=== PATIENT | male | born 1965 | race Caucasian/White ===

== ENCOUNTER 2023-03-06 05:20 | Inpatient (IN) ==
--- NOTE | 2023-03-06 05:31 | Emergency Department Note ---
History of Present Illness General Chief complaint: Chest Pain Stated complaint: CHEST TIGHTNESS Time Seen by Provider: 03/06/23 05:29 History of Present Illness This 57-year-old male patient presents to the emergency department for evaluation of chest pain. He reports frontal chest tightness and pressure that woke him from sleep at 3 AM. He states that the symptoms resolved since coming to the ER. He states that he is a smoker and is typically short of breath with a cough at baseline. He does not use his albuterol inhaler very often because it does not work for him per patient. No change in his baseline cough and SOB per patient. The chest pain is new and abnormal. No fevers or URI symptoms. Has not taken any aspirin today. Not on any blood thinners. Denies abdominal pain, nausea, or vomiting. Denies any other symptoms. Does not take any erectile dysfunction medications. Denies previous cardiac problems. Has never had a cardiac workup per patient. Grandfather with DE and heart problems. Mother and father and siblings without heart problems. 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 The patient denies recent injury/trauma/surgery. Denies any personal or family history of blood clots or bleeding disorders. Denies any hormonal medication use. Denies any hemoptysis or calf pain/swelling. Home Medications Medication Instructions Recorded Confirmed Type albuterol sulfate 90 mcg/actuation 2 puff inhalation Q4H PRN 08/15/20 07/29/22 History aerosol inhaler Shortness Of Breath Or Wheezing lisinopril 10 mg tablet 10 mg PO QAM 08/15/20 07/29/22 History hydrochlorothiazide 25 mg tablet 25 mg PO QAM 06/24/21 07/29/22 History ibuprofen 200 mg tablet (Advil) 400 mg PO Q6H PRN Pain 06/24/21 07/29/22 History gabapentin 100 mg capsule 100 mg PO TID 07/29/22 07/29/22 History Allergies Allergy/AdvReac Type Severity Reaction Status Date / Time No Known Allergies Allergy Verified 07/29/22 15:31 Past Med/Surg History Medical History Asthma Stable Chronic obstructive pulmonary disease Stable History of shingles 05/2022, currently still taking gabapentin for chronic right eye irritation/pain from shingles Hx of seasonal allergies Hypertension Spinal stenosis Surgical History History of back surgery History of esophagogastroduodenoscopy (EGD) Hx of arthroscopic knee surgery Left Hx of foot surgery Left Hx of inguinal hernia repair Social History Smoking Status: Current every day smoker Tobacco Type: Cigarettes Cigarettes Per Day: 30 cigs/day; Second Hand Exposure: No; Do You Dip or Chew Tobacco: No (Quit 10+ years ago); Hx Alcohol Use: Yes Alcohol type: beer Hx Substance Use: No Preferred Language: Amharic Communication Ability: Effective Formulation Chemist Required: No Beliefs That Will Affect Care: None Current Living Situation: Alone Current Living Situation Comment: mom lives in own portion of the home Feels Safe at Home: Yes Assistive Devices: Glasses Review of Systems See HPI for pertinent positives & negatives. Physical Exam Vital Signs Vital Signs - 24 hr 03/06/23 05:24 03/06/23 05:45 03/06/23 06:34 Temperature 36.6 C Temperature Source Temporal Artery Scan Pulse Rate 120 H 106 H Pulse Rate [Apical] 94 H Respiratory Rate 16 20 Respiratory Effort / Characteristics Non-Labored Respiratory Depth Normal Blood Pressure 135/84 Blood Pressure [Right Arm] 169/112 H Blood Pressure Mean 101 Blood Pressure Mean [Right Arm] 131 Pulse Oximetry 96 95 Oxygen Delivery Method Room Air Room Air Sepsis Recent Fever Within 48 Hours No Sepsis New/Unexplained Change in Mental Status No Sepsis Action Taken by Nursing No Action Required 03/06/23 06:37 Temperature Temperature Source Pulse Rate 99 H Pulse Rate [Apical] Respiratory Rate 20 Respiratory Effort / Characteristics Respiratory Depth Blood Pressure Blood Pressure [Right Arm] Blood Pressure Mean Blood Pressure Mean [Right Arm] Pulse Oximetry 97 Oxygen Delivery Method Room Air Sepsis Recent Fever Within 48 Hours Sepsis New/Unexplained Change in Mental Status Sepsis Action Taken by Nursing Vital Signs: Vitals are noted on the nurse's note and reviewed by myself. GENERAL: Non toxic in appearance and in no acute distress. SKIN: The skin was without obvious rashes, erythema, edema, or bruising. Capillary reflex less than 2 seconds. HEAD: Normocephalic, atraumatic. EARS: External auditory canals clear, tympanic membrane pearly mendoza without er ythema or effusion. No tragus tenderness. No mastoid tenderness. EYES: Pupils equal round and reactive to light and accommodation. Conjunctivae without injection, sclerae without icterus. Extraocular movements intact. NOSE: Patent, turbinates inflamed with no discharge. No sinus tenderness. MOUTH: Mucous membranes moist. Airway patent, uvula midline. Tonsils are not enlarged and not erythematous without exudate. Pharynx without postnasal drip. No evidence for peritonsillar abscess. NECK: Supple without nuchal rigidity. No lymphadenopathy. HEART: Tachycardia without murmurs gallops or rubs. LUNGS: Clear to auscultation bilaterally without wheezes, rales or rhonchi. No accessory muscle use or retractions. ABDOMEN: Positive bowel sounds x 4. Normal tympanic percussion. Soft, nontender, without masses or organomegaly. Negative Pete sign. No guarding or rigidity. NEURO: Patient was alert and oriented to person place and time. Course Administered Medications Discontinued Medications Aspirin (Aspirin Chew 324 Mg) 324 mg PO NOW STA Stop: 03/06/23 05:48 Last Admin: 03/06/23 05:53 Dose: 324 mg Documented By: LINDA Sodium Chloride (Nss) 500 mls @ 999 mls/hr IV .Q31M STA Stop: 03/06/23 06:17 Last Infusion: 03/06/23 06:33 Dose: 0 mls/hr Documented By: Admin: 03/06/23 05:54 Dose: 999 mls/hr Documented By: LINDA Ioversol (Optiray 320 125ml) 120 ml IV ONCE ONE Stop: 03/06/23 07:31 Last Admin: 03/06/23 07:30 Dose: 120 ml Documented By: FERCHO Medical Decision Making Differential Diagnosis Differential diagnosis includes angina, DE, pericarditis, myocarditis, aortic dissection, pleurisy, pneumothorax, PE, pneumonia, pneumomediastinum, esophagitis, esophageal spasm, GERD, perforated esophagus, perforated duodenal/gastric ulcer, pancreatitis, cholecystitis, costochondritis, musculoskeletal, bronchitis, URI, or others. Laboratory Data Attestation: I reviewed the patient's lab results. 03/06/23 05:30 03/06/23 05:30 Lab Results 06/16/23 06/16/23 06/16/23 Range/Units 05:30 05:30 05:30 WBC 6.36 (4.8-10.8) K/ul RBC 3.88 L (4.70-6.10) M/uL Hgb 14.3 (14.0-18.0) g/dl Hct 40.8 L (42.0-52.0) % MCV 105.2 H (80.0-100.0) fL MCH 36.9 H (25.0-34.0) pg MCHC 35.0 (32.0-36.0) g/dL RDW Std Deviation 49.1 H (36.4-46.3) fL RDW Coeff of Rogelio 12.7 (11.5-14.5) % Plt Count 271 (130-400) K/uL MPV 9.7 (9.4-12.4) fL Immature Gran % (Auto) 0.5 % Neut % (Auto) 59.5 % Lymph % (Auto) 27.2 % [place] % (Auto) 10.2 % Eos % (Auto) 1.7 % Baso % (Auto) 0.9 % Neut # (Auto) 3.78 (1.40-6.50) K/uL Lymph # (Auto) 1.73 (1.2-3.4) K/uL [place] # (Auto) 0.65 H (0.11-0.59) K/uL Eos # (Auto) 0.11 (0-0.50) K/uL Baso # (Auto) 0.06 (0-0.2) K/uL Immature Gran # (Auto) 0.03 (0.01-0.20) K/uL PT 10.1 (9.0-12.0) Seconds INR 0.9 (0.9-1.1) APTT 23.4 (21.0-31.0) Seconds PTT Ratio 0.8 Sodium TNP Potassium TNP Chloride 105 (98-107) mmol/L Carbon Dioxide 21 (21-32) mmol/L Anion Gap TNP BUN 14 (6-23) mg/dl Creatinine 1.21 (0.6-1.4) mg/dl Est Cr Clr Drug Dosing 86.6 ml/min Est GFR ( Amer) 75.5 ml/min Est GFR (Non-Af Amer) 65.1 ml/min BUN/Creatinine Ratio 11.6 (10-20) Glucose 94 (70-99(Fasting)) mg/dl Calcium 9.3 (8.6-10.3) mg/dl Total Bilirubin 0.4 (0.2-1.0) mg/dl AST TNP ALT 50 (7-52) U/L Alkaline Phosphatase 67 (34-104) U/L Troponin I High Sens 19.5 (0-20) pg/ml Total Protein 7.7 (6.0-8.3) gm/dl Albumin 4.1 (3.4-5.0) gm/dl Globulin 3.6 (2.5-4.0) gm/dl Albumin/Globulin Ratio 1.1 (0.9-2) Lipase 63 (11-82) U/L SARS-CoV-2 (PCR) (Negative) Influenza Type A (PCR) (Neg) Influenza Type B (PCR) (Neg) RSV (RT-PCR) (Neg) 03/06/23 Range/Units 05:55 WBC (4.8-10.8) K/ul RBC (4.70-6.10) M/uL Hgb (14.0-18.0) g/dl Hct (42.0-52.0) % MCV (80.0-100.0) fL MCH (25.0-34.0) pg MCHC (32.0-36.0) g/dL RDW Std Deviation (36.4-46.3) fL RDW Coeff of Rogelio (11.5-14.5) % Plt Count (130-400) K/uL MPV (9.4-12.4) fL Immature Gran % (Auto) % Neut % (Auto) % Lymph % (Auto) % [place] % (Auto) % Eos % (Auto) % Baso % (Auto) % Neut # (Auto) (1.40-6.50) K/uL Lymph # (Auto) (1.2-3.4) K/uL [place] # (Auto) (0.11-0.59) K/uL Eos # (Auto) (0-0.50) K/uL Baso # (Auto) (0-0.2) K/uL Immature Gran # (Auto) (0.01-0.20) K/uL PT (9.0-12.0) Seconds INR (0.9-1.1) APTT (21.0-31.0) Seconds PTT Ratio Sodium Potassium Chloride (98-107) mmol/L Carbon Dioxide (21-32) mmol/L Anion Gap BUN (6-23) mg/dl Creatinine (0.6-1.4) mg/dl Est Cr Clr Drug Dosing ml/min Est GFR ( Amer) ml/min Est GFR (Non-Af Amer) ml/min BUN/Creatinine Ratio (10-20) Glucose (70-99(Fasting)) mg/dl Calcium (8.6-10.3) mg/dl Total Bilirubin (0.2-1.0) mg/dl AST ALT (7-52) U/L Alkaline Phosphatase (34-104) U/L Troponin I High Sens (0-20) pg/ml Total Protein (6.0-8.3) gm/dl Albumin (3.4-5.0) gm/dl Globulin (2.5-4.0) gm/dl Albumin/Globulin Ratio (0.9-2) Lipase (11-82) U/L SARS-CoV-2 (PCR) NEGATIVE (Negative) Influenza Type A (PCR) Negative (Neg) Influenza Type B (PCR) Negative (Neg) RSV (RT-PCR) Negative (Neg) MDM Narrative I examined the patient. An IV lock was placed and labs were drawn. He was given 500 mL normal saline solution bolus. He was given aspirin 324 mg p.o. chewed. The chest pain started at 3 AM, but had resolved by the time he presented to the emergency department. EKG was interpreted by myself as sinus tachycardia at 115 beats per minute with left axis deviation and right bundle branch block, but no acute ST or T wave changes. Continuous monitoring and evaluation advisor: Or messi was placed for continuous monitoring and evaluation advisor. Patient was placed on the monitoring and evaluation advisor and continuous pulse ox. Patient was noted to be in sinus tachycardia at an initial rate of 120 bpm per my interpretation. CBC without leukocytosis or anemia. Coags normal. CMP without acute abnormalities, but redraw of electrolytes still pending. Lipase normal. COVID, influenza, and RSV are negative. First high-sensitivity troponin normal. The patient was tachycardic upon arrival with new onset of chest pain with history of chronic cough and shortness of breath. 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 There is concern for PE. Therefore, CTA of the chest with contrast was ordered. Repeat high-sensitivity troponin was also ordered. However, due to change of shift, the patient's care was transferred to Hamida Nix PA-C. Please refer to her dictation for further details. The patient's care was transferred in stable condition. Impression & Plan Chest pain Discharge Plan Visit Data Chief Complaint: Chest Pain Stated Complaint: CHEST TIGHTNESS ED Provider: Eliana Bryan ED Midlevel Provider: David Nix Discharge Problem: Chest pain Forms Stand Alone Forms: [email or web address] Prescriptions Prescriptions: No Action lisinopril 10 mg tablet 10 mg PO QAM albuterol sulfate 90 mcg/actuation HFA aerosol inhaler 2 puff inhalation Q4H PRN (Reason: Shortness Of Breath Or Wheezing) hydrochlorothiazide 25 mg tablet 25 mg PO QAM ibuprofen [Advil] 200 mg Tablet 400 mg PO Q6H PRN (Reason: Pain) gabapentin 100 mg Capsule 100 mg PO TID Referrals Referrals: Omer Wayne MD [Primary Care Provider] -
[2023-03-06] MEDS ORDERED: SODIUM CHLORIDE 0.9% 500 ML IV STA (05:47)
[2023-03-06] MEDS ORDERED: ASPIRIN CHEW 324 MG PO STA (05:47)
[2023-03-06 06:29] LABS: Basophils # (auto) 0.06 K/uL (0-0.2); Basophils % (auto) 0.9 %; Eosinophils # (auto) 0.11 K/uL (0-0.50); Eosinophils % (auto) 1.7 %; Hematocrit (blood only) 40.8 % (42.0-52.0); Hemoglobin 14.3 g/dl (14.0-18.0); Immature Granulocytes # (auto) 0.03 K/uL (0.01-0.20); Immature Granulocytes % (auto) 0.5 %; Lymphocytes # (auto) 1.73 K/uL (1.2-3.4); Lymphocytes % (auto) 27.2 %; Mean Corpuscular Hemoglobin 36.9 pg (25.0-34.0); Mean Corpuscular Volume 105.2 fL (80.0-100.0); Mean Platelet Volume 9.7 fL (9.4-12.4); Monocytes # (auto) 0.65 K/uL (0.11-0.59); Monocytes % (auto) 10.2 %; Neutrophils # (auto) 3.78 K/uL (1.40-6.50); Neutrophils % (auto) 59.5 %; Platelet Count 271 K/uL (130-400); RDW Coefficient of Variation 12.7 % (11.5-14.5); RDW Standard Deviation 49.1 fL (36.4-46.3); Red Blood Count 3.88 M/uL (4.70-6.10); White Blood Count 6.36 K/ul (4.8-10.8)
[2023-03-06 06:47] LABS: Influenza A virus by PCR Negative (Neg); Influenza B virus by PCR Negative (Neg); RSV by PCR Negative (Neg); SARS CoV2 RNA(COVID-19) Ceph NEGATIVE (Negative)
[2023-03-06 06:56] LABS: INR 0.9 (0.9-1.1); Partial Thromboplastin Ratio 0.8; Partial Thromboplastin Time 23.4 Seconds (21.0-31.0); Prothrombin Time 10.1 Seconds (9.0-12.0)
[2023-03-06 07:08] LABS: Alanine Aminotransferase 50 U/L (7-52); Albumin Globulin Ratio 1.1 (0.9-2); Albumin Level 4.1 gm/dl (3.4-5.0); Alkaline Phosphatase 67 U/L (34-104); BUN Creatinine Ratio 11.6 (10-20); Bilirubin,Total 0.4 mg/dl (0.2-1.0); Blood Urea Nitrogen 14 mg/dl (6-23); Calcium 9.3 mg/dl (8.6-10.3); Carbon Dioxide 21 mmol/L (21-32); Chloride 105 mmol/L (98-107); Creatinine Clr Calc Pharmacy 86.6 ml/min; Est GFR (African American) 75.5 ml/min; Est GFR (Non-African American) 65.1 ml/min; Globulin 3.6 gm/dl (2.5-4.0); Glucose 94 mg/dl (70-99(Fasting)); Lipase 63 U/L (11-82); Total Protein 7.7 gm/dl (6.0-8.3); Troponin I High Sensitivity 19.5 pg/ml (0-20)
[2023-03-06] MEDS ORDERED: OPTIRAY 320 125ml IV ONE (07:30)
--- NOTE | 2023-03-06 07:30 | Emergency Department Note ---
ED Visit Note ED note: Received this patient in signout at change of shift at 0720 from Pricilla Beck PA-C. Briefly patient is a 57-year-old male with past medical history significant for hypertension, tobacco abuse, COPD, who presents emergency department for evaluation of chest pain. Pain reportedly woke him from sleep around 0300. Please refer to her dictation for the complete history, physical exam and ED course to this point. Initial troponin was within normal limits. At change of shift, repeat 2-hour troponin and CTA of the chest were is pending. Chest CT per my interpretation shows no evidence for pulmonary embolus. Emphysematous changes are noted and stable pulmonary nodules which do not require follow-up. Laboratory studies were reviewed. A few of his electrolytes needed to be recollected, and on my interpretation of the repeat studies, no significant electrolyte imbalance noted. Normal renal functions. No significant transami nitis. His repeat high-sensitivity troponin was elevated at 84.5, up from 19.5 on initial. Patient was reviewed with attending physician, Dr. Bryan, heparin was ordered. Test results were discussed with the patient, and admission/observation for further cardiac work-up was recommended. He was in agreement. Case discussed with ED supervisor case loading and consultation placed with the [facility] service. Patient was reviewed with Yenny Arvizu PA-C for further care and managment. Repeat EKG at 0849 per my interpretation did not show any evidence for acute ischemic changes. It is unchanged from initial EKG from 0530. DIAGNOSIS: Precordial chest pain, elevated troponin Risk - HEART Scoring HEART Score for Major Cardiac Events History: Slightly Suspicious EKG: Normal Age: 45-64 Years of Age Risk Factors: >2 Risk Factors Initial Troponin: Normal Limit Total Points: 3 Risk Level: Low Risk for Major Adverse Cardiac Event HEART Score Interpretation: Score interpretation (as per derivation study): HEART Adverse Cardiac Score Event Risk Management 0-3 0.9-1.7% In the HEART Score study, these patients were discharged. 4-6 12-16.6% In the HEART Score study, these patients were admitted to the hospital. 7-10 50-65% In the HEART Score study, these patients were candidates for early invasive measurements. Original Source: 1. Oswaldo AJ, Johnny BE, Adis BARON. Chest pain in the emergency room: value of the HEART score. Neth Heart J. 2008; 16(6):191-6.
--- NOTE | 2023-03-06 07:51 | CT Scan Report ---
CT angio chest PE protocol CLINICAL HISTORY: Chest Pain, eval for PE TECHNIQUE: Multidetector row helical CT of the chest was performed with angiographic protocol. Agustin l and sagittal reformations were obtained. Coronal and sagittal MIPS were obtained from the axial zandra a set and were submitted for review. Automated dose lowering techniques and/or adjustment according to patient size were utilized for this exam. Comparison: Comparison is made to CT chest 06/24/2021 FINDINGS: Lungs and pleura: Diffuse centrilobular emphysema is seen most prominent in the upper lobes. Interval stability of a 4 mm nodule in the left lung base (series 5 image 9) and a 6 mm nodule in the right l ower lobe (image 91). Heart and pericardium: Heart size is normal. No pericardial effusion. Vessels: No evidence of pulmonary embolism. Ascending aorta is mildly prominent measuring up to 42 mm . Mediastinum and ashley: Unremarkable. Chest wall and lower neck: Unremarkable. Abdomen: A hiatal hernia is seen. Bones: Degenerative changes in the thoracic spine. IMPRESSION: 1. No pulmonary embolus is seen. 2. Emphysema. Stable pulmonary nodules which do not require follow-up by Fleischner criteria. 3. Additional findings as above. ACT 112: Negative or not required by law. Electronically signed by: Sma Mayorga M.D. 03/06/2023 7:48 AM
[2023-03-06 08:32] LABS: Troponin I High Sensitivity 84.5 pg/ml (0-20)
[2023-03-06] MEDS ORDERED: Heparin IV Adult Wt-Based Low-Dose WITH Bolus Protocol STA (08:42)
[2023-03-06] MEDS ORDERED: HEPARIN SOD (PORCINE) 1000 UNIT/ML IV ONE ×3 (08:57→15:35)
[2023-03-06] MEDS: HEPARIN SODIUM/DEXTROSE 25,000 UNITS/500 ML BAG IV SCH (09:06)
--- NOTE | 2023-03-06 09:42 | History & Physical Report ---
Date of Service March 06, 2023 Assessment & Plan (1) Chest pain: (2) Hypertension: Plan: - Admit to tele for observation for r/o - Trend cardiac biomarkers, initial set was negative 19-->85, started on heparin gtt in the ER, cont - EKG reviewed as above - Check 2 D echo - Cardiology consulted - Dr. Marlow - BP is currently elevated at 170/113, will give Lopressor 2.5 mg IV and resume HCTZ 25 mg and lisionpril 10 mg now, start metoprolol 12.5 mg p.o. twice daily pending cardiology recommendations - Baby aspirin ordered daily, received 325 mg today, give atorvastatin 80 mg now for plaque stabilization - Check A1c and lipid panel with a.m. labs for risk stratification - PT/OT consulted (3) Chronic obstructive pulmonary disease: (4) Tobacco dependence: Plan: - CTA chest completed showing emphysema, no PE, stable pulmonary nodules. - Tobacco cessation counseled at bedside, patient reports he has quit cold turkey with smoking cigarettes previously, can consider nicotine patch tomorrow if necessary, hold for now due to being a vasoconstrictor and here for acute chest heaviness and ACS rule out - Consider pulmonary follow-up as an outpatient - Patient will require refill on albuterol inhaler at time of discharge as he is currently out at home (5) Obesity (BMI 30.0-34.9): Plan: -Lifestyle, diet, exercise modification discussed at the bedside, patient reports that he is not physically active at all and would benefit from 20 minutes walking per day -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 Encouraged him to meal prep at least 2 meals on weekends to aid in healthy meals during the week due to work schedule. DVT ppx: - teds, scds, heparin drip CODE: Full code Dispo: From home, likely to remain in the hospital x 1-2 days A total of 75 minutes were spent with greater than 50% of that time face to face with the patient, personally reviewing all current laboratories, imaging studies, past medication reconciliation, outpatient chart review, and discussion with specialists to collaborate care for the patient with attending. Please see attending documentation for corrections and/or additions. History of Present Illness Chief Complaint: Chest heaviness Primary Care Provider: Omer Wayne MD This is a 57 you M with PMHx of HTN, HLD, peripheral neuropathy, hx shingles involving the R eye, Chronic lumbar back pain, who presents with chest heaviness which started at 0330, nonradiating and was not associated with shortness of breath. It scared him and he presented here. He has had chest pain before but not sought out medical attention. He decided this pain was bad enough that he did not want to try driving a truck to work to [employer] today. Pt notes that he is chronically short of breath with minimal activities within the past year. He does smoke 1 pack/day, has smoked since age 10. Last July he quit for 2 months due to anticipated back surgery however his insurance then denied coverage of the surgery, and he resumed smoking, currently back up to 1 pack/day. He states possibly having COVID about a year ago, he was not formally tested but feels that his breathing has not been good since that timeframe. He does not require any supplemental O2, does not use any inhalers as he previously had an albuterol inhaler but ran out of it. He also admits to being out of HCTZ since this past Thursday, and has noticed increased swelling in his legs bilaterally. 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 Pt reports that he has chronic back pain which is off and on, notes that when he stands on his left leg for more than 5 minutes it becomes numb. Most recently has fallen about 2 months ago, and the first time he fell was last June. He has had lumbar spinal surgery in 2010, has had a left foot bunion surgery, and reports that when he fell he thinks he may have injured his foot again. He denies any recent falls. Pt notes he is also out of gabapentin and was using it for hx of shingles on his right forehead and R eye pain, postherpetic pain bothers him daily. Patient lives at home with his mom who is 85. Family Hx: Denies Denies Family Hx of cancer, stroke Father: high blood pressure Social Hx: smokes 1ppd since age 10, previously quit for 2 months in Nov to have back surgery, however his insurance denied it and he did not ultimately have that surgery done. Admits to drinking alcohol on weekends-does not elaborate. Allergies Allergy/AdvReac Type Severity Reaction Status Date / Time No Known Allergies Allergy Verified 07/29/22 15:31 Home Medications Medication Instructions Recorded Confirmed Type albuterol sulfate 90 mcg/actuation 2 puff inhalation Q4H PRN 08/15/20 03/06/23 History aerosol inhaler Shortness Of Breath Or Wheezing lisinopril 10 mg tablet 10 mg PO QAM 08/15/20 03/06/23 History hydrochlorothiazide 25 mg tablet 25 mg PO QAM 06/24/21 03/06/23 History ibuprofen 200 mg tablet (Advil) 400 mg PO Q6H PRN Pain 06/24/21 03/06/23 History gabapentin 100 mg capsule 100 mg PO TID 07/29/22 03/06/23 History Past Med/Surg History Medical History Asthma Stable Chronic obstructive pulmonary disease Stable History of shingles 05/2022, currently still taking gabapentin for chronic right eye irritation/pain from shingles Hx of seasonal allergies Hypertension Spinal stenosis Surgical History History of back surgery History of esophagogastroduodenoscopy (EGD) Hx of arthroscopic knee surgery Left Hx of foot surgery Left Hx of inguinal hernia repair Social History Smoking Status: Current every day smoker Tobacco Type: Cigarettes Cigarettes Per Day: 30 cigs/day; Second Hand Exposure: No; Do You Dip or Chew Tobacco: No; Tobacco Cessation Education Requested by Patient: No Hx Alcohol Use: Yes Alcohol type: beer Hx Substance Use: No Preferred Language: Lithuanian Communication Ability: Effective 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 Beliefs That Will Affect Care: None Current Living Situation: Family Current Living Situation Comment: mom lives in own portion of the home Feels Safe at Home: Yes Safety Concerns: Feels Safe At This Time Assistive Devices: None Review of Systems Review of Systems: Constitutional: No fever, sweats or chills Eyes: No diplopia, no worsening or blurred vision ENT: normal hearing, no trouble swallowing Respiratory: + Chronic cough, no sputum, dyspnea at rest or on exertion Cardiovascular: As per HPI, no current chest pain, tightness or palpitations Abdomen: No pain, nausea, vomiting, diarrhea or constipation Musculoskeletal: No joint pain, calf pain, + bilateral lower leg swelling Neurologic: No weakness, numbness/tingling, or balance problems Psychiatric: No anxiety or depression Skin: No rash or itch Physical Exam Physical Exam: General: awake, alert, no apparent distress, obese with BMI of 32.9 Head: Normocephalic, atraumatic ENT: PERRL, EOMI, no pharyngeal exudate, mucous membranes moist Chest: Clear to auscultation, chest pain is nonreproducible on palpation, on room air, no adventitious breath sounds Cardiac: Sinus tach with heart rate in the 90s, no murmur, no JVD, normal peripheral pulses, good capillary refill Abdominal: NABS x 4 quadrants, soft, nondistended, nontender to palpation, no rebound or guarding Extremities: Normal inspection, 1+ peripheral edema bilaterally, no erythema, calfs nontender to palpation Psych: Anxious mood and affect Neuro: AAO x 3, strength intact bilaterally and rated 5/5, no motor deficits, speech is clear, no peripheral sensory deficits Results & Data Results & Data Vital Signs (Past 12 Hours) Vital Signs Temp Pulse Pulse Resp BP BP Pulse Ox 03/06/23 09:10 98 H 14 03/06/23 09:00 86 19 03/06/23 09:00 175/108 H 03/06/23 08:50 91 H 17 96 03/06/23 08:40 103 H 19 03/06/23 08:30 91 H 21 96 03/06/23 08:00 88 16 154/98 H 96 03/06/23 07:00 98 H 23 137/103 H 97 03/06/23 06:37 99 H 20 97 03/06/23 06:34 94 H 20 169/112 H 95 03/06/23 05:45 106 H 03/06/23 05:24 36.6 C 120 H 16 135/84 96 O2 Del Method 03/06/23 09:10 03/06/23 09:00 03/06/23 09:00 03/06/23 08:50 03/06/23 08:40 03/06/23 08:30 03/06/23 08:00 03/06/23 07:00 03/06/23 06:37 Room Air 03/06/23 06:34 Room Air 03/06/23 05:45 03/06/23 05:24 Room Air Laboratory Results 03/06/23 03/06/23 03/06/23 07:07 07:07 05:55 WBC RBC Hgb Hct MCV MCH MCHC RDW Std Deviation RDW Coeff of Rogelio Plt Count MPV Immature Gran % (Auto) Neut % (Auto) Lymph % (Auto) [place] % (Auto) Eos % (Auto) Baso % (Auto) Neut # (Auto) Lymph # (Auto) [place] # (Auto) Eos # (Auto) Baso # (Auto) Immature Gran # (Auto) PT INR APTT PTT Ratio Sodium 135 L Potassium 4.0 Chloride Carbon Dioxide Anion Gap BUN Creatinine Est Cr Clr Drug Dosing Est GFR ( Amer) Est GFR (Non-Af Amer) BUN/Creatinine Ratio Glucose Calcium Total Bilirubin AST 41 H ALT Alkaline Phosphatase Troponin I High Sens Cancelled 84.5 H* D Total Protein Albumin Globulin Albumin/Globulin Ratio Lipase SARS-CoV-2 (PCR) NEGATIVE Influenza Type A (PCR) Negative Influenza Type B (PCR) Negative RSV (RT-PCR) Negative 03/06/23 03/06/23 03/06/23 05:30 05:30 05:30 WBC 6.36 RBC 3.88 L Hgb 14.3 Hct 40.8 L MCV 105.2 H MCH 36.9 H MCHC 35.0 RDW Std Deviation 49.1 H RDW Coeff of Rogelio 12.7 Plt Count 271 MPV 9.7 Immature Gran % (Auto) 0.5 Neut % (Auto) 59.5 Lymph % (Auto) 27.2 [place] % (Auto) 10.2 Eos % (Auto) 1.7 Baso % (Auto) 0.9 Neut # (Auto) 3.78 Lymph # (Auto) 1.73 [place] # (Auto) 0.65 H Eos # (Auto) 0.11 Baso # (Auto) 0.06 Immature Gran # (Auto) 0.03 PT 10.1 INR 0.9 APTT 23.4 PTT Ratio 0.8 Sodium TNP Potassium TNP Chloride 105 Carbon Dioxide 21 Anion Gap TNP BUN 14 Creatinine 1.21 Est Cr Clr Drug Dosing 86.6 Est GFR ( Amer) 75.5 Est GFR (Non-Af Amer) 65.1 BUN/Creatinine Ratio 11.6 Glucose 94 Calcium 9.3 Total Bilirubin 0.4 AST TNP ALT 50 Alkaline Phosphatase 67 Troponin I High Sens 19.5 Total Protein 7.7 Albumin 4.1 Globulin 3.6 Albumin/Globulin Ratio 1.1 Lipase 63 SARS-CoV-2 (PCR) Influenza Type A (PCR) Influenza Type B (PCR) RSV (RT-PCR) Diagnostic Findings Chest CTA 03/06/23 05:48 CT angio chest PE protocol CLINICAL HISTORY: Chest Pain, eval for PE TECHNIQUE: Multidetector row helical CT of the chest was performed with angiographic protocol. Coronal and sagittal reformations were obtained. Coronal and sagittal MIPS were obtained from the axial data set and were submitted for review. Automated dose lowering techniques and/or adjustment according to patient size were utilized for this exam. Comparison: Comparison is made to CT chest 06/24/2021 FINDINGS: Lungs and pleura: Diffuse centrilobular emphysema is seen most prominent in the upper lobes. Interval stability of a 4 mm nodule in the left lung base (series 5 image 9) and a 6 mm nodule in the right lower lobe (image 91). Heart and pericardium: Heart size is normal. No pericardial effusion. Vessels: No evidence of pulmonary embolism. Ascending aorta is mildly prominent measuring up to 42 mm. Mediastinum and ashley: Unremarkable. Chest wall and lower neck: Unremarkable. Abdomen: A hiatal hernia is seen. Bones: Degenerative changes in the thoracic spine. IMPRESSION: 1. No pulmonary embolus is seen. 2. Emphysema. Stable pulmonary nodules which do not require follow-up by Fleischner criteria. 3. Additional findings as above. ACT 112: Negative or not required by law. Electronically signed by: Sam Mayorga M.D. 03/06/2023 7:48 AM ECG Additional Comments: Both EKGs completed today reviewed personally, no signs of ST wave inversion or signs of ischemia, appears to be in sinus tach, old right bundle branch block Code Status & VTE Plan Code Status Full code-discussed with the patient at bedside VTE Prophylaxis Plan VTE Prophylaxis will be ordered: Yes Supervising Physician Co-Signing Physician Notes I have seen and examined the patient and have discussed the case with the provid er above. I agree with the assessment and plan as stated with the following exceptions. 57 yo smoker presents with chest discomfort and uncontrolled blood pressure 2/2 noncompliance with medications. He reports this discomfort is now gone but woke him up from sleep this morning. He does reports a history of chest discomfort in the past and progressive dyspnea on exertion from a po ssible covid infection that I didnt know I had. Denies respiratory symptoms. Smokes consistently. He was given aspirin 325mg in the ER. Symptoms had reportedly resolved prior to this. Of note, he is clearly uncomfortable being here and appears anxious. This may be driving his blood pressure up to a certain extent. Exam reveals WNWD man in NAD. Skin is warm and dry, and he is mentating c learly. Cardiac exam reveals no peripheral edema. S1/2 heard on auscultation without evidence of murmur, regular rate and rhythm heard. He has no carotid bruits and 2+ peripheral pulses in radial AA. No chest pain to palpation. Lungs are clear to auscultation throughout. Extremities are warm and well perfused. CTA negative for PE or acute intrapulmonary process. Emphysema noted. EKG reveals NSR with sinus arrhythmia and right bundle branch block. No ST deviations that would suggest acute ischemia. NSTEMI Elevated tropnonin Uncontrolled hypertension Tobacco dependence Agree with restarting his home antihypertensives now along with Lopressor 2.5mg IV and rechecking blood pressure. Will plan to add nitro paste if BP is still elevated. Heparin drip started in the ER with ASA 325mg given and Lipitor 80mg for plaque stabilization. Cont with beta-yadiel therapy. Screening lipid panel and A1C in am. Appreciate cardiology consultation for assistance with diagnosis and risk stratification if ACS is ruled out. Cont to monitor on telemetry. Smoking cessation strongly recommended. Withholding nicotine supplementation while ruling out ACS. DO Eleuterio (1) Chest pain Chest pain type: unspecified Qualified Code(s): R07.9 - Chest pain, unspecified
[2023-03-06] MEDS ORDERED: hydroCHLOROthiazide 25 MG TAB PO STA (09:57)
[2023-03-06] MEDS ORDERED: METOPROLOL TARTRATE 1 MG/ML VIAL IV STA (09:57)
[2023-03-06] MEDS ORDERED: ATORVASTATIN 40 MG TAB PO ONE (10:30)
[2023-03-06] MEDS ORDERED: ALBUTEROL HFA 8 GM INHALER INH PRN (10:46)
[2023-03-06] MEDS ORDERED: lisinopril 10 MG TAB PO STA (10:47)
[2023-03-06] MEDS ORDERED: MoRPHine SULFATE 2 MG/ML CARP IV PRN (11:22)
[2023-03-06] MEDS ORDERED: NITROGLYCERIN SL 0.4 MG/TAB TAB SL PRN (11:22)
[2023-03-06] MEDS ORDERED: ONDANSETRON INJ 2 MG/ML 2 ML VIAL IV PRN (11:22)
--- NOTE | 2023-03-06 11:35 | Electrocardiogram Report ---
Test Reason : Blood Pressure : / mmHG Vent. Rate : 115 BPM Atrial Rate : 115 BPM P-R Int : 164 ms QRS Dur : 120 ms QT Int : 342 ms P-R-T Axes : 043 -39 022 degrees QTc Int : 473 ms Sinus tachycardia Left axis deviation Low voltage QRS Right bundle branch block possible Inferior infarct , age undetermined Abnormal ECG When compared with ECG of 31-JUL-2022 11:37, QRS duration has decreased Inferior infarct is now Present Nonspecific T wave abnormality, worse in Anterior leads Confirmed by Sharif Becker ([id number]) on 03/06/2023 11:35:02 AM Referred By: REFERRED SELF Confirmed By:Joe Becker
--- NOTE | 2023-03-06 11:42 | Cardiology Consultation ---
Date of Consultation March 06, 2023 Assessment & Plan (1) Chest pain: (2) Hypertension: (3) Elevated troponin: (4) Abnormal EKG: (5) Tobacco dependence: Plan Patient admitted for two episodes of chest tightness awakening him from sleep. Initial troponin was unremarkable, repeat increased to 84. 3rd set pending for early afternoon. EKG demonstrated NSR with RBBB and possible old inferior infarct, new compared to Jul 2022 EKG. He is currently chest pain free. Agree with ASA, statin, and IV heparin initiated. His BP is uncontrolled since admission, which could be causing his chest tightness and elevated troponin. He was non compliant with home HCTZ over the last week. home dose HCTZ and lisinopril resumed. Will add carvedilol 6.25 mg BID as well given uncontrolled hypertension and mildly elevated troponin. echocardiogram ordered. Await 3rd set of troponin. Consider further evaluation with stress testing if echo and troponin are unremarkable (dobutamine only if BP is better) vs nuclear study. Further recommendations to come. Case discussed with Dr. Marlow I spent a total of 60 minutes on the date of service in preparation, delivery, and documentation of the care provided to this patient, excluding any time spent in the performance of separately billed services. Mone Woodruff PA-C Department of Cardiology, [facility] This chart was completed in part utilizing Speech Voice Recognition Software. Grammatical errors, random word insertions, pronoun errors, and incomplete sentences are an occasional consequence of this system due to software limitations, ambient noise, and hardware issues. Any formal questions or concerns about the content, text, or information contained within the body of this dictation should be directly addressed to the provider for clarification. Supervising Physician Co-Signing Physician Notes Supervising Physician Attestation: I have personally performed a history and physical examination on the patient. I agree with the physician physical laboratory assistant's findings and plan as documented with the following additions. Subjective: Patient seen and examined in room 214. He is accompanied by his mother. As noted, woke up early this morning with bandlike chest tightness. Went back to sleep for a brief amount of time, and woke up again with the same symptoms. This prompted him to come to the emergency room. Although his initial blood pressure of 524 this morning was 135/84, he has had multiple elevated readings in the interim. Blood pressure rechecked with the automated cuff personally at the time my assessment at 2 PM with measurement of 205/125. Exam: General appearance awake and orient x3 no acute distress Pulmonary: Lungs clear to auscultation bilaterally no rales rhonchi or wheezing Cardiovascular: Regular rhythm no murmurs rubs or gallops, no edema Neurologic no focal deficits Data: EKG tracings x2 revealed sinus rhythm with chronic right bundle branch block, no acute repolarization changes. Troponin 19.5 , 84.5 pg/ml. Echocardiogram performed today interviewed independently revealed moderate concentric left ventricular hypertrophy, normal LV wall motion without regional wall motion abnormalities, LVEF in the range of 60 to 65%. Mild aortic valve sclerosis without stenosis. Grade 1 diastolic dysfunction. Assessment and Plan: Chest discomfort-resolved Mildly elevated high-sensitivity troponin Hypertensive urgency Cardiac risk factors including age, cigarette smoking, family history of heart disease in father, grandfather (details unknown) -Patient tells me he has been without his HCTZ for 1 week. His elevation in blood pressure however is out of proportion to just missing this medication especially if he remained on his lisinopril. -As far he has received aspirin 324 mg x 1, metoprolol 2.5 mg IV x1 dose administered at 10:09 AM, lisinopril 10 mg at 12:10 PM, carvedilol 6.25 at 1307 -- Fortunately chest discomfort has resolved. At present, focus on optimizing blood pressure. -- Add topical nitroglycerin, 1 inch. Labetalol 10 mg IV x1. -- Patient is on full dose anticoagulation with heparin due to concerns for acute coronary syndrome, started in the emergency department. This will be continued for now. -- Further ischemic work-up to be determined after blood pressure optimized. Garret Marlow, DO History of Present Illness Reason for Consultation: Chest pain Requesting Physician: Dr. Mcclellan Attending Physician: Dr. Marlow History of Present Illness Patient is a 57-year-old male seen today in cardiac consultation at the request of Dr. Mcclellan after being admitted with chest pain. Inpatient and outpatient records reviewed. History includes: Hypertension Chronic tobacco abuse with COPD Chronic back pain Patient came to ER after having 2 episodes of chest tightness that awakened him from sleep through the night. No radiation or associated symptoms. the first episode occurred around 2:30-3:00. He fell back to sleep and symptoms returned, awakening him from sleep around 3:45. He just "didn't feel right" and got dressed and came to the ER for evaluation. He admits to worsening SOB with activity over the last 6 months. He smokes 1 PPD. He quit for a short time in Aug 2022 prior to potential back surgery, but he resumed smoking after his surgery was cancelled due to insurance reasons. He notes ongoing "smokers cough". No orthopnea, PND or edema. He admits he has not taken his home HCTZ in 1 week due to running out of medication and not refilling. Upon arrival in ER, BP was uncontrolled. His chest pain had resolved. EKG demonstrated sinus tach with RBBB, old inferior infarct and mild ST/T wave abnormality in anterior leads. When compared with prior EKG from Jul 2022, inferior infarct pattern is new. He was treated with IV metoprolol to aid with HTN and BP. Home dose lisinopril and HCTZ were ordered. Initial troponin was negative at 19.5, repeat increasing slightly to 84 pg/ml. 3rd troponin is pending for early afternoon. Started on ASA 81 mg daily, atorvastatin, and IV heparin in the ER while further testing is pending Chest CTA was without findings of PE. Pulm nodules noted with underlying em physema. At time of evaluation, BP remained uncontrolled. Patient reported chest pain free. No orthopnea, PND. Patient believes his symptoms are from the high BP due to non compliance with HCTZ. No dizziness. No headache or vision changes. No palpitations. He has chronic back pain but this is unchanged. He denies personal cardiovascular history. No prior echo or stress test. No family history of premature coronary artery disease. i Allergies Allergy/AdvReac Type Severity Reaction Status Date / Time No Known Allergies Allergy Verified 07/29/22 15:31 Home Medications Medication Instructions Recorded Confirmed Type albuterol sulfate 90 mcg/actuation 2 puff inhalation Q4H PRN 08/15/20 03/06/23 History aerosol inhaler Shortness Of Breath Or Wheezing lisinopril 10 mg tablet 10 mg PO QAM 08/15/20 03/06/23 History hydrochlorothiazide 25 mg tablet 25 mg PO QAM 06/24/21 03/06/23 History ibuprofen 200 mg tablet (Advil) 400 mg PO Q6H PRN Pain 06/24/21 03/06/23 History gabapentin 100 mg capsule 100 mg PO TID 07/29/22 03/06/23 History Patient History Medical History Asthma Stable Chronic obstructive pulmonary disease Stable History of shingles 05/2022, currently still taking gabapentin for chronic right eye irritation/pain from shingles Hx of seasonal allergies Hypertension Spinal stenosis Surgical History History of back surgery History of esophagogastroduodenoscopy (EGD) Hx of arthroscopic knee surgery Left Hx of foot surgery Left Hx of inguinal hernia repair Social History Smoking Status: Current every day smoker Tobacco Type: Cigarettes Cigarettes Per Day: 30 cigs/day; Second Hand Exposure: No; Do You Dip or Chew Tobacco: No; Tobacco Cessation Education Requested by Patient: No Hx Alcohol Use: Yes Alcohol type: beer Hx Substance Use: No Preferred Language: Iraqi Communication Ability: Effective Analysis Consultant Required: No Beliefs That Will Affect Care: None Current Living Situation: Family Current Living Situation Comment: mom lives in own portion of the home Feels Safe at Home: Yes Safety Concerns: Feels Safe At This Time Assistive Devices: None Review of Systems Review of Systems: All systems reviewed & are unremarkable except as noted in HPI & below Physical Exam Constitutional: WD/WN, vitals as above + obese; no acute distress Neck: trachea midline, no thyromegaly + thick neck Respiratory: normal respiratory effort and + cough Auscultation: + wheezes Cardiovascular: Rate/Rhythm: regular rate and regular rhythm Heart Sounds: normal S1 and normal S2; no murmur Vessels: no JVD Extremities: no edema Gastrointestinal (Abdomen): normal bowel sounds, soft, nontender, no hepatosplenomegaly Skin: no rashes, warm and dry Neurologic: PERRL, EOMI, accommodation nl, no face palsy, no dysarthria Results & Data Vital Signs (Past 12 Hours) Vital Signs Temp Pulse Pulse Resp BP BP Pulse Ox 03/06/23 11:22 36.5 C 75 20 187/116 H 97 03/06/23 10:10 88 17 03/06/23 10:00 86 21 03/06/23 10:00 171/113 H 03/06/23 09:50 84 20 03/06/23 09:40 87 20 03/06/23 09:30 95 H 23 03/06/23 09:20 87 16 03/06/23 10:14 94 H 03/06/23 09:10 98 H 14 03/06/23 09:00 86 19 03/06/23 09:00 175/108 H 03/06/23 08:50 91 H 17 96 03/06/23 08:40 103 H 19 03/06/23 08:30 91 H 21 96 03/06/23 10:09 99 H 171/113 H 03/06/23 08:00 88 16 154/98 H 96 03/06/23 07:00 98 H 23 137/103 H 97 03/06/23 06:37 99 H 20 97 03/06/23 06:34 94 H 20 169/112 H 95 03/06/23 05:45 106 H 03/06/23 05:24 36.6 C 120 H 16 135/84 96 O2 Del Method 03/06/23 11:22 Room Air 03/06/23 10:10 03/06/23 10:00 03/06/23 10:00 03/06/23 09:50 03/06/23 09:40 03/06/23 09:30 03/06/23 09:20 03/06/23 10:14 03/06/23 09:10 03/06/23 09:00 03/06/23 09:00 03/06/23 08:50 03/06/23 08:40 03/06/23 08:30 03/06/23 10:09 03/06/23 08:00 03/06/23 07:00 03/06/23 06:37 Room Air 03/06/23 06:34 Room Air 03/06/23 05:45 03/06/23 05:24 Room Air Laboratory Results Cardiac Enzymes 03/06/23 03/06/23 03/06/23 Range/Units 05:30 07:07 07:07 AST TNP 41 H Troponin I High Sens 19.5 84.5 H* D Cancelled (0-20) pg/ml Coagulation 03/06/23 Range/Units 05:30 PT 10.1 (9.0-12.0) Seconds APTT 23.4 (21.0-31.0) Seconds CBC 03/06/23 Range/Units 05:30 WBC 6.36 (4.8-10.8) K/ul RBC 3.88 L (4.70-6.10) M/uL Hgb 14.3 (14.0-18.0) g/dl Hct 40.8 L (42.0-52.0) % Plt Count 271 (130-400) K/uL Neut # (Auto) 3.78 (1.40-6.50) K/uL Lymph # (Auto) 1.73 (1.2-3.4) K/uL [place] # (Auto) 0.65 H (0.11-0.59) K/uL Eos # (Auto) 0.11 (0-0.50) K/uL Baso # (Auto) 0.06 (0-0.2) K/uL Comprehensive Metabolic Panel 03/06/23 03/06/23 Range/Units 05:30 07:07 Sodium TNP 135 L Potassium TNP 4.0 Chloride 105 (98-107) mmol/L Carbon Dioxide 21 (21-32) mmol/L BUN 14 (6-23) mg/dl Creatinine 1.21 (0.6-1.4) mg/dl Glucose 94 (70-99(Fasting)) mg/dl Calcium 9.3 (8.6-10.3) mg/dl AST TNP 41 H ALT 50 (7-52) U/L Alkaline Phosphatase 67 (34-104) U/L Total Protein 7.7 (6.0-8.3) gm/dl Albumin 4.1 (3.4-5.0) gm/dl Intake and Output 03/05/23 03/06/23 03/06/23 22:59 06:59 14:59 Intake Total 500 / 500 Balance 500 / 500 Intake: IV 500 / 500 Sodium Chloride 0.9% 500 ml @ 500 / 500 999 mls/hr IV .Q31M STA Rx#: [id number] Other: Weight 113 kg 100 kg Weight Measurement Method Chair Scale Built in [facility] Patient Weight 03/07/23 06:59 Weight 100 kg Diagnostic Findings Telemetry reviewed: NSR without arrhythmias Repeat EKG Normal sinus rhythm with sinus arrhythmia Right bundle branch block Inferior infarct (cited on or before 06-MAR-2023) Compared with prior EKG, HR improved EKG reviewed from arrival to ER Sinus tachycardia with right bundle branch block Possible Inferior infarct , age undetermined Nonspecific T wave abnormality, worse in Anterior leads Chest CTA report reviewed 03/06/2023: IMPRESSION: 1. No pulmonary embolus is seen. 2. Emphysema. Stable pulmonary nodules which do not require follow-up by Fleischner criteria. 3. Additional findings as above. Medications Administered Current Inpatient Medications Acetaminophen (Acetaminophen 325 Mg Tab) 650 mg PO Q4H PRN PRN Reason: Pain or Fever Stop: 04/05/23 11:21 Albuterol (Albuterol Hfa 8 Gm Inhaler) 2 puffs INH Q4H PRN PRN Reason: Shortness Of Breath Or Wheezing Stop: 04/05/23 10:45 Aspirin (Aspirin 81 Mg Ectab) 81 mg PO QAM [facility] Stop: 04/06/23 08:59 Atorvastatin Calcium (Atorvastatin 40 Mg Tab) 80 mg PO DAILY [facility] Stop: 04/06/23 08:59 Gabapentin (Gabapentin 100 Mg Cap) 100 mg PO TID [facility] Stop: 04/05/23 13:59 Hydrochlorothiazide (Hydrochlorothiazide 25 Mg Tab) 25 mg PO QAM [facility] Stop: 04/06/23 08:59 Heparin Sodium/Dextrose (Heparin Sodium/Dextrose) 25,000 units in 500 mls @ 20 mls/hr IV .Q24H [facility]; Protocol Stop: 04/05/23 08:59 Last Admin: 03/06/23 09:06 Dose: 1,000 units/hr, 20 mls/hr Lisinopril (Lisinopril 10 Mg Tab) 10 mg PO QAM [facility] Stop: 04/06/23 08:59 Morphine Sulfate (Morphine Sulfate 2 Mg/Ml Carp) 2 mg IV Q30M PRN PRN Reason: Chest Pain Stop: 03/20/23 11:21 Nitroglycerin (Nitroglycerin Sl 0.4 Mg/Tab Tab) 0.4 mg SL Q5M PRN PRN Reason: Chest Pain Stop: 04/05/23 11:21 Ondansetron HCl (Ondansetron Inj 2 Mg/Ml 2 Ml Vial) 4 mg IV Q6H PRN PRN Reason: Nausea Stop: 04/05/23 11:21
[2023-03-06] MEDS: carvediloL 6.25 MG TAB PO SCH ×2 (13:07→20:29)
[2023-03-06] MEDS ORDERED: NITROGLYCERIN 2% OINTMENT 30GM TUBE EXT SCH (13:30)
--- NOTE | 2023-03-06 13:30 | Electrocardiogram Report ---
Test Reason : Blood Pressure : / mmHG Vent. Rate : 085 BPM Atrial Rate : 085 BPM P-R Int : 164 ms QRS Dur : 116 ms QT Int : 368 ms P-R-T Axes : 028 -23 003 degrees QTc Int : 437 ms Normal sinus rhythm with sinus arrhythmia Right bundle branch block possible Inferior infarct (cited on or before 06-MAR-2023) Abnormal ECG When compared with ECG of 06-MAR-2023 05:29, No significant change was found Confirmed by Sharif Becker ([id number]) on 03/06/2023 1:30:25 PM Referred By: REFERRED SELF Confirmed By:Joe Becker
[2023-03-06] MEDS ORDERED: GABAPENTIN 100 MG CAP PO SCH (14:00)
[2023-03-06] MEDS ORDERED: LABETALOL HCL IV 5 MG/ML 20ML IV STA (14:09)
[2023-03-06] MEDS ORDERED: NITROGLYCERIN 2% OINTMENT 30GM TUBE EXT ONE (14:18)
[2023-03-06] MEDS: NITROGLYCERIN 2% OINTMENT 30GM TUBE EXT SCH ×2 (14:21→20:27)
[2023-03-06 15:25] LABS: Partial Thromboplastin Ratio 1.1; Partial Thromboplastin Time 31.2 Seconds (21.0-31.0)
[2023-03-06] MEDS ORDERED: HEPARIN IV BOLUS 4,000 UNITS in SYRINGE 0 ML IV ONE (16:00)
[2023-03-06 17:09] LABS: Appearance Urine Clear (Clear); Bilirubin Urine Negative (Negative); Blood Urine Negative (Negative); Color Urine Yellow; Glucose Urine UA Negative (Negative); Ketones Urine Negative (Negative); Leukocyte Esterase Urine Negative (Negative); Nitrite Urine Negative (Negative); Protein Urine Negative (Negative); Specific Gravity Urine > 1.045 (1.000-1.030); Urobilinogen Urine Negative (Negative)
[2023-03-06] MEDS: lisinopril 10 MG TAB PO SCH (20:29)
[2023-03-06 23:35] LABS: Partial Thromboplastin Ratio 1.2
[2023-03-07] MEDS ORDERED: HEPARIN SOD (PORCINE) 1000 UNIT/ML IV ONE
[2023-03-07] MEDS: NITROGLYCERIN 2% OINTMENT 30GM TUBE EXT SCH ×4 (02:49→20:19)
[2023-03-07] MEDS: ACETAMINOPHEN 325 MG TAB PO PRN ×2 (02:56→19:18)
[2023-03-07] MEDS: HEPARIN SODIUM/DEXTROSE 25,000 UNITS/500 ML BAG IV SCH ×4 (04:33→21:44)
[2023-03-07 06:43] LABS: Hematocrit (blood only) 33.9 % (42.0-52.0); Hemoglobin 11.6 g/dl (14.0-18.0); Mean Corpuscular Hemoglobin 36.8 pg (25.0-34.0); Mean Corpuscular Hgb Conc 34.2 g/dL (32.0-36.0); Mean Corpuscular Volume 107.6 fL (80.0-100.0); Mean Platelet Volume 9.1 fL (9.4-12.4); Platelet Count 229 K/uL (130-400); RDW Coefficient of Variation 12.5 % (11.5-14.5); RDW Standard Deviation 49.6 fL (36.4-46.3); Red Blood Count 3.15 M/uL (4.70-6.10); White Blood Count 7.28 K/ul (4.8-10.8)
[2023-03-07 07:03] LABS: BUN Creatinine Ratio 13.5 (10-20); Calcium 8.9 mg/dl (8.6-10.3); Creatinine Clr Calc Pharmacy 94.6 ml/min; Est GFR (African American) 83.8 ml/min; Est GFR (Non-African American) 72.3 ml/min; Magnesium 1.5 mg/dl (1.7-2.4); Potassium 4.1 mmol/L (3.5-5.1)
[2023-03-07 07:10] LABS: Partial Thromboplastin Ratio 1.4
[2023-03-07] MEDS: lisinopril 10 MG TAB PO SCH ×2 (08:08→20:23)
[2023-03-07] MEDS: carvediloL 6.25 MG TAB PO SCH ×2 (08:08→20:23)
[2023-03-07] MEDS: ATORVASTATIN 40 MG TAB PO SCH (08:09)
[2023-03-07] MEDS: hydroCHLOROthiazide 25 MG TAB PO SCH (08:09)
[2023-03-07] MEDS: ASPIRIN 81 MG ECTAB PO SCH (08:09)
[2023-03-07] MEDS ORDERED: lisinopril 10 MG TAB PO SCH (09:00)
[2023-03-07] MEDS: MAGNESIUM SULFATE / D5W 1 GM/100 ML BAG IV SCH ×2 (09:21→11:16)
--- NOTE | 2023-03-07 11:20 | Cardiology Progress Note ---
Date of Service March 07, 2023 Assessment & Plan (1) Chest pain: (2) Hypertension: (3) Elevated troponin: (4) Abnormal EKG: (5) Tobacco dependence: Plan Blood pressure controlled. Ischemic evaluation recommended. Unable to ambulate on treadmill due to low back pain. Pharmacologic stress testing versus cardiac catheterization discussed. With elevated troponin and significant risk factors, cardiac catheterization recommended. Risk versus benefit discussed. Patient agreeable. He will continue IV heparin at this time. N.p.o. except medications after midnight 03/08/2023 with plans for cardiac catheterization in a.m. 03/09/2023. Continue aspirin, carvedilol, lisinopril, topical nitrates, and statin as ordered. Admission and Anticipated Discharge Date Admission Date: March 06, 2023 Subjective Patient seen examined the bedside. Blood pressure controlled. No recurrent chest discomfort. Telemetry reveals sinus rhythm in the 60s. Denies p alpitations, lightheadedness, or dizziness. Tolerating medications. Voices concern regarding symptoms and possible underlying coronary blockage. Review of Systems Review of Systems: All systems reviewed & are unremarkable except as noted in Subjective Physical Exam Constitutional: well nourished; no acute distress and not ill appearing Respiratory: no respiratory distress, no labored breathing and no retractions Cardiovascular: Rate/Rhythm: regular rate and regular rhythm Heart Sounds: normal S1 and normal S2; no murmur Extremities: no edema Gastrointestinal (Abdomen): Inspection/Auscultation: abdomen normal to inspection and normal bowel sounds; abdomen not distended Percussion/Palpation: abdomen soft; abdomen nontender, no guarding and abdomen not rigid Neurologic: CN's II-XI intact bilaterally and moves all extremities; no focal motor deficits Psychiatric: A+Ox3, euthymic affect Results & Data Vital Signs (Past 12 Hours) Vital Signs Temp Pulse Pulse Resp BP Pulse Ox O2 Del Method 03/07/23 07:42 36.7 C 73 19 135/81 95 Room Air 03/07/23 03:04 36.6 C 16 93 Room Air 03/07/23 02:45 83 119/75 Laboratory Results Cardiac Enzymes 03/06/23 03/06/23 Range/Units 14:09 18:45 Troponin I High Sens 85.0 H* 55.1 H* D (0-20) pg/ml Coagulation 03/06/23 03/06/23 03/07/23 Range/Units 14:09 22:38 06:17 APTT 31.2 H 34.0 H 40.0 H (21.0-31.0) Seconds CBC 03/07/23 Range/Units 06:17 WBC 7.28 (4.8-10.8) K/ul RBC 3.15 L (4.70-6.10) M/uL Hgb 11.6 L (14.0-18.0) g/dl Hct 33.9 L (42.0-52.0) % Plt Count 229 (130-400) K/uL Comprehensive Metabolic Panel 03/07/23 Range/Units 06:17 Sodium 134 L (136-145) mmol/L Potassium 4.1 (3.5-5.1) mmol/L Chloride 102 (98-107) mmol/L Carbon Dioxide 26 (21-32) mmol/L BUN 15 (6-23) mg/dl Creatinine 1.11 (0.6-1.4) mg/dl Glucose 103 H (70-99(Fasting)) mg/dl Calcium 8.9 (8.6-10.3) mg/dl Intake and Output 03/06/23 03/07/23 03/07/23 22:59 06:59 14:59 Intake Total 207.667 / 454.734 247.067 / 454.734 176.067 / 176.067 Output Total 326 / 326 375 / 375 Balance -118.333 / 128.734 247.067 / 128.734 -198.933 / -198.933 Intake: IV 207.667 / 454.734 247.067 / 454.734 176.067 / 176.067 Heparin Sodium/Dextrose 25,000 207.667 / 454.734 247.067 / 454.734 76.067 / 76.067 units In 500 ml @ 1,500 UNITS/ HR 30 mls/hr IV .[id number] MARANDA Rx #:[id number] Magnesium Sulfate / D5w 1 gm In 100 / 100 100 ml @ 50 mls/hr IV Q2H [facility]ANDA Rx#:[id number] Output: Urine 325 / 325 375 / 375 # Bowel Movements Other: Weight 113.6 kg
--- NOTE | 2023-03-07 12:02 | Hospitalist Progress Note ---
Date of Service March 07, 2023 Assessment & Plan (1) Chest pain: Plan 57-year-old male with PMH of HTN, HLD, peripheral neuropathy, shingles x right eye, chronic lumbar back pain, tobacco dependence presented with chest tightness that started 3:30 AM on the day of arrival, lasted for about 10 minutes. Patient does report having shortness of breath with minimal activities for over a year and he smokes 1 pack a day, smoking since age 10. He is being managed for the following: (1) Chest pain: (2) Hypertension: Patient presents with chest tightness, first troponin at presentation WNL, then up trended. EKG without acute ST or T changes. Echo without regional wall motion abnormality, EF of 60 to 65%, grade 1 diastolic dysfunction, moderate concentric LVH. Patient was started on heparin GTT, continue heparin drip, plan for cardiac cath on Thursday. NPO midnight 03/09 midnight. Blood pressure elevated at presentation, patient reports he missed his doses of hydrochlorothiazide several days prior to presentation, continue home medications and started coreg this admission. Aspirin and atorvastatin started this admission. Cardiology on board, appreciate recommendation. P.m. nitroglycerin. EKG with chest pain. Blood pressure getting better (3) Chronic obstructive pulmonary disease: (4) Tobacco dependence: - CTA chest completed showing emphysema, no PE, stable pulmonary nodules. 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 Encouraged him to meal prep at least 2 meals on weekends to aid in healthy meals during the week due to work schedule. DVT ppx: heparin drip CODE: Full code Dispo: Admission and Anticipated Discharge Date Admission Date: March 06, 2023 Subjective Patient seen and examined patient as a follow-up chest pain rule out ACS, hypertension, tobacco dependence. Patient was lying in bed, on room air, NAD, reports no further chest tightness or pain while in hospital, but is short of breath with minimal activity, has smoker's cough which is at his baseline, reports eating okay and moving bowels okay. Denies headache or dizziness or sore throat or febrile illness recently. Physical Exam Physical Exam: GENERAL: Alert and oriented x3. NAD, on RA. Obese class I. HEENT: No pallor, no icterus. Pupils equal, round and reactive to light. Oral mucosa moist. NECK: No JVD, no neck masses. HEART: S1 and S2 heard. Regular rate and rhythm. No murmur, no gallop. RESPIRATORY SYSTEM: Normal AP diameter. No accessory muscle use. No wheezing, no crackles. Bilateral decreased breath sounds. ABDOMEN: Soft, bowel sounds present, nontender, no distention. CENTRAL NERVOUS SYSTEM: No facial droop. Speech is clear. Obeys simple commands. Moves extremities. EXTREMITIES: No edema, no erythema seen. Results & Data Results & Data Vital Signs (Past 12 Hours) Vital Signs Temp Pulse Pulse Resp BP Pulse Ox O2 Del Method 03/07/23 11:46 36.5 C 73 18 127/80 95 Room Air 03/07/23 07:42 36.7 C 73 19 135/81 95 Room Air 03/07/23 03:04 36.6 C 16 93 Room Air 03/07/23 02:45 83 119/75
[2023-03-07 14:41] LABS: Partial Thromboplastin Ratio 1.4
[2023-03-07 21:27] LABS: Partial Thromboplastin Ratio 1.4; Partial Thromboplastin Time 39.1 Seconds (21.0-31.0)
[2023-03-08] MEDS: NITROGLYCERIN 2% OINTMENT 30GM TUBE EXT SCH ×4 (02:22→19:57)
[2023-03-08 04:07] LABS: Hematocrit (blood only) 34.1 % (42.0-52.0); Hemoglobin 11.6 g/dl (14.0-18.0); Mean Corpuscular Hemoglobin 36.4 pg (25.0-34.0); Mean Corpuscular Volume 106.9 fL (80.0-100.0); Mean Platelet Volume 9.3 fL (9.4-12.4); Platelet Count 239 K/uL (130-400); RDW Coefficient of Variation 12.5 % (11.5-14.5); RDW Standard Deviation 49.1 fL (36.4-46.3); Red Blood Count 3.19 M/uL (4.70-6.10); White Blood Count 7.32 K/ul (4.8-10.8)
[2023-03-08 04:28] LABS: BUN Creatinine Ratio 13.6 (10-20); Calcium 9.1 mg/dl (8.6-10.3); Est GFR (African American) 72.6 ml/min; Est GFR (Non-African American) 62.6 ml/min; Magnesium 1.8 mg/dl (1.7-2.4); Phosphorus 3.7 mg/dl (2.5-4.9); Potassium 3.9 mmol/L (3.5-5.1)
[2023-03-08 04:47] LABS: Partial Thromboplastin Ratio 1.6
[2023-03-08 04:59] LABS: Partial Thromboplastin Time 45.9 Seconds (21.0-31.0)
[2023-03-08] MEDS: HEPARIN SODIUM/DEXTROSE 25,000 UNITS/500 ML BAG IV SCH ×2 (07:46→12:28)
[2023-03-08 08:10] LABS: Estimated Average Glucose 111 mg/dl; Hemoglobin A1C 5.5 % (4.5-5.6)
[2023-03-08] MEDS: carvediloL 6.25 MG TAB PO SCH ×2 (08:29→19:58)
[2023-03-08] MEDS: hydroCHLOROthiazide 25 MG TAB PO SCH (08:29)
[2023-03-08] MEDS: ATORVASTATIN 40 MG TAB PO SCH (08:29)
[2023-03-08] MEDS: lisinopril 10 MG TAB PO SCH ×2 (08:29→19:58)
[2023-03-08] MEDS: ASPIRIN 81 MG ECTAB PO SCH (08:29)
--- NOTE | 2023-03-08 12:03 | Cardiology Progress Note ---
Date of Service March 08, 2023 Assessment & Plan (1) Chest pain: (2) Hypertension: (3) Elevated troponin: (4) Abnormal EKG: (5) Tobacco dependence: Plan With elevated troponin and significant risk factors, cardiac catheterization recommended. Risk versus benefit discussed. Patient agreeable. He will continue IV heparin at this time. Hold 5 AM 03/09/2023. N.p.o. except medications after midnight with plans for cardiac catheterization in a.m. tomorrow, 03/09/2023. Continue aspirin, carvedilol, lisinopril, topical nitrates, and statin as ordered. Admission and Anticipated Discharge Date Admission Date: March 06, 2023 Subjective Patient seen and examined at the bedside. No symptoms overnight. Tolerating diet and medications. Anxious for procedure in a.m. 03/09/2023. Denies orthopnea, PND, or palpitations. Sinus rhythm on telemetry. Blood pressure controlled. Review of Systems Review of Systems: All systems reviewed & are unremarkable except as noted in Subjective Physical Exam Constitutional: well nourished; no acute distress and not ill appearing Respiratory: no respiratory distress, no labored breathing and no retractions Cardiovascular: Rate/Rhythm: regular rate and regular rhythm Heart Sounds: normal S1 and normal S2; no murmur Extremities: no edema Gastrointestinal (Abdomen): Inspection/Auscultation: abdomen normal to inspection and normal bowel sounds; abdomen not distended Percussion/Palpation: abdomen soft; abdomen nontender, no guarding and abdomen not rigid Neurologic: CN's II-XI intact bilaterally and moves all extremities; no focal motor deficits Psychiatric: A+Ox3, euthymic affect Results & Data Vital Signs (Past 12 Hours) Vital Signs Temp Pulse Pulse Resp BP Pulse Ox O2 Del Method 03/08/23 11:05 36.7 C 71 18 122/77 95 Room Air 03/08/23 07:54 36.9 C 61 19 120/78 96 Room Air 03/08/23 02:59 36.7 C 75 94 Room Air 03/08/23 02:20 75 109/67 Laboratory Results Coagulation 03/07/23 03/07/23 03/08/23 Range/Units 13:56 20:32 03:47 APTT 39.0 H 39.1 H 45.9 H* (21.0-31.0) Seconds Lipids 03/08/23 Range/Units 03:47 Triglycerides 327 H (0-150) mg/dl Cholesterol 180 (0-200) mg/dl HDL Cholesterol 36 mg/dl Cholesterol/HDL Ratio 5.0 (0-5) CBC 03/08/23 Range/Units 03:47 WBC 7.32 (4.8-10.8) K/ul RBC 3.19 L (4.70-6.10) M/uL Hgb 11.6 L (14.0-18.0) g/dl Hct 34.1 L (42.0-52.0) % Plt Count 239 (130-400) K/uL Comprehensive Metabolic Panel 03/08/23 Range/Units 03:47 Sodium 133 L (136-145) mmol/L Potassium 3.9 (3.5-5.1) mmol/L Chloride 101 (98-107) mmol/L Carbon Dioxide 24 (21-32) mmol/L BUN 17 (6-23) mg/dl Creatinine 1.25 (0.6-1.4) mg/dl Glucose 99 (70-99(Fasting)) mg/dl Calcium 9.1 (8.6-10.3) mg/dl Intake and Output 03/07/23 03/08/23 03/08/23 22:59 06:59 14:59 Intake Total 1016.433 / 1670.000 150 / 1670.000 316.2 / 316.2 Output Total 1151 / 2576 1050 / 2576 Balance -134.567 / -906.000 -900 / -906.000 316.2 / 316.2 Intake: IV 196.433 / 700.000 316.2 / 316.2 Heparin Sodium/Dextrose 25,000 196.433 / 500.000 316.2 / 316.2 units In 500 ml @ 1,700 UNITS/ HR 34 mls/hr IV .[id number] [facility] Rx #:[id number] Oral 820 / 970 150 / 970 Output: Urine 1150 / 2575 1050 / 2575 # Bowel Movements Other: Weight 112.6 kg
--- NOTE | 2023-03-08 12:22 | Hospitalist Progress Note ---
Date of Service March 08, 2023 Assessment & Plan (1) Chest pain: Plan 57-year-old male with PMH of HTN, HLD, peripheral neuropathy, shingles x right eye, chronic lumbar back pain, tobacco dependence presented with chest tightness that started 3:30 AM on the day of arrival, lasted for about 10 minutes. Patient does report having shortness of breath with minimal activities for over a year and he smokes 1 pack a day, smoking since age 10. He is being managed for the following: (1) Chest pain: (2) Hypertension: Patient presents with chest tightness, first troponin at presentation WNL, then up trended. EKG without acute ST or T changes. Echo without regional wall motion abnormality, EF of 60 to 65%, grade 1 diastolic dysfunction, moderate concentric LVH. LDL 79 and A1c 5.5% Patient was started on heparin GTT, continue heparin drip, plan for cardiac cath on Thursday. NPO midnight 03/09 midnight. Blood pressure elevated at presentation, patient reports he missed his doses of hydrochlorothiazide several days prior to presentation, continue home medications and started coreg this admission. Aspirin and atorvastatin started this admission. Cardiology on board, appreciate recommendation. P.m. nitroglycerin. EKG with chest pain. Blood pressure getting better (3) Chronic obstructive pulmonary disease: (4) Tobacco dependence: - CTA chest completed showing emphysema, no PE, stable pulmonary nodules. 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 Encouraged him to meal prep at least 2 meals on weekends to aid in healthy meals during the week due to work schedule. DVT ppx: heparin drip CODE: Full code Dispo: Admission and Anticipated Discharge Date Admission Date: March 06, 2023 Subjective Patient seen and examined patient as a follow-up chest pain rule out ACS, hypertension, tobacco dependence. Patient was sitting up in chair, on room air, NAD, reports no further chest tightness or pain while in hospital, but is short of breath with minimal activity, has smoker's cough which is at his baseline, reports eating okay and moving bowels okay. Denies headache or dizziness or sore throat or febrile illness recently. Pt made aware of plan for cath daniele; NPO midnight. Physical Exam Physical Exam: GENERAL: Alert and oriented x3. NAD, on RA. Obese class I. HEENT: No pallor, no icterus. Pupils equal, round and reactive to light. Oral mucosa moist. NECK: No JVD, no neck masses. HEART: S1 and S2 heard. Regular rate and rhythm. No murmur, no gallop. RESPIRATORY SYSTEM: Normal AP diameter. No accessory muscle use. No wheezing, no crackles. Bilateral decreased breath sounds. ABDOMEN: Soft, bowel sounds present, nontender, no distention. CENTRAL NERVOUS SYSTEM: No facial droop. Speech is clear. Obeys simple commands. Moves extremities. EXTREMITIES: No edema, no erythema seen. Results & Data Results & Data Vital Signs (Past 12 Hours) Vital Signs Temp Pulse Pulse Pulse Resp BP Pulse Ox 03/08/23 11:05 36.7 C 71 18 122/77 95 03/08/23 09:32 60 03/08/23 09:32 03/08/23 07:54 36.9 C 61 19 120/78 96 03/08/23 02:59 36.7 C 75 94 03/08/23 02:20 75 109/67 O2 Del Method 03/08/23 11:05 Room Air 03/08/23 09:32 03/08/23 09:32 Room Air 03/08/23 07:54 Room Air 03/08/23 02:59 Room Air 03/08/23 02:20
[2023-03-08] MEDS ORDERED: PANTOprazole 40 MG TAB PO SCH (21:30)
[2023-03-09] MEDS: NITROGLYCERIN 2% OINTMENT 30GM TUBE EXT SCH ×2 (03:00→10:37)
[2023-03-09 07:21] LABS: BUN Creatinine Ratio 15.3 (10-20); Calcium 9.4 mg/dl (8.6-10.3); Creatinine Clr Calc Pharmacy 79.4 ml/min; Est GFR (African American) 68.6 ml/min; Est GFR (Non-African American) 59.2 ml/min; Magnesium 1.8 mg/dl (1.7-2.4)
--- NOTE | 2023-03-09 07:53 | Pre Anesthesia Assessment ---
Date of Service March 09, 2023 Pre Sedation Assessment Vital Signs Temp Pulse Pulse Resp BP BP Pulse Ox 03/09/23 07:15 77 03/09/23 10:29 36.6 C 76 16 105/69 92 03/09/23 09:31 36.4 C L 75 16 124/87 95 03/09/23 09:16 36.5 C 75 18 122/80 96 03/09/23 09:00 70 18 144/81 H 93 03/09/23 07:43 79 16 144/81 H 96 03/09/23 07:12 80 18 127/82 95 03/09/23 03:29 36.5 C 76 16 96/59 L 96 03/09/23 00:01 70 03/08/23 23:20 36.5 C 71 16 114/63 96 03/08/23 20:54 03/08/23 19:40 36.7 C 77 17 124/85 98 03/08/23 16:52 36.7 C 76 18 113/78 94 O2 Del Method 03/09/23 07:15 03/09/23 10:29 Room Air 03/09/23 09:31 Room Air 03/09/23 09:16 Room Air 03/09/23 09:00 Room Air 03/09/23 07:43 Room Air 03/09/23 07:12 Room Air 03/09/23 03:29 Room Air 03/09/23 00:01 03/08/23 23:20 Room Air 03/08/23 20:54 Room Air 03/08/23 19:40 Room Air 03/08/23 16:52 Room Air Cardiovascular + regular rate and + regular rhythm + S1 normal and + S2 normal; no murmur + femoral pulses present and + radial pulses present; no JVD and no carotid bruit no edema Respiratory + respiratory effort normal; no respiratory distress and no labored breathing no crackles, no rales and no rhonchi Pre-Sedation Airway Assessment Smoking Status: Current every day smoker Hx Sleep Apnea: Yes Short, Thick Neck: No Thyromental Distance: > or= 3.5 Finger Breadths Oral Cavity: + WNL Mallampati Class: II ASA: ASA3 NPO Status Date of Last Intake of Fluids: 03/08/23 Time of Last Intake of Fluids: 22:00 Date of Last Intake of Solid Food: 03/08/23 Time of Last Intake of Solid Foods: 22:00 Notes The planned sedation has been discussed with the patient. Informed Consent was obtained. I have identified the patient, determined the appropriateness of sedation and have assessed the patient immediately prior to the procedure. All medicine(s) and interventions are by my order.
[2023-03-09] MEDS ORDERED: MIDAZOLAM HCL 1 MG/ML 2ML VIAL ONE (08:07)
[2023-03-09] MEDS ORDERED: HEPARIN (PORCINE) 1000 UNIT/ML 10 ML (CATH LAB USE ONLY) ONE (08:07)
[2023-03-09] MEDS ORDERED: niCARdipine HCL INJ 2.5 MG/ML 10 ML AMP ONE (08:07)
[2023-03-09] MEDS ORDERED: fentaNYL citrate PF 100 MCG/2 ML VIAL ONE (08:07)
[2023-03-09] MEDS ORDERED: NITROGLYCERIN/D5W 100MCG/ML 20ML SYR ONE (08:09)
[2023-03-09] MEDS ORDERED: ASPIRIN 81 MG CHEW ONE (08:11)
--- NOTE | 2023-03-09 08:57 | Post Anesthesia Assessment ---
Date of Service March 09, 2023 Post Sedation Assessment Vital Signs Temp Pulse Pulse Resp BP BP Pulse Ox 03/09/23 07:15 77 03/09/23 10:29 36.6 C 76 16 105/69 92 03/09/23 09:31 36.4 C L 75 16 124/87 95 03/09/23 09:16 36.5 C 75 18 122/80 96 03/09/23 09:00 70 18 144/81 H 93 03/09/23 07:43 79 16 144/81 H 96 03/09/23 07:12 80 18 127/82 95 03/09/23 03:29 36.5 C 76 16 96/59 L 96 03/09/23 00:01 70 03/08/23 23:20 36.5 C 71 16 114/63 96 03/08/23 20:54 03/08/23 19:40 36.7 C 77 17 124/85 98 03/08/23 16:52 36.7 C 76 18 113/78 94 O2 Del Method 03/09/23 07:15 03/09/23 10:29 Room Air 03/09/23 09:31 Room Air 03/09/23 09:16 Room Air 03/09/23 09:00 Room Air 03/09/23 07:43 Room Air 03/09/23 07:12 Room Air 03/09/23 03:29 Room Air 03/09/23 00:01 03/08/23 23:20 Room Air 03/08/23 20:54 Room Air 03/08/23 19:40 Room Air 03/08/23 16:52 Room Air Recovery Score Activity: Moves 4 extremities Respiration: Deep Breath/Cough Circulation: +/-20% PreAnes Value Consciousness: Arouseable (by name) Oxygen Saturation: > 92% On Room Air Discharge Sedation Level of Care: Phase I Post Sedation Plan On clinical assessment, the patient appears to have tolerated the sedation without complications. Patient is recovering as anticipated. Patient will continue to be monitored by nursing and may be discharged when sedation discharge criteria are met per below protocol. Upon Completions of procedure up to 15 minutes continue every 5 minute vital signs and the P.A.R. score; then discharge to a Phase I or Fast Track to Phase II per the following guidelines: * Discharge Patient to appropriate Phase II area if PAR is 8 or greater or return to pre- procedure baseline. The post - procedure orders will be as directed. * If PAR score is less than 8 or not return to pre-procedure baseline then patient will follow Phase I monitoring till PAR is reached for Phase II. The Phase I may be done in procedure room or may call to secure a Phase I area. * If naloxone or flumazenil are used for reversal, hold in Phase I for continued monitoring from when last reversal dose was given for a minimum of 60 minutes or longer pending the nurse and/or physician discretion of patient condition before discharge to Phase II. Please call the Sedation Physician to re-evaluate and complete post-note for discharge to Phase II area. Do NOT discharge from procedure sedation or Phase 1 until post- sedation evaluation note is complete by procedure /sedation MD Sedation Discharge Instructions to be given to the patient at discharge to home.
--- NOTE | 2023-03-09 09:02 | Cardiac Catheterization ---
Cardiac Cath Procedure Full Procedure Date March 09, 2023 Pre-Procedure Diagnosis Pre-Procedure Diagnosis: Non STEMI AUC Score AUC Score: 7 Post-Procedure Diagnosis Post-Procedure Diagnosis: Moderate CAD Procedure(s) Performed Procedure(s) Performed: Coronary Angiography and Left Heart Cath Record Keeper Trev Bond DO Human Resources Analyst(s) Rosalia RTR Estimated Blood Loss Estimated Blood Loss: 5cc Medication(s) Medication(s): Fentanyl, Heparin, Lidocaine 1%, Nicardipine, Nitroglycerin and Versed Summary of Findings Moderate nonobstructive coronary disease. Hemodynamics Rest Ao:: 84/62/74 Final Ao: 100/63/65 LV: 95/3/9 Recommendations Recommendations: Medical Therapy and/or Counseling Specimens Specimens: None Radiation Exposure (mGy) 1148 Contrast (mls) 65 Fluids (cc crystalloids) Fluids (cc crystalloids): 70 Nss Drains Drains: N/A Anesthesia Moderate sedation. Start 0832. End 0851. Sedation Monitor: Showers RN Procedural Complication(s) None Disposition Manager Contracting Holding/Recovery I attest to the content of the Intraoperative Record and any orders documented therein. Any exceptions are noted below. ACC Data: Manager Contracting Cardiac Status Clinical evaluation leading to the procedure 57-year-old patient admitted with NSTEMI and hypertensive urgency. CAD Presenation: Non STEMI Anginal Classification: CCS IV Heart Failure: No Cardiogenic Shock within 24 Hours: No Cardiac Arrest within 24 Hours: No Imaging Studies Past 6 Months: No Stress Studies Past 6 Months: No STEMI OR Non-STEMI Symptom Onset Date: 03/06/23 Symptom Onset Time: 08:00 Thrombolytics: No Coronary Anatomy Dominant: Co-Dominant Left Main (% Stenosis): Normal LAD (% Stenosis): Proximal (20%) and Mid (30% focal stenosis immediately distal to D1) D1 (% Stenosis): Mid (30%) Circumflex (% Stenosis): Mid (40% distal to OM1, followed by diffuse luminal irregularities, 20%) and Distal (30%) OM1 (% Stenosis): Proximal (20%) OM2 (% Stenosis): Ostial (20%) and Mid (10%, Small vessel) OM3 (% Stenosis): Normal (Small vessel) L PL1 (% Stenosis): Proximal (30%, large vessel) L PL2 (% Stenosis): Normal (Diminutive, 1 mm vessel) L PDA (% Stenosis): Normal (Diminutive, 1 mm vessel) RCA (% Stenosis): Proximal (10%) and Mid (Diffusely diseased with stenosis ranging up to 30%) R PDA (% Stenosis): Normal AM (% Stenosis): Ostial (40%) Diagnostic Physicians Name: Trev oBnd DO Closure Device Percutaneous Entry Location: Radial Closure Device: Radial Band Recommendations: Medical Therapy and/or Counseling Intraprocedure Events Significant Disection: No Perforation: No
[2023-03-09] MEDS ORDERED: LIDOCAINE 1% LOCAL 20 ML VIAL ONE (09:09)
[2023-03-09] MEDS: ASPIRIN 81 MG ECTAB PO SCH (09:57)
[2023-03-09] MEDS: carvediloL 6.25 MG TAB PO SCH (09:57)
[2023-03-09] MEDS: ATORVASTATIN 40 MG TAB PO SCH (09:57)
[2023-03-09] MEDS: hydroCHLOROthiazide 25 MG TAB PO SCH (09:57)
[2023-03-09] MEDS: lisinopril 10 MG TAB PO SCH (09:57)
[2023-03-09] MEDS: HEPARIN SODIUM/DEXTROSE 25,000 UNITS/500 ML BAG IV SCH (10:38)
--- NOTE | 2023-03-09 11:51 | Cardiology Progress Note ---
Date of Service March 09, 2023 Assessment & Plan (1) Chest pain: (2) Hypertension: (3) Elevated troponin: (4) Abnormal EKG: (5) Tobacco dependence: Plan Results of cardiac catheterization reviewed demonstrating nonobstructive coronary disease. Recommend continue aspirin, statin, carvedilol, and lisinopril. Risk versus benefit discussed. Patient agreeable. He will continue IV heparin at this time. Hold 5 AM 03/09/2023. N.p.o. except medications after midnight with plans for cardiac catheterization in a.m. tomorrow, 03/09/2023. Continue aspirin, carvedilol, lisinopril, topical nitrates, and statin as ordered. Postcardiac catheterization activity restrictions noted below. Patient may be discharged to home from a cardiovascular perspective. Follow-up with primary care in 1 to 2 weeks postdischarge. ACTIVITY RECOMMENDATIONS: Excess manipulation of the wrist should be avoided for the next 24-48 hours. * No lifting over 2 pounds (approximately a 1/2 gallon of milk) with the utilized arm for 24 hours. * No strenuous activity such as bowling or tennis for 3 days. * Keep the site of the procedure covered with a bandage for 24 hours. *You may shower the day after the procedure. Do not take a tub bath or submerge the puncture site in water for the next 3 days. *Do not operate any motorized equipment for 3 days. SPECIAL CARE INSTRUCTIONS: The site may be slightly bruised and sore following your procedure. Should any of the following occur, contact the Dr. who performed your procedure. 1. Redness/inflammation, swelling, chills, or fever, or colored drainage at procedure site within 3-7 days after your procedure. 2. Coldness, discoloration, ongoing numbness, severe pain, or swelling. Expect mild tingling of hand and tenderness at the puncture site for up to three days. If this persists beyond three days, or other symptoms develop, notify the Dr. who performed your procedure. BLEEDING: If the procedure site on your wrist begins to bleed, do not panic 1. Place 1 or 2 fingers firmly just slightly above the insertion site to stop the bleeding. You may be able to feel your pulse as you hold pressure. 2. Lift your finger after 5 minutes to see if the bleeding has stopped. 3. Once the bleeding has stopped, gently wipe the wrist area clean with a bandage. * If the bleeding from your wrist does not stop after 10 minutes, or if there is a large amount of bleeding or spurting, call 911 ([address] drive yourself to the hospital). SKIN IRRITATION: * You may experience some redness and/or swelling in the area where radiation was administered. If any skin irritation occurs, please contact your family physician. FOLLOW UP VISIT: Keep any scheduled doctor appointments. Admission and Anticipated Discharge Date Admission Date: March 06, 2023 Subjective Patient seen examined the bedside postcardiac catheterization. No evidence of significant obstructive CAD. Please see separate report. Patient has questions regarding ongoing dyspnea and time off work. Tolerating current medications. Offers no other concerns/complaints. Review of Systems Review of Systems: All systems reviewed & are unremarkable except as noted in Subjective Physical Exam Constitutional: well nourished; no acute distress and not ill appearing ENMT: Mallampati Class: II Respiratory: normal respiratory effort; no respiratory distress, no labored breathing and no retractions Auscultation: no crackles, no rales and no rhonchi Cardiovascular: Rate/Rhythm: regular rate and regular rhythm Heart Sounds: normal S1 and normal S2; no murmur Vessels: femoral pulses present and radial pulses present; no JVD and no carotid bruit Extremities: no edema Gastrointestinal (Abdomen): Inspection/Auscultation: abdomen normal to inspection and normal bowel sounds; abdomen not distended Percussion/Palpation: abdomen soft; abdomen nontender, no guarding and abdomen not rigid Neurologic: CN's II-XI intact bilaterally and moves all extremities; no focal motor deficits Psychiatric: A+Ox3, euthymic affect Results & Data Vital Signs (Past 12 Hours) Vital Signs Temp Pulse Pulse Resp BP BP Pulse Ox 03/09/23 07:15 77 03/09/23 10:29 36.6 C 76 16 105/69 92 03/09/23 09:31 36.4 C L 75 16 124/87 95 03/09/23 09:16 36.5 C 75 18 122/80 96 03/09/23 09:00 70 18 144/81 H 93 03/09/23 07:43 79 16 144/81 H 96 03/09/23 07:12 80 18 127/82 95 03/09/23 03:29 36.5 C 76 16 96/59 L 96 03/09/23 00:01 70 O2 Del Method 03/09/23 07:15 03/09/23 10:29 Room Air 03/09/23 09:31 Room Air 03/09/23 09:16 Room Air 03/09/23 09:00 Room Air 03/09/23 07:43 Room Air 03/09/23 07:12 Room Air 03/09/23 03:29 Room Air 03/09/23 00:01 Laboratory Results Coagulation 03/09/23 Range/Units 06:35 APTT 27.0 (21.0-31.0) Seconds Comprehensive Metabolic Panel 03/09/23 Range/Units 06:35 Sodium 134 L (136-145) mmol/L Potassium 4.0 (3.5-5.1) mmol/L Chloride 102 (98-107) mmol/L Carbon Dioxide 26 (21-32) mmol/L BUN 20 (6-23) mg/dl Creatinine 1.31 (0.6-1.4) mg/dl Glucose 100 H (70-99(Fasting)) mg/dl Calcium 9.4 (8.6-10.3) mg/dl Intake and Output 03/08/23 03/09/23 03/09/23 22:59 06:59 14:59 Intake Total 680 / 2270.0 1090 / 2270.0 0 / 0 Output Total 701 / 1901 1200 / 1901 Balance -21 / 369.0 -110 / 369.0 0 / 0 Intake: IV 490 / 990.0 0 / 0 Heparin Sodium/Dextrose 25,000 490 / 990.0 0 / 0 units In 500 ml @ 1,700 UNITS/ HR 34 mls/hr IV .[id number] [facility] Rx #:[id number] Oral 680 / 1280 600 / 1280 Output: Urine 700 / 1900 1200 / 1900 # Bowel Movements / Other: # Unmeasured Voids 2 Weight 111.4 kg
[2023-03-09] MEDS ORDERED: UMECLIDINIUM/VILANTEROL 62.5/25MCG 7 PUFFS/INHALER INH SCH (12:15)
--- NOTE | 2023-03-09 14:04 | Electrocardiogram Report ---
Test Reason : Blood Pressure : / mmHG Vent. Rate : 069 BPM Atrial Rate : 069 BPM P-R Int : 158 ms QRS Dur : 146 ms QT Int : 438 ms P-R-T Axes : 000 181 159 degrees QTc Int : 469 ms Normal sinus rhythm Right bundle branch block Abnormal ECG When compared with ECG of 06-MAR-2023 08:57, Questionable change in QRS duration Criteria for Inferior infarct are no longer Present Confirmed by Pramod Hair ([id number]) on 03/09/2023 2:03:32 PM Referred By: REFERRED SELF Confirmed By:Pramod Hair
--- NOTE | 2023-03-09 15:39 | Discharge Summary ---
Date of Service March 09, 2023 Admission HPI Per Admitting Provider This is a 57 you M with PMHx of HTN, HLD, peripheral neuropathy, hx shingles involving the R eye, Chronic lumbar back pain, who presents with chest heaviness which started at 0330, nonradiating and was not associated with shortness of breath. It scared him and he presented here. He has had chest pain before but not sought out medical attention. 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 Pt notes that he is chronically short of breath with minimal activities within the past year. He does smoke 1 pack/day, has smoked since age 10. Last er he quit for 2 months due to anticipated back surgery however his insurance then denied coverage of the surgery, and he resumed smoking, currently back up to 1 pack/day. He states possibly having COVID about a year ago, he was not formally tested but feels that his breathing has not been good since that timeframe. He does not require any supplemental O2, does not use any inhalers as he previously had an albuterol inhaler but ran out of it. He also admits to being out of HCTZ since this past Thursday, and has noticed increased swelling in his legs bilaterally. 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 Pt reports that he has chronic back pain which is off and on, notes that when he stands on his left leg for more than 5 minutes it becomes numb. Most recently has fallen about 2 months ago, and the first time he fell was last June. He has had lumbar spinal surgery in 2010, has had a left foot bunion surgery, and reports that when he fell he thinks he may have injured his foot again. He denies any recent falls. Pt notes he is also out of gabapentin and was using it for hx of shingles on his right forehead and R eye pain, postherpetic pain bothers him daily. Patient lives at home with his mom who is 85. Family Hx: Denies Denies Family Hx of cancer, stroke Father: high blood pressure Social Hx: smokes 1ppd since age 10, previously quit for 2 months in Nov to have back surgery, however his insurance denied it and he did not ultimately have that surgery done. Admits to drinking alcohol on weekends-does not elaborate. Admission Exam Per Admitting Provider General: awake, alert, no apparent distress, obese with BMI of 32.9 Head: Normocephalic, atraumatic ENT: PERRL, EOMI, no pharyngeal exudate, mucous membranes moist Chest: Clear to auscultation, chest pain is nonreproducible on palpation, on room air, no adventitious breath sounds Cardiac: Sinus tach with heart rate in the 90s, no murmur, no JVD, normal peripheral pulses, good capillary refill Abdominal: NABS x 4 quadrants, soft, nondistended, nontender to palpation, no rebound or guarding Extremities: Normal inspection, 1+ peripheral edema bilaterally, no erythema, calfs nontender to palpation Psych: Anxious mood and affect Neuro: AAO x 3, strength intact bilaterally and rated 5/5, no motor deficits, speech is clear, no peripheral sensory deficits Principal Diagnosis Nonobstructive CAD x moderate Hypertension COPD Tobacco dependence Obesity Discharge Exam GENERAL: Alert and oriented x3. NAD, on RA. Obese class I. HEENT: No pallor, no icterus. Pupils equal, round and reactive to light. Oral mucosa moist. NECK: No JVD, no neck masses. HEART: S1 and S2 heard. Regular rate and rhythm. No murmur, no gallop. RESPIRATORY SYSTEM: Normal AP diameter. No accessory muscle use. No wheezing, no crackles. Bilateral decreased breath sounds. ABDOMEN: Soft, bowel sounds present, nontender, no distention. CENTRAL NERVOUS SYSTEM: No facial droop. Speech is clear. Obeys simple commands. Moves extremities. EXTREMITIES: No edema, no erythema seen. Discharge Data Allergies Allergy/AdvReac Type Severity Reaction Status Date / Time No Known Allergies Allergy Verified 07/29/22 15:31 Consultations 03/06/23 08:52 ED Decision to Admit Stat 03/06/23 11:22 Consult Cardiology Routine 03/09/23 07:00 Consult Cardiac Catheterization Routine Procedures Performed Operation Date: 03/09/23 08:00 Actual Procedures p Cineradiography w/Routine Exam - Trev Bond DO p Cath, Left with Cors and Vent - Trev Bond DO Ordered Studies 03/06/23 05:48 CT angio chest PE protocol Stat 03/09/23 08:21 CL Cath Imgs for PACS use only Routine Hospital Course (1) Chest pain: Plan 57-year-old male with PMH of HTN, HLD, peripheral neuropathy, shingles x right eye, chronic lumbar back pain, tobacco dependence presented with chest tightness that started 3:30 AM on the day of arrival, lasted for about 10 minutes. Patient does report having shortness of breath with minimal activities for over a year and he smokes 1 pack a day, smoking since age 10. He was managed for the following: (1) Chest pain: (2) Hypertension: Patient presents with chest tightness, first troponin at presentation WNL, then up trended. EKG without acute ST or T changes. Echo without regional wall motion abnormality, EF of 60 to 65%, grade 1 diastolic dysfunction, moderate concentric LVH. LDL 79 and A1c 5.5% s/p heart cath -moderate nonobstructive CAD Blood pressure elevated at presentation, patient reports he missed his doses of hydrochlorothiazide several days prior to presentation, continue home medications and started coreg this admission. Coreg, Aspirin and atorvastatin started this admission. Cardiology on board, appreciate recommendation. BP Better. PT/OT/2 Step test wnl. (3) Chronic obstructive pulmonary disease: (4) Tobacco dependence: - CTA chest completed showing emphysema, no PE, stable pulmonary nodules. - Tobacco cessation counseled at bedside, patient reports he has quit cold turkey with smoking cigarettes previously, no nicotine for now due to being a vasoconstrictor and here for acute chest heaviness and ACS rule out - Consider pulmonary follow-up as an outpatient, will benefit from PFT and PSG as OP, pt made aware to coordinate with PCP to set up the test. Anoro started. 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 Encouraged him to meal prep at least 2 meals on weekends to aid in healthy meals during the week due to work schedule. DVT ppx: heparin drip CODE: Full code Patient being discharged home with following instruction at the point of discharge: Follow-up with your primary care physician within a week time and likely you will need labs CBC/CMP/magnesium/phosphorus. Cardiology evaluated you while in hospital, you underwent heart cath, your medications has been optimized. You might benefit from sleep study as an outpatient, coordinate with your PCP office for setting up the test. For your COPD, you will need pulmonary function test as an outpatient, coordinate with your PCP office. You might need referral to manager management as an outpatient. You are started on Anoro on discharge. Recommend smoking cessation and discussed at the bedside to facilitate the chronic management of your COPD. Recommend weight loss, healthy lifestyle and regular exercise regimen. Take your medications as prescribed. Please make sure that you are able to get your medications today by calling your pharmacy before you leave the hospital so that your treatment continuity is not broken. Home Health Attestation I certify that this patient is under my care and that I, or a physicians sales office assistant working with me, had a face to-face encounter that meets the home health [id number] encounter requirements with this patient. The encounter with the patient was in whole, or in part, for the following medical condition, which is the primary reason for home health care (list medical condition): I certify that, based on my findings, the following services are medically necessary home health services: My clinical findings support the need for the above services because: Further, I certify that my clinical findings support that this patient is homebound (i.e. absences from home require considerable and taxing effort and are for medical reasons or samaritan services or infrequently or of short duration when for other reasons) because: Certification for Home Health Services: Based on the above findings, I certify that this patient is confined to the home and needs intermittent longterm care, physical therapy and/or speech therapy or continues to need occupational therapy. The patient is under my care, and I have initiated the establishment of the plan of care. This patient will be followed by a physician who will periodically review the plan of care. Total Time Total Time Spent Total Time Spent (In Minutes): 45 Discharge Plan Discharge Items Patient Disposition: Home - Self-Care Reason For Visit: NSTEMI Discharge Diagnosis: Nonobstructive CAD x moderate Hypertension COPD Tobacco dependence Obesity Activity: Resume your previous activity Non-emergency contact: Primary Care Provider Call non-emergency contact if: you have any medication questions, your symptoms worsen and your temperature is above 101 Follow-up/Referrals: Oesterling,Omer R., MD [Primary Care Provider] - (Date & Time 03/11/2023 10:00 AM Provider Munir Dickens MD [facility] ) Diet: Heart Healthy and Low Sodium (2gm) Addtl Attending Provider Instructions: Follow-up with your primary care physician within a week time and likely you will need labs CBC/CMP/magnesium/phosphorus. Cardiology evaluated you while in hospital, you underwent heart cath, your medications has been optimized. You might benefit from sleep study as an outpatient, coordinate with your PCP office for setting up the test. For your COPD, you will need pulmonary function test as an outpatient, coordinate with your PCP office. You might need referral to manager management as an outpatient. You are started on Anoro on discharge. Recommend smoking cessation and discussed at the bedside to facilitate the chronic management of your COPD. Recommend weight loss, healthy lifestyle and regular exercise regimen. Take your medications as prescribed. Please make sure that you are able to get your medications today by calling your pharmacy before you leave the hospital so that your treatment continuity is not broken. Pending Studies at Discharge: No Stand-Alone Forms: My [facility], Smoking Cessation Medications and DC Order Prescriptions: New Anoro Ellipta 62.5-25 mcg/actuation Blister With Device 1 ea inhalation DAILY Qty: 60 0RF atorvastatin 40 mg Tablet 80 mg PO DAILY Qty: 60 0RF carvedilol 6.25 mg Tablet 6.25 mg PO BID Qty: 60 0RF aspirin 81 mg Tablet,Delayed Release (Dr/Ec) 81 mg PO QAM Qty: 30 0RF Continued lisinopril 10 mg tablet 10 mg PO QAM hydrochlorothiazide 25 mg tablet 25 mg PO QAM gabapentin 100 mg Capsule 100 mg PO TID Prilosec OTC 20 mg PO DAILY albuterol sulfate 90 mcg/actuation HFA aerosol inhaler 2 puff inhalation Q4H PRN (Reason: Shortness Of Breath Or Wheezing) Qty: 8.5 0RF Discontinued ibuprofen [Advil] 200 mg Tablet 400 mg PO Q6H PRN (Reason: Pain) Discharge Orders: Discharge Order (Routine); Ordered 03/09/23 Ordered By: Edgar Ellis Admission Data Admit Date/Time: 03/06/23 09:07 Attending Provider: Edgar Ellis Admit Provider: Rajwinder Mcclellan Primary Care Provider: Omer Wayne Other Providers: Edgar Ellis ; Garret Marlow ; Trev Bond
== END 2023-03-09 16:54 | disposition home or self-care (01) | DRG 287 ==
LOC: ED 05:20 → 2S 09:07 → SUATTDRO 09:07 → 2S 10:45
DX: G89.29 Other chronic pain; I25.10 Atherosclerotic heart disease of native coronary artery without angina pectoris; G62.9 Polyneuropathy, unspecified; M54.9 Dorsalgia, unspecified; Z68.32 Body mass index [BMI] 32.0-32.9, adult; J44.9 Chronic obstructive pulmonary disease, unspecified; E78.5 Hyperlipidemia, unspecified; Z79.899 Other long term (current) drug therapy; E66.9 Obesity, unspecified; F17.210 Nicotine dependence, cigarettes, uncomplicated; I16.0 Hypertensive urgency

== ENCOUNTER 2023-03-16 14:21 | Observation (INO) ==
--- NOTE | 2023-03-16 14:44 | ED Triage Note ---
Date of Service March 16, 2023 History of Present Illness This patient was briefly evaluated while in triage. An abbreviated physical exam was performed. This patient is a 57-year-old Male who was recently admitted for CP, elevated troponin, had cardiac cath, was referred to the ED by PCP for decreased kidney function compared to baseline. He states he was told it was 25% of normal compared to 60% from last year. He does not have any other symptoms at this time. No CP, SOB, is still producing urine. Denies any swelling. Did not take his HCTZ today. Physical Exam CONSTITUTIONAL: in no acute pain or distress, resting comfortably SKIN: pink, warm, dry CARDIAC: regular rate and rhythm RESPIRATORY: in no respiratory distress, lungs clear to auscultation MSK: No edema in lower extremities Initial orders for labs and / or imaging were placed and patient was placed directly into a room for full evaluation. Please see further documentation for the full ED course.
[2023-03-16] MEDS ORDERED: SODIUM CHLORIDE 0.9% 1000ML 1,000 ML IV ONE (15:22)
--- NOTE | 2023-03-16 15:33 | History & Physical Report ---
Date of Service March 16, 2023 Assessment & Plan (1) Acute renal failure: Plan: Likely a combination of contrast induced nephropathy related to CT scan and recent catheterization (two separate doses) in setting of diuretic and TONIA inhibitor use. He is asymptomatic. Hold lisinopril and HCTZ (last dose was this AM 03/16) and continue with IVF. Repeat BMP and Mag in am. Baseline creatinine is 1.0-1.2 (2) Elevated transaminase level: Plan: Recently started on atorvastatin 80mg daily, however, within two days, AST/ALT had increased, so uncertain how much statin has to do with this. Will obtain ultrasound of the liver. Previously had one in 2019 that was normal. Outpatient records reviewed and AST/ALT not historically elevated. (3) Tobacco use disorder: Plan: Praised for decrease in smoking to 1/2 PPD. Nicoderm patch. Smoking cessation recommended. (4) Chronic obstructive pulmonary disease: Plan: chronic, stable. Cont daily Anoro inhaler, smoking cessation (5) Hypertension: Plan: chronic, stable. Monitor off antihypertensives. Cont to hold lisinopril and HCTZ in setting of renal failure. DVT proph: Heparin/SCDs/ambulation Full COde Dispo: to home in 1-2 days when renal function returns to normal Rajwinder Mcclellan DO [facility] Hospitalist History of Present Illness Chief Complaint: referred by sadia OLIVEROS Primary Care Provider: Omer Wayne MD 57 yo M presents today as a referral from his PCP, who noted his creatinine was 2.9, up from baseline 1.2. K was also 5.0, bicarb was 21, ca was 10.3, and he had a slight elevation of transaminases. He is on lisinopril and HCTZ for HTN and Dr. Dickens instructed him to stop both agents and come to the ER for treatment. He recently was hospitalized 03/06-03/09 and underwent a cardiac catheterization with no significant cardiac disease and no placement of stents. Smoking cessation was recommended at that time. He was started on coreg, baby aspirin and atorvastatin at discharge and has been tolerating these. He reports adequate hydration daily with 32-64oz of water and reports eating normally. He has been compliant with his lisinopril and HCTZ as prescribed. Allergies Allergy/AdvReac Type Severity Reaction Status Date / Time No Known Allergies Allergy Verified 03/16/23 15:29 Home Medications Medication Instructions Recorded Confirmed Type lisinopril 10 mg tablet 10 mg PO QAM 08/15/20 03/16/23 History hydrochlorothiazide 25 mg tablet 25 mg PO QAM 06/24/21 03/16/23 History albuterol sulfate 90 mcg/actuation 2 puff inhalation Q4H PRN 03/09/23 03/16/23 Rx aerosol inhaler Shortness Of Breath Or Wheezing #8.5 grams aspirin 81 mg tablet,delayed 81 mg PO QAM #30 tabs 03/09/23 03/16/23 Rx release umeclidinium 62.5 mcg-vilanterol 1 ea inhalation DAILY #60 ea 03/09/23 03/16/23 Rx 25 mcg/actuation powdr for inhalation (Anoro Ellipta) atorvastatin 80 mg tablet 80 mg PO QAM 03/16/23 03/16/23 History carvedilol 6.25 mg tablet 6.25 mg PO BID 03/16/23 03/16/23 History gabapentin 100 mg capsule 100 mg PO TID PRN Pain 03/16/23 03/16/23 History sildenafil (pulm.hypertension) 20 20 - 100 mg PO DIRECTED PRN 03/16/23 03/16/23 History mg tablet (Revatio) Sexual Activity Past Med/Surg History Medical History Asthma Stable Chronic obstructive pulmonary disease Stable History of shingles 05/2022, currently still taking gabapentin for chronic right eye irritation/pain from shingles Hx of seasonal allergies Hypertension Plaque psoriasis Spinal stenosis Tobacco use disorder Surgical History History of back surgery History of esophagogastroduodenoscopy (EGD) Hx of arthroscopic knee surgery Left Hx of foot surgery Left Hx of inguinal hernia repair Family History Father Diabetes Social History Smoking Status: Current every day smoker Tobacco Type: Cigarettes Cigarettes Per Day: 30 cigs/day; Second Hand Exposure: No; Do You Dip or Chew Tobacco: No; Hx Alcohol Use: Yes Alcohol type: other Hx Substance Use: No Preferred Language: Slovak Communication Ability: Effective Rn Home Care Required: No Beliefs That Will Affect Care: None Current Living Situation: Parent Current Living Situation Comment: mom lives in own portion of the home Feels Safe at Home: Yes Safety Concerns: Feels Safe At This Time Assistive Devices: None Review of Systems Review of Systems: All systems were reviewed and negative except as indicated on HPI above. Physical Exam Physical Exam: CONSTITUTIONAL: WNWD, vitals as above, generally well-appearing, NAD EYES: normal conjunctivae, no scleral icterus ENT: external ear and nose normal, oropharynx clear, MMM NECK: trachea midline RESPIRATORY: clear to auscultation bilaterally, no crackles, rales or wheezes, normal respiratory effort CARDIOVASCULAR: regular rate and rhythm, S1 and 2 heard without murmurs, gallops or rubs, no JVD, no peripheral edema CHEST: inspection of chest was normal GASTROINTESTINAL: soft, nontender, ND no guarding MUSCULOSKELETAL: strength 5/5 throughout, head is normocephalic and atraumatic, neck supple, normal palpation of chest wall without tenderness SKIN: warm and dry, no rashes NEUROLOGIC: CN 2-12 grossly intact, no sensory deficit, normal cognition, normal speech, no tremor PSYCHIATRIC: alert cooperative and oriented to person, place and time. Euthymic mood, makes good eye contact, language grossly intact, recent and remote memory grossly intact. Results & Data Results & Data Vital Signs (Past 12 Hours) Vital Signs Temp Pulse Pulse Resp BP BP Pulse Ox 03/16/23 14:53 81 03/16/23 14:54 84 22 119/78 95 03/16/23 14:35 36.9 C 89 16 132/82 94 O2 Del Method 03/16/23 14:53 03/16/23 14:54 Room Air 03/16/23 14:35 Room Air Laboratory Results Short CBC 03/16/23 Range/Units 14:55 WBC 10.38 (4.8-10.8) K/ul Hgb 11.0 L (14.0-18.0) g/dl Hct 32.4 L (42.0-52.0) % Plt Count 339 (130-400) K/uL BMP 03/16/23 14:55 Sodium 133 L Potassium 4.7 Chloride 105 Carbon Dioxide 20 L BUN 57 H Creatinine 2.59 H Glucose 101 H Calcium 10.1 Liver Function 03/16/23 Range/Units 14:55 Total Bilirubin 0.5 (0.2-1.0) mg/dl AST 23 (13-39) U/L ALT 26 (7-52) U/L Alkaline Phosphatase 73 (34-104) U/L Albumin 4.0 (3.4-5.0) gm/dl Medications Administered Current Inpatient Medications Acetaminophen (Acetaminophen 325 Mg Tab) 650 mg PO Q4H PRN PRN Reason: Pain or Fever Stop: 04/15/23 16:55 Polyethylene Glycol (Polyethylene (Miralax) 17 Gm Pack) 17 gm PO DAILY PRN PRN Reason: Constipation Stop: 04/15/23 16:55
[2023-03-16 15:37] LABS: Basophils # (auto) 0.06 K/uL (0-0.2); Basophils % (auto) 0.6 %; Eosinophils # (auto) 0.11 K/uL (0-0.50); Eosinophils % (auto) 1.1 %; Hematocrit (blood only) 32.4 % (42.0-52.0); Immature Granulocytes # (auto) 0.05 K/uL (0.01-0.20); Immature Granulocytes % (auto) 0.5 %; Lymphocytes % (auto) 13.5 %; Mean Corpuscular Hemoglobin 36.2 pg (25.0-34.0); Mean Corpuscular Volume 106.6 fL (80.0-100.0); Mean Platelet Volume 9.8 fL (9.4-12.4); Monocytes # (auto) 1.33 K/uL (0.11-0.59); Monocytes % (auto) 12.8 %; Neutrophils # (auto) 7.43 K/uL (1.40-6.50); Neutrophils % (auto) 71.5 %; Platelet Count 339 K/uL (130-400); RDW Coefficient of Variation 12.4 % (11.5-14.5); RDW Standard Deviation 48.4 fL (36.4-46.3); Red Blood Count 3.04 M/uL (4.70-6.10); White Blood Count 10.38 K/ul (4.8-10.8)
[2023-03-16 15:41] LABS: Albumin Globulin Ratio 1.1 (0.9-2); Bilirubin,Total 0.5 mg/dl (0.2-1.0); Calcium 10.1 mg/dl (8.6-10.3); Creatinine Clr Calc Pharmacy 40.5 ml/min; Est GFR (African American) 30.1 ml/min; Globulin 3.7 gm/dl (2.5-4.0); Potassium 4.7 mmol/L (3.5-5.1); Total Protein 7.7 gm/dl (6.0-8.3)
--- NOTE | 2023-03-16 16:13 | Emergency Department Note ---
Impression & Plan ALESSANDRO (acute kidney injury), Anemia ED Provider Note NAME: PAVITHRA CHENG AGE: 57 SEX: M : 1965 ARRIVES VIA: Walk-In INFORMANT: Patient ED PROVIDER(S): Abdelrahman Senior DO CHIEF COMPLAINT: ALESSANDRO HPI: Patient is a 57-year-old male who presents to the ER for acute renal herb [place]. He had a catheterization last week and had follow-up blood work done in [place] and it was elevated. He had repeat blood work done today and was consequently referred in. Patient denies any headache or change in vision. No chest pain or shortness of breath. No nausea vomiting or diarrhea. He has not been eating or drinking well anything different than usual. No other exacerbating or remitting factors. PAST MEDICAL HISTORY:See Below PAST SURGICAL HISTORY:See Below FAMILY HISTORY:See Below SOCIAL HISTORY:See Below HOME MEDICATIONS:See Below ALLERGIES:See Below VITALS:See Below PHYSICAL EXAMINATION: GENERAL: Sitting up in bed, alert, well appearing, well nourished, no distress, non-toxic EYE EXAM: normal conjunctiva. OROPHARYNX: mucous membranes are moist LUNGS: Clear to auscultation. Normal chest wall mechanics HEART: no murmurs, S1 normal and S2 normal ABDOMEN: abdomen soft, non-tender, normo-active bowel sounds, no masses, no rebound or guarding. UPPER EXTREMITIES: upper extremities are grossly normal. LOWER EXTREMITIES: No pitting edema. NEURO EXAM: Normal sensorium, cranial nerves II-XII grossly intact, normal speech, no gross weakness of arms, no gross weakness of legs. MEDICAL DECISION MAKING: Patient is a 57-year-old male who presents ER for above-stated complaint. IV was established blood work was obtained. External records reviewed. Labs show no significant leukocytosis. Mild anemia at 11. BMP with mild hyponatremia 133. Creatinine at 2.5 down from threes earlier this week. LFTs bilirubin was unremarkable. COVID was negative. Patient was given a liter of IV fluids. He was updated bedside. He was discussed with Dr. Mcclellan for further evaluation management treatment. Triage Nursing notes reviewed. Limited review of prior medical records performed Vital Signs: reviewed and remarkable for no significant abnormalities Differential diagnosis: Infection, dehydration, metabolic abnormality, hypo/hyperglycemia, electrolyte disturbance, anemia, hypoxia, cardiac sources, intracerebral event, toxicologic, neurologic, as well as other pathologies. ER treatment provided: See below Diagnostics interpreted by me include EKG and cardiac monitoring as listed below: -Cardiac Monitoring: An order was placed for continuous cardiac monitoring. The monitor shows a rate of 80 with sinus rhythm. -ECG: none -Laboratory studies:Interpreted by me as stated above in MDM and shown below. 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 Hx of seasonal allergies Hypertension Plaque psoriasis Spinal stenosis Tobacco use disorder Surgical History History of back surgery History of esophagogastroduodenoscopy (EGD) Hx of arthroscopic knee surgery Left Hx of foot surgery Left Hx of inguinal hernia repair Family History Father Diabetes Social History Smoking Status: Current every day smoker Tobacco Type: Cigarettes Cigarettes Per Day: 30 cigs/day; Second Hand Exposure: No; Do You Dip or Chew Tobacco: No; Hx Alcohol Use: Yes Alcohol type: beer Hx Substance Use: No Preferred Language: [place] Communication Ability: Effective Train Attendant Required: No Beliefs That Will Affect Care: None Current Living Situation: Family Current Living Situation Comment: mom lives in own portion of the home Feels Safe at Home: Yes Assistive Devices: None Allergies Allergies Allergy/AdvReac Type Severity Reaction Status Date / Time No Known Allergies Allergy Verified 03/16/23 15:29 Home Meds Home Medications Medication Instructions Recorded Confirmed lisinopril 10 mg tablet 10 mg PO QAM 08/15/20 03/16/23 hydrochlorothiazide 25 mg tablet 25 mg PO QAM 06/24/21 03/16/23 atorvastatin 80 mg tablet 80 mg PO QAM 03/16/23 03/16/23 gabapentin 100 mg capsule 100 mg PO TID PRN Pain 03/16/23 03/16/23 sildenafil (pulm.hypertension) 20 20 - 100 mg PO DIRECTED PRN 03/16/23 03/16/23 mg tablet (Revatio) Sexual Activity Previous Rx's Medication Instructions Recorded albuterol sulfate 90 mcg/actuation 2 puff inhalation Q4H PRN 03/09/23 aerosol inhaler Shortness Of Breath Or Wheezing #8.5 grams aspirin 81 mg tablet,delayed 81 mg PO QAM #30 tabs 03/09/23 release umeclidinium 62.5 mcg-vilanterol 1 ea inhalation DAILY #60 ea 03/09/23 25 mcg/actuation powdr for inhalation (Anoro Ellipta) Results & Data (ED) Vital Signs Vital Signs - 24 hr 03/16/23 14:35 03/16/23 14:54 03/16/23 14:53 Temperature 36.9 C Temperature Source Temporal Artery Scan Pulse Rate 89 81 Pulse Rate [Left Apical] 84 Respiratory Rate 16 22 Blood Pressure 132/82 Blood Pressure [Right Arm] 119/78 Blood Pressure Mean 98 Blood Pressure Mean [Right Arm] 91 Pulse Oximetry 94 95 Oxygen Delivery Method Room Air Room Air Sepsis Recent Fever Within 48 Hours No Sepsis New/Unexplained Change in Mental Status No Sepsis Action Taken by Nursing No Action Required 03/16/23 15:00 03/16/23 15:30 03/16/23 15:57 Temperature Temperature Source Pulse Rate 79 77 78 Pulse Rate [Left Apical] Respiratory Rate 22 20 26 H Blood Pressure 119/76 113/86 126/90 Blood Pressure [Right Arm] Blood Pressure Mean 90 95 102 Blood Pressure Mean [Right Arm] Pulse Oximetry 94 94 95 Oxygen Delivery Method Room Air Room Air Room Air Sepsis Recent Fever Within 48 Hours Sepsis New/Unexplained Change in Mental Status Sepsis Action Taken by Nursing Laboratory Data 03/16/23 14:55 03/16/23 14:55 Lab Results 03/16/23 03/16/23 03/16/23 Range/Units 14:55 14:55 15:08 WBC 10.38 (4.8-10.8) K/ul RBC 3.04 L (4.70-6.10) M/uL Hgb 11.0 L (14.0-18.0) g/dl Hct 32.4 L (42.0-52.0) % MCV 106.6 H (80.0-100.0) fL MCH 36.2 H (25.0-34.0) pg MCHC 34.0 (32.0-36.0) g/dL RDW Std Deviation 48.4 H (36.4-46.3) fL RDW Coeff of Rogelio 12.4 (11.5-14.5) % Plt Count 339 (130-400) K/uL MPV 9.8 (9.4-12.4) fL Immature Gran % (Auto) 0.5 % Neut % (Auto) 71.5 % Lymph % (Auto) 13.5 % [place] % (Auto) 12.8 % Eos % (Auto) 1.1 % Baso % (Auto) 0.6 % Neut # (Auto) 7.43 H (1.40-6.50) K/uL Lymph # (Auto) 1.40 (1.2-3.4) K/uL [place] # (Auto) 1.33 H (0.11-0.59) K/uL Eos # (Auto) 0.11 (0-0.50) K/uL Baso # (Auto) 0.06 (0-0.2) K/uL Immature Gran # (Auto) 0.05 (0.01-0.20) K/uL Sodium 133 L (136-145) mmol/L Potassium 4.7 (3.5-5.1) mmol/L Chloride 105 (98-107) mmol/L Carbon Dioxide 20 L (21-32) mmol/L Anion Gap 8 (3-11) BUN 57 H (6-23) mg/dl Creatinine 2.59 H (0.6-1.4) mg/dl Est Cr Clr Drug Dosing 40.5 ml/min Est GFR ( Amer) 30.1 ml/min Est GFR (Non-Af Amer) 26.0 ml/min BUN/Creatinine Ratio 22.0 H (10-20) Glucose 101 H (70-99(Fasting)) mg/dl Calcium 10.1 (8.6-10.3) mg/dl Total Bilirubin 0.5 (0.2-1.0) mg/dl AST 23 (13-39) U/L ALT 26 (7-52) U/L Alkaline Phosphatase 73 (34-104) U/L Total Protein 7.7 (6.0-8.3) gm/dl Albumin 4.0 (3.4-5.0) gm/dl Globulin 3.7 (2.5-4.0) gm/dl Albumin/Globulin Ratio 1.1 (0.9-2) SARS-CoV-2, RNA, NAAT NEGATIVE (NEGATIVE) Administered Medications Sodium Chloride (Nss 1000ml) 1,000 mls @ 999 mls/hr IV .Q1H1M ONE Stop: 03/16/23 16:22 Last Admin: 03/16/23 15:49 Dose: 999 mls/hr Documented By: [facility] Discharge Plan Visit Data Chief Complaint: Referred by Doctor Stated Complaint: REF BY DOC; KIDNEY ISSUE ED Provider: Abdelrahman Senior Discharge Problem: ALESSANDRO (acute kidney injury), Anemia Patient Disposition: Admitted As Inpatient Discharge Instructions Interventions: ED Discharge Assessment Last Done: 03/16/23 16:02 Forms Stand Alone Forms: My [facility] [place] [employer] Prescriptions Prescriptions: No Action lisinopril 10 mg tablet 10 mg PO QAM Rx Instructions: PER PT " TOLD ME NOT TO TAKE ANYMORE".03/16/23 hydrochlorothiazide 25 mg tablet 25 mg PO QAM atorvastatin 80 mg tablet 80 mg PO QAM sildenafil (pulm.hypertension) [Revatio] 20 mg Tablet 20 - 100 mg PO DIRECTED PRN (Reason: Sexual Activity) Rx Instructions: TAKE 1 HOUR PRIOR TO SEXUAL INTERCOURSE. gabapentin 100 mg capsule 100 mg PO TID PRN (Reason: Pain) Anoro Ellipta 62.5-25 mcg/actuation Blister With Device 1 ea inhalation DAILY Qty: 60 0RF aspirin 81 mg Tablet,Delayed Release (Dr/Ec) 81 mg PO QAM Qty: 30 0RF albuterol sulfate 90 mcg/actuation HFA aerosol inhaler 2 puff inhalation Q4H PRN (Reason: Shortness Of Breath Or Wheezing) Qty: 8.5 0RF Referrals Referrals: Omer Wayne MD [Primary Care Provider] -
[2023-03-16] MEDS ORDERED: ACETAMINOPHEN 325 MG TAB PO PRN (16:56)
[2023-03-16] MEDS ORDERED: POLYETHYLENE (MIRALAX) 17 GM PACK PO PRN (16:56)
[2023-03-16 17:35] LABS: Appearance Urine Clear (Clear); Bacteria Urine Automated Negative (Negative); Bilirubin Urine Negative (Negative); Blood Urine Negative (Negative); Cast Urine Automated 0 /lpf (0-5); Color Urine Yellow; Epithelial Cell Urine Auto 0-5 /lpf (0-5); Glucose Urine UA Negative (Negative); Ketones Urine Negative (Negative); Leukocyte Esterase Urine Negative (Negative); Nitrite Urine Negative (Negative); Protein Urine 1+ (Negative); RBC Urine Automated 0-4 /hpf (0-4); Specific Gravity Urine 1.019 (1.000-1.030); Urobilinogen Urine Negative (Negative); WBC Urine Automated 0 /hpf (0-5)
[2023-03-16] MEDS ORDERED: GABAPENTIN 100 MG CAP PO PRN (17:41)
[2023-03-16] MEDS: LACTATED RINGER'S 1,000 ML IV SCH (17:53)
[2023-03-16] MEDS: carvediloL 6.25 MG TAB PO SCH (19:30)
[2023-03-17] MEDS: LACTATED RINGER'S 1,000 ML IV SCH ×2 (00:22→08:12)
[2023-03-17 06:33] LABS: Albumin Globulin Ratio 1.1 (0.9-2); Albumin Level 3.5 gm/dl (3.4-5.0); BUN Creatinine Ratio 24.5 (10-20); Bilirubin,Total 0.5 mg/dl (0.2-1.0); Est GFR (African American) 44.3 ml/min; Est GFR (Non-African American) 38.2 ml/min; Globulin 3.1 gm/dl (2.5-4.0); Magnesium 1.4 mg/dl (1.7-2.4); Potassium 5.1 mmol/L (3.5-5.1); Total Protein 6.6 gm/dl (6.0-8.3)
--- NOTE | 2023-03-17 07:09 | Ultrasound Report ---
US liver CLINICAL HISTORY: elevated LFTs COMPARISON STUDY: CT of the abdomen and pelvis June 24, 2021. FINDINGS: Hepatic echogenicity is increased. No hepatic lesions are identified. There is no biliary d uctal dilatation. Pancreatic body is normal. Head and tail are obscured by overlying bowel gas. No ga llstones are noted. Gallbladder is contracted. This likely accounts for mild gallbladder wall thicken ing. No sonographic Pete sign was elicited. There is no right hydronephrosis. IMPRESSION: 1. No gallstones or biliary ductal dilatation. 2. Hepatic steatosis. 3. Partially obscured pancreas. ACT 112: Negative or not required by law. Electronically signed by: Quan Tripp M.D. 03/17/2023 7:08 AM
[2023-03-17] MEDS: carvediloL 6.25 MG TAB PO SCH (08:13)
[2023-03-17] MEDS ORDERED: UMECLIDINIUM/VILANTEROL 62.5/25MCG 7 PUFFS/INHALER INH SCH (09:00)
[2023-03-17] MEDS ORDERED: ATORVASTATIN 40 MG TAB PO SCH (09:00)
[2023-03-17] MEDS ORDERED: ASPIRIN 81 MG ECTAB PO SCH (09:00)
--- NOTE | 2023-03-17 12:27 | Hospitalist Progress Note ---
Date of Service March 17, 2023 Assessment & Plan (1) Acute renal failure: Plan: Multifactorial(prerenal, possible contrast-induced nephropathy, medications) Patient was sent over to the ED by his primary care doctor after he was found to have creatinine of 2.9, potassium of 5.0, bicarb of 21. Recently hospitalized earlier in February; underwent cardiac catheterization. Labs reviewed from today; creatinine down trended from 2.9 to 1.88 with IV hydration Potassium 5.1 today. Bicarb 22 and anion gap of 6. Continue IV hydration with LR at 100 cc/h. Hold lisinopril and hydrochlorothiazide. If he continues to be normotensive; will stop the medications at discharge. Restart at lower dose as outpatient if BP increases. Continue on Coreg for now. Likely a combination of contrast induced nephropathy related to CT scan and recent catheterization (two separate doses) in setting of diuretic and TOINA inhibitor use. He is asymptomatic. Hold lisinopril and HCTZ (last dose was this AM 03/16) and continue with IVF. Repeat BMP and Mag in am. Baseline creatinine is 1.0-1.2 (2) Elevated transaminase level: Plan: Found to have slight elevation of liver enzymes as outpatient. AST/ALT within normal limits during evaluation here. Continue on current medications Ultrasound of the liver done which showed hepatic steatosis (3) Tobacco use disorder: Plan: Praised for decrease in smoking to 1/2 PPD. Nicoderm patch. Smoking cessation recommended. (4) Chronic obstructive pulmonary disease: Plan: chronic, stable. Cont daily Anoro inhaler, smoking cessation (5) Hypertension: Plan: chronic, stable. Monitor off antihypertensives. Cont to hold lisinopril and HCTZ in setting of renal failure. Continue coreg for now DVT proph: Heparin/SCDs/ambulation Full COde Dispo: to home in 1-2 days when renal function returns to normal Time spent evaluating patient, direct bedside care, chart review, placing orders, interpretation of diagnostic studies, discussion with consultants, patient, and family members, as well as other required patient management activities is 60 minutes. Please note the above document was generated using voice recognition software. It may contain grammatical, syntax or spelling errors. Any formal questions or concerns about the content, text or information contained within the body of this dictation should be directly addressed to the provider for clarification Admission and Anticipated Discharge Date Admission Date: March 16, 2023 Subjective Patient seen and examined at bedside. He is comfortably lying on the bed; not in distress. Denies any fever, chills, chest pain, shortness of breath, abdominal pain or urinary symptoms. Review of Systems Review of Systems: All systems reviewed & are unremarkable except as noted in Subjective Physical Exam Physical Exam: CONSTITUTIONAL: WNWD, vitals as above, generally well-appearing, NADe RESPIRATORY: clear to auscultation bilaterally, no crackles, rales or wheezes, normal respiratory effort CARDIOVASCULAR: regular rate and rhythm, S1 and 2 heard without murmurs, gallops or rubs, no JVD, no peripheral edema CHEST: inspection of chest was normal GASTROINTESTINAL: soft, nontender, ND no guarding MUSCULOSKELETAL: strength 5/5 throughout, head is normocephalic and atraumatic, neck supple, normal palpation of chest wall without tenderness SKIN: warm and dry, no rashes NEUROLOGIC: CN 2-12 grossly intact, no sensory deficit, normal cognition, normal speech, no tremor PSYCHIATRIC: alert cooperative and oriented to person, place and time. Euthymic mood, makes good eye contact, language grossly intact, recent and remote memory grossly intact. Results & Data Results & Data Vital Signs (Past 12 Hours) Vital Signs Temp Pulse Pulse Resp BP Pulse Ox O2 Del Method 03/17/23 11:00 36.7 C 72 18 109/71 95 Room Air 03/17/23 09:36 Room Air 03/17/23 09:02 67 03/17/23 07:30 36.6 C 69 16 114/69 94 Room Air 03/17/23 03:34 36.8 C 67 18 99/66 L 94 Room Air Laboratory Results Laboratory Results WBC 10.38 K/ul (4.8-10.8) 03/16/23 14:55 RBC 3.04 M/uL (4.70-6.10) L 03/16/23 14:55 Hgb 11.0 g/dl (14.0-18.0) L 03/16/23 14:55 Hct 32.4 % (42.0-52.0) L 03/16/23 14:55 MCV 106.6 fL (80.0-100.0) H 03/16/23 14:55 MCH 36.2 pg (25.0-34.0) H 03/16/23 14:55 MCHC 34.0 g/dL (32.0-36.0) 03/16/23 14:55 RDW Std Deviation 48.4 fL (36.4-46.3) H 03/16/23 14:55 RDW Coeff of Rogelio 12.4 % (11.5-14.5) 03/16/23 14:55 Plt Count 339 K/uL (130-400) 03/16/23 14:55 MPV 9.8 fL (9.4-12.4) 03/16/23 14:55 Immature Gran % (Auto) 0.5 % 03/16/23 14:55 Neut % (Auto) 71.5 % 03/16/23 14:55 Lymph % (Auto) 13.5 % 03/16/23 14:55 [place] % (Auto) 12.8 % 03/16/23 14:55 Eos % (Auto) 1.1 % 03/16/23 14:55 Baso % (Auto) 0.6 % 03/16/23 14:55 Neut # (Auto) 7.43 K/uL (1.40-6.50) H 03/16/23 14:55 Lymph # (Auto) 1.40 K/uL (1.2-3.4) 03/16/23 14:55 [place] # (Auto) 1.33 K/uL (0.11-0.59) H 03/16/23 14:55 Eos # (Auto) 0.11 K/uL (0-0.50) 03/16/23 14:55 Baso # (Auto) 0.06 K/uL (0-0.2) 03/16/23 14:55 Immature Gran # (Auto) 0.05 K/uL (0.01-0.20) 03/16/23 14:55 Sodium 134 mmol/L (136-145) L 03/17/23 05:50 Potassium 5.1 mmol/L (3.5-5.1) 03/17/23 05:50 Chloride 106 mmol/L (98-107) 03/17/23 05:50 Carbon Dioxide 22 mmol/L (21-32) 03/17/23 05:50 Anion Gap 6 (3-11) 03/17/23 05:50 BUN 46 mg/dl (6-23) H 03/17/23 05:50 Creatinine 1.88 mg/dl (0.6-1.4) H D 03/17/23 05:50 Est Cr Clr Drug Dosing 56.0 ml/min 03/17/23 05:50 Est GFR ( Amer) 44.3 ml/min 03/17/23 05:50 Est GFR (Non-Af Amer) 38.2 ml/min 03/17/23 05:50 BUN/Creatinine Ratio 24.5 (10-20) H 03/17/23 05:50 Glucose 94 mg/dl (70-99(Fasting)) 03/17/23 05:50 Calcium 9.0 mg/dl (8.6-10.3) 03/17/23 05:50 Magnesium 1.4 mg/dl (1.7-2.4) L 03/17/23 05:50 Total Bilirubin 0.5 mg/dl (0.2-1.0) 03/17/23 05:50 AST 19 U/L (13-39) 03/17/23 05:50 ALT 21 U/L (7-52) 03/17/23 05:50 Alkaline Phosphatase 61 U/L (34-104) 03/17/23 05:50 Total Protein 6.6 gm/dl (6.0-8.3) 03/17/23 05:50 Albumin 3.5 gm/dl (3.4-5.0) 03/17/23 05:50 Globulin 3.1 gm/dl (2.5-4.0) 03/17/23 05:50 Albumin/Globulin Ratio 1.1 (0.9-2) 03/17/23 05:50 Urine Color Yellow 03/16/23 17:10 Urine Appearance Clear (Clear) 03/16/23 17:10 Urine pH 5.0 (4.5-7.5) 03/16/23 17:10 Ur Specific [place] 1.019 (1.000-1.030) 03/16/23 17:10 Urine Protein 1+ (Negative) H 03/16/23 17:10 Urine Glucose (UA) Negative (Negative) 03/16/23 17:10 Urine Ketones Negative (Negative) 03/16/23 17:10 Urine Blood Negative (Negative) 03/16/23 17:10 Urine Nitrite Negative (Negative) 03/16/23 17:10 Urine Bilirubin Negative (Negative) 03/16/23 17:10 Urine Urobilinogen Negative (Negative) 03/16/23 17:10 Ur Leukocyte Esterase Negative (Negative) 03/16/23 17:10 Urine WBC (Auto) 0 /hpf (0-5) 03/16/23 17:10 Urine RBC (Auto) 0-4 /hpf (0-4) 03/16/23 17:10 U Hyaline Cast (Auto) 0 /lpf (0-5) 03/16/23 17:10 U Epithel Cells (Auto) 0-5 /lpf (0-5) 03/16/23 17:10 Urine Bacteria (Auto) Negative (Negative) 03/16/23 17:10 SARS-CoV-2, RNA, NAAT NEGATIVE (NEGATIVE) 03/16/23 15:08 Impressions Liver Ultrasound 03/17/23 00:00 US liver CLINICAL HISTORY: elevated LFTs COMPARISON STUDY: CT of the abdomen and pelvis June 24, 2021. FINDINGS: Hepatic echogenicity is increased. No hepatic lesions are identified. There is no biliary ductal dilatation. Pancreatic body is normal. Head and tail are obscured by overlying bowel gas. No gallstones are noted. Gallbladder is contracted. This likely accounts for mild gallbladder wall thickening. No sonographic Pete sign was elicited. There is no right hydronephrosis. IMPRESSION: 1. No gallstones or biliary ductal dilatation. 2. Hepatic steatosis. 3. Partially obscured pancreas. ACT 112: Negative or not required by law. Electronically signed by: Quan Tripp M.D. 03/17/2023 7:08 AM
[2023-03-17] MEDS: MAGNESIUM SULFATE / D5W 1 GM/100 ML BAG IV SCH ×2 (12:55→12:57)
[2023-03-17 15:38] LABS: BUN Creatinine Ratio 22.1 (10-20); Calcium 9.3 mg/dl (8.6-10.3); Creatinine Clr Calc Pharmacy 61.2 ml/min; Est GFR (African American) 49.3 ml/min; Est GFR (Non-African American) 42.6 ml/min; Potassium 4.5 mmol/L (3.5-5.1)
--- NOTE | 2023-03-17 17:35 | Discharge Summary ---
Date of Service March 17, 2023 Admission HPI Per Admitting Provider 57 yo M presents today as a referral from his PCP, who noted his creatinine was 2.9, up from baseline 1.2. K was also 5.0, bicarb was 21, ca was 10.3, and he had a slight elevation of transaminases. He is on lisinopril and HCTZ for HTN and Dr. Dickens instructed him to stop both agents and come to the ER for treatment. He recently was hospitalized 03/06-03/09 and underwent a cardiac catheterization with no significant cardiac disease and no placement of stents. Smoking cessation was recommended at that time. He was started on coreg, baby aspirin and atorvastatin at discharge and has been tolerating these. He reports adequate hydration daily with 32-64oz of water and reports eating normally. He has been compliant with his lisinopril and HCTZ as prescribed. Admission Exam Per Admitting Provider CONSTITUTIONAL: WNWD, vitals as above, generally well-appearing, NAD EYES: normal conjunctivae, no scleral icterus ENT: external ear and nose normal, oropharynx clear, MMM NECK: trachea midline RESPIRATORY: clear to auscultation bilaterally, no crackles, rales or wheezes, normal respiratory effort CARDIOVASCULAR: regular rate and rhythm, S1 and 2 heard without murmurs, gallops or rubs, no JVD, no peripheral edema CHEST: inspection of chest was normal GASTROINTESTINAL: soft, nontender, ND no guarding MUSCULOSKELETAL: strength 5/5 throughout, head is normocephalic and atraumatic, neck supple, normal palpation of chest wall without tenderness SKIN: warm and dry, no rashes NEUROLOGIC: CN 2-12 grossly intact, no sensory deficit, normal cognition, normal speech, no tremor PSYCHIATRIC: alert cooperative and oriented to person, place and time. Euthymic mood, makes good eye contact, language grossly intact, recent and re mote memory grossly intact. Principal Diagnosis Acute kidney injury Discharge Exam CONSTITUTIONAL: WNWD, vitals as above, generally well-appearing, NADe RESPIRATORY: clear to auscultation bilaterally, no crackles, rales or wheezes, normal respiratory effort CARDIOVASCULAR: regular rate and rhythm, S1 and 2 heard without murmurs, gallops or rubs, no JVD, no peripheral edema CHEST: inspection of chest was normal GASTROINTESTINAL: soft, nontender, ND no guarding MUSCULOSKELETAL: strength 5/5 throughout, head is normocephalic and atraumatic, neck supple, normal palpation of chest wall without tenderness SKIN: warm and dry, no rashes NEUROLOGIC: CN 2-12 grossly intact, no sensory deficit, normal cognition, normal speech, no tremor PSYCHIATRIC: alert cooperative and oriented to person, place and time. Euthymic mood, makes good eye contact, language grossly intact, recent and remote memory grossly intact. Discharge Data Allergies Allergy/AdvReac Type Severity Reaction Status Date / Time No Known Allergies Allergy Verified 03/16/23 15:29 Consultations 03/16/23 15:15 ED Decision to Admit Stat Ordered Studies 03/17/23 00:00 US liver Routine Hospital Course (1) Acute renal failure: Multifactorial(prerenal, possible contrast-induced nephropathy, medications) Patient was sent over to the ED by his primary care doctor after he was found to have creatinine of 2.9, potassium of 5.0, bicarb of 21. Recently hospitalized earlier in February; underwent cardiac catheterization. Labs reviewed from today; creatinine down trended from 2.9 to 1.7 with IV hydration Potassium 4.5 today. Bicarb 24 and anion gap of 7. Hold lisinopril and hydrochlorothiazide. During the hospitalization, patient was treated with IV hydration with improvement in renal function. His creatinine down trended to 1.7. Patient was recommended to stop lisinopril and hydrochlorothiazide at discharge. He was recommended to follow-up with his primary care doctor and obtain BMP in 1 week to ensure his kidney function is back to baseline. (2) Hypertension: chronic, stable. Monitor off antihypertensives. Cont to hold lisinopril and HCTZ in setting of renal failure. Continue coreg for now Please note the above document was generated using voice recognition software. It may contain grammatical, syntax or spelling errors. Any formal questions or concerns about the content, text or information contained within the body of this dictation should be directly addressed to the provider for clarification Total Time Total Time Spent Total Time Spent (In Minutes): 45 Total Time Includes: Examination of the Patient, Discharge Planning, Medication Reconciliation, Communication With Other Providers and Other Discharge Plan Discharge Items Patient Disposition: Home - Self-Care Reason For Visit: ACUTE RENAL FAILURE Discharge Diagnosis: Acute kidney injury Activity: Resume your previous activity Non-emergency contact: Primary Care Provider Call non-emergency contact if: you have any medication questions and your symptoms worsen Follow-up/Referrals: Omer Wayne MD [Primary Care Provider] - Diet: Regular Addtl Attending Provider Instructions: You were admitted to the hospital due to acute kidney injury. You are treated with IV hydration. Your kidney function improved with hydration. Please follow the instruction below: 1) Stop taking lisinopril and hydrochlorothiazide for now. 2) Drink about 64 ounces of water every day to keep up hydration. Please follow-up with your primary care doctor next week and repeat the kidney function test. Please measure blood pressure daily in the morning with your both feet on the ground with your arm resting and keep a record of it. Please show the recordings to your doctor so that your doctor can adjust your medication. For high blood pressure, you are prescribed carvedilol (Coreg) 6.25 mg during your hospitalization last week. If you have not picked up the medication already, please milk pickup driver the medication. Continue other medication as prescribed before. Pending Studies at Discharge: No Stand-Alone Forms: My [facility], Smoking Cessation Medications and DC Order Prescriptions: Continued atorvastatin 80 mg tablet 80 mg PO QAM sildenafil (pulm.hypertension) [Revatio] 20 mg Tablet 20 - 100 mg PO DIRECTED PRN (Reason: Sexual Activity) Rx Instructions: TAKE 1 HOUR PRIOR TO SEXUAL INTERCOURSE. gabapentin 100 mg capsule 100 mg PO TID PRN (Reason: Pain) carvedilol 6.25 mg tablet 6.25 mg PO BID Anoro Ellipta 62.5-25 mcg/actuation Blister With Device 1 ea inhalation DAILY Qty: 60 0RF aspirin 81 mg Tablet,Delayed Release (Dr/Ec) 81 mg PO QAM Qty: 30 0RF albuterol sulfate 90 mcg/actuation HFA aerosol inhaler 2 puff inhalation Q4H PRN (Reason: Shortness Of Breath Or Wheezing) Qty: 8.5 0RF Discontinued lisinopril 10 mg tablet 10 mg PO QAM Rx Instructions: PER PT " TOLD ME NOT TO TAKE ANYMORE".03/16/23 hydrochlorothiazide 25 mg tablet 25 mg PO QAM Discharge Orders: Discharge Order (Routine); Ordered 03/17/23 Ordered By: Antelmo Toussaint Admission Data Admit Date/Time: 03/16/23 15:35 Attending Provider: Antelmo Toussaint Admernesto Provider: Rajwinder Mcclellan Primary Care Provider: Omer Wayne Other Providers: Rajwinder Mcclellan
== END 2023-03-17 18:30 | disposition home or self-care (01) ==
LOC: ED 14:21 → 2N 14:21 → SUATTDRO 15:35 → 2N 16:02

== ENCOUNTER 2023-11-29 09:23 | Inpatient (IN) ==
--- OUTSIDE RECORDS SUMMARY | 2023-11-29 09:28 | External Medical Summary | Summary of Care ---
Author Name Unknown Organization [facility] Address [address] [place] [address] Phone [phone] Care Team Providers Care Plating Tank Operator Name Role Phone Omer Wayne MD Primary Care Provider [phone] Reason for Visit * Reason Comments NEW PATIENT Encounter Details Date Type Department Care Team (Latest Contact Info) Description 11/23/2023 1:40 PM EST Office Visit Pulmonary Medicine, [facility] [address] [facility] [place] [address] Colton Montana, DO [address] [place] [address] COPD, group D, by GOLD 2017 classification ([facility])*; COPD exacerbation ([facility]); History of tobacco use; SAROJ (obstructive sleep apnea) Allergies Active Allergy Reactions Criticality Noted Date Comments Onel Inhibitors 10/22/2023 To be avoided due to bilateral renal artery stenosis and worsening kidney function when on previously Prednisone 04/07/2023 documented as of this encounter (statuses as of 11/23/2023) Medications Medication Sig Dispensed Refills Start Date End Date Status sildenafil (REVATIO) 20 MG TabletIndications :Erectile dysfunction, unspecified erectile dysfunction type Take 1-5 tablets by mouth 1 hour prior to intercourse. 30 Tab 3 9 Active EQ Aspirin Adult Low Dose 81 MG Oral Tablet Delayed ReleaseIndication s:Coronary artery disease involving twenty-nine palms coronary artery of twenty-nine palms heart without angina pectoris Take 1 Tablet by mouth daily. In the morning. 90 Tablet 3 3 Active Gabapentin 300 MG Oral Capsule (Neurontin)Indica tions:Chronic midline low back pain with left-sided sciatica Take 1 Capsule by mouth in the morning and 1 Capsule at noon and 1 Capsule before bedtime. 90 Capsule 11 3 Active Atorvastatin Calcium 80 MG Oral Tablet (Lipitor)Indicati ons:Coronary artery disease involving twenty-nine palms coronary artery of twenty-nine palms heart without angina pectoris Take 1 Tablet by mouth in the morning. 90 Tablet 3 3 Active Carvedilol 12.5 MG Oral Tablet (Coreg) Take 1 Tablet by mouth in the morning and 1 Tablet before bedtime. With food. 180 Tablet 3 3 Active Baclofen 10 MG Oral Tablet (Lioresal) Take 1 Tablet by mouth in the morning and 1 Tablet at noon and 1 Tablet before bedtime. 90 Tablet 1 3 Active Cyanocobalamin 1000 MCG Oral Capsule Take by mouth. 0 Active Thiamine HCl 100 MG Oral Tablet Take 1 Tablet by mouth in the morning. 0 Active Furosemide 20 MG Oral Tablet (Lasix) Take 1 Tablet by mouth in the morning. 90 Tablet 3 3 Active Potassium Chloride Alba ER 20 MEQ Oral Tablet Extended Release Take 1 Tablet by mouth in the morning. 90 Tablet 3 3 Active Ipratropium-Albut lashay 0.5-2.5 (3) MG/3ML Inhalation Solution (Duoneb) Inhale 3 mL via nebulizer every 6 hours as needed for Shortness of Breath. 180 mL 3 4 Active Additional Information Patient not taking.Reported on 10/21/2023 Umeclidinium Palatine 62.5 MCG/ACT Inhalation Aerosol Powder Breath Activated (INCRUSE ellipta) Inhale 1 Puff by mouth in the morning. 30 Each 11 4 Active Trelegy Ellipta 100-62.5-25 MCG/ACT Aerosol Powder Breath Activated (Fluticasone-Umec lidinium-Vilanter ol)Indications:CO PD exacerbation (HCC) Take 1 inhalation once per day 60 Blister Dosing Unit 5 4 11/23/19 24 Discontinued documented as of this encounter (statuses as of 11/23/2023) Active Problems Problem Noted Date Diagnosed Date Pulmonary emphysema 10/26/2023 Pulmonary emphysema 10/26/2023 Renal artery stenosis 10/22/2023 Hypertensive heart disease w ith chronic diastolic congestive heart failure 10/21/2023 Coronary artery disease invo lving twenty-nine palms heart without angina pectoris 06/08/2023 Hepatic steatosis 04/27/2023 Anemia 04/07/2023 Elevated transaminase level 04/07/2023 Osteoarthritis of hand, left 04/07/2023 Tobacco dependence 04/07/2023 Grade I diastolic dysfunction 04/07/2023 Hypertensive left ventricula r hypertrophy, without heart failure 04/07/2023 History of acute renal failure 04/07/2023 Lymphedema 04/07/2023 Chronic obstructive pulmonary disease 03/27/2023 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 Overview: Sebopsoriasis and scalp psoriasis too Essential hypertension with goal blood pressure less than 140/90 07/24/2011 Dyslipidemia, goal LDL below 70 documented as of this encounter (statuses as of 11/23/2023) Resolved Problems Problem Noted Date Diagnosed Date Resolved Date Acute renal failure 04/07/2023 10/22/19 24 ALESSANDRO (acute kidney injury) 04/07/2023 Elevated troponin 04/07/2023 10/22/2023 Hypercalcemia 04/07/2023 10/22/2023 Internal hemorrhoid, bleeding 04/07/2023 10/22/2023 Neurogenic claudication 03/15/201509/21 Neurogenic claudication 03/15/2015 0510/2017 Pain of left calf 03/01/2015 01/20/2018 Tobacco use disorder 02/26/2015 023 CHRONIC TOBACCO MUCOSITIS 05/27/2011 Dysfunction of eustachian tube 05/27/2011 10/20/2011 Otalgia 05/27/2011 10/20/2011 Cervicalgia 05/27/2011 02/26/2015 Spasm of muscle 05/27/2011 10/20/2011 Headache 05/27/2011 02/26/2015 Overview: ICD-10 update of inactive term Elevated blood pressure, situational 09/28/2009 10/20/2011 Esophageal reflux 09/28/2009 02/26/2015 Anxiety state 09/04/2008 02/26/2015 ACUTE STRESS 09/04/2008 10/20/2011 Diarrhea 09/04/2008 10/20/2011 VIRAL GASTROENTERITIS 09/04/20082011 Abdominal pain, generalized 09/04/2008 10/20/2011 Alcohol dependence 12/29/2000 5 Overview: ICD-10 update of inactive term Tobacco use disorder 015 Rhinitis, chronic 01/20/2018 documented as of this encounter (statuses as of 11/23/2023) Social History Tobacco Use Types Packs/Day Years Used Date Smoking Tobacco: Every Day Cigarettes 1.5 42 Smokeless Tobacco: Never Tobacco Cessation:Ready to Q uit: Yes Comments:began at age 15 Alcohol Use Standard Drinks/Week Comments Yes 0 (1 standard drink = 0.6 oz pur e alcohol) one day a week on weekends PHQ-2 Answer Date Recorded PHQ-2 Score 0 07/12/2019 Hunger Vital Sign Answer Date Recorded Worried About Running Out of Food in the Last Ye ar Never true 08/13/2020 Ran Out of Food in the Last Year Never true 08/13/2020 Sex and Gender Information Value Date Recorded Sex Assigned at Not on file Gender Identity Not on file Sexual Orientation Not on file Job Start Date Occupation Industry Not on file Not on file Not on file documented as of this encounter Last Filed Vital Signs Vital Sign Reading Time Taken Comments Blood Pressure 178/100 11/23/2023 1:34 PM EST Pulse 78 11/23/2023 1:34 PM EST Temperature 37.1 C (98.7 F) 11/23/2023 1:34 PM ES T Respiratory Rate - - Oxygen Saturation 98% 11/23/2023 1:34 PM EST Inhaled Oxygen Concentration - - Weight 113.9 kg (251 lb 0.6 oz) 11/23/2023 1:34 PM EST Height - - Body Mass Index 33.75 10/15/2023 10:20 AM EST documented in this encounter Progress Notes * Colton Montana DO - 11/23/2023 1:42 PM EST Images from the original note were not included. INITIAL PULMONARY CONSULTATION NOTE REFERRING PHYSICIAN: Omer Wayne MD REASON FOR REFERRAL: COPD HPI: Garret Jimenez is a 58 year old male presenting for evaluation of COPD. He notes he was 1stdiagnosed with COPD about a year ago. He gets short of breath walking at a faster pace or climbing stairs or hills. He does have coughing and wheezing most days. Minimal sputum production. He is currently using Anoro once daily plus fluticasone salmeterol 500/50 twice daily. He tried Trelegy recently but did not think this worked as well. He denies seasonal allergies but he does have chronic sinus disease. He has had 2 exacerbations in the past few months and is currently on systemic corticosteroids. He denies any childhood respiratory symptoms or asthma. He does have snoring and witnessed apneas and has a sleep evaluation scheduled next week. He is being worked up for low back pain and maybe undergoing a lumbar fusion surgery. 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 No pets No farming or outdoor animal exposures No mold or water problems in the house Past Medical History: Diagnosis Date Dyslipidemia, goal LDL below 100 HTN, goal below 140/90 Rhinitis, chronic Past Surgical History: Procedure Laterality Date EGD, FLEXIBLE, DIAGNOSTIC 07/03/2021 reflux / ESOPHAGOGASTRODUODENOSCOPY (EGD), FLEXIBLE, TRANSORAL, DIAGNOSTIC performed by Martha Patterson MD at ENDOSCOPY [facility] FOOT/TOE SURGERY NEC Left 09/21/1993 Foot/Toes Surgery Proc Unlisted INFORMATION 09/21/2001 [id number]- Dr Sagastume KNEE ARTHROSCOPY, DIAGNOSTIC Left 09/21/1988 Knee Scope,Diagnostic REPAIR INITIAL INGUINAL HERNIA REDUCIBLE AGE 5 OR MORE Right 03/12/2018 REPAIR INITIAL INGUINAL HERNIA REDUCIBLE AGE 5 OR MORE performed by Donovan Raza MD at OR [facility] Review of patient's allergies indicates: Allergen Reactions Onel Inhibitors To be avoided due to bilateral renal artery stenosis and worsening kidney function when on previously Prednisone Current Outpatient Medications Medication Sig Dispense Refill sildenafil (REVATIO) 20 MG Tablet Take 1-5 tablets by mouth 1 hour prior to intercourse. 30 Tab 3 EQ Aspirin Adult Low Dose 81 MG Oral Tablet Delayed Release Take 1 Tablet by mouth daily. In the morning. 90 Tablet 3 Gabapentin 300 MG Oral Capsule (Neurontin) Take 1 Capsule by mouth in the morning and 1 Capsule at noon and 1 Capsule before bedtime. 90 Capsule 11 Carvedilol 12.5 MG Oral Tablet (Coreg) Take 1 Tablet by mouth in the morning and 1 Tablet before bedtime. With food. 180 Tablet 3 Baclofen 10 MG Oral Tablet (Lioresal) Take 1 Tablet by mouth in the morning and 1 Tablet at noon and 1 Tablet before bedtime. 90 Tablet 1 Cyanocobalamin 1000 MCG Oral Capsule Take by mouth. Thiamine HCl 100 MG Oral Tablet Take 1 Tablet by mouth in the morning. Furosemide 20 MG Oral Tablet (Lasix) Take 1 Tablet by mouth in the morning. 90 Tablet 3 Potassium Chloride Alba ER 20 MEQ Oral Tablet Extended Release Take 1 Tablet by mouth in the morning. 90 Tablet 3 Trelegy Ellipta 100-62.5-25 MCG/ACT Aerosol Powder Breath Activated (Gwwyujpozeb-Agrvhgoogrpd-Taezfkpglx) Take 1 inhalation once per day 60 Blister Dosing Unit 5 Atorvastatin Calcium 80 MG Oral Tablet (Lipitor) Take 1 Tablet by mouth in the morning. 90 Tablet 3 Ipratropium-Albuterol 0.5-2.5 (3) MG/3ML Inhalation Solution (Duoneb) Inhale 3 mL via nebulizer every 6 hours as needed for Shortness of Breath. (Patient not taking: Reported on 10/21/2023) 180 mL 3 No current facility-administered medications for this visit. FAMILY HISTORY: Family History Problem Relation Age of Onset Cancer None Diabetes Father Heart Disorder Grandfather (Maternal) Hypertension None Mental Disorder None Stroke None PHYSICAL EXAM: BP 178/100 (BP Site: Left Arm, BP Position: Sitting, BP Cuff Size: Large) | Pulse 78 | Temp 37.1 C (98.7 F) (Tympanic) | Wt 113.9 kg (251 lb 0.6 oz) | SpO2 98% | BMI 33.75 kg/m | BSA 2.41 m Constitutional: no acute distress, able to converse without apparent dyspnea Eyes: anicteric, pupils equal ENT: external ears normal, no nasal discharge Neck: trachea midline, JVP normal CV: normal rate and rhythm, no murmurs Chest: normal respiratory effort, clear to auscultation, no wheezing or crackles Abdomen: obese, normal bowel sounds Extremities: no clubbing, no cyanosis Neuro: alert, oriented Psych: normal mood and affect Pulmonary Function Test Results: 05/05/2023 personally visualized: Mild obstruction Chest X-ray: 09/27/2023: "" Echocardiogram: 03/06/2023: Assessment: J44.9 COPD, group D, by GOLD 2017 classification ([facility]) (primary encounter diagnosis) J44.1 COPD exacerbation ([facility]) Z87.891 History of tobacco use G47.33 SAROJ (obstructive sleep apnea) Recommendations and Plans: Change to Incruse once daily (this replaces Anoro) Continue fluticasone salmeterol 500/50 twice daily Continue albuterol as needed Continue complete smoking cessation Sleep medicine evaluation for suspected obstructive sleep apnea PFTs (silvia pre/post, lung volumes, diffusion capacity) at follow-up Will discuss low-dose CT chest for lung cancer screening at follow-up Follow up in 3 months with PFTs same day Colton Montana DO Associate - Pulmonary and Critical Care Medicine [facility] [address] [facility] [address] [id number] documented in this encounter Nursing Notes * Raquel Glynn, [facility] - 11/23/2023 1:36 PM EST Patient is new today. Had PFT done a couple months ago. Currently is on prednisone for COPD flare. Stopped smoking on 11/18/2023. Some cough, states that he has phlegm in throat, SOB at all times, wheezing, heartburn, Was to ED at [facility] for flare up. documented in this encounter Plan of Treatment Upcoming Encounters Date Type Department Care Team (Late st Contact Info) Description 11/30/2023 2:20 PM EDT Office Visit [facility] [address] [place] [phone] Omer Wayne MD [address] [place] [address] 12/01/2023 11:00 AM EDT Office Visit Sleep Disorders [facility] [place] [address] [place] [phone] Jeanette Michael CRNP [address] [place] [address] Health Maintenance Due Date Last Done Comments DISCUSS TOBACCO CESSATION (REFER TO SMARTSET #[id number]) 1963 Pneumococcal Vaccine: Pediatrics (0 to 5 Years) and At-Risk Patients (6 to 64 Years) (1 of 2 - PCV) 1969 HIV Screening 1978 Alpha-1 Antitrypsin 1981 Hepatitis C Screening 1981 Cologuard 2008 Colonoscopy 2008 Colorectal Cancer Screening 2008 Fecal Occult Blood Test 2008 Sigmoidoscopy 2008 Zoster Vaccines (1 of 2) 2013 Depression Screening 07/12/2020 07/12/2019 COVID-19 Vaccine ( season) 2023 Influenza Vaccine (FLU shot) (#1) 2023 GFR 10/01/2024 10/01/2023, 03/2024, 09/09/2023, Additional history exists O2 ASSESSMENT COMPLETED IN PAST YEAR FOR COPD 11/22/2024 11/23/2023 Diabetes Screening 10/01/2026 10/01/2023, 0 09/27/2023, 06/19/2023, Additional history exists Albumin/Creatinine Ratio 10/28/2026 10/28/2023, 02/20 DTaP,Tdap,and Td Vaccines (2 - Td or Tdap) 01/21/2028 01/20/2018 (Declined) LUNG CANCER SCREENING - USE SMARTSET [id number] Completed 02/15/2019 GARDASIL-HPV IMMUNIZATION SERIES Aged Out No longer eligible based on patient's age to complete this topic Hepatitis B Aged Out No longer eligi ble based on patient's age to complete this topic MENINGOCOCCAL (MENACTRA/MENVEO) Aged Out No longer eligible based on patient's age to complete this topic documented as of this encounter Medical Devices Implanted Type Area Hospital Administrator Device Identifier Shelf Expiration Date Model / Serial / Lot Mesh Plug Prefix [id number] - [id number] Implanted:Qty: 1 on 03/12/2018 by Donovan Raza MD at OR [facility] Right: Toniain CR BARD : DAVOL 10/21/2018 [id number] / / [id number] documented as of this encounter Visit Diagnoses Diagnosis COPD, group D, by GOLD 2017 classification (HCC)- Primary COPD exacerbation (HCC) Obstructive chronic bronchitis with exacerbation History of tobacco use Personal history of tobacco use, presenting hazards to health SAROJ (obstructive sleep apnea) Obstructive sleep apnea (adult) (pediatric) documented in this encounter Care Teams Plating Tank Operator Relationship Specialty Start Date End Date Omer Wayne MD [address] [place] [address] PCP - General 02/19/05 documented as of this encounter
--- OUTSIDE RECORDS SUMMARY | 2023-11-29 09:28 | External Medical Summary | Summary of Care ---
Author Name Unknown Organization [facility] Address [address] [place] [address] Phone [phone] Care Team Providers Care Brick Layer Name Role Phone Omer Wayne MD Primary Care Provider +1- [phone] Encounter Details Date Type Department Care Team (Late st Contact Info) Description 11/19/2023 Orders Only [facility] [address] [place] [address] Omer Wayne MD [address] [place] [address] Allergies Active Allergy Reactions Criticality Noted Date Comments Onel Inhibitors 10/22/2023 To be avoided due to bilateral renal artery stenosis and worsening kidney function when on previously Prednisone 04/07/2023 documented as of this encounter (statuses as of 11/23/2023) Medications Medication Sig Dispensed Refills Start Date End Date Status sildenafil (REVATIO) 20 MG TabletIndications:E rectile dysfunction, unspecified erectile dysfunction type Take 1-5 tablets by mouth 1 hour prior to intercourse. 30 Tab 3 05/10/2019 Active EQ Aspirin Adult Low Dose 81 MG Oral Tablet Delayed ReleaseIndications: Coronary artery disease involving standing rock coronary artery of standing rock heart without angina pectoris Take 1 Tablet by mouth daily. In the morning. 90 Tablet 3 03/11/2023 Active Gabapentin 300 MG Oral Capsule (Neurontin)Indicati ons:Chronic midline low back pain with left-sided sciatica Take 1 Capsule by mouth in the morning and 1 Capsule at noon and 1 Capsule before bedtime. 90 Capsule 11 03/27/2023 Active Atorvastatin Calcium 80 MG Oral Tablet (Lipitor)Indication s:Coronary artery disease involving standing rock coronary artery of standing rock heart without angina pectoris Take 1 Tablet by mouth in the morning. 90 Tablet 3 04/07/2023 Active Carvedilol 12.5 MG Oral Tablet (Coreg) Take 1 Tablet by mouth in the morning and 1 Tablet before bedtime. With food. 180 Tablet 3 06/08/2023 Active Baclofen 10 MG Oral Tablet (Lioresal) Take 1 Tablet by mouth in the morning and 1 Tablet at noon and 1 Tablet before bedtime. 90 Tablet 1 06/08/2023 Active Cyanocobalamin 1000 MCG Oral Capsule Take by mouth. 0 Acti ve Thiamine HCl 100 MG Oral Tablet Take 1 Tablet by mouth in the morning. 0 Active Furosemide 20 MG Oral Tablet (Lasix) Take 1 Tablet by mouth in the morning. 90 Tablet 3 07/02/2023 Active Potassium Chloride Alba ER 20 MEQ Oral Tablet Extended Release Take 1 Tablet by mouth in the morning. 90 Tablet 3 07/02/2023 Active Ipratropium-Albuter ol 0.5-2.5 (3) MG/3ML Inhalation Solution (Duoneb) Inhale 3 mL via nebulizer every 6 hours as needed for Shortness of Breath. 180 mL 3 10/09/2023 Active Additional Information Patient not taking.Reported on 10/21/2023 documented as of this encounter (statuses as of 11/23/2023) Active Problems Problem Noted Date Diagnosed Date Pulmonary emphysema 10/26/2023 Pulmonary emphysema 10/26/2023 Renal artery stenosis 10/22/2023 Hypertensive heart disease w ith chronic diastolic congestive heart failure 10/21/2023 Coronary artery disease invo lving standing rock heart without angina pectoris 06/08/2023 Hepatic steatosis [...] 04/07/2023 10/22/2023 Neurogenic claudication 03/15/201509/21 Neurogenic claudication 03/15/201510/2017 Pain of left calf 03/01/2015 01/20/2018 Tobacco [...] Day Cigarettes 1.5 42 Smokeless Tobacco: Never Comments:began at age 15 Alcohol Use Standard [...] on file documented as of this encounter Plan of Treatment Upcoming Encounters Date Type Department Care Team (Late st Contact Info) Description 11/30/2023 2:20 PM EDT Office Visit [facility] [address] [place] [phone] Omer Wayne MD [address] [place] [address] 12/01/2023 11:00 AM EDT Office Visit [facility] Disorders [facility]tr [facility] [address] [place] [phone] Jeanette Michael CRNP [address] [place] [address] Health Maintenance Due Date Last Done Comments DISCUSS TOBACCO CESSATION (REFER TO SMARTSET #3791) 1965 Pneumococcal Vaccine: Pediatrics (0 to 5 Years) and At-Risk Patients (6 to 64 Years) (1 of 2 - PCV) 1969 HIV Screening 1978 Alpha-1 Antitrypsin 1981 Hepatitis C Screening 1981 Cologuard 2008 Colonoscopy 2008 Colorectal Cancer Screening 2008 Fecal Occult Blood Test 2008 Sigmoidoscopy 2008 Zoster Vaccines (1 of 2) 2013 Depression Screening 07/12/2020 07/12/2019 COVID-19 Vaccine ( - season) 2023 Influenza Vaccine (FLU shot) (#1) 2023 GFR 10/01/2024 10/01/2023, 03/2024, 09/09/2023, Additional history exists O2 ASSESSMENT COMPLETED IN PAST YEAR FOR COPD 11/22/2024 11/23/2023 Diabetes Screening 10/01/2026 10/01/2023, 0 09/27/2023, 06/19/2023, Additional history exists Albumin/Creatinine Ratio 10/28/2026 10/28/2023, 02/20 DTaP,Tdap,and Td Vaccines (2 - Td or Tdap) 01/21/2028 01/20/2018 (Declined) LUNG CANCER SCREENING - USE SMARTSET 25376 Completed 02/15/2019 GARDASIL-HPV IMMUNIZATION SERIES Aged Out No longer eligible based on patient's age to complete this topic Hepatitis B Aged Out No longer eligi ble based on patient's age to complete this topic MENINGOCOCCAL (MENACTRA/MENVEO) Aged Out No longer eligible based on patient's age to complete this topic documented as of this encounter Medical Devices Implanted Type Area Conveyor Man Device Identifier Shelf Expiration Date Model / Serial / Lot Mesh Plug Prefix [id number] [id number] - [id number] Implanted:Qty: 1 on 03/12/2018 by Donovan Raza MD at OR [facility] Right: Groin CR BARD : DAVOL 10/21/2018 [id number] / / [id number] documented as of this encounter Procedures Procedure Name Priority Date/Time Associated Diagnosis Comments RADIOLOGY EXAM - GENERAL RAD (IMAGES ONLY,NO REPORT) Routine 11/19/2023 8:45 AM EST documented in this encounter Results * RADIOLOGY EXAM - GENERAL RAD (IMAGES ONLY,NO REPORT) (11/19/2023 8:45 AM EST) 11/19/2023 8:45 AM EST Narrative Scheduling, Silent - 11/23/2023 7:06 PM EST This is an imaging study not interpreted or resulted by a [facility] or [facility] contracted radiologist. Omer Wayne MD RADIOLOGY (RAD GEN ERAL) documented in this encounter Care Teams Brick Layer Relationship Specialty Start Date End Date Omer Wayne MD [address] [place] [address] PCP - General 02/19/05 documented as of this encounter
--- OUTSIDE RECORDS SUMMARY | 2023-11-29 09:28 | External Medical Summary | Summary of Care ---
Author Name Unknown Organization [facility] Address [address] [facility] [place] [address] Phone [phone] Care Team Providers Care Bottom Stop Attacher Name Role Phone Omer Wayne MD Primary Care Provider +1- [phone] Encounter Details Date Type Department Care Team (Latest Contact Info) Description 11/19/2023 8:45 AM EST - 11/19/2023 11:59 PM EST Hospital Encounter Radiology Film File [address] [facility] [place] [address] Discharge Disposition: Home - Self Care Allergies Active Allergy Reactions Criticality Noted Date Comments Onel Inhibitors 10/22/2023 To be avoided due to bilateral renal artery stenosis and worsening kidney function when on previously Prednisone 04/07/2023 documented as of this encounter (statuses as of 11/24/2023) Medications Medication Sig Dispensed Refills Start Date End Date Status sildenafil (REVATIO) 20 MG TabletIndications:E rectile dysfunction, unspecified erectile dysfunction type Take 1-5 tablets by mouth 1 hour prior to intercourse. 30 Tab 3 05/10/2019 Active EQ Aspirin Adult Low Dose 81 MG Oral Tablet Delayed ReleaseIndications: Coronary artery disease involving asa'carsarmiut coronary artery of asa'carsarmiut heart without angina pectoris Take 1 Tablet [...] Oral Tablet (Lipitor)Indication s:Coronary artery disease involving asa'carsarmiut coronary artery of asa'carsarmiut heart without angina pectoris Take 1 Tablet [...] as of this encounter (statuses as of 11/24/2023) Active Problems Problem Noted Date Diagnosed Date Pulmonary emphysema 10/26/2023 Pulmonary emphysema 10/26/2023 Renal artery stenosis 10/22/2023 Hypertensive heart disease w ith chronic diastolic congestive heart failure 10/21/2023 Coronary artery disease invo lving asa'carsarmiut heart without angina pectoris 06/08/2023 Hepatic steatosis [...] as of this encounter (statuses as of 11/24/2023) Resolved Problems Problem Noted Date Diagnosed Date Resolved Date Acute renal failure 04/07/2023 10/22/19 24 ALESSANDRO (acute kidney injury) 04/07/2023 Elevated troponin 04/07/2023 10/22/2023 Hypercalcemia 04/07/2023 10/22/2023 Internal hemorrhoid, bleeding 04/07/2023 10/22/2023 Neurogenic claudication 03/15/201509/21 Neurogenic claudication 03/15/2015 05/0 10/2017 Pain of left calf 03/01/2015 01/20/2018 Tobacco [...] as of this encounter (statuses as of 11/24/2023) Social History Tobacco Use Types Packs/Day Years [...] Description 11/30/2023 2:20 PM EDT Office Visit [facility] [address] [place] [facility] [place] [phone] Omer Wayne MD [address] [place] [address] 12/01/2023 11:00 AM EDT Office Visit [facility] Disorders Ctr [facility] [address] [place] [phone] Jeanette Michael CRNP [address] [place] [address] Health Maintenance Due Date Last Done Comments DISCUSS TOBACCO CESSATION (REFER TO SMARTSET #2507) 1965 Pneumococcal Vaccine: Pediatrics (0 to 5 Years) and At-Risk Patients (6 to 64 Years) (1 of 2 - PCV) 1969 HIV Screening 1978 Alpha-1 Antitrypsin 1981 Hepatitis C Screening 1981 Cologuard 2008 Colonoscopy 2008 Colorectal Cancer Screening 2008 Fecal Occult Blood Test 2008 Sigmoidoscopy 2008 Zoster Vaccines (1 of 2) 2013 Depression Screening 07/12/2020 07/12/2019 COVID-19 Vaccine (1 - 2022- season) 2023 Influenza Vaccine (FLU shot) (#1) 2023 GFR 10/01/2024 10/01/2023, 03/2024, 09/09/2023, Additional history exists O2 ASSESSMENT COMPLETED IN PAST YEAR FOR COPD 11/22/2024 11/23/2023 Diabetes Screening 10/01/2026 10/01/2023, 0 09/27/2023, 06/19/2023, Additional history exists Albumin/Creatinine Ratio 10/28/2026 10/28/2023, 02/20 DTaP,Tdap,and Td Vaccines (2 - Td or Tdap) 01/21/2028 01/20/2018 (Declined) LUNG CANCER SCREENING - USE SMARTSET 77864 Completed 02/15/2019 GARDASIL-HPV IMMUNIZATION SERIES Aged Out No longer eligible based on patient's age to complete this topic Hepatitis B Aged Out No longer eligi ble based on patient's age to complete this topic MENINGOCOCCAL (MENACTRA/MENVEO) Aged Out No longer eligible based on patient's age to complete this topic documented as of this encounter Medical Devices Implanted Type Area Performance Improvement Analyst Device Identifier Shelf Expiration Date Model / Serial / Lot Mesh Plug Prefix [id number] [id number] - [id number] Implanted:Qty: 1 on 03/12/2018 by Donovan Raza MD at OR [facility] Right: Groin CR BARD : DAVOL 10/21/2018 [id number] / / [id number] documented as of this encounter Procedures Procedure [...] interpreted or resulted by a [facility] or [facility] contracted radiologist. Omer Wayne MD RADIOLOGY (RAD GEN ERAL) documented in this encounter Care Teams Bottom Stop Attacher Relationship Specialty Start Date End Date Omer Wayne MD [address] [place], [place] [phone] PCP - General 02/19/05 documented as of this encounter
--- OUTSIDE RECORDS SUMMARY | 2023-11-29 09:29 | External Medical Summary | Summary of Care ---
Author Name Unknown Organization [facility] Address [address] [place] [address] Phone [phone] Care Team Providers Care Basketball Assembler Name Role Phone Omre Wayne MD Primary Care Provider +1- [phone] Reason for Referral * Evaluate & Treat - Unlimited Visits (Within 10 days (routine)) - Pending Review Specialty Diagnoses / Procedures Referred By Contac t Referred To Contact Sleep Medicine / Sleep Disorders Diagnoses Morbid obesity (HCC) HTN, goal below 140/90 Snoring Paroxysmal nocturnal dyspnea Omer Wayne MD [address] [place] [address] Referral ID Status Reason Start Date Expiration Date Visits Requested Visits Authorized [id number] Pending Review Specialty Services Required 11/20/2023 2 2 Question Answer Referral Priority Within 10 days (routine) Where should this appointment be scheduled? [facility] CAD SLEEP MED ADULT REFERRAL Sleep Apnea Testing and Management Does the patient snore and/or gasp at night or has been told they stop breathing at night? Yes Reason for Visit * Reason Onset Date Comments Advice 11/20/2023 Referral 11/20/2023 Encounter Details Date Type Department Care Team (Late st Contact Info) Description 11/20/[address] [facility] [address] [facility] [place] [address] Omer Wayne MD [address] [place] [address] Advice; Referral Allergies Active Allergy Reactions Criticality Noted Date Comments Onel Inhibitors 10/22/2023 To be avoided due to bilateral renal artery stenosis and worsening kidney function when on previously Prednisone 04/07/2023 documented as of this encounter (statuses as of 11/23/2023) Medications Medication Sig Dispensed Refills Start Date End Date Status sildenafil (REVATIO) 20 MG TabletIndications: Erectile dysfunction, unspecified erectile dysfunction type Take 1-5 tablets by mouth 1 hour prior to intercourse. 30 Tab 3 05/10/2019 Active EQ Aspirin Adult Low Dose 81 MG Oral Tablet Delayed ReleaseIndications :Coronary artery disease involving atka coronary artery of atka heart without angina pectoris Take 1 Tablet by mouth daily. In the morning. 90 Tablet 3 03/11/2023 Active Gabapentin 300 MG Oral Capsule (Neurontin)Indicat ions:Chronic midline low back pain with left-sided sciatica Take 1 Capsule by mouth in the morning and 1 Capsule at noon and 1 Capsule before bedtime. 90 Capsule 11 03/27/2023 Active Atorvastatin Calcium 80 MG Oral Tablet (Lipitor)Indicatio ns:Coronary artery disease involving atka coronary artery of atka heart without angina pectoris Take 1 Tablet [...] the morning. 90 Tablet 3 07/02/2023 Active Trelegy Ellipta 100-62.5-25 MCG/ACT Aerosol Powder Breath Activated (Fluticasone-Umecl idinium-Vilanterol )Indications:COPD exacerbation (HCC) Take 1 inhalation once per day 60 Blister Dosing Unit 5 10/01/2023 Active Ipratropium-Albute rol 0.5-2.5 (3) MG/3ML Inhalation Solution (Duoneb) Inhale [...] failure 10/21/2023 Coronary artery disease invo lving atka heart without angina pectoris 06/08/2023 Hepatic steatosis [...] on file documented as of this encounter Miscellaneous Notes * Telephone Encounter - Judy Aguilera OSA - 11/23/2023 8:59 AM EST Scheduled. 11/23/2023 * Telephone Encounter - Omer Wayne MD - 11/20/2023 4:45 PM EST Please assist with sleep med * Telephone Encounter - Omer Wayne MD - 11/20/2023 4:45 PM EST This patient is suspected to have obstructive sleep apnea given snoring, witnessed apneas and significant daytime sleepiness. A sleep study was therefore ordered. We discussed treatment modalities for SAROJ including PAP. * Telephone Encounter - Konstantin Molina OSA - 11/20/2023 4:00 PM EST Pt is scheduled for November 22 at 1:[address] Montana * Telephone Encounter - Enedina Chan LPN - 11/20/2023 2:27 PM EST Sleep med referral pended. Please reschedule pulmonary appt. * Telephone Encounter - Enedina Chan LPN - 11/20/2023 2:05 PM EST Called patient, he was in [facility] yesterday. ED Follow Up [facility] Documentation Did patient call the office before going to ER: No When was patient seen: Which ED: [facility] What were they seen for: SOB What testing did they have done: cxr, ekg, lab work, and respiratory panel swab What was the diagnosis(s) at discharge? COPD Exacerbation Any new medications prescribed: Yes, New medications: Medrol dose pack How is patient feeling today: "I feel good during the day, I seem to be relatively fine" Does patient have concerns today: Yes, Waking thru the night gasping for breath, wheezing at night Requesting a sleep med referral. Dr. Graham placed a referral 04/22/23, but the patient didn't think he needed to see sleep med then, he had a lot going on. Pended new referral Patient had a PFT done on 05/05/23. Confirmed mild COPD. He's been in the ER twice for it he reports. Pulmonary appt 01/2024 appt was cancelled (coverage) Was patient scheduled for a follow up appointment: Yes, date 11/30/23. Soonest appt with PCP * Telephone Encounter - Chetan Choudhury OSA - 11/20/2023 1:52 PM EST Pt called to inform Dr. Wayne that he needs a referral for sleep study. documented in this encounter Plan of Treatment Upcoming Encounters Date Type Department Care Team (Late st Contact Info) Description 11/23/2023 1:40 PM EST Office Visit Pulmonary Medicine, [facility] [address] [place] [address] Colton Montana, DO [address] [place] [address] 11/30/2023 2:20 PM EDT Office Visit [facility] [address] [place] [address] Omer Wayne MD [address] [place] [address] 12/01/2023 11:00 AM EDT Office Visit [facility] Disorders Ctr [facility] [address] [place] [phone] Jeanette Michael CRNP [address] [place] [address] Scheduled Referrals Name Type Priority Associated Diagnoses Orde r Schedule SLEEP MEDICINE REFERRAL OP Referral Within 10 days (routine) Morbid obesity (HCC) HTN, goal below 140/90 Snoring Paroxysmal nocturnal dyspnea Ordered: 11/20/2023 Health Maintenance Due Date Last Done Comments DISCUSS TOBACCO CESSATION (REFER TO SMARTSET #4259) 1965 Pneumococcal Vaccine: Pediatrics (0 to 5 [...] ASSESSMENT COMPLETED IN PAST YEAR FOR COPD 10/28/2024 10/28/2023 Diabetes Screening 10/01/2026 10/01/2023, 0 09/27/2023, 06/19/2023, Additional history exists Albumin/Creatinine Ratio 10/28/2026 10/28/2023, 02/20 DTaP,Tdap,and Td Vaccines (2 - Td or Tdap) 01/21/2028 01/20/2018 (Declined) LUNG CANCER SCREENING - USE SMARTSET 13818 Completed 02/15/2019 GARDASIL-HPV IMMUNIZATION SERIES Aged Out No longer eligible based on patient's age to complete this topic Hepatitis B Aged Out No longer eligi ble based on patient's age to complete this topic MENINGOCOCCAL (MENACTRA/MENVEO) Aged Out No longer eligible based on patient's age to complete this topic documented as of this encounter Medical Devices Implanted Type Area Relations Specialist Device Identifier Shelf Expiration Date Model / Serial / Lot Mesh Plug Prefix [id number] [id number] - [id number] Implanted:Qty: 1 on 03/12/2018 by Donovan Raza MD at OR [facility] Right: Groin CR BARD : DAVOL 10/21/2018 [id number] / / [id number] documented as of this encounter Visit Diagnoses Diagnosis Snoring- Primary Other dyspnea and respiratory abnormality Morbid obesity (HCC) Morbid obesity HTN, goal below 140/90 Unspecified essential hypertension Paroxysmal nocturnal dyspnea Other dyspnea and respiratory abnormality documented in this encounter Care Teams Basketball Assembler Relationship Specialty Start Date End Date Omer Wayne MD [address] [place] [address] PCP - General 02/19/05 documented as of this encounter
--- NOTE | 2023-11-29 09:54 | Emergency Department Note ---
Impression & Plan Acute respiratory failure with hypoxia, RSV (respiratory syncytial virus infection) ED Provider Note Name: PAVITHRA CHENG Age: 58 Sex: Male Arrives Via: Walk-In Informant: Patient, sister ED Provider: José Chavez MD Chief Complaint: Shortness of breath Impression: As per impressions above Medical Decision Makin-year-old male with a history of COPD, hypertension, alcohol use, dyslipidemia and previous fluid overload issues arrives for evaluation acute shortness of breath over the last 12 to 24 hours. Patient is severely dyspneic on arrival with very tight lung sounds and hypoxia into the 80s. Ordered DuoNeb, mag, Decadron and vastly improved however still has pretty tight lung sounds and is somewhat dyspneic. Still requiring some nasal cannula O2 to keep O2 sats up. Chest x-ray without evidence of infiltrate. Labs are reassuring. There is no evidence of sepsis and I do not think this is a bacterial severe sepsis. His RSV is positive consistent with viral acute respiratory failure. Patient is not overly happy about staying but understands that in the setting of hypoxia will need hospitalization. Given his history I do not feel that this is consistent with PE or dissection. Hospitalist then to see further. Triage/Nursing Notes reviewed by Me Differential:Reactive airway disease, pneumonia, pneumothorax, COPD, CHF, infections, cardiac ischemia, pulmonary embolism, musculoskeletal, gastrointestinal, as well as other pathologies. Vital Signs: reviewed and remarkable for tachy, hypoxia Interventions: Decadron IV, DuoNeb, magnesium IV, normal saline bolus IV Labs:ED labs Reviewed by me and remarkable for RSV positive Imagin view chest x-ray no evidence of fluid overload or pneumothorax or lobar infiltrate EKG:As per my interpretation. Indication shortness of breath. Sinus tachycardia 113 bpm QTc of 477. No ectopy no ischemia. Bifascicular block noted. Comparing to EKG of 12/18/2023 heart rate has increased. Cardiac/Tele Monitoring: Cardiac Monitoring: An Order was placed for continuous cardiac monitoring. The monitor shows a rate of 100 with a normal sinus rhythm. Consults:Melo Hospitalist Plan: Disposition:Hospitalization. Condition: Good History of Present Illness: 58-year-old male arrives for evaluation of shortness of breath. Patient notes he awoke feeling significantly short of breath this morning. Unable to catch his breath. Took his nebulizer treatment at home without any improvement. His sister brought him in for further evaluation. Patient notes he was having pretty significant chills earlier this morning. He has a hacking cough but has not been productive. Notes he has been wheezing significantly at home. Patient denies any chest pain, palpitation, syncope, abdominal pain, measured fevers, vomiting, leg swelling, calf pain or other concerning signs or symptoms. This is similar to COPD exacerbation patient had over the summer. Patient to be dealing with back issues which have needed surgery however it keeps getting delayed due to insurance issues, recurrent COPD exacerbations as well as his difficulty with quitting smoking. Past Medical History:COPD, hypertension, tobacco use, alcohol use, dyslipidemia, fluid overload Home Medications:See Below Allergies:TONIA, ARB, prednisone Vitals:Blood Pressure: 156/94, Pulse 109, RR 24, T 36.5C, O2 86% on 3L NC Physical Exam: GENERAL: Patient is unwell appearing and in moderate distress. RESPIRATORY: Diffusely tight lung sounds expiratory wheezing. Decreased breath sounds in the left lower lung CARDIOVASCULAR: Tachycardia.No murmur appreciated. GASTROINTESTINAL: Abdomen soft, non-tender, no peritonitis. EXTREMITIES: Normal motion all extremities, no cyanosis, no edema. NEUROLOGIC: Alert and oriented. No focal neurologic deficits appreciated SKIN: No rash, no jaundice, no diaphoresis. PSYCH: Appropriate GCS: 15 ED Course: Times/Reassessments: Breathing is improved however still too dyspneic to discharge and requiring nasal cannula O2 José Chavez MD Past Med/Surg History Medical History (Updated 11/29/23 @ 14:53 by José Chavez MD) Hepatic steatosis CAD (coronary artery disease) GERD (gastroesophageal reflux disease) controlled, stable per pt Kidney disease following with [facility] Nephrology. Sleep apnea no device Anemia Tobacco use disorder Plaque psoriasis Hx of seasonal allergies Spinal stenosis Chronic obstructive pulmonary disease controlled, stable per pt; last rescue inhaler use several days ago-average use 2x weekly History of shingles 05/2022, PRN gabapentin for chronic right eye irritation/pain from shingles Hypertension controlled, stable per pt Surgical History History of cardiac catheterization 02/2023 [facility]. no stents. 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 Beliefs That Will Affect Care: None Current Living Situation: Family Current Living Situation Comment: lives with aunt Feels Safe at Home: Yes Assistive Devices: Cane and Walker Allergies Allergies Allergy/AdvReac Type Severity Reaction Status Date / Time TONIA Inhibitors AdvReac Severe ALESSANDRO Verified 11/02/23 09:36 ARB-Angiotensin Receptor AdvReac Severe ALESSANDRO Verified 11/02/23 09:36 Antagonist prednisone AdvReac Mild "jitterines Unverified 10/19/23 10:39 s" Home Meds Home Medications Medication Instructions Recorded Confirmed atorvastatin 80 mg tablet 80 mg PO QAM 03/16/23 11/29/23 baclofen 10 mg tablet 10 mg PO TID PRN Muscle Spasm 06/09/23 11/29/23 fluticasone 500 mcg-salmeterol 50 2 inh inhalation BID 06/09/23 11/29/23 mcg/dose blistr powdr for inhalation (Advair Diskus) gabapentin 300 mg capsule 300 mg PO TID PRN Pain 06/09/23 11/29/23 furosemide 20 mg tablet 20 mg PO QAM 10/14/23 11/29/23 potassium chloride 20 mEq 20 meq PO QAM 10/14/23 11/29/23 tablet,extended release carvedilol 12.5 mg tablet 12.5 mg PO BID 11/29/23 11/29/23 umeclidinium 62.5 mcg/actuation 1 inh inhalation DAILY 11/29/23 11/29/23 blister powder for inhalation Previous Rx's Medication Instructions Recorded albuterol sulfate 90 mcg/actuation 2 puff inhalation Q4H PRN 03/09/23 aerosol inhaler Shortness Of Breath Or Wheezing #8.5 grams aspirin 81 mg tablet,delayed 81 mg PO QAM #30 tabs 03/09/23 release ipratropium 0.5 mg-albuterol 3 mg 3 ml inhalation Q6H PRN 06/11/23 (2.5 mg base)/3 mL nebulization wheezing/severe shortness of soln breath #90 mL Results & Data (ED) Vital Signs Vital Signs - 24 hr 11/29/23 09:23 11/29/23 09:28 11/29/23 09:39 Temperature 36.5 C Temperature Source Oral Pulse Rate 122 H 111 H Pulse Rate [Left Finger] 108 H Respiratory Rate 25 H 24 20 Respiratory Effort / Characteristics Accessory Muscle Use Labored Short of Breath SOB on Exertion Non-Labored Respiratory Depth Shallow Respiratory Pattern Irregular Blood Pressure 156/94 H 161/98 H Blood Pressure [Right Arm] 161/98 H Blood Pressure Mean 114 119 Blood Pressure Mean [Right Arm] 119 Blood Pressure Position [Right Arm] Semi-fowlers Pulse Oximetry 91 86 L 90 Oxygen Delivery Method Nasal Cannula Room Air Nasal Cannula Oxygen Flow Rate 3 3 Sepsis Recent Fever Within 48 Hours No Sepsis New/Unexplained Change in Mental Status N/A Sepsis Action Taken by Nursing No Action Required 11/29/23 09:42 11/29/23 09:42 11/29/23 09:49 Temperature Temperature Source Pulse Rate 109 H Pulse Rate [Left Finger] Respiratory Rate Respiratory Effort / Characteristics Labored Nasal Flaring Short of Breath SOB on Exertion Respiratory Depth Deep Respiratory Pattern Irregular Blood Pressure Blood Pressure [Right Arm] Blood Pressure Mean Blood Pressure Mean [Right Arm] Blood Pressure Position [Right Arm] Pulse Oximetry Oxygen Delivery Method Nasal Cannula Nasal Cannula Oxygen Flow Rate 3 3 Sepsis Recent Fever Within 48 Hours Sepsis New/Unexplained Change in Mental Status Sepsis Action Taken by Nursing 11/29/23 10:00 11/29/23 10:30 11/29/23 11:00 Temperature Temperature Source Pulse Rate 101 H 87 82 Pulse Rate [Left Finger] Respiratory Rate 21 23 17 Respiratory Effort / Characteristics Respiratory Depth Respiratory Pattern Blood Pressure 113/79 96/53 L 129/76 Blood Pressure [Right Arm] Blood Pressure Mean 90 67 93 Blood Pressure Mean [Right Arm] Blood Pressure Position [Right Arm] Pulse Oximetry 92 92 92 Oxygen Delivery Method Nasal Cannula Nasal Cannula Nasal Cannula Oxygen Flow Rate 3 3 3 Sepsis Recent Fever Within 48 Hours Sepsis New/Unexplained Change in Mental Status Sepsis Action Taken by Nursing 11/29/23 11:30 11/29/23 11:30 Temperature Temperature Source Pulse Rate 82 Pulse Rate [Left Finger] Respiratory Rate 17 Respiratory Effort / Characteristics Respiratory Depth Respiratory Pattern Blood Pressure 152/89 H Blood Pressure [Right Arm] Blood Pressure Mean 116 Blood Pressure Mean [Right Arm] Blood Pressure Position [Right Arm] Pulse Oximetry 91 Oxygen Delivery Method Nasal Cannula Oxygen Flow Rate Sepsis Recent Fever Within 48 Hours Sepsis New/Unexplained Change in Mental Status Sepsis Action Taken by Nursing Laboratory Data 11/29/23 10:16 11/29/23 10:16 Lab Results 11/29/23 11/29/23 11/29/23 Range/Units 10:16 10:23 10:27 WBC 10.18 (4.8-10.8) K/ul RBC 3.79 L (4.70-6.10) M/uL Hgb 13.2 L (14.0-18.0) g/dl Hct 39.8 L (42.0-52.0) % MCV 105.0 H (80.0-100.0) fL MCH 34.8 H (25.0-34.0) pg MCHC 33.2 (32.0-36.0) g/dL RDW Std Deviation 56.5 H (36.4-46.3) fL RDW Coeff of Rogelio 14.4 (11.5-14.5) % Plt Count 223 (130-400) K/uL MPV 9.0 L (9.4-12.4) fL Immature Gran % (Auto) 0.5 % Neut % (Auto) 84.2 % Lymph % (Auto) 4.7 % [place] % (Auto) 9.7 % Eos % (Auto) 0.3 % Baso % (Auto) 0.6 % Neut # (Auto) 8.57 H (1.40-6.50) K/uL Lymph # (Auto) 0.48 L (1.20-3.40) K/uL [place] # (Auto) 0.99 H (0.11-0.59) K/uL Eos # (Auto) 0.03 (0.00-0.50) K/uL Baso # (Auto) 0.06 (0.00-0.20) K/uL Immature Gran # (Auto) 0.05 (0.01-0.20) K/uL VBG pH 7.41 (7.36-7.41) VBG pCO2 39 (38-50) mmHg VBG pO2 39 mmHg VBG HCO3 25 mmol/L VBG O2 Saturation 63.7 % VBG Base Excess 0.1 mEq/L Sodium 137 (136-145) mmol/L Potassium 3.9 (3.5-5.1) mmol/L Chloride 103 (98-107) mmol/L Carbon Dioxide 24 (21-32) mmol/L Anion Gap 10 (3-11) BUN 12 (6-23) mg/dl Creatinine 0.92 (0.6-1.4) mg/dl Est Cr Clr Drug Dosing 111.5 ml/min Est GFR ( Amer) 104.4 ml/min Est GFR (Non-Af Amer) 90.1 ml/min BUN/Creatinine Ratio 13.0 (10-20) Glucose 117 H (70-99(Fasting)) mg/dl Lactate 1.6 (0.4-2.0) mmol/L Calcium 8.7 (8.6-10.3) mg/dl Magnesium 1.7 (1.7-2.4) mg/dl Total Bilirubin 0.6 (0.2-1.0) mg/dl Direct Bilirubin 0.1 (0-0.2) mg/dl AST 25 (13-39) U/L ALT 24 (7-52) U/L Alkaline Phosphatase 88 (34-104) U/L Troponin I High Sens 17.1 (0-20) pg/ml B-Natriuretic Peptide (0-100) pg/ml Total Protein 7.1 (6.0-8.3) gm/dl Albumin 3.9 (3.4-5.0) gm/dl Procalcitonin 0.11 (0-0.5) ng/ml Ethyl Alcohol mg/dL < 10.0 (<10.0) mg/dl SARS-CoV-2 (PCR) NEGATIVE (Negative) Influenza Type A (PCR) Negative (Neg) Influenza Type B (PCR) Negative (Neg) RSV (RT-PCR) Positive A (Neg) 11/29/23 Range/Units 10:34 WBC (4.8-10.8) K/ul RBC (4.70-6.10) M/uL Hgb (14.0-18.0) g/dl Hct (42.0-52.0) % MCV (80.0-100.0) fL MCH (25.0-34.0) pg MCHC (32.0-36.0) g/dL RDW Std Deviation (36.4-46.3) fL RDW Coeff of Rogelio (11.5-14.5) % Plt Count (130-400) K/uL MPV (9.4-12.4) fL Immature Gran % (Auto) % Neut % (Auto) % Lymph % (Auto) % [place] % (Auto) % Eos % (Auto) % Baso % (Auto) % Neut # (Auto) (1.40-6.50) K/uL Lymph # (Auto) (1.20-3.40) K/uL [place] # (Auto) (0.11-0.59) K/uL Eos # (Auto) (0.00-0.50) K/uL Baso # (Auto) (0.00-0.20) K/uL Immature Gran # (Auto) (0.01-0.20) K/uL VBG pH (7.36-7.41) VBG pCO2 (38-50) mmHg VBG pO2 mmHg VBG HCO3 mmol/L VBG O2 Saturation % VBG Base Excess mEq/L Sodium (136-145) mmol/L Potassium (3.5-5.1) mmol/L Chloride (98-107) mmol/L Carbon Dioxide (21-32) mmol/L Anion Gap (3-11) BUN (6-23) mg/dl Creatinine (0.6-1.4) mg/dl Est Cr Clr Drug Dosing ml/min Est GFR ( Amer) ml/min Est GFR (Non-Af Amer) ml/min BUN/Creatinine Ratio (10-20) Glucose (70-99(Fasting)) mg/dl Lactate (0.4-2.0) mmol/L Calcium (8.6-10.3) mg/dl Magnesium (1.7-2.4) mg/dl Total Bilirubin (0.2-1.0) mg/dl Direct Bilirubin (0-0.2) mg/dl AST (13-39) U/L ALT (7-52) U/L Alkaline Phosphatase (34-104) U/L Troponin I High Sens (0-20) pg/ml B-Natriuretic Peptide 29 (0-100) pg/ml Total Protein (6.0-8.3) gm/dl Albumin (3.4-5.0) gm/dl Procalcitonin (0-0.5) ng/ml Ethyl Alcohol mg/dL (<10.0) mg/dl SARS-CoV-2 (PCR) (Negative) Influenza Type A (PCR) (Neg) Influenza Type B (PCR) (Neg) RSV (RT-PCR) (Neg) Administered Medications Albuterol (Albut/Ipratrop 3mg/0.5mg Neb 3 Ml Vial) 3 ml NEB QIDR MARANDA; Protocol Stop: 12/29/23 14:59 Last Admin: 11/29/23 14:02 Dose: 3 ml Documented By: AMI Azithromycin (Azithromycin 250 Mg Tab) 500 mg PO QAM MARANDA Stop: 12/01/23 09:01 Last Admin: 11/29/23 13:54 Dose: 500 mg Documented By: AMI Discontinued Medications Albuterol (Albut/Ipratrop 3mg/0.5mg Neb 3 Ml Vial) 12 ml NEB ONE ONE; Protocol Stop: 11/29/23 09:49 Last Admin: 11/29/23 09:59 Dose: 12 ml Documented By: DIONI Dexamethasone Sodium Phosphate (DexamethasonePf 10 Mg/Ml Vial) 10 mg IV NOW ONE Stop: 11/29/23 09:49 Last Admin: 11/29/23 09:56 Dose: 10 mg Documented By: DIONI Magnesium Sulfate/Dextrose (Magnesium Sulfate / D5w) 1 gm in 100 mls @ 100 mls/hr IV NOW STA Stop: 11/29/23 10:47 Last Infusion: 11/29/23 11:01 Dose: Infused Documented By: Admin: 11/29/23 09:58 Dose: 100 mls/hr Documented By: DIONI Sodium Chloride (Nss) 500 mls @ 999 mls/hr IV .Q31M ONE Stop: 11/29/23 10:18 Last Infusion: 11/29/23 11:01 Dose: Infused Documented By: Admin: 11/29/23 09:58 Dose: 999 mls/hr Documented By: DIONI Imaging Data Radiologist's Impression: Chest X-Ray 11/29/23 09:49 XR chest 1V portable CLINICAL HISTORY: shob TECHNIQUE: Single frontal radiograph of the chest was obtained. Comparison: Comparison is made to chest radiograph 11/19/2023 FINDINGS: No lines and tubes are seen. The cardiomediastinal silhouette is normal. Faint bibasilar airspace opacities are seen. No evidence of pleural effusion or pneumothorax. IMPRESSION: Faint bibasilar airspace opacities which may represent atelectasis, pneumonia, and/or aspiration. ACT 112: Negative or not required by law. Electronically signed by: Sam Mayorga M.D. 11/29/2023 10:24 AM Discharge Plan Visit Data Chief Complaint: Shortness of Breath/Dyspnea Stated Complaint: COPD IS ACTING UP ED Provider: José Chavez Discharge Problem: Acute respiratory failure with hypoxia, RSV (respiratory syncytial virus infection) Discharge Instructions Interventions: ED Discharge Assessment Last Done: 11/29/23 12:58
[2023-11-29] MEDS: dexAMETHasone**PF** 10 MG/ML VIAL IV ONE (09:56)
[2023-11-29] MEDS: SODIUM CHLORIDE 0.9% 500 ML IV ONE (09:58)
[2023-11-29] MEDS: MAGNESIUM SULFATE / D5W 1 GM/100 ML BAG IV STA (09:58)
[2023-11-29] MEDS: ALBUT/IPRATROP 3MG/0.5MG NEB 3 ML VIAL NEB ONE (09:59)
--- NOTE | 2023-11-29 10:25 | XRay Report ---
XR chest 1V portable CLINICAL HISTORY: shob TECHNIQUE: Single frontal radiograph of the chest was obtained. Comparison: Comparison is made to chest radiograph 11/19/2023 FINDINGS: No lines and tubes are seen. The cardiomediastinal silhouette is normal. Faint bibasilar airspace opa cities are seen. No evidence of pleural effusion or pneumothorax. IMPRESSION: Faint bibasilar airspace opacities which may represent atelectasis, pneumonia, and/or aspiration. ACT 112: Negative or not required by law. Electronically signed by: Sam Mayorga M.D. 11/29/2023 10:24 AM
[2023-11-29 10:32] LABS: Base Excess VBG 0.1 mEq/L; HCO3 VBG 25 mmol/L; Oxygen Saturation VBG 63.7 %; PCO2 VBG 39 mmHg (38-50); PO2 VBG 39 mmHg; pH VBG 7.41 (7.36-7.41)
[2023-11-29 10:37] LABS: Basophils # (auto) 0.06 K/uL (0.00-0.20); Basophils % (auto) 0.6 %; Eosinophils # (auto) 0.03 K/uL (0.00-0.50); Eosinophils % (auto) 0.3 %; Hematocrit (blood only) 39.8 % (42.0-52.0); Hemoglobin 13.2 g/dl (14.0-18.0); Immature Granulocytes # (auto) 0.05 K/uL (0.01-0.20); Immature Granulocytes % (auto) 0.5 %; Lymphocytes # (auto) 0.48 K/uL (1.20-3.40); Lymphocytes % (auto) 4.7 %; Mean Corpuscular Hemoglobin 34.8 pg (25.0-34.0); Mean Corpuscular Hgb Conc 33.2 g/dL (32.0-36.0); Monocytes # (auto) 0.99 K/uL (0.11-0.59); Monocytes % (auto) 9.7 %; Neutrophils # (auto) 8.57 K/uL (1.40-6.50); Neutrophils % (auto) 84.2 %; Platelet Count 223 K/uL (130-400); RDW Coefficient of Variation 14.4 % (11.5-14.5); RDW Standard Deviation 56.5 fL (36.4-46.3); Red Blood Count 3.79 M/uL (4.70-6.10); White Blood Count 10.18 K/ul (4.8-10.8)
[2023-11-29 10:53] LABS: Albumin Level 3.9 gm/dl (3.4-5.0); Bilirubin Direct 0.1 mg/dl (0-0.2); Bilirubin,Total 0.6 mg/dl (0.2-1.0); Calcium 8.7 mg/dl (8.6-10.3); Creatinine Clr Calc Pharmacy 111.5 ml/min; Est GFR (African American) 104.4 ml/min; Est GFR (Non-African American) 90.1 ml/min; Magnesium 1.7 mg/dl (1.7-2.4); Potassium 3.9 mmol/L (3.5-5.1); Total Protein 7.1 gm/dl (6.0-8.3)
[2023-11-29 11:00] LABS: Troponin I High Sensitivity 17.1 pg/ml (0-20)
--- NOTE | 2023-11-29 11:32 | History & Physical Report ---
Date of Service November 29, 2023 Assessment & Plan (1) Acute respiratory failure with hypoxia: (2) COPD exacerbation: (3) RSV (respiratory syncytial virus infection): (4) Alcohol use disorder: (5) Tobacco use disorder: (6) Hypertension: (7) Sleep apnea: Plan This is a 58-year-old male who has significant past medical history of COPD, tobacco dependence, HTN, HLD, chronic diastolic CHF, CAD, hepatic steatosis who presents to ED secondary to worsening shortness of breath over the last few days. Acute hypoxic respiratory failure in setting of RSV Acute COPD exacerbation RSV positive Admit to telemetry Continue IV methylprednisolone 40 mg 3 times daily Continue scheduled nebulizer treatment Azithromycin oral 500 milligrams daily x 3 days Pulmonary toilet with incentive spirometer, flutter valve Continue Advair and Anoro He follows with [facility] pulmonology, last seen 11/22 Continue to encourage smoking cessation Guaifenesin twice daily Tobacco abuse Encourage cessation Decline nicotine patch Alcohol abuse Patient admits to drinking 2-4 mixed drinks daily with 1 shot in each drink A WSS protocol, monitor for withdrawal Patient denies prior history of withdrawal, states he has gone 2 to 3 days without drink or having an issue Monitor closely, as needed oral Ativan Daily thiamine and folic acid Obstructive sleep apnea Is scheduled to see sleep medicine on Thursday, this likely will need to be rescheduled He has prior history of obstructive sleep apnea diagnosis, but has never worn mask and is currently undergoing further testing Chronic diastolic CHF Hypertension Chronic, stable Continue carvedilol and Lasix Hyperlipidemia Chronic, stable Continue statin DVT prophylaxis: SQ Lovenox FULL CODE PCP: Dr. Wayne Dispo: admit to med [facility] Pt was seen and examined in collaboration with Dr. Dumas, please see addendum History of Present Illness Chief Complaint: Shortness of breath of the last few days. Primary Care Provider: Omer Wayne MD This is a 58-year-old male who has significant past medical history of COPD, tobacco dependence, HTN, HLD, chronic diastolic CHF, CAD, hepatic steatosis who presents to ED secondary to worsening shortness of breath over the last few days. Outpatient records were reviewed. Of significance patient was seen and evaluated in ED on 11/19/2023 due to shortness of breath.Chest x-ray during that evaluation reviewed no acute cardiopulmonary abnormality. He received a nebulizer en route which significantly improved his breathing. He was saturating normally on room air. He did receive IV Solu-Medrol and was discharged home on Medrol Dosepak. Respiratory bio fire was negative at this time. Since being seen in ED he did have follow-up with pulmonary provider on 11/22.Recommendations during this visit were to change to Incruse once daily and replacement of Anoro. Recommendations were also made to continue fluticasone- salmeterol twice daily. He has been doing this over the last 10 days. He complains of intermittent shortness of breath he states that, "comes and goes." His cough has been mostly dry but occasionally he is able to produce sputum. He is unsure if it is purulent or not. He denies any fever, chills, sweats, lightheadedness, dizziness, chest pain, hemoptysis, nausea, vomit, abdominal pain, changes bowel or urinary habits. He is trying to quit smoking but states he has had a cigarette or 2 a day. He is scheduled to have back surgery with Dr. Brenner. Currently it has been pushed back secondary to COPD exacerbations as well as he is to be smoke-free for 30 days. He does not feel that he completely but over the exacerbation from . He did complete his Medrol Dosepak but did not take any antibiotics. In ED patient made hemodynamically stable but he was hypoxic on arrival requiring 3 L of oxygen. He did receive 1 hour-long nebulizer treatment, IV dexamethasone 10 mg, 1 g of magnesium and IV fluids. Friend at bedside who also helps elicit history. Allergies Allergy/AdvReac Type Severity Reaction Status Date / Time TONIA Inhibitors AdvReac Severe ALESSANDRO Verified 11/02/23 09:36 ARB-Angiotensin Receptor AdvReac Severe ALESSANDRO Verified 11/02/23 09:36 Antagonist prednisone AdvReac Mild "jitterines Unverified 10/19/23 10:39 s" Home Medications Medication Instructions Recorded Confirmed Type albuterol sulfate 90 mcg/actuation 2 puff inhalation Q4H PRN 03/09/23 11/29/23 Rx aerosol inhaler Shortness Of Breath Or Wheezing #8.5 grams aspirin 81 mg tablet,delayed 81 mg PO QAM #30 tabs 03/09/23 11/29/23 Rx release atorvastatin 80 mg tablet 80 mg PO QAM 03/16/23 11/29/23 History baclofen 10 mg tablet 10 mg PO TID PRN Muscle Spasm 06/09/23 11/29/23 History fluticasone 500 mcg-salmeterol 50 2 inh inhalation BID 06/09/23 11/29/23 History mcg/dose blistr powdr for inhalation (Advair Diskus) gabapentin 300 mg capsule 300 mg PO TID PRN Pain 06/09/23 11/29/23 History ipratropium 0.5 mg-albuterol 3 mg 3 ml inhalation Q6H PRN 06/11/23 11/29/23 Rx (2.5 mg base)/3 mL nebulization wheezing/severe shortness of soln breath #90 mL furosemide 20 mg tablet 20 mg PO QAM 10/14/23 11/29/23 History potassium chloride 20 mEq 20 meq PO QAM 10/14/23 11/29/23 History tablet,extended release carvedilol 12.5 mg tablet 12.5 mg PO BID 11/29/23 11/29/23 History umeclidinium 62.5 mcg/actuation 1 inh inhalation DAILY 11/29/23 11/29/23 History blister powder for inhalation Past Med/Surg History Medical History (Updated 11/29/23 @ 12:17 by Melany Ba PA-C) Hepatic steatosis CAD (coronary artery disease) GERD (gastroesophageal reflux disease) controlled, stable per pt Kidney disease following with [facility] Nephrology. Sleep apnea no device Anemia Tobacco use disorder Plaque psoriasis Hx of seasonal allergies Spinal stenosis Chronic obstructive pulmonary disease controlled, stable per pt; last rescue inhaler use several days ago-average use 2x weekly History of shingles 05/2022, PRN gabapentin for chronic right eye irritation/pain from shingles Hypertension controlled, stable per pt Surgical History History of cardiac catheterization 02/2023 [facility]. no stents. History of back surgery Hx of arthroscopic knee surgery Left Hx of foot surgery Left Hx of inguinal hernia repair History of esophagogastroduodenoscopy (EGD) Family History Father Diabetes Social History Smoking Status: Former smoker Tobacco Type: Cigarettes Second Hand Exposure: No; Do You Dip or Chew Tobacco: No; Hx Alcohol Use: Yes (quit drinking 1 mo ago) Alcohol type: beer and other Alcohol Intake Frequency: 4 or More x per/Week Alcohol Intake Frequency Comment: 2-12 beers 5x/week Hx Substance Use: No Preferred Language: Romansh Communication Ability: [employer] Division Chair Required: No Beliefs That Will Affect Care: None Current Living Situation: Family Current Living Situation Comment: lives with aunt Feels Safe at Home: Yes Assistive Devices: Cane and Walker Review of Systems Review of Systems: All systems reviewed & are unremarkable except as noted in HPI & below Physical Exam Physical Exam: Constitutional: WD/WN, vitals as above, NAD, sitting up in bed, pleasant, conversing easily Head: Normocephalic, Atraumatic Eyes: PERRL, conjunctivae normal, anicteric sclerae ENMT: external ear and nose normal, oropharynx normal Neck: trachea midline, no thyromegaly normal visual inspection Respiratory: normal respiratory effort, lungs clear to auscultation with bibasilar expiratory wheeze and prolonged expiratory phase, no rales, rhonchi. Normal insp/exp effort, no accessory muscle use Cardiovascular: RRR, no murmur, no edema Vessels: no JVD or carotid bruit Chest: normal inspection of chest Abdomen: normal bowel sounds, soft, nontender, no hepatosplenomegaly Musculoskeletal: no cyanosis or clubbing, extremities motor strength 5/5 Skin: no rashes, warm and dry normal turgor Neurologic: PERRL, EOMI, accommodation nl, no face palsy, no dysarthria CN's II-XI intact bilaterally and moves all extremities Psychiatric: A+Ox3, euthymic affect Lymphatic: no cervical or axillary lymphadenopathy : deferred Results & Data Results & Data Vital Signs (Past 12 Hours) Vital Signs Temp Pulse Pulse Resp BP BP Pulse Ox 11/29/23 11:00 82 17 129/76 92 11/29/23 10:30 87 23 96/53 L 92 11/29/23 10:00 101 H 21 113/79 92 11/29/23 09:49 11/29/23 09:42 11/29/23 09:42 109 H 11/29/23 09:39 111 H 20 161/98 H 90 11/29/23 09:28 36.5 C 122 H 24 156/94 H 86 L 11/29/23 09:23 108 H 25 H 161/98 H 91 O2 Del Method O2 Flow Rate 11/29/23 11:00 Nasal Cannula 3 11/29/23 10:30 Nasal Cannula 3 11/29/23 10:00 Nasal Cannula 3 11/29/23 09:49 Nasal Cannula 3 11/29/23 09:42 Nasal Cannula 3 11/29/23 09:42 11/29/23 09:39 Nasal Cannula 3 11/29/23 09:28 Room Air 11/29/23 09:23 Nasal Cannula 3 Laboratory Results I have independently reviewed and interpreted patient's admitting labs including CBC, CMP, vbg, mag, lactic acid, procal and troponin. RSV Positive Diagnostic Findings Chest X-Ray 11/29/23 09:49 XR chest 1V portable CLINICAL HISTORY: shob TECHNIQUE: Single frontal radiograph of the chest was obtained. Comparison: Comparison is made to chest radiograph 11/19/2023 FINDINGS: No lines and tubes are seen. The cardiomediastinal silhouette is normal. Faint bibasilar airspace opacities are seen. No evidence of pleural effusion or pneumothorax. IMPRESSION: Faint bibasilar airspace opacities which may represent atelectasis, pneumonia, and/or aspiration. ACT 112: Negative or not required by law. Electronically signed by: Sam Mayorga M.D. 11/29/2023 10:24 AM Medications Administered Medication List Discontinued Medications Albuterol (Albut/Ipratrop 3mg/0.5mg Neb 3 Ml Vial) 12 ml NEB ONE ONE; Protocol Stop: 11/29/23 09:49 Last Admin: 11/29/23 09:59 Dose: 12 ml Documented By: DIONI Dexamethasone Sodium Phosphate (DexamethasonePf 10 Mg/Ml Vial) 10 mg IV NOW ONE Stop: 11/29/23 09:49 Last Admin: 11/29/23 09:56 Dose: 10 mg Documented By: DIONI Magnesium Sulfate/Dextrose (Magnesium Sulfate / D5w) 1 gm in 100 mls @ 100 mls/hr IV NOW STA Stop: 11/29/23 10:47 Last Infusion: 11/29/23 11:01 Dose: Infused Documented By: Admin: 11/29/23 09:58 Dose: 100 mls/hr Documented By: DIONI Sodium Chloride (Nss) 500 mls @ 999 mls/hr IV .Q31M ONE Stop: 11/29/23 10:18 Last Infusion: 11/29/23 11:01 Dose: Infused Documented By: Admin: 11/29/23 09:58 Dose: 999 mls/hr Documented By: DIONI ECG Additional Comments: I have independently reviewed and interpreted patient's admitting EKG which revealed: Sinus tachycardia, 113 bpm, right bundle branch block, compared to EKG done on November 19, 2023 without significant change other than tachycardia COVID-19 Results Results COVID-19 Adm Lab Results: RBC 3.79 M/uL (4.70-6.10) L 11/29/23 WBC 10.18 K/ul (4.8-10.8) 11/29/23 Hgb 13.2 g/dl (14.0-18.0) L 11/29/23 Hct 39.8 % (42.0-52.0) L 11/29/23 Plt Count 223 K/uL (130-400) 11/29/23 Neutrophils (%) (Auto) 84.2 % 11/29/23 Lymphocytes (%) (Auto) 4.7 % 11/29/23 Monocytes # (Auto) 0.99 K/uL (0.11-0.59) H 11/29/23 Eosinophils # (Auto) 0.03 K/uL (0.00-0.50) 11/29/23 Immature Granulocyte % (Auto) 0.5 % 11/29/23 Neutrophils # (Auto) 8.57 K/uL (1.40-6.50) H 11/29/23 Lymphocytes # (Auto) 0.48 K/uL (1.20-3.40) L 11/29/23 Monocytes # (Auto) 0.99 K/uL (0.11-0.59) H 11/29/23 Eosinophils # (Auto) 0.03 K/uL (0.00-0.50) 11/29/23 Basophils # (Auto) 0.06 K/uL (0.00-0.20) 11/29/23 Immature Granulocyte # (Auto) 0.05 K/uL (0.01-0.20) 4 Na 137 mmol/L (136-145) 11/29/23 K 3.9 mmol/L (3.5-5.1) 11/29/23 Cl 103 mmol/L (98-107) 11/29/23 CO2 24 mmol/L (21-32) 11/29/23 Anion Gap 10 (3-11) 11/29/23 BUN 12 mg/dl (6-23) 11/29/23 Creatinine 0.92 mg/dl (0.6-1.4) 11/29/23 BUN/Creatinine Ratio 13.0 (10-20) 11/29/23 Glucose Level 117 mg/dl (70-99(Fasting)) H 11/29/23 Ca 8.7 mg/dl (8.6-10.3) 11/29/23 Total Bilirubin 0.6 mg/dl (0.2-1.0) 11/29/23 Direct Bilirubin 0.1 mg/dl (0-0.2) 11/29/23 AST/SGOT 25 U/L (13-39) 11/29/23 ALT/SGPT 24 U/L (7-52) 11/29/23 Alkaline Phosphatase 88 U/L (34-104) 11/29/23 Total Protein 7.1 gm/dl (6.0-8.3) 11/29/23 Albumin 3.9 gm/dl (3.4-5.0) 11/29/23 Procalcitonin 0.11 ng/ml (0-0.5) 11/29/23 COVID-19 PCR NEGATIVE (Negative) 11/29/23 Influenza Virus Type A (PCR) Negative (Neg) 11/29/23 Influenza Virus Type B (PCR) Negative (Neg) 11/29/23 Chest X-Ray 11/29/23 Code Status & VTE Plan Code Status FULL CODE Supervising Physician Co-Signing Physician Notes I have seen and discussed the case with the collaborating advanced practitioner. I agree with the above H&P. I have reviewed and confirmed the patients medical history, the findings on physical examination, and the patients diagnosis and treatment plan with Mejia EMJIA and agree with the information documented. In short, Mr. Jimenez is a 58 year old gentleman with history of COPD and concurrent tobacco use who is admitted for acute hypoxic respiratory failure iso COPD exacerbation due to RSV. Patient reports feeling much improved after IV steroids/neb treatments. Reports sore abdomen from coughing, but otherwise denies fevers/chills. Notes increase cough and wheeze with somewhat increase in sputum production. GENERAL APPEARANCE: AxOx4, generally well-appearing male, dry cough on exam HEENT: NC, AT. MMM. EOMI, clear conjunctiva, oropharynx clear. NECK: Supple without lymphadenopathy. No stiffness or restricted ROM. HEART: Normal rate and regular rhythm, normal S1/S1, no m/r/g LUNGS: CTAB, moving air well. scattered wheezing, R>L ABDOMEN: Soft, nontender, nondistended with good bowel sounds heard. BACK: No CVAT, no obvious deformity. EXTREMITIES: Without cyanosis, clubbing or edema. NEUROLOGICAL: Grossly nonfocal. Alert and oriented, moving all 4 extremities. CN not formally tested but appear grossly intact. Skin: Warm and dry without any rash. #Acute hypoxic respiratory failure, viral URI/RSV #Acute COPD exacerbation #Current tobacco use RSV + on 11/29/2023, improvement with steroids reported -Continue IV methylpred -Start Azithro 500mg x3 days -Supportive measures as above -Counseled on smoking cessation Rest of plan as above I spent a total of 35 minutes coordinating, documenting, and providing care for this patient excluding time spent in the performance of separately billed services. All of the aforementioned completed outside of collaborating with the assigned advanced practitioner for a full treatment plan. I have reviewed the advanced practitioner's documentation, and I agree with, and take responsibility for the plan of care
[2023-11-29 11:33] LABS: Influenza A virus by PCR Negative (Neg); Influenza B virus by PCR Negative (Neg); RSV by PCR Positive (Neg); SARS CoV2 RNA(COVID-19) Ceph NEGATIVE (Negative)
--- NOTE | 2023-11-29 11:36 | Electrocardiogram Report ---
Test Reason : Blood Pressure : / mmHG Vent. Rate : 113 BPM Atrial Rate : 113 BPM P-R Int : 154 ms QRS Dur : 114 ms QT Int : 348 ms P-R-T Axes : 040 -36 031 degrees QTc Int : 477 ms Sinus tachycardia Left axis deviation Right bundle branch block Abnormal ECG When compared with ECG of 19-NOV-2023 09:06, HR has increased by 20 bpm Otherwise no significant change Confirmed by Joey Glover ([id number]) on 11/29/2023 11:36:04 AM Referred By: Confirmed By:Joey Glover
[2023-11-29] MEDS ORDERED: ALUMINUM/MAGNESIUM SUSP 30 ML UDC PO PRN (12:58)
[2023-11-29] MEDS ORDERED: BACLOFEN 10 MG TAB PO PRN (12:58)
[2023-11-29] MEDS ORDERED: MAGNESIUM HYDROXIDE SUSP 30 ML UDC PO PRN (12:58)
[2023-11-29] MEDS ORDERED: ONDANSETRON INJ 2 MG/ML 2 ML VIAL IV PRN (12:58)
[2023-11-29] MEDS: AZITHROMYCIN 250 MG TAB PO SCH (13:54)
[2023-11-29] MEDS: ALBUT/IPRATROP 3MG/0.5MG NEB 3 ML VIAL NEB SCH (14:02)
[2023-11-29] MEDS: methylPREDNISolone 40 MG in SYRINGE 0 ML IV SCH (20:17)
[2023-11-29] MEDS: ENOXAPARIN INJ 40 MG/0.4 ML SYR SQ SCH (20:17)
[2023-11-29] MEDS: carvediloL 12.5 MG TAB PO SCH (20:18)
[2023-11-29] MEDS: guaiFENesin 600 MG TABCR PO SCH (20:18)
[2023-11-29] MEDS: FLUTICASONE/VILANTEROL 100/25MCG 14 PUFFS/INHALER INH SCH (23:10)
[2023-11-30 04:23] LABS: Hematocrit (blood only) 36.4 % (42.0-52.0); Hemoglobin 12.5 g/dl (14.0-18.0); Mean Corpuscular Hemoglobin 35.7 pg (25.0-34.0); Mean Corpuscular Hgb Conc 34.3 g/dL (32.0-36.0); Mean Platelet Volume 9.8 fL (9.4-12.4); Platelet Count 228 K/uL (130-400); RDW Coefficient of Variation 14.2 % (11.5-14.5); RDW Standard Deviation 54.3 fL (36.4-46.3); White Blood Count 9.02 K/ul (4.8-10.8)
[2023-11-30 04:40] LABS: Albumin Globulin Ratio 1.3 (0.9-2); Albumin Level 3.9 gm/dl (3.4-5.0); Bilirubin,Total 0.5 mg/dl (0.2-1.0); Calcium 8.9 mg/dl (8.6-10.3); Creatinine Clr Calc Pharmacy 102.6 ml/min; Est GFR (African American) 94.4 ml/min; Est GFR (Non-African American) 81.4 ml/min; Total Protein 6.9 gm/dl (6.0-8.3)
[2023-11-30 04:53] LABS: Basophils # (auto) 0.01 K/uL (0.00-0.20); Basophils % (auto) 0.1 %; Immature Granulocytes # (auto) 0.03 K/uL (0.01-0.20); Immature Granulocytes % (auto) 0.3 %; Lymphocytes # (auto) 0.32 K/uL (1.20-3.40); Lymphocytes % (auto) 3.5 %; Monocytes # (auto) 0.28 K/uL (0.11-0.59); Monocytes % (auto) 3.1 %; Neutrophils # (auto) 8.38 K/uL (1.40-6.50); Polychromasia 1+
[2023-11-30] MEDS: ATORVASTATIN 40 MG TAB PO SCH (08:16)
[2023-11-30] MEDS: UMECLIDINIUM BROMIDE 62.5MCG/BLISTER 7 PUFFS/INHALER INH SCH (08:16)
[2023-11-30] MEDS: POTASSIUM CHLORIDE CRTAB 20 MEQ TABCR PO SCH (08:17)
[2023-11-30] MEDS: ASPIRIN 81 MG ECTAB PO SCH (08:17)
[2023-11-30] MEDS: FUROSEMIDE 20 MG TAB PO SCH (08:17)
[2023-11-30] MEDS: FOLIC ACID 1 MG TAB PO SCH (08:18)
[2023-11-30] MEDS: THIAMINE HCL 100 MG TAB PO SCH (08:18)
[2023-11-30] MEDS: BUDESONIDE 0.5 MG/2 ML VIAL (PULMICORT) NEB SCH (10:58)
[2023-11-30] MEDS: ACETYLCYSTEINE 20% INHAL SOLN 4ML ***DISPENSED BY RESP. INH SCH (10:59)
[2023-11-30] MEDS: SODIUM CHLOR 7% 4 ML NEB NEB SCH (11:03)
[2023-11-30] MEDS: guaiFENesin/DEXTROM SYRUP 200MG/20MG 10ML UDC PO SCH (11:08)
[2023-11-30] MEDS: BENZONATATE 100 MG CAPSULE PO SCH (13:08)
--- NOTE | 2023-11-30 14:00 | Hospitalist Progress Note ---
Date of Service November 30, 2023 Assessment & Plan (1) Acute respiratory failure with hypoxia: (2) COPD exacerbation: (3) RSV (respiratory syncytial virus infection): (4) Alcohol use disorder: (5) Tobacco use disorder: (6) Hypertension: (7) Sleep apnea: Plan 58-year-old male who has significant past medical history of COPD, tobacco dependence, HTN, HLD, chronic diastolic CHF, CAD, hepatic steatosis who presents to ED secondary to worsening shortness of breath over the last few days. He is being managed for the following: Acute hypoxic respiratory failure in setting of RSV Acute COPD exacerbation RSV positive Patient coming in with worsening shortness of breath, increased cough with scant sputum. Admitting CXR with faint bibasilar opacities. Admitting troponin negative. Admitting EKG with sinus tachycardia. Clinically patient does not feel improved, has increased cough, scant sputum, cannot comment on the color of the sputum. He is eating okay and moving bowels okay. Continue with Solu-Medrol and azithromycin /10. Due to ongoing subjective shortness of breath, added Pulmicort/Mucomyst nebs and hypertonic saline neb. Increased oxygen with activity. Encourage incentive spirometer. Continue as needed and scheduled nebs. Dextromethorphan/guaifenesin to help with the cough. Wean down oxygen as tolerated, patient does not use oxygen at home. Encouraged smoking cessation. Follow-up with pulmonology upon discharge. Tobacco abuse: Encourage cessation. Declined nicotine patch Alcohol abuse Patient admits to drinking 2-4 mixed drinks daily with 1 shot in each drink A WSS protocol, monitor for withdrawal Patient denies prior history of withdrawal, states he has gone 2 to 3 days without drink without having an issue Monitor closely, as needed oral Ativan Daily thiamine and folic acid Obstructive sleep apnea: Is scheduled to see sleep medicine on Thursday, this needs to be rescheduled. He has prior history of obstructive sleep apnea diagnosis, but has never worn mask and is currently undergoing further testing Chronic diastolic CHF Hypertension Chronic, stable Continue carvedilol and Lasix Hyperlipidemia: Chronic, stable. Continue statin DVT prophylaxis: SQ Lovenox FULL CODE PCP: Dr. Wayne Dispo: admit to med [facility] Admission and Anticipated Discharge Date Admission Date: November 29, 2023 Subjective Patient was seen and examined at bedside. Patient was sitting up in bed, on 4 L oxygen via nasal cannula, NAD, able to complete sentences without shortness of breath. In the morning patient noted to be short of breath with activity. Encourage flutter valve and incentive spirometer. Patient with cough with scant sputum, patient cannot comment on the color of the sputum. Patient reports eating okay and moving bowels okay, denies chest pain or abdominal pain or headache or dizziness. Physical Exam Physical Exam: GENERAL: Alert and oriented x3. NAD, on 4L via NC. HEENT: No pallor, no icterus. Pupils equal, round and reactive to light. Oral mucosa moist. NECK: No JVD, no neck masses. HEART: S1 and S2 heard. Regular rate and rhythm. No murmur, no gallop. RESPIRATORY SYSTEM: Normal AP diameter. No accessory muscle use. No wheezing, no crackles. decreased breath sounds b/l. ABDOMEN: Soft, bowel sounds present, nontender, no distention. CENTRAL NERVOUS SYSTEM: No facial droop. Speech is clear. Obeys simple commands. Moves extremities. EXTREMITIES: No edema, no erythema seen. Results & Data Results & Data Vital Signs (Past 12 Hours) Vital Signs Temp Pulse Pulse Resp BP BP Pulse Ox 11/30/23 11:56 36.3 C L 75 16 137/79 91 11/30/23 11:03 82 20 90 11/30/23 09:02 11/30/23 07:37 36.6 C 73 18 159/92 H 93 11/30/23 07:35 36.4 C L 73 18 159/92 H 93 11/30/23 07:17 73 20 92 11/30/23 07:14 74 11/30/23 03:12 36.6 C 83 18 131/79 93 O2 Del Method O2 Flow Rate 11/30/23 11:56 Nasal Cannula 4 11/30/23 11:03 Nasal Cannula 4 11/30/23 09:02 Nasal Cannula 3 11/30/23 07:37 Nasal Cannula 3 11/30/23 07:35 11/30/23 07:17 Nasal Cannula 3 11/30/23 07:14 11/30/23 03:12
[2023-11-30] MEDS: ACETAMINOPHEN 325 MG TAB PO PRN (14:32)
[2023-11-30] MEDS: ALBUT/IPRATROP 3MG/0.5MG NEB 3 ML VIAL ONE (19:44)
[2023-11-30] MEDS ORDERED: methylPREDNISolone 40 MG in SYRINGE 0 ML IV SCH (20:55)
--- NOTE | 2023-11-30 21:02 | Communication Note ---
Date of Service: November 30, 2023
[2023-11-30] MEDS: THIAMINE HCL 100 MG in SYRINGE 9 ML IV STA (21:16)
[2023-11-30] MEDS ORDERED: MELATONIN 3 MG TAB PO PRN (22:14)
[2023-11-30 23:24] LABS: Base Excess ABG -0.2 mEq/L (-9-1.8); HCO3 ABG 23 mmol/L (19-24); Oxygen Saturation ABG 96.2 % (90-95); PCO2 ABG 31 mmHg (35-46); PO2 ABG 74 mmHg (80-95); pH ABG 7.47 (7.35-7.45)
[2023-11-30 23:29] LABS: Allen Test Pos (Pos)
[2023-11-30] MEDS: MELATONIN 3 MG TAB PO PRN (23:31)
[2023-12-01] MEDS: IPRATROPIUM BROMIDE NEB SOLN 0.02% 0.5MG/2.5ML VIAL INH SCH (00:30)
[2023-12-01] MEDS: LEVALBUTEROL 1.25 MG/3 ML NEB NEB SCH (00:31)
[2023-12-01] MEDS: hydrALAZINE HCL 20 MG/ML VIAL IV STA (00:40)
[2023-12-01] MEDS: LORazepam 0.25 MG in SYRINGE 0.125 ML IV STA (00:41)
--- NOTE | 2023-12-01 01:06 | CT Scan Report ---
Exam(s): CT HEAD Without Contrast EXAM: CT Head Without Intravenous Contrast CLINICAL HISTORY: zendejas/htn. TECHNIQUE: Axial computed tomography images of the head/brain without intravenous contrast. CTDI is 34.46 mGy and DLP is 625.8 mGy-cm. Automated exposure control was utilized for the study. A dose lowering technique was utilized adhering to the principles of ALARA. COMPARISON: 06/24/2021. FINDINGS: Brain: Age-appropriate generalized atrophy. No acute stroke. No hemorrhage. No abnormal extra-axial fluid collection. No significant white matter disease. Ventricles: No hydrocephalus. No midline shift. Bones/joints: Unremarkable. No acute fracture. Soft tissues: Unremarkable. Sinuses: Unremarkable as visualized. No acute sinusitis. IMPRESSION: No acute abnormality. Electronically signed by: Edgar Sharma M.D. 12/01/23 01:05 AM
[2023-12-01 06:26] LABS: Hematocrit (blood only) 37.9 % (42.0-52.0); Hemoglobin 12.5 g/dl (14.0-18.0); Mean Corpuscular Hemoglobin 34.4 pg (25.0-34.0); Mean Corpuscular Volume 104.4 fL (80.0-100.0); Platelet Count 251 K/uL (130-400); RDW Coefficient of Variation 13.8 % (11.5-14.5); RDW Standard Deviation 53.6 fL (36.4-46.3); Red Blood Count 3.63 M/uL (4.70-6.10); White Blood Count 17.92 K/ul (4.8-10.8)
[2023-12-01 06:38] LABS: BUN Creatinine Ratio 30.7 (10-20); Calcium 9.3 mg/dl (8.6-10.3); Creatinine Clr Calc Pharmacy 116.6 ml/min; Est GFR (African American) 108.2 ml/min; Est GFR (Non-African American) 93.4 ml/min; Magnesium 2.1 mg/dl (1.7-2.4); Phosphorus 4.2 mg/dl (2.5-4.9)
--- NOTE | 2023-12-01 06:57 | XRay Report ---
XR chest 1V portable HISTORY: 58 years-old Male sob acute shortness of breath COMPARISON: 11/29/2023 TECHNIQUE: AP view of the chest FINDINGS: Cardiac silhouette is again enlarged. Emphysema. No pneumothorax, pleural effusion or overt pulmonary edema. Mild subsegmental right greater than left bibasilar densities are similar to prior. Bones sonia ear grossly intact. IMPRESSION: Emphysema with mild persistent right greater than left bibasilar opacities suggestive of atelectasis versus pneumonia. ACT 112: Negative or not required by law. The above report was generated using voice recognition software. It may contain grammatical, syntax o r spelling errors. Electronically signed by: Trey Madison M.D. 12/01/2023 6:56 AM
[2023-12-01] MEDS: LORazepam 0.5 MG TAB PO PRN (09:12)
[2023-12-01] MEDS: FUROSEMIDE 40 MG/4 ML VIAL IV STA (11:33)
[2023-12-01] MEDS: OPTIRAY 320 125ml IV ONE (12:47)
--- NOTE | 2023-12-01 12:50 | Pulmonary Consultation ---
Date of Consultation December 01, 2023 Assessment & Plan (1) COPD exacerbation: (2) SOB (shortness of breath): (3) RSV (respiratory syncytial virus infection): (4) Acute respiratory failure with hypoxia: (5) Sleep disorder breathing: (6) Alcohol use disorder: (7) Tobacco use disorder: Plan IMPRESSION: 58-year-old male with a significant past medical history of COPD, tobacco abuse disorder, and alcohol use disorder who was admitted with a COPD exacerbation with acute hypoxic respiratory failure in the setting of RSV infection. RECOMMENDATIONS: 1. COPD with exacerbation - Main symptom is complaint of dyspnea at this time. He does still require 4 L nasal cannula. Did review his most recent ABG which demonstrates alkalosis and without CO2 retention. Patient's primary hypoxia is likely driven from his RSV infection. CTA demonstrates no pulmonary emboli. Continue with supplemental oxygen and wean down as tolerated. He does have a slight wheeze on exam when I see him. He does not have great air movement likely at baseline. Continue with intravenous steroids for today. Reassess tomorrow and consider titrating down depending on patient's exam. Agree with azithromycin. Will change from Breo to budesonide and Perforomist. Continue with scheduled Xopenex and ipratropium. Mucomyst can continue if he tolerates it. Hypertonic saline would be beneficial as he is having difficulty with airway clearance. Unfortunately, we do not have patient's outpatient records, particularly his pulmonary function testing or prior outpatient pulmonary notes as these would be helpful to help classify the patient further and provide guidance moving forward. He does have outpatient pulmonary medicine with whom he can follow at the time of discharge. 2. Shortness of breath - Multifactorial in the patient with COPD, RSV infection, and hypoxia. Additionally, the patient does appear somewhat anxious and I question if a degree of this could be related to alcohol withdrawal symptoms. Continue with as needed Ativan dosing. Will add gabapentin as well. 3. RSV - Continue with symptomatic management as you are. 4. Acute respiratory failure with hypoxia - Again, multifactorial in the patient with COPD and active RSV infection. Would titrate down settings to be greater than 90%. Patient very well may require oxygen therapy at home. 5. Sleep disordered breathing - Patient apparently with prior diagnosis of sleep apnea, however he had been noncompliant with mask. He was scheduled for outpatient polysomnography to be performed today. This certainly should be rescheduled. He is complaining of waking at night with gasping for breathing. He denies any daytime drowsiness or other concerning symptoms. 6. Alcohol use disorder - Patient reportedly drinks between 2 and 4 mixed drinks a day. On my exam today, he does appear somewhat anxious and a bit a gitated at times. I question if this certainly could be contributing to his worsening dyspnea and status. Agree with [facility] protocol for this patient. 7. Tobacco use disorder - Patient with an approximate [id number] history of smoking. He smoked 2 packs a day since his teenage years. He states that he was down to approximately half pack a day a few months ago. Patient still has intermittent smoking patterns. Patient would largely benefit from smoking cessation moving forward. Thank you for allowing us to participate in the care of this patient. We will be happy to follow along. Supervising Physician Co-Signing Physician Notes I saw and evaluated the patient with Edmundo Carson PA-C, and agree with findings and plan as documented in the note. 58-year-old male presented to hospital with worsening shortness of breath Was found to have RSV leading to COPD exacerbation. Pulmonary consulted for the same. At the time of examination he was saturating 91-92% on 4 L nasal cannula. He stated that he still feeling the same compared to when he came to the hospital He has cough but has difficulty bringing it up. Denies any chest pain, no hemoptysis Did have Incruse inhaler at home and was compliant with it. No dysuria, no diarrhea prior to coming to the hospital Social history:> [id number] smoking history, currently smoking half a pack a day. Drinks alcohol heavily on a regular basis. 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 No history of lung cancer in the family Constitutional: No acute distress HEENT: EOMI, PERRLA, thick neck Respiratory system: Decreased air entry bilaterally, no wheeze, no rhonchi, mild crackles bilateral lower lobes CVS: S1-S2 positive, no murmurs or gallops Abdomen: Soft, nontender, nondistended, positive bowel sounds x4 Extremities: +2 pulses bilaterally radialis/ dorsalis pedis, no cyanosis, no edema, obese Neuro: Awake alert oriented x3 Psych: Normal mood and affect G/U: No [place] CTA chest 12/01/2023 personally reviewed: Centrilobular emphysema appreciated bilaterally Right lower lobe 6 mm subpleural pulmonary nodule Tree-in-bud opacities appreciated bilaterally especially in the left lower lobe No significant mediastinal lymphadenopathy Plan: DC Sherita, start the patient on budesonide nebulized along with Brovana. Continue with Incruse and nebulized Mucomyst Add hypertonic saline nebulized, continue with Mucinex and flutter valve Continue with Solu-Medrol for the time being. Will gradually try to go down to twice daily tomorrow if the patient is doing okay Will benefit from BiPAP/CPAP nightly and as needed shortness of breath Please note the above document was generated using voice recognition software. It may contain grammatical, syntax or spelling errors.Any formal questions or concerns about the content, text or information contained within the body of this dictation should be directly addressed to the provider for clarification. History of Present Illness Reason for Consultation: ?COPD exac, viral URTI. SOB not improving. Requesting Physician: Dr. Ellis Attending Physician: Edgar Ellis MD History of Present Illness Patient is a 58-year-old male with significant past medical history of hypertension, obesity, anemia, chronic back pain, alcohol use disorder, tobacco abuse, and COPD who was admitted on 11/28 with a COPD exacerbation in the setting of RSV infection. Patient had been treated with intravenous steroids, azithromycin, and a combination of nebulizers and therapies. Unfortunately, the patient's symptoms have persisted, specifically the shortness of breath. Upon discussion with the patient, he reports that he has dyspnea with any exertion. He also complains of a cough which feels visceral, however he is unable to clear secretions. He denies any dizziness or lightheadedness. No chest pain or palpitations. No hemoptysis. Upon evaluation in room 2611, the patient reports of significant dyspnea with any mild exertion. He denies complaints of chest pain, palpitations, dizziness, or lightheadedness. He has been using his inhalers but has not received significant benefit he feels. Patient was recently diagnosed with COPD in February of this year. He reports that he has been on multiple combinations of inhalers. He saw pulmonary medicine for the first time a week or 2 ago. He reports that in the outpatient setting he is currently on Anoro and Advair. Patient is scheduled to undergo CTA soon. Additionally, the patient reports a prior diagnosis of obstructive sleep apnea. He was actually scheduled for a sleep study to be formed in the outpatient today. He did try to play her BiPAP last night, but reports that he could not tolerate the settings. He reports waking at night gasping. He reports no daytime drowsiness. Allergies Allergy/AdvReac Type Severity Reaction Status Date / Time TONIA Inhibitors AdvReac Severe ALESSANDRO Verified 11/02/23 09:36 ARB-Angiotensin Receptor AdvReac Severe ALESSANDRO Verified 11/02/23 09:36 Antagonist prednisone AdvReac Mild "jitterines Unverified 10/19/23 10:39 s" Home Medications Medication Instructions Recorded Confirmed Type albuterol sulfate 90 mcg/actuation 2 puff inhalation Q4H PRN 03/09/23 11/29/23 Rx aerosol inhaler Shortness Of Breath Or Wheezing #8.5 grams aspirin 81 mg tablet,delayed 81 mg PO QAM #30 tabs 03/09/23 11/29/23 Rx release atorvastatin 80 mg tablet 80 mg PO QAM 03/16/23 11/29/23 History baclofen 10 mg tablet 10 mg PO TID PRN Muscle Spasm 06/09/23 11/29/23 History fluticasone 500 mcg-salmeterol 50 2 inh inhalation BID 06/09/23 11/29/23 History mcg/dose blistr powdr for inhalation (Advair Diskus) gabapentin 300 mg capsule 300 mg PO TID PRN Pain 06/09/23 11/29/23 History ipratropium 0.5 mg-albuterol 3 mg 3 ml inhalation Q6H PRN 06/11/23 11/29/23 Rx (2.5 mg base)/3 mL nebulization wheezing/severe shortness of soln breath #90 mL furosemide 20 mg tablet 20 mg PO QAM 10/14/23 11/29/23 History potassium chloride 20 mEq 20 meq PO QAM 10/14/23 11/29/23 History tablet,extended release carvedilol 12.5 mg tablet 12.5 mg PO BID 11/29/23 11/29/23 History umeclidinium 62.5 mcg/actuation 1 inh inhalation DAILY 11/29/23 11/29/23 History blister powder for inhalation Patient History Medical History (Updated 12/01/23 @ 13:30 by Edmundo Carson PA-C) Hepatic steatosis CAD (coronary artery disease) GERD (gastroesophageal reflux disease) controlled, stable per pt Kidney disease following with [facility]. Sleep apnea no device Anemia Tobacco use disorder Plaque psoriasis Hx of seasonal allergies Spinal stenosis Chronic obstructive pulmonary disease controlled, stable per pt; last rescue inhaler use several days ago-average use 2x weekly History of shingles 05/2022, PRN gabapentin for chronic right eye irritation/pain from shingles Hypertension controlled, stable per pt Surgical History History of cardiac catheterization 02/2023 [facility]. no stents. History of back surgery Hx of arthroscopic knee surgery Left Hx of foot surgery Left Hx of inguinal hernia repair History of esophagogastroduodenoscopy (EGD) Family History Father Diabetes Social History Smoking Status: Former smoker Tobacco Type: Cigarettes Smoking End Date: 11/26/23; Second Hand Exposure: No; Do You Dip or Chew Tobacco: No; Hx Alcohol Use: Yes Alcohol type: hard liquor Alcohol Intake Frequency: 4 or More x per/Week Alcohol Intake Frequency Comment: 2-12 beers 5x/week Hx Substance Use: No Preferred Language: Greenlandic Communication Ability: Effective Senior Ui Ux Designer Required: No Beliefs That Will Affect Care: None Current Living Situation: Parent Current Living Situation Comment: lives with aunt Other Information That Helps Us Care for You: No Feels Safe at Home: Yes Safety Concerns: Feels Safe At This Time Assistive Devices: Nebulizer Review of Systems Review of Systems: A complete 10 point review of systems was reviewed with the patient with pertinent positives and negatives as per history of present illness. All else were negative. Physical Exam Physical Exam: VITAL SIGNS - Vital signs and nursing notes were reviewed. GENERAL - 58-year-old male appearing his stated age who is in no acute distress. Communicates well with provider and answers questions appropriately. SKIN - Without rashes or lesions. NOSE - Midline and without cyanosis. MOUTH/OROPHARYNX - Without perioral cyanosis. NECK - Neck with FROM. LUNGS - Chest wall evaluation demonstrates normal chest wall A:P diameter. Auscultation reveals slight wheeze noted. Poor air movement. No rales or rhonchi. CARDIAC - RRR with S1/S2. No murmur, rubs, or gallops appreciated. ABDOMEN - Abdominal inspection demonstrates obese. BS normoactive all four quadrants. No tenderness, palpable masses, or ascites noted. EXTREMITIES - Nail clubbing not present. No peripheral cyanosis. No pretibial edema present. +3/5 radial palpated throughout. PSYCH - A&Ox3 and cooperates fully with examiner. Anxious appearing. Results & Data Results & Data Vital Signs (Past 12 Hours) Vital Signs Temp Pulse Pulse Resp BP Pulse Ox O2 Del Method 12/01/23 11:46 93 H 20 90 Nasal Cannula 12/01/23 10:46 35.5 C L 90 22 142/88 H 93 Nasal Cannula 12/01/23 09:20 Nasal Cannula 12/01/23 07:34 36.3 C L 87 22 151/93 H 93 Nasal Cannula 12/01/23 07:28 89 22 92 Nasal Cannula 12/01/23 07:12 96 H 12/01/23 03:29 36.3 C L 94 H 20 147/87 H 92 Nasal Cannula 12/01/23 01:07 165/100 H O2 Flow Rate 12/01/23 11:46 4 12/01/23 10:46 4 12/01/23 09:20 4 12/01/23 07:34 4 12/01/23 07:28 4 12/01/23 07:12 12/01/23 03:29 3 12/01/23 01:07 PG Care Time/CCT Total # of Minutes Spent Total Time Spent with Patient: Total time spent is greater than 50% in coordination of care (as documented) at patient's floor/unit and/or counseling patient: Coding Level of Care Code 95954 INT INP/OBS CARE 3/75MIN Diagnoses COPD exacerbation J44.1 SOB (shortness of breath) R06.02 RSV (respiratory syncytial virus infection) B33.8 Acute respiratory failure with hypoxia J96.01 Sleep disorder breathing G47.30 Alcohol use disorder F10.90 Tobacco use disorder F17.200
[2023-12-01] MEDS ORDERED: GABAPENTIN 1200MG ALCOHOL WITHDRAWAL LOAD PO STA (13:05)
--- NOTE | 2023-12-01 13:05 | CT Scan Report ---
CT ANGIOGRAPHY OF THE CHEST, PULMONARY EMBOLUS PROTOCOL CLINICAL HISTORY: Ongoing shortness of breath. Evaluate for pulmonary embolus. COMPARISON STUDY: Chest CT June 09, 2023. Chest radiograph November 30, 2023. TECHNIQUE: Following IV administration of 118 mL of Optiray, helical axial images of the chest were o btained utilizing the pulmonary embolus protocol. Maximal intensity projections and sagittal and cor onal reformats were viewed on an independent 3D workstation. IV contrast was administered without co mplication. Automated exposure control was utilized for the study. A dose lowering technique was ut ilized adhering to the principles of ALARA. CT DOSE: 1006.84 mGy.cm FINDINGS: No pulmonary emboli are identified. There is no thoracic aortic dissection. Size of the he art is normal. There is no pericardial effusion. There is a small hiatal hernia. No pneumothorax or p leural effusion is present. A 6 mm subpleural right lower lobe nodule on image 136 remains unchanged. This is likely benign. Central airways are patent. Innumerable lower lobe predominant tiny pulmonary nodules are noted, predominantly within a tree-in-bud/centrilobular distribution. There is mild emph ysema. No cavitation is present. Probable hepatic steatosis. No acute fractures within the bony thora x. IMPRESSION: 1. No pulmonary emboli identified. 2. Innumerable lower lobe predominant tree-in-bud/centrilobular pulmonary nodules. The findings favor an infectious etiology such as bronchiolitis. Although less likely, aspiration pneumonitis could hav e a similar imaging appearance. 3. Mild emphysema. ACT 112: Negative or not required by law. Electronically signed by: Quan Tripp M.D. 12/01/2023 1:04 PM
[2023-12-01] MEDS: GABAPENTIN 600 MG TAB PO ONE (14:04)
--- NOTE | 2023-12-01 14:43 | Hospitalist Progress Note ---
Date of Service December 01, 2023 Assessment & Plan (1) Acute respiratory failure with hypoxia: (2) COPD exacerbation: (3) RSV (respiratory syncytial virus infection): (4) Alcohol use disorder: (5) Tobacco use disorder: (6) Hypertension: (7) Sleep apnea: Plan 58-year-old male who has significant past medical history of COPD, tobacco dependence, HTN, HLD, chronic diastolic CHF, CAD, hepatic steatosis who presents to ED secondary to worsening shortness of breath over the last few days. He is being managed for the following: Acute hypoxic respiratory failure in setting of RSV Acute COPD exacerbation RSV positive Patient coming in with worsening shortness of breath, increased cough with scant sputum. Admitting CXR with faint bibasilar opacities. Admitting troponin negative. Admitting EKG with sinus tachycardia. CTA chest w/ no PE. Clinically patient does not feel improved, has increased cough, scant sputum, cannot comment on the color of the sputum. He is eating okay and moving bowels okay. Continue with Solu-Medrol and azithromycin 11/28. Due to ongoing subjective shortness of breath, Consulted Pulm. C/w Pulmicort/proformist/Mucomyst nebs and hypertonic saline neb. Increased oxygen with activity. Encourage incentive spirometer. Continue as needed and scheduled nebs. Dextromethorphan/guaifenesin to help with the cough. Wean down oxygen as tolerated, patient does not use oxygen at home. Encouraged smoking cessation. Follow-up with pulmonology upon discharge. CPAP at night. Giving a dose of iv lasix to see if it helps w/ breathing, his home lasix was hence held, can resume daniele or give additional iv lasix pending clinical assessment. Tobacco abuse: Encourage cessation. Declined nicotine patch Alcohol abuse Patient admits to drinking 2-4 mixed drinks daily with 1 shot in each drink A WSS protocol, monitor for withdrawal Patient denies prior history of withdrawal, states he has gone 2 to 3 days without drink without having an issue Monitor closely, as needed oral Ativan Daily thiamine and folic acid Obstructive sleep apnea: Is scheduled to see sleep medicine on Thursday 11/30, this needs to be rescheduled. He has prior history of obstructive sleep apnea diagnosis, but has never worn mask and is currently undergoing further testing Chronic diastolic CHF Hypertension Chronic, stable Continue carvedilol and Lasix Hyperlipidemia: Chronic, stable. Continue statin DVT prophylaxis: SQ Lovenox FULL CODE PCP: Dr. Wayne Dispo: admit to [facility] tele Admission and Anticipated Discharge Date Admission Date: November 29, 2023 Subjective Patient was seen and examined at bedside. Patient was sitting up in bed, on 4 L oxygen via nasal cannula, NAD, able to complete sentences without shortness of breath. Patient reports shortness of breath with minimal activity and does appear to be very anxious. Concern of alcohol withdrawal on top of respiratory failure worsening the situation, gabapentin taper restarted. CT chest ordered to rule out PE, negative for PE. Pulmonology consulted due to patient's concern that he is not improving. Per RN, patient is eating okay and moving bowels okay. Patient reports same frequency of cough with clear sputum. Physical Exam Physical Exam: GENERAL: Alert and oriented x3. NAD, on 4L via NC. HEENT: No pallor, no icterus. Pupils equal, round and reactive to light. Oral mucosa moist. NECK: No JVD, no neck masses. HEART: S1 and S2 heard. Regular rate and rhythm. No murmur, no gallop. RESPIRATORY SYSTEM: Normal AP diameter. No accessory muscle use. No wheezing, no crackles. decreased breath sounds b/l. ABDOMEN: Soft, bowel sounds present, nontender, no distention. CENTRAL NERVOUS SYSTEM: No facial droop. Speech is clear. Obeys simple commands. Moves extremities. EXTREMITIES: No edema, no erythema seen. Results & Data Results & Data Vital Signs (Past 12 Hours) Vital Signs Temp Pulse Pulse Resp BP Pulse Ox Pulse Ox 12/01/23 13:00 92 12/01/23 11:46 93 H 20 90 12/01/23 10:46 35.5 C L 90 22 142/88 H 93 12/01/23 09:20 12/01/23 07:34 36.3 C L 87 22 151/93 H 93 12/01/23 07:28 89 22 92 12/01/23 07:12 96 H 12/01/23 03:29 36.3 C L 94 H 20 147/87 H 92 O2 Del Method O2 Del Method O2 Flow Rate O2 Flow Rate 12/01/23 13:00 Nasal Cannula 4 12/01/23 11:46 Nasal Cannula 4 12/01/23 10:46 Nasal Cannula 4 12/01/23 09:20 Nasal Cannula 4 12/01/23 07:34 Nasal Cannula 4 12/01/23 07:28 Nasal Cannula 4 12/01/23 07:12 12/01/23 03:29 Nasal Cannula 3
[2023-12-01] MEDS: hydrOXYzine HCl 25 MG TAB PO PRN (16:27)
[2023-12-01] MEDS: GABAPENTIN 600 MG TAB PO SCH (17:33)
[2023-12-01] MEDS: FORMOTEROL 20 MCG/2 ML VIAL INH SCH (19:05)
--- NOTE | 2023-12-01 23:21 | Communication Note ---
Date of Service: December 01, 2023
[2023-12-01] MEDS: MELATONIN 3 MG TAB PO PRN (23:42)
[2023-12-01] MEDS: ACETAMINOPHEN 325 MG TAB PO STA (23:42)
[2023-12-01 23:59] LABS: Allen Test Pos (Pos); Base Excess ABG 0.6 mEq/L (-9-1.8); HCO3 ABG 25 mmol/L (19-24); Oxygen Saturation ABG 96.3 % (90-95); PCO2 ABG 36 mmHg (35-46); PO2 ABG 74 mmHg (80-95); pH ABG 7.44 (7.35-7.45)
[2023-12-02 04:41] LABS: Hematocrit (blood only) 38.5 % (42.0-52.0); Hemoglobin 12.7 g/dl (14.0-18.0); Mean Corpuscular Volume 106.1 fL (80.0-100.0); Mean Platelet Volume 9.4 fL (9.4-12.4); Platelet Count 239 K/uL (130-400); RDW Standard Deviation 55.4 fL (36.4-46.3); Red Blood Count 3.63 M/uL (4.70-6.10); White Blood Count 15.85 K/ul (4.8-10.8)
[2023-12-02 04:59] LABS: BUN Creatinine Ratio 30.8 (10-20); Creatinine Clr Calc Pharmacy 98.7 ml/min; Est GFR (Non-African American) 77.7 ml/min; Magnesium 2.2 mg/dl (1.7-2.4); Phosphorus 5.2 mg/dl (2.5-4.9); Potassium 4.3 mmol/L (3.5-5.1)
--- NOTE | 2023-12-02 07:06 | XRay Report ---
XR chest 1V portable CLINICAL HISTORY: Shortness of breath. COMPARISON STUDY: Chest radiograph November 30, 2023. Chest CT December 01, 2023 performed earlier today. FINDINGS: Lung volumes are normal. Subtle lower lung interstitial thickening is present. There is no pneumothorax or pleural effusion. Cardiac size is normal. Mediastinal contours are normal. There is n o evidence for pulmonary edema. IMPRESSION: Subtle lower lung interstitial thickening which favors an infectious process such as bro nchiolitis, better depicted on recent chest CT. ACT 112: Negative or not required by law. Electronically signed by: Quan Tripp M.D. 12/02/2023 7:05 AM
--- NOTE | 2023-12-02 07:39 | Pulmonology Progress Note ---
Date of Service December 02, 2023 Assessment & Plan (1) COPD exacerbation: (2) SOB (shortness of breath): (3) RSV (respiratory syncytial virus infection): (4) Acute respiratory failure with hypoxia: (5) Sleep disorder breathing: (6) Alcohol use disorder: (7) Tobacco use disorder: Plan IMPRESSION: 58-year-old male with a significant past medical history of COPD, tobacco abuse disorder, and alcohol use disorder who was admitted with a COPD exacerbation with acute hypoxic respiratory failure in the setting of RSV infection. RECOMMENDATIONS: 1. COPD with exacerbation - Main symptom is complaint of dyspnea at this time. He does still require 4 L nasal cannula. Did review his most recent ABG which demonstrates alkalosis and without CO2 retention. Patient's primary hypoxia is likely driven from his RSV infection. CTA demonstrates no pulmonary emboli. Continue with supplemental oxygen and wean down as tolerated. He is without bronchospasm on exam today. Will decrease his steroids to BID. Question of the steroids may also be contributing to his anxiety. Continue with Budesonide, Perforomist, Xopenex/Atrovent, hypertonic saline, and Mucomyst for now. Encourage flutter valve and incentive spirometry. OOB to chair would benefit the patient. NIV as needed and when sleeping. 2. Shortness of breath - Multifactorial in the patient with COPD, RSV infection, and hypoxia. Again, would continue with treatment of likely withdrawal symptoms contributing to his anxiety and subsequent SOB. 3. RSV - Continue with symptomatic management as you are. 4. Acute respiratory failure with hypoxia - Again, multifactorial in the patient with COPD and active RSV infection. Would titrate down settings to be greater than 90%. Patient very well may require oxygen therapy at home. 5. Sleep disordered breathing - Patient apparently with prior diagnosis of sleep apnea, however he had been noncompliant with mask. Would reschedule his outpatient polysomnography. He is complaining of waking at night with gasping for breathing. He denies any daytime drowsiness or other concerning symptoms. 6. Alcohol use disorder - Patient reportedly drinks between 2 and 4 mixed drinks a day. Agree with [facility] protocol for this patient with aggressive treatment of his s/s. 7. Tobacco use disorder - Patient with an approximate [id number] history of smoking. He smoked 2 packs a day since his teenage years. He states that he was down to approximately half pack a day a few months ago. Patient still has intermittent smoking patterns. Patient would largely benefit from smoking cessation moving forward. 8. Lung Nodule - 6 mm RLL nodule appears stable dating back to imaging on 06/24/2021. No need for continued surveillance of this nodule. Would continue with annual LDCT lung cancer screening exams given his smoking history, age, and risks. Thank you for allowing us to participate in the care of this patient. We will be happy to follow along Admission and Anticipated Discharge Date Admission Date: November 29, 2023 Supervising Physician Co-Signing Physician Notes I saw and evaluated the patient with Edmundo Carson PA-C, and agree with findings and plan as documented in the note. Patient seen and examined at bedside. No acute distress, no adverse events overnight He was saturating 94% on 4 L nasal cannula. I went down to 3 L He still states that he is short of breath and is having difficulty breathing Denies any chest pain Coughing but not bringing up any phlegm. Denies any hemoptysis Social history:> [id number] smoking history, currently smoking half a pack a day. Drinks alcohol heavily on a regular basis. 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 No history of lung cancer in the family Constitutional: No acute distress HEENT: EOMI, PERRLA, thick neck Respiratory system: Decreased air entry bilaterally, no wheeze, no rhonchi, positive crackles bilateral lower lobes CVS: S1-S2 positive, no murmurs or gallops Abdomen: Soft, nontender, nondistended, positive bowel sounds x4 Extremities: +2 pulses bilaterally radialis/ dorsalis pedis, no cyanosis, no edema, obese Neuro: Awake alert oriented x3 Psych: Normal mood and affect G/U: No [place] CTA chest 12/01/2023 personally reviewed: Centrilobular emphysema appreciated bilaterally Right lower lobe 6 mm subpleural pulmonary nodule Tree-in-bud opacities appreciated bilaterally especially in the left lower lobe No significant mediastinal lymphadenopathy Plan: Continue with budesonide nebulized along with Brovana. Continue with Incruse and nebulized Mucomyst Continue with hypertonic saline nebulized, continue with Mucinex and flutter valve Decrease Solu-Medrol to 40 mg every 12 Will benefit from BiPAP/CPAP nightly and as needed shortness of breath Repeat CT chest in 12 months for the right lower lobe pulmonary nodule Please note the above document was generated using voice recognition software. It may contain grammatical, syntax or spelling errors.Any formal questions or concerns about the content, text or information contained within the body of this dictation should be directly addressed to the provider for clarification. Subjective Patient seen and evaluated at bedside. He admits to occasional episodes of anxiety which drive his breathing. He did wear his BiPAP some at night. He reports extreme dyspnea with any activity. Review of Systems 2 Review of Systems: A complete 10 point review of systems was reviewed with the patient with pertinent positives and negatives as per history of present illness. All else were negative. Physical Exam 2 Physical Exam: VITAL SIGNS - Vital signs and nursing notes were reviewed. GENERAL - 58-year-old male appearing his stated age who is in no acute distress. Communicates well with provider and answers questions appropriately. SKIN - Without rashes or lesions. NOSE - Midline and without cyanosis. MOUTH/OROPHARYNX - Without perioral cyanosis. NECK - Neck with FROM. LUNGS - Chest wall evaluation demonstrates normal chest wall A:P diameter. Auscultation reveals slight wheeze noted. Poor air movement. No rales or rhonchi. CARDIAC - RRR with S1/S2. No murmur, rubs, or gallops appreciated. ABDOMEN - Abdominal inspection demonstrates obese. BS normoactive all four quadrants. No tenderness, palpable masses, or ascites noted. EXTREMITIES - Nail clubbing not present. No peripheral cyanosis. No pretibial edema present. +3/5 radial palpated throughout. PSYCH - A&Ox3 and cooperates fully with examiner. Anxious appearing. Results & Data Results & Data Vital Signs (Past 12 Hours) Vital Signs Temp Pulse Pulse Resp BP Pulse Ox O2 Del Method 12/02/23 06:59 80 20 95 Oxymask 12/02/23 03:21 35.6 C L 87 24 162/101 H 95 Oxymask 12/01/23 23:12 37 C 95 H 20 170/101 H 91 Nasal Cannula 12/01/23 22:12 100 H 22 92 Nasal Cannula 12/01/23 21:58 92 H 12/01/23 20:30 Nasal Cannula, BiPAP 12/01/23 20:15 40 H 96 O2 Flow Rate 12/02/23 06:59 7 12/02/23 03:21 6 12/01/23 23:12 4 12/01/23 22:12 4 12/01/23 21:58 12/01/23 20:30 4 12/01/23 20:15 40 Laboratory Results 12/02/23 04:24 12/02/23 04:24 PG Care Time/CCT Total # of Minutes Spent Total Time Spent with Patient: Total time spent is greater than 50% in coordination of care (as documented) at patient's floor/unit and/or counseling patient: Coding Level of Care Code 69261 SUB INP/OBS CARE 3/50MIN Diagnoses COPD exacerbation J44.1 SOB (shortness of breath) R06.02 RSV (respiratory syncytial virus infection) B33.8 Acute respiratory failure with hypoxia J96.01 Sleep disorder breathing G47.30 Alcohol use disorder F10.90 Tobacco use disorder F17.200
[2023-12-02] MEDS: LORazepam 0.5 MG in SYRINGE 0.25 ML IV STA (08:15)
[2023-12-02] MEDS: GABAPENTIN 600 MG TAB PO SCH (08:34)
[2023-12-02] MEDS: LORazepam 1 MG TAB PO PRN (11:19)
[2023-12-02] MEDS: methylPREDNISolone 40 MG in SYRINGE 0 ML IV SCH ×2 (12:42→19:57)
--- NOTE | 2023-12-02 16:49 | Hospitalist Progress Note ---
Date of Service December 02, 2023 Assessment & Plan (1) Acute respiratory failure with hypoxia: (2) COPD exacerbation: (3) RSV (respiratory syncytial virus infection): (4) Alcohol use disorder: (5) Tobacco use disorder: (6) Hypertension: (7) Sleep apnea: Plan Mr. Jimenez is a 58-year-old male who has significant past medical history of COPD, tobacco dependence, HTN, HLD, chronic diastolic CHF, CAD, hepatic steatosis who presents to ED secondary to worsening shortness of breath over the last few days. He is being managed for the following: #Acute hypoxic respiratory failure in setting of RSV #Acute COPD exacerbation #RSV positive Patient coming in with worsening shortness of breath, increased cough with scant sputum. Admitting CXR with faint bibasilar opacities. Admitting troponin negative. Admitting EKG with sinus tachycardia. CTA chest w/ no PE. Clinically patient does not feel improved, has increased cough, scant sputum, cannot comment on the color of the sputum. He is eating okay and moving bowels okay. Continue with Solu-Medrol and azithromycin 11/28. -Azithro4/5 days -Solumedrol q12 h Due to ongoing subjective shortness of breath, Consulted Pulm. -C/w Pulmicort/proformist/Mucomyst nebs and hypertonic saline neb. Increased oxygen with activity. Encourage incentive spirometer. Continue as needed and scheduled nebs. Dextromethorphan/guaifenesin prn Wean down oxygen as tolerated Encouraged smoking cessation. Follow-up with pulmonology upon discharge. CPAP at night. Resume home lasix #Tobacco abuse: Encourage cessation. Declined nicotine patch #Alcohol abuse Patient admits to drinking 2-4 mixed drinks daily with 1 shot in each drink A WSS protocol, monitor for withdrawal Patient denies prior history of withdrawal, states he has gone 2 to 3 days without drink without having an issue Monitor closely, as needed oral Ativan Daily thiamine and folic acid Gabapentin taper #Anxiety -element of anxiety contributing -ativan prn, hydroxyzine #Obstructive sleep apnea: was scheduled to see sleep medicine on Thursday 11/30, this needs to be rescheduled. He has prior history of obstructive sleep apnea diagnosis, but has never worn mask and is currently undergoing further testing #Chronic diastolic CHF #Hypertension Chronic, stable Continue carvedilol and Lasix -Increase carvedilol Hyperlipidemia: Chronic, stable. Continue statin DVT prophylaxis: SQ Lovenox FULL CODE PCP: Dr. Wayne Dispo: admit to [facility] tele Admission and Anticipated Discharge Date Admission Date: November 29, 2023 Subjective Patient discovered mother with RSV, patient reports notable anxiety over his current situation and his mother on top of it all He states he just feels as if he cannot breathe in or out He denies chest pain, palpitations or other new symptoms, just worry over halt in what his expected "progress" should be Physical Exam Constitutional: WD/WN, vitals as above Respiratory: scattered wheezing appreciate Cardiovascular: RRR, no murmur, no edema Gastrointestinal (Abdomen): normal bowel sounds, soft, nontender, no hepatosplenomegaly Results & Data Results & Data Vital Signs (Past 12 Hours) Vital Signs Temp Pulse Pulse Resp BP Pulse Ox O2 Del Method 12/02/23 15:23 36.7 C 81 18 187/107 H 91 Nasal Cannula 12/02/23 15:20 81 20 90 Oxymask 12/02/23 13:02 Oxymask 12/02/23 11:14 35.9 C L 82 28 H 162/88 H 93 Oxymask 12/02/23 10:42 82 17 98 BiPAP 12/02/23 10:42 82 17 98 12/02/23 08:05 36.5 C 85 22 150/95 H 92 Nasal Cannula 12/02/23 08:00 91 H 12/02/23 06:59 80 20 95 Oxymask O2 Flow Rate FiO2 12/02/23 15:23 4 12/02/23 15:20 4 12/02/23 13:02 3.5 12/02/23 11:14 4 12/02/23 10:42 50 12/02/23 10:42 50 12/02/23 08:05 4 12/02/23 08:00 12/02/23 06:59 7 Laboratory Results Short CBC 12/02/23 Range/Units 04:24 WBC 15.85 H (4.8-10.8) K/ul Hgb 12.7 L (14.0-18.0) g/dl Hct 38.5 L (42.0-52.0) % Plt Count 239 (130-400) K/uL BMP 12/02/23 04:24 Sodium 138 Potassium 4.3 Chloride 104 Carbon Dioxide 27 BUN 32 H Creatinine 1.04 Glucose 149 H Calcium 9.0 Medications Administered Home Medications Medication Instructions Recorded Confirmed Last Taken albuterol sulfate 90 mcg/actuation 2 puff inhalation Q4H PRN 03/09/23 11/29/23 Unknown aerosol inhaler Shortness Of Breath Or Wheezing #8.5 grams aspirin 81 mg tablet,delayed 81 mg PO QAM #30 tabs 03/09/23 11/29/23 06/09/23 release atorvastatin 80 mg tablet 80 mg PO QAM 03/16/23 11/29/23 06/09/23 baclofen 10 mg tablet 10 mg PO TID PRN Muscle Spasm 06/09/23 11/29/23 Unknown fluticasone 500 mcg-salmeterol 50 2 inh inhalation BID 06/09/23 11/29/23 06/09/23 mcg/dose blistr powdr for inhalation (Advair Diskus) gabapentin 300 mg capsule 300 mg PO TID PRN Pain 06/09/23 11/29/23 Unknown ipratropium 0.5 mg-albuterol 3 mg 3 ml inhalation Q6H PRN 06/11/23 11/29/23 Unknown (2.5 mg base)/3 mL nebulization wheezing/severe shortness of soln breath #90 mL furosemide 20 mg tablet 20 mg PO QAM 10/14/23 11/29/23 Unknown potassium chloride 20 mEq 20 meq PO QAM 10/14/23 11/29/23 Unknown tablet,extended release carvedilol 12.5 mg tablet 12.5 mg PO BID 11/29/23 11/29/23 Unknown umeclidinium 62.5 mcg/actuation 1 inh inhalation DAILY 11/29/23 11/29/23 Unknown blister powder for inhalation Active Medications Generic Name Dose Route Start Last Admin Trade Name Freq PRN Reason Stop Dose Admin Acetaminophen 650 mg 11/29/23 12:58 12/02/23 10:19 Acetaminophen 325 Mg Tab PO 12/29/23 12:57 650 mg Q4H PRN Administration Pain or Fever Acetylcysteine 5 ml 11/30/23 10:15 12/02/23 06:57 Acetylcysteine 20% Inhal Soln 4ml Dispensed By Resp. INH 12/30/23 10:14 5 ml Q12R MARANDA Administration Aspirin 81 mg 11/30/23 09:00 12/02/23 08:23 Aspirin 81 Mg Ectab PO 12/30/23 08:59 81 mg QAM MARANDA Administration Atorvastatin Calcium 80 mg 11/30/23 09:00 12/02/23 08:23 Atorvastatin 40 Mg Tab PO 12/30/23 08:59 80 mg QAM MARANDA Administration Azithromycin 500 mg 11/29/23 12:58 12/02/23 08:29 Azithromycin 250 Mg Tab PO 12/03/23 09:01 500 mg QAM MARANDA Administration Benzonatate 100 mg 11/30/23 14:00 12/02/23 15:30 Benzonatate 100 Mg Capsule PO 12/30/23 13:59 100 mg TID MARANDA Administration Budesonide 0.5 mg 11/30/23 10:15 12/02/23 06:57 Budesonide 0.5 Mg/2 Ml Vial (Pulmicort) NEB 12/30/23 10:14 0.5 mg BIDR MARANDA Administration Enoxaparin Sodium 40 mg 11/29/23 21:00 12/01/23 20:28 Enoxaparin Inj 40 Mg/0.4 Ml Syr SQ 12/29/23 20:59 40 mg HS MARANDA Administration Folic Acid 1 mg 11/30/23 09:00 12/02/23 08:25 Folic Acid 1 Mg Tab PO 12/30/23 08:59 1 mg QAM MARANDA Administration Formoterol Fumarate 20 mcg 12/01/23 19:00 12/02/23 06:59 Formoterol 20 Mcg/2 Ml Vial INH 12/31/23 18:59 Not Given BIDR MARANDA Furosemide 20 mg 11/30/23 09:00 11/30/23 08:17 Furosemide 20 Mg Tab PO 12/30/23 08:59 20 mg QAM MARANDA Administration Gabapentin 600 mg 12/02/23 09:00 12/02/23 08:34 Gabapentin 600 Mg Tab PO 12/03/23 01:01 Not Given Q8H MARANDA Guaifenesin/Dextromethorphan 10 ml 11/30/23 10:15 12/02/23 10:32 Guaifenesin/Dextrom Syrup 200mg/20mg 10ml Udc PO 12/05/23 10:14 10 ml Q6H MARANDA Administration Levalbuterol HCl 1.25 mg 12/01/23 00:00 12/02/23 15:17 Levalbuterol 1.25 Mg/3 Ml Neb NEB 12/02/23 19:00 1.25 mg Q4R MARANDA Administration Lorazepam 0.5 mg 12/01/23 01:10 12/02/23 01:56 Lorazepam 0.5 Mg Tab PO 12/31/23 01:09 0.5 mg TID PRN Administration Anxiety Melatonin 9 mg 12/01/23 22:46 12/01/23 23:42 Melatonin 3 Mg Tab PO 12/30/23 22:13 9 mg HS PRN Administration Sleep Potassium Chloride 20 meq 11/30/23 09:00 12/02/23 08:26 Potassium Chloride Crtab 20 Meq Tabcr PO 12/30/23 08:59 20 meq QAM MARANDA Administration Thiamine HCl 100 mg 11/30/23 09:00 12/02/23 08:26 Thiamine Hcl 100 Mg Tab PO 12/30/23 08:59 100 mg QAM MARANDA Administration Umeclidinium [place] 1 puffs 11/30/23 09:00 11/30/23 08:16 Umeclidinium [place] 62.5mcg/Blister 7 Puffs/Inhaler INH 12/30/23 08:59 1 puffs DAILY MARANDA Administration
[2023-12-02] MEDS ORDERED: methylPREDNISolone 40 MG in SYRINGE 0 ML IV SCH (18:00)
[2023-12-02] MEDS: ACETAMINOPHEN 650 MG SUPP PR STA (19:32)
[2023-12-02] MEDS: hydrOXYzine HCl 25 MG TAB PO PRN (19:50)
[2023-12-02] MEDS: hydrALAZINE HCL 20 MG/ML VIAL IV PRN (19:52)
[2023-12-02] MEDS: carvediloL 25 MG TAB PO SCH (19:52)
[2023-12-02] MEDS: SODIUM CHLOR 7% 4 ML NEB NEB SCH (20:09)
[2023-12-02] MEDS: LEVALBUTEROL 1.25 MG/3 ML NEB NEB SCH (20:09)
[2023-12-02] MEDS ORDERED: hydrALAZINE HCL 20 MG/ML VIAL IV PRN (20:50)
[2023-12-03 05:14] LABS: Hematocrit (blood only) 39.4 % (42.0-52.0); Hemoglobin 12.6 g/dl (14.0-18.0); Mean Corpuscular Volume 106.2 fL (80.0-100.0); Mean Platelet Volume 9.7 fL (9.4-12.4); Platelet Count 219 K/uL (130-400); RDW Coefficient of Variation 13.8 % (11.5-14.5); RDW Standard Deviation 54.2 fL (36.4-46.3); Red Blood Count 3.71 M/uL (4.70-6.10); White Blood Count 10.18 K/ul (4.8-10.8)
[2023-12-03 05:34] LABS: BUN Creatinine Ratio 33.7 (10-20); Calcium 9.2 mg/dl (8.6-10.3); Creatinine Clr Calc Pharmacy 114.8 ml/min; Est GFR (African American) 107.7 ml/min; Est GFR (Non-African American) 92.9 ml/min; Magnesium 2.4 mg/dl (1.7-2.4); Phosphorus 4.6 mg/dl (2.5-4.9); Potassium 4.5 mmol/L (3.5-5.1)
--- NOTE | 2023-12-03 06:19 | Electrocardiogram Report ---
Test Reason : Blood Pressure : / mmHG Vent. Rate : 099 BPM Atrial Rate : 099 BPM P-R Int : 134 ms QRS Dur : 120 ms QT Int : 398 ms P-R-T Axes : 058 -31 021 degrees QTc Int : 510 ms Poor data quality, interpretation may be adversely affected Normal sinus rhythm Left axis deviation Right bundle branch block Abnormal ECG When compared with ECG of 29-NOV-2023 09:36, ST no longer depressed in Anterior leads Confirmed by Qasim Olivier ([id number]) on 12/03/2023 6:19:25 AM Referred By: REFERRED SELF Confirmed By:Qasim Olivier
--- NOTE | 2023-12-03 07:37 | Pulmonology Progress Note ---
Date of Service December 03, 2023 Assessment & Plan (1) COPD exacerbation: (2) SOB (shortness of breath): (3) RSV (respiratory syncytial virus infection): (4) Acute respiratory failure with hypoxia: (5) Sleep disorder breathing: (6) Alcohol use disorder: (7) Tobacco use disorder: Plan IMPRESSION: 58-year-old male with a significant past medical history of COPD, tobacco abuse disorder, and alcohol use disorder who was admitted with a COPD exacerbation with acute hypoxic respiratory failure in the setting of RSV infection. RECOMMENDATIONS: 1. COPD with exacerbation - Main symptom is complaint of dyspnea at this time. He is still requiring supplemental oxygen. Still remains dyspneic with any activity. Feels as though he is mobilizing his secretions a bit better. Again, likely driven by his RSV and COPD. He is without bronchospasm on exam again today. Will switch to PO prednisone - patient reports added anxiety after administration of IV steroids as well. CTA w/o findings of PE. Continue with supplemental oxygen and wean down as tolerated. Continue with Budesonide, Perforomist, Xopenex/Atrovent, hypertonic saline, and Mucomyst for now. Encourage flutter valve and incentive spirometry. Would encourage OOB to chair and increased activity as tolerated. Given his protracted shortness of breath which does seem to be a bit out of proportion to his recent imaging, will obtain a CXR today to evaluate for any infiltrative changes. Will consider adding an Echo for the sake of completion in a patient with recent NSTEMI event. 2. Shortness of breath - Multifactorial in the patient with COPD, RSV infection, and hypoxia. Again, would continue with treatment of likely withdrawal symptoms contributing to his anxiety and subsequent SOB. 3. RSV - Continue with symptomatic management as you are. 4. Acute respiratory failure with hypoxia - Again, multifactorial in the patient with COPD and active RSV infection. Would titrate down settings to be greater than 90%. Patient very well may require oxygen therapy at home. 5. Sleep disordered breathing - Patient apparently with prior diagnosis of sleep apnea, however he had been noncompliant with mask. Would reschedule his outpatient polysomnography. He is complaining of waking at night with gasping for breathing. He denies any daytime drowsiness or other concerning symptoms. Has been doing well using NIV overnight. 6. Alcohol use disorder - Patient reportedly drinks between 2 and 4 mixed drinks a day. Agree with [facility] protocol for this patient with aggressive treatment of his s/s. 7. Tobacco use disorder - Patient with an approximate [id number] history of smoking. He smoked 2 packs a day since his teenage years. He states that he was down to approximately half pack a day a few months ago. Patient still has intermittent smoking patterns. Patient would largely benefit from smoking cessation moving forward. 8. Lung Nodule - 6 mm RLL nodule appears stable dating back to imaging on 06/24/2021. No need for continued surveillance of this nodule. Would continue with annual LDCT lung cancer screening exams given his smoking history, age, and risks. Thank you for allowing us to participate in the care of this patient. We will be happy to follow along Admission and Anticipated Discharge Date Admission Date: November 29, 2023 Supervising Physician Co-Signing Physician Notes I saw and evaluated the patient with Edmundo Carson PA-C, and agree with findings and plan as documented in the note. Patient seen and examined at bedside. No acute distress, no adverse events overnight Patient was getting breathing treatments when I was examining him. He stated that he is feeling little bit better compared to yesterday. Still having significant shortness of breath on minimal exertion Has been coughing not bringing up much phlegm. Denies any hemoptysis Appetite is fair. Did use his BiPAP overnight Social history:> [id number] smoking history, currently smoking half a pack a day. Drinks alcohol heavily on a regular basis. 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 No history of lung cancer in the family Constitutional: No acute distress HEENT: EOMI, PERRLA, thick neck Respiratory system: Decreased air entry bilaterally, no wheeze, no rhonchi, positive crackles bilateral lower lobes CVS: S1-S2 positive, no murmurs or gallops Abdomen: Soft, nontender, nondistended, positive bowel sounds x4, obese Extremities: +2 pulses bilaterally radialis/ dorsalis pedis, no cyanosis, no edema Neuro: Awake alert oriented x3 Psych: Normal mood and affect G/U: No [place] CTA chest 12/01/2023 personally reviewed: Centrilobular emphysema appreciated bilaterally Right lower lobe 6 mm subpleural pulmonary nodule Tree-in-bud opacities appreciated bilaterally especially in the left lower lobe No significant mediastinal lymphadenopathy Plan: Continue with budesonide nebulized along with Brovana. Continue with Incruse and nebulized Mucomyst Continue with hypertonic saline nebulized, continue with Mucinex and flutter valve Transition Solu-Medrol to prednisone 40 mg on a daily basis for 3 days followed by 20 mg for 4 days and then stop Continue with BiPAP nightly and as needed shortness of breath Repeat CT chest in 12 months for the right lower lobe pulmonary nodule 2D echo with bubble study to be done today. Please note the above document was generated using voice recognition software. It may contain grammatical, syntax or spelling errors.Any formal questions or concerns about the content, text or information contained within the body of this dictation should be directly addressed to the provider for clarification. Subjective Patient seen and evaluated at bedside. He complains of shortness of breath with any exertion. He is actively receiving a nebulizer. He states that he feels as though he is able to move his secretions somewhat better. Review of Systems 2 Review of Systems: A complete 10 point review of systems was reviewed with the patient with pertinent positives and negatives as per history of present illness. All else were negative. Physical Exam 2 Physical Exam: VITAL SIGNS - Vital signs and nursing notes were reviewed. GENERAL - 58-year-old male appearing his stated age who is in no acute distress. Communicates well with provider and answers questions appropriately. LUNGS - No wheezes appreciated. Poor air entry. No rales. CARDIAC - RRR with S1/S2. No murmur, rubs, or gallops appreciated. PSYCH - A&Ox3 and cooperates fully with examiner. Anxious appearing. Results & Data Results & Data Vital Signs (Past 12 Hours) Vital Signs Temp Pulse Pulse Resp BP Pulse Ox O2 Del Method 12/03/23 07:15 61 12/03/23 03:53 37 C 63 18 155/94 H 93 Room Air 12/03/23 00:22 18 98 Nasal Cannula 12/02/23 23:17 36.9 C 64 18 166/100 H 94 Nasal Cannula 12/02/23 23:06 59 L 16 95 12/02/23 21:50 68 12/02/23 20:30 78 178/105 H 12/02/23 20:09 18 92 Nasal Cannula 12/02/23 19:30 Nasal Cannula O2 Flow Rate FiO2 12/03/23 07:15 12/03/23 03:53 12/03/23 00:22 4 12/02/23 23:17 4 12/02/23 23:06 40 12/02/23 21:50 12/02/23 20:30 12/02/23 20:09 4 12/02/23 19:30 4 Laboratory Results 12/03/23 04:50 12/03/23 04:50 PG Care Time/CCT Total # of Minutes Spent Total Time Spent with Patient: Total time spent is greater than 50% in coordination of care (as documented) at patient's floor/unit and/or counseling patient: Coding Level of Care Code 69691 SUB INP/OBS CARE 2/35MIN Diagnoses COPD exacerbation J44.1 SOB (shortness of breath) R06.02 RSV (respiratory syncytial virus infection) B33.8 Acute respiratory failure with hypoxia J96.01 Sleep disorder breathing G47.30 Alcohol use disorder F10.90 Tobacco use disorder F17.200
--- NOTE | 2023-12-03 09:05 | XRay Report ---
XR chest 1V portable HISTORY: 58 years-old Male f/u acute shortness of breath COMPARISON: 12/01/2023 TECHNIQUE: AP view of the chest FINDINGS: Cardiomediastinal and hilar silhouettes are within normal limits. Possible pulmonary vascular congest ion. Mild interstitial coarsening again noted. No pneumothorax, pleural effusion or airspace consolid ation. Bones appear grossly intact. IMPRESSION: Persistent subtle interstitial opacities, likely infectious or inflammatory. There may al so be a component of pulmonary vascular congestion. ACT 112: Negative or not required by law. The above report was generated using voice recognition software. It may contain grammatical, syntax o r spelling errors. Electronically signed by: Trey Madison M.D. 12/03/2023 9:03 AM
[2023-12-03] MEDS: PERFLUTREN LIPID MICROSPHERE (DEFINITY) IV ONE (09:28)
[2023-12-03] MEDS: predniSONE 20 MG TAB PO SCH (10:20)
[2023-12-03] MEDS: GABAPENTIN 600 MG TAB PO SCH (12:47)
--- NOTE | 2023-12-03 13:30 | Hospitalist Progress Note ---
Date of Service December 03, 2023 Assessment & Plan (1) Acute respiratory failure with hypoxia: (2) COPD exacerbation: (3) RSV (respiratory syncytial virus infection): (4) Alcohol use disorder: (5) Tobacco use disorder: (6) Hypertension: (7) Sleep apnea: Plan Mr. Jimenez is a 58-year-old male who has significant past medical history of COPD, tobacco dependence, HTN, HLD, chronic diastolic CHF, CAD, hepatic steatosis who presents to ED secondary to worsening shortness of breath over the last few days. He is being managed for the following: #Acute hypoxic respiratory failure in setting of RSV #Acute COPD exacerbation #RSV positive Patient coming in with worsening shortness of breath, increased cough with scant sputum. Admitting CXR with faint bibasilar opacities. Admitting troponin negative. Admitting EKG with sinus tachycardia. CTA chest w/ no PE. Clinically patient does not feel improved, has increased cough, scant sputum, cannot comment on the color of the sputum. He is eating okay and moving bowels okay. Continue with Solu-Medrol and azithromycin 11/28. -Azithro4/5 days -Solumedrol q12 h--now to prednisone 40mg daily Due to ongoing subjective shortness of breath, Consulted Pulm. -C/w Pulmicort/proformist/Mucomyst nebs and hypertonic saline neb. -Reduced neb frequency given anxiety exacerbated Increased oxygen with activity. Encourage incentive spirometer. Continue as needed and scheduled nebs. Dextromethorphan/guaifenesin prn Wean down oxygen as tolerated Encouraged smoking cessation. Follow-up with pulmonology upon discharge. CPAP at night. Continue home lasix #Tobacco abuse: Encourage cessation. Declined nicotine patch #Alcohol abuse Patient admits to drinking 2-4 mixed drinks daily with 1 shot in each drink A WSS protocol, monitor for withdrawal Patient denies prior history of withdrawal, states he has gone 2 to 3 days without drink without having an issue Monitor closely, as needed oral Ativan Daily thiamine and folic acid Gabapentin taper #Anxiety -element of anxiety contributing -ativan prn, hydroxyzine #Obstructive sleep apnea: was scheduled to see sleep medicine on Thursday 11/30, this needs to be rescheduled. He has prior history of obstructive sleep apnea diagnosis, but has never worn mask and is currently undergoing further testing #Chronic diastolic CHF #Hypertension Chronic, stable Continue carvedilol and Lasix -Increase carvedilol 25mg BID -Add amloidipine 5mg daily Hyperlipidemia: Chronic, stable. Continue statin DVT prophylaxis: SQ Lovenox FULL CODE PCP: Dr. Wayne Dispo: admit to [facility] tele Admission and Anticipated Discharge Date Admission Date: November 29, 2023 Subjective No acute events overnight Reports feeling subjectively improved States breathing is less laborious and his anxiety is better controlled at this time Denies nausea, vomiting, worsening of cough Reports some DUNBAR but overall much improved in comparison to prior Physical Exam Constitutional: WD/WN, vitals as above Respiratory: few wheezes noted in left lung beck, overall improved Cardiovascular: RRR, no murmur, no edema Results & Data Results & Data Vital Signs (Past 12 Hours) Vital Signs Temp Pulse Pulse Resp BP Pulse Ox O2 Del Method 12/03/23 11:17 36.6 C 74 18 147/90 H 94 Nasal Cannula 12/03/23 08:18 36.4 C L 74 20 178/107 H 95 Nasal Cannula 12/03/23 08:17 20 96 Nasal Cannula 12/03/23 07:15 61 12/03/23 03:53 37 C 63 18 155/94 H 93 Room Air O2 Flow Rate 12/03/23 11:17 2 12/03/23 08:18 2 12/03/23 08:17 4 12/03/23 07:15 12/03/23 03:53 Laboratory Results Short CBC 12/03/23 Range/Units 04:50 WBC 10.18 (4.8-10.8) K/ul Hgb 12.6 L (14.0-18.0) g/dl Hct 39.4 L (42.0-52.0) % Plt Count 219 (130-400) K/uL BMP 12/03/23 04:50 Sodium 138 Potassium 4.5 Chloride 105 Carbon Dioxide 28 BUN 30 H Creatinine 0.89 Glucose 143 H Calcium 9.2 Medications Administered Home Medications Medication Instructions Recorded Confirmed Last Taken albuterol sulfate 90 mcg/actuation 2 puff inhalation Q4H PRN 03/09/23 11/29/23 Unknown aerosol inhaler Shortness Of Breath Or Wheezing #8.5 grams aspirin 81 mg tablet,delayed 81 mg PO QAM #30 tabs 03/09/23 11/29/23 06/09/23 release atorvastatin 80 mg tablet 80 mg PO QAM 03/16/23 11/29/23 06/09/23 baclofen 10 mg tablet 10 mg PO TID PRN Muscle Spasm 06/09/23 11/29/23 Unknown fluticasone 500 mcg-salmeterol 50 2 inh inhalation BID 06/09/23 11/29/23 06/09/23 mcg/dose blistr powdr for inhalation (Advair Diskus) gabapentin 300 mg capsule 300 mg PO TID PRN Pain 06/09/23 11/29/23 Unknown ipratropium 0.5 mg-albuterol 3 mg 3 ml inhalation Q6H PRN 06/11/23 11/29/23 Unknown (2.5 mg base)/3 mL nebulization wheezing/severe shortness of soln breath #90 mL furosemide 20 mg tablet 20 mg PO QAM 10/14/23 11/29/23 Unknown potassium chloride 20 mEq 20 meq PO QAM 10/14/23 11/29/23 Unknown tablet,extended release carvedilol 12.5 mg tablet 12.5 mg PO BID 11/29/23 11/29/23 Unknown umeclidinium 62.5 mcg/actuation 1 inh inhalation DAILY 11/29/23 11/29/23 Unknown blister powder for inhalation Active Medications Generic Name Dose Route Start Last Admin Trade Name Freq PRN Reason Stop Dose Admin Acetaminophen 650 mg 11/29/23 12:58 12/02/23 19:50 Acetaminophen 325 Mg Tab PO 12/29/23 12:57 650 mg Q4H PRN Administration Pain or Fever Acetylcysteine 5 ml 11/30/23 10:15 12/03/23 07:08 Acetylcysteine 20% Inhal Soln 4ml Dispensed By Resp. INH 12/30/23 10:14 5 ml Q12R MARANDA Administration Aspirin 81 mg 11/30/23 09:00 12/03/23 08:28 Aspirin 81 Mg Ectab PO 12/30/23 08:59 81 mg QAM MARANDA Administration Atorvastatin Calcium 80 mg 11/30/23 09:00 12/03/23 08:28 Atorvastatin 40 Mg Tab PO 12/30/23 08:59 80 mg QAM MARANDA Administration Benzonatate 100 mg 11/30/23 14:00 12/03/23 08:28 Benzonatate 100 Mg Capsule PO 12/30/23 13:59 100 mg TID MARANDA Administration Budesonide 0.5 mg 11/30/23 10:15 12/03/23 07:08 Budesonide 0.5 Mg/2 Ml Vial (Pulmicort) NEB 12/30/23 10:14 0.5 mg BIDR MARANDA Administration Carvedilol 25 mg 12/02/23 21:00 12/03/23 08:28 Carvedilol 25 Mg Tab PO 01/01/24 20:59 25 mg BID MARANDA Administration Enoxaparin Sodium 40 mg 11/29/23 21:00 12/02/23 19:55 Enoxaparin Inj 40 Mg/0.4 Ml Syr SQ 12/29/23 20:59 40 mg HS MARANDA Administration Folic Acid 1 mg 11/30/23 09:00 12/03/23 08:28 Folic Acid 1 Mg Tab PO 12/30/23 08:59 1 mg QAM MARANDA Administration Formoterol Fumarate 20 mcg 12/01/23 19:00 12/03/23 07:08 Formoterol 20 Mcg/2 Ml Vial INH 12/31/23 18:59 20 mcg BIDR MARANDA Administration Furosemide 20 mg 11/30/23 09:00 12/03/23 08:28 Furosemide 20 Mg Tab PO 12/30/23 08:59 20 mg QAM MARANDA Administration Gabapentin 600 mg 12/03/23 13:00 12/03/23 12:47 Gabapentin 600 Mg Tab PO 12/04/23 01:01 600 mg Q12H MARANDA Administration Guaifenesin/Dextromethorphan 10 ml 11/30/23 10:15 12/03/23 11:33 Guaifenesin/Dextrom Syrup 200mg/20mg 10ml Udc PO 12/05/23 10:14 10 ml Q6H MARANDA Administration Hydroxyzine HCl 50 mg 12/02/23 16:52 12/02/23 19:50 Hydroxyzine Hcl 25 Mg Tab PO 12/31/23 15:44 50 mg Q6H PRN Administration Anxiety/Agitation Levalbuterol HCl 1.25 mg 12/02/23 19:00 12/03/23 07:09 Levalbuterol 1.25 Mg/3 Ml Neb NEB 01/01/24 18:59 Not Given Q6R MARANDA Lorazepam 0.5 mg 12/01/23 01:10 12/03/23 12:52 Lorazepam 0.5 Mg Tab PO 12/31/23 01:09 0.5 mg TID PRN Administration Anxiety Melatonin 9 mg 12/01/23 22:46 12/02/23 22:45 Melatonin 3 Mg Tab PO 12/30/23 22:13 9 mg HS PRN Administration Sleep Potassium Chloride 20 meq 11/30/23 09:00 12/03/23 08:28 Potassium Chloride Crtab 20 Meq Tabcr PO 12/30/23 08:59 20 meq QAM MARANDA Administration Prednisone 40 mg 12/03/23 09:00 12/03/23 10:20 Prednisone 20 Mg Tab PO 01/02/24 08:59 40 mg DAILY MARANDA Administration Sodium Chloride 4 ml 12/02/23 19:00 12/03/23 07:10 Sodium Chlor 7% 4 Ml Neb NEB 01/01/24 18:59 4 ml BIDR MARANDA Administration Thiamine HCl 100 mg 11/30/23 09:00 12/03/23 08:29 Thiamine Hcl 100 Mg Tab PO 12/30/23 08:59 100 mg QAM MARANDA Administration Umeclidinium [place] 1 puffs 11/30/23 09:00 12/03/23 10:20 Umeclidinium [place] 62.5mcg/Blister 7 Puffs/Inhaler INH 12/30/23 08:59 1 puffs DAILY MARANDA Administration
[2023-12-03] MEDS: amLODIPine BESYLATE 5 MG TAB PO ONE (15:31)
[2023-12-03] MEDS: GABAPENTIN 300 MG CAP PO PRN (22:20)
[2023-12-04 06:32] LABS: Hematocrit (blood only) 40.2 % (42.0-52.0); Hemoglobin 12.9 g/dl (14.0-18.0); Mean Corpuscular Hemoglobin 34.4 pg (25.0-34.0); Mean Corpuscular Hgb Conc 32.1 g/dL (32.0-36.0); Mean Corpuscular Volume 107.2 fL (80.0-100.0); Mean Platelet Volume 9.7 fL (9.4-12.4); Platelet Count 225 K/uL (130-400); RDW Coefficient of Variation 13.4 % (11.5-14.5); RDW Standard Deviation 53.7 fL (36.4-46.3); Red Blood Count 3.75 M/uL (4.70-6.10); White Blood Count 10.71 K/ul (4.8-10.8)
[2023-12-04 06:38] LABS: BUN Creatinine Ratio 31.6 (10-20); Creatinine Clr Calc Pharmacy 102.9 ml/min; Est GFR (African American) 96.7 ml/min; Est GFR (Non-African American) 83.5 ml/min; Magnesium 2.4 mg/dl (1.7-2.4); Potassium 4.2 mmol/L (3.5-5.1)
[2023-12-04 08:38] LABS: Folate (Folic Acid),Ser orPlas 13.08 ng/ml (>5.38)
--- NOTE | 2023-12-04 08:50 | Pulmonology Progress Note ---
Date of Service December 04, 2023 Assessment & Plan (1) COPD exacerbation: (2) SOB (shortness of breath): (3) RSV (respiratory syncytial virus infection): (4) Acute respiratory failure with hypoxia: (5) Sleep disorder breathing: (6) Alcohol use disorder: (7) Tobacco use disorder: Plan IMPRESSION: 58-year-old male with a significant past medical history of COPD, tobacco abuse disorder, and alcohol use disorder who was admitted with a COPD exacerbation with acute hypoxic respiratory failure in the setting of RSV infection. RECOMMENDATIONS: 1. COPD with exacerbation - Main symptom is complaint of dyspnea at this time. He is down to 2L NC at this time. Still remains dyspneic with any activity. Feels as though he is mobilizing his secretions a bit better. Again, likely driven by his RSV and COPD. Again, he is without bronchospasm on exam again today. Finish PO prednisone taper. CTA w/o findings of PE. Echo w/o concerning findings or shunting. CXR with mild congestion. Consideration for extra dose of Lasix. BNP/Trop wnl. Continue with supplemental oxygen and wean down as tolerated. Continue with Budesonide, Perforomist, Xopenex/Atrovent, hypertonic saline, and Mucomyst for now. Encourage flutter valve and incentive spirometry. Would encourage OOB to chair and increased activity as tolerated. Discussed mobilization and at least getting out of bed and into a bedside chair. 2. Shortness of breath - Multifactorial in the patient with COPD, RSV infection, and hypoxia. Again, would continue with treatment of likely withdrawal symptoms contributing to his anxiety and subsequent SOB. 3. RSV - Continue with symptomatic management as you are. 4. Acute respiratory failure with hypoxia - Again, multifactorial in the patient with COPD and active RSV infection. Would titrate down settings to be greater than 90%. Patient very well may require oxygen therapy at home. 5. Sleep disordered breathing - Patient apparently with prior diagnosis of sleep apnea, however he had been noncompliant with mask. Would reschedule his outpatient polysomnography. He is complaining of waking at night with gasping for breathing. He denies any daytime drowsiness or other concerning symptoms. Has been doing well using NIV overnight. 6. Alcohol use disorder - Patient reportedly drinks between 2 and 4 mixed drinks a day. Agree with [facility] protocol for this patient with aggressive treatment of his s/s. 7. Tobacco use disorder - Patient with an approximate [id number] history of smoking. He smoked 2 packs a day since his teenage years. He states that he was down to approximately half pack a day a few months ago. Patient still has intermittent smoking patterns. Patient would largely benefit from smoking cessation moving forward. 8. Lung Nodule - 6 mm RLL nodule appears stable dating back to imaging on 06/24/2021. No need for continued surveillance of this nodule. Would continue with annual LDCT lung cancer screening exams given his smoking history, age, and risks. Thank you for allowing us to participate in the care of this patient. We will be happy to follow along Admission and Anticipated Discharge Date Admission Date: November 29, 2023 Supervising Physician Co-Signing Physician Notes I saw and evaluated the patient with Edmundo Carson PA-C, and agree with findings and plan as documented in the note. Patient seen and examined at bedside. No acute distress, notable symptoms overnight He was saturating 95% on 2 L nasal cannula but I went down to 1 L Clinically he looked more comfortable and calm compared to Yesterday. Fair appetite, no nausea vomiting Does complain of cough which is mostly dry. Social history:> [id number] smoking history, currently smoking half a pack a day. Drinks alcohol heavily on a regular basis. 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 No history of lung cancer in the family Constitutional: No acute distress HEENT: EOMI, PERRLA, thick neck Respiratory system: Decreased air entry bilaterally, no wheeze, no rhonchi, positive crackles bilateral lower lobes CVS: S1-S2 positive, no murmurs or gallops Abdomen: Soft, nontender, nondistended, positive bowel sounds x4, obese Extremities: +2 pulses bilaterally radialis/ dorsalis pedis, no cyanosis, no edema Neuro: Awake alert oriented x3 Psych: Normal mood and affect G/U: No [place] CTA chest 12/01/2023 personally reviewed: Centrilobular emphysema appreciated bilaterally Right lower lobe 6 mm subpleural pulmonary nodule Tree-in-bud opacities appreciated bilaterally especially in the left lower lobe No significant mediastinal lymphadenopathy 2D echo 12/03/2023: EF 65 to 70%, grade 1 diastolic dysfunction, RV normal in size and function, no PFO or intra-atrial shunt. Plan: Continue with budesonide nebulized along with Brovana. Continue with Incruse and nebulized Mucomyst Continue with hypertonic saline nebulized, continue with Mucinex and flutter valve Prednisone 40 mg on a daily basis for 3 days followed by 20 mg for 4 days and then stop Continue with BiPAP nightly and as needed shortness of breath Repeat CT chest in 12 months for the right lower lobe pulmonary nodule 2D echo with bubble study to be done today. Please note the above document was generated using voice recognition software. It may contain grammatical, syntax or spelling errors.Any formal questions or concerns about the content, text or information contained within the body of this dictation should be directly addressed to the provider for clarification. Subjective Patient seen and evaluated at bedside. He reports that he is breathing somewhat better, but still complains of significant dyspnea with exertion. He reports that he is mainly been isolated to going to and from the restroom. He has not been out of bed to a chair. He is down to 2 L nasal cannula at this time. Review of Systems 2 Review of Systems: A complete 10 point review of systems was reviewed with the patient with pertinent positives and negatives as per history of present illness. All else were negative. Physical Exam 2 Physical Exam: VITAL SIGNS - Vital signs and nursing notes were reviewed. GENERAL - 58-year-old male appearing his stated age who is in no acute distress. Communicates well with provider and answers questions appropriately. LUNGS - No wheezes appreciated. Poor air entry. No rales. CARDIAC - RRR with S1/S2. No murmur, rubs, or gallops appreciated. PSYCH - A&Ox3 and cooperates fully with examiner. Anxious appearing. Results & Data Results & Data Vital Signs (Past 12 Hours) Vital Signs Temp Pulse Pulse Resp BP Pulse Ox O2 Del Method 12/04/23 07:47 36.4 C L 70 18 184/112 H 98 Nasal Cannula 12/04/23 07:20 61 12/04/23 07:02 80 20 96 Nasal Cannula 12/04/23 03:13 36.4 C L 69 18 148/87 H 94 Nasal Cannula 12/03/23 22:50 36.4 C L 75 18 155/94 H 94 Nasal Cannula 12/03/23 22:15 69 12/03/23 21:34 Nasal Cannula 12/03/23 21:21 84 19 99 O2 Flow Rate FiO2 12/04/23 07:47 2 12/04/23 07:20 12/04/23 07:02 2 12/04/23 03:13 2 12/03/23 22:50 2 12/03/23 22:15 12/03/23 21:34 2 12/03/23 21:21 40 Laboratory Results 12/04/23 05:29 12/04/23 05:29 PG Care Time/CCT Total # of Minutes Spent Total Time Spent with Patient: Total time spent is greater than 50% in coordination of care (as documented) at patient's floor/unit and/or counseling patient: Coding Level of Care Code 47507 SUB INP/OBS CARE 2/35MIN Diagnoses COPD exacerbation J44.1 SOB (shortness of breath) R06.02 RSV (respiratory syncytial virus infection) B33.8 Acute respiratory failure with hypoxia J96.01 Sleep disorder breathing G47.30 Alcohol use disorder F10.90 Tobacco use disorder F17.200
[2023-12-04] MEDS ORDERED: amLODIPine BESYLATE 5 MG TAB PO SCH (09:00)
--- NOTE | 2023-12-04 13:01 | Hospitalist Progress Note ---
Date of Service December 04, 2023 Assessment & Plan (1) Acute respiratory failure with hypoxia: (2) COPD exacerbation: (3) RSV (respiratory syncytial virus infection): (4) Alcohol use disorder: (5) Tobacco use disorder: (6) Hypertension: (7) Sleep apnea: Plan Mr. Jimenez is a 58-year-old male who has significant past medical history of COPD, tobacco dependence, HTN, HLD, chronic diastolic CHF, CAD, hepatic steatosis who presents to ED secondary to worsening shortness of breath over the last few days. He is being managed for the following: #Acute hypoxic respiratory failure in setting of RSV #Acute COPD exacerbation #RSV positive Patient coming in with worsening shortness of breath, increased cough with scant sputum. Admitting CXR with faint bibasilar opacities. Admitting troponin negative. Admitting EKG with sinus tachycardia. CTA chest w/ no PE. Clinically patient does not feel improved, has increased cough, scant sputum, cannot comment on the color of the sputum. He is eating okay and moving bowels okay. Continue with Solu-Medrol and azithromycin 11/28. -Azithro4/5 days -Completed IV solumedrol course, now plan for prednisone 40mg daily until 12/04, the 20mg x 3 days Due to ongoing subjective shortness of breath, Consulted Pulm. -C/w Pulmicort/proformist/Mucomyst nebs and hypertonic saline neb. -Reduced neb frequency given anxiety exacerbated Increased oxygen with activity. Encourage incentive spirometer. Continue as needed and scheduled nebs. Dextromethorphan/guaifenesin prn Wean down oxygen as tolerated Encouraged smoking cessation. Follow-up with pulmonology upon discharge. CPAP at night. Continue home lasix 2 step tomorrow #Pulmonary nodule Repeat CT in 1 year for RLL pulm nodule #Tobacco abuse: Encourage cessation. Declined nicotine patch #Alcohol abuse Patient admits to drinking 2-4 mixed drinks daily with 1 shot in each drink A WSS protocol, monitor for withdrawal Patient denies prior history of withdrawal, states he has gone 2 to 3 days without drink without having an issue Monitor closely, as needed oral Ativan Daily thiamine and folic acid Gabapentin taper #Anxiety -element of anxiety contributing -ativan prn, hydroxyzine #Obstructive sleep apnea: was scheduled to see sleep medicine on Thursday 11/30, this needs to be rescheduled. He has prior history of obstructive sleep apnea diagnosis, but has never worn mask and is currently undergoing further testing #Chronic diastolic CHF #Hypertension Chronic, stable Continue carvedilol and Lasix -Increase carvedilol 25mg BID -Add amloidipine 5mg daily Hyperlipidemia: Chronic, stable. Continue statin DVT prophylaxis: SQ Lovenox FULL CODE PCP: Dr. Wayne Dispo: admit to med tele Admission and Anticipated Discharge Date Admission Date: November 29, 2023 Subjective No acute events overnight States he feels better overall, reports less anxiety knowing that mother is improving given her recent diagnosis of RSV Denies chest pain, palpitations or other acute concerns. States he does not like the nebulizer treatments, but understands the necessity. States he plans to sit in the bedside chair more and try to be more active Physical Exam Constitutional: WD/WN, vitals as above Respiratory: limited secondary patient effort Cardiovascular: RRR, no murmur, no edema Gastrointestinal (Abdomen): normal bowel sounds, soft, nontender, no hepatosplenomegaly Results & Data Results & Data Vital Signs (Past 12 Hours) Vital Signs Temp Pulse Pulse Resp BP Pulse Ox O2 Del Method 12/04/23 11:55 36.4 C L 73 18 127/78 93 Room Air 12/04/23 11:28 36.3 C L 79 24 134/89 93 Nasal Cannula 12/04/23 09:55 Nasal Cannula 12/04/23 07:47 36.4 C L 70 18 184/112 H 98 Nasal Cannula 12/04/23 07:20 61 12/04/23 07:02 80 20 96 Nasal Cannula 12/04/23 03:13 36.4 C L 69 18 148/87 H 94 Nasal Cannula O2 Flow Rate 12/04/23 11:55 12/04/23 11:28 1 12/04/23 09:55 2 12/04/23 07:47 2 12/04/23 07:20 12/04/23 07:02 2 12/04/23 03:13 2 Laboratory Results Short CBC 12/04/23 Range/Units 05:29 WBC 10.71 (4.8-10.8) K/ul Hgb 12.9 L (14.0-18.0) g/dl Hct 40.2 L (42.0-52.0) % Plt Count 225 (130-400) K/uL BMP 12/04/23 05:29 Sodium 137 Potassium 4.2 Chloride 103 Carbon Dioxide 30 BUN 31 H Creatinine 0.98 Glucose 91 Calcium 9.0 Medications Administered Home Medications Medication Instructions Recorded Confirmed Last Taken albuterol sulfate 90 mcg/actuation 2 puff inhalation Q4H PRN 03/09/23 11/29/23 Unknown aerosol inhaler Shortness Of Breath Or Wheezing #8.5 grams aspirin 81 mg tablet,delayed 81 mg PO QAM #30 tabs 03/09/23 11/29/23 06/09/23 release atorvastatin 80 mg tablet 80 mg PO QAM 03/16/23 11/29/23 06/09/23 baclofen 10 mg tablet 10 mg PO TID PRN Muscle Spasm 06/09/23 11/29/23 Unknown fluticasone 500 mcg-salmeterol 50 2 inh inhalation BID 06/09/23 11/29/23 mcg/dose blistr powdr for inhalation (Advair Diskus) gabapentin 300 mg capsule 300 mg PO TID PRN Pain 06/09/23 11/29/23 Unknown ipratropium 0.5 mg-albuterol 3 mg 3 ml inhalation Q6H PRN 06/11/23 11/29/23 Unknown (2.5 mg base)/3 mL nebulization wheezing/severe shortness of soln breath #90 mL furosemide 20 mg tablet 20 mg PO QAM 10/14/23 11/29/23 Unknown potassium chloride 20 mEq 20 meq PO QAM 10/14/23 11/29/23 Unknown tablet,extended release carvedilol 12.5 mg tablet 12.5 mg PO BID 11/29/23 11/29/23 Unknown umeclidinium 62.5 mcg/actuation 1 inh inhalation DAILY 11/29/23 11/29/23 Unknown blister powder for inhalation Active Medications Generic Name Dose Route Start Last Admin Trade Name Freq PRN Reason Stop Dose Admin Acetaminophen 650 mg 11/29/23 12:58 12/02/23 19:50 Acetaminophen 325 Mg Tab PO 12/29/23 12:57 650 mg Q4H PRN Administration Pain or Fever Acetylcysteine 5 ml 11/30/23 10:15 12/04/23 07:02 Acetylcysteine 20% Inhal Soln 4ml Dispensed By Resp. INH 12/30/23 10:14 5 ml Q12R MARANDA Administration Aspirin 81 mg 11/30/23 09:00 12/04/23 08:31 Aspirin 81 Mg Ectab PO 12/30/23 08:59 81 mg QAM MARANDA Administration Atorvastatin Calcium 80 mg 11/30/23 09:00 12/04/23 08:36 Atorvastatin 40 Mg Tab PO 12/30/23 08:59 80 mg QAM MARANDA Administration Benzonatate 100 mg 11/30/23 14:00 12/04/23 08:32 Benzonatate 100 Mg Capsule PO 12/30/23 13:59 100 mg TID MARANDA Administration Budesonide 0.5 mg 11/30/23 10:15 12/04/23 07:02 Budesonide 0.5 Mg/2 Ml Vial (Pulmicort) NEB 12/30/23 10:14 0.5 mg BIDR MARANDA Administration Carvedilol 25 mg 12/02/23 21:00 12/04/23 08:32 Carvedilol 25 Mg Tab PO 01/01/24 20:59 25 mg BID MARANDA Administration Enoxaparin Sodium 40 mg 11/29/23 21:00 12/03/23 21:03 Enoxaparin Inj 40 Mg/0.4 Ml Syr SQ 12/29/23 20:59 40 mg HS MARANDA Administration Folic Acid 1 mg 11/30/23 09:00 12/04/23 08:32 Folic Acid 1 Mg Tab PO 12/30/23 08:59 1 mg QAM MARANDA Administration Formoterol Fumarate 20 mcg 12/01/23 19:00 12/04/23 07:02 Formoterol 20 Mcg/2 Ml Vial INH 12/31/23 18:59 20 mcg BIDR MARANDA Administration Furosemide 20 mg 11/30/23 09:00 12/04/23 08:31 Furosemide 20 Mg Tab PO 12/30/23 08:59 20 mg QAM MARANDA Administration Gabapentin 300 mg 11/29/23 12:58 12/03/23 22:20 Gabapentin 300 Mg Cap PO 12/29/23 12:57 300 mg TID PRN Administration Pain Guaifenesin/Dextromethorphan 10 ml 11/30/23 10:15 12/04/23 08:31 Guaifenesin/Dextrom Syrup 200mg/20mg 10ml Udc PO 12/05/23 10:14 10 ml Q6H MARANDA Administration Hydroxyzine HCl 50 mg 12/02/23 16:52 12/02/23 19:50 Hydroxyzine Hcl 25 Mg Tab PO 12/31/23 15:44 50 mg Q6H PRN Administration Anxiety/Agitation Levalbuterol HCl 1.25 mg 12/02/23 19:00 12/04/23 07:02 Levalbuterol 1.25 Mg/3 Ml Neb NEB 01/01/24 18:59 1.25 mg Q6R MARANDA Administration Lorazepam 0.5 mg 12/01/23 01:10 12/04/23 11:24 Lorazepam 0.5 Mg Tab PO 12/31/23 01:09 0.5 mg TID PRN Administration Anxiety Melatonin 9 mg 12/01/23 22:46 12/02/23 22:45 Melatonin 3 Mg Tab PO 12/30/23 22:13 9 mg HS PRN Administration Sleep Potassium Chloride 20 meq 11/30/23 09:00 12/04/23 08:39 Potassium Chloride Crtab 20 Meq Tabcr PO 12/30/23 08:59 20 meq QAM MARANDA Administration Prednisone 40 mg 12/03/23 09:00 12/04/23 08:30 Prednisone 20 Mg Tab PO 01/02/24 08:59 40 mg DAILY MARANDA Administration Sodium Chloride 4 ml 12/02/23 19:00 12/04/23 07:02 Sodium Chlor 7% 4 Ml Neb NEB 01/01/24 18:59 4 ml BIDR MARANDA Administration Thiamine HCl 100 mg 11/30/23 09:00 12/04/23 08:31 Thiamine Hcl 100 Mg Tab PO 12/30/23 08:59 100 mg QAM MARANDA Administration Umeclidinium [place] 1 puffs 11/30/23 09:00 12/04/23 08:33 Umeclidinium [place] 62.5mcg/Blister 7 Puffs/Inhaler INH 12/30/23 08:59 1 puffs DAILY MARANDA Administration
[2023-12-04] MEDS: GABAPENTIN 600 MG TAB PO SCH (21:16)
--- NOTE | 2023-12-05 07:22 | Pulmonology Progress Note ---
Date of Service December 05, 2023 Assessment & Plan (1) COPD exacerbation: (2) SOB (shortness of breath): (3) RSV (respiratory syncytial virus infection): (4) Acute respiratory failure with hypoxia: (5) Sleep disorder breathing: (6) Alcohol use disorder: (7) Tobacco use disorder: Plan IMPRESSION: 58-year-old male with a significant past medical history of COPD, tobacco abuse disorder, and alcohol use disorder who was admitted with a COPD exacerbation with acute hypoxic respiratory failure in the setting of RSV infection. Social history:> [id number] smoking history, currently smoking half a pack a day. Drinks alcohol heavily on a regular basis. 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 -- Acute hypoxic respiratory failure Secondary to COPD with exacerbation likely from RSV infection No pulmonary emboli on CTA 2D echo does not show PFO -- Lung Nodule - 6 mm RLL nodule appears stable dating back to imaging on 06/24/2021. Continue with annual LDCT lung cancer screening exams given his smoking history, age, and risks. -- Sleep disordered breathing - Recommend outpatient polysomnography BiPAP nightly and as needed shortness of breath -- Alcohol use disorder - Patient reportedly drinks between 2 and 4 mixed drinks a day. Agree with [facility] protocol for this patient with aggressive treatment of his s/s. -- Tobacco use disorder - > [id number] smoking history, currently smoking half a pack a day. Importance of quitting explained to the patient in depth Plan: Continue with budesonide nebulized along with Brovana. Continue with Incruse and nebulized Mucomyst Continue with hypertonic saline nebulized, continue with Mucinex and flutter valve On discharge recommend Trelegy inhaler or BrezTri inhaler on a regular basis, nebulized hypertonic saline with Mucinex and flutter valve will also be beneficial Prednisone 40 mg on a daily basis for 1 days followed by 20 mg for 4 days and then stop Continue with BiPAP nightly and as needed shortness of breath Repeat CT chest in 12 months for the right lower lobe pulmonary nodule Patient will benefit from outpatient pulmonary follow-up with PFTs Recommend to check for oxygen on exertion prior to discharge Case was discussed with RN and primary team No further recommendation from pulmonary perspective, will sign off Please call directly with any questions Please note the above document was generated using voice recognition software. It may contain grammatical, syntax or spelling errors.Any formal questions or concerns about the content, text or information contained within the body of this dictation should be directly addressed to the provider for clarification. Admission and Anticipated Discharge Date Admission Date: November 29, 2023 Supervising Physician Co-Signing Physician Notes I saw and evaluated the patient with Edmundo Carson PA-C, and agree with findings and plan as documented in the note. Patient seen and examined at bedside. No acute distress, notable symptoms overnight He was saturating 95% on 2 L nasal cannula but I went down to 1 L Clinically he looked more comfortable and calm compared to Yesterday. Fair appetite, no nausea vomiting Does complain of cough which is mostly dry. Subjective Patient seen and examined at bedside. No acute distress, notable since overnight He did use his BiPAP overnight He was saturating 94-95% on 1 L nasal cannula. Overall he says he is feeling better compared to before. Now he is bringing up phlegm which is clear. No hemoptysis Review of Systems 2 Review of Systems: All systems reviewed & are unremarkable except as noted in Subjective Physical Exam 2 Physical Exam: Constitutional: No acute distress HEENT: EOMI, PERRLA, thick neck Respiratory system: Decreased air entry bilaterally, no wheeze, no rhonchi, positive crackles bilateral lower lobes CVS: S1-S2 positive, no murmurs or gallops Abdomen: Soft, nontender, nondistended, positive bowel sounds x4, obese Extremities: +2 pulses bilaterally radialis/ dorsalis pedis, no cyanosis, no edema Neuro: Awake alert oriented x3 Psych: Normal mood and affect G/U: No [place] Skin: no rashes, warm and dry Lymphatic: no cervical or axillary lymphadenopathy Results & Data Results & Data Vital Signs (Past 12 Hours) Vital Signs Temp Pulse Pulse Resp BP Pulse Ox O2 Del Method 12/05/23 03:45 36.7 C 66 18 145/79 H 93 Nasal Cannula 12/04/23 23:49 35.6 C L 75 20 115/80 96 CPAP 12/04/23 22:40 73 19 97 12/04/23 21:59 77 12/04/23 21:59 Nasal Cannula 12/04/23 20:18 36.5 C 80 20 165/103 H 98 Room Air 12/04/23 19:47 80 20 93 Nasal Cannula O2 Flow Rate FiO2 12/05/23 03:45 1 12/04/23 23:49 12/04/23 22:40 30 12/04/23 21:59 12/04/23 21:59 2 12/04/23 20:18 12/04/23 19:47 1 Laboratory Results 12/04/23 05:29 12/04/23 05:29 PG Care Time/CCT Total # of Minutes Spent Total Time Spent with Patient: Total time spent is greater than 50% in coordination of care (as documented) at patient's floor/unit and/or counseling patient: Coding Level of Care Code 78058 SUB INP/OBS CARE 2/35MIN Diagnoses COPD exacerbation J44.1 SOB (shortness of breath) R06.02 RSV (respiratory syncytial virus infection) B33.8 Acute respiratory failure with hypoxia J96.01 Sleep disorder breathing G47.30 Alcohol use disorder F10.90 Tobacco use disorder F17.200
[2023-12-05 08:26] LABS: Hematocrit (blood only) 38.6 % (42.0-52.0); Mean Corpuscular Hemoglobin 34.8 pg (25.0-34.0); Mean Corpuscular Hgb Conc 33.7 g/dL (32.0-36.0); Mean Corpuscular Volume 103.2 fL (80.0-100.0); Platelet Count 252 K/uL (130-400); RDW Coefficient of Variation 13.3 % (11.5-14.5); RDW Standard Deviation 51.2 fL (36.4-46.3); Red Blood Count 3.74 M/uL (4.70-6.10); White Blood Count 9.48 K/ul (4.8-10.8)
[2023-12-05 08:39] LABS: BUN Creatinine Ratio 29.2 (10-20); Calcium 9.2 mg/dl (8.6-10.3); Creatinine Clr Calc Pharmacy 104.8 ml/min; Est GFR (African American) 99.2 ml/min; Est GFR (Non-African American) 85.6 ml/min; Magnesium 2.4 mg/dl (1.7-2.4); Phosphorus 4.8 mg/dl (2.5-4.9)
--- NOTE | 2023-12-05 11:25 | Hospitalist Progress Note ---
Date of Service December 05, 2023 Assessment & Plan (1) Acute respiratory failure with hypoxia: (2) COPD exacerbation: (3) RSV (respiratory syncytial virus infection): (4) Alcohol use disorder: (5) Tobacco use disorder: (6) Hypertension: (7) Sleep apnea: Plan Mr. Jimenez is a 58-year-old male who has significant past medical history of COPD, tobacco dependence, HTN, HLD, chronic diastolic CHF, CAD, hepatic steatosis who presents to ED secondary to worsening shortness of breath over the last few days. He is being managed for the following: #Acute hypoxic respiratory failure in setting of RSV #Acute COPD exacerbation #RSV positive Patient coming in with worsening shortness of breath, increased cough with scant sputum. Admitting CXR with faint bibasilar opacities. Admitting troponin negative. Admitting EKG with sinus tachycardia. CTA chest w/ no PE. Clinically patient does not feel improved, has increased cough, scant sputum, cannot comment on the color of the sputum. He is eating okay and moving bowels okay. Continue with Solu-Medrol and azithromycin 11/28. -[place] completed -Completed IV solumedrol course, now plan for prednisone 40mg daily for 4 more days Due to ongoing subjective shortness of breath, Consulted Pulm. -C/w Pulmicort/proformist and hypertonic saline neb. -Discontinue /Mucomyst nebs per request, and xopenex -Reduced neb frequency given anxiety exacerbated -Discharge with Trelegy Increased oxygen with activity. Encourage incentive spirometer. Continue as needed and scheduled nebs. Dextromethorphan/guaifenesin prn Wean down oxygen as tolerated Encouraged smoking cessation. Follow-up with pulmonology upon discharge. CPAP at night. Continue home lasix Requesting PT.OT to assess need for rehab servuces Pulse ox study for nocturnal hypoxia 2 step in am #Pulmonary nodule Repeat CT in 1 year for RLL pulm nodule #Tobacco abuse: Encourage cessation. Declined nicotine patch #Alcohol abuse Patient admits to drinking 2-4 mixed drinks daily with 1 shot in each drink A WSS protocol, monitor for withdrawal Patient denies prior history of withdrawal, states he has gone 2 to 3 days with out drink without having an issue Monitor closely, as needed oral Ativan Daily thiamine and folic acid Gabapentin taper #Anxiety -element of anxiety contributing -ativan prn, hydroxyzine #Obstructive sleep apnea: was scheduled to see sleep medicine on Thursday 11/30, this needs to be rescheduled. He has prior history of obstructive sleep apnea diagnosis, but has never worn mask and is currently undergoing further testing #Chronic diastolic CHF #Hypertension Chronic, stable Continue carvedilol and Lasix -Increased carvedilol 37.5mg BID -Tried to add amlodipine, however, noted leg swelling previously Hyperlipidemia: Chronic, stable. Continue statin DVT prophylaxis: SQ Lovenox FULL CODE PCP: Dr. Wayne Dispo: admit to [facility] tele Admission and Anticipated Discharge Date Admission Date: November 29, 2023 Subjective No acute events overnight Reports feeling much improved overall, still with notable anxiety Physical Exam Constitutional: WD/WN, vitals as above Respiratory: normal respiratory effort, lungs clear to auscultation Cardiovascular: RRR, no murmur, no edema Gastrointestinal (Abdomen): normal bowel sounds, soft, nontender, no hepatosplenomegaly Results & Data Results & Data Vital Signs (Past 12 Hours) Vital Signs Temp Pulse Pulse Resp BP Pulse Ox O2 Del Method 12/05/23 07:52 36.6 C 70 20 151/99 H 94 Room Air 12/05/23 07:28 Room Air 12/05/23 07:18 73 18 93 Nasal Cannula 12/05/23 06:00 67 12/05/23 03:45 36.7 C 66 18 145/79 H 93 Nasal Cannula 12/04/23 23:49 35.6 C L 75 20 115/80 96 CPAP O2 Flow Rate 12/05/23 07:52 12/05/23 07:28 12/05/23 07:18 1 12/05/23 06:00 12/05/23 03:45 1 12/04/23 23:49 Laboratory Results Short CBC 12/05/23 Range/Units 07:12 WBC 9.48 (4.8-10.8) K/ul Hgb 13.0 L (14.0-18.0) g/dl Hct 38.6 L (42.0-52.0) % Plt Count 252 (130-400) K/uL BMP 12/05/23 07:12 Sodium 138 Potassium 4.0 Chloride 103 Carbon Dioxide 28 BUN 28 H Creatinine 0.96 Glucose 94 Calcium 9.2 Medications Administered Home Medications Medication Instructions Recorded Confirmed Last Taken albuterol sulfate 90 mcg/actuation 2 puff inhalation Q4H PRN 03/09/23 11/29/23 Unknown aerosol inhaler Shortness Of Breath Or Wheezing #8.5 grams aspirin 81 mg tablet,delayed 81 mg PO QAM #30 tabs 03/09/23 11/29/23 06/09/23 release atorvastatin 80 mg tablet 80 mg PO QAM 03/16/23 11/29/23 06/09/23 baclofen 10 mg tablet 10 mg PO TID PRN Muscle Spasm 06/09/23 11/29/23 Unknown fluticasone 500 mcg-salmeterol 50 2 inh inhalation BID 06/09/23 11/29/23 mcg/dose blistr powdr for inhalation (Advair Diskus) gabapentin 300 mg capsule 300 mg PO TID PRN Pain 06/09/23 11/29/23 Unknown ipratropium 0.5 mg-albuterol 3 mg 3 ml inhalation Q6H PRN 06/11/23 11/29/23 Unknown (2.5 mg base)/3 mL nebulization wheezing/severe shortness of soln breath #90 mL furosemide 20 mg tablet 20 mg PO QAM 10/14/23 11/29/23 Unknown potassium chloride 20 mEq 20 meq PO QAM 10/14/23 11/29/23 Unknown tablet,extended release carvedilol 12.5 mg tablet 12.5 mg PO BID 11/29/23 11/29/23 Unknown umeclidinium 62.5 mcg/actuation 1 inh inhalation DAILY 11/29/23 11/29/23 Unknown blister powder for inhalation Active Medications Generic Name Dose Route Start Last Admin Trade Name Freq PRN Reason Stop Dose Admin Acetaminophen 650 mg 11/29/23 12:58 12/04/23 21:12 Acetaminophen 325 Mg Tab PO 12/29/23 12:57 650 mg Q4H PRN Administration Pain or Fever Aspirin 81 mg 11/30/23 09:00 12/05/23 08:13 Aspirin 81 Mg Ectab PO 12/30/23 08:59 81 mg QAM MARANDA Administration Atorvastatin Calcium 80 mg 11/30/23 09:00 12/05/23 08:13 Atorvastatin 40 Mg Tab PO 12/30/23 08:59 80 mg QAM MARANDA Administration Benzonatate 100 mg 11/30/23 14:00 12/05/23 08:11 Benzonatate 100 Mg Capsule PO 12/30/23 13:59 100 mg TID MARANDA Administration Budesonide 0.5 mg 11/30/23 10:15 12/05/23 07:17 Budesonide 0.5 Mg/2 Ml Vial (Pulmicort) NEB 12/30/23 10:14 0.5 mg BIDR MARANDA Administration Enoxaparin Sodium 40 mg 11/29/23 21:00 12/04/23 21:22 Enoxaparin Inj 40 Mg/0.4 Ml Syr SQ 12/29/23 20:59 40 mg HS MARANDA Administration Folic Acid 1 mg 11/30/23 09:00 12/05/23 08:12 Folic Acid 1 Mg Tab PO 12/30/23 08:59 1 mg QAM MARANDA Administration Formoterol Fumarate 20 mcg 12/01/23 19:00 12/05/23 07:17 Formoterol 20 Mcg/2 Ml Vial INH 12/31/23 18:59 20 mcg BIDR MARANDA Administration Furosemide 20 mg 11/30/23 09:00 12/05/23 08:14 Furosemide 20 Mg Tab PO 12/30/23 08:59 20 mg QAM MARANDA Administration Gabapentin 300 mg 11/29/23 12:58 12/05/23 08:13 Gabapentin 300 Mg Cap PO 12/29/23 12:57 300 mg TID PRN Administration Pain Hydroxyzine HCl 50 mg 12/02/23 16:52 12/04/23 14:33 Hydroxyzine Hcl 25 Mg Tab PO 12/31/23 15:44 50 mg Q6H PRN Administration Anxiety/Agitation Lorazepam 0.5 mg 12/01/23 01:10 12/05/23 09:45 Lorazepam 0.5 Mg Tab PO 12/31/23 01:09 0.5 mg TID PRN Administration Anxiety Melatonin 9 mg 12/01/23 22:46 12/05/23 00:34 Melatonin 3 Mg Tab PO 12/30/23 22:13 9 mg HS PRN Administration Sleep Potassium Chloride 20 meq 11/30/23 09:00 12/05/23 08:17 Potassium Chloride Crtab 20 Meq Tabcr PO 12/30/23 08:59 20 meq QAM MARANDA Administration Prednisone 40 mg 12/03/23 09:00 12/05/23 08:14 Prednisone 20 Mg Tab PO 12/08/23 09:01 40 mg DAILY MARANDA Administration Sodium Chloride 4 ml 12/02/23 19:00 12/05/23 07:18 Sodium Chlor 7% 4 Ml Neb NEB 01/01/24 18:59 Not Given BIDR MARANDA Thiamine HCl 100 mg 11/30/23 09:00 12/05/23 08:12 Thiamine Hcl 100 Mg Tab PO 12/30/23 08:59 100 mg QAM MARANDA Administration Umeclidinium [place] 1 puffs 11/30/23 09:00 12/05/23 08:10 Umeclidinium [place] 62.5mcg/Blister 7 Puffs/Inhaler INH 12/30/23 08:59 1 puffs DAILY MARANDA Administration
[2023-12-05] MEDS: FUROSEMIDE INJ 20 MG/2 ML VIAL IV ONE (17:08)
[2023-12-05] MEDS: carvediloL 12.5 MG TAB PO SCH (19:50)
[2023-12-06 06:58] LABS: BUN Creatinine Ratio 30.3 (10-20); Calcium 9.2 mg/dl (8.6-10.3); Creatinine Clr Calc Pharmacy 101.3 ml/min; Est GFR (African American) 95.5 ml/min; Est GFR (Non-African American) 82.4 ml/min; Potassium 3.4 mmol/L (3.5-5.1)
--- NOTE | 2023-12-06 07:55 | Pulmonology Progress Note ---
Date of Service December 06, 2023 Assessment & Plan (1) COPD exacerbation: (2) SOB (shortness of breath): (3) RSV (respiratory syncytial virus infection): (4) Acute respiratory failure with hypoxia: (5) Sleep disorder breathing: (6) Alcohol use disorder: (7) Tobacco use disorder: Plan IMPRESSION: 58-year-old male with a significant past medical history of COPD, tobacco abuse disorder, and alcohol use disorder who was admitted with a COPD exacerbation with acute hypoxic respiratory failure in the setting of RSV infection. Social history:> [id number] smoking history, currently smoking half a pack a day. Drinks alcohol heavily on a regular basis. 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 -- Acute hypoxic respiratory failure Secondary to COPD with exacerbation likely from RSV infection No pulmonary emboli on CTA 2D echo does not show PFO -- Lung Nodule - 6 mm RLL nodule appears stable dating back to imaging on 06/24/2021. Continue with annual LDCT lung cancer screening exams given his smoking history, age, and risks. -- Sleep disordered breathing - Recommend outpatient polysomnography BiPAP nightly and as needed shortness of breath -- Alcohol use disorder - Patient reportedly drinks between 2 and 4 mixed drinks a day. Agree with [facility] protocol for this patient with aggressive treatment of his s/s. -- Tobacco use disorder - > [id number] smoking history, currently smoking half a pack a day. Importance of quitting explained to the patient in depth Plan: Continue with budesonide nebulized along with Brovana. Continue with Incruse and nebulized Mucomyst Continue with hypertonic saline nebulized, continue with Mucinex and flutter valve On discharge recommend Trelegy inhaler or BrezTri inhaler on a regular basis, nebulized hypertonic saline with Mucinex and flutter valve will also be beneficial Taper prednisone to 20 mg for 4 days and then stop Continue with BiPAP nightly and as needed shortness of breath Repeat CT chest in 12 months for the right lower lobe pulmonary nodule Patient will benefit from outpatient pulmonary follow-up with PFTs Recommend to check for oxygen on exertion prior to discharge Case was discussed with RN and primary team No further recommendation from pulmonary perspective, will sign off Please call directly with any questions Please note the above document was generated using voice recognition software. It may contain grammatical, syntax or spelling errors.Any formal questions or concerns about the content, text or information contained within the body of this dictation should be directly addressed to the provider for clarification. Admission and Anticipated Discharge Date Admission Date: November 29, 2023 Subjective Patient seen and examined at bedside. No acute distress, no adverse events overnight Overall he says he is feeling better. Denies any nausea vomiting Is able to bring up the phlegm with ease now. No hemoptysis Denies any headache, no blurry vision Advised the patient to use BiPAP more frequently while he is in the hospital Review of Systems 2 Review of Systems: All systems reviewed & are unremarkable except as noted in Subjective Physical Exam 2 Physical Exam: Constitutional: No acute distress HEENT: EOMI, PERRLA, thick neck Respiratory system: Decreased air entry bilaterally, no wheeze, no rhonchi, mild crackles bilateral lower lobes CVS: S1-S2 positive, no murmurs or gallops Abdomen: Soft, nontender, nondistended, positive bowel sounds x4, obese Extremities: +2 pulses bilaterally radialis/ dorsalis pedis, no cyanosis, no edema Neuro: Awake alert oriented x3 Psych: Normal mood and affect G/U: No [place] Skin: no rashes, warm and dry Lymphatic: no cervical or axillary lymphadenopathy Results & Data Results & Data Vital Signs (Past 12 Hours) Vital Signs Temp Pulse Pulse Pulse Resp BP Pulse Ox 12/06/23 07:28 12/06/23 07:19 78 18 95 12/06/23 06:33 60 12/06/23 03:59 36.4 C L 73 20 130/77 89 L 12/06/23 03:40 77 12/06/23 03:35 80 12/06/23 00:24 70 12/05/23 23:58 36.3 C L 76 18 123/81 91 12/05/23 23:23 12/05/23 22:24 74 12/05/23 20:05 82 18 95 12/05/23 20:01 36.3 C L 79 18 115/76 94 Pulse Ox O2 Del Method O2 Del Method O2 Flow Rate O2 Flow Rate FiO2 12/06/23 07:28 Nasal Cannula 2 12/06/23 07:19 Nasal Cannula 2 12/06/23 06:33 12/06/23 03:59 Room Air 12/06/23 03:40 93 Nasal Cannula 2 12/06/23 03:35 86 L Room Air 12/06/23 00:24 12/05/23 23:58 Nasal Cannula 2 12/05/23 23:23 Room Air 12/05/23 22:24 94 Room Air 21 12/05/23 20:05 Nasal Cannula 2 12/05/23 20:01 Nasal Cannula 2 Laboratory Results 12/05/23 07:12 12/06/23 06:01 PG Care Time/CCT Total # of Minutes Spent Total Time Spent with Patient: Total time spent is greater than 50% in coordination of care (as documented) at patient's floor/unit and/or counseling patient: Coding Level of Care Code 36229 SUB INP/OBS CARE 2/35MIN Diagnoses COPD exacerbation J44.1 SOB (shortness of breath) R06.02 RSV (respiratory syncytial virus infection) B33.8 Acute respiratory failure with hypoxia J96.01 Sleep disorder breathing G47.30 Alcohol use disorder F10.90 Tobacco use disorder F17.200
[2023-12-06] MEDS: POTASSIUM CHLORIDE CRTAB 20 MEQ TABCR PO STA (08:29)
--- NOTE | 2023-12-06 09:46 | Hospitalist Progress Note ---
Date of Service December 06, 2023 Assessment & Plan (1) Acute respiratory failure with hypoxia: (2) COPD exacerbation: (3) RSV (respiratory syncytial virus infection): (4) Alcohol use disorder: (5) Tobacco use disorder: (6) Hypertension: (7) Sleep apnea: Plan Mr. Jimenez is a 58-year-old male who has significant past medical history of COPD, tobacco dependence, HTN, HLD, chronic diastolic CHF, CAD, hepatic steatosis who presents to ED secondary to worsening shortness of breath over the last few days. He is being managed for the following: #Acute hypoxic respiratory failure in setting of RSV #Acute COPD exacerbation #RSV positive #Nocturnal hypoxia Patient coming in with worsening shortness of breath, increased cough with scant sputum. Admitting CXR with faint bibasilar opacities. Admitting troponin negative. Admitting EKG with sinus tachycardia. CTA chest w/ no PE. -Azithro completed -Completed IV solumedrol course, now plan for prednisone 20mg x 4 more dys Due to ongoing subjective shortness of breath, Consulted Pulm. -C/w Pulmicort/proformist and hypertonic saline neb. -Discontinue /Mucomyst nebs per request, and xopenex -Reduced neb frequency given anxiety exacerbated -Discharge with Trelegy Increased oxygen with activity. Encourage incentive spirometer. Continue as needed and scheduled nebs. Dextromethorphan/guaifenesin prn Wean down oxygen as tolerated Encouraged smoking cessation. Follow-up with pulmonology upon discharge. CPAP at night -Will need op sleep study for home cpap Continue home lasix -Trial additional IV lasix Pulse ox study positive for nocturnal hypoxia Requesting PT.OT to assess need for rehab services 2 step today #Pulmonary nodule Repeat CT in 1 year for RLL pulm nodule #Tobacco abuse: Encourage cessation. Declined nicotine patch #Alcohol abuse Patient admits to drinking 2-4 mixed drinks daily with 1 shot in each drink A WSS protocol, monitor for withdrawal Patient denies prior history of withdrawal, states he has gone 2 to 3 days without drink without having an issue Monitor closely, as needed oral Ativan Daily thiamine and folic acid Gabapentin taper completed #Anxiety -element of anxiety contributing -ativan prn, hydroxyzine -Trial buspar as element of anxiety appears to be contributing to continued presentation notably #Obstructive sleep apnea: was scheduled to see sleep medicine on Thursday 11/30, this needs to be rescheduled. He has prior history of obstructive sleep apnea diagnosis, but has never worn mask and is currently undergoing further testing #Chronic diastolic CHF #Hypertension Chronic, stable Continue carvedilol and Lasix -Increased carvedilol 37.5mg BID -Tried to add amlodipine, however, noted leg swelling previously Hyperlipidemia: Chronic, stable. Continue statin DVT prophylaxis: SQ Lovenox FULL CODE PCP: Dr. Wayne Dispo: admit to [facility] tele Admission and Anticipated Discharge Date Admission Date: November 29, 2023 Subjective No acute events overnight Though clinically patient is improving; he reports subjectively feeling unable to breath. He is frustrated that he isn't better Reviewed is imaging with him Discussed his intolerance to nebs Physical Exam Constitutional: WD/WN, vitals as above anxious, appears to be breathing comfortably when walking by room, but as engaging in conversation appears to work self up in to more labored breathing Respiratory: no crackles, rhonchi, wheezing, good air entry Gastrointestinal (Abdomen): normal bowel sounds, soft, nontender, no hepatosplenomegaly Results & Data Results & Data Vital Signs (Past 12 Hours) Vital Signs Temp Pulse Pulse Pulse Resp BP Pulse Ox 12/06/23 08:07 36.6 C 69 18 137/90 94 12/06/23 07:28 12/06/23 07:19 78 18 95 12/06/23 06:33 60 12/06/23 03:59 36.4 C L 73 20 130/77 89 L 12/06/23 03:40 77 12/06/23 03:35 80 12/06/23 00:24 70 12/05/23 23:58 36.3 C L 76 18 123/81 91 12/05/23 23:23 12/05/23 22:24 74 Pulse Ox O2 Del Method O2 Del Method O2 Flow Rate O2 Flow Rate FiO2 12/06/23 08:07 Nasal Cannula 2 12/06/23 07:28 Nasal Cannula 2 12/06/23 07:19 Nasal Cannula 2 12/06/23 06:33 12/06/23 03:59 Room Air 12/06/23 03:40 93 Nasal Cannula 2 12/06/23 03:35 86 L Room Air 12/06/23 00:24 12/05/23 23:58 Nasal Cannula 2 12/05/23 23:23 Room Air 12/05/23 22:24 94 Room Air 21 Laboratory Results BMP 12/06/23 06:01 Sodium 139 Potassium 3.4 L Chloride 102 Carbon Dioxide 30 BUN 30 H Creatinine 0.99 Glucose 95 Calcium 9.2 Medications Administered Home Medications Medication Instructions Recorded Confirmed Last Taken albuterol sulfate 90 mcg/actuation 2 puff inhalation Q4H PRN 03/09/23 11/29/23 Unknown aerosol inhaler Shortness Of Breath Or Wheezing #8.5 grams aspirin 81 mg tablet,delayed 81 mg PO QAM #30 tabs 03/09/23 11/29/23 06/09/23 release atorvastatin 80 mg tablet 80 mg PO QAM 03/16/23 11/29/23 06/09/23 baclofen 10 mg tablet 10 mg PO TID PRN Muscle Spasm 06/09/23 11/29/23 Unknown fluticasone 500 mcg-salmeterol 50 2 inh inhalation BID 06/09/23 11/29/23 06/09/23 mcg/dose blistr powdr for inhalation (Advair Diskus) gabapentin 300 mg capsule 300 mg PO TID PRN Pain 06/09/23 11/29/23 Unknown ipratropium 0.5 mg-albuterol 3 mg 3 ml inhalation Q6H PRN 06/11/23 11/29/23 Unknown (2.5 mg base)/3 mL nebulization wheezing/severe shortness of soln breath #90 mL furosemide 20 mg tablet 20 mg PO QAM 10/14/23 11/29/23 Unknown potassium chloride 20 mEq 20 meq PO QAM 10/14/23 11/29/23 Unknown tablet,extended release carvedilol 12.5 mg tablet 12.5 mg PO BID 11/29/23 11/29/23 Unknown umeclidinium 62.5 mcg/actuation 1 inh inhalation DAILY 11/29/23 11/29/23 Unknown blister powder for inhalation Active Medications Generic Name Dose Route Start Last Admin Trade Name Freq PRN Reason Stop Dose Admin Acetaminophen 650 mg 11/29/23 12:58 12/05/23 22:23 Acetaminophen 325 Mg Tab PO 12/29/23 12:57 650 mg Q4H PRN Administration Pain or Fever Aspirin 81 mg 11/30/23 09:00 03/17/24 08:33 Aspirin 81 Mg Ectab PO 12/30/23 08:59 81 mg QAM MARANDA Administration Atorvastatin Calcium 80 mg 11/30/23 09:00 12/06/23 08:33 Atorvastatin 40 Mg Tab PO 12/30/23 08:59 80 mg QAM MARANDA Administration Benzonatate 100 mg 11/30/23 14:00 12/06/23 08:33 Benzonatate 100 Mg Capsule PO 12/30/23 13:59 100 mg TID MARANDA Administration Budesonide 0.5 mg 11/30/23 10:15 12/06/23 07:17 Budesonide 0.5 Mg/2 Ml Vial (Pulmicort) NEB 12/30/23 10:14 0.5 mg BIDR MARANDA Administration Carvedilol 37.5 mg 12/05/23 21:00 12/06/23 08:31 Carvedilol 12.5 Mg Tab PO 01/04/24 20:59 37.5 mg BID MARANDA Administration Enoxaparin Sodium 40 mg 11/29/23 21:00 12/05/23 19:49 Enoxaparin Inj 40 Mg/0.4 Ml Syr SQ 12/29/23 20:59 40 mg HS MARANDA Administration Folic Acid 1 mg 11/30/23 09:00 12/06/23 08:32 Folic Acid 1 Mg Tab PO 12/30/23 08:59 1 mg QAM MARANDA Administration Formoterol Fumarate 20 mcg 12/01/23 19:00 12/06/23 07:17 Formoterol 20 Mcg/2 Ml Vial INH 12/31/23 18:59 20 mcg BIDR MARANDA Administration Furosemide 20 mg 11/30/23 09:00 12/06/23 08:32 Furosemide 20 Mg Tab PO 12/30/23 08:59 20 mg QAM MARANDA Administration Gabapentin 300 mg 11/29/23 12:58 12/06/23 08:31 Gabapentin 300 Mg Cap PO 12/29/23 12:57 300 mg TID PRN Administration Pain Hydroxyzine HCl 50 mg 12/02/23 16:52 12/05/23 19:50 Hydroxyzine Hcl 25 Mg Tab PO 12/31/23 15:44 50 mg Q6H PRN Administration Anxiety/Agitation Lorazepam 0.5 mg 12/01/23 01:10 12/05/23 09:45 Lorazepam 0.5 Mg Tab PO 12/31/23 01:09 0.5 mg TID PRN Administration Anxiety Melatonin 9 mg 12/01/23 22:46 12/05/23 19:51 Melatonin 3 Mg Tab PO 12/30/23 22:13 9 mg HS PRN Administration Sleep Potassium Chloride 20 meq 11/30/23 09:00 12/06/23 08:29 Potassium Chloride Crtab 20 Meq Tabcr PO 12/30/23 08:59 20 meq QAM MARANDA Administration Sodium Chloride 4 ml 12/02/23 19:00 12/06/23 07:18 Sodium Chlor 7% 4 Ml Neb NEB 01/01/24 18:59 Not Given BIDR MARANDA Thiamine HCl 100 mg 11/30/23 09:00 12/06/23 08:32 Thiamine Hcl 100 Mg Tab PO 12/30/23 08:59 100 mg QAM MARANDA Administration Umeclidinium [place] 1 puffs 11/30/23 09:00 12/06/23 08:30 Umeclidinium [place] 62.5mcg/Blister 7 Puffs/Inhaler INH 12/30/23 08:59 1 puffs DAILY MARANDA Administration
--- NOTE | 2023-12-06 11:48 | XRay Report ---
XR chest 1V portable HISTORY: continue shortness of breath COMPARISON: Chest 12/03/2023. FINDINGS: No pneumothorax. No pleural effusions. The cardiac silhouette remains top normal in size. I mprovement in the lower lobe interstitial opacities. No new focal lung consolidations. No evidence fo r pulmonary edema. IMPRESSION: Improvement in the lower lobe interstitial opacities suggesting a resolving pneumonia. ACT 112: Negative or not required by law. Electronically signed by: Ted Lawrence M.D. 12/06/2023 11:47 AM
[2023-12-06] MEDS: busPIRone 5 MG TAB PO SCH (13:21)
[2023-12-07] MEDS: predniSONE 20 MG TAB PO SCH (09:30)
--- NOTE | 2023-12-07 10:54 | Discharge Summary ---
Discharge Summary Date of Service December 07, 2023 Notes For Next Care Provider Medication Changes From Visit Buspar 5mg TID Prednisone 20mg x 3 days Carvedilol increased to 37.5mg BID Trelegy inhaler Admission HPI Per Admitting Provider This is a 58-year-old male who has significant past medical history of COPD, tobacco dependence, HTN, HLD, chronic diastolic CHF, CAD, hepatic steatosis who presents to ED secondary to worsening shortness of breath over the last few days. Outpatient records were reviewed. Of significance patient was seen and evaluated in ED on 11/19/2023 due to shortness of breath.Chest x-ray during that evaluation reviewed no acute cardiopulmonary abnormality. He received a nebulizer en route which significantly improved his breathing. He was saturating normally on room air. He did receive IV Solu-Medrol and was discharged home on Medrol Dosepak. Respiratory bio fire was negative at this time. Since being seen in ED he did have follow-up with pulmonary provider on 11/22.Recommendations during this visit were to change to Incruse once daily and replacement of Anoro. Recommendations were also made to continue fluticasone- salmeterol twice daily. He has been doing this over the last 10 days. He complains of intermittent shortness of breath he states that, "comes and goes." His cough has been mostly dry but occasionally he is able to produce sputum. He is unsure if it is purulent or not. He denies any fever, chills, sweats, lightheadedness, dizziness, chest pain, hemoptysis, nausea, vomit, abdominal pain, changes bowel or urinary habits. He is trying to quit smoking but states he has had a cigarette or 2 a day. He is scheduled to have back surgery with Dr. Brenner. Currently it has been pushed back secondary to COPD exacerbations as well as he is to be smoke-free for 30 days. He does not feel that he completely but over the exacerbation from . He did complete his Medrol Dosepak but did not take any antibiotics. In ED patient made hemodynamically stable but he was hypoxic on arrival requiring 3 L of oxygen. He did receive 1 hour-long nebulizer treatment, IV dexamethasone 10 mg, 1 g of magnesium and IV fluids. Friend at bedside who also helps elicit history. Admission Exam Per Admitting Provider Constitutional: WD/WN, vitals as above, NAD, sitting up in bed, pleasant, conversing easily Head: Normocephalic, Atraumatic Eyes: PERRL, conjunctivae normal, anicteric sclerae ENMT: external ear and nose normal, oropharynx normal Neck: trachea midline, no thyromegaly normal visual inspection Respiratory: normal respiratory effort, lungs clear to auscultation with bibasilar expiratory wheeze and prolonged expiratory phase, no rales, rhonchi. Normal insp/exp effort, no accessory muscle use Cardiovascular: RRR, no murmur, no edema Vessels: no JVD or carotid bruit Chest: normal inspection of chest Abdomen: normal bowel sounds, soft, nontender, no hepatosplenomegaly Musculoskeletal: no cyanosis or clubbing, extremities motor strength 5/5 Skin: no rashes, warm and dry normal turgor Neurologic: PERRL, EOMI, accommodation nl, no face palsy, no dysarthria CN's II-XI intact bilaterally and moves all extremities Psychiatric: A+Ox3, euthymic affect Lymphatic: no cervical or axillary lymphadenopathy : deferred Principal Dx & Hospital Course #1 = Principal Diagnosis (1) Acute respiratory failure with hypoxia: (2) COPD exacerbation: (3) RSV (respiratory syncytial virus infection): (4) Alcohol use disorder: (5) Tobacco use disorder: (6) Hypertension: (7) Sleep apnea: Plan Mr. Jimenez is a 58-year-old male who has significant past medical history of COPD, tobacco dependence, HTN, HLD, chronic diastolic CHF, CAD, hepatic steatosis who presents to ED secondary to worsening shortness of breath over the last few days. He is being managed for the following: #Acute hypoxic respiratory failure in setting of RSV *resolved #Acute COPD exacerbation #RSV positive Patient coming in with worsening shortness of breath, increased cough with scant sputum. Admitting CXR with faint bibasilar opacities. Admitting troponin negative. Admitting EKG with sinus tachycardia. CTA chest w/ no PE. -Jaida completed -Completed IV solumedrol course Due to ongoing subjective shortness of breath, Consulted Pulm. -C/w Pulmicort/proformist and hypertonic saline neb. -Discontinue /Mucomyst nebs per request, and xopenex -Reduced neb frequency given anxiety exacerbated -Discharge with Trelegy and hypertonic nebs Encouraged smoking cessation. Follow-up with pulmonology upon discharge. Continue home lasix Prednisone 20mg x 3 days #Nocturnal hypoxia Pulse ox study positive for nocturnal hypoxia 2 step without oxygen requirement Will need OP sleep study for sleep apnea #Pulmonary nodule Repeat CT in 1 year for RLL pulm nodule #Tobacco abuse: Encourage cessation. Declined nicotine patch #Alcohol abuse Patient admits to drinking 2-4 mixed drinks daily with 1 shot in each drink A WSS protocol, monitor for withdrawal Patient denies prior history of withdrawal, states he has gone 2 to 3 days without drink without having an issue Monitor closely, as needed oral Ativan Daily thiamine and folic acid Gabapentin taper completed #Anxiety -element of anxiety contributing -ativan prn, hydroxyzine -Trial buspar as element of anxiety appears to be contributing to continued presentation notably #Obstructive sleep apnea: was scheduled to see sleep medicine on Thursday 11/30, this needs to be rescheduled. He has prior history of obstructive sleep apnea diagnosis, but has never worn mask and is currently undergoing further testing #Chronic diastolic CHF #Hypertension Chronic, stable Continue carvedilol and Lasix -Increased carvedilol 37.5mg BID -Tried to add amlodipine, however, noted leg swelling previously Hyperlipidemia: Chronic, stable. Continue statin DVT prophylaxis: SQ Lovenox FULL CODE PCP: Dr. Wayne Dispo: admit to med tele Discharge Exam Constitutional WD/WN, vitals as above Respiratory normal respiratory effort, lungs clear to auscultation dry cough Cardiovascular RRR, no murmur, no edema Gastrointestinal (Abdomen) normal bowel sounds, soft, nontender, no hepatosplenomegaly Musculoskeletal no cyanosis or clubbing, extremities motor strength 5/5 Skin no rashes, warm and dry Updated Medication List Medication Instructions Recorded Confirmed Type albuterol sulfate 90 mcg/actuation 2 puff inhalation Q4H PRN 03/09/23 11/29/23 Rx aerosol inhaler Shortness Of Breath Or Wheezing #8.5 grams aspirin 81 mg tablet,delayed 81 mg PO QAM #30 tabs 03/09/23 11/29/23 Rx release atorvastatin 80 mg tablet 80 mg PO QAM 03/16/23 11/29/23 History baclofen 10 mg tablet 10 mg PO TID PRN Muscle Spasm 06/09/23 11/29/23 History gabapentin 300 mg capsule 300 mg PO TID PRN Pain 06/09/23 11/29/23 History ipratropium 0.5 mg-albuterol 3 mg 3 ml inhalation Q6H PRN 06/11/23 11/29/23 Rx (2.5 mg base)/3 mL nebulization wheezing/severe shortness of soln breath #90 mL furosemide 20 mg tablet 20 mg PO QAM 10/14/23 11/29/23 History potassium chloride 20 mEq 20 meq PO QAM 10/14/23 11/29/23 History tablet,extended release buspirone 5 mg tablet 5 mg PO TID #90 tabs 12/07/23 Rx carvedilol 12.5 mg tablet 37.5 mg (3 x 12.5 mg) PO BID #180 12/07/23 Rx tabs fluticasone fur. 200 mcg-umeclid 1 inh inhalation DAILY #60 ea 12/07/23 Rx 62.5 mcg-vilant 25 mcg inhalat.powder (Trelegy Ellipta) folic acid 1 mg tablet 1 mg PO QAM #30 tabs 12/07/23 Rx guaifenesin 600 mg tablet, 600 mg PO BID #60 tabs 12/07/23 Rx extended release 12 hr (Mucinex) prednisone 20 mg tablet 20 mg PO DAILY #3 tabs 12/07/23 Rx sodium chloride 7 % for 4 ml inhalation BIDR 12/07/23 Rx nebulization secretion/mucus clearance #240 mL Hospital Stay Data Consultations 11/29/23 11:19 ED Decision to Admit Stat 12/01/23 11:34 Consult Pulmonology Routine Diagnostic Imagining Performed 11/30/23 23:49 CT head/brain wo con Stat 12/01/23 11:34 CT angio chest PE protocol Urgent Pending Results Patient Have Any Pending Studies at Discharge: No Discharge Instructions Given to Patient (Per Discharging Provider) You were admitted for COPD exacerbation due to RSV (respiratory syncytial virus). You were started on steroids and needed time to wean off of most oxygen while breathing improved. Your chest xray is improved from admission. You will continue 3 more days of steroids, starting tomorrow 12/07 of prednisone 20mg in the morning. Your inhalers were changed to a single inhaler that has all the combination of medication. Please discontinue your Advair and Incruse inhaler, and start the Trelegy inhaler in the morning. To help with mucus/sputum clearance, a prescription for hypertonic saline nebulizer solution was sent to your pharmacy. You can use this every six hours and it will help loosen secretions. You can also take Mucinex (guaifenesin 600mg) every twelve hours as well. You were started on folate supplementation, this is recommended to be continued or you can opt for a multivitamin daily. You were started on Buspar 5mg three times daily. This can help with the anxiety around the sensation of shortness of breath and recovering from the intensity of the acute illness you endured. Lastly, your coreg (carvedilol) for blood pressure was increased from 12.5mg two times a day to 27.5mg two times a day to help control your blood pressure. You will need 2L of oxygen at bedtime while sleeping until you follow up with Sleep Medicine. You will need Pulmonary follow up to moniitor your inhalers. Total Time Total Time Spent Total Time Spent (In Minutes): 45
== END 2023-12-07 13:27 | disposition home health service (06) | DRG 190 ==
LOC: ED 09:23 → EDINP 11:33 → SUATTDRO 11:33 → 2W 12:58

== ENCOUNTER 2024-01-13 08:54 | Inpatient (IN) ==
--- NOTE | 2023-12-29 09:46 | Anesthesiology Consultation ---
Date of Service December 29, 2023 Assessment & Plan (1) Encounter for pre-operative examination: Plan - awaiting [facility] medical and pulmonology clearances. - patient has upcoming [facility] pulmonology appointment 01/04/24. Case discussed with Dr. Stapleton who advised pulmonology clearance form be faxed in addition to obtaining a [facility] PCP medical clearance as well. Surgeon's office and patient made aware. - discharge summary 12/07/23 [facility]: "...Acute hypoxic respiratory failure in setting of RSV resolved. Acute COPD exacerbation...Admitting troponin negative. Admitting EKG with sinus tachycardia. CTA chest w/ no PE-Azithro completed- Completed IV solumedrol course. Due to ongoing subjective shortness of breath, Consulted Pulm...Encouraged smoking cessation. Follow-up with pulmonology upon discharge. Continue home lasix. Prednisone 20mg x 3 days...Nocturnal hypoxia Pulse ox study positive for nocturnal hypoxia 2 step without oxygen requirement. Will need OP sleep study for sleep apnea. Pulmonary nodule Repeat CT in 1 year for RLL pulm nodule...Alcohol abuse Patient admits to drinking 2-4 mixed drinks daily with 1 shot in each drink...denies prior history of withdrawal, states he has gone 2 to 3 days without drink without having an issue. Monitor closely, as needed oral Ativan...Obstructive sleep apnea: was scheduled to see sleep medicine on Thursday 11/30, this needs to be rescheduled. He has prior history of obstructive sleep apnea diagnosis, but has never worn mask and is currently undergoing further testing. Chronic diastolic CHF..." - PCP hospital f/u 12/09/23 [facility]: "...Admitted to [facility] from 11/29/23 - 12/07/23 for acute resp failure related to COPD exac. Please see d/c summary for full details. Continues to have significant issues with lower back pain - plans surgery with Dr Brenner - but has not been able to schedule due to ongoing smoking. Has to be smoke free for a month...continue current treatments. Pt working hard to quit smoking. Aware that he cannot schedule back surgery until he stops smoking..." - Per corporate quality engineer on 12/28/23: No known infectious disease contacts, current infectious disease symptoms in past 10 days or COVID positive test result in the past 30 days. Chart Review Chart Review: Pending: Refer to Additional Notes / Consult section and Patient NOT seen in Pre Admission Testing History Surgery Operation Date: 01/13/24 09:05 Proposed Procedures p L3-S1 Decompression and Fusion, Spinal Cord Monitoring - Ronn Brenner DO Height/Weight Height: 6 ft 1 in Weight: 108.862 kg Allergies Allergy/AdvReac Type Severity Reaction Status Date / Time TONIA Inhibitors AdvReac Severe ALESSANDRO Verified 12/28/23 09:35 ARB-Angiotensin Receptor AdvReac Severe ALESSANDRO Verified 12/28/23 09:35 Antagonist prednisone AdvReac Mild "jitterines Verified 12/28/23 09:35 s" Medications Home Medications Medication Instructions Recorded Confirmed Last Taken albuterol sulfate 90 mcg/actuation 2 puff inhalation Q4H PRN 03/09/23 12/28/23 Unknown aerosol inhaler Shortness Of Breath Or Wheezing #8.5 grams aspirin 81 mg tablet,delayed 81 mg PO QAM #30 tabs 03/09/23 12/28/23 06/09/23 release atorvastatin 80 mg tablet 80 mg PO QAM 03/16/23 12/28/23 06/09/23 baclofen 10 mg tablet 10 mg PO TID PRN Muscle Spasm 06/09/23 12/28/23 Unknown gabapentin 300 mg capsule 300 mg PO TID PRN Pain 06/09/23 12/28/23 Unknown ipratropium 0.5 mg-albuterol 3 mg 3 ml inhalation Q6H PRN 06/11/23 12/28/23 Unknown (2.5 mg base)/3 mL nebulization wheezing/severe shortness of soln breath #90 mL furosemide 20 mg tablet 20 mg PO QAM 10/14/23 12/28/23 Unknown potassium chloride 20 mEq 20 meq PO QAM 10/14/23 12/28/23 Unknown tablet,extended release folic acid 1 mg tablet 1 mg PO QAM #30 tabs 12/07/23 12/28/23 Unknown guaifenesin 600 mg tablet, 600 mg PO BID #60 tabs 12/07/23 12/28/23 Unknown extended release 12 hr (Mucinex) prednisone 20 mg tablet 20 mg PO DAILY #3 tabs 12/07/23 12/28/23 Unknown sodium chloride 7 % for 4 ml inhalation BIDR 12/07/23 12/28/23 Unknown nebulization secretion/mucus clearance #240 mL buspirone 5 mg tablet 5 mg PO TID PRN Anxiety 12/28/23 12/28/23 Unknown carvedilol 12.5 mg tablet 25 mg PO BID 12/28/23 12/28/23 Unknown fluticasone fur. 200 mcg-umeclid 1 inh inhalation QAM 12/28/23 12/28/23 Unknown 62.5 mcg-vilant 25 mcg inhalat.powder (Trelegy Ellipta) Past Medical History Medical History Acute respiratory failure with hypoxia hospitalized at [facility] November 2023 for this, still having some shortness of breath with activity, at rest is okay Anemia CAD (coronary artery disease) Chronic obstructive pulmonary disease hospitalized at [facility] November 2023 for this, still having some shortness of breath with activity, at rest is okay GERD (gastroesophageal reflux disease) controlled, stable per pt Hepatic steatosis History of shingles 05/2022, PRN gabapentin for chronic right eye irritation/pain from shingles Hx of seasonal allergies Hypertension controlled, stable per pt Kidney disease following with [facility] Nephrology. On home oxygen therapy 2 LPM at Plaque psoriasis Sleep apnea no device Spinal stenosis Tobacco use disorder Past Family History Family History Father Diabetes Past Surgical History Surgical History History of back surgery lumbar > "bone spur shaving" History of cardiac catheterization 02/2023 [facility]. no stents. History of esophagogastroduodenoscopy (EGD) Hx of arthroscopic knee surgery Left Hx of foot surgery Left Hx of inguinal hernia repair Social History Smoking Status: Former smoker tobacco type: cigarettes Do You Dip or Chew Tobacco: Yes Smoking End Date: november 28, 2023 Hx Alcohol Use: Yes Alcohol type: hard liquor alcohol intake frequency: a few times a week Hx Substance Use: No substance use type: does not use Lab Results Anesthesia Preop Results Results Anesthesia Widget: WBC 4.71 K/ul (4.8-10.8) L 12/28/23 Hgb 12.5 g/dl (14.0-18.0) L 12/28/23 Hct 37.5 % (42.0-52.0) L 12/28/23 Plt 325 K/uL (130-400) 12/28/23 Na 139 mmol/L (136-145) 12/28/23 K 4.0 mmol/L (3.5-5.1) 12/28/23 Cl 103 mmol/L (98-107) 12/28/23 CO2 27 mmol/L (21-32) 12/28/23 BUN 14 mg/dl (6-23) 12/28/23 Creat 0.99 mg/dl (0.6-1.4) 12/28/23 Glucose Level 109 mg/dl (70-99(Fasting)) H 12/28/23 PT 10.4 Seconds (9.0-12.0) 12/28/23 PTT 28 Seconds (21-31) 11/19/23 INR 0.9 (0.9-1.1) 12/28/23 Urine Color Yellow 12/28/23 Urine Appearance Clear (Clear) 12/28/23 Urine pH 7.0 (4.5-7.5) 12/28/23 Urine Specific [place] 1.008 (1.000-1.030) 12/28/23 Urine Protein Negative (Negative) 12/28/23 Urine Glucose (UA) Negative (Negative) 12/28/23 Urine Ketones Negative (Negative) 12/28/23 Urine Blood Negative (Negative) 12/28/23 Urine Nitrite Negative (Negative) 12/28/23 Urine Bilirubin Negative (Negative) 12/28/23 Urine Urobilinogen Negative (Negative) 12/28/23 Urine Leukocyte Esterase Negative (Negative) 12/28/23 Coronavirus OC43 (PCR) Not Detected (NotDetected) 11/19/23 Coronavirus HKU1 (PCR) Not Detected (NotDetected) 11/19/23 Coronavirus 229E (PCR) Not Detected (NotDetected) 11/19/23 COVID-19 PCR NEGATIVE (Negative) 11/29/23 Coronavirus NL63 (PCR) Not Detected (NotDetected) 11/19/23 Testing Electrocardiogram Date: 12/02/23 Poor data quality NSR, rate 99 bpm Left axis deviation RBBB Chest X-Ray Date: 12/06/23 *1view* Improvement in the lower lobe interstitial opacities suggesting a resolving pneumonia. Echocardiogram Date: 12/03/23 EF 65-70% No LV regional wall motion abnormalities Mild cLVH Grade I diastolic dysfunction No significant valvular pathology Cardiac Catheterization Date: 03/09/23 Left main: normal LAD: proximal 20% and mid 30% focal stenosis Cx: mid 40% distal to OM1, (followed by diffuse luminal irregularities, 20%) and distal 30% stenosis RCA: proximal 10% and mid up to 30% stenosis Recommendations: medical therapy Other Testing Chest CTA 12/01/23 1. No pulmonary emboli identified. 2. Innumerable lower lobe predominant tree-in-bud/centrilobular pulmonary nodules. The findings favor an infectious etiology such as bronchiolitis. Although less likely, aspiration pneumonitis could have a similar imaging appearance. 3. Mild emphysema.
[~2024-01-13 08:54] MED LIST: DEXAMETHASONE SOD INJ 4 MG/ML VIAL ONE; GLYCOPYRROLATE 0.2 MG/ML VIAL ONE; LIDOCAINE 2% 2 ML VIAL/AMP(20MG/ML) INFIL ONE; MIDAZOLAM HCL 1 MG/ML 2ML VIAL ONE; ONDANSETRON INJ 2 MG/ML 2 ML VIAL ONE; PROPOFOL IV EMULSION 10 MG/ML 20 ML VIAL IV ONE; ROCURONIUM BROMIDE 10 MG/ML 5 ML VIAL IV ONE; SUGAMMADEX SODIUM 200 MG/2 ML VIAL IV ONE; fentaNYL citrate PF 100 MCG/2 ML VIAL ONE
[2024-01-13] MEDS: LR 60ML/HR IV SCH (09:10)
[2024-01-13] MEDS: LR 15ML/HR IV SCH (09:35)
[2024-01-13] MEDS: CeleBREX 200 MG CAP PO SCH (09:35)
[2024-01-13] MEDS: ACETAMINOPHEN 500 MG TAB PO SCH (09:35)
[2024-01-13] MEDS: GABAPENTIN 600 MG DOSE PO SCH (09:35)
--- NOTE | 2024-01-13 10:40 | History & Physical Bridge Note ---
Date of Service January 13, 2024 History & Physical Bridge Note I have examined the patient, reviewed the History & Physical and in the interval since the performance of the History & Physical I have noted the following changes of clinical significance: no changes noted
--- NOTE | 2024-01-13 10:41 | History & Physical Report ---
Date of Service January 13, 2024 Assessment & Plan (1) Neurogenic claudication due to lumbar spinal stenosis: Plan: L3-S1 decompression and fusion History of Present Illness Chief Complaint: Back and bilateral leg pain Primary Care Provider: Omer Wayne MD This is a 58-year-old male who presents with chronic persistent back and bilateral leg pain and failing since course of nonoperative care is here for surgical invention. Allergies Allergy/AdvReac Type Severity Reaction Status Date / Time TONIA Inhibitors AdvReac Severe ALESSANDRO Verified 01/13/24 09:28 ARB-Angiotensin Receptor AdvReac Severe ALESSANDRO Verified 12/28/23 09:35 Antagonist prednisone AdvReac Mild "jitterines Verified 12/28/23 09:35 s" Home Medications Medication Instructions Recorded Confirmed Type albuterol sulfate 90 mcg/actuation 2 puff inhalation Q4H PRN 03/09/23 01/13/24 Rx aerosol inhaler Shortness Of Breath Or Wheezing #8.5 grams aspirin 81 mg tablet,delayed 81 mg PO QAM #30 tabs 03/09/23 01/13/24 Rx release atorvastatin 80 mg tablet 80 mg PO QAM 03/16/23 01/13/24 History baclofen 10 mg tablet 10 mg PO TID PRN Muscle Spasm 06/09/23 01/13/24 History gabapentin 300 mg capsule 300 mg PO TID PRN Pain 06/09/23 01/13/24 History ipratropium 0.5 mg-albuterol 3 mg 3 ml inhalation Q6H PRN 06/11/23 01/13/24 Rx (2.5 mg base)/3 mL nebulization wheezing/severe shortness of soln breath #90 mL furosemide 20 mg tablet 20 mg PO QAM 10/14/23 01/13/24 History potassium chloride 20 mEq 20 meq PO QAM 10/14/23 01/13/24 History tablet,extended release folic acid 1 mg tablet 1 mg PO QAM #30 tabs 12/07/23 01/13/24 Rx guaifenesin 600 mg tablet, 600 mg PO BID #60 tabs 12/07/23 01/13/24 Rx extended release 12 hr (Mucinex) prednisone 20 mg tablet 20 mg PO DAILY #3 tabs 12/07/23 01/13/24 Rx sodium chloride 7 % for 4 ml inhalation BIDR 12/07/23 01/13/24 Rx nebulization secretion/mucus clearance #240 mL buspirone 5 mg tablet 5 mg PO TID PRN Anxiety 12/28/23 01/13/24 History carvedilol 12.5 mg tablet 25 mg PO BID 12/28/23 01/13/24 History fluticasone fur. 200 mcg-umeclid 1 inh inhalation QAM 12/28/23 01/13/24 History 62.5 mcg-vilant 25 mcg inhalat.powder (Trelegy Ellipta) Past Med/Surg History Medical History Acute respiratory failure with hypoxia hospitalized at [facility] November 2023 for this, still having some shortness of breath with activity, at rest is okay Anemia CAD (coronary artery disease) Chronic obstructive pulmonary disease hospitalized at [facility] November 2023 for this, still having some shortness of breath with activity, at rest is okay GERD (gastroesophageal reflux disease) controlled, stable per pt Hepatic steatosis History of shingles 05/2022, PRN gabapentin for chronic right eye irritation/pain from shingles Hx of seasonal allergies Hypertension controlled, stable per pt Kidney disease following with [facility] Nephrology. On home oxygen therapy 2 LPM at Plaque psoriasis Sleep apnea no device Spinal stenosis Tobacco use disorder Surgical History History of back surgery lumbar > "bone spur shaving" History of cardiac catheterization 02/2023 [facility]. no stents. History of esophagogastroduodenoscopy (EGD) Hx of arthroscopic knee surgery Left Hx of foot surgery Left Hx of inguinal hernia repair Family History Father Diabetes Social History Smoking Status: Former smoker Tobacco Type: Cigarettes Smoking End Date: november 28, 2023; Second Hand Exposure: No; Do You Dip or Chew Tobacco: Yes; Tobacco Cessation Education Requested by Patient: No Hx Alcohol Use: Yes Alcohol type: hard liquor Alcohol Intake Frequency: 4 or More x per/Week Alcohol Intake Frequency Comment: 2-12 beers 5x/week Hx Substance Use: No Preferred Language: Kittitian Communication Ability: Effective 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
[2024-01-13] MEDS ORDERED: HYDROmorphone INJ 1 MG/ML SYRINGE IV PRN (10:42)
[2024-01-13] MEDS ORDERED: ATROPINE SULFATE 0.1 MG/ML 10ML SYR IV PRN (10:42)
[2024-01-13] MEDS ORDERED: ALBUTEROL 0.083% NEBU SOLN 3 ML VIAL INH PRN (10:42)
[2024-01-13] MEDS ORDERED: ONDANSETRON INJ 2 MG/ML 2 ML VIAL IV PRN ×2 (10:42→14:33)
[2024-01-13] MEDS ORDERED: DROPERIDOL 5 MG/2 ML VIAL IV PRN (10:42)
[2024-01-13] MEDS: ceFAZolin 2000MG 2,000 MG/15 ML SYR IV SCH ×2 (11:13→20:15)
[2024-01-13] MEDS ORDERED: ePHEDrine sulfate 50 MG/ML AMP ONE (11:59)
[2024-01-13] MEDS: ceFAZolin 330 MG/ML 1 GM VIAL ONE (12:02)
[2024-01-13] MEDS: BUPIVACAINE/EPINEPHRINE 0.25% 1:200,000 30 ML VIAL ONE (12:03)
[2024-01-13] MEDS: FLOSEAL HEMOSTATIC MATRIX 10ML TOP ONE (13:05)
--- NOTE | 2024-01-13 13:15 | Operative Report ---
Post Operative Report Pre & Post Diagnosis Operation Date: 01/13/24 10:35 Pre-Op Diagnosis: #1 lumbar disc herniation with radiculopathy #2 lumbar spondylolisthesis L4-L5 #3 lumbar spinal stenosis with neurogenic claudication Post-Op Diagnosis: Same I identified the patient and participated in the time-out.: Yes Procedure Operation Date: 01/13/24 10:35 Actual Procedures #1 revision decompression with bilateral medial facetectomies and foraminotomies L2-L3, L3-L4 and L4-L5. #2 posterior spinal fusion L3-L5. #3 placed posterior instrumentation L3-L5. #4 interbody fusion L3-L4 L4-L5. #5 placement Spira 14 x 26 mm cage at L3-L4 and 11 x 26 mm cage at L4-5. #6 placement locally harvested morselized autograft in the posterior gutters. #7 placement infuse collagen sponge combined with Koros bone graft in the posterior lateral gutters and Morpheus bone graft interbody space. Surgeon Ronn Brenner, Copy Center Associate Gosia Nogueira Estimated Blood Loss 100 Findings Consistent with Post-Op Diagnosis Specimens None Indications This is a 58-year-old male who presents above-mentioned diagnosis after failing since course of nonoperative care is here for surgical invention. Description of Procedure Patient was met with identified informed consent obtained. Patient was then taken to the operative suite underwent intubation placed in a prone position on the Ori table atop the Duarte frame. All bony prominences well-padded eyes inspected to ensure no external pressure placed upon them. This point the lumbar spine was prepped and draped in the normal sterile fashion. Sharp dissection with assistance of Bovie cautery was performed down to and exposing the remaining lamina and transverse processes of L3-L4 and L5 bilaterally. From a caudal to cephalad fashion revision decompression of L4-L5 was performed including bilateral medial facetectomies and foraminotomies. This included removal of the disc herniation of L4-5 on the left. Complete laminectomy of L3 was performed including bilateral medial facetectomies and foraminotomies L3-L4 and lastly partial laminectomy of L2 was performed including bilateral medial facetectomies of L3-L4. Pedicle screws were then placed in L3 L4-5 bilaterally with assistance of fluoroscopy in the process nicho contoured and placed. By way the transforaminal approach the left complete discectomy L4-5 was performed endplates guided to subcortically bone and a 11 x 26 mm Spira cage filled with Morpheus bone graft tapped in position. Then proceeded to L3-L4 transforaminal region on the left. A complete discectomy was performed endplates guided to subcortically bone and a 14 x 26 mm Spira cage filled with Morpheus bone graft tapped in position. The rods then compressed locked into final position bilaterally. The transverse processes of L3 L4-5 burred to subcortical bleeding bone. Infuse collagen sponge combined with Koros and locally harvested morselized autograft placed in the posterior lateral gutters. 15 round ATTILA drain inserted. The incision was then closed with 1 Vicryl the fascia 2-0 Vicryl subcutaneously and 4 Monocryl for final skin closure. Steri-Strips sterile dressing placed. Patient waken taken to PACU in stable condition. Please note spinal cord monitoring was utilized at the procedure no changes noted. Lastly Calin Nogueira was present at the entire surgeon while the patient positioning complex course of the surgery and final skin closure. I attest to the content of the Intraoperative Record and any orders documented therein. Any exceptions are noted below.
[2024-01-13] MEDS ORDERED: fentaNYL citrate PF 100 MCG/2 ML VIAL ONE (13:18)
--- NOTE | 2024-01-13 13:32 | Fluoroscopy Report ---
FL lumbar spine 2-3V CLINICAL HISTORY: L3-S1 Decompression/fusion COMPARISON STUDY: CT lumbar spine 07/13/2023 FLUOROSCOPY TIME: 25.2 seconds FLUOROSCOPY IMAGES: 2 EXPOSURE DOSE: 21.24 mGy FINDINGS: Posterior interbody nicho and screw fusion with discectomy is noted at what appears to be the L3-S1 levels. Exact numbering is limited secondary to magnification. The images were submitted follo wing completion of the surgery. No unexpected opaque foreign bodies. IMPRESSION: Fluoroscopic assistance as above. ACT 112: Negative or not required by law. Electronically signed by: Trey Madison M.D. 01/13/2024 1:30 PM
[2024-01-13] MEDS ORDERED: ALBUTEROL HFA 8 GM INHALER INH PRN (14:33)
[2024-01-13] MEDS ORDERED: DO NOT ADMINISTER FLU VACCINE PRN (14:33)
[2024-01-13] MEDS ORDERED: diphenhydrAMINE Capsule 25 MG CAP PO PRN (14:33)
[2024-01-13] MEDS ORDERED: NALOXONE HCL 0.4 MG/1 ML VIAL/CARP IV PRN (14:33)
[2024-01-13] MEDS ORDERED: ACETAMINOPHEN 1,000 MG/100 ML VIAL IV PRN (14:33)
[2024-01-13] MEDS ORDERED: LORazepam 0.5 MG in SYRINGE 0.25 ML IV PRN (14:33)
[2024-01-13] MEDS ORDERED: LORazepam 0.5 MG TAB PO PRN (14:33)
[2024-01-13] MEDS ORDERED: PROMETHAZINE HCL 12.5 MG in SODIUM CHLORIDE 0.9% 50 ML IV PRN (14:33)
[2024-01-13] MEDS ORDERED: bisacodyL 10 MG SUPP PR PRN (14:33)
[2024-01-13] MEDS ORDERED: BACLOFEN 10 MG TAB PO PRN (14:33)
[2024-01-13] MEDS ORDERED: ALBUT/IPRATROP 3MG/0.5MG NEB 3 ML VIAL INH PRN (14:33)
[2024-01-13] MEDS ORDERED: ALUMINUM/MAGNESIUM SUSP 30 ML UDC PO PRN (14:33)
[2024-01-13] MEDS ORDERED: GABAPENTIN 300 MG CAP PO PRN (14:33)
[2024-01-13] MEDS ORDERED: DO NOT ADMINISTER PNEUMOCOCCAL VACCINE PRN (14:33)
[2024-01-13] MEDS ORDERED: MAGNESIUM HYDROXIDE SUSP 30 ML UDC PO PRN (14:33)
[2024-01-13] MEDS ORDERED: busPIRone 5 MG TAB PO PRN (14:33)
[2024-01-13] MEDS ORDERED: METOCLOPRAMIDE HCL INJ 5 MG/ML 2 ML VIAL IV PRN (14:33)
[2024-01-13] MEDS ORDERED: hydrOXYzine HCl 25 MG TAB PO PRN (14:33)
[2024-01-13] MEDS ORDERED: ONDANSETRON 4 MG OD TAB PO PRN (14:33)
[2024-01-13] MEDS ORDERED: SOD PHOSPHATE/SOD BIPHOSPHATE ENEMA 132 ML BTL PR PRN (14:33)
[2024-01-13] MEDS ORDERED: FAMOTIDINE 20 MG TAB PO PRN (14:33)
[2024-01-13] MEDS: LACTATED RINGER'S 1,000 ML IV SCH (14:59)
[2024-01-13] MEDS: HYDROmorphone INJ 0.5 MG/0.5 ML SYR IV PRN (15:04)
--- NOTE | 2024-01-13 15:09 | Consultation ---
Date of Consultation January 13, 2024 Assessment & Plan (1) Neurogenic claudication due to lumbar spinal stenosis: (2) Chronic obstructive pulmonary disease: (3) Alcohol use disorder: (4) Hypertension: (5) Obesity (BMI 30.0-34.9): Plan This is a 58-year-old male who has significant past medical history of HTN, HLD, COPD, renal artery stenosis, grade 1 diastolic dysfunction, CAD, hepatic steatosis, plaque psoriasis and tobacco dependence who presents for elective procedure by Dr. Brenner. Neurogenic claudication due to lumbar spinal stenosis Status post L3-S1 lumbar decompression fusion by Dr. Brenner, POD #0 EBL 100 mL, monitor ATTILA drain output Pain/wound management per orthopedics Activity and therapy as prescribed orthopedic Encourage incentive spirometry, wean oxygen as able, but continue oxygen overnight pre op hgb 12.5 Alcohol abuse Patient continues to persistently drink, drank 1/5 of alcohol last evening RAFA as per protocol with gabapentin taper Daily thiamine and folic acid, he is requesting a refill of this prescription at discharge Monitor closely for as needed Ativan Tobacco abuse Patient has currently abstained for the last 2 weeks Continue to encourage behavior Obstructive sleep apnea Currently following with outpatient sleep medicine Continue oxygen at at bedtime while awaiting sleep device Chronic diastolic CHF Hypertension Continue Coreg and Lasix Daily weight, strict intake and output Will need a heart healthy, low-sodium diet when advanced COPD Recent hospitalization secondary to RSV infection Continue Trelegy, DuoNeb and hypertonic saline No acute exacerbation Wean oxygen as able Anxiety Currently patient on trial of BuSpar although he states he is taking it as needed He is encouraged not to take medication in combination with alcohol Obesity BMI 30.9, encourage diet lifestyle modification when physically able DVT ppx: SCDS Full code PCP: Dr. Wayne Dispo: per primary Patient was seen and examined in collaboration with, Dr. nguyen, please see addendum A total of 45 minutes was spent coordinating, documenting, and providing care for this patient excluding time spent in the performance of separately billed services. This included personally viewing all current laboratories and imaging studies, medication reconciliation, outpatient chart review, and discussion with specialists. Thank you for this consultation. We will follow the patient with you during their hospital stay. You can reach a member of the [facility] Hospitalist Team 13/04 via hospitalist role on tiger text. Supervising Physician Co-Signing Physician Notes I have seen and discussed the case with the collaborating advanced practitioner. I agree with the above H&P. I have reviewed and confirmed the patients medical history, the findings on physical examination, and the patients diagnosis and treatment plan with Saul and agree with the information documented. In short, Mr. Jimenez is a 58-year-old male who has significant past medical history of HTN, HLD, COPD, renal artery stenosis, grade 1 diastolic dysfunction, CAD, hepatic steatosis, plaque psoriasis and tobacco dependence who presents for elective procedure by Dr. Brenner, s/p L3-L5 decompression and fusion on 01/12. Patient evaluated at bedside. Reports last drink was 01/11. Reports last BM was this morning. Denies any pain at time of exam. No acute concern, however, slightly altered as patient returned recently from procedure and recieved IV pain medication. GENERAL APPEARANCE: AxOx2-3--evaluated immediately post-op, generally well- appearing gentleman, no acute distress. ATTILA drain full on exam HEENT: NC, AT. MMM. EOMI, clear conjunctiva, oropharynx clear. NECK: Supple without lymphadenopathy. No stiffness or restricted ROM. HEART: Normal rate and regular rhythm, normal S1/S1, no m/r/g LUNGS: CTAB, moving air well. No crackles or wheezes are heard. ABDOMEN: Soft, nontender, nondistended with good bowel sounds heard. EXTREMITIES: Without cyanosis, clubbing or edema. NEUROLOGICAL: Grossly nonfocal. Alert and oriented, moving all 4 extremities. CN not formally tested but appear grossly intact. Skin: Warm and dry without any rash. -Follow hgb post op -AWSS score -Resume home meds Rest of plan as above I spent a total of 25 minutes coordinating, documenting, and providing care for this patient excluding time spent in the performance of separately billed services. All of the aforementioned completed outside of collaborating with the assigned advanced practitioner for a full treatment plan. I have reviewed the advanced practitioner's documentation, and I agree with, and take responsibility for the plan of care History of Present Illness Requesting Physician: post op medical management Reason for Consultation: Post op medical management Attending Physician: Ronn Brenner, DO History of Present Illness This is a 58-year-old male who has significant past medical history of HTN, HLD, COPD, renal artery stenosis, grade 1 diastolic dysfunction, CAD, hepatic steatosis, plaque psoriasis and tobacco dependence who presents for elective procedure by Dr. Brenner. He tolerated the procedure well. His sister is at bedside. She elicits that he drink half a gallon of alcohol last evening. He admits to drinking alcohol last night. He currently complains of incisional pain. Denies any radicular symptoms. He denies chest pain, shortness of breath, nausea, vomiting or abdominal pain. Of significance he was hospitalized approximately 1 month ago secondary to RSV infection and acute on chronic hypoxic respiratory failure. He feels his breathing is at baseline. He currently is wearing 2 L of oxygen at bedtime. He is in the process of getting set up for CPAP. He denies any recent fever, chills, sweats, chest pain, cough, mopped assist, nausea, vomiting or abdominal pain. His last bowel movement was this morning. He states he is using his nebulizers as scheduled. He quit smoking in preparation for procedure. Allergies Allergy/AdvReac Type Severity Reaction Status Date / Time TONIA Inhibitors AdvReac Severe ALESSANDRO Verified 01/13/24 09:28 ARB-Angiotensin Receptor AdvReac Severe ALESSANDRO Verified 12/28/23 09:35 Antagonist prednisone AdvReac Mild "jitterines Verified 12/28/23 09:35 s" Home Medications Medication Instructions Recorded Confirmed Type albuterol sulfate 90 mcg/actuation 2 puff inhalation Q4H PRN 03/09/23 01/13/24 Rx aerosol inhaler Shortness Of Breath Or Wheezing #8.5 grams aspirin 81 mg tablet,delayed 81 mg PO QAM #30 tabs 03/09/23 01/13/24 Rx release atorvastatin 80 mg tablet 80 mg PO QAM 03/16/23 01/13/24 History baclofen 10 mg tablet 10 mg PO TID PRN Muscle Spasm 06/09/23 01/13/24 History gabapentin 300 mg capsule 300 mg PO TID PRN Pain 06/09/23 01/13/24 History ipratropium 0.5 mg-albuterol 3 mg 3 ml inhalation Q6H PRN 06/11/23 01/13/24 Rx (2.5 mg base)/3 mL nebulization wheezing/severe shortness of soln breath #90 mL furosemide 20 mg tablet 20 mg PO QAM 10/14/23 01/13/24 History potassium chloride 20 mEq 20 meq PO QAM 10/14/23 01/13/24 History tablet,extended release folic acid 1 mg tablet 1 mg PO QAM #30 tabs 12/07/23 01/13/24 Rx guaifenesin 600 mg tablet, 600 mg PO BID #60 tabs 12/07/23 01/13/24 Rx extended release 12 hr (Mucinex) sodium chloride 7 % for 4 ml inhalation BIDR 12/07/23 01/13/24 Rx nebulization secretion/mucus clearance #240 mL buspirone 5 mg tablet 5 mg PO TID PRN Anxiety 12/28/23 01/13/24 History carvedilol 12.5 mg tablet 37.5 mg PO BID 12/28/23 01/13/24 History fluticasone fur. 200 mcg-umeclid 1 inh inhalation QAM 12/28/23 01/13/24 History 62.5 mcg-vilant 25 mcg inhalat.powder (Trelegy Ellipta) Patient History Medical History On home oxygen therapy 2 LPM at Acute respiratory failure with hypoxia hospitalized at [facility] November 2023 for this, still having some shortness of breath with activity, at rest is okay Hepatic steatosis CAD (coronary artery disease) GERD (gastroesophageal reflux disease) controlled, stable per pt Kidney disease following with [facility]. Sleep apnea no device Anemia Tobacco use disorder Plaque psoriasis Hx of seasonal allergies Spinal stenosis Chronic obstructive pulmonary disease hospitalized at [facility] November 2023 for this, still having some shortness of breath with activity, at rest is okay History of shingles 05/2022, PRN gabapentin for chronic right eye irritation/pain from shingles Hypertension controlled, stable per pt Surgical History History of cardiac catheterization 02/2023 [facility]. no stents. History of back surgery lumbar > "bone spur shaving" Hx of arthroscopic knee surgery Left Hx of foot surgery Left Hx of inguinal hernia repair History of esophagogastroduodenoscopy (EGD) Family History Father Diabetes Social History Smoking Status: Former smoker Tobacco Type: Cigarettes Smoking End Date: november 28, 2023; Second Hand Exposure: No; Do You Dip or Chew Tobacco: Yes; Tobacco Cessation Education Requested by Patient: No Hx Alcohol Use: Yes Alcohol type: hard liquor Alcohol Intake Frequency: 4 or More x per/Week Alcohol Intake Frequency Comment: 2-12 beers 5x/week Hx Substance Use: No Preferred Language: [place] Communication Ability: Effective 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 Nguyen addendum for physical exam findings. Results & Data Vital Signs (Past 12 Hours) Vital Signs Temp Pulse Pulse Resp BP BP Pulse Ox 01/13/24 14:50 36.6 C 70 16 127/85 94 01/13/24 14:33 36.6 C 69 18 131/82 93 01/13/24 14:05 76 17 138/87 95 01/13/24 13:55 36.4 C L 71 18 137/87 96 01/13/24 13:45 79 18 137/84 98 01/13/24 13:35 81 15 139/85 96 01/13/24 13:29 36.3 C L 80 18 137/84 96 01/13/24 09:48 01/13/24 09:48 36.4 C L 84 22 120/77 94 O2 Del Method O2 Flow Rate 01/13/24 14:50 Nasal Cannula 2 01/13/24 14:33 Nasal Cannula 2 01/13/24 14:05 Nasal Cannula 2 01/13/24 13:55 Nasal Cannula 2 01/13/24 13:45 Oxymask 5 01/13/24 13:35 Oxymask 5 01/13/24 13:29 Oxymask 5 01/13/24 09:48 Nasal Cannula 2 01/13/24 09:48 Room Air 2 Laboratory Results Preop labs reviewed on 12/28/2023 revealed WBC 4.71, H&H 12.5 and 37.5, platelet 325, potassium 4.0, BUN 14, creatinine 0.99 and urinalysis negative. Diagnostic Findings Lumbar Spine X-Ray 01/13/24 07:00 FL lumbar spine 2-3V CLINICAL HISTORY: L3-S1 Decompression/fusion COMPARISON STUDY: CT lumbar spine 07/13/2023 FLUOROSCOPY TIME: 25.2 seconds FLUOROSCOPY IMAGES: 2 EXPOSURE DOSE: 21.24 mGy FINDINGS: Posterior interbody nicho and screw fusion with discectomy is noted at what appears to be the L3-S1 levels. Exact numbering is limited secondary to magnification. The images were submitted following completion of the surgery. No unexpected opaque foreign bodies. IMPRESSION: Fluoroscopic assistance as above. ACT 112: Negative or not required by law. Electronically signed by: Trey Madison M.D. 01/13/2024 1:30 PM CXR: 12/06/23 IMPRESSION: Improvement in the lower lobe interstitial opacities suggesting a resolving pneumonia. Medications Administered Current Inpatient Medications Acetaminophen (Acetaminophen 500 Mg Tab) 1,000 mg PO PREOP [facility]DA Stop: 01/13/24 18:00 Last Admin: 01/13/24 09:35 Dose: 1,000 mg Acetaminophen (Acetaminophen 500 Mg Tab) 1,000 mg PO Q8H PRN PRN Reason: MILD Pain Scale 1,2,3 & Pre PT Stop: 02/12/24 14:32 Al Hydrox/Mg Hydrox/Simethicone (Aluminum/Magnesium Susp 30 Ml Udc) 30 ml PO Q6H PRN PRN Reason: Dyspepsia Stop: 02/12/24 14:32 Albuterol (Albuterol 0.083% Nebu Soln 3 Ml Vial) 2.5 mg INH ONCE PRN PRN Reason: PACU Use Only-SOB/Wheezing Stop: 01/13/24 18:43 Albuterol (Albuterol Hfa 8 Gm Inhaler) 2 puffs INH Q4H PRN PRN Reason: Shortness Of Breath Or Wheezin Stop: 02/12/24 14:32 Albuterol (Albut/Ipratrop 3mg/0.5mg Neb 3 Ml Vial) 3 ml INH Q6H PRN; Protocol PRN Reason: wheezing/severe shortness of breath Stop: 02/12/24 14:32 Aspirin (Aspirin 81 Mg Ectab) 81 mg PO QAM [facility] Stop: 02/13/24 08:59 Atorvastatin Calcium (Atorvastatin 40 Mg Tab) 80 mg PO QAM [facility] Stop: 02/13/24 08:59 Atropine Sulfate (Atropine Sulfate 0.1 Mg/Ml 10ml Syr) 0.5 mg IV Q1M PRN PRN Reason: PACU Use-HR<40 &/or Bradycardi Stop: 01/13/24 18:42 Baclofen (Baclofen 10 Mg Tab) 10 mg PO TID PRN PRN Reason: Muscle Spasm Stop: 02/12/24 14:32 Bisacodyl (Bisacodyl 10 Mg Supp) 10 mg UT DAILY PRN PRN Reason: Constipation Stop: 02/12/24 14:32 Buspirone HCl (Buspirone 5 Mg Tab) 5 mg PO TID PRN PRN Reason: Anxiety Stop: 02/12/24 14:32 Carvedilol (Carvedilol 25 Mg Tab) 25 mg PO BID [facility] Stop: 02/12/24 20:59 Celecoxib (Celebrex 200 Mg Cap) 200 mg PO PREOP [facility] Stop: 01/13/24 18:00 Last Admin: 01/13/24 09:35 Dose: 200 mg Diphenhydramine HCl (Diphenhydramine Capsule 25 Mg Cap) 25 mg PO Q6H PRN PRN Reason: Allergic Rhinitis/Insomnia Stop: 02/12/24 14:32 Droperidol (Droperidol 5 Mg/2 Ml Vial) 0.625 mg IV ONCE PRN PRN Reason: PACU Use Only for Nausea Stop: 01/13/24 18:43 Famotidine (Famotidine 20 Mg Tab) 20 mg PO Q12H PRN PRN Reason: Dyspepsia Stop: 02/12/24 14:32 Fluticasone Furoate (Fluticasone Furoate 200mcg 14 Puffs/Inhaler) 1 puffs INH DAILY [facility] Stop: 02/13/24 08:59 Folic Acid (Folic Acid 1 Mg Tab) 1 mg PO QAM [facility] Stop: 02/13/24 08:59 Furosemide (Furosemide 20 Mg Tab) 20 mg PO QAM [facility] Stop: 02/13/24 08:59 Gabapentin (Gabapentin 600 Mg Dose) 600 mg PO PREOP [facility] Stop: 01/13/24 18:00 Last Admin: 01/13/24 09:35 Dose: 600 mg Gabapentin (Gabapentin 1200mg Alcohol Withdrawal Load) 1 each PO NOW STA; Protocol Stop: 01/13/24 15:32 Gabapentin (Gabapentin 600 Mg Tab) 600 mg PO Q24H [facility] Stop: 01/17/24 04:01 Gabapentin (Gabapentin 600 Mg Tab) 600 mg PO Q12H [facility] Stop: 01/16/24 04:01 Gabapentin (Gabapentin 600 Mg Tab) 600 mg PO Q8H [facility] Stop: 01/15/24 04:01 Gabapentin (Gabapentin 600 Mg Tab) 600 mg PO Q6H [facility] Stop: 01/14/24 04:01 Gabapentin (Gabapentin 600 Mg Tab) 1,200 mg PO NOW ONE Stop: 01/13/24 15:32 Guaifenesin (Guaifenesin 600 Mg Tabcr) 600 mg PO BID [facility] Stop: 02/12/24 20:59 Hydromorphone HCl (Hydromorphone Inj 1 Mg/Ml Syringe) 0.25 mg IV Q5M PRN PRN Reason: PACU Use Only-Pain Stop: 01/13/24 18:43 Hydromorphone HCl (Hydromorphone Inj 0.5 Mg/0.5 Ml Syr) 0.5 mg IV Q3H PRN PRN Reason: MODERATE Pain (Scale 4,5,6) & Pre PT Stop: 01/27/24 14:32 Last Admin: 01/13/24 15:04 Dose: 0.5 mg Hydromorphone HCl (Hydromorphone Inj 1 Mg/Ml Syringe) 1 mg IV Q3H PRN PRN Reason: SEVERE Pain (Scale 7,8,9,10) Stop: 01/27/24 14:32 Hydroxyzine HCl (Hydroxyzine Hcl 25 Mg Tab) 25 mg PO Q8H PRN PRN Reason: Anxiety Stop: 02/12/24 14:32 Lactated Ringer's (Lr) 1,000 mls @ 15 mls/hr IV .Q24H [facility] Stop: 01/14/24 05:59 Last Infusion: 01/13/24 11:11 Dose: Infused Lactated Ringer's (Lr) 1,000 mls @ 60 mls/hr IV .[id number] [facility] Stop: 01/13/24 22:39 Last Admin: 01/13/24 09:10 Dose: Not Given Cefazolin Sodium (Ancef 2000mg) 2,000 mg in 15 mls @ 3.75 mls/min IV PREOP [facility]; Protocol Stop: 01/13/24 18:00 Last Admin: 01/13/24 11:13 Dose: 3.75 mls/min Lactated Ringer's (Lr) 1,000 mls @ 150 mls/hr IV .Q6H40M [facility] Stop: 02/12/24 14:32 Last Admin: 01/13/24 14:59 Dose: 150 mls/hr Promethazine HCl 12.5 mg/ (Sodium Chloride) 50.5 mls @ 202 mls/hr IV Q6H PRN PRN Reason: Nausea &/or Vomiting Stop: 02/12/24 14:32 Acetaminophen (Ofirmev) 1,000 mg in 100 mls @ 400 mls/hr IV Q8H PRN PRN Reason: Pain Rating 1-3 & Pre PT Stop: 01/14/24 14:33 Cefazolin Sodium (Ancef 2000mg) 2,000 mg in 15 mls @ 3.75 mls/min IV Q8H [facility]; Protocol Stop: 01/14/24 03:33 Lorazepam 0.5 mg/ Syringe 0.5 mls @ 2 mls/min IV Q8H PRN; Protocol PRN Reason: Sedation/Anxiety Stop: 02/12/24 14:32 Dexamethasone 6 mg/ Syringe 1.5 mls @ 1 mls/min IV DAILY [facility] Stop: 01/16/24 09:02 Influenza Virus Vaccine Quadrival (Do Not Administer Flu Vaccine) 1 each N/A PRN PRN PRN Reason: Notification Stop: 02/12/24 14:32 Lorazepam (Lorazepam 0.5 Mg Tab) 0.5 mg PO Q8H PRN PRN Reason: Sedation/Anxiety Stop: 02/12/24 14:32 Magnesium Hydroxide (Magnesium Hydroxide Susp 30 Ml Udc) 30 ml PO Q24H PRN PRN Reason: Constipation Stop: 02/12/24 14:32 Metoclopramide HCl (Metoclopramide Hcl Inj 5 Mg/Ml 2 Ml Vial) 10 mg IV Q6H PRN PRN Reason: Nausea &/or Vomiting Stop: 02/12/24 14:32 Naloxone HCl (Naloxone Hcl 0.4 Mg/1 Ml Vial/Carp) 0.1 mg IV Q5M PRN PRN Reason: Oversedation/Resp depression Stop: 02/12/24 14:32 Ondansetron HCl (Ondansetron Inj 2 Mg/Ml 2 Ml Vial) 4 mg IV ONCE PRN PRN Reason: PACU Use Only-Nausea/Vomiting Stop: 01/13/24 18:43 Ondansetron HCl (Ondansetron Inj 2 Mg/Ml 2 Ml Vial) 4 mg IV Q6H PRN PRN Reason: Nausea &/or Vomiting Stop: 02/12/24 14:32 Ondansetron HCl (Ondansetron 4 Mg Od Tab) 4 mg PO Q6H PRN PRN Reason: Nausea Stop: 02/12/24 14:32 Oxycodone HCl (Oxycodone Hcl Ir 5 Mg Tab (Immediate Release)) 5 - 10 mg PO Q4H PRN PRN Reason: Pain & Pre PT Stop: 01/27/24 14:32 Pneumococcal Polyvalent Vaccine (Do Not Administer Pneumococcal Vaccine) 1 each N/A PRN PRN PRN Reason: Notification Stop: 02/12/24 14:32 Polyethylene Glycol (Polyethylene (Miralax) 17 Gm Pack) 17 gm PO Q6 [facility] Stop: 02/13/24 05:59 Potassium Chloride (Potassium Chloride Crtab 20 Meq Tabcr) 20 meq PO QAM [facility] Stop: 02/13/24 08:59 Senna/Docusate Sodium (Docusate Sodium/Senna 50/8.6mg Tab) 2 tab PO HS [facility] Stop: 02/12/24 20:59 Sodium Biphosphate/Sodium Phosphate (Sod Phosphate/Sod Biphosphate Enema 132 Ml Btl) 132 ml UT ONE PRN PRN Reason: Constipation Stop: 02/12/24 14:32 Sodium Chloride (Sodium Chlor 7% 4 Ml Neb) 4 ml INH BIDR [facility] Stop: 02/12/24 18:59 Thiamine HCl (Thiamine Hcl 100 Mg Tab) 100 mg PO QAM [facility] Stop: 02/13/24 08:59 Tramadol HCl (Tramadol Hcl 50 Mg Tablet) 50 - 100 mg PO Q4H PRN PRN Reason: Moderate-Severe pain & Pre PT Stop: 02/12/24 14:32 Umeclidinium/Vilanterol (Umeclidinium/Vilanterol 62.5/25mcg 7 Puffs/Inhaler) 1 puffs INH DAILY [facility] Stop: 02/13/24 08:59 ECG Rate (beats per minute): 99 Rhythm: normal sinus Additional Comments: I have independently reviewed and interpreted patient's admitting EKG which revealed: 99, NSR, RBBB, no st or t wave depression (2) Chronic obstructive pulmonary disease COPD type: COPD with acute exacerbation Qualified Code(s): J44.1 - Chronic obstructive pulmonary disease with (acute) exacerbation
--- NOTE | 2024-01-13 15:33 | Anesthesiology Progress Note ---
Date of Service January 13, 2024 Anesthesia Post Procedure Vital Signs Vital Signs: Temp Pulse Pulse Resp BP BP Pulse Ox 01/13/24 15:20 36.6 C 73 16 144/91 H 96 01/13/24 14:50 36.6 C 70 16 127/85 94 01/13/24 14:33 36.6 C 69 18 131/82 93 01/13/24 14:05 76 17 138/87 95 01/13/24 13:55 36.4 C L 71 18 137/87 96 01/13/24 13:45 79 18 137/84 98 01/13/24 13:35 81 15 139/85 96 01/13/24 13:29 36.3 C L 80 18 137/84 96 01/13/24 09:48 01/13/24 09:48 36.4 C L 84 22 120/77 94 O2 Del Method O2 Flow Rate 01/13/24 15:20 Nasal Cannula 2 01/13/24 14:50 Nasal Cannula 2 01/13/24 14:33 Nasal Cannula 2 01/13/24 14:05 Nasal Cannula 2 01/13/24 13:55 Nasal Cannula 2 01/13/24 13:45 Oxymask 5 01/13/24 13:35 Oxymask 5 01/13/24 13:29 Oxymask 5 01/13/24 09:48 Nasal Cannula 2 01/13/24 09:48 Room Air 2 Pain Intensity Back: Pain Intensity: 6 Transfer of Care Handoff Completed per policy Notes Mental Status: alert / awake / arousable Patient Amnestic to Procedure: Yes Nausea / Vomiting: adequately controlled Pain: adequately controlled Airway Patency, RR, SpO2: stable & adequate BP & HR: stable & adequate Hydration State: stable & adequate Anesthetic Complications: no major complications apparent
[2024-01-13] MEDS: GABAPENTIN 600 MG TAB PO ONE (16:23)
[2024-01-13] MEDS: GABAPENTIN 1200MG ALCOHOL WITHDRAWAL LOAD PO STA (16:24)
[2024-01-13] MEDS: traMADol HCL 50 MG TABLET PO PRN (16:27)
[2024-01-13] MEDS: oxyCODONE HCL IR 5 MG TAB (IMMEDIATE RELEASE) PO PRN (17:39)
[2024-01-13] MEDS: HYDROmorphone INJ 1 MG/ML SYRINGE IV PRN (20:15)
[2024-01-13] MEDS: carvediloL 12.5 MG TAB PO SCH (20:16)
[2024-01-13] MEDS: DOCUSATE SODIUM/SENNA 50/8.6MG TAB PO SCH (20:17)
[2024-01-13] MEDS: guaiFENesin 600 MG TABCR PO SCH (20:17)
[2024-01-13] MEDS: SODIUM CHLOR 7% 4 ML NEB INH SCH (20:34)
[2024-01-13] MEDS ORDERED: carvediloL 25 MG TAB PO SCH (21:00)
[2024-01-13] MEDS: GABAPENTIN 600 MG TAB PO SCH (21:21)
--- OUTSIDE RECORDS SUMMARY | 2024-01-13 21:48 | External Medical Summary | Summary of Care ---
Author Name Unknown Organization [facility] Address [address] [facility] [place] [address] Phone [phone] Care Team Providers Care Fisher Crab Name Role Phone Omer Wayne MD Primary Care Provider [phone]- [phone] Reason for Visit * Reason Comments Sleep Problems Encounter Details Date Type Department Care Team (Late st Contact Info) Description 12/30/2023 1:00 PM EDT PulmDiagnostic Sleep Lab, [facility] [address], [place] [id number] [facility], Sleep Med Home Study [address] [place] [address] Obstructive sleep apnea [G47.33]* Allergies Active Allergy Reactions Criticality Noted Date Comments Onel Inhibitors 10/22/2023 To be avoided due to bilateral renal artery stenosis and worsening kidney function when on previously Prednisone 04/07/2023 documented as of this encounter (statuses as of 01/06/2024) Medications Medication Sig Dispensed Refills Start Date End Date Status EQ Aspirin Adult Low Dose 81 MG Oral Tablet Delayed ReleaseIndications: Coronary artery disease involving jamul coronary artery of jamul heart without angina pectoris Take 1 Tablet [...] Oral Tablet (Lipitor)Indication s:Coronary artery disease involving jamul coronary artery of jamul heart without angina pectoris Take 1 Tablet by mouth in the morning. 90 Tablet 3 04/07/2023 Active Baclofen 10 MG Oral Tablet (Lioresal) [...] of Breath. 180 mL 3 10/09/2023 Active Carvedilol 12.5 MG Oral Tablet (Coreg) 3 tabs by mouth twice per day 0 12/09/2023 Active documented as of this encounter (statuses as of 01/06/2024) Active Problems Problem Noted Date Diagnosed Date COPD, group D, by GOLD 2017 classification 11/29 Overview: Per COPD GOLD Classification Pulmonary emphysema 10/26/2023 Renal artery stenosis 10/22/2023 Hypertensive heart disease w ith chronic diastolic congestive heart failure 10/21/2023 Coronary artery disease invo lving jamul heart without angina pectoris 06/08/2023 Hepatic steatosis 04/27/2023 Anemia 04/07/2023 Elevated transaminase level 04/07/2023 Osteoarthritis of hand, left 04/07/2023 Tobacco dependence 04/07/2023 Grade I diastolic dysfunction 04/07/2023 Hypertensive left ventricula r hypertrophy, without heart failure 04/07/2023 History of acute renal failure 04/07/2023 Lymphedema 04/07/2023 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 Overview: Sebopsoriasis and scalp psoriasis too Essential hypertension with goal blood pressure less than 140/90 07/24/2011 Dyslipidemia, goal LDL below 70 documented as of this encounter (statuses as of 01/06/2024) Resolved Problems Problem Noted Date Diagnosed Date Resolved Date Pulmonary emphysema 10/26/2023 12/28/19 24 Acute renal failure 04/07/2023 10/22/19 24 ALESSANDRO (acute kidney injury) 04/07/2023 Elevated troponin 04/07/2023 10/22/2023 Hypercalcemia 04/07/2023 10/22/2023 Internal hemorrhoid, bleeding 04/07/2023 10/22/2023 Chronic obstructive pulmonary disease 03/27/2023 12/03/2023 Overview: Per COPD GOLD Classification Neurogenic claudication 03/15/201509/21 Neurogenic claudication 03/15/201510/2017 Pain [...] as of this encounter (statuses as of 01/06/2024) Social History Tobacco Use Types Packs/Day Years Used Date Smoking Tobacco: Former Cigarettes 1.5 42 Passive Smoke Exposure: Current Smokeless Tobacco: Never Comments:began at age 15 Alcohol Use Standard Drinks/Week Comments Yes 0 (1 standard drink = 0.6 oz pur e alcohol) one day a week on weekends PHQ-2 Answer Date Recorded PHQ Adult Total Score 1 01/01/2024 Hunger Vital Sign Answer Date Recorded Within the past 12 months, y ou worried that your food would run out before you got the money to buy more. Patient declined Within the past 12 months, t he food you bought just didn't last and you didn't have money to get more. Patient declined 08/2024 Sex and Gender Information Value Date Recorded Sex Assigned at Male 01/01/2024 2:57 PM EDT Gender Identity Male 01/01/2024 2:57 PM EDT Sexual Orientation Straight 01/01/2024 2: 57 PM EDT Job Start Date Occupation Industry Not on file Not on file Not on file documented as of this encounter Progress Notes * Quin Connor MD - 01/06/2024 2:32 PM EDT Images from the original note were not included. Study Date: 12/30/2023 Patient Name: Garret Jimenez Recording Device: Anabella Garcia Sex: M : 1965 Ac ID: [id number] Age: 58 years Location: None Times and Durations Lights off clock time: 9:50:58 PM Total Recording Time (TRT): 595.4 minutes Lights on clock time: 7:27:22 AM Time In Bed (TIB): 576.4 minutes Summary FRANCISCO 52.4 OAI 29.1 ALEX 0.0 Lowest Desat 62 FRANCISCO is the number of apneas and hypopneas per hour. OAI is the number of obstructive apneas per hour. ALEX is the number of central apneas per hour. Lowest Desat is the lowest blood oxygen level that lasted at least 2 seconds. RESPIRATORY EVENTS Index (#/hour) Total # of Events Mean duration (sec) Max duration (sec) # of Events by Position Supine Prone Left Right Up Central Apneas 0.0 0 0.0 0.0 0 0 0 0 Obstructive Apneas 29.1 280 15.0 81.5 158 23 99 0 Mixed Apneas 0.0 0 0.0 0.0 0 0 0 0 Hypopneas 23.2 (3%) 223 (3%) 21.7 67.5 73 7 143 0 19.2 (4%) 184 (4%) Apneas + Hypopneas 52.4 (3%) 503 (3%) 18.0 81.5 231 30 242 0 48.3 (4%) 464 (4%) Total 52.4 (3%) 503 (3%) 18.0 81.5 231 30 242 0 48.3 (4%) 464(4%) Time in Position 237.0 24.1 315.1 0.2 AHI in Position 58.5 74.7 46.1 0.0 Oximetry Summary Dur. (min) % TIB <90 % 415.3 72.1 <85 % 228.0 39.6 <80 % 84.1 14.6 <70 % 4.8 0.8 Total Dur (min) < 89 380.1 min Average (%) 85 Total # of Desats 503 Desat Index (#/hour) 52.7 Desat Max (%) 29 Desat Max dur (sec) 111.0 Lowest SpO2 % during sleep 62 Duration of Min SpO2 (sec) 3 Heart Rate Stats Mean HR during sleep 86.2 (BPM) Highest HR during recording 104 (BPM) Technical Considerations: Following the clinical guidelines for the use of unattended portable monitors in the diagnosis of obstructive sleep apnea in adult patients published by the Portable Monitoring Task Force of the [employer] published in the Journal of Clinical Sleep Medicine in 2007, this study was recorded using a Type 3 device (Fusion Sheep). Breathing effort, airflow, oxygen saturations, pulse, body position and patient events were monitored. Raw data was scored by a registered mechanical technologist and reviewed by a sleep physician. The sleep stage and event scoring was based on the AASM Manual for the Scoring of Sleep and Associated Events 2007 edition. Apneas are defined as a drop in the peak thermal sensor excursion by > 90% of baseline for at least 10 seconds. Hypopneas were scored using the 4% oxygen desaturation rule (4A-Medicare) and a decrease in the nasal pressure excursions by > 30% of baseline for at least 10 seconds. An apnea hypopnea index (AHI) > 15 events per hour is considered diagnostic of obstructive sleep apnea in association with a high clinical pre-test clinical probability. An AHI < 15 events an hour with a high clinical probability is considered inconclusive and requires further testing with an in laboratory polysomnography. Please note that portable monitoring is inadequate to diagnose central sleep apnea because we are unable to differentiate physiologic post-arousal events from a pathological form of central apnea; this is because electroencephalogram is not used in this type of study. Clinical Considerations: This is a 58-year-old year old gentleman with a high clinical suspicion for obstructive sleep apnea. Comorbidities that may limit the accuracy of the study were ruled out. These comorbidities includebut are not completely limited to morbid obesity, narcotic analgesic use, cardiac disease, pulmonary pathology, neuromuscular disease, Raynaud's and neurological abnormalities. This test is not indicated for commercial drivers, pilots, locomotive engineers or others requiring Department of Transportation, Federal Aviation Administration or Department of Defense because tampering with the study hiro major concern. IMPRESSION: 1-The diagnosis of severe sleep apnea is supported based on the reported Apnea- Hypopnea Index (AHI=52.4). 2- Oxygen saturation was < 90% for more than 5 minutes. Minimum oxygen saturation was 62 %, and mean oxygen saturation was below listed norms, which suggests hypoxemia. RECOMMENDATION: 1-Auto-PAP vs CPAP titration study. 2-Avoidance of alcohol and sedatives. Thank you for the courtesy of this referral, Quin Connor MD YONATAN Certified Internal/Sleep Medicine documented in this encounter Plan of Treatment Upcoming Encounters Date Type Department Care Team (Late st Contact Info) Description 06/14/2024 11:40 AM EDT Office Visit [facility] [address] [place] [address] Omer Wayne MD [address] [place] [address] Scheduled Orders Name Type Priority Associated Diagnoses Orde r Schedule SLEEP TEST W/ TYPE 3 PORTABLE MONITOR, 4 CHANNEL; AT HOME Procedures Routine Habitual snoring Obstructive sleep apnea Sleep related gastroesophageal reflux disease Morning headache Insomnia, unspecified type COPD, group D, by GOLD 2017 classification ([facility]) BMI 32.0-32.9,adult Nocturnal hypoxemia Ordered: 12/30/2023 Health Maintenance Due Date Last Done Comments Pneumococcal Vaccine: Pediatrics (0 to 5 Years) and At-Risk Patients (6 to 64 Years) (1 of 2 - PCV) 1969 Alpha-1 Antitrypsin 1981 Cologuard 2008 Colonoscopy 2008 Colorectal Cancer Screening 2008 Fecal Occult Blood Test 2008 Sigmoidoscopy 2008 COVID-19 Vaccine ( season) 2023 Influenza Vaccine (FLU shot) (Season Ended) 2024 GFR 10/01/2024 10/01/2023, 03/2024, 09/09/2023, Additional history exists Depression Screening 12/31/2024 01/01/2024 O2 ASSESSMENT COMPLETED IN PAST YEAR FOR COPD 01/03/2025 01/04/2024 Diabetes Screening 10/01/2026 10/01/2023, 0 09/27/2023, 06/19/2023, Additional history exists Albumin/Creatinine Ratio 10/28/2026 10/28/2023, 02/20 DTaP,Tdap,and Td Vaccines (2 - Td or Tdap) 01/21/2028 01/20/2018 (Declined) GARDASIL-HPV IMMUNIZATION SERIES Aged Out No longer eligible based on patient's age to complete this topic HIV Screening Discontinued Hepatitis B Aged Out No longer eligi ble based on patient's age to complete this topic Hepatitis C Screening Discontinued MENINGOCOCCAL (MENACTRA/MENVEO) Aged Out No longer eligible based on patient's age to complete this topic Zoster Vaccines Discontinued documented as of this encounter Medical Devices Implanted Type Area Cant Hooker Device Identifier Shelf Expiration Date Model / Serial / Lot Mesh Plug Prefix Lg [id number] - [id number] Implanted:Qty: 1 on 03/12/2018 by Donovan Raza MD at OR [facility] Right: Groin CR BARD : DAVOL 10/21/2018 [id number] / / [id number] documented as of this encounter Visit Diagnoses Diagnosis Obstructive sleep apnea [G47.33]- Primary Obstructive sleep apnea (adult) (pediatric) documented in this encounter Care Teams Fisher Crab Relationship Specialty Start Date End Date Omer Wayne MD [address] [facility] [address] PCP - General 02/19/05 documented as of this encounter
--- OUTSIDE RECORDS SUMMARY | 2024-01-13 21:48 | External Medical Summary | Summary of Care ---
Author Name Unknown Organization [facility] Address [address] [place] [address] Phone [phone] Care Team Providers Care Partner Cco Name Role Phone Omer Wayne MD Primary Care Provider +1- [phone] Reason for Visit * Reason Comments COPD Emphysema Encounter Details Date Type Department Care Team (Latest Contact Info) Description 01/04/2024 12:20 PM EDT Office Visit Pulmonary Medicine, Health system [address] [facility] [place] [address] Colton Montana, DO [address] [place] [address] COPD, group D, by GOLD 2017 classification ([facility])*; History of tobacco use; SAROJ (obstructive sleep apnea) Allergies Active Allergy Reactions Criticality Noted Date Comments Onel Inhibitors 10/22/2023 To be avoided due to bilateral renal artery stenosis and worsening kidney function when on previously Prednisone 04/07/2023 documented as of this encounter (statuses as of 01/04/2024) Medications Medication Sig Dispensed Refills Start Date End Date Status EQ Aspirin Adult Low Dose 81 MG Oral Tablet Delayed ReleaseIndications: Coronary artery disease involving [place] coronary artery of [place] heart without angina pectoris Take 1 Tablet [...] Oral Tablet (Lipitor)Indication s:Coronary artery disease involving [place] coronary artery of [place] heart without angina pectoris Take 1 Tablet [...] mouth twice per day 0 12/09/2023 Active busPIRone HCl 5 MG Oral Tablet (Buspar) Take 1 Tablet by mouth in the morning and 1 Tablet at noon and 1 Tablet before bedtime. 0 12/07/2023 Active Trelegy Ellipta 200-62.5-25 MCG/ACT Aerosol Powder Breath Activated (Fluticasone-Umecli dinium-Vilanterol) Inhale 1 Puff by mouth in the morning. 180 Blister Dosing Unit 3 01/01/2024 Active traMADol HCl 50 MG Oral Tablet (Ultram)Indications :DDD (degenerative disc disease), lumbar,Spinal stenosis of lumbar region with neurogenic claudication Take 1 Tablet by mouth 2 times a day as needed for Pain, Severe. 30 Tablet 0 01/01/2024 Active Hospital, Clinic, or Other Facility Administered Medication Ordered Dose Route Frequency Start Date End Date Status Albuterol Sulfate (Proventil) (2.5 MG/3ML) 0.083% inhalation solution 2.5 mgIndications:COPD, group D, by GOLD 2017 classification (HCC) 2.5 mg NEBULIZER ONCE PRN 01/04/2024 Acti ve documented as of this encounter (statuses as of 01/04/2024) Active Problems Problem Noted Date Diagnosed Date COPD, group D, by GOLD 2017 classification 11/29 Overview: Per COPD GOLD Classification Pulmonary emphysema 10/26/2023 Renal artery stenosis 10/22/2023 Hypertensive heart disease w ith chronic diastolic congestive heart failure 10/21/2023 Coronary artery disease invo lving [place] heart without angina pectoris 06/08/2023 Hepatic steatosis [...] as of this encounter (statuses as of 01/04/2024) Resolved Problems Problem Noted Date Diagnosed Date [...] as of this encounter (statuses as of 01/04/2024) Social History Tobacco Use Types Packs/Day Years [...] Sign Reading Time Taken Comments Blood Pressure 140/80 01/04/2024 12:18 PM EDT Pulse 78 01/04/2024 12:18 PM EDT Temperature 36.5 C (97.7 F) 01/04/2024 12:18 PM E DT Respiratory Rate 18 01/04/2024 12:18 PM EDT Oxygen Saturation 97% 01/04/2024 12:18 PM EDT Inhaled Oxygen Concentration - - Weight 112.5 kg (248 lb) 01/04/2024 12:18 PM EDT Height 182.9 cm (6') 01/04/2024 12:18 PM EDT Body Mass Index 33.63 01/04/2024 12:18 PM EDT documented in this encounter Progress Notes * Colton Montana, DO - 01/04/2024 12:08 PM EDT SUBJECTIVE: Garret Jimenez is a 58 year old male. Chief Complaint Patient presents with COPD Emphysema HPI: Garret Jimenez is a 58 year old male presenting for follow-up. The primary encounter diagnosis was COPD, group D, by GOLD 2017 classification ([facility]). Diagnoses of History of tobacco use and SAROJ (obstructive sleep apnea) were also pertinent to this visit. He did have a hospital admission admitted November with acute exacerbation of COPD and tested positive for RSV. He does report having a CT chest during this admission. He has been using oxygen 2 L with sleep. He did have a home sleep apnea test and results are pending. He is currently using Trelegy 200 mcg once daily. He is off prednisone. He has been quit cigarettes since November 27. He does have lumbar fusion surgery scheduled for January 12. Patient Active Problem List Diagnosis Code Essential hypertension with goal blood pressure less than 140/90 I10 Dyslipidemia, goal LDL below 70 E78.5 Plaque psoriasis L40.0 Anemia D64.9 Elevated transaminase level R74.01 Osteoarthritis of hand, left M19.042 Tobacco dependence F17.200 Grade I diastolic dysfunction I51.89 Hypertensive left ventricular hypertrophy, without heart failure I11.9 History of acute renal failure Z87.448 Lymphedema I89.0 Hepatic steatosis K76.0 Coronary artery disease involving [place] heart without angina pectoris I25.10 Hypertensive heart disease with chronic diastolic congestive heart failure (HCC) I11.0, I50.32 Renal artery stenosis ([facility]) I70.1 Pulmonary emphysema ([facility]) J43.9 COPD, group D, by GOLD 2017 classification ([facility]) J44.9 Current Outpatient Medications Medication Sig Dispense Refill EQ Aspirin Adult Low Dose 81 MG Oral Tablet Delayed Release Take 1 Tablet by mouth daily. In the morning. 90 Tablet 3 Gabapentin 300 MG Oral Capsule (Neurontin) Take 1 Capsule by mouth in the morning and 1 Capsule at noon and 1 Capsule before bedtime. 90 Capsule 11 Atorvastatin Calcium 80 MG Oral Tablet (Lipitor) Take 1 Tablet by mouth in the morning. 90 Tablet 3 Baclofen 10 MG Oral Tablet [...] for Shortness of Breath. 180 mL 3 Carvedilol 12.5 MG Oral Tablet (Coreg) 3 tabs by mouth twice per day busPIRone HCl 5 MG Oral Tablet (Buspar) Take 1 Tablet by mouth in the morning and 1 Tablet at noon and 1 Tablet before bedtime. Trelegy Ellipta 200-62.5-25 MCG/ACT Aerosol Powder Breath Activated (Mviqvpogwjh-Dozwhmxxxacw-Yzkqbpkrjm) Inhale 1 Puff by mouth in the morning. 180 Blister Dosing Unit 3 traMADol HCl 50 MG Oral Tablet (Ultram) Take 1 Tablet by mouth 2 times a day as needed for Pain, Severe. 30 Tablet 0 No current facility-administered medications for this visit. Review of patient's allergies indicates: Allergen Reactions Onel Inhibitors To be avoided due to bilateral renal artery stenosis and worsening kidney function when on previously Prednisone OBJECTIVE: BP 140/80 | Pulse 78 | Temp 36.5 C (97.7 F) (Tympanic) | Resp 18 | Ht 1.829 m (6') | Wt 112.5 kg (248 lb) | SpO2 97% | BMI 33.63 kg/m | BSA 2.39 m PHYSICAL EXAM: Constitutional: no acute distress, able to converse without apparent dyspnea Eyes: anicteric, pupils equal ENT: external ears normal, no nasal discharge Neck: trachea midline, JVP normal Chest: normal respiratory effort, clear to auscultation, no wheezing or crackles Abdomen: obese, normal bowel sounds Extremities: no clubbing, no cyanosis Neuro: alert, oriented Psych: normal mood and affect ASSESSMENT: J44.9 COPD, group D, by GOLD 2017 classification ([facility]) (primary encounter diagnosis) Z87.891 History of tobacco use G47.33 SAROJ (obstructive sleep apnea) PLAN: Continue Trelegy 200 mcg once daily Continue albuterol as needed Continue complete smoking cessation Will obtain prior CT chest imaging from [facility] to review, will be due for repeat CT in 1 year for yearly low-dose CT chest lung cancer screening PFTs (silvia pre/post, lung volumes, diffusion capacity), will delay these to allow time to recover from his surgery Per ARISCAT pulmonary risk index patient is low risk (1.6%) for a less than 3 hour surgery and intermediate risk (13.3%) for perioperative pulmonary complications (respiratory infection, respiratory failure, bronchospasm, atelectasis, pleural effusion, pneumothorax, or aspiration pneumonitis) for a greater than 3 hour surgery under general anesthesia. He is optimized as much as possible from a pulmonary perspective and can proceed with the planned surgery as long as he does not develop symptomsof acute exacerbation within one-month of his planned surgery. Risk of perioperative pulmonary complications is increased if he has respiratory infection or acute exacerbation in which case any elective procedures should be delayed at least 1 month. Follow up in 4 months with PFT same day. Colton Montana DO documented in this encounter Nursing Notes * Raquel Sanchez LPN - 01/04/2024 12:20 PM EDT Chief Complaint Patient presents with COPD Emphysema Interm History/Respiratory Symptoms Cough: occ dry Hemoptysis: no Sinus Symptoms: PND Hospitalizations: November 2023-[facility] ED Trips: November 2023-[facility] Triggers: no Nocturnal: wheeze CPAP/BiPAP/O2: O2 @ 2 lpm Travel Screening Question 01/04/2024 12:06 PM EDT - Filed by Patient Do you have any of the following new or worsening symptoms? None of these Have you recently been in contact with someone who was sick? No / Unsure Mmrc Cat Question 01/04/2024 12:23 PM EDT - Filed by Raquel Sanchez LPN When do you become breathless? (0) I only get breathless with strenuous exercise How frequently do you cough? (3) Do you have phlegm in your chest? (0) - I have no phlegm (mucus) in my chest Is your chest tight? (0) - My chest does not feel tight at all How breathless do you become when walking up a hill or steps? (5) - When I walk up a hill or one flight of stairs I am very breathless How limited are you doing activities at home? (5) - I am very limited doing activities at home How confident are you leaving home with your lung condition? (0) - I am confident leaving my home despite my condition How soundly do you sleep? (0) - I sleep soundly How much energy do you have? (5) - I have no energy at all Total MMRC Score (range: 0 - 4) 0 Total CAT Score (range: 0 - 40) 18 documented in this encounter Plan of Treatment Upcoming Encounters Date Type Department Care Team (Late st Contact Info) Description 06/14/2024 11:40 AM EDT Office Visit [facility] [address] [place] [address] Omer Wayne MD [address], [place] [id number] Scheduled Orders Name Type Priority Associated Diagnoses Orde r Schedule SPIROMETRY B/A BRONCHODILATOR Procedures Routine COPD, group D, by GOLD 2017 classification ([facility]) Expected: 01/11/2024, Expires: 02/02/2025 LUNG VOLUMES (PLETHYSMOGRAPHY) Procedures Routine COPD, group D, by GOLD 2017 classification ([facility]) Expected: 01/11/2024, Expires: 02/02/2025 DIFFUSION CAPACITY (DLCO) Procedures Routine COPD, group D, by GOLD 2017 classification ([facility]) Expected: 01/11/2024, Expires: 02/02/2025 Health Maintenance Due Date Last Done Comments [...] this encounter Medical Devices Implanted Type Area Jockey Room Custodian Device Identifier Shelf Expiration Date Model / Serial / Lot Mesh Plug Prefix Lg [id number] - [id number] Implanted:Qty: 1 on 03/12/2018 by Donovan Raza MD at OR [facility] Right: Groin CR BARD : DAVOL 10/21/2018 [id number] / / [id number] documented as of this encounter Visit Diagnoses Diagnosis COPD, group D, by GOLD 2017 classification ([facility])- Primary History of tobacco use Personal history of tobacco use, presenting hazards to health SAROJ (obstructive sleep apnea) Obstructive sleep apnea (adult) (pediatric) documented in this encounter Care Teams Partner Cco Relationship Specialty Start Date End Date Omer Wayne MD [address] [facility] [place] [address] PCP - General 02/19/05 documented as of this encounter"
--- OUTSIDE RECORDS SUMMARY | 2024-01-13 21:48 | External Medical Summary | Summary of Care ---
Author Name Unknown Organization [facility] Address [address] [place] [address] Phone [phone] Care Team Providers Care Manufacturing Engineer Name Role Phone Omer Wayne MD Primary Care Provider [phone]- [phone] Reason for Visit * Reason Comments COPD Emphysema Encounter Details Date Type Department Care Team (Latest Contact Info) Description 01/04/2024 12:20 PM EDT Office Visit Pulmonary Medicine, [facility] [address] [facility] [place] [address] Colton Montana, DO [address] [place] [address] COPD, group D, by GOLD 2017 classification ([facility])*; History of tobacco use; SAROJ (obstructive sleep apnea) Allergies Active Allergy Reactions Criticality Noted Date Comments Onel Inhibitors 10/22/2023 To be avoided due to bilateral renal artery stenosis and worsening kidney function when on previously Prednisone 04/07/2023 documented as of this encounter (statuses as of 01/05/2024) Medications Medication Sig Dispensed Refills Start Date End Date Status EQ Aspirin Adult Low Dose 81 MG Oral Tablet Delayed ReleaseIndications: Coronary artery disease involving swinom[place] coronary artery of swinomish heart without angina pectoris Take 1 Tablet [...] Oral Tablet (Lipitor)Indication s:Coronary artery disease involving swinom[place] coronary artery of swinomish heart without angina pectoris Take 1 Tablet [...] as of this encounter (statuses as of 01/05/2024) Active Problems Problem Noted Date Diagnosed Date COPD, group D, by GOLD 2017 classification 11/29 Overview: Per COPD GOLD Classification Pulmonary emphysema 10/26/2023 Renal artery stenosis 10/22/2023 Hypertensive heart disease w ith chronic diastolic congestive heart failure 10/21/2023 Coronary artery disease invo lving swinomish heart without angina pectoris 06/08/2023 Hepatic steatosis [...] as of this encounter (statuses as of 01/05/2024) Resolved Problems Problem Noted Date Diagnosed Date [...] as of this encounter (statuses as of 01/05/2024) Social History Tobacco Use Types Packs/Day Years [...] COPD, group D, by GOLD 2017 classification ([facility]). Diagnoses of History of tobacco use and [...] Hepatic steatosis K76.0 Coronary artery disease involving swinomish heart without angina pectoris I25.10 Hypertensive heart disease with chronic diastolic congestive heart failure (HCC) I11.0, I50.32 Renal artery stenosis ([facility]) I70.1 Pulmonary emphysema ([facility]) J43.9 COPD, group D, by GOLD 2017 classification ([facility]) J44.9 Current Outpatient Medications Medication Sig Dispense [...] Ellipta 200-62.5-25 MCG/ACT Aerosol Powder Breath Activated (Ylvafthwxyf-Dyuaiqxhacmu-Qytvhyzcmw) Inhale 1 Puff by mouth in the [...] COPD, group D, by GOLD 2017 classification ([facility]) (primary encounter diagnosis) Z87.891 History of tobacco use G47.33 SAROJ (obstructive sleep apnea) PLAN: Continue Trelegy 200 mcg once daily Continue albuterol as needed Continue complete smoking cessation Will obtain prior CT chest imaging from [facility] to review, will be due for repeat [...] Description 06/14/2024 11:40 AM EDT Office Visit [facility] [address] [place] [address] Omer Wayne MD [address] [place], [place] [id number] Scheduled Orders Name Type Priority Associated Diagnoses Orde r Schedule SPIROMETRY B/A BRONCHODILATOR Procedures Routine COPD, group D, by GOLD 2017 classification ([facility]) Expected: 01/11/2024, Expires: 02/02/2025 LUNG VOLUMES (PLETHYSMOGRAPHY) Procedures Routine COPD, group D, by GOLD 2017 classification ([facility]) Expected: 01/11/2024, Expires: 02/02/2025 DIFFUSION CAPACITY (DLCO) Procedures Routine COPD, group D, by GOLD 2017 classification ([facility]) Expected: 01/11/2024, Expires: 02/02/2025 Health Maintenance Due [...] this encounter Medical Devices Implanted Type Area Pierogi Maker Device Identifier Shelf Expiration Date Model / Serial / Lot Mesh Plug Prefix [id number] - [id number] Implanted:Qty: 1 on 03/12/2018 by Donovan Raza MD at OR [facility] Right: Groin CR BARD : DAVOL 10/21/2018 [id number] / / [id number] documented as of this encounter Visit Diagnoses Diagnosis COPD, group D, by GOLD 2017 classification ([facility])- Primary History of tobacco use Personal history of tobacco use, presenting hazards to health SAROJ (obstructive sleep apnea) Obstructive sleep apnea (adult) (pediatric) documented in this encounter Care Teams Manufacturing Engineer Relationship Specialty Start Date End Date Omer Wayne MD [address] [facility] [place] [address] PCP - General 02/19/05 documented as of this encounter"
--- OUTSIDE RECORDS SUMMARY | 2024-01-13 21:49 | External Medical Summary | Summary of Care ---
Author Name Unknown Organization [facility] Address [address] [place] [address] Phone [phone] Care Team Providers Care Pastry Chef Name Role Phone Omer Wayne MD Primary Care Provider [phone]- [phone] Reason for Visit * Reason Onset Date Comments Hospital Follow-Up Hospital Follow-Up 12/28/2023 Encounter Details Date Type Department Care Team (Latest Contact Info) Description 12/09/2023 11:20 AM EDT [facility] [address] [facility] [place] [address] Omer Wayne MD [address] [place] [address] COPD, group D, by GOLD 2017 classification (HCC)*; Pulmonary emphysema, unspecified emphysema type (HCC); Hospital discharge follow-up; Coronary artery disease involving soka[place] coronary artery of sokaogon heart without angina pectoris; Tobacco dependence Allergies Active Allergy Reactions Criticality Noted Date Comments Onel Inhibitors 10/22/2023 To be avoided due to bilateral renal artery stenosis and worsening kidney function when on previously Prednisone 04/07/2023 documented as of this encounter (statuses as of 12/28/2023) Medications Medication Sig Dispensed Refills Start Date End Date Status sildenafil (REVATIO) 20 MG TabletIndications :Erectile dysfunction, unspecified erectile dysfunction type Take 1-5 tablets by mouth 1 hour prior to intercourse. 30 Tab 3 05/10/2019 Active EQ Aspirin Adult Low Dose 81 MG Oral Tablet Delayed ReleaseIndication s:Coronary artery disease involving soka[place] coronary artery of sokaogon heart without angina pectoris Take 1 Tablet by mouth daily. In the morning. 90 Tablet 3 03/11/2023 Active Gabapentin 300 MG Oral Capsule (Neurontin)Indica tions:Chronic midline low back pain with left-sided sciatica Take 1 Capsule by mouth in the morning and 1 Capsule at noon and 1 Capsule before bedtime. 90 Capsule 11 03/27/2023 Active Atorvastatin Calcium 80 MG Oral Tablet (Lipitor)Indicati ons:Coronary artery disease involving [place]oka[place] coronary artery of sokaogon heart without angina pectoris Take 1 Tablet [...] the morning. 90 Tablet 3 07/02/2023 Active Ipratropium-Albut lashay 0.5-2.5 (3) MG/3ML Inhalation Solution (Duoneb) Inhale 3 mL via nebulizer every 6 hours as needed for Shortness of Breath. 180 mL 3 10/09/2023 Active Additional Information Patient not taking.Reported on 10/21/2023 Umeclidinium [place] 62.5 MCG/ACT Inhalation Aerosol Powder Breath Activated (INCRUSE ellipta) Inhale 1 Puff by mouth in the morning. 30 Each 11 11/23/2023 Active Additional Information Patient not taking.Reported on 12/09/2023 Trelegy Ellipta 100-62.5-25 MCG/ACT Aerosol Powder Breath Activated (Fluticasone-Umec lidinium-Vilanter ol) Inhale 1 Puff by mouth. 0 Active Carvedilol 12.5 MG Oral Tablet (Coreg) 3 tabs by mouth twice per day 0 12/09/2023 Active Carvedilol 12.5 MG Oral Tablet (Coreg) Take 1 Tablet by mouth in the morning and 1 Tablet before bedtime. With food. 180 Tablet 3 06/08/2023 Discontinue d(Refill) documented as of this encounter (statuses as of 12/28/2023) Active Problems Problem Noted Date Diagnosed Date COPD, group D, by GOLD 2017 classification 11/29 Overview: Per COPD GOLD Classification Pulmonary emphysema 10/26/2023 Renal artery stenosis 10/22/2023 Hypertensive heart disease w ith chronic diastolic congestive heart failure 10/21/2023 Coronary artery disease invo lving sokaogon heart without angina pectoris 06/08/2023 Hepatic steatosis [...] as of this encounter (statuses as of 12/28/2023) Resolved Problems Problem Noted Date Diagnosed Date Resolved Date Pulmonary emphysema 10/26/2023 12/28/19 24 Acute renal failure 04/07/2023 10/22/19 24 ALESSANDRO (acute kidney injury) 04/07/2023 Elevated troponin 04/07/2023 10/22/2023 Hypercalcemia 04/07/2023 10/22/2023 Internal hemorrhoid, bleeding 04/07/2023 10/22/2023 Chronic obstructive pulmonary disease 03/27/2023 12/03/2023 Overview: Per COPD GOLD Classification Neurogenic claudication 03/15/201509/21 Neurogenic claudication 03/15/2015 050 10/2017 Pain of left calf 03/01/2015 01/20/2018 [...] as of this encounter (statuses as of 12/28/2023) Social History Tobacco Use Types Packs/Day Years Used Date Smoking Tobacco: Every Day Cigarettes 1.5 42 Smokeless Tobacco: Never Tobacco Cessation:Ready to Q uit: Not Asked; Counseling Given: Not Answered Comments:began at age 15 Alcohol Use Standard [...] Sign Reading Time Taken Comments Blood Pressure 128/78 12/09/2023 11:08 AM EDT Pulse 75 12/09/2023 11:08 AM EDT Temperature 36.6 C (97.9 F) 12/09/2023 1 1:08 AM EDT Respiratory Rate 20 12/09/2023 11:0 8 AM EDT Oxygen Saturation 96% 12/09/2023 11: 08 AM EDT Inhaled Oxygen Concentration - - Weight 107.3 kg (236 lb 9.6 oz) 024 11:08 AM EDT Height 183.7 cm (6' 0.32") 12/09/2023 1 1:08 AM EDT Body Mass Index 31.81 12/09/2023 11:08 AM EDT documented in this encounter Progress Notes * Omer Wayne MD - 12/28/2023 9:51 PM EDT Subjective: Garret Jimenez is a 58 year old male here today for Chief Complaint Patient presents with Hospital Follow-Up Hospital Follow-Up Pt presents for hospital follow up. Admitted to [facility] from 11/29/23 - 12/07/23 for acute resp failure related to COPD exac. Please see d/c summary for full details. Continues to have significant issues with lower back pain - plans surgery with Dr Brenner - but has not been able to schedule due to ongoing smoking. Has to be smoke free for a month. Does feel better compared to hospital discharge. No new or worsening symptoms. Past Medical History: Diagnosis Date Dyslipidemia, goal LDL below 100 HTN, goal below 140/90 Rhinitis, chronic Past Surgical History: Procedure Laterality Date EGD, FLEXIBLE, DIAGNOSTIC 07/03/2021 reflux / ESOPHAGOGASTRODUODENOSCOPY (EGD), FLEXIBLE, TRANSORAL, DIAGNOSTIC performed by Martha Patterson MD at ENDOSCOPY [facility] FOOT/TOE SURGERY NEC Left 09/21/1993 Foot/Toes Surgery Proc Unlisted INFORMATION 09/21/2001 [id number]- Dr Sagastume KNEE ARTHROSCOPY, DIAGNOSTIC Left 09/21/1988 Knee Scope,Diagnostic REPAIR INITIAL INGUINAL HERNIA REDUCIBLE AGE 5 OR MORE Right 03/12/2018 REPAIR INITIAL INGUINAL HERNIA REDUCIBLE AGE 5 OR MORE performed by Donovan Raza MD at OR [facility] Review of patient's allergies indicates: Allergen Reactions [...] Ellipta 100-62.5-25 MCG/ACT Aerosol Powder Breath Activated (Ombgvcbkppi-Sryvahuqpbym-Vqlwjwyqub) Inhale 1 Puff by mouth. Carvedilol 12.5 MG Oral Tablet (Coreg) 3 tabs by mouth twice per day Ipratropium-Albuterol 0.5-2.5 (3) MG/3ML Inhalation Solution (Duoneb) Inhale 3 mL via nebulizer every 6 hours as needed for Shortness of Breath. (Patient not taking: Reported on 10/21/2023) 180 mL 3 Umeclidinium [place] 62.5 MCG/ACT Inhalation Aerosol Powder Breath Activated (INCRUSE ellipta) Inhale 1 Puff by mouth in the morning. (Patient not taking: Reported on 12/09/2023) 30 Each 11 No current facility-administered medications for this visit. Objective: BP 128/78 | Pulse 75 | Temp 36.6 C (97.9 F) (Temporal Artery) | Resp 20 | Ht 1.837 m(6' 0.32") | Wt 107.3 kg (236 lb 9.6 oz) | SpO2 96% | BMI 31.81 kg/m | BSA 2.34 m GEN: NAD HEENT: Benign NECK: Supple with no LAD, TM, JVD CHEST: CTA B CV: RRR ABD: Soft, NT/ND, No HSM, NABS EXT: No c,c,e Assessment and Plan: COPD, group D, by GOLD 2017 classification (HCC) (Primary) Pulmonary emphysema, unspecified emphysema type (HCC) -continue current treatments. Pt working hard to quit smoking. Aware that he cannot schedule back surgery until he stops smoking. Hospital discharge follow-up - DISCH MED RECON CUR MED LIS Coronary artery disease involving sokaogon coronary artery of sokaogon heart without angina pectoris Tobacco dependence Follow Up: Return in about 6 months (around 06/10/2024) for recheck. | For: recheck Omer Wayne MD documented in this encounter Nursing Notes * Aleyda Vaca LPN - 12/09/2023 11:08 AM EDT The patient has been properly identified by confirmation of name and date of . Chief Complaint Patient presents with Hospital Follow-Up documented in this encounter Plan of Treatment Upcoming Encounters Date Type Department Care Team (Late st Contact Info) Description 01/04/2024 12:20 PM EDT Office Visit Pulmonary Medicine, [facility] [address] [place] [address] Colton Montana M, DO [address] [place] [address] 06/14/2024 11:40 AM EDT Office Visit [facility] [address] [place] [id number] Omer Wayne MD [address] [place] [address] Health Maintenance Due Date Last Done Comments [...] 2013 Depression Screening 07/12/2020 07/12/2019 COVID-19 Vaccine (2022- season) 2023 Influenza Vaccine (FLU shot) (Season Ended) 2024 GFR 10/01/2024 10/01/2023, 03/2024, 09/09/2023, Additional history exists O2 ASSESSMENT COMPLETED IN PAST YEAR FOR COPD 12/15/2024 12/16/2023 Diabetes Screening 10/01/2026 10/01/2023, 0 09/27/2023, 06/19/2023, [...] this encounter Medical Devices Implanted Type Area Cobbler Mckay Device Identifier Shelf Expiration Date Model / Serial / Lot Mesh Plug Prefix [id number] [id number] - [id number] Implanted:Qty: 1 on 03/12/2018 by Donovan Raza MD at OR [facility] Right: Groin CR BARD : DAVOL 10/21/2018 [id number] / / [id number] documented as of this encounter Visit Diagnoses Diagnosis COPD, group D, by GOLD 2017 classification (HCC)- Primary Pulmonary emphysema, unspecified emphysema type (HCC) Hospital discharge follow-up Other follow-up examination Coronary artery disease involving sokaogon coronary artery of sokaogon heart without angina pectoris Tobacco dependence Tobacco use disorder documented in this encounter Care Teams Pastry Chef Relationship Specialty Start Date End Date Omer Wayne MD [address] [place] [address] PCP - General 02/19/05 documented as of this encounter
--- OUTSIDE RECORDS SUMMARY | 2024-01-13 21:49 | External Medical Summary | Summary of Care ---
Author Name Unknown Organization [facility] Address [address] [place] [facility] [place] [address] Phone [phone] Care Team Providers Care Cop Name Role Phone Omer Wayne MD Primary Care Provider +1- [phone] Reason for Visit * Reason Onset Date Comments Medication Refill 01/04/2024 Medication Problem 01/04/2024 Encounter Details Date Type Department Care Team (Late st Contact Info) Description [facility]/04/[address] [address] [facility] [place] [address] Omer Wayne MD [address] [place] [address] Allergies Active Allergy Reactions Criticality [...] Tablet Delayed ReleaseIndications: Coronary artery disease involving [place] coronary artery of [place] heart without angina pectoris Take 1 Tablet [...] Oral Tablet (Lipitor)Indication s:Coronary artery disease involving [place] coronary artery of [place] heart without angina pectoris Take 1 Tablet [...] Pain, Severe. 30 Tablet 0 01/01/2024 Active documented as of this encounter (statuses as of 01/04/2024) Active Problems Problem Noted Date Diagnosed Date COPD, group D, by GOLD 2017 classification 11/29 Overview: Per COPD GOLD Classification Pulmonary emphysema 10/26/2023 Renal artery stenosis 10/22/2023 Hypertensive heart disease w ith chronic diastolic congestive heart failure 10/21/2023 Coronary artery disease invo lving [place] heart without angina pectoris 06/08/2023 Hepatic steatosis [...] Date Resolved Date Pulmonary emphysema 10/26/2023 12/28/19 Acute renal failure 04/07/2023 10/22/19 24 ALESSANDRO (acute kidney injury) 04/07/2023 Elevated troponin 04/07/2023 10/22/2023 Hypercalcemia 04/07/2023 10/22/2023 Internal hemorrhoid, bleeding 04/07/2023 10/22/2023 Chronic obstructive pulmonary disease 03/27/2023 12/03/2023 Overview: Per COPD GOLD Classification Neurogenic claudication 03/15/201509/21 Neurogenic claudication 03/15/2015 0510/2017 [...] encounter Miscellaneous Notes * Telephone Encounter - Trudi Linares, wood planer - 01/04/2024 11:36 AM EDT RE Trelegy Ellipta 200-62.5-25 MCG/ACT Aerosol Powder Breath Activated (Bpkftxkpxnb-Gggdkupdvfev-Rhtahvycz Pt said pharmacy said they can not fill I called [facility] tramadol is the issue - gave last and current appt dates and diagnosis code I gave pt the information Thank you for your assistance Trudi Linares Recruiting Internship II [facility] ([facility]) (Formerly Telepharmacy) 01/04/2024,11:40 AM documented in this encounter Plan of Treatment Upcoming Encounters Date Type Department Care Team (Late st Contact Info) Description 01/04/2024 12:20 PM EDT Office Visit Pulmonary Medicine, [facility] [address] [facility] [place] [address] Colton Montana, DO [address] [facility] [place] [address] 06/14/2024 11:40 AM EDT Office Visit [facility] [address] [place] [phone] Omer Wayne MD [address] [place] [address] Health Maintenance Due Date Last Done Comments [...] ASSESSMENT COMPLETED IN PAST YEAR FOR COPD 12/31/2024 01/01/2024 Diabetes Screening 10/01/2026 10/01/2023, 0 09/27/2023, 06/19/2023, [...] this encounter Medical Devices Implanted Type Area Colorer Device Identifier Shelf Expiration Date Model / Serial / Lot Mesh Plug Prefix [id number] [id number] - [id number] Implanted:Qty: 1 on 03/12/2018 by Donovan Raza MD at OR [facility] Right: Groin CR BARD : DAVOL 10/21/2018 [id number] / / [id number] documented as of this encounter Care Teams Cop Relationship Specialty Start Date End Date Omer Wayne MD [address] [place] [address] PCP - General 02/19/05 documented as of this encounter
--- OUTSIDE RECORDS SUMMARY | 2024-01-13 21:49 | External Medical Summary | Summary of Care ---
Author Name Unknown Organization [facility] Address [address] [facility] [place] [address] Phone [phone] Care Team Providers Care Coal Cutting Machine Operator Name Role Phone Omer Wayne MD Primary Care Provider +1- [phone] Reason for Referral * Medication Prior Authorization - Pending Review Specialty Diagnoses / Procedures Referred By Contac t Referred To Contact Diagnoses DDD (degenerative disc disease), lumbar Spinal stenosis of lumbar region with neurogenic claudication Anabela Lopez MD [address] [facility] [place] [address] Referral ID Status Reason Start Date Expiration Date V isits Requested Visits Authorized [id number] Pending Review 999 999 Reason for Visit * Reason Comments pre-op exam Pt here today for a pre op exam Encounter Details Date Type Department Care Team (Late st Contact Info) Description 01/01/2024 3:00 PM EDT [facility] [address] [place] [phone] [facility] [address] [id number] Preoperative clearance*; DDD (degenerative disc disease), lumbar; Spinal stenosis of lumbar region with neurogenic claudication; Essential hypertension with goal blood pressure less than 140/90; Hypertensive heart disease with chronic diastolic congestive heart failure (HCC); Pulmonary emphysema, unspecified emphysema type (HCC); Coronary artery disease involving cabazon coronary artery of cabazon heart without angina pectoris Allergies Active Allergy Reactions Criticality Noted Date Comments Onel Inhibitors 10/22/2023 To be avoided due to bilateral renal artery stenosis and worsening kidney function when on previously Prednisone 04/07/2023 documented as of this encounter (statuses as of 01/01/2024) Medications Medication Sig Dispensed Refills Start Date End Date Status EQ Aspirin Adult Low Dose 81 MG Oral Tablet Delayed ReleaseIndication s:Coronary artery disease involving cabazon coronary artery of cabazon heart without angina pectoris Take 1 Tablet [...] Oral Tablet (Lipitor)Indicati ons:Coronary artery disease involving cabazon coronary artery of cabazon heart without angina pectoris Take 1 Tablet by mouth in the morning. 90 Tablet 3 3 Active Baclofen 10 MG [...] of Breath. 180 mL 3 4 Active Carvedilol 12.5 MG Oral Tablet (Coreg) 3 tabs by mouth twice per day 0 4 Active busPIRone HCl 5 MG Oral Tablet (Buspar) Take 1 Tablet by mouth in the morning and 1 Tablet at noon and 1 Tablet before bedtime. 0 4 Active Trelegy Ellipta 200-62.5-25 MCG/ACT Aerosol Powder Breath Activated (Fluticasone-Umec lidinium-Vilanter ol) Inhale 1 Puff by mouth in the morning. 180 Blister Dosing Unit 3 4 Active traMADol HCl 50 MG Oral Tablet (Ultram)Indicatio ns:DDD (degenerative disc disease), lumbar,Spinal stenosis of lumbar region with neurogenic claudication Take 1 Tablet by mouth 2 times a day as needed for Pain, Severe. 30 Tablet 0 4 Active sildenafil (REVATIO) 20 MG TabletIndications :Erectile dysfunction, unspecified erectile dysfunction type Take 1-5 tablets by mouth 1 hour prior to intercourse. 30 Tab 3 9 01/01/20 24 Discontinued(Pat ient preference/disco ntinuation) Umeclidinium [place] 62.5 MCG/ACT Inhalation Aerosol Powder Breath Activated (INCRUSE ellipta) Inhale 1 Puff by mouth in the morning. 30 Each 11 4 01/01/20 24 Discontinued(Pat ient preference/disco ntinuation) Trelegy Ellipta 100-62.5-25 MCG/ACT Aerosol Powder Breath Activated (Fluticasone-Umec lidinium-Vilanter ol) Inhale 1 Puff by mouth. 0 01/01/20 24 Discontinued documented as of this encounter (statuses as of 01/01/2024) Active Problems Problem Noted Date Diagnosed Date COPD, group D, by GOLD 2017 classification 11/29 Overview: Per COPD GOLD Classification Pulmonary emphysema 10/26/2023 Renal artery stenosis 10/22/2023 Hypertensive heart disease w ith chronic diastolic congestive heart failure 10/21/2023 Coronary artery disease invo lving cabazon heart without angina pectoris 06/08/2023 Hepatic steatosis [...] as of this encounter (statuses as of 01/01/2024) Resolved Problems Problem Noted Date Diagnosed Date [...] as of this encounter (statuses as of 01/01/2024) Social History Tobacco Use Types Packs/Day Years Used Date Smoking Tobacco: Former Cigarettes 1.5 42 Passive Smoke Exposure: Current Smokeless Tobacco: Never Tobacco Cessation:Counseling Given: Not Answered Comments:began at age 15 [...] Sign Reading Time Taken Comments Blood Pressure 152/92 01/01/2024 2:54 PM EDT Pulse 87 01/01/2024 2:54 PM EDT Temperature 37.1 C (98.7 F) 01/01/2024 2:54 PM ED T Respiratory Rate 16 01/01/2024 2:54 PM EDT Oxygen Saturation 97% 01/01/2024 2:54 PM EDT Inhaled Oxygen Concentration - - Weight 112.5 kg (248 lb) 01/01/2024 2:54 PM EDT Height - - Body Mass Index 32.72 12/16/2023 7:48 AM EDT documented in this encounter Patient Instructions * Patient Instructions* Anabela Lopez MD - 01/01/2024 3:22 PM EDT documented in this encounter Progress Notes * Anabela Lopez MD - 01/01/2024 3:11 PM EDT Subjective: Garret Jimenez is a 58 year old male. Presents at the request of Dr Brenner for medical clearance for lumbar fusion . Scheduled on jan 12 Known chronic lumbar DDD, spinal stenosis with debilitating legs weakness, neuropathy Taking OTC , neurontin prn but does not help Stopped smoking since early nov Will get test done too Known HTN, CHF , COPD Had RSV infection last month , so still get some chest tighness But lung sound is clear, taking trelegy , f/u with pulmo O2 sat is stable Denies CP, palpitation He was taking lower dose coreg 12.5 two tabs bid but will resume 3 tabs bid due to High BP And will f/u with pulmo on Thursday - I will review BP on note PHM: Patient Active Problem List Diagnosis Code Essential [...] Hepatic steatosis K76.0 Coronary artery disease involving cabazon heart without angina pectoris I25.10 Hypertensive heart disease with chronic diastolic congestive heart failure (HCC) I11.0, I50.32 Renal artery stenosis (HCC) I70.1 Pulmonary emphysema ([facility]) J43.9 COPD, group D, by GOLD 2017 classification ([facility]) J44.9 Current Outpatient Medications Medication Sig [...] 1 Tablet before bedtime. 90 Tablet 1 Furosemide 20 MG Oral Tablet (Lasix) Take [...] Ellipta 200-62.5-25 MCG/ACT Aerosol Powder Breath Activated (Ufdpdeoqwvf-Eitxajhlpopl-Yppzqdcixv) Inhale 1 Puff by mouth in the morning. 180 Blister Dosing Unit 3 Cyanocobalamin 1000 MCG Oral Capsule Take by mouth. (Patient not taking: Reported on 01/01/2024) Thiamine HCl 100 MG Oral Tablet Take 1 Tablet by mouth in the morning. (Patient not taking: Reported on 01/01/2024) No current facility-administered medications for this visit. Past Medical History: Diagnosis Date Dyslipidemia, goal LDL below 100 HTN, goal below 140/90 Rhinitis, chronic Past Surgical History: Procedure Laterality Date EGD, FLEXIBLE, DIAGNOSTIC 07/03/2021 reflux / ESOPHAGOGASTRODUODENOSCOPY (EGD), FLEXIBLE, TRANSORAL, DIAGNOSTIC performed by Martha Patterson MD at ENDOSCOPY [facility] FOOT/TOE SURGERY NEC Left 09/21/1993 Foot/Toes Surgery Proc Unlisted INFORMATION 09/21/2001 [id number]- Dr Sagastume KNEE ARTHROSCOPY, DIAGNOSTIC Left 09/21/1988 Knee Scope,Diagnostic REPAIR INITIAL INGUINAL HERNIA REDUCIBLE AGE 5 OR MORE Right 03/12/2018 REPAIR INITIAL INGUINAL HERNIA REDUCIBLE AGE 5 OR MORE performed by Donovan Raza MD at OR [facility] Review of patient's allergies indicates: Allergen Reactions Onel Inhibitors To be avoided due to bilateral renal artery stenosis and worsening kidney function when on previously Prednisone Family History Problem Relation Age of Onset Diabetes Father Heart Disorder Grandfather (Maternal) Cancer None Hypertension None Mental Disorder None Stroke None Family Status Relation Status Mo Alive Fa MGFA (Not Specified) NONE (Not Specified) NONE (Not Specified) NONE (Not Specified) NONE (Not Specified) Social History Tobacco Use Smoking status: Former Current packs/day: 1.50 Average packs/day: 1.5 packs/day for 42.0 years (63.0 ttl pk-yrs) Types: Cigarettes Passive exposure: Current Smokeless tobacco: Never Tobacco comments: began at age 15 Substance Use Topics Alcohol use: Yes Comment: one day a week on weekends Vaping/E-Cigarette Use Vaping/E-Cigarette Use Never User Vaping/E-Cigarette Substances Vaping/E-Cigarette Devices Review of Systems Constitutional: Positive for activity change (declining) and fatigue. Negative for appetite change,chills, diaphoresis, fever and unexpected weight change. HENT: Negative for congestion. Eyes: Negative for visual disturbance. Respiratory: Positive for cough (occ mild) and chest tightness. Negative for shortness of breath and wheezing. Cardiovascular: Negative for chest pain, palpitations and leg swelling. Gastrointestinal: Negative for abdominal distention, abdominal pain, nausea and vomiting. Endocrine: Negative. Musculoskeletal: Positive for arthralgias, back pain and gait problem. Neurological: Positive for weakness (legs) and numbness. Negative for dizziness and light-headedness. Psychiatric/Behavioral: Positive for sleep disturbance. Negative for agitation and behavioral problems. Objective: BP 152/92 | Pulse 87 | Temp 37.1 C (98.7 F) (Infrared ) | Resp 16 | Wt 112.5 kg (248 lb) | NiL558% | BMI 32.72 kg/m | BSA 2.41 m Physical Exam Constitutional: General: He is not in acute distress. Appearance: Normal appearance. He is obese. He is not ill-appearing, toxic- appearing or diaphoretic. HENT: Head: Normocephalic and atraumatic. Nose: Nose normal. Eyes: Extraocular Movements: Extraocular movements intact. Cardiovascular: Rate and Rhythm: Normal rate and regular rhythm. Pulses: Normal pulses. Heart sounds: Normal heart sounds. No murmur heard. Pulmonary: Effort: Pulmonary effort is normal. No respiratory distress. Breath sounds: Normal breath sounds. No stridor. No wheezing, rhonchi or rales. Chest: Chest wall: No tenderness. Musculoskeletal: General: Tenderness present. Right lower leg: No edema. Left lower leg: No edema. Neurological: General: No focal deficit present. Mental Status: He is alert and oriented to person, place, and time. Cranial Nerves: No cranial nerve deficit. Motor: Weakness (legs) present. Psychiatric: Mood and Affect: Mood normal. Behavior: Behavior normal. ASSESSMENT: Diagnosis for procedure: lumbar DDD , spinal stenosis Preoperative Examination PLAN: Patient is medically cleared. (Z01.818) Preoperative clearance (primary encounter diagnosis) Plan: op (M51.36) DDD (degenerative disc disease), lumbar Plan: traMADol HCl 50 MG Oral Tablet (Ultram) Tylenol prn , neurontin prn (M48.062) Spinal stenosis of lumbar region with neurogenic claudication Plan: traMADol HCl 50 MG Oral Tablet (Ultram) (I10) Essential hypertension with goal blood pressure less than 140/90 Plan: increase coreg 3 tabs bid (I11.0, I50.32) Hypertensive heart disease with chronic diastolic congestive heart failure (HCC) (J43.9) Pulmonary emphysema, unspecified emphysema type (HCC) Plan: trelegy , no smoking (I25.10) Coronary artery disease involving cabazon coronary artery of cabazon heart without angina pectoris Anabela Lopez MD documented in this encounter Nursing Notes * Aleah Gerardo LPN - 01/01/2024 2:47 PM EDT Chief Complaint Patient presents with pre-op exam Pt here today for a pre op exam documented in this encounter Plan of Treatment Upcoming Encounters Date Type Department Care Team (Late st Contact Info) Description 01/04/2024 12:20 PM EDT Office Visit Pulmonary Medicine, [facility] [address] [facility] [place] [address] Colton Montana, DO [address] [place] [address] 06/14/2024 11:40 AM EDT Office Visit [facility] [address] [place] [id number] Omer Wayne MD [address] [place], [place] [phone] Health Maintenance Due Date Last Done Comments [...] this encounter Medical Devices Implanted Type Area Wire Fence Builder Device Identifier Shelf Expiration Date Model / Serial / Lot Mesh Plug Prefix Lg [id number] - [id number] Implanted:Qty: 1 on 03/12/2018 by Donovan Raza MD at OR [facility] Right: Groin CR BARD : DAVOL 10/21/2018 [id number] / / [id number] documented as of this encounter Visit Diagnoses Diagnosis Preoperative clearance- Primary Preoperative examination, unspecified DDD (degenerative disc disease), lumbar Degeneration of lumbar or lumbosacral intervertebral disc Spinal stenosis of lumbar region with neurogenic claudication Spinal stenosis, lumbar region, with neurogenic claudication Essential hypertension with goal blood pressure less than 140/90 Hypertensive heart disease with chronic diastolic congestive heart failure (HCC) Pulmonary emphysema, unspecified emphysema type (HCC) Coronary artery disease involving cabazon coronary artery of cabazon heart without angina pectoris documented in this encounter Care Teams Coal Cutting Machine Operator Relationship Specialty Start Date End Date Omer Wayne MD [address] [place] [address] PCP - General 02/19/05 documented as of this encounter"
--- OUTSIDE RECORDS SUMMARY | 2024-01-13 21:49 | External Medical Summary | Summary of Care ---
Author Name Unknown Organization [facility] Address [address] [facility] [address] Phone [phone] Care Team Providers Care Salvage Engineer Name Role Phone Omer Wayne MD Primary Care Provider +1- [phone] Reason for Visit * Reason Onset Date Comments Sleep Apnea Device 12/30/2023 Encounter Details Date Type Department Care Team (Late st Contact Info) Description 12/30/2023 Telephone Sleep Lab, [facility] [address] [facility] [place] [id number] Shelley Wells CRNP [address] [place] [address] Sleep Apnea Device Allergies Active Allergy Reactions Criticality Noted Date Comments Onel Inhibitors 10/22/2023 To be avoided due to bilateral renal artery stenosis and worsening kidney function when on previously Prednisone 04/07/2023 documented as of this encounter (statuses as of 12/30/2023) Medications Medication Sig Dispensed Refills Start Date End Date Status sildenafil (REVATIO) 20 MG TabletIndications:E rectile dysfunction, unspecified erectile dysfunction type Take 1-5 tablets by mouth 1 hour prior to intercourse. 30 Tab 3 05/10/2019 Active EQ Aspirin Adult Low Dose 81 MG Oral Tablet Delayed ReleaseIndications: Coronary artery disease involving yankton coronary artery of yankton heart without angina pectoris Take 1 Tablet [...] Oral Tablet (Lipitor)Indication s:Coronary artery disease involving yankton coronary artery of yankton heart without angina pectoris Take 1 Tablet [...] Information Patient not taking.Reported on 10/21/2023 Umeclidinium [place] 62.5 MCG/ACT Inhalation Aerosol Powder Breath Activated (INCRUSE ellipta) Inhale 1 Puff by mouth in the morning. 30 Each 11 11/23/2023 Active Additional Information Patient not taking.Reported on 12/09/2023 Trelegy Ellipta 100-62.5-25 MCG/ACT Aerosol Powder Breath Activated (Fluticasone-Umecli dinium-Vilanterol) Inhale 1 Puff by mouth. 0 Active Carvedilol 12.5 MG Oral Tablet (Coreg) 3 tabs by mouth twice per day 0 12/09/2023 Active documented as of this encounter (statuses as of 12/30/2023) Active Problems Problem Noted Date Diagnosed Date COPD, group D, by GOLD 2017 classification 11/29 Overview: Per COPD GOLD Classification Pulmonary emphysema 10/26/2023 Renal artery stenosis 10/22/2023 Hypertensive heart disease w ith chronic diastolic congestive heart failure 10/21/2023 Coronary artery disease invo lving yankton heart without angina pectoris 06/08/2023 Hepatic steatosis [...] as of this encounter (statuses as of 12/30/2023) Resolved Problems Problem Noted Date Diagnosed Date [...] as of this encounter (statuses as of 12/30/2023) Social History Tobacco Use Types Packs/Day Years Used Date Smoking Tobacco: Former Cigarettes 1.5 42 Smokeless Tobacco: Never Comments:began [...] as of this encounter Miscellaneous Notes * Addendum Note - Shelley Wells CRNP - 12/30/2023 12:50 PM EDTAddended by: SHELLEY WELLS on: 12/30/2023 12:50 PM Modules accepted: Orders * Telephone Encounter - Raquel Sanchez LPN - 12/30/2023 9:08 AM EDT Please do an order for an HST. Pt will be contacted to corn picker the HST at [facility] where he will be instructed to return it. Please set up the appt and call the pt with the time and date. * Telephone Encounter - Jennifer Harper [facility] - 12/30/2023 4:29 AM EDT Patient called the lab having difficulty using the WatchPat. Attempted to troubleshoot over the phone. Device would not connect to the phone. They tried to find the bluetooth settings on the phone ayse sure it was turned on but could not find the settings. Because patient sounded frustrated, I suggested he return the WatchPat and I would set up a HST unit for him to use as it does not require a phone, bluetooth, or WiFi. He and his mother were agreeable. An order for HST will need to replace the WatchPat order. Patient will be put on the [facility] Schedule for 12/30/23. He seemed to not want to travel from [place] to [place] to corn picker the HST but said he will do what is necessary. If possible, could the unit be returned to [facility] to save him travel and then the unit sent with either Javad Almeida Amy, or Sadie to the [facility] Sleep Lab or Pulmonary office? Anabella Garcia - serial#[id number] - was configured for the patient to corn picker. documented in this encounter Plan of Treatment Upcoming Encounters Date Type Department Care Team (Late st Contact Info) Description 12/30/2023 1:00 PM EDT PulmDiagnostic Sleep Lab, [facility] [address] [place] [address] [facility], Sleep Med Home Study [address] [place] [address] Arrived 01/04/2024 12:20 PM EDT Office Visit Pulmonary Medicine, [facility] [address] [facility] [place] [address] Colton Montana, DO [address] [place] [facility] [place] [address] 06/14/2024 11:40 AM EDT Office Visit [address] [place] [address] Omer Wayne MD [address] [place] [address] Scheduled Orders Name Type Priority Associated Diagnoses Orde r Schedule SLEEP TEST W/ TYPE 3 PORTABLE MONITOR, 4 CHANNEL; AT HOME Procedures Routine Habitual snoring Obstructive sleep apnea Sleep related gastroesophageal reflux disease Morning headache Insomnia, unspecified type COPD, group D, by GOLD 2017 classification ([facility]) BMI 32.0-32.9,adult Nocturnal hypoxemia Ordered: 12/30/2023 Health [...] - season) 2023 Influenza Vaccine (FLU shot) (Season [...] this encounter Medical Devices Implanted Type Area Gynaecological Oncologist Device Identifier Shelf Expiration Date Model / Serial / Lot Mesh Plug Prefix Lg [id number] - [id number] Implanted:Qty: 1 on 03/12/2018 by Donovan Raza MD at OR [facility] Right: Groin CR BARD : DAVOL 10/21/2018 [id number] / / [id number] documented as of this encounter Visit Diagnoses Diagnosis Habitual snoring- Primary Obstructive sleep apnea Obstructive sleep apnea (adult) (pediatric) Sleep related gastroesophageal reflux disease Esophageal reflux Morning headache Headache Insomnia, unspecified type COPD, group D, by GOLD 2017 classification ([facility]) BMI 32.0-32.9,adult Body Mass Index 32.0-32.9, adult Nocturnal hypoxemia Hypoxemia documented in this encounter Care Teams Salvage Engineer Relationship Specialty Start Date End Date Omer Wayne MD [address] [place] [address] PCP - General 02/19/05 documented as of this encounter
--- OUTSIDE RECORDS SUMMARY | 2024-01-13 21:49 | External Medical Summary | Summary of Care ---
Author Name Unknown Organization [facility] Address [address] [facility] [address] Phone [phone] Care Team Providers Care Spray Dyer Name Role Phone Omer Wayne MD Primary Care Provider +1- [phone] Reason for Visit * Reason Onset Date Comments Sleep Apnea Device 12/30/2023 Encounter Details Date Type Department Care Team (Late st Contact Info) Description 12/30/2023 Telephone Sleep Lab, [facility] [address] [facility] [place] [phone] Jeanette Michael CRNP [address] [place] [address] Sleep Apnea Device Allergies Active Allergy Reactions [...] Tablet Delayed ReleaseIndications: Coronary artery disease involving galena coronary artery of galena heart without angina pectoris Take 1 Tablet [...] Oral Tablet (Lipitor)Indication s:Coronary artery disease involving galena coronary artery of galena heart without angina pectoris Take 1 Tablet [...] Information Patient not taking.Reported on 10/21/2023 Umeclidinium [place] 62.5 MCG/ACT Inhalation Aerosol Powder Breath Activated [...] failure 10/21/2023 Coronary artery disease invo lving galena heart without angina pectoris 06/08/2023 Hepatic steatosis [...] encounter Miscellaneous Notes * Telephone Encounter - Raquel Sanchez LPN - 12/30/2023 9:08 AM EDT Please do an order for an HST. Pt will be contacted to product picker the HST at [facility] where he will be instructed to return it. Please set up the appt and call the pt with the time and date. * Telephone Encounter - Jennifer Harper, [facility] - 12/30/2023 4:29 AM EDT Patient called [...] order. Patient will be put on the [facility] Schedule for 12/30/23. He seemed to not want to travel from [place] to [place] to product picker the HST but said he will do what is necessary. If possible, could the unit be returned to [facility] to save him travel and then the unit sent with either Javad Almeida Amy, or Sadie to the [facility] Sleep Lab or Pulmonary office? Anabella Garcia - serial#[id number] - was configured for the patient to product picker. documented in this encounter Plan of Treatment Upcoming Encounters Date Type Department Care Team (Late st Contact Info) Description 12/30/2023 1:00 PM EDT PulmDiagnostic Sleep Lab, [facility] [address] [place] [address] [facility], Sleep Med Home Study [address] [place] [address] 01/04/2024 12:20 PM EDT Office Visit Pulmonary Medicine, [facility] [address] [facility] [place] [address] Colton Montana, DO [address] [place] [address] 06/14/2024 11:40 AM EDT Office Visit [facility] [address] [place] [phone] Omer Wayne MD [address] [place] [address] Health Maintenance Due Date Last Done Comments [...] this encounter Medical Devices Implanted Type Area Feed Crusher Device Identifier Shelf Expiration Date Model / Serial / Lot Mesh Plug Prefix Lg [id number] - [id number] Implanted:Qty: 1 on 03/12/2018 by Donovan Raza MD at OR [facility] Right: Groin CR BARD : DAVOL 10/21/2018 [id number] / / [id number] documented as of this encounter Care Teams Spray Dyer Relationship Specialty Start Date End Date Omer Wayne MD [address] [place] [address] PCP - General 02/19/05 documented as of this encounter
--- OUTSIDE RECORDS SUMMARY | 2024-01-13 21:49 | External Medical Summary | Summary of Care ---
Author Name Unknown Organization [facility] Address [address] [facility] [address] Phone [phone] Care Team Providers Care University Manager Name Role Phone Omer Wayne MD Primary Care Provider +1- [phone] Reason for Visit * Reason Onset Date Comments Sleep Apnea Device 12/30/2023 Encounter Details Date Type Department Care Team (Late st Contact Info) Description 12/30/2023 Telephone Sleep Lab, [facility] [address] [facility] [place] [id number] Jeanette Michael CRNP [address] [place] [address] Sleep Apnea Device Allergies Active Allergy Reactions [...] Tablet Delayed ReleaseIndications: Coronary artery disease involving [place] coronary artery of [place] heart without angina pectoris Take 1 Tablet [...] Oral Tablet (Lipitor)Indication s:Coronary artery disease involving [place] coronary artery of [place] heart without angina pectoris Take 1 Tablet [...] Information Patient not taking.Reported on 10/21/2023 Umeclidinium [place] 62.5 MCG/ACT Inhalation Aerosol Powder Breath Activated [...] failure 10/21/2023 Coronary artery disease invo lving [place] heart without angina pectoris 06/08/2023 Hepatic steatosis [...] encounter Miscellaneous Notes * Telephone Encounter - Jennifer Harper, RPSGT - 12/30/2023 4:29 AM EDT Patient called [...] order. Patient will be put on the [facility] Schedule for 12/30/23. He seemed to not want to travel from [place] to [place] to cloth picker the HST but said he will do what is necessary. If possible, could the unit be returned to [facility] to save him travel and then the unit sent with either Javad Almeida Amy, or Sadie to the [facility] Sleep Lab or Pulmonary office? Anabella Garcia - [id number] - was configured for the patient to cloth picker. documented in this encounter Plan of Treatment Upcoming Encounters Date Type Department Care Team (Late st Contact Info) Description 12/30/2023 1:00 PM EDT PulmDiagnostic Sleep Lab, [facility] [address] [place] [address] [facility], Sleep Med Home Study [address] [place] [address] 01/04/2024 12:20 PM EDT Office Visit Pulmonary Medicine, [facility] [address] [place] [address] Colton Montana, DO [address] [place] [address] 06/14/2024 11:40 AM EDT Office Visit [facility] [address] [place] [id number] Omer Wayne MD [address], [place] [id number] Health Maintenance Due Date Last Done Comments [...] this encounter Medical Devices Implanted Type Area Perfect Binder Operator Device Identifier Shelf Expiration Date Model / Serial / Lot Mesh Plug Prefix [id number] [id number] - [id number] Implanted:Qty: 1 on 03/12/2018 by Donovan Raza MD at OR [facility] Right: Groin CR BARD : DAVOL 10/21/2018 [id number] / / [id number] documented as of this encounter Care Teams University Manager Relationship Specialty Start Date End Date Omer Wayne MD [address] [place] [address] PCP - General 02/19/05 documented as of this encounter
--- OUTSIDE RECORDS SUMMARY | 2024-01-13 21:49 | External Medical Summary | Summary of Care ---
Author Name Unknown Organization [facility] Address [address] [place] [address] Phone [phone] Care Team Providers Care Pre Sales Technical Consultant Name Role Phone Omer Wayne MD Primary Care Provider +1- [phone] Reason for Visit * Reason Onset Date Comments Sleep Apnea Device 01/04/2024 Encounter Details Date Type Department Care Team (Late st Contact Info) Description 01/04/2024 Telephone Sleep Lab, [facility] [address] [place], [place] [id number] Quin Connor MD [address] [place], [place] [id number] Sleep Apnea Device Allergies Active Allergy Reactions [...] Tablet Delayed ReleaseIndications: Coronary artery disease involving [place] coronary artery of [place] heart without angina pectoris Take 1 Tablet [...] Oral Tablet (Lipitor)Indication s:Coronary artery disease involving [place] coronary artery of [place] heart without angina pectoris Take 1 Tablet [...] failure 10/21/2023 Coronary artery disease invo lving [place] heart without angina pectoris 06/08/2023 Hepatic steatosis [...] Classification Neurogenic claudication 03/15/201509/21 Neurogenic claudication 03/15/2015 05/10/2017 Pain of left calf 03/01/2015 01/20/2018 Tobacco [...] encounter Miscellaneous Notes * Telephone Encounter - Vira Ann, [facility] - 01/04/2024 10:58 AM EDT Data downloaded, verified and scored. Physician notified that the OCST study is ready for review and interpretation. HST ordered by DRAGAN Worthy @ [facility]. L out: 9:50 pm to L on: 7:27 am FRANCISCO: 52.4 (3%) Lowest SpO2: 62% 48.3 (4%) Study routed to Dr. Connor in [place]. ESS: 6 The patient was instructed to not use his O2 with the HST. He told me that he is to have back surgery later this month. documented in this encounter Plan of Treatment Upcoming Encounters Date Type Department Care Team (Late st Contact Info) Description 01/04/2024 12:20 PM EDT Office Visit Pulmonary Medicine, [facility] [address] [facility] [place] [address] Colton Montana, DO [address] [place] [address] 06/14/2024 11:40 AM EDT Office Visit [facility] [address] [place] [address] Omer Wayne MD [address] [place] [address] Health Maintenance Due Date Last [...] this encounter Medical Devices Implanted Type Area Concrete Analyst Device Identifier Shelf Expiration Date Model / Serial / Lot Mesh Plug Prefix [id number] [id number] - [id number] Implanted:Qty: 1 on 03/12/2018 by Donovan Raza MD at OR [facility] Right: Ingrid ALVARADO BARD : DAVOL 10/21/2018 [id number] / / [id number] documented as of this encounter Care Teams Pre Sales Technical Consultant Relationship Specialty Start Date End Date Omer Wayne MD [address] [place] [address] PCP - General 02/19/05 documented as of this encounter
--- OUTSIDE RECORDS SUMMARY | 2024-01-13 21:49 | External Medical Summary | Summary of Care ---
Author Name Unknown Organization [facility] Address [address] [facility] [address] Phone [phone] Care Team Providers Care Flight Reservations Manager Name Role Phone Omer Wayne MD Primary Care Provider [phone]- [phone] Reason for Visit * Reason Onset Date Comments Sleep Apnea Device 12/30/2023 Encounter Details Date Type Department Care Team (Late st Contact Info) Description 12/30/2023 Telephone [facility] [address] [facility] [place] [id number] Shelley Wells CRNP [address] [place] [address] Sleep Apnea Device Allergies Active Allergy Reactions [...] Information Patient not taking.Reported on 10/21/2023 Umeclidinium [place] 62.5 MCG/ACT Inhalation Aerosol Powder Breath Activated [...] encounter Miscellaneous Notes * Telephone Encounter - Konstantin Molina OSA - 12/30/2023 3:36 PM EDT Patient picking up sleep study in [facility]. Will drop off at [facility]. * Addendum Note - Shelley Wells CRNP - 12/30/2023 12:50 PM EDTAddended by: SHELLEY WLELS on: 12/30/2023 12:50 PM Modules accepted: Orders * Telephone Encounter - Raquel Sanchez LPN - 12/30/2023 9:08 AM EDT Please do an order for an HST. Pt will be contacted to brain picker the HST at [facility] where he will be instructed to return it. Please set up the appt and call the pt with the time and date. * Telephone Encounter - Jennifer Harper RPSGT - 12/30/2023 4:29 AM EDT Patient [...] order. Patient will be put on the [facility] Schedule for 12/30/23. He seemed to not want to travel from [place] to [place] to brain picker the HST but said he will do what is necessary. If possible, could the unit be returned to [facility] to save him travel and then the unit sent with either Javad Almeida Amy, or Sadie to the [facility] Sleep Lab or Pulmonary office? Anabella Garcia - [id number] - was configured for the patient to brain picker. documented in this encounter Plan of Treatment Upcoming Encounters Date Type Department Care Team (Late st Contact Info) Description 01/01/2024 3:00 PM EDT Office Visit [facility] [address] [facility] [address] Anabela Lopez MD [address] [facility] [place] [id number] 01/04/2024 12:20 PM EDT Office Visit Pulmonary Medicine, [facility] [address] [facility] [place] [address] Colton Montana, DO [address] [place] [address] 06/14/2024 11:40 AM EDT Office Visit [facility] [address] [place] [address] Omer Wayne MD [address] [place] [address] Scheduled Orders Name Type Priority Associated Diagnoses Orde r Schedule SLEEP TEST W/ TYPE 3 PORTABLE MONITOR, 4 CHANNEL; AT HOME Procedures Routine Habitual snoring Obstructive sleep apnea Sleep related gastroesophageal reflux disease Morning headache Insomnia, unspecified type COPD, group D, by GOLD 2017 classification ([facility]) BMI 32.0-32.9,adult Nocturnal hypoxemia Ordered: [...] Screening 07/12/2020 07/12/2019 COVID-19 Vaccine ( - 2022- season) 2023 Influenza Vaccine (FLU shot) (Season [...] this encounter Medical Devices Implanted Type Area Machine Crater Device Identifier Shelf Expiration Date Model / Serial / Lot Mesh Plug Prefix Lg [id number] - [id number] Implanted:Qty: 1 on 03/12/2018 by Donovan Raza MD at OR [facility] Right: Groin CR BARD : DAVOL 10/21/2018 [id number] / / [id number] documented as of this encounter Visit Diagnoses Diagnosis Habitual snoring- Primary Obstructive sleep apnea Obstructive sleep apnea (adult) (pediatric) Sleep related gastroesophageal reflux disease Esophageal reflux Morning headache Headache Insomnia, unspecified type COPD, group D, by GOLD 2017 classification ([facility]) BMI 32.0-32.9,adult Body Mass Index 32.0-32.9, adult Nocturnal hypoxemia Hypoxemia documented in this encounter Care Teams Flight Reservations Manager Relationship Specialty Start Date End Date Omer Wayne MD [address] [place] [address] PCP - General 02/19/05 documented as of this encounter
[2024-01-14] MEDS: POLYETHYLENE (MIRALAX) 17 GM PACK PO SCH (05:06)
[2024-01-14] MEDS: dexAMETHasone 6 MG in SYRINGE 0 ML IV SCH (08:12)
[2024-01-14] MEDS: FOLIC ACID 1 MG TAB PO SCH (08:13)
[2024-01-14] MEDS: ASPIRIN 81 MG ECTAB PO SCH (08:13)
[2024-01-14] MEDS: FUROSEMIDE 20 MG TAB PO SCH (08:13)
[2024-01-14] MEDS: POTASSIUM CHLORIDE CRTAB 20 MEQ TABCR PO SCH (08:13)
[2024-01-14] MEDS: ATORVASTATIN 40 MG TAB PO SCH (08:14)
[2024-01-14] MEDS: FLUTICASONE FUROATE 200MCG 14 PUFFS/INHALER INH SCH (08:15)
[2024-01-14] MEDS: THIAMINE HCL 100 MG TAB PO SCH (08:15)
[2024-01-14] MEDS: UMECLIDINIUM/VILANTEROL 62.5/25MCG 7 PUFFS/INHALER INH SCH (08:15)
[2024-01-14 08:16] LABS: Basophils # (auto) 0.01 K/uL (0.00-0.20); Basophils % (auto) 0.1 %; Hematocrit (blood only) 32.2 % (42.0-52.0); Hemoglobin 10.9 g/dl (14.0-18.0); Immature Granulocytes # (auto) 0.22 K/uL (0.01-0.20); Immature Granulocytes % (auto) 1.7 %; Lymphocytes # (auto) 0.69 K/uL (1.20-3.40); Lymphocytes % (auto) 5.4 %; Mean Corpuscular Hgb Conc 33.9 g/dL (32.0-36.0); Mean Corpuscular Volume 97.6 fL (80.0-100.0); Mean Platelet Volume 10.7 fL (9.4-12.4); Monocytes # (auto) 1.34 K/uL (0.11-0.59); Monocytes % (auto) 10.5 %; Neutrophils # (auto) 10.48 K/uL (1.40-6.50); Neutrophils % (auto) 82.3 %; Nucleated RBC # (auto) 0.02 K/uL (0.00-0.12); Nucleated RBC % (auto) 0.2 %; Platelet Count 152 K/uL (130-400); RDW Coefficient of Variation 12.9 % (11.5-14.5); RDW Standard Deviation 46.1 fL (36.4-46.3); White Blood Count 12.74 K/ul (4.8-10.8)
[2024-01-14 08:33] LABS: Calcium 8.9 mg/dl (8.6-10.3); Creatinine Clr Calc Pharmacy 100.3 ml/min; Est GFR (African American) 94.4 ml/min; Est GFR (Non-African American) 81.4 ml/min; Potassium 3.1 mmol/L (3.5-5.1)
[2024-01-14] MEDS ORDERED: NON-FORMULARY MEDICATION (Fluticasone-Umeclidin-Vilanter [Trelegy Ellipta] 200-62.5-25 mcg INH SCH (09:00)
--- NOTE | 2024-01-14 10:58 | Orthopedic Progress Note ---
Date of Service January 14, 2024 Assessment & Plan (1) Neurogenic claudication due to lumbar spinal stenosis: Plan: At this time we will continue physical therapy monitor his ATTILA output hopefully discharge home in the next few days. Admission and Anticipated Discharge Date Admission Date: January 13, 2024 Subjective Back pain controlled leg pain improved. Physical Exam Physical Exam: Patient sitting up at the bedside. He is comfortable. Distracted testing. Results & Data Vital Signs (Past 12 Hours) Vital Signs Temp Pulse Resp BP Pulse Ox O2 Del Method 01/14/24 08:57 36.3 C L 76 16 127/80 92 Room Air 01/14/24 03:10 36.7 C 64 14 116/82 96 Room Air 01/13/24 23:00 36.3 C L 70 16 132/81 94 Room Air
[2024-01-14] MEDS: GABAPENTIN 600 MG TAB PO SCH (11:50)
[2024-01-14] MEDS: POTASSIUM CHLORIDE / WTR 10 MEQ/100 ML PLCT IV SCH (11:52)
[2024-01-14] MEDS: ACETAMINOPHEN 500 MG TAB PO PRN (15:16)
[2024-01-14 16:38] LABS: BUN Creatinine Ratio 13.1 (10-20); Calcium 8.8 mg/dl (8.6-10.3); Creatinine Clr Calc Pharmacy 93.7 ml/min; Est GFR (Non-African American) 75.1 ml/min; Potassium 3.6 mmol/L (3.5-5.1)
--- NOTE | 2024-01-14 17:21 | Hospitalist Progress Note ---
Date of Service January 14, 2024 Assessment & Plan (1) Neurogenic claudication due to lumbar spinal stenosis: (2) Chronic obstructive pulmonary disease: (3) Alcohol use disorder: (4) Hypertension: (5) Obesity (BMI 30.0-34.9): Plan This is a 58-year-old male who has significant past medical history of HTN, HLD, COPD, renal artery stenosis, grade 1 diastolic dysfunction, CAD, hepatic steatosis, plaque psoriasis and tobacco dependence who presents for elective procedure by Dr. Brenner. #Neurogenic claudication due to lumbar spinal stenosis Status post L3-S1 lumbar decompression fusion by Dr. Brenner, POD #1 EBL 100 mL, monitor ATTILA drain output Pain/wound management per orthopedics Activity and therapy as prescribed orthopedic Encourage incentive spirometry, wean oxygen as able, but continue oxygen overnight #Hypokalemia replaced PO and IV Repeat am BMP #Acute on chronic anemia, 2/2 post op losses pre op hgb 12.5, 10.9 this am Repeat CBC in am for stabilization #Alcohol use disorder Patient continues to persistently drink, drank 1/5 of alcohol last evening RAFA as per protocol with gabapentin taper Daily thiamine and folic acid, he is requesting a refill of this prescription at discharge Monitor closely for as needed Ativan, none administered thus far #Tobacco abuse Patient has currently abstained for the last 2 weeks Continue to encourage behavior #Obstructive sleep apnea Currently following with outpatient sleep medicine Continue oxygen at at bedtime while awaiting sleep device #Chronic HFpEF #Hypertension Continue Coreg and Lasix Daily weight, strict intake and output Will need a heart healthy, low-sodium diet when advanced #COPD Recent hospitalization secondary to RSV infection Continue Trelegy, DuoNeb and hypertonic saline No acute exacerbation Wean oxygen as able, now on room air #Anxiety Currently patient on trial of BuSpar although he states he is taking it as needed He is encouraged not to take medication in combination with alcohol #Obesity BMI 30.9, encourage diet lifestyle modification when physically able DVT ppx: SCDS Full code PCP: Dr. Wayne Dispo: per primary Thank you for this consultation. We will follow the patient with you during their hospital stay. You can reach a member of the [facility] Hospitalist Team 13/04 via hospitalist role on tiger text. Admission and Anticipated Discharge Date Admission Date: January 13, 2024 Subjective Patient evaluated in bedside chair, denies any new concerns Reports ambulating hallway and feeling much better than initially anticipated Physical Exam Constitutional: WD/WN, vitals as above Respiratory: normal respiratory effort, lungs clear to auscultation Cardiovascular: RRR, no murmur, no edema Gastrointestinal (Abdomen): normal bowel sounds, soft, nontender, no hepatosplenomegaly Results & Data Results & Data Vital Signs (Past 12 Hours) Vital Signs Temp Pulse Pulse Resp BP Pulse Ox O2 Del Method 01/14/24 15:08 36.9 C 76 16 111/74 96 Room Air 01/14/24 11:44 36.6 C 80 18 97/63 L 92 Room Air 01/14/24 08:57 36.3 C L 76 16 127/80 92 Room Air Laboratory Results Short CBC 01/14/24 Range/Units 07:29 WBC 12.74 H (4.8-10.8) K/ul Hgb 10.9 L (14.0-18.0) g/dl Hct 32.2 L (42.0-52.0) % Plt Count 152 (130-400) K/uL BMP 01/14/24 01/14/24 07:29 15:55 Sodium 136 132 L Potassium 3.1 L 3.6 Chloride 97 L 95 L Carbon Dioxide 30 28 BUN 10 14 Creatinine 1.00 1.07 Glucose 138 H 130 H Calcium 8.9 8.8 Medications Administered Home Medications Medication Instructions Recorded Confirmed Last Taken albuterol sulfate 90 mcg/actuation 2 puff inhalation Q4H PRN 03/09/23 01/13/24 01/12/24 aerosol inhaler Shortness Of Breath Or Wheezing #8.5 grams aspirin 81 mg tablet,delayed 81 mg PO QAM #30 tabs 03/09/23 01/13/24 01/10/24 release atorvastatin 80 mg tablet 80 mg PO QAM 03/16/23 01/13/24 01/13/24 07:00 baclofen 10 mg tablet 10 mg PO TID PRN Muscle Spasm 06/09/23 01/13/24 Unknown gabapentin 300 mg capsule 300 mg PO TID PRN Pain 06/09/23 01/13/24 01/06/24 ipratropium 0.5 mg-albuterol 3 mg 3 ml inhalation Q6H PRN 06/11/23 01/13/24 01/08/24 (2.5 mg base)/3 mL nebulization wheezing/severe shortness of soln breath #90 mL furosemide 20 mg tablet 20 mg PO QAM 10/14/23 01/13/24 01/12/24 potassium chloride 20 mEq 20 meq PO QAM 10/14/23 01/13/24 01/12/24 tablet,extended release folic acid 1 mg tablet 1 mg PO QAM #30 tabs 12/07/23 01/13/24 01/06/24 guaifenesin 600 mg tablet, 600 mg PO BID #60 tabs 12/07/23 01/13/24 12/30/23 extended release 12 hr (Mucinex) sodium chloride 7 % for 4 ml inhalation BIDR 12/07/23 01/13/24 Unknown nebulization secretion/mucus clearance #240 mL buspirone 5 mg tablet 5 mg PO TID PRN Anxiety 12/28/23 01/13/24 01/12/24 23:00 carvedilol 12.5 mg tablet 37.5 mg PO BID 12/28/23 01/13/24 01/13/24 07:00 fluticasone fur. 200 mcg-umeclid 1 inh inhalation QAM 12/28/23 01/13/24 01/13/24 07:00 62.5 mcg-vilant 25 mcg inhalat.powder (Trelegy Ellipta) oxycodone 5 mg tablet 5 mg PO Q6H PRN pain #30 tabs 01/14/24 Unknown tramadol 50 mg tablet 50 mg PO Q6H PRN pain, moderate 01/14/24 Unknown #30 tabs Active Medications Generic Name Dose Route Start Last Admin Trade Name Freq PRN Reason Stop Dose Admin Acetaminophen 1,000 mg 01/13/24 14:33 01/14/24 15:16 Acetaminophen 500 Mg Tab PO 02/12/24 14:32 1,000 mg Q8H PRN Administration MILD Pain Scale 1,2,3 & Pre PT Aspirin 81 mg 01/14/24 09:00 01/14/24 08:13 Aspirin 81 Mg Ectab PO 02/13/24 08:59 81 mg QAM MARANDA Administration Atorvastatin Calcium 80 mg 01/14/24 09:00 01/14/24 08:14 Atorvastatin 40 Mg Tab PO 02/13/24 08:59 80 mg QAM MARANDA Administration Carvedilol 37.5 mg 01/13/24 21:00 01/14/24 08:14 Carvedilol 12.5 Mg Tab PO 02/12/24 20:59 37.5 mg BID MARANDA Administration Fluticasone Furoate 1 puffs 01/14/24 09:00 01/14/24 08:15 Fluticasone Furoate 200mcg 14 Puffs/Inhaler INH 02/13/24 08:59 1 puffs DAILY MARANDA Administration Folic Acid 1 mg 01/14/24 09:00 01/14/24 08:13 Folic Acid 1 Mg Tab PO 02/13/24 08:59 1 mg QAM MARANDA Administration Furosemide 20 mg 01/14/24 09:00 01/14/24 08:13 Furosemide 20 Mg Tab PO 02/13/24 08:59 20 mg QAM MARANDA Administration Gabapentin 600 mg 01/14/24 12:00 01/14/24 11:50 Gabapentin 600 Mg Tab PO 01/15/24 04:01 600 mg Q8H MARANDA Administration Guaifenesin 600 mg 01/13/24 21:00 01/14/24 08:14 Guaifenesin 600 Mg Tabcr PO 02/12/24 20:59 600 mg BID MARANDA Administration Hydromorphone HCl 0.5 mg 01/13/24 14:33 01/13/24 15:04 Hydromorphone Inj 0.5 Mg/0.5 Ml Syr IV 01/27/24 14:32 0.5 mg Q3H PRN Administration MODERATE Pain (Scale 4,5,6) & Pre PT Hydromorphone HCl 1 mg 01/13/24 14:33 01/13/24 20:15 Hydromorphone Inj 1 Mg/Ml Syringe IV 01/27/24 14:32 1 mg Q3H PRN Administration SEVERE Pain (Scale 7,8,9,10) Dexamethasone 6 mg/ Syringe 1.5 mls @ 1 mls/min 01/14/24 09:00 01/14/24 08:12 IV 01/16/24 09:02 1 mls/min DAILY MARANDA Administration Oxycodone HCl 5 - 10 mg 01/13/24 14:33 01/14/24 15:59 Oxycodone Hcl Ir 5 Mg Tab (Immediate Release) PO 01/27/24 14:32 10 mg Q4H PRN Administration Pain & Pre PT Potassium Chloride 20 meq 01/14/24 09:00 01/14/24 08:13 Potassium Chloride Crtab 20 Meq Tabcr PO 02/13/24 08:59 20 meq QAM MARANDA Administration Senna/Docusate Sodium 2 tab 01/13/24 21:00 01/13/24 20:17 Docusate Sodium/Senna 50/8.6mg Tab PO 02/12/24 20:59 2 tab HS MARANDA Administration Sodium Chloride 4 ml 01/13/24 19:00 01/14/24 07:09 Sodium Chlor 7% 4 Ml Neb INH 02/12/24 18:59 Not Given BIDR MARANDA Thiamine HCl 100 mg 01/14/24 09:00 01/14/24 08:15 Thiamine Hcl 100 Mg Tab PO 02/13/24 08:59 100 mg QAM MARANDA Administration Tramadol HCl 50 - 100 mg 01/13/24 14:33 01/13/24 16:27 Tramadol Hcl 50 Mg Tablet PO 02/12/24 14:32 50 mg Q4H PRN Administration Moderate-Severe pain & Pre PT Umeclidinium/Vilanterol 1 puffs 01/14/24 09:00 01/14/24 08:15 Umeclidinium/Vilanterol 62.5/25mcg 7 Puffs/Inhaler INH 02/13/24 08:59 1 puffs DAILY MARANDA Administration (2) Chronic obstructive pulmonary disease COPD type: COPD with acute exacerbation Qualified Code(s): J44.1 - Chronic obstructive pulmonary disease with (acute) exacerbation
[2024-01-15 08:43] LABS: Hematocrit (blood only) 32.2 % (42.0-52.0); Hemoglobin 10.5 g/dl (14.0-18.0); Mean Corpuscular Hemoglobin 32.6 pg (25.0-34.0); Mean Corpuscular Hgb Conc 32.6 g/dL (32.0-36.0); Mean Platelet Volume 10.8 fL (9.4-12.4); Nucleated RBC # (auto) 0.07 K/uL (0.00-0.12); Nucleated RBC % (auto) 0.4 %; Platelet Count 193 K/uL (130-400); RDW Coefficient of Variation 13.1 % (11.5-14.5); Red Blood Count 3.22 M/uL (4.70-6.10); White Blood Count 16.63 K/ul (4.8-10.8)
[2024-01-15 09:06] LABS: BUN Creatinine Ratio 18.7 (10-20); Calcium 8.6 mg/dl (8.6-10.3); Creatinine Clr Calc Pharmacy 110.1 ml/min; Est GFR (African American) 105.8 ml/min; Est GFR (Non-African American) 91.3 ml/min; Potassium 3.3 mmol/L (3.5-5.1)
--- NOTE | 2024-01-15 10:09 | Discharge Summary ---
Date of Service January 15, 2024 Admission HPI Per Admitting Provider This is a 58-year-old male who presents with chronic persistent back and bilateral leg pain and failing since course of nonoperative care is here for surgical invention. Principal Diagnosis Lumbar spinal stenosis with neurogenic claudication Discharge Data Allergies Allergy/AdvReac Type Severity Reaction Status Date / Time TONIA Inhibitors AdvReac Severe ALESSANDRO Verified 01/13/24 09:28 ARB-Angiotensin Receptor AdvReac Severe ALESSANDRO Verified 12/28/23 09:35 Antagonist prednisone AdvReac Mild "jitterines Verified 12/28/23 09:35 s" Consultations 01/13/24 14:33 Consult Hospitalist Routine Procedures Performed Operation Date: 01/13/24 10:35 Actual Procedures p L3-L5 Decompression and Fusion, Spinal Cord Monitoring(Not Applicable) - Ronn Brenner DO Ordered Studies 01/13/24 07:00 FL lumbar spine 2-3V Routine Hospital Course (1) Neurogenic claudication due to lumbar spinal stenosis: Patient with lumbar decompression fusion tolerated as well as taken to the orthopedic floor postoperative. Patient progressed appropriately postoperative. Drain decreasing appropriate. Excellent strength testing. Pain well- controlled. Subsidy discharged home. Discharge orders instructions from the chart for further review. Total Time Total Time Spent Total Time Spent (In Minutes): 20 minutes Discharge Plan Discharge Items Patient Disposition: Home - Self-Care Reason For Visit: Lumbar Foraminal Stenosis, History of Laminectomy, Discharge Diagnosis: Lumbar spinal stenosis with neurogenic claudication Activity: As commented below Non-emergency contact: Primary Care Provider Call non-emergency contact if: you have any medication questions Follow-up/Referrals: Ronn Brenner DO [Surgeon] - Omer Wayne MD [Primary Care Provider] - (Date & Time 01/21/2024 9:40 AM Provider Yaniv Hurtado MD Department [facility] ) Diet: Regular Addtl Attending Provider Instructions: ACTIVITY RECOMMENDATIONS: SELF CARE INSTRUCTIONS AFTER THORACIC/LUMBAR FUSIONS 1. You may walk to your tolerance. It is good exercise for your legs and back. Expect some back and intermittent leg aches and pains. 2. You may perform "counter-top" level activities (make a sandwich, maya with a project, etc.). 3. No bending or lifting of more than 10 pounds or back twisting of any nature (roll like a log when turning in bed). 4. You may ride in a car for 20-30 minutes at a time. No driving until after your first visit with your doctor. 5. Frequent changes of position and restricting sitting to 30 minutes at a time will help limit the amount of back spasms and stiffness you may experience. 6. You may discontinue the use of ambulatory aids (cane, crutches, etc.) once your strength and confidence allow. 7. You may tutoring manager the shower and let water strike your incision when you arrive home at least once daily. Do not take a tub bath, sit in a hot tub or go into a swimming pool until after your first recheck in the office. SPECIAL CARE INSTRUCTIONS: VERY IMPORTANT TO READ AND REVIEW A. Your surgical incision has been closed with a cosmetic suture under the skin that will dissolve in about 6 weeks. In 14 days, you can use a pair of clean scissors and cut the suture that is left outside of the skin at the ends of your incision. 1. The small skin tapes can be removed 7 days after surgery if they have not fallen off by that point. 2. You may keep the wound open to air as much as possible to promote healing after post-op day number 5 unless told otherwise by your doctor. 3. If you think the wound looks like it is becoming infected (redness or worsening drainage) and/or you are experiencing fever, chill or worsening back pain and muscle spasms, contact the office so that we may evaluate you as soon as possible. B. Complications are uncommon, but please contact us if you have any signs or symptoms of: 1. wound infection (fever higher than 102.5 degrees F, redness, separation of wound, drainage, or increasing pain from the incision) 2. blood clots in legs (pain, swelling, redness and warmth in legs) 3. urinary tract infection (fever higher than 102.5 degrees F, burning upon urination or increased frequency of urination) 4. nerve problems (inability to walk on your toes or heels, numbness, loss of bowel or bladder control) 5. any other symptoms that concern you C. Please call the office at if you have any concerns or questions about your operation or recovery. D. No smoking! Smoking drastically decreases the chance of a solid fusion. E. Do not take any anti-inflammatory medications (Indocin, Advil, Motrin, Aspirin, Naprosyn, etc.) as these may inhibit the chance of a solid fusion. Tylenol is okay to take for pain. MANAGING PAIN AFTER SPINAL SURGERY 1. Narcotic medication is intended for short-term use and will be provided for surgical pain. Surgical pain usually lasts for a period of 4-6 weeks. Narcotic medication includes Percocet, Vicodin, Darvocet, Tylenol #3 or Lortab. 2. Longer-term pain is more appropriately treated with non-narcotic medication such as Tylenol ES. 3. Muscle spasm is not appropriately treated with narcotics. Muscle relaxers such as Soma, Flexeril or Skelaxin can be used along with Tylenol ES. 4. Remember that we all live with some "aches and pains". This is not unusual or uncommon after an injury or as we get older. a. Back pain is expected and may include muscle spasms for 4 to 6 weeks after surgery. The pain should gradually improve. If the pain worsens for no apparent reason, please contact the office. b. Intermittent leg pain may also be experienced and should not be concerned about unless it worsens for no apparent reason. If so, please contact the office. 5. We will provide appropriate medication within the normal guidelines of their prescribed use. We will also be very cautious and aware of potential abuse and extended duration of patients' medication needs. a. Pain medications are for your comfort and to assist with sleep and rest so that the tissue can heal. They are not provided in order to return to normal activity and should not be used through the day. To do so or worsening pain at night can result from ongoing tissue damage and development of tolerance to the prescribed medicine. 6. Please allow 2-3 days to process refills. Prescriptions will not be mailed but must be picked up at the office. FOLLOW UP VISIT: Keep your scheduled follow-up appointment. Any questions, please call the office at . Pending Studies at Discharge: No Stand-Alone Forms: [employer], Smoking Cessation Medications and DC Order Prescriptions: New tramadol 50 mg tablet 50 mg PO Q6H PRN (Reason: pain, moderate) Qty: 30 0RF oxycodone 5 mg tablet 5 mg PO Q6H PRN (Reason: pain) Qty: 30 0RF Continued atorvastatin 80 mg tablet 80 mg PO QAM aspirin 81 mg Tablet,Delayed Release (Dr/Ec) 81 mg PO QAM Qty: 30 0RF albuterol sulfate 90 mcg/actuation HFA aerosol inhaler 2 puff inhalation Q4H PRN (Reason: Shortness Of Breath Or Wheezing) Qty: 8.5 0RF gabapentin 300 mg capsule 300 mg PO TID PRN (Reason: Pain) baclofen 10 mg tablet 10 mg PO TID PRN (Reason: Muscle Spasm) ipratropium-albuterol 0.5 mg-3 mg(2.5 mg base)/3 mL solution for nebulization 3 ml inhalation Q6H PRN (Reason: wheezing/severe shortness of breath) Qty: 90 0RF Patient Comments: has not been using this 12/28/23 furosemide 20 mg tablet 20 mg PO QAM potassium chloride 20 mEq tablet extended release 20 meq PO QAM sodium chloride 7 % solution for nebulization 4 ml inhalation BIDR Qty: 240 0RF Patient Comments: finished with this 12/28/23 folic acid 1 mg Tablet 1 mg PO QAM Qty: 30 0RF guaifenesin [Mucinex] 600 mg tablet extended release 12hr 600 mg PO BID Qty: 60 0RF Patient Comments: finished with this 12/28/23 buspirone 5 mg tablet 5 mg PO TID PRN (Reason: Anxiety) carvedilol 12.5 mg tablet 37.5 mg PO BID Trelegy Ellipta 200-62.5-25 mcg blister with device 1 inh inhalation QAM Discharge Orders: Discharge Order (Routine); Ordered 01/15/24 Ordered By: Ronn Brenner Admission Data Admit Date/Time: 01/13/24 13:19 Attending Provider: Ronn Brenner Admit Provider: Ronn Brenner Primary Care Provider: Omer Wayne Other Providers: Rajwinder Mcclellan
[2024-01-15] MEDS ORDERED: GABAPENTIN 600 MG TAB PO SCH (16:00)
--- NOTE | 2024-01-15 16:14 | Hospitalist Progress Note ---
Date of Service January 15, 2024 Assessment & Plan (1) Neurogenic claudication due to lumbar spinal stenosis: (2) Chronic obstructive pulmonary disease: (3) Alcohol use disorder: (4) Hypertension: (5) Obesity (BMI 30.0-34.9): Plan This is a 58-year-old male who has significant past medical history of HTN, HLD, COPD, renal artery stenosis, grade 1 diastolic dysfunction, CAD, hepatic steatosis, plaque psoriasis and tobacco dependence who presents for elective procedure by Dr. Brenner. #Neurogenic claudication due to lumbar spinal stenosis Status post L3-S1 lumbar decompression fusion by Dr. Brenner, POD #2 EBL 100 mL, monitor ATTILA drain output Pain/wound management per orthopedics Activity and therapy as prescribed orthopedic Encourage incentive spirometry continue oxygen overnight #Hypokalemia resolved #Acute on chronic anemia, 2/2 post op losses pre op hgb 12.5, 10.9 this am Stable, follow up as OP #Alcohol use disorder Patient continues to persistently drink, drank 1/5 of alcohol last evening Encouraged cessation and to seek resources with PCP if desired #Tobacco abuse Patient has currently abstained for the last 2 weeks Continue to encourage behavior #Obstructive sleep apnea Currently following with outpatient sleep medicine Continue oxygen at at bedtime while awaiting sleep device #Chronic HFpEF #Hypertension Continue Coreg and Lasix #COPD Recent hospitalization secondary to RSV infection Continue Trelegy, DuoNeb and hypertonic saline No acute exacerbation #Anxiety Currently patient on trial of BuSpar although he states he is taking it as needed He is encouraged not to take medication in combination with alcohol #Obesity BMI 30.9, encourage diet lifestyle modification when physically able DVT ppx: SCDS Full code PCP: Dr. Wayne Dispo: per primary Thank you for this consultation. We will follow the patient with you during their hospital stay. You can reach a member of the [facility] Hospitalist Team 13/04 via hospitalist role on tiger text. Admission and Anticipated Discharge Date Admission Date: January 13, 2024 Subjective Patient evaluated at bedside , denies any new concerns Patient denies chest pain, SOB, palpitations or other acute concerns, eager for dispo Physical Exam Constitutional: WD/WN, vitals as above Respiratory: normal respiratory effort, lungs clear to auscultation Cardiovascular: RRR, no murmur, no edema Results & Data Results & Data Vital Signs (Past 12 Hours) Vital Signs Temp Pulse Pulse Resp BP BP Pulse Ox 01/15/24 10:23 36.5 C 80 70 16 101/53 L 115/75 97 01/15/24 07:22 70 16 97 01/15/24 07:11 36.5 C 87 16 115/75 97 O2 Del Method 01/15/24 10:23 01/15/24 07:22 Room Air 01/15/24 07:11 Room Air Laboratory Results Short CBC 01/15/24 Range/Units 07:51 WBC 16.63 H (4.8-10.8) K/ul Hgb 10.5 L (14.0-18.0) g/dl Hct 32.2 L (42.0-52.0) % Plt Count 193 (130-400) K/uL BMP 01/14/24 01/15/24 15:55 07:51 Sodium 132 L 137 Potassium 3.6 3.3 L Chloride 95 L 99 Carbon Dioxide 28 30 BUN 14 17 Creatinine 1.07 0.91 Glucose 130 H 114 H Calcium 8.8 8.6 Medications Administered Home Medications Medication Instructions Recorded Confirmed Last Taken albuterol sulfate 90 mcg/actuation 2 puff inhalation Q4H PRN 03/09/23 01/13/24 01/12/24 aerosol inhaler Shortness Of Breath Or Wheezing #8.5 grams aspirin 81 mg tablet,delayed 81 mg PO QAM #30 tabs 03/09/23 01/13/24 01/10/24 release atorvastatin 80 mg tablet 80 mg PO QAM 03/16/23 01/13/24 01/13/24 07:00 baclofen 10 mg tablet 10 mg PO TID PRN Muscle Spasm 06/09/23 01/13/24 Unknown gabapentin 300 mg capsule 300 mg PO TID PRN Pain 06/09/23 01/13/24 01/06/24 ipratropium 0.5 mg-albuterol 3 mg 3 ml inhalation Q6H PRN 06/11/23 01/13/24 01/08/24 (2.5 mg base)/3 mL nebulization wheezing/severe shortness of soln breath #90 mL furosemide 20 mg tablet 20 mg PO QAM 10/14/23 01/13/24 01/12/24 potassium chloride 20 mEq 20 meq PO QAM 10/14/23 01/13/24 01/12/24 tablet,extended release folic acid 1 mg tablet 1 mg PO QAM #30 tabs 12/07/23 01/13/24 01/06/24 guaifenesin 600 mg tablet, 600 mg PO BID #60 tabs 12/07/23 01/13/24 12/30/23 extended release 12 hr (Mucinex) sodium chloride 7 % for 4 ml inhalation BIDR 12/07/23 01/13/24 Unknown nebulization secretion/mucus clearance #240 mL buspirone 5 mg tablet 5 mg PO TID PRN Anxiety 12/28/23 01/13/24 01/12/24 23:00 carvedilol 12.5 mg tablet 37.5 mg PO BID 12/28/23 01/13/24 01/13/24 07:00 fluticasone fur. 200 mcg-umeclid 1 inh inhalation QAM 12/28/23 01/13/24 01/13/24 07:00 62.5 mcg-vilant 25 mcg inhalat.powder (Trelegy Ellipta) oxycodone 5 mg tablet 5 mg PO Q6H PRN pain #30 tabs 01/14/24 Unknown tramadol 50 mg tablet 50 mg PO Q6H PRN pain, moderate 01/14/24 Unknown #30 tabs (2) Chronic obstructive pulmonary disease COPD type: COPD with acute exacerbation Qualified Code(s): J44.1 - Chronic obstructive pulmonary disease with (acute) exacerbation
[2024-01-17] MEDS ORDERED: GABAPENTIN 600 MG TAB PO SCH (04:00)
== END 2024-01-15 12:15 | disposition home or self-care (01) | DRG 454 ==
LOC: ASU 08:54 → 3N 13:19
DX: J44.9 Chronic obstructive pulmonary disease, unspecified; I11.0 Hypertensive heart disease with heart failure; I70.1 Atherosclerosis of renal artery; K76.0 Fatty (change of) liver, not elsewhere classified; I50.32 Chronic diastolic (congestive) heart failure; M48.062 Spinal stenosis, lumbar region with neurogenic claudication; M43.16 Spondylolisthesis, lumbar region; Z79.82 Long term (current) use of aspirin; F10.10 Alcohol abuse, uncomplicated; I25.10 Atherosclerotic heart disease of native coronary artery without angina pectoris; E87.6 Hypokalemia; Z99.81 Dependence on supplemental oxygen; F17.210 Nicotine dependence, cigarettes, uncomplicated; M51.16 Intervertebral disc disorders with radiculopathy, lumbar region; Z87.891 Personal history of nicotine dependence; E66.9 Obesity, unspecified; Z83.3 Family history of diabetes mellitus; Z68.30 Body mass index [BMI] 30.0-30.9, adult; D64.9 Anemia, unspecified

== ENCOUNTER 2024-10-17 21:36 | Inpatient (IN) ==
--- NOTE | 2024-10-17 22:05 | Emergency Department Note ---
Impression & Plan Anemia, Near syncope ED Provider Note Diagnosis: Anemia, near syncope Disposition: Admission CHIEF COMPLAINT: Near syncopal event HPI: Patient is a 59-year-old male presenting status post near syncopal event. Patient states he felt lightheaded and went to the ground but did not pass out. Patient denies hitting his head. Patient denies neck or back pain. Patient denies active chest pain. Patient states that over the past couple weeks time he has had trouble walking greater than 10 feet. Patient does have a history of COPD. Patient does not reportedly have a documented history of CHF. Patient has been coughing up clear sputum. Patient denies any fevers. PAST MEDICAL HISTORY: See Below PAST SURGICAL HISTORY: See Below SOCIAL HISTORY: See Below HOME MEDICATIONS: See Below ALLERGIES: See Below VITALS: See Below PHYSICAL EXAMINATION: GENERAL: Well appearing, well nourished, NAD, non-toxic. EYE EXAM: Normal conjunctiva. OROPHARYNX: Moist mucus membranes. Grossly normal dentition. NECK: Supple, LUNGS: Clear to auscultation. Normal chest wall mechanics. HEART: NSR ABDOMEN: Abdomen soft, non-tender, normo-active bowel sounds, no masses, no rebound or guarding BACK: No CVA TTP. SKIN: No rashes and no bruising. UPPER EXTREMITIES: Upper extremities are grossly normal LOWER EXTREMITIES: Grossly normal, no edema. NEURO EXAM: A&O x3,, normal speech, moves all 4 extremities PSYCH: Cooperative MEDICAL DECISION MAKING: History obtained from: Patient ER Course: Patient is a 59-year-old male presenting with complaint of near syncope. Patient states over the past month he has had generalized weakness and cannot walk more than 10 feet without becoming winded. Patient states he felt lightheaded today went down to his knees did not completely pass out but almost did. Patient denies any active chest pain right now. Patient denies any abdominal pain. Patient on EKG originally had right bundle branch with wandering baseline and EKG read as potential acute STEMI there was no elevation found on the EKGs. When the EKG ran without any wandering baseline there was a right bundle branch block and there was no acute STEMI read by the computer which was the correct read from the beginning. Patient had negative troponin. Patient found to have a hemoglobin of 4. Patient denies any active abdominal pain abdomen soft nontender nondistended. Patient was consented for blood products understood risk-benefit and signed consent at bedside. Patient ordered 3 units packed red blood cells. Patient hemodynamically stable at this time. Patient is not on any significant blood thinners. Patient had rectal exam performed with nurse gericare aide present. Patient's stool light brown in color no bright red blood guaiac negative. Patient admitted to hospital service further treatment and evaluation. Patient's family states that the patient drinks daily. I did order iron panel B12 and folate levels before blood was transfused. Labs (independently interpreted) are significant for: Hemoglobin 4.6 Imaging results (independently interpreted): Chest x-ray clear EKG interpretation (independently interpreted): Normal sinus rhythm right bundle branch block no ST segment elevation Medications given: 3 units packed red blood cells Consultants: Hospitalist Chronic conditions affecting care: Alcoholism Triage Nursing notes reviewed and agree them. Vital Signs: reviewed and remarkable for: Soft blood pressure Critical care time 55 minutes, this time does not include time for procedures Past Med/Surg History Problem List (Updated 10/18/24 @ 02:26 by Saji Cevallos DO) Near syncope (Acute) Anemia (Acute) Neurogenic claudication due to lumbar spinal stenosis Sleep disorder breathing RSV (respiratory syncytial virus infection) (Acute) Lab test negative for COVID-19 virus (Acute) Encounter for pre-operative examination Alcohol use disorder (Chronic) Obesity (BMI 30.0-34.9) Anemia (Acute) Tobacco use disorder Chronic obstructive pulmonary disease (Chronic) hospitalized at [facility] November 2023 for this, still having some shortness of breath with activity, at rest is okay Hypertension (Chronic) controlled, stable per pt Medical History On home oxygen therapy 2 LPM at Acute respiratory failure with hypoxia hospitalized at [facility] November 2023 for this, still having some shortness of breath with activity, at rest is okay Hepatic steatosis CAD (coronary artery disease) GERD (gastroesophageal reflux disease) controlled, stable per pt Kidney disease following with [facility] Nephrology. Sleep apnea no device Plaque psoriasis Hx of seasonal allergies Spinal stenosis History of shingles 05/2022, PRN gabapentin for chronic right eye irritation/pain from shingles Surgical History History of cardiac catheterization 02/2023 [facility]. no stents. History of back surgery lumbar > "bone spur shaving" Hx of arthroscopic knee surgery Left Hx of foot surgery Left Hx of inguinal hernia repair History of esophagogastroduodenoscopy (EGD) Family History Father Diabetes Social History Smoking Status: Current some day smoker Tobacco Type: Cigarettes Second Hand Exposure: No; Do You Dip or Chew Tobacco: Yes; Hx Alcohol Use: Yes Alcohol type: hard liquor Alcohol Intake Frequency: 4 or More x per/Week Alcohol Intake Frequency Comment: 2-12 beers 5x/week Hx Substance Use: No Preferred Language: Armenian Communication Ability: Effective Spiral Tube Winder Required: No Beliefs That Will Affect Care: None Current Living Situation: Family Current Living Situation Comment: lives with aunt Feels Safe at Home: Yes Assistive Devices: Nebulizer, Oxygen - at Night and Walker Allergies Allergies Allergy/AdvReac Type Severity Reaction Status Date / Time TONIA Inhibitors AdvReac Severe ALESSANDRO Verified 01/13/24 09:28 ARB-Angiotensin Receptor AdvReac Severe ALESSANDRO Verified 12/28/23 09:35 Antagonist prednisone AdvReac Mild "jitterines Verified 12/28/23 09:35 s" Home Meds Home Medications Medication Instructions Recorded Confirmed atorvastatin 80 mg tablet 80 mg PO QAM 03/16/23 05/29/24 baclofen 10 mg tablet 10 mg PO TID PRN Muscle Spasm 06/09/23 01/13/24 gabapentin 300 mg capsule 300 mg PO TID PRN Pain 06/09/23 01/13/24 furosemide 20 mg tablet 20 mg PO QAM 10/14/23 05/29/24 potassium chloride 20 mEq 20 meq PO QAM 10/14/23 05/29/24 tablet,extended release buspirone 5 mg tablet 5 mg PO TID PRN Anxiety 12/28/23 01/13/24 carvedilol 12.5 mg tablet 37.5 mg PO BID 12/28/23 05/29/24 fluticasone fur. 200 mcg-umeclid 1 inh inhalation QAM 12/28/23 05/29/24 62.5 mcg-vilant 25 mcg inhalat.powder (Trelegy Ellipta) Previous Rx's Medication Instructions Recorded albuterol sulfate 90 mcg/actuation 2 puff inhalation Q4H PRN 03/09/23 aerosol inhaler Shortness Of Breath Or Wheezing #8.5 grams aspirin 81 mg tablet,delayed 81 mg PO QAM #30 tabs 03/09/23 release ipratropium 0.5 mg-albuterol 3 mg 3 ml inhalation Q6H PRN 06/11/23 (2.5 mg base)/3 mL nebulization wheezing/severe shortness of soln breath #90 mL folic acid 1 mg tablet 1 mg PO QAM #30 tabs 12/07/23 guaifenesin 600 mg tablet, 600 mg PO BID #60 tabs 12/07/23 extended release 12 hr (Mucinex) sodium chloride 7 % for 4 ml inhalation BIDR 12/07/23 nebulization secretion/mucus clearance #240 mL oxycodone 5 mg tablet 5 mg PO Q6H PRN pain #30 tabs 01/14/24 hydrocodone 5 mg-acetaminophen 325 1 tab PO Q6H PRN pain #12 tabs 05/29/24 mg tablet naproxen 500 mg tablet 500 mg PO BID PRN pain #20 tabs 05/29/24 Results & Data (ED) Vital Signs Vital Signs - 24 hr 10/17/24 21:41 10/17/24 21:49 10/17/24 21:54 Temperature 36.3 C L Temperature Source Oral Pulse Rate 91 H 89 84 Pulse Rate [Left Apical] Pulse Rate from SpO2 Sensor Respiratory Rate 21 17 Respiratory Effort / Characteristics Spontaneous Short of Breath Respiratory Depth Normal Respiratory Pattern Regular Blood Pressure 113/65 Blood Pressure [Right Arm] Blood Pressure Mean 81 Blood Pressure Mean [Right Arm] Pulse Oximetry 99 97 Oxygen Delivery Method Room Air Room Air Sepsis Recent Fever Within 48 Hours No Sepsis New/Unexplained Change in Mental Status N/A Sepsis Action Taken by Nursing No Action Required 10/17/24 22:00 10/17/24 22:03 10/17/24 22:30 Temperature Temperature Source Pulse Rate 84 Pulse Rate [Left Apical] Pulse Rate from SpO2 Sensor Respiratory Rate 14 Respiratory Effort / Characteristics Respiratory Depth Respiratory Pattern Blood Pressure 112/77 104/65 Blood Pressure [Right Arm] Blood Pressure Mean 84 74 Blood Pressure Mean [Right Arm] Pulse Oximetry 95 Oxygen Delivery Method Room Air Sepsis Recent Fever Within 48 Hours Sepsis New/Unexplained Change in Mental Status Sepsis Action Taken by Nursing 10/17/24 22:36 10/17/24 22:39 10/17/24 23:00 Temperature Temperature Source Pulse Rate 88 85 Pulse Rate [Left Apical] 89 Pulse Rate from SpO2 Sensor Respiratory Rate 24 22 Respiratory Effort / Characteristics Respiratory Depth Respiratory Pattern Blood Pressure 113/64 Blood Pressure [Right Arm] Blood Pressure Mean 74 Blood Pressure Mean [Right Arm] Pulse Oximetry 94 93 Oxygen Delivery Method Room Air Room Air Sepsis Recent Fever Within 48 Hours Sepsis New/Unexplained Change in Mental Status Sepsis Action Taken by Nursing 10/18/24 00:08 10/18/24 00:15 10/18/24 00:39 Temperature Temperature Source Pulse Rate 87 94 H Pulse Rate [Left Apical] 85 Pulse Rate from SpO2 Sensor 87 93 H Respiratory Rate 20 13 14 Respiratory Effort / Characteristics Respiratory Depth Respiratory Pattern Blood Pressure 106/61 103/62 Blood Pressure [Right Arm] 81/54 L Blood Pressure Mean 76 75 Blood Pressure Mean [Right Arm] 63 Pulse Oximetry 95 97 98 Oxygen Delivery Method Room Air Room Air Sepsis Recent Fever Within 48 Hours Sepsis New/Unexplained Change in Mental Status Sepsis Action Taken by Nursing 10/18/24 01:12 10/18/24 01:36 10/18/24 01:37 Temperature 36.7 C Temperature Source Oral Pulse Rate 88 92 H 90 Pulse Rate [Left Apical] Pulse Rate from SpO2 Sensor 88 Respiratory Rate 18 14 Respiratory Effort / Characteristics Respiratory Depth Respiratory Pattern Blood Pressure 99/65 L 106/61 Blood Pressure [Right Arm] Blood Pressure Mean 76 76 Blood Pressure Mean [Right Arm] Pulse Oximetry 92 93 Oxygen Delivery Method Room Air Sepsis Recent Fever Within 48 Hours Sepsis New/Unexplained Change in Mental Status Sepsis Action Taken by Nursing 10/18/24 01:55 10/18/24 02:10 Temperature 36.8 C 36.8 C Temperature Source Oral Oral Pulse Rate 92 H 89 Pulse Rate [Left Apical] Pulse Rate from SpO2 Sensor Respiratory Rate 17 19 Respiratory Effort / Characteristics Respiratory Depth Respiratory Pattern Blood Pressure 106/62 105/62 Blood Pressure [Right Arm] Blood Pressure Mean 76 76 Blood Pressure Mean [Right Arm] Pulse Oximetry 91 94 Oxygen Delivery Method Sepsis Recent Fever Within 48 Hours Sepsis New/Unexplained Change in Mental Status Sepsis Action Taken by Nursing Laboratory Data 10/17/24 21:47 10/17/24 21:47 Lab Results 10/17/24 10/17/24 10/17/24 Range/Units 21:47 23:17 Unknown WBC 10.43 (4.8-10.8) K/ul RBC 1.62 L (4.70-6.10) M/uL Hgb 4.7 L* (14.0-18.0) g/dl Hct 15.1 L* (42.0-52.0) % MCV 93.2 (80.0-100.0) fL MCH 29.0 (25.0-34.0) pg MCHC 31.1 L (32.0-36.0) g/dL RDW Std Deviation 67.7 H (36.4-46.3) fL RDW Coeff of Rogelio 19.9 H (11.5-14.5) % Plt Count 304 (130-400) K/uL MPV 9.7 (9.4-12.4) fL Immature Gran % (Auto) 0.7 % Neut % (Auto) 82.3 % Lymph % (Auto) 9.1 % Chaves % (Auto) 7.2 % Eos % (Auto) 0.3 % Baso % (Auto) 0.4 % Reticulocyte % (Auto) 0.82 (0.50-2.00) % Neut # (Auto) 8.59 H (1.40-6.50) K/uL Lymph # (Auto) 0.95 L (1.20-3.40) K/uL Chaves # (Auto) 0.75 H (0.11-0.59) K/uL Eos # (Auto) 0.03 (0.00-0.50) K/uL Baso # (Auto) 0.04 (0.00-0.20) K/uL Reticulocyte # 0.010 L (0.020-0.100) 10^6/uL Immature Gran # (Auto) 0.07 (0.01-0.20) K/uL Absolute Nucleated RBC 0.03 (0.00-0.12) K/uL Nucleated RBC % (auto) 0.3 % Polychromasia 2+ Tear Drop Cells 1+ PT 11.3 (9.0-12.0) Seconds INR 1.0 (0.9-1.1) Sodium 134 L (136-145) mmol/L Potassium 3.4 L (3.5-5.1) mmol/L Chloride 97 L (98-107) mmol/L Carbon Dioxide 22 (21-32) mmol/L Anion Gap 15 H (3-11) BUN 15 (6-23) mg/dl Creatinine 1.08 (0.6-1.4) mg/dl Est Cr Clr Drug Dosing 93.6 ml/min eGFR 78.07 BUN/Creatinine Ratio 13.9 (10-20) Glucose 105 H (70-99(Fasting)) mg/dl Calcium 8.4 L (8.6-10.3) mg/dl Magnesium 1.4 L (1.7-2.4) mg/dl Iron 235 H (35-175) mcg/dl TIBC 272 (250-450) mcg/dl Transferrin 194 L (200-360) mg/dl Transferrin % Sat 86 H (20-50) % Ferritin 554.6 H (8-388) ng/ml Total Bilirubin 1.1 H (0.2-1.0) mg/dl AST 31 (13-39) U/L ALT 17 (7-52) U/L Alkaline Phosphatase 145 H (34-104) U/L Troponin I High Sens 9.5 (0-20) pg/ml B-Natriuretic Peptide 150 H (0-100) pg/ml Total Protein 6.8 (6.0-8.3) gm/dl Albumin 3.5 (3.4-5.0) gm/dl Globulin 3.3 (2.5-4.0) gm/dl Albumin/Globulin Ratio 1.1 (0.9-2) Lipase 102 H (11-82) U/L Vitamin B12 373 (180-914) pg/ml Folate 19.57 (>5.38) ng/ml Adenovirus (PCR) Not Detected (NotDetected) B. pertussis DNA (PCR) Not Detected (NotDetected) B.parapertussis DNA PCR Not Detected (NotDetected) C. pneumoniae DNA (PCR) Not Detected (NotDetected) Coronavirus OC43 (PCR) Not Detected (NotDetected) Coronavirus HKU1 (PCR) Not Detected (NotDetected) Coronavirus 229E (PCR) Not Detected (NotDetected) SARS-CoV-2 (PCR) Not Detected (NotDetected) Coronavirus NL63 (PCR) Not Detected (NotDetected) Human Metapneumovir PCR Not Detected (NotDetected) Influenza Type A (PCR) Not Detected (NotDetected) Influenza Type B (PCR) Not Detected (NotDetected) M. pneumoniae (PCR) Not Detected (NotDetected) Parainfluenza 1 (PCR) Not Detected (NotDetected) Parainfluenza 2 (PCR) Not Detected (NotDetected) Parainfluenza 3 (PCR) Not Detected (NotDetected) Parainfluenza 4 (PCR) Not Detected (NotDetected) RSV (PCR) Not Detected (NotDetected) Entero/Rhino (PCR) Not Detected (NotDetected) Blood Type O Positive Antibody Screen NEGATIVE Crossmatch See Detail Administered Medications Potassium Chloride/Sodium Chloride (Normal Saline W/20 Meq Kcl) 20 meq in 1,000 mls @ 100 mls/hr IV .Q10H STA Stop: 10/18/24 11:02 Last Admin: 10/18/24 01:46 Dose: 100 mls/hr Documented By: WES Magnesium Sulfate/Dextrose (Magnesium Sulfate / D5w) 1 gm in 100 mls @ 50 mls/hr IV Q2H MARANDA Stop: 10/18/24 05:29 Last Admin: 10/18/24 01:46 Dose: 50 mls/hr Documented By: WES Discontinued Medications Thiamine HCl 100 mg/ Syringe 10 mls @ 2 mls/min IV NOW STA Stop: 10/18/24 00:50 Last Admin: 10/18/24 01:46 Dose: 2 mls/min Documented By: WES Imaging Data Radiologist's Impression: Chest X-Ray 10/17/24 21:51 Exam(s): XR CXR 1 VIEW EXAM: XR Chest, 1 View CLINICAL HISTORY: Reason for exam: syncope. TECHNIQUE: Frontal views of the chest. COMPARISON: No relevant prior studies available. FINDINGS: Lungs: No consolidation. Pleural space: No pleural effusion is seen. No pneumothorax. Heart: Heart is normal in size.. Mediastinum: There is mild uncoiling of thoracic aorta.. IMPRESSION: No acute pulmonary disease. Electronically signed by: Sawyer Ryan MD 10/17/24 23:39 PM Discharge Plan Visit Data Chief Complaint: Syncope (Near Syncope) Stated Complaint: SOB X1 WEEK, DIZZY, NEAR SYNCOPAL ED Provider: Saji Cevallos Discharge Problem: Anemia, Near syncope Forms Stand Alone Forms: My [facility] Prescriptions Prescriptions: No Action atorvastatin 80 mg tablet 80 mg PO QAM aspirin 81 mg Tablet,Delayed Release (Dr/Ec) 81 mg PO QAM Qty: 30 0RF albuterol sulfate 90 mcg/actuation HFA aerosol inhaler 2 puff inhalation Q4H PRN (Reason: Shortness Of Breath Or Wheezing) Qty: 8.5 0RF gabapentin 300 mg capsule 300 mg PO TID PRN (Reason: Pain) baclofen 10 mg tablet 10 mg PO TID PRN (Reason: Muscle Spasm) ipratropium-albuterol 0.5 mg-3 mg(2.5 mg base)/3 mL solution for nebulization 3 ml inhalation Q6H PRN (Reason: wheezing/severe shortness of breath) Qty: 90 0RF Patient Comments: has not been using this 12/28/23 furosemide 20 mg tablet 20 mg PO QAM potassium chloride 20 mEq tablet extended release 20 meq PO QAM hydrocodone-acetaminophen 5-325 mg tablet 1 tab PO Q6H PRN (Reason: pain) Qty: 12 0RF naproxen 500 mg tablet 500 mg PO BID PRN (Reason: pain) Qty: 20 0RF sodium chloride 7 % solution for nebulization 4 ml inhalation BIDR Qty: 240 0RF Patient Comments: finished with this 12/28/23 folic acid 1 mg Tablet 1 mg PO QAM Qty: 30 0RF guaifenesin [Mucinex] 600 mg tablet extended release 12hr 600 mg PO BID Qty: 60 0RF Patient Comments: finished with this 12/28/23 buspirone 5 mg tablet 5 mg PO TID PRN (Reason: Anxiety) carvedilol 12.5 mg tablet 37.5 mg PO BID Trelegy Ellipta 200-62.5-25 mcg blister with device 1 inh inhalation QAM oxycodone 5 mg tablet 5 mg PO Q6H PRN (Reason: pain) Qty: 30 0RF Referrals Referrals: Omer Wayne MD [Primary Care Provider] -
[2024-10-17 22:20] LABS: Albumin Globulin Ratio 1.1 (0.9-2); Albumin Level 3.5 gm/dl (3.4-5.0); BUN Creatinine Ratio 13.9 (10-20); Bilirubin,Total 1.1 mg/dl (0.2-1.0); Calcium 8.4 mg/dl (8.6-10.3); Creatinine Clr Calc Pharmacy 93.6 ml/min; Globulin 3.3 gm/dl (2.5-4.0); Magnesium 1.4 mg/dl (1.7-2.4); Potassium 3.4 mmol/L (3.5-5.1); Total Protein 6.8 gm/dl (6.0-8.3)
[2024-10-17 22:25] LABS: Troponin I High Sensitivity 9.5 pg/ml (0-20)
[2024-10-17 22:33] LABS: Basophils # (auto) 0.04 K/uL (0.00-0.20); Basophils % (auto) 0.4 %; Eosinophils # (auto) 0.03 K/uL (0.00-0.50); Eosinophils % (auto) 0.3 %; Hematocrit (blood only) 15.1 % (42.0-52.0); Hemoglobin 4.7 g/dl (14.0-18.0); Immature Granulocytes # (auto) 0.07 K/uL (0.01-0.20); Immature Granulocytes % (auto) 0.7 %; Lymphocytes # (auto) 0.95 K/uL (1.20-3.40); Lymphocytes % (auto) 9.1 %; Mean Corpuscular Hgb Conc 31.1 g/dL (32.0-36.0); Mean Corpuscular Volume 93.2 fL (80.0-100.0); Mean Platelet Volume 9.7 fL (9.4-12.4); Monocytes # (auto) 0.75 K/uL (0.11-0.59); Monocytes % (auto) 7.2 %; Neutrophils # (auto) 8.59 K/uL (1.40-6.50); Neutrophils % (auto) 82.3 %; Nucleated RBC # (auto) 0.03 K/uL (0.00-0.12); Nucleated RBC % (auto) 0.3 %; Platelet Count 304 K/uL (130-400); Polychromasia 2+; RDW Coefficient of Variation 19.9 % (11.5-14.5); RDW Standard Deviation 67.7 fL (36.4-46.3); Red Blood Count 1.62 M/uL (4.70-6.10); Tear Drop Cells 1+; White Blood Count 10.43 K/ul (4.8-10.8)
[2024-10-17] MEDS ORDERED: SODIUM CHLORIDE 0.9% 50 ML IV PRN (23:12)
[2024-10-17] MEDS ORDERED: SODIUM CHLORIDE 0.9% 100 ML IV PRN (23:12)
[2024-10-17 23:28] LABS: Adenovirus PCR Not Detected (NotDetected); Bordetella parapertussis PCR Not Detected (NotDetected); Bordetella pertussis PCR Not Detected (NotDetected); Chlamydia pneumoniae PCR Not Detected (NotDetected); Coronavirus 229E PCR Not Detected (NotDetected); Coronavirus CoV-2 (COVID19)PCR Not Detected (NotDetected); Coronavirus HKU1 PCR Not Detected (NotDetected); Coronavirus NL63 PCR Not Detected (NotDetected); Coronavirus OC43PCR Not Detected (NotDetected); Human Metapneumovirus PCR Not Detected (NotDetected); Influenza A PCR Not Detected (NotDetected); Influenza B PCR Not Detected (NotDetected); Mycoplasma pneumoniae PCR Not Detected (NotDetected); Parainfluenza Virus 1 PCR Not Detected (NotDetected); Parainfluenza Virus 2 PCR Not Detected (NotDetected); Parainfluenza Virus 3 PCR Not Detected (NotDetected); Parainfluenza Virus 4 PCR Not Detected (NotDetected); Respiratory Syncytial VirusPCR Not Detected (NotDetected); Rhinovirus/Enterovirus PCR Not Detected (NotDetected)
--- NOTE | 2024-10-17 23:39 | XRay Report ---
Exam(s): XR CXR 1 VIEW EXAM: XR Chest, 1 View CLINICAL HISTORY: Reason for exam: syncope. TECHNIQUE: Frontal views of the chest. COMPARISON: No relevant prior studies available. FINDINGS: Lungs: No consolidation. Pleural space: No pleural effusion is seen. No pneumothorax. Heart: Heart is normal in size.. Mediastinum: There is mild uncoiling of thoracic aorta.. IMPRESSION: No acute pulmonary disease. Electronically signed by: Sawyer Ryan MD 10/17/24 23:39 PM
[2024-10-18 00:05] LABS: Folate (Folic Acid),Ser orPlas 19.57 ng/ml (>5.38)
[2024-10-18 01:32] LABS: Prothrombin Time 11.3 Seconds (9.0-12.0)
[2024-10-18 01:44] LABS: Reticulocyte % 0.82 % (0.50-2.00)
[2024-10-18] MEDS: THIAMINE HCL 100 MG in SYRINGE 9 ML IV STA (01:46)
[2024-10-18] MEDS: NSS + 20MEQ KCL 20 MEQ/1,000 ML BAG IV STA (01:46)
[2024-10-18] MEDS: MAGNESIUM SULFATE / D5W 1 GM/100 ML BAG IV SCH (01:46)
--- NOTE | 2024-10-18 01:52 | History & Physical Report ---
Date of Service October 18, 2024 Assessment & Plan (1) Hypotension: Plan: Hypotension Secondary to hypovolemia, possible GI bleed given progressive anemia, initial FOBT done at the ER was negative Relatively high Coreg dose contributory hx nonocclusive CAD, PVD (renal artery stenosis as per records), patient noncompliant with home aspirin Rx hyperlipidemia, on statin Rx COPD, usual cough/SOB symptoms as per patient SAROJ, patient awaiting device Transaminitis, underlying hepatic steatosis, possible alcoholic hepatitis Hypokalemia anxiety disorder, at baseline ongoing tobacco/alcohol abuse PCU IVF Transfuse PRBC to maintain hemoglobin of at least 8 given history CAD Decrease Coreg dose from 12.5 mg twice daily to to 3.125 mg twice daily Hold home aspirin for now until GI bleed definitely ruled out. Hemoccult all stools until positive result obtained PPI, GI consult if with positive FOBT RAFA S at risk protocol, DT precautions Replace electrolytes Nicotine replacement therapy as needed DVT prophylaxis. SCDs re: possible GI bleed Full code Text document was generated using [employer] voice recognition software. It may contain grammatical or spelling errors. Kindly contact undersigned for clarification of any documentation item in question. History of Present Illness Chief Complaint: Near syncope Primary Care Provider: Omer Wayne MD History obtained from patient and records. Medical history significant for nonocclusive CAD, PVD, hypertension, hyperlipid emia, COPD, SAROJ, hepatic steatosis as per records, chronic anemia (baseline hemoglobin of 8), anxiety disorder, ongoing tobacco/alcohol abuse. Last confinement December 2023 under orthopedic spine service for LSS radiculopathy status post decompression surgery. Patient seen at PCPs office on follow-up visit 3 weeks ago. SBP noted to be 80s at the office. Progressive hemoglobin drop to 8 over the last few months. Dark stools as per patient account few months ago. Denies chest pain, unusual SOB, abdominal pain symptoms. Anemia workup ordered by PCP which patient has to comply with. Patient Coreg decreased in dose. Patient increasingly weak over the last 2 weeks. Near syncope symptoms on standing up. Denies headache. No recent black or bloody stools. Usual cough symptoms attributed to COPD. Patient brought to ER for evaluation. SBP 80s upon arrival at the ER. FOBT done at the ER by ER provider was negative. 2 units PRBC transfused at the ER. 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 Allergies Allergy/AdvReac Type Severity Reaction Status Date / Time TONIA Inhibitors AdvReac Severe ALESSANDRO Verified 01/13/24 09:28 ARB-Angiotensin Receptor AdvReac Severe ALESSANDRO Verified 12/28/23 09:35 Antagonist prednisone AdvReac Mild "jitterines Verified 12/28/23 09:35 s" Home Medications Medication Instructions Recorded Confirmed Type aspirin 81 mg tablet,delayed 81 mg PO QAM #30 tabs 03/09/23 10/18/24 Rx release atorvastatin 80 mg tablet 80 mg PO QAM 03/16/23 10/18/24 History baclofen 10 mg tablet 10 mg PO TID PRN Muscle Spasm 06/09/23 10/18/24 History ipratropium 0.5 mg-albuterol 3 mg 3 ml inhalation Q6H PRN 06/11/23 10/18/24 Rx (2.5 mg base)/3 mL nebulization wheezing/severe shortness of soln breath #90 mL furosemide 20 mg tablet 20 mg PO QAM 10/14/23 10/18/24 History potassium chloride 20 mEq 20 meq PO QAM 10/14/23 10/18/24 History tablet,extended release folic acid 1 mg tablet 1 mg PO QAM #30 tabs 12/07/23 10/18/24 Rx carvedilol 12.5 mg tablet 12.5 mg PO BID 12/28/23 10/18/24 History fluticasone fur. 200 mcg-umeclid 1 inh inhalation QAM 12/28/23 10/18/24 History 62.5 mcg-vilant 25 mcg inhalat.powder (Trelegy Ellipta) lorazepam 1 mg tablet 1 mg PO Q6 PRN Anxiety 10/18/24 10/18/24 History sertraline 50 mg tablet 50 mg PO QAM 10/18/24 10/18/24 History tramadol 50 mg tablet 50 mg PO Q6 PRN Pain 10/18/24 10/18/24 History Past Med/Surg History Problem List (Updated 10/18/24 @ 05:01 by Lanre Berry MD) Hypotension Near syncope (Acute) Anemia (Acute) Neurogenic claudication due to lumbar spinal stenosis Sleep disorder breathing RSV (respiratory syncytial virus infection) (Acute) Lab test negative for COVID-19 virus (Acute) Encounter for pre-operative examination Alcohol use disorder (Chronic) Obesity (BMI 30.0-34.9) Anemia (Acute) Tobacco use disorder Chronic obstructive pulmonary disease (Chronic) hospitalized at [facility] November 2023 for this, still having some shortness of breath with activity, at rest is okay Hypertension (Chronic) controlled, stable per pt Medical History On home oxygen therapy 2 LPM at Acute respiratory failure with hypoxia hospitalized at [facility] November 2023 for this, still having some shortness of breath with activity, at rest is okay Hepatic steatosis CAD (coronary artery disease) GERD (gastroesophageal reflux disease) controlled, stable per pt Kidney disease following with [facility] Nephrology. Sleep apnea no device Plaque psoriasis Hx of seasonal allergies Spinal stenosis History of shingles 05/2022, PRN gabapentin for chronic right eye irritation/pain from shingles Surgical History History of cardiac catheterization 02/2023 [facility]. no stents. History of back surgery lumbar > "bone spur shaving" Hx of arthroscopic knee surgery Left Hx of foot surgery Left Hx of inguinal hernia repair History of esophagogastroduodenoscopy (EGD) Family History Father Diabetes Social History Smoking Status: Former smoker Tobacco Type: Cigarettes Cigarettes Per Day: 3 cigarettes/day; Second Hand Exposure: No; Do You Dip or Chew Tobacco: No; Tobacco Cessation Education Requested by Patient: No Hx Alcohol Use: Yes Alcohol type: hard liquor Alcohol Intake Frequency: 4 or More x per/Week Alcohol Intake Frequency Comment: 2-12 beers 5x/week Hx Substance Use: No Preferred Language: Haitian Communication Ability: Effective Criminal Profiler Required: No Beliefs That Will Affect Care: None Current Living Situation: Family Current Living Situation Comment: lives with mother Other Information That Helps Us Care for You: No Feels Safe at Home: Yes Safety Concerns: Feels Safe At This Time Assistive Devices: Glasses Review of Systems Review of Systems: As per HPI, all other systems reviewed and negative Physical Exam Physical Exam: GENERAL: Comfortable, pleasant, slightly anxious, obese, no respiratory distress SKIN: Pallor, warm HEENT: Alopecia, pale palpebral conjunctivae, no ptosis, dry buccal mucosa NECK : Supple, no tenderness CHEST : Decreased breath sounds, no tenderness HEART : RRR, no obvious murmurs ABDOMEN: Some distention, nontender EXTREMITIES : No LE swelling/tenderness, no other conspicuous deformities noted NEUROLOGIC : Coherent, no facial asymmetry, no other gross focality Results & Data Results & Data Vital Signs (Past 12 Hours) Vital Signs Temp Pulse Pulse Resp BP BP Pulse Ox 10/18/24 01:37 36.7 C 90 14 106/61 93 10/18/24 01:36 92 H 10/18/24 01:12 88 18 99/65 L 92 10/18/24 00:39 94 H 14 103/62 98 10/18/24 00:15 87 13 106/61 97 10/18/24 00:08 85 20 81/54 L 95 10/17/24 23:00 85 22 113/64 93 10/17/24 22:39 89 94 10/17/24 22:36 88 24 10/17/24 22:30 104/65 10/17/24 22:03 84 14 95 10/17/24 22:00 112/77 10/17/24 21:54 84 17 97 10/17/24 21:49 89 10/17/24 21:41 36.3 C L 91 H 21 113/65 99 O2 Del Method 10/18/24 01:37 10/18/24 01:36 10/18/24 01:12 Room Air 10/18/24 00:39 Room Air 10/18/24 00:15 Room Air 10/18/24 00:08 10/17/24 23:00 Room Air 10/17/24 22:39 Room Air 10/17/24 22:36 10/17/24 22:30 10/17/24 22:03 Room Air 10/17/24 22:00 10/17/24 21:54 Room Air 10/17/24 21:49 10/17/24 21:41 Room Air Laboratory Results Laboratory Results WBC 10.43 K/ul (4.8-10.8) 10/17/24 21:47 RBC 1.62 M/uL (4.70-6.10) L 10/17/24 21:47 Hgb 4.7 g/dl (14.0-18.0) L* 10/17/24 21:47 Hct 15.1 % (42.0-52.0) L* 10/17/24 21:47 MCV 93.2 fL (80.0-100.0) 10/17/24 21:47 MCH 29.0 pg (25.0-34.0) 10/17/24 21:47 MCHC 31.1 g/dL (32.0-36.0) L 10/17/24 21:47 RDW Std Deviation 67.7 fL (36.4-46.3) H 10/17/24 21:47 RDW Coeff of Rogelio 19.9 % (11.5-14.5) H 10/17/24 21:47 Plt Count 304 K/uL (130-400) 10/17/24 21:47 MPV 9.7 fL (9.4-12.4) 10/17/24 21:47 Immature Gran % (Auto) 0.7 % 10/17/24 21:47 Neut % (Auto) 82.3 % 10/17/24 21:47 Lymph % (Auto) 9.1 % 10/17/24 21:47 [place] % (Auto) 7.2 % 10/17/24 21:47 Eos % (Auto) 0.3 % 10/17/24 21:47 Baso % (Auto) 0.4 % 10/17/24 21:47 Reticulocyte % (Auto) 0.82 % (0.50-2.00) 10/17/24 21:47 Neut # (Auto) 8.59 K/uL (1.40-6.50) H 10/17/24 21:47 Lymph # (Auto) 0.95 K/uL (1.20-3.40) L 10/17/24 21:47 [place] # (Auto) 0.75 K/uL (0.11-0.59) H 10/17/24 21:47 Eos # (Auto) 0.03 K/uL (0.00-0.50) 10/17/24 21:47 Baso # (Auto) 0.04 K/uL (0.00-0.20) 10/17/24 21:47 Reticulocyte # 0.010 10^6/uL (0.020-0.100) L 10/17/24 21:47 Immature Gran # (Auto) 0.07 K/uL (0.01-0.20) 10/17/24 21:47 Absolute Nucleated RBC 0.03 K/uL (0.00-0.12) 10/17/24 21:47 Nucleated RBC % (auto) 0.3 % 10/17/24 21:47 Polychromasia 2+ 10/17/24 21:47 Tear Drop Cells 1+ 10/17/24 21:47 PT 11.3 Seconds (9.0-12.0) 10/17/24 21:47 INR 1.0 (0.9-1.1) 10/17/24 21:47 Sodium 134 mmol/L (136-145) L 10/17/24 21:47 Potassium 3.4 mmol/L (3.5-5.1) L 10/17/24 21:47 Chloride 97 mmol/L (98-107) L 10/17/24 21:47 Carbon Dioxide 22 mmol/L (21-32) 10/17/24 21:47 Anion Gap 15 (3-11) H 10/17/24 21:47 BUN 15 mg/dl (6-23) 10/17/24 21:47 Creatinine 1.08 mg/dl (0.6-1.4) 10/17/24 21:47 Est Cr Clr Drug Dosing 93.6 ml/min 10/17/24 21:47 eGFR 78.07 10/17/24 21:47 BUN/Creatinine Ratio 13.9 (10-20) 10/17/24 21:47 Glucose 105 mg/dl (70-99(Fasting)) H 10/17/24 21:47 Calcium 8.4 mg/dl (8.6-10.3) L 10/17/24 21:47 Magnesium 1.4 mg/dl (1.7-2.4) L 10/17/24 21:47 Iron 235 mcg/dl (35-175) H 10/17/24 21:47 TIBC 272 mcg/dl (250-450) 10/17/24 21:47 Transferrin 194 mg/dl (200-360) L 10/17/24 21:47 Transferrin % Sat 86 % (20-50) H 10/17/24 21:47 Total Bilirubin 1.1 mg/dl (0.2-1.0) H 10/17/24 21:47 AST 31 U/L (13-39) 10/17/24 21:47 ALT 17 U/L (7-52) 10/17/24 21:47 Alkaline Phosphatase 145 U/L (34-104) H 10/17/24 21:47 Troponin I High Sens 9.5 pg/ml (0-20) 10/17/24 21:47 B-Natriuretic Peptide 150 pg/ml (0-100) H 10/17/24 21:47 Total Protein 6.8 gm/dl (6.0-8.3) 10/17/24 21:47 Albumin 3.5 gm/dl (3.4-5.0) 10/17/24 21:47 Globulin 3.3 gm/dl (2.5-4.0) 10/17/24 21:47 Albumin/Globulin Ratio 1.1 (0.9-2) 10/17/24 21:47 Lipase 102 U/L (11-82) H 10/17/24 21:47 Vitamin B12 373 pg/ml (180-914) 10/17/24 21:47 Folate 19.57 ng/ml (>5.38) 10/17/24 21:47 Adenovirus (PCR) Not Detected (NotDetected) 10/17/24 Unknown B. pertussis DNA (PCR) Not Detected (NotDetected) 10/17/24 Unknown B.parapertussis DNA PCR Not Detected (NotDetected) 10/17/24 Unknown C. pneumoniae DNA (PCR) Not Detected (NotDetected) 10/17/24 Unknown Coronavirus OC43 (PCR) Not Detected (NotDetected) 10/17/24 Unknown Coronavirus HKU1 (PCR) Not Detected (NotDetected) 10/17/24 Unknown Coronavirus 229E (PCR) Not Detected (NotDetected) 10/17/24 Unknown SARS-CoV-2 (PCR) Not Detected (NotDetected) 10/17/24 Unknown Coronavirus NL63 (PCR) Not Detected (NotDetected) 10/17/24 Unknown Human Metapneumovir PCR Not Detected (NotDetected) 10/17/24 Unknown Influenza Type A (PCR) Not Detected (NotDetected) 10/17/24 Unknown Influenza Type B (PCR) Not Detected (NotDetected) 10/17/24 Unknown M. pneumoniae (PCR) Not Detected (NotDetected) 10/17/24 Unknown Parainfluenza 1 (PCR) Not Detected (NotDetected) 10/17/24 Unknown Parainfluenza 2 (PCR) Not Detected (NotDetected) 10/17/24 Unknown Parainfluenza 3 (PCR) Not Detected (NotDetected) 10/17/24 Unknown Parainfluenza 4 (PCR) Not Detected (NotDetected) 10/17/24 Unknown RSV (PCR) Not Detected (NotDetected) 10/17/24 Unknown Entero/Rhino (PCR) Not Detected (NotDetected) 10/17/24 Unknown Blood Type O Positive 10/17/24 23:17 Antibody Screen NEGATIVE 10/17/24 23:17 Crossmatch See Detail 10/17/24 23:17 Impressions Chest X-Ray 10/17/24 21:51 Exam(s): XR CXR 1 VIEW EXAM: XR Chest, 1 View CLINICAL HISTORY: Reason for exam: syncope. TECHNIQUE: Frontal views of the chest. COMPARISON: No relevant prior studies available. FINDINGS: Lungs: No consolidation. Pleural space: No pleural effusion is seen. No pneumothorax. Heart: Heart is normal in size.. Mediastinum: There is mild uncoiling of thoracic aorta.. IMPRESSION: No acute pulmonary disease. Electronically signed by: Sawyer Ryan MD 10/17/24 23:39 PM Diagnostic Findings EKG as per my interpretation :Rate 85, NSR, normal axis, RBBB, ST depression anterolateral leads
[2024-10-18] MEDS ORDERED: LORazepam 2 MG/1 ML VIAL IV PRN (02:07)
[2024-10-18] MEDS ORDERED: oxyCODONE HCL IR 5 MG TAB (IMMEDIATE RELEASE) PO PRN (02:07)
[2024-10-18] MEDS ORDERED: PROMETHAZINE 6.25 MG/50.25 ML BAG IV PRN (02:09)
[2024-10-18 02:16] LABS: Ferritin 554.6 ng/ml (8-388)
[2024-10-18] MEDS ORDERED: SODIUM CHLORIDE 0.9% 100 ML IV PRN ×2 (02:40→16:25)
[2024-10-18] MEDS ORDERED: SODIUM CHLORIDE 0.9% 50 ML IV PRN ×2 (02:40→16:25)
[2024-10-18] MEDS ORDERED: ALBUT/IPRATROP 3MG/0.5MG NEB 3 ML VIAL NEB PRN (04:38)
[2024-10-18] MEDS: ALBUT/IPRATROP 3MG/0.5MG NEB 3 ML VIAL NEB STA (04:49)
--- OUTSIDE RECORDS SUMMARY | 2024-10-18 06:34 | External Medical Summary | Summary of Care ---
Author Name Unknown Organization [facility] Address [address] [place] [address] Phone [phone] Care Team Providers Care Pool Manager Name Role Phone Omer Wayne MD Primary Care Provider [phone] Reason for Visit * Reason Comments Acute Patient is here for a medication review. He states after he takes his meds he has blurred vision and dizzy spells but later in the day it goes away. He is having SOB as well. Encounter Details Date Type Department Care Team (Late st Contact Info) Description 09/28/2024 9:40 AM EST Office [facility] [place] [address] [facility] [place] [address] Munir Dickens MD [address] [facility] [address] [place] [id number] Anemia, unspecified type*; Essential hypertension with goal blood pressure less than 140/90; COPD, group D, by GOLD 2017 classification ([facility]); Hypertensive heart disease with chronic diastolic congestive heart failure (HCC); Coronary artery disease involving guidiville coronary artery of guidiville heart without angina pectoris; Hypokalemia; Shortness of breath; Dizziness Allergies Active Allergy Reactions Criticality Noted Date Comments Onel Inhibitors 10/22/2023 To be avoided due to bilateral renal artery stenosis and worsening kidney function when on previously Prednisone 04/07/2023 documented as of this encounter (statuses as of 09/28/2024) Medications EQ Aspirin Adult Low Dose 81 MG Oral Tablet Delayed ReleaseIndication s:Coronary artery disease involving guidiville coronary artery of guidiville heart without angina pectoris Take 1 Tablet by mouth daily. In the morning. 90 Tablet 3 023 Active Additional Information Patient not taking.Reported on 09/28/2024 Baclofen 10 MG Oral Tablet (Lioresal) Take 1 Tablet by mouth in the morning and 1 Tablet at noon and 1 Tablet before bedtime. 90 Tablet 1 023 Active Additional Information Patient not taking.Reported on 09/28/2024 traMADol HCl 50 MG Oral Tablet (Ultram)Indicatio ns:DDD (degenerative disc disease), lumbar,Spinal stenosis of lumbar region with neurogenic claudication Take 1 Tablet by mouth 2 times a day as needed for Pain, Severe. 30 Tablet 024 Active Furosemide 20 MG Oral Tablet (Lasix)Indication s:Hypertensive left ventricular hypertrophy, without heart failure Take 1 Tablet by mouth in the morning. 90 Tablet 3 024 Active Additional Information Patient not taking.Reported on 09/28/2024 Folic Acid 1 MG Oral TabletIndications :Alcohol ingestion, 1-4 drinks per day Take 1 Tablet by mouth in the morning. 90 Tablet 3 024 Active Sertraline HCl 50 MG Oral Tablet (Zoloft) Take 1 Tablet by mouth in the morning. 90 Tablet 3 024 Active Ventolin HFA 108 (90 Base) MCG/ACT Inhalation Aerosol Solution Inhale 2 Puffs by mouth every 4 hours as needed for Dyspnea or Wheezing. 18 g 3 024 2024 Active Azithromycin 250 MG Oral Tablet (Zithromax Z-Oswaldo) Please take 500 mg by mouth on day one, followed by 250 mg by mouth for four days. 6 Tablet 024 Active Additional Information Patient not taking.Reported on 09/28/2024 Atorvastatin Calcium 80 MG Oral Tablet (Lipitor)Indicati ons:Coronary artery disease involving guidiville coronary artery of guidiville heart without angina pectoris,Dyslipid emia, goal LDL below 70 Take 1 Tablet by mouth in the morning. 90 Tablet 3 024 Active Albuterol Sulfate 0.63 MG/3ML Inhalation Nebulization Solution (Accuneb) Inhale 1 Vial via nebulizer every 6 hours as needed for Wheezing or Shortness of Breath. 360 mL Active Potassium Chloride Alba ER 20 MEQ Oral Tablet Extended Release Take 1 Tablet by mouth in the morning and 1 Tablet before bedtime. 180 Tablet 1 Active LORazepam 1 MG Oral Tablet (Ativan) Take 1 Tablet by mouth every 6 hours as needed. Active Trelegy Ellipta 200-62.5-25 MCG/ACT Aerosol Powder Breath Activated (Fluticasone-Umec lidinium-Vilanter ol)Indications:CO PD, group D, by GOLD 2017 classification ([facility]) Inhale 1 Puff by mouth in the morning. 180 Blister Dosing Unit 3 025 Active Carvedilol 12.5 MG Oral Tablet (Coreg)Indication s:Hypertensive heart disease with chronic diastolic congestive heart failure (HCC) Take 1 Tablet by mouth in the morning and 1 Tablet before bedtime. 3 tabs by mouth twice per day. 540 Tablet 3 025 Active Carvedilol 12.5 MG Oral Tablet (Coreg)Indication s:Hypertensive heart disease with chronic diastolic congestive heart failure (HCC) 3 tabs by mouth twice per day 540 Tablet 3 024 2024 Discontinued Trelegy Ellipta 200-62.5-25 MCG/ACT Aerosol Powder Breath Activated (Fluticasone-Umec lidinium-Vilanter ol)Indications:CO PD, group D, by GOLD 2017 classification ([facility]) Inhale 1 Puff by mouth in the morning. 180 Blister Dosing Unit 3 024 2024 Discontinued(R efill) documented as of this encounter (statuses as of 09/28/2024) Active Problems Problem Noted Date Diagnosed Date COPD, group D, by GOLD 2017 classification 11/29 Overview: Per COPD GOLD Classification Pulmonary emphysema 10/26/2023 Renal artery stenosis 10/22/2023 Hypertensive heart disease w ith chronic diastolic congestive heart failure 10/21/2023 Coronary artery disease invo lving guidiville heart without angina pectoris 06/08/2023 Hepatic steatosis 04/27/2023 Anemia 04/07/2023 Elevated transaminase level 04/07/2023 Osteoarthritis of hand, left 04/07/2023 Tobacco dependence 04/07/2023 Grade I diastolic dysfunction 04/07/2023 Hypertensive left ventricula r hypertrophy, without heart failure 04/07/2023 History of acute renal failure 04/07/2023 Lymphedema 04/07/2023 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 Overview (01/01/2021): Sebopsoriasis and scalp psoriasis too Essential hypertension with goal blood pressure less than 140/90 07/24/2011 Dyslipidemia, goal LDL below 70 documented as of this encounter (statuses as of 09/28/2024) Resolved Problems Problem Noted Date Diagnosed Date Resolved Date Pulmonary emphysema 10/26/2023 12/28/19 Acute renal failure 04/07/2023 10/22/19 ALESSANDRO (acute kidney injury) 04/07/2023 Elevated troponin [...] of muscle 05/27/2011 10/20/2011 Headache 05/27/2011 02/26/2015 Overview (12/12/2015): ICD-10 update of inactive term Elevated blood pressure, situational 09/28/2009 10/20/2011 Esophageal reflux 09/28/2009 02/26/2015 Anxiety state 09/04/2008 02/26/2015 ACUTE STRESS 09/04/2008 10/20/2011 Diarrhea 09/04/2008 10/20/2011 VIRAL GASTROENTERITIS 09/04/20082011 Abdominal pain, generalized 09/04/2008 10/20/2011 Alcohol dependence 12/29/2000 5 Overview (01/01/2016): ICD-10 update of inactive term Tobacco use disorder 015 Rhinitis, chronic 01/20/2018 documented as of this encounter (statuses as of 09/28/2024) Social History Tobacco Use Types Packs/Day Years [...] money to get more. Patient declined 08/2024 Childcare Answer Date Recorded Do you feel overwhelmed with taking care of a child, family member or friend? No 01/01/2024 Does your family need help f inding childcare? (Household - for ages 0-17 years) Not on file 01/01/2024 Clothing Answer Date Recorded Have you been unable to get clothing when it was really needed? No 01/01/2024 Is your family able to get c lothes or diapers when needed? (Household - for ages 0-17 years) Not on file 01/01/2024 Personal Safety Answer Date Recorded Do you feel unsafe or have concerns for your saf ety? No 01/01/2024 Do you have concerns for you r family's safety? (Household - for ages 0-17 years) Not on file 01/01/2024 Utilities Answer Date Recorded Do you have trouble paying y our heating, water, or electric bill? No 01/01/2024 Is your family able to pay t he heat, water, or electric bill? (Household - for ages 0-17 years) Not on file 01/01/2024 Does your family have access to good internet? (Household - for ages 0-17 years) Not on file 01/01/2024 Employment Status Answer Date Recorded Are you unemployed or without regular income? No 01/01/2024 Does the household have a re gular source of income? (Household - for ages 0-17 years) Not on file 01/01/2024 Social Connections Answer Date Recorded How often do you feel lonely or isolated from th ose around you? Never 01/01/2024 Financial Resource Strain Answer Date R ecorded Do you have any trouble payi ng for your medications, or do you think you might in the future? No 01/01/2024 Does your family have troubl e paying for medicine? (Household - for ages 0-17 years) Not on file 01/01/2024 Transportation Needs Answer Date Record ed READ ONLY Do you have troubl e getting a ride to medical visits or work? Never True 01/01/2024 Does your family have a hard time getting a ride to doctors visits? (Household - for ages 0-17 years) Not on file 01/01/2024 Has lack of transportation k ept you from medical appointments, meetings, work, or from getting things needed for daily living? Check all that apply. (Adult - for ages 18 years and over) Not on file 01/01/2024 Do you (or your family) have trouble finding or paying for a ride (transportation)? (Household - for ages 0-17 years) Not on file 01/01/2024 Housing Stability Answer Date Recorded Do you currently live in a s helter or have no steady place to sleep at night? No 01/01/2024 READ ONLY Do you think you a re at risk of becoming homeless? No 01/01/2024 Does your family worry about paying for your home or becoming homeless? (Household - for ages 0-17 years) Not on file 0 01/01/2024 Are you homeless or worried that you might be in the future? (Adult - for ages 18 years and over) Not on file Are you (or your family) sonam eless or worried that you might be in the future? (Household - for ages 0-17 years) Not on file Food Insecurity Answer Date Recorded Do you need food for this week? No 01/01/2024 Are you able to get enough f ood for your family? (Household - for ages 0-17 years) Not on file 01/01/2024 Does your family need food t his week? (Household - for ages 0-17 years) Not on file 01/01/2024 Do you always have enough fo od for your family? (Household - for ages 0-17 years) Not on file 01/01/2024 Sex and Gender Information Value Date Recorded Sex Assigned at Male 01/01/2024 2:57 PM EDT Legal Sex Male 5:57 AM EST Gender Identity Male 01/01/2024 2:57 PM EDT Sexual Orientation Straight 01/01/2024 2: 57 PM EDT documented as of this encounter Last Filed Vital Signs Vital Sign Reading Time Taken Comments Blood Pressure 86/52 09/28/2024 9:47 AM EST Pulse 93 09/28/2024 9:47 AM EST Temperature 36.1 C (96.9 F) 09/28/2024 9:47 AM ES T Respiratory Rate 20 09/28/2024 9:47 AM EST Oxygen Saturation 97% 09/28/2024 9:47 AM EST Inhaled Oxygen Concentration - - Weight 107.1 kg (236 lb 3.2 oz) 09/28/2024 9:47 AM EST Height - - Body Mass Index 32.03 08/15/2024 8:12 PM EST documented in this encounter Progress Notes * Munir Dickens MD - 09/28/2024 10:04 AM EST Images from the original note were not included. Assessment and Plan Patient currently overmedicated for essential hypertension resulting in symptomatic hypotension. Decrease Coreg to 12.5 mg twice daily. Concern for concomitant acute blood loss anemia with hemoglobindrop from 11.7 in April of 2024 to 8.6 in August of 2024. Given dark stools we will check a fecal occult blood test. If he had a globin drops further patient may require ED evaluation for transfusion as goal hemoglobin is 8 given history of CAD. Check lab work as below for further evaluation. Patient needed refills on Trelegy which replaced today. Monitor hypokalemia as he was hypokalemic on lab work in August 2024. 1. Anemia, unspecified type (Primary) - CBC WITH WBC DIFFERENTIAL; Future - IRON SCREEN, INCLUDING TIBC; Future - FECAL OCCULT BLOOD, EIA; Future - VITAMIN B12 - CBC WITH WBC DIFFERENTIAL - IRON SCREEN, INCLUDING TIBC - FECAL OCCULT BLOOD, EIA 2. Essential hypertension with goal blood pressure less than 140/90 3. COPD, group D, by GOLD 2017 classification ([facility]) - Trelegy Ellipta 200-62.5-25 MCG/ACT Aerosol Powder Breath Activated (Ejmwpxaognk-Vpksojbbsvue-Essqsmrlrn); Inhale 1 Puff by mouth in the morning. Dispense: 180 Blister Dosing Unit; Refill: 3 4. Hypertensive heart disease with chronic diastolic congestive heart failure ([facility]) - Carvedilol 12.5 MG Oral Tablet (Coreg); Take 1 Tablet by mouth in the morning and 1 Tablet beforebedtime. 3 tabs by mouth twice per day. Dispense: 540 Tablet; Refill: 3 5. Coronary artery disease involving guidiville coronary artery of guidiville heart without angina pectoris 6. Hypokalemia 7. Shortness of breath - COMPREHENSIVE METABOLIC PANEL; Future - D-DIMER; Future - COMPREHENSIVE METABOLIC PANEL - D-DIMER 8. Dizziness - COMPREHENSIVE METABOLIC PANEL; Future - D-DIMER; Future - COMPREHENSIVE METABOLIC PANEL - D-DIMER Wrap-Up Follow up based on lab work. History of Present Illness The patient is a 59-year-old male with past medical history of COPD, pulmonary emphysema, dyslipidemia, diastolic congestive heart failure, hypertension, CAD, tobacco use who presents for acute. Patient presents due to shortness of breath and lightheadedness/dizziness especially upon standing over the last couple of weeks. Symptoms are mostly noted in the morning after taking his Coreg medication. His current dose is 37.5 mg in the morning. He has been holding his evening dose and has had minimal symptoms as the day progresses. Blood pressure in office today after taking medications this morning is 86/52. He does endorse some lightheadedness upon standing. Of note patient had lab workcompleted on 09/09/2024. This showed a hemoglobin drop from 10.3 on 09/01/2024-8.6 on 09/09/2024. Patient did note some dark stools over the last few weeks. Denies any other overt signs of bleeding. Physical Exam Vitals: 09/28/24 0947 Temp: 96.9 F (36.1 C) Pulse: 93 Resp: 20 SpO2: 97% BP: 86/52 Physical Exam Physical Exam Vitals reviewed. Constitutional: General: He is not in acute distress. Comments: Positional dizziness when standing. Cardiovascular: Rate and Rhythm: Normal rate and regular rhythm. Heart sounds: No murmur heard. Pulmonary: Effort: Pulmonary effort is normal. No respiratory distress. Breath sounds: Normal breath sounds. Musculoskeletal: Cervical back: Neck supple. Right lower leg: No edema. Left lower leg: No edema. Lymphadenopathy: Cervical: No cervical adenopathy. Neurological: General: No focal deficit present. Mental Status: He is alert. This note has been completed in part utilizing The [employer] Voice Recognition Software. Due to technical limitations of the software, grammatical errors, random word insertions, prounoun errors, and incomplete sentences may occur. Any formal questions or concerns about the content, text, or information contained within the body of this dictation should be directly addressed to the provider for clarification. documented in this encounter Nursing Notes * Kassy Olivares LPN - 09/28/2024 9:47 AM EST The patient has been properly identified by confirmation of name and date of . Chief Complaint Patient presents with Acute Patient is here for a medication review. He states after he takes his meds he has blurred vision and dizzy spells but later in the day it goes away. He is having SOB as well. documented in this encounter Plan of Treatment Upcoming Encounters Date Type Department Care Team (Latest Contact Info) Description 11/17/2024 2:40 PM EST [facility] [address] [phone] Omer Wayne MD [address] [id number] 11/23/2024 10:30 AM EST Office Visit [facility] [address] [facility] [place] [phone] Jeanette Michael CRNP [address] [place] [address] 01/11/2025 8:40 AM EDT Office Visit Pulmonary Medicine, [facility] [address] [place] [address] Ronny Virk MD [address] [place] [address] 01/31/2025 1:00 PM EDT Hospital Encounter [facility], Endoscopy Room [facility] [address] [place] [phone] Rishabh Grady, DO [address] [place] [address] 01/31/2025 1:00 PM EDT - 01/31/2025 1:30 PM EDT Surgery ENDO [facility], Endoscopy Room [facility] [address] [place] [phone] Rishabh Grady, DO [address] [place] [address] COLONOSCOPY FLEXIBLE PROXIMAL DIAGNOSTIC Pending Results Name Type Priority Associated Diagnoses Date /Time IRON SCREEN, INCLUDING TIBC Lab Routine Anemia, unspecified type 09/28/2024 10:36 AM EST VITAMIN B12 Lab Routine Anemia, unspecified type 09/28/2024 10:36 AM EST Scheduled Orders Name Type Priority Associated Diagnoses Orde r Schedule IRON SCREEN, INCLUDING TIBC Lab Routine Anemia, unspecified type Expected: 09/28/2024 (Approximate), Expires: 09/28/2025 FECAL OCCULT BLOOD, EIA Lab Routine Anemia, unspecified type Expected: 09/28/2024 (Approximate), Expires: 09/28/2025 Scheduled Procedures Name Priority Associated Diagnoses Date/Ti me COLONOSCOPY FLEXIBLE PROXIMAL DIAGNOSTIC Screen for colon cancer 01/31/2025 1:00 PM EDT Health Maintenance Due Date Last Done Comments Alpha-1 Antitrypsin 1981 Pneumococcal Vaccine: 50+ Years (1 of 2 - PCV) 1982 Cologuard 2008 Colonoscopy 2008 Colorectal Cancer Screening 2008 Fecal Occult Blood Test 2008 Sigmoidoscopy 2008 COVID-19 Vaccine ( season) 2024 Influenza Vaccine (FLU shot) (#1) 2024 Depression Screening 12/31/2024 01/01/2024 GFR 09/28/2025 09/28/2024, 08/22, 09/01/2024, Additional history exists O2 ASSESSMENT COMPLETED IN PAST YEAR FOR COPD 09/28/2025 09/28/2024 Albumin/Creatinine Ratio 10/28/2026 10/28/2023, 02/20 Diabetes Screening 09/28/2027 09/28/2024, 1 11/10/2023, 09/01/2024, Additional history exists DTap/Tdap Vaccines (2 - Td or Tdap) 01/21/2028 01/20/2018 (Declined) HIV Screening Discontinued HPV (Gardasil) Vaccine Aged Out No lo nger eligible based on patient's age to complete this topic Hepatitis B Vaccine Aged Out No longe r eligible based on patient's age to complete this topic Hepatitis C Screening Discontinued MENINGOCOCCAL (MENACTRA/MENVEO) Aged Out No longer eligible based on patient's age to complete this topic Zoster Vaccines Discontinued documented as of this encounter Medical Devices Implanted Type Area Green Building Engineer Device Identifier Shelf Expiration Date Model / Serial / Lot Mesh Plug Prefix [id number] [id number] - [id number] Implanted:Qty: 1 on 03/12/2018 by Donovan Raza MD at OR [facility] Right: Groin CR BARD : DAVOL 10/21/2018 [id number] / / [id number] documented as of this encounter Procedures Procedure Name Priority Date/Time Associated Diagnosis Comments DIFFERENTIAL, AUTOMATED Routine 09/28/2024 10:36 AM EST Anemia, unspecified type COMPREHENSIVE METABOLIC PANEL Routine 09/28/2024 10:36 AM EST Shortness of breath Dizziness D-DIMER Routine 09/28/2024 10:36 AM EST Shortness of breath Dizziness CBC Routine 09/28/2024 10:36 AM EST Anemia, unspecified type CBC Routine 09/28/2024 10:36 AM EST Anemia, unspecified type documented in this encounter Results * (ABNORMAL) DIFFERENTIAL, AUTOMATED (09/28/2024 10:36 AM EST) Pathologist [facility] WBC 7.15 4.00 - 10.80 K/uL 09/28/2024 2:42 PM EST [facility] Neutrophils % 80.8(H) 40.0 - 75.0 % 09/28/2024 2:42 PM EST [facility] Lymphocytes % 10.9(L) 18.0 - 42.0 % 09/28/2024 2:42 PM EST [facility] Monocytes % 6.6 1.0 - 11.0 % 09/28/2024 2:42 PM EST [facility] Eosinophils % 0.6 0.0 - 6.0 % 09/28/2024 2:42 PM EST [facility] Basophils % 0.7 0.0 - 2.0 % 09/28/2024 2:42 PM EST [facility] Immature Granulocytes % 0.4 0.0 - 2.0 % 09/28/2024 2:42 PM EST [facility] Absolute Neutrophils 5.78 1.80 - 7.70 K/uL 09/28/2024 2:42 PM EST [facility] Absolute Lymphocytes 0.78(L) 1.00 - 4.80 K/ul 09/28/2024 2:42 PM EST [facility] Absolute Monocytes 0.47 0.00 - 1.10 K/uL 09/28/2024 2:42 PM EST [facility] Absolute Eosinophils 0.04 0.00 - 0.70 K/uL 09/28/2024 2:42 PM EST [facility] Absolute Basophils 0.05 0.00 - 0.20 K/uL 09/28/2024 2:42 PM EST [facility] Absolute Immature Granulocytes 0.03 0.00 - 0.20 K/uL 09/28/2024 2:42 PM EST [facility] Blood Venous blood specimen / Unknown Venipuncture / Unknown 09/28/2024 10:36 AM EST 09/28/2024 10:36 AM EST us Munir Dickens MD LAB BLOOD ORDERABLES Final Res ult [facility] [address] [place] [address] * (ABNORMAL) CBC (09/28/2024 10:36 AM EST) Pathologist [facility] WBC 7.15 4.00 - 10.80 K/uL 09/28/2024 2:42 PM EST [facility] RBC 2.56 4.50 - 5.25 M/uL 09/28/2024 2:42 PM EST [facility] HGB 8.6(L) 14.0 - 16.8 g/dL 09/28/2024 2:42 PM EST [facility] HCT 26.2(L) 40.0 - 48.4 % 09/28/2024 2:42 PM EST [facility] MCV 102.3 82.0 - 99.5 fL 09/28/2024 2:42 PM EST [facility] MCH 33.6 27.0 - 34.0 pg 09/28/2024 2:42 PM EST [facility] MCHC 32.8 32.0 - 36.0 g/dL 09/28/2024 2:42 PM EST [facility] RDW 16.9 11.5 - 15.5 % 09/28/2024 2:42 PM EST [facility] PLT 306 140 - 400 K/uL 09/28/2024 2:42 PM EST [facility] MPV 10.2 6.6 - 11.1 fL 09/28/2024 2:42 PM EST [facility] nRBCs 0 <=0 /100 WBCs 09/28/2024 2:42 PM EST [facility] Blood Venous blood specimen / Unknown Venipuncture / Unknown 09/28/2024 10:36 AM EST 09/28/2024 10:36 AM EST Munir Dickens MD LAB BLOOD ORDERABLES Final Res ult [facility] [address] [place] [address] * (ABNORMAL) D-DIMER (09/28/2024 10:36 AM EST) [facility] D-Dimer 0.79(H) <0.50 ug/mL FEU 09/28/2024 2:35 PM EST [facility]ORY [facility] [place] Venous blood specimen / Unknown Venipuncture / Unknown 09/28/2024 10:36 AM EST 09/28/2024 10:36 AM EST Narrative [facility] [place] 09/28/2024 2:35 PM EST Rheumatoid factor at a level above 50 IU/mL may lead to an overestimation of the D-dimer level. A normal D-dimer result (<0.50 ug/mL FEU) has a negative predictive value of approximately 95% for the exclusion of acute pulmonary embolism (PE) or deep vein thrombosis when there is low or moderate pretest PE probability. Increased D-dimer values are abnormal but do not indicate a specific disease state and the D-dimer increase does not definitively correlate with clinical severity of disease. us Munir Dickens MD LAB BLOOD ORDERABLES Final Res ult [facility] [address] [place] [address] * (ABNORMAL) COMPREHENSIVE METABOLIC PANEL (09/28/2024 10:36 AM EST) [facility] BUN 9 6 - 20 mg/dL 09/28/2024 3:37 PM EST [facility]OR[facility]ORY [facility] [place] CREATININE 0.9 0.6 - 1.2 mg/dL 09/28/2024 3:37 PM EST LABORATORY GM EGFR >90 >=60 mL/min 09/28/2024 3:37 PM EST [facility] [place] Comment:eGFR is calculated b ased on the CKD-EPI 2020 equation. SODIUM 138 135 - 146 mmol/L 09/28/2024 3:37 PM EST LABORATORY GM POTASSIUM 4.2 3.5 - 5.1 mmol/L 09/28/2024 3:37 PM EST LABORATORY GM CHLORIDE 102 98 - 107 mmol/L 09/28/2024 3:37 PM EST [facility] CO2 20(L) 22 - 32 mmol/L 09/28/2024 3:37 PM EST [facility] ANION GAP 16(H) 7 - 15 mmol/L 09/28/2024 3:37 PM EST [facility] GLUCOSE 119 70 - 120 mg/dL 09/28/2024 3:37 PM EST [facility] Albumin 3.4(L) 3.8 - 5.0 g/dL 09/28/2024 3:37 PM EST [facility] AST 56(H) 10 - 50 U/L 09/28/2024 3:37 PM EST [facility] Alkaline Phosphatase 159(H) 35 - 130 U/L 09/28/2024 3:37 PM EST [facility] Bilirubin, Total 1.0 <=1.2 mg/dL 09/28/2024 3:37 PM EST [facility] CALCIUM 8.6 8.4 - 10.2 mg/dL 09/28/2024 3:37 PM EST [facility] Protein 6.3 6.0 - 8.3 g/dL 09/28/2024 3:37 PM EST [facility] ALT 26 10 - 50 U/L 09/28/2024 3:37 PM EST [facility] Blood Venous blood specimen / Unknown Venipuncture / Unknown 09/28/2024 10:36 AM EST 09/28/2024 10:36 AM EST us Munir Dicknes MD LAB BLOOD ORDERABLES Final Res ult [facility] [address] [place] [address] documented in this encounter Visit Diagnoses Diagnosis Anemia, unspecified type- Primary Essential hypertension with goal blood pressure less than 140/90 COPD, group D, by GOLD 2017 classification (HCC) Hypertensive heart disease with chronic diastolic congestive heart failure (HCC) Coronary artery disease involving [place] coronary artery of [place] heart without angina pectoris Hypokalemia Hypopotassemia Shortness of breath Dizziness Dizziness and giddiness Screen for colon cancer Special screening for malignant neoplasms, colon documented in this encounter Care Teams Pool Manager Relationship Specialty Start Date End Date Omer Wayne MD PCP - General 02/19/05 documented as of this encounter
--- OUTSIDE RECORDS SUMMARY | 2024-10-18 06:34 | External Medical Summary | Summary of Care ---
Author Name Unknown Organization [facility] Address [address] [place] [address] Phone [phone] Care Team Providers Care Kitman Name Role Phone Omer Wayne MD Primary Care Provider +1- [phone] Reason for Visit * Reason Comments Acute Patient is here for a medication review. He states after he takes his meds he has blurred vision and dizzy spells but later in the day it goes away. He is having SOB as well. Encounter Details Date Type Department Care Team (Late st Contact Info) Description 09/28/2024 9:40 AM EST Office Visit [facility] [address] [facility] [place] [address] Rossy Mariee MD [address] [facility] [place] [phone] Anemia, unspecified type*; Essential hypertension with goal blood pressure less than 140/90; COPD, group D, by GOLD 2017 classification ([facility]); Hypertensive heart disease with chronic diastolic congestive heart failure (HCC); Coronary artery disease involving [place] coronary artery of [place] heart without angina pectoris; Hypokalemia; Shortness of breath; Dizziness Allergies Active Allergy Reactions Criticality Noted Date Comments Onel Inhibitors 10/22/2023 To be avoided due to bilateral renal artery stenosis and worsening kidney function when on previously Prednisone 04/07/2023 documented as of this encounter (statuses as of 09/28/2024) Medications EQ Aspirin Adult Low Dose 81 MG Oral Tablet Delayed ReleaseIndication s:Coronary artery disease involving [place] coronary artery of [place] heart without angina pectoris Take 1 Tablet [...] Oral Tablet (Lipitor)Indicati ons:Coronary artery disease involving [place] coronary artery of [place] heart without angina pectoris,Dyslipid emia, goal LDL [...] 2017 classification ([facility]) Inhale 1 Puff by mouth in the [...] 2017 classification ([facility]) Inhale 1 Puff by mouth in the [...] failure 10/21/2023 Coronary artery disease invo lving [place] heart without angina pectoris 06/08/2023 Hepatic steatosis [...] documented in this encounter Progress Notes * Rossy Mariee MD - 09/28/2024 10:04 AM EST Images [...] 2017 classification ([facility]) - Trelegy Ellipta 200-62.5-25 MCG/ACT Aerosol Powder Breath Activated (Oqtadvdwuuh-Gxwiftlnecpk-Ypgmgxqqva); Inhale 1 Puff by mouth in the morning. Dispense: 180 Blister Dosing Unit; Refill: 3 4. Hypertensive heart disease with chronic diastolic congestive heart failure ([facility]) - Carvedilol 12.5 MG Oral Tablet (Coreg); Take 1 Tablet by mouth in the morning and 1 Tablet beforebedtime. 3 tabs by mouth twice per day. Dispense: 540 Tablet; Refill: 3 5. Coronary artery disease involving [place] coronary artery of [place] heart without angina pectoris 6. Hypokalemia 7. [...] note has been completed in part utilizing [email or web address] Speech Voice Recognition Software. Due to technical [...] SOB as well. documented in this encounter Miscellaneous Notes * Addendum Note - Rossy Mariee MD - 09/28/2024 4:17 PM ESTAddended by: ROSSY MARIEE on: 09/28/2024 04:17 PM Modules accepted: Orders documented in this encounter Plan of Treatment Upcoming Encounters Date Type Department Care Team (Latest Contact Info) Description 11/17/2024 2:40 PM EST Office Visit [facility] [address] [phone] Omer Wayne MD [address] [place] [address] 11/23/2024 10:30 AM EST [facility] [address] [place] [phone] Jeanette Michael CRNP [address] [place] [address] 01/11/2025 8:40 AM EDT Office Visit Pulmonary Medicine, [facility] [address] [place] [address] Ronny Virk MD [address] [place] [address] 01/31/2025 1:00 PM EDT Hospital Encounter ENDO [facility], Endoscopy Room [facility] [address] [place] [phone] Rishabh Grady, DO [address] [place] [address] 01/31/2025 1:00 PM EDT - 01/31/2025 1:30 PM EDT Surgery ENDO [facility], Endoscopy Room [facility] [address] [place] [phone] Rishabh Grady, DO [address] [place] [address] COLONOSCOPY FLEXIBLE PROXIMAL DIAGNOSTIC Pending Results Name [...] unspecified type Expected: 09/28/2024 (Approximate), Expires: 09/28/2025 EKG EKG Routine Shortness of breath Dizziness Expected: 09/28/2024 (Approximate), Expires: 10/29/2025 Scheduled Procedures Name Priority Associated Diagnoses Date/Ti [...] this encounter Medical Devices Implanted Type Area Rose Grader Device Identifier Shelf Expiration Date Model / Serial / Lot Mesh Plug Prefix [id number] [id number] - [id number] Implanted:Qty: 1 on 03/12/2018 by Donovan Raza MD at OR [facility] Right: Groin CR BARD : DAVOL 10/21/2018 [id number] / / [id number] documented as of this encounter Procedures Procedure [...] (ABNORMAL) DIFFERENTIAL, AUTOMATED (09/28/2024 10:36 AM EST) WBC 7.15 4.00 - 10.80 K/uL 09/28/2024 [...] AM EST 09/28/2024 10:36 AM EST us Rossy Mariee MD LAB BLOOD ORDERABLES Final Res ult LAB[facility]ORY [facility] [address] [place] [address] * (ABNORMAL) CBC (09/28/2024 10:36 AM EST) WBC 7.15 4.00 - 10.80 K/uL 09/28/2024 [...] /100 WBCs 09/28/2024 2:42 PM EST [facility] Blood Venous blood specimen / Unknown Venipuncture / Unknown 09/28/2024 10:36 AM EST 09/28/2024 10:36 AM EST Rossy Mariee MD LAB BLOOD ORDERABLES Final Res ult Performing Organization Address City/[facility]/ZIP Co de Phone Number [facility] [address] [place] [address] * (ABNORMAL) D-DIMER (09/28/2024 10:36 AM EST) D-Dimer 0.79(H) <0.50 ug/mL FEU 09/28/2024 2:35 PM EST [facility] Blood Venous blood specimen / Unknown Venipuncture / Unknown 09/28/2024 10:36 AM EST 09/28/2024 10:36 AM EST Narrative [facility] - 09/28/2024 2:35 PM EST Rheumatoid factor [...] definitively correlate with clinical severity of disease. Rossy Mariee MD LAB BLOOD ORDERABLES Final Res ult Performing Organization Address City/[facility]/ZIP Co de Phone Number [facility] [address] [place] [address] * (ABNORMAL) COMPREHENSIVE METABOLIC PANEL (09/28/2024 10:36 AM EST) BUN 9 6 - 20 mg/dL 09/28/2024 3:37 PM EST [facility] CREATININE 0.9 0.6 - 1.2 mg/dL 09/28/2024 3:37 PM EST [facility] EGFR >90 >=60 mL/min 09/28/2024 3:37 PM EST [facility] Comment:eGFR is calculated b ased on the CKD-EPI 2020 equation. SODIUM 138 135 - 146 mmol/L 09/28/2024 3:37 PM EST [facility] POTASSIUM 4.2 3.5 - 5.1 mmol/L 09/28/2024 3:37 PM EST [facility] CHLORIDE 102 98 - 107 mmol/L 09/28/2024 [...] AM EST 09/28/2024 10:36 AM EST us Rossy Mariee MD LAB BLOOD ORDERABLES Final Res ult [facility] [address] [place] [address] documented in this encounter Visit Diagnoses Diagnosis Anemia, unspecified type- Primary Essential hypertension with goal blood pressure less than 140/90 COPD, group D, by GOLD 2017 classification (HCC) Hypertensive heart disease with chronic diastolic congestive heart failure (HCC) Coronary artery disease involving [place] coronary artery of [place] heart without angina pectoris Hypokalemia Hypopotassemia Shortness of breath Dizziness Dizziness and giddiness Screen for colon cancer Special screening for malignant neoplasms, colon documented in this encounter Care Teams Kitman Relationship Specialty Start Date End Date Omer Wayne MD PCP - General 02/19/05 documented as of this encounter
--- OUTSIDE RECORDS SUMMARY | 2024-10-18 06:34 | External Medical Summary | Summary of Care ---
Author Name Unknown Organization [facility] Address [address] [place] [address] Phone [phone] Care Team Providers Care Manager Of Software Development Name Role Phone Omer Wayne MD Primary Care Provider +1- [phone] Reason for Visit * Reason Onset Date Comments FYI 10/03/2024 Encounter Details Date Type Department Care Team (Late st Contact Info) Description 10/03/2024 Telephone [facility] [place] [address] [phone] JanuaryMunir MD [address] [id number] FYI Allergies Active Allergy Reactions Criticality Noted Date Comments Onel Inhibitors 10/22/2023 To be avoided due to bilateral renal artery stenosis and worsening kidney function when on previously Prednisone 04/07/2023 documented as of this encounter (statuses as of 10/04/2024) Medications EQ Aspirin Adult Low Dose 81 MG Oral Tablet Delayed ReleaseIndications :Coronary artery disease involving [place] coronary artery of [place] heart without angina pectoris Take 1 Tablet by mouth daily. In the morning. 90 Tablet 3 03/11/20 23 Active Additional Information Patient not taking.Reported on 09/28/2024 Baclofen 10 MG Oral Tablet (Lioresal) Take 1 Tablet by mouth in the morning and 1 Tablet at noon and 1 Tablet before bedtime. 90 Tablet 1 06/08/20 23 Active Additional Information Patient not taking.Reported on 09/28/2024 traMADol HCl 50 MG Oral Tablet (Ultram)Indication s:DDD (degenerative disc disease), lumbar,Spinal stenosis of lumbar region with neurogenic claudication Take 1 Tablet by mouth 2 times a day as needed for Pain, Severe. 30 Tablet 01/01/20 24 Active Furosemide 20 MG Oral Tablet (Lasix)Indications :Hypertensive left ventricular hypertrophy, without heart failure Take 1 Tablet by mouth in the morning. 90 Tablet 3 01/21/20 24 Active Additional Information Patient not taking.Reported on 09/28/2024 Folic Acid 1 MG Oral TabletIndications: Alcohol ingestion, 1-4 drinks per day Take 1 Tablet by mouth in the morning. 90 Tablet 3 01/21/20 24 Active Sertraline HCl 50 MG Oral Tablet (Zoloft) Take 1 Tablet by mouth in the morning. 90 Tablet 3 06/14/20 24 Active Azithromycin 250 MG Oral Tablet (Zithromax Z-Oswaldo) Please take 500 mg by mouth on day one, followed by 250 mg by mouth for four days. 6 Tablet 07/05/20 24 Active Additional Information Patient not taking.Reported on 09/28/2024 Atorvastatin Calcium 80 MG Oral Tablet (Lipitor)Indicatio ns:Coronary artery disease involving [place] coronary artery of [place] heart without angina pectoris,Dyslipide aracely, goal LDL below 70 Take 1 Tablet by mouth in the morning. 90 Tablet 3 07/11/20 24 Active Albuterol Sulfate 0.63 MG/3ML Inhalation Nebulization Solution (Accuneb) Inhale 1 Vial via nebulizer every 6 hours as needed for Wheezing or Shortness of Breath. 360 mL 09/01/20 24 Active Potassium Chloride Alba ER 20 MEQ Oral Tablet Extended Release Take 1 Tablet by mouth in the morning and 1 Tablet before bedtime. 180 Tablet 1 09/07/20 24 Active LORazepam 1 MG Oral Tablet (Ativan) Take 1 Tablet by mouth every 6 hours as needed. 08/30/20 24 Active Trelegy Ellipta 200-62.5-25 MCG/ACT Aerosol Powder Breath Activated (Fluticasone-Umecl idinium-Vilanterol )Indications:COPD, group D, by GOLD 2017 classification ([facility]) Inhale 1 Puff by mouth in the morning. 180 Blister Dosing Unit 3 09/28/19 25 Active Carvedilol 12.5 MG Oral Tablet (Coreg)Indications :Hypertensive heart disease with chronic diastolic congestive heart failure (HCC) Take 1 Tablet by mouth in the morning and 1 Tablet before bedtime. 180 Tablet 3 09/29/19 25 Active documented as of this encounter (statuses as of 10/04/2024) Active Problems Problem Noted Date Diagnosed Date COPD, group D, by GOLD 2017 classification 11/29 Overview: Per COPD GOLD Classification Pulmonary emphysema 10/26/2023 Renal artery stenosis 10/22/2023 Hypertensive heart disease w ith chronic diastolic congestive heart failure 10/21/2023 Coronary artery disease invo lving [place] heart without angina pectoris 06/08/2023 Hepatic steatosis [...] as of this encounter (statuses as of 10/04/2024) Resolved Problems Problem Noted Date Diagnosed Date [...] as of this encounter (statuses as of 10/04/2024) Social History Tobacco Use Types Packs/Day Years [...] No 01/01/2024 Does the household have a [facility] source of income? (Household - for ages [...] PM EDT documented as of this encounter Miscellaneous Notes * Telephone Encounter - Dannielle Krishna CPhT - 10/03/2024 1:28 PM EST Pt calling to request Carvedilol 12.5 MG Oral Tablet . Informed pt that RX is available at their pharmacy. Pt verbalized understanding and stated they will check with their pharmacy regarding this medication. Thank you, Dannielle Krishna CPhT Analytical Research Chemist II [facility] 10/03/2024,1:28 PM documented in this encounter Plan of Treatment Upcoming Encounters Date Type Department Care Team (Latest Contact Info) Description 11/17/2024 2:40 PM EST Office [facility] [place] [facility] [place] [address] [place] [phone] Omer Wayne MD [address] [place] [address] 11/23/2024 10:30 AM EST Office Visit [facility] [address] [place] [phone] Jeanette Michael CRNP [address] [place] [address] 01/11/2025 8:40 AM EDT Office Visit Pulmonary Medicine, [facility] [address] [place] [address] Ronny Virk MD [address] [place] [address] 01/31/2025 1:00 PM EDT Hospital Encounter ENDO [facility], Endoscopy Room [facility] [address] [place] [phone] Rishabh Grady, [address] [place] [address] 01/31/2025 1:00 PM EDT - 01/31/2025 1:30 PM EDT Surgery [facility], Endoscopy Room [facility] [address] [place] [phone] Rishabh Grady, DO [address] [place] [address] COLONOSCOPY FLEXIBLE PROXIMAL DIAGNOSTIC Scheduled Procedures Name Priority Associated Diagnoses Date/Ti [...] this encounter Medical Devices Implanted Type Area Manager Hydraulic Device Identifier Shelf Expiration Date Model / Serial / Lot Mesh Plug Prefix Lg [id number] - [id number] Implanted:Qty: 1 on 03/12/2018 by Donovan Raza MD at OR [facility] Right: Groin CR BARD : DAVOL 10/21/2018 [id number] / / [id number] documented as of this encounter Care Teams Manager Of Software Development Relationship Specialty Start Date End Date Omer Wayne MD PCP - General 02/19/05 documented as of this encounter
--- OUTSIDE RECORDS SUMMARY | 2024-10-18 06:34 | External Medical Summary ---
Author Name Unknown Address Unknown Organization K01:LABORATORY [facility] - [address] [place] [address] Laboratory Report Ordering Provider Test Date Status 09/28/2024 10:36:46 Final Observation Date Value Abnormality Reference (Units ) Status WBC, Total 09/28/2024 10:36:46 7.15 4.00-10.80 (K/uL) Final RBC 09/28/2024 10:36:46 2.56 4.50-5.25 (M/uL) Final Hemoglobin 09/28/2024 10:36:46 8.6 Below low normal 14.0-16.8 (g/dL) Final HCT 09/28/2024 10:36:46 26.2 Below low normal 40.0-48.4 (%) Final MCV 09/28/2024 10:36:46 102.3 82.0-99.5 (fL) Final MCH 09/28/2024 10:36:46 33.6 27.0-34.0 (pg) Final MCHC 09/28/2024 10:36:46 32.8 32.0-36.0 (g/dL) Final RDW 09/28/2024 10:36:46 16.9 11.5-15.5 (%) Final Platelets 09/28/2024 10:36:46 306 140-400 (K/uL) Final MPV 09/28/2024 10:36:46 10.2 6.6-11.1 (fL) Final Nucleated erythrocytes/100 leukocytes [Ratio] in Blood by Automated count 09/28/2024 10:36:46 0 <=0 (/100 WBCs) Final Performing Location LABORATORY [facility] - [address] [place] [address]
--- OUTSIDE RECORDS SUMMARY | 2024-10-18 06:34 | External Medical Summary | Summary of Care ---
Author Name Unknown Organization [facility] Address [address] [place] [address] Phone [phone] Care Team Providers Care Planer Offbearer Name Role Phone Omer Wayne MD Primary Care Provider +1- [phone] Reason for Visit * Reason Onset Date Comments Medication Question 09/28/2024 Encounter Details Date Type Department Care Team (Late st Contact Info) Description [facility]/28[facility]2024 [facility] [address] [phone] Omer Wayne MD [address] [facility] [place] [address] Medication Question Allergies Active Allergy Reactions Criticality Noted Date Comments Onel Inhibitors 10/22/2023 To be avoided due to bilateral renal artery stenosis and worsening kidney function when on previously Prednisone 04/07/2023 documented as of this encounter (statuses as of 09/29/2024) Medications EQ Aspirin Adult Low Dose 81 MG Oral Tablet Delayed ReleaseIndications :Coronary artery disease involving [place] coronary artery of [place] heart without angina pectoris Take 1 Tablet [...] morning. 90 Tablet 3 06/14/20 24 Active Ventolin HFA 108 (90 Base) MCG/ACT Inhalation Aerosol Solution Inhale 2 Puffs by mouth every 4 hours as needed for Dyspnea or Wheezing. 18 g 3 07/05/20 24 025 Active Azithromycin 250 MG Oral Tablet (Zithromax Z-Oswaldo) Please take 500 mg by mouth on day one, followed by 250 mg by mouth for four days. 6 Tablet 07/05/20 24 Active Additional Information Patient not taking.Reported on 09/28/2024 Atorvastatin Calcium 80 MG Oral Tablet (Lipitor)Indicatio ns:Coronary artery disease involving [place] coronary artery of [place] heart without angina pectoris,Dyslipide aracely, goal LDL [...] )Indications:COPD, group D, by GOLD 2017 classification ([facility]) Inhale 1 Puff by mouth in the morning. 180 Blister Dosing Unit 3 09/28/19 25 Active Carvedilol 12.5 MG Oral Tablet (Coreg)Indications :Hypertensive heart disease with chronic diastolic congestive heart failure (HCC) Take 1 Tablet by mouth in the morning and 1 Tablet before bedtime. 180 Tablet 3 09/29/19 25 Active Carvedilol 12.5 MG Oral Tablet (Coreg)Indications :Hypertensive heart disease with chronic diastolic congestive heart failure (HCC) Take 1 Tablet by mouth in the morning and 1 Tablet before bedtime. 3 tabs by mouth twice per day. 540 Tablet 3 09/28/19 25 025 Discontin ued(Refil l) documented as of this encounter (statuses as of 09/29/2024) Active Problems Problem Noted Date Diagnosed Date COPD, group D, by GOLD 2017 classification 11/29 Overview: Per COPD GOLD Classification Pulmonary emphysema 10/26/2023 Renal artery stenosis 10/22/2023 Hypertensive heart disease w ith chronic diastolic congestive heart failure 10/21/2023 Coronary artery disease invo lving [place] heart without angina pectoris 06/08/2023 Hepatic steatosis [...] as of this encounter (statuses as of 09/29/2024) Resolved Problems Problem Noted Date Diagnosed Date [...] as of this encounter (statuses as of 09/29/2024) Social History Tobacco Use Types Packs/Day Years [...] No 01/01/2024 Does the household have a [facility] source of income? (Household - for ages [...] encounter Miscellaneous Notes * Telephone Encounter - Munir Dickens MD - 09/29/2024 7:34 PM EST Rx corrected and resent. 1 tab BID. Munir Dickens MD * Telephone Encounter - Kash Loomis LPN - 09/28/2024 10:26 AM EST Trev calling in from [facility] needs Clarified: Carvedilol 12.5 MG Oral Tablet (Coreg) 540 Tablet 3 09/28/2024 -- Sig - Route: Take 1 Tablet by mouth in the morning and 1 Tablet before bedtime. 3 tabs by mouth twice per day. - Oral Sent to pharmacy as: Carvedilol 12.5 MG Oral Tablet (Coreg) Trev needs to know is it 1 tab BID or 3 tabs BID? Contact Trev at pharmacy to Clarify documented in this encounter Plan of Treatment Upcoming Encounters Date Type Department Care Team (Latest Contact Info) Description 11/17/2024 2:40 PM EST Office Visit [facility] [address] [place] [phone] Omer Wayne MD [address] [facility] [place] [address] 11/23/2024 10:30 AM EST Office Visit [facility] [address] [facility] [place] [phone] Jeanette Michael CRNP 132 [facility] [place] [address] 01/11/2025 8:40 AM EDT Office Visit Pulmonary Medicine, [facility] [address] [place] [address] Ronny Virk MD [address] [place] [address] 01/31/2025 1:00 PM EDT [facility] [address] [place] [phone] Rishabh Grady, DO [address] [place] [address] 01/31/2025 1:00 PM EDT - 01/31/2025 1:30 PM EDT Surgery ENDO [facility], Endoscopy Room [facility] [address] [place] [phone] Rishabh Grady, DO [address] [place] [address] COLONOSCOPY FLEXIBLE PROXIMAL DIAGNOSTIC Scheduled Procedures Name [...] encounter Medical Devices Implanted Type Area Manager Employee Relations Device Identifier Shelf Expiration Date Model / Serial / Lot Mesh Plug Prefix Lg [id number] - [id number] Implanted:Qty: 1 on 03/12/2018 by Donovan Raza MD at OR [facility] Right: Groin CR BARD : DAVOL 10/21/2018 [id number] / / [id number] documented as of this encounter Visit Diagnoses Diagnosis Hypertensive heart disease with chronic diastolic congestive heart failure (HCC) Screen for colon cancer Special screening for malignant neoplasms, colon documented in this encounter Care Teams Planer Offbearer Relationship Specialty Start Date End Date Omer Wayne MD PCP - General 02/19/05 documented as of this encounter
--- OUTSIDE RECORDS SUMMARY | 2024-10-18 06:34 | External Medical Summary | Summary of Care ---
Author Name Unknown Organization [facility] Address [address] [place] [address] Phone [phone] Care Team Providers Care Breakdown Mill Operator Name Role Phone Omer Wayne MD Primary Care Provider +1- [phone] Reason for Visit * Reason Onset Date Comments Review Sleep Study 08/19/2024 No sleep achi eved during titration Encounter Details Date Type Department Care Team (Late st Contact Info) Description 08/19/2024 Telephone Sleep Disorders Ctr [facility] [address] [place] [phone] Jeanette Michael CRNP [address] [place] [address] Review Sleep Study (No sleep achieved duri... Allergies Active Allergy Reactions Criticality Noted Date Comments Onel Inhibitors 10/22/2023 To be avoided due to bilateral renal artery stenosis and worsening kidney function when on previously Prednisone 04/07/2023 documented as of this encounter (statuses as of 09/30/2024) Medications EQ Aspirin Adult Low Dose 81 MG Oral Tablet Delayed ReleaseIndication s:Coronary artery disease involving coquille coronary artery of coquille heart without angina pectoris Take 1 Tablet [...] Oral Tablet (Lipitor)Indicati ons:Coronary artery disease involving coquille coronary artery of coquille heart without angina pectoris,Dyslipid emia, goal LDL below 70 Take 1 Tablet by mouth in the morning. 90 Tablet 3 024 Active Cyanocobalamin 1000 MCG Oral Capsule Take by mouth. 2023 Discontinued(P atient preference/dis continuation) Thiamine HCl 100 MG Oral Tablet Take 1 Tablet by mouth in the morning. 2023 Discontinued(P atient preference/dis continuation) busPIRone HCl 5 MG Oral Tablet (Buspar) Take 1 Tablet by mouth in the morning and 1 Tablet at noon and 1 Tablet before bedtime. 024 2023 Discontinued(P atient preference/dis continuation) oxyCODONE HCl 5 MG Oral Tablet (Oxy IR) Take 1 Tablet by mouth every 6 hours as needed. 2023 Discontinued(P atient preference/dis continuation) methylPREDNISolon e 4 MG Oral Tablet Therapy Pack (Medrol Dosepack) TAKE BY MOUTH DIRECTED ON INSIDE OF PACKAGE 2023 Discontinued(P atient preference/dis continuation) Vitamin D (Ergocalciferol) 66097 UNIT Oral Capsule Take by mouth. 2023 Discontinued(P atient preference/dis continuation) Carvedilol 12.5 MG Oral Tablet (Coreg)Indication s:Hypertensive heart disease with chronic diastolic congestive heart failure (HCC) 3 tabs by mouth twice per day 540 Tablet 3 024 2024 Discontinued Potassium Chloride Alba ER 20 MEQ Oral Tablet Extended ReleaseIndication s:Hypertensive left ventricular hypertrophy, without heart failure Take 1 Tablet by mouth in the morning. 90 Tablet 3 024 2023 Discontinued(M edication/Dose Changed) Trelegy Ellipta 200-62.5-25 MCG/ACT Aerosol Powder Breath Activated (Fluticasone-Umec lidinium-Vilanter ol)Indications:CO PD, group D, by GOLD 2017 classification ([facility]) Inhale 1 Puff by mouth in the morning. 180 Blister Dosing Unit 3 024 2024 Discontinued(R efill) Albuterol Sulfate 0.63 MG/3ML Inhalation Nebulization Solution (Accuneb) Inhale 1 Vial via nebulizer every 6 hours as needed for Wheezing or Shortness of Breath. 360 mL 024 2023 Discontinued(R efill) documented as of this encounter (statuses as of 09/30/2024) Active Problems Problem Noted Date Diagnosed Date COPD, group D, by GOLD 2017 classification 11/29 Overview: Per COPD GOLD Classification Pulmonary emphysema 10/26/2023 Renal artery stenosis 10/22/2023 Hypertensive heart disease w ith chronic diastolic congestive heart failure 10/21/2023 Coronary artery disease invo lving coquille heart without angina pectoris 06/08/2023 Hepatic steatosis [...] as of this encounter (statuses as of 09/30/2024) Resolved Problems Problem Noted Date Diagnosed Date [...] as of this encounter (statuses as of 09/30/2024) Social History Tobacco Use Types Packs/Day Years [...] encounter Miscellaneous Notes * Telephone Encounter - Jeanette Michael CRNP - 08/19/2024 9:05 AM EST I called and spoke with Gordon Tony. Agreeable to auto CPAP through [facility]. Please arrange for return visit in 3 months, first CPAP check. documented in this encounter Plan of Treatment Upcoming Encounters Date Type Department Care Team (Latest Contact Info) Description 11/17/2024 2:40 PM EST Office Visit [facility] [place] [address] [facility] [place] [phone] Omer Wayne MD 226 [facility] [place] [address] 11/23/2024 10:30 AM EST Office Visit Sleep Disorders Ctr [facility] [address] [phone] Jeanette Michael CRNP [address] [place] [address] 01/11/2025 8:40 AM EDT Office Visit Pulmonary Medicine, [facility] [address] [place] [address] Ronny Virk MD [address] [place] [address] 01/31/2025 1:00 PM EDT Hospital Encounter ENDO [facility], Endoscopy Room [facility] [address] [place] [phone] Rishabh Grady, DO [address] [place] [address] 01/31/2025 1:00 PM EDT - 01/31/2025 1:30 PM EDT Surgery ENDO [facility], Endoscopy Room [facility] [address] [place] [phone] Rishabh Grady, DO [address] [place] [address] COLONOSCOPY FLEXIBLE PROXIMAL DIAGNOSTIC Scheduled Procedures Name [...] this encounter Medical Devices Implanted Type Area Bending Machine Set Up Operator Device Identifier Shelf Expiration Date Model / Serial / Lot Mesh Plug Prefix Lg [id number] - [id number] Implanted:Qty: 1 on 03/12/2018 by Donovan Raza MD at OR [facility] Right: Ingrid ALVARADO BARD : DAVOL 10/21/2018 [id number] / / [id number] documented as of this encounter Visit Diagnoses Diagnosis Obstructive sleep apnea- Primary Obstructive sleep apnea (adult) (pediatric) Nocturnal hypoxemia Hypoxemia Screen for colon cancer Special screening for malignant neoplasms, colon documented in this encounter Care Teams Breakdown Mill Operator Relationship Specialty Start Date End Date Omer Wayne MD PCP - General 02/19/05 documented as of this encounter
--- OUTSIDE RECORDS SUMMARY | 2024-10-18 06:34 | External Medical Summary | Summary of Care ---
Author Name Unknown Organization [facility] Address [address] [place] [address] Phone [phone] Care Team Providers Care Furniture Maker Name Role Phone Omer Wayne MD Primary Care Provider +1- [phone] Reason for Visit * Reason Comments Acute Patient is here for a medication review. He states after he takes his meds he has blurred vision and dizzy spells but later in the day it goes away. He is having SOB as well. Encounter Details Date Type Department Care Team (Late st Contact Info) Description 09/28/2024 9:40 AM EST [facility] [place] [facility] [place] [address] Munir Dickens MD [address] [facility] [address] [place] [phone] Anemia, unspecified type*; Essential hypertension with goal blood pressure less than 140/90; COPD, group D, by GOLD 2017 classification ([facility]); Hypertensive heart disease with chronic diastolic congestive heart failure (HCC); Coronary artery disease involving torres martinez coronary artery of torres martinez heart without angina pectoris; Hypokalemia; Shortness of breath; Dizziness Allergies Active Allergy Reactions Criticality Noted Date Comments Onel Inhibitors 10/22/2023 To be avoided due to bilateral renal artery stenosis and worsening kidney function when on previously Prednisone 04/07/2023 documented as of this encounter (statuses as of 09/28/2024) Medications EQ Aspirin Adult Low Dose 81 MG Oral Tablet Delayed ReleaseIndication s:Coronary artery disease involving torres martinez coronary artery of torres martinez heart without angina pectoris Take 1 Tablet [...] Oral Tablet (Lipitor)Indicati ons:Coronary artery disease involving torres martinez coronary artery of torres martinez heart without angina pectoris,Dyslipid emia, goal LDL [...] PD, group D, by GOLD 2017 classification ([facility]) Inhale 1 Puff by mouth in the [...] PD, group D, by GOLD 2017 classification ([facility]) Inhale 1 Puff by mouth in the [...] failure 10/21/2023 Coronary artery disease invo lving torres martinez heart without angina pectoris 06/08/2023 Hepatic steatosis [...] COPD, group D, by GOLD 2017 classification ([facility]) - Trelegy Ellipta 200-62.5-25 MCG/ACT Aerosol Powder Breath Activated (Mympewrgphn-Ztugemuaszjo-Zxytzzsgqp); Inhale 1 Puff by mouth in the morning. Dispense: 180 Blister Dosing Unit; Refill: 3 4. Hypertensive heart disease with chronic diastolic congestive heart failure ([facility]) - Carvedilol 12.5 MG Oral Tablet (Coreg); Take 1 Tablet by mouth in the morning and 1 Tablet beforebedtime. 3 tabs by mouth twice per day. Dispense: 540 Tablet; Refill: 3 5. Coronary artery disease involving torres martinez coronary artery of torres martinez heart without angina pectoris 6. Hypokalemia 7. [...] pressure in office today after taking medications thismorning is 86/52. He does endorse some lightheadedness upon standing. Of note patient had lab work completed on 09/09/2024. This showed a hemoglobin drop [...] note has been completed in part utilizing [employer] Speech Voice Recognition Software. Due to technical [...] Description 11/17/2024 2:40 PM EST [facility] [address] [place] [phone] Omer Wayne MD [address] [place] [address] 11/23/2024 10:30 AM EST Office Visit Sleep Disorders Ctr [facility] [address] [facility] [place] [phone] Jeanette Michael CRNP [address] [place] [address] 01/11/2025 8:40 AM EDT Office Visit Pulmonary Medicine, [facility] [address] [place] [address] Ronny Virk MD [address] [place] [address] 01/31/2025 1:00 PM EDT Hospital Encounter ENDO [facility], Endoscopy Room [facility] [address] [place] [phone] Rishabh Grady, DO [address] [place] [address] 01/31/2025 1:00 PM EDT - 01/31/2025 1:30 PM EDT Surgery ENDO [facility], Endoscopy Room [facility] [address] [place] [phone] Rishabh Grady, DO [address] [place] [address] COLONOSCOPY FLEXIBLE PROXIMAL DIAGNOSTIC Pending Results Name Type Priority Associated Diagnoses Date /Time CBC WITH WBC DIFFERENTIAL Lab Routine Anemia, unspecified type 09/28/2024 10:36 AM EST COMPREHENSIVE METABOLIC PANEL Lab Routine Shortness of breath Dizziness 09/28/2024 10:36 AM EST D-DIMER Lab Routine Shortness of breath Dizziness 09/28/2024 10:36 AM EST IRON SCREEN, INCLUDING TIBC Lab Routine Anemia, unspecified type 09/28/2024 10:36 AM EST VITAMIN B12 Lab Routine Anemia, unspecified type 09/28/2024 10:36 AM EST CBC Lab Routine Anemia, unspecified type 09/28/2024 10:36 AM EST DIFFERENTIAL, AUTOMATED Lab Routine Anemia, unspecified type 09/28/2024 10:36 AM EST Scheduled Orders Name Type Priority Associated Diagnoses Orde r Schedule CBC WITH WBC DIFFERENTIAL Lab Routine Anemia, unspecified type Expected: 09/28/2024 (Approximate), Expires: 09/28/2025 COMPREHENSIVE METABOLIC PANEL Lab Routine Shortness of breath Dizziness Expected: 09/28/2024 (Approximate), Expires: 09/28/2025 D-DIMER Lab Routine Shortness of breath Dizziness Expected: 09/28/2024 (Approximate), Expires: 09/28/2025 IRON SCREEN, INCLUDING TIBC Lab Routine Anemia, [...] (#1) 2024 Depression Screening 12/31/2024 01/01/2024 GFR 09/09/2025 09/09/2024, 08/21, 09/01/2024, Additional history exists O2 ASSESSMENT COMPLETED IN PAST YEAR FOR COPD 09/28/2025 09/28/2024 Albumin/Creatinine Ratio 10/28/2026 10/28/2023, 06/02/2023 Diabetes Screening 09/09/2027 09/09/2024, 1 11/02/2023, 04/28/2024, Additional history exists DTap/Tdap Vaccines (2 - [...] this encounter Medical Devices Implanted Type Area Timber Robber Device Identifier Shelf Expiration Date Model / Serial / Lot Mesh Plug Prefix Lg [id number] - [id number] Implanted:Qty: 1 on 03/12/2018 by Donovan Raza MD at OR [facility] Right: Groin CR BARD : DAVOL 10/21/2018 [id number] / / [id number] documented as of this encounter Visit Diagnoses Diagnosis Anemia, unspecified type- Primary Essential hypertension with goal blood pressure less than 140/90 COPD, group D, by GOLD 2017 classification (HCC) Hypertensive heart disease with chronic diastolic congestive heart failure (HCC) Coronary artery disease involving torres martinez coronary artery of torres martinez heart without angina pectoris Hypokalemia Hypopotassemia Shortness of breath Dizziness Dizziness and giddiness Screen for colon cancer Special screening for malignant neoplasms, colon documented in this encounter Care Teams Furniture Maker Relationship Specialty Start Date End Date Omer Wanye MD PCP - General 02/19/05 documented as of this encounter
--- OUTSIDE RECORDS SUMMARY | 2024-10-18 06:35 | External Medical Summary | Summary of Care ---
Author Name Unknown Organization [facility] Address [address] [place] [address] Phone [phone] Care Team Providers Care Interactive Project Manager Name Role Phone Omer Wayne MD Primary Care Provider +1- [phone] Encounter Details Date Type Department Care Team (Late st Contact Info) Description 09/12/2024 Telephone [facility] [place] [address] [phone] Omer Wayne MD 226 [facility] [place] [phone] Allergies Active Allergy Reactions Criticality Noted Date Comments Onel Inhibitors 10/22/2023 To be avoided due to bilateral renal artery stenosis and worsening kidney function when on previously Prednisone 04/07/2023 documented as of this encounter (statuses as of 09/26/2024) Medications EQ Aspirin Adult Low Dose 81 MG Oral Tablet Delayed ReleaseIndications :Coronary artery disease involving mashpee coronary artery of mashpee heart without angina pectoris Take 1 Tablet by mouth daily. In the morning. 90 Tablet 3 03/11/20 Active Additional Information Patient not taking.Reported on 09/09/2024 Baclofen 10 MG Oral Tablet (Lioresal) Take 1 Tablet by mouth in the morning and 1 Tablet at noon and 1 Tablet before bedtime. 90 Tablet 1 06/08/20 Active Additional Information Patient not taking.Reported on 09/09/2024 traMADol HCl 50 MG Oral Tablet (Ultram)Indication s:DDD (degenerative disc disease), lumbar,Spinal stenosis of lumbar region with neurogenic claudication Take 1 Tablet by mouth 2 times a day as needed for Pain, Severe. 30 Tablet 01/01/20 24 Active Carvedilol 12.5 MG Oral Tablet (Coreg)Indications :Hypertensive heart disease with chronic diastolic congestive heart failure (HCC) 3 tabs by mouth twice per day 540 Tablet 3 01/21/20 24 Active Furosemide 20 MG Oral Tablet (Lasix)Indications :Hypertensive left ventricular hypertrophy, without heart failure Take 1 Tablet by mouth in the morning. 90 Tablet 3 01/21/20 24 Active Folic Acid 1 MG Oral TabletIndications: Alcohol ingestion, 1-4 drinks per day Take 1 Tablet by mouth in the morning. 90 Tablet 3 01/21/20 24 Active Sertraline HCl 50 MG Oral Tablet (Zoloft) Take 1 Tablet by mouth in the morning. 90 Tablet 3 06/14/20 24 Active Trelegy Ellipta 200-62.5-25 MCG/ACT Aerosol Powder Breath Activated (Fluticasone-Umecl idinium-Vilanterol )Indications:COPD, group D, by GOLD 2017 classification ([facility]) Inhale 1 Puff by mouth in the morning. 180 Blister Dosing Unit 3 07/05/20 24 Active Ventolin HFA 108 (90 Base) [...] Active Additional Information Patient not taking.Reported on 09/09/2024 Atorvastatin Calcium 80 MG Oral Tablet (Lipitor)Indicatio ns:Coronary artery disease involving mashpee coronary artery of mashpee heart without angina pectoris,Dyslipide aracely, goal LDL [...] bedtime. 180 Tablet 1 09/07/20 24 Active documented as of this encounter (statuses as of 09/26/2024) Active Problems Problem Noted Date Diagnosed Date COPD, group D, by GOLD 2017 classification 11/29 Overview: Per COPD GOLD Classification Pulmonary emphysema 10/26/2023 Renal artery stenosis 10/22/2023 Hypertensive heart disease w ith chronic diastolic congestive heart failure 10/21/2023 Coronary artery disease invo lving mashpee heart without angina pectoris 06/08/2023 Hepatic steatosis [...] as of this encounter (statuses as of 09/26/2024) Resolved Problems Problem Noted Date Diagnosed Date [...] as of this encounter (statuses as of 09/26/2024) Social History Tobacco Use Types Packs/Day Years [...] 01/01/2024 Does the household have a re lar source of income? (Household - for ages [...] Telephone Encounter - Judy Aguilera OSA - 09/26/2024 5:31 PM EST Done. 09/26/2024 * Telephone Encounter - Anabela Lopez MD - 09/15/2024 12:16 PM EST Pt needs to see a provider in person for recent visit, blood tests, several concerns Please schedule visit kiesha * Telephone Encounter - Jayashree Mcmanus LPN - 09/12/2024 3:27 PM EST Leeanne called and states that pt has a case management available. She states that they tried to reach out to patient couple of times but she could get patient. FYI documented in this encounter Plan of Treatment Upcoming Encounters Date Type Department Care Team (Late st Contact Info) Description 09/28/2024 9:40 AM EST [facility] [address] [facility] [place] [phone] JanuaryMunir MD [address] [facility] [place] [phone] 11/17/2024 2:40 PM EST [facility] [place] [facility] [place] [address] Omer Wayne MD [address] [facility] [place] [address] 01/11/2025 8:40 AM EDT Office Visit Pulmonary Medicine, [facility] [address] [place] [address] Ronny Virk MD [address] [facility] [place] [address] 03/09/2025 2:00 PM EDT Office Visit Sleep Disorders Ctr [facility] [address] [place] [phone] Jeanette Michael CRNP [address] [place] [address] Health Maintenance Due Date Last Done Comments [...] ASSESSMENT COMPLETED IN PAST YEAR FOR COPD 09/09/2025 09/09/2024 Albumin/Creatinine Ratio 10/28/2026 10/28/2023, 06/02/2023 Diabetes Screening [...] this encounter Medical Devices Implanted Type Area Carrier Driver Device Identifier Shelf Expiration Date Model / Serial / Lot Mesh Plug Prefix Lg [id number] - [id number] Implanted:Qty: 1 on 03/12/2018 by Donovan Raza MD at OR [facility] [address] Right: Groin CR BARD : DAVOL 10/21/2018 [id number] / / [id number] documented as of this encounter Care Teams Interactive Project Manager Relationship Specialty Start Date End Date Omer Wayne MD PCP - General 02/19/05 documented as of this encounter
--- OUTSIDE RECORDS SUMMARY | 2024-10-18 06:35 | External Medical Summary ---
Author Name Unknown Address Unknown Organization K01:[facility] [place] [address] [facility] [place] [address] Laboratory Report Ordering Provider Test Date Status 09/28/2024 10:36:46 Final Rheumatoid factor at a level above 50 [...] definitively correlate with clinical severity of disease. Observation Date Value Abnormality Reference (Units ) Status Fibrin D-dimer FEU [Mass/volume] in Platelet poor plasma by Immunoassay 09/28/2024 10:36:46 0.79 Above high normal <0.50 (ug/mL FEU) Final Performing Location [facility] [place] - [facility] [place] [address]
--- OUTSIDE RECORDS SUMMARY | 2024-10-18 06:35 | External Medical Summary | Summary of Care ---
Author Name Unknown Organization [facility] Address [address] [place] [address] Phone [phone] Care Team Providers Care Electrical System Specialist Name Role Phone Omer Wayne MD Primary Care Provider +1- [phone] Reason for Visit * Reason Onset Date Comments FYI 09/26/2024 LGI Encounter Details Date Type Department Care Team (Late st Contact Info) Description 09/26/2024 Telephone [facility] [place] [address] [phone] Omer Wayne MD [address] [place] [address] FYI (LGI) Allergies Active Allergy Reactions Criticality Noted Date Comments Onel Inhibitors 10/22/2023 To be avoided due to bilateral renal artery stenosis and worsening kidney function when on previously Prednisone 04/07/2023 documented as of this encounter (statuses as of 09/26/2024) Medications EQ Aspirin Adult Low Dose 81 MG Oral Tablet Delayed ReleaseIndications :Coronary artery disease involving kotlik coronary artery of kotlik heart without angina pectoris Take 1 Tablet [...] )Indications:COPD, group D, by GOLD 2017 classification ([facility]) Inhale 1 Puff by mouth in the [...] Oral Tablet (Lipitor)Indicatio ns:Coronary artery disease involving kotlik coronary artery of kotlik heart without angina pectoris,Dyslipide aracely, goal LDL [...] failure 10/21/2023 Coronary artery disease invo lving kotlik heart without angina pectoris 06/08/2023 Hepatic steatosis [...] Classification Neurogenic claudication 03/15/201509/21 Neurogenic claudication 03/15/2015 05/0 [...] No 01/01/2024 Does the household have a [facility] source of income? (Household - for ages [...] encounter Miscellaneous Notes * Telephone Encounter - Hussein Pat LPN - 09/26/2024 12:20 PM EST Through advanced analysis/trending of this patients Complete Blood Counts (CBC), they have been identified to have a positive LGI flag and at a higher risk for hidden bleeding in the intestine dueto several conditions such as ulcers, colon polyps, harmless conditions, or even colon cancer. This advanced analysis estimates the patient's risk of these kinds of conditions. It only indicatesthat the patient's chances to have one of these conditions are higher compared to most people. It does not indicate that the patient has any of these conditions but is highly recommended the patient have a colonoscopy for further evaluation. Patients with a positive LGI flag have a 40% chance (six times more likely) of having a serious GI pathology finding versus unflagged patients. Colonoscopy outreach: Left message Thank you. Hussein Pat LPN documented in this encounter Plan of Treatment Upcoming Encounters Date Type Department Care Team (Late st Contact Info) Description 11/17/2024 2:40 PM EST [facility] [place] [place] [place] [address] [facility] [place] [phone] Omer Wayne MD [address] [facility] [place] [address] 01/11/2025 8:40 AM EDT Office Visit Pulmonary Medicine, [facility] [address] [facility] [place] [address] Ronny Virk MD [address] [facility] [address] 03/09/2025 2:00 PM EDT Office Visit Sleep Disorders Ctr [facility] [address] [facility] [place] [phone] Jeanette Michael CRNP [address] [facility] [place] [address] Health Maintenance Due Date Last Done Comments [...] COPD 09/09/2025 09/09/2024 Albumin/Creatinine Ratio 10/28/2026 10/28/2023, 02/20 Diabetes Screening 09/09/2027 09/09/2024, 1 11/02/2023, 04/28/2024, [...] this encounter Medical Devices Implanted Type Area Electric Power Machine Operator Device Identifier Shelf Expiration Date Model / Serial / Lot Mesh Plug Prefix [id number] [id number] - [id number] Implanted:Qty: 1 on 03/12/2018 by Donovan Raza MD at OR [facility] Right: Groin CR BARD : DAVOL 10/21/2018 [id number] / / [id number] documented as of this encounter Care Teams Electrical System Specialist Relationship Specialty Start Date End Date Omer Wayne MD PCP - General 02/19/05 documented as of this encounter
--- OUTSIDE RECORDS SUMMARY | 2024-10-18 06:35 | External Medical Summary | Summary of Care ---
Author Name Unknown Organization [facility] Address [address] [place] [address] Phone [phone] Care Team Providers Care Country Printer Name Role Phone Omer Wayne MD Primary Care Provider [phone]- [phone] Reason for Referral * Evaluate & Treat - Unlimited Visits (Within 10 days (routine)) - Pending Review Specialty Diagnoses / Procedures Referred By Contjeimy t Referred To Contact Gastroenterology Diagnoses Special screening for malignant neoplasm of colon Omer Wayne MD [address] [address] Phone: tel: fax: Referral ID Status Reason Start Date Expiration Date Visits Requested Visits Authorized [id number] Pending Review Ancillary Services Required 09/27/2024 1 1 Question Answer Referral Priority Within 10 days (routine) Where should this appointment be scheduled? [facility] Reason for Visit * Reason Onset Date Comments FYI 09/26/2024 LGI Encounter Details Date Type Department Care Team (Late st Contact Info) Description [facility] [address] [place] [phone] Omer Wayne MD [address] [address] FYI (LGI) Allergies Active Allergy Reactions Criticality Noted Date Comments Onel Inhibitors 10/22/2023 To be avoided due to bilateral renal artery stenosis and worsening kidney function when on previously Prednisone 04/07/2023 documented as of this encounter (statuses as of 09/27/2024) Medications EQ Aspirin Adult Low Dose 81 MG Oral Tablet Delayed ReleaseIndications :Coronary artery disease involving [place] coronary artery of [place] heart without angina pectoris Take 1 Tablet [...] )Indications:COPD, group D, by GOLD 2017 classification ([facility]) Inhale 1 Puff by mouth [...] mouth for four days. 6 Tablet 07/05/20 Active Additional Information Patient not taking.Reported on 09/09/2024 Atorvastatin Calcium 80 MG Oral Tablet (Lipitor)Indicatio ns:Coronary artery disease involving [place] coronary artery of [place] heart without angina pectoris,Dyslipide aracely, goal LDL below 70 Take 1 Tablet by mouth in the morning. 90 Tablet 3 07/11/20 Active Albuterol Sulfate 0.63 MG/3ML Inhalation Nebulization Solution (Accuneb) Inhale 1 Vial via nebulizer every 6 hours as needed for Wheezing or Shortness of Breath. 360 mL 09/01/20 Active Potassium Chloride Alba ER 20 MEQ Oral Tablet Extended Release Take 1 Tablet by mouth in the morning and 1 Tablet before bedtime. 180 Tablet 1 09/07/20 Active documented as of this encounter (statuses as of 09/27/2024) Active Problems Problem Noted Date Diagnosed Date COPD, group D, by GOLD 2017 classification 11/29 Overview: Per COPD GOLD Classification Pulmonary emphysema 10/26/2023 Renal artery stenosis 10/22/2023 Hypertensive heart disease w ith chronic diastolic congestive heart failure 10/21/2023 Coronary artery disease invo lving [place] heart without angina pectoris 06/08/2023 Hepatic steatosis [...] as of this encounter (statuses as of 09/27/2024) Resolved Problems Problem Noted Date Diagnosed Date [...] as of this encounter (statuses as of 09/27/2024) Social History Tobacco Use Types Packs/Day Years [...] encounter Miscellaneous Notes * Addendum Note - Hussein Pat LPN - 09/27/2024 10:40 AM ESTAddended by: HUSSEIN PAT on: 09/27/2024 10:40 AM Modules accepted: Orders * Telephone Encounter - Hussein Pat LPN - 09/27/2024 10:39 AM EST Through advanced analysis/trending of this patients [...] pathology finding versus unflagged patients. Colonoscopy outreach: Colonoscopy ordered scheduled Prep mailed to patient Thank you. Hussein Pat LPN * Telephone Encounter - Hussein Pat LPN [...] Department Care Team (Latest Contact Info) Description 09/28/2024 9:40 AM EST [facility] [place] [place] [address] [phone] Munir Dickens MD [address] [place] [address] 11/17/2024 2:40 PM EST [facility] [place] [address] [place] [phone] Omer Wayne MD [address] [place] [address] 01/11/2025 8:40 AM EDT Office Visit Pulmonary Medicine, [facility] [address] [place] [address] Ronny Virk MD [address] [place] [address] 01/31/2025 1:00 PM EDT Hospital Encounter ENDO [facility], Endoscopy Room [facility] [address] [place] [phone] Rishabh Grady, DO [address] [place] [address] 01/31/2025 1:00 PM EDT - 01/31/2025 1:30 PM EDT Surgery ENDO [facility], Endoscopy Room [facility] [address] [place] [phone] Rishabh Grady, DO [address] [place] [address] COLONOSCOPY FLEXIBLE PROXIMAL DIAGNOSTIC 03/09/2025 2:00 PM EDT Office Visit [facility] [address] [place] [phone] Jeanette Michael CRNP [address] [place] [address] Scheduled Procedures Name Priority Associated Diagnoses Date/Ti me COLONOSCOPY FLEXIBLE PROXIMAL DIAGNOSTIC Screen for colon cancer 01/31/2025 1:00 PM EDT Scheduled Referrals Name Type Priority Associated Diagnoses Orde r Schedule COLONOSCOPY, GI REFERRAL OP Referral Within 10 days (routine) Special screening for malignant neoplasm of colon Ordered: 09/27/2024 Health Maintenance Due Date Last Done Comments [...] this encounter Medical Devices Implanted Type Area Shotgun Shell Reprinting Unit Operator Device Identifier Shelf Expiration Date Model / Serial / Lot Mesh Plug Prefix Lg [id number] - [id number] Implanted:Qty: 1 on 03/12/2018 by Donovan Raza MD at [facility] Right: Groin CR BARD : DAVOL 10/21/2018 [id number] / / [id number] documented as of this encounter Visit Diagnoses Diagnosis Special screening for malignant neoplasm of colon- Primary Special screening for malignant neoplasms, colon Screen for colon cancer Special screening for malignant neoplasms, colon documented in this encounter Care Teams Country Printer Relationship Specialty Start Date End Date Omer Wayne MD PCP - General 02/19/05 documented as of this encounter
--- OUTSIDE RECORDS SUMMARY | 2024-10-18 06:35 | External Medical Summary ---
Author Name Unknown Address Unknown Organization K01:LABORATORY [facility] [place] - [address] [facility] [address] Laboratory Report Ordering Provider Test Date Status 09/28/2024 10:36:46 Final Observation Date Value Abnormality Reference (Units ) Status SYNC LEUKOCYTES IN BLOOD BY AUTOMATED COUNT 09/28/2024 10:36:46 7.15 4.00-10.80 (K/uL) Final Segs 09/28/2024 10:36:46 80.8 Above high normal 40.0-75.0 (%) Final Lymphs % 09/28/2024 10:36:46 10.9 Below low normal 18.0-42.0 (%) Final Monos 09/28/2024 10:36:46 6.6 1.0-11.0 (%) Final Eosinophils 09/28/2024 10:36:46 0.6 0.0-6.0 (%) Final Basos 09/28/2024 10:36:46 0.7 0.0-2.0 (%) Final Immature Granulocyte, Percent 09/28/2024 10:36:46 0.4 0.0-2.0 (%) Final Absolute Segs 09/28/2024 10:36:46 5.78 1.80-7.70 (K/uL) Final Lymphs, absolute 09/28/2024 10:36:46 0.78 Below low normal 1.00-4.80 (K/ul) Final Monos, Abs 09/28/2024 10:36:46 0.47 0.00-1.10 (K/uL) Final Eos, Abs 09/28/2024 10:36:46 0.04 0.00-0.70 (K/uL) Final Basos, Abs 09/28/2024 10:36:46 0.05 0.00-0.20 (K/uL) Final Immature Granulocytes, Number 09/28/2024 10:36:46 0.03 0.00-0.20 (K/uL) Final Performing Location LABORATORY [facility] [place] - [address] [facility] [address]
--- OUTSIDE RECORDS SUMMARY | 2024-10-18 06:35 | External Medical Summary | Summary of Care ---
Author Name Unknown Organization [facility] Address [address] [place] [address] Phone [phone] Care Team Providers Care Sequins Winder Name Role Phone Sirisha De La Rosa MD Primary Care Provider +1- [phone] Reason for Visit * Reason Onset Date Comments Test Results 09/02/2024 Encounter Details Date Type Department Care Team (Late st Contact Info) Description 09/02/2024 Telephone [facility] [address] [place] [address] [phone] Sirisha De La Rosa MD [address] [facility] [place] [address] Test Results Allergies Active Allergy Reactions Criticality Noted Date Comments Onel Inhibitors 10/22/2023 To be avoided due to bilateral renal artery stenosis and worsening kidney function when on previously Prednisone 04/07/2023 documented as of this encounter (statuses as of 09/26/2024) Medications EQ Aspirin Adult Low Dose 81 MG Oral Tablet Delayed ReleaseIndications :Coronary artery disease involving lime coronary artery of lime heart without angina pectoris Take 1 Tablet [...] Oral Tablet (Lipitor)Indicatio ns:Coronary artery disease involving lime coronary artery of lime heart without angina pectoris,Dyslipide aracely, goal LDL [...] before bedtime. 180 Tablet 1 09/07/20 Active Cyanocobalamin 1000 MCG Oral Capsule Take by mouth. Discontin ued(Patie nt preferenc e/discont inuation) Thiamine HCl 100 MG Oral Tablet Take 1 Tablet by mouth in the morning. Discontin ued(Patie nt preferenc e/discont inuation) busPIRone HCl 5 MG Oral Tablet (Buspar) Take 1 Tablet by mouth in the morning and 1 Tablet at noon and 1 Tablet before bedtime. 12/07/19 Discontin ued(Patie nt preferenc e/discont inuation) oxyCODONE HCl 5 MG Oral Tablet (Oxy IR) Take 1 Tablet by mouth every 6 hours as needed. 01/14/20 Discontin ued(Patie nt preferenc e/discont inuation) methylPREDNISolone 4 MG Oral Tablet Therapy Pack (Medrol Dosepack) TAKE BY MOUTH DIRECTED ON INSIDE OF PACKAGE 01/18/20 Discontin ued(Patie nt preferenc e/discont inuation) Vitamin D (Ergocalciferol) 04857 UNIT Oral Capsule Take by mouth. Discontin ued(Patie nt preferenc e/discont inuation) Potassium Chloride Alba ER 20 MEQ Oral Tablet Extended ReleaseIndications :Hypertensive left ventricular hypertrophy, without heart failure Take 1 Tablet by mouth in the morning. 90 Tablet 3 06/14/20 24 Discontin ued(Medic ation/Dos e Changed) documented as of this encounter (statuses as of 09/26/2024) Active Problems Problem Noted Date Diagnosed Date COPD, group D, by GOLD 2017 classification 11/29 Overview: Per COPD GOLD Classification Pulmonary emphysema 10/26/2023 Renal artery stenosis 10/22/2023 Hypertensive heart disease w ith chronic diastolic congestive heart failure 10/21/2023 Coronary artery disease invo lving lime heart without angina pectoris 06/08/2023 Hepatic steatosis [...] encounter Miscellaneous Notes * Telephone Encounter - Anna Marie Lomeli LPN - 09/26/2024 3:05 PM EST I called and and spoke with patient who did not recall why he had called in on 09/08, I went back through the conversation with him and he states he is still having dizziness upon standing and would like to schedule an appointment. States that he has tried skipping his medication and saw some relief in the dizziness. Transferred out front to schedule. * Telephone Encounter - Joyce Martinez OSA - 09/23/2024 3:51 PM EST Reason for patient's call: Patient returning call to office. He was contacted on 09-08-24 but doesn't remember the call. He would like to speak to nurse. He says symptoms aren't worse, but they're not better either. Transfer to DNL was unanswered. * Telephone Encounter - Jayashree Mcmanus LPN - 09/08/2024 1:16 PM EST The patient is aware, and verbalizes an understanding. Pt states that he has an appt tomorrow 12/20with Dr lopez. Made pt aware to go to the ED if symptoms worsen. * Addendum Note - Sirisha De La Rosa MD - 09/07/2024 7:45 PM ESTAddended by: SIRISHA DE LA ROSA on: 09/07/2024 07:45 PM Modules accepted: Orders * Telephone Encounter - Sirisha De La Rosa MD - 09/07/2024 7:42 PM EST Increase potassium to twice per day. Repeat labs ordered. Given the other symptoms that he is reporting, agree with ov. Consider ED if worsening symptoms prior to ov. * Addendum Note - Annemarie Goncalves LPN - 09/07/2024 3:16 PM ESTAddended by: ANNEMARIE GONCALVES on: 09/07/2024 03:16 PM Modules accepted: Orders * Telephone Encounter - Annemarie Goncalves LPN - 09/07/2024 2:56 PM EST Patient aware and verbalized understanding Pt is taking potassium once daily, no missed doses. Order pending for twice dialy No blood loss He is getting dizzy spells with standing, he almost blacks out. He had a fall the other night, no injury he didn't hit his head. He check BP 74/40 rechecked a few minutes later 91/? Due to BP being low that evening he skipped his dose of carvedilol and the next day in morning he only took 2 tab of the 12.5 mg carvedilol instead of 3 tabs. Pt drinks nearly half gallon of fluids a daily. He does use his walker with ambulation. No dizzy currently. Pt indicates while sitting he doesn't have dizziness. He has not checked BP since. Educated pt to do leg exercise prior to standing, stand slowly always use the walker. He verbalized understanding. No appts in avail today or tomorrow in any surrounding clinic. Scheduled appt with Dr Lopez on 09/09 at 9:40am. * Telephone Encounter - Aleah Gerardo LPN - 09/07/2024 2:46 PM EST Attempted to call patient, there was no answer, left voicemail. When patient returns call, ok for SAROJ to relay message, please refer to below documentation. If needed, can transfer to dedicated nurse line. See messages below. * Telephone Encounter - Aleyda Vaca LPN - 09/02/2024 3:17 PM EST Left detailed message on identified machine. If patient calls back please verify if he is taking potassium and how he is taking it. Also check to see if he is aware of any blood loss via urine or stool * Telephone Encounter - Sirisha De La Rosa MD - 09/02/2024 11:01 AM EST Please call pt to notify of test results. Recent labs show: Normal kidney function Improved liver enzymes from the last lab check. Potassium level is low at 3.0. Please confirm that he is taking the potassium supplement 20 meq once per day. If he is not, he should start. If he has been taking it, should increase to twice per day - send back to me for erx. Hgb level is low at 10.3 and has declined from previous check. Is he aware of any blood loss (stools, urine) lately? Glucose slightly high at 124. I would suggest that he return for repeat labs after back on the potassium (or on the higher dose) for about 2 weeks. We will recheck his potassium but also get further labs to evaluate the anemia and elevated blood sugars. documented in this encounter Plan of Treatment Upcoming Encounters Date Type Department Care Team (Late st Contact Info) Description 11/17/2024 2:40 PM EST Office Visit Family Practice, [place] [address] [place] [phone] Sirisha De La Rosa MD [address] [address] 01/11/2025 8:40 AM EDT Office Visit Pulmonary Medicine, [facility] [address] [facility] [place] [address] Ronny Virk MD [address] [place] [address] 03/09/2025 2:00 PM EDT Office Visit Sleep Disorders [facility]tr [facility] [address] [facility] [address] [place] [phone] Jeanette Michael CRNP [address] [facility] [place] [place] [address] Scheduled Orders Name Type Priority Associated Diagnoses Orde r Schedule HGB Lab Routine Anemia, unspecified type Expected: 09/02/2024 (Approximate), Expires: 09/02/2025 FERRITIN Lab Routine Anemia, unspecified type Expected: 09/02/2024 (Approximate), Expires: 09/02/2025 IRON SCREEN, INCLUDING TIBC Lab Routine Anemia, unspecified type Expected: 09/02/2024 (Approximate), Expires: 09/02/2025 VITAMIN B12 Lab Routine Anemia, unspecified type Expected: 09/02/2024 (Approximate), Expires: 09/02/2025 HEMOGLOBIN A1C Lab Routine Elevated glucose Expected: 09/02/2024 (Approximate), Expires: 09/02/2025 BASIC METABOLIC PANEL Lab Routine Hypokalemia Elevated glucose Expected: 09/02/2024 (Approximate), Expires: 09/02/2025 Health Maintenance Due Date Last Done Comments Alpha-1 Antitrypsin 1981 Pneumococcal Vaccine: 50+ Years (1 of 2 - PCV) 1982 Cologuard 2008 Colonoscopy 2008 Colorectal Cancer Screening 2008 Fecal Occult Blood Test 2008 Sigmoidoscopy 2008 COVID-19 Vaccine ( - season) 2024 Influenza Vaccine (FLU shot) (#1) [...] this encounter Medical Devices Implanted Type Area End User Consultant Device Identifier Shelf Expiration Date Model / Serial / Lot Mesh Plug Prefix Lg [id number] - [id number] Implanted:Qty: 1 on 03/12/2018 by Donovan Raza MD at OR [facility] Right: Groin CR BARD : DAVOL 10/21/2018 [id number] / / [id number] documented as of this encounter Visit Diagnoses Diagnosis Hypokalemia- Primary Hypopotassemia Elevated glucose Other abnormal glucose Anemia, unspecified type documented in this encounter Care Teams Sequins Winder Relationship Specialty Start Date End Date Sirisha De La Rosa MD PCP - General 02/19/05 documented as of this encounter
--- OUTSIDE RECORDS SUMMARY | 2024-10-18 06:35 | External Medical Summary ---
Author Name Unknown Address Unknown Organization K01:LABORATORY [facility] [place] - [address] [facility] [place] [address] Laboratory Report Ordering Provider Test Date Status 09/28/2024 10:36:46 Final Observation Date Value Abnormality Reference (Units ) Status BUN 09/28/2024 10:36:46 9 6-20 (mg/dL) Final Creatinine 09/28/2024 10:36:46 0.9 0.6-1.2 (mg/dL) Final Glomerular filtration rate/1.73 sq M.predicted [Volume Rate/Area] in Serum, Plasma or Blood by Creatinine-based formula (CKD-EPI) 09/28/2024 10:36:46 >90 >=60 (mL/min) Final eGFR is calculated based on the CKD-EPI 2020 equation. Sodium 09/28/2024 10:36:46 138 135-146 (m mol/L) Final Potassium 09/28/2024 10:36:46 4.2 3.5-5.1 (m mol/L) Final Cl 09/28/2024 10:36:46 102 98-107 (mm ol/L) Final CO2 09/28/2024 10:36:46 20 Below low normal 22- 32 (mmol/L) Final Anion gap 09/28/2024 10:36:46 16 Above high normal 7- 15 (mmol/L) Final Glucose 09/28/2024 10:36:46 119 70-120 (mg /dL) Final Albumin 09/28/2024 10:36:46 3.4 Below low normal 3.8 -5.0 (g/dL) Final AST (Aspartate aminotransferase) 09/28/2024 10:36:46 56 Above high normal 10-50 (U/L) Final Alk Phos 09/28/2024 10:36:46 159 Above high normal 35 -130 (U/L) Final Bilirubin, Total 09/28/2024 10:36:46 1.0 <=1 .2 (mg/dL) Final Calcium 09/28/2024 10:36:46 8.6 8.4-10.2 ( mg/dL) Final Protein 09/28/2024 10:36:46 6.3 6.0-8.3 (g /dL) Final ALT (Alanine aminotransferase) 09/28/2024 10:36:46 26 10-50 (U/L) Jimi vee Performing Location LAB[facility]ATORY [facility] [place] - [address] [facility] [address]
--- OUTSIDE RECORDS SUMMARY | 2024-10-18 06:35 | External Medical Summary ---
Author Name Unknown Address Unknown Organization K01:LABORATORY [facility] [place] - [address] [place] [address] Laboratory Report Ordering Provider Test Date Status 09/28/2024 10:36:46 Final Observation Date Value Abnormality Reference (Units ) Status Iron 09/28/2024 10:36:46 194 Above high normal 45-176 (ug/dL) Final Iron-binding capacity 09/28/2024 10:36:46 194 Below low normal 250-425 (ug/dL) Final Transferrin Sat % 09/28/2024 10:36:46 100 Above high normal 15-55 (%) Final Performing Location LABORATORY C - [address] [place] [address]
--- OUTSIDE RECORDS SUMMARY | 2024-10-18 06:36 | External Medical Summary | Summary of Care ---
Author Name Unknown Organization [facility] Address [address] [place] [address] Phone [phone] Care Team Providers Care It Field Technician Name Role Phone Sirisha De La Rosa MD Primary Care Provider +1- [phone] Reason for Visit * Reason Onset Date Comments Test Results 09/02/2024 Encounter Details Date Type Department Care Team (Late st Contact Info) Description 09/02/2024 Telephone [facility] Marilia Astorga [address] [phone] Sirisha De La Rosa MD [address] [facility] [place] [address] Test Results Allergies Active Allergy Reactions Criticality Noted Date Comments Onel Inhibitors 10/22/2023 To be avoided due to bilateral renal artery stenosis and worsening kidney function when on previously Prednisone 04/07/2023 documented as of this encounter (statuses as of 09/08/2024) Medications EQ Aspirin Adult Low Dose 81 MG Oral Tablet Delayed ReleaseIndications :Coronary artery disease involving [place] coronary artery of [place] heart without angina pectoris Take 1 Tablet by mouth daily. In the morning. 90 Tablet 3 03/11/20 23 Active Additional Information Patient not taking.Reported on 07/05/2024 Baclofen 10 MG Oral Tablet (Lioresal) Take 1 Tablet by mouth in the morning and 1 Tablet at noon and 1 Tablet before bedtime. 90 Tablet 1 06/08/20 23 Active Cyanocobalamin 1000 MCG Oral Capsule Take by mouth. Activ e Thiamine HCl 100 MG Oral Tablet Take 1 Tablet by mouth in the morning. Active busPIRone HCl 5 MG Oral Tablet (Buspar) Take 1 Tablet by mouth in the morning and 1 Tablet at noon and 1 Tablet before bedtime. 12/07/19 24 Active traMADol HCl 50 MG Oral Tablet (Ultram)Indication s:DDD (degenerative disc disease), lumbar,Spinal stenosis of lumbar region with neurogenic claudication Take 1 Tablet by mouth 2 times a day as needed for Pain, Severe. 30 Tablet 01/01/20 24 Active Additional Information Patient not taking.Reported on 07/05/2024 oxyCODONE HCl 5 MG Oral Tablet (Oxy IR) Take 1 Tablet by mouth every 6 hours as needed. 01/14/20 24 Active methylPREDNISolone 4 MG Oral Tablet Therapy Pack (Medrol Dosepack) TAKE BY MOUTH DIRECTED ON INSIDE OF PACKAGE 01/18/20 Active Vitamin D (Ergocalciferol) 57680 UNIT Oral Capsule Take by mouth. Activ e Carvedilol 12.5 MG Oral Tablet (Coreg)Indications :Hypertensive [...] )Indications:COPD, group D, by GOLD 2017 classification ([facility]) Inhale 1 Puff by mouth in [...] four days. 6 Tablet 07/05/20 24 Active Atorvastatin Calcium 80 MG Oral Tablet (Lipitor)Indicatio ns:Coronary artery disease involving [place] coronary artery of [place] heart without angina pectoris,Dyslipide aracely, goal LDL [...] bedtime. 180 Tablet 1 09/07/20 24 Active Potassium Chloride Alba ER 20 MEQ Oral Tablet Extended ReleaseIndications :Hypertensive left ventricular hypertrophy, without heart failure Take 1 Tablet by mouth in the morning. 90 Tablet 3 06/14/20 24 024 Discontin ued(Medic ation/Dos e Changed) documented as of this encounter (statuses as of 09/08/2024) Active Problems Problem Noted Date Diagnosed Date COPD, group D, by GOLD 2017 classification 11/29 Overview: Per COPD GOLD Classification Pulmonary emphysema 10/26/2023 Renal artery stenosis 10/22/2023 Hypertensive heart disease w ith chronic diastolic congestive heart failure 10/21/2023 Coronary artery disease invo lving [place] heart without angina pectoris 06/08/2023 Hepatic steatosis [...] as of this encounter (statuses as of 09/08/2024) Resolved Problems Problem Noted Date Diagnosed Date [...] as of this encounter (statuses as of 09/08/2024) Social History Tobacco Use Types Packs/Day Years [...] encounter Miscellaneous Notes * Telephone Encounter - Jayashree Mcmanus LPN - 09/08/2024 1:16 PM EST The patient is aware, and verbalizes an understanding. Pt states that he has an appt tomorrow 09/09with Dr lopez. Made pt aware to go [...] Care Team (Late st Contact Info) Description 09/09/2024 9:40 AM EST Office Visit [facility] Jelly Adan [address] [phone] Anabela Lopez MD [address] [address] 12/19/2024 11:40 AM EDT Office Visit [facility] Jelly Adan [address] [phone] Sirisha De La Rosa MD [address] [address] 01/11/2025 8:40 AM EDT Office Visit Pulmonary Medicine, [facility] [address] [place] [place] [address] Ronny Virk MD [address] [place] [address] 03/09/2025 2:00 PM EDT Office Visit [facility] Disorders [facility]tr [facility] [address] [phone] Jeanette Michael CRNP [address] [address] Scheduled Orders Name Type Priority Associated Diagnoses [...] shot) (#1) 2024 Depression Screening 12/31/2024 01/01/2024 O2 ASSESSMENT COMPLETED IN PAST YEAR FOR COPD 07/05/2025 07/05/2024 GFR 09/01/2025 09/01/2024, 08/21, 04/28/2024, Additional history exists Albumin/Creatinine Ratio 10/28/2026 10/28/2023, 02/20 Diabetes Screening 09/01/2027 09/01/2024, 0 04/28/2024, 10/01/2023, Additional history exists DTap/Tdap Vaccines (2 - [...] this encounter Medical Devices Implanted Type Area Industrial Conveyor Belt Repairer Device Identifier Shelf Expiration Date Model / Serial / Lot Mesh Plug Prefix Lg [id number] - [id number] Implanted:Qty: 1 on 03/12/2018 by Donovan Raza MD at OR [facility] Right: Groin CR BARD : DAVOL 10/21/2018 [id number] / / [id number] documented as of this encounter Visit Diagnoses Diagnosis Hypokalemia- Primary Hypopotassemia Elevated glucose Other abnormal glucose Anemia, unspecified type documented in this encounter Care Teams It Field Technician Relationship Specialty Start Date End Date Sirisha De La Rosa MD PCP - General 02/19/05 documented as of this encounter
--- OUTSIDE RECORDS SUMMARY | 2024-10-18 06:36 | External Medical Summary | Summary of Care ---
Author Name Unknown Organization [facility] Address [address] [place] [address] Phone [phone] Care Team Providers Care Knitting Machine Operator Helper Name Role Phone Omer Wayne MD Primary Care Provider +1- [phone] Encounter Details Date Type Department Care Team (Late st Contact Info) Description 09/15/2024 External Data Patient Risk Medial Allergies Active Allergy Reactions Criticality Noted Date Comments Onel Inhibitors 10/22/2023 To be avoided due to bilateral renal artery stenosis and worsening kidney function when on previously Prednisone 04/07/2023 documented as of this encounter (statuses as of 09/15/2024) Medications EQ Aspirin Adult Low Dose 81 MG Oral Tablet Delayed ReleaseIndications :Coronary artery disease involving [place] coronary artery of [place] heart without angina pectoris Take 1 Tablet [...] )Indications:COPD, group D, by GOLD 2017 classification ([facility]) Inhale 1 Puff by mouth in the [...] Oral Tablet (Lipitor)Indicatio ns:Coronary artery disease involving [place] coronary artery of [place] heart without angina pectoris,Dyslipide aracely, goal LDL [...] as of this encounter (statuses as of 09/15/2024) Active Problems Problem Noted Date Diagnosed Date COPD, group D, by GOLD 2017 classification 11/29 Overview: Per COPD GOLD Classification Pulmonary emphysema 10/26/2023 Renal artery stenosis 10/22/2023 Hypertensive heart disease w ith chronic diastolic congestive heart failure 10/21/2023 Coronary artery disease invo lving [place] heart without angina pectoris 06/08/2023 Hepatic steatosis [...] as of this encounter (statuses as of 09/15/2024) Resolved Problems Problem Noted Date Diagnosed Date [...] as of this encounter (statuses as of 09/15/2024) Social History Tobacco Use Types Packs/Day Years [...] PM EDT documented as of this encounter Plan of Treatment Upcoming Encounters Date Type Department Care Team (Late st Contact Info) Description 11/17/2024 2:40 PM EST Office Visit [facility] [address] [facility] [facility] [address] [place] [phone] Omer Wayen MD [address] [address] 01/11/2025 8:40 AM EDT Office Visit Pulmonary Medicine, [facility] [address] [place] [address] Ronny Virk MD [address] [place] [address] 03/09/2025 2:00 PM EDT Office Visit Sleep Disorders Ctr [facility] [address] [place] [phone] Jeanette Michael CRNP [address] [place] [address] Health Maintenance Due Date Last Done Comments [...] COPD 09/09/2025 09/09/2024 Albumin/Creatinine Ratio 10/28/2026 10/28/2023, /02/2023 Diabetes Screening 09/09/2027 09/09/2024, 1 11/02/2023, 04/28/2024, [...] this encounter Medical Devices Implanted Type Area Talkback Host Device Identifier Shelf Expiration Date Model / Serial / Lot Mesh Plug Prefix Lg [id number] - [id number] Implanted:Qty: 1 on 03/12/2018 by Donovan Raza MD at OR [facility] Right: Groin CR BARD : DAVOL 10/21/2018 [id number] / / [id number] documented as of this encounter Care Teams Knitting Machine Operator Helper Relationship Specialty Start Date End Date Omer Wayne MD PCP - General 02/19/05 documented as of this encounter
--- OUTSIDE RECORDS SUMMARY | 2024-10-18 06:36 | External Medical Summary | Summary of Care ---
Author Name Unknown Organization [facility] Address [address] [place] [address] Phone [phone] Care Team Providers Care Materials Planning Manager Name Role Phone Omer Wayne MD Primary Care Provider +1- [phone] Reason for Visit * Reason Onset Date Comments Durable Medical Equipment 08/19/2024 CPAP Encounter Details Date Type Department Care Team (Late st Contact Info) Description 08/19/2024 Telephone Sleep Disorders Ctr [facility] [address] [place] [place] [phone] Jeanette Michael CRNP [address] [place] [address] Durable Medical Equipment (CPAP ) Allergies Active Allergy Reactions Criticality Noted Date Comments Onel Inhibitors 10/22/2023 To be avoided due to bilateral renal artery stenosis and worsening kidney function when on previously Prednisone 04/07/2023 documented as of this encounter (statuses as of 09/09/2024) Medications EQ Aspirin Adult Low Dose 81 MG Oral Tablet Delayed ReleaseIndications :Coronary artery disease involving [place] coronary artery of [place] heart without angina pectoris Take 1 Tablet [...] group D, by GOLD 2017 classification ([facility]) Inhale 1 Puff by mouth in the [...] Oral Tablet (Lipitor)Indicatio ns:Coronary artery disease involving [place] coronary artery of [place] heart without angina pectoris,Dyslipide aracely, goal LDL below 70 Take 1 Tablet by mouth in the morning. 90 Tablet 3 07/11/20 24 Active Cyanocobalamin 1000 MCG Oral Capsule Take by mouth. 024 Discontin ued(Patie nt preferenc e/discont inuation) Thiamine HCl 100 MG Oral Tablet Take 1 Tablet by mouth in the morning. 12/20/2 024 Discontin ued(Patie nt preferenc e/discont inuation) busPIRone HCl 5 MG Oral Tablet (Buspar) Take 1 Tablet by mouth in the morning and 1 Tablet at noon and 1 Tablet before bedtime. 12/07/19 24 024 Discontin ued(Patie nt preferenc e/discont inuation) oxyCODONE HCl 5 MG Oral Tablet (Oxy IR) Take 1 Tablet by mouth every 6 hours as needed. 01/14/20 024 Discontin ued(Patie nt preferenc e/discont inuation) methylPREDNISolone 4 MG Oral Tablet Therapy Pack (Medrol Dosepack) TAKE BY MOUTH DIRECTED ON INSIDE OF PACKAGE 01/18/20 Discontin ued(Patie nt preferenc e/discont inuation) Vitamin D (Ergocalciferol) 68302 UNIT Oral Capsule Take by mouth. Discontin ued(Patie nt preferenc e/discont inuation) Potassium Chloride Alba ER 20 MEQ Oral Tablet Extended ReleaseIndications :Hypertensive left ventricular hypertrophy, without heart failure Take 1 Tablet by mouth in the morning. 90 Tablet 3 06/14/20 24 Discontin ued(Medic ation/Dos e Changed) Albuterol Sulfate 0.63 MG/3ML Inhalation Nebulization Solution (Accuneb) Inhale 1 Vial via nebulizer every 6 hours as needed for Wheezing or Shortness of Breath. 360 mL 08/01/20 24 024 Discontin ued(Refil l) documented as of this encounter (statuses as of 09/09/2024) Active Problems Problem Noted Date Diagnosed Date COPD, group D, by GOLD 2017 classification 11/29 Overview: Per COPD GOLD Classification Pulmonary emphysema 10/26/2023 Renal artery stenosis 10/22/2023 Hypertensive heart disease w ith chronic diastolic congestive heart failure 10/21/2023 Coronary artery disease invo lving [place] heart without angina pectoris 06/08/2023 Hepatic steatosis [...] as of this encounter (statuses as of 09/09/2024) Resolved Problems Problem Noted Date Diagnosed Date [...] as of this encounter (statuses as of 09/09/2024) Social History Tobacco Use Types Packs/Day Years [...] Telephone Encounter - Raquel Sanchez LPN - 09/09/2024 10:19 AM EST Per [facility] the pt will need either a video or in person ov to get the CPAP * Telephone Encounter - Raquel Sanchez LPN - 09/09/2024 9:51 AM EST Our office spoke with Alejandra at [facility]. She is going to check with [facility] and call back to let the officeknow if the n encounter from 08/19/24 will cover the order for the cpap * Telephone Encounter - Renee Cruz OSA - 09/08/2024 11:11 AM EST [facility] is now advising that they need a current note for this Pt. * Telephone Encounter - Elle Ferguson LPN - 09/07/2024 2:37 PM EST Note added to TH order. * Telephone Encounter - Yancy Olivares OSA - 09/07/2024 1:33 PM EST Patient called to check on CPAP supplies, as he hasn't heard back regarding this. He would like to use [facility] in [place] for his supplies. Please advise. * Telephone Encounter - Renee Cruz OSA - 09/02/2024 7:40 AM EST Additional SS uploaded. * Telephone Encounter - Jeanette Michael CRNP - 09/01/2024 5:12 PM EST Please re submit with [facility] dated 12/30/2023. * Telephone Encounter - Renee Cruz OSA - 09/01/2024 7:13 AM EST Per TH: "the DME supplier has cancelled this order citing on their end citing patient does not qualify for CPAP due to not sleeping during sleep study test. How would you like us to proceed with the order?" * Telephone Encounter - Renee Cruz OSA - 08/19/2024 9:42 AM EST DME order for CPAP submitted to [facility]. documented in this encounter Plan of Treatment Upcoming Encounters Date Type Department Care Team (Late st Contact Info) Description 09/12/2024 7:40 AM EST [facility] [address] [phone] JanuaryMunir MD [address] [address] 11/17/2024 2:40 PM EST [facility] [place] [facility] [address] [facility] [place] [phone] Omer Wayne MD [address] [facility] [place] [address] 01/11/2025 8:40 AM EDT Office Visit Pulmonary Medicine, [facility] [address] [facility] [place] [address] Ronny Virk MD [address] [facility] [place] [address] 03/09/2025 2:00 PM EDT Office Visit [facility] Disorders Ctr [facility] [address] [facility] [address] [place] [phone] Jeanette Michael CRNP 132 [facility] [address] [place] [address] Health Maintenance Due Date Last Done Comments Alpha-1 Antitrypsin 1981 Pneumococcal Vaccine: Pediatrics (0 to 5 Years) and At-Risk Patients (6 to 64 Years) (1 of 2 - PCV) 1982 Cologuard 2008 Colonoscopy 2008 Colorectal Cancer Screening 2008 Fecal Occult Blood Test 2008 Sigmoidoscopy 2008 COVID-19 Vaccine ( season) 2024 Influenza Vaccine (FLU shot) (#1) 2024 Depression Screening 12/31/2024 01/01/2024 GFR 09/01/2025 09/01/2024, 08/21, 04/28/2024, Additional history exists O2 ASSESSMENT COMPLETED IN [...] encounter Medical Devices Implanted Type Area Concrete Wall Grinder Operator Device Identifier Shelf Expiration Date Model / Serial / Lot Mesh Plug Prefix [id number] [id number] - [id number] Implanted:Qty: 1 on 03/12/2018 by Donovan Raza MD at OR [facility] Right: Toniain CR BARD : DAVOL 10/21/2018 [id number] / / [id number] documented as of this encounter Care Teams Materials Planning Manager Relationship Specialty Start Date End Date Omer Wayne MD PCP - General 02/19/05 documented as of this encounter
--- OUTSIDE RECORDS SUMMARY | 2024-10-18 06:36 | External Medical Summary | Summary of Care ---
Author Name Unknown Organization [facility] Address [address] [place] [address] Phone [phone] Care Team Providers Care Filtration Supervisor Name Role Phone Omer Wayne MD Primary Care Provider +1- [phone] Reason for Visit * Reason Onset Date Comments Durable Medical Equipment 08/19/2024 CPAP Encounter Details Date Type Department Care Team (Late st Contact Info) Description 08/19/2024 Telephone Sleep Disorders Ctr [facility] [address] [place] [phone] Jeanette [...] Tablet Delayed ReleaseIndications :Coronary artery disease involving [place] coronary artery of [place] heart without angina pectoris Take 1 Tablet [...] OF PACKAGE 01/18/20 Active Vitamin D (Ergocalciferol) 40065 UNIT Oral Capsule Take by mouth. Activ [...] group D, by GOLD 2017 classification ([facility]) Inhale 1 Puff by mouth in the [...] for four days. 6 Tablet 07/05/20 Active Atorvastatin Calcium 80 MG Oral Tablet (Lipitor)Indicatio ns:Coronary artery disease involving [place] coronary artery of [place] heart without angina pectoris,Dyslipide aracely, goal LDL below 70 Take 1 Tablet by mouth in the morning. 90 Tablet 3 07/11/20 24 Active Potassium Chloride Alba ER 20 MEQ Oral Tablet Extended ReleaseIndications :Hypertensive left ventricular hypertrophy, without heart failure Take 1 Tablet by mouth in the morning. 90 Tablet 3 06/14/20 24 024 Discontin ued(Medic ation/Dos e Changed) Albuterol Sulfate [...] failure 10/21/2023 Coronary artery disease invo lving [place] heart without angina pectoris 06/08/2023 Hepatic steatosis [...] EST Our office spoke with Alejandra at [facility]. She is going to check with [facility] and call back to let the officeknow if the phn encounter from 08/19/24 will cover the order [...] regarding this. He would like to use [facility] in [place] for his supplies. Please advise. * Telephone [...] EST DME order for CPAP submitted to [facility]. documented in this encounter Plan of Treatment Upcoming Encounters Date Type Department Care Team (Late st Contact Info) Description 12/19/2024 11:40 AM EDT [facility] [place] [phone] Omer Wayne MD [address] [facility] [place] [address] 01/11/2025 8:40 AM EDT Office Visit Pulmonary Medicine, [facility] [address] [address] Ronny Virk MD [address] [facility] [address] 03/09/2025 2:00 PM EDT Office Visit [facility] Disorders Ctr [facility] [address] [phone] Jeanette Michael CRNP [address] [place] [address] Health Maintenance Due Date Last Done Comments [...] this encounter Medical Devices Implanted Type Area Chief Executive Device Identifier Shelf Expiration Date Model / Serial / Lot Mesh Plug Prefix Lg [id number] - [id number] Implanted:Qty: 1 on 03/12/2018 by Donovan Raza MD at OR [facility] Right: Groin CR BARD : DAVOL 10/21/2018 [id number] / / [id number] documented as of this encounter Care Teams Filtration Supervisor Relationship Specialty Start Date End Date Omer Wayne MD PCP - General 02/19/05 documented as of this encounter
--- OUTSIDE RECORDS SUMMARY | 2024-10-18 06:36 | External Medical Summary ---
Author Name Unknown Address Unknown Organization K01:LABORATORY [facility] - [address] [facility] [address] Laboratory Report Ordering Provider Test Date Status EDWIN DENSON 09/09/2024 10:35:29 Final Observation Date Value Abnormality Reference (Units ) Status BUN 09/09/2024 10:35:29 11 6-20 (mg/dL) Final Creatinine 09/09/2024 10:35:29 1.0 0.6-1.2 (mg/dL) Final Glomerular filtration rate/1.73 sq M.predicted [Volume Rate/Area] in Serum, Plasma or Blood by Creatinine-based formula (CKD-EPI) 09/09/2024 10:35:29 87 >=60 (mL/min) Final eGFR is calculated based on the CKD-EPI 2020 equation. Sodium 09/09/2024 10:35:29 135 135-146 (m mol/L) Final Potassium 09/09/2024 10:35:29 3.5 3.5-5.1 (m mol/L) Final Cl 09/09/2024 10:35:29 94 Below low normal 98- 107 (mmol/L) Final CO2 09/09/2024 10:35:29 24 22-32 (mmo l/L) Final Anion gap 09/09/2024 10:35:29 17 Above high normal 7- 15 (mmol/L) Final Glucose 09/09/2024 10:35:29 103 70-120 (mg /dL) Final Albumin 09/09/2024 10:35:29 3.4 Below low normal 3.8 -5.0 (g/dL) Final AST (Aspartate aminotransferase) 09/09/2024 10:35:29 53 Above high normal 10-50 (U/L) Final Alk Phos 09/09/2024 10:35:29 134 Above high normal 35 -130 (U/L) Final Bilirubin, Total 09/09/2024 10:35:29 0.5 <=1 .2 (mg/dL) Final Calcium 09/09/2024 10:35:29 7.8 Below low normal 8.4 -10.2 (mg/dL) Final Protein 09/09/2024 10:35:29 6.2 6.0-8.3 (g /dL) Final ALT (Alanine aminotransferase) 09/09/2024 10:35:29 19 10-50 (U/L) Jimi vee Performing Location LAB[facility]ORY [facility] - [address] [facility] [address]
--- OUTSIDE RECORDS SUMMARY | 2024-10-18 06:36 | External Medical Summary | Summary of Care ---
Author Name Unknown Organization [facility] Address [address] [place] [address] Phone [phone] Care Team Providers Care Auto Striper Name Role Phone Omer Wayne MD Primary Care Provider +1- [phone] Reason for Visit * Reason Comments Outpatient Testing Encounter Details Date Type Department Care Team (Late st Contact Info) Description 09/09/2024 10:30 AM EST Laboratory Laboratory, [facility] [address] [facility] [place] [address] [place], Laboratory [address] [place] [address] Dizziness; Hypotension, unspecified hypotension type; Anemia, unspecified type Allergies Active Allergy Reactions Criticality Noted Date Comments Onel Inhibitors 10/22/2023 To be avoided due to bilateral renal artery stenosis and worsening kidney function when on previously Prednisone 04/07/2023 documented as of this encounter (statuses as of 09/09/2024) Medications EQ Aspirin Adult Low Dose 81 MG Oral Tablet Delayed ReleaseIndications :Coronary artery disease involving nik[place]ki coronary artery of nik[place]ki heart without angina pectoris Take 1 Tablet [...] D, by GOLD 2017 classification ([facility]) Inhale 1 Puff by mouth in [...] Oral Tablet (Lipitor)Indicatio ns:Coronary artery disease involving nikolski coronary artery of [place]ki heart without angina pectoris,Dyslipide aracely, goal LDL [...] failure 10/21/2023 Coronary artery disease invo lving nikolski heart without angina pectoris 06/08/2023 Hepatic steatosis [...] No 01/01/2024 Does the household have a [facility] source of income? (Household - for ages [...] Description 09/12/2024 7:40 AM EST Office Visit Jelly Velasco [address] [place] [phone] JanuaryMunir MD [address] [id number] 11/17/2024 2:40 PM EST Office Visit Jelly Velasco [address] [place] [phone] Omer Wayne MD [address] [place] [address] 01/11/2025 8:40 AM EDT Office Visit Pulmonary Medicine, [facility] [address] [place] [address] Ronny Virk MD [address] [place] [address] 03/09/2025 2:00 PM EDT Office Visit [facility] [address] [phone] Jeanette Michael CRNP [address] [place] [address] Pending Results Name Type Priority Associated Diagnoses Date /Time CBC WITH WBC DIFFERENTIAL Lab Routine Dizziness Hypotension, unspecified hypotension type Anemia, unspecified type 09/09/2024 10:35 AM EST COMPREHENSIVE METABOLIC PANEL Lab Routine Dizziness Hypotension, unspecified hypotension type 09/09/2024 10:35 AM EST TSH WITH FREE T4 IF INDICATED Lab Routine Dizziness Hypotension, unspecified hypotension type 09/09/2024 10:35 AM EST CBC Lab Routine Dizziness Hypotension, unspecified hypotension type Anemia, unspecified type 09/09/2024 10:35 AM EST DIFFERENTIAL, AUTOMATED Lab Routine Dizziness Hypotension, unspecified hypotension type Anemia, unspecified type 09/09/2024 10:35 AM EST Health Maintenance Due Date Last Done Comments [...] this encounter Medical Devices Implanted Type Area Blasting Machine Operator Device Identifier Shelf Expiration Date Model / Serial / Lot Mesh Plug Prefix Lg [id number] - [id number] Implanted:Qty: 1 on 03/12/2018 by Donovan Raza MD at OR [facility] Right: Groin CR BARD : DAVOL 10/21/2018 [id number] / / [id number] documented as of this encounter Visit Diagnoses Diagnosis Dizziness Dizziness and giddiness Hypotension, unspecified hypotension type Anemia, unspecified type documented in this encounter Care Teams Auto Striper Relationship Specialty Start Date End Date Omer Wayne MD PCP - General 02/19/05 documented as of this encounter
--- OUTSIDE RECORDS SUMMARY | 2024-10-18 06:36 | External Medical Summary ---
Author Name Unknown Address Unknown Organization [id number]:[facility] [place] - [facility] [address] [facility] [address] Laboratory Report Ordering Provider Test Date Status EDWIN DENSON 09/09/2024 10:35:29 Final Observation Date Value Abnormality Reference (Units ) Status WBC, Total 09/09/2024 10:35:29 7.64 4.00-10.80 (K/uL) Final RBC 09/09/2024 10:35:29 2.65 4.50-5.25 (M/uL) Final Hemoglobin 09/09/2024 10:35:29 8.6 Below low normal 14.0-16.8 (g/dL) Final HCT 09/09/2024 10:35:29 26.0 Below low normal 40.0-48.4 (%) Final MCV 09/09/2024 10:35:29 98.1 82.0-99.5 (fL) Final MCH 09/09/2024 10:35:29 32.5 27.0-34.0 (pg) Final MCHC 09/09/2024 10:35:29 33.1 32.0-36.0 (g/dL) Final RDW 09/09/2024 10:35:29 13.2 11.5-15.5 (%) Final Platelets 09/09/2024 10:35:29 297 140-400 (K/uL) Final MPV 09/09/2024 10:35:29 9.9 6.6-11.1 (fL) Final Nucleated erythrocytes/100 leukocytes [Ratio] in Blood by Automated count 09/09/2024 10:35:29 0 <=0 (/100 WBCs) Final Performing Location [facility] [place] - [address] [facility] [address]
--- OUTSIDE RECORDS SUMMARY | 2024-10-18 06:36 | External Medical Summary ---
Author Name Unknown Address Unknown Organization [id number]:[facility] [place] - [facility] [address] [facility] [address] Laboratory Report Ordering Provider Test Date Status EDWIN DENSON 09/09/2024 10:35:29 Final Observation Date Value Abnormality Reference (Units ) Status TSH 09/09/2024 10:35:29 3.84 0.27-4.20 (uIU/mL) Final Performing Location [facility] [place] - [address] [facility] [address]
--- OUTSIDE RECORDS SUMMARY | 2024-10-18 06:36 | External Medical Summary | Summary of Care ---
Author Name Unknown Organization [facility] Address [address] [place] [address] Phone [phone] Care Team Providers Care Cpc Name Role Phone Omer Wayne MD Primary Care Provider +1- [phone] Reason for Visit * Reason Onset Date Comments Durable Medical Equipment 08/19/2024 CPAP Encounter Details Date Type Department Care Team (Late st Contact Info) Description 08/19/2024 Telephone [facility] [address] [place] [address] Jeanette Michael CRNP [address] [place] [address] Durable Medical Equipment (CPAP ) Allergies Active Allergy Reactions Criticality Noted Date Comments Onel Inhibitors 10/22/2023 To be avoided due to bilateral renal artery stenosis and worsening kidney function when on previously Prednisone 04/07/2023 documented as of this encounter (statuses as of 09/09/2024) Medications EQ Aspirin Adult Low Dose 81 MG Oral Tablet Delayed ReleaseIndications :Coronary artery disease involving [place] coronary artery of [place] heart without angina pectoris Take 1 Tablet [...] )Indications:COPD, group D, by GOLD 2017 classification ([facility]) Inhale 1 Puff by mouth in the [...] Oral Tablet (Lipitor)Indicatio ns:Coronary artery disease involving [place] coronary artery of [place] heart without angina pectoris,Dyslipide aracely, goal LDL [...] nt preferenc e/discont inuation) Vitamin D (Ergocalciferol) 84725 UNIT Oral Capsule Take by mouth. Discontin [...] failure 10/21/2023 Coronary artery disease invo lving [place] heart without angina pectoris 06/08/2023 Hepatic steatosis [...] Encounter - Raquel Sanchez LPN - 09/09/2024 1:25 PM EST PT aware he needs an appt. Aware someone will be in touch with him once the appts are released * Telephone Encounter - Raqule Sanchez LPN - 09/09/2024 10:19 AM EST Per [facility] the pt will need either a video or in person ov to get the CPAP * Telephone Encounter - Raquel Sanchez LPN - 09/09/2024 9:51 AM EST Our office spoke with Alejandra at [facility]. She is going to check with Princess [...] regarding this. He would like to use [facility] in [place] for his supplies. Please advise. * Telephone [...] EST DME order for CPAP submitted to [facility]. documented in this encounter Plan of Treatment Upcoming Encounters Date Type Department Care Team (Late st Contact Info) Description 09/12/2024 7:40 AM EST Office [facility] [place] [address] [facility] [address] [place] [phone] JanuaryMunir MD [address] [place] [address] 11/17/2024 2:40 PM EST Office Visit [facility] [place] [address] [facility] [address] [place] [phone] Omer Wayne MD [address] [place], [place] [id number] 01/11/2025 8:40 AM EDT Office Visit Pulmonary Medicine, [facility] [address] [facility] [place] [address] Ronny Virk MD [address] [place] [facility] [place] [address] 03/09/2025 2:00 PM EDT Office Visit Sleep Disorders [facility] [address] [facility] [place] [phone] Jeanette Michael CRNP [address] [facility] [place] [address] Health Maintenance Due Date Last Done Comments [...] this encounter Medical Devices Implanted Type Area Counter Clerk Device Identifier Shelf Expiration Date Model / Serial / Lot Mesh Plug Prefix Lg [id number] - [id number] Implanted:Qty: 1 on 03/12/2018 by Donovan Raza MD at OR [facility] Right: Groin CR BARD : DAVOL 10/21/2018 [id number] / / [id number] documented as of this encounter Care Teams Cpc Relationship Specialty Start Date End Date Omer Wayne MD PCP - General 02/19/05 documented as of this encounter
--- OUTSIDE RECORDS SUMMARY | 2024-10-18 06:36 | External Medical Summary | Summary of Care ---
Author Name Unknown Organization [facility] Address [address] [place] [address] Phone [phone] Care Team Providers Care Petrographer Name Role Phone Omer Wayne MD Primary Care Provider +1- [phone] Reason for Visit * Reason Comments Acute Pt here today due to having dizziness, muscle cramps, and weakness (tired) Encounter Details Date Type Department Care Team (Late st Contact Info) Description 09/09/2024 9:40 AM EST [facility] [place] [address] [phone] Anabela Lopez MD [address] [place] [id number] Dizziness*; Hypotension, unspecified hypotension type; Anemia, unspecified type; Hypertensive heart disease with chronic diastolic congestive heart failure (HCC); Hypertensive left ventricular hypertrophy, without heart failure; Coronary artery disease involving stebbins coronary artery of stebbins heart without angina pectoris; Essential hypertension with goal blood pressure less than 140/90 Allergies Active Allergy Reactions Criticality Noted Date Comments Onel Inhibitors 10/22/2023 To be avoided due to bilateral renal artery stenosis and worsening kidney function when on previously Prednisone 04/07/2023 documented as of this encounter (statuses as of 09/09/2024) Medications EQ Aspirin Adult Low Dose 81 MG Oral Tablet Delayed ReleaseIndications :Coronary artery disease involving stebbins coronary artery of stebbins heart without angina pectoris Take 1 Tablet [...] )Indications:COPD, group D, by GOLD 2017 classification ([facility]) Inhale 1 Puff by mouth in the [...] Oral Tablet (Lipitor)Indicatio ns:Coronary artery disease involving stebbins coronary artery of stebbins heart without angina pectoris,Dyslipide aracely, goal LDL [...] every 6 hours as needed. 01/14/20 24 024 Discontin ued(Patie nt preferenc e/discont inuation) methylPREDNISolone 4 MG Oral Tablet Therapy Pack (Medrol Dosepack) TAKE BY MOUTH DIRECTED ON INSIDE OF PACKAGE 01/18/20 24 Discontin ued(Patie nt preferenc e/discont inuation) Vitamin D (Ergocalciferol) 05130 UNIT Oral Capsule Take by mouth. Discontin ued(Patie nt preferenc e/discont inuation) documented as of this encounter (statuses as of 09/09/2024) Active Problems Problem Noted Date Diagnosed Date COPD, group D, by GOLD 2017 classification 11/29 Overview: Per COPD GOLD Classification Pulmonary emphysema 10/26/2023 Renal artery stenosis 10/22/2023 Hypertensive heart disease w ith chronic diastolic congestive heart failure 10/21/2023 Coronary artery disease invo lving stebbins heart without angina pectoris 06/08/2023 Hepatic steatosis [...] Sign Reading Time Taken Comments Blood Pressure 85/56 09/09/2024 9:59 AM EST Pulse 82 09/09/2024 9:59 AM EST Temperature 36.6 C (97.8 F) 09/09/2024 9:59 AM ES T Respiratory Rate 18 09/09/2024 9:59 AM EST Oxygen Saturation 98% 09/09/2024 9:59 AM EST Inhaled Oxygen Concentration - - Weight 106.1 kg (234 lb) 09/09/2024 9:59 AM EST Height - - Body Mass Index 31.74 08/15/2024 8:12 PM EST documented in this encounter Patient Instructions * Patient Instructions* Anabela Lopez MD - 09/09/2024 10:09 AM EST Stop taking water pill , furosemide Ok to take potassium pill 2 tabs per day for 3 more days And then take 1 potassium pill daily And cut down coreg, carvedilol 12.5 mg 1 tab twice daily Check BP at home 3 times per day Update clinic on Thursday And please review labs ( potassium , cell count ) with provider on Thursday documented in this encounter Progress Notes * Anabela Lopez MD - 09/09/2024 10:10 AM EST Subjective Garret Jimenez is a 59 year old male. Chief Complaint Patient presents with Acute Pt here today due to having dizziness, muscle cramps, and weakness (tired) HPI: Here for recurrent dizziness, generalized weakness, falls, muscle cramps Poor appetite, weight loss over time , Walker use for chronic pain, Known CHF, CAD, taking meds Recent cardiac cath in feb , / with cardio Taking all his meds Recent blood tests showed very low potassium and anemia Denies SOB, CP, leg swelling, palpitation Reviewed meds Will need to stop lasix at this time Hypotension , at home BP was down to 70s Taking coreg 12.5 three tabs bid Will cut down to 1 tab bid Will need to discuss with cardio too Denies fever, urinary sx , diarrhea or GI sx Depression + PMH: Patient Active Problem List Diagnosis Essential hypertension with goal blood pressure less than 140/90 Dyslipidemia, goal LDL below 70 Plaque psoriasis Anemia Elevated transaminase level Osteoarthritis of hand, left Tobacco dependence Grade I diastolic dysfunction Hypertensive left ventricular hypertrophy, without heart failure History of acute renal failure Lymphedema Hepatic steatosis Coronary artery disease involving stebbins heart without angina pectoris Hypertensive heart disease with chronic diastolic congestive heart failure (HCC) Renal artery stenosis (HCC) Pulmonary emphysema (HCC) COPD, group D, by GOLD 2017 classification ([facility]) Current Outpatient Medications Medication Sig Dispense Refill traMADol HCl 50 MG Oral Tablet (Ultram) Take 1 Tablet by mouth 2 times a day as needed for Pain, Severe. 30 Tablet 0 Carvedilol 12.5 MG Oral Tablet (Coreg) 3 tabs by mouth twice per day 540 Tablet 3 Furosemide 20 MG Oral Tablet (Lasix) Take 1 Tablet by mouth in the morning. 90 Tablet 3 Folic Acid 1 MG Oral Tablet Take 1 Tablet by mouth in the morning. 90 Tablet 3 Sertraline HCl 50 MG Oral Tablet (Zoloft) Take 1 Tablet by mouth in the morning. 90 Tablet 3 Trelegy Ellipta 200-62.5-25 MCG/ACT Aerosol Powder Breath Activated (Oxvfomtnqyu-Bbgpuqmxujuf-Ekggkqsykq) Inhale 1 Puff by mouth in the morning. 180 Blister Dosing Unit 3 Ventolin HFA 108 (90 Base) MCG/ACT Inhalation Aerosol Solution Inhale 2 Puffs by mouth every 4 hours as needed for Dyspnea or Wheezing. 18 g 3 Atorvastatin Calcium 80 MG Oral Tablet (Lipitor) Take 1 Tablet by mouth in the morning. 90 Tablet 3 Albuterol Sulfate 0.63 MG/3ML Inhalation Nebulization Solution (Accuneb) Inhale 1 Vial via nebulizer every 6 hours as needed for Wheezing or Shortness of Breath. 360 mL 0 Potassium Chloride Alba ER 20 MEQ Oral Tablet Extended Release Take 1 Tablet by mouth in the morning and 1 Tablet before bedtime. 180 Tablet 1 EQ Aspirin Adult Low Dose 81 MG Oral Tablet Delayed Release Take 1 Tablet by mouth daily. In the morning. (Patient not taking: Reported on 09/09/2024) 90 Tablet 3 Baclofen 10 MG Oral Tablet (Lioresal) Take 1 Tablet by mouth in the morning and 1 Tablet at noon and 1 Tablet before bedtime. (Patient not taking: Reported on 09/09/2024) 90 Tablet 1 Azithromycin 250 MG Oral Tablet (Zithromax Z-Oswaldo) Please take 500 mg by mouth on day one, followed by 250 mg by mouth for four days. (Patient not taking: Reported on 09/09/2024) 6 Tablet 0 No current facility-administered medications for this visit. Past Medical History: Diagnosis Date Dyslipidemia, goal LDL below 100 HTN, goal below 140/90 Rhinitis, chronic Past Surgical History: Procedure Laterality Date EGD, FLEXIBLE, DIAGNOSTIC 07/03/2021 reflux / ESOPHAGOGASTRODUODENOSCOPY (EGD), FLEXIBLE, TRANSORAL, DIAGNOSTIC performed by Martha Patterson MD at ENDOSCOPY [facility] FOOT/TOE SURGERY NEC Left 09/21/1993 Foot/Toes Surgery Proc Unlisted INFORMATION 09/21/2001 [id number] Dr Sagastume KNEE ARTHROSCOPY, DIAGNOSTIC Left 09/21/1988 Knee Scope,Diagnostic REPAIR INITIAL INGUINAL HERNIA REDUCIBLE AGE 5 OR MORE Right 03/12/2018 REPAIR INITIAL INGUINAL HERNIA REDUCIBLE AGE 5 OR MORE performed by Donovan Raza MD at OR [facility] Review of patient's allergies indicates: Allergen Reactions Onel Inhibitors To be avoided due to bilateral renal artery stenosis and worsening kidney function when on previously Prednisone Family History Problem Relation Name Age of Onset Diabetes Father Heart Disorder Grandfather (Maternal) Cancer None Hypertension None Mental Disorder None Stroke None Family Status Relation Status Mo Alive Fa Sis Alive Sis Alive MGFA (Not Specified) NONE (Not Specified) NONE (Not Specified) NONE (Not Specified) NONE (Not Specified) HBRO Alive Social History Socioeconomic History Marital status: Single Spouse name: Not on file Number of children: Not on file Years of education: Not on file Highest education level: Not on file Occupational History Not on file Tobacco Use Smoking status: Former Current packs/day: 1.50 Average packs/day: 1.5 packs/day for 42.0 years (63.0 ttl pk-yrs) Types: Cigarettes Passive exposure: Current Smokeless tobacco: Never Tobacco comments: began at age 15 Vaping Use Vaping status: Never Used Substance and Sexual Activity Alcohol use: Yes Comment: one day a week on weekends Drug use: No Comment: caffeine- couple cups each am Sexual activity: Yes Other Topics Concern Not on file Social History Narrative job: [employer] employer: [employer] education: 12 service: no hobbies/interests: Used to do [employer] co transfusions: no exercise: work diet: no mosque/denominational: mohini marital status: single children: 0 gc: 0 ggc: 0 pets: no exposure to violence/threats/abuse: no things to improve: no Social Needs Financial Resource Strain: Low Risk (01/01/2024) Financial Resource Strain Do you have any trouble paying for your medications, or do you think you might in the future? (Adult - for ages 18 years and over): No Does your family have trouble paying for medicine? (Household - for ages 0-17 years): Not on file Food Insecurity: No Food Insecurity (01/01/2024) Food Insecurity Do you need food for this week? (Adult - for ages 18 years and over): No Are you able to get enough food for your family? (Household - for ages 0-17 years): Not on file Does your family need food this week? (Household - for ages 0-17 years): Not on file Do you always have enough food for your family? (Household - for ages 0-17 years): Not on file Transportation Needs: No Transportation Needs (01/01/2024) Transportation Needs Do you have trouble getting a ride to medical visits or work? (Adult - for ages 18 years and over):Never True Does your family have a hard time getting a ride to doctors visits? (Household - for ages 0-17 years): Not on file Has lack of transportation kept you from medical appointments, meetings, work, or from getting things needed for daily living? Check all that apply. (Adult - for ages 18 years and over): Not on file Do you (or your family) have trouble finding or paying for a ride (transportation)? (Household - for ages 0-17 years): Not on file Social Connections: Socially Integrated (01/01/2024) Social Connections How often do you feel lonely or isolated from those around you? (Adult - for ages 18 years and over): Never Housing Stability: Low Risk (01/01/2024) Housing Stability Do you currently live in a half-way or have no steady place to sleep at night? (Adult - for ages 18 years and over): No Do you think you are at risk of becoming homeless? (Adult - for ages 18 years and over): No Does your family worry about paying for your home or becoming homeless? (Household - for ages 0-17 years): Not on file Are you homeless or worried that you might be in the future? (Adult - for ages 18 years and over): Not on file Are you (or your family) homeless or worried that you might be in the future? (Household - for ages0-17 years): Not on file Review of Systems Constitutional: Positive for activity change, appetite change, fatigue and unexpected weight change. Negative for chills, diaphoresis and fever. Respiratory: Negative for cough, chest tightness, shortness of breath and wheezing. Cardiovascular: Negative for chest pain, palpitations and leg swelling. Gastrointestinal: Negative for abdominal distention, abdominal pain, blood in stool, constipation, diarrhea, nausea and vomiting. Endocrine: Negative. Genitourinary: Negative for difficulty urinating, dysuria and hematuria. Musculoskeletal: Positive for arthralgias, gait problem and myalgias. Neurological: Positive for dizziness, tremors, weakness and light-headedness. Negative for seizures, syncope, speech difficulty and headaches. Psychiatric/Behavioral: Positive for dysphoric mood (depression). Negative for agitation and behavioral problems. Objective BP 85/56 | Pulse 82 | Temp 97.8 F (36.6 C) (Infrared ) | Resp 18 | Wt 234 lb (106.1 kg) | SpO2 98% | BMI 31.74 kg/m | BSA 2.32 m Physical Exam Constitutional: General: He is not in acute distress. Appearance: Normal appearance. He is obese. He is not ill-appearing, toxic- appearing or diaphoretic. HENT: Head: Normocephalic and atraumatic. Nose: Nose normal. Eyes: Extraocular Movements: Extraocular movements intact. Cardiovascular: Rate and Rhythm: Normal rate and regular rhythm. Comments: Faint heart sounds Pulmonary: Effort: Pulmonary effort is normal. No respiratory distress. Breath sounds: Normal breath sounds. No stridor. No wheezing, rhonchi or rales. Chest: Chest wall: No tenderness. Musculoskeletal: Right lower leg: No edema. Left lower leg: No edema. Neurological: General: No focal deficit present. Mental Status: He is alert and oriented to person, place, and time. Cranial Nerves: No cranial nerve deficit. Sensory: No sensory deficit. Motor: Weakness (general) present. Psychiatric: Behavior: Behavior normal. Comments: Depression ASSESSMENT/PLAN: Dizziness (Primary) - CBC WITH WBC DIFFERENTIAL; Future; Expected date: 09/09/2024 - COMPREHENSIVE METABOLIC PANEL; Future; Expected date: 09/09/2024 - TSH WITH FREE T4 IF INDICATED; Future; Expected date: 09/09/2024 Hypotension, unspecified hypotension type - CBC WITH WBC DIFFERENTIAL; Future; Expected date: 09/09/2024 - COMPREHENSIVE METABOLIC PANEL; Future; Expected date: 09/09/2024 - TSH WITH FREE T4 IF INDICATED; Future; Expected date: 09/09/2024 Anemia, unspecified type - CBC WITH WBC DIFFERENTIAL; Future; Expected date: 09/09/2024 Hypertensive heart disease with chronic diastolic congestive heart failure (HCC) Hypertensive left ventricular hypertrophy, without heart failure Coronary artery disease involving stebbins coronary artery of stebbins heart without angina pectoris Essential hypertension with goal blood pressure less than 140/90 Follow Up: Return in about 3 days (around 09/12/2024) for Clinic Visit, Labs Today. | For: Clinic Visit, Labs Today | Check-out note: Schedule with cardiology Patient Instructions Stop taking water pill , furosemide Ok to take potassium pill 2 tabs per day for 3 more days And then take 1 potassium pill daily And cut down coreg, carvedilol 12.5 mg 1 tab twice daily Check BP at home 3 times per day Update clinic on Thursday And please review labs ( potassium , cell count ) with provider on Thursday If sx gets worse, should go to ER Pt declined today Encouraged oral intake, food, fluid Spent 40 min Anabela Lopez MD documented in this encounter Nursing Notes * Aleah Gerardo LPN - 09/09/2024 9:56 AM EST Chief Complaint Patient presents with Acute Pt here today due to having dizziness, muscle cramps, and weakness (tired) documented in this encounter Plan of Treatment Upcoming Encounters Date Type Department Care Team (Late st Contact Info) Description 09/12/2024 7:40 AM EST [facility] [address] [phone] Munir Dickens MD [address] [address] 11/17/2024 2:40 PM EST [facility] [address] [phone] Omer Wayne MD [address] [address] 01/11/2025 8:40 AM EDT Office Visit Pulmonary Medicine, [facility] [address] [address] Ronny Virk MD [address] [address] 03/09/2025 2:00 PM EDT Office Visit [facility] [address] [phone] Jeanette Michael CRNP [address] [place] [address] Pending Results Name Type Priority Associated Diagnoses Date /Time CBC WITH WBC DIFFERENTIAL Lab Routine Dizziness Hypotension, unspecified hypotension type Anemia, unspecified type 09/09/2024 10:35 AM EST COMPREHENSIVE METABOLIC PANEL Lab Routine Dizziness Hypotension, unspecified hypotension type 09/09/2024 10:35 AM EST TSH WITH FREE T4 IF INDICATED Lab Routine Dizziness Hypotension, unspecified hypotension type 09/09/2024 10:35 AM EST Scheduled Orders Name Type Priority Associated Diagnoses Orde r Schedule CBC WITH WBC DIFFERENTIAL Lab Routine Dizziness Hypotension, unspecified hypotension type Anemia, unspecified type Expected: 09/09/2024 (Approximate), Expires: 09/09/2025 COMPREHENSIVE METABOLIC PANEL Lab Routine Dizziness Hypotension, unspecified hypotension type Expected: 09/09/2024 (Approximate), Expires: 09/09/2025 TSH WITH FREE T4 IF INDICATED Lab Routine Dizziness Hypotension, unspecified hypotension type Expected: 09/09/2024 (Approximate), Expires: 09/09/2025 Health Maintenance Due Date Last Done Comments [...] Albumin/Creatinine Ratio 10/28/2026 10/28/2023, 06/02/2023 Diabetes Screening 09/01/2027 09/01/2024, 0 04/28/2024, 10/01/2023, [...] this encounter Medical Devices Implanted Type Area Statistical Modeler Device Identifier Shelf Expiration Date Model / Serial / Lot Mesh Plug Prefix [id number] [id number] - [id number] Implanted:Qty: 1 on 03/12/2018 by Donovan Raza MD at OR [facility] Right: Groin CR BARD : DAVOL 10/21/2018 [id number] / / [id number] documented as of this encounter Visit Diagnoses Diagnosis Dizziness- Primary Dizziness and giddiness Hypotension, unspecified hypotension type Anemia, unspecified type Hypertensive heart disease with chronic diastolic congestive heart failure (HCC) Hypertensive left ventricular hypertrophy, without heart failure Coronary artery disease involving stebbins coronary artery of stebbins heart without angina pectoris Essential hypertension with goal blood pressure less than 140/90 documented in this encounter Care Teams Petrographer Relationship Specialty Start Date End Date Omer Wayne MD PCP - General 02/19/05 documented as of this encounter"
--- OUTSIDE RECORDS SUMMARY | 2024-10-18 06:36 | External Medical Summary | Summary of Care ---
Author Name Unknown Organization [facility] Address [address] [place] [address] Phone [phone] Care Team Providers Care Cleaning Specialist Name Role Phone Omer Wayne MD Primary Care Provider +1- [phone] Encounter Details Date Type Department Care Team (Late st Contact Info) Description 09/12/2024 Telephone [facility] [address] [phone] Omer Wayne MD 226 [facility] [place] [phone] Allergies Active Allergy Reactions Criticality Noted Date Comments Onel Inhibitors 10/22/2023 To be avoided due to bilateral renal artery stenosis and worsening kidney function when on previously Prednisone 04/07/2023 documented as of this encounter (statuses as of 09/15/2024) Medications EQ Aspirin Adult Low Dose 81 MG Oral Tablet Delayed ReleaseIndications :Coronary artery disease involving little shell tribe coronary artery of little shell tribe heart without angina pectoris Take 1 [...] )Indications:COPD, group D, by GOLD 2017 classification ([facility]) Inhale 1 Puff by mouth in [...] Oral Tablet (Lipitor)Indicatio ns:Coronary artery disease involving little shell tribe coronary artery of little [place] heart without angina pectoris,Dyslipide aracely, goal [...] failure 10/21/2023 Coronary artery disease invo lving little shell tribe heart without angina pectoris 06/08/2023 Hepatic [...] encounter Miscellaneous Notes * Telephone Encounter - Anabela Lopez MD [...] 2:40 PM EST Office Visit Family Practice, [facility] [address] [phone] Omer Wayne MD [address] [address] 01/11/2025 8:40 AM EDT Office Visit Pulmonary Medicine, [facility] [address] [facility] [address] [place] [address] Ronny Virk MD [address] [place] [address] 03/09/2025 2:00 PM EDT Office Visit [facility] [address] [facility] [address] [place] [phone] Jenaette Michael CRNP [address] [facility] [address] [place] [address] Health Maintenance Due Date Last Done Comments [...] this encounter Medical Devices Implanted Type Area Straight Cutter Machine Device Identifier Shelf Expiration Date Model / Serial / Lot Mesh Plug Prefix Lg [id number] - [id number] Implanted:Qty: 1 on 03/12/2018 by Donovan Raza MD at OR [facility] Right: Groin CR BARD : DAVOL 10/21/2018 [id number] / / [id number] documented as of this encounter Care Teams Cleaning Specialist Relationship Specialty Start Date End Date Omer Wayne MD PCP - General 02/19/05 documented as of this encounter
--- OUTSIDE RECORDS SUMMARY | 2024-10-18 06:36 | External Medical Summary | Summary of Care ---
Author Name Unknown Organization [facility] Address [address] [place] [address] Phone [phone] Care Team Providers Care Tire Retreader Name Role Phone Omer Wayne MD Primary Care Provider +1- [phone] Encounter Details Date Type Department Care Team (Late st Contact Info) Description 09/12/2024 Telephone [facility] [address] [phone] Omer Wayne MD [address] [facility] [place] [id number] Allergies Active Allergy Reactions Criticality Noted Date Comments Onel Inhibitors 10/22/2023 To be avoided due to bilateral renal artery stenosis and worsening kidney function when on previously Prednisone 04/07/2023 documented as of this encounter (statuses as of 09/15/2024) Medications EQ Aspirin Adult Low Dose 81 MG Oral Tablet Delayed ReleaseIndications :Coronary artery disease involving [place] coronary artery of [place] heart without angina pectoris Take 1 Tablet [...] )Indications:COPD, group D, by GOLD 2017 classification ([facility]) Inhale 1 Puff by mouth [...] Oral Tablet (Lipitor)Indicatio ns:Coronary artery disease involving [place] coronary artery of [place] heart without angina pectoris,Dyslipide aracely, goal LDL [...] failure 10/21/2023 Coronary artery disease invo lving [place] heart without angina pectoris 06/08/2023 Hepatic steatosis [...] Family Practice, [facility] [address] [phone] Omer Wayne MD [address] [address] 01/11/2025 8:40 AM EDT Office Visit Pulmonary Medicine, [facility] [address] [facility] [address] [place] [address] Ronny Virk MD [address] [place] [address] 03/09/2025 2:00 PM EDT Office Visit [facility] [address] [facility] [address] [place] [phone] Jeanette Michael CRNP [address] [facility] [address] [place] [address] Health Maintenance Due Date Last Done Comments [...] this encounter Medical Devices Implanted Type Area Benzol Still Operator Device Identifier Shelf Expiration Date Model / Serial / Lot Mesh Plug Prefix [id number] [id number] - [id number] Implanted:Qty: 1 on 03/12/2018 by Donovan Raza MD at OR [facility] Right: Groin CR BARD : DAVOL 10/21/2018 [id number] / / [id number] documented as of this encounter Care Teams Tire Retreader Relationship Specialty Start Date End Date Omer Wayne MD PCP - General 02/19/05 documented as of this encounter
--- OUTSIDE RECORDS SUMMARY | 2024-10-18 06:36 | External Medical Summary | Summary of Care ---
Author Name Unknown Organization [facility] Address [address] [place] [address] Phone [phone] Care Team Providers Care Nurse Discharge Planner Name Role Phone Sirisha De La Rosa MD Primary Care Provider +1- [phone] Reason for Visit * Reason Onset Date Comments Test Results 09/02/2024 Encounter Details Date Type Department Care Team (Late st Contact Info) Description 09/02/2024 Telephone [facility] Marilia Astorga [address] [phone] Sirisha De La Rosa MD [address] [facility] [place] [address] Test Results Allergies Active Allergy Reactions Criticality Noted Date Comments Onel Inhibitors 10/22/2023 To be avoided due to bilateral renal artery stenosis and worsening kidney function when on previously Prednisone 04/07/2023 documented as of this encounter (statuses as of 09/23/2024) Medications EQ Aspirin Adult Low Dose 81 MG Oral Tablet Delayed ReleaseIndications :Coronary artery disease involving cherokee coronary artery of cherokee heart without angina pectoris Take 1 Tablet [...] Oral Tablet (Lipitor)Indicatio ns:Coronary artery disease involving cherokee coronary artery of cherokee heart without angina pectoris,Dyslipide aracely, goal LDL [...] nt preferenc e/discont inuation) Vitamin D (Ergocalciferol) 87448 UNIT Oral Capsule Take by mouth. Discontin ued(Patie nt preferenc e/discont inuation) Potassium Chloride Alba ER 20 MEQ Oral Tablet Extended ReleaseIndications :Hypertensive left ventricular hypertrophy, without heart failure Take 1 Tablet by mouth in the morning. 90 Tablet 3 06/14/20 24 Discontin ued(Medic ation/Dos e Changed) documented as of this encounter (statuses as of 09/23/2024) Active Problems Problem Noted Date Diagnosed Date COPD, group D, by GOLD 2017 classification 11/29 Overview: Per COPD GOLD Classification Pulmonary emphysema 10/26/2023 Renal artery stenosis 10/22/2023 Hypertensive heart disease w ith chronic diastolic congestive heart failure 10/21/2023 Coronary artery disease invo lving cherokee heart without angina pectoris 06/08/2023 Hepatic steatosis [...] as of this encounter (statuses as of 09/23/2024) Resolved Problems Problem Noted Date Diagnosed Date [...] as of this encounter (statuses as of 09/23/2024) Social History Tobacco Use Types Packs/Day Years [...] encounter Miscellaneous Notes * Telephone Encounter - Joyce Martinez OSA [...] stool * Telephone Encounter - Sirisha De aL Rosa MD - 09/02/2024 11:01 AM EST [...] Description 11/17/2024 2:40 PM EST Office Visit Jelly Velasco [address] [phone] Sirisha De La Rosa MD [address] [address] 01/11/2025 8:40 AM EDT Office Visit Pulmonary Medicine, [facility] 132 [facility] [place] [address] Ronny Virk MD [address] [place] [address] 03/09/2025 2:00 PM EDT Office Visit [facility] Disorders Ctr [facility] 132 [facility] [place] [phone] Jeanette Michael CRNP 132 [facility] [place] [address] Scheduled Orders Name Type Priority Associated Diagnoses [...] this encounter Medical Devices Implanted Type Area Start Up Specialist Device Identifier Shelf Expiration Date Model / Serial / Lot Mesh Plug Prefix Lg [id number] - [id number] Implanted:Qty: 1 on 03/12/2018 by Donovan Raza MD at OR [facility] Right: Groin CR BARD : DAVOL 10/21/2018 [id number] / / [id number] documented as of this encounter Visit Diagnoses Diagnosis Hypokalemia- Primary Hypopotassemia Elevated glucose Other abnormal glucose Anemia, unspecified type documented in this encounter Care Teams Nurse Discharge Planner Relationship Specialty Start Date End Date Sirisha De La Rosa MD PCP - General 02/19/05 documented as of this encounter
--- OUTSIDE RECORDS SUMMARY | 2024-10-18 06:37 | External Medical Summary | Summary of Care ---
Author Name Unknown Organization [facility] Address [address] [place] [address] Phone [phone] Care Team Providers Care Golf Club Head Inspector And Adjuster Name Role Phone Omer Wayne MD Primary Care Provider +1- [phone] Reason for Visit * Reason Onset Date Comments Durable Medical Equipment 08/19/2024 CPAP Encounter Details Date Type Department Care Team (Late st Contact Info) Description 08/19/2024 Telephone Sleep Disorders Ctr [facility] [address] [place] [address] [...] Tablet Delayed ReleaseIndications :Coronary artery disease involving [place] coronary artery of spirit lake heart without angina pectoris Take 1 Tablet [...] OF PACKAGE 01/18/20 Active Vitamin D (Ergocalciferol) 84965 UNIT Oral Capsule Take by mouth. Activ [...] D, by GOLD 2017 classification ([facility]) Inhale 1 Puff by mouth [...] Oral Tablet (Lipitor)Indicatio ns:Coronary artery disease involving [place] coronary artery of [place] heart without angina pectoris,Dyslipide aracely, goal LDL [...] failure 10/21/2023 Coronary artery disease invo lving [place] lake heart without angina pectoris 06/08/2023 Hepatic steatosis [...] encounter Miscellaneous Notes * Telephone Encounter - Renee Cruz OSA [...] regarding this. He would like to use [facility] in [place] for his supplies. Please advise. * Telephone [...] order?" * Telephone Encounter - Renee Cruz SAROJ - 08/19/2024 9:42 AM EST DME order for CPAP submitted to [employer]. documented in this encounter Plan of Treatment Upcoming Encounters Date Type Department Care Team (Late st Contact Info) Description 09/09/2024 9:40 AM EST [facility] [address] [phone] Anabela Lopez MD [address] [address] 12/19/2024 11:40 AM EDT Office Visit [facility] Jelly Adan [address] [phone] Omer Wayne MD [address] [address] 01/11/2025 8:40 AM EDT Office Visit Pulmonary Medicine, [facility] [address] [place] [address] Ronny Virk MD [address] [facility] [address] 03/09/2025 2:00 PM EDT Office Visit [facility] Disorders C[facility] [address] [place] [phone] Jeanette Michael CRNP [address] [place] [address] Health Maintenance Due Date Last Done Comments [...] this encounter Medical Devices Implanted Type Area Valet Parker Device Identifier Shelf Expiration Date Model / Serial / Lot Mesh Plug Prefix Lg [id number] - [id number] Implanted:Qty: 1 on 03/12/2018 by Donovan Raza MD at OR [facility] Right: Groin CR BARD : DAVOL 10/21/2018 [id number] / / [id number] documented as of this encounter Care Teams Golf Club Head Inspector And Adjuster Relationship Specialty Start Date End Date Omer Wayne MD PCP - General 02/19/05 documented as of this encounter
--- OUTSIDE RECORDS SUMMARY | 2024-10-18 06:37 | External Medical Summary | Summary of Care ---
Author Name Unknown Organization [facility] Address [address] [place] [address] Phone [phone] Care Team Providers Care Hide Paster Name Role Phone Omer Wayne MD Primary Care Provider +1- [phone] Reason for Visit * Reason Onset Date Comments Durable Medical Equipment 08/19/2024 CPAP Encounter Details Date Type Department Care Team (Late st Contact Info) Description 08/19/2024 Telephone Sleep Disorders Ctr [facility] [address] [place] [address] Jeanette Michael CRNP [address] [place] [address] Durable Medical Equipment (CPAP ) Allergies Active Allergy Reactions Criticality Noted Date Comments Onel Inhibitors 10/22/2023 To be avoided due to bilateral renal artery stenosis and worsening kidney function when on previously Prednisone 04/07/2023 documented as of this encounter (statuses as of 09/07/2024) Medications EQ Aspirin Adult Low Dose 81 MG Oral Tablet Delayed ReleaseIndications :Coronary artery disease involving yurok coronary artery of yurok heart without angina pectoris Take 1 Tablet [...] needed for Pain, Severe. 30 Tablet 01/01/20 Active Additional Information Patient not taking.Reported on 07/05/2024 oxyCODONE HCl 5 MG Oral Tablet (Oxy IR) Take 1 Tablet by mouth every 6 hours as needed. 01/14/20 Active methylPREDNISolone 4 MG Oral Tablet Therapy Pack (Medrol Dosepack) TAKE BY MOUTH DIRECTED ON INSIDE OF PACKAGE 01/18/20 Active Vitamin D (Ergocalciferol) 23416 UNIT Oral Capsule Take by mouth. Activ [...] morning. 90 Tablet 3 01/21/20 24 Active Potassium Chloride Alba ER 20 MEQ Oral Tablet Extended ReleaseIndications :Hypertensive left ventricular hypertrophy, without heart failure Take 1 Tablet by mouth in the morning. 90 Tablet 3 06/14/20 24 Active Sertraline HCl 50 MG Oral Tablet (Zoloft) Take 1 Tablet by mouth in the morning. 90 Tablet 3 06/14/20 24 Active Trelegy Ellipta 200-62.5-25 MCG/ACT Aerosol Powder Breath Activated (Fluticasone-Umecl idinium-Vilanterol )Indications:COPD, group D, by GOLD 2017 classification ([facility]) Inhale 1 Puff by mouth in [...] Oral Tablet (Lipitor)Indicatio ns:Coronary artery disease involving yurok coronary artery of yurok heart without angina pectoris,Dyslipide aracely, goal LDL below 70 Take 1 Tablet by mouth in the morning. 90 Tablet 3 07/11/20 24 Active Albuterol Sulfate 0.63 MG/3ML Inhalation Nebulization Solution (Accuneb) Inhale 1 Vial via nebulizer every 6 hours as needed for Wheezing or Shortness of Breath. 360 mL 08/01/20 24 024 Discontin ued(Refil l) documented as of this encounter (statuses as of 09/07/2024) Active Problems Problem Noted Date Diagnosed Date COPD, group D, by GOLD 2017 classification 11/29 Overview: Per COPD GOLD Classification Pulmonary emphysema 10/26/2023 Renal artery stenosis 10/22/2023 Hypertensive heart disease w ith chronic diastolic congestive heart failure 10/21/2023 Coronary artery disease invo lving yurok heart without angina pectoris 06/08/2023 Hepatic steatosis [...] as of this encounter (statuses as of 09/07/2024) Resolved Problems Problem Noted Date Diagnosed Date [...] as of this encounter (statuses as of 09/07/2024) Social History Tobacco Use Types Packs/Day Years [...] encounter Miscellaneous Notes * Telephone Encounter - Elle Ferguson LPN - 09/07/2024 2:37 PM EST Note added to TH order. * Telephone Encounter - Yancy Olivares OSA - 09/07/2024 1:33 PM EST Patient called to check on CPAP supplies, as he hasn't heard back regarding this. He would like to use [facility] in [place] for his supplies. Please advise. * Telephone [...] EST DME order for CPAP submitted to [employer]. documented in this encounter Plan of Treatment Upcoming Encounters Date Type Department Care Team (Late st Contact Info) Description 12/19/2024 11:40 AM EDT Office Visit [facility], [facility] [address] [facility] [phone] Omer Wayne MD [facility] [place] [address] 01/11/2025 8:40 AM EDT Office Visit Pulmonary Medicine, [facility] [address] [facility] [place] [address] Ronny Virk MD [address] [facility] [place] [address] 03/09/2025 2:00 PM EDT Office Visit Sleep Disorders Ctr [facility] [address] [facility] [place] [phone] Jeanette Michael CRNP 132 [facility] [place] [address] Health Maintenance Due Date Last Done Comments [...] this encounter Medical Devices Implanted Type Area Spray Stainer Device Identifier Shelf Expiration Date Model / Serial / Lot Mesh Plug Prefix Lg [id number] - [id number] Implanted:Qty: 1 on 03/12/2018 by Donovan Raza MD at OR [facility] Right: Groin CR BARD : DAVOL 10/21/2018 [id number] / / [id number] documented as of this encounter Care Teams Hide Paster Relationship Specialty Start Date End Date Omer Wayne MD [address] [place] [address] PCP - General 02/19/05 documented as of this encounter
--- OUTSIDE RECORDS SUMMARY | 2024-10-18 06:37 | External Medical Summary | Summary of Care ---
Author Name Unknown Organization [facility] Address [address] [place] [address] Phone [phone] Care Team Providers Care Bee Robber Name Role Phone Sirisha De La Rosa MD Primary Care Provider +1- [phone] Reason for Visit * Reason Onset Date Comments Test Results 09/02/2024 Encounter Details Date Type Department Care Team (Late st Contact Info) Description 09/02/[address] [facility] Marilia Astorga [address] [phone] Sirisha De La Rosa MD [address] [facility] [place] [address] Test Results Allergies Active Allergy Reactions Criticality Noted Date Comments Onel Inhibitors 10/22/2023 To be avoided due to bilateral renal artery stenosis and worsening kidney function when on previously Prednisone 04/07/2023 documented as of this encounter (statuses as of 09/07/2024) Medications EQ Aspirin Adult Low Dose 81 MG Oral Tablet Delayed ReleaseIndications :Coronary artery disease involving salt river coronary artery of salt river heart without angina pectoris Take 1 Tablet [...] OF PACKAGE 01/18/20 Active Vitamin D (Ergocalciferol) 27724 UNIT Oral Capsule Take by mouth. Activ [...] Oral Tablet (Lipitor)Indicatio ns:Coronary artery disease involving [place] river coronary artery of salt river heart without angina pectoris,Dyslipide aracely, goal LDL [...] failure 10/21/2023 Coronary artery disease invo lving [place] river heart without angina pectoris 06/08/2023 Hepatic steatosis [...] encounter Miscellaneous Notes * Addendum Note - Sirisha De La [...] EST [facility] [phone] Anabela Lopez MD [facility] [place] [address] 12/19/2024 11:40 AM EDT [facility] [place] [address] Sirisha De La Rosa MD [address] [place] [address] 01/11/2025 8:40 AM EDT Office Visit Pulmonary Medicine, [facility] 132 [facility] [place] [address] Ronny Virk MD [address] [place] [address] 03/09/2025 2:00 PM EDT Office Visit Sleep Disorders [facility] 132 [facility] [place] [phone] Jeanette Michael CRNP 132 [facility] [place] [address] Scheduled Orders Name Type Priority Associated Diagnoses [...] this encounter Medical Devices Implanted Type Area Color Matcher Device Identifier Shelf Expiration Date Model / Serial / Lot Mesh Plug Prefix Lg [id number] - [id number] Implanted:Qty: 1 on 03/12/2018 by Donovan Raza MD at OR [facility] Right: Groin CR BARD : DAVOL 10/21/2018 [id number] / / [id number] documented as of this encounter Visit Diagnoses Diagnosis Hypokalemia- Primary Hypopotassemia Elevated glucose Other abnormal glucose Anemia, unspecified type documented in this encounter Care Teams Bee Robber Relationship Specialty Start Date End Date Sirisha De La Rosa MD PCP - General 02/19/05 documented as of this encounter
--- OUTSIDE RECORDS SUMMARY | 2024-10-18 06:37 | External Medical Summary | Summary of Care ---
Author Name Unknown Organization [facility] Address [address] [place] [address] Phone [phone] Care Team Providers Care Layout Inspector Name Role Phone Omer Wayne MD Primary Care Provider +1- [phone] Reason for Visit * Reason Onset Date Comments Durable Medical Equipment 08/19/2024 CPAP Encounter Details Date Type Department Care Team (Late st Contact Info) Description 08/19/2024 Telephone Sleep Disorders Ctr [facility] [address] [place] [address] Jeanette [...] Tablet Delayed ReleaseIndications :Coronary artery disease involving chemehuevi coronary artery of chemehuevi heart without angina pectoris Take 1 Tablet [...] OF PACKAGE 01/18/20 Active Vitamin D (Ergocalciferol) 03113 UNIT Oral Capsule Take by mouth. Activ [...] D, by GOLD 2017 classification ([facility]) Inhale 1 Puff by mouth in the [...] Oral Tablet (Lipitor)Indicatio ns:Coronary artery disease involving chemehuevi coronary artery of chemehuevi heart without angina pectoris,Dyslipide aracely, goal LDL [...] failure 10/21/2023 Coronary artery disease invo lving chemehuevi heart without angina pectoris 06/08/2023 Hepatic steatosis [...] encounter Miscellaneous Notes * Telephone Encounter - Yancy Olivares OSA - 09/07/2024 1:33 PM EST Patient called to check on CPAP supplies, as he hasn't heard back regarding this. He would like to use [facility] in [place] for his supplies. Please advise. * Telephone [...] EST DME order for CPAP submitted to [employer]. documented in this encounter Plan of Treatment Upcoming Encounters Date Type Department Care Team (Late st Contact Info) Description 12/19/2024 11:40 AM EDT [facility] [address] [phone] Omer Wayne MD [address] [place] [address] 01/11/2025 8:40 AM EDT Office Visit Pulmonary Medicine, [facility] [address] [facility] [place] [address] Ronny Virk MD [address] [place] [facility] [place] [address] 03/09/2025 2:00 PM EDT Office Visit [facility] [address] [facility] [place] [phone] Jeanette Michael CRNP 132 [facility] [place] [address] Health Maintenance Due Date Last Done Comments [...] this encounter Medical Devices Implanted Type Area Geology Teacher Device Identifier Shelf Expiration Date Model / Serial / Lot Mesh Plug Prefix Lg [id number] - [id number] Implanted:Qty: 1 on 03/12/2018 by Donovan Raza MD at OR [facility] Right: Groin CR BARD : DAVOL 10/21/2018 [id number] / / [id number] documented as of this encounter Care Teams Layout Inspector Relationship Specialty Start Date End Date Omer Wayne MD [address] [place] [address] PCP - General 02/19/05 documented as of this encounter
--- OUTSIDE RECORDS SUMMARY | 2024-10-18 06:37 | External Medical Summary | Summary of Care ---
Author Name Unknown Organization [facility] Address [address] [place] [address] Phone [phone] Care Team Providers Care Database Technician Name Role Phone Omer Wayne MD Primary Care Provider +1- [phone] Reason for Visit * Reason Onset Date Comments Test Results 09/02/2024 Encounter Details Date Type Department Care Team (Late st Contact Info) Description 09/02/2024 Telephone [facility] Marilia [address]org[address] [phone] Omer Wayne MD [address] [facility] [place] [address] Test Results Allergies Active Allergy Reactions Criticality Noted Date Comments Onel Inhibitors 10/22/2023 To be avoided due to bilateral renal artery stenosis and worsening kidney function when on previously Prednisone 04/07/2023 documented as of this encounter (statuses as of 09/07/2024) Medications EQ Aspirin Adult Low Dose 81 MG Oral Tablet Delayed ReleaseIndications :Coronary artery disease involving [place]pewa-cree coronary artery of chippe[place]-cree heart without angina pectoris Take 1 Tablet [...] OF PACKAGE 01/18/20 Active Vitamin D (Ergocalciferol) 69307 UNIT Oral Capsule Take by mouth. Activ [...] Oral Tablet (Lipitor)Indicatio ns:Coronary artery disease involving [place]pe[place]-cree coronary artery of chip[place]-cree heart without angina pectoris,Dyslipide aracely, goal LDL below 70 Take 1 Tablet by mouth in the morning. 90 Tablet 3 07/11/20 24 Active Albuterol Sulfate 0.63 MG/3ML Inhalation Nebulization Solution (Accuneb) Inhale 1 Vial via nebulizer every 6 hours as needed for Wheezing or Shortness of Breath. 360 mL 09/01/20 24 Active documented as of this encounter (statuses as of 09/07/2024) Active Problems Problem Noted Date Diagnosed Date COPD, group D, by GOLD 2017 classification 11/29 Overview: Per COPD GOLD Classification Pulmonary emphysema 10/26/2023 Renal artery stenosis 10/22/2023 Hypertensive heart disease w ith chronic diastolic congestive heart failure 10/21/2023 Coronary artery disease invo lving [place]pe[place]-cree heart without angina pectoris 06/08/2023 Hepatic steatosis [...] No 01/01/2024 Does the household have a [facility] source of income? (Household - for ages [...] encounter Miscellaneous Notes * Telephone Encounter - Aleah Gerardo LPN [...] urine or stool * Telephone Encounter - Omer Wayne MD - 09/02/2024 11:01 AM EST Please [...] Description 12/19/2024 11:40 AM EDT Office Visit [facility] Marilia Astorga [address] [phone] Omer Wayne MD [address] [address] 01/11/2025 8:40 AM EDT Office Visit Pulmonary Medicine, [facility] 132 [facility] [place] [address] Ronny Virk MD [address] [place] [address] 03/09/2025 2:00 PM EDT Office Visit [facility] Ctr [facility] 132 [facility] [place] [phone] Jeanette Michael CRNP 132 [facility] [place] [address] Scheduled Orders Name Type Priority Associated Diagnoses [...] Blood Test 2008 Sigmoidoscopy 2008 COVID-19 Vaccine (1 - 2024-25 season) 2024 Influenza Vaccine (FLU shot) (#1) [...] this encounter Medical Devices Implanted Type Area Stencil Printer Device Identifier Shelf Expiration Date Model / Serial / Lot Mesh Plug Prefix Lg [id number] - [id number] Implanted:Qty: 1 on 03/12/2018 by Donovan Raza MD at OR [facility] Right: Groin CR BARD : DAVOL 10/21/2018 [id number] / / [id number] documented as of this encounter Visit Diagnoses Diagnosis Hypokalemia- Primary Hypopotassemia Elevated glucose Other abnormal glucose Anemia, unspecified type documented in this encounter Care Teams Database Technician Relationship Specialty Start Date End Date Omer Wayne MD [address] [place] [address] PCP - General 02/19/05 documented as of this encounter
--- OUTSIDE RECORDS SUMMARY | 2024-10-18 06:37 | External Medical Summary | Summary of Care ---
Author Name Unknown Organization [facility] Address [address] [place] [address] Phone [phone] Care Team Providers Care Train Control Electronic Technician Name Role Phone Omer Wayne MD Primary Care Provider +1- [phone] Reason for Visit * Reason Onset Date Comments Test Results 09/02/2024 Encounter Details Date Type Department Care Team (Late st Contact Info) Description 09/02/2024 Telephone [facility] Marilia [address] [phone] Omer Wayne MD [address] [facility] [place] [address] Test Results Allergies Active Allergy Reactions Criticality Noted Date Comments Onel Inhibitors 10/22/2023 To be avoided due to bilateral renal artery stenosis and worsening kidney function when on previously Prednisone 04/07/2023 documented as of this encounter (statuses as of 09/07/2024) Medications EQ Aspirin Adult Low Dose 81 MG Oral Tablet Delayed ReleaseIndications :Coronary artery disease involving [place] coronary artery of [place] heart without angina pectoris Take 1 Tablet [...] OF PACKAGE 01/18/20 Active Vitamin D (Ergocalciferol) 69758 UNIT Oral Capsule Take by mouth. Activ [...] )Indications:COPD, group D, by GOLD 2017 classification ([facility]) Inhale 1 Puff by mouth [...] Oral Tablet (Lipitor)Indicatio ns:Coronary artery disease involving [place] coronary artery of [place] heart without angina pectoris,Dyslipide aracely, goal LDL [...] failure 10/21/2023 Coronary artery disease invo lving [place] heart without angina pectoris 06/08/2023 Hepatic steatosis [...] encounter Miscellaneous Notes * Addendum Note - Annemarie Goncalves LPN [...] Description 09/09/2024 9:40 AM EST Office Visit [facility] Jelly Adan [address] [phone] Anabela Lopez MD [address] [address] 12/19/2024 11:40 AM EDT Office Visit Jelly Velasco [address] [phone] Omer Wayne MD [address] [address] 01/11/2025 8:40 AM EDT Office Visit Pulmonary Medicine, [facility] [address] [facility] [place] [address] Ronny Virk MD [address] [address] 03/09/2025 2:00 PM EDT Office Visit Sleep Disorders [facility] 132 [facility] [place] [phone] Jeanette Michael CRNP 132 [facility] [place] [address] Scheduled Orders Name Type Priority Associated Diagnoses [...] this encounter Medical Devices Implanted Type Area Travel Freight And Passenger Agent Device Identifier Shelf Expiration Date Model / Serial / Lot Mesh Plug Prefix Lg [id number] - [id number] Implanted:Qty: 1 on 03/12/2018 by Donovan Raza MD at OR [facility] Right: Groin CR BARD : DAVOL 10/21/2018 [id number] / / [id number] documented as of this encounter Visit Diagnoses Diagnosis Hypokalemia- Primary Hypopotassemia Elevated glucose Other abnormal glucose Anemia, unspecified type documented in this encounter Care Teams Train Control Electronic Technician Relationship Specialty Start Date End Date Omer Wayne MD PCP - General 02/19/05 documented as of this encounter
--- OUTSIDE RECORDS SUMMARY | 2024-10-18 06:38 | External Medical Summary | Summary of Care ---
Author Name Unknown Organization [facility] Address [address] [place] [address] Phone [phone] Care Team Providers Care Bankruptcy Manager Name Role Phone Omer Wayne MD Primary Care Provider +1- [phone] Reason for Visit * Reason Onset Date Comments Durable Medical Equipment 08/19/2024 CPAP Encounter Details Date Type Department Care Team (Late st Contact Info) Description 08/19/2024 Telephone [facility] [address] [place] [phone] Jeanette Michael CRNP [address] [place] [address] Durable Medical Equipment (CPAP ) Allergies Active Allergy Reactions Criticality Noted Date Comments Onel Inhibitors 10/22/2023 To be avoided due to bilateral renal artery stenosis and worsening kidney function when on previously Prednisone 04/07/2023 documented as of this encounter (statuses as of 09/01/2024) Medications EQ Aspirin Adult Low Dose 81 MG Oral Tablet Delayed ReleaseIndications :Coronary artery disease involving [place] coronary artery of [place] heart without angina pectoris Take 1 Tablet [...] OF PACKAGE 01/18/20 Active Vitamin D (Ergocalciferol) 78686 UNIT Oral Capsule Take by mouth. Activ [...] )Indications:COPD, group D, by GOLD 2017 classification ([facility]) Inhale 1 Puff by mouth [...] Oral Tablet (Lipitor)Indicatio ns:Coronary artery disease involving [place] coronary artery of [place] heart without angina pectoris,Dyslipide aracely, goal LDL below 70 Take 1 Tablet by mouth in the morning. 90 Tablet 3 07/11/20 24 Active Albuterol Sulfate 0.63 MG/3ML Inhalation Nebulization Solution (Accuneb) Inhale 1 Vial via nebulizer every 6 hours as needed for Wheezing or Shortness of Breath. 360 mL 08/01/20 24 024 Discontin ued(Refil l) documented as of this encounter (statuses as of 09/01/2024) Active Problems Problem Noted Date Diagnosed Date COPD, group D, by GOLD 2017 classification 11/29 Overview: Per COPD GOLD Classification Pulmonary emphysema 10/26/2023 Renal artery stenosis 10/22/2023 Hypertensive heart disease w ith chronic diastolic congestive heart failure 10/21/2023 Coronary artery disease invo lving [place] heart without angina pectoris 06/08/2023 Hepatic steatosis [...] as of this encounter (statuses as of 09/01/2024) Resolved Problems Problem Noted Date Diagnosed Date [...] as of this encounter (statuses as of 09/01/2024) Social History Tobacco Use Types Packs/Day Years [...] EST DME order for CPAP submitted to [employer] documented in this encounter Plan of Treatment Upcoming Encounters Date Type Department Care Team (Late st Contact Info) Description 12/19/2024 11:40 AM EDT Office Visit [facility] 226 [facility] [place] [phone] Omer Wayne MD 226 [facility] [place] [address] 01/11/2025 8:40 AM EDT Office Visit Pulmonary Medicine, [facility] 132 [facility] [place] [address] Ronny Virk MD [address] [place] [place] [address] 03/09/2025 2:00 PM EDT Office Visit [facility] [address] [facility] [place] [phone] Jeanette Michael CRNP [address] [place] [address] Health Maintenance Due Date Last Done Comments [...] this encounter Medical Devices Implanted Type Area Pickle Maker Device Identifier Shelf Expiration Date Model / Serial / Lot Mesh Plug Prefix Lg [id number] - [id number] Implanted:Qty: 1 on 03/12/2018 by Donovan Raza MD at OR [facility] Right: Groin CR BARD : DAVOL 10/21/2018 [id number] / / [id number] documented as of this encounter Care Teams Bankruptcy Manager Relationship Specialty Start Date End Date Omer Wayne MD [address] [place] [address] PCP - General 02/19/05 documented as of this encounter
--- OUTSIDE RECORDS SUMMARY | 2024-10-18 06:38 | External Medical Summary | Summary of Care ---
Author Name Unknown Organization [facility] Address [address] [place] [address] Phone [phone] Care Team Providers Care Setter Helper Name Role Phone Omer Wayne MD Primary Care Provider +1- [phone] Reason for Visit * Reason Onset Date Comments Durable Medical Equipment 08/19/2024 CPAP Encounter Details Date Type Department Care Team (Late st Contact Info) Description 08/19/2024 Telephone [facility] Disorders [facility]tr [facility] [address] [place] [phone] Jeanette Michael CRNP [address] [place] [address] Durable Medical Equipment (CPAP ) Allergies Active Allergy Reactions Criticality Noted Date Comments Onel Inhibitors 10/22/2023 To be avoided due to bilateral renal artery stenosis and worsening kidney function when on previously Prednisone 04/07/2023 documented as of this encounter (statuses as of 09/02/2024) Medications EQ Aspirin Adult Low Dose 81 MG Oral Tablet Delayed ReleaseIndications :Coronary artery disease involving [place] coronary artery of [place] heart without angina pectoris Take 1 Tablet [...] OF PACKAGE 01/18/20 Active Vitamin D (Ergocalciferol) 58510 UNIT Oral Capsule Take by mouth. Activ [...] )Indications:COPD, group D, by GOLD 2017 classification ([facility]) Inhale 1 Puff by mouth in [...] Oral Tablet (Lipitor)Indicatio ns:Coronary artery disease involving [place] coronary artery of [place] heart without angina pectoris,Dyslipide aracely, goal LDL below 70 Take 1 Tablet by mouth in the morning. 90 Tablet 3 07/11/20 24 Active Albuterol Sulfate 0.63 MG/3ML Inhalation Nebulization Solution (Accuneb) Inhale 1 Vial via nebulizer every 6 hours as needed for Wheezing or Shortness of Breath. 360 mL 08/01/20 24 024 Discontin ued(Refil l) documented as of this encounter (statuses as of 09/02/2024) Active Problems Problem Noted Date Diagnosed Date COPD, group D, by GOLD 2017 classification 11/29 Overview: Per COPD GOLD Classification Pulmonary emphysema 10/26/2023 Renal artery stenosis 10/22/2023 Hypertensive heart disease w ith chronic diastolic congestive heart failure 10/21/2023 Coronary artery disease invo lving [place] heart without angina pectoris 06/08/2023 Hepatic steatosis [...] as of this encounter (statuses as of 09/02/2024) Resolved Problems Problem Noted Date Diagnosed Date [...] as of this encounter (statuses as of 09/02/2024) Social History Tobacco Use Types Packs/Day Years [...] EST DME order for CPAP submitted to [employer]. documented in this encounter Plan of Treatment Upcoming Encounters Date Type Department Care Team (Late st Contact Info) Description 12/19/2024 11:40 AM EDT Office Visit [facility] [address] [facility] [address] [phone] Omer Wayne MD [address] [address] 01/11/2025 8:40 AM EDT Office Visit Pulmonary Medicine, [facility] 132 [facility] [place] [address] Ronny [facility]k [facility] [address] [facility] [place] [address] 03/09/2025 2:00 PM EDT Office Visit [facility] [address] [place] [phone] Jeanette Michael CRNP [address] [place] [address] Health Maintenance Due Date Last Done Comments [...] this encounter Medical Devices Implanted Type Area Dietist Device Identifier Shelf Expiration Date Model / Serial / Lot Mesh Plug Prefix Lg [id number] - [id number] Implanted:Qty: 1 on 03/12/2018 by Donovan Raza MD at OR [facility] Right: Ingrid ALVARADO BARD : DAVVERÓNICA 10/21/2018 [id number] / / [id number] documented as of this encounter Care Teams Setter Helper Relationship Specialty Start Date End Date Omer Wayne MD [address] [place] [address] PCP - General 02/19/05 documented as of this encounter
--- OUTSIDE RECORDS SUMMARY | 2024-10-18 06:38 | External Medical Summary ---
Author Name Unknown Address Unknown Organization K01[facility] [place] [address] [place] [address] Laboratory Report Ordering Provider Test Date Status KATHERINE PARIKH 09/01/2024 09:52:59 Final Observation Date Value Abnormality Reference (Units ) Status Creatinine 09/01/2024 09:52:59 0.9 0.6-1.2 (mg/dL) Final Glomerular filtration rate/1.73 sq M.predicted [Volume Rate/Area] in Serum, Plasma or Blood by Creatinine-based formula (CKD-EPI) 09/01/2024 09:52:59 >90 >=60 (mL/min) Final eGFR is calculated based on the CKD-EPI 2020 equation. Performing Location [facility] [address] [place] [address]
--- OUTSIDE RECORDS SUMMARY | 2024-10-18 06:38 | External Medical Summary | Summary of Care ---
Author Name Unknown Organization [facility] Address [address] [place] [address] Phone [phone] Care Team Providers Care Sash Finisher Name Role Phone Omer Wayne MD Primary Care Provider +1- [phone] Reason for Visit * Reason Onset Date Comments Medication Refill 09/01/2024 Albuterol 0.63 mg/3ml Encounter Details Date Type Department Care Team (Late st Contact Info) Description 09/01/2024 Refill Pulmonary Medicine Lacie Gallagher [address] [phone] Ronny Strauss MD [address] [address] Allergies Active Allergy Reactions Criticality Noted Date Comments Onel Inhibitors 10/22/2023 To be avoided due to bilateral renal artery stenosis and worsening kidney function when on previously Prednisone 04/07/2023 documented as of this encounter (statuses as of 09/01/2024) Medications EQ Aspirin Adult Low Dose 81 MG Oral Tablet Delayed ReleaseIndications :Coronary artery disease involving [place] coronary artery of [place] heart without angina pectoris Take 1 Tablet [...] noon and 1 Tablet before bedtime. 12/07/19 Active traMADol HCl 50 MG Oral Tablet [...] OF PACKAGE 01/18/20 Active Vitamin D (Ergocalciferol) 17300 UNIT Oral Capsule Take by mouth. Activ [...] Oral Tablet (Lipitor)Indicatio ns:Coronary artery disease involving [place] coronary artery of [place] heart without angina pectoris,Dyslipide aracely, goal LDL below 70 Take 1 Tablet by mouth in the morning. 90 Tablet 3 07/11/20 24 Active Albuterol Sulfate 0.63 MG/3ML Inhalation Nebulization Solution (Accuneb) Inhale 1 Vial via nebulizer every 6 hours as needed for Wheezing or Shortness of Breath. 360 mL 09/01/20 24 Active Albuterol Sulfate 0.63 MG/3ML Inhalation [...] failure 10/21/2023 Coronary artery disease invo lving [place] heart without angina pectoris 06/08/2023 Hepatic steatosis [...] encounter Miscellaneous Notes * Telephone Encounter - Ronny Strauss MD - 09/01/2024 9:41 AM EST Signed Prescriptions: Disp Refills Albuterol Sulfate 0.63 MG/3ML Inhalation N*360 mL 0 Sig: Inhale 1 Vial via nebulizer every 6 hours as needed for Wheezing or Shortness of Breath.Authorizing Provider: RONNY STRAUSS documented in this encounter Plan of Treatment Upcoming Encounters Date Type Department Care Team (Late st Contact Info) Description 12/19/2024 11:40 AM EDT Office Visit [facility] 226 [facility] [place] [phone] Omer Wayne MD 226 [facility] [place] [address] 01/11/2025 8:40 AM EDT Office Visit Pulmonary Medicine, [facility] 132 [facility] [place] [address] Ronny Strauss MD [address] [place] [address] 03/09/2025 2:00 PM EDT Office Visit [facility] Disorders Ctr [facility] [address] [place] [phone] Jeanette Michael CRNP [address] [address] Health Maintenance Due Date Last Done Comments Pneumococcal Vaccine: Pediatrics (0 to 5 Years) and At-Risk Patients (6 to 64 Years) (1 of 2 - PCV) 1969 Alpha-1 Antitrypsin 1981 Cologuard 2008 Colonoscopy 2008 Colorectal Cancer Screening 2008 Fecal Occult Blood Test 2008 Sigmoidoscopy 2008 COVID-19 Vaccine ( season) 2024 Influenza Vaccine (FLU shot) (#1) 2024 Depression Screening 12/31/2024 01/01/2024 GFR 04/28/2025 04/28/2024, 09/21, 09/27/2023, Additional history exists O2 ASSESSMENT COMPLETED IN PAST YEAR FOR COPD 07/05/2025 07/05/2024 Albumin/Creatinine Ratio 10/28/2026 10/28/2023, 06/02/2023 Diabetes Screening 04/28/2027 04/28/2024, 0 10/01/2023, 09/27/2023, Additional history exists DTap/Tdap Vaccines (2 - [...] this encounter Medical Devices Implanted Type Area Social Work Faculty Member Device Identifier Shelf Expiration Date Model / Serial / Lot Mesh Plug Prefix Lg [id number] - [id number] Implanted:Qty: 1 on 03/12/2018 by Donovan Raza MD at OR [facility] Right: Groin CR BARD : DAVOL 10/21/2018 [id number] / / [id number] documented as of this encounter Care Teams Sash Finisher Relationship Specialty Start Date End Date Omer Wayne MD [address] [facility] [place] [address] PCP - General 02/19/05 documented as of this encounter
--- OUTSIDE RECORDS SUMMARY | 2024-10-18 06:38 | External Medical Summary | Summary of Care ---
Author Name Unknown Organization [facility] Address [address] [place] [address] Phone [phone] Care Team Providers Care Crate Maker Name Role Phone Omer Wayne MD Primary Care Provider +1- [phone] Reason for Visit * Reason Onset Date Comments Durable Medical Equipment 08/19/2024 CPAP Encounter Details Date Type Department Care Team (Late st Contact Info) Description 08/19/2024 Telephone Sleep Disorders Ctr [facility] [address] [place] [phone] Jeanette Michael CRNP [address] [place] [address] Durable Medical Equipment (CPAP ) Allergies Active Allergy Reactions Criticality Noted Date Comments Onel Inhibitors 10/22/2023 To be avoided due to bilateral renal artery stenosis and worsening kidney function when on previously Prednisone 04/07/2023 documented as of this encounter (statuses as of 08/19/2024) Medications EQ Aspirin Adult Low Dose 81 MG Oral Tablet Delayed ReleaseIndications :Coronary artery disease involving [place] coronary artery of [place] heart without angina pectoris Take 1 Tablet [...] OF PACKAGE 01/18/20 Active Vitamin D (Ergocalciferol) 47692 UNIT Oral Capsule Take by mouth. Activ [...] Oral Tablet (Lipitor)Indicatio ns:Coronary artery disease involving [place] coronary artery of [place] heart without angina pectoris,Dyslipide aracely, goal LDL below 70 Take 1 Tablet by mouth in the morning. 90 Tablet 3 07/11/20 24 Active Albuterol Sulfate 0.63 MG/3ML Inhalation Nebulization Solution (Accuneb) Inhale 1 Vial via nebulizer every 6 hours as needed for Wheezing or Shortness of Breath. 360 mL 08/01/20 24 Active documented as of this encounter (statuses as of 08/19/2024) Active Problems Problem Noted Date Diagnosed Date COPD, group D, by GOLD 2017 classification 11/29 Overview: Per COPD GOLD Classification Pulmonary emphysema 10/26/2023 Renal artery stenosis 10/22/2023 Hypertensive heart disease w ith chronic diastolic congestive heart failure 10/21/2023 Coronary artery disease invo lving [place] heart without angina pectoris 06/08/2023 Hepatic steatosis [...] as of this encounter (statuses as of 08/19/2024) Resolved Problems Problem Noted Date Diagnosed Date [...] as of this encounter (statuses as of 08/19/2024) Social History Tobacco Use Types Packs/Day Years [...] No 01/01/2024 Does the household have a [facility] source of income? (Household - for ages [...] EST DME order for CPAP submitted to [employer]. documented in this encounter Plan of Treatment Upcoming Encounters Date Type Department Care Team (Late st Contact Info) Description 12/19/2024 11:40 AM EDT [facility] [place] [address] [facility] [place] [phone] Omer Wayne MD [address] [address] 01/11/2025 8:40 AM EDT Office Visit Pulmonary Medicine, [facility] 132 [facility] [place] [address] Ronny Virk MD [address] [facility] [place] [address] Health Maintenance Due Date Last Done Comments [...] COPD 07/05/2025 07/05/2024 Albumin/Creatinine Ratio 10/28/2026 10/28/2023, 06/2 02/2023 Diabetes Screening 04/28/2027 04/28/2024, 0 10/01/2023, 09/27/2023, [...] this encounter Medical Devices Implanted Type Area Guest Relation Officer Device Identifier Shelf Expiration Date Model / Serial / Lot Mesh Plug Prefix Lg [id number] - [id number] Implanted:Qty: 1 on 03/12/2018 by Donovan Raza MD at OR [facility] Right: Ingrid ALVARADO BARD : DAVOL 10/21/2018 [id number] / / [id number] documented as of this encounter Care Teams Crate Maker Relationship Specialty Start Date End Date Omer Wayne MD [address] [place] [address] PCP - General 02/19/05 documented as of this encounter
--- OUTSIDE RECORDS SUMMARY | 2024-10-18 06:38 | External Medical Summary ---
Author Name Unknown Address Unknown Organization K01:[facility] - [address] [place] [id number] Laboratory Report Ordering Provider Test Date Status SIRISHAESTRELLA 09/01/2024 09:50:06 Final Observation Date Value Abnormality Reference (Units ) Status BUN 09/01/2024 09:50:06 9 6-20 (mg/dL) Final Creatinine 09/01/2024 09:50:06 0.9 0.6-1.2 (mg/dL) Final Glomerular filtration rate/1.73 sq M.predicted [Volume Rate/Area] in Serum, Plasma or Blood by Creatinine-based formula (CKD-EPI) 09/01/2024 09:50:06 >90 >=60 (mL/min) Final eGFR is calculated based on the CKD-EPI 2020 equation. Sodium 09/01/2024 09:50:06 137 135-146 (m mol/L) Final Potassium 09/01/2024 09:50:06 3.0 Below low normal 3.5 -5.1 (mmol/L) Final Cl 09/01/2024 09:50:06 93 Below low normal 98- 107 (mmol/L) Final CO2 09/01/2024 09:50:06 26 22-32 (mmo l/L) Final Anion gap 09/01/2024 09:50:06 18 Above high normal 7- 15 (mmol/L) Final Glucose 09/01/2024 09:50:06 124 Above high normal 70 -120 (mg/dL) Final Albumin 09/01/2024 09:50:06 3.6 Below low normal 3.8 -5.0 (g/dL) Final AST (Aspartate aminotransferase) 09/01/2024 09:50:06 64 Above high normal 10-50 (U/L) Final Alk Phos 09/01/2024 09:50:06 155 Above high normal 35 -130 (U/L) Final Bilirubin, Total 09/01/2024 09:50:06 0.5 <=1 .2 (mg/dL) Final Calcium 09/01/2024 09:50:06 8.4 8.4-10.2 ( mg/dL) Final Protein 09/01/2024 09:50:06 6.8 6.0-8.3 (g /dL) Final ALT (Alanine aminotransferase) 09/01/2024 09:50:06 21 10-50 (U/L) Jimi vee Performing Location [facility] - [address] [place] [facility] [address]
--- OUTSIDE RECORDS SUMMARY | 2024-10-18 06:38 | External Medical Summary | Summary of Care ---
Author Name Unknown Organization [facility] Address [address] [place] [address] Phone [phone] Care Team Providers Care Side Puller Name Role Phone Omer Wayne MD Primary Care Provider +1- [phone] Reason for Visit * Reason Comments Outpatient Testing Encounter Details Date Type Department Care Team (Late st Contact Info) Description 09/01/2024 9:50 AM EST Laboratory Laboratory, [facility] [address] [place] [address] [place], Laboratory [address], [place] [id number] Hypertensive left ventricular hypertrophy, without heart failure; Edema, unspecified type; Lumbago Allergies Active Allergy Reactions Criticality Noted Date Comments Onel Inhibitors 10/22/2023 To be avoided due to bilateral renal artery stenosis and worsening kidney function when on previously Prednisone 04/07/2023 documented as of this encounter (statuses as of 09/01/2024) Medications EQ Aspirin Adult Low Dose 81 MG Oral Tablet Delayed ReleaseIndications :Coronary artery disease involving [place] coronary artery of [place] heart without angina pectoris Take 1 [...] OF PACKAGE 01/18/20 Active Vitamin D (Ergocalciferol) 15770 UNIT Oral Capsule Take by mouth. Activ [...] )Indications:COPD, group D, by GOLD 2017 classification ([facility]) Inhale 1 Puff by mouth [...] Oral Tablet (Lipitor)Indicatio ns:Coronary artery disease involving [place] coronary artery of [place] heart without angina pectoris,Dyslipide aracely, goal [...] failure 10/21/2023 Coronary artery disease invo lving [place] heart without angina pectoris 06/08/2023 Hepatic [...] 11:40 AM EDT Office Visit Family Practice, [place] [address] [facility] [place] [address] Omer Wayne MD [address] [facility] [place] [address] 01/11/2025 8:40 AM EDT Office Visit Pulmonary Medicine, [facility] [address] [facility] [place] [address] Ronny Virk MD [address] [facility] [place] [address] 03/09/2025 2:00 PM EDT Office Visit Sleep Disorders Ctr [facility] 132 [facility] [place] [phone] Jeanette Michael CRNP 132 [facility] [place] [address] Pending Results Name Type Priority Associated Diagnoses Date /Time COMPREHENSIVE METABOLIC PANEL Lab Routine Hypertensive left ventricular hypertrophy, without heart failure Edema, unspecified type 09/01/2024 9:50 AM EST BNP, NT-PRO Lab Routine Edema, unspecified type 09/01/2024 9:50 AM EST CBC Lab Routine Edema, unspecified type 09/01/2024 9:50 AM EST BUN Lab Routine Lumbago 09/01/2024 9:52 AM EST CREATININE Lab Routine Lumbago 09/01/2024 9:52 AM EST Health Maintenance Due Date Last [...] this encounter Medical Devices Implanted Type Area Skip Load Driver Device Identifier Shelf Expiration Date Model / Serial / Lot Mesh Plug Prefix Lg [id number] - [id number] Implanted:Qty: 1 on 03/12/2018 by Donovan Raza MD at OR [facility] Right: Groin CR BARD : DAVOL 10/21/2018 [id number] / / [id number] documented as of this encounter Visit Diagnoses Diagnosis Hypertensive left ventricular hypertrophy, without heart failure Edema, unspecified type Lumbago documented in this encounter Care Teams Side Puller Relationship Specialty Start Date End Date Omer Wayne MD [address] [place] [address] PCP - General 02/19/05 documented as of this encounter
--- OUTSIDE RECORDS SUMMARY | 2024-10-18 06:38 | External Medical Summary ---
Author Name Unknown Address Unknown Organization K01:[facility] - [address] [place] [address] Laboratory Report Ordering Provider Test Date Status KATHERINE PARIKH 09/01/2024 09:52:59 Final Observation Date Value Abnormality Reference (Units ) Status BUN 09/01/2024 09:52:59 10 6-20 (mg/d L) Final Performing Location [facility] - [address] [place] [address]
--- OUTSIDE RECORDS SUMMARY | 2024-10-18 06:38 | External Medical Summary | Summary of Care ---
Author Name Unknown Organization [facility] Address [address] [place] [address] Phone [phone] Care Team Providers Care Chief Dietitian Name Role Phone Omer Wayne MD Primary Care Provider +1- [phone] Reason for Visit * Reason Onset Date Comments Durable Medical Equipment 08/19/2024 CPAP Encounter Details Date Type Department Care Team (Late st Contact Info) Description 08/19/2024 Telephone Sleep Disorders Ctr [facility] [address] [place] [address] [...] Tablet Delayed ReleaseIndications :Coronary artery disease involving [place] coronary artery of [place] heart without angina pectoris Take 1 Tablet [...] OF PACKAGE 01/18/20 Active Vitamin D (Ergocalciferol) 37227 UNIT Oral Capsule Take by mouth. Activ [...] Oral Tablet (Lipitor)Indicatio ns:Coronary artery disease involving [place] coronary artery of [place] heart without angina pectoris,Dyslipide aracely, goal LDL [...] failure 10/21/2023 Coronary artery disease invo lving [place] heart without angina pectoris 06/08/2023 Hepatic steatosis [...] EST DME order for CPAP submitted to [employer] documented in this encounter Plan of Treatment Upcoming Encounters Date Type Department Care Team (Late st Contact Info) Description 12/19/2024 11:40 AM EDT Office Visit [facility] [address] [facility] [place] [phone] Omer Wayne MD [address] [facility] [place] [address] 01/11/2025 8:40 AM EDT Office Visit Pulmonary Medicine, [facility] [address] [place] [address] Ronny Virk MD [address] [facility] [address] 03/09/2025 2:00 PM EDT Office Visit Sleep Disorders [facility] [address] [place] [phone] Jeanette Michael CRNP [address] [place] [address] Health Maintenance Due Date Last Done Comments [...] COPD 07/05/2025 07/05/2024 Albumin/Creatinine Ratio 10/28/2026 10/28/2023, 02/20 Diabetes Screening 04/28/2027 04/28/2024, 0 10/01/2023, 09/27/2023, [...] this encounter Medical Devices Implanted Type Area Foundry Hand Device Identifier Shelf Expiration Date Model / Serial / Lot Mesh Plug Prefix Lg [id number] - [id number] Implanted:Qty: 1 on 03/12/2018 by Donovan Raza MD at OR [facility] Right: Groin CR BARD : DAVOL 10/21/2018 [id number] / / [id number] documented as of this encounter Care Teams Chief Dietitian Relationship Specialty Start Date End Date Omer Wayne MD [address] [place] [address] PCP - General 02/19/05 documented as of this encounter
--- OUTSIDE RECORDS SUMMARY | 2024-10-18 06:38 | External Medical Summary | Summary of Care ---
Author Name Unknown Organization [facility] Address [address] [place] [address] Phone [phone] Care Team Providers Care Paper Coating Machine Operator Name Role Phone Omer Wayne MD Primary Care Provider +1- [phone] Reason for Visit * Reason Onset Date Comments Test Results 09/02/2024 Encounter Details Date Type Department Care Team (Late st Contact Info) Description 09/02/2024 Telephone [facility] [place] [address] [place] [phone] Omer Wayne MD [address] [facility] [address] Test Results Allergies Active Allergy Reactions Criticality Noted Date Comments Onel Inhibitors 10/22/2023 To be avoided due to bilateral renal artery stenosis and worsening kidney function when on previously Prednisone 04/07/2023 documented as of this encounter (statuses as of 09/02/2024) Medications EQ Aspirin Adult Low Dose 81 MG Oral Tablet Delayed ReleaseIndications :Coronary artery disease involving [place] coronary artery of [place] heart without angina pectoris Take 1 Tablet [...] OF PACKAGE 01/18/20 Active Vitamin D (Ergocalciferol) 21137 UNIT Oral Capsule Take by mouth. Activ [...] )Indications:COPD, group D, by GOLD 2017 classification ([facility]) Inhale 1 Puff by mouth in [...] Oral Tablet (Lipitor)Indicatio ns:Coronary artery disease involving [place] coronary artery of [place] heart without angina pectoris,Dyslipide aracely, goal LDL [...] failure 10/21/2023 Coronary artery disease invo lving [place] heart without angina pectoris 06/08/2023 Hepatic steatosis [...] No 01/01/2024 Does the household have a [facility] source of income? (Household - for [...] encounter Miscellaneous Notes * Telephone Encounter - Aleyda Vaca LPN [...] Description 12/19/2024 11:40 AM EDT Office Visit [facility] [place] [address] [place] [phone] Omer Wayne MD [address] [place] [address] 01/11/2025 8:40 AM EDT Office Visit Pulmonary Medicine, [facility] [address] [place] [address] Ronny Virk MD [address] [facility] [place] [address] 03/09/2025 2:00 PM EDT Office Visit [facility] Disorders [facility]tr [facility] [address] [place] [address] Jeanette Michael CRNP [address] [place] [address] Scheduled Orders Name Type Priority Associated Diagnoses [...] Additional history exists Albumin/Creatinine Ratio 10/28/2026 10/28/2023, 0602/2023 Diabetes Screening 09/01/2027 09/01/2024, 0 04/28/2024, 10/01/2023, [...] this encounter Medical Devices Implanted Type Area Vehicle Calibration Engineer Device Identifier Shelf Expiration Date Model / Serial / Lot Mesh Plug Prefix Lg [id number] - [id number] Implanted:Qty: 1 on 03/12/2018 by Donovan Raza MD at OR [facility] Right: Groin CR BARD : DAVOL 10/21/2018 [id number] / / [id number] documented as of this encounter Visit Diagnoses Diagnosis Hypokalemia- Primary Hypopotassemia Elevated glucose Other abnormal glucose Anemia, unspecified type documented in this encounter Care Teams Paper Coating Machine Operator Relationship Specialty Start Date End Date Omer Wayne MD [address] [place] [address] PCP - General 02/19/05 documented as of this encounter
--- OUTSIDE RECORDS SUMMARY | 2024-10-18 06:38 | External Medical Summary | Summary of Care ---
Author Name Unknown Organization [facility] Address [address] [place] [address] Phone [phone] Care Team Providers Care Gravity Flow Irrigator Name Role Phone Omer Wayne MD Primary Care Provider +1- [phone] Reason for Visit * Reason Onset Date Comments MyCode Nonconsent - Not interested at this time 09/01/2024 Encounter Details Date Type Department Care Team (Late st Contact Info) Description 09/01/2024 Orders Only Outcomes Research Department [address] [place] [address] Kristal Chavez CHRA MyCode Nonconsent Documentation Allergies Active Allergy Reactions Criticality Noted Date Comments Onel Inhibitors 10/22/2023 To be avoided due to bilateral renal artery stenosis and worsening kidney function when on previously Prednisone 04/07/2023 documented as of this encounter (statuses as of 09/01/2024) Medications EQ Aspirin Adult Low Dose 81 MG Oral Tablet Delayed ReleaseIndications :Coronary artery disease involving [place] coronary artery of [place] heart without angina pectoris Take 1 Tablet [...] OF PACKAGE 01/18/20 Active Vitamin D (Ergocalciferol) 16581 UNIT Oral Capsule Take by mouth. Activ [...] 2017 classification ([facility]) Inhale 1 Puff by mouth in [...] Oral Tablet (Lipitor)Indicatio ns:Coronary artery disease involving [place] coronary artery of [place] heart without angina pectoris,Dyslipide aracely, goal LDL [...] failure 10/21/2023 Coronary artery disease invo lving [place] heart without angina pectoris 06/08/2023 Hepatic steatosis [...] 12/28/19 24 Acute renal failure 04/07/2023 10/22/19 ALESSANDRO (acute [...] PM EDT documented as of this encounter Progress Notes * Kristal Chavez CHRA - 09/01/2024 9:50 AM EST MyCode Nonconsent Documentation Garret Jimenez was approached in the clinic regarding participation in the MyCode Project and did not consent. documented in this encounter Plan of Treatment Upcoming Encounters Date Type Department Care Team (Late st Contact Info) Description 12/19/2024 11:40 AM EDT Office Visit [facility] [place] [address] [place] [phone] Omer Wayne MD [address] [facility] [place] [address] 01/11/2025 8:40 AM EDT Office Visit Pulmonary Medicine, [facility] [address] [place] [address] Ronny Virk MD [address] [place] [address] 03/09/2025 2:00 PM EDT Office Visit Sleep Disorders Ctr [facility] [address] [place] [phone] Jeanette Michael CRNP 132 [facility] [place] [address] Health Maintenance Due Date Last Done Comments [...] this encounter Medical Devices Implanted Type Area Assistant Technician Device Identifier Shelf Expiration Date Model / Serial / Lot Mesh Plug Prefix Lg [id number] - [id number] Implanted:Qty: 1 on 03/12/2018 by Donovan Raza MD at OR [facility] Right: Groin CR BARD : DAVOL 10/21/2018 [id number] / / [id number] documented as of this encounter Care Teams Gravity Flow Irrigator Relationship Specialty Start Date End Date Omer Wayne MD [address] [place] [address] PCP - General 02/19/05 documented as of this encounter
--- OUTSIDE RECORDS SUMMARY | 2024-10-18 06:38 | External Medical Summary ---
Author Name Unknown Address Unknown Organization K01:[facility] - [address] [place] [address] Laboratory Report Ordering Provider Test Date Status ESTRELLA GRIMM 09/01/2024 09:50:06 Final Exclude Heart Failure: <300 pg/mL
Diagnose Heart Failure:
Age <50 yr: >450 pg/mL
50-75 yr: >900 pg/mL
>75 yr: >1800 pg/mL
GFR is 30-59 mL/min: >1200 pg/mL or Age- adjusted values
GFR <30 mL/min: do not use, not reliable

Prognostic threshold: 1000 pg/mL Observation Date Value Abnormality Reference (Units ) Status BNP, Pro-hormone 09/01/2024 09:50:06 304 Above high no rmal <300 (pg/mL) Final Performing Location [facility] - [facility] [address] [place] [address]
--- OUTSIDE RECORDS SUMMARY | 2024-10-18 06:38 | External Medical Summary | Summary of Care ---
Author Name Unknown Organization [facility] Address [address] [place] [address] Phone [phone] Care Team Providers Care Curriculum Assistant Name Role Phone Omer Wayne MD Primary Care Provider +1- [phone] Reason for Visit * Reason Onset Date Comments Nurse Documentation 09/01/2024 Encounter Details Date Type Department Care Team (Late st Contact Info) Description 09/01/[address] [facility] [place] [address] [place] [phone] Omer Wayne MD [address] [facility] [place] [address] Nurse Documentation Allergies Active Allergy Reactions Criticality Noted Date Comments Onel Inhibitors 10/22/2023 To be avoided due to bilateral renal artery stenosis and worsening kidney function when on previously Prednisone 04/07/2023 documented as of this encounter (statuses as of 09/01/2024) Medications EQ Aspirin Adult Low Dose 81 MG Oral Tablet Delayed ReleaseIndications :Coronary artery disease involving [place] coronary artery of [place] heart without angina pectoris Take 1 Tablet [...] OF PACKAGE 01/18/20 Active Vitamin D (Ergocalciferol) 41223 UNIT Oral Capsule Take by mouth. Activ [...] )Indications:COPD, group D, by GOLD 2017 classification ([facility]) Inhale 1 Puff by mouth in [...] Oral Tablet (Lipitor)Indicatio ns:Coronary artery disease involving [place] coronary artery of [place] heart without angina pectoris,Dyslipide aracely, goal LDL [...] failure 10/21/2023 Coronary artery disease invo lving [place] heart without angina pectoris 06/08/2023 Hepatic steatosis [...] No 01/01/2024 Does the household have a [facility] source of income? (Household - [...] encounter Miscellaneous Notes * Telephone Encounter - Catia Stapleton, MED ASSIST - 09/01/2024 2:51 PM EST Received Fax for BFPROVIDERS: Dr. Omer Wayne MRI received from [address] [place] [address] documented in this encounter Plan of Treatment Upcoming Encounters Date Type Department Care Team (Late st Contact Info) Description 12/19/2024 11:40 AM EDT Office Visit Family [facility], [place] [address] [facility] [place] [phone] Omer Wayne MD [address] [facility] [place] [address] 01/11/2025 8:40 AM EDT Office Visit Pulmonary Medicine, [facility] 132 [facility] [place] [address] Ronny Virk MD [address] [facility] [address] 03/09/2025 2:00 PM EDT Office Visit Sleep Disorders Ctr [facility] [address] [facility] [place] [phone] Jeanette Michael CRNP 132 [facility] [place] [address] Health Maintenance Due Date Last Done Comments [...] this encounter Medical Devices Implanted Type Area Ticker Wirer Device Identifier Shelf Expiration Date Model / Serial / Lot Mesh Plug Prefix Lg [id number] - [id number] Implanted:Qty: 1 on 03/12/2018 by Donovan Raza MD at OR [facility] Right: Groin CR BARD : DAVOL 10/21/2018 [id number] / / [id number] documented as of this encounter Care Teams Curriculum Assistant Relationship Specialty Start Date End Date Omer Wayne MD [address] [place] [address] PCP - General 02/19/05 documented as of this encounter
--- OUTSIDE RECORDS SUMMARY | 2024-10-18 06:38 | External Medical Summary | Summary of Care ---
Author Name Unknown Organization [facility] Address [address] [place] [address] Phone [phone] Care Team Providers Care Hearth Feeder Name Role Phone Omer Wayne MD Primary Care Provider +1- [phone] Reason for Visit * Reason Onset Date Comments Durable Medical Equipment 08/19/2024 CPAP Encounter Details Date Type Department Care Team (Late st Contact Info) Description 08/19/2024 Telephone Sleep Disorders Ctr [facility] [address] [place] [phone] [...] Tablet Delayed ReleaseIndications :Coronary artery disease involving [place] coronary artery of [place] heart without angina pectoris Take 1 Tablet [...] OF PACKAGE 01/18/20 Active Vitamin D (Ergocalciferol) 34508 UNIT Oral Capsule Take by mouth. Activ [...] by GOLD 2017 classification ([facility]) Inhale 1 Puff by mouth in the [...] Oral Tablet (Lipitor)Indicatio ns:Coronary artery disease involving [place] coronary artery of [place] heart without angina pectoris,Dyslipide aracely, goal LDL [...] failure 10/21/2023 Coronary artery disease invo lving [place] heart without angina pectoris 06/08/2023 Hepatic steatosis [...] EST DME order for CPAP submitted to [employer]. documented in this encounter Plan of Treatment Upcoming Encounters Date Type Department Care Team (Late st Contact Info) Description 12/19/2024 11:40 AM EDT [facility] [place] [address] [facility] [place] [phone] Omer Wayne MD [address] [place] [address] 01/11/2025 8:40 AM EDT Office Visit Pulmonary Medicine, [facility] [address] [place] [address] Ronny Virk MD [address] [facility] [address] 03/09/2025 2:00 PM EDT Office Visit Sleep Disorders Ctr [facility] [address] [place] [phone] Jeanette Michael CRNP [address] [place] [address] Health Maintenance Due Date Last Done Comments [...] this encounter Medical Devices Implanted Type Area Tenter Feeder Device Identifier Shelf Expiration Date Model / Serial / Lot Mesh Plug Prefix Lg [id number] - [id number] Implanted:Qty: 1 on 03/12/2018 by Donovan Raza MD at OR [facility] Right: Groin CR BARD : DAVOL 10/21/2018 [id number] / / [id number] documented as of this encounter Care Teams Hearth Feeder Relationship Specialty Start Date End Date Omer Wayne MD [address] [place] [address] PCP - General 02/19/05 documented as of this encounter
--- OUTSIDE RECORDS SUMMARY | 2024-10-18 06:39 | External Medical Summary | Summary of Care ---
Author Name Unknown Organization [facility] Address [address] [place] [address] Phone [phone] Care Team Providers Care Mill Stenciler Name Role Phone Omer Wayne MD Primary Care Provider +1- [phone] Reason for Visit * Reason Onset Date Comments Health Maintenance 08/03/2024 Encounter Details Date Type Department Care Team (Late st Contact Info) Description 08/03/2024 Telephone [facility] [address] [place] [address] Omer Wayne MD [address] [place] [address] Health Maintenance Allergies Active Allergy Reactions Criticality Noted Date Comments Onel Inhibitors 10/22/2023 To be avoided due to bilateral renal artery stenosis and worsening kidney function when on previously Prednisone 04/07/2023 documented as of this encounter (statuses as of 08/03/2024) Medications EQ Aspirin Adult Low Dose 81 MG Oral Tablet Delayed ReleaseIndications :Coronary artery disease involving [place] coronary artery of [place] heart without angina pectoris Take 1 Tablet [...] OF PACKAGE 01/18/20 Active Vitamin D (Ergocalciferol) 32249 UNIT Oral Capsule Take by mouth. Activ [...] D, by GOLD 2017 classification ([facility]) Inhale 1 Puff by mouth in [...] Oral Tablet (Lipitor)Indicatio ns:Coronary artery disease involving [place] coronary artery of [place] heart without angina pectoris,Dyslipide aracely, goal LDL below 70 Take 1 Tablet by mouth in the morning. 90 Tablet 3 07/11/20 24 Active Albuterol Sulfate 0.63 MG/3ML Inhalation Nebulization Solution (Accuneb) Inhale 1 Vial via nebulizer every 6 hours as needed for Wheezing or Shortness of Breath. 360 mL 08/01/20 24 Active documented as of this encounter (statuses as of 08/03/2024) Active Problems Problem Noted Date Diagnosed Date COPD, group D, by GOLD 2017 classification 11/29 Overview: Per COPD GOLD Classification Pulmonary emphysema 10/26/2023 Renal artery stenosis 10/22/2023 Hypertensive heart disease w ith chronic diastolic congestive heart failure 10/21/2023 Coronary artery disease invo lving [place] heart without angina pectoris 06/08/2023 Hepatic steatosis [...] as of this encounter (statuses as of 08/03/2024) Resolved Problems Problem Noted Date Diagnosed Date [...] as of this encounter (statuses as of 08/03/2024) Social History Tobacco Use Types Packs/Day Years [...] No 01/01/2024 Does the household have a [facility] source of income? (Household - for ages [...] encounter Miscellaneous Notes * Telephone Encounter - Linn Lewis LPN - 08/03/2024 9:48 AM EST Care Gaps Comprehensive Care Outreach Last Office/Telemedicine Visit: 06/14/2024 (in office), Visit date not found (telemedicine) Next Office Visit: Visit date not found Hemoglobin AIC Results: Lab Results Component Value Date/Time HEMOGLOBIN A1C - EDI 5.1 01/20/2018 04:16 PM BP Readings from Last 1 Encounters: 07/05/24 98/62 Reviewed Health Maintenance below: Health Maintenance Topic Date Due Pneumococcal Vaccine: Pediatrics (0 to 5 Years) and At-Risk Patients (6 to 64 Years) (1 of 2 - PCV)Never done Alpha-1 Antitrypsin Never done Colorectal Cancer Screening Never done Influenza Vaccine (FLU shot) (1) Never done COVID-19 Vaccine ( season) Never done Depression Screening 12/31/2024 Ov already scheduled colon Care Gap Outreach Action Taken: Left message documented in this encounter Plan of Treatment Upcoming Encounters Date Type Department Care Team (Late st Contact Info) Description 08/15/2024 8:30 PM EST PulmDiagnostic Sleep Lab, [facility] [address] [facility] [address] [facility], Sleep Med Night Sleep [address] [facility] [address] 12/19/2024 11:40 AM EDT [facility] [address] [facility] [place] [address] Omer Wayne MD [address] [facility] [address] 01/11/2025 8:40 AM EDT Office Visit Pulmonary Medicine, [facility] [address] [facility] [place] [address] Ronny Virk MD [address] [facility] [place] [address] Health Maintenance Due Date Last Done Comments [...] COPD 07/05/2025 07/05/2024 Albumin/Creatinine Ratio 10/28/2026 10/28/2023, 0602/2023 Diabetes Screening 04/28/2027 04/28/2024, 0 10/01/2023, 09/27/2023, [...] encounter Medical Devices Implanted Type Area Guest Associate Device Identifier Shelf Expiration Date Model / Serial / Lot Mesh Plug Prefix [id number] [id number] - [id number] Implanted:Qty: 1 on 03/12/2018 by Donovan Raza MD at OR [facility] Right: Groin CR BARD : DAVOL 10/21/2018 [id number] / / [id number] documented as of this encounter Care Teams Mill Stenciler Relationship Specialty Start Date End Date Omer Wayne MD [address] [place] [address] PCP - General 02/19/05 documented as of this encounter
--- OUTSIDE RECORDS SUMMARY | 2024-10-18 06:39 | External Medical Summary | Summary of Care ---
Author Name Unknown Organization [facility] Address [address] [facility] [address] Phone [phone] Care Team Providers Care Bsa/Aml Compliance Officer Name Role Phone Omer Wayne MD Primary Care Provider +1- [phone] Reason for Visit * Reason Onset Date Comments Follow Up 07/21/2024 Encounter Details Date Type Department Care Team (Late st Contact Info) Description 07/21/2024 Telephone Pulmonary Medicine [facility] Gallagher [address] [place] [address] Ronny Virk MD [address] [place] [id number] Follow Up Allergies Active Allergy Reactions Criticality Noted Date Comments Onel Inhibitors 10/22/2023 To be avoided due to bilateral renal artery stenosis and worsening kidney function when on previously Prednisone 04/07/2023 documented as of this encounter (statuses as of 07/21/2024) Medications Medication Sig Dispensed Refills Start Date End Date Status EQ Aspirin Adult Low Dose 81 MG Oral Tablet Delayed ReleaseIndications:C oronary artery disease involving eek coronary artery of eek heart without angina pectoris Take 1 Tablet by mouth daily. In the morning. 90 Tablet 3 03/11/2023 Active Additional Information Patient not taking.Reported on 07/05/2024 Baclofen 10 MG Oral Tablet (Lioresal) Take 1 Tablet by mouth in the morning and 1 Tablet at noon and 1 Tablet before bedtime. 90 Tablet 1 06/08/2023 Active Cyanocobalamin 1000 MCG Oral Capsule Take by mouth. Acti ve Thiamine HCl 100 MG Oral Tablet Take 1 Tablet by mouth in the morning. Active busPIRone HCl 5 MG Oral Tablet (Buspar) Take 1 Tablet by mouth in the morning and 1 Tablet at noon and 1 Tablet before bedtime. 12/07/2023 Active traMADol HCl 50 MG Oral Tablet (Ultram)Indications: DDD (degenerative disc disease), lumbar,Spinal stenosis of lumbar region with neurogenic claudication Take 1 Tablet by mouth 2 times a day as needed for Pain, Severe. 30 Tablet 01/01/2024 Active Additional Information Patient not taking.Reported on 07/05/2024 oxyCODONE HCl 5 MG Oral Tablet (Oxy IR) Take 1 Tablet by mouth every 6 hours as needed. 01/14/2024 Active methylPREDNISolone 4 MG Oral Tablet Therapy Pack (Medrol Dosepack) TAKE BY MOUTH DIRECTED ON INSIDE OF PACKAGE 01/18/2024 Active Vitamin D (Ergocalciferol) 22704 UNIT Oral Capsule Take by mouth. Active Carvedilol 12.5 MG Oral Tablet (Coreg)Indications:H ypertensive heart disease with chronic diastolic congestive heart failure (HCC) 3 tabs by mouth twice per day 540 Tablet 3 01/21/2024 Active Furosemide 20 MG Oral Tablet (Lasix)Indications:H ypertensive left ventricular hypertrophy, without heart failure Take 1 Tablet by mouth in the morning. 90 Tablet 3 01/21/2024 Active Folic Acid 1 MG Oral TabletIndications:Al cohol ingestion, 1-4 drinks per day Take 1 Tablet by mouth in the morning. 90 Tablet 3 01/21/2024 Active Potassium Chloride Alba ER 20 MEQ Oral Tablet Extended ReleaseIndications:H ypertensive left ventricular hypertrophy, without heart failure Take 1 Tablet by mouth in the morning. 90 Tablet 3 06/14/2024 Active Sertraline HCl 50 MG Oral Tablet (Zoloft) Take 1 Tablet by mouth in the morning. 90 Tablet 3 06/14/2024 Active Trelegy Ellipta 200-62.5-25 MCG/ACT Aerosol Powder Breath Activated (Fluticasone-Umeclid inium-Vilanterol)Ind ications:COPD, group D, by GOLD 2017 classification ([facility]) Inhale 1 Puff by mouth in the morning. 180 Blister Dosing Unit 3 07/05/2024 Active Ventolin HFA 108 (90 Base) MCG/ACT Inhalation Aerosol Solution Inhale 2 Puffs by mouth every 4 hours as needed for Dyspnea or Wheezing. 18 g 3 07/05/2024 5 Active Azithromycin 250 MG Oral Tablet (Zithromax Z-Oswaldo) Please take 500 mg by mouth on day one, followed by 250 mg by mouth for four days. 6 Tablet 07/05/2024 Active Albuterol Sulfate 0.63 MG/3ML Inhalation Nebulization Solution (Accuneb) Inhale 1 Vial via nebulizer every 6 hours as needed for Wheezing or Shortness of Breath. 360 mL 07/05/2024 4 Active Atorvastatin Calcium 80 MG Oral Tablet (Lipitor)Indications :Coronary artery disease involving eek coronary artery of eek heart without angina pectoris,Dyslipidemi a, goal LDL below 70 Take 1 Tablet by mouth in the morning. 90 Tablet 3 07/11/2024 Active documented as of this encounter (statuses as of 07/21/2024) Active Problems Problem Noted Date Diagnosed Date COPD, group D, by GOLD 2017 classification 11/29 Overview: Per COPD GOLD Classification Pulmonary emphysema 10/26/2023 Renal artery stenosis 10/22/2023 Hypertensive heart disease w ith chronic diastolic congestive heart failure 10/21/2023 Coronary artery disease invo lving eek heart without angina pectoris 06/08/2023 Hepatic steatosis [...] as of this encounter (statuses as of 07/21/2024) Resolved Problems Problem Noted Date Diagnosed Date [...] as of this encounter (statuses as of 07/21/2024) Social History Tobacco Use Types Packs/Day Years [...] encounter Miscellaneous Notes * Telephone Encounter - Sarah Ryan OSA - 07/21/2024 1:35 PM EDT Called pt to schedule ct scan LM to give us a call back documented in this encounter Plan of Treatment Upcoming Encounters Date Type Department Care Team (Late st Contact Info) Description 08/15/2024 8:30 PM EST PulmDiagnostic Sleep Lab, [facility] [address] [place] [address] [facility], Sleep Med Night Sleep [address] [place] [address] 12/19/2024 11:40 AM EDT Office Visit [facility] [address] [place] [phone] Omer Wayne MD [address] [place] [address] 01/11/2025 8:40 AM EDT Office Visit Pulmonary Medicine, [facility] [address] [facility] [place] [id number] Ronny Virk MD [address] [place] [address] Health Maintenance Due Date Last Done Comments [...] this encounter Medical Devices Implanted Type Area Conservation Engineer Device Identifier Shelf Expiration Date Model / Serial / Lot Mesh Plug Prefix Lg [id number] - [id number] Implanted:Qty: 1 on 03/12/2018 by Donovan Raza MD at OR [facility] Right: Groin CR BARD : DAVOL 10/21/2018 [id number] / / [id number] documented as of this encounter Care Teams Bsa/Aml Compliance Officer Relationship Specialty Start Date End Date Omer Wayne MD [address] [place] [address] PCP - General 02/19/05 documented as of this encounter
--- OUTSIDE RECORDS SUMMARY | 2024-10-18 06:39 | External Medical Summary | Summary of Care ---
Author Name Unknown Organization [facility] Address [address] [place] [address] Phone [phone] Care Team Providers Care Training Development Director Name Role Phone Omer Wayne MD Primary Care Provider +1- [phone] Reason for Visit * Reason Onset Date Comments Medication Refill 07/29/2024 Albuterol 0.63 mg/3ml neb Encounter Details Date Type Department Care Team (Late st Contact Info) Description 07/29/2024 Refill Pulmonary Medicine [facility]ie Gallagher [address] [phone] Ronny Strauss MD [address] [place] [address] Allergies Active Allergy Reactions Criticality Noted Date Comments Onel Inhibitors 10/22/2023 To be avoided due to bilateral renal artery stenosis and worsening kidney function when on previously Prednisone 04/07/2023 documented as of this encounter (statuses as of 08/01/2024) Medications EQ Aspirin Adult Low Dose 81 MG Oral Tablet Delayed ReleaseIndications :Coronary artery disease involving [place] coronary artery of [place] heart without angina pectoris Take 1 Tablet [...] OF PACKAGE 01/18/20 Active Vitamin D (Ergocalciferol) 15226 UNIT Oral Capsule Take by mouth. Activ [...] )Indications:COPD, group D, by GOLD 2017 classification (HCC) Inhale 1 Puff by mouth in the [...] Oral Tablet (Lipitor)Indicatio ns:Coronary artery disease involving [place] coronary artery of [place] heart without angina pectoris,Dyslipide aracely, goal LDL below 70 Take 1 Tablet by mouth in the morning. 90 Tablet 3 07/11/20 24 Active Albuterol Sulfate 0.63 MG/3ML Inhalation Nebulization Solution (Accuneb) Inhale 1 Vial via nebulizer every 6 hours as needed for Wheezing or Shortness of Breath. 360 mL 08/01/20 24 Active Albuterol Sulfate 0.63 MG/3ML Inhalation Nebulization Solution (Accuneb) Inhale 1 Vial via nebulizer every 6 hours as needed for Wheezing or Shortness of Breath. 360 mL 07/05/20 24 024 Discontin ued(Refil l) documented as of this encounter (statuses as of 08/01/2024) Active Problems Problem Noted Date Diagnosed Date COPD, group D, by GOLD 2017 classification 11/29 Overview: Per COPD GOLD Classification Pulmonary emphysema 10/26/2023 Renal artery stenosis 10/22/2023 Hypertensive heart disease w ith chronic diastolic congestive heart failure 10/21/2023 Coronary artery disease invo lving [place] heart without angina pectoris 06/08/2023 Hepatic steatosis [...] as of this encounter (statuses as of 08/01/2024) Resolved Problems Problem Noted Date Diagnosed Date [...] as of this encounter (statuses as of 08/01/2024) Social History Tobacco Use Types Packs/Day Years [...] Telephone Encounter - Ronny Strauss MD - 08/01/2024 12:22 PM EST Signed Prescriptions: Disp Refills Albuterol Sulfate 0.63 MG/3ML Inhalation N*360 mL 0 Sig: Inhale1 Vial via nebulizer every 6 hours as needed for Wheezing or Shortness of Breath.Authorizing Provider: RONNY STRAUSS documented in this encounter Plan of Treatment Upcoming Encounters Date Type Department Care Team (Late st Contact Info) Description 08/15/2024 8:30 PM EST PulmDiagnostic Sleep Lab, [facility] [address] [facility] [address] [facility], Sleep Med Night Sleep [address] [place] [address] 12/19/2024 11:40 AM EDT Office Visit [facility] [address] [facility] [address] Omer [facility] MD [address] [facility] [address] 01/11/2025 8:40 AM EDT Office Visit Pulmonary Medicine, [facility] [address] [facility] [place] [address] Ronny Strauss MD [address] [place] [address] Health Maintenance Due Date Last Done Comments [...] this encounter Medical Devices Implanted Type Area Power Reactor Operator Device Identifier Shelf Expiration Date Model / Serial / Lot Mesh Plug Prefix [id number] [id number] - [id number] Implanted:Qty: 1 on 03/12/2018 by Donovan Rzaa MD at OR [facility] Right: Groin CR BARD : DAVOL 10/21/2018 [id number] / / [id number] documented as of this encounter Care Teams Training Development Director Relationship Specialty Start Date End Date Omer Wayne MD [address] [place] [facility] [place] [address] PCP - General 02/19/05 documented as of this encounter
--- OUTSIDE RECORDS SUMMARY | 2024-10-18 06:39 | External Medical Summary | Summary of Care ---
Author Name Unknown Organization [facility] Address [address] [place] [address] Phone [phone] Care Team Providers Care Control Supervisor Name Role Phone Omer Wayne MD Primary Care Provider +1- [phone] Reason for Visit * Reason Onset Date Comments Appointment 08/14/2024 appt reminder - spoke to patient, instructions provided Encounter Details Date Type Department Care Team ([facility] st Contact Info) Description 08/14/2024 Telephone Sleep Lab, [facility] [address] [place] [address] [facility], Sleep Med Night Sleep [address] [place] [address] Appointment (appt reminder - spoke to raúl... Allergies Active Allergy Reactions Criticality Noted Date Comments Onel Inhibitors 10/22/2023 To be avoided due to bilateral renal artery stenosis and worsening kidney function when on previously Prednisone 04/07/2023 documented as of this encounter (statuses as of 08/14/2024) Medications EQ Aspirin Adult Low Dose 81 MG Oral Tablet Delayed ReleaseIndications :Coronary artery disease involving [place] coronary artery of [place] heart without angina pectoris Take 1 Tablet [...] OF PACKAGE 01/18/20 Active Vitamin D (Ergocalciferol) 70733 UNIT Oral Capsule Take by mouth. Activ [...] Oral Tablet (Lipitor)Indicatio ns:Coronary artery disease involving [place] coronary artery of [place] heart without angina pectoris,Dyslipide aracely, goal LDL below 70 Take 1 Tablet by mouth in the morning. 90 Tablet 3 07/11/20 24 Active Albuterol Sulfate 0.63 MG/3ML Inhalation Nebulization Solution (Accuneb) Inhale 1 Vial via nebulizer every 6 hours as needed for Wheezing or Shortness of Breath. 360 mL 08/01/20 Active documented as of this encounter (statuses as of 08/14/2024) Active Problems Problem Noted Date Diagnosed Date COPD, group D, by GOLD 2017 classification 11/29 Overview: Per COPD GOLD Classification Pulmonary emphysema 10/26/2023 Renal artery stenosis 10/22/2023 Hypertensive heart disease w ith chronic diastolic congestive heart failure 10/21/2023 Coronary artery disease invo lving [place] heart without angina pectoris 06/08/2023 Hepatic steatosis [...] as of this encounter (statuses as of 08/14/2024) Resolved Problems Problem Noted Date Diagnosed Date [...] as of this encounter (statuses as of 08/14/2024) Social History Tobacco Use Types Packs/Day Years [...] 08/15/2024 8:30 PM EST PulmDiagnostic Sleep Lab, [facility] [address] [place] [address] [facility], Sleep Med Night Sleep [address] [place] [address] 12/19/2024 11:40 AM EDT Office Visit [facility], [facility] [address] [facility] [address] Omer Wayne [facility] [address] [facility] [address] 01/11/2025 8:40 AM EDT Office Visit Pulmonary Medicine, [facility] [address] [facility] [place] [address] Ronny Virk MD [address] [place] [address] Health Maintenance Due Date Last Done Comments [...] this encounter Medical Devices Implanted Type Area Computer Aided Design Technician Device Identifier Shelf Expiration Date Model / Serial / Lot Mesh Plug Prefix [id number] [id number] - [id number] Implanted:Qty: 1 on 03/12/2018 by Donovan Raza MD at OR [facility] Right: Groin CR BARD : DAVOL 10/21/2018 [id number] / / [id number] documented as of this encounter Care Teams Control Supervisor Relationship Specialty Start Date End Date Omer Wayne MD [address] [place] [address] PCP - General 02/19/05 documented as of this encounter
--- OUTSIDE RECORDS SUMMARY | 2024-10-18 06:39 | External Medical Summary | Summary of Care ---
Author Name Unknown Organization [facility] Address [address] [place] [address] Phone [phone] Care Team Providers Care Preparation Operator Name Role Phone Omer Wayne MD Primary Care Provider [phone]- [phone] Reason for Visit * Reason Onset Date Comments Medication Refill 07/11/2024 Encounter Details Date Type Department Care Team (Late st Contact Info) Description 07/11/2024 Refill [facility] [address] [place] [address] Omer Wayne MD [address] [place] [address] Hypertensive left ventricular hypertrophy, without heart failure Allergies Active Allergy Reactions Criticality Noted Date Comments Onel Inhibitors 10/22/2023 To be avoided due to bilateral renal artery stenosis and worsening kidney function when on previously Prednisone 04/07/2023 documented as of this encounter (statuses as of 08/11/2024) Medications EQ Aspirin Adult Low Dose 81 MG Oral Tablet Delayed ReleaseIndications :Coronary artery disease involving [place] coronary artery of [place] heart without angina pectoris Take 1 Tablet [...] OF PACKAGE 01/18/20 Active Vitamin D (Ergocalciferol) 62836 UNIT Oral Capsule Take by mouth. Activ [...] D, by GOLD 2017 classification ([facility]) Inhale 1 Puff by mouth [...] for four days. 6 Tablet 07/05/20 Active Albuterol Sulfate 0.63 MG/3ML Inhalation Nebulization Solution (Accuneb) Inhale 1 Vial via nebulizer every 6 hours as needed for Wheezing or Shortness of Breath. 360 mL 07/05/20 24 024 Discontin ued(Refil l) documented as of this encounter (statuses as of 08/11/2024) Active Problems Problem Noted Date Diagnosed Date COPD, group D, by GOLD 2017 classification 11/29 Overview: Per COPD GOLD Classification Pulmonary emphysema 10/26/2023 Renal artery stenosis 10/22/2023 Hypertensive heart disease w ith chronic diastolic congestive heart failure 10/21/2023 Coronary artery disease invo lving [place] heart without angina pectoris 06/08/2023 Hepatic steatosis [...] as of this encounter (statuses as of 08/11/2024) Resolved Problems Problem Noted Date Diagnosed Date [...] as of this encounter (statuses as of 08/11/2024) Social History Tobacco Use Types Packs/Day Years [...] encounter Miscellaneous Notes * Telephone Encounter - Mary Anne Hidalgo, [facility] - 07/13/2024 6:40 AM EDTRefused Prescriptions: Disp Refills Furosemide 20 MG Oral Tablet (Lasix) 90 Tab*3 Sig: Take 1 Tablet by mouth in the morning. Refused By: MARY ANNE HIDALGO Reason for Refusal: Too soon Electronically signed by Mary Anne Hidalgo [facility] at 07/13/2024 6:40 AM EDT * Telephone Encounter - Mary Anne Hidalgo [facility] - 07/13/2024 6:39 AM EDT Still refills remaining at pharmacy Please advise patient to contact pharmacy for refill Thank You, Mary Anne Hidalgo [facility] Clinical Pharmacist [facility] [phone] [id number] 07/13/2024, 6:40 AM Electronically signed by Mary Anne Hidalgo [facility] at 07/13/2024 6:40 AM EDT * Telephone Encounter - Tana Durand CPhT - 07/11/2024 8:49 AM EDT Did you pend patient's preferred pharmacy and medication before forwarding?yes Pharmacy: [facility] [id number] Pending Prescriptions: Disp Refills Furosemide 20 MG Oral Tablet (Lasix) 90 Tab*3 Sig: Take 1 Tablet by mouth in the morning. Last Visit: 06/14/2024 (in office), Visit date not found (telemedicine) Next Visit: 12/19/2024 If no future appointments scheduled, and last appointment is greater than a year ago, please schedule patient for a follow-up appointment Last date the medication was ordered: 01/21/24 Is this request for a controlled substance?No Urine Drug Screen:No results found for this or any previous visit. Patient Phone Numbers Labs: Lab Results Component Value Date/Time CREAT 1.2 04/28/2024 11:18 AM CREAT 0.98 09/27/2023 12:00 AM CREAT 0.9 01/31/2019 03:35 PM POTASSIUM 4.4 04/28/2024 11:18 AM POTASSIUM 3.4 (A) 09/27/2023 12:00 AM POTASSIUM 4.4 01/31/2019 03:35 PM LDL 47 04/28/2024 11:18 AM LDL 85 10/06/2017 12:02 PM ALT 60 (H) 04/28/2024 11:18 AM ALT 30 01/20/2018 04:16 PM HGBA1C 5.1 01/20/2018 04:16 PM documented in this encounter Plan of Treatment Upcoming Encounters Date Type Department Care Team (Late st Contact Info) Description 08/15/2024 8:30 PM EST [facility]ostic [facility], [facility] [address] [facility] [address] [facility], Sleep Med Night Sleep [address] [place] [address] 12/19/2024 11:40 AM EDT Office Visit Family [facility] [address] [facility] [place] [id number] Omer Wayne MD [address] [place] [address] 01/11/2025 8:40 AM EDT Office Visit Pulmonary Medicine, [facility] [address] [facility] [place] [address] Ronny Virk MD [address] [place] [address] Health Maintenance Due Date Last Done Comments [...] this encounter Medical Devices Implanted Type Area Blanking Press Operator Device Identifier Shelf Expiration Date Model / Serial / Lot Mesh Plug Prefix Lg [id number] - [id number] Implanted:Qty: 1 on 03/12/2018 by Donovan Raza MD at OR [facility] Right: Groin CR BARD : DAVOL 10/21/2018 [id number] / / [id number] documented as of this encounter Visit Diagnoses Diagnosis Hypertensive left ventricular hypertrophy, without heart failure documented in this encounter Care Teams Preparation Operator Relationship Specialty Start Date End Date Omer Wayne MD [address], [place] [id number] PCP - General 02/19/05 documented as of this encounter
--- OUTSIDE RECORDS SUMMARY | 2024-10-18 06:39 | External Medical Summary | Summary of Care ---
Author Name Unknown Organization [facility] Address [address] [facility] [place] [address] Phone [phone] Care Team Providers Care Composite Engineer Name Role Phone Omer Wayne MD Primary Care Provider [phone]- [phone] Reason for Visit * Reason Comments Sleep Apnea * Precert (Within 10 days (routine)) - Authorized Specialty Diagnoses / Procedures Referred By Contac t Referred To Contact Sleep Disorders Diagnoses Obstructive sleep apnea Nocturnal hypoxemia Procedures SLEEP STUDY, W/ CPAP (TREATMENT SETTINGS) Jeanette Michael CRNP [address] [place] [address] Phone: tel: fax: Referral ID Status Reason Start Date Expiration Date V isits Requested Visits Authorized [id number] Authorized Precert 07/29/2024 10/29/2024 [id number] Encounter Details Date Type Department Care Team (Late st Contact Info) Description 08/15/2024 8:30 PM EST PulmDiagnostic Sleep Lab, [facility] [address] [place] [facility] [address] [facility], Sleep [facility] [address] [facility] [address] Hypersomnolence* Allergies Active Allergy Reactions Criticality Noted Date Comments Onel Inhibitors 10/22/2023 To be avoided due to bilateral renal artery stenosis and worsening kidney function when on previously Prednisone 04/07/2023 documented as of this encounter (statuses as of 08/18/2024) Medications EQ Aspirin Adult Low Dose 81 MG Oral Tablet Delayed ReleaseIndications :Coronary artery disease involving [place] coronary artery of [place] heart without angina pectoris Take 1 Tablet [...] OF PACKAGE 01/18/20 Active Vitamin D (Ergocalciferol) 35258 UNIT Oral Capsule Take by mouth. Activ [...] Oral Tablet (Lipitor)Indicatio ns:Coronary artery disease involving [place] coronary artery of [place] heart without angina pectoris,Dyslipide aracely, goal LDL below 70 Take 1 Tablet by mouth in the morning. 90 Tablet 3 07/11/20 24 Active Albuterol Sulfate 0.63 MG/3ML Inhalation Nebulization Solution (Accuneb) Inhale 1 Vial via nebulizer every 6 hours as needed for Wheezing or Shortness of Breath. 360 mL 08/01/20 24 Active documented as of this encounter (statuses as of 08/18/2024) Active Problems Problem Noted Date Diagnosed Date COPD, group D, by GOLD 2017 classification 11/29 Overview: Per COPD GOLD Classification Pulmonary emphysema 10/26/2023 Renal artery stenosis 10/22/2023 Hypertensive heart disease w ith chronic diastolic congestive heart failure 10/21/2023 Coronary artery disease invo lving [place] heart without angina pectoris 06/08/2023 Hepatic steatosis [...] as of this encounter (statuses as of 08/18/2024) Resolved Problems Problem Noted Date Diagnosed Date [...] as of this encounter (statuses as of 08/18/2024) Social History Tobacco Use Types Packs/Day Years [...] Sign Reading Time Taken Comments Blood Pressure - - Pulse - - Temperature - - Respiratory Rate - - Oxygen Saturation - - Inhaled Oxygen Concentration - - Weight 107.5 kg (237 lb) 08/15/2024 8:12 PM EST Height 182.9 cm (6') 08/15/2024 8:12 PM EST Body Mass Index 32.14 08/15/2024 8:12 PM EST documented in this encounter Progress Notes * Quin Connor MD - 08/18/2024 11:03 PM EST [facility] Split Night Polysomnogram - Physician Report Name: Garret Jimenez MR#: [id number] Date of : 1965 Study Date: 08/15/2024 Report Date: 08/18/2024 Study Name: Adult Acquisition ID: [id number] Referring Physician: Jeanette Michael Ordering Physician: Jeanette Michael Interpreting Sleep Physician: Quin Connor MD Signature: Electronically Signed Testing Location: [facility] Impression Patient was unable to sleep during this study. Abnormal sleep architecture likely due to first night effect. Recommendations: Return for another sleep study with a sleep aid as needed. Weight loss under medical supervision. Advise patient not to drive nor engage in activities that require full attention while drowsy. Clinical Background: 59 year old Male with suspected sleep disordered breathing. Weight 237.0 lbs & BMI 32.1 lb/in [place] Sleepiness Scale 12/12 Neck Size 19.0 inches Comorbidities: INITIAL DIAGNOSTIC ANALYSIS: Lights Off: 9:46:14 PM Lights On: 5:51:50 AM . Sleep Architecture: Minutes TRT - Total recording time 485.6 Sleep latency SPT - Sleep Period Time 0.0 WASO - Wake time after sleep onset 0.0 TST - Total Sleep Time 0.0 R Sleep latency minus wake Sleep efficiency 0.0% TST Stage N1 0.0 % Stage N2 0.0 % Stage N3 0.0 % Stage R 0.0 0.00% Respiratory Event Summary * TST NREM REM ~Supine Supine Prone Left Right Apneas Count 0.00 Index 0.00 Hypopneas (3%) Count 0.00 Index 0.00 Hypopneas (4%) Count Index AHI (3%) Count 0.00 Index 0.00 AHI (4%) Count Index RDI (3%) (Yarn Polishing Machine Operator+All Hyp+RERA) Count 0.00 Index 0.00 RDI (4%) (Yarn Polishing Machine Operator+All Hyp+RERA) Count Index Respiratory Related Arousal Count 0.00 Index 0.00 Oxygen Desaturation Count 0 0 0 Index Arousals: Index Respiratory related 0 0.0/hr PLM related 0 0.0/hr Spontaneous 0 0.0/hr Total 0 0.0/hr Movement Events: Index Total PLMs 0 N/A/hr PLMs associated with arousals 0 N/A/hr Respiratory Events: Index Central /hr Obstructive /hr Mixed /hr Hypopneas /hr RERA's /hr AHI = Apneas + Hypopneas /hr RDI = Apneas + Hypopneas +RERA's /hr No episodes of periodic breathing were found. Snoring was recorded. Oxygenation: Min. Sat. Avg. Sat. Awake - 93% N sleep - % REM - % Overall 0% 93% Time spent <=88%: 0.00 minutes. Supplemental O2 was not utilized. Body Position Analysis Supine Right Left Side Prone Vertical Total Sleep Time (min.) 0.00 Total Sleep Time (%) 0.00 0.00 0.00 0.00 0.00 0.00 Total Sleep Time REM (min.) 0.00 Total Sleep Time NREM (min.) 0.00 Total Sleep Period (min.) 0.00 Oximetry Data Min SpO2 value TST: 0% Average SpO2 (TIB): 93% Min SpO2 w/ Respiratory Event: % Average SpO2 (TST): Desaturations #: 0 Desaturation Index: /hr Oximetry Distribution WK NREM REM TIB TST Min % Min % Min % Min % Min % >90% 407.60 83.94 0.00 0.00 0.00 0.00 407.60 83.94 0.00 0.00 80 - 89% 65.10 13.41 0.00 0.00 0.00 0.00 65.10 13.41 0.00 0.00 70 - 79% 0.00 0.00 0.00 0.00 0.00 0.00 0.00 0.00 0.00 0.00 60 - 69% 0.00 0.00 0.00 0.00 0.00 0.00 0.00 0.00 0.00 0.00 50 - 59% 0.00 0.00 0.00 0.00 0.00 0.00 0.00 0.00 0.00 0.00 <=88%* 32.9 6.8 0.0 0.0 0.0 0.0 32.9 6.8 0.00 0.00 Fail (min) 12.9 2.66 0.0 0.00 0.0 0.00 12.9 2.66 0.00 0.00 ETCO2: SPT Max EtCO2 2 Sleep period time with EtCO2 above 50% (minutes) 0.0 Artifact recorded: Cardiac Events: Min bpm Average Pulse Rate During Sleep (TST): bpm Highest Pulse Rate During Sleep (TST): bpm Highest Pulse Rate During Recording (TIB): 98 bpm SUBSEQUENT POSITIVE AIRWAY TITRATION POLYSOMNOGRAM: CPAP was started via a Medium ResMed N30 Nasal Mask interface at 7cmH2O cm H2O. Lights Off: 9:46:14 PM Lights On: 5:51:50 AM Sleep Architecture: Minutes TRT - Total recording time 485.6 Sleep latency SPT - Sleep Period Time 0.0 WASO - Wake time after sleep onset 0.0 TST - Total Sleep Time 0.0 R Sleep latency minus wake Sleep efficiency 0.0% TST Stage N1 0.0 % Stage N2 0.0 % Stage N3 0.0 % Stage R 0.0 0.00% Arousals: Index Respiratory related 0 0.0/hr PLM related 0 0.0/hr Spontaneous 0 0.0/hr Total 0 0.0/hr Respiratory Events: Index Central /hr Obstructive /hr Mixed /hr Hypopneas /hr RERA's /hr AHI = Apneas + Hypopneas /hr RDI = Apneas + Hypopneas +RERA's /hr Oxygenation: Min. Sat. Avg. Sat. Awake - 93% N sleep - % REM - % Overall 0% 93% Time spent =< 89%: minutes. Supplemental O2 was not utilized. Cardiac Events: Min bpm Average Pulse Rate During Sleep (TST): bpm Highest Pulse Rate During Sleep (TST): bpm Highest Pulse Rate During Recording (TIB): 98 bpm . . Technical & Digital Specifications for the Recording and Scoring of Sleep and Associated Events: A standard polysomnogram with and/or without positive airway pressure (PAP) was performed monitoring EEG, EOG, EMG (chin and leg derivations), oxygen saturation, body position, digital video, respiratory effort and airflow. The Sleep Stage and Event scoring was based on the AASM Manual for the Scoring of Sleep and Associated Events, Version 2.5. Apnea in adults is scored when there is a drop in the peak signal excursion by >= 90% of pre-event baseline using an oronasal thermal sensor (diagnostic study), PAP device flow (titration study), or an alternative apnea sensor, for >= 10 seconds. Hypopnea in an AHI-4% in adults is scored when the peak signal excursions drop by >= 30% of pre-event baseline using nasal pressure (diagnostic study), PAP device flow (titration study), or an alternative hypopnea sensor, for >= 10 seconds in association with a >4% arterial oxygen desaturation from pre-event baseline. Hypopnea in an AHI- 3% in adults is scored when the peak signal excursions drop by >= 30% of pre- event baseline using nasal pressure (diagnostic study), PAP device flow (titration study), or an alternative hypopnea sensor, for >= 10 seconds in association with a >3% arterial oxygen desaturation from pre-event baseline or in association with an arousal. Respiratory effort-related arousals (RERA's) are defined as a sequence of breaths lasting at least 10 seconds characterized by increasing respiratory effort or flattening of the nasal pressure waveform leading to an arousal from sleep when the sequence of breaths which does not meet criteria for an apnea or hypopnea. Apnea Hypopnea Index (AHI) is defined as the number of apneas and hypopneas occurring in an hour of sleep. Respiratory Disturbance Index (RDI) is defined as the number of apneas, hypopneas, and RERA's occurring in an hour of sleep. . Comments / Artifact / Quality of the Study The polysomnographic recording quality was satisfactory for interpretation. No significant artifacts were found. . Quin Connor MD YONATAN Board Certified Internal/Sleep Medicine [facility] documented in this encounter Nursing Notes * [facility] Harper[facility] - 08/15/2024 8:13 PM EST No new cough, SOB, flu like symptoms, loss of taste, or loss of smell. No exposure to COVID-19 or flu in the last 14 days. 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 HST diagnosed sleep apnea. No previous therapy. Current oxygen supplement as needed. No sleep aides prior to PSG. Patient has no defibrillator, pacemaker, cochlear implant, or any devices affected by a magnet. [place] Sleepiness Scale How likely are you to dose off or fall asleep in the following situations, in contrast to feeling just tired? This refers to your usual way of life in recent times. Even if you have not done some of htese things recently, try to work out how they would have affected you. Use the following scale to choose the most appropriate number for each situation: Sitting and reading 1= Slight chance of dozing Watching TV 1= Slight chance of dozing Sitting, inactive in a public place (e.g. theater, meeting) 0= Would never doze As a passenger in a car for an hour without a break 0= Would never doze Lying down to rest in the afternoon when circumstances permit 1= Slight chance of dozing Sitting and talking to someone 0= Would never doze Sitting quietly after a lunch without alcohol 0= Would never doze In a car, while stopped for a few minutes in traffic 0= Would never doze Total Score: (Between 0 and 24) 3 Test: Completed Nocturnal Polysomnogram/NPSG with CPAP [place] total score: 12/12 Neck Circumference: 19 inches Patient received Drowsy Driving Information: yes The patient chose the home care company [employer] (oxygen customer) Baseline SpO2 96% on 7cmH2O. Baseline HR 73bpm. There was no sleep onset. Patient was awake for theentire study. No leg movement. No snore. No respiratory events. No cardiac arrhythmia. 1 bathroom break. Patient prefers to sleep on his sides. CPAP initiated at 7cmH2O because at 5 he felt he wasn't getting enough air. After about 15 minutes,he felt he needed more air and pressure was increased to 9. When he appeared to be struggling with CPAP - removing mask and asking if he should be breathing so deeply - pressure was reduced to 7 without discussing with patient. About 90 minutes later, he requested more air because he felt he wasn'tgetting enough. Pressure increased to 9 again. After 6 hours had been recorded, offered to end the study and allow patient to sleep without wires and mask prior to driving home. He stated he wanted to continue to try to sleep with the mask. documented in this encounter Plan of Treatment Upcoming Encounters Date Type Department Care Team (Late st Contact Info) Description 12/19/2024 11:40 AM EDT Office Visit [facility] [address] [facility] [phone] Omer Wayne MD [address] [facility] [place] [address] 01/11/2025 8:40 AM EDT Office Visit Pulmonary Medicine, [facility] [address] [facility] [place] [address] Ronny Virk MD [address] [facility] [place] [address] Scheduled Orders Name Type Priority Associated Diagnoses Orde r Schedule SLEEP STUDY, W/ CPAP (TREATMENT SETTINGS) Procedures Routine Obstructive sleep apnea Nocturnal hypoxemia Ordered: 01/12/2024 Health Maintenance Due Date Last Done Comments [...] this encounter Medical Devices Implanted Type Area Shipping And Receiving Supervisor Device Identifier Shelf Expiration Date Model / Serial / Lot Mesh Plug Prefix Lg [id number] - [id number] Implanted:Qty: 1 on 03/12/2018 by Donovan Raza MD at OR [facility] Right: Groin CR BARD : DAVOL 10/21/2018 [id number] / / [id number] documented as of this encounter Visit Diagnoses Diagnosis Hypersomnolence- Primary Hypersomnia, unspecified documented in this encounter Care Teams Composite Engineer Relationship Specialty Start Date End Date Omer Wayne MD [address] [place] [address] PCP - General 02/19/05 documented as of this encounter
--- OUTSIDE RECORDS SUMMARY | 2024-10-18 06:40 | External Medical Summary | Summary of Care ---
Author Name Unknown Organization [facility] Address [address] [place] [address] Phone [phone] Care Team Providers Care Finance Consultant Name Role Phone Omer De La Rosa MD Primary Care Provider [phone]- [phone] Reason for Visit * Reason Onset Date Comments Medication Refill 07/11/2024 Encounter Details Date Type Department Care Team (Late st Contact Info) Description 07/11[facility]24 [facility] [address] [facility] [place] [address] Omer De La Rosa MD [address] [place] [address] Medication Refill Allergies Active Allergy Reactions Criticality Noted Date Comments Onel Inhibitors 10/22/2023 To be avoided due to bilateral renal artery stenosis and worsening kidney function when on previously Prednisone 04/07/2023 documented as of this encounter (statuses as of 07/15/2024) Medications Medication Sig Dispensed Refills Start Date End Date Status EQ Aspirin Adult Low Dose 81 MG Oral Tablet Delayed ReleaseIndications: Coronary artery disease involving [place] coronary artery of [place] heart without angina pectoris Take 1 Tablet [...] OF PACKAGE 01/18/2024 Active Vitamin D (Ergocalciferol) 99042 UNIT Oral Capsule Take by mouth. Active Carvedilol 12.5 MG Oral Tablet (Coreg)Indications: Hypertensive heart disease with chronic diastolic congestive heart failure (HCC) 3 tabs by mouth twice per day 540 Tablet 3 01/21/2024 Active Furosemide 20 MG Oral Tablet (Lasix)Indications: Hypertensive left ventricular hypertrophy, without heart failure Take 1 Tablet by mouth in the morning. 90 Tablet 3 01/21/2024 Active Folic Acid 1 MG Oral TabletIndications:A lcohol ingestion, 1-4 drinks per day Take 1 Tablet by mouth in the morning. 90 Tablet 3 01/21/2024 Active Potassium Chloride Alba ER 20 MEQ Oral Tablet Extended ReleaseIndications: Hypertensive left ventricular hypertrophy, without heart failure Take 1 Tablet by mouth in the morning. 90 Tablet 3 06/14/2024 Active Sertraline HCl 50 MG Oral Tablet (Zoloft) Take 1 Tablet by mouth in the morning. 90 Tablet 3 06/14/2024 Active Trelegy Ellipta 200-62.5-25 MCG/ACT Aerosol Powder Breath Activated (Fluticasone-Umecli dinium-Vilanterol)I ndications:COPD, group D, by GOLD 2017 classification ([facility]) Inhale 1 Puff by mouth in the morning. 180 Blister Dosing Unit 3 07/05/2024 Active Ventolin HFA 108 (90 Base) MCG/ACT Inhalation Aerosol Solution Inhale 2 Puffs by mouth every 4 hours as needed for Dyspnea or Wheezing. 18 g 3 07/05/2024 10/03/19 25 Active Azithromycin 250 MG Oral Tablet (Zithromax Z-Oswaldo) Please take 500 mg by mouth on day one, followed by 250 mg by mouth for four days. 6 Tablet 07/05/2024 Active Albuterol Sulfate 0.63 MG/3ML Inhalation Nebulization Solution (Accuneb) Inhale 1 Vial via nebulizer every 6 hours as needed for Wheezing or Shortness of Breath. 360 mL 07/05/2024 08/04/20 24 Active Atorvastatin Calcium 80 MG Oral Tablet (Lipitor)Indication s:Coronary artery disease involving [place] coronary artery of [place] heart without angina pectoris,Dyslipidem ia, goal LDL below 70 Take 1 Tablet by mouth in the morning. 90 Tablet 3 07/11/2024 Active Atorvastatin Calcium 80 MG Oral Tablet (Lipitor)Indication s:Coronary artery disease involving [place] coronary artery of [place] heart without angina pectoris,Dyslipidem ia, goal LDL below 70 Take 1 Tablet by mouth in the morning. 90 Tablet 3 01/21/2024 07/11/20 24 Discontinu ed(Refill) documented as of this encounter (statuses as of 07/15/2024) Active Problems Problem Noted Date Diagnosed Date COPD, group D, by GOLD 2017 classification 11/29 Overview: Per COPD GOLD Classification Pulmonary emphysema 10/26/2023 Renal artery stenosis 10/22/2023 Hypertensive heart disease w ith chronic diastolic congestive heart failure 10/21/2023 Coronary artery disease invo lving [place] heart without angina pectoris 06/08/2023 Hepatic steatosis [...] as of this encounter (statuses as of 07/15/2024) Resolved Problems Problem Noted Date Diagnosed Date [...] as of this encounter (statuses as of 07/15/2024) Social History Tobacco Use Types Packs/Day Years [...] encounter Miscellaneous Notes * Telephone Encounter - Florence Frank CPhT - 07/15/2024 9:21 AM EDT pt calling to check on status of refill request Thank you, Florence Frank Rf Test Technician II [facility] ([facility]) (formerly Telepharmacy) 07/15/2024 9:22 AM * Telephone Encounter - Omer De La Rosa MD - 07/11/2024 4:34 PM EDTSigned Prescriptions: Disp Refills Atorvastatin Calcium 80 MG Oral Tablet (Li*90 Tab*3 Sig: Take 1 Tablet by mouth in the morning.Authorizing Provider: OMER DE LA ROSA * Telephone Encounter - Tana Durand CPhT - 07/11/2024 8:53 AM EDT Pt calling for refills for medication Atorvastatin Calcium 20 MG Oral Tablet (Lipitor) medication was prescribe at [facility] Pt will like PCP to take over of medication please advise caller can be reached [phone]. E [facility] [address] [address] Thank you, Tana Durand CPhT Mold Unloader II [facility] ([facility]) (Formerly Telepharmacy) 07/11/2024,8:56 AM documented in this encounter Plan of Treatment Upcoming Encounters Date Type Department Care Team (Late st Contact Info) Description 08/15/2024 8:30 PM EST PulmDiagnostic Sleep Lab, [facility] [address] [place] [address] [facility], Sleep Med Night Sleep [address] [place] [address] 12/19/2024 11:40 AM EDT Office Visit [facility] [address] [facility] [address] [facility] [address] Omer De La Rosa MD [address], [place] [id number] 01/11/2025 8:40 AM EDT Office Visit Pulmonary Medicine, [facility] [address] [facility] [place] [address] Ronny Virk MD [address] [facility] [address] Health Maintenance Due Date Last Done Comments [...] this encounter Medical Devices Implanted Type Area Wet Mix Operator Device Identifier Shelf Expiration Date Model / Serial / Lot Mesh Plug Prefix [id number] [id number] - [id number] Implanted:Qty: 1 on 03/12/2018 by Donovan Raza MD at OR [facility] Right: Groin CR BARD : DAVOL 10/21/2018 [id number] / / [id number] documented as of this encounter Visit Diagnoses Diagnosis Coronary artery disease involving [place] coronary artery of [place] heart without angina pectoris Dyslipidemia, goal LDL below 70 Other and unspecified hyperlipidemia documented in this encounter Care Teams Finance Consultant Relationship Specialty Start Date End Date Omer De La Rosa MD [address] [place] [address] PCP - General 02/19/05 documented as of this encounter
--- OUTSIDE RECORDS SUMMARY | 2024-10-18 06:40 | External Medical Summary | Summary of Care ---
Author Name Unknown Organization [facility] Address [address] [place] [address] Phone [phone] Care Team Providers Care Port Patrol Officer Name Role Phone Omer De La Rosa MD Primary Care Provider [phone]- [phone] Reason for Visit * Reason Onset Date Comments Medication Refill 07/11/2024 Encounter Details Date Type Department Care Team (Late st Contact Info) Description 07/11/2024 [facility] [address] [facility] [place] [address] Omer De La Rosa MD [address] [place] [address] Medication Refill Allergies Active Allergy Reactions Criticality Noted Date Comments Onel Inhibitors 10/22/2023 To be avoided due to bilateral renal artery stenosis and worsening kidney function when on previously Prednisone 04/07/2023 documented as of this encounter (statuses as of 07/11/2024) Medications Medication Sig Dispensed Refills Start Date End Date Status EQ Aspirin Adult Low Dose 81 MG Oral Tablet Delayed ReleaseIndications: Coronary artery disease involving hoh coronary artery of hoh heart without angina pectoris Take 1 Tablet [...] OF PACKAGE 01/18/2024 Active Vitamin D (Ergocalciferol) 79181 UNIT Oral Capsule Take by mouth. Active [...] ndications:COPD, group D, by GOLD 2017 classification ([facility]) Inhale 1 Puff by mouth [...] Oral Tablet (Lipitor)Indication s:Coronary artery disease involving hoh coronary artery of hoh heart without angina pectoris,Dyslipidem ia, goal LDL below 70 Take 1 Tablet by mouth in the morning. 90 Tablet 3 07/11/2024 Active Atorvastatin Calcium 80 MG Oral Tablet (Lipitor)Indication s:Coronary artery disease involving hoh coronary artery of hoh heart without angina pectoris,Dyslipidem ia, goal LDL below 70 Take 1 Tablet by mouth in the morning. 90 Tablet 3 01/21/2024 07/11/20 24 Discontinu ed(Refill) documented as of this encounter (statuses as of 07/11/2024) Active Problems Problem Noted Date Diagnosed Date COPD, group D, by GOLD 2017 classification 11/29 Overview: Per COPD GOLD Classification Pulmonary emphysema 10/26/2023 Renal artery stenosis 10/22/2023 Hypertensive heart disease w ith chronic diastolic congestive heart failure 10/21/2023 Coronary artery disease invo lving hoh heart without angina pectoris 06/08/2023 Hepatic steatosis [...] as of this encounter (statuses as of 07/11/2024) Resolved Problems Problem Noted Date Diagnosed Date [...] as of this encounter (statuses as of 07/11/2024) Social History Tobacco Use Types Packs/Day Years [...] encounter Miscellaneous Notes * Telephone Encounter - Omer De La [...] Oral Tablet (Lipitor) medication was prescribe at [place] [facility] of medication Pt will like PCP to take over of medication please advise caller can be reached [phone]. [facility] [address] [place] [address] Thank you, Tana Durand CPhT Swaging Machine Adjuster II [facility] ([facility]) (Formerly Telepharmacy) 07/11/2024,8:56 AM documented in this encounter Plan of Treatment Upcoming Encounters Date Type Department Care Team (Late st Contact Info) Description 08/15/2024 8:30 PM EST PulmDiagnostic Sleep Lab, [facility] [address] [place] [address] [facility], Sleep Med Night Sleep [address] [address] 12/19/2024 11:40 AM EDT Office Visit [place] [address] [place] [facility] [place] [id number] Omer De La Rosa MD [address] [place] [address] 01/11/2025 8:40 AM EDT Office Visit Pulmonary Medicine, [facility] [address] [place] [address] Ronny Virk MD [address] [place] [place] [address] Health Maintenance Due Date Last Done Comments [...] this encounter Medical Devices Implanted Type Area Senior Nurse Manager Device Identifier Shelf Expiration Date Model / Serial / Lot Mesh Plug Prefix Lg [id number] - [id number] Implanted:Qty: 1 on 03/12/2018 by Donovan Raza MD at OR [facility] [address] Right: Groin CR BARD : DAVOL 10/21/2018 [id number] / / [id number] documented as of this encounter Visit Diagnoses Diagnosis Coronary artery disease involving hoh coronary artery of hoh heart without angina pectoris Dyslipidemia, goal LDL below 70 Other and unspecified hyperlipidemia documented in this encounter Care Teams Port Patrol Officer Relationship Specialty Start Date End Date Omer De La Rosa MD [address] [place] [address] PCP - General 02/19/05 documented as of this encounter
--- OUTSIDE RECORDS SUMMARY | 2024-10-18 06:40 | External Medical Summary | Summary of Care ---
Author Name Unknown Organization [facility] Address [address] [facility] [place] [address] Phone [phone] Care Team Providers Care Skip Tracer Name Role Phone Omer Wayne MD Primary Care Provider [phone]- [phone] Encounter Details Date Type Department Care Team (Late st Contact Info) Description 06/21/2024 Orders Only PATIENT PORTAL DO NOT DELETE THIS DEPT USED BY [place] [id number] Allergies Active Allergy Reactions Criticality Noted Date Comments Onel Inhibitors 10/22/2023 To be avoided due to bilateral renal artery stenosis and worsening kidney function when on previously Prednisone 04/07/2023 documented as of this encounter (statuses as of 06/21/2024) Medications Medication Sig Dispensed Refills Start Date End Date Status EQ Aspirin Adult Low Dose 81 MG Oral Tablet Delayed ReleaseIndications:C oronary artery disease involving [place] coronary artery of [place] heart without angina pectoris Take 1 Tablet by mouth daily. In the morning. 90 Tablet 3 03/11/2023 Active Baclofen 10 MG Oral Tablet (Lioresal) Take 1 Tablet by mouth in the morning and 1 Tablet at noon and 1 Tablet before bedtime. 90 Tablet 1 06/08/2023 Active Cyanocobalamin 1000 MCG Oral Capsule Take by mouth. Acti ve Thiamine HCl 100 MG Oral Tablet Take 1 Tablet by mouth in the morning. Active Ipratropium-Albutero l 0.5-2.5 (3) MG/3ML Inhalation Solution (Duoneb) Inhale 3 mL via nebulizer every 6 hours as needed for Shortness of Breath. 180 mL 3 10/09/2023 Active busPIRone HCl 5 MG Oral Tablet [...] for Pain, Severe. 30 Tablet 01/01/2024 Active oxyCODONE HCl 5 MG Oral Tablet (Oxy IR) Take 1 Tablet by mouth every 6 hours as needed. 01/14/2024 Active methylPREDNISolone 4 MG Oral Tablet Therapy Pack (Medrol Dosepack) TAKE BY MOUTH DIRECTED ON INSIDE OF PACKAGE 01/18/2024 Active Vitamin D (Ergocalciferol) 94754 UNIT Oral Capsule Take by mouth. Active Trelegy Ellipta 200-62.5-25 MCG/ACT Aerosol Powder Breath Activated (Fluticasone-Umeclid inium-Vilanterol)Ind ications:COPD, group D, by GOLD 2017 classification ([facility]) Inhale 1 Puff by mouth in the morning. 180 Blister Dosing Unit 3 01/21/2024 Active Carvedilol 12.5 MG Oral Tablet (Coreg)Indications:H ypertensive heart disease with chronic diastolic congestive heart failure (HCC) 3 tabs by mouth twice per day 540 Tablet 3 01/21/2024 Active Furosemide 20 MG Oral Tablet (Lasix)Indications:H ypertensive left ventricular hypertrophy, without heart failure Take 1 Tablet by mouth in the morning. 90 Tablet 3 01/21/2024 Active Atorvastatin Calcium 80 MG Oral Tablet (Lipitor)Indications :Coronary artery disease involving [place] coronary artery of [place] heart without angina pectoris,Dyslipidemi a, goal LDL [...] the morning. 90 Tablet 3 06/14/2024 Active Hospital, Clinic, or Other Facility Administered Medication Ordered Dose Route Frequency Start Date End Date Status Albuterol Sulfate (Proventil) (2.5 MG/3ML) 0.083% inhalation solution 2.5 mgIndications:COPD, group D, by GOLD 2017 classification ([facility]) 2.5 mg NEBULIZER ONCE PRN 01/04/2024 Acti ve documented as of this encounter (statuses as of 06/21/2024) Active Problems Problem Noted Date Diagnosed Date COPD, group D, by GOLD 2017 classification 11/29 Overview: Per COPD GOLD Classification Pulmonary emphysema 10/26/2023 Renal artery stenosis 10/22/2023 Hypertensive heart disease w ith chronic diastolic congestive heart failure 10/21/2023 Coronary artery disease invo lving [place] heart without angina pectoris 06/08/2023 Hepatic steatosis [...] as of this encounter (statuses as of 06/21/2024) Resolved Problems Problem Noted Date Diagnosed Date [...] as of this encounter (statuses as of 06/21/2024) Social History Tobacco Use Types Packs/Day Years [...] Care Team (Late st Contact Info) Description 07/05/2024 8:20 AM EDT Office Visit Pulmonary Medicine, [facility] [address] [facility] [place] [address] Ronny Virk MD [address] [place] [id number] 08/15/2024 8:30 PM EST PulmDiagnostic Sleep Lab, [facility] [address] [place] [address] [facility], Sleep Med Night Sleep [address] [place] [address] 12/19/2024 11:40 AM EDT Office Visit [facility] [address] [place] [address] Omer Wayne MD [address] [place] [address] Health Maintenance Due Date Last [...] ASSESSMENT COMPLETED IN PAST YEAR FOR COPD 06/14/2025 06/14/2024 Albumin/Creatinine Ratio 10/28/2026 10/28/2023, 06/2 02/2023 Diabetes [...] this encounter Medical Devices Implanted Type Area Embossing Toolsetter Device Identifier Shelf Expiration Date Model / Serial / Lot Mesh Plug Prefix [id number] [id number] - [id number] Implanted:Qty: 1 on 03/12/2018 by Donovan Raza MD at [facility] Right: Groin CR BARD : DAVOL 10/21/2018 [id number] / / [id number] documented as of this encounter Care Teams Skip Tracer Relationship Specialty Start Date End Date Omer Wayne MD [address] [place] [address] PCP - General 02/19/05 documented as of this encounter
--- OUTSIDE RECORDS SUMMARY | 2024-10-18 06:40 | External Medical Summary | Summary of Care ---
Author Name Unknown Organization [facility] [address] [address] Phone [phone] Care Team Providers Care Power Technician Name Role Phone Omer Wayne MD Primary Care Provider [phone] Reason for Referral * (Within 10 days (routine)) - Authorized Specialty Diagnoses / Procedures Referred By Contac t Referred To Contact Radiology Diagnoses History of tobacco abuse Procedures LUNG CANCER SCREENING PROGRAM REFERRAL Ronny Virk MD [address] [place] [address] Referral ID Status Reason Start Date Expiration Date V isits Requested Visits Authorized [id number] Authorized 07/05/2024 999 999 Reason for Visit * Reason Comments Follow Up Return . COPD. Emphy sema. Trouble swollening . A lot phlegm silver in color. And is very SOB. As day goes on and gets rid of phlegm. His swollening gets better. Has home sleep test . Was advised had SAROJ. Encounter Details Date Type Department Care Team (Latest Contact Info) Description 07/05/2024 8:20 AM EDT Office Visit Pulmonary Medicine, [facility] [address] [facility] [place] [address] Ronny Virk MD [address] [place] [phone] History of tobacco abuse*; COPD, group D, by GOLD 2017 classification ([facility]) Allergies Active Allergy Reactions Criticality Noted Date Comments Onel Inhibitors 10/22/2023 To be avoided due to bilateral renal artery stenosis and worsening kidney function when on previously Prednisone 04/07/2023 documented as of this encounter (statuses as of 07/05/2024) Medications Medication Sig Dispensed Refills Start Date End Date Status EQ Aspirin Adult Low Dose 81 MG Oral Tablet Delayed ReleaseIndications: Coronary artery disease involving [place] coronary artery of [place] heart without angina pectoris Take 1 Tablet [...] OF PACKAGE 01/18/2024 Active Vitamin D (Ergocalciferol) 24480 UNIT Oral Capsule Take by mouth. Active [...] Oral Tablet (Lipitor)Indication s:Coronary artery disease involving [place] coronary artery of [place] heart without angina pectoris,Dyslipidem ia, goal LDL [...] ndications:COPD, group D, by GOLD 2017 classification ([facility]) Inhale 1 Puff by mouth in the [...] Breath. 360 mL 07/05/2024 08/04/20 24 Active Ipratropium-Albuter ol 0.5-2.5 (3) MG/3ML Inhalation Solution (Duoneb) Inhale 3 mL via nebulizer every 6 hours as needed for Shortness of Breath. 180 mL 3 10/09/2023 07/05/20 24 Discontinu ed(Medicat ion List Clean Up) Trelegy Ellipta 200-62.5-25 MCG/ACT Aerosol Powder Breath Activated (Fluticasone-Umecli dinium-Vilanterol)I ndications:COPD, group D, by GOLD 2017 classification ([facility]) Inhale 1 Puff by mouth in the morning. 180 Blister Dosing Unit 3 01/21/2024 07/05/20 24 Discontinu ed(Refill) Hospital, Clinic, or Other Facility Administered Medication Ordered Dose Route Frequency Start Date End Date Status Albuterol Sulfate (Proventil) (2.5 MG/3ML) 0.083% inhalation solution 2.5 mgIndications:COPD, group D, by GOLD 2017 classification ([facility]) 2.5 mg NEBULIZER ONCE PRN 01/04/2024 4 Discontinued documented as of this encounter (statuses as of 07/05/2024) Active Problems Problem Noted Date Diagnosed Date COPD, group D, by GOLD 2017 classification 11/29 Overview: Per COPD GOLD Classification Pulmonary emphysema 10/26/2023 Renal artery stenosis 10/22/2023 Hypertensive heart disease w ith chronic diastolic congestive heart failure 10/21/2023 Coronary artery disease invo lving [place] heart without angina pectoris 06/08/2023 Hepatic steatosis [...] as of this encounter (statuses as of 07/05/2024) Resolved Problems Problem Noted Date Diagnosed Date [...] as of this encounter (statuses as of 07/05/2024) Social History Tobacco Use Types Packs/Day Years [...] No 01/01/2024 Does the household have a [place] source of income? (Household - for ages [...] Sign Reading Time Taken Comments Blood Pressure 98/62 07/05/2024 8:34 AM EDT Pulse 82 07/05/2024 8:34 AM EDT Temperature 36.2 C (97.1 F) 07/05/2024 8:34 AM ED T Respiratory Rate 16 07/05/2024 8:34 AM EDT Oxygen Saturation 95% 07/05/2024 8:35 AM EDT ra-amb Inhaled Oxygen Concentration - - Weight 107.5 kg (237 lb) 07/05/2024 8:34 AM EDT Height 182.9 cm (6') 07/05/2024 8:34 AM EDT Body Mass Index 32.14 07/05/2024 8:34 AM EDT documented in this encounter Patient Instructions * Patient Instructions* Ronny Virk MD - 07/05/2024 8:52 AM EDT Garret Jimenez [id number] Benefits of Quitting Smoking Why should I quit smoking? Smoking is bad for you and bad for others around you. Smoking causes cancer, heart attacks, hardening of the arteries, bronchitis, emphysema, cough, shortness of breath, wrinkles, and premature aging. It stains teeth and fingers, irritates the eyes, furs the tongue, and causes bad breath. People are living longer today than their parents did, so it makes sense to work on staying healthy and independent. One of the best ways to do this is to quit smoking. Benefits of quitting smoking It takes time to reverse many years' worth of smoking damage to your body, but some benefits of quitting smoking begin immediately. For example, you're financially better off on day one. Your health starts to improve right away, too, because you remove a former constant source of irritation from your lungs. People may comment that you no longer cough. Your blood circulation is likely to improve, so your hands and feet may feel warmer. Your teeth, breath, and fingers are no longer a turn-off. Benefits that you're less aware of also begin to occur. These include better resistance to colds and respiratory infections, less likelihood of major heart and circulation problems, less risk of high blood pressure or stroke, and less risk of developing cancer. The following arguments are often presented by smokers as justifications for their continuing to smoke: "I have to sometime, so I might as well enjoy life until then." True, but as a smoker you're much more likely to of a heart attack or cancer - neither of whichare very pleasant ways to go. "I'm only hurting myself." True, if you don't count the heartache and grief you may cause your loved ones by your early or permanent disability, or the damage of your smoke to others. "Lots of people who smoke live to ripe old ages in perfect health." True, but this is rare. Nearly all smokers have significant health problems. "Smoking is one of my pleasures. I don't want to quit." Smoking is associated with pleasure because the nicotine in tobacco is an addictive drug. Your bodywill continue to crave a regular supply until you can overcome the habit. Smoking is always a disadvantage to your health and that of your loved ones. "It's my choice and I choose to smoke." True. It is your choice. In a survey of older former smokers, more than 90% quit on their own because they decided to do so. The main reasons they gave for quitting were wanting to stay healthy, following health care provider's advice, regaining control of their lives, and making a loved one happy . [place] Department of Health Quit Line [facility] Cancer [facility] Free Quitline 5-590 QUIT NOW ( ) Your insurance company may also have more information and helpful programs to help you quit. Some may even help cover some of the costs. For example, [facility] members can call to find out about their smoking cessation program and medication coverage. Developed by Melissa Kline MD, for [employer]. Published by [employer]. Last modified: 2006-01-30 Last reviewed: 2005-11-19 This content is reviewed periodically and is subject to change as new health information becomes available. The information is intended to inform and educate and is not a replacement for medical evaluation, advice, diagnosis or treatment by a healthcare professional. Adult Health Advisor 2006.4 Index Adult Health Advisor 2006.4 Credits Copyright 2006 [employer] and/or one of its subsidiaries. All Rights Reserved. documented in this encounter Progress Notes * Ronny Virk MD - 07/05/2024 8:33 AM EDT Images from the original note were not included. 07/05/2024 Pulmonary Medicine, [facility] [address] [facility] [place] [address] [id number] Garret Jimenez 1965 male 59 year old Attending Physician Documentation: 59-year-old male COPD, PFT 04/2023, GOLD Stage 1 63 pack-year active smoker OSAS , undergoing Sleep Medicine evaluation Hyperlipidemia Depression History of lumbar spinal fusion surgery December 2023 Two LPM nasal cannula oxygen for nighttime use, semi compliant Current bronchodilator regimen: Trelegy, DuoNeb Historical LDCT monitoring status. No recent CT scan chest noted Physical Examination: Alert, awake, no distress Class 3 throat No JVD Adequate air entry, minimal wheezing, no dullness S1, S2, no murmur Soft, nontender abdomen No lower extremity edema Nonlateralizing Neuro examination Chest x-ray 11/19/23: Hyperinflated lung beck, no infiltrates Assessment C/w trelegy, Albuterol Z Pack LDCT referral Undergoing Sleep evaluation Albuterol Neb refills provided Smoking cessation counselling provided F/u 6 months Follow Up: Return in about 6 months (around 01/03/2025) for Clinic Visit. | For: Clinic Visit | Check-out note: 59-year-old male COPD OSAS Hyperlipidemia Depression Sixty-three pack-year active smoker Two LPM nasal cannula oxygen for nighttime use Current bronchodilator regimen: Trelegy, DuoNeb History of lumbar spinal fusion surgery December 2023 LDCT monitoring status restarted Chest x-ray 11/19/23: Hyperinflated lung beck, no infiltrates Assessment C/w trelegy, Albuterol Z Pack LDCT referral Undergoing Sleep evaluation Albuterol Neb refills provided Smoking cessation counselling provided Follow Up: Return in about 6 months (around 01/03/2025) for Clinic Visit. | For: Clinic Visit | Check-out note: F/u 6 months Ronny Virk MD Subjective CC: Chief Complaint Patient presents with Follow Up Return . COPD. Emphysema. Trouble swollening . A lot phlegm silver in color. And is very SOB. As day goes on and gets rid of phlegm. His swollening gets better. Has home sleep test . Was advised had SAROJ. HPI: Nursing Notes: Sera Vargas LPN 07/05/24 0842 Signed Chief Complaint Patient presents with Follow Up Return . COPD. Emphysema. Trouble swollening . A lot phlegm silver in color. And is very SOB. As day goes on and gets rid of phlegm. His swollening gets better. Has home sleep test . Was advised had SAROJ. Interm History/Respiratory Symptoms Cough: yes- silver phlegm Hemoptysis: no Sinus Symptoms: yes-drainage. Hospitalizations:COPD due to RSV-12/12. ED Trips: 05/29/24-fracture L rib. Triggers: smoke Nocturnal: sleeps with one pillow CPAP/BiPAP/O2: O2 2-3 L at night replace CPAP . Needs sleep study in lab. 08/15/24 [facility] Flu Vaccine: none Pneumovax: none Prevnar: none COVID 19: none. MMRC Dyspnea Scale = 1 (I get short of breath when hurrying on level ground or walking up a slight hill) Objective Filed Vitals: 07/05/24 0834 07/05/24 0835 BP: 98/62 Pulse: 82 Resp: 16 Temp: 36.2 C (97.1 F) TempSrc: Tympanic SpO2: 95% 95% Weight: 107.5 kg (237 lb) Height: 1.829 m (6') Exam: Const: No signs of acute distress present. Head/Face: Normal on inspection. Eyes: Conjunctivae clear. Pupils equal round and reactive to light. ENMT: Oropharynx: No erythema, exudate or masses. Posterior pharynx is normal. Neck: Supple and symmetric. Resp: Respiratory examination as outlined above CV: Rate is regular. Rhythm is regular. No heart murmur appreciated. Extremities: No edema of the lower limbs bilaterally. Skin: Skin is warm and dry. Neuro: Coordination normal. No involuntary movement. Psych: Patient's attitude is cooperative. Mood is normal. Affect is normal. Tests reviewed with the patient: No imaging results in the last 6 months Available Radiologic data was reviewed by me in PACS. The images were shown to the patient and findings were discussed with the patient. HOME MEDICATIONS: Albuterol Sulfate 0.63 MG/3ML Inhalation Nebulization Solution (Accuneb) Azithromycin 250 MG Oral Tablet (Zithromax Z-Oswaldo) Trelegy Ellipta 200-62.5-25 MCG/ACT Aerosol Powder Breath Activated (Pwgbyqnrdwn-Kkkpcqxlsdog-Pkndwleayv) Ventolin HFA 108 (90 Base) MCG/ACT Inhalation Aerosol Solution Potassium Chloride Alba ER 20 MEQ Oral Tablet Extended Release Sertraline HCl 50 MG Oral Tablet (Zoloft) Atorvastatin Calcium 80 MG Oral Tablet (Lipitor) Carvedilol 12.5 MG Oral Tablet (Coreg) Folic Acid 1 MG Oral Tablet Furosemide 20 MG Oral Tablet (Lasix) Baclofen 10 MG Oral Tablet (Lioresal) methylPREDNISolone 4 MG Oral Tablet Therapy Pack (Medrol Dosepack) oxyCODONE HCl 5 MG Oral Tablet (Oxy IR) Vitamin D (Ergocalciferol) 74677 UNIT Oral Capsule busPIRone HCl 5 MG Oral Tablet (Buspar) traMADol HCl 50 MG Oral Tablet (Ultram) Cyanocobalamin 1000 MCG Oral Capsule Thiamine HCl 100 MG Oral Tablet EQ Aspirin Adult Low Dose 81 MG Oral Tablet Delayed Release ROS: No reported history of Hemoptysis, Hematemesis, Melena No reported history of Dysuria, Hematuria, Flank Pain No reported history of chronic headache, seizures No reported history of Fall or trauma . No reported history of recent change in weight or appetite. Past Medical History: Diagnosis Date Dyslipidemia, goal LDL below 100 HTN, goal below 140/90 Rhinitis, chronic Past Surgical History: Procedure Laterality Date EGD, FLEXIBLE, DIAGNOSTIC 07/03/2021 reflux / ESOPHAGOGASTRODUODENOSCOPY (EGD), FLEXIBLE, TRANSORAL, DIAGNOSTIC performed by Martha Patterson MD at ENDOSCOPY [facility] FOOT/TOE SURGERY NEC Left 09/21/1993 Foot/Toes Surgery Proc Unlisted INFORMATION 09/21/2001 [id number] Dr Sagastume KNEE ARTHROSCOPY, DIAGNOSTIC Left 09/21/1988 Knee Scope,Diagnostic REPAIR INITIAL INGUINAL HERNIA REDUCIBLE AGE 5 OR MORE Right 03/12/2018 REPAIR INITIAL INGUINAL HERNIA REDUCIBLE AGE 5 OR MORE performed by Donovan Raza MD at OR [facility] Social History Socioeconomic History Marital status: Single Tobacco Use Smoking status: Former Current packs/day: [...] couple cups each am Sexual activity: Yes Social History Narrative job: [employer] employer: [employer] education: 12 service: no hobbies/interests: Used to do [employer] co transfusions: no exercise: work diet: no spiritism/judaism: shinto marital status: single children: 0 gc: 0 ggc: 0 pets: no exposure to violence/threats/abuse: no things to improve: no Social Determinants of Health Financial Resource Strain: Low Risk (01/01/2024) Financial Resource Strain Do you have any trouble paying for your medications, or do you think you might in the future? (Adult - for ages 18 years and over): No Food Insecurity: No Food Insecurity (01/01/2024) Food Insecurity Do you need food for this week? (Adult - for ages 18 years and over): No Transportation Needs: No Transportation Needs (01/01/2024) Transportation Needs Do you have trouble getting a ride to medical visits or work? (Adult - for ages 18 years and over):Never True Social Connections: Socially Integrated (01/01/2024) Social Connections How often do you feel lonely or isolated from those around you? (Adult - for ages 18 years and over): Never Housing Stability: Low Risk (01/01/2024) Housing Stability Do you currently live in a snf or have no steady place to sleep at night? (Adult - for ages 18 years and over): No Do you think you are at risk of becoming homeless? (Adult - for ages 18 years and over): No Family History Problem Relation Name Age of Onset Diabetes Father Heart Disorder Grandfather (Maternal) Cancer None Hypertension None Mental Disorder None Stroke None Review of patient's allergies indicates: Allergen Reactions Onel Inhibitors To be avoided due to bilateral renal artery stenosis and worsening kidney function when on previously Prednisone The following information was reviewed/discussed with the patient: Benefits & harms of screening Potential indications for follow-up testing, if/when necessary Risk of over-diagnosis, false positive findings, and radiation exposure Importance of cigarette smoking abstinence, if applicable Annual adherence to lung cancer screening Impact of comorbidities and ability or willingness to undergo diagnostic testing and/or treatment if something concerning is identified during screening. documented in this encounter Nursing Notes * Sera Vargas LPN - 07/05/2024 8:35 AM EDT Chief Complaint Patient presents with Follow Up Return . COPD. Emphysema. Trouble swollening . A lot phlegm silver in color. And is very SOB. As day goes on and gets rid of phlegm. His swollening gets better. Has home sleep test . Was advised had SAROJ. Interm History/Respiratory Symptoms Cough: yes- silver phlegm Hemoptysis: no Sinus Symptoms: yes-drainage. Hospitalizations:COPD due to RSV-12/12. ED Trips: 05/29/24-fracture L rib. Triggers: smoke Nocturnal: sleeps with one pillow CPAP/BiPAP/O2: O2 2-3 L at night replace CPAP . Needs sleep study in lab. 08/15/24 [facility] Flu Vaccine: none Pneumovax: none Prevnar: none COVID 19: none. MMRC Dyspnea Scale = 1 (I get short of breath when hurrying on level ground or walking up a slight hill) documented in this encounter Plan of Treatment Upcoming Encounters Date Type Department Care Team (Late st Contact Info) Description 08/15/2024 8:30 PM EST PulmDiagnostic Sleep Lab, [facility] [address] [facility] [place] [address] [facility], Sleep Med [facility] Sleep [address] [place] [address] 12/19/2024 11:40 AM EDT Office Visit [facility] [address] [phone] Omer Wayne MD [address] [facility] [place] [address] 01/11/2025 8:40 AM EDT Office Visit Pulmonary Medicine, [facility] [address] [place] [address] Ronny Virk MD [address] [place] [phone] Scheduled Orders Name Type Priority Associated Diagnoses Orde r Schedule LUNG CANCER SCREENING PROGRAM REFERRAL Medical Imaging Routine History of tobacco abuse Expected: 07/05/2024, Expires: 07/05/2026 Health Maintenance Due Date Last Done Comments [...] COPD 06/14/2025 06/14/2024 Albumin/Creatinine Ratio 10/28/2026 10/28/2023, 02/20 Diabetes Screening [...] this encounter Medical Devices Implanted Type Area Securities Research Analyst Device Identifier Shelf Expiration Date Model / Serial / Lot Mesh Plug Prefix Lg [id number] - [id number] Implanted:Qty: 1 on 03/12/2018 by Donovan Raza MD at OR [facility] Right: Ingrid ALVARADO BARD : MARIAMA 10/21/2018 [id number] / / [id number] documented as of this encounter Visit Diagnoses Diagnosis History of tobacco abuse- Primary Personal history of tobacco use, presenting hazards to health COPD, group D, by GOLD 2017 classification (HCC) documented in this encounter Care Teams Power Technician Relationship Specialty Start Date End Date Omer Wayne MD [address] [place] [facility] [place] [address] PCP - General 02/19/05 documented as of this encounter
--- OUTSIDE RECORDS SUMMARY | 2024-10-18 06:40 | External Medical Summary | Summary of Care ---
Author Name Unknown Organization [facility] Address [address] [place] [address] Phone [phone] Care Team Providers Care Operations Technician Name Role Phone Omer Wayne MD Primary Care Provider [phone] Reason for Visit * Reason Comments Follow Up 6 month return Would like to talk about depression and anxiety and has some areas on his L arm that will appear and then will go away Physical-Exam Encounter Details Date Type Department Care Team (Latest Contact Info) Description 06/14/2024 11:40 AM EDT [facility] Visit [facility] [address] [facility] [place] [address] Omer Wayne MD [address] [place] [address] Hypertensive left ventricular hypertrophy, without heart failure*; Edema, unspecified type; Dyslipidemia, goal LDL below 70; COPD, group D, by GOLD 2017 classification ([facility]); Coronary artery disease involving [place] coronary artery of un[place]ak[place]et heart without angina pectoris; Essential hypertension with goal blood pressure less than 140/90 Allergies Active Allergy Reactions Criticality Noted Date Comments Onel Inhibitors 10/22/2023 To be avoided due to bilateral renal artery stenosis and worsening kidney function when on previously Prednisone 04/07/2023 documented as of this encounter (statuses as of 07/04/2024) Medications Medication Sig Dispensed Refills Start Date End Date Status EQ Aspirin Adult Low Dose 81 MG Oral Tablet Delayed ReleaseIndications: Coronary artery disease involving [place] coronary artery of un[place] heart without angina pectoris Take 1 Tablet [...] Tablet by mouth in the morning. Active Ipratropium-Albuter ol 0.5-2.5 (3) MG/3ML Inhalation [...] OF PACKAGE 01/18/2024 Active Vitamin D (Ergocalciferol) 95036 UNIT Oral Capsule Take by mouth. Active Trelegy Ellipta 200-62.5-25 MCG/ACT Aerosol Powder Breath Activated (Fluticasone-Umecli dinium-Vilanterol)I ndications:COPD, group D, by GOLD 2017 classification ([facility]) Inhale 1 Puff by mouth in the morning. 180 Blister Dosing Unit 3 01/21/2024 Active Carvedilol 12.5 MG Oral Tablet (Coreg)Indications: [...] Oral Tablet (Lipitor)Indication s:Coronary artery disease involving [place] coronary artery of [place] heart without angina pectoris,Dyslipidem ia, goal LDL [...] the morning. 90 Tablet 3 06/14/2024 Active Gabapentin 300 MG Oral Capsule (Neurontin)Indicati ons:Chronic midline low back pain with left-sided sciatica Take 1 Capsule by mouth in the morning and 1 Capsule at noon and 1 Capsule before bedtime. 90 Capsule 11 03/27/2023 4 Discontinue d(Medicatio n List Clean Up) Potassium Chloride Alba ER 20 MEQ Oral Tablet Extended ReleaseIndications: Hypertensive left ventricular hypertrophy, without heart failure Take 1 Tablet by mouth in the morning. 90 Tablet 3 01/21/2024 4 Discontinue d(Refill) Hospital, Clinic, or Other Facility Administered Medication Ordered Dose Route Frequency Start Date End Date Status Albuterol Sulfate (Proventil) (2.5 MG/3ML) 0.083% inhalation solution 2.5 mgIndications:COPD, group D, by GOLD 2017 classification (HCC) 2.5 mg NEBULIZER ONCE PRN 01/04/2024 Acti ve documented as of this encounter (statuses as of 07/04/2024) Active Problems Problem Noted Date Diagnosed Date COPD, group D, by GOLD 2017 classification 11/29 Overview: Per COPD GOLD Classification Pulmonary emphysema 10/26/2023 Renal artery stenosis 10/22/2023 Hypertensive heart disease w ith chronic diastolic congestive heart failure 10/21/2023 Coronary artery disease invo lving unalakleet heart without angina pectoris 06/08/2023 Hepatic steatosis [...] as of this encounter (statuses as of 07/04/2024) Resolved Problems Problem Noted Date Diagnosed Date [...] as of this encounter (statuses as of 07/04/2024) Social History Tobacco Use Types Packs/Day Years [...] Sign Reading Time Taken Comments Blood Pressure 132/84 06/14/2024 11:43 AM EDT Pulse 71 06/14/2024 11:43 AM EDT Temperature 35.6 C (96 F) 06/14/2024 11: 43 AM EDT Respiratory Rate 17 06/14/2024 11:4 3 AM EDT Oxygen Saturation 98% 06/14/2024 11: 43 AM EDT Inhaled Oxygen Concentration - - Weight 108.1 kg (238 lb 6.4 oz) 024 11:43 AM EDT Height 182.9 cm (6') 06/14/2024 11:43 AM EDT Body Mass Index 32.33 06/14/2024 11:43 AM EDT documented in this encounter Progress Notes * Omer Wayne MD - 06/14/2024 12:02 PM EDT Subjective: Garret Jimenez is a 59 year old male here today for Chief Complaint Patient presents with Follow Up 6 month return Would like to talk about depression and anxiety and has some areas on his L arm that will appear and then will go away Physical-Exam Back pain is gone. Feet tingling better in feet but not gone Short of breath with about 10 yards wakes up 2-4 and cannot get back to sleep. Does see sleep med Broken rib after fall 3 weeks ago Past Medical History: Diagnosis Date Dyslipidemia, goal LDL below 100 HTN, goal below 140/90 Rhinitis, chronic Past Surgical History: Procedure Laterality Date EGD, FLEXIBLE, DIAGNOSTIC 07/03/2021 reflux / ESOPHAGOGASTRODUODENOSCOPY (EGD), FLEXIBLE, TRANSORAL, DIAGNOSTIC performed by Martha Patterson MD at ENDOSCOPY [facility] FOOT/TOE SURGERY NEC Left 09/21/1993 Foot/Toes Surgery Proc Unlisted INFORMATION 09/21/2001 [id number] Dr Sagastume KNEE ARTHROSCOPY, DIAGNOSTIC Left 09/21/1988 Knee Scope,Diagnostic REPAIR INITIAL INGUINAL HERNIA REDUCIBLE AGE 5 OR MORE Right 03/12/2018 REPAIR INITIAL INGUINAL HERNIA REDUCIBLE AGE 5 OR MORE performed by Donovan Raza MD at OR [facility] Review of patient's allergies indicates: Allergen Reactions Onel Inhibitors To be avoided due to bilateral renal artery stenosis and worsening kidney function when on previously Prednisone Current Outpatient Medications Medication Sig Dispense Refill EQ Aspirin Adult Low Dose 81 MG Oral Tablet Delayed Release Take 1 Tablet by mouth daily. In the morning. 90 Tablet 3 Baclofen 10 MG Oral Tablet (Lioresal) Take 1 Tablet by mouth in the morning and 1 Tablet at noon and 1 Tablet before bedtime. 90 Tablet 1 Thiamine HCl 100 MG Oral Tablet Take 1 Tablet by mouth in the morning. Ipratropium-Albuterol 0.5-2.5 (3) MG/3ML Inhalation Solution (Duoneb) Inhale 3 mL via nebulizer every 6 hours as needed for Shortness of Breath. 180 mL 3 traMADol HCl 50 MG Oral Tablet (Ultram) Take 1 Tablet by mouth 2 times a day as needed for Pain, Severe. 30 Tablet 0 oxyCODONE HCl 5 MG Oral Tablet (Oxy IR) Take 1 Tablet by mouth every 6 hours as needed. methylPREDNISolone 4 MG Oral Tablet Therapy Pack (Medrol Dosepack) TAKE BY MOUTH DIRECTED ON INSIDE OF PACKAGE Vitamin D (Ergocalciferol) 78257 UNIT Oral Capsule Take by mouth. Trelegy Ellipta 200-62.5-25 MCG/ACT Aerosol Powder Breath Activated (Vpxqfnsufss-Fcybwpbdkcau-Jijpjkzytv) Inhale 1 Puff by mouth in the morning. 180 Blister Dosing Unit 3 Carvedilol 12.5 MG Oral Tablet (Coreg) 3 tabs by mouth twice per day 540 Tablet 3 Furosemide 20 MG Oral Tablet (Lasix) Take 1 Tablet by mouth in the morning. 90 Tablet 3 Atorvastatin Calcium 80 MG Oral Tablet [...] mouth in the morning. 90 Tablet 3 Cyanocobalamin 1000 MCG Oral Capsule Take by mouth. (Patient not taking: Reported on 01/21/2024) busPIRone HCl 5 MG Oral Tablet (Buspar) Take 1 Tablet by mouth in the morning and 1 Tablet at noon and 1 Tablet before bedtime. (Patient not taking: Reported on 01/21/2024) Current Facility-Administered Medications Medication Dose Route Frequency Provider Last Rate Last Admin Albuterol Sulfate (Proventil) (2.5 MG/3ML) 0.083% inhalation solution 2.5 mg 2.5 mg Nebulizer Once PRN [place], Objective: BP 132/84 | Pulse 71 | Temp 35.6 C (96 F) | Resp 17 | Ht 1.829 m (6') | Wt 108.1 kg (238 lb 6.4 oz) | SpO2 98% | BMI 32.33 kg/m | BSA 2.34 m GEN: NAD HEENT: Benign NECK: Supple with no LAD, TM, JVD CHEST: CTA B CV: RRR ABD: Soft, NT/ND, No HSM, NABS EXT: No c,c,e Assessment and Plan: Hypertensive left ventricular hypertrophy, without heart failure (Primary) - Potassium Chloride Alba ER 20 MEQ Oral Tablet Extended Release; Take 1 Tablet by mouth in the morning. - COMPREHENSIVE METABOLIC PANEL; Future; Expected date: 06/14/2024 Edema, unspecified type - COMPREHENSIVE METABOLIC PANEL; Future; Expected date: 06/14/2024 - BNP, NT-PRO; Future; Expected date: 06/14/2024 - CBC; Future; Expected date: 06/14/2024 Dyslipidemia, goal LDL below 70 COPD, group D, by GOLD 2017 classification (HCC) Coronary artery disease involving [place] coronary artery of unalak[place]et heart without angina pectoris Essential hypertension with goal blood pressure less than 140/90 Other orders - Sertraline HCl 50 MG Oral Tablet (Zoloft); Take 1 Tablet by mouth in the morning. Follow-up: Return in about 6 months (around 12/12/2024), or recheck. | Check-out note: Saw pulmonarymedicine in December (Rubén). Was to be seen for follow up in April - no appt ever made. Please set back up for pulm med. He wanted PFTs the same day and ordered them in December - please get those set upas well. 36 min with pt and chart review Omer Wayne MD documented in this encounter Nursing Notes * Debra Guan LPN - 06/14/2024 11:48 AM EDT The patient has been properly identified by confirmation of name and date of . Chief Complaint Patient presents with Follow Up 6 month return Would like to talk about depression and anxiety and has some areas on his L arm that will appear and then will go away Physical-Exam documented in this encounter Plan of Treatment Upcoming Encounters Date Type Department Care Team (Late st Contact Info) Description 07/05/2024 8:20 AM EDT Office Visit Pulmonary Medicine, [facility] [address] [facility] [place] [address] [facility]k [facility] [address] [facility] [place] [address] 08/15/2024 8:30 PM EST [facility]ostic [facility], [facility] [address] [facility] [address] [facility], Sleep Med Night Sleep [address] [place] [address] 12/19/2024 11:40 AM EDT [address] [id number] Omer Wayne MD [address] [place] [address] Scheduled Orders Name Type Priority Associated Diagnoses Orde r Schedule COMPREHENSIVE METABOLIC PANEL Lab Routine Hypertensive left ventricular hypertrophy, without heart failure Edema, unspecified type Expected: 06/14/2024 (Approximate), Expires: 06/14/2025 BNP, NT-PRO Lab Routine Edema, unspecified type Expected: 06/14/2024 (Approximate), Expires: 06/14/2025 CBC Lab Routine Edema, unspecified type Expected: 06/14/2024 (Approximate), Expires: 06/14/2025 Health Maintenance Due Date Last Done Comments [...] COPD 06/14/2025 06/14/2024 Albumin/Creatinine Ratio 10/28/2026 10/28/2023, 06/02/2023 Diabetes Screening [...] this encounter Medical Devices Implanted Type Area [employer] Product Leadership Device Identifier Shelf Expiration Date Model / Serial / Lot Mesh Plug Prefix [id number] [id number] - [id number] Implanted:Qty: 1 on 03/12/2018 by Donovan Raza MD at OR [facility] Right: Ingrid ALVARADO BARD : DAVOL 10/21/2018 [id number] / / [id number] documented as of this encounter Visit Diagnoses Diagnosis Hypertensive left ventricular hypertrophy, without heart failure- Primary Edema, unspecified type Dyslipidemia, goal LDL below 70 Other and unspecified hyperlipidemia COPD, group D, by GOLD 2017 classification (HCC) Coronary artery disease involving [place] coronary artery of unalak[place]et heart without angina pectoris Essential hypertension with goal blood pressure less than 140/90 documented in this encounter Care Teams Operations Technician Relationship Specialty Start Date End Date Omer Wayne MD [address] [place] [address] PCP - General 02/19/05 documented as of this encounter"
[2024-10-18 08:24] LABS: Hematocrit (blood only) 17.3 % (42.0-52.0); Hemoglobin 5.5 g/dl (14.0-18.0); Mean Corpuscular Hemoglobin 28.5 pg (25.0-34.0); Mean Corpuscular Hgb Conc 31.8 g/dL (32.0-36.0); Mean Corpuscular Volume 89.6 fL (80.0-100.0); Mean Platelet Volume 9.8 fL (9.4-12.4); Nucleated RBC # (auto) 0.02 K/uL (0.00-0.12); Nucleated RBC % (auto) 0.2 %; Platelet Count 279 K/uL (130-400); RDW Coefficient of Variation 18.8 % (11.5-14.5); RDW Standard Deviation 60.2 fL (36.4-46.3); Red Blood Count 1.93 M/uL (4.70-6.10); White Blood Count 8.91 K/ul (4.8-10.8)
[2024-10-18 08:30] LABS: Albumin Level 3.1 gm/dl (3.4-5.0); BUN Creatinine Ratio 20.2 (10-20); Bilirubin Direct 0.6 mg/dl (0-0.2); Bilirubin,Total 1.7 mg/dl (0.2-1.0); Creatinine Clr Calc Pharmacy 118.4 ml/min; Magnesium 1.7 mg/dl (1.7-2.4); Potassium 3.4 mmol/L (3.5-5.1); Total Protein 5.9 gm/dl (6.0-8.3)
[2024-10-18] MEDS: LORazepam 0.5 MG TAB PO PRN (08:35)
[2024-10-18] MEDS: FOLIC ACID 1 MG TAB PO SCH (08:36)
[2024-10-18] MEDS: SERTRALINE HCL 50 MG TABLET PO SCH (08:36)
[2024-10-18] MEDS: ATORVASTATIN 40 MG TAB PO SCH (08:36)
[2024-10-18] MEDS: FLUTICASONE FUROATE 200MCG 14 PUFFS/INHALER INH SCH (08:37)
[2024-10-18] MEDS: MULTIVITAMIN TAB PO SCH (08:37)
[2024-10-18] MEDS: UMECLIDINIUM/VILANTEROL 62.5/25MCG 7 PUFFS/INHALER INH SCH (08:38)
[2024-10-18 08:44] LABS: Basophils # (auto) 0.03 K/uL (0.00-0.20); Basophils % (auto) 0.3 %; Eosinophils # (auto) 0.04 K/uL (0.00-0.50); Eosinophils % (auto) 0.4 %; Immature Granulocytes # (auto) 0.03 K/uL (0.01-0.20); Immature Granulocytes % (auto) 0.3 %; Lymphocytes # (auto) 1.07 K/uL (1.20-3.40); Monocytes % (auto) 4.5 %; Neutrophils # (auto) 7.34 K/uL (1.40-6.50); Neutrophils % (auto) 82.5 %; Polychromasia 2+; Stomatocytes 1+; Tear Drop Cells 1+
[2024-10-18] MEDS ORDERED: FOLIC ACID 1 MG TAB PO SCH (09:00)
[2024-10-18] MEDS ORDERED: NON-FORMULARY MEDICATION (Fluticasone-Umeclidin-Vilanter [Trelegy Ellipta] 200-62.5-25 mcg INH SCH (09:00)
--- NOTE | 2024-10-18 10:54 | CT Scan Report ---
CT OF THE ABDOMEN AND PELVIS WITHOUT CONTRAST CLINICAL HISTORY: ro retroperitoneal bleed, blood loss anemia COMPARISON STUDY: CT of the abdomen and pelvis May 29, 2024. TECHNIQUE: Axial images of the abdomen and pelvis were obtained without IV contrast. Images were revi ewed in the axial, sagittal, and coronal planes. Automated exposure control was utilized for the sandra dy. A dose lowering technique was utilized adhering to the principles of ALARA. FINDINGS: Healing anterior left sixth rib fracture is noted. There is interlobular septal thickening within the lower lungs. Subpleural groundglass opacities are present. No hemoperitoneum or pneumoperi toneum is present. There is no retroperitoneal hematoma. Decreased attenuation of the cardiac blood p ool is consistent with the provided history of anemia. There is hepatic steatosis. Spleen, adrenal gl ands and pancreas are unremarkable on unenhanced exam. There is no hydronephrosis. There are no urina ry calculi. There is no evidence for a bowel obstruction. Note is made of colonic diverticulosis. No evidence for acute diverticulitis. There is no lymphadenopathy. There are no fluid collections within the abdomen or pelvis. Postoperative findings suggestive of right inguinal hernia repair with mesh a re present. The T12 compression fracture with 30% loss of vertebral body height loss is new since sheeba or exam. This fracture is subacute to acute. No retropulsion. Status post L4-S1 decompression and fus ion with discectomy. Lucencies projecting over the proximal femoral heads are again noted. IMPRESSION: 1. No acute process within the abdomen or pelvis. No retroperitoneal hematoma. 2. Interlobular septal thickening within the lower lungs suggestive of interstitial pulmonary edema. 3. Hepatic steatosis. 4. Bilateral femoral heads lucencies, unchanged since prior exam. Although the appearance is not enti rely typical, avascular necrosis is favored. 5. T12 compression fracture with 30% loss of vertebral body height. This fracture is subacute to acut e. ACT 112: Negative or not required by law. Electronically signed by: Quan Tripp M.D. 10/18/2024 10:52 AM
[2024-10-18] MEDS: POTASSIUM CHLORIDE CRTAB 20 MEQ TABCR PO STA ×2 (11:04→11:33)
[2024-10-18] MEDS: POLYETHYLENE (MIRALAX) 17 GM PACK PO STA (11:33)
[2024-10-18] MEDS: POLYETHYLENE (MIRALAX) 17 GM PACK ONE (12:01)
--- NOTE | 2024-10-18 12:46 | Electrocardiogram Report ---
Test Reason : Blood Pressure : */* mmHG Vent. Rate : 84 BPM Atrial Rate : 84 BPM P-R Int : 152 ms QRS Dur : 136 ms QT Int : 424 ms P-R-T Axes : 15 -6 6 degrees QTcB Int : 501 ms Normal sinus rhythm Right bundle branch block Abnormal ECG When compared with ECG of 17-Oct-2024 21:39, (unconfirmed) Right bundle branch block is now Present Confirmed by Pramod Hair ([id number]) on 10/18/2024 12:46:05 PM Referred By: REFERRED SELF Confirmed By: Pramod Hair
--- NOTE | 2024-10-18 12:46 | Electrocardiogram Report ---
Test Reason : Blood Pressure : */* mmHG Vent. Rate : 88 BPM Atrial Rate : 88 BPM P-R Int : 150 ms QRS Dur : 90 ms QT Int : 430 ms P-R-T Axes : 54 8 -10 degrees QTcB Int : 520 ms Normal sinus rhythm Low voltage QRS T wave abnormality, consider anterolateral ischemia Prolonged QT Abnormal ECG When compared with ECG of 29-May-2024 09:18, Right bundle branch block is no longer Present Confirmed by Pramod Hair ([id number]) on 10/18/2024 12:45:59 PM Referred By: REFERRED SELF Confirmed By: Pramod Hair
[2024-10-18] MEDS: FUROSEMIDE INJ 20 MG/2 ML VIAL IV ONE (13:16)
[2024-10-18 14:34] LABS: Appearance Urine Clear (Clear); Bacteria Urine Automated 1+ (None Seen); Bilirubin Urine 1+ (Negative); Blood Urine Negative (Negative); Epithelial Cell Urine Auto 0-2 /hpf (0-2); Glucose Urine UA Negative (Negative); Hyaline Casts Urine Present /lpf (None Presnt); Ketones Urine Trace (Negative); Leukocyte Esterase Urine Trace (Negative); Nitrite Urine Positive (Negative); Protein Urine Trace (Negative); RBC Urine Automated 0-2 /hpf (0-2); Specific Gravity Urine 1.022 (1.000-1.030); Urobilinogen Urine Positive (Negative); WBC Urine Automated 0-5 /hpf (0-5)
[2024-10-18 14:35] LABS: Color Urine Amber
--- NOTE | 2024-10-18 15:12 | Communication Note ---
Date of Service: October 18, 2024 Patient was seen and examined at bedside. 59-year-old male with PMH of nonocclusive CAD, PVD, HTN, HLD, COPD, SAROJ, hepatic steatosis, chronic anemia [baseline hemoglobin of 8], anxiety disorder, ongoing tobacco/alcohol abuse who complained of dark loose stools few months ago presented 10/18 with complaint of increasingly weak over the last 2 weeks HEALTH CARE LIAISON. Patient denies current dark stools or blood in the stool HEALTH CARE LIAISON, FOBT was negative in the ED, denied chest pain/shortness of breath/abdominal pain/trauma/bruise. Patient reports near syncope symptoms on standing up. Patient denies headache. Patient reports baseline cough with clear sputum. Denies hematuria and hemoptysis. He is being managed for the following: Acute on chronic anemia, likely secondary to blood loss Likely GI bleed, possibly acute GI bleed: iso chronic alcohol and tobacco use. Patient reports dark stools few months ago, presents with progressive weakness over the last 2 weeks HEALTH CARE LIAISON. Currently denies blood in the stool or black stool, FOBT was negative in the ED. At presentation, denied chest pain, unusual SOB, abdominal pain, bruise, trauma, headache, hemoptysis, hematuria. Reported progressive weakness and near syncope symptoms on standing up. Admitting hemoglobin of 4.7, MCV 93. CTAP with no retroperitoneal hematoma. Patient receiving 4 units blood transfusion, midway H&H came back 5.5 but on exam patient did not look very pale to justify 5.5 hemoglobin. Will consider small dose IV Lasix once blood pressure more stable Or if r espiratory decompensation. Sent repeat H&H; hemolysis workup, PBS and Sarah test. Follow Transfuse PRBC for hemoglobin less than 8 or for symptomatic anemia. Fall precaution given weakness secondary to anemia. PT/OT once hemoglobin more stable. Hold aspirin for now. FOBT to be repeated, if comes back positive then n.p.o. and possible GI consult. c/w PPI. Patient reports no colonoscopy in the past, has colonoscopy coming up in November. Urinary tract infection: Continue with Rocephin 10/18, follow urine culture. Hypotension: Likely secondary to anemia/hypovolemia. Blood pressure improving. Continue to monitor. Fall precaution for now. Coreg dose has been decreased (12.5 mg bid to 3.125 mg bid) as OP, resume at lower dose when BP stable. T12 compression fracture: noted in CTAP. Patient with no pain, likely subacute fracture. Follow-up with orthospine upon discharge. 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 Follow-up with orthopedics on discharge. Patient currently with no hip pain. Other chronic medical conditions: Continue with/resume home meds as and when able. hx nonocclusive CAD, PVD (renal artery stenosis as per records), patient noncompliant with home aspirin Rx hyperlipidemia, on statin Rx COPD, usual cough/SOB symptoms as per patient SAROJ, patient awaiting device Transaminitis, underlying hepatic steatosis, possible alcoholic hepatitis Hypokalemia anxiety disorder, at baseline ongoing tobacco/alcohol abuse: smokes 3-5 cig/day, drinks 3-5 shots of whiskey a day. AWSS protocol. Monitor and replete electrolytes. Nicotine replacement therapy as needed DVT prophylaxis. SCDs re: possible GI bleed Full code For detailed information on the patient, refer to today's H&P note. Text document was generated using [employer]pp[employer] voice recognition software. It may contain grammatical or spelling errors. Kindly contact undersigned for clarification of any documentation item in question.
[2024-10-18 15:18] LABS: Uric Acid 7.5 mg/dl (2.6-7.2)
[2024-10-18 15:57] LABS: Hematocrit (blood only) 20.1 % (42.0-52.0); Hemoglobin 6.8 g/dl (14.0-18.0)
[2024-10-18] MEDS: PANTOprazole 40 MG/10 ML SYR IV ONE (16:00)
[2024-10-18] MEDS: cefTRIAXone SODIUM 2,000 MG/50 ML BAG IV SCH (16:13)
[2024-10-18] MEDS: MAGNESIUM CITRATE 296 ML/BTL PO SCH (17:29)
[2024-10-18] MEDS: DOCUSATE SODIUM 100 MG CAP PO SCH (17:29)
[2024-10-18] MEDS: PANTOprazole 40 MG/10 ML SYR IV SCH (21:34)
[2024-10-18 21:57] LABS: Hematocrit (blood only) 24.6 % (42.0-52.0); Hemoglobin 8.3 g/dl (14.0-18.0)
[2024-10-19 06:01] LABS: Hemoglobin 7.7 g/dl (14.0-18.0); Mean Corpuscular Hemoglobin 29.4 pg (25.0-34.0); Mean Corpuscular Hgb Conc 33.5 g/dL (32.0-36.0); Mean Corpuscular Volume 87.8 fL (80.0-100.0); Mean Platelet Volume 10.1 fL (9.4-12.4); Nucleated RBC # (auto) 0.02 K/uL (0.00-0.12); Nucleated RBC % (auto) 0.2 %; Platelet Count 279 K/uL (130-400); RDW Standard Deviation 52.8 fL (36.4-46.3); Red Blood Count 2.62 M/uL (4.70-6.10); White Blood Count 11.16 K/ul (4.8-10.8)
[2024-10-19 06:40] LABS: BUN Creatinine Ratio 19.7 (10-20); Calcium 8.1 mg/dl (8.6-10.3); Creatinine Clr Calc Pharmacy 150.9 ml/min; Magnesium 1.7 mg/dl (1.7-2.4); Phosphorus 1.6 mg/dl (2.5-4.9); Potassium 3.8 mmol/L (3.5-5.1)
[2024-10-19] MEDS ORDERED: SODIUM PHOSPHATE 3 MMOL/1 ML 5 ML VIAL IV ONE (07:35)
[2024-10-19] MEDS: ADVANCED PROBIOTIC 625 MG CAPSULE PO SCH (08:20)
[2024-10-19] MEDS: POLYETHYLENE (MIRALAX) 17 GM PACK PO SCH (08:20)
[2024-10-19] MEDS: POT PHOSPHATE MONOBASIC W/ SOD TAB PO SCH (08:20)
[2024-10-19] MEDS: THIAMINE HCL 100 MG TAB PO SCH (08:21)
--- NOTE | 2024-10-19 09:58 | Gastrointestinal Consultation ---
Date of Consultation October 19, 2024 Assessment & Plan (1) Anemia: 59 year old male w/ history of nonocclusive CAD, PVD, hypertension, hyperlipidemia, COPD, SAROJ, hepatic steatosis,, chronic anemia (baseline hemoglobin of 8), anxiety disorder, ongoing tobacco/alcohol abuse admitted w/ anemia and syncope, HGB 4.7 s/p transfusion of 5 units w/ HGB of 7.7. There is no report of black/bloody stools, fecal occult negative, current iron studies do not indicate iron deficiency but we are happy to arrange endoscopic evaluation prior to discharge as there was concern for recurrent anemia prior to his scheduled outpatient evaluation. May have clear liquid diet today Golytely bowel prep NPO after midnight EGD/Colonoscopy tomorrow DNA HFE study Trend H&H Transfuse PRN per primary service Monitor and document GI output Encouraged ETOH cessation ETOH withdrawal protocol I spent a total of 60 minutes on the date of service in review of patient's record, and previously obtained information in person and appropriate medical visit, discussion and education of plan, with patient and/or caregiver, placing orders for tests/referral/procedures as medically necessary and documentation of pertinent clinical information in patient's medical records for their visit today. We appreciate assistance in the management of any serological abnormality and corrections to include: hemoglobin >7, INR <2, platelets >50,000, potassium levels >3.5 but <5.3, and sodium levels within 5 points of the reference range prior to endoscopic evaluation. Thank you for allowing us to participate in the care of this patient. Please call with any acute changes, questions or concerns. Please see addendum below with additional recommendation from my supervising physician. Supervising Physician Co-Signing Physician Notes I personally saw and examined the patient. I have reviewed the chart and agree with the documentation provided by the DIP TANKER including discussion about the assessment, treatment and plan. 59 year old male w/ history of nonocclusive CAD, PVD, hypertension, hyperlipidemia, COPD, SAROJ, hepatic steatosis, chronic anemia (baseline hemoglobin of 8), anxiety disorder, ongoing tobacco/alcohol abuse admitted w/ anemia and syncope - GI asked to evaluate. He denies abd pain. No nausea/vomiting. He reports previous GERD symptoms. This has improved with PPI therapy. He has intermittent solids dysphagia. This returned about 3 months ago and has been a near daily occurrence. Stools move daily. On arrival his hemoglobin was 4 and has come up with blood transfusions. His iron indices show a very high saturation with a high ferritin. CT shows a dense fatty liver with mildly elevated LFTs, alkaline phosphatase. Will do an EGD/Colon tomorrow to rule out any alcohol associated GI disease and to rule out mass versus polyps in the colonoscopy. Would check a HFE gene test to rule out hemochromatosis given repeated high iron saturation History of Present Illness Reason for Consultation: ?UGI bleed, prog weakness, anemia Requesting Physician: Shahana Cervantes MD Attending Physician: Shahana Cervantes MD History of Present Illness 59 year old male w/ history of nonocclusive CAD, PVD, hypertension, hyper lipidemia, COPD, SAROJ, hepatic steatosis,, chronic anemia (baseline hemoglobin of 8), anxiety disorder, ongoing tobacco/alcohol abuse admitted w/ anemia and syncope - GI asked to evaluate. He denies abd pain. No nausea/vomiting. He reports previous GERD symptoms. This has improved with PPI therapy. He has intermittent solids dysphagia. This returned about 3 months ago and has been a near daily occurrence. Stools move daily. No black or bloody stools. Sometimes feels he has incomplete evacuation. No weight loss. No fever, chills, CP, SOB. 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 Biopsied. - Abnormal GE junction- biopsied. - Normal stomach. - Normal duodenal bulb and second portion of the duodenum. Colonoscopy: none Allergies Allergy/AdvReac Type Severity Reaction Status Date / Time TONIA Inhibitors AdvReac Severe ALESSANDRO Verified 01/13/24 09:28 ARB-Angiotensin Receptor AdvReac Severe ALESSANDRO Verified 12/28/23 09:35 Antagonist prednisone AdvReac Mild "jitterines Verified 12/28/23 09:35 s" Home Medications Medication Instructions Recorded Confirmed Type aspirin 81 mg tablet,delayed 81 mg PO QAM #30 tabs 03/09/23 10/18/24 Rx release atorvastatin 80 mg tablet 80 mg PO QAM 03/16/23 10/18/24 History baclofen 10 mg tablet 10 mg PO TID PRN Muscle Spasm 06/09/23 10/18/24 History ipratropium 0.5 mg-albuterol 3 mg 3 ml inhalation Q6H PRN 06/11/23 10/18/24 Rx (2.5 mg base)/3 mL nebulization wheezing/severe shortness of soln breath #90 mL furosemide 20 mg tablet 20 mg PO QAM 10/14/23 10/18/24 History potassium chloride 20 mEq 20 meq PO QAM 10/14/23 10/18/24 History tablet,extended release folic acid 1 mg tablet 1 mg PO QAM #30 tabs 12/07/23 10/18/24 Rx carvedilol 12.5 mg tablet 12.5 mg PO BID 12/28/23 10/18/24 History fluticasone fur. 200 mcg-umeclid 1 inh inhalation QAM 12/28/23 10/18/24 History 62.5 mcg-vilant 25 mcg inhalat.powder (Trelegy Ellipta) lorazepam 1 mg tablet 1 mg PO Q6 PRN Anxiety 10/18/24 10/18/24 History sertraline 50 mg tablet 50 mg PO QAM 10/18/24 10/18/24 History tramadol 50 mg tablet 50 mg PO Q6 PRN Pain 10/18/24 10/18/24 History Patient History Medical History On home oxygen therapy 2 LPM at Acute respiratory failure with hypoxia hospitalized at [facility] November 2023 for this, still having some shortness of breath with activity, at rest is okay Hepatic steatosis CAD (coronary artery disease) GERD (gastroesophageal reflux disease) controlled, stable per pt Kidney disease following with [facility] Nephrology. Sleep apnea no device Plaque psoriasis Hx of seasonal allergies Spinal stenosis History of shingles 05/2022, PRN gabapentin for chronic right eye irritation/pain from shingles Surgical History History of cardiac catheterization 02/2023 [facility]. no stents. History of back surgery lumbar > "bone spur shaving" Hx of arthroscopic knee surgery Left Hx of foot surgery Left Hx of inguinal hernia repair History of esophagogastroduodenoscopy (EGD) Family History Father Diabetes Social History Smoking Status: Former smoker Tobacco Type: Cigarettes Cigarettes Per Day: 3 cigarettes/day; Second Hand Exposure: No; Do You Dip or Chew Tobacco: No; Tobacco Cessation Education Requested by Patient: No Hx Alcohol Use: Yes Alcohol type: hard liquor Alcohol Intake Frequency: 4 or More x per/Week Alcohol Intake Frequency Comment: 2-12 beers 5x/week Hx Substance Use: No Preferred Language: Khmer Communication Ability: Effective 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 Physical Exam Constitutional: WD/WN, vitals as above Respiratory: normal respiratory effort Cardiovascular: Rate/Rhythm: regular rate and regular rhythm Gastrointestinal (Abdomen): normal bowel sounds, soft, nontender, no hepatosplenomegaly Skin: no rashes, warm and dry Results & Data Vital Signs (Past 12 Hours) Vital Signs Temp Pulse Pulse Resp BP Pulse Ox O2 Del Method 10/19/24 08:13 97.5 F L 92 H 18 127/79 93 Room Air 10/19/24 07:56 87 10/19/24 03:20 97.7 F 90 16 148/88 H 94 Room Air 10/18/24 23:27 98.2 F 79 22 143/85 H 93 Room Air 10/18/24 23:18 75 Laboratory Results 10/19/24 10/19/24 10/18/24 Range/Units Unknown 05:19 Unknown WBC 11.16 H (4.8-10.8) K/ul RBC 2.62 L (4.70-6.10) M/uL Hgb 7.7 L (14.0-18.0) g/dl Hct 23.0 L (42.0-52.0) % MCV 87.8 (80.0-100.0) fL MCH 29.4 (25.0-34.0) pg MCHC 33.5 (32.0-36.0) g/dL RDW Std Deviation 52.8 H (36.4-46.3) fL RDW Coeff of Rogelio 17.0 H (11.5-14.5) % Plt Count 279 (130-400) K/uL MPV 10.1 (9.4-12.4) fL Absolute Nucleated RBC 0.02 (0.00-0.12) K/uL Nucleated RBC % (auto) 0.2 % Peripher Smr Path Cons Haptoglobin Sodium 134 L (136-145) mmol/L Potassium 3.8 (3.5-5.1) mmol/L Chloride 102 (98-107) mmol/L Carbon Dioxide 25 (21-32) mmol/L Anion Gap 7 (3-11) BUN 13 (6-23) mg/dl Creatinine 0.66 (0.6-1.4) mg/dl Est Cr Clr Drug Dosing 150.9 ml/min eGFR 106.71 BUN/Creatinine Ratio 19.7 (10-20) Glucose 94 (70-99(Fasting)) mg/dl Uric Acid (2.6-7.2) mg/dl Calcium 8.1 L (8.6-10.3) mg/dl Phosphorus 1.6 L (2.5-4.9) mg/dl Magnesium 1.7 (1.7-2.4) mg/dl Lactate Dehydrogenase (86-244) U/L Urine Color Urine Appearance (Clear) Urine pH (4.5-7.5) Ur Specific [place] (1.000-1.030) Urine Protein (Negative) Urine Glucose (UA) (Negative) Urine Ketones (Negative) Urine Blood (Negative) Urine Nitrite (Negative) Urine Bilirubin (Negative) Urine Urobilinogen (Negative) Ur Leukocyte Esterase (Negative) Urine WBC (Auto) (0-5) /hpf Urine RBC (Auto) (0-2) /hpf U Hyaline Cast (Auto) (0-2) /lpf U Epithel Cells (Auto) (0-2) /hpf Urine Bacteria (Auto) (None Seen) Hyaline Casts (None Presnt) /lpf Stool Occult Bld Scrn Negative Negative (Negative) Blood Type Antibody Screen Direct Antiglob Test (Negative) JANET (IgG-AHG) (Negative) JANET, Polyspecific (Negative) JANET C3b, C3d 5 Min (Negative) Crossmatch 10/18/24 10/18/24 10/18/24 Range/Units Unknown 21:29 14:28 WBC (4.8-10.8) K/ul RBC (4.70-6.10) M/uL Hgb 8.3 L 6.8 L* (14.0-18.0) g/dl Hct 24.6 L 20.1 L* (42.0-52.0) % MCV (80.0-100.0) fL MCH (25.0-34.0) pg MCHC (32.0-36.0) g/dL RDW Std Deviation (36.4-46.3) fL RDW Coeff of Rogelio (11.5-14.5) % Plt Count (130-400) K/uL MPV (9.4-12.4) fL Absolute Nucleated RBC (0.00-0.12) K/uL Nucleated RBC % (auto) % Peripher Smr Path Cons Haptoglobin Pending Sodium (136-145) mmol/L Potassium (3.5-5.1) mmol/L Chloride (98-107) mmol/L Carbon Dioxide (21-32) mmol/L Anion Gap (3-11) BUN (6-23) mg/dl Creatinine (0.6-1.4) mg/dl Est Cr Clr Drug Dosing ml/min eGFR BUN/Creatinine Ratio (10-20) Glucose (70-99(Fasting)) mg/dl Uric Acid 7.5 H (2.6-7.2) mg/dl Calcium (8.6-10.3) mg/dl Phosphorus (2.5-4.9) mg/dl Magnesium (1.7-2.4) mg/dl Lactate Dehydrogenase 234 (86-244) U/L Urine Color Yamini Urine Appearance Clear (Clear) Urine pH 6.0 (4.5-7.5) Ur Specific [place] 1.022 (1.000-1.030) Urine Protein Trace H (Negative) Urine Glucose (UA) Negative (Negative) Urine Ketones Trace H (Negative) Urine Blood Negative (Negative) Urine Nitrite Positive A (Negative) Urine Bilirubin 1+ H (Negative) Urine Urobilinogen Positive H (Negative) Ur Leukocyte Esterase Trace H (Negative) Urine WBC (Auto) 0-5 (0-5) /hpf Urine RBC (Auto) 0-2 (0-2) /hpf U Hyaline Cast (Auto) 11-20 H (0-2) /lpf U Epithel Cells (Auto) 0-2 (0-2) /hpf Urine Bacteria (Auto) 1+ H (None Seen) Hyaline Casts Present A (None Presnt) /lpf Stool Occult Bld Scrn Negative (Negative) Blood Type Antibody Screen Direct Antiglob Test (Negative) JANET (IgG-AHG) (Negative) JANET, Polyspecific (Negative) JANET C3b, C3d 5 Min (Negative) Crossmatch 10/18/24 10/17/24 Range/Units 07:47 23:17 WBC (4.8-10.8) K/ul RBC (4.70-6.10) M/uL Hgb (14.0-18.0) g/dl Hct (42.0-52.0) % MCV (80.0-100.0) fL MCH (25.0-34.0) pg MCHC (32.0-36.0) g/dL RDW Std Deviation (36.4-46.3) fL RDW Coeff of Rogelio (11.5-14.5) % Plt Count (130-400) K/uL MPV (9.4-12.4) fL Absolute Nucleated RBC (0.00-0.12) K/uL Nucleated RBC % (auto) % Peripher Smr Path Cons Pending Haptoglobin Sodium (136-145) mmol/L Potassium (3.5-5.1) mmol/L Chloride (98-107) mmol/L Carbon Dioxide (21-32) mmol/L Anion Gap (3-11) BUN (6-23) mg/dl Creatinine (0.6-1.4) mg/dl Est Cr Clr Drug Dosing ml/min eGFR BUN/Creatinine Ratio (10-20) Glucose (70-99(Fasting)) mg/dl Uric Acid (2.6-7.2) mg/dl Calcium (8.6-10.3) mg/dl Phosphorus (2.5-4.9) mg/dl Magnesium (1.7-2.4) mg/dl Lactate Dehydrogenase (86-244) U/L Urine Color Urine Appearance (Clear) Urine pH (4.5-7.5) Ur Specific [place] (1.000-1.030) Urine Protein (Negative) Urine Glucose (UA) (Negative) Urine Ketones (Negative) Urine Blood (Negative) Urine Nitrite (Negative) Urine Bilirubin (Negative) Urine Urobilinogen (Negative) Ur Leukocyte Esterase (Negative) Urine WBC (Auto) (0-5) /hpf Urine RBC (Auto) (0-2) /hpf U Hyaline Cast (Auto) (0-2) /lpf U Epithel Cells (Auto) (0-2) /hpf Urine Bacteria (Auto) (None Seen) Hyaline Casts (None Presnt) /lpf Stool Occult Bld Scrn (Negative) Blood Type O Positive Antibody Screen NEGATIVE Direct Antiglob Test Negative (Negative) JANET (IgG-AHG) Neg (Negative) JANET, Polyspecific Neg (Negative) JANET C3b, C3d 5 Min Neg (Negative) Crossmatch See Detail PG Care Time/CCT Total # of Minutes Spent Total Time Spent with Patient: Total time spent is greater than 50% in coordination of care (as documented) at patient's floor/unit and/or counseling patient: Coding Level of Care Code 63221 IN/OBS CONSULT LVL 4,60M Diagnoses Anemia D64.9
--- NOTE | 2024-10-19 12:37 | Hospitalist Progress Note ---
Date of Service October 19, 2024 Assessment & Plan (1) Acute on chronic anemia: Plan: History of chronic anemia with hemoglobin around 10 Presented with progressive weakness and noted to have hemoglobin of 4.7 1 episode of black stool but heme has been negative so far and no evidence of hematemesis and/or bright blood per rectum Received 6 units of PRBC so far and the hemoglobin is maintaining at around 7.7 this morning Anemia workup including peripheral blood smear, reticulocyte , iron studies and vitamin levels are unremarkable Suspected acute GI blood loss likely the cause of anemia Has been on Protonix drip and has history of GERD and also hepatic steatosis from use of alcohol in the past Hold home aspirin for now until GI bleed definitely ruled out. Appreciate GI input and recommendation Will have EGD and colonoscopy tomorrow (2) GERD (gastroesophageal reflux disease): (3) Hepatic steatosis: Plan: Transaminitis, underlying hepatic steatosis, possible alcoholic hepatitis RAFA S at risk protocol, DT precautions Replace electrolytes (4) Hypotension: Plan: Hypotension Secondary to hypovolemia, possible GI bleed given progressive anemia, initial FOBT done at the ER was negative Relatively high Coreg dose contributory (5) CAD (coronary artery disease): Plan: hx nonocclusive CAD, PVD (renal artery stenosis as per records), patient noncompliant with home aspirin Rx Denies any cardiac symptoms of palpitation or chest pain or shortness of breath (6) Chronic obstructive pulmonary disease: Plan: No evidence of acute exacerbation Denies any cough, wheezing or shortness of breath at rest and saturating normally on room air (7) Sleep disorder breathing: Plan: history of obstructive sleep apnea (8) Neurogenic claudication due to lumbar spinal stenosis: Plan: History of lumbar spinal stenosis remains asymptomatic now and also noted to have T12 compression fracture: noted in CTAP. Patient with no pain, likely subacute fracture. Follow-up with orthospine upon discharge. 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 Follow-up with orthopedics on discharge. Patient currently with no hip pain. He has not been having any acute pain from above findings but will need to have an appointment with the orthopedic surgeon as an outpatient Hyperlipidemia, on statin Rx Anxiety disorder, at baseline Ongoing tobacco/alcohol abuse-Nicotine replacement therapy as needed DVT prophylaxis. SCDs re: possible GI bleed Full code Text document was generated using Dragon voice recognition software. It may contain grammatical or spelling errors. Kindly contact undersigned for clarification of any documentation item in question. Admission and Anticipated Discharge Date Admission Date: October 18, 2024 Subjective 10/19/2024 Patient was seen and examined in telemetry unit He has been feeling weak and tired but denies any chest pain, shortness of breath or palpitation Denies any shortness of breath at rest No hematemesis and/or melena or any bright red blood Review of Systems Review of Systems: All systems reviewed and are unremarkable except as noted below Physical Exam Physical Exam: Lying in bed without any acute distress Constitutional: well developed, well nourished, + ill appearing and + obese Eyes: PERRL, conjunctivae normal, anicteric sclerae ENMT: external ear and nose normal, oropharynx normal Neck: trachea midline, no thyromegaly Respiratory: no respiratory distress Auscultation: lungs clear to auscultation bilaterally Cardiovascular: Rate/Rhythm: regular rate and regular rhythm; not tachycardic Heart Sounds: normal S1 and normal S2; no murmur Extremities: no edema Gastrointestinal (Abdomen): Inspection/Auscultation: normal bowel sounds; abdomen not distended Percussion/Palpation: abdomen soft; abdomen nontender Musculoskeletal: No acute arthritis involving any of the joint Neurologic: normal touch/pain/proprioception and moves all extremities; no focal motor deficits Psychiatric: A+Ox3, euthymic affect Lymphatic: no cervical or axillary lymphadenopathy Results & Data Results & Data Vital Signs (Past 12 Hours) Vital Signs Temp Pulse Pulse Resp BP Pulse Ox O2 Del Method 10/19/24 11:41 36.3 C L 92 H 18 133/70 93 Room Air 10/19/24 08:13 36.4 C L 92 H 18 127/79 93 Room Air 10/19/24 07:56 87 10/19/24 03:20 36.5 C 90 16 148/88 H 94 Room Air Laboratory Results Short CBC 10/18/24 10/18/24 10/19/24 Range/Units 14:28 21:29 05:19 WBC 11.16 H (4.8-10.8) K/ul Hgb 6.8 L* 8.3 L 7.7 L (14.0-18.0) g/dl Hct 20.1 L* 24.6 L 23.0 L (42.0-52.0) % Plt Count 279 (130-400) K/uL BMP 10/19/24 05:19 Sodium 134 L Potassium 3.8 Chloride 102 Carbon Dioxide 25 BUN 13 Creatinine 0.66 Glucose 94 Calcium 8.1 L Urine 10/18/24 Range/Units Unknown Urine Color Yamini Urine Appearance Clear (Clear) Urine pH 6.0 (4.5-7.5) Ur Specific [place] 1.022 (1.000-1.030) Urine Protein Trace H (Negative) Urine Glucose (UA) Negative (Negative) Medications Administered Current Inpatient Medications Acetaminophen (Acetaminophen 500 Mg Tab) 500 mg PO Q6H PRN PRN Reason: fever/pain Stop: 11/17/24 02:06 Albuterol (Albut/Ipratrop 3mg/0.5mg Neb 3 Ml Vial) 3 ml NEB Q2H PRN; Protocol PRN Reason: sob wheeze Stop: 11/17/24 04:37 Atorvastatin Calcium (Atorvastatin 40 Mg Tab) 80 mg PO QAM [facility] Stop: 11/17/24 08:59 Last Admin: 10/19/24 08:21 Dose: 80 mg Baclofen (Baclofen 10 Mg Tab) 10 mg PO TID PRN PRN Reason: Muscle Spasm Stop: 11/17/24 04:39 Docusate Sodium (Docusate Sodium 100 Mg Cap) 100 mg PO BID [facility] Stop: 11/17/24 16:14 Last Admin: 10/19/24 08:28 Dose: 100 mg Fluticasone Furoate (Fluticasone Furoate 200mcg 14 Puffs/Inhaler) 1 puffs INH DAILY [facility] Stop: 11/17/24 08:59 Last Admin: 10/19/24 08:21 Dose: 1 puffs Folic Acid (Folic Acid 1 Mg Tab) 1 mg PO QAM [facility] Stop: 11/17/24 08:59 Last Admin: 10/19/24 08:20 Dose: 1 mg Promethazine HCl (Phenergan) 6.25 mg in 50.25 mls @ 201 mls/hr IV Q6H PRN PRN Reason: Nausea And Vomiting Stop: 11/17/24 02:08 Ceftriaxone Sodium (Rocephin) 2,000 mg in 50 mls @ 100 mls/hr IV Q24H [facility] Stop: 10/28/24 15:59 Last Infusion: 10/18/24 16:46 Dose: Infused Pantoprazole Sodium (Protonix) 40 mg in 10 mls @ 5 mls/min IV BID [facility] Stop: 11/17/24 20:59 Last Admin: 10/19/24 08:20 Dose: 5 mls/min Lactobacillus Acidophilus (Advanced Probiotic 625 Mg Capsule) 1,250 mg PO DAILY [facility] Stop: 11/18/24 08:59 Last Admin: 10/19/24 08:20 Dose: 1,250 mg Lorazepam (Lorazepam 2 Mg/1 Ml Vial) 1 mg IV ONE PRN; Protocol PRN Reason: EtoH Withdrawal AWSS 6-10 Lorazepam (Lorazepam 0.5 Mg Tab) 0.5 mg PO TID PRN PRN Reason: Anxiety Stop: 11/17/24 02:06 Last Admin: 10/18/24 21:33 Dose: 0.5 mg Magnesium Citrate (Magnesium Citrate 296 Ml/Btl) 148 ml PO TODAY@ [facility]DA Stop: 11/17/24 16:44 Last Admin: 10/18/24 17:29 Dose: 148 ml Melatonin (Melatonin 3 Mg Tab) 6 mg PO HS PRN PRN Reason: Sleep Stop: 11/17/24 02:05 Multivitamins (Multivitamin Tab) 1 tab PO QAM [facility] Stop: 11/17/24 08:59 Last Admin: 10/19/24 08:21 Dose: 1 tab Oxycodone HCl (Oxycodone Hcl Ir 5 Mg Tab (Immediate Release)) 5 mg PO Q4H PRN PRN Reason: Pain Stop: 11/01/24 02:06 Polyethylene Glycol (Polyethylene (Miralax) 17 Gm Pack) 17 gm PO DAILY [facility] Stop: 11/18/24 08:59 Last Admin: 10/19/24 08:20 Dose: 17 gm Polyethylene Glycol/Electrolytes (Lavage Solution 4000ml) 16 dose PO TODAY@1600 [facility] Stop: 10/19/24 16:01 Potassium Phosphate (Pot Phosphate Monobasic W/ Sod Tab) 1 tab PO Q8 [facility] Stop: 10/20/24 06:01 Last Admin: 10/19/24 08:20 Dose: 1 tab Sertraline HCl (Sertraline Hcl 50 Mg Tablet) 50 mg PO QAM [facility] Stop: 11/17/24 08:59 Last Admin: 10/19/24 08:21 Dose: 50 mg Thiamine HCl (Thiamine Hcl 100 Mg Tab) 100 mg PO QAM [facility] Stop: 11/18/24 08:59 Last Admin: 10/19/24 08:21 Dose: 100 mg Umeclidinium/Vilanterol (Umeclidinium/Vilanterol 62.5/25mcg 7 Puffs/Inhaler) 1 puffs INH DAILY [facility] Stop: 11/17/24 08:59 Last Admin: 10/19/24 08:21 Dose: 1 puffs (6) Chronic obstructive pulmonary disease COPD type: COPD with acute exacerbation Qualified Code(s): J44.1 - Chronic obstructive pulmonary disease with (acute) exacerbation
[2024-10-19] MEDS: NICOTINE 14 MG/24 HR PATCH TD SCH (13:54)
[2024-10-19] MEDS: LAVAGE SOLUTION 4000ML PO SCH (16:36)
[2024-10-19] MEDS: ACETAMINOPHEN 500 MG TAB PO PRN (17:59)
[2024-10-19 18:08] LABS: Hematocrit (blood only) 25.3 % (42.0-52.0); Hemoglobin 8.2 g/dl (14.0-18.0)
[2024-10-19] MEDS: MELATONIN 3 MG TAB PO PRN (21:37)
[2024-10-19] MEDS: BACLOFEN 10 MG TAB PO PRN (21:37)
--- NOTE | 2024-10-20 09:01 | Gastroenterology Progress Note ---
Date of Service October 20, 2024 Assessment & Plan (1) Anemia: Plan: 59 year old male w/ history of nonocclusive CAD, PVD, hypertension, hyperlipidemia, COPD, SAROJ, hepatic steatosis,, chronic anemia (baseline hemoglobin of 8), anxiety disorder, ongoing tobacco/alcohol abuse admitted w/ anemia and syncope, HGB 4.7 s/p transfusion of 5 units w/ HGB of 7.7. There is no report of black/bloody stools, fecal occult negative, current iron studies do not indicate iron deficiency but we are happy to arrange endoscopic evaluation prior to discharge as there was concern for recurrent anemia prior to his scheduled outpatient evaluation. He is NPO and prepped for endoscopic evaluation today. Maintain NPO status for EGD/Colonoscopy today. DNA HFE study. Trend H&H. Transfuse PRN per primary service. Encouraged ETOH cessation. ETOH withdrawal protocol We appreciate assistance in the management of any serological abnormality and corrections to include: hemoglobin >7, INR <2, platelets >50,000, potassium levels >3.5 but <5.3, and sodium levels within 5 points of the reference range prior to endoscopic evaluation. Thank you for allowing us to participate in the care of this patient. Please call with any acute changes, questions or concerns. Please see addendum below with additional recommendation from my supervising physician. Admission and Anticipated Discharge Date Admission Date: October 18, 2024 Supervising Physician Co-Signing Physician Notes I personally saw and examined the patient. I have reviewed the chart and agree with the documentation provided by the CLIENT CARE REPRESENTATIVE including discussion about the assessment, treatment and plan. Hemoglobin up to 7.7 after 5 units. Did have heme positive stool but no active bleeding since his admission. Will proceed with EGD colon today. He did do prep. Otherwise feels okay. His HFE is pending. Subjective Pt was seen and evaluated, chart reviewed. Tolerating bowel prep. Reports liquid stools. Clear/yellow. Review of Systems Review of Systems: All other findings negative except as noted in HPI. Physical Exam Constitutional: WD/WN, vitals as above Respiratory: normal respiratory effort Cardiovascular: RRR, no murmur, no edema Gastrointestinal (Abdomen): normal bowel sounds, soft, nontender, no hepatosplenomegaly Results & Data Results & Data Vital Signs (Past 12 Hours) Vital Signs Temp Pulse Pulse Resp BP BP Pulse Ox 10/20/24 07:00 78 10/20/24 04:20 98.1 F 88 18 122/73 93 10/19/24 23:55 98.2 F 90 102/66 96 10/19/24 22:36 93 H O2 Del Method 10/20/24 07:00 10/20/24 04:20 Room Air 10/19/24 23:55 Room Air 10/19/24 22:36 Laboratory Results 10/19/24 10/18/24 Range/Units 17:43 07:47 Hgb 8.2 L (14.0-18.0) g/dl Hct 25.3 L (42.0-52.0) % Peripher Smr Path Cons PG Care Time/CCT Total # of Minutes Spent Total Time Spent with Patient: Total time spent is greater than 50% in coordination of care (as documented) at patient's floor/unit and/or counseling patient: Coding Level of Care Code None Diagnoses Anemia D64.9
--- NOTE | 2024-10-20 12:56 | Anesthesiology Consultation ---
Date of Service October 20, 2024 Assessment & Plan (1) Encounter for pre-operative examination: Chart Review Chart Review: Acceptable Risk for Surgery and Patient NOT seen in Pre Admission Testing Consults Requested none History Surgery Operation Date: 10/20/24 16:30 Proposed Procedures p Colonoscopy EGD Louis Myers MD Height/Weight Height: 6 ft 1 in Weight: 108.8 kg Allergies Allergy/AdvReac Type Severity Reaction Status Date / Time TONIA Inhibitors AdvReac Severe ALESSANDRO Verified 01/13/24 09:28 ARB-Angiotensin Receptor AdvReac Severe ALESSANDRO Verified 12/28/23 09:35 Antagonist prednisone AdvReac Mild "jitterines Verified 12/28/23 09:35 s" Medications Home Medications Medication Instructions Recorded Confirmed Last Taken aspirin 81 mg tablet,delayed 81 mg PO QAM #30 tabs 03/09/23 10/18/24 01/10/24 release atorvastatin 80 mg tablet 80 mg PO QAM 03/16/23 10/18/24 05/29/24 baclofen 10 mg tablet 10 mg PO TID PRN Muscle Spasm 06/09/23 10/18/24 Unknown ipratropium 0.5 mg-albuterol 3 mg 3 ml inhalation Q6H PRN 06/11/23 10/18/24 01/08/24 (2.5 mg base)/3 mL nebulization wheezing/severe shortness of soln breath #90 mL furosemide 20 mg tablet 20 mg PO QAM 10/14/23 10/18/24 05/29/24 potassium chloride 20 mEq 20 meq PO QAM 10/14/23 10/18/24 05/29/24 tablet,extended release folic acid 1 mg tablet 1 mg PO QAM #30 tabs 12/07/23 10/18/24 05/29/24 carvedilol 12.5 mg tablet 12.5 mg PO BID 12/28/23 10/18/24 05/29/24 fluticasone fur. 200 mcg-umeclid 1 inh inhalation QAM 12/28/23 10/18/24 05/28/24 62.5 mcg-vilant 25 mcg inhalat.powder (Trelegy Ellipta) lorazepam 1 mg tablet 1 mg PO Q6 PRN Anxiety 10/18/24 10/18/24 Unknown sertraline 50 mg tablet 50 mg PO QAM 10/18/24 10/18/24 Unknown tramadol 50 mg tablet 50 mg PO Q6 PRN Pain 10/18/24 10/18/24 Unknown Active Medications Generic Name Dose Route Start Last Admin Trade Name Freq PRN Reason Stop Dose Admin Acetaminophen 500 mg 10/18/24 02:07 10/19/24 17:59 Acetaminophen 500 Mg Tab PO 11/17/24 02:06 500 mg Q6H PRN Administration fever/pain Atorvastatin Calcium 80 mg 10/18/24 09:00 10/20/24 09:32 Atorvastatin 40 Mg Tab PO 11/17/24 08:59 80 mg QAM MARANDA Administration Baclofen 10 mg 10/18/24 04:40 10/19/24 21:37 Baclofen 10 Mg Tab PO 11/17/24 04:39 10 mg TID PRN Administration Muscle Spasm Docusate Sodium 100 mg 10/18/24 16:15 10/20/24 09:32 Docusate Sodium 100 Mg Cap PO 11/17/24 16:14 Not Given BID MARANDA Fluticasone Furoate 1 puffs 10/18/24 09:00 10/20/24 09:30 Fluticasone Furoate 200mcg 14 Puffs/Inhaler INH 11/17/24 08:59 1 puffs DAILY MARANDA Administration Folic Acid 1 mg 10/18/24 09:00 10/20/24 09:31 Folic Acid 1 Mg Tab PO 11/17/24 08:59 1 mg QAM MARANDA Administration Ceftriaxone Sodium 2,000 mg in 50 mls @ 100 mls/hr 10/18/24 16:00 10/19/24 17:12 Rocephin IV 10/28/24 15:59 Infused Q24H MARANDA Infusion Pantoprazole Sodium 40 mg in 10 mls @ 5 mls/min 10/18/24 21:00 10/20/24 09:30 Protonix IV 11/17/24 20:59 5 mls/min BID MARANDA Administration Lactobacillus Acidophilus 1,250 mg 10/19/24 09:00 10/20/24 09:31 Advanced Probiotic 625 Mg Capsule PO 11/18/24 08:59 1,250 mg DAILY MARANDA Administration Lorazepam 0.5 mg 10/18/24 02:07 10/18/24 21:33 Lorazepam 0.5 Mg Tab PO 11/17/24 02:06 0.5 mg TID PRN Administration Anxiety Magnesium Citrate 148 ml 10/18/24 16:45 10/19/24 16:44 Magnesium Citrate 296 Ml/Btl PO 11/17/24 16:44 Not Given TODAY@ MARANDA Melatonin 6 mg 10/18/24 02:06 10/19/24 21:37 Melatonin 3 Mg Tab PO 11/17/24 02:05 6 mg HS PRN Administration Sleep Miscellaneous 1 each 10/20/24 08:59 10/20/24 09:30 Remove Nicoderm Patch N/A 11/19/24 08:58 1 each DAILY@0859 MARANDA Administration Multivitamins 1 tab 10/18/24 09:00 10/20/24 09:31 Multivitamin Tab PO 11/17/24 08:59 1 tab QAM MARANDA Administration Nicotine 1 patch 10/19/24 13:15 10/20/24 09:30 Nicotine 14 Mg/24 Hr Patch TD 11/18/24 13:14 1 patch QAM MARANDA Administration Polyethylene Glycol 17 gm 10/19/24 09:00 10/20/24 09:32 Polyethylene (Miralax) 17 Gm Pack PO 11/18/24 08:59 Not Given DAILY MARANDA Sertraline HCl 50 mg 10/18/24 09:00 10/20/24 09:32 Sertraline Hcl 50 Mg Tablet PO 11/17/24 08:59 50 mg QAM MARANDA Administration Thiamine HCl 100 mg 10/19/24 09:00 10/20/24 09:32 Thiamine Hcl 100 Mg Tab PO 11/18/24 08:59 100 mg QAM MARANDA Administration Umeclidinium/Vilanterol 1 puffs 10/18/24 09:00 10/20/24 09:29 Umeclidinium/Vilanterol 62.5/25mcg 7 Puffs/Inhaler INH 11/17/24 08:59 1 puffs DAILY MARANDA Administration Past Medical History Medical History On home oxygen therapy 2 LPM at HS Acute respiratory failure with hypoxia hospitalized at [facility] November 2023 for this, still having some shortness of breath with activity, at rest is okay Hepatic steatosis CAD (coronary artery disease) GERD (gastroesophageal reflux disease) controlled, stable per pt Kidney disease following with [facility]. Sleep apnea no device Plaque psoriasis Hx of seasonal allergies Spinal stenosis History of shingles 05/2022, PRN gabapentin for chronic right eye irritation/pain from shingles Assessment & Plan (1) Anemia: Plan: 59 year old male w/ history of nonocclusive CAD, PVD, hypertension, hyperlipidemia, COPD, SAROJ, hepatic steatosis,, chronic anemia (baseline hemoglobin of 8), anxiety disorder, ongoing tobacco/alcohol abuse admitted w/ anemia and syncope, HGB 4.7 s/p transfusion of 5 units w/ HGB of 7.7. Past Family History Family History Father Diabetes Past Surgical History Surgical History History of cardiac catheterization 02/2023 [facility]. no stents. History of back surgery lumbar > "bone spur shaving" Hx of arthroscopic knee surgery Left Hx of foot surgery Left Hx of inguinal hernia repair History of esophagogastroduodenoscopy (EGD) Social History Smoking Status: Former smoker tobacco type: cigarettes Smoking cigarettes per day: 3 cigarettes/day Do You Dip or Chew Tobacco: No Hx Alcohol Use: Yes Alcohol type: hard liquor alcohol intake frequency: 3 or more drinks per day Alcohol Intake Frequency Comment: drinks 3-4 shots of liquor at night to sleep, last drink 10/17 Hx Substance Use: No substance use type: does not use Physical Exam Vital Signs Last Vital Signs Temp 37.1 C 10/20/24 11:26 Pulse 85 10/20/24 11:26 Resp 18 10/20/24 11:26 BP 131/74 10/20/24 11:26 Pulse Ox 95 10/20/24 11:26 O2 Del Method Room Air 10/20/24 11:26 O2 Flow Rate 0 10/18/24 07:47 Testing Laboratory Results 10/19/24 17:43 10/19/24 05:19 PT 11.3 Seconds (9.0-12.0) 10/17/24 21:47 INR 1.0 (0.9-1.1) 10/17/24 21:47 Urine Color Yamini 10/18/24 Unknown Urine Appearance Clear (Clear) 10/18/24 Unknown Urine pH 6.0 (4.5-7.5) 10/18/24 Unknown Ur Specific [place] 1.022 (1.000-1.030) 10/18/24 Unknown Urine Protein Trace (Negative) H 10/18/24 Unknown Urine Glucose (UA) Negative (Negative) 10/18/24 Unknown Urine Ketones Trace (Negative) H 10/18/24 Unknown Urine Nitrite Positive (Negative) A 10/18/24 Unknown Ur Leukocyte Esterase Trace (Negative) H 10/18/24 Unknown Urine WBC (Auto) 0-5 /hpf (0-5) 10/18/24 Unknown Urine RBC (Auto) 0-2 /hpf (0-2) 10/18/24 Unknown U Hyaline Cast (Auto) 11-20 /lpf (0-2) H 10/18/24 Unknown U Epithel Cells (Auto) 0-2 /hpf (0-2) 10/18/24 Unknown Urine Bacteria (Auto) 1+ (None Seen) H 10/18/24 Unknown Blood Type O Positive 10/17/24 23:17 Antibody Screen NEGATIVE 10/17/24 23:17 10/18/24 Unknown Urine Culture - Final Urine,Clean Catch Staphylococcus epidermidis Electrocardiogram Date: 10/17/24 DICTATED BY: Pramod Hair MD Test Reason : Blood Pressure : */* mmHG Vent. Rate : 84 BPM Atrial Rate : 84 BPM P-R Int : 152 ms QRS Dur : 136 ms QT Int : 424 ms P-R-T Axes : 15 -6 6 degrees QTcB Int : 501 ms Normal sinus rhythm Right bundle branch block Abnormal ECG When compared with ECG of 17-Oct-2024 21:39, (unconfirmed) Right bundle branch block is now Present Confirmed by Pramod Hair ([id number]) on 10/18/2024 12:46:05 PM Chest X-Ray Date: 10/17/24 Exam(s): XR CXR 1 VIEW EXAM: XR Chest, 1 View CLINICAL HISTORY: Reason for exam: syncope. TECHNIQUE: Frontal views of the chest. COMPARISON: No relevant prior studies available. FINDINGS: Lungs: No consolidation. Pleural space: No pleural effusion is seen. No pneumothorax. Heart: Heart is normal in size.. Mediastinum: There is mild uncoiling of thoracic aorta.. IMPRESSION: No acute pulmonary disease.
--- NOTE | 2024-10-20 14:15 | GI REPORT ---
[facility] Patient: PAVITHRA CHENG : 1965 Sex at : Male Age: 59 Years Procedure: Upper GI endoscopy Date: 10/20/2024 Attending Physician: Bruce Myers MD Referring MD: Referred Self Indications: - Melena - Suspected upper gastrointestinal bleeding Medications: - Monitored Anesthesia Care Complications: - No immediate complications. Estimated Blood Loss: - Estimated blood loss: None. - Estimated blood loss was minimal. Procedure: - Prior to the procedure, a History and Physical was performed, and patient medications and allergies were reviewed. The patient's tolerance of previous anesthesia was also reviewed. The risks and benefits of the procedure and the sedation options and risks were discussed with the patient. All questions were answered, and informed consent was obtained. Prior Anticoagulants: The patient has taken no anticoagulant or antiplatelet agents. ASA Grade Assessment: III - A patient with severe systemic disease. After reviewing the risks and benefits, the patient was deemed in satisfactory condition to undergo the procedure. - The pediatric colonoscope was introduced through the mouth and advanced to the third part of the duodenum. - The upper GI endoscopy was accomplished without difficulty. - The patient tolerated the procedure well. Findings: - A small hiatal hernia was present. - One cratered esophageal ulcer with no stigmata of recent bleeding was found at the gastroesophageal junction. The lesion was 8 mm in largest dimension. - LA Grade C (one or more mucosal breaks continuous between tops of 2 or more mucosal folds, less than 75% circumference) esophagitis with no bleeding was found at the gastroesophageal junction (on retroflexion). - Diffuse moderate inflammation characterized by erythema and congestion (edema) was found in the gastric antrum and in the gastric body. Biopsies were taken with a cold forceps for Helicobacter pylori testing. - The examined duodenum was normal. Impression: - Small hiatal hernia. - Esophageal ulcer with no stigmata of recent bleeding. - LA Grade C reflux esophagitis with no bleeding. - Acute gastritis, characterized by erythema and congestion (edema). Biopsied. - Normal examined duodenum. Recommendation: - Discharge patient to home (ambulatory). - Resume previous diet. - Continue present medications. - Await pathology results. - Return to primary care physician as previously scheduled. - Patient has a contact number available for emergencies. The signs and symptoms of potential delayed complications were discussed with the patient. Return to normal activities tomorrow. Written discharge instructions were provided to the patient. - Use Protonix (pantoprazole) 40 mg PO BID for 1 week. - Use Protonix (pantoprazole) 40 mg PO daily for 3 months. Procedure Code(s): - 47482, Esophagogastroduodenoscopy, flexible, transoral; with biopsy, single or multiple Diagnosis Code(s): - K92.1, Melena (includes Hematochezia) - K44.9, Diaphragmatic hernia without obstruction or gangrene - K22.10, Ulcer of esophagus without bleeding - K21.00, Gastro-esophageal reflux disease with esophagitis, without bleeding - K29.00, Acute gastritis without bleeding CPT(R) - 2023 copyright [employer]. All Rights Reserved. The CPT codes, CCI edits and ICD codes generated are intended as suggestions and were generated based on input data. These codes are preliminary and upon medical biller/coder review may be revised to meet current compliance and payer requirements. The provider is responsible for the final determination of appropriate codes, and modifiers. Bruce Myers MD This document has been electronically signed. Note Initiated:10/20/2024 Note Completed:10/20/2024 2:15 PM \\[email or web address]\[email or web address]\Results\LIVE\[id number]
--- NOTE | 2024-10-20 14:18 | GI REPORT ---
[facility] Patient: PAVITHRA CHENG : 1965 Sex at : Male Age: 59 Years Procedure: Colonoscopy Date: 10/20/2024 Attending Physician: Bruce Myers MD Referring MD: Referred Self Indications: - Screening for colorectal malignant neoplasm Medications: - Monitored Anesthesia Care Complications: - No immediate complications. Estimated Blood Loss: - Estimated blood loss: None. - Estimated blood loss was minimal. Procedure: - Prior to the procedure, a History and Physical was performed, and patient medications and allergies were reviewed. The patient's tolerance of previous anesthesia was also reviewed. The risks and benefits of the procedure and the sedation options and risks were discussed with the patient. All questions were answered, and informed consent was obtained. Prior Anticoagulants: The patient has taken no anticoagulant or antiplatelet agents. ASA Grade Assessment: III - A patient with severe systemic disease. After reviewing the risks and benefits, the patient was deemed in satisfactory condition to undergo the procedure. - The pediatric colonoscope was introduced through the anus and advanced to the terminal ileum, with identification of the appendiceal orifice and ileocecal valve. - The colonoscopy was performed without difficulty. - The patient tolerated the procedure well. - The quality of the bowel preparation was adequate. - The terminal ileum, ileocecal valve, appendiceal orifice, and rectum were photographed. Findings: - The terminal ileum appeared normal. - The exam was otherwise without abnormality on direct and retroflexion views. - Four sessile polyps were found in the transverse colon. The polyps were medium (7-9 mm) in size. These polyps were removed with a cold snare. Resection and retrieval were complete. - A medium (7-9 mm) polyp was found in the transverse colon. The polyp was semi-pedunculated. The polyp was removed with a hot snare. Resection and retrieval were complete. - Non-bleeding hemorrhoids were found during retroflexion. The hemorrhoids were small. - Multiple small-mouthed diverticula were found in the sigmoid colon. Impression: - The examined portion of the ileum was normal. - The examination was otherwise normal on direct and retroflexion views. - Four medium (7-9 mm) polyps in the transverse colon, removed with a cold snare. Resected and retrieved. - One medium (7-9 mm) polyp in the transverse colon, removed with a hot snare. Resected and retrieved. - Non-bleeding hemorrhoids. - Diverticulosis in the sigmoid colon. Recommendation: - Discharge patient to home (ambulatory). - Resume previous diet. - Continue present medications. - Repeat colonoscopy date to be determined after pending pathology results are reviewed for surveillance based on pathology results. - Return to referring physician as previously scheduled. - Patient has a contact number available for emergencies. The signs and symptoms of potential delayed complications were discussed with the patient. Return to normal activities tomorrow. Written discharge instructions were provided to the patient. Procedure Code(s): - 51454, Colonoscopy, flexible; with removal of tumor(s), polyp(s), or other lesion(s) by snare technique Diagnosis Code(s): - Z12.11, Encounter for screening for malignant neoplasm of colon - D12.3, Benign neoplasm of transverse colon (hepatic flexure or splenic flexure) - K64.9, Unspecified hemorrhoids - K57.30, Diverticulosis of large intestine without perforation or abscess without bleeding CPT(R) - 2023 copyright [employer]. All Rights Reserved. The CPT codes, CCI edits and ICD codes generated are intended as suggestions and were generated based on input data. These codes are preliminary and upon supervising nurse review may be revised to meet current compliance and payer requirements. The provider is responsible for the final determination of appropriate codes, and modifiers. Bruce Myers MD This document has been electronically signed. Note Initiated:10/20/2024 Note Completed:10/20/2024 2:18 PM \\[email or web address]\Provation\Results\[email or web address]\[id number]
--- NOTE | 2024-10-20 14:26 | Anesthesiology Progress Note ---
Date of Service October 20, 2024 Anesthesia Post Procedure Vital Signs Vital Signs: Temp Pulse Pulse Resp BP BP Pulse Ox 10/20/24 14:05 90 16 133/69 97 10/20/24 13:17 36.8 C 97 H 20 123/77 97 10/20/24 11:26 37.1 C 85 18 131/74 95 10/20/24 07:00 78 10/20/24 04:20 36.7 C 88 18 122/73 93 10/19/24 23:55 36.8 C 90 102/66 96 10/19/24 22:36 93 H 10/19/24 20:32 10/19/24 19:31 36.2 C L 82 18 165/92 H 97 10/19/24 15:29 37.0 C 84 18 146/76 H 95 O2 Del Method 10/20/24 14:05 Room Air 10/20/24 13:17 Room Air 10/20/24 11:26 Room Air 10/20/24 07:00 10/20/24 04:20 Room Air 10/19/24 23:55 Room Air 10/19/24 22:36 10/19/24 20:32 Room Air 10/19/24 19:31 Room Air 10/19/24 15:29 Room Air Transfer of Care Handoff Completed per policy Notes Mental Status: alert / awake / arousable and participated in evaluation Patient Amnestic to Procedure: Yes Nausea / Vomiting: adequately controlled Pain: adequately controlled Airway Patency, RR, SpO2: stable & adequate BP & HR: stable & adequate Hydration State: stable & adequate Anesthetic Complications: no major complications apparent and Pt Satisfied with anesthetic care
[2024-10-20] MEDS: LIDOCAINE 2% 2 ML VIAL/AMP(20MG/ML) INFIL ONE (15:10)
[2024-10-20] MEDS: PROPOFOL IV EMULSION 10 MG/ML 20 ML VIAL IV ONE (15:10)
--- NOTE | 2024-10-20 15:44 | Hospitalist Progress Note ---
Date of Service October 20, 2024 Assessment & Plan (1) Acute on chronic anemia: Plan: History of chronic anemia with hemoglobin around 10 Presented with progressive weakness and noted to have hemoglobin of 4.7 1 episode of black stool but heme has been negative so far and no evidence of hematemesis and/or bright blood per rectum Received 6 units of PRBC so far and the hemoglobin is maintaining at around 7.7 this morning Anemia workup including peripheral blood smear, reticulocyte , iron studies and vitamin levels are unremarkable Suspected acute GI blood loss likely the cause of anemia Has been on Protonix drip and has history of GERD and also hepatic steatosis from use of alcohol in the past Hold home aspirin for now until GI bleed definitely ruled out. Appreciate GI input and recommendation EGD showed esophageal ulcer with no stigmata of recent bleeding, LA grade C reflux esophagitis with no bleeding and acute gastritis with normal duodenum Colonoscopy did show for medium 7 to 9 mm polyp in the transverse colon which were removed and 1 medium 79 mm polyp in the transverse colon removed with hot snare and it also showed nonbleeding hemorrhoids Await pathology report Advised to have diet advanced and PPI twice daily for 1 week and then daily for 3 months Will recheck blood tomorrow and if stable he can be discharged (2) GERD (gastroesophageal reflux disease): (3) Hepatic steatosis: Plan: Transaminitis, underlying hepatic steatosis, possible alcoholic hepatitis RAFA S at risk protocol, DT precautions Replace electrolytes (4) Hypotension: Plan: Hypotension Secondary to hypovolemia, possible GI bleed given progressive anemia, initial FOBT done at the ER was negative Relatively high Coreg dose contributory (5) CAD (coronary artery disease): Plan: hx nonocclusive CAD, PVD (renal artery stenosis as per records), patient nonco mpliant with home aspirin Rx Denies any cardiac symptoms of palpitation or chest pain or shortness of breath (6) Chronic obstructive pulmonary disease: Plan: No evidence of acute exacerbation Denies any cough, wheezing or shortness of breath at rest and saturating normally on room air (7) Sleep disorder breathing: Plan: history of obstructive sleep apnea (8) Neurogenic claudication due to lumbar spinal stenosis: Plan: History of lumbar spinal stenosis remains asymptomatic now and also noted to have T12 compression fracture: noted in CTAP. Patient with no pain, likely subacute fracture. Follow-up with orthospine upon discharge. 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 Follow-up with orthopedics on discharge. Patient currently with no hip pain. He has not been having any acute pain from above findings but will need to have an appointment with the orthopedic surgeon as an outpatient Hyperlipidemia, on statin Rx Anxiety disorder, at baseline Ongoing tobacco/alcohol abuse-Nicotine replacement therapy as needed DVT prophylaxis. SCDs re: possible GI bleed Full code Text document was generated using [employer] voice recognition software. It may contain grammatical or spelling errors. Kindly contact undersigned for clarification of any documentation item in question. Admission and Anticipated Discharge Date Admission Date: October 18, 2024 Subjective 10/19/2024 Patient was seen and examined in telemetry unit He has been feeling weak and tired but denies any chest pain, shortness of breath or palpitation Denies any shortness of breath at rest No hematemesis and/or melena or any bright red blood 10/20/2024 The patient was seen and examined in telemetry unit He has been feeling much better and denies any symptoms of abdominal pain, nausea and/or vomiting He does not have any black stool and/or bleeding per rectum and denies any hematemesis Review of Systems Review of Systems: All systems reviewed and are unremarkable except as noted below Physical Exam Physical Exam: Lying in bed without any acute distress Constitutional: well developed, well nourished, + ill appearing and + obese Eyes: PERRL, conjunctivae normal, anicteric sclerae ENMT: external ear and nose normal, oropharynx normal Neck: trachea midline, no thyromegaly Respiratory: no respiratory distress Auscultation: lungs clear to auscultation bilaterally Cardiovascular: Rate/Rhythm: regular rate and regular rhythm; not tachycardic Heart Sounds: normal S1 and normal S2; no murmur Extremities: no edema Gastrointestinal (Abdomen): Inspection/Auscultation: normal bowel sounds; abdomen not distended Percussion/Palpation: abdomen soft; abdomen nontender Neurologic: normal touch/pain/proprioception and moves all extremities; no focal motor deficits Psychiatric: A+Ox3, euthymic affect Lymphatic: no cervical or axillary lymphadenopathy Results & Data Results & Data Vital Signs (Past 12 Hours) Vital Signs Temp Pulse Pulse Resp BP BP Pulse Ox 10/20/24 14:52 36.5 C 76 18 121/70 94 10/20/24 14:35 76 16 123/80 95 10/20/24 14:20 82 16 130/80 94 10/20/24 14:05 90 16 133/69 97 10/20/24 13:17 36.8 C 97 H 20 123/77 97 10/20/24 11:26 37.1 C 85 18 131/74 95 10/20/24 07:00 78 10/20/24 04:20 36.7 C 88 18 122/73 93 O2 Del Method 10/20/24 14:52 Room Air 10/20/24 14:35 Room Air 10/20/24 14:20 Room Air 10/20/24 14:05 Room Air 10/20/24 13:17 Room Air 10/20/24 11:26 Room Air 10/20/24 07:00 10/20/24 04:20 Room Air Laboratory Results Short CBC 10/19/24 Range/Units 17:43 Hgb 8.2 L (14.0-18.0) g/dl Hct 25.3 L (42.0-52.0) % Medications Administered Current Inpatient Medications Acetaminophen (Acetaminophen 500 Mg Tab) 500 mg PO Q6H PRN PRN Reason: fever/pain Stop: 11/17/24 02:06 Last Admin: 10/19/24 17:59 Dose: 500 mg Albuterol (Albut/Ipratrop 3mg/0.5mg Neb 3 Ml Vial) 3 ml NEB Q2H PRN; Protocol PRN Reason: sob wheeze Stop: 11/17/24 04:37 Atorvastatin Calcium (Atorvastatin 40 Mg Tab) 80 mg PO QAM MARANDA Stop: 11/17/24 08:59 Last Admin: 10/20/24 09:32 Dose: 80 mg Baclofen (Baclofen 10 Mg Tab) 10 mg PO TID PRN PRN Reason: Muscle Spasm Stop: 11/17/24 04:39 Last Admin: 10/19/24 21:37 Dose: 10 mg Docusate Sodium (Docusate Sodium 100 Mg Cap) 100 mg PO BID MARANDA Stop: 11/17/24 16:14 Last Admin: 10/20/24 09:32 Dose: Not Given Fluticasone Furoate (Fluticasone Furoate 200mcg 14 Puffs/Inhaler) 1 puffs INH DAILY MARANDA Stop: 11/17/24 08:59 Last Admin: 10/20/24 09:30 Dose: 1 puffs Folic Acid (Folic Acid 1 Mg Tab) 1 mg PO QAM [facility] Stop: 11/17/24 08:59 Last Admin: 10/20/24 09:31 Dose: 1 mg Promethazine HCl (Phenergan) 6.25 mg in 50.25 mls @ 201 mls/hr IV Q6H PRN PRN Reason: Nausea And Vomiting Stop: 11/17/24 02:08 Ceftriaxone Sodium (Rocephin) 2,000 mg in 50 mls @ 100 mls/hr IV Q24H [facility] Stop: 10/28/24 15:59 Last Infusion: 10/19/24 17:12 Dose: Infused Lactobacillus Acidophilus (Advanced Probiotic 625 Mg Capsule) 1,250 mg PO DAILY [facility] Stop: 11/18/24 08:59 Last Admin: 10/20/24 09:31 Dose: 1,250 mg Lorazepam (Lorazepam 2 Mg/1 Ml Vial) 1 mg IV ONE PRN; Protocol PRN Reason: EtoH Withdrawal AWSS 6-10 Lorazepam (Lorazepam 0.5 Mg Tab) 0.5 mg PO TID PRN PRN Reason: Anxiety Stop: 11/17/24 02:06 Last Admin: 10/18/24 21:33 Dose: 0.5 mg Magnesium Citrate (Magnesium Citrate 296 Ml/Btl) 148 ml PO TODAY@ [facility] Stop: 11/17/24 16:44 Last Admin: 10/19/24 16:44 Dose: Not Given Melatonin (Melatonin 3 Mg Tab) 6 mg PO HS PRN PRN Reason: Sleep Stop: 11/17/24 02:05 Last Admin: 10/19/24 21:37 Dose: 6 mg Miscellaneous (Remove Nicoderm Patch) 1 each N/A DAILY@0859 [facility] Stop: 11/19/24 08:58 Last Admin: 10/20/24 09:30 Dose: 1 each Multivitamins (Multivitamin Tab) 1 tab PO QAM [facility] Stop: 11/17/24 08:59 Last Admin: 10/20/24 09:31 Dose: 1 tab Nicotine (Nicotine 14 Mg/24 Hr Patch) 1 patch [facility] [place] Stop: 11/18/24 13:14 Last Admin: 10/20/24 09:30 Dose: 1 patch Oxycodone HCl (Oxycodone Hcl Ir 5 Mg Tab (Immediate Release)) 5 mg PO Q4H PRN PRN Reason: Pain Stop: 11/01/24 02:06 Pantoprazole Sodium (Pantoprazole 40 Mg Tab) 40 mg PO BID [facility] Stop: 11/19/24 20:59 Polyethylene Glycol (Polyethylene (Miralax) 17 Gm Pack) 17 gm PO DAILY [facility] Stop: 11/18/24 08:59 Last Admin: 10/20/24 09:32 Dose: Not Given Sertraline HCl (Sertraline Hcl 50 Mg Tablet) 50 mg PO QAM [facility] Stop: 11/17/24 08:59 Last Admin: 10/20/24 09:32 Dose: 50 mg Thiamine HCl (Thiamine Hcl 100 Mg Tab) 100 mg PO QAM [facility] Stop: 11/18/24 08:59 Last Admin: 10/20/24 09:32 Dose: 100 mg Umeclidinium/Vilanterol (Umeclidinium/Vilanterol 62.5/25mcg 7 Puffs/Inhaler) 1 puffs INH DAILY [facility]ANDA Stop: 11/17/24 08:59 Last Admin: 10/20/24 09:29 Dose: 1 puffs (6) Chronic obstructive pulmonary disease COPD type: COPD with acute exacerbation Qualified Code(s): J44.1 - Chronic obstructive pulmonary disease with (acute) exacerbation
[2024-10-20 20:27] VITALS: RESP 18
[2024-10-20] MEDS: PANTOprazole 40 MG TAB PO SCH (20:41)
[2024-10-21 06:44] LABS: Basophils # (auto) 0.05 K/uL (0.00-0.20); Basophils % (auto) 0.5 %; Eosinophils # (auto) 0.15 K/uL (0.00-0.50); Eosinophils % (auto) 1.5 %; Hemoglobin 7.8 g/dl (14.0-18.0); Lymphocytes # (auto) 1.17 K/uL (1.20-3.40); Lymphocytes % (auto) 11.6 %; Mean Corpuscular Hemoglobin 29.2 pg (25.0-34.0); Mean Corpuscular Hgb Conc 32.5 g/dL (32.0-36.0); Mean Corpuscular Volume 89.9 fL (80.0-100.0); Mean Platelet Volume 10.2 fL (9.4-12.4); Monocytes # (auto) 0.88 K/uL (0.11-0.59); Monocytes % (auto) 8.7 %; Neutrophils # (auto) 7.74 K/uL (1.40-6.50); Neutrophils % (auto) 76.7 %; Nucleated RBC # (auto) 0.04 K/uL (0.00-0.12); Nucleated RBC % (auto) 0.4 %; Platelet Count 317 K/uL (130-400); RDW Coefficient of Variation 17.4 % (11.5-14.5); Red Blood Count 2.67 M/uL (4.70-6.10); White Blood Count 10.09 K/ul (4.8-10.8)
[2024-10-21 07:05] LABS: BUN Creatinine Ratio 13.2 (10-20); Creatinine Clr Calc Pharmacy 147.4 ml/min; Potassium 3.3 mmol/L (3.5-5.1)
[2024-10-21 07:06] LABS: Polychromasia 1+; Tear Drop Cells 1+
[2024-10-21] MEDS: POTASSIUM CHLORIDE CRTAB 20 MEQ TABCR PO STA (08:19)
[2024-10-21 11:02] VITALS: BP 143/87; PULSE 75; TEMP 97.9; O2SAT 94
[2024-10-21 13:22] LABS: Hematocrit (blood only) 23.5 % (42.0-52.0); Hemoglobin 7.6 g/dl (14.0-18.0)
--- NOTE | 2024-10-21 14:30 | Discharge Summary ---
Date of Service October 21, 2024 Admission HPI Per Admitting Provider History obtained from patient and records. Medical history significant for nonocclusive CAD, PVD, hypertension, hyperlipidemia, COPD, SAROJ, hepatic steatosis as per records, chronic anemia (baseline hemoglobin of 8), anxiety disorder, ongoing tobacco/alcohol abuse. Last confinement December 2023 under orthopedic spine service for LSS radiculopathy status post decompression surgery. Patient seen at PCPs office on follow-up visit 3 weeks ago. SBP noted to be 80s at the office. Progressive hemoglobin drop to 8 over the last few months. Dark stools as per patient account few months ago. Denies chest pain, unusual SOB, abdominal pain symptoms. Anemia workup ordered by PCP which patient has to comply with. Patient Coreg decreased in dose. Patient increasingly weak over the last 2 weeks. Near syncope symptoms on standing up. Denies headache. No recent black or bloody stools. Usual cough symptoms attributed to COPD. Patient brought to ER for evaluation. SBP 80s upon arrival at the ER. FOBT done at the ER by ER provider was negative. 2 units PRBC transfused at the ER. 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 Admission Exam Per Admitting Provider GENERAL: Comfortable, pleasant, slightly anxious, obese, no respiratory distress SKIN: Pallor, warm HEENT: Alopecia, pale palpebral conjunctivae, no ptosis, dry buccal mucosa NECK : Supple, no tenderness CHEST : Decreased breath sounds, no tenderness HEART : RRR, no obvious murmurs ABDOMEN: Some distention, nontender EXTREMITIES : No LE swelling/tenderness, no other conspicuous deformities noted NEUROLOGIC : Coherent, no facial asymmetry, no other gross focality Principal Diagnosis Ac on Chr Anemia, likely UGI bleed Discharge Exam GENERAL: Comfortable, pleasant, obese, no respiratory distress SKIN: Pallor, warm HEENT: Alopecia, pale palpebral conjunctivae, no ptosis, moist buccal mucosa NECK : Supple, no tenderness CHEST : Decreased breath sounds, no tenderness HEART : RRR, no obvious murmurs ABDOMEN: Some distention, nontender EXTREMITIES : No LE swelling/tenderness, no other conspicuous deformities noted NEUROLOGIC : Coherent, no facial asymmetry, no other gross focality Discharge Data Allergies Allergy/AdvReac Type Severity Reaction Status Date / Time TONIA Inhibitors AdvReac Severe ALESSANDRO Verified 01/13/24 09:28 ARB-Angiotensin Receptor AdvReac Severe ALESSANDRO Verified 12/28/23 09:35 Antagonist prednisone AdvReac Mild "jitterines Verified 12/28/23 09:35 s" Consultations 10/18/24 00:40 ED Decision to Admit Stat 10/18/24 16:30 Consult Gastroenterology Routine Procedures Performed Operation Date: 10/20/24 16:30 Actual Procedures p EGD Biopsy Cytology - Bruce Myers MD s Colonoscopy Polypectomy - Bruce Myers MD Ordered Studies 10/18/24 08:46 CT Abd and Pelvis [CT abd pelvis wo con] Routine Hospital Course (1) Acute on chronic anemia: Plan 59-year-old male with PMH of nonocclusive CAD, PVD, HTN, HLD, COPD, SAROJ, hepatic steatosis, chronic anemia [baseline hemoglobin of 8], anxiety disorder, ongoing tobacco/alcohol abuse who complained of dark loose stools few months ago presented 10/18 with complaint of increasingly weak over the last 2 weeks TIER OVER. Patient denies current dark stools or blood in the stool TIER OVER, FOBT was negative in the ED, denied chest pain/shortness of breath/abdominal pain/trauma/bruise. Patient reports near syncope symptoms on standing up. Patient denies headache. Patient reports baseline cough with clear sputum. Denies hematuria and hemoptysis. He was managed for the following: Acute on chronic anemia, likely secondary to blood loss Likely GI bleed, possibly acute GI bleed: iso chronic alcohol and tobacco use. Patient reports dark stools few months ago, presents with progressive weakness o jose eduardo the last 2 weeks TIER OVER. Currently denies blood in the stool or black stool, FOBT was negative in the ED. At presentation, denied chest pain, unusual SOB, abdominal pain, bruise, trauma, headache, hemoptysis, hematuria. Reported progressive weakness and near syncope symptoms on standing up. Admitting hemoglobin of 4.7, MCV 93. CTAP with no retroperitoneal hematoma. Status post 5 unit PRBC and status post colonoscopy and EGD scope on 10/20. Scope studies were reviewed, Discussed with the patient. GI evaluated, recommends Protonix twice a day for 1 week followed by daily Protonix for next 3 months. Patient to follow-up with GI upon discharge. Patient denies any blood in stool or black stool. Patient's hemoglobin has been stable above 7.5 since last 2 days, patient has been independent in the room without any shortness of breath or chest pain or dizziness or lightheadedness. Patient is hemodynamically stable and he reports he is back to his baseline strength. Patient would like to go home. Patient's aspirin is on hold upon discharge until further evaluation as an outpatient at his PCP office. Urinary tract infection: Urine culture came back staph epidermidis, likely contaminant. Patient with no urinary signs and symptoms. Discontinue antibiotic. Hypotension: Likely secondary to anemia/hypovolemia. Blood pressure improved. Coreg dose has been decreased (12.5 mg bid to 3.125 mg bid) as OP, resume at this lower dose. c/w other home BP meds. T12 compression fracture: noted in CTAP. Patient with no pain, likely subacute fracture. Follow-up with orthospine upon discharge. 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 Follow-up with orthopedics on discharge. Patient currently with no hip pain. Other chronic medical conditions: Continue with/resume home meds as and when able. hx nonocclusive CAD, PVD (renal artery stenosis as per records), patient noncompliant with home aspirin Rx hyperlipidemia, on statin Rx COPD, usual cough/SOB symptoms as per patient SAROJ, patient awaiting device Transaminitis, underlying hepatic steatosis, possible alcoholic hepatitis Hypokalemia anxiety disorder, at baseline ongoing tobacco/alcohol abuse: smokes 3-5 cig/day, drinks 3-5 shots of whiskey a day. AWSS protocol. Monitor and replete electrolytes. Nicotine replacement therapy as needed DVT prophylaxis. SCDs re: possible GI bleed Full code Patient is being discharged home with following instructions at the point of discharge: Follow-up with your primary care physician within a week time and likely you will need labs CBC/CMP/magnesium/phosphorus. You were evaluated for possible GI bleed, you underwent upper and lower scope. You will be discharged on Protonix. Follow-up with GI in 2 to 4 weeks time upon discharge. You were noted to have T12 compression fracture, you will benefit by following up with orthospine upon discharge. Coordinate with your PCP office to set up the referral. You are also noted to have possible avascular necrosis of bilateral femoral heads, you complained of no hip pain. You will benefit from following up with orthopedics on discharge in about 2 to 4 months time or earlier if you have hip pain. Coordinate with your PCP office to set up the referral. I strongly encourage you to maintain abstinence from alcohol and tobacco. Take your medications as prescribed. Please make sure that you are able to get your medications today by calling your pharmacy before you leave the hospital so that your treatment continuity is not broken. Text document was generated using [employer] voice recognition software. It may contain grammatical or spelling errors. Kindly contact undersigned for clarification of any documentation item in question. Home Health Attestation I certify that this patient is under my care and that I, or a physicians clinical assistant professor working with me, had a face to-face encounter that meets the home health [id number] encounter requirements with this patient. The encounter with the patient was in whole, or in part, for the following medical condition, which is the primary reason for home health care (list medical condition): I certify that, based on my findings, the following services are medically necessary home health services: My clinical findings support the need for the above services because: Further, I certify that my clinical findings support that this patient is homebound (i.e. absences from home require considerable and taxing effort and are for medical reasons or christian services or infrequently or of short duration when for other reasons) because: Certification for Home Health Services: Based on the above findings, I certify that this patient is confined to the home and needs intermittent residential care, physical therapy and/or speech therapy or continues to need occupational therapy. The patient is under my care, and I have initiated the establishment of the plan of care. This patient will be followed by a physician who will periodically review the plan of care. Total Time Total Time Spent Total Time Spent (In Minutes): 45 Discharge Plan Discharge Items Patient Disposition: Home - Self-Care Reason For Visit: HYPOTENSION, ANEMIA Discharge Diagnosis: Acute on chronic anemia, Likely UGI bleed Hypotension likely secondary to hypovolemia in the setting of acute anemia Activity: Resume your previous activity Non-emergency contact: Primary Care Provider Call non-emergency contact if: you have any medication questions, your symptoms worsen and your temperature is above 101 Follow-up/Referrals: Omer Wayne MD [Primary Care Provider] - Diet: Heart Healthy Addtl Attending Provider Instructions: Follow-up with your primary care physician within a week time and likely you will need labs CBC/CMP/magnesium/phosphorus. You were evaluated for possible GI bleed, you underwent upper and lower scope. You will be discharged on Protonix. Follow-up with GI in 2 to 4 weeks time upon discharge. You were noted to have T12 compression fracture, you will benefit by following up with orthospine upon discharge. Coordinate with your PCP office to set up the referral. You are also noted to have possible avascular necrosis of bilateral femoral heads, you complained of no hip pain. You will benefit from following up with orthopedics on discharge in about 2 to 4 months time or earlier if you have hip pain. Coordinate with your PCP office to set up the referral. I strongly encourage you to maintain abstinence from alcohol and tobacco. Take your medications as prescribed. Please make sure that you are able to get your medications today by calling your pharmacy before you leave the hospital so that your treatment continuity is not broken. Pending Studies at Discharge: No Stand-Alone Forms: [facility] [employer], Smoking Cessation Medications and DC Order Prescriptions: New nicotine 7 mg/24 hr Patch 24 Hour 1 patch transdermal QAM Qty: 28 0RF pantoprazole 40 mg Tablet,Delayed Release (Dr/Ec) 40 mg PO UD Qty: 37 0RF Rx Instructions: 1 tab twice a day for 1 week, then daily multivitamin with folic acid [Daily-Karen (with folic acid)] 400 mcg Tablet 1 tab PO QAM 30 Days Qty: 30 0RF thiamine HCl (vitamin B1) 100 mg Tablet 100 mg PO QAM 30 Days Qty: 30 0RF carvedilol [Coreg] 3.125 mg tablet 3.125 mg PO BID Qty: 60 0RF Rx Instructions: must administer with a meal/food Continued atorvastatin 80 mg tablet 80 mg PO QAM baclofen 10 mg tablet 10 mg PO TID PRN (Reason: Muscle Spasm) ipratropium-albuterol 0.5 mg-3 mg(2.5 mg base)/3 mL solution for nebulization 3 ml inhalation Q6H PRN (Reason: wheezing/severe shortness of breath) Qty: 90 0RF Patient Comments: has not been using this 12/28/23 furosemide 20 mg tablet 20 mg PO QAM potassium chloride 20 mEq tablet extended release 20 meq PO QAM tramadol 50 mg tablet 50 mg PO Q6 PRN (Reason: Pain) lorazepam 1 mg tablet 1 mg PO Q6 PRN (Reason: Anxiety) sertraline 50 mg tablet 50 mg PO QAM folic acid 1 mg Tablet 1 mg PO QAM Qty: 30 0RF Trelegy Ellipta 200-62.5-25 mcg blister with device 1 inh inhalation QAM Held aspirin 81 mg Tablet,Delayed Release (Dr/Ec) 81 mg PO QAM Qty: 30 0RF Hold Instructions: Resume on 10/28/24. Until further eval of your Hemoglobin by your PCP in a week time Discontinued carvedilol 12.5 mg tablet 12.5 mg PO BID Discharge Orders: Discharge Order (Routine); Ordered 10/21/24 Ordered By: Edgar Ellis Admission Data Admit Date/Time: 10/18/24 01:53 Attending Provider: Edgar Ellis Admit Provider: Lanre Berry Primary Care Provider: Omer Wayne Other Providers: Lanre Berry; Bruce Myers; Edgar Ellis Other Interventions: Discharge Summary Assessment (RN) Last Done: 10/20/24 14:13
== END 2024-10-21 15:29 | disposition home or self-care (01) | DRG 812 ==
LOC: ED 21:36 → SUATTDRO 10-18 01:53 → 2E 10-18 01:53

== ENCOUNTER 2024-11-18 13:39 | Inpatient (IN) ==
--- NOTE | 2024-11-18 14:08 | Emergency Department Note ---
Impression & Plan Shortness of breath, Anemia, Pneumonia, Transaminitis ED Provider Note NAME: PAVITHRA CHENG AGE: 59 SEX: M : 1965 ARRIVES VIA: Walk-In INFORMANT: Patient ED PROVIDER(S): Abdelrahman Senior DO CHIEF COMPLAINT: Shortness of breath HPI: Patient is a 59-year-old male with a past medical history of hypertension, anemia, RSV, alcohol abuse, tobacco abuse, COPD and hypertension who presents to the ER for shortness of breath. Symptoms started earlier this morning and have gotten worse. He notes he is unable to move without becoming significantly dyspneic. Denies any chest pain or belly pain. No nausea, vomiting, or diarrhea. No dysuria, urgency, or frequency. Admits to wearing oxygen but only at night with his CPAP. He otherwise does not wear oxygen at all. He does have a runny nose but admits no new cough or congestion that he is aware of. No recent trips or travel. No blood clots. ADDITIONAL HISTORY OBTAINED: Per HPI Chronic Medical/Social Conditions Affecting Care: Per HPI PAST MEDICAL HISTORY:See Below PAST SURGICAL HISTORY:See Below FAMILY HISTORY:See Below SOCIAL HISTORY:See Below HOME MEDICATIONS:See Below ALLERGIES:See Below VITALS:See Below PHYSICAL EXAMINATION: GENERAL: Sitting up in bed, alert, ill-appearing, dyspneic with conversation EYE EXAM: normal conjunctiva. OROPHARYNX: no exudate, no erythema, lips, buccal mucosa, and tongue normal and mucous membranes are moist NECK: supple, no nuchal rigidity, no adenopathy, non-tender LUNGS: Diffuse wheezing bilaterally. Normal chest wall mechanics HEART: no murmurs, S1 normal and S2 normal ABDOMEN: abdomen soft, non-tender, normo-active bowel sounds, no masses, no rebound or guarding. UPPER EXTREMITIES: upper extremities are grossly normal. LOWER EXTREMITIES: No pitting edema. NEURO EXAM: Normal sensorium, cranial nerves II-XII grossly intact, normal speech, no gross weakness of arms, no gross weakness of legs. MEDICAL DECISION MAKING: Patient is a 59-year-old male who presents ER for the above-stated complaint. IV was established and blood work was obtained. Labs show no significant leukocytosis but a mild anemia 11.1. INR unremarkable. VBG with a pH of 7.46 and a CO2 of 33. BMP was unremarkable. Mild transaminitis. T. bili 0.8. Troponin was negative. BNP 43. Pro-Octavio 0.1. Viral panel was negative. Chest x-ray was clean. CT angio the chest showed atelectasis versus early pneumonia. Patient was initially seen in 81 and placed on 3 L nasal cannula. He was given neb treatment steroids and IV antibiotics. He was updated at bedside. Respiratory symptoms did appear to be improving slightly. He was discussed with the hospitalist for further evaluation management and treatment. Consults/Care Managements Discussions: Per [facility] Triage Nursing notes reviewed. Limited review of prior medical records performed Vital Signs: reviewed and remarkable for hypothermic, tachycardic and tachypneic Differential diagnosis: Differential diagnosis includes etiologies such as sepsis, UTI, pneumonia, metabolic, electrolyte abnormalities, cardiac sources, intracerebral event, toxicologic, neurological, as well as others were entertained. ER treatment provided: See below Diagnostics interpreted by me include EKG and cardiac monitoring as listed below: -Cardiac Monitoring: An order was placed for continuous cardiac monitoring. The monitor shows a rate of 110 with sinus rhythm. -ECG: Sinus tachycardia rate of 112 Left axis Right bundle branch block QTc 515 -Laboratory studies:Interpreted by me as stated above in MDM and shown below. Imaging studies: Xrays: As interpreted by me: Portable AP upright 1 view of the chest shows no focal Lutrate CTs show: CT angio the chest shows atelectasis versus pneumonia Procedures:none Critical Care: I have personally spent 33 minutes of critical care time in the direct management of this patient. This includes bedside care, interpretation of diagnostic studies, and testing, discussion with consultants, patient, and family members, and other required patient management activities. This 33 minutes is in excess of all separately billable procedures. Past Med/Surg History Problem List (Updated 11/18/24 @ 17:11 by Abdelrahman Senior DO) Transaminitis (Acute) Pneumonia (Acute) Shortness of breath (Acute) Acute on chronic anemia Hypotension Near syncope (Acute) Anemia (Acute) Neurogenic claudication due to lumbar spinal stenosis Sleep disorder breathing RSV (respiratory syncytial virus infection) (Acute) Lab test negative for COVID-19 virus (Acute) Encounter for pre-operative examination Alcohol use disorder (Chronic) Obesity (BMI 30.0-34.9) Anemia (Acute) Tobacco use disorder Chronic obstructive pulmonary disease (Chronic) hospitalized at [facility] November 2023 for this, still having some shortness of breath with activity, at rest is okay Hypertension (Chronic) controlled, stable per pt Medical History On home oxygen therapy 2 LPM at HS Acute respiratory failure with hypoxia hospitalized at [facility] November 2023 for this, still having some shortness of breath with activity, at rest is okay Hepatic steatosis CAD (coronary artery disease) GERD (gastroesophageal reflux disease) controlled, stable per pt Kidney disease following with [facility]. Sleep apnea no device Plaque psoriasis Hx of seasonal allergies Spinal stenosis History of shingles 05/2022, PRN gabapentin for chronic right eye irritation/pain from shingles Surgical History History of cardiac catheterization 02/2023 [facility]. no stents. History of back surgery lumbar > "bone spur shaving" Hx of arthroscopic knee surgery Left Hx of foot surgery Left Hx of inguinal hernia repair History of esophagogastroduodenoscopy (EGD) Family History Father Diabetes Social History Smoking Status: Current every day smoker Tobacco Type: Cigarettes Cigarettes Per Day: 3 cigarettes/day; Second Hand Exposure: No; Do You Dip or Chew Tobacco: No; Hx Alcohol Use: Yes Alcohol type: hard liquor Alcohol Intake Frequency: 4 or More x per/Week Alcohol Intake Frequency Comment: 2-12 beers 5x/week Hx Substance Use: No Preferred Language: Omani Communication Ability: Effective 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 Beliefs That Will Affect Care: None Current Living Situation: Family Current Living Situation Comment: lives with mother Feels Safe at Home: Yes Assistive Devices: Walker Allergies Allergies Allergy/AdvReac Type Severity Reaction Status Date / Time TONIA Inhibitors AdvReac Severe ALESSANDRO Verified 01/13/24 09:28 ARB-Angiotensin Receptor AdvReac Severe ALESSANDRO Verified 12/28/23 09:35 Antagonist prednisone AdvReac Mild "jitterines Verified 12/28/23 09:35 s" Home Meds Home Medications Medication Instructions Recorded Confirmed atorvastatin 80 mg tablet 80 mg PO QAM 03/16/23 11/18/24 baclofen 10 mg tablet 10 mg PO TID PRN Muscle Spasm 06/09/23 11/18/24 furosemide 20 mg tablet 20 mg PO QAM 10/14/23 11/18/24 potassium chloride 20 mEq 20 meq PO QAM 10/14/23 11/18/24 tablet,extended release fluticasone fur. 200 mcg-umeclid 1 inh inhalation QAM 12/28/23 11/18/24 62.5 mcg-vilant 25 mcg inhalat.powder (Trelegy Ellipta) lorazepam 1 mg tablet 1 mg PO Q6 PRN Anxiety 10/18/24 11/18/24 sertraline 50 mg tablet 50 mg PO QAM 10/18/24 11/18/24 tramadol 50 mg tablet 50 mg PO Q6 PRN Pain 10/18/24 11/18/24 Previous Rx's Medication Instructions Recorded aspirin 81 mg tablet,delayed 81 mg PO QAM #30 tabs 03/09/23 release ipratropium 0.5 mg-albuterol 3 mg 3 ml inhalation Q6H PRN 06/11/23 (2.5 mg base)/3 mL nebulization wheezing/severe shortness of soln breath #90 mL folic acid 1 mg tablet 1 mg PO QAM #30 tabs 12/07/23 carvedilol 3.125 mg tablet (Coreg) 3.125 mg PO BID #60 tabs 10/21/24 multivitamin with folic acid 400 1 tab PO QAM 30 days #30 tabs 10/21/24 mcg tablet (Daily-Karen (with folic acid)) nicotine 7 mg/24 hr daily 1 patch transdermal QAM #28 ea 10/21/24 transdermal patch pantoprazole 40 mg tablet,delayed 40 mg PO UD #37 tabs 10/21/24 release thiamine HCl (vitamin B1) 100 mg 100 mg PO QAM 30 days #30 tabs 10/21/24 tablet Results & Data (ED) Vital Signs Vital Signs - 24 hr 11/18/24 13:50 11/18/24 14:28 11/18/24 14:41 Temperature 35.6 C L Temperature Source Temporal Artery Scan Pulse Rate 116 H 114 H Pulse Rate [Apical] 111 H Respiratory Rate 25 H 20 Respiratory Effort / Characteristics Spontaneous Respiratory Depth Shallow Blood Pressure 114/76 Blood Pressure [Right Arm] 130/98 Blood Pressure Mean 88 Blood Pressure Mean [Right Arm] 108 Pulse Oximetry 97 97 Oxygen Delivery Method Room Air Nasal Cannula Oxygen Flow Rate 5 Sepsis Recent Fever Within 48 Hours No Sepsis New/Unexplained Change in Mental Status No Sepsis Action Taken by Nursing No Action Required 11/18/24 14:41 11/18/24 15:29 11/18/24 15:36 Temperature 36.5 C Temperature Source Oral Pulse Rate Pulse Rate [Apical] Respiratory Rate Respiratory Effort / Characteristics Labored Respiratory Depth Blood Pressure Blood Pressure [Right Arm] Blood Pressure Mean Blood Pressure Mean [Right Arm] Pulse Oximetry 94 Oxygen Delivery Method Nasal Cannula Oxygen Flow Rate 2 Sepsis Recent Fever Within 48 Hours Sepsis New/Unexplained Change in Mental Status Sepsis Action Taken by Nursing Laboratory Data 11/18/24 14:46 11/18/24 14:46 Lab Results 11/18/24 11/18/24 Range/Units 14:45 14:46 WBC 10.26 (4.8-10.8) K/ul RBC 3.56 L (4.70-6.10) M/uL Hgb 11.1 L (14.0-18.0) g/dl Hct 34.1 L (42.0-52.0) % MCV 95.8 (80.0-100.0) fL MCH 31.2 (25.0-34.0) pg MCHC 32.6 (32.0-36.0) g/dL RDW Std Deviation 76.9 H (36.4-46.3) fL RDW Coeff of Rogelio 22.2 H (11.5-14.5) % Plt Count 216 (130-400) K/uL MPV 9.0 L (9.4-12.4) fL Immature Gran % (Auto) 0.4 % Neut % (Auto) 89.9 % Lymph % (Auto) 5.4 % Bledsoe % (Auto) 3.9 % Eos % (Auto) 0.1 % Baso % (Auto) 0.3 % Neut # (Auto) 9.23 H (1.40-6.50) K/uL Lymph # (Auto) 0.55 L (1.20-3.40) K/uL Bledsoe # (Auto) 0.40 (0.11-0.59) K/uL Eos # (Auto) 0.01 (0.00-0.50) K/uL Baso # (Auto) 0.03 (0.00-0.20) K/uL Immature Gran # (Auto) 0.04 (0.01-0.20) K/uL Anisocytosis Present PT 11.5 (9.0-12.0) Seconds INR 1.1 (0.9-1.1) VBG pH 7.46 H (7.36-7.41) VBG pCO2 33 L (38-50) mmHg VBG pO2 47 mmHg VBG HCO3 24 mmol/L VBG O2 Saturation 74.3 % VBG Base Excess 0.3 mEq/L Sodium 140 (136-145) mmol/L Potassium 3.9 (3.5-5.1) mmol/L Chloride 104 (98-107) mmol/L Carbon Dioxide 23 (21-32) mmol/L Anion Gap 13 H (3-11) BUN 9 (6-23) mg/dl Creatinine 0.68 (0.6-1.4) mg/dl Est Cr Clr Drug Dosing 149.4 ml/min eGFR 105.75 BUN/Creatinine Ratio 13.2 (10-20) Glucose 105 H (70-99(Fasting)) mg/dl Calcium 8.1 L (8.6-10.3) mg/dl Total Bilirubin 0.8 (0.2-1.0) mg/dl AST 117 H (13-39) U/L ALT 59 H (7-52) U/L Alkaline Phosphatase 228 H (34-104) U/L Troponin I High Sens 14.3 (0-20) pg/ml B-Natriuretic Peptide 43 (0-100) pg/ml Total Protein 6.4 (6.0-8.3) gm/dl Albumin 3.2 L (3.4-5.0) gm/dl Globulin 3.2 (2.5-4.0) gm/dl Albumin/Globulin Ratio 1.0 (0.9-2) Procalcitonin 0.10 (0-0.5) ng/ml Adenovirus (PCR) Not Detected (NotDetected) B. pertussis DNA (PCR) Not Detected (NotDetected) B.parapertussis DNA PCR Not Detected (NotDetected) C. pneumoniae DNA (PCR) Not Detected (NotDetected) Coronavirus OC43 (PCR) Not Detected (NotDetected) Coronavirus HKU1 (PCR) Not Detected (NotDetected) Coronavirus 229E (PCR) Not Detected (NotDetected) SARS-CoV-2 (PCR) Not Detected (NotDetected) Coronavirus NL63 (PCR) Not Detected (NotDetected) Human Metapneumovir PCR Not Detected (NotDetected) Influenza Type A (PCR) Not Detected (NotDetected) Influenza Type B (PCR) Not Detected (NotDetected) M. pneumoniae (PCR) Not Detected (NotDetected) Parainfluenza 1 (PCR) Not Detected (NotDetected) Parainfluenza 2 (PCR) Not Detected (NotDetected) Parainfluenza 3 (PCR) Not Detected (NotDetected) Parainfluenza 4 (PCR) Not Detected (NotDetected) RSV (PCR) Not Detected (NotDetected) Entero/Rhino (PCR) Not Detected (NotDetected) Administered Medications Discontinued Medications Albuterol (Albut/Ipratrop 3mg/0.5mg Neb 3 Ml Vial) 6 ml NEB NOW STA; Protocol Stop: 11/18/24 14:05 Last Admin: 11/18/24 15:02 Dose: 6 ml Documented By: ANJALI Dexamethasone Sodium Phosphate (DexamethasonePf 10 Mg/Ml Vial) 10 mg IV NOW ONE Stop: 11/18/24 14:09 Last Admin: 11/18/24 15:02 Dose: 10 mg Documented By: ANJALI Ceftriaxone Sodium (Rocephin) 2,000 mg in 50 mls @ 100 mls/hr IV NOW STA Stop: 11/18/24 14:37 Last Infusion: 11/18/24 15:36 Dose: Infused Documented By: Admin: 11/18/24 15:02 Dose: 100 mls/hr Documented By: ANJALI Ioversol (Optiray 320 125ml) 115 ml IV ONCE ONE Stop: 11/18/24 14:57 Last Admin: 11/18/24 14:57 Dose: 115 ml Documented By: CRAIG Imaging Data Radiologist's Impression: Chest X-Ray 11/18/24 13:55 XR chest 1V portable CLINICAL HISTORY: SOB COMPARISON STUDY: 10/17/2024 FINDINGS: Heart size and pulmonary vasculature are normal. No effusion or consolidation. No pneumothorax. IMPRESSION: No acute findings. ACT 112: Negative or not required by law. Electronically signed by: Jaylen German M.D. 11/18/2024 2:27 PM Chest CTA 11/18/24 14:19 CT angio chest PE protocol CT DOSE: 911.67 mGy.cm HISTORY: PE. TECHNIQUE: Multiple CTA images of the chest were obtained after the intravenous administration of 120 ml Optiray. Coronal and sagittal MIPS were obtained from the axial data set and were submitted for review. All measurements were obtained according to NASCET criteria. A dose lowering technique was utilized adhering to the principles of ALARA. COMPARISON STUDY: 12/01/2023 FINDINGS: There is increased mild reticular and patchy opacity in the dependent lung bases, right greater than left, atelectasis versus early pneumonia. There is mild emphysema. No other pulmonary consolidation or pleural effusion. No pneumothorax. No enlarged adenopathy. No pericardial effusion. There are diffuse coronary artery calcifications. No thoracic aortic dissection or aneurysm. No pulmonary embolism seen. There are thoracic spine degenerative changes. IMPRESSION: 1. No pulmonary embolism seen. 2. Atelectasis versus early pneumonia in the dependent lung bases. ACT 112: Negative or not required by law. The above report was generated using voice recognition software. It may contain grammatical, syntax or spelling errors. Electronically signed by: Jaylen German M.D. 11/18/2024 3:11 PM Discharge Plan Visit Data Chief Complaint: Shortness of Breath/Dyspnea Stated Complaint: COPD/SOB, ABD P/BREATHING, BLURRY VIS, LEGS NUMB ED Provider: Abdelrahman Senior Discharge Problem: Shortness of breath, Anemia, Pneumonia, Transaminitis Forms Stand Alone Forms: My [facility] [place] [facility] Prescriptions Prescriptions: No Action atorvastatin 80 mg tablet 80 mg PO QAM aspirin 81 mg Tablet,Delayed Release (Dr/Ec) 81 mg PO QAM Qty: 30 0RF Hold Instructions: Resume on 10/28/24. Until further eval of your Hemoglobin by your PCP in a week time baclofen 10 mg tablet 10 mg PO TID PRN (Reason: Muscle Spasm) ipratropium-albuterol 0.5 mg-3 mg(2.5 mg base)/3 mL solution for nebulization 3 ml inhalation Q6H PRN (Reason: wheezing/severe shortness of breath) Qty: 90 0RF Patient Comments: has not been using this 12/28/23 furosemide 20 mg tablet 20 mg PO QAM potassium chloride 20 mEq tablet extended release 20 meq PO QAM tramadol 50 mg tablet 50 mg PO Q6 PRN (Reason: Pain) lorazepam 1 mg tablet 1 mg PO Q6 PRN (Reason: Anxiety) sertraline 50 mg tablet 50 mg PO QAM nicotine 7 mg/24 hr Patch 24 Hour 1 patch transdermal QAM Qty: 28 0RF pantoprazole 40 mg Tablet,Delayed Release (Dr/Ec) 40 mg PO UD Qty: 37 0RF Rx Instructions: 1 tab twice a day for 1 week, then daily multivitamin with folic acid [Daily-Karen (with folic acid)] 400 mcg Tablet 1 tab PO QAM 30 Days Qty: 30 0RF thiamine HCl (vitamin B1) 100 mg Tablet 100 mg PO QAM 30 Days Qty: 30 0RF carvedilol [Coreg] 3.125 mg tablet 3.125 mg PO BID Qty: 60 0RF Rx Instructions: must administer with a meal/food folic acid 1 mg Tablet 1 mg PO QAM Qty: 30 0RF Trelegy Ellipta 200-62.5-25 mcg blister with device 1 inh inhalation QAM Referrals Referrals: Omer Wayne MD [Primary Care Provider] - Discharge Problem: Anemia Qualifiers: Anemia type: unspecified type Qualified Code(s): D64.9 - Anemia, unspecified Pneumonia Qualifiers: Pneumonia type: due to unspecified organism Laterality: unspecified laterality Lung location: unspecified part of lung Qualified Code(s): J18.9 - Pneumonia, unspecified organism
--- NOTE | 2024-11-18 14:29 | XRay Report ---
XR chest 1V portable CLINICAL HISTORY: SOB COMPARISON STUDY: 10/17/2024 FINDINGS: Heart size and pulmonary vasculature are normal. No effusion or consolidation. No pneumotho rax. IMPRESSION: No acute findings. ACT 112: Negative or not required by law. Electronically signed by: Jaylen German M.D. 11/18/2024 2:27 PM
[2024-11-18 14:53] LABS: Base Excess VBG 0.3 mEq/L; HCO3 VBG 24 mmol/L; Oxygen Saturation VBG 74.3 %; PCO2 VBG 33 mmHg (38-50); PO2 VBG 47 mmHg; pH VBG 7.46 (7.36-7.41)
[2024-11-18] MEDS: OPTIRAY 320 125ml IV ONE (14:57)
[2024-11-18] MEDS: dexAMETHasone**PF** 10 MG/ML VIAL IV ONE (15:02)
[2024-11-18] MEDS: cefTRIAXone SODIUM 2,000 MG/50 ML BAG IV STA (15:02)
[2024-11-18] MEDS: ALBUT/IPRATROP 3MG/0.5MG NEB 3 ML VIAL NEB STA (15:02)
[2024-11-18 15:04] LABS: Basophils # (auto) 0.03 K/uL (0.00-0.20); Basophils % (auto) 0.3 %; Eosinophils # (auto) 0.01 K/uL (0.00-0.50); Eosinophils % (auto) 0.1 %; Hematocrit (blood only) 34.1 % (42.0-52.0); Hemoglobin 11.1 g/dl (14.0-18.0); Immature Granulocytes # (auto) 0.04 K/uL (0.01-0.20); Immature Granulocytes % (auto) 0.4 %; Lymphocytes # (auto) 0.55 K/uL (1.20-3.40); Lymphocytes % (auto) 5.4 %; Mean Corpuscular Hemoglobin 31.2 pg (25.0-34.0); Mean Corpuscular Hgb Conc 32.6 g/dL (32.0-36.0); Mean Corpuscular Volume 95.8 fL (80.0-100.0); Monocytes % (auto) 3.9 %; Neutrophils # (auto) 9.23 K/uL (1.40-6.50); Neutrophils % (auto) 89.9 %; Platelet Count 216 K/uL (130-400); RDW Coefficient of Variation 22.2 % (11.5-14.5); RDW Standard Deviation 76.9 fL (36.4-46.3); Red Blood Count 3.56 M/uL (4.70-6.10); White Blood Count 10.26 K/ul (4.8-10.8)
--- NOTE | 2024-11-18 15:12 | CT Scan Report ---
CT angio chest PE protocol CT DOSE: 911.67 mGy.cm HISTORY: PE. TECHNIQUE: Multiple CTA images of the chest were obtained after the intravenous administration of 120 ml Optiray. Coronal and sagittal MIPS were obtained from the axial data set and were submitted for review. All measurements were obtained according to NASCET criteria. A dose lowering technique was u tilized adhering to the principles of ALARA. COMPARISON STUDY: 12/01/2023 FINDINGS: There is increased mild reticular and patchy opacity in the dependent lung bases, right gre ater than left, atelectasis versus early pneumonia. There is mild emphysema. No other pulmonary conso lidation or pleural effusion. No pneumothorax. No enlarged adenopathy. No pericardial effusion. There are diffuse coronary artery calcifications. No thoracic aortic dissection or aneurysm. No pulmonary embolism seen. There are thoracic spine degenerative changes. IMPRESSION: 1. No pulmonary embolism seen. 2. Atelectasis versus early pneumonia in the dependent lung bases. ACT 112: Negative or not required by law. The above report was generated using voice recognition software. It may contain grammatical, syntax o r spelling errors. Electronically signed by: Jaylen German M.D. 11/18/2024 3:11 PM
[2024-11-18 15:18] LABS: Albumin Level 3.2 gm/dl (3.4-5.0); BUN Creatinine Ratio 13.2 (10-20); Bilirubin,Total 0.8 mg/dl (0.2-1.0); Calcium 8.1 mg/dl (8.6-10.3); Creatinine Clr Calc Pharmacy 149.4 ml/min; Globulin 3.2 gm/dl (2.5-4.0); Potassium 3.9 mmol/L (3.5-5.1); Total Protein 6.4 gm/dl (6.0-8.3)
[2024-11-18 15:24] LABS: Troponin I High Sensitivity 14.3 pg/ml (0-20)
[2024-11-18 15:41] LABS: INR 1.1 (0.9-1.1); Prothrombin Time 11.5 Seconds (9.0-12.0)
[2024-11-18 15:48] LABS: Anisocytosis Present
[2024-11-18 15:57] LABS: Adenovirus PCR Not Detected (NotDetected); Bordetella parapertussis PCR Not Detected (NotDetected); Bordetella pertussis PCR Not Detected (NotDetected); Chlamydia pneumoniae PCR Not Detected (NotDetected); Coronavirus 229E PCR Not Detected (NotDetected); Coronavirus CoV-2 (COVID19)PCR Not Detected (NotDetected); Coronavirus HKU1 PCR Not Detected (NotDetected); Coronavirus NL63 PCR Not Detected (NotDetected); Coronavirus OC43PCR Not Detected (NotDetected); Human Metapneumovirus PCR Not Detected (NotDetected); Influenza A PCR Not Detected (NotDetected); Influenza B PCR Not Detected (NotDetected); Mycoplasma pneumoniae PCR Not Detected (NotDetected); Parainfluenza Virus 1 PCR Not Detected (NotDetected); Parainfluenza Virus 2 PCR Not Detected (NotDetected); Parainfluenza Virus 3 PCR Not Detected (NotDetected); Parainfluenza Virus 4 PCR Not Detected (NotDetected); Respiratory Syncytial VirusPCR Not Detected (NotDetected); Rhinovirus/Enterovirus PCR Not Detected (NotDetected)
--- NOTE | 2024-11-18 16:23 | History & Physical Report ---
Date of Service November 18, 2024 Assessment & Plan (1) Acute on chronic anemia: (2) Alcohol use disorder: (3) Obesity (BMI 30.0-34.9): (4) Chronic obstructive pulmonary disease: (5) Hypertension: (6) CAD (coronary artery disease): (7) GERD (gastroesophageal reflux disease): (8) Hepatic steatosis: (9) On home oxygen therapy: Plan Assessment and plan: Acute on chronic hypoxic respiratory failure COPD exacerbation Suspected CAP On 2-3L chronically at bedtime, VBG without acidosis Chest CT with developing pneumonia, continue IV ceftriaxone/Doxy IV Solu-Medrol twice a day, nebulizers, I-S COPD usually managed on Trelegy at home Hx CAD/HLD: Diastolic CHF: Hold aspirin, hold statin with transaminitis Continue carvedilolpatient reports he was taken off of Lasix by PCP Alcohol abuse: Reports drinking 3 shots of whiskey daily, CIWA, CTM Hx SAROJ Continue 3 L oxygen at bedtime Recent GI bleedSeptember 2024 Esophageal ulcer/gastritis Continue to hold aspirin, continue Protonix twice daily A total of 60 minutes was spent on chart review/facilitating plan of care/reviewing diagnostic data/discussion with consultants Full code DVT prophylaxis: SCDs, avoid AC with recent GI bleed History of Present Illness Chief Complaint: Shortness of breath Primary Care Provider: Omer Wayne MD The patient is a 59-year-old male with a past medical history of nonocclusive CAD, PVD, HTN, HLD, COPD, SAROJ on CPAP, hepatic steatosis, anemia with recent GI bleed September 2024 who presents to the ED on 11/18/2024 with complaints of progressive shortness of breath. Patient reports wearing 2-3 L of oxygen at home as needed with sleep. Does report some noncompliance with that on a daily basis. Reports his shortness of breath significantly worsened today. Does report a chronic cough that has not changed recently. Still reports smoking almost a pack of cigarettes a day. Patient also endorses taking 3 shots of whiskey before bed daily. He denies any nausea/vomiting/diarrhea. He denies any fever/chills or other respiratory symptoms. Does report some intermittent wheezing. Patient was admitted to the hospital and discharged on 10/21/2024 for syncope and GI bleed, patient underwent a colonoscopy and EGD at that time that showed a small hiatal hernia, esophageal ulcer with no recent bleeding, grade C esophagitis and inflammationacute gastritis. Colonoscopy showed 5 polyps that were removed and nonbleeding hemorrhoids. The patient's aspirin was placed on hold and he was discharged on Protonix twice a day. On arrival to the ED, labs are remarkable for hemoglobin 11.1, pH 7.46, CO2 33, anion gap 13, AST 117, ALT 59, alk phos 228 BioFire negative Chest x-ray negative Chest CTA negative for PE, atelectasis versus early pneumonia in dependent lung bases noted EKG showed normal sinus rhythm right bundle branch block The patient was given IV Decadron/ceftriaxone and placed on 2 L of oxygen in the ED and will be admitted for further management of pneumonia/COPD exacerbation Allergies Allergy/AdvReac Type Severity Reaction Status Date / Time TONIA Inhibitors AdvReac Severe ALESSANDRO Verified 01/13/24 09:28 ARB-Angiotensin Receptor AdvReac Severe ALESSANDRO Verified 12/28/23 09:35 Antagonist prednisone AdvReac Mild "jitterines Verified 12/28/23 09:35 s" Home Medications Medication Instructions Recorded Confirmed Type aspirin 81 mg tablet,delayed 81 mg PO QAM #30 tabs 03/09/23 11/18/24 Rx release atorvastatin 80 mg tablet 80 mg PO QAM 03/16/23 11/18/24 History baclofen 10 mg tablet 10 mg PO TID PRN Muscle Spasm 06/09/23 11/18/24 History ipratropium 0.5 mg-albuterol 3 mg 3 ml inhalation Q6H PRN 06/11/23 11/18/24 Rx (2.5 mg base)/3 mL nebulization wheezing/severe shortness of soln breath #90 mL furosemide 20 mg tablet 20 mg PO QAM 10/14/23 11/18/24 History potassium chloride 20 mEq 20 meq PO QAM 10/14/23 11/18/24 History tablet,extended release folic acid 1 mg tablet 1 mg PO QAM #30 tabs 12/07/23 11/18/24 Rx fluticasone fur. 200 mcg-umeclid 1 inh inhalation QAM 12/28/23 11/18/24 History 62.5 mcg-vilant 25 mcg inhalat.powder (Trelegy Ellipta) lorazepam 1 mg tablet 1 mg PO Q6 PRN Anxiety 10/18/24 11/18/24 History sertraline 50 mg tablet 50 mg PO QAM 10/18/24 11/18/24 History tramadol 50 mg tablet 50 mg PO Q6 PRN Pain 10/18/24 11/18/24 History carvedilol 3.125 mg tablet (Coreg) 3.125 mg PO BID #60 tabs 10/21/24 11/18/24 Rx multivitamin with folic acid 400 1 tab PO QAM 30 days #30 tabs 10/21/24 11/18/24 Rx mcg tablet (Daily-Karen (with folic acid)) nicotine 7 mg/24 hr daily 1 patch transdermal QAM #28 ea 10/21/24 11/18/24 Rx transdermal patch pantoprazole 40 mg tablet,delayed 40 mg PO UD #37 tabs 10/21/24 11/18/24 Rx release thiamine HCl (vitamin B1) 100 mg 100 mg PO QAM 30 days #30 tabs 10/21/24 11/18/24 Rx tablet Past Med/Surg History Problem List (Updated 11/18/24 @ 17:11 by Abdelrahman Senior DO) Transaminitis (Acute) Pneumonia (Acute) Shortness of breath (Acute) Acute on chronic anemia Hypotension Near syncope (Acute) Anemia (Acute) Neurogenic claudication due to lumbar spinal stenosis Sleep disorder breathing RSV (respiratory syncytial virus infection) (Acute) Lab test negative for COVID-19 virus (Acute) Encounter for pre-operative examination Alcohol use disorder (Chronic) Obesity (BMI 30.0-34.9) Anemia (Acute) Tobacco use disorder Chronic obstructive pulmonary disease (Chronic) hospitalized at [facility] November 2023 for this, still having some shortness of breath with activity, at rest is okay Hypertension (Chronic) controlled, stable per pt Medical History On home oxygen therapy 2 LPM at Acute respiratory failure with hypoxia hospitalized at [facility] November 2023 for this, still having some shortness of breath with activity, at rest is okay Hepatic steatosis CAD (coronary artery disease) GERD (gastroesophageal reflux disease) controlled, stable per pt Kidney disease following with [facility] Nephrology. Sleep apnea no device Plaque psoriasis Hx of seasonal allergies Spinal stenosis History of shingles 05/2022, PRN gabapentin for chronic right eye irritation/pain from shingles Surgical History History of cardiac catheterization 02/2023 [facility]. no stents. History of back surgery lumbar > "bone spur shaving" Hx of arthroscopic knee surgery Left Hx of foot surgery Left Hx of inguinal hernia repair History of esophagogastroduodenoscopy (EGD) Family History Father Diabetes Social History Smoking Status: Current every day smoker Tobacco Type: Cigarettes Cigarettes Per Day: .5 pack a day; Second Hand Exposure: No; Do You Dip or Chew Tobacco: No; Hx Alcohol Use: Yes Alcohol type: hard liquor Alcohol Intake Frequency: 4 or More x per/Week Alcohol Intake Frequency Comment: 2-12 beers 5x/week Hx Substance Use: No Preferred Language: Citizen Of [place] Communication Ability: Effective [employer] Required: No Beliefs That Will Affect Care: None Current Living Situation: Alone and Family Current Living Situation Comment: lives with mom Other Information That Helps Us Care for You: Yes Feels Safe at Home: Yes Safety Concerns: Feels Safe At This Time Assistive Devices: Walker Review of Systems Review of Systems: All systems reviewed & are unremarkable except as noted in HPI & below Physical Exam Constitutional: WD/WN, vitals as above Eyes: PERRL, conjunctivae normal, anicteric sclerae ENMT: external ear and nose normal, oropharynx normal Neck: trachea midline, no thyromegaly Respiratory: normal respiratory effort, lungs clear to auscultation (Lungs are diminished, intermittent wheezing) Cardiovascular: RRR, no murmur, no edema Gastrointestinal (Abdomen): normal bowel sounds, soft, nontender, no hepatosplenomegaly Musculoskeletal: no cyanosis or clubbing, extremities motor strength 5/5 Neurologic: PERRL, EOMI, accommodation nl, no face palsy, no dysarthria Psychiatric: A+Ox3, euthymic affect Lymphatic: no cervical or axillary lymphadenopathy Results & Data Results & Data Vital Signs (Past 12 Hours) Vital Signs Temp Pulse Pulse Resp BP BP Pulse Ox 11/18/24 15:36 94 11/18/24 15:29 36.5 C 11/18/24 14:41 111 H 20 130/98 97 11/18/24 14:28 114 H 11/18/24 13:50 35.6 C L 116 H 25 H 114/76 97 O2 Del Method O2 Flow Rate 11/18/24 15:36 Nasal Cannula 2 11/18/24 15:29 11/18/24 14:41 Nasal Cannula 5 11/18/24 14:28 11/18/24 13:50 Room Air Diagnostic Findings Laboratory Results WBC 10.26 K/ul (4.8-10.8) 11/18/24 14:46 RBC 3.56 M/uL (4.70-6.10) L 11/18/24 14:46 Hgb 11.1 g/dl (14.0-18.0) L 11/18/24 14:46 Hct 34.1 % (42.0-52.0) L 11/18/24 14:46 MCV 95.8 fL (80.0-100.0) 11/18/24 14:46 MCH 31.2 pg (25.0-34.0) 11/18/24 14:46 MCHC 32.6 g/dL (32.0-36.0) 11/18/24 14:46 RDW Std Deviation 76.9 fL (36.4-46.3) H 11/18/24 14:46 RDW Coeff of Rogelio 22.2 % (11.5-14.5) H 11/18/24 14:46 Plt Count 216 K/uL (130-400) 11/18/24 14:46 MPV 9.0 fL (9.4-12.4) L 11/18/24 14:46 Immature Gran % (Auto) 0.4 % 11/18/24 14:46 Neut % (Auto) 89.9 % 11/18/24 14:46 Lymph % (Auto) 5.4 % 11/18/24 14:46 [place] % (Auto) 3.9 % 11/18/24 14:46 Eos % (Auto) 0.1 % 11/18/24 14:46 Baso % (Auto) 0.3 % 11/18/24 14:46 Neut # (Auto) 9.23 K/uL (1.40-6.50) H 11/18/24 14:46 Lymph # (Auto) 0.55 K/uL (1.20-3.40) L 11/18/24 14:46 [place] # (Auto) 0.40 K/uL (0.11-0.59) 11/18/24 14:46 Eos # (Auto) 0.01 K/uL (0.00-0.50) 11/18/24 14:46 Baso # (Auto) 0.03 K/uL (0.00-0.20) 11/18/24 14:46 Immature Gran # (Auto) 0.04 K/uL (0.01-0.20) 11/18/24 14:46 Anisocytosis Present 11/18/24 14:46 PT 11.5 Seconds (9.0-12.0) 11/18/24 14:46 INR 1.1 (0.9-1.1) 11/18/24 14:46 VBG pH 7.46 (7.36-7.41) H 11/18/24 14:46 VBG pCO2 33 mmHg (38-50) L 11/18/24 14:46 VBG pO2 47 mmHg 11/18/24 14:46 VBG HCO3 24 mmol/L 11/18/24 14:46 VBG O2 Saturation 74.3 % 11/18/24 14:46 VBG Base Excess 0.3 mEq/L 11/18/24 14:46 Sodium 140 mmol/L (136-145) 11/18/24 14:46 Potassium 3.9 mmol/L (3.5-5.1) 11/18/24 14:46 Chloride 104 mmol/L (98-107) 11/18/24 14:46 Carbon Dioxide 23 mmol/L (21-32) 11/18/24 14:46 Anion Gap 13 (3-11) H 11/18/24 14:46 BUN 9 mg/dl (6-23) 11/18/24 14:46 Creatinine 0.68 mg/dl (0.6-1.4) 11/18/24 14:46 Est Cr Clr Drug Dosing 149.4 ml/min 11/18/24 14:46 eGFR 105.75 11/18/24 14:46 BUN/Creatinine Ratio 13.2 (10-20) 11/18/24 14:46 Glucose 105 mg/dl (70-99(Fasting)) H 11/18/24 14:46 Calcium 8.1 mg/dl (8.6-10.3) L 11/18/24 14:46 Total Bilirubin 0.8 mg/dl (0.2-1.0) 11/18/24 14:46 AST 117 U/L (13-39) H 11/18/24 14:46 ALT 59 U/L (7-52) H 11/18/24 14:46 Alkaline Phosphatase 228 U/L (34-104) H 11/18/24 14:46 Troponin I High Sens 14.3 pg/ml (0-20) 11/18/24 14:46 B-Natriuretic Peptide 43 pg/ml (0-100) 11/18/24 14:46 Total Protein 6.4 gm/dl (6.0-8.3) 11/18/24 14:46 Albumin 3.2 gm/dl (3.4-5.0) L 11/18/24 14:46 Globulin 3.2 gm/dl (2.5-4.0) 11/18/24 14:46 Albumin/Globulin Ratio 1.0 (0.9-2) 11/18/24 14:46 Procalcitonin 0.10 ng/ml (0-0.5) 11/18/24 14:46 Adenovirus (PCR) Not Detected (NotDetected) 11/18/24 14:45 B. pertussis DNA (PCR) Not Detected (NotDetected) 11/18/24 14:45 B.parapertussis DNA PCR Not Detected (NotDetected) 11/18/24 14:45 C. pneumoniae DNA (PCR) Not Detected (NotDetected) 11/18/24 14:45 Coronavirus OC43 (PCR) Not Detected (NotDetected) 11/18/24 14:45 Coronavirus HKU1 (PCR) Not Detected (NotDetected) 11/18/24 14:45 Coronavirus 229E (PCR) Not Detected (NotDetected) 11/18/24 14:45 SARS-CoV-2 (PCR) Not Detected (NotDetected) 11/18/24 14:45 Coronavirus NL63 (PCR) Not Detected (NotDetected) 11/18/24 14:45 Human Metapneumovir PCR Not Detected (NotDetected) 11/18/24 14:45 Influenza Type A (PCR) Not Detected (NotDetected) 11/18/24 14:45 Influenza Type B (PCR) Not Detected (NotDetected) 11/18/24 14:45 M. pneumoniae (PCR) Not Detected (NotDetected) 11/18/24 14:45 Parainfluenza 1 (PCR) Not Detected (NotDetected) 11/18/24 14:45 Parainfluenza 2 (PCR) Not Detected (NotDetected) 11/18/24 14:45 Parainfluenza 3 (PCR) Not Detected (NotDetected) 11/18/24 14:45 Parainfluenza 4 (PCR) Not Detected (NotDetected) 11/18/24 14:45 RSV (PCR) Not Detected (NotDetected) 11/18/24 14:45 Entero/Rhino (PCR) Not Detected (NotDetected) 11/18/24 14:45 Impressions Chest X-Ray 11/18/24 13:55 XR chest 1V portable CLINICAL HISTORY: SOB COMPARISON STUDY: 10/17/2024 FINDINGS: Heart size and pulmonary vasculature are normal. No effusion or consolidation. No pneumothorax. IMPRESSION: No acute findings. ACT 112: Negative or not required by law. Electronically signed by: Jaylen German M.D. 11/18/2024 2:27 PM Chest CTA 11/18/24 14:19 CT angio chest PE protocol CT DOSE: 911.67 mGy.cm HISTORY: PE. TECHNIQUE: Multiple CTA images of the chest were obtained after the intravenous administration of 120 ml Optiray. Coronal and sagittal MIPS were obtained from the axial data set and were submitted for review. All measurements were obtained according to NASCET criteria. A dose lowering technique was utilized adhering to the principles of ALARA. COMPARISON STUDY: 12/01/2023 FINDINGS: There is increased mild reticular and patchy opacity in the dependent lung bases, right greater than left, atelectasis versus early pneumonia. There is mild emphysema. No other pulmonary consolidation or pleural effusion. No pn eumothorax. No enlarged adenopathy. No pericardial effusion. There are diffuse coronary artery calcifications. No thoracic aortic dissection or aneurysm. No pulmonary embolism seen. There are thoracic spine degenerative changes. IMPRESSION: 1. No pulmonary embolism seen. 2. Atelectasis versus early pneumonia in the dependent lung bases. ACT 112: Negative or not required by law. The above report was generated using voice recognition software. It may contain grammatical, syntax or spelling errors. Electronically signed by: Jaylen German M.D. 11/18/2024 3:11 PM Supervising Physician Co-Signing Physician Notes Patient is a 59-year-old male with history of COPD, SAROJ, hypertension, alcohol use disorder, coronary artery disease, fatty liver and other medical problems presents with history of worsening shortness of breath. He reports chronic cough which is unchanged. He denies any chest pain, nausea, vomiting, abdominal pain. Please review HPI for complete details of presentation. I personally reviewed blood work and imaging studies. BioFire, procalcitonin normal. CTA showed no PE, but showed possible pneumonia at bases. Physical Exam: Vitals signs as noted above General Appearance: Obese, no apparent distress Head: normocephalic, Atraumatic Eyes: normal inspection, EOMI Neck: supple, Trachea midline Respiratory/Chest: Decreased breath sounds, CTA, No accessory muscle use Cardiovascular: S1, S2, No murmur, tachycardia Abdomen/GI:Soft, Non tender, protuberant, bowel sounds present Extremities/Musculoskeletal:normal inspection, trace edema Neurologic/Psych:AAOX3, grossly no focal neurological deficits Skin: normal color, warm Acute on chronic respiratory failure with hypoxia COPD exacerbation Community-acquired pneumonia Transaminitis likely due to hepatic steatosis Empirically started on Rocephin, doxycycline Continue nebs, Solu-Medrol Supplemental oxygen as needed to maintain sats 88 to 92% Monitor LFTs Tobacco, alcohol use disorder Monitor for withdrawal Thread Winder Automatic to quit smoking and drinking alcohol I personally interviewed and examined the patient at bedside. I have reviewed the advanced practitioner's documentation on the date of service referred in note and agree with plan. Patient's care is coordinated with Geo ARCHIBALD. Please refer to the documentation above for details of patient's presentation and for discussion of other issues. I spent a total [id number] coordinating, documenting, and providing care for this patient excluding time spent in the performance of separately billed services or time spent by another provider/QHP. (4) Chronic obstructive pulmonary disease COPD type: COPD with acute exacerbation Qualified Code(s): J44.1 - Chronic obstructive pulmonary disease with (acute) exacerbation
[2024-11-18] MEDS ORDERED: LORazepam 2 MG/1 ML VIAL IV PRN ×2 (17:27→20:44)
[2024-11-18] MEDS ORDERED: GABAPENTIN 1200MG ALCOHOL WITHDRAWAL LOAD PO STA (17:27)
[2024-11-18] MEDS: GABAPENTIN 600 MG TAB PO ONE (18:04)
[2024-11-18] MEDS: ALBUT/IPRATROP 3MG/0.5MG NEB 3 ML VIAL NEB SCH (19:26)
[2024-11-18] MEDS: LORazepam 1 MG TAB PO PRN (19:39)
[2024-11-18] MEDS: DOXYCYCLINE HYCLATE 100 MG CAP PO SCH (20:33)
[2024-11-18] MEDS: carvediloL 3.125 MG TAB PO SCH (20:33)
[2024-11-18] MEDS: PANTOprazole 40 MG TAB PO SCH (20:33)
[2024-11-18] MEDS ORDERED: Ativan IV Alcohol Withdrawal--Active Protocol IV PRN (20:44)
[2024-11-18] MEDS ORDERED: methylPREDNISolone 40 MG in SYRINGE 0 ML IV SCH (21:00)
[2024-11-18] MEDS: methylPREDNISolone 40 MG in SYRINGE 0 ML IV SCH (21:08)
[2024-11-18] MEDS: LEVALBUTEROL 1.25 MG/3 ML NEB NEB SCH (21:16)
[2024-11-18] MEDS: BUDESONIDE 0.5 MG/2 ML VIAL (PULMICORT) NEB SCH (21:19)
[2024-11-18] MEDS: FORMOTEROL 20 MCG/2 ML VIAL NEB SCH (21:19)
[2024-11-18] MEDS: LORazepam 2 MG/1 ML VIAL IV PRN ×2 (21:49→23:04)
[2024-11-18] MEDS: METOPROLOL TARTRATE 1 MG/ML VIAL IV STA ×2 (22:13→23:18)
[2024-11-18] MEDS: GABAPENTIN 600 MG TAB PO SCH (22:31)
--- OUTSIDE RECORDS SUMMARY | 2024-11-18 23:58 | External Medical Summary ---
Author Name Unknown Address Unknown Organization [id number]:[facility] - [address] [place] [id number] Laboratory Report Ordering Provider Test Date Status ESTRELLA GRIMM 10/28/2024 11:33:55 Final Observation Date Value Abnormality Reference (Units ) Status Vitamin B12 10/28/2024 11:33:55 324 [id number] (pg/mL) Final Performing Location [facility] - [address] [place] [address]
--- OUTSIDE RECORDS SUMMARY | 2024-11-18 23:58 | External Medical Summary | Summary of Care ---
Author Name Unknown Organization [facility] Address [address] [place] [address] Phone [phone] Care Team Providers Care Cottrell Operator Name Role Phone Omer Wayne MD Primary Care Provider [phone]- [phone] Reason for Visit * Reason Comments Outpatient Testing Encounter Details Date Type Department Care Team (Late st Contact Info) Description 10/28/2024 11:30 AM EST Laboratory Laboratory, [facility] [address] [facility] [place] [phone] [place], Laboratory [address] [facility] [place], [place] [id number] Anemia, unspecified type; Essential hypertension with goal blood pressure less than 140/90; Encounter for long-term (current) use of medications Allergies Active Allergy Reactions Criticality Noted Date Comments Onel Inhibitors 10/22/2023 To be avoided due to bilateral renal artery stenosis and worsening kidney function when on previously Prednisone 04/07/2023 documented as of this encounter (statuses as of 10/28/2024) Medications EQ Aspirin Adult Low Dose 81 MG Oral Tablet Delayed ReleaseIndications :Coronary artery disease involving [place] coronary artery of [place] heart without angina pectoris Take 1 Tablet by mouth daily. In the morning. 90 Tablet 3 03/11/20 Active Additional Information Patient not taking.Reported on 10/28/2024 Baclofen 10 MG Oral Tablet (Lioresal) Take 1 Tablet by mouth in the morning and 1 Tablet at noon and 1 Tablet before bedtime. 90 Tablet 1 06/08/20 23 Active traMADol HCl 50 MG Oral Tablet (Ultram)Indication s:DDD (degenerative disc disease), lumbar,Spinal stenosis of lumbar region with neurogenic claudication Take 1 Tablet by mouth 2 times a day as needed for Pain, Severe. 30 Tablet 01/01/20 24 Active Additional Information Patient not taking.Reported on 10/28/2024 Furosemide 20 MG Oral Tablet (Lasix)Indications :Hypertensive left ventricular hypertrophy, without heart failure Take 1 Tablet by mouth in the morning. 90 Tablet 3 01/21/20 24 Active Additional Information Patient not taking.Reported on 10/28/2024 Folic Acid 1 MG Oral TabletIndications: Alcohol ingestion, 1-4 drinks per day Take 1 Tablet by mouth in the morning. 90 Tablet 3 01/21/20 24 Active Sertraline HCl 50 MG Oral Tablet (Zoloft) Take 1 Tablet by mouth in the morning. 90 Tablet 3 06/14/20 24 Active Atorvastatin Calcium 80 MG Oral Tablet (Lipitor)Indicatio ns:Coronary artery disease involving [place] coronary artery of [place] heart without angina pectoris,Dyslipide aracely, goal LDL [...] D, by GOLD 2017 classification ([facility]) Inhale 1 Puff by mouth in the morning. 180 Blister Dosing Unit 3 09/28/19 25 Active Carvedilol 3.125 MG Oral Tablet (Coreg) Take 1 Tablet by mouth 2 times a day with morning and evening meals. 10/21/19 25 Active Pantoprazole Sodium 40 MG Oral Tablet Delayed Release (Protonix) Take 1 Tablet by mouth in the morning. 10/21/19 25 Active Daily-Karen Oral Tablet Take 1 Tablet by mouth daily. Active Thiamine 100 MG OR Tablet Take 1 Tablet by mouth in the morning. Active documented as of this encounter (statuses as of 10/28/2024) Active Problems Problem Noted Date Diagnosed Date COPD, group D, by GOLD 2017 classification 11/29 Overview: Per COPD GOLD Classification Pulmonary emphysema 10/26/2023 Renal artery stenosis 10/22/2023 Hypertensive heart disease w ith chronic diastolic congestive heart failure 10/21/2023 Coronary artery disease invo lving [place] heart without angina pectoris 06/08/2023 Hepatic steatosis [...] as of this encounter (statuses as of 10/28/2024) Resolved Problems Problem Noted Date Diagnosed Date [...] as of this encounter (statuses as of 10/28/2024) Social History Tobacco Use Types Packs/Day Years [...] ages 0-17 years) Not on file 01/01/2024 Food Insecurity Answer Date Recorded Within the past 12 months, y ou worried that your food would run out before you got the money to buy more. Patient declined Within the past 12 months, t he food you bought just didn't last and you didn't have money to get more. Patient declined 08/2024 Do you need food for this week? No 01/01/2024 Sex and Gender Information Value Date Recorded Sex Assigned at Male 01/01/2024 2:57 PM EDT Legal Sex Male 5:57 AM EST Gender Identity Male 01/01/2024 2:57 PM EDT Sexual Orientation Straight 01/01/2024 2: 57 PM EDT documented as of this encounter Plan of Treatment Upcoming Encounters Date Type Department Care Team (Latest Contact Info) Description 11/07/2024 9:00 AM EST Office Visit Orthopaedics [facility] [address] [place] [phone] Jag Hansen MD [address] [place] [phone] 11/07/2024 10:00 AM EST Imaging Vascular Lab, [facility] 2nd Floor, [place] [facility] [place] [address] 11/17/2024 2:40 PM EST [facility] [phone] Omer [facility] [place] [address] 11/23/2024 10:30 AM EST Office Visit Sleep Disorders Ctr [facility] [address] [facility] [place] [phone] Jeanette Michael CRNP [address] [facility] [place] [address] 12/07/2024 8:00 AM EDT Office Visit Gastroenterology, [facility] [address] [facility] [place] [address] Dalia Karimi CRNP 132 [facility] [place] [address] 01/18/2025 8:30 AM EDT Office Visit Pulmonary Medicine, [facility] [address] [facility] [place] [address] Ronny Virk MD [address] [place] [address] 01/31/2025 1:00 PM EDT Hospital Encounter ENDO [facility], Endoscopy Room [facility] [address] [facility] [place] [phone] Rishabh Grady DO [address] [place] [address] 01/31/2025 1:00 PM EDT - 01/31/2025 1:30 PM EDT Surgery ENDO [facility], Endoscopy Room [facility] [address] [place] [phone] Rishabh Grady DO [address] [place] [address] COLONOSCOPY FLEXIBLE PROXIMAL DIAGNOSTIC 03/22/2025 11:00 AM EDT Office Visit Cardiology, [facility] [address] [place] [address] Haven Nice PA-C [address] [place] [address] Pending Results Name Type Priority Associated Diagnoses Date /Time CBC WITH WBC DIFFERENTIAL AND ANEMIA REFLEX WORKUP Lab Routine Anemia, unspecified type 10/28/2024 11:33 AM EST COMPREHENSIVE METABOLIC PANEL Lab Routine Essential hypertension with goal blood pressure less than 140/90 10/28/2024 11:33 AM EST MAGNESIUM Lab Routine Encounter for long-term (current) use of medications 10/28/2024 11:33 AM EST PHOSPHORUS Lab Routine Encounter for long-term (current) use of medications 10/28/2024 11:33 AM EST ANEMIA CBC Lab Routine Anemia, unspecified type 10/28/2024 11:33 AM EST DIFFERENTIAL, AUTOMATED Lab Routine Anemia, unspecified type 10/28/2024 11:33 AM EST ANEMIA REFLEX CHEMISTRY HOLD Lab Routine Anemia, unspecified type 10/28/2024 11:33 AM EST Scheduled Procedures Name Priority Associated Diagnoses Date/Ti me COLONOSCOPY FLEXIBLE PROXIMAL DIAGNOSTIC Screen for colon cancer 01/31/2025 1:00 PM EDT Health Maintenance Due Date Last Done Comments Alpha-1 Antitrypsin 1981 Pneumococcal Vaccine: 50+ Years (1 of 2 - PCV) 1982 Cologuard 2008 Fecal Occult Blood Test 2008 Sigmoidoscopy 2008 COVID-19 Vaccine ( season) 2024 Influenza Vaccine (FLU shot) (#1) 2024 Depression Screening 12/31/2024 01/01/2024 GFR 09/28/2025 09/28/2024, 08/22, 09/01/2024, Additional history exists O2 ASSESSMENT COMPLETED IN PAST YEAR FOR COPD 10/28/2025 10/28/2024 Albumin/Creatinine Ratio 10/28/2026 10/28/2023, 02/20 Diabetes Screening 09/28/2027 09/28/2024, 1 11/10/2023, 09/01/2024, Additional history exists DTap/Tdap Vaccines (2 - Td or Tdap) 01/21/2028 01/20/2018 (Declined) Colonoscopy 10/20/2034 10/20/2024 Colorectal Cancer Screening 10/20/2034 HIV Screening Discontinued HPV (Gardasil) Vaccine Aged [...] this encounter Medical Devices Implanted Type Area [employer] Member Device Identifier Shelf Expiration Date Model / Serial / Lot Mesh Plug Prefix Lg [id number] - [id number] Implanted:Qty: 1 on 03/12/2018 by Donovan Raza MD at OR [facility] Right: Groin CR BARD : DAVOL 10/21/2018 [id number] / / [id number] documented as of this encounter Visit Diagnoses Diagnosis Anemia, unspecified type Essential hypertension with goal blood pressure less than 140/90 Encounter for long-term (current) use of medications Encounter for long-term (current) use of other medications Screen for colon cancer Special screening for malignant neoplasms, colon documented in this encounter Care Teams Cottrell Operator Relationship Specialty Start Date End Date Omer Wayne MD PCP - General 02/19/05 documented as of this encounter
--- OUTSIDE RECORDS SUMMARY | 2024-11-18 23:58 | External Medical Summary ---
Author Name Unknown Address Unknown Organization [id number]:[facility] [address] [place] [address] Laboratory Report Ordering Provider Test Date Status ESTRELLA GRIMM 10/28/2024 11:33:55 Final Observation Date Value Abnormality Reference (Units ) Status Magnesium 10/28/2024 11:33:55 1.6 1.5-2.6 (m g/dL) Final Performing Location [facility] - [address] [place] [address]
--- OUTSIDE RECORDS SUMMARY | 2024-11-18 23:58 | External Medical Summary | Summary of Care ---
Author Name Unknown Organization [facility] Address [address] [place] [address] Phone [phone] Care Team Providers Care Hide Mill Man Name Role Phone Omer Wayne MD Primary Care Provider +1- [phone] Reason for Visit * Reason Onset Date Comments Hospital Follow-Up 10/21/2024 Encounter Details Date Type Department Care Team (Late st Contact Info) Description [facility] [address] [place] [phone] Omer Wayne MD [address] [facility] [place] [address] Hospital Follow-Up Allergies Active Allergy Reactions Criticality Noted Date Comments Onel Inhibitors 10/22/2023 To be avoided due to bilateral renal artery stenosis and worsening kidney function when on previously Prednisone 04/07/2023 documented as of this encounter (statuses as of 10/21/2024) Medications EQ Aspirin Adult Low Dose 81 MG Oral Tablet Delayed ReleaseIndications :Coronary artery disease involving [place] coronary artery of [place] heart without angina pectoris Take 1 Tablet [...] Oral Tablet (Lipitor)Indicatio ns:Coronary artery disease involving [place] coronary artery of [place] heart without angina pectoris,Dyslipide aracely, goal LDL [...] GOLD 2017 classification ([facility]) Inhale 1 Puff by mouth in the morning. 180 Blister Dosing Unit 3 09/28/19 25 Active Carvedilol 12.5 MG Oral Tablet (Coreg)Indications :Hypertensive heart disease with chronic diastolic congestive heart failure (HCC) Take 1 Tablet by mouth in the morning and 1 Tablet before bedtime. 180 Tablet 3 09/29/19 25 Active documented as of this encounter (statuses as of 10/21/2024) Active Problems Problem Noted Date Diagnosed Date COPD, group D, by GOLD 2017 classification 11/29 Overview: Per COPD GOLD Classification Pulmonary emphysema 10/26/2023 Renal artery stenosis 10/22/2023 Hypertensive heart disease w ith chronic diastolic congestive heart failure 10/21/2023 Coronary artery disease invo lving [place] heart without angina pectoris 06/08/2023 Hepatic steatosis [...] as of this encounter (statuses as of 10/21/2024) Resolved Problems Problem Noted Date Diagnosed Date [...] as of this encounter (statuses as of 10/21/2024) Social History Tobacco Use Types Packs/Day Years [...] No 01/01/2024 Does the household have a [facility] source of income? (Household - for [...] encounter Miscellaneous Notes * Telephone Encounter - Hillary Rodrigues OSA - 10/21/2024 3:08 PM EST SAROJ Trujillo 10/21/2024 3:08 PM * Telephone Encounter - Mone Emmanuel RN - 10/21/2024 2:38 PM EST Patient seen by [facility] and recommend the following: You were evaluated for possible GI bleed, you underwent upper and lower scope. You will be discharged on Protonix. Follow-up with GI in 2 to 4 weeks time upon discharge. documented in this encounter Plan of Treatment Upcoming Encounters Date Type Department Care Team (Latest Contact Info) Description 11/17/2024 2:40 PM EST Office Visit [facility] [address] [facility] [place] [phone] Omer Wayne MD [address] [facility] [place] [address] 11/23/2024 10:30 AM EST Office Visit Sleep Disorders Ctr [facility] [address] [place] [phone] Jeanette Michael CRNP [address] [place] [address] 01/18/2025 8:30 AM EDT Office Visit Pulmonary Medicine, [facility] [address] [place] [address] Ronny Virk MD [address] [place] [address] 01/31/2025 1:00 PM EDT Hospital Encounter ENDO [facility], Endoscopy Room [facility] [address] [place] [phone] Rishabh Grady, DO [address] [place] [address] 01/31/2025 1:00 PM EDT - 01/31/2025 1:30 PM EDT Surgery ENDO [facility], Endoscopy Room [facility] [address] [place] [phone] Rishabh Grady, DO [address] [place] [address] COLONOSCOPY FLEXIBLE PROXIMAL DIAGNOSTIC Scheduled Procedures Name [...] this encounter Medical Devices Implanted Type Area Child Care Director Device Identifier Shelf Expiration Date Model / Serial / Lot Mesh Plug Prefix Lg [id number] - [id number] Implanted:Qty: 1 on 03/12/2018 by Donovan Raza MD at OR [facility] Right: Groin CR BARD : DAVOL 10/21/2018 [id number] / / [id number] documented as of this encounter Care Teams Hide Mill Man Relationship Specialty Start Date End Date Omer Wayne MD PCP - General 02/19/05 documented as of this encounter
--- OUTSIDE RECORDS SUMMARY | 2024-11-18 23:58 | External Medical Summary ---
Author Name Unknown Address Unknown Organization [id number]:[facility] [address] [place] [address] Laboratory Report Ordering Provider Test Date Status ESTRELLA GRIMM 10/28/2024 11:33:55 Final Observation Date Value Abnormality Reference (Units ) Status Iron 10/28/2024 11:33:55 57 45-176 (ug/dL) Final Iron-binding capacity 10/28/2024 11:33:55 223 Below low normal 250-425 (ug/dL) Final Transferrin Sat % 10/28/2024 11:33:55 26 15-55 (%) Final Performing Location [facility] [address] [place] [address]
--- OUTSIDE RECORDS SUMMARY | 2024-11-18 23:58 | External Medical Summary ---
Author Name Unknown Address Unknown Organization K01:[facility] - [address] [place] [address] Laboratory Report Ordering Provider Test Date Status ESTRELLA GRIMM 10/28/2024 11:33:55 Final Observation Date Value Abnormality Reference (Units ) Status Ferritin 10/28/2024 11:33:55 860 Above high normal 30 -400 (ng/mL) Final Performing Location [facility] - [address] [place] [address]
--- OUTSIDE RECORDS SUMMARY | 2024-11-18 23:58 | External Medical Summary ---
Author Name Unknown Address Unknown Organization [id number]:[facility] - [address] [facility] [address] Laboratory Report Ordering Provider Test Date Status SALLY GRIMMFRED 10/28/2024 11:33:55 Final Observation Date Value Abnormality Reference (Units ) Status WBC, Total 10/28/2024 11:33:55 15.31 Above high normal 4 .00-10.80 (K/uL) Final RBC 10/28/2024 11:33:55 3.29 4.50-5.25 (M/uL) Final Hemoglobin 10/28/2024 11:33:55 9.6 Below low normal 14 .0-16.8 (g/dL) Final Anemia reflex testing trigge rs on a HGB < 12.0 for Females and HGB < 13.0 for Males in accordance with the WHO Anemia Guidelines
Anemia reflex testing triggers on a HGB < 12.0 for Females and HGB < 13.0 for Males in accordance with the WHO Anemia Guidelines HCT 10/28/2024 11:33:55 33.0 Below low normal 40. 0-48.4 (%) Final MCV 10/28/2024 11:33:55 100.3 82.0-99.5 (fL) Final MCH 10/28/2024 11:33:55 29.2 27.0-34.0 (pg) Final MCHC 10/28/2024 11:33:55 29.1 32.0-36.0 (g/dL) Final RDW 10/28/2024 11:33:55 18.4 11.5-15.5 (%) Final Platelets 10/28/2024 11:33:55 517 Above hi gh normal 140-400 (K/uL) Final MPV 10/28/2024 11:33:55 9.3 6.6-11.1 ( fL) Final Nucleated erythrocytes/100 leukocytes [Ratio] in Blood by Automated count 10/28/2024 11:33:55 0 <=0 (/100 WBCs) Fi nal Performing Location LABORATORY [facility] - [address] [place] [facility] [address]
--- OUTSIDE RECORDS SUMMARY | 2024-11-18 23:58 | External Medical Summary ---
Author Name Unknown Address Unknown Organization [id number]:[facility] - [address] [place] [address] Laboratory Report Ordering Provider Test Date Status ESTRELLA GRIMM 10/28/2024 11:33:55 Final Observation Date Value Abnormality Reference (Units ) Status TSH 10/28/2024 11:33:55 2.78 0.27-4.20 (uIU/mL) Final Performing Location [facility] - [address] [place] [address]
--- OUTSIDE RECORDS SUMMARY | 2024-11-18 23:58 | External Medical Summary | Summary of Care ---
Author Name Unknown Organization [facility] Address [address] [place] [address] Phone [phone] Care Team Providers Care Job Checker Name Role Phone Omer Wayne MD Primary Care Provider +1- [phone] Reason for Referral * Precert (Within 10 days (routine)) - Pending Review Specialty Diagnoses / Procedures Referred By Contac t Referred To Contact Radiology Diagnoses Bilateral hip pain Procedures MRI PELVIS WO CONTRAST [facility] [address] [facility] [address] Phone: tel: fax: Referral ID Status Reason Start Date Expiration Date V isits Requested Visits Authorized [id number] Pending Review 11/07/2024 999 999 Reason for Visit * Reason Comments NEW PATIENT B/l foot numbness * Evaluate & Treat - Unlimited Visits (Within 30 days (routine)) - Authorized Specialty Diagnoses / Procedures Referred By Contac t Referred To Contact Orthopaedic Surgery / Orthopedics Diagnoses Avascular necrosis of bone of hip, unspecified laterality (HCC) Omer Wayne MD [address] [place] [address] Phone: tel: fax: Referral ID Status Reason Start Date Expiration Date Visits Requested Visits Authorized [id number] Authorized Specialty Services Required 10/28/2024 999 [id number] Encounter Details Date Type Department Care Team (Late st Contact Info) Description 11/07/2024 9:00 AM EST Office Visit Orthopaedics [facility] [address] [place] [address] Jag Hansen MD [address] [place] [address] Bilateral hip pain* Allergies Active Allergy Reactions Criticality Noted Date Comments Onel Inhibitors 10/22/2023 To be avoided due to bilateral renal artery stenosis and worsening kidney function when on previously Prednisone 04/07/2023 documented as of this encounter (statuses as of 11/07/2024) Medications EQ Aspirin Adult Low Dose 81 MG Oral Tablet Delayed ReleaseIndications :Coronary artery disease involving [place] coronary artery of [place] heart without angina pectoris Take 1 Tablet [...] Oral Tablet (Lipitor)Indicatio ns:Coronary artery disease involving [place] coronary artery of [place] heart without angina pectoris,Dyslipide aracely, goal LDL [...] group D, by GOLD 2017 classification ([facility]) Inhale 1 Puff by mouth [...] as of this encounter (statuses as of 11/07/2024) Active Problems Problem Noted Date Diagnosed Date COPD, group D, by GOLD 2017 classification 11/29 Overview: Per COPD GOLD Classification Pulmonary emphysema 10/26/2023 Renal artery stenosis 10/22/2023 Hypertensive heart disease w ith chronic diastolic congestive heart failure 10/21/2023 Coronary artery disease invo lving [place] heart without angina pectoris 06/08/2023 Hepatic steatosis [...] as of this encounter (statuses as of 11/07/2024) Resolved Problems Problem Noted Date Diagnosed Date [...] as of this encounter (statuses as of 11/07/2024) Social History Tobacco Use Types Packs/Day Years [...] as of this encounter Progress Notes * Jag Hansen MD - 11/07/2024 8:59 AM EST Garret Jimenez [id number] Garret Jimenez is a 59 year old male who presents for consultation for bilateralhip injury/pain to [facility]. Consult requested by Omer Wayne MD. Garret Torrez Kevinannalisa is here unaccompanied Quality: reviewed and agree with Nursing Notes for HPI elements History: History - NEW Pt PCP referral Avascular necrosis of bone of hip, unspecified laterality Pt had recent MRI of L spine @ [address] Pt denies pain today Pt c/o numbness in B/L foot Pt is unaccompanied today Pt is established with Dr. Brenner who did his back sx in December 2023 Note: Patient was uncertain why he was referred but referral reason is listed as avascular necrosisof the hips. However there are no imaging studies within our chart to indicate this. Upon review ofhis record a note from a recent ER discharge dated 0 10/21/2024 shows the patient was admitted on 10/18/[address] of his abdomen and pelvis during admission showed concern for possible AVN of thebilateral hips. ROS: ROS per HPI otherwise non-contributory Past Medical History: Diagnosis Date Dyslipidemia, goal LDL below 100 HTN, goal below 140/90 Rhinitis, chronic Family History Problem Relation Name Age of Onset Diabetes Father Heart Disorder Grandfather (Maternal) Cancer None Hypertension None Mental Disorder None Stroke None Social History Socioeconomic History Marital status: Single [...] Not on file Social History Narrative job: [employer] employer: [employer] education: 12 service: no hobbies/interests: Used to do [employer] transfusions: no exercise: work diet: no buddhism/worship: mohini marital status: single children: 0 gc: [...] 0-17 years): Not on file Food Insecurity: Unknown (01/01/2024) Food Insecurity Worried About Running Out of Food in the Last Year: Patient declined Ran Out of Food in the Last Year: Patient declined Do you need food for this week? [...] Stability Do you currently live in a senior care or have no steady place to sleep [...] - for ages0-17 years): Not on file Physical Exam Constitutional: Generally well-nourished and in no acute distress Psychiatric: Mood and Affect normal Eyes: EOMI Respiratory: Normal respiratory effort with regular rate and rhythm Cardiovascular: No edema in the affected extremity (s) Hip and Pelvis Exam Gait: Limp: Positive Antalgic: Positive Scars / Previous Surgery or Trauma: None Alignment: Normal Palpation: Hernia: No ROM: Flexion (normal 120-130): L - 120, R - 120 Internal at 90 (normal 45): L - 30, R - 30 External at 90 (normal 50): L - 45, R - 45 No pain with range of motion of the hip Strength: 5/5 with hip flexion Radiology: 11/07/2024: Five view x-ray of the bilateral hips including AP pelvis Keqk-pu-[id number] degenerative changes noted in the bilateral hips Outside imagin10/18/2024: CT scan of the abdomen and pelvis - reportedly per ER discharge note shows concern for bilateral hip AVN Assessment and Plan: 1) concern for bilateral hip AVN based on outside imaging CT report dated 10/18/2024 Patient is asymptomatic regarding his hips MRI of the pelvis ordered evaluated bilateral hips. Appropriateness of this versus bilateral hip MRI was discussed with Dr. Vitale ([facility]) Telephone follow-up least 3 business days after that MRI Jag Hansen MD Primary Care Sports Medicine Orthopaedics [facility] [address] [facility] [place] [address] documented in this encounter Nursing Notes * Ciara Garcia LPN - 11/07/2024 9:04 AM EST NEW Pt PCP referral Avascular necrosis of bone of hip, unspecified laterality Pt had recent MRI of L spine @ [address] Pt denies pain today Pt c/o numbness in B/L foot Pt is unaccompanied today Pt is established with Dr. Brenner who did his back sx in December 2023 Angie Juares LPN documented in this encounter Plan of Treatment Upcoming Encounters Date Type Department Care Team (Latest Contact Info) Description 11/17/2024 2:40 PM EST Office Visit [facility] [address] [facility] [place] [phone] Omer Wayne MD [address] [facility] [place] [address] 11/23/2024 10:30 AM EST Office Visit Sleep Disorders Ctr [facility] [address] [place] [phone] Jeanette Michael CRNP [address] [place] [address] 12/07/2024 8:00 AM EDT Office Visit Gastroenterology, [facility] [address] [place] [address] Dalia Karimi CRNP [address] [place] [address] 01/18/2025 8:30 AM EDT Office Visit Pulmonary Medicine, [facility] [address] [place] [address] Ronny Virk MD [address] [place] [address] 01/31/2025 1:00 PM EDT Hospital Encounter ENDO OSSC, Endoscopy Room [facility] [address] [place] [phone] Rishabh Grady, DO [address] [place] [address] 01/31/2025 1:00 PM EDT - 01/31/2025 1:30 PM EDT Surgery ENDO O[facility], Endoscopy Room [facility] [address] [place] [phone] Rishabh Grady, [address] [place] [address] COLONOSCOPY FLEXIBLE PROXIMAL DIAGNOSTIC 03/22/2025 11:00 AM EDT Office Visit Cardiology, [facility] [address] [place] [address] Haven Nice PA-C [address] [place] [address] [place] [address] Pending Results Name Type Priority Associated Diagnoses Date /Time XR HIP BILAT MIN 5 VIEWS INCLUDING AP OF PELVIS Medical Imaging Routine Bilateral hip pain 11/07/2024 10:10 AM EST Scheduled Orders Name Type Priority Associated Diagnoses Orde r Schedule MRI PELVIS WO CONTRAST Medical Imaging Routine Bilateral hip pain Expected: 11/07/2024, Expires: 12/05/2025 Scheduled Procedures Name Priority Associated Diagnoses Date/Ti me COLONOSCOPY FLEXIBLE PROXIMAL DIAGNOSTIC Screen for colon cancer 01/31/2025 1:00 PM EDT Health Maintenance Due Date Last Done Comments Alpha-1 Antitrypsin 1981 Pneumococcal Vaccine: 50+ Years (1 of 2 - PCV) 1982 Cologuard 2008 Fecal Occult Blood Test 2008 Sigmoidoscopy 2008 COVID-19 Vaccine ( - 2023- season) 2024 Influenza Vaccine (FLU shot) (#1) 2024 Depression Screening 12/31/2024 01/01/2024 GFR 10/28/2025 10/28/2024, 01/04/2025, 09/09/2024, Additional history exists O2 ASSESSMENT COMPLETED IN PAST YEAR FOR COPD 10/28/2025 10/28/2024 Albumin/Creatinine Ratio 10/28/2026 10/28/2023, 0602/2023 Diabetes Screening 10/28/2027 10/28/2024, 0 09/28/2024, 09/09/2024, Additional history exists DTap/Tdap Vaccines (2 - [...] on patient's age to complete this topic Meningitis B Vaccine (Bexsero/Trumemba) Aged Out No longer eligible based on patient's age to complete this topic Zoster Vaccines Discontinued documented as of this encounter Medical Devices Implanted Type Area Director Patient Accounting Device Identifier Shelf Expiration Date Model / Serial / Lot Mesh Plug Prefix [id number] [id number] - [id number] Implanted:Qty: 1 on 03/12/2018 by Donovan Raza MD at OR [facility] Right: Groin CR BARD : DAVOL 10/21/2018 [id number] / / [id number] documented as of this encounter Visit Diagnoses Diagnosis Bilateral hip pain- Primary Pain in joint, pelvic region and thigh Screen for colon cancer Special screening for malignant neoplasms, colon documented in this encounter Care Teams Job Checker Relationship Specialty Start Date End Date Omer Wayne MD PCP - General 02/19/05 documented as of this encounter
--- OUTSIDE RECORDS SUMMARY | 2024-11-18 23:58 | External Medical Summary ---
Author Name Unknown Address Unknown Organization [id number]:LABORATORY [facility] - [address] [place] [address] Laboratory Report Ordering Provider Test Date Status ESTRELLA GRIMM 10/28/2024 11:33:55 Final Observation Date Value Abnormality Reference (Units ) Status Folic Acid 10/28/2024 11:33:55 8.4 >4.5 (ng/ mL) Final Performing Location LABORATORY [facility] - [address] [place] [address]
--- OUTSIDE RECORDS SUMMARY | 2024-11-18 23:58 | External Medical Summary ---
Author Name Unknown Address Unknown Organization [id number]:LABORATORY [facility] - [address] [facility] [address] Laboratory Report Ordering Provider Test Date Status ESTRELLA GRIMM 10/28/2024 11:33:55 Final Observation Date Value Abnormality Reference (Units ) Status SYNC LEUKOCYTES IN BLOOD BY AUTOMATED COUNT 10/28/2024 11:33:55 15.31 Above high normal 4.00-10.80 (K/uL) Final Segs 10/28/2024 11:33:55 86.7 Above high normal 40.0-75.0 (%) Final Lymphs % 10/28/2024 11:33:55 4.6 Below low normal 18.0-42.0 (%) Final Monos 10/28/2024 11:33:55 7.2 1.0-11.0 (%) Final Eosinophils 10/28/2024 11:33:55 0.4 0.0-6.0 (%) Final Basos 10/28/2024 11:33:55 0.6 0.0-2.0 (%) Final Immature Granulocyte, Percent 10/28/2024 11:33:55 0.5 0.0-2.0 (%) Final Absolute Segs 10/28/2024 11:33:55 13.28 Above high normal 1.80-7.70 (K/uL) Final Lymphs, absolute 10/28/2024 11:33:55 0.71 Below low normal 1.00-4.80 (K/ul) Final Monos, Abs 10/28/2024 11:33:55 1.10 0.00-1.10 (K/uL) Final Eos, Abs 10/28/2024 11:33:55 0.06 0.00-0.70 (K/uL) Final Basos, Abs 10/28/2024 11:33:55 0.09 0.00-0.20 (K/uL) Final Immature Granulocytes, Number 10/28/2024 11:33:55 0.07 0.00-0.20 (K/uL) Final Performing Location LABORATORY [facility] - [facility] [place] [address]
--- OUTSIDE RECORDS SUMMARY | 2024-11-18 23:58 | External Medical Summary | Summary of Care ---
Author Name Unknown Organization [facility] Address [address] [place] [address] Phone [phone] Care Team Providers Care Ocean Transportation Intermediary Name Role Phone Omer Wayne MD Primary Care Provider +1- [phone] Encounter Details Date Type Department Care Team (Late st Contact Info) Description 10/21/2024 [facility] [address] [facility] [place] [address] Omer Wayne MD [address] [place], [place] [id number] Allergies Active Allergy Reactions Criticality Noted Date Comments Onel Inhibitors 10/22/2023 To be avoided due to bilateral renal artery stenosis and worsening kidney function when on previously Prednisone 04/07/2023 documented as of this encounter (statuses as of 10/22/2024) Medications EQ Aspirin Adult Low Dose 81 MG Oral Tablet Delayed ReleaseIndications :Coronary artery disease involving [place] coronary artery of [place] heart without angina pectoris Take 1 [...] Oral Tablet (Lipitor)Indicatio ns:Coronary artery disease involving [place] coronary artery of [place] heart without angina pectoris,Dyslipide aracely, goal [...] as of this encounter (statuses as of 10/22/2024) Active Problems Problem Noted Date Diagnosed Date COPD, group D, by GOLD 2017 classification 11/29 Overview: Per COPD GOLD Classification Pulmonary emphysema 10/26/2023 Renal artery stenosis 10/22/2023 Hypertensive heart disease w ith chronic diastolic congestive heart failure 10/21/2023 Coronary artery disease invo lving [place] heart without angina pectoris 06/08/2023 Hepatic [...] as of this encounter (statuses as of 10/22/2024) Resolved Problems Problem Noted Date Diagnosed Date [...] as of this encounter (statuses as of 10/22/2024) Social History Tobacco Use Types Packs/Day Years [...] Description 11/17/2024 2:40 PM EST [facility] [address] [place] [phone] Omer Wayne MD [address] [place] [address] 11/23/2024 10:30 AM EST Office Visit Sleep Disorders Ctr [facility] [address] [place] [phone] Jeanette Michael CRNP [address] [place] [address] 01/18/2025 8:30 AM EDT Office Visit Pulmonary Medicine, [facility] [address] [place] [address] Ronny Virk MD [address] [place] [address] 01/31/2025 1:00 PM EDT Hospital Encounter ENDO [facility], Endoscopy Room [facility] [address] [place] [phone] Rishabh Grady, DO [address] [place] [address] 01/31/2025 1:00 PM EDT - 01/31/2025 1:30 PM EDT Surgery ENDO OSS[facility], Endoscopy Room [facility] [address] [place] [phone] Rishabh Grady, DO [address] [place] [address] COLONOSCOPY FLEXIBLE PROXIMAL DIAGNOSTIC Scheduled Procedures Name [...] this encounter Medical Devices Implanted Type Area Harvest Field Ticketer Device Identifier Shelf Expiration Date Model / Serial / Lot Mesh Plug Prefix Lg [id number] - [id number] Implanted:Qty: 1 on 03/12/2018 by Donovan Raza MD at [facility] Right: Groin CR BARD : DAVOL 10/21/2018 [id number] / / [id number] documented as of this encounter Procedures Procedure Name Priority Date/Time Associated Diagnosis Comments UPPER ENDOSCOPY, OUTSIDE PROCEDURE Routine 10/20/2024 COLONOSCOPY, OUTSIDE PROCEDURE Routine 10/20/2024 documented in this encounter Results * COLONOSCOPY, OUTSIDE PROCEDURE (10/20/2024) 10/20/2024 us Bruce Myers MD GASTRO LOWER Final Result Performing Organization Address City/[facility]/ZIP Co de Phone Number OUTSIDE LAB (SEE SCANNED REPORT) * UPPER ENDOSCOPY, OUTSIDE PROCEDURE (10/20/2024) 10/20/2024 us Bruce Myers MD GASTRO UPPER Final Result OUTSIDE LAB (SEE SCANNED REPORT) documented in this encounter Care Teams Ocean Transportation Intermediary Relationship Specialty Start Date End Date Omer Wayne MD PCP - General 02/19/05 documented as of this encounter
--- OUTSIDE RECORDS SUMMARY | 2024-11-18 23:58 | External Medical Summary ---
Author Name Unknown Address Unknown Organization K01:LABORATORY [place] [address] [facility] [place] [facility] [address] Laboratory Report Ordering Provider Test Date Status ESTRELLA GRIMM 10/28/2024 11:33:55 Final Observation Date Value Abnormality Reference (Units ) Status Retic, % (auto) 10/28/2024 11:33:55 3.52 Above high normal 0.80-1.90 (%) Final Reticulocytes, Absolute 10/28/2024 11:33:55 88.0 31.3-100.1 (K/uL) Final Reticulocyte fraction, immature 10/28/2024 11:33:55 15.8 2.5-20.6 (%) Final Reticulocyte HGB 10/28/2024 11:33:55 33.0 29.7-37.4 (pg) Final Performing Location LABORATORY [facility] - [address] [facility] [place] [address]
--- OUTSIDE RECORDS SUMMARY | 2024-11-18 23:58 | External Medical Summary | Summary of Care ---
Author Name Unknown Organization [facility] Address [address] [place] [address] Phone [phone] Care Team Providers Care Craps Dealer Name Role Phone Omer Wayne MD Primary Care Provider +1- [phone] Reason for Visit * Reason Onset Date Comments Advice 11/09/2024 Encounter Details Date Type Department Care Team (Late st Contact Info) Description 11/09/2024 Telephone Access Center, [place] [address] [address] [facility] *DO NOT REMOVE THIS DEPARTMENT* [place] [address] Services, Scheduling [address] [place] [address] Advice Allergies Active Allergy Reactions Criticality Noted Date Comments Onel Inhibitors 10/22/2023 To be avoided due to bilateral renal artery stenosis and worsening kidney function when on previously Prednisone 04/07/2023 documented as of this encounter (statuses as of 11/14/2024) Medications EQ Aspirin Adult Low Dose 81 MG Oral Tablet Delayed ReleaseIndications :Coronary artery disease involving [place] coronary artery of [place] heart without angina pectoris Take 1 Tablet [...] Oral Tablet (Lipitor)Indicatio ns:Coronary artery disease involving [place] coronary artery of [place] heart without angina pectoris,Dyslipide aracely, goal LDL [...] as of this encounter (statuses as of 11/14/2024) Active Problems Problem Noted Date Diagnosed Date COPD, group D, by GOLD 2017 classification 11/29 Overview: Per COPD GOLD Classification Pulmonary emphysema 10/26/2023 Renal artery stenosis 10/22/2023 Hypertensive heart disease w ith chronic diastolic congestive heart failure 10/21/2023 Coronary artery disease invo lving [place] heart without angina pectoris 06/08/2023 Hepatic steatosis [...] as of this encounter (statuses as of 11/14/2024) Resolved Problems Problem Noted Date Diagnosed Date [...] as of this encounter (statuses as of 11/14/2024) Social History Tobacco Use Types Packs/Day Years [...] encounter Miscellaneous Notes * Telephone Encounter - Darrell Karlene Lien, SAROJ - 11/09/2024 3:51 PM EST Hello! Patient called in to schedule his MRI Pelvis. However, he is VERY claustrophobic. He would like to have this done at an open MRI facility please. He says he has had MRI's at [place] in the past, but if there is an open MRI location in [place], he would be interested in that. Would you please set this up for him? Thank you very much! Karlene Ramírez, SAROJ documented in this encounter Plan of Treatment Upcoming Encounters Date Type Department Care Team (Latest Contact Info) Description 11/17/2024 2:40 PM EST Office Visit [facility] [address] [facility] [place] [phone] Omer Wayne MD [address] [facility] [place] [address] 11/23/2024 10:30 AM EST Office Visit Sleep Disorders Ctr [facility] [address] [facility] [place] [phone] Jeanette Michael CRNP [address] [facility] [place] [address] 12/07/2024 8:00 AM EDT Office Visit Gastroenterology, [facility] [address] [facility] [place] [address] Dalia Karimi CRNP [address] [facility] [place] [address] 01/18/2025 8:30 AM EDT Office Visit Pulmonary Medicine, [facility] [address] [facility] [place] [address] Ronny Virk MD [address] [place] [address] 01/31/2025 1:00 PM EDT Hospital Encounter ENDO [facility], Endoscopy Room [facility] [address] [place] [phone] Rishabh Grady DO [address] [place] [address] 01/31/2025 1:00 PM EDT - 01/31/2025 1:30 PM EDT Surgery ENDO [facility], Endoscopy Room [facility] [address] [place] [phone] Rishabh Grady DO [address] [place] [address] COLONOSCOPY FLEXIBLE PROXIMAL DIAGNOSTIC 03/22/2025 11:00 AM EDT Office Visit Cardiology, [facility] [address] [place] [address] Haven Nice PA-C [address] [place] [address] Scheduled Procedures Name Priority Associated Diagnoses Date/Ti [...] Depression Screening 12/31/2024 01/01/2024 GFR 10/28/2025 10/28/2024, 04/2025, 09/09/2024, Additional history exists O2 ASSESSMENT COMPLETED IN PAST YEAR FOR COPD 10/28/2025 10/28/2024 Albumin/Creatinine Ratio 10/28/2026 10/28/2023, 06/2 02/2023 Diabetes Screening 10/28/2027 10/28/2024, 0 09/28/2024, 09/09/2024, [...] this encounter Medical Devices Implanted Type Area Software Requirements Engineer Device Identifier Shelf Expiration Date Model / Serial / Lot Mesh Plug Prefix [id number] [id number] - [id number] Implanted:Qty: 1 on 03/12/2018 by Donovan Raza MD at OR [facility] Right: Groin CR BARD : DAVOL 10/21/2018 [id number] / / [id number] documented as of this encounter Care Teams Craps Dealer Relationship Specialty Start Date End Date Omer Wayne MD [address] [place] [address] PCP - General Family Medicine 11/09/24 documented as of this encounter
--- OUTSIDE RECORDS SUMMARY | 2024-11-18 23:58 | External Medical Summary | Summary of Care ---
Author Name Unknown Organization [facility] Address [address] [facility] [place] [address] Phone [phone] Care Team Providers Care Manager Web Name Role Phone Omer Wayne MD Primary Care Provider [phone] Reason for Visit * Reason Onset Date Comments Hospital Follow-Up 10/24/2024 [facility] ([facility]) Encounter Details Date Type Department Care Team (Late st Contact Info) Description 10/24/2024 Telephone [facility] [address] [facility] [place] [phone] Twila Alonzo, MARC Hospital Follow-Up ([facility] ([facility])) Allergies Active Allergy Reactions Criticality Noted Date Comments Onel Inhibitors 10/22/2023 To be avoided due to bilateral renal artery stenosis and worsening kidney function when on previously Prednisone 04/07/2023 documented as of this encounter (statuses as of 10/25/2024) Medications EQ Aspirin Adult Low Dose 81 MG Oral Tablet Delayed ReleaseIndications :Coronary artery disease involving yuhaaviatam coronary artery of yuhaaviatam heart without angina pectoris Take 1 Tablet [...] Oral Tablet (Lipitor)Indicatio ns:Coronary artery disease involving yuhaaviatam coronary artery of yuhaaviatam heart without angina pectoris,Dyslipide aracely, goal LDL [...] Tablet by mouth in the morning. 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 180 Tablet 3 09/29/19 25 025 Discontin ued(Medic ation/Dos e Changed) documented as of this encounter (statuses as of 10/25/2024) Active Problems Problem Noted Date Diagnosed Date COPD, group D, by GOLD 2017 classification 11/29 Overview: Per COPD GOLD Classification Pulmonary emphysema 10/26/2023 Renal artery stenosis 10/22/2023 Hypertensive heart disease w ith chronic diastolic congestive heart failure 10/21/2023 Coronary artery disease invo lving yuhaaviatam heart without angina pectoris 06/08/2023 Hepatic steatosis [...] as of this encounter (statuses as of 10/25/2024) Resolved Problems Problem Noted Date Diagnosed Date [...] as of this encounter (statuses as of 10/25/2024) Social History Tobacco Use Types Packs/Day Years [...] encounter Miscellaneous Notes * Telephone Encounter - Twila Alonzo RN - 10/24/2024 1:06 PM EST Transitions of Care Note Reason for Referral:Recent Admission Phone visit for follow up: [facility] Admitted to: [facility], Date: 10/18/2024 Discharged to: Home, Date: 10/21/2024 Diagnosis driving hospitalization: Acute on Chronic Anemia, Likely GI Bleed Hypotension likely secondary to Hypovolemia in the setting of Acute Anemia 10/20/2024 - EGD/Colonoscopy Source/Contact: Patient SUBJECTIVE Consent: Verbal consent for review of hospital discharge: Yes REVIEW OF SYSTEMS Patient/Other Reports: Current patient/caregiver problems or concerns: No concerns at this time CV: Denies problems Pulmonary: Denies problems Chills/Sweats/Fever:Denies chills/sweats Denies fever Appetite:Denies problems such as nausea, vomiting, burning, decreased appetite Current diet: Heart Healthy Bowel: denies problems Bladder: denies problems Wound (If applicable): N/A Pain:Denies Sleep:Denies problems-Does not use home O2 at HS FUNCTIONAL STATUS: ADL'S: Needs Assistance With:N/A as pt is independent, only uses cane if going to the store IADL'S: Needs Assistance With:Cooking food Cognitive and Mental Health: denies problems, alert and oriented x 3, and able to communicate, understand instructions, process information. MEDICATION RECONCILIATION Medications: Med changes discussed with patient New medications: Carvedilol 3.125 mg, MVI with Folic Acid, Nicotine patch, Pantoprazole, Thiamine Hold medication: Aspirin Discontinued medication: Carvedilol 12.5 mg Patient did not get Nicotine patch ASSESSMENT Medication Risk Assessment: No risks identified Did patient fail outpatient treatment? No Discharge instructions available for review? Yes PLAN Symptom Monitoring Interventions:Member/caregiver education - signs and symptoms to contact PrimaryCare (DO NOT DELETE-Three nixon symptoms patient is to report to PCP) 1. Chest Pain/SOB 2. Fever/chills 3. 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 Educated patient/caregiver on patient right to have input on [facility] plan of care. Verification of Home Health/DME if indicated: NA Identified Care Gaps: Yes Care Gaps closed this call: Appointment made or confirmed and Transition of Care follow-up communication Re-evaluation of Plan of Care and progress towards goals achievement: Patient education this visit: Verbal, Scheduled PCP appointment 10/28/2024, addressed reasons to call sooner as above Plan to instructed to call Primary Care Provider with change in symptoms or as needed before next follow-up, discharge needs met, verbalizes understanding and agrees with plan. Twila Alonzo, RN documented in this encounter Plan of Treatment Upcoming Encounters Date Type Department Care Team (Latest Contact Info) Description 10/28/2024 10:00 AM EST [facility] [address] [facility] [place] [phone] Omer Wayne MD [address] [place] [address] 11/17/2024 2:40 PM EST [facility] [address] [place] [phone] Omer Wayne MD [address] [facility] [place] [address] 11/23/2024 10:30 AM EST Office Visit [facility] [address] [place] [phone] Jeanette Michael CRNP [address] [place] [address] 01/18/2025 8:30 AM EDT Office Visit Pulmonary Medicine, [facility] [address] [place] [address] Ronny Virk MD [address] [place] [address] 01/31/2025 1:00 PM EDT Hospital Encounter ENDO [facility], Endoscopy Room [facility] [address] [place] [phone] Rishabh Grady DO [address] [place] [address] 01/31/2025 1:00 PM EDT - 01/31/2025 1:30 PM EDT Surgery ENDO [facility], Endoscopy Room [facility] [address] [place] [phone] Rishabh Grady, DO [address] [place] [address] COLONOSCOPY FLEXIBLE PROXIMAL DIAGNOSTIC Scheduled Procedures Name [...] COPD 09/28/2025 09/28/2024 Albumin/Creatinine Ratio 10/28/2026 10/28/2023, 0602/2023 Diabetes Screening 09/28/2027 09/28/2024, 1 11/10/2023, 09/01/2024, [...] this encounter Medical Devices Implanted Type Area Commercial Appraiser Device Identifier Shelf Expiration Date Model / Serial / Lot Mesh Plug Prefix Lg [id number] - [id number] Implanted:Qty: 1 on 03/12/2018 by Donovan Raza MD at OR [facility] Right: Groin CR BARD : DAVOL 10/21/2018 [id number] / / [id number] documented as of this encounter Care Teams Manager Web Relationship Specialty Start Date End Date Omer Wayne MD PCP - General 02/19/05 documented as of this encounter
--- OUTSIDE RECORDS SUMMARY | 2024-11-18 23:58 | External Medical Summary ---
Author Name Unknown Address Unknown Organization K01:[facility] [place] [address] [facility] [address] Laboratory Report Ordering Provider Test Date Status SIRISHAESTRELLA 10/28/2024 11:33:55 Final Observation Date Value Abnormality Reference (Units ) Status BUN 10/28/2024 11:33:55 7 6-20 (mg/dL) Final Creatinine 10/28/2024 11:33:55 0.7 0.6-1.2 (mg/dL) Final Glomerular filtration rate/1.73 sq M.predicted [Volume Rate/Area] in Serum, Plasma or Blood by Creatinine-based formula (CKD-EPI) 10/28/2024 11:33:55 >90 >=60 (mL/min) Final eGFR is calculated based on the CKD-EPI 2020 equation. Sodium 10/28/2024 11:33:55 143 135-146 (m mol/L) Final Potassium 10/28/2024 11:33:55 4.8 3.5-5.1 (m mol/L) Final Cl 10/28/2024 11:33:55 106 98-107 (mm ol/L) Final CO2 10/28/2024 11:33:55 23 22-32 (mmo l/L) Final Anion gap 10/28/2024 11:33:55 14 7-15 (mmol /L) Final Glucose 10/28/2024 11:33:55 92 70-120 (mg /dL) Final Albumin 10/28/2024 11:33:55 3.6 Below low normal 3.8 -5.0 (g/dL) Final AST (Aspartate aminotransferase) 10/28/2024 11:33:55 43 10-50 (U/L) Fin al Alk Phos 10/28/2024 11:33:55 171 Above high normal 35 -130 (U/L) Final Bilirubin, Total 10/28/2024 11:33:55 0.3 <=1 .2 (mg/dL) Final Calcium 10/28/2024 11:33:55 9.2 8.4-10.2 ( mg/dL) Final Protein 10/28/2024 11:33:55 6.6 6.0-8.3 (g /dL) Final ALT (Alanine aminotransferase) 10/28/2024 11:33:55 37 10-50 (U/L) Jimi vee Performing Location [facility] [place] [address] [facility] [id number]
--- OUTSIDE RECORDS SUMMARY | 2024-11-18 23:58 | External Medical Summary | Summary of Care ---
Author Name Unknown Organization [facility] Address [address] [place] [address] Phone [phone] Care Team Providers Care Oyster Culler Name Role Phone Omer Wayne MD Primary Care Provider +1- [phone] Reason for Referral * Evaluate & Treat - Unlimited Visits (Within 30 days (routine)) - Authorized Specialty Diagnoses / Procedures Referred By Contac t Referred To Contact Orthopaedic Surgery / Orthopedics Diagnoses Avascular necrosis of bone of hip, unspecified laterality (HCC) Omer Wayne MD [address] [place] [address] Phone: tel: fax: Referral ID Status Reason Start Date Expiration Date Visits Requested Visits Authorized [id number] Authorized Specialty Services Required 10/28/2024 [id number] Question Answer Referral Priority Within 30 days (routine) Where should this appointment be scheduled? [facility] What body part is the patient being seen for? Hip What condition is the patient being seen for? Arthritis including related infection * Evaluate & Treat - Unlimited Visits (Within 30 days (routine)) - Authorized Specialty Diagnoses / Procedures Referred By Contac t Referred To Contact Gastroenterology Diagnoses Anemia, unspecified type Omer Wayne MD [address] [place] [address] Phone: tel: fax: Referral ID Status Reason Start Date Expiration Date Visits Requested Visits Authorized [id number] Authorized Specialty Services Required 10/28/2024 [id number] Question Answer Referral Priority Within 30 days (routine) Where should this appointment be scheduled? [facility] For what condition is the patient being referred? All Gastro Conditions * Evaluate & Treat - Unlimited Visits (Within 10 days (routine)) - Authorized Specialty Diagnoses / Procedures Referred By Contact Referred To Contact Cardiovascular Medicine / Cardiology Diagnoses Coronary artery disease involving [place] coronary artery of [place] heart without angina pectoris Omer Wayne MD [address] [address] Phone: tel: fax: Referral ID Status Reason Start Date Expiration Date Visits Requested Visits Authorized [id number] Authorized Specialty Services Required 10/28/2024 [id number] Question Answer Referral Priority Within 10 days (routine) Where should this appointment be scheduled? [facility] For which of the following conditions are you referring? Known CAD/CABG/Stent Reason for Visit * Reason Onset Date Comments Hospital Follow-Up Hospital Follow-Up 10/28/2024 Hospital Follow-Up 11/13/2024 Encounter Details Date Type Department Care Team (Late st Contact Info) Description 10/28/2024 10:00 AM EST [facility] [address] [phone] Omer Wayne MD [address] [address] Pain in both lower extremities*; Avascular necrosis of bone of hip, unspecified laterality (HCC); Anemia, unspecified type; Coronary artery disease involving [place] coronary artery of [place] heart without angina pectoris; Essential hypertension with goal blood pressure less than 140/90; Encounter for long-term (current) use of medications; Hospital discharge follow-up Allergies Active Allergy Reactions Criticality Noted Date Comments Onel Inhibitors 10/22/2023 To be avoided due to bilateral renal artery stenosis and worsening kidney function when on previously Prednisone 04/07/2023 documented as of this encounter (statuses as of 11/13/2024) Medications EQ Aspirin Adult Low Dose 81 MG Oral Tablet Delayed ReleaseIndications :Coronary artery disease involving [place] coronary artery of [place] heart without angina pectoris Take 1 Tablet [...] Oral Tablet (Lipitor)Indicatio ns:Coronary artery disease involving [place] coronary artery of [place] heart without angina pectoris,Dyslipide aracely, goal LDL [...] )Indications:COPD, group D, by GOLD 2017 classification ([facility]) Inhale 1 Puff by [...] Tablet by mouth in the morning. Active Azithromycin 250 MG Oral Tablet (Zithromax Z-Oswaldo) Please take 500 mg by mouth on day one, followed by 250 mg by mouth for four days. 6 Tablet 07/05/20 24 025 Discontin ued(Medic ation List Clean Up) documented as of this encounter (statuses as of 11/13/2024) Active Problems Problem Noted Date Diagnosed Date COPD, group D, by GOLD 2017 classification 11/29 Overview: Per COPD GOLD Classification Pulmonary emphysema 10/26/2023 Renal artery stenosis 10/22/2023 Hypertensive heart disease w ith chronic diastolic congestive heart failure 10/21/2023 Coronary artery disease invo lving [place] heart without angina pectoris 06/08/2023 Hepatic steatosis [...] as of this encounter (statuses as of 11/13/2024) Resolved Problems Problem Noted Date Diagnosed Date [...] as of this encounter (statuses as of 11/13/2024) Social History Tobacco Use Types Packs/Day Years [...] Sign Reading Time Taken Comments Blood Pressure 166/90 10/28/2024 10:05 AM EST Patient states he has not take his medications yet today Pulse 110 10/28/2024 10:05 AM EST Temperature 36.5 C (97.7 F) 10/28/2024 1 0:05 AM EST Respiratory Rate 22 10/28/2024 10:0 5 AM EST Oxygen Saturation 96% 10/28/2024 10: 05 AM EST Inhaled Oxygen Concentration - - Weight 109 kg (240 lb 3.2 oz) 10/28/2024 10:05 AM EST Height 182.9 cm (6') 10/28/2024 10:05 AM EST Body Mass Index 32.58 10/28/2024 10:05 AM EST documented in this encounter Progress Notes * Omer Wayne MD - 11/13/2024 4:34 PM EST Subjective: Garret Jimenez is a 59 year old male here today for Hospital follow up. Pt admitted to [facility] 10/18/24 - 10/21/24. Admitted after several weeks of progressive weakness, some cough. Found to have hypotension and anemia (hgb 4.7 on admission). Received a total of 5 units prbc's. FOBT neg in ED but had been some history of melena. Hgb stable at 7.[address] abd/pelvis - no retroperitoneal hematoma. EGD/colo completed without clear cause. Advised to take pantoprazole bid for a week and then daily for at least 3 months and follow up with GI as outpt. Imaging raised question of bilateral avascular necrosis of the hips - pt having no hip pain. Also, evidence for T12 compression fracture. Past Medical History: Diagnosis Date Dyslipidemia, goal LDL below 100 HTN, goal below 140/90 Rhinitis, chronic Past Surgical History: Procedure Laterality Date EGD, FLEXIBLE, DIAGNOSTIC 07/03/2021 reflux / ESOPHAGOGASTRODUODENOSCOPY (EGD), FLEXIBLE, TRANSORAL, DIAGNOSTIC performed by Martha Patterson MD at ENDOSCOPY [facility] FOOT/TOE SURGERY NEC Left 09/21/1993 Foot/Toes Surgery Proc Unlisted INFORMATION 09/21/2001 [id number]- Dr Sagastume KNEE ARTHROSCOPY, DIAGNOSTIC Left 09/21/1988 Knee Scope,Diagnostic REPAIR INITIAL INGUINAL HERNIA REDUCIBLE AGE 5 OR MORE Right 03/12/2018 REPAIR INITIAL INGUINAL HERNIA REDUCIBLE AGE 5 OR MORE performed by Donovan Raza MD at OR [facility] Review of patient's allergies indicates: Allergen Reactions Onel Inhibitors To be avoided due to bilateral renal artery stenosis and worsening kidney function when on previously Prednisone Current Outpatient Medications Medication Sig Dispense Refill Baclofen 10 MG Oral Tablet (Lioresal) Take 1 Tablet by mouth in the morning and 1 Tablet at noon and 1 Tablet before bedtime. 90 Tablet 1 Folic Acid 1 MG Oral Tablet Take [...] 1 Tablet before bedtime. 180 Tablet 1 LORazepam 1 MG Oral Tablet (Ativan) Take 1 Tablet by mouth every 6 hours as needed. Trelegy Ellipta 200-62.5-25 MCG/ACT Aerosol Powder Breath Activated (Lfojrgcvfbd-Pnbtrqzbpdom-Wqezzfvomh) Inhale 1 Puff by mouth in the morning. 180 Blister Dosing Unit 3 Carvedilol 3.125 MG Oral Tablet (Coreg) Take 1 Tablet by mouth 2 times a day with morning and evening meals. Pantoprazole Sodium 40 MG Oral Tablet Delayed Release (Protonix) Take 1 Tablet by mouth in the morning. Daily-Karen Oral Tablet Take 1 Tablet by mouth daily. Thiamine 100 MG OR Tablet Take 1 Tablet by mouth in the morning. EQ Aspirin Adult Low Dose 81 MG Oral Tablet Delayed Release Take 1 Tablet by mouth daily. In the morning. (Patient not taking: Reported on 10/28/2024) 90 Tablet 3 traMADol HCl 50 MG Oral Tablet (Ultram) Take 1 Tablet by mouth 2 times a day as needed for Pain, Severe. (Patient not taking: Reported on 10/28/2024) 30 Tablet 0 Furosemide 20 MG Oral Tablet (Lasix) Take 1 Tablet by mouth in the morning. (Patient not taking: Reported on 10/28/2024) 90 Tablet 3 No current facility-administered medications for this visit. Objective: BP 166/90 Comment: Patient states he has not take his medications yet today | Pulse 110 | Temp 97.7 F (36.5 C) (Tympanic) | Resp 22 | Ht 6' (1.829 m) | Wt 240 lb 3.2 oz (109 kg) | SpO2 96% | BMI 32.58 kg/m | BSA 2.35 m GEN: NAD HEENT: Benign NECK: Supple with no LAD, TM, JVD CHEST: CTA B CV: RRR ABD: Soft, NT/ND, No HSM, NABS EXT: No c,c,e Assessment and Plan: Pain in both lower extremities (Primary) - VASC ANKLE BRACHIAL INDICES WITHOUT PPG (PAD) Avascular necrosis of bone of hip, unspecified laterality (HCC) - ORTHOPAEDICS REFERRAL OP Anemia, unspecified type - ADULT GASTROENTEROLOGY REFERRAL OP - CBC WITH WBC DIFFERENTIAL AND ANEMIA REFLEX WORKUP; Future; Expected date: 10/28/2024 Coronary artery disease involving [place] coronary artery of [place] heart without angina pectoris - CARDIOLOGY REFERRAL OP Essential hypertension with goal blood pressure less than 140/90 - COMPREHENSIVE METABOLIC PANEL; Future; Expected date: 10/28/2024 Encounter for long-term (current) use of medications - MAGNESIUM; Future; Expected date: 10/28/2024 - PHOSPHORUS; Future; Expected date: 10/28/2024 Hospital discharge follow-up - DISCH MED RECON CUR MED LIS Follow Up: Return for follow up with me after arterial doppler. | For: follow up with me after arterial doppler | Check-out note: GI Cardiology Ortho Labs today Arterial doppler 42 min with pt and chart review. Omer Wayne MD documented in this encounter Nursing Notes * Aleyda Vaca LPN - 10/28/2024 10:05 AM EST The patient has been properly identified by confirmation of name and date of . Chief Complaint Patient presents with Hospital Follow-Up Patient declined pneumococcal, flu and COVID vaccines today Patient report his feet/legs are numb bilaterally. States he had a blood transfusion while in the hospital and the numbness went away. Has returned. Had an MRI and it did not show anything. Ortho believes issue is cardiovascular Patient was very SOB while walking to exam room States he is exhausted, hasn't slept well- has sleep apnea documented in this encounter Plan of Treatment Upcoming Encounters Date Type Department Care Team (Latest Contact Info) Description 11/17/2024 2:40 PM EST [facility] Visit [facility] [address] [facility] [place] [phone] Omer Wayne MD [address] [facility] [place] [address] 11/23/2024 10:30 AM EST Office Visit [facility] [address] [phone] Jeanette Michael CRNP [address] [place] [address] 12/07/2024 8:00 AM EDT Office Visit Gastroenterology, [facility] [address] [address] Dalia Karimi CRNP [address] [address] 01/18/2025 8:30 AM EDT Office Visit Pulmonary Medicine, [facility] [address] [place] [address] Ronny Virk MD [address] [address] 01/31/2025 1:00 PM EDT Hospital Encounter ENDO [facility], Endoscopy Room [facility] [address] [place] [phone] Rishabh Grady, DO [address] [place] [address] 01/31/2025 1:00 PM EDT - 01/31/2025 1:30 PM EDT Surgery ENDO [facility], Endoscopy Room [facility] [address] [place] [phone] Rishabh Grady, DO [address] [place] [address] COLONOSCOPY FLEXIBLE PROXIMAL DIAGNOSTIC 03/22/2025 11:00 AM EDT Office Visit Cardiology, [facility] [address] [place] [address] Haven Nice PA-C [address] [facility] [address] [place] [address] Scheduled Procedures Name Priority Associated Diagnoses Date/Ti me COLONOSCOPY FLEXIBLE PROXIMAL DIAGNOSTIC Screen for colon cancer 01/31/2025 1:00 PM EDT Scheduled Referrals Name Type Priority Associated Diagnoses Order Schedule CARDIOLOGY REFERRAL OP Referral Within 10 days (routine) Coronary artery disease involving [place] coronary artery of [place] heart without angina pectoris Ordered: 10/28/2024 ADULT GASTROENTEROLOGY REFERRAL OP Referral Within 30 days (routine) Anemia, unspecified type Ordered: 10/28/2024 ORTHOPAEDICS REFERRAL OP Referral Within 30 days (routine) Avascular necrosis of bone of hip, unspecified laterality (HCC) Ordered: 10/28/2024 Health Maintenance Due Date Last Done Comments [...] Albumin/Creatinine Ratio 10/28/2026 10/28/2023, 02/20 Diabetes Screening 10/28/2027 10/28/2024, 0 09/28/2024, 09/09/2024, [...] encounter Medical Devices Implanted Type Area Embossing Tool Setter Device Identifier Shelf Expiration Date Model / Serial / Lot Mesh Plug Prefix [id number] - [id number] Implanted:Qty: 1 on 03/12/2018 by Donovan Raza MD at OR [facility] Right: Groin CR BARD : DAVOL 10/21/2018 [id number] / / [id number] documented as of this encounter Procedures Procedure Name Priority Date/Time Associated Diagnosis Comments VASC ANKLE BRACHIAL INDICES WITHOUT PPG (PAD) Routine 11/07/2024 10:45 AM EST Pain in both lower extremities documented in this encounter Results * VASC ANKLE BRACHIAL INDICES WITHOUT PPG (PAD) (11/07/2024 10:45 AM EST) Anatomical Region Laterality Modality Extremity, Ankle, Vascular, Lower Extremity, Blayne t Ultrasound Impressions 11/07/2024 11:25 AM EST : CORY at rest is 1.2 on the right and 1.2 on the left. For the right lower extremity: Lower extremity Doppler Evaluation is normal at rest with no evidence of significant arterial occlusive disease. For the left lower extremity: Lower extremity Doppler Evaluation is normal at rest with no evidence of significant arterial occlusive disease. Narrative 11/07/2024 11:25 AM EST VASCULAR LAB RESULTS DATE OF EXAMINATION: 11/07/24 INDICATION: diminished pedal pulses, lower ext symptoms This is an interpretation of an exam performed at [facility]. ANKLE BRACHIAL INDEX OF THE LOWER EXTREMITIES Immediately before proceeding with the vascular lab procedure reported below, the identity of the patient, the correct exam and the correct procedural site were identified. Continuous wave doppler and appropriate size pressure cuffs were utilized during the examination. Findings: The right and left brachial artery blood pressures are 175 mmHg and 183 mmHg respectively. On the right, the posterior tibial artery waveform is triphasic and has an amplitude which is excellent. . The right dorsalis pedis artery waveform is triphasic and has an amplitude which is excellent. The right peroneal artery waveform is triphasic and has an amplitude which is excellent. The tibial pressures range from 208 mmHg to 213 mmHg. On the left, the posterior tibial artery waveform is triphasic and has an amplitude which is excellent. . The left dorsalis pedis artery waveform is triphasic and has an amplitude which is excellent. . The left peroneal artery waveform is triphasic and has an amplitude which is good. The tibial pressures range from 194 mmHg to 213 mmHg. us Omer Wayne MD RAD VASCULAR Final Resu lt * (ABNORMAL) PHOSPHORUS (10/28/2024 11:33 AM EST) [facility] Phosphorus 2.2(L) 2.5 - 4.8 mg/dL 10/29/2024 6:23 AM EST LAB[facility]ATORY [facility] Blood Venous blood specimen / Unknown Venipuncture / Unknown 10/28/2024 11:33 AM EST 10/28/2024 11:33 AM EST Omer Wayne MD LAB BLOOD ORDERABLES Final Result [facility] [address] [place] [address] * MAGNESIUM (10/28/2024 11:33 AM EST) Magnesium 1.6 1.5 - 2.6 mg/dL 10/29/2024 6:23 AM EST [facility] Blood Venous blood specimen / Unknown Venipuncture / Unknown 10/28/2024 11:33 AM EST 10/28/2024 11:33 AM EST Omer Wayne MD LAB BLOOD ORDERABLES Final Result Performing Organization Address [facility] de Phone Number LABORATORY [facility] [address] [place] [address] * (ABNORMAL) COMPREHENSIVE METABOLIC PANEL (10/28/2024 11:33 AM EST) BUN 7 6 - 20 mg/dL 10/29/2024 6:23 AM EST [facility] CREATININE 0.7 0.6 - 1.2 mg/dL 10/29/2024 6:23 AM EST [facility] EGFR >90 >=60 mL/min 10/29/2024 6:23 AM EST [facility] Comment:eGFR is calculated b ased on the CKD-EPI 2020 equation. SODIUM 143 135 - 146 mmol/L 10/29/2024 6:23 AM EST [facility] POTASSIUM 4.8 3.5 - 5.1 mmol/L 10/29/2024 6:23 AM EST [facility] CHLORIDE 106 98 - 107 mmol/L 10/29/2024 6:23 AM EST [facility] CO2 23 22 - 32 mmol/L 10/29/2024 6:23 AM EST [facility] ANION GAP 14 7 - 15 mmol/L 10/29/2024 6:23 AM EST [facility] GLUCOSE 92 70 - 120 mg/dL 10/29/2024 6:23 AM EST [facility] Albumin 3.6(L) 3.8 - 5.0 g/dL 10/29/2024 6:23 AM EST [facility] AST 43 10 - 50 U/L 10/29/2024 6:23 AM EST [facility] Alkaline Phosphatase 171(H) 35 - 130 U/L 10/29/2024 6:23 AM EST [facility] Bilirubin, Total 0.3 <=1.2 mg/dL 10/29/2024 6:23 AM EST [facility] CALCIUM 9.2 8.4 - 10.2 mg/dL 10/29/2024 6:23 AM EST [facility] Protein 6.6 6.0 - 8.3 g/dL 10/29/2024 6:23 AM EST [facility] ALT 37 10 - 50 U/L 10/29/2024 6:23 AM EST [facility] Blood Venous blood specimen / Unknown Venipuncture / Unknown 10/28/2024 11:33 AM EST 10/28/2024 11:33 AM EST us Omer Wayne MD LAB BLOOD ORDERABLES Final Result LAB[facility]ATORY [facility] [address] [place] [address] documented in this encounter Visit Diagnoses Diagnosis Pain in both lower extremities- Primary Avascular necrosis of bone of hip, unspecified laterality (HCC) Anemia, unspecified type Coronary artery disease involving [place] coronary artery of [place] heart without angina pectoris Essential hypertension with goal blood pressure less than 140/90 Encounter for long-term (current) use of medications Encounter for long-term (current) use of other medications Hospital discharge follow-up Other follow-up examination Screen for colon cancer Special screening for malignant neoplasms, colon documented in this encounter Care Teams Oyster Culler Relationship Specialty Start Date End Date Omer Wayne MD PCP - General 02/19/05 11/08/24 documented as of this encounter"
--- OUTSIDE RECORDS SUMMARY | 2024-11-18 23:58 | External Medical Summary | Summary of Care ---
Author Name Unknown Organization [facility] Address [address] [place] [address] Phone [phone] Care Team Providers Care Tank Inspector Name Role Phone Omer Wayne MD Primary Care Provider +1- [phone] Reason for Visit * Reason Onset Date Comments FYI 11/02/2024 Encounter Details Date Type Department Care Team (Late st Contact Info) Description 11/02/[address] [facility] [place] [address] [phone] Omer Wayne MD [address] [facility] [address] [place] [address] FYI Allergies Active Allergy Reactions Criticality Noted Date Comments Onel Inhibitors 10/22/2023 To be avoided due to bilateral renal artery stenosis and worsening kidney function when on previously Prednisone 04/07/2023 documented as of this encounter (statuses as of 11/03/2024) Medications EQ Aspirin Adult Low Dose 81 [...] )Indications:COPD, group D, by GOLD 2017 classification ([facility]) Inhale 1 Puff by mouth [...] as of this encounter (statuses as of 11/03/2024) Active Problems Problem Noted Date Diagnosed Date [...] as of this encounter (statuses as of 11/03/2024) Resolved Problems Problem Noted Date Diagnosed Date [...] as of this encounter (statuses as of 11/03/2024) Social History Tobacco Use Types Packs/Day Years [...] No 01/01/2024 Does the household have a [facility] source of income? (Household - [...] Miscellaneous Notes * Telephone Encounter - Omer Wayne MD - 11/03/2024 11:42 AM EST noted * Telephone Encounter - Saji Palmer OSA - 11/02/2024 10:18 AM EST Reason for patient's call: Leeanne miner Nurse for [facility] calling to let PCP know that patient is enrolled Transitional care program. [phone] Ext. [phone] documented in this encounter Plan of Treatment Upcoming Encounters Date Type Department Care Team (Latest Contact Info) Description 11/07/2024 9:00 AM EST Office Visit Orthopaedics [facility] [address] [phone] Jag Hansen MD [address] [phone] 11/07/2024 10:00 AM EST Imaging Vascular Lab, [facility] II 2nd Floor, [place] [address] [address] 11/17/2024 2:40 PM EST Office Visit [facility] [address] [facility] [phone] Omer Wayne MD [address] [facility] [address] [place] [address] 11/23/2024 10:30 AM EST Office Visit [facility] Disorders [facility]tr [facility] [address] [phone] Jeanette Michael CRNP [address] [address] 12/07/2024 8:00 AM EDT Office Visit Gastroenterology, [facility] [address] [address] Dalia Karimi CRNP [address] [address] 01/18/2025 8:30 AM EDT Office Visit Pulmonary Medicine, [facility] [address] [place] [address] Ronny Virk MD [address] [address] 01/31/2025 1:00 PM EDT Hospital Encounter ENDO [facility], Endoscopy Room [facility] [address] [place] [phone] Rishabh Grady, DO [address] [place] [address] 01/31/2025 1:00 PM EDT - 01/31/2025 1:30 PM EDT Surgery ENDO [facility], Endoscopy Room [facility] [address] [place] [phone] Rishabh Grady, DO [address] [place] [address] COLONOSCOPY FLEXIBLE PROXIMAL DIAGNOSTIC 03/22/2025 11:00 AM EDT Office [facility] [place] [place] [address] Haven Nice PA-C [address] [facility] [address] [place] [phone] Scheduled Procedures Name Priority Associated Diagnoses Date/Ti [...] Depression Screening 12/31/2024 01/01/2024 GFR 10/28/2025 10/28/2024, 01/0 04/2025, 09/09/2024, Additional history exists O2 ASSESSMENT [...] encounter Medical Devices Implanted Type Area Chief Embalmer Device Identifier Shelf Expiration Date Model / Serial / Lot Mesh Plug Prefix [id number] [id number] - [id number] Implanted:Qty: 1 on 03/12/2018 by Donovan Raza MD at OR [facility] Right: Groin CR BARD : DAVOL 10/21/2018 [id number] / / [id number] documented as of this encounter Care Teams Tank Inspector Relationship Specialty Start Date End Date Omer Wayne MD PCP - General 02/19/05 documented as of this encounter
--- OUTSIDE RECORDS SUMMARY | 2024-11-18 23:58 | External Medical Summary ---
Author Name Unknown Address Unknown Organization K01:[facility] [address] [place] [address] Laboratory Report Ordering Provider Test Date Status ESTRELLA GRIMM 10/28/2024 11:33:55 Final Observation Date Value Abnormality Reference (Units ) Status Phosphate 10/28/2024 11:33:55 2.2 Below low normal 2.5 -4.8 (mg/dL) Final Performing Location [facility] - [address] [place] [id number]
[2024-11-19 00:43] LABS: Base Excess VBG -5.9 mEq/L; HCO3 VBG 24 mmol/L; Oxygen Saturation VBG < 60.0 %; PCO2 VBG 63 mmHg (38-50); PO2 VBG 31 mmHg; pH VBG 7.18 (7.36-7.41)
[2024-11-19] MEDS: NOREPINEPHRINE/D5W 4 MG/250 ML PLCT IV SCH (01:30)
[2024-11-19] MEDS: SODIUM CHLORIDE 0.9% 1,000 ML IV ONE (01:30)
[2024-11-19] MEDS: propofoL 1,000 MG/100 ML VIAL IV SCH (01:30)
[2024-11-19] MEDS: SODIUM BICARB 8.4% INJ 50 MEQ/50 ML SYR IV STA (01:30)
[2024-11-19] MEDS ORDERED: STAT IV Infusion **Titration per Protocol STA ×2 (01:31→01:34)
[2024-11-19] MEDS ORDERED: Concentrate Norepinephrine IV Infusion ONE (01:31)
--- NOTE | 2024-11-19 01:36 | Emergency Department Note ---
ED Visit Note Endotracheal Intubation Indication: Respiratory distress. The patient was on 100% oxygen via NRB prior to the procedure. Suction, airway equipment, RSI drugs, respiratory equipment, and appropriate personnel were prepared prior to the initiation of the procedure. A time out was taken. Induction was performed with etomidate and rocuronium. After observing the clinical benefit of the medications, the airway was easily visualized utilizing a glide scope. A 7.0 size ETT tube was placed atraumatically to 25 cm at the lip using standard technique. The cuff inflated without signs of malfunction. There were bilateral breath sounds, positive colormetric change, no gastric sounds, a good capnography waveform, and post procedure pulse oximetry was 98%. There were no complications. .
[2024-11-19] MEDS: fentaNYL citrate 2,500 MCG/250 ML BAG IV SCH (01:45)
--- NOTE | 2024-11-19 02:11 | Critical Care Consultation ---
Date of Consultation November 19, 2024 Assessment & Plan (1) Respiratory failure requiring intubation: (2) Transaminitis: (3) Alcohol use disorder: (4) Chronic obstructive pulmonary disease: Plan Reason Critically Ill: Patient presents to ICU tachycardic, hypotensive, respiratory acidosis clinically worsening on BiPAP and intubated for impending cardiovascular and respiratory instability/collapse. Neuro - Encephalopathy, ETOH misuse/abuse, sedation for mechanical ventilation CAM ICU: DAREN - Encephalopathy Multifactorial at this time- to include hypercarbia, acidosis, and ETOH withdrawal -No focal deficits at this time and normal reactive pupils -Got a dose of thiamine 500mg IV TSH mildly elevated with normal T4 Alcohol level negative at the time of presentation - Unsure of how much of his symptoms are related to ETOH at this time- Propofol and Fentanyl for sedation - could consider adding PRN Ativan down OGT if needed Cardiac - Shock unspecified, Hx of RBB 2D echo 12/03/2023: EF 65 to 70%, grade 1 diastolic dysfunction, RV normal in size and function, no PFO or intra-atrial shunt. - Patient technically meets sepsis criteria with possible source being pulmonary- Tachycardic, T 38, RR 34- hypotensive with organ dysfunction - - organ dysfunction - ALESSANDRO, LFT - Blood cultures obtained in EMD- NGTD, PCT initially negative- recheck, respiratory biofire negative - Responded well to fluid bolus on arrival - did require short course of Levophed - 1.5 L crystalloid bolus completed - RBB stable no acute changes on ECG on arrival to ICU - ECHO in am Respiratory - presented with dyspnea, required emergent intubation for hypercarbic respiratory failure with hx of COPD CT chest 11/18/2024 personally reviewed: Centrilobular emphysema appreciated bilaterally Dependent atelectasis bilateral, questionable infiltrate right lower lobe Mucus in the right main no significant mediastinal --Acute hypercapnic hypoxic respiratory failure Intubated for respiratory failure --COPD with emphysema Continue with nebulized medication -- Lung Nodule - 6 mm RLL nodule appears stable dating back to imaging on 06/24/2021. Continue with annual LDCT lung cancer screening exams given his smoking history, age, and risks. -- Tobacco use disorder - > [id number] smoking history, currently smoking half a pack a day. Importance of quitting explained to the patient in depth GI - elevated LFTS - Unclear of elevation at this time - possibly alcohol related -Salicylates and Tylenol negative - Continue supportive care - Ammonia within normal limit RENAL/LYTES - ALESSANDRO, multiple electrolyte disturbances, respiratory acidosis - PH on arrival 7.1- provided 1 amp bicarb prior to intubation - Replete electrolytes - Provide crystalloid for ALESSANDRO - contrast received on 11/18/24 - Renal dose medications as needed - Avoid further nephrotoxic medications as able, and if needed minimize exposure time - See ID section - Walton placed while intubated and sedated ENDO - No acute needs at this time - ICU hyperglycemic protocol HEME - No acute needs ID - Septic Shock Source unclear but likely pulmonary Procalcitonin 0.98 , Tmax 38.3 Nasal MRSA negative Respiratory BioFire negative for everything on 11/18/2024 - Blood cultures NGTD -UA clean on this admission, due to staph epi on previous - Rocephin changed to Cefepime, can continue Doxy at this time Supervising Physician Co-Signing Physician Notes I saw and evaluated the patient with DRAGAN Merino, and agree with findings and plan as documented in the note. Patient seen and examined at bedside. No acute distress. No adverse events overnight He was on 20 of propofol and 50 of fentanyl at the time of examination He was double triggering the went. I put him on pressure support and he was still getting good tidal volume on 01/23 with 50% FiO2 Constitutional: No acute distress HEENT: EOMI, PERRLA Respiratory system: Decreased air entry bilaterally, no wheeze, no rhonchi, mild crackles bilateral lower lobes CVS: S1-S2 positive, no murmurs or gallops Abdomen: Soft, nontender, nondistended, positive bowel sounds x4, obese Extremities: +2 pulses bilaterally radialis/ dorsalis pedis, no cyanosis, no edema Neuro: RASS -1, following simple commands, breathing over the vent Psych: Unable to assess G/U: Positive Walton --Prophylaxis VTE: Heparin GI: Pantoprazole Lines: Peripheral Diet: Tube feeds Plan: In/out: +1.8 L, urine output 385 Potassium is 5.5. DC home with p.o. potassium. Will repeat BMP later today to keep an eye on potassium Does have some transaminitis. Could be from history of alcohol use Continue to trend Start tube feeds I have personally spent 45 minutes of critical care time in the direct management of this patient. This is a life/limb threatening event. This includes time spent evaluating patient, direct bedside care, chart review, placing orders, interpretation of diagnostic studies, discussion with consultants, patient, as well as other required patient management activities. This time is exclusive of all separately billable procedures, and teaching time and separate from and in addition to any other critical care service time. Thank you for allowing us to participate in the care of this patient. Please refer to my attending physician's documentation for any further recommendations. History of Present Illness Reason for Consultation: encephalopathy, respiratory failure Requesting Physician: Wayne Tubbs MD Attending Physician: Angel Carmichael MD History of Present Illness 59 YOM that was admitted earlier today for complaints of shortness of breath. He was felt to have COPD exacerbation as well as drinking history. He has had progressive tachycardic since admission and was undergoing treatment for withdraw with Ativan IV. He was noted to also have increasing respirations and was placed on BiPAP as well. He continued to progress with agitation and tachycardia. He was evaluated on the floor following call from hospitalist, he was noted to be delirious, shaky and grabbing at stuff that wasn't there. He was pulling VT > 1000 on his BiPAP, but remained with increased HR. CTA was reviewed from admission that was negative for PE and possible atelectasis vs. pneumonia in lung bases. He has received 9mg of Ativan at this time. Discussed with primary team and patient to be brought to ICU for further evaluation and to obtain ABG now, with consideration of adding phenobarb therapy. On arrival to the ICU patient was noted to be more somnolent, but less directable. He was hypotensive at this time as well as noting return of VBG with PH 7.16 and CO2 increased to 62, HR continued to increase to 180s, for this reason patient was intubated as he was likely impending hemodynamic collapse or respiratory failure. He was given 1 amp of NAHCO3 prior to intubation as well as 1liter of crystalloid. See separate procedure note, appreciate ER assistance in managing patient's airway. He remained hypotensive following induction and required LEVOphed for BP support. ABG will be obtained following intubation. Family updated by primary team. CODE: FULL Allergies Allergy/AdvReac Type Severity Reaction Status Date / Time TONIA Inhibitors AdvReac Severe ALESSANDRO Verified 01/13/24 09:28 ARB-Angiotensin Receptor AdvReac Severe ALESSANDRO Verified 12/28/23 09:35 Antagonist prednisone AdvReac Mild "jitterines Verified 12/28/23 09:35 s" Home Medications Medication Instructions Recorded Confirmed Type aspirin 81 mg tablet,delayed 81 mg PO QAM #30 tabs 03/09/23 11/18/24 Rx release atorvastatin 80 mg tablet 80 mg PO QAM 03/16/23 11/18/24 History baclofen 10 mg tablet 10 mg PO TID PRN Muscle Spasm 06/09/23 11/18/24 History ipratropium 0.5 mg-albuterol 3 mg 3 ml inhalation Q6H PRN 06/11/23 11/18/24 Rx (2.5 mg base)/3 mL nebulization wheezing/severe shortness of soln breath #90 mL furosemide 20 mg tablet 20 mg PO QAM 10/14/23 11/18/24 History potassium chloride 20 mEq 20 meq PO QAM 10/14/23 11/18/24 History tablet,extended release folic acid 1 mg tablet 1 mg PO QAM #30 tabs 12/07/23 11/18/24 Rx fluticasone fur. 200 mcg-umeclid 1 inh inhalation QAM 12/28/23 11/18/24 History 62.5 mcg-vilant 25 mcg inhalat.powder (Trelegy Ellipta) lorazepam 1 mg tablet 1 mg PO Q6 PRN Anxiety 10/18/24 11/18/24 History sertraline 50 mg tablet 50 mg PO QAM 10/18/24 11/18/24 History tramadol 50 mg tablet 50 mg PO Q6 PRN Pain 10/18/24 11/18/24 History carvedilol 3.125 mg tablet (Coreg) 3.125 mg PO BID #60 tabs 10/21/24 11/18/24 Rx multivitamin with folic acid 400 1 tab PO QAM 30 days #30 tabs 10/21/24 11/18/24 Rx mcg tablet (Daily-Karen (with folic acid)) nicotine 7 mg/24 hr daily 1 patch transdermal QAM #28 ea 10/21/24 11/18/24 Rx transdermal patch pantoprazole 40 mg tablet,delayed 40 mg PO UD #37 tabs 10/21/24 11/18/24 Rx release thiamine HCl (vitamin B1) 100 mg 100 mg PO QAM 30 days #30 tabs 10/21/24 11/18/24 Rx tablet Patient History Medical History On home oxygen therapy 2 LPM at Acute respiratory failure with hypoxia hospitalized at [facility] November 2023 for this, still having some shortness of breath with activity, at rest is okay Hepatic steatosis CAD (coronary artery disease) GERD (gastroesophageal reflux disease) controlled, stable per pt Kidney disease following with [facility] Nephrology. Sleep apnea no device Plaque psoriasis Hx of seasonal allergies Spinal stenosis History of shingles 05/2022, PRN gabapentin for chronic right eye irritation/pain from shingles Surgical History History of cardiac catheterization 02/2023 [facility]. no stents. History of back surgery lumbar > "bone spur shaving" Hx of arthroscopic knee surgery Left Hx of foot surgery Left Hx of inguinal hernia repair History of esophagogastroduodenoscopy (EGD) Family History Father Diabetes Social History Smoking Status: Current every day smoker Tobacco Type: Cigarettes Cigarettes Per Day: .5 pack a day; Second Hand Exposure: No; Do You Dip or Chew Tobacco: No; Hx Alcohol Use: Yes Alcohol type: hard liquor Alcohol Intake Frequency: 4 or More x per/Week Alcohol Intake Frequency Comment: 2-12 beers 5x/week Hx Substance Use: No Preferred Language: Amharic Communication Ability: Effective [employer] Required: No Beliefs That Will Affect Care: None Current Living Situation: Alone and Family Current Living Situation Comment: lives with mom Other Information That Helps Us Care for You: Yes Feels Safe at Home: Yes Safety Concerns: Feels Safe At This Time Assistive Devices: Walker Review of Systems Review of Systems: REVIEW OF SYSTEMS: Unable to obtain secondary to encephalopathy and now is intubated and sedated Physical Exam Physical Exam: PHYSICAL EXAM: General:Encephalopathic Head: Normocephalic, atraumatic ENT: PERRLA, EOMI, no pharyngeal exudate, mucous membranes dry Neuro: AAO x 1, speech confused, strength intact bilaterally 5/5, moving all extremities prior to intubation Chest: equal rise and fall of the chest, abdominal accessory muscle use, decreased in bases Cardiac: Regular rate and rhythm, telemetry reviewed- sinus tachycardia, skin warm moist, cap refill <3 seconds, peripheral pulses +2 no JVD, no murmur GI: NABS x 4 quadrants, soft, nontender to palpation, no rebound, guarding or tenderness : Walton to gravity Results & Data Results & Data Vital Signs (Past 12 Hours) Vital Signs Temp Pulse Pulse Resp BP BP Pulse Ox 11/19/24 00:00 153 H 11/18/24 23:50 36.4 C L 150 H 34 H 112/76 95 11/18/24 23:34 37.4 C 131 H 32 H 131/88 95 11/18/24 23:32 137 H 131/88 11/18/24 23:18 147 H 144/118 H 11/18/24 22:59 36.7 C 147 H 30 H 144/117 H 98 11/18/24 22:34 143 H 140/93 11/18/24 22:13 153 H 155/98 H 11/18/24 22:09 152 H 22 155/98 H 93 11/18/24 21:33 130 H 24 96 11/18/24 21:30 130 H 24 96 11/18/24 20:29 36.3 C L 130 H 32 H 176/115 H 93 11/18/24 20:00 11/18/24 19:29 119 H 22 98 11/18/24 18:38 36.4 C L 116 H 22 151/90 H 95 11/18/24 18:00 121 H 11/18/24 17:47 36.7 C 11/18/24 17:40 111 H 17 149/97 H 94 11/18/24 15:36 94 11/18/24 15:29 36.5 C 11/18/24 14:41 111 H 20 130/98 97 11/18/24 14:28 114 H O2 Del Method O2 Flow Rate 11/19/24 00:00 11/18/24 23:50 BiPAP 11/18/24 23:34 BiPAP 11/18/24 23:32 11/18/24 23:18 11/18/24 22:59 BiPAP 11/18/24 22:34 11/18/24 22:13 11/18/24 22:09 BiPAP 11/18/24 21:33 BiPAP 4 11/18/24 21:30 4 11/18/24 20:29 Nasal Cannula 4 11/18/24 20:00 Nasal Cannula 3 11/18/24 19:29 Nasal Cannula 6 11/18/24 18:38 Nasal Cannula 2 11/18/24 18:00 11/18/24 17:47 11/18/24 17:40 Nasal Cannula 2 11/18/24 15:36 Nasal Cannula 2 11/18/24 15:29 11/18/24 14:41 Nasal Cannula 5 11/18/24 14:28 Laboratory Results Abnormal lab results 11/18/24 11/19/24 Range/Units 14:46 00:28 RBC 3.56 L (4.70-6.10) M/uL Hgb 11.1 L (14.0-18.0) g/dl Hct 34.1 L (42.0-52.0) % RDW Std Deviation 76.9 H (36.4-46.3) fL RDW Coeff of Rogelio 22.2 H (11.5-14.5) % MPV 9.0 L (9.4-12.4) fL Neut # (Auto) 9.23 H (1.40-6.50) K/uL Lymph # (Auto) 0.55 L (1.20-3.40) K/uL VBG pH 7.46 H 7.18 L (7.36-7.41) VBG pCO2 33 L 63 H (38-50) mmHg Anion Gap 13 H (3-11) Glucose 105 H (70-99(Fasting)) mg/dl Calcium 8.1 L (8.6-10.3) mg/dl AST 117 H (13-39) U/L ALT 59 H (7-52) U/L Alkaline Phosphatase 228 H (34-104) U/L Albumin 3.2 L (3.4-5.0) gm/dl Diagnostic Findings Chest X-Ray 11/18/24 13:55 XR chest 1V portable CLINICAL HISTORY: SOB COMPARISON STUDY: 10/17/2024 FINDINGS: Heart size and pulmonary vasculature are normal. No effusion or consolidation. No pneumothorax. IMPRESSION: No acute findings. ACT 112: Negative or not required by law. Electronically signed by: Jaylen German M.D. 11/18/2024 2:27 PM Chest CTA 11/18/24 14:19 CT angio chest PE protocol CT DOSE: 911.67 mGy.cm HISTORY: PE. TECHNIQUE: Multiple CTA images of the chest were obtained after the intravenous administration of 120 ml Optiray. Coronal and sagittal MIPS were obtained from the axial data set and were submitted for review. All measurements were obtained according to NASCET criteria. A dose lowering technique was utilized adhering to the principles of ALARA. COMPARISON STUDY: 12/01/2023 FINDINGS: There is increased mild reticular and patchy opacity in the dependent lung bases, right greater than left, atelectasis versus early pneumonia. There is mild emphysema. No other pulmonary consolidation or pleural effusion. No pneumothorax. No enlarged adenopathy. No pericardial effusion. There are diffuse coronary artery calcifications. No thoracic aortic dissection or aneurysm. No pulmonary embolism seen. There are thoracic spine degenerative changes. IMPRESSION: 1. No pulmonary embolism seen. 2. Atelectasis versus early pneumonia in the dependent lung bases. ACT 112: Negative or not required by law. The above report was generated using voice recognition software. It may contain grammatical, syntax or spelling errors. Electronically signed by: Jaylen German M.D. 11/18/2024 3:11 PM Medications Administered Budesonide (Budesonide 0.5 Mg/2 Ml Vial (Pulmicort)) 0.5 mg NEB BIDR MARANDA Stop: 12/18/24 20:49 Last Admin: 11/18/24 21:19 Dose: 0.5 mg Documented By: CAM Carvedilol (Carvedilol 3.125 Mg Tab) 3.125 mg PO BID MARANDA Stop: 12/18/24 20:59 Last Admin: 11/18/24 20:33 Dose: 3.125 mg Documented By: LMP Formoterol Fumarate (Formoterol 20 Mcg/2 Ml Vial) 20 mcg NEB BIDR MARANDA Stop: 12/18/24 20:49 Last Admin: 11/18/24 21:19 Dose: 20 mcg Documented By: CAM Methylprednisolone 40 mg/ (Syringe) 0.64 mls @ 1.5 mls/min IV TID MARANDA Stop: 12/18/24 20:59 Last Admin: 11/18/24 21:08 Dose: 1.5 mls/min Documented By: LMP Levalbuterol HCl (Levalbuterol 1.25 Mg/3 Ml Neb) 1.25 mg NEB QID MARANDA Stop: 12/18/24 20:59 Last Admin: 11/18/24 21:16 Dose: Not Given Documented By: CAM Pantoprazole Sodium (Pantoprazole 40 Mg Tab) 40 mg PO BID MARANDA Stop: 12/18/24 20:59 Last Admin: 11/18/24 20:33 Dose: 40 mg Documented By: LMP Discontinued Medications Albuterol (Albut/Ipratrop 3mg/0.5mg Neb 3 Ml Vial) 6 ml NEB NOW STA; Protocol Stop: 11/18/24 14:05 Last Admin: 11/18/24 15:02 Dose: 6 ml Documented By: ANJALI Albuterol (Albut/Ipratrop 3mg/0.5mg Neb 3 Ml Vial) 3 ml NEB QIDR MARANDA; Protocol Stop: 12/18/24 18:59 Last Admin: 11/18/24 19:26 Dose: 3 ml Documented By: CHRISTIAN Dexamethasone Sodium Phosphate (DexamethasonePf 10 Mg/Ml Vial) 10 mg IV NOW ONE Stop: 11/18/24 14:09 Last Admin: 11/18/24 15:02 Dose: 10 mg Documented By: ANJALI Doxycycline Hyclate (Doxycycline Hyclate 100 Mg Cap) 100 mg PO BID MARANDA Stop: 11/23/24 20:59 Last Admin: 11/18/24 20:33 Dose: 100 mg Documented By: LMP Gabapentin (Gabapentin 600 Mg Tab) 1,200 mg PO NOW ONE Stop: 11/18/24 17:28 Last Admin: 11/18/24 18:04 Dose: Not Given Documented By: RNC Gabapentin (Gabapentin 600 Mg Tab) 600 mg PO Q6H [facility] Stop: 11/19/24 05:31 Last Admin: 11/18/24 22:31 Dose: 600 mg Documented By: LMP Ceftriaxone Sodium (Rocephin) 2,000 mg in 50 mls @ 100 mls/hr IV NOW STA Stop: 11/18/24 14:37 Last Infusion: 11/18/24 15:36 Dose: Infused Documented By: Admin: 11/18/24 15:02 Dose: 100 mls/hr Documented By: ANJALI Ioversol (Optiray 320 125ml) 115 ml IV ONCE ONE Stop: 11/18/24 14:57 Last Admin: 11/18/24 14:57 Dose: 115 ml Documented By: CRAIG Lorazepam (Lorazepam 1 Mg Tab) 1 mg PO Q6 PRN PRN Reason: Anxiety Stop: 12/18/24 18:01 Last Admin: 11/18/24 19:39 Dose: 1 mg Documented By: LMP Lorazepam (Lorazepam 2 Mg/1 Ml Vial) 2 mg IV UD PRN; Protocol PRN Reason: EtOH Withdrawal AWSS Score 8,9 Stop: 12/18/24 20:43 Last Admin: 11/19/24 00:33 Dose: 2 mg Documented By: Admin: 11/19/24 00:04 Dose: 2 mg Documented By: Admin: 11/18/24 21:49 Dose: 2 mg Documented By: LMP Lorazepam (Lorazepam 2 Mg/1 Ml Vial) 3 mg IV ONCE PRN; Protocol PRN Reason: EtOH Withdrawal AWSS Score 10+ Last Admin: 11/18/24 23:04 Dose: 3 mg Documented By: LMP Metoprolol Tartrate (Metoprolol Tartrate 1 Mg/Ml Vial) 5 mg IV NOW STA Stop: 11/18/24 22:07 Last Admin: 11/18/24 22:13 Dose: 5 mg Documented By: LMP Metoprolol Tartrate (Metoprolol Tartrate 1 Mg/Ml Vial) 2.5 mg IV NOW STA Stop: 11/18/24 23:10 Last Admin: 11/18/24 23:18 Dose: 2.5 mg Documented By: LMP ECG Additional Comments: Sinus tachycardiawith short LA Right bundle branch block Left anterior fascicular block Bifascicular block Abnormal ECG When compared with ECG [id number] 14:08,(unconfirmed) Sinus rhythmhas replacedWide QRS rhythm Coding Level of Care Code 46976 CRITICAL CARE 1ST 30-74M Diagnoses Respiratory failure requiring intubation J96.90 Transaminitis R74.01 Alcohol use disorder F10.90 Chronic obstructive pulmonary disease J44.1 COPD type: COPD with acute exacerbation (4) Chronic obstructive pulmonary disease COPD type: COPD with acute exacerbation Qualified Code(s): J44.1 - Chronic obstructive pulmonary disease with (acute) exacerbation
[2024-11-19 02:30] LABS: Anion Gap 10 (3-11); BUN Creatinine Ratio 6.8 (10-20); Blood Urea Nitrogen 10 mg/dl (6-23); Calcium 7.1 mg/dl (8.6-10.3); Carbon Dioxide 25 mmol/L (21-32); Chloride 100 mmol/L (98-107); Creatinine Clr Calc Pharmacy 69.1 ml/min; Glucose 120 mg/dl (70-99(Fasting)); Magnesium 1.2 mg/dl (1.7-2.4); Sodium 135 mmol/L (136-145)
[2024-11-19 02:32] LABS: iSTAT Allen Test Pass; iSTAT Art Bld Gas pCO2 Correct 41 mmHg (35-46); iSTAT Art Bld Gas pH Corrected 7.364 (7.35-7.45); iSTAT Arterial Blood Gas HCO3 23 meg/L (19-24); iSTAT Arterial Blood Gas pCO2 39 mmHg (35-46); iSTAT Arterial Blood Gas pH 7.38 (7.35-7.45); iSTAT Arterial Blood Gas pO2 131 mmHg (80-95); iSTAT Arterial Blood Gas pO2 C 137; iSTAT Carbon Dioxide 24 mmol/L (24-31); iSTAT FiO2 100 %; iSTAT Hematocrit 42 % (42-52); iSTAT Hemoglobin 14.3 g/dl (14.0-18.0); iSTAT Potassium 5.3 mmol/L (3.3-5.0); iSTAT Sample Type Arterial; iSTAT Site L Radial; iSTAT Sodium 137 mmol/L (135-144); iSTAT SpO2 98
[2024-11-19] MEDS: PROPOFOL IV EMULSION 10 MG/ML 100 ML VIAL IV ONE (02:35)
[2024-11-19] MEDS: SODIUM BICARB 8.4% INJ 50 MEQ/50 ML SYR IV ONE (02:35)
[2024-11-19] MEDS: RAPID SEQUENCE INDUCTION BAG ONE (02:35)
[2024-11-19] MEDS: NOREPINEPHRINE/D5W 4 MG/250 ML IV ONE (02:36)
[2024-11-19] MEDS: fentaNYL citrate 2,500 MCG/250 ML BAG IV ONE (02:36)
[2024-11-19] MEDS: PHENobarbital sodium 65 MG/ML VIAL IV STA (02:38)
[2024-11-19] MEDS: THIAMINE HCL 500 MG in SODIUM CHLORIDE 0.9% 50 ML IV STA (02:49)
[2024-11-19] MEDS: MAGNESIUM SULFATE / D5W 1 GM/100 ML BAG IV SCH ×2 (02:50→23:44)
[2024-11-19] MEDS: LACTATED RINGER'S 500 ML IV ONE ×3 (02:52→22:10)
[2024-11-19] MEDS: CEFEPIME 2000MG 2,000 MG/20 ML SYR IV SCH (03:07)
[2024-11-19 03:16] LABS: Basophils # (auto) 0.01 K/uL (0.00-0.20); Basophils % (auto) 0.1 %; Hematocrit (blood only) 40.1 % (42.0-52.0); Hemoglobin 13.1 g/dl (14.0-18.0); Immature Granulocytes # (auto) 0.07 K/uL (0.01-0.20); Immature Granulocytes % (auto) 0.6 %; Lymphocytes # (auto) 0.32 K/uL (1.20-3.40); Lymphocytes % (auto) 2.7 %; Mean Corpuscular Hgb Conc 32.7 g/dL (32.0-36.0); Mean Corpuscular Volume 94.8 fL (80.0-100.0); Monocytes # (auto) 0.86 K/uL (0.11-0.59); Monocytes % (auto) 7.4 %; Neutrophils % (auto) 89.2 %; Nucleated RBC # (auto) 0.05 K/uL (0.00-0.12); Nucleated RBC % (auto) 0.4 %; Platelet Count 184 K/uL (130-400); RDW Coefficient of Variation 22.5 % (11.5-14.5); RDW Standard Deviation 75.5 fL (36.4-46.3); Red Blood Count 4.23 M/uL (4.70-6.10); White Blood Count 11.66 K/ul (4.8-10.8)
[2024-11-19 03:18] LABS: Appearance Urine Clear (Clear); Bacteria Urine Automated None Seen (None Seen); Bilirubin Urine Negative (Negative); Blood Urine Negative (Negative); Cast Urine Automated 0-2 /lpf (0-2); Color Urine Dark Yellow; Epithelial Cell Urine Auto 0-2 /hpf (0-2); Glucose Urine UA Negative (Negative); Ketones Urine Trace (Negative); Leukocyte Esterase Urine Negative (Negative); Nitrite Urine Negative (Negative); Protein Urine 1+ (Negative); RBC Urine Automated 0-2 /hpf (0-2); Specific Gravity Urine > 1.045 (1.000-1.030); Urobilinogen Urine Negative (Negative); WBC Urine Automated 0-5 /hpf (0-5)
[2024-11-19] MEDS: LACTATED RINGER'S 1,000 ML IV SCH ×2 (03:28→23:44)
[2024-11-19 03:34] LABS: Potassium 5.5 mmol/L (3.5-5.1)
[2024-11-19 03:35] LABS: Albumin Globulin Ratio 0.9 (0.9-2); Albumin Level 2.9 gm/dl (3.4-5.0); BUN Creatinine Ratio 6.8 (10-20); Bilirubin,Total 1.9 mg/dl (0.2-1.0); Calcium 6.1 mg/dl (8.6-10.3); Creatinine Clr Calc Pharmacy 68.6 ml/min; Globulin 3.3 gm/dl (2.5-4.0); Magnesium 1.1 mg/dl (1.7-2.4); Potassium 5.5 mmol/L (3.5-5.1); Total Protein 6.2 gm/dl (6.0-8.3)
[2024-11-19 03:59] LABS: Acetaminophen < 3 ug/ml (10-30); Salicylate < 3.0 mg/dl (3.0-30); Troponin I High Sensitivity 20.8 pg/ml (0-20)
--- NOTE | 2024-11-19 04:01 | XRay Report ---
EXAM: XR chest 1V portable CLINICAL HISTORY: post intubation, eval ETT placement TECHNIQUE: An X-ray image of the chest is obtained in AP projection. COMPARISON: 10/17/2024 CR. FINDINGS: ETT seen its tip seen 4.9 cm above la. NG tube noted, reaching left infradiaphragmatic, its tip not seen Pulmonary Parenchyma: Prominent bronchovascular markings. Lungs are clear bilaterally. No evidence of consolidation, collapse, or focal opacities. No pulmonary nodules are identified. Blunted left cp angle. Heart and Mediastinum: Heart size and shape are normal. No mediastinal widening or masses. No hilar or mediastinal lymphadenopathy. Bony Thorax: Bony thorax appears intact without fractures or deformities. Soft Tissues: Soft tissues overlying the chest wall are unremarkable. IMPRESSION: 1. ETT seen its tip seen 4.9 cm above la. new 2. NG tube noted, reaching left infradiaphragmatic, its tip not seen (new) 3. Prominent bronchovascular markings. (stable) 4. Blunted left costophrenic angle, could be due to pleural effusion (new finding) Electronically signed by Jered Dinh 11-19-2024 04:00 AM
[2024-11-19 04:24] LABS: Anisocytosis Present; Polychromasia 1+; Tear Drop Cells 1+; Toxic Vacuolation 1+
[2024-11-19] MEDS ORDERED: ETOMIDATE 2 MG/ML 20 ML VIAL IV ONE (06:30)
[2024-11-19] MEDS ORDERED: ROCURONIUM BROMIDE 10 MG/ML 5 ML VIAL IV ONE (06:30)
--- NOTE | 2024-11-19 07:50 | Communication Note ---
Date of Service: November 19, 2024 Dhara was admitted for copd exacerbation , developing pneumonia and alcohol withdrwal. On the floor last night patient complained of sob and was shaky. got a dose of solumderol, nebss. no obvios wheezing on exam. Was tachycardic and tachypneic. he got ativan and placed on bipap. Heart rates went upto 150. he got iv lopressor 5mg and then 2.5mg. Even after 7mg iv ativan he was still tachy, tachypnea and agitated. Notified ICU. Then he got one more dose of ativan iv 2mg total of 9mg and then was decided for phenobarbital and transferred to [facility] as [facility] U patient for close monitoring. BUT his vbg came as ph 7.18 and pco2 63 and his HR climbed again to 150-180 and was becoming hypotensive and critical care decided to intubated him. s/p intubation . Required levophed drip for sometime. Hypotension responded to fluid bolus and off of Levophed. ICU changed Rocephin to cefepime. continued doxy. mrsa swab came back negative. repeat labs in icu showed elevated lactic acid and procalcitonin. Possibly patient was becoming septic. Appreciate critical acre help. . Called and notified Sister when icu decided for intubation. Notified Am providers.
[2024-11-19] MEDS: DOXYCYCLINE HYCLATE 100 MG in DEXTROSE 5% MINI-B 100 ML IV SCH (08:46)
[2024-11-19] MEDS ORDERED: methylPREDNISolone 125 MG/2 ML VIAL IV SCH (09:00)
[2024-11-19] MEDS ORDERED: FUROSEMIDE 20 MG TAB PO SCH (09:00)
[2024-11-19] MEDS ORDERED: FLUTICASONE FUROATE 200MCG 14 PUFFS/INHALER INH SCH (09:00)
[2024-11-19] MEDS ORDERED: THIAMINE HCL 100 MG TAB PO SCH (09:00)
[2024-11-19] MEDS ORDERED: UMECLIDINIUM/VILANTEROL 62.5/25MCG 7 PUFFS/INHALER INH SCH (09:00)
[2024-11-19] MEDS ORDERED: NON-FORMULARY MEDICATION (Fluticasone-Umeclidin-Vilanter [Trelegy Ellipta] 200-62.5-25 mcg INH SCH (09:00)
[2024-11-19] MEDS ORDERED: methylPREDNISolone 40 MG in SYRINGE 0 ML IV SCH (09:00)
[2024-11-19 09:11] LABS: Thyroid Stimulating Hormone 8.765 uIu/ml (0.300-4.500)
[2024-11-19 09:46] LABS: T4 Free Thyroxine 0.78 ng/dl (0.61-1.60)
[2024-11-19] MEDS: POTASSIUM CHLORIDE CRTAB 20 MEQ TABCR PO SCH (10:19)
[2024-11-19] MEDS: PANTOprazole 40 MG in SYRINGE DAILY IV SCH (11:08)
[2024-11-19] MEDS: THIAMINE HCL 500 MG in SODIUM CHLORIDE 0.9% 50 ML IV SCH (11:09)
[2024-11-19] MEDS: HEPARIN SOD 5,000 UNIT/0.5 ML VIAL SQ SCH (11:10)
[2024-11-19] MEDS: FOLIC ACID 1 MG TAB PO SCH (11:28)
[2024-11-19] MEDS: ASPIRIN 81 MG CHEW PO SCH (11:35)
[2024-11-19] MEDS: ASPIRIN 81 MG ECTAB PO SCH (12:03)
[2024-11-19] MEDS ORDERED: GABAPENTIN 600 MG TAB PO SCH (13:30)
[2024-11-19] MEDS ORDERED: cefTRIAXone SODIUM 2,000 MG/50 ML BAG IV SCH (14:00)
--- NOTE | 2024-11-19 15:30 | Hospitalist Progress Note ---
Date of Service November 19, 2024 Assessment & Plan (1) Acute on chronic anemia: (2) Alcohol use disorder: (3) Obesity (BMI 30.0-34.9): (4) Chronic obstructive pulmonary disease: (5) Hypertension: (6) CAD (coronary artery disease): (7) GERD (gastroesophageal reflux disease): (8) Hepatic steatosis: (9) On home oxygen therapy: Plan Patient is a 59-year-old male with past medical history of COPD, SAROJ, hypertension, alcohol use disorder, coronary artery disease who presented to the hospital with shortness of breath. Acute on chronic hypoxic respiratory failure COPD exacerbation CAP Alcohol use disorder Alcohol withdrawal Patient presented to the hospital with shortness of breath; found to have COPD exacerbation. CTA chest on admission did not show PE; found to have mild reticular and patchy opacity in dependent lung bases. Overnight on November 18, patient became agitated; requiring multiple doses of Ativan for suspected alcohol withdrawal; ABG showed acute hypercapnic respiratory failure. Patient was transferred to ICU and mechanically ventilated Continue mechanical ventilation, sedation as per ICU Continue on budesonide, formoterol nebs Continue antibiotics cefepime and doxycycline Continue thiamine Hx CAD/HLD: Diastolic CHF: Continue, hold statin with transaminitis coreg and lasix on hold Hx SAROJ Continue 3 L oxygen at bedtime Recent GI bleedJanuary 2024 Esophageal ulcer/gastritis Continue on Protonix Full code DVT prophylaxis:heparin Time spent evaluating patient, direct bedside care, chart review, placing orders, interpretation of diagnostic studies, discussion with consultants, patient, and family members, as well as other required patient management activities is 50 minutes Please note the above document was generated using voice recognition software. It may contain grammatical, syntax or spelling errors. Any formal questions or concerns about the content, text or information contained within the body of this dictation should be directly addressed to the provider for clarification Admission and Anticipated Discharge Date Admission Date: November 18, 2024 Subjective Patient seen and examined in ICU He is intubated and sedated Hemodynamically stable Review of Systems Review of Systems: Unobtainable due to reduced consciousness Physical Exam Physical Exam: Constitutional: Mechanically ventilated and sedated Respiratory: Bilateral mechanical breath sound Cardiovascular: RRR, no murmur, no edema Vessels: no JVD or carotid bruit Chest: normal inspection of chest Abdomen: normal bowel sounds, soft, nontender, no hepatosplenomegaly Musculoskeletal: no cyanosis or clubbing, extremities motor strength 5/5 Skin: no rashes, warm and dry normal turgor Neurologic: Sedated Results & Data Results & Data Vital Signs (Past 12 Hours) Vital Signs Temp Pulse Resp BP Pulse Ox O2 Del Method FiO2 11/19/24 14:36 104 H 18 90 50 11/19/24 14:06 37.6 C H 104 H 18 92 11/19/24 14:00 114/82 11/19/24 13:57 37.6 C H 105 H 17 91 11/19/24 13:45 109/82 11/19/24 13:45 109/82 11/19/24 13:45 109/82 11/19/24 13:45 37.5 C 105 H 18 92 11/19/24 13:30 37.5 C 104 H 18 92 11/19/24 13:30 110/78 11/19/24 13:30 110/11/19/24 13:30 110/11/19/24 13:30 110/78 11/19/24 13:15 37.5 C 103 H 17 93 11/19/24 13:15 107/81 11/19/24 13:15 107/81 11/19/24 13:15 107/81 11/19/24 13:15 107/81 11/19/24 13:00 111/82 11/19/24 13:00 111/82 11/19/24 13:00 37.5 C 102 H 18 94 11/19/24 12:30 37.4 C 101 H 16 93 11/19/24 12:30 107/82 11/19/24 12:30 107/82 11/19/24 12:30 107/82 11/19/24 12:30 107/82 11/19/24 12:30 107/82 11/19/24 12:15 105/78 11/19/24 12:15 105/78 11/19/24 12:09 37.4 C 102 H 17 93 11/19/24 12:03 37.4 C 101 H 15 92 11/19/24 12:00 111/11/19/24 12:00 11111/19/24 11:36 37.4 C 101 H 19 93 11/19/24 11:30 106/78 11/19/24 11:18 37.3 C 102 H 17 92 11/19/24 11:15 107/75 11/19/24 11:15 107/75 11/19/24 11:15 107/75 11/19/24 11:06 37.3 C 102 H 20 96 11/19/24 11:00 109/79 11/19/24 11:00 37.3 C 101 H 18 92 11/19/24 10:45 108/82 11/19/24 10:45 108/82 11/19/24 10:42 37.3 C 101 H 18 93 11/19/24 10:30 102/79 11/19/24 10:30 37.3 C 101 H 16 92 11/19/24 10:30 100 H 18 92 50 11/19/24 10:15 37.3 C 101 H 26 H 94 11/19/24 10:15 111/74 11/19/24 10:15 111/74 11/19/24 10:15 111/74 11/19/24 10:00 37.3 C 101 H 27 H 93 11/19/24 10:00 112/82 11/19/24 09:45 104/77 11/19/24 09:42 37.3 C 101 H 24 93 11/19/24 09:30 37.3 C 101 H 26 H 94 11/19/24 09:30 108/82 11/19/24 09:15 108/76 11/19/24 09:09 37.3 C 100 H 26 H 93 11/19/24 09:00 104/82 11/19/24 09:00 104/82 11/19/24 09:00 37.3 C 100 H 27 H 94 11/19/24 08:45 107/78 11/19/24 08:00 Mechanical Vent 70 11/19/24 07:27 99 H 26 H 94 65 11/19/24 06:49 101 H 11/19/24 06:15 107/11/19/24 06:12 37.5 C 108 H 26 H 97 11/19/24 06:00 107/11/19/24 06:00 37.4 C 105 H 25 H 94 Mechanical Vent 70 11/19/24 05:45 37.0 C 105 H 25 H 94 11/19/24 05:45 105/84 11/19/24 05:33 37.7 C H 106 H 25 H 94 Mechanical Vent 70 11/19/24 05:30 122/11/19/24 05:30 122/11/19/24 05:30 122/11/19/24 05:30 122/82 11/19/24 05:21 37.6 C H 142 H 24 93 11/19/24 05:15 37.4 C 141 H 24 93 11/19/24 05:15 11/19/24 05:15 11/19/24 05:15 11/19/24 05:03 37.8 C H 169 H 24 93 11/19/24 05:00 11/19/24 05:00 11/19/24 05:00 11/19/24 05:00 11/19/24 04:57 37.8 C H 115 H 24 93 11/19/24 04:48 37.8 C H 106 H 25 H 94 11/19/24 04:45 103/11/19/24 04:30 133/11/19/24 04:27 37.8 C H 105 H 24 93 11/19/24 04:15 37.8 C H 105 H 24 95 11/19/24 04:15 108/11/19/24 04:15 108/11/19/24 04:15 108/11/19/24 04:15 108/79 11/19/24 04:09 70 11/19/24 04:00 37.8 C H 105 H 24 95 Mechanical Vent 70 11/19/24 04:00 113/11/19/24 04:00 113/11/19/24 04:00 Mechanical Vent 70 11/19/24 03:45 111/11/19/24 03:45 11111/19/24 03:30 98/76 L (4) Chronic obstructive pulmonary disease COPD type: COPD with acute exacerbation Qualified Code(s): J44.1 - Chronic obstructive pulmonary disease with (acute) exacerbation
[2024-11-19 16:53] LABS: BUN Creatinine Ratio 6.8 (10-20); Calcium 5.9 mg/dl (8.6-10.3); Creatinine Clr Calc Pharmacy 39.6 ml/min
[2024-11-19] MEDS: CALCIUM GLUCONATE 1,000 MG/60 ML BAG IV SCH ×2 (17:48→23:45)
[2024-11-19] MEDS: ACETAMINOPHEN 325 MG TAB PO PRN (18:06)
[2024-11-19] MEDS: PLASMA-LYTE A 1,000 ML IV SCH (18:46)
[2024-11-19] MEDS: TUBE FEEDING WATER FLUSH GT SCH (20:13)
[2024-11-19] MEDS: PEPTAMEN INTENSE VHP 1.0 CAL 1,000 ML BAG GT SCH (20:55)
[2024-11-20] MEDS: fentaNYL BOLUS from BAG IV PRN (03:30)
[2024-11-20] MEDS: PROPOFOL BOLUS FROM BAG IV PRN (03:30)
[2024-11-20 04:27] LABS: Base Excess VBG -4.7 mEq/L; HCO3 VBG 20 mmol/L; Oxygen Saturation VBG 92.3 %; PCO2 VBG 33 mmHg (38-50); PO2 VBG 63 mmHg; pH VBG 7.38 (7.36-7.41)
[2024-11-20 04:49] LABS: Albumin Globulin Ratio 0.9 (0.9-2); Albumin Level 2.5 gm/dl (3.4-5.0); Bilirubin,Total 1.5 mg/dl (0.2-1.0); Calcium 6.8 mg/dl (8.6-10.3); Creatinine Clr Calc Pharmacy 34.3 ml/min; Globulin 2.9 gm/dl (2.5-4.0); Magnesium 2.3 mg/dl (1.7-2.4); Phosphorus 3.2 mg/dl (2.5-4.9); Potassium 4.4 mmol/L (3.5-5.1); Total Protein 5.4 gm/dl (6.0-8.3)
[2024-11-20] MEDS: LACTATED RINGER'S 500 ML IV ONE (05:15)
[2024-11-20 06:15] LABS: Hematocrit (blood only) 34.8 % (42.0-52.0); Hemoglobin 11.1 g/dl (14.0-18.0); Mean Corpuscular Hemoglobin 31.3 pg (25.0-34.0); Mean Corpuscular Hgb Conc 31.9 g/dL (32.0-36.0); Mean Platelet Volume 9.8 fL (9.4-12.4); Nucleated RBC # (auto) 0.05 K/uL (0.00-0.12); Nucleated RBC % (auto) 0.5 %; Platelet Count 140 K/uL (130-400); RDW Coefficient of Variation 22.5 % (11.5-14.5); RDW Standard Deviation 79.6 fL (36.4-46.3); Red Blood Count 3.55 M/uL (4.70-6.10); White Blood Count 9.46 K/ul (4.8-10.8)
[2024-11-20] MEDS: CALCIUM GLUCONATE 1,000 MG/60 ML BAG IV SCH (06:26)
[2024-11-20 07:11] LABS: Anisocytosis Present; Basophils # (auto) 0.02 K/uL (0.00-0.20); Basophils % (auto) 0.2 %; Immature Granulocytes # (auto) 0.05 K/uL (0.01-0.20); Immature Granulocytes % (auto) 0.5 %; Lymphocytes % (auto) 6.3 %; Monocytes # (auto) 0.88 K/uL (0.11-0.59); Monocytes % (auto) 9.3 %; Neutrophils # (auto) 7.91 K/uL (1.40-6.50); Neutrophils % (auto) 83.7 %; Tear Drop Cells 2+
--- NOTE | 2024-11-20 08:03 | XRay Report ---
EXAM: XR chest 1V portable CLINICAL HISTORY: Eval tubes/lines/lung beck while intubated TECHNIQUE: An X-ray image of the chest is obtained in AP projection. COMPARISON: 11/19/2024 FINDINGS: ETT seen its tip seen 5 cm above the la. NG tube noted, reaching left infra diaphragmatic, its tip not seen. Pulmonary Parenchyma: Prominent bronchovascular markings. No evidence of consolidation, collapse, or focal opacities. No pulmonary nodules are identified. No evidence of pleural effusion or pleural thickening. Heart and Mediastinum: Heart size and shape are normal. No mediastinal widening or masses. No hilar or mediastinal lymphadenopathy. Bony Thorax: Bony thorax appears intact without fractures or deformities. Soft Tissues: Soft tissues overlying the chest wall are unremarkable. IMPRESSION: 1. ETT seen its tip seen 5 cm above la. 2. NG tube noted, reaching left infra-diaphragmatic. 3. Prominent bronchovascular markings. 4. Regression of blunted left CP angle, otherwise no gross interval changes. Electronically signed by Jered Dinh 11-20-2024 08:03 AM
--- NOTE | 2024-11-20 08:05 | Critical Care Progress Note ---
Date of Service November 20, 2024 Assessment & Plan (1) Respiratory failure requiring intubation: (2) Transaminitis: (3) Alcohol use disorder: (4) Chronic obstructive pulmonary disease: Plan Reason Critically Ill: Patient presents to ICU tachycardic, hypotensive, respiratory acidosis clinically worsening on BiPAP and intubated for impending cardiovascular and respiratory instability/collapse. Neuro - Encephalopathy, ETOH misuse/abuse, sedation for mechanical ventilation CAM ICU: DAREN - Encephalopathy Multifactorial at this time- to include hypercarbia, acidosis, and ETOH withdrawal -No focal deficits at this time and normal reactive pupils -Got a dose of thiamine 500mg IV TSH mildly elevated with normal T4 Alcohol level negative at the time of presentation - Unsure of how much of his symptoms are related to ETOH at this time- Propofol and Fentanyl for sedation - could consider adding PRN Ativan down OGT if needed Cardiac - Shock unspecified, Hx of RBB 2D echo 12/03/2023: EF 65 to 70%, grade 1 diastolic dysfunction, RV normal in size and function, no PFO or intra-atrial shunt. - Patient technically meets sepsis criteria with possible source being pulmonary- Tachycardic, T 38, RR 34- hypotensive with organ dysfunction - - organ dysfunction - ALESSANDRO, LFT - Blood cultures obtained in EMD- NGTD, PCT initially negative- recheck, respiratory biofire negative - Responded well to fluid bolus on arrival - did require short course of Levophed - 1.5 L crystalloid bolus completed - RBB stable no acute changes on ECG on arrival to ICU - ECHO in am Respiratory - presented with dyspnea, required emergent intubation for hypercarbic respiratory failure with hx of COPD CT chest 11/18/2024 personally reviewed: Centrilobular emphysema appreciated bilaterally Dependent atelectasis bilateral, questionable infiltrate right lower lobe Mucus in the right main no significant mediastinal --Acute hypercapnic hypoxic respiratory failure Intubated for respiratory failure --COPD with emphysema Continue with nebulized medication -- Lung Nodule - 6 mm RLL nodule appears stable dating back to imaging on 06/24/2021. Continue with annual LDCT lung cancer screening exams given his smoking history, age, and risks. -- Tobacco use disorder - > [id number] smoking history, currently smoking half a pack a day. Importance of quitting explained to the patient in depth GI - elevated LFTS - Unclear of elevation at this time - possibly alcohol related -Salicylates and Tylenol negative - Continue supportive care - Ammonia within normal limit RENAL/LYTES - -- ALESSANDRO Patient was borderline hypotensive at the time of admission He did get contrast as well for CTA Monitor BUN/creatinine Avoid nephrotoxic medications ENDO - No acute needs at this time --Hypocalcemia Being replaced Follow-up PTH - ICU hyperglycemic protocol HEME - No acute needs ID - Septic Shock Source unclear but likely pulmonary Procalcitonin 0.98 Nasal MRSA negative Respiratory BioFire negative for everything on 11/18/2024 - Blood cultures negative to date -UA clean on this admission, grew staph epi on previous - Rocephin changed to Cefepime, can continue Doxy at this time --Prophylaxis VTE: Heparin GI: Pantoprazole Lines: Peripheral Diet: Tube feeds Plan: In/out: +4.5 L, urine output 220, +6.4 liters since coming to the hospital Creatinine is still worsening. Continue with IV fluids can keep a close eye on urine output Calcium being replaced, follow-up PTH Continue with thiamine Trial of SBT I have personally spent 36 minutes of critical care time in the direct management of this patient. This is a life/limb threatening event. This includes time spent evaluating patient, direct bedside care, chart review, placing orders, interpretation of diagnostic studies, discussion with consultants, patient, as well as other required patient management activities. This time is exclusive of all separately billable procedures, and teaching time and separate from and in addition to any other critical care service time. Admission and Anticipated Discharge Date Admission Date: November 18, 2024 Subjective Patient seen and examined at bedside. No acute distress, no adverse events overnight He was on pressure support at the time of examination. Answering all questions appropriately Denied any headache, no nausea, no vomiting Tmax 37.8 Review of Systems 2 Review of Systems: All systems reviewed & are unremarkable except as noted in Subjective Physical Exam 2 Physical Exam: Constitutional: No acute distress HEENT: EOMI, PERRLA Respiratory system: Decreased air entry bilaterally, no wheeze, no rhonchi, mild crackles bilateral lower lobes CVS: S1-S2 positive, no murmurs or gallops Abdomen: Soft, nontender, nondistended, positive bowel sounds x4, obese Extremities: +2 pulses bilaterally radialis/ dorsalis pedis, no cyanosis, no edema Neuro: RASS -1, following simple commands, breathing over the vent Psych: Unable to assess G/U: Positive [place] Skin: no rashes, warm and dry Lymphatic: no cervical or axillary lymphadenopathy Results & Data Results & Data Vital Signs (Past 12 Hours) Vital Signs Temp Pulse Resp BP Pulse Ox O2 Del Method FiO2 11/20/24 07:20 99 H 17 93 55 11/20/24 06:30 37.3 C 104 H 23 88 L 11/20/24 06:15 37.3 C 99 H 24 93 11/20/24 06:15 106/85 11/20/24 06:00 121/95 11/20/24 06:00 121/95 11/20/24 05:45 130/95 11/20/24 05:45 130/95 11/20/24 05:30 106/79 11/20/24 05:15 101/77 11/20/24 05:15 101/11/20/24 05:03 37.6 C H 101 H 17 91 11/20/24 05:03 60 11/20/24 05:00 37.6 C H 101 H 19 90 11/20/24 05:00 111/11/20/24 05:00 111/11/20/24 05:00 111/77 11/20/24 05:00 111/77 11/20/24 04:45 37.6 C H 105 H 21 90 11/20/24 04:45 108/76 11/20/24 04:45 108/76 11/20/24 04:45 108/76 11/20/24 04:45 108/76 11/20/24 04:45 108/76 11/20/24 04:30 37.6 C H 110 H 22 96 11/20/24 04:30 116/81 11/20/24 04:30 116/81 11/20/24 04:30 116/81 11/20/24 04:17 96 H 23 93 60 11/20/24 04:16 114/11/20/24 04:16 114/81 11/20/24 04:16 114/81 11/20/24 04:16 114/81 11/20/24 04:15 37.6 C H 103 H 15 93 11/20/24 04:12 37.6 C H 102 H 24 92 11/20/24 04:00 121/85 11/20/24 03:48 37.7 C H 100 H 15 93 11/20/24 03:45 108/89 11/20/24 03:45 108/89 11/20/24 03:45 37.7 C H 101 H 17 92 11/20/24 03:39 37.7 C H 101 H 20 92 11/20/24 03:15 37.8 C H 97 H 17 93 11/20/24 03:15 124/89 11/20/24 03:15 124/89 11/20/24 03:15 124/89 11/20/24 03:12 37.8 C H 98 H 16 93 11/20/24 03:00 123/88 11/20/24 02:54 37.8 C H 96 H 17 93 11/20/24 02:30 120/90 11/20/24 02:06 37.8 C H 95 H 16 92 11/20/24 02:00 117/88 11/20/24 02:00 117/88 11/20/24 01:57 37.8 C H 94 H 17 92 11/20/24 01:45 112/88 11/20/24 01:45 37.8 C H 95 H 16 92 11/20/24 01:45 112/88 11/20/24 01:30 37.7 C H 95 H 20 90 11/20/24 01:30 133/85 11/20/24 01:30 133/85 11/20/24 01:22 95 H 11/20/24 01:18 37.7 C H 96 H 21 91 11/20/24 01:15 127/83 11/20/24 01:15 127/83 11/20/24 01:09 37.7 C H 97 H 16 90 11/20/24 01:03 60 11/20/24 01:00 118/87 11/20/24 01:00 94 H 24 94 60 11/20/24 00:58 Mechanical Vent 60 11/20/24 00:45 133/102 H 11/20/24 00:42 37.7 C H 95 H 20 91 11/20/24 00:30 127/89 11/20/24 00:27 37.7 C H 96 H 20 90 11/20/24 00:15 37.7 C H 96 H 20 91 11/20/25 00:15 109/88 11/20/24 00:00 37.6 C H 96 H 24 93 11/20/24 00:00 122/87 11/19/24 23:45 37.6 C H 96 H 18 93 11/19/24 23:45 119/87 11/19/24 23:45 119/87 11/19/24 23:45 119/87 11/19/24 23:42 37.6 C H 96 H 18 94 11/19/24 23:15 131/89 11/19/24 23:15 37.6 C H 96 H 20 96 11/19/24 22:45 123/87 11/19/24 22:45 123/87 11/19/24 22:45 123/87 11/19/24 22:45 37.6 C H 96 H 20 92 11/19/24 22:36 37.6 C H 97 H 22 90 Mechanical Vent 60 11/19/24 22:30 121/95 11/19/24 22:21 37.5 C 100 H 21 11/19/24 22:15 107/93 11/19/24 22:15 37.5 C 100 H 22 11/19/24 22:09 37.5 C 98 H 24 11/19/24 21:54 37.2 C 101 H 22 11/19/24 21:45 115/88 11/19/24 21:42 36.6 C 102 H 21 11/19/24 21:33 33.0 C L 101 H 19 11/19/24 21:31 113/82 11/19/24 21:27 103 H 18 91 60 11/19/24 21:15 37.9 C H 102 H 22 11/19/24 21:03 37.9 C H 102 H 21 11/19/24 21:00 105/82 11/19/24 21:00 105/82 11/19/24 21:00 105/82 11/19/24 20:30 38.0 C H 102 H 13 11/19/24 20:30 107/78 11/19/24 20:30 107/78 11/19/24 20:30 107/78 11/19/24 20:18 38.0 C H 101 H 14 11/19/24 20:15 102/85 11/19/24 20:09 38.0 C H 103 H 11 L 93 Laboratory Results 11/20/24 05:56 11/20/24 04:20 Coding Level of Care Code 15539 CRITICAL CARE 1ST 30-74M Diagnoses Respiratory failure requiring intubation J96.90 Transaminitis R74.01 Alcohol use disorder F10.90 Chronic obstructive pulmonary disease J44.1 COPD type: COPD with acute exacerbation (4) Chronic obstructive pulmonary disease COPD type: COPD with acute exacerbation Qualified Code(s): J44.1 - Chronic obstructive pulmonary disease with (acute) exacerbation
[2024-11-20] MEDS: CALCIUM CHLORIDE 10% 1,000 MG in DEXTROSE 5% 50 ML IV ONE (10:14)
--- NOTE | 2024-11-20 11:50 | Hospitalist Progress Note ---
Date of Service November 20, 2024 Assessment & Plan (1) Acute on chronic anemia: (2) Alcohol use disorder: (3) Obesity (BMI 30.0-34.9): (4) Chronic obstructive pulmonary disease: (5) Hypertension: (6) CAD (coronary artery disease): (7) GERD (gastroesophageal reflux disease): (8) Hepatic steatosis: (9) On home oxygen therapy: Plan Patient is a 59-year-old male with past medical history of COPD, SAROJ, hypertension, alcohol use disorder, coronary artery disease who presented to the hospital with shortness of breath. Acute on chronic hypoxic respiratory failure COPD exacerbation CAP Alcohol use disorder Alcohol withdrawal Patient presented to the hospital with shortness of breath; found to have COPD exacerbation. CTA chest on admission did not show PE; found to have mild reticular and patchy opacity in dependent lung bases. Overnight on November 18, patient became agitated; requiring multiple doses of Ativan for suspected alcohol withdrawal; ABG showed acute hypercapnic respiratory failure. Patient was transferred to ICU and mechanically ventilated Extubated on November 20, 2024 Continue on budesonide, formoterol nebs for 7 days. Continue antibiotics cefepime and doxycycline Continue thiamine Acute kidney injury Creatinine up trended to 2.9; baseline around 0.68-1 Suspect likely secondary to episode of hypotension he presented with Urine output of 445 mL in last 24 hours Continue to monitor urine output; avoid nephrotoxic agent Hx CAD/HLD: Diastolic CHF: Continue, hold statin with transaminitis coreg and lasix on hold Hx SAROJ Continue 3 L oxygen at bedtime Recent GI bleedJanuary 2024 Esophageal ulcer/gastritis Continue on Protonix Full code DVT prophylaxis:heparin Time spent evaluating patient, direct bedside care, chart review, placing orders, interpretation of diagnostic studies, discussion with consultants, patient, and family members, as well as other required patient management activities is 50 minutes Please note the above document was generated using voice recognition software. It may contain grammatical, syntax or spelling errors. Any formal questions or concerns about the content, text or information contained within the body of this dictation should be directly addressed to the provider for clarification Admission and Anticipated Discharge Date Admission Date: November 18, 2024 Subjective Patient extubated in a.m.; is currently on BiPAP. Denies any shortness of breath, chest pain or fever. Hemodynamically stable. No significant events overnight Review of Systems Review of Systems: All systems reviewed & are unremarkable except as noted in Subjective Physical Exam Physical Exam: Constitutional: Awake, in mild respiratory distress. Oriented x 3 Respiratory: Bilateral crackles present. Decreased breath sound at bases Cardiovascular: RRR, no murmur, no edema Vessels: no JVD or carotid bruit Chest: normal inspection of chest Abdomen: Distended, nontender. Bowel sounds present Musculoskeletal: no cyanosis or clubbing, extremities motor strength 5/5 Skin: no rashes, warm and dry normal turgor Neurologic: PERRLA, moving all extremities. Results & Data Results & Data Vital Signs (Past 12 Hours) Vital Signs Temp Pulse Resp BP Pulse Ox O2 Del Method O2 Flow Rate 11/20/24 11:00 133/83 11/20/24 10:57 37.0 C 22 91 Oxymask 6 11/20/24 10:06 36.9 C 98 H 14 95 11/20/24 10:00 102/87 11/20/24 09:30 BiPAP 11/20/24 09:06 37.4 C 106 H 24 92 11/20/24 09:00 138/81 11/20/24 08:57 37.4 C 111 H 20 91 11/20/24 08:26 114 H 22 93 11/20/24 08:15 BiPAP 11/20/24 08:00 37.3 C 112 H 24 92 CPAP 11/20/24 08:00 92/78 L 11/20/24 07:20 99 H 17 93 11/20/24 07:00 117/92 11/20/24 06:54 37.3 C 98 H 19 95 Mechanical Vent 11/20/24 06:30 37.3 C 104 H 23 88 L 11/20/24 06:15 37.3 C 99 H 24 93 11/20/24 06:15 106/85 11/20/24 06:00 121/95 11/20/24 06:00 121/95 11/20/24 05:45 130/95 11/20/24 05:45 130/95 11/20/24 05:30 106/79 11/20/24 05:15 101/77 11/20/24 05:15 101/77 11/20/24 05:03 37.6 C H 101 H 17 91 11/20/24 05:03 11/20/24 05:00 37.6 C H 101 H 19 90 11/20/24 05:00 111/77 11/20/24 05:00 111/77 11/20/24 05:00 111/77 11/20/24 05:00 111/77 11/20/24 04:45 37.6 C H 105 H 21 90 11/20/24 04:45 108/76 11/20/24 04:45 108/76 11/20/24 04:45 108/76 11/20/24 04:45 108/76 11/20/24 04:45 108/76 11/20/24 04:30 37.6 C H 110 H 22 96 11/20/24 04:30 116/81 11/20/24 04:30 116/81 11/20/24 04:30 116/81 11/20/24 04:17 96 H 23 93 11/20/24 04:16 114/81 11/20/24 04:16 114/81 11/20/24 04:16 114/81 11/20/24 04:16 114/81 11/20/24 04:15 37.6 C H 103 H 15 93 11/20/24 04:12 37.6 C H 102 H 24 92 11/20/24 04:00 121/85 11/20/24 03:48 37.7 C H 100 H 15 93 11/20/24 03:45 108/89 11/20/24 03:45 108/89 11/20/24 03:45 37.7 C H 101 H 17 92 11/20/24 03:39 37.7 C H 101 H 20 92 11/20/24 03:15 37.8 C H 97 H 17 93 11/20/24 03:15 124/89 11/20/24 03:15 124/89 11/20/24 03:15 124/89 11/20/24 03:12 37.8 C H 98 H 16 93 11/20/24 03:00 123/88 11/20/24 02:54 37.8 C H 96 H 17 93 11/20/24 02:30 120/90 11/20/24 02:06 37.8 C H 95 H 16 92 11/20/24 02:00 117/88 11/20/24 02:00 117/88 11/20/24 01:57 37.8 C H 94 H 17 92 11/20/24 01:45 112/88 11/20/24 01:45 37.8 C H 95 H 16 92 11/20/24 01:45 112/88 11/20/24 01:30 37.7 C H 95 H 20 90 11/20/24 01:30 133/85 11/20/24 01:30 133/85 11/20/24 01:22 95 H 11/20/24 01:18 37.7 C H 96 H 21 91 11/20/24 01:15 127/83 11/20/24 01:15 127/83 11/20/24 01:09 37.7 C H 97 H 16 90 11/20/24 01:03 11/20/24 01:00 118/87 11/20/24 01:00 94 H 24 94 11/20/24 00:58 Mechanical Vent 11/20/24 00:45 133/102 H 11/20/24 00:42 37.7 C H 95 H 20 91 11/20/24 00:30 127/89 11/20/24 00:27 37.7 C H 96 H 20 90 11/20/24 00:15 37.7 C H 96 H 20 91 11/20/24 00:15 109/88 11/20/24 00:00 37.6 C H 96 H 24 93 11/20/24 00:00 122/87 FiO2 11/20/24 11:00 11/20/24 10:57 11/20/24 10:06 11/20/24 10:00 11/20/24 09:30 50 11/20/24 09:06 11/20/24 09:00 11/20/24 08:57 11/20/24 08:26 50 11/20/24 08:15 50 11/20/24 08:00 55 11/20/24 08:00 11/20/24 07:20 55 11/20/24 07:00 11/20/24 06:54 55 11/20/24 06:30 11/20/24 06:15 11/20/24 06:15 11/20/24 06:00 11/20/24 06:00 11/20/24 05:45 11/20/24 05:45 11/20/24 05:30 11/20/24 05:15 11/20/24 05:15 11/20/24 05:03 11/20/24 05:03 60 11/20/24 05:00 11/20/24 05:00 11/20/24 05:00 11/20/24 05:00 11/20/24 05:00 11/20/24 04:45 11/20/24 04:45 11/20/24 04:45 11/20/24 04:45 11/20/24 04:45 11/20/24 04:45 11/20/24 04:30 11/20/24 04:30 11/20/24 04:30 11/20/24 04:30 11/20/24 04:17 60 11/20/24 04:16 11/20/24 04:16 11/20/24 04:16 11/20/24 04:16 11/20/24 04:15 11/20/24 04:12 11/20/24 04:00 11/20/24 03:48 11/20/24 03:45 11/20/24 03:45 11/20/24 03:45 11/20/24 03:39 11/20/24 03:15 11/20/24 03:15 11/20/24 03:15 11/20/24 03:15 11/20/24 03:12 11/20/24 03:00 11/20/24 02:54 11/20/24 02:30 11/20/24 02:06 11/20/24 02:00 11/20/24 02:00 11/20/24 01:57 11/20/24 01:45 11/20/24 01:45 11/20/24 01:45 11/20/24 01:30 11/20/24 01:30 11/20/24 01:30 11/20/24 01:22 11/20/24 01:18 11/20/24 01:15 11/20/24 01:15 11/20/24 01:09 11/20/24 01:03 60 11/20/24 01:00 11/20/24 01:00 60 11/20/24 00:58 60 11/20/24 00:45 11/20/24 00:42 11/20/24 00:30 11/20/24 00:27 11/20/24 00:15 11/20/24 00:15 11/20/24 00:00 11/20/24 00:00 (4) Chronic obstructive pulmonary disease COPD type: COPD with acute exacerbation Qualified Code(s): J44.1 - Chronic obstructive pulmonary disease with (acute) exacerbation
[2024-11-20] MEDS: LORazepam 2 MG/1 ML VIAL IV PRN (12:48)
[2024-11-20] MEDS ORDERED: GLUCAGON FOR INJ 1 MG VIAL SQ PRN (16:15)
[2024-11-20] MEDS ORDERED: GLUCOSE 10 TAB/TUBE PO PRN (16:15)
[2024-11-20] MEDS ORDERED: DEXTROSE 50% 50 ML SYRINGE IV PRN (16:15)
[2024-11-20] MEDS ORDERED: CARBOHYDRATES FOR HYPOGLYCEMIA PO PRN (16:15)
[2024-11-20] MEDS ORDERED: GLUCOSE 40% GEL 15 GM TUBE PO PRN (16:15)
[2024-11-20] MEDS: INSULIN ASPART PER UNIT CHARGE SC SCH (16:50)
[2024-11-20] MEDS ORDERED: GABAPENTIN 600 MG TAB PO SCH (17:30)
[2024-11-20] MEDS: CEFEPIME 2000MG 2,000 MG/20 ML SYR IV SCH (21:13)
[2024-11-21] MEDS: COUGH DROP (SUGAR FREE) LOZ 24 LOZ/1 BOX BUCCAL PRN (02:06)
[2024-11-21] MEDS: PLASMA-LYTE A 1,000 ML IV ONE (04:24)
[2024-11-21 05:09] LABS: Hematocrit (blood only) 28.4 % (42.0-52.0); Hemoglobin 9.1 g/dl (14.0-18.0); Mean Corpuscular Hemoglobin 31.7 pg (25.0-34.0); Mean Platelet Volume 11.5 fL (9.4-12.4); Nucleated RBC # (auto) 0.03 K/uL (0.00-0.12); Nucleated RBC % (auto) 0.3 %; Platelet Count 132 K/uL (130-400); Red Blood Count 2.87 M/uL (4.70-6.10); White Blood Count 8.96 K/ul (4.8-10.8)
[2024-11-21 05:53] LABS: Albumin Level 2.7 gm/dl (3.4-5.0); BUN Creatinine Ratio 14.5 (10-20); Bilirubin,Total 1.6 mg/dl (0.2-1.0); Calcium 6.4 mg/dl (8.6-10.3); Creatinine Clr Calc Pharmacy 50.3 ml/min; Globulin 2.6 gm/dl (2.5-4.0); Magnesium 2.1 mg/dl (1.7-2.4); Potassium 3.3 mmol/L (3.5-5.1); Total Protein 5.3 gm/dl (6.0-8.3)
[2024-11-21 06:20] LABS: Anisocytosis Present; Basophils # (auto) 0.01 K/uL (0.00-0.20); Basophils % (auto) 0.1 %; Dohle Bodies 1+; Eosinophils # (auto) 0.06 K/uL (0.00-0.50); Eosinophils % (auto) 0.7 %; Immature Granulocytes # (auto) 0.12 K/uL (0.01-0.20); Immature Granulocytes % (auto) 1.3 %; Lymphocytes # (auto) 0.67 K/uL (1.20-3.40); Lymphocytes % (auto) 7.5 %; Monocytes # (auto) 0.76 K/uL (0.11-0.59); Monocytes % (auto) 8.5 %; Neutrophils # (auto) 7.34 K/uL (1.40-6.50); Neutrophils % (auto) 81.9 %; Polychromasia 1+; Target Cells 1+; Tear Drop Cells 1+; Toxic Vacuolation 1+
[2024-11-21] MEDS: THIAMINE HCL 100 MG in SYRINGE 9 ML IV SCH (07:54)
--- NOTE | 2024-11-21 07:55 | Critical Care Progress Note ---
Date of Service November 21, 2024 Assessment & Plan (1) Respiratory failure requiring intubation: (2) Transaminitis: (3) Alcohol use disorder: (4) Chronic obstructive pulmonary disease: Plan Reason Critically Ill: Patient presents to ICU tachycardic, hypotensive, respiratory acidosis clinically worsening on BiPAP and intubated for impending cardiovascular and respiratory instability/collapse. He is now liberated from mechanical ventilator and hemodynamically stable. Neuro - Encephalopathy, resolved. Continue thiamine and folate. Cardiac - Shock unspecified, Hx of RBB. Resolved. Respiratory - presented with dyspnea, required emergent intubation for hypercarbic respiratory failure with hx of COPD. Follows [facility] pulmonology. No PFTs available. Not bronchospastic currently. No indication for steroids. Continue budesonide and Perforomist and can transition to Trelegy or Breztri as outpatient on discharge. Continued follow-up for pulmonary nodule in outpatient setting. Smoking cessation recommended. Start incentive spirometry. Recommend CPAP or oxygen at night while sleeping. GI -AST increased with normal ALT and elevated alk phos. Could be related to hepatic steatohepatitis. Trend clinically. RENAL/LYTES -acute renal failure: Significantly improved today. Acid-base status and electrolytes acceptable as well as volume status. Continue to follow. Calcium will need to be repleted. Patient's PTH is significantly elevated, unclear etiology for profound hypocalcemia. Will need PTH recheck in the outpatient setting ENDO - No acute needs at this time HEME -mild anemia. No evidence of acute blood loss. No indication for transfusion. Continue to trend ID -possible pneumonia: Day #4 cefepime and doxycycline. Would complete 5 days. White count normal normal. Procalcitonin negative and leukocytosis resolved. --Prophylaxis VTE: Heparin GI: Pantoprazole Lines: Peripheral Patient's critical care issues have resolved. He is stable to transfer out of the ICU. Critical care services will sign off. Feel free to contact us with questions or concerns Admission and Anticipated Discharge Date Admission Date: November 18, 2024 Subjective Patient seen and examined. EMR reviewed. Discussed with off going critical care RENETTA and off going plant biology professor. Reviewed with bedside critical care nurse and on multidisciplinary rounds. Patient is currently awake alert and conversant. He offers no complaints this morning. Denies any chest pain or palpitations. No abdominal pain. No nausea or vomiting. He is tolerating a liquid diet. Review of Systems Review of Systems: All systems reviewed & are unremarkable except as noted in Subjective Physical Exam Constitutional: WD/WN, vitals as above Neck: trachea midline, no thyromegaly Respiratory: normal respiratory effort, lungs clear to auscultation Cardiovascular: RRR, no murmur, no edema Gastrointestinal (Abdomen): normal bowel sounds, soft, nontender, no hepatosplenomegaly Musculoskeletal: Extremities: extremities normal to inspection Skin: no rashes, warm and dry Neurologic: Nonfocal exam Lymphatic: no cervical lymphadenopathy Results & Data Results & Data Vital Signs (Past 12 Hours) Vital Signs Temp Pulse Pulse Resp BP Pulse Ox O2 Del Method 11/21/24 07:33 71 20 92 Nasal Cannula 11/21/24 05:00 134/81 11/21/24 05:00 134/81 11/21/24 04:42 37.5 C 101 H 19 95 11/21/24 04:33 37.5 C 100 H 24 95 11/21/24 04:06 37.5 C 95 H 19 95 11/21/24 04:00 143/81 H 11/21/24 04:00 143/81 H 11/21/24 03:52 100 H 16 97 11/21/24 03:33 37.6 C H 104 H 24 87 L 11/21/24 03:03 37.6 C H 93 H 18 95 11/21/24 03:00 143/83 H 11/21/24 03:00 143/83 H 11/21/24 02:51 37.6 C H 91 H 18 96 11/21/24 02:06 37.3 C 22 82 L 11/21/24 02:00 142/80 H 11/21/24 01:48 37.5 C 92 H 19 94 11/21/24 01:30 37.6 C H 99 H 24 95 11/21/24 01:00 37.7 C H 91 H 18 95 11/21/24 01:00 125/80 11/21/24 00:45 37.7 C H 90 16 93 11/21/24 00:33 37.7 C H 102 H 21 92 11/21/24 00:15 37.7 C H 92 H 19 94 11/21/24 00:00 132/80 11/21/24 00:00 37.7 C H 93 H 17 94 11/20/24 23:51 95 H 03/02/25 23:40 97 H 23 98 11/20/24 23:36 37.7 C H 97 H 19 93 11/20/24 23:06 37.7 C H 96 H 21 98 11/20/24 23:00 125/97 11/20/24 23:00 125/97 11/20/24 22:57 37.7 C H 96 H 21 97 11/20/24 22:30 37.7 C H 98 H 22 99 11/20/24 22:03 37.6 C H 96 H 19 100 11/20/24 22:00 128/77 11/20/24 21:45 37.6 C H 96 H 23 93 11/20/24 21:39 Nasal Cannula 11/20/24 21:06 37.5 C 20 91 11/20/24 20:36 37.4 C 98 H 24 93 11/20/24 20:21 37.4 C 95 H 25 H 95 11/20/24 20:07 88 19 94 Nasal Cannula 11/20/24 20:01 147/85 H 11/20/24 20:01 147/85 H O2 Flow Rate FiO2 11/21/24 07:33 3 11/21/24 05:00 11/21/24 05:00 11/21/24 04:42 11/21/24 04:33 11/21/24 04:06 11/21/24 04:00 11/21/24 04:00 11/21/24 03:52 30 11/21/24 03:33 11/21/24 03:03 11/21/24 03:00 11/21/24 03:00 11/21/24 02:51 11/21/24 02:06 11/21/24 02:00 11/21/24 01:48 11/21/24 01:30 11/21/24 01:00 11/21/24 01:00 11/21/24 00:45 11/21/24 00:33 11/21/24 00:15 11/21/24 00:00 11/21/24 00:00 11/20/24 23:51 11/20/24 23:40 30 11/20/24 23:36 11/20/24 23:06 11/20/24 23:00 11/20/24 23:00 11/20/24 22:57 11/20/24 22:30 11/20/24 22:03 11/20/24 22:00 11/20/24 21:45 11/20/24 21:39 3 11/20/24 21:06 11/20/24 20:36 11/20/24 20:21 11/20/24 20:07 3 11/20/24 20:01 11/20/24 20:01 Critical Care Results & Data Vital Signs (Past 12 Hours) Vital Signs Temp Pulse Pulse Resp BP Pulse Ox O2 Del Method 11/21/24 07:33 71 20 92 Nasal Cannula 11/21/24 05:00 134/81 11/21/24 05:00 134/81 11/21/24 04:42 37.5 C 101 H 19 95 11/21/24 04:33 37.5 C 100 H 24 95 11/21/24 04:06 37.5 C 95 H 19 95 11/21/24 04:00 143/81 H 11/21/24 04:00 143/81 H 11/21/24 03:52 100 H 16 97 11/21/24 03:33 37.6 C H 104 H 24 87 L 11/21/24 03:03 37.6 C H 93 H 18 95 11/21/24 03:00 143/83 H 11/21/24 03:00 143/83 H 11/21/24 02:51 37.6 C H 91 H 18 96 11/21/24 02:06 37.3 C 22 82 L 11/21/24 02:00 142/80 H 11/21/24 01:48 37.5 C 92 H 19 94 11/21/24 01:30 37.6 C H 99 H 24 95 11/21/24 01:00 37.7 C H 91 H 18 95 11/21/24 01:00 125/80 11/21/24 00:45 37.7 C H 90 16 93 11/21/24 00:33 37.7 C H 102 H 21 92 11/21/24 00:15 37.7 C H 92 H 19 94 11/21/24 00:00 132/80 11/21/24 00:00 37.7 C H 93 H 17 94 11/20/24 23:51 95 H 11/20/24 23:40 97 H 23 98 11/20/24 23:36 37.7 C H 97 H 19 93 11/20/24 23:06 37.7 C H 96 H 21 98 11/20/24 23:00 125/97 11/20/24 23:00 125/97 11/20/24 22:57 37.7 C H 96 H 21 97 11/20/24 22:30 37.7 C H 98 H 22 99 11/20/24 22:03 37.6 C H 96 H 19 100 11/20/24 22:00 128/77 11/20/24 21:45 37.6 C H 96 H 23 93 11/20/24 21:39 Nasal Cannula 11/20/24 21:06 37.5 C 20 91 11/20/24 20:36 37.4 C 98 H 24 93 11/20/24 20:21 37.4 C 95 H 25 H 95 11/20/24 20:07 88 19 94 Nasal Cannula 11/20/24 20:01 147/85 H 11/20/24 20:01 147/85 H O2 Flow Rate FiO2 11/21/24 07:33 3 11/21/24 05:00 11/21/24 05:00 11/21/24 04:42 11/21/24 04:33 11/21/24 04:06 11/21/24 04:00 11/21/24 04:00 11/21/24 03:52 30 11/21/24 03:33 11/21/24 03:03 11/21/24 03:00 11/21/24 03:00 11/21/24 02:51 11/21/24 02:06 11/21/24 02:00 11/21/24 01:48 11/21/24 01:30 11/21/24 01:00 11/21/24 01:00 11/21/24 00:45 11/21/24 00:33 11/21/24 00:15 11/21/24 00:00 11/21/24 00:00 11/20/24 23:51 11/20/24 23:40 30 11/20/24 23:36 11/20/24 23:06 11/20/24 23:00 11/20/24 23:00 11/20/24 22:57 11/20/24 22:30 11/20/24 22:03 11/20/24 22:00 11/20/24 21:45 11/20/24 21:39 3 11/20/24 21:06 11/20/24 20:36 11/20/24 20:21 11/20/24 20:07 3 11/20/24 20:01 11/20/24 20:01 Lab & Micro Results (Past 24 Hours) RBC 2.87 M/uL (4.70-6.10) L 11/21/24 WBC 8.96 K/ul (4.8-10.8) 11/21/24 Hgb 9.1 g/dl (14.0-18.0) L 11/21/24 Hct 28.4 % (42.0-52.0) L 11/21/24 MCV 99.0 fL (80.0-100.0) 11/21/24 MCH 31.7 pg (25.0-34.0) 11/21/24 MCHC 32.0 g/dL (32.0-36.0) 11/21/24 RDW Standard Deviation 79.0 fL (36.4-46.3) H 11/21/24 RDW Coefficient of Variation 22.0 % (11.5-14.5) H 11/21/24 Plt Count 132 K/uL (130-400) 11/21/24 MPV 11.5 fL (9.4-12.4) 11/21/24 Nucleated Red Blood Cells % (auto) 0.3 % 11/21 Nucleated RBC Absolute Count (auto) 0.03 K/uL (0.00-0.12) 0 11/21/24 Neutrophils (%) (Auto) 81.9 % 11/21/24 Lymphocytes (%) (Auto) 7.5 % 11/21/24 Monocytes # (Auto) 0.76 K/uL (0.11-0.59) H 11/21/24 Eosinophils # (Auto) 0.06 K/uL (0.00-0.50) 11/21/24 Immature Granulocyte % (Auto) 1.3 % 11/21/24 Neutrophils # (Auto) 7.34 K/uL (1.40-6.50) H 11/21/24 Lymphocytes # (Auto) 0.67 K/uL (1.20-3.40) L 11/21/24 Monocytes # (Auto) 0.76 K/uL (0.11-0.59) H 11/21/24 Eosinophils # (Auto) 0.06 K/uL (0.00-0.50) 11/21/24 Basophils # (Auto) 0.01 K/uL (0.00-0.20) 11/21/24 Immature Granulocyte # (Auto) 0.12 K/uL (0.01-0.20) 5 Polychromasia 1+ 11/21/24 Anisocytosis Present 11/21/24 Target Cells 1+ 11/21/24 Tear Drop Cells 1+ 11/21/24 Toxic Vacuolation 1+ 11/21/24 Dohle Bodies 1+ 11/21/24 Na 132 mmol/L (136-145) L 11/21/24 K 3.3 mmol/L (3.5-5.1) L 11/21/24 Cl 102 mmol/L (98-107) 11/21/24 CO2 22 mmol/L (21-32) 11/21/24 Anion Gap 8 (3-11) 11/21/24 BUN 29 mg/dl (6-23) H 11/21/24 Creatinine 2.00 mg/dl (0.6-1.4) H 11/21/24 BUN/Creatinine Ratio 14.5 (10-20) 11/21/24 Glu 91 mg/dl (70-99(Fasting)) 11/21/24 Ca 6.4 mg/dl (8.6-10.3) L 11/21/24 Total Bilirubin 1.6 mg/dl (0.2-1.0) H 11/21/24 AST 75 U/L (13-39) H 11/21/24 ALT 31 U/L (7-52) 11/21/24 Alkaline Phosphatase 107 U/L (34-104) H 11/21/24 TP 5.3 gm/dl (6.0-8.3) L 11/21/24 Albumin 2.7 gm/dl (3.4-5.0) L 11/21/24 Globulin 2.6 gm/dl (2.5-4.0) 11/21/24 Albumin/Globulin Ratio 1.0 (0.9-2) 11/21/24 Mg 2.1 mg/dl (1.7-2.4) 11/21/24 04:34 Calcium Level 6.4 mg/dl (8.6-10.3) L 11/21/24 04:34 Microbiology 11/18/24 14:46 Aerobic Blood Culture - Preliminary Blood No growth in Aerobic bottle after 48 hours. Anaerobic Blood Culture - Preliminary No growth in Anaerobic bottle after 48 hours. 11/18/24 14:46 Aerobic Blood Culture - Preliminary Blood No growth in Aerobic bottle after 48 hours. Anaerobic Blood Culture - Preliminary No growth in Anaerobic bottle after 48 hours. Diagnostic Findings (Past 24 Hours) Chest X-Ray 11/20/24 06:00 EXAM: XR chest 1V portable CLINICAL HISTORY: Eval tubes/lines/lung beck while intubated TECHNIQUE: An X-ray image of the chest is obtained in AP projection. COMPARISON: 11/19/2024 FINDINGS: ETT seen its tip seen 5 cm above the la. NG tube noted, reaching left infra diaphragmatic, its tip not seen. Pulmonary Parenchyma: Prominent bronchovascular markings. No evidence of consolidation, collapse, or focal opacities. No pulmonary nodules are identified. No evidence of pleural effusion or pleural thickening. Heart and Mediastinum: Heart size and shape are normal. No mediastinal widening or masses. No hilar or mediastinal lymphadenopathy. Bony Thorax: Bony thorax appears intact without fractures or deformities. Soft Tissues: Soft tissues overlying the chest wall are unremarkable. IMPRESSION: 1. ETT seen its tip seen 5 cm above la. 2. NG tube noted, reaching left infra-diaphragmatic. 3. Prominent bronchovascular markings. 4. Regression of blunted left CP angle, otherwise no gross interval changes. Electronically signed by Jered Dinh 11-20-2024 08:03 AM I & O Totals 24 Hours 11/20/24 11/21/24 11/22/24 06:59 06:59 06:59 Intake Total 4800.631 / 4860.631 4456.334 / 4456.334 Output Total 220 / 220 1225 / 1225 Balance 4580.631 / 4640.631 3231.334 / 3231.334 Cumulative 11/18/24 13:39 thru 11/21/24 05:37 Intake Total 07078.840 Output Total 1830 Balance 9589.840 RT Ventilator Mngmt (Last Documented) Ventilator Ordered Settings Ventilator Support Mode CPAP 11/20/24 07:20 Respiratory Rate 20 11/21/24 07:33 Ventilator Tidal Volume 500 11/20/24 05:03 Setting Minute Ventilation 13.2 11/20/24 07:20 Ventilator Positive Pressure 5 11/20/24 07:20 Support Setting Positive End Expiratory 5 11/20/24 07:20 Pressure Fraction of Inspired Oxygen 30 11/21/24 03:52 Machine Comment placed on PS and weaned to 55% at 11/20/24 07:20 this time Ventilator - PT Measurements Respiratory Rate 20 Exhaled Tidal Volume 822 Minute Ventilation 13.2 Peak Inspiratory Airway 11 Pressure Plateau Pressure 16 Respiratory Cycle Inspiratory: 1:3.4 Expiratory Ratio Inspiratory Phase Time 1.37 End-Tidal CO2 26 Static Lung Compliance 44.64 Dynamic Lung Compliance 137.00 Normal Static Lung Compliance 50.00 Patient Measurements Comment patient placed back on assist control for the night. Coding Level of Care Code 84081 SUB INP/OBS CARE 3/50MIN Diagnoses Respiratory failure requiring intubation J96.90 Transaminitis R74.01 Alcohol use disorder F10.90 Chronic obstructive pulmonary disease J44.1 COPD type: COPD with acute exacerbation (4) Chronic obstructive pulmonary disease COPD type: COPD with acute exacerbation Qualified Code(s): J44.1 - Chronic obstructive pulmonary disease with (acute) exacerbation
[2024-11-21] MEDS: CALCIUM CARBONATE 500 MG CHEWABLE TAB PO SCH (09:03)
[2024-11-21] MEDS: CALCIUM GLUCONATE 1,000 MG/60 ML BAG IV SCH (09:03)
[2024-11-21] MEDS: traMADol HCL 50 MG TABLET PO PRN (13:23)
--- NOTE | 2024-11-21 13:27 | Electrocardiogram Report ---
Test Reason : Blood Pressure : */* mmHG Vent. Rate : 112 BPM Atrial Rate : * BPM P-R Int : * ms QRS Dur : 136 ms QT Int : 378 ms P-R-T Axes : * -56 3 degrees QTcB Int : 515 ms Sinus tachycardia Right bundle branch block Left anterior fascicular block Bifascicular block Abnormal ECG When compared with ECG of 17-Oct-2024 21:56, HR has increased Left anterior fascicular block is now present Confirmed by Alton Price ([id number]) on 11/21/2024 1:27:05 PM Referred By: REFERRED SELF Confirmed By: Alton Price
--- NOTE | 2024-11-21 13:38 | Electrocardiogram Report ---
Test Reason : Blood Pressure : */* mmHG Vent. Rate : 142 BPM Atrial Rate : 142 BPM P-R Int : 98 ms QRS Dur : 122 ms QT Int : 338 ms P-R-T Axes : -13 -62 7 degrees QTcB Int : 519 ms Sinus tachycardia Right bundle branch block Left anterior fascicular block Bifascicular block Abnormal ECG When compared with ECG of 18-Nov-2024 14:08, (unconfirmed) HR has increased Confirmed by Alton Price ([id number]) on 11/21/2024 1:38:22 PM Referred By: REFERRED SELF Confirmed By: Alton Price
--- NOTE | 2024-11-21 13:48 | Electrocardiogram Report ---
Test Reason : Blood Pressure : */* mmHG Vent. Rate : 109 BPM Atrial Rate : 109 BPM P-R Int : 168 ms QRS Dur : 120 ms QT Int : 380 ms P-R-T Axes : 24 -61 9 degrees QTcB Int : 511 ms Sinus tachycardia Right bundle branch block Left anterior fascicular block Bifascicular block Abnormal ECG When compared with ECG of 18-Nov-2024 22:17, (unconfirmed) HR has decreased ID interval has increased ST no longer depressed in Anterior leads Confirmed by Alton Price ([id number]) on 11/21/2024 1:48:11 PM Referred By: REFERRED SELF Confirmed By: Alton Price
--- NOTE | 2024-11-21 13:59 | Hospitalist Progress Note ---
Date of Service November 21, 2024 Assessment & Plan (1) Acute on chronic anemia: (2) Alcohol use disorder: (3) Obesity (BMI 30.0-34.9): (4) Chronic obstructive pulmonary disease: (5) Hypertension: (6) CAD (coronary artery disease): (7) GERD (gastroesophageal reflux disease): (8) Hepatic steatosis: (9) On home oxygen therapy: Plan Patient is a 59-year-old male with past medical history of COPD, SAROJ, hypertension, alcohol use disorder, coronary artery disease who presented to the hospital with shortness of breath. Acute on chronic hypoxic respiratory failure COPD exacerbation CAP Alcohol use disorder Alcohol withdrawal Patient presented to the hospital with shortness of breath; found to have COPD exacerbation. CTA chest on admission did not show PE; found to have mild reticular and patchy opacity in dependent lung bases. Overnight on November 18, patient became agitated; requiring multiple doses of Ativan for suspected alcohol withdrawal; ABG showed acute hypercapnic respiratory failure. Patient was transferred to ICU and mechanically ventilated Extubated on November 20, 2024 Transfer out of ICU in November 21, 2024 Continue on budesonide, formoterol nebs. Continue antibiotics cefepime and doxycycline for 7 days. Continue thiamine Acute kidney injury Creatinine up trended to 2.9; baseline around 0.68-1 Suspect likely secondary to episode of hypotension he presented with Creatinine downtrending Continue on Lasix Hypocalcemiacorrected calcium of 7.4; PTH elevated. Will obtain vitamin D level. Continue supplement. Hx CAD/HLD: Diastolic CHF: Continue statin coreg and lasix resumed Hx SAROJ Continue 3 L oxygen at bedtime Recent GI bleedJanuary 2024 Esophageal ulcer/gastritis Continue on Protonix Full code DVT prophylaxis:heparin DispositionPT OT ordered; may need short-term rehab. Time spent evaluating patient, direct bedside care, chart review, placing or ders, interpretation of diagnostic studies, discussion with consultants, patient, and family members, as well as other required patient management activities is 50 minutes Please note the above document was generated using voice recognition software. It may contain grammatical, syntax or spelling errors. Any formal questions or concerns about the content, text or information contained within the body of this dictation should be directly addressed to the provider for clarification Admission and Anticipated Discharge Date Admission Date: November 18, 2024 Subjective Patient seen and examined at bedside. He is sitting up on the chair; not in distress Vital signs are stable and urine output is reassuring. Review of Systems Review of Systems: All systems reviewed & are unremarkable except as noted in Subjective Physical Exam Physical Exam: Constitutional: Awake, in mild respiratory distress. Oriented x 3 Respiratory: Bilateral crackles present. Decreased breath sound at bases Cardiovascular: RRR, no murmur, no edema Vessels: no JVD or carotid bruit Chest: normal inspection of chest. Bilateral basal crackles present Abdomen: Distended, nontender. Bowel sounds present Musculoskeletal: no cyanosis or clubbing, extremities motor strength 5/5 Skin: no rashes, warm and dry normal turgor Neurologic: PERRLA, moving all extremities. Results & Data Results & Data Vital Signs (Past 12 Hours) Vital Signs Temp Pulse Pulse Resp BP BP Pulse Ox 11/21/24 12:36 36.7 C 96 H 20 163/86 H 92 11/21/24 09:09 107 H 25 H 94 11/21/24 09:00 138/81 11/21/24 08:06 35.7 C L 102 H 28 H 96 11/21/24 08:00 144/81 H 11/21/24 08:00 144/81 H 11/21/24 08:00 96 H 11/21/24 08:00 11/21/24 07:57 36.0 C L 103 H 23 87 L 11/21/24 07:33 71 20 92 11/21/24 07:15 37.1 C 95 H 21 99 11/21/24 07:00 149/84 H 11/21/24 07:00 149/84 H 11/21/24 05:00 134/81 11/21/24 05:00 134/81 11/21/24 04:42 37.5 C 101 H 19 95 11/21/24 04:33 37.5 C 100 H 24 95 11/21/24 04:06 37.5 C 95 H 19 95 11/21/24 04:00 143/81 H 11/21/24 04:00 143/81 H 11/21/24 03:52 100 H 16 97 11/21/24 03:33 37.6 C H 104 H 24 87 L 11/21/24 03:03 37.6 C H 93 H 18 95 11/21/24 03:00 143/83 H 11/21/24 03:00 143/83 H 11/21/24 02:51 37.6 C H 91 H 18 96 11/21/24 02:06 37.3 C 22 82 L 11/21/24 02:00 142/80 H O2 Del Method O2 Flow Rate FiO2 11/21/24 12:36 Nasal Cannula 2 11/21/24 09:09 11/21/24 09:00 11/21/24 08:06 Nasal Cannula 3 11/21/24 08:00 11/21/24 08:00 11/21/24 08:00 11/21/24 08:00 Nasal Cannula 3 11/21/24 07:57 11/21/24 07:33 Nasal Cannula 3 11/21/24 07:15 11/21/24 07:00 11/21/24 07:00 11/21/24 05:00 11/21/24 05:00 11/21/24 04:42 11/21/24 04:33 11/21/24 04:06 11/21/24 04:00 11/21/24 04:00 11/21/24 03:52 30 11/21/24 03:33 11/21/24 03:03 11/21/24 03:00 11/21/24 03:00 11/21/24 02:51 11/21/24 02:06 11/21/24 02:00 (4) Chronic obstructive pulmonary disease COPD type: COPD with acute exacerbation Qualified Code(s): J44.1 - Chronic obstructive pulmonary disease with (acute) exacerbation
[2024-11-21] MEDS: FUROSEMIDE 20 MG TAB PO SCH (14:27)
[2024-11-21] MEDS: LORazepam 2 MG/1 ML VIAL IV PRN (19:58)
[2024-11-21] MEDS: DOXYCYCLINE HYCLATE 100 MG CAP PO SCH (20:07)
[2024-11-22 04:28] LABS: Mean Corpuscular Hemoglobin 32.3 pg (25.0-34.0); Mean Corpuscular Hgb Conc 32.3 g/dL (32.0-36.0); Mean Platelet Volume 10.8 fL (9.4-12.4); Nucleated RBC # (auto) 0.03 K/uL (0.00-0.12); Nucleated RBC % (auto) 0.4 %; Platelet Count 125 K/uL (130-400); RDW Coefficient of Variation 21.6 % (11.5-14.5); RDW Standard Deviation 78.3 fL (36.4-46.3); White Blood Count 8.35 K/ul (4.8-10.8)
[2024-11-22 04:44] LABS: Albumin Globulin Ratio 0.9 (0.9-2); Albumin Level 2.7 gm/dl (3.4-5.0); BUN Creatinine Ratio 18.9 (10-20); Bilirubin,Total 1.8 mg/dl (0.2-1.0); Calcium 7.3 mg/dl (8.6-10.3); Creatinine Clr Calc Pharmacy 79.1 ml/min; Total Protein 5.7 gm/dl (6.0-8.3)
[2024-11-22 05:24] LABS: Anisocytosis Present; Basophils # (auto) 0.01 K/uL (0.00-0.20); Basophils % (auto) 0.1 %; Eosinophils # (auto) 0.03 K/uL (0.00-0.50); Eosinophils % (auto) 0.4 %; Immature Granulocytes # (auto) 0.44 K/uL (0.01-0.20); Immature Granulocytes % (auto) 5.3 %; Lymphocytes # (auto) 0.46 K/uL (1.20-3.40); Lymphocytes % (auto) 5.5 %; Monocytes # (auto) 1.24 K/uL (0.11-0.59); Monocytes % (auto) 14.9 %; Neutrophils # (auto) 6.17 K/uL (1.40-6.50); Neutrophils % (auto) 73.8 %; Polychromasia 1+; Tear Drop Cells 1+
[2024-11-22] MEDS ORDERED: GABAPENTIN 600 MG TAB PO SCH (05:30)
[2024-11-22] MEDS: NICOTINE 14 MG/24 HR PATCH TD SCH (07:51)
[2024-11-22] MEDS: POTASSIUM CHLORIDE / WTR 10 MEQ/100 ML PLCT IV SCH (07:55)
[2024-11-22] MEDS: THIAMINE HCL 100 MG TAB PO SCH (08:01)
[2024-11-22] MEDS: ATORVASTATIN 40 MG TAB PO SCH (08:01)
[2024-11-22] MEDS: MULTIVITAMIN TAB PO SCH (08:01)
[2024-11-22] MEDS: PANTOprazole 40 MG TAB PO SCH (08:01)
[2024-11-22] MEDS: SERTRALINE HCL 50 MG TABLET PO SCH (08:01)
[2024-11-22] MEDS: CHOLECALCIFEROL 125 MCG (5,000 UNITS) TAB PO SCH (08:02)
--- NOTE | 2024-11-22 08:04 | Hospitalist Progress Note ---
Date of Service November 22, 2024 Assessment & Plan (1) Acute on chronic anemia: (2) Alcohol use disorder: (3) Obesity (BMI 30.0-34.9): (4) Chronic obstructive pulmonary disease: (5) Hypertension: (6) CAD (coronary artery disease): (7) GERD (gastroesophageal reflux disease): (8) Hepatic steatosis: (9) On home oxygen therapy: Plan Patient is a 59-year-old male with past medical history of COPD, SAROJ, hypertension, alcohol use disorder, coronary artery disease who presented to the hospital with shortness of breath. Acute on chronic hypoxic respiratory failure COPD exacerbation CAP Alcohol use disorder Alcohol withdrawal Patient presented to the hospital with shortness of breath; found to have COPD exacerbation. CTA chest on admission did not show PE; found to have mild reticular and patchy opacity in dependent lung bases. Overnight on November 18, patient became agitated; requiring multiple doses of Ativan for suspected alcohol withdrawal; ABG showed acute hypercapnic respiratory failure. Patient was transferred to ICU and mechanically ventilated Extubated on November 20, 2024 Transfer out of ICU in November 21, 2024 Continue on budesonide, formoterol nebs. Continue antibiotics cefepime and doxycycline for 7 days. Continue thiamine Acute kidney injury Creatinine up trended to 2.9; baseline around 0.68-1 Suspect likely secondary to episode of hypotension he presented with Creatinine downtrending Continue on Lasix Hypocalcemiacorrected calcium of 7.4; PTH elevated. Vitamin D level also found to be on lower side. Will continue on supplement. Will need outpatient endocrinology follow-up. Hx CAD/HLD: Diastolic CHF: Continue statin coreg and lasix resumed Hx SAROJ Continue 3 L oxygen at bedtime Recent GI bleedJanuary 2024 Esophageal ulcer/gastritis Continue on Protonix Full code DVT prophylaxis:heparin DispositionPT OT ordered; may need short-term rehab. Time spent evaluating patient, direct bedside care, chart review, placing orders, interpretation of diagnostic studies, discussion with consultants, patient, and family members, as well as other required patient management activities is 50 minutes Please note the above document was generated using voice recognition software. It may contain grammatical, syntax or spelling errors. Any formal questions or concerns about the content, text or information contained within the body of this dictation should be directly addressed to the provider for clarification Admission and Anticipated Discharge Date Admission Date: November 18, 2024 Subjective Patient seen and examined at bedside. Comfortable; not in distress. Denies fever, chills, chest pain, shortness of breath, abdominal pain or urinary symptoms. No significant overnight events Review of Systems Review of Systems: All systems reviewed & are unremarkable except as noted in Subjective Physical Exam Physical Exam: Constitutional: Awake, in mild respiratory distress. Oriented x 3 Respiratory: Bilateral crackles present. Decreased breath sound at bases Cardiovascular: RRR, no murmur, no edema Vessels: no JVD or carotid bruit Chest: normal inspection of chest. Bilateral basal crackles present Abdomen: Distended, nontender. Bowel sounds present Musculoskeletal: no cyanosis or clubbing, extremities motor strength 5/5 Skin: no rashes, warm and dry normal turgor Neurologic: PERRLA, moving all extremities. Results & Data Results & Data Vital Signs (Past 12 Hours) Vital Signs Temp Pulse Pulse Resp BP BP Pulse Ox 11/22/24 07:53 120 H 28 H 93 11/22/24 07:36 36.6 C 102 H 18 161/86 H 93 11/22/24 03:35 101 H 11/22/24 03:23 143/86 H 11/22/24 01:19 36.6 C 11/22/24 00:46 175/99 H 11/22/24 00:36 99 H 28 H 92 11/22/24 00:15 91 H 25 H 93 11/21/24 23:45 93 H 19 93 11/21/24 23:30 90 22 93 11/21/24 23:21 90 21 95 11/21/24 23:12 88 22 95 11/21/24 22:51 94 H 21 95 11/21/24 22:33 93 H 18 97 11/21/24 22:15 97 H 21 97 11/21/24 22:03 98 H 23 95 11/21/24 21:42 121 H 24 11/21/24 21:27 99 H 24 93 11/21/24 20:48 93 H 21 97 11/21/24 20:30 98 H 27 H 95 11/21/24 20:27 101 H 21 175/99 H 95 11/21/24 20:10 96 H 19 93 O2 Del Method O2 Flow Rate 11/22/24 07:53 Nasal Cannula 3 11/22/24 07:36 Nasal Cannula 3 11/22/24 03:35 11/22/24 03:23 11/22/24 01:19 11/22/24 00:46 11/22/24 00:36 11/22/24 00:15 11/21/24 23:45 11/21/24 23:30 11/21/24 23:21 11/21/24 23:12 11/21/24 22:51 11/21/24 22:33 11/21/24 22:15 11/21/24 22:03 11/21/24 21:42 11/21/24 21:27 11/21/24 20:48 11/21/24 20:30 11/21/24 20:27 11/21/24 20:10 Nasal Cannula 2 (4) Chronic obstructive pulmonary disease COPD type: COPD with acute exacerbation Qualified Code(s): J44.1 - Chronic obstructive pulmonary disease with (acute) exacerbation
[2024-11-22] MEDS: FUROSEMIDE 40 MG/4 ML VIAL IV ONE (11:11)
--- NOTE | 2024-11-22 11:11 | XRay Report ---
XR chest 2V PA/lateral CLINICAL HISTORY: shortness of breath, rule out pulmonary edema COMPARISON STUDY: Chest CT November 18, 2024. Chest radiograph November 20, 2024 FINDINGS: The endotracheal and nasogastric tubes have been removed. Cardiomediastinal silhouette is s table. There are low lung volumes. Bibasilar densities favor atelectasis. There are trace bilateral p leural effusions. No pneumothorax. No radiographic evidence for pulmonary edema. IMPRESSION: 1. No evidence for pulmonary edema. 2. Low lung volumes with bibasilar densities suggestive of atelectasis. 3. Trace bilateral pleural effusions. ACT 112: Negative or not required by law. Electronically signed by: Quan Tripp M.D. 11/22/2024 11:10 AM
[2024-11-22] MEDS: POTASSIUM CHLORIDE CRTAB 20 MEQ TABCR PO SCH (13:44)
[2024-11-22] MEDS: LEVALBUTEROL 1.25 MG/3 ML NEB NEB PRN (15:17)
[2024-11-22] MEDS: LORazepam 0.5 MG TAB PO PRN (16:38)
[2024-11-22] MEDS: CEFEPIME 2000MG 2,000 MG/20 ML SYR IV SCH (18:08)
[2024-11-23 05:18] LABS: Hematocrit (blood only) 27.5 % (42.0-52.0); Hemoglobin 8.9 g/dl (14.0-18.0); Mean Corpuscular Hemoglobin 31.8 pg (25.0-34.0); Mean Corpuscular Hgb Conc 32.4 g/dL (32.0-36.0); Mean Corpuscular Volume 98.2 fL (80.0-100.0); Mean Platelet Volume 11.6 fL (9.4-12.4); Nucleated RBC # (auto) 0.02 K/uL (0.00-0.12); Nucleated RBC % (auto) 0.2 %; Platelet Count 162 K/uL (130-400); RDW Coefficient of Variation 21.2 % (11.5-14.5); RDW Standard Deviation 75.7 fL (36.4-46.3); White Blood Count 11.65 K/ul (4.8-10.8)
[2024-11-23 05:53] LABS: BUN Creatinine Ratio 23.2 (10-20); Calcium 8.1 mg/dl (8.6-10.3); Creatinine Clr Calc Pharmacy 108.5 ml/min; Magnesium 1.8 mg/dl (1.7-2.4); Potassium 3.3 mmol/L (3.5-5.1)
[2024-11-23 06:59] LABS: Anisocytosis Present; Basophils # (auto) 0.01 K/uL (0.00-0.20); Basophils % (auto) 0.1 %; Dohle Bodies 1+; Eosinophils # (auto) 0.04 K/uL (0.00-0.50); Eosinophils % (auto) 0.3 %; Immature Granulocytes # (auto) 0.33 K/uL (0.01-0.20); Immature Granulocytes % (auto) 2.8 %; Lymphocytes # (auto) 0.44 K/uL (1.20-3.40); Lymphocytes % (auto) 3.8 %; Monocytes # (auto) 1.95 K/uL (0.11-0.59); Monocytes % (auto) 16.7 %; Neutrophils # (auto) 8.88 K/uL (1.40-6.50); Neutrophils % (auto) 76.3 %; Polychromasia 2+; Tear Drop Cells 1+; Toxic Granulation 1+; Toxic Vacuolation 1+
[2024-11-23] MEDS: carvediloL 6.25 MG TAB PO SCH (08:16)
--- NOTE | 2024-11-23 13:48 | Hospitalist Progress Note ---
Date of Service November 23, 2024 Assessment & Plan (1) Acute on chronic anemia: (2) Alcohol use disorder: (3) Obesity (BMI 30.0-34.9): (4) Chronic obstructive pulmonary disease: (5) Hypertension: (6) CAD (coronary artery disease): (7) GERD (gastroesophageal reflux disease): (8) Hepatic steatosis: (9) On home oxygen therapy: Plan Patient is a 59-year-old male with past medical history of COPD, SAROJ, hypertension, alcohol use disorder, coronary artery disease who presented to the hospital with shortness of breath. Acute on chronic hypoxic/hypercarbic respiratory failure Acute COPD exacerbation Community-acquired pneumonia Alcohol use disorder Alcohol withdrawal Patient presented to the hospital with shortness of breath; found to have COPD exacerbation. --CTA chest on admission did not show PE; found to have mild reticular and patchy opacity in dependent lung bases. --Overnight on November 18, patient became agitated; requiring multiple doses of Ativan for suspected alcohol withdrawal; ABG showed acute hypercapnic respira tory failure. Patient was transferred to ICU and mechanically ventilated. Extubated on November 20, 2024 --Respiratory status improved --Titrate supplemental oxygen to keep sats 88 to 92% --Continue on budesonide, formoterol nebs. --Continue antibiotics cefepime and doxycycline --Continue thiamine -- Monitor for alcohol withdrawal Continue thiamine, folic acid Plan to discharge to rehab facility today. Acute kidney injury Creatinine back to baseline Avoid nephrotoxic agents as able Monitor renal function Hypokalemia Replete and monitor Hypocalcemia Vitamin D deficiency PTH elevated Vitamin D level low Continue vitamin D supplements Monitor calcium levels Needs follow-up with endocrinology as outpatient Hx CAD/HLD: Diastolic CHF: Hypertension Continue statin, Lasix Coreg dose increased to 6.25 mg twice a day for better control of blood pressure Hx SAROJ Continue 3 L oxygen at bedtime Recent GI bleedJanuary 2024 Esophageal ulcer/gastritis Continue on Protonix DVT Px: Heparin SQ Code Status Full code Disposition Acute rehab as able Admission and Anticipated Discharge Date Admission Date: November 18, 2024 Subjective Patient is seen and examined at bedside Feels anxious this morning Reports less cough, patient has some dyspnea Denies any chest pain, nausea, vomiting, abdominal pain No other complaints Review of Systems Review of Systems: All systems reviewed & are unremarkable except as noted in Subjective Physical Exam Physical Exam: Physical Exam: Vitals signs as noted above General Appearance: Obese, no apparent distress Head: normocephalic, Atraumatic Eyes: normal inspection, EOMI Neck: supple, Trachea midline Respiratory/Chest: Decreased breath sounds, CTA, No accessory muscle use Cardiovascular: S1, S2, No murmur, tachycardia Abdomen/GI:Soft, Non tender, protuberant, bowel sounds present Extremities/Musculoskeletal:normal inspection, trace edema Neurologic/Psych: Alert, awake, grossly no focal neurological deficits Skin: normal color, warm Results & Data Results & Data Vital Signs (Past 12 Hours) Vital Signs Temp Pulse Pulse Resp BP Pulse Ox O2 Del Method 11/23/24 12:00 37.1 C 106 H 26 H 131/74 96 Nasal Cannula 11/23/24 10:38 120 H 11/23/24 07:49 Nasal Cannula 11/23/24 07:36 118 H 20 93 Room Air 11/23/24 07:00 Room Air, Nasal Cannula 11/23/24 07:00 36.4 C L 110 H 20 158/88 H 95 Room Air, Nasal Cannula 11/23/24 03:25 36.6 C 109 H 22 147/84 H 92 Room Air O2 Flow Rate 11/23/24 12:00 4 11/23/24 10:38 11/23/24 07:49 4 11/23/24 07:36 11/23/24 07:00 3 11/23/24 07:00 3 11/23/24 03:25 Laboratory Results Short CBC 11/23/24 Range/Units 05:01 WBC 11.65 H (4.8-10.8) K/ul Hgb 8.9 L (14.0-18.0) g/dl Hct 27.5 L (42.0-52.0) % Plt Count 162 (130-400) K/uL BMP 11/23/24 05:01 Sodium 134 L Potassium 3.3 L Chloride 102 Carbon Dioxide 25 BUN 22 Creatinine 0.95 D Glucose 114 H Calcium 8.1 L (4) Chronic obstructive pulmonary disease COPD type: COPD with acute exacerbation Qualified Code(s): J44.1 - Chronic obstructive pulmonary disease with (acute) exacerbation
[2024-11-23] MEDS: POTASSIUM CHLORIDE CRTAB 20 MEQ TABCR PO SCH (20:12)
--- NOTE | 2024-11-23 23:16 | Communication Note ---
Date of Service: November 23, 2024 Patient noted to be tachypneic and tachycardic. Patient agitated and restless as per RN. Substernal pain relieved by nitroglycerin. Worsening junky cough symptoms as per patient. Chest x-ray as per my interpretation: Right infiltrate EKG as per my interpretation : Rate 120, sinus tachycardia, LAD, LAFB, RBBB, no ischemia AP Chest pain Progressive pneumonia possible aspiration given alcohol use Alcohol withdrawal Zosyn in place of cefepime; continue doxycycline Follow troponin Gabapentin taper, careful IV Ativan as needed dosing given history intubation post sedative administration May need PCU transfer for closer monitoring
[2024-11-23] MEDS ORDERED: LORazepam 2 MG/1 ML VIAL IV PRN (23:18)
[2024-11-23 23:45] LABS: Hematocrit (blood only) 27.8 % (42.0-52.0); Hemoglobin 8.7 g/dl (14.0-18.0)
[2024-11-23] MEDS: POTASSIUM CHLORIDE CRTAB 20 MEQ TABCR PO STA (23:46)
[2024-11-23] MEDS: OLANZapine 10 MG/2.1 ML SDV IM STA (23:47)
[2024-11-23 23:48] LABS: Base Excess VBG -4.4 mEq/L; HCO3 VBG 22 mmol/L; Oxygen Saturation VBG 60.7 %; PCO2 VBG 45 mmHg (38-50); PO2 VBG 40 mmHg
[2024-11-23] MEDS: MAGNESIUM SULFATE / D5W 1 GM/100 ML BAG IV ONE (23:53)
[2024-11-24] MEDS: NITROGLYCERIN SL 0.4 MG/TAB TAB SL STA (00:06)
[2024-11-24] MEDS: LEVALBUTEROL 1.25 MG/3 ML NEB NEB STA (00:13)
[2024-11-24] MEDS: IPRATROPIUM BROMIDE NEB SOLN 0.02% 0.5MG/2.5ML VIAL INH STA (00:13)
[2024-11-24] MEDS: METOPROLOL TARTRATE 1 MG/ML VIAL IV STA ×2 (01:04→03:46)
--- NOTE | 2024-11-24 01:08 | XRay Report ---
EXAM: XR chest 1V portable CLINICAL HISTORY: Tachypnea. TECHNIQUE: An X-ray image of the chest is obtained in AP projection. COMPARISON: 11/22/2024 X-ray. FINDINGS: Multiple lines and wires are seen obscuring fine details. Pulmonary Parenchyma: Inhomogeneous shadowing right perihilar area. Obscuration of left costophrenic angle. Heart and Mediastinum: Heart size and shape are normal. No mediastinal widening or masses. No hilar or mediastinal lymphadenopathy. Bony Thorax: Bony thorax appears intact without fractures or deformities. Soft Tissues: Soft tissues overlying the chest wall are unremarkable. IMPRESSION: 1. Possible mild left pleural effusion. 2. Right perihilar haziness could be due to infiltration. 3. Interval new changes. Electronically signed by Jered Dinh 11-24-2024 01:08 AM
[2024-11-24 01:23] LABS: Adenovirus PCR Not Detected (NotDetected); Bordetella parapertussis PCR Not Detected (NotDetected); Bordetella pertussis PCR Not Detected (NotDetected); Chlamydia pneumoniae PCR Not Detected (NotDetected); Coronavirus 229E PCR Not Detected (NotDetected); Coronavirus CoV-2 (COVID19)PCR Not Detected (NotDetected); Coronavirus HKU1 PCR Not Detected (NotDetected); Coronavirus NL63 PCR Not Detected (NotDetected); Coronavirus OC43PCR Not Detected (NotDetected); Human Metapneumovirus PCR Not Detected (NotDetected); Influenza A PCR Not Detected (NotDetected); Influenza B PCR Not Detected (NotDetected); Mycoplasma pneumoniae PCR Not Detected (NotDetected); Parainfluenza Virus 1 PCR Not Detected (NotDetected); Parainfluenza Virus 2 PCR Not Detected (NotDetected); Parainfluenza Virus 3 PCR Not Detected (NotDetected); Parainfluenza Virus 4 PCR Not Detected (NotDetected); Respiratory Syncytial VirusPCR Not Detected (NotDetected); Rhinovirus/Enterovirus PCR Not Detected (NotDetected)
[2024-11-24] MEDS ORDERED: GABAPENTIN 1200MG ALCOHOL WITHDRAWAL LOAD PO STA (01:27)
[2024-11-24] MEDS: GABAPENTIN 600 MG TAB PO ONE (02:10)
[2024-11-24] MEDS: LORazepam 2 MG/1 ML VIAL IV PRN (02:10)
[2024-11-24] MEDS: PIPERACILLIN/TAZOBACTAM 4.5 GM/100 ML BAG IV ONE (02:11)
[2024-11-24] MEDS: LORazepam 2 MG/1 ML VIAL IV STA ×2 (03:13→04:20)
[2024-11-24] MEDS: carvediloL 3.125 MG TAB PO ONE (04:12)
[2024-11-24 04:41] LABS: Base Excess VBG -2.7 mEq/L; HCO3 VBG 23 mmol/L; Oxygen Saturation VBG 60.4 %; PCO2 VBG 40 mmHg (38-50); PO2 VBG 39 mmHg; pH VBG 7.36 (7.36-7.41)
[2024-11-24 04:46] LABS: Hemoglobin 8.2 g/dl (14.0-18.0); Mean Corpuscular Hemoglobin 31.8 pg (25.0-34.0); Mean Corpuscular Hgb Conc 31.5 g/dL (32.0-36.0); Mean Corpuscular Volume 100.8 fL (80.0-100.0); Mean Platelet Volume 11.2 fL (9.4-12.4); Nucleated RBC # (auto) 0.02 K/uL (0.00-0.12); Nucleated RBC % (auto) 0.1 %; Platelet Count 183 K/uL (130-400); RDW Coefficient of Variation 21.2 % (11.5-14.5); RDW Standard Deviation 77.8 fL (36.4-46.3); Red Blood Count 2.58 M/uL (4.70-6.10); White Blood Count 14.02 K/ul (4.8-10.8)
[2024-11-24 05:03] LABS: BUN Creatinine Ratio 22.3 (10-20); Calcium 8.5 mg/dl (8.6-10.3); Potassium 3.3 mmol/L (3.5-5.1)
[2024-11-24 05:09] LABS: Troponin I High Sensitivity 17.3 pg/ml (0-20)
[2024-11-24] MEDS: ACETAMINOPHEN 1,000 MG/100 ML VIAL IV STA (05:15)
[2024-11-24 05:18] LABS: Partial Thromboplastin Ratio 1.2; Partial Thromboplastin Time 31 Seconds (21-31)
[2024-11-24] MEDS: NSS + 20MEQ KCL 20 MEQ/1,000 ML BAG IV ONE (05:44)
--- NOTE | 2024-11-24 07:39 | Electrocardiogram Report ---
Test Reason : Blood Pressure : */* mmHG Vent. Rate : 115 BPM Atrial Rate : 115 BPM P-R Int : 156 ms QRS Dur : 134 ms QT Int : 344 ms P-R-T Axes : 57 -45 26 degrees QTcB Int : 475 ms Sinus tachycardia Right bundle branch block Left anterior fascicular block Abnormal ECG When compared with ECG of 19-Nov-2024 02:28, No significant change was found Confirmed by Joey Glover ([id number]) on 11/24/2024 7:39:19 AM Referred By: REFERRED SELF Confirmed By: Joey Glover
[2024-11-24 09:58] LABS: Base Excess VBG -4.9 mEq/L; HCO3 VBG 22 mmol/L; Oxygen Saturation VBG < 60.0 %; PCO2 VBG 46 mmHg (38-50); PO2 VBG 35 mmHg; pH VBG 7.28 (7.36-7.41)
[2024-11-24] MEDS: POTASSIUM CHLORIDE / WTR 10 MEQ/100 ML PLCT IV SCH (10:01)
[2024-11-24] MEDS: carvediloL 6.25 MG TAB PO SCH (11:03)
[2024-11-24] MEDS: GABAPENTIN 600 MG TAB PO SCH ×2 (11:03→20:58)
[2024-11-24] MEDS: PIPERACILLIN/TAZOBACTAM 4.5 GM/100 ML BAG IV SCH (11:44)
[2024-11-24] MEDS ORDERED: Nursing to Pharmacy Communication SCH (12:00)
--- NOTE | 2024-11-24 13:20 | CT Scan Report ---
CT head/brain wo con CLINICAL HISTORY: 59 years-old Male with altered mental status. Acutely altered mental status TECHNIQUE: Multiple axial CT images of the head were obtained without contrast. A dose lowering tech nique was utilized adhering to the principles of ALARA. CT DOSE: 2335.12 mGy.cm COMPARISON: 05/29/2024 FINDINGS: No acute intracranial hemorrhage, midline shift, intracranial mass, hydrocephalus, territorial ischem ia or abnormal extra-axial collection. Mild involutional changes. Study is motion degraded. The calvarium is intact. Mild mucosal thickening with air-fluid level noted within the left sphenoid sinus. IMPRESSION: Motion degraded exam without acute intracranial abnormality identified. ACT 112: Negative or not required by law. The above report was generated using voice recognition software. It may contain grammatical, syntax o r spelling errors. Electronically signed by: Trey Madison M.D. 11/24/2024 1:19 PM
[2024-11-24] MEDS ORDERED: LORazepam 2 MG/1 ML VIAL IV PRN (14:23)
--- NOTE | 2024-11-24 16:11 | Hospitalist Progress Note ---
Date of Service November 24, 2024 Assessment & Plan (1) Acute on chronic anemia: (2) Alcohol use disorder: (3) Obesity (BMI 30.0-34.9): (4) Chronic obstructive pulmonary disease: (5) Hypertension: (6) CAD (coronary artery disease): (7) GERD (gastroesophageal reflux disease): (8) Hepatic steatosis: (9) On home oxygen therapy: Plan Patient is a 59-year-old male with past medical history of COPD, SAROJ, hypertension, alcohol use disorder, coronary artery disease who presented to the hospital with shortness of breath. Acute on chronic hypoxic/hypercarbic respiratory failure Acute COPD exacerbation Community-acquired pneumonia Alcohol use disorder Alcohol withdrawal Acute metabolic encephalopathy Patient presented to the hospital with shortness of breath; found to have COPD exacerbation. --CTA chest on admission did not show PE; found to have mild reticular and patchy opacity in dependent lung bases. --Overnight on November 18, patient became agitated; requiring multiple doses of Ativan for suspected alcohol withdrawal; ABG showed acute hypercapnic respiratory failure. Patient was transferred to ICU and mechanically ventilated. Extubated on November 20, 2024 --CT head showed no acute abnormality --Respiratory status improved --Titrate supplemental oxygen to keep sats 88 to 92% --Continue on budesonide, formoterol nebs. --Continue antibiotics cefepime and doxycycline --Continue thiamine -- Monitor for alcohol withdrawal Continue thiamine, folic acid Continue gabapentin protocol Reorient frequently to minimize delirium VBG showed no hypercarbia currently Aspiration pneumonia Aspirated overnight on 11/23/2024 Aspiration precautions Continue Zosyn as above Supplemental oxygen as needed Hold sedating meds as able Acute kidney injury Creatinine back to baseline Avoid nephrotoxic agents as able Monitor renal function Hypokalemia Replete and monitor Hypocalcemia Vitamin D deficiency PTH elevated Vitamin D level low Continue vitamin D supplements Monitor calcium levels Needs follow-up with endocrinology as outpatient Hx CAD/HLD: Diastolic CHF: Hypertension Continue statin, Lasix Coreg dose increased to 6.25 mg twice a day for better control of blood pressure Hx SAROJ Continue 3 L oxygen at bedtime Recent GI bleedJanuary 2024 Esophageal ulcer/gastritis Continue on Protonix DVT Px: Heparin SQ Code Status Full code Disposition Acute rehab as able Admission and Anticipated Discharge Date Admission Date: November 18, 2024 Subjective Patient is seen and examined at bedside Was obtunded during my encounter this morning Opens eyes, moves all extremities but otherwise no meaningful history could be obtained today Patient was noted to be agitated and restless overnight requiring Ativan for alcohol withdrawal Was also thought to have aspirated Patient was started on gabapentin protocol for alcohol withdrawal CT head showed no acute process Chest x-ray suggestive of possible right sided infiltrate Review of Systems Review of Systems: Unobtainable due to reduced consciousness Physical Exam Physical Exam: Physical Exam: Vitals signs as noted above General Appearance: Obese, no apparent distress Head: normocephalic, Atraumatic Eyes: normal inspection, EOMI Neck: supple, Trachea midline Respiratory/Chest: Decreased breath sounds, CTA, No accessory muscle use Cardiovascular: S1, S2, No murmur, tachycardia Abdomen/GI:Soft, Non tender, protuberant, bowel sounds present Extremities/Musculoskeletal:normal inspection, trace edema Neurologic/Psych: Obtunded, grossly moves all extremities Skin: normal color, warm Results & Data Results & Data Vital Signs (Past 12 Hours) Vital Signs Temp Pulse Pulse Resp BP BP BP 11/24/24 15:13 37.7 C H 98 H 19 112/75 11/24/24 12:58 11/24/24 11:18 37.0 C 95 H 18 113/77 11/24/24 07:58 92 H 20 11/24/24 07:41 37.1 C 92 H 16 102/66 11/24/24 06:25 98 H 11/24/24 05:39 107 H 11/24/24 05:35 36.5 C 118 H 18 123/59 L 11/24/24 05:30 11/24/24 04:35 38.6 C H 105 H 24 95/60 L 11/24/24 04:08 36.7 C 116 H 24 118/65 11/24/24 04:06 116 H 118/65 Pulse Ox O2 Del Method O2 Flow Rate 11/24/24 15:13 94 Room Air 11/24/24 12:58 Nasal Cannula 3 11/24/24 11:18 96 Nasal Cannula 3 11/24/24 07:58 97 Nasal Cannula 3 11/24/24 07:41 97 Nasal Cannula 3 11/24/24 06:25 11/24/24 05:39 11/24/24 05:35 93 Nasal Cannula 3 11/24/24 05:30 Nasal Cannula 3 11/24/24 04:35 95 Nasal Cannula 3 11/24/24 04:08 95 Nasal Cannula 3 11/24/24 04:06 Laboratory Results Short CBC 11/23/24 11/24/24 Range/Units 23:27 04:27 WBC 14.02 H (4.8-10.8) K/ul Hgb 8.7 L 8.2 L (14.0-18.0) g/dl Hct 27.8 L 26.0 L (42.0-52.0) % Plt Count 183 (130-400) K/uL BMP 11/24/24 04:27 Sodium 138 Potassium 3.3 L Chloride 104 Carbon Dioxide 24 BUN 23 Creatinine 1.03 Glucose 81 Calcium 8.5 L (4) Chronic obstructive pulmonary disease COPD type: COPD with acute exacerbation Qualified Code(s): J44.1 - Chronic obstructive pulmonary disease with (acute) exacerbation
[2024-11-24] MEDS ORDERED: carvediloL 6.25 MG TAB PO SCH (17:00)
[2024-11-25 05:56] LABS: Base Excess VBG -3.7 mEq/L; HCO3 VBG 23 mmol/L; Oxygen Saturation VBG < 60.0 %; PCO2 VBG 45 mmHg (38-50); PO2 VBG 22 mmHg; pH VBG 7.31 (7.36-7.41)
[2024-11-25 06:04] LABS: Hematocrit (blood only) 27.4 % (42.0-52.0); Hemoglobin 8.2 g/dl (14.0-18.0); Mean Corpuscular Hemoglobin 31.3 pg (25.0-34.0); Mean Corpuscular Hgb Conc 29.9 g/dL (32.0-36.0); Mean Corpuscular Volume 104.6 fL (80.0-100.0); Mean Platelet Volume 10.9 fL (9.4-12.4); Platelet Count 254 K/uL (130-400); RDW Coefficient of Variation 21.6 % (11.5-14.5); RDW Standard Deviation 83.2 fL (36.4-46.3); Red Blood Count 2.62 M/uL (4.70-6.10)
[2024-11-25 06:24] LABS: BUN Creatinine Ratio 14.7 (10-20); Calcium 8.6 mg/dl (8.6-10.3); Creatinine Clr Calc Pharmacy 42.1 ml/min; Potassium 4.1 mmol/L (3.5-5.1)
[2024-11-25] MEDS: LACTATED RINGER'S 1,000 ML IV ONE (09:36)
--- NOTE | 2024-11-25 10:55 | Ultrasound Report ---
RENAL ULTRASOUND HISTORY: Acute kidney injury ALESSANDRO COMPARISON: CT 10/18/2024 FINDINGS: Right kidney: 12.9 cm. No hydronephrosis. Normal corticomedullary differentiation and cortical thickn ess. Left kidney: 13.2 cm. No hydronephrosis. Normal corticomedullary differentiation and cortical thickne ss. Bladder: Decompressed with Walton catheter in place. Hepatic steatosis incidentally noted. Trace ascites. IMPRESSION: 1. Unremarkable sonographic appearance of the kidneys. 2. Decompressed urinary bladder with Walton catheter in place. 3. Hepatic steatosis with trace ascites. ACT 112: Negative or not required by law. Electronically signed by: Trey Madison M.D. 11/25/2024 10:54 AM
[2024-11-25] MEDS: SODIUM CHLORIDE 0.9% 1,000 ML IV SCH (13:22)
--- NOTE | 2024-11-25 16:30 | Hospitalist Progress Note ---
Date of Service November 25, 2024 Assessment & Plan (1) Acute on chronic anemia: (2) Alcohol use disorder: (3) Obesity (BMI 30.0-34.9): (4) Chronic obstructive pulmonary disease: (5) Hypertension: (6) CAD (coronary artery disease): (7) GERD (gastroesophageal reflux disease): (8) Hepatic steatosis: (9) On home oxygen therapy: Plan Patient is a 59-year-old male with past medical history of COPD, SAROJ, hypertension, alcohol use disorder, coronary artery disease who presented to the hospital with shortness of breath. Acute on chronic hypoxic/hypercarbic respiratory failure Acute COPD exacerbation Community-acquired pneumonia Alcohol use disorder Alcohol withdrawal Acute metabolic encephalopathy Patient presented to the hospital with shortness of breath; found to have COPD exacerbation. --CTA chest on admission did not show PE; found to have mild reticular and patchy opacity in dependent lung bases. --Overnight on November 18, patient became agitated; requiring multiple doses of Ativan for suspected alcohol withdrawal; ABG showed acute hypercapnic respiratory failure. Patient was transferred to ICU and mechanically ventilated. Extubated on November 20, 2024 --CT head showed no acute abnormality --Respiratory status improved --Titrate supplemental oxygen to keep sats 88 to 92% --Continue on budesonide, formoterol nebs. --Continue antibiotics cefepime and doxycycline>> transition to Zosyn --Continue thiamine -- Monitor for alcohol withdrawal Continue thiamine, folic acid Continue gabapentin protocol Reorient frequently to minimize delirium Mental status better today Aspiration pneumonia Aspirated overnight on 11/23/2024 Aspiration precautions Continue Zosyn as above Supplemental oxygen as needed Speech therapy eval Advance diet as tolerated Urinary retention Continue Walton catheter Voiding trial prior to discharge Acute kidney injury Likely multifactorial ATN/obstructive uropathy --Renal USD: Unremarkable sonographic appearance of the kidneys. Decompressed urinary bladder with Walton catheter in place. Cr: 2.4 today Avoid nephrotoxic agents as able Monitor renal function Continue gentle IV fluids, monitor volume status closely Will consider nephrology evaluation if no improvement Hypokalemia Replete and monitor Hypocalcemia Vitamin D deficiency PTH elevated Vitamin D level low Continue vitamin D supplements Monitor calcium levels Needs follow-up with endocrinology as outpatient Hx CAD/HLD: Diastolic CHF: Hypertension Continue statin Continue Coreg with holding parameters Resume Lasix as able--currently held due to ALESSANDRO Hx SAROJ Continue 3 L oxygen at bedtime Recent GI bleedJanuary 2024 Esophageal ulcer/gastritis Continue on Protonix DVT Px: Heparin SQ Code Status Full code Disposition Acute rehab as able Admission and Anticipated Discharge Date Admission Date: November 18, 2024 Subjective Patient is seen and examined at bedside Mental status much improved today States having cough and feels tired Also reports left knee pain No other complaints today Denies any chest pain, dyspnea, abdominal pain, dizziness Review of Systems Review of Systems: All systems reviewed & are unremarkable except as noted in Subjective Physical Exam Physical Exam: Physical Exam: Vitals signs as noted above General Appearance: Obese, no apparent distress Head: normocephalic, Atraumatic Eyes: normal inspection, EOMI Neck: supple, Trachea midline Respiratory/Chest: Decreased breath sounds, CTA, No accessory muscle use Cardiovascular: S1, S2, No murmur Abdomen/GI:Soft, Non tender, protuberant, bowel sounds present Extremities/Musculoskeletal:normal inspection, trace edema Neurologic/Psych: Alert, awake, oriented x 2, grossly no focal deficits Skin: normal color, warm Results & Data Results & Data Vital Signs (Past 12 Hours) Vital Signs Temp Pulse Pulse Resp BP Pulse Ox O2 Del Method 11/25/24 15:48 94/60 L 11/25/24 15:31 36.4 C L 84 15 83/58 L 91 Nasal Cannula 11/25/24 13:01 86 11/25/24 11:15 36.7 C 88 19 104/66 95 Nasal Cannula 11/25/24 09:00 Nasal Cannula 11/25/24 07:42 36.8 C 98 H 18 106/68 92 Nasal Cannula 11/25/24 07:19 101 H 20 93 Nasal Cannula 11/25/24 05:53 98 H O2 Flow Rate 11/25/24 15:48 11/25/24 15:31 2 11/25/24 13:01 11/25/24 11:15 2 11/25/24 09:00 3 11/25/24 07:42 3 11/25/24 07:19 3 11/25/24 05:53 Laboratory Results Short CBC 11/25/24 Range/Units 05:39 WBC 19.30 H (4.8-10.8) K/ul Hgb 8.2 L (14.0-18.0) g/dl Hct 27.4 L (42.0-52.0) % Plt Count 254 (130-400) K/uL BMP 11/25/24 05:39 Sodium 139 Potassium 4.1 D Chloride 108 H Carbon Dioxide 24 BUN 36 H Creatinine 2.45 H D Glucose 102 H Calcium 8.6 (4) Chronic obstructive pulmonary disease COPD type: COPD with acute exacerbation Qualified Code(s): J44.1 - Chronic obstructive pulmonary disease with (acute) exacerbation
[2024-11-25] MEDS: SODIUM CHLORIDE 0.9% 250 ML IV ONE (17:51)
[2024-11-26] MEDS: GABAPENTIN 600 MG TAB PO SCH (02:05)
[2024-11-26 06:37] LABS: Hematocrit (blood only) 24.1 % (42.0-52.0); Hemoglobin 7.5 g/dl (14.0-18.0); Mean Corpuscular Hemoglobin 32.1 pg (25.0-34.0); Mean Corpuscular Hgb Conc 31.1 g/dL (32.0-36.0); Platelet Count 253 K/uL (130-400); RDW Standard Deviation 79.6 fL (36.4-46.3); Red Blood Count 2.34 M/uL (4.70-6.10); White Blood Count 16.13 K/ul (4.8-10.8)
[2024-11-26 07:18] LABS: BUN Creatinine Ratio 11.5 (10-20); Calcium 8.2 mg/dl (8.6-10.3); Potassium 3.6 mmol/L (3.5-5.1)
[2024-11-26] MEDS ORDERED: DOCUSATE SODIUM 100 MG CAP PO PRN (07:34)
[2024-11-26] MEDS: POLYETHYLENE (MIRALAX) 17 GM PACK PO PRN (07:48)
[2024-11-26] MEDS: carvediloL 3.125 MG TAB PO SCH (08:42)
--- NOTE | 2024-11-26 11:15 | XRay Report ---
KUB HISTORY: constipation COMPARISON STUDY: None FINDINGS: There is mild retained stool. No bowel obstruction seen. No gross free air. IMPRESSION: No acute findings. ACT 112: Negative or not required by law. The above report was generated using voice recognition software. It may contain grammatical, syntax o r spelling errors. Electronically signed by: Jaylen German M.D. 11/26/2024 11:13 AM
[2024-11-26] MEDS ORDERED: bisacodyL 5 MG TABEC PO PRN (12:06)
--- NOTE | 2024-11-26 14:40 | Hospitalist Progress Note ---
Date of Service November 26, 2024 Assessment & Plan (1) Acute on chronic anemia: (2) Alcohol use disorder: (3) Obesity (BMI 30.0-34.9): (4) Chronic obstructive pulmonary disease: (5) Hypertension: (6) CAD (coronary artery disease): (7) GERD (gastroesophageal reflux disease): (8) Hepatic steatosis: (9) On home oxygen therapy: Plan Patient is a 59-year-old male with past medical history of COPD, SAROJ, hypertension, alcohol use disorder, coronary artery disease who presented to the hospital with shortness of breath. Acute on chronic hypoxic/hypercarbic respiratory failure Acute COPD exacerbation Community-acquired pneumonia Alcohol use disorder Alcohol withdrawal Acute metabolic encephalopathy Tobacco use disorder Patient presented to the hospital with shortness of breath; found to have COPD exacerbation. --CTA chest on admission did not show PE; found to have mild reticular and patchy opacity in dependent lung bases. --Overnight on November 18, patient became agitated; requiring multiple doses of Ativan for suspected alcohol withdrawal; ABG showed acute hypercapnic respiratory failure. Patient was transferred to ICU and mechanically ventilated. Extubated on November 20, 2024 --CT head showed no acute abnormality --Respiratory status improved --Titrate supplemental oxygen to keep sats 88 to 92% --Continue on budesonide, formoterol nebs. --Continue antibiotics cefepime and doxycycline>> transition to Zosyn --Continue thiamine -- Monitor for alcohol withdrawal Continue thiamine, folic acid Received gabapentin for alcohol withdrawal Reorient frequently to minimize delirium Mental status waxes and wanes Avoid sedating medications as able Updated patient's family (Sister--POA) in detail over the phone today Low threshold to transfer to ICU if clinically deteriorates Aspiration pneumonia Aspirated overnight on 11/23/2024 Aspiration precautions Continue Zosyn as above Supplemental oxygen as needed Speech therapy eval Tolerating current diet Urinary retention Continue Walton catheter Voiding trial prior to discharge Acute kidney injury Likely multifactorial ATN/obstructive uropathy/hypotension --Renal USD: Unremarkable sonographic appearance of the kidneys. Decompressed urinary bladder with Walton catheter in place. Cr: 2.4> 3.8 Avoid nephrotoxic agents as able Monitor renal function Clinically volume overloaded Nephrology consulted Hypokalemia Replete and monitor Hypocalcemia Vitamin D deficiency PTH elevated Vitamin D level low Continue vitamin D supplements Monitor calcium levels Needs follow-up with endocrinology as outpatient Hx CAD/HLD: Diastolic CHF: Hypertension Continue statin Hold Coreg due to low blood pressure Diuretics held currently Hx SAROJ Continue 3 L oxygen at bedtime Recent GI bleedJanuary 2024 Esophageal ulcer/gastritis Continue on Protonix DVT Px: Heparin SQ Code Status Full code Disposition Acute rehab as able Admission and Anticipated Discharge Date Admission Date: November 18, 2024 Subjective Patient is seen and examined at bedside Mental status waxes and wanes Reports less cough, dyspnea today Also states having left leg pain Updated patient's sister over the phone No other complaints Renal function worsening Review of Systems Review of Systems: All systems reviewed & are unremarkable except as noted in Subjective Physical Exam Physical Exam: Physical Exam: Vitals signs as noted above General Appearance: Obese, no apparent distress Head: normocephalic, Atraumatic Eyes: normal inspection, EOMI Neck: supple, Trachea midline Respiratory/Chest: Decreased breath sounds, CTA, No accessory muscle use Cardiovascular: S1, S2, No murmur Abdomen/GI:Soft, Non tender, protuberant, bowel sounds present Extremities/Musculoskeletal:normal inspection, trace edema Neurologic/Psych: Alert, awake, oriented x 2, grossly no focal deficits Skin: normal color, warm Results & Data Results & Data Vital Signs (Past 12 Hours) Vital Signs Temp Pulse Pulse Resp BP BP Pulse Ox 11/26/24 13:08 88 86/58 L 11/26/24 13:01 88 11/26/24 12:47 36.7 C 91 H 20 87/53 L 94 11/26/24 09:00 11/26/24 08:00 36.7 C 105 H 18 116/64 90 11/26/24 07:13 100 H 18 92 11/26/24 05:31 99 H 11/26/24 03:32 36.7 C 101 H 20 108/70 93 O2 Del Method O2 Flow Rate 11/26/24 13:08 Nasal Cannula 3 11/26/24 13:01 11/26/24 12:47 Nasal Cannula 2 11/26/24 09:00 Nasal Cannula 3 11/26/24 08:00 Nasal Cannula 2 11/26/24 07:13 Nasal Cannula 2 11/26/24 05:31 11/26/24 03:32 Nasal Cannula Laboratory Results Short CBC 11/26/24 Range/Units 06:12 WBC 16.13 H (4.8-10.8) K/ul Hgb 7.5 L (14.0-18.0) g/dl Hct 24.1 L (42.0-52.0) % Plt Count 253 (130-400) K/uL [facility] 11/26/24 06:12 Sodium 138 Potassium 3.6 Chloride 107 Carbon Dioxide 23 BUN 44 H Creatinine 3.82 H D Glucose 125 H Calcium 8.2 L (4) Chronic obstructive pulmonary disease COPD type: COPD with acute exacerbation Qualified Code(s): J44.1 - Chronic obstructive pulmonary disease with (acute) exacerbation
--- NOTE | 2024-11-26 14:54 | Ultrasound Report ---
HISTORY: Lower extremity pain and edema. TECHNIQUE: Bilateral lower extremity venous Doppler evaluation for DVT. COMPARISON: None FINDINGS: The bilateral common femoral, greater saphenous junction, femoral, deep femoral, popliteal, posterior tibial, peroneal, and anterior tibial veins appear color Doppler patent and compressible. Respiratory variation and augmentation is noted. Soft tissue edema is present. IMPRESSION: No evidence of lower extremity DVT. Electronically signed by Mikel Duong 11-26-2024 2:53 PM
--- NOTE | 2024-11-26 15:53 | Nephrology Consultation ---
Date of Consultation November 26, 2024 Assessment & Plan (1) ALESSANDRO (acute kidney injury): patient with the acute kidney injury due to ischemic ATN in setting of sepsis and hypotension. Patient is being treated for pneumonia. Blood pressure remains low. Patient was also on Coreg. Creatinine was 1 3 days ago but now up trending 3.8. He is making some urine. Electrolytes are stable. No indication for dialysis. - stop Coreg - stop IV fluids as patient is high risk for CHF - if patient becomes more hypoxic, okay to try IV Lasix 40 mg three times daily and monitor response (2) Acute respiratory failure with hypoxia: likely due to pneumonia, COPD exacerbation and volume overload. Patient is getting antibiotics. We are holding off diuretics due to hypotension. Low threshold to give IV Lasix if worsening hypoxia. History of Present Illness Reason for Consultation: acute kidney injury and volume overload Requesting Physician: Angel Carmichael MD Attending Physician: Angel Carmichael MD History of Present Illness The patient is a 59-year-old male with a past medical history of nonocclusive CAD, PVD, HTN, HLD, COPD, SAROJ on CPAP, hepatic steatosis, anemia with recent GI bleed September 2024 who was admitted on 11/18/2024 with shortness of breath. he got CTA of the chest which was negative for PE. Creatinine was 0.7 on admission but increased the next day after CTA and peaked at 2.9. patient also became agitated and required ICU care with the mechanical ventilation subsequently extubated and now on the floor. Creatinine had improved to baseline of 1 but patient became hypotensive on 11/24/2024 and 11/25/2024. His creatinine is now up trending to 3.8. He is making some urine. Blood pressure remains low. He complains of shortness of breath with minimal exertion. Legs are slightly swollen. He is on 4 L nasal cannula level oxygen Allergies Allergy/AdvReac Type Severity Reaction Status Date / Time TONIA Inhibitors AdvReac Severe ALESSANDRO Verified 01/13/24 09:28 ARB-Angiotensin Receptor AdvReac Severe ALESSANDRO Verified 12/28/23 09:35 Antagonist prednisone AdvReac Mild "jitterines Verified 12/28/23 09:35 s" Home Medications Medication Instructions Recorded Confirmed Type aspirin 81 mg tablet,delayed 81 mg PO QAM #30 tabs 03/09/23 11/18/24 Rx release atorvastatin 80 mg tablet 80 mg PO QAM 03/16/23 11/18/24 History baclofen 10 mg tablet 10 mg PO TID PRN Muscle Spasm 06/09/23 11/18/24 History ipratropium 0.5 mg-albuterol 3 mg 3 ml inhalation Q6H PRN 06/11/23 11/18/24 Rx (2.5 mg base)/3 mL nebulization wheezing/severe shortness of soln breath #90 mL furosemide 20 mg tablet 20 mg PO QAM 10/14/23 11/18/24 History potassium chloride 20 mEq 20 meq PO QAM 10/14/23 11/18/24 History tablet,extended release folic acid 1 mg tablet 1 mg PO QAM #30 tabs 12/07/23 11/18/24 Rx fluticasone fur. 200 mcg-umeclid 1 inh inhalation QAM 12/28/23 11/18/24 History 62.5 mcg-vilant 25 mcg inhalat.powder (Trelegy Ellipta) lorazepam 1 mg tablet 1 mg PO Q6 PRN Anxiety 10/18/24 11/18/24 History sertraline 50 mg tablet 50 mg PO QAM 10/18/24 11/18/24 History tramadol 50 mg tablet 50 mg PO Q6 PRN Pain 10/18/24 11/18/24 History carvedilol 3.125 mg tablet (Coreg) 3.125 mg PO BID #60 tabs 10/21/24 11/18/24 Rx multivitamin with folic acid 400 1 tab PO QAM 30 days #30 tabs 10/21/24 11/18/24 Rx mcg tablet (Daily-Karen (with folic acid)) nicotine 7 mg/24 hr daily 1 patch transdermal QAM #28 ea 10/21/24 11/18/24 Rx transdermal patch pantoprazole 40 mg tablet,delayed 40 mg PO UD #37 tabs 10/21/24 11/18/24 Rx release thiamine HCl (vitamin B1) 100 mg 100 mg PO QAM 30 days #30 tabs 10/21/24 11/18/24 Rx tablet Patient History Medical History On home oxygen therapy 2 LPM at Acute respiratory failure with hypoxia hospitalized at [facility] November 2023 for this, still having some shortness of breath with activity, at rest is okay Hepatic steatosis CAD (coronary artery disease) GERD (gastroesophageal reflux disease) controlled, stable per pt Kidney disease following with [facility] Ne[facility]rology. Sleep apnea no device Plaque psoriasis Hx of seasonal allergies Spinal stenosis History of shingles 05/2022, PRN gabapentin for chronic right eye irritation/pain from shingles Surgical History History of cardiac catheterization 02/2023 [facility]. no stents. History of back surgery lumbar > "bone spur shaving" Hx of arthroscopic knee surgery Left Hx of foot surgery Left Hx of inguinal hernia repair History of esophagogastroduodenoscopy (EGD) Family History Father Diabetes Social History Smoking Status: Current every day smoker Tobacco Type: Cigarettes Cigarettes Per Day: .5 pack a day; Second Hand Exposure: No; Do You Dip or Chew Tobacco: No; Hx Alcohol Use: Yes Alcohol type: hard liquor Alcohol Intake Frequency: 4 or More x per/Week Alcohol Intake Frequency Comment: 2-12 beers 5x/week Hx Substance Use: No Preferred Language: Sinhala Communication Ability: Impaired Director Of Anesthesia Services Required: No Beliefs That Will Affect Care: None Current Living Situation: Alone and Family Current Living Situation Comment: lives with mom Other Information That Helps Us Care for You: Yes Feels Safe at Home: Yes Safety Concerns: Feels Safe At This Time Assistive Devices: Cane and Nebulizer Review of Systems 2 Review of Systems: All other systems were reviewed and negative except as noted in HPI Physical Exam 2 Physical Exam: General exam: Appears comfortable, no acute distress HEENT: Pupils are equal and reactive to light Neck: No JVD, neck is supple trachea is midline Respiratory system: Clear breath sounds bilaterally. Gastrointestinal: Abdomen is soft, non distended, non tender, bowel sounds are present CVS: Regular rate and rhythm. No murmurs, rubs or gallops Musculoskeletal: No joint or muscle tenderness Extremities: Non tender, no edema, peripheral pulses are present Neuro: Oriented, no tremors, no focal neurological deficits Skin: No rashes Results & Data Vital Signs (Past 12 Hours) Vital Signs Temp Pulse Pulse Resp BP BP Pulse Ox 11/26/24 15:10 92 11/26/24 13:08 88 86/58 L 11/26/24 13:01 88 11/26/24 12:47 36.7 C 91 H 20 87/53 L 94 11/26/24 09:00 11/26/24 08:00 36.7 C 105 H 18 116/64 90 11/26/24 07:13 100 H 18 92 11/26/24 05:31 99 H O2 Del Method O2 Flow Rate 11/26/24 15:10 Nasal Cannula 4 11/26/24 13:08 Nasal Cannula 3 11/26/24 13:01 11/26/24 12:47 Nasal Cannula 2 11/26/24 09:00 Nasal Cannula 3 11/26/24 08:00 Nasal Cannula 2 11/26/24 07:13 Nasal Cannula 2 11/26/24 05:31 Laboratory Results 11/26/24 06:12 11/26/24 06:12 WBC 16.13 H RBC 2.34 L MCV 103.0 H MCH 32.1 MCHC 31.1 L RDW Std Deviation 79.6 H RDW Coeff of Rogelio 21.0 H Plt Count 253 MPV 11.0
[2024-11-26] MEDS: ALBUMIN 25% 25 GM/100 ML VIAL IV ONE (23:31)
[2024-11-27 06:18] LABS: Hematocrit (blood only) 24.1 % (42.0-52.0); Hemoglobin 7.3 g/dl (14.0-18.0); Mean Corpuscular Hemoglobin 31.5 pg (25.0-34.0); Mean Corpuscular Hgb Conc 30.3 g/dL (32.0-36.0); Mean Corpuscular Volume 103.9 fL (80.0-100.0); Mean Platelet Volume 10.9 fL (9.4-12.4); Platelet Count 284 K/uL (130-400); RDW Coefficient of Variation 20.9 % (11.5-14.5); RDW Standard Deviation 78.4 fL (36.4-46.3); Red Blood Count 2.32 M/uL (4.70-6.10); White Blood Count 15.36 K/ul (4.8-10.8)
[2024-11-27 06:38] LABS: BUN Creatinine Ratio 10.3 (10-20); Calcium 8.6 mg/dl (8.6-10.3); Creatinine Clr Calc Pharmacy 20.3 ml/min; Potassium 3.9 mmol/L (3.5-5.1)
--- NOTE | 2024-11-27 12:02 | XRay Report ---
XR chest 1V portable CLINICAL HISTORY: hypoxia COMPARISON STUDY: 11/24/2024 FINDINGS: Stable mild cardiomegaly with mild pulmonary vascular congestion. Inspiration is shallow. S table hazy opacity at the left base with blunting of the left costophrenic angle. Stable mild strandi ng at the right base. No pneumothorax. IMPRESSION: Stable exam. ACT 112: Negative or not required by law. Electronically signed by: Jaylen German M.D. 11/27/2024 11:59 AM
[2024-11-27] MEDS ORDERED: SODIUM CHLORIDE 0.9% 50 ML IV PRN (12:04)
[2024-11-27] MEDS ORDERED: SODIUM CHLORIDE 0.9% 100 ML IV PRN (12:04)
[2024-11-27] MEDS ORDERED: GABAPENTIN 600 MG TAB PO SCH (14:30)
--- NOTE | 2024-11-27 14:31 | Nephrology Progress Note ---
Date of Service November 27, 2024 Assessment & Plan (1) ALESSANDRO (acute kidney injury): Plan: patient with the acute kidney injury due to ischemic ATN in setting of sepsis and hypotension. Patient is being treated for pneumonia. Blood pressure remains low. Patient was also on Coreg. Creatinine was 1 3 days ago but now up trending 5. patient is anuric now. Chest x-ray showed cardiomegaly and mild pulmonary vascular congestion. Electrolytes are stable. No indication for dialysis but he will likely need dialysis in the next 24-48 hours if he remains anuric. - Continue to monitor input/output - if patient becomes more hypoxic, okay to try IV Lasix 40 mg three times daily and monitor response (2) Acute respiratory failure with hypoxia: Plan: likely due to pneumonia, COPD exacerbation and volume overload. Patient is getting antibiotics. We are holding off diuretics due to hypotension. Low threshold to give IV Lasix if worsening hypoxia. Admission and Anticipated Discharge Date Admission Date: November 18, 2024 Subjective Seen for acute kidney injury and volume overload. Patient has shortness of breath with minimal exertion. Legs swollen. Patient is anuric. Review of Systems 2 Review of Systems: All other systems were reviewed and negative except as noted in HPI Physical Exam 2 Physical Exam: General exam: Appears comfortable, no acute distress HEENT: Pupils are equal and reactive to light Neck: No JVD, neck is supple trachea is midline Respiratory system: Clear breath sounds bilaterally. Gastrointestinal: Abdomen is soft, non distended, non tender, bowel sounds are present CVS: Regular rate and rhythm. No murmurs, rubs or gallops Musculoskeletal: No joint or muscle tenderness Extremities: Non tender, 1+ edema, peripheral pulses are present Neuro: Oriented, no tremors, no focal neurological deficits Skin: No rashes Results & Data Vital Signs (Past 12 Hours) Vital Signs Temp Pulse Pulse Resp BP Pulse Ox O2 Del Method 11/27/24 13:00 90 11/27/24 11:44 36.8 C 90 18 107/67 94 Room Air 11/27/24 10:00 Nasal Cannula 11/27/24 08:16 95 H 18 92 Nasal Cannula 11/27/24 07:32 36.6 C 91 H 19 102/66 93 Nasal Cannula 11/27/24 05:31 92 H 11/27/24 03:52 36.5 C 93 H 17 125/75 94 Nasal Cannula O2 Flow Rate 11/27/24 13:00 11/27/24 11:44 11/27/24 10:00 2 11/27/24 08:16 2 11/27/24 07:32 2 11/27/24 05:31 11/27/24 03:52 Laboratory Results 11/27/24 05:39 11/27/24 05:39 WBC 15.36 H RBC 2.32 L MCV 103.9 H MCH 31.5 MCHC 30.3 L RDW Std Deviation 78.4 H RDW Coeff of Rogelio 20.9 H Plt Count 284 MPV 10.9 Diagnostic Findings chest x-ray done on 11/27/2024 showed cardiomegaly and mild pulmonary vascular congestion.
--- NOTE | 2024-11-27 14:46 | Hospitalist Progress Note ---
Date of Service November 27, 2024 Assessment & Plan (1) Acute on chronic anemia: (2) Alcohol use disorder: (3) Obesity (BMI 30.0-34.9): (4) Chronic obstructive pulmonary disease: (5) Hypertension: (6) CAD (coronary artery disease): (7) GERD (gastroesophageal reflux disease): (8) Hepatic steatosis: (9) On home oxygen therapy: Plan Patient is a 59-year-old male with past medical history of COPD, SAROJ, hypertension, alcohol use disorder, coronary artery disease who presented to the hospital with shortness of breath. Acute on chronic hypoxic/hypercarbic respiratory failure Acute COPD exacerbation Community-acquired pneumonia Alcohol use disorder Alcohol withdrawal Acute metabolic encephalopathy Tobacco use disorder Patient presented to the hospital with shortness of breath; found to have COPD exacerbation. --CTA chest on admission did not show PE; found to have mild reticular and patchy opacity in dependent lung bases. --Overnight on November 18, patient became agitated; requiring multiple doses of Ativan for suspected alcohol withdrawal; ABG showed acute hypercapnic respiratory failure. Patient was transferred to ICU and mechanically ventilated. Extubated on November 20, 2024 --CT head showed no acute abnormality --Respiratory status improved --Titrate supplemental oxygen to keep sats 88 to 92% --Continue on budesonide, formoterol nebs. --Continue antibiotics cefepime and doxycycline>> transition to Zosyn --Continue thiamine -- Monitor for alcohol withdrawal Continue thiamine, folic acid Complete gabapentin protocol Reorient frequently to minimize delirium Avoid sedating medications as able Mental status much improved Titrated Zosyn dose for renal function Aspiration pneumonia Aspirated overnight on 11/23/2024 Aspiration precautions Continue Zosyn as above Supplemental oxygen as needed Speech therapy eval Tolerating current diet Urinary retention Continue Walton catheter Voiding trial prior to discharge Acute kidney injury Likely multifactorial ATN/obstructive uropathy/hypotension --Renal USD: Unremarkable sonographic appearance of the kidneys. Decompressed urinary bladder with Walton catheter in place. Cr: 2.4> 3.8> 5.1 Avoid nephrotoxic agents as able Monitor renal function Appreciate nephrology input Poor urinary output If remains anuric, will likely need dialysis Hypokalemia Replete and monitor Hypocalcemia Vitamin D deficiency PTH elevated Vitamin D level low Continue vitamin D supplements Monitor calcium levels Needs follow-up with endocrinology as outpatient Hx CAD/HLD: Diastolic CHF: Hypertension Continue statin Hold Coreg due to low blood pressure Diuretics held currently Hx SAROJ Continue 3 L oxygen at bedtime Microcytic anemia likely multifactorial: Recent GI bleed, renal failure, alcohol use No obvious bleeding issues Monitor CBC Anemia workup pending Transfuse as needed if hemoglobin less than 7 Recent GI bleedJanuary 2024 Esophageal ulcer/gastritis Continue on Protonix DVT Px: Heparin SQ Code Status Full code Disposition Acute rehab as able Admission and Anticipated Discharge Date Admission Date: November 18, 2024 Subjective Patient is seen and examined at bedside Alert, awake, oriented this morning Reports left leg pain Discussed with nephrology today Renal function worsening Updated patient's sister over the phone Patient denies any chest pain, dyspnea, abdominal pain Review of Systems Review of Systems: All systems reviewed & are unremarkable except as noted in Subjective Physical Exam Physical Exam: Physical Exam: Vitals signs as noted above General Appearance: Obese, no apparent distress Head: normocephalic, Atraumatic Eyes: normal inspection, EOMI Neck: supple, Trachea midline Respiratory/Chest: Decreased breath sounds, CTA, No accessory muscle use Cardiovascular: S1, S2, No murmur Abdomen/GI:Soft, Non tender, protuberant, bowel sounds present Extremities/Musculoskeletal:normal inspection, 2+ LE edema Neurologic/Psych: Alert, awake, oriented, grossly no focal deficits Skin: normal color, warm Results & Data Results & Data Vital Signs (Past 12 Hours) Vital Signs Temp Pulse Pulse Resp BP Pulse Ox O2 Del Method 11/27/24 13:00 90 11/27/24 11:44 36.8 C 90 18 107/67 94 Room Air 11/27/24 10:00 Nasal Cannula 11/27/24 08:16 95 H 18 92 Nasal Cannula 11/27/24 07:32 36.6 C 91 H 19 102/66 93 Nasal Cannula 11/27/24 05:31 92 H 11/27/24 03:52 36.5 C 93 H 17 125/75 94 Nasal Cannula O2 Flow Rate 11/27/24 13:00 11/27/24 11:44 11/27/24 10:00 2 11/27/24 08:16 2 11/27/24 07:32 2 11/27/24 05:31 11/27/24 03:52 Laboratory Results Short CBC 11/27/24 Range/Units 05:39 WBC 15.36 H (4.8-10.8) K/ul Hgb 7.3 L (14.0-18.0) g/dl Hct 24.1 L (42.0-52.0) % Plt Count 284 (130-400) K/uL [facility] 11/27/24 05:39 Sodium 136 Potassium 3.9 Chloride 103 Carbon Dioxide 23 BUN 53 H Creatinine 5.14 H* D Glucose 140 H Calcium 8.6 (4) Chronic obstructive pulmonary disease COPD type: COPD with acute exacerbation Qualified Code(s): J44.1 - Chronic obstructive pulmonary disease with (acute) exacerbation
[2024-11-27] MEDS: NICOTINE POLACRILEX 2 MG GUM MT PRN (15:46)
[2024-11-27] MEDS: PIPERACILLIN/TAZOBACTAM 4.5 GM/100 ML BAG IV SCH (20:16)
[2024-11-27] MEDS: hydrOXYzine HCl 10 MG TAB PO PRN (21:37)
[2024-11-28 06:29] LABS: Hematocrit (blood only) 26.6 % (42.0-52.0); Hemoglobin 8.1 g/dl (14.0-18.0); Mean Corpuscular Hemoglobin 31.3 pg (25.0-34.0); Mean Corpuscular Hgb Conc 30.5 g/dL (32.0-36.0); Mean Corpuscular Volume 102.7 fL (80.0-100.0); Mean Platelet Volume 10.8 fL (9.4-12.4); Nucleated RBC # (auto) 0.02 K/uL (0.00-0.12); Nucleated RBC % (auto) 0.1 %; Platelet Count 356 K/uL (130-400); RDW Coefficient of Variation 20.2 % (11.5-14.5); RDW Standard Deviation 75.7 fL (36.4-46.3); Red Blood Count 2.59 M/uL (4.70-6.10); White Blood Count 18.97 K/ul (4.8-10.8)
[2024-11-28 07:03] LABS: Anion Gap 11 (3-11); BUN Creatinine Ratio 8.6 (10-20); Blood Urea Nitrogen 60 mg/dl (6-23); Calcium 9.1 mg/dl (8.6-10.3); Carbon Dioxide 22 mmol/L (21-32); Chloride 103 mmol/L (98-107); Creatinine Clr Calc Pharmacy 15.1 ml/min; Glucose 117 mg/dl (70-99(Fasting)); Iron 12 mcg/dl (35-175); Potassium 4.4 mmol/L (3.5-5.1); Sodium 136 mmol/L (136-145); Transferrin < 95 mg/dl (200-360)
[2024-11-28 07:15] LABS: Folate (Folic Acid),Ser orPlas > 22.30 ng/ml (>5.38)
[2024-11-28 07:16] LABS: Vitamin B12 961 pg/ml (180-914)
--- NOTE | 2024-11-28 13:56 | Nephrology Progress Note ---
Date of Service November 28, 2024 Assessment & Plan (1) ALESSANDRO (acute kidney injury): Plan: patient with the acute kidney injury due to ischemic ATN in setting of sepsis and hypotension. Patient is being treated for pneumonia. Creatinine was 1 3 days ago but now up trending 6.9. patient is anuric now. Chest x-ray showed cardiomegaly and mild pulmonary vascular congestion. Electrolytes are stable. No indication for dialysis but he will likely need dialysis in the next 24-48 hours if he remains anuric. - Continue to monitor input/output - if patient becomes more hypoxic, okay to try IV Lasix 40 mg three times daily and monitor response - keep NPO after midnight. ask Interventional Radiology to plan for PermCath tomorrow. (2) Acute respiratory failure with hypoxia: Plan: likely due to pneumonia, COPD exacerbation and volume overload. Patient is getting antibiotics. We are holding off diuretics due to hypotension. Low threshold to give IV Lasix if worsening hypoxia. Plan Discussed case with Dr. Carmichael agrees with holding off dialysis today of at possibly tomorrow. Admission and Anticipated Discharge Date Admission Date: November 18, 2024 Subjective seen for acute renal failure. Patient remains anuric. Weight is going 122 kg. He denies shortness of breath. Legs are swollen. Creatinine up trending to 6.9 Review of Systems 2 Review of Systems: All other systems were reviewed and negative except as noted in HPI Physical Exam 2 Physical Exam: General exam: Appears comfortable, no acute distress HEENT: Pupils are equal and reactive to light Neck: No JVD, neck is supple trachea is midline Respiratory system: Clear breath sounds bilaterally. Gastrointestinal: Abdomen is soft, non distended, non tender, bowel sounds are present CVS: Regular rate and rhythm. No murmurs, rubs or gallops Musculoskeletal: No joint or muscle tenderness Extremities: Non tender, 1+ edema, peripheral pulses are present Neuro: Oriented, no tremors, no focal neurological deficits Skin: No rashes Results & Data Vital Signs (Past 12 Hours) Vital Signs Temp Pulse Resp BP Pulse Ox O2 Del Method O2 Flow Rate 11/28/24 11:33 36.9 C 88 18 156/91 H 90 Room Air 11/28/24 10:12 Room Air 11/28/24 08:07 36.6 C 96 H 20 139/75 93 Room Air 11/28/24 07:11 108 H 20 91 Nasal Cannula 2 03/10/25 02:53 36.6 C 88 20 137/78 93 Nasal Cannula Laboratory Results 11/28/24 06:01 11/28/24 06:01 WBC 18.97 H RBC 2.59 L MCV 102.7 H MCH 31.3 MCHC 30.5 L RDW Std Deviation 75.7 H RDW Coeff of Rogelio 20.2 H Plt Count 356 MPV 10.8
--- NOTE | 2024-11-28 14:17 | Hospitalist Progress Note ---
Date of Service November 28, 2024 Assessment & Plan (1) Acute on chronic anemia: (2) Alcohol use disorder: (3) Obesity (BMI 30.0-34.9): (4) Chronic obstructive pulmonary disease: (5) Hypertension: (6) CAD (coronary artery disease): (7) GERD (gastroesophageal reflux disease): (8) Hepatic steatosis: (9) On home oxygen therapy: Plan Patient is a 59-year-old male with past medical history of COPD, SAROJ, hypertension, alcohol use disorder, coronary artery disease who presented to the hospital with shortness of breath. Acute on chronic hypoxic/hypercarbic respiratory failure Acute COPD exacerbation Community-acquired pneumonia Alcohol use disorder Alcohol withdrawal Acute metabolic encephalopathy Tobacco use disorder Patient presented to the hospital with shortness of breath; found to have COPD exacerbation. --CTA chest on admission did not show PE; found to have mild reticular and patchy opacity in dependent lung bases. --Overnight on November 18, patient became agitated; requiring multiple doses of Ativan for suspected alcohol withdrawal; ABG showed acute hypercapnic respiratory failure. Patient was transferred to ICU and mechanically ventilated. Extubated on November 20, 2024 --CT head showed no acute abnormality --Respiratory status improved --Titrate supplemental oxygen to keep sats 88 to 92% --Continue on budesonide, formoterol nebs. --Continue antibiotics cefepime and doxycycline>> transition to Zosyn --Continue thiamine -- Monitor for alcohol withdrawal Continue thiamine, folic acid Complete gabapentin protocol Avoid sedating medications as able Titrated Zosyn dose for renal function Persistent leukocytosis, afebrile No other obvious source of infection Aspiration pneumonia Aspirated overnight on 11/23/2024 Aspiration precautions Continue Zosyn as above Supplemental oxygen as needed Speech therapy eval Tolerating current diet Urinary retention Continue Walton catheter Voiding trial prior to discharge Acute kidney injury Likely multifactorial ATN/obstructive uropathy/hypotension --Renal USD: Unremarkable sonographic appearance of the kidneys. Decompressed urinary bladder with Walton catheter in place. Cr: 2.4> 3.8> 5.1> 6.95 Avoid nephrotoxic agents as able Monitor renal function Appreciate nephrology input: Recommends permanent cath placement for hemodialysis Poor urinary output Vascular surgery consulted Hypokalemia Replete and monitor Hypocalcemia Vitamin D deficiency PTH elevated Vitamin D level low Continue vitamin D supplements Monitor calcium levels Needs follow-up with endocrinology as outpatient Calcium levels improved Hold calcium supplements for now Monitor calcium levels Hx CAD/HLD: Diastolic CHF: Hypertension Continue statin Hold Coreg due to low blood pressure Diuretics held currently Hx SAROJ Continue 3 L oxygen at bedtime Microcytic anemia likely multifactorial: Recent GI bleed, renal failure, alcohol use No obvious bleeding issues Monitor CBC Anemia workup: Low iron, normal folate and B12 levels Transfuse as needed if hemoglobin less than 7 Recent GI bleedJanuary 2024 Esophageal ulcer/gastritis Continue on Protonix DVT Px: Heparin SQ Code Status Full code Admission and Anticipated Discharge Date Admission Date: November 18, 2024 Subjective Patient is seen and examined at bedside Renal function continues to worsen States having intermittent hallucinations Discussed with nephrology today Updated patient's family over the phone No improvement in urinary output Patient denies any chest pain, dyspnea, abdominal pain Still has minimal cough Review of Systems Review of Systems: All systems reviewed & are unremarkable except as noted in Subjective Physical Exam Physical Exam: Physical Exam: Vitals signs as noted above General Appearance: Obese, no apparent distress Head: normocephalic, Atraumatic Eyes: normal inspection, EOMI Neck: supple, Trachea midline Respiratory/Chest: Decreased breath sounds, CTA, No accessory muscle use Cardiovascular: S1, S2, No murmur Abdomen/GI:Soft, Non tender, protuberant, bowel sounds present Extremities/Musculoskeletal:normal inspection, 2+ LE edema Neurologic/Psych: Alert, awake, oriented, grossly no focal deficits Skin: normal color, warm Results & Data Results & Data Vital Signs (Past 12 Hours) Vital Signs Temp Pulse Resp BP Pulse Ox O2 Del Method O2 Flow Rate 11/28/24 11:33 36.9 C 88 18 156/91 H 90 Room Air 11/28/24 10:12 Room Air 11/28/24 08:07 36.6 C 96 H 20 139/75 93 Room Air 11/28/24 07:11 108 H 20 91 Nasal Cannula 2 11/28/24 02:53 36.6 C 88 20 137/78 93 Nasal Cannula Laboratory Results Short CBC 11/28/24 Range/Units 06:01 WBC 18.97 H (4.8-10.8) K/ul Hgb 8.1 L (14.0-18.0) g/dl Hct 26.6 L (42.0-52.0) % Plt Count 356 (130-400) K/uL [facility] 11/28/24 06:01 Sodium 136 Potassium 4.4 Chloride 103 Carbon Dioxide 22 BUN 60 H Creatinine 6.95 H* D Glucose 117 H Calcium 9.1 (4) Chronic obstructive pulmonary disease COPD type: COPD with acute exacerbation Qualified Code(s): J44.1 - Chronic obstructive pulmonary disease with (acute) exacerbation
[2024-11-28] MEDS: ACETAMINOPHEN 325 MG TAB PO PRN (20:32)
[2024-11-29 06:31] LABS: Hematocrit (blood only) 27.2 % (42.0-52.0); Hemoglobin 8.4 g/dl (14.0-18.0); Mean Corpuscular Hemoglobin 31.2 pg (25.0-34.0); Mean Corpuscular Hgb Conc 30.9 g/dL (32.0-36.0); Mean Corpuscular Volume 101.1 fL (80.0-100.0); Mean Platelet Volume 10.7 fL (9.4-12.4); Platelet Count 433 K/uL (130-400); RDW Coefficient of Variation 19.9 % (11.5-14.5); Red Blood Count 2.69 M/uL (4.70-6.10); White Blood Count 20.67 K/ul (4.8-10.8)
[2024-11-29 06:49] LABS: BUN Creatinine Ratio 8.6 (10-20); Calcium 8.9 mg/dl (8.6-10.3); Creatinine Clr Calc Pharmacy 12.8 ml/min; Potassium 4.3 mmol/L (3.5-5.1)
[2024-11-29] MEDS: METOPROLOL TARTRATE 1 MG/ML VIAL IV STA (07:03)
[2024-11-29 07:06] LABS: INR 1.1 (0.9-1.1); Prothrombin Time 11.8 Seconds (9.0-12.0)
[2024-11-29] MEDS: METOPROLOL TARTRATE 1 MG/ML VIAL IV ONE (07:38)
[2024-11-29 07:41] LABS: Magnesium 2.1 mg/dl (1.7-2.4)
[2024-11-29] MEDS: MAGNESIUM SULFATE / D5W 1 GM/100 ML BAG IV ONE (08:26)
[2024-11-29] MEDS: METOPROLOL TARTRATE 25 MG TAB PO SCH (08:53)
--- NOTE | 2024-11-29 09:51 | Cardiology Consultation ---
Date of Consultation November 29, 2024 Assessment & Plan (1) Atrial flutter with rapid ventricular response: (2) Nonobstructive atherosclerosis of coronary artery: (3) Volume overload: (4) Acute kidney failure: (5) Diastolic dysfunction: (6) Hypertensive heart disease: Plan Markedly complex ill appearing 59-year-old male admitted on 11/18/2024 with acute on chronic hypoxic/hypercarbic respiratory failure secondary to a COPD exacerbation. Course complicated by acute metabolic encephalopathy, alcohol withdrawal transiently requiring mechanical ventilation (11/18 to 11/20), aspiration pneumonia, urinary retention, acute kidney injury, and now atrial flutter with a rapid ventricular response likely secondary to renal failure and marked volume overload. I/O's +15.2 L overall this admission. Preliminary resting echocardiography today with hyperdynamic LV systolic function. Will discuss IV furosemide with Nephrology though patient most likely requires catheter placement and hemodialysis today. Agree with addition of low-dose metoprolol tartrate for heart rate control, 12.5 mg every 6 hours, holding for SBP less than 90 mmHg. Risks of anticoagulation appear greater than the benefit noting recent presentation with significant anemia and need for catheter placement. Abnormal LFT's, TFT's, and underlying COPD noted however IV amiodarone may be needed if unable to tolerate beta-yadiel therapy. Further recommendations as per Dr. Marlow. Supervising Physician Co-Signing Physician Notes This is a good sign attending attestation: Case reviewed with the advanced practitioner. I have personally performed a history and physical examination on the patient. I have reviewed the advanced practitioner's documentation on the date of service referenced in note, and I agree with, and take responsibility for the plan of care. Subjective: Patient seen in room 241-1. States that with the exception of feeling short of breath he otherwise feels well. He is sitting upright at 90 degrees. Exam: Cardiovascular: Regular rhythm, tachycardic, no murmurs, 23+ lower extremity edema bilaterally Data: EKG performed at 11/29/2024 at 6:54 AM and interpret independently: Wide-complex tachycardia with right bundle branch block morphology 158 bpm consistent with sinus tachycardia or atrial flutter, atrial activity difficult to discern -Compared to previous EKG tracings dating back to February,, the right bundle branch block is a chronic finding. Echocardiogram performed today reveals no regional wall motion abnormalities, hyperdynamic left ventricular systolic function, LVEF greater than 70%, no pericardial effusion, normal right ventricular chamber size and systolic function, no significant valvular disease TSH as obtained on 11/19/2024 with 8.76 mcg/mL, free T4 was normal at 0.70 Impression/ Plan: Multifactorial tachycardia, likely treatment via underlying issues including volume overload in the setting of anuric acute kidney injury, suspected recent aspiration pneumonia, alcohol withdrawal. Also patient missed at least 2 doses of his chronic treatment with carvedilol due to low blood pressure. -On the echocardiogram, the tissue Doppler suggests that this is a sinus tachyca rdia, however per review of telemetry on 11/29/2024 at 6:45 AM there is an abrupt change in the heart rate from 90 bpm to 150 bpm which is more suggestive of an atrial tachycardia or atrial flutter. -Patient with noted elevated TSH and elevated bilirubin. Blood pressure is marginal, systolic blood pressures in the 80s and 90s and small doses of metoprolol did not result in improvement in heart rate. Use of digoxin limited due to kidney function until dialysis initiated. -With caution we will proceed with a trial of IV amiodarone. This may be successful with regards to converting his rhythm, and if he slows down a bit, it may be helpful with regards to helping discern the atrial activity with regards to whether this is atrial flutter or sinus tachycardia. -Will continue the previous order for metoprolol tartrate 12.5 mg by mouth every 6 hours with hold for heart rate less than 60 and systolic blood pressure less than 100 millimeters Hg. -Defer determination as to whether or not renal replacement therapy indicated to nephrology. -Ultimately I think that correcting his volume status will help with heart rate and therefore I think it is suitable to proceed with indwelling catheter placement if indicated from a nephrology standpoint. Garret Marlow DO History of Present Illness Reason for Consultation: Tachycardia Requesting Physician: Dr. Angel Carmichael MD Attending Physician: Dr. Angel Carmichael MD History of Present Illness Garret Jimenez is a complex 59-year-old male who presented to the [facility] ER on November 18, 2024 with a chief complaint of shortness of breath - acute on chronic hypoxic/hypercarbic respiratory failure, acute COPD exacerbation attributed to community-acquired pneumonia. Course complicated by acute metabolic encephalopathy, alcohol withdrawal, transiently requiring mechanical ventilation (11/18 to 11/20), aspiration pneumonia, urinary retention requiring Walton catheter placement, and acute kidney injury with creatinine rising to 8.2 g/dL as of this morning. Minimal urine output noted. Cumulative I's and O's are +15.2 L overall this admission. Weight up approximately 11 kg per chart review. Carvedilol discontinued on November 26, 2024 due to hypotension. On telemetry this morning, at 6:45:39, patient lapsed into what appears to be atrial flutter with ventricular rates in the 150s. EKG this AM is difficult to discern, with underlying chronic right bundle branch block, appearing to be atrial flutter. Patient hospitalized in September 2024, presenting with progressive weakness. Hemoglobin was as low as 4.7 g/dL on October 17, 2024. EGD on October 20, 2024 revealed a small hiatal hernia, one cratered esophageal ulcer with no stigmata of recent bleeding (gastroesophageal junction), LA grade C esophagitis, diffuse moderate inflammation found in the gastric antrum and in the gastric body. Colonoscopy with multiple polyps, nonbleeding hemorrhoids, diverticulosis in the sigmoid colon. Received 5 units of packed red blood cells. Additional Medical Problems: Nonobstructive coronary artery disease via March 09, 2023 cardiac catheterization, after presenting with chest pain and elevated troponin, multiple significant risk factors. Chronic alcohol use, reporting intake of 12 beers per day, unknown amount of vodka a few days per week COPD with chronic tobacco use Obstructive sleep apnea, CPAP with supplemental oxygen Hypertension, hypertensive heart disease Diastolic dysfunction Dyslipidemia Peripheral arterial disease with bilateral renal artery stenosis, not prescribed TONIA/ARB due to PAU Social History: Smoker 1/2 ppd. Alcohol: 12 pack/day plus vodka. 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 Lives in [place]. Family History: Positive for CAD, diabetes. Allergies Allergy/AdvReac Type Severity Reaction Status Date / Time TONIA Inhibitors AdvReac Severe ALESSANDRO Verified 01/13/24 09:28 ARB-Angiotensin Receptor AdvReac Severe ALESSANDRO Verified 12/28/23 09:35 Antagonist prednisone AdvReac Mild "jitterines Verified 12/28/23 09:35 s" Home Medications Medication Instructions Recorded Confirmed Type aspirin 81 mg tablet,delayed 81 mg PO QAM #30 tabs 03/09/23 11/18/24 Rx release atorvastatin 80 mg tablet 80 mg PO QAM 03/16/23 11/18/24 History baclofen 10 mg tablet 10 mg PO TID PRN Muscle Spasm 06/09/23 11/18/24 History ipratropium 0.5 mg-albuterol 3 mg 3 ml inhalation Q6H PRN 06/11/23 11/18/24 Rx (2.5 mg base)/3 mL nebulization wheezing/severe shortness of soln breath #90 mL furosemide 20 mg tablet 20 mg PO QAM 10/14/23 11/18/24 History potassium chloride 20 mEq 20 meq PO QAM 10/14/23 11/18/24 History tablet,extended release folic acid 1 mg tablet 1 mg PO QAM #30 tabs 12/07/23 11/18/24 Rx fluticasone fur. 200 mcg-umeclid 1 inh inhalation QAM 12/28/23 11/18/24 History 62.5 mcg-vilant 25 mcg inhalat.powder (Trelegy Ellipta) lorazepam 1 mg tablet 1 mg PO Q6 PRN Anxiety 10/18/24 11/18/24 History sertraline 50 mg tablet 50 mg PO QAM 10/18/24 11/18/24 History tramadol 50 mg tablet 50 mg PO Q6 PRN Pain 10/18/24 11/18/24 History carvedilol 3.125 mg tablet (Coreg) 3.125 mg PO BID #60 tabs 10/21/24 11/18/24 Rx multivitamin with folic acid 400 1 tab PO QAM 30 days #30 tabs 10/21/24 11/18/24 Rx mcg tablet (Daily-Karen (with folic acid)) nicotine 7 mg/24 hr daily 1 patch transdermal QAM #28 ea 10/21/24 11/18/24 Rx transdermal patch pantoprazole 40 mg tablet,delayed 40 mg PO UD #37 tabs 10/21/24 11/18/24 Rx release thiamine HCl (vitamin B1) 100 mg 100 mg PO QAM 30 days #30 tabs 10/21/24 11/18/24 Rx tablet Patient History Medical History On home oxygen therapy 2 LPM at Acute respiratory failure with hypoxia hospitalized at [facility] November 2023 for this, still having some shortness of breath with activity, at rest is okay Hepatic steatosis CAD (coronary artery disease) GERD (gastroesophageal reflux disease) controlled, stable per pt Kidney disease following with [facility] Nephrology. Sleep apnea no device Plaque psoriasis Hx of seasonal allergies Spinal stenosis History of shingles 05/2022, PRN gabapentin for chronic right eye irritation/pain from shingles Surgical History History of cardiac catheterization 02/2023 [facility]. no stents. History of back surgery lumbar > "bone spur shaving" Hx of arthroscopic knee surgery Left Hx of foot surgery Left Hx of inguinal hernia repair History of esophagogastroduodenoscopy (EGD) Family History Father Diabetes Social History Smoking Status: Current every day smoker Tobacco Type: Cigarettes Cigarettes Per Day: .5 pack a day; Second Hand Exposure: No; Do You Dip or Chew Tobacco: No; Hx Alcohol Use: Yes Alcohol type: hard liquor Alcohol Intake Frequency: 4 or More x per/Week Alcohol Intake Frequency Comment: 2-12 beers 5x/week Hx Substance Use: No Preferred Language: Slovenian Communication Ability: Impaired Insurance Processor Required: No Beliefs That Will Affect Care: None Current Living Situation: Alone and Family Current Living Situation Comment: lives with mom Other Information That Helps Us Care for You: Yes Feels Safe at Home: Yes Safety Concerns: Feels Safe At This Time Assistive Devices: Cane and Nebulizer Review of Systems Review of Systems: Unable to be obtained due to altered mental status Physical Exam Physical Exam: General: Tachypneic HENT: Normocephalic. Atraumatic. Eyes: PER. Conjunctiva pink, sclera clear. Neck: JVD. HJR Heart: Somewhat distant heart sounds, regular, tachycardic. No obvious murmur. Lungs: Scattered rhonchi/rales. No wheeze. Abdomen: +BS. Firm. Distended. No overt organomegaly. Extremities: 2-3+ bilateral lower extremity edema. No cyanosis. Neuro: No focal deficits. Pulses: posterior tibial=0/4. Results & Data Vital Signs (Past 12 Hours) Vital Signs Temp Pulse Pulse Resp BP BP Pulse Ox 11/29/24 07:53 144 H 106/69 11/29/24 07:39 36.3 C L 150 H 22 107/74 95 11/29/24 07:38 150 H 107/74 11/29/24 07:37 151 H 107/74 11/29/24 07:20 90 11/29/24 07:03 158 H 111/76 11/29/24 03:05 36.8 C 87 16 146/85 H 92 11/28/24 23:15 36.6 C 83 16 121/80 95 O2 Del Method O2 Flow Rate 11/29/24 07:53 11/29/24 07:39 Nasal Cannula 4 11/29/24 07:38 11/29/24 07:37 11/29/24 07:20 11/29/24 07:03 11/29/24 03:05 Nasal Cannula 2 11/28/24 23:15 Nasal Cannula 2 Laboratory Results Coagulation 11/29/24 Range/Units 05:57 PT 11.8 (9.0-12.0) Seconds CBC 11/29/24 Range/Units 05:57 WBC 20.67 H (4.8-10.8) K/ul RBC 2.69 L (4.70-6.10) M/uL Hgb 8.4 L (14.0-18.0) g/dl Hct 27.2 L (42.0-52.0) % Plt Count 433 H (130-400) K/uL Comprehensive Metabolic Panel 11/29/24 Range/Units 05:57 Sodium 134 L (136-145) mmol/L Potassium 4.3 (3.5-5.1) mmol/L Chloride 102 (98-107) mmol/L Carbon Dioxide 20 L (21-32) mmol/L BUN 71 H (6-23) mg/dl Creatinine 8.23 H* D (0.6-1.4) mg/dl Glucose 95 (70-99(Fasting)) mg/dl Calcium 8.9 (8.6-10.3) mg/dl Intake and Output 11/28/24 11/29/24 11/29/24 22:59 06:59 14:59 Intake Total 100 / 500 100 / 100 Output Total 101 / 126 Balance - 100 / 374 100 / 100 Intake: IV 100 / 200 100 / 100 Magnesium Sulfate / D5w 1 gm In 100 / 100 100 ml @ 50 mls/hr IV ONE ONE Rx#:[id number] Piperacillin/Tazobactam 4.5 gm 100 / 200 In 100 ml @ 25 mls/hr IV Q12 MARANDA Rx#:[id number] Output: Urine Amount (Catheter) 100 / 125 Walton/Indwelling 100 / 125 # Bowel Movements Other: Weight 122.8 kg Weight Measurement Method Built in [facility] Diagnostic Findings March 09, 2023 Coronary Anatomy ([facility], Dr. Bond): Dominant: Co-Dominant Left Main (% Stenosis): Normal LAD (% Stenosis): Proximal (20%) and Mid (30% focal stenosis immediately distal to D1) D1 (% Stenosis): Mid (30%) Circumflex (% Stenosis): Mid (40% distal to OM1, followed by diffuse luminal irregularities, 20%) and Distal (30%) OM1 (% Stenosis): Proximal (20%) OM2 (% Stenosis): Ostial (20%) and Mid (10%, Small vessel) OM3 (% Stenosis): Normal (Small vessel) L PL1 (% Stenosis): Proximal (30%, large vessel) L PL2 (% Stenosis): Normal (Diminutive, 1 mm vessel) L PDA (% Stenosis): Normal (Diminutive, 1 mm vessel) RCA (% Stenosis): Proximal (10%) and Mid (Diffusely diseased with stenosis ranging up to 30%) R PDA (% Stenosis): Normal AM (% Stenosis): Ostial (40%)
--- NOTE | 2024-11-29 10:31 | Consultation ---
Date of Consultation November 29, 2024 Assessment & Plan (1) Acute kidney failure: Pt with ALESSANDRO, needs HD per nephrology. Pt discussed with Dr Melton, will perform permcath insertion tomorrow afternoon d/t scheduling restrictions today. Procedure discussed with pt. Pt agreeable. Advised Dr Shepherd that if pt requires HD today, he will need to contact mammal keeper to place temporary HD catheter today. History of Present Illness Reason for Consultation: R ICAS, retinal art occlusion Attending Physician: Angel Carmichael MD History of Present Illness 59 yo m with HTN, anemia, ETOH use, COPD, GERD, hypercholesterolemia, admitted with ALESSANDRO,, seen in consultation today for permcath insertion for HD. Pt states SOB/DUNBAR, but states is able to lie flat if needed. Also admits edema.Denies ALTAMIRANO, fever, chest pain, abd pain, N/V, rest pain, claudication, other complaints. Allergies Allergy/AdvReac Type Severity Reaction Status Date / Time TONIA Inhibitors AdvReac Severe ALESSANDRO Verified 01/13/24 09:28 ARB-Angiotensin Receptor AdvReac Severe ALESSANDRO Verified 12/28/23 09:35 Antagonist prednisone AdvReac Mild "jitterines Verified 12/28/23 09:35 s" Home Medications Medication Instructions Recorded Confirmed Type aspirin 81 mg tablet,delayed 81 mg PO QAM #30 tabs 03/09/23 11/18/24 Rx release atorvastatin 80 mg tablet 80 mg PO QAM 03/16/23 11/18/24 History baclofen 10 mg tablet 10 mg PO TID PRN Muscle Spasm 06/09/23 11/18/24 History ipratropium 0.5 mg-albuterol 3 mg 3 ml inhalation Q6H PRN 06/11/23 11/18/24 Rx (2.5 mg base)/3 mL nebulization wheezing/severe shortness of soln breath #90 mL furosemide 20 mg tablet 20 mg PO QAM 10/14/23 11/18/24 History potassium chloride 20 mEq 20 meq PO QAM 10/14/23 11/18/24 History tablet,extended release folic acid 1 mg tablet 1 mg PO QAM #30 tabs 12/07/23 11/18/24 Rx fluticasone fur. 200 mcg-umeclid 1 inh inhalation QAM 12/28/23 11/18/24 History 62.5 mcg-vilant 25 mcg inhalat.powder (Trelegy Ellipta) lorazepam 1 mg tablet 1 mg PO Q6 PRN Anxiety 10/18/24 11/18/24 History sertraline 50 mg tablet 50 mg PO QAM 10/18/24 11/18/24 History tramadol 50 mg tablet 50 mg PO Q6 PRN Pain 10/18/24 11/18/24 History carvedilol 3.125 mg tablet (Coreg) 3.125 mg PO BID #60 tabs 10/21/24 11/18/24 Rx multivitamin with folic acid 400 1 tab PO QAM 30 days #30 tabs 10/21/24 11/18/24 Rx mcg tablet (Daily-Karen (with folic acid)) nicotine 7 mg/24 hr daily 1 patch transdermal QAM #28 ea 10/21/24 11/18/24 Rx transdermal patch pantoprazole 40 mg tablet,delayed 40 mg PO UD #37 tabs 10/21/24 11/18/24 Rx release thiamine HCl (vitamin B1) 100 mg 100 mg PO QAM 30 days #30 tabs 10/21/24 11/18/24 Rx tablet Patient History Medical History On home oxygen therapy 2 LPM at Acute respiratory failure with hypoxia hospitalized at [facility] November 2023 for this, still having some shortness of breath with activity, at rest is okay Hepatic steatosis CAD (coronary artery disease) GERD (gastroesophageal reflux disease) controlled, stable per pt Kidney disease following with [facility] Nephrology. Sleep apnea no device Plaque psoriasis Hx of seasonal allergies Spinal stenosis History of shingles 05/2022, PRN gabapentin for chronic right eye irritation/pain from shingles Surgical History History of cardiac catheterization 02/2023 [facility]. no stents. History of back surgery lumbar > "bone spur shaving" Hx of arthroscopic knee surgery Left Hx of foot surgery Left Hx of inguinal hernia repair History of esophagogastroduodenoscopy (EGD) Family History Father Diabetes Social History Smoking Status: Current every day smoker Tobacco Type: Cigarettes Cigarettes Per Day: .5 pack a day; Second Hand Exposure: No; Do You Dip or Chew Tobacco: No; Hx Alcohol Use: Yes Alcohol type: hard liquor Alcohol Intake Frequency: 4 or More x per/Week Alcohol Intake Frequency Comment: 2-12 beers 5x/week Hx Substance Use: No Preferred Language: Luxembourger Communication Ability: Impaired [employer] Required: No Beliefs That Will Affect Care: None Current Living Situation: Alone and Family Current Living Situation Comment: lives with mom Other Information That Helps Us Care for You: Yes Feels Safe at Home: Yes Safety Concerns: Feels Safe At This Time Assistive Devices: Cane and Nebulizer Review of Systems Review of Systems: All systems reviewed & are unremarkable except as noted in HPI & below Physical Exam Constitutional: WD/WN, vitals as above + ill appearing and cooperative; not in distress Neck: trachea midline Respiratory: normal respiratory effort (on oxygen via NC) Auscultation: + diminished lung sounds and + crackles Cardiovascular: Rate/Rhythm: regular rate and regular rhythm Vessels: posterior tibial pulses present and dorsalis pedis pulses present; + abnormal peripheral pulses Extremities: normal capillary refill and + edema Gastrointestinal (Abdomen): Inspection/Auscultation: normal bowel sounds and + abdominal edema Percussion/Palpation: abdomen soft; abdomen nontender Musculoskeletal: no cyanosis or clubbing, extremities motor strength 5/5 Skin: no rashes, warm and dry Neurologic: moves all extremities and awake; no focal motor deficits and not confused Psychiatric: A+Ox3, euthymic affect Results & Data Vital Signs (Past 12 Hours) Vital Signs Temp Pulse Pulse Resp BP BP Pulse Ox 11/29/24 07:53 144 H 106/69 11/29/24 07:39 36.3 C L 150 H 22 107/74 95 11/29/24 07:38 150 H 107/74 11/29/24 07:37 151 H 107/74 11/29/24 07:20 90 11/29/24 07:03 158 H 111/76 11/29/24 03:05 36.8 C 87 16 146/85 H 92 11/28/24 23:15 36.6 C 83 16 121/80 95 O2 Del Method O2 Flow Rate 11/29/24 07:53 11/29/24 07:39 Nasal Cannula 4 11/29/24 07:38 11/29/24 07:37 11/29/24 07:20 11/29/24 07:03 11/29/24 03:05 Nasal Cannula 2 11/28/24 23:15 Nasal Cannula 2
[2024-11-29 12:11] LABS: Hepatitis B Surface Ab Quant < 3.00 mIU/mL (>or=10mIU/mL Immune); Hepatitis B Surface Antibody Non-Immune
--- NOTE | 2024-11-29 12:13 | Nephrology Progress Note ---
Date of Service November 29, 2024 Assessment & Plan (1) ALESSANDRO (acute kidney injury): Plan: patient with the acute kidney injury due to ischemic ATN in setting of sepsis and hypotension. Patient is being treated for pneumonia. Creatinine was 1 3 days ago but now up trending 8.2. patient is anuric now. Chest x-ray showed cardiomegaly and mild pulmonary vascular congestion. Electrolytes are stable. given worsening volume overload and being anuric, patient will benefit from dialysis. Risks and benefits were discussed. Patient has consented to dialysis. Vascular Surgery was requested place a PermCath. Will start dialysis once PermCath is placed ALESSANDRO tomorrow morning - Continue to monitor input/output - if patient becomes more hypoxic, okay to try IV Lasix - keep NPO after midnight. (2) Acute respiratory failure with hypoxia: Plan: likely due to pneumonia, COPD exacerbation and volume overload. Patient is getting antibiotics. We are holding off diuretics due to hypotension. Low threshold to give IV Lasix if worsening hypoxia. Plan Discussed case with Dr. Carmichael agrees with holding off dialysis today and start possibly tomorrow. Admission and Anticipated Discharge Date Admission Date: November 18, 2024 Subjective seen for acute renal failure. Main complaint is shortness of breath and leg swelling. patient is still anuric. Blood pressure is low and he has tachycardia Review of Systems 2 Review of Systems: All other systems were reviewed and negative except as noted in HPI Physical Exam 2 Physical Exam: General exam: mild respiratory distress HEENT: Pupils are equal and reactive to light Neck: No JVD, neck is supple trachea is midline Respiratory system: Clear breath sounds bilaterally. Gastrointestinal: Abdomen is soft, non distended, non tender, bowel sounds are present CVS: Regular rate and rhythm. No murmurs, rubs or gallops Musculoskeletal: No joint or muscle tenderness Extremities: Non tender, 1+ edema, peripheral pulses are present Neuro: Oriented, no tremors, no focal neurological deficits Skin: No rashes Results & Data Vital Signs (Past 12 Hours) Vital Signs Temp Pulse Pulse Resp BP BP Pulse Ox 11/29/24 10:57 36.5 C 151 H 22 90/50 L 95 11/29/24 10:14 11/29/24 07:53 144 H 106/69 11/29/24 07:39 36.3 C L 150 H 22 107/74 95 11/29/24 07:38 150 H 107/74 11/29/24 07:37 151 H 107/74 11/29/24 07:20 90 11/29/24 07:03 158 H 111/76 11/29/24 03:05 36.8 C 87 16 146/85 H 92 O2 Del Method O2 Flow Rate 11/29/24 10:57 Nasal Cannula 4 11/29/24 10:14 Nasal Cannula 4 11/29/24 07:53 11/29/24 07:39 Nasal Cannula 4 11/29/24 07:38 11/29/24 07:37 11/29/24 07:20 11/29/24 07:03 11/29/24 03:05 Nasal Cannula 2 Laboratory Results 11/29/24 05:57 11/29/24 05:57 WBC 20.67 H RBC 2.69 L MCV 101.1 H MCH 31.2 MCHC 30.9 L RDW Std Deviation 73.0 H RDW Coeff of Rogelio 19.9 H Plt Count 433 H MPV 10.7
[2024-11-29] MEDS ORDERED: AMIODARONE IV BOLUS & DRIP IV STA (15:21)
[2024-11-29] MEDS ORDERED: STAT IV Infusion **Titration per Protocol STA (15:21)
[2024-11-29] MEDS ORDERED: 0.2 MICRON FILTER SET 1 EACH IV STA (15:21)
--- NOTE | 2024-11-29 15:51 | Hospitalist Progress Note ---
Date of Service November 29, 2024 Assessment & Plan (1) Acute on chronic anemia: (2) Alcohol use disorder: (3) Obesity (BMI 30.0-34.9): (4) Chronic obstructive pulmonary disease: (5) Hypertension: (6) CAD (coronary artery disease): (7) GERD (gastroesophageal reflux disease): (8) Hepatic steatosis: (9) On home oxygen therapy: Plan Patient is a 59-year-old male with past medical history of COPD, SAROJ, hypertension, alcohol use disorder, coronary artery disease who presented to the hospital with shortness of breath. Acute on chronic hypoxic/hypercarbic respiratory failure Acute COPD exacerbation Community-acquired pneumonia Alcohol use disorder Alcohol withdrawal Acute metabolic encephalopathy Tobacco use disorder Patient presented to the hospital with shortness of breath; found to have COPD exacerbation. --CTA chest on admission did not show PE; found to have mild reticular and patchy opacity in dependent lung bases. --Overnight on November 18, patient became agitated; requiring multiple doses of Ativan for suspected alcohol withdrawal; ABG showed acute hypercapnic respiratory failure. Patient was transferred to ICU and mechanically ventilated. Extubated on November 20, 2024 --CT head showed no acute abnormality --Titrate supplemental oxygen to keep sats 88 to 92% --Continue on budesonide, formoterol nebs. --Continue antibiotics cefepime and doxycycline>> transition to Zosyn --Continue thiamine -- Monitor for alcohol withdrawal Continue thiamine, folic acid Complete gabapentin protocol Avoid sedating medications as able Persistent leukocytosis likely renal failure contributing Will repeat blood cultures today Consider infectious disease evaluation. Currently afebrile Wide-complex Possible atrial flutter with rapid ventricular response Bifascicular block Monitor and replete electrolytes as needed Continue to hold Coreg due to hypotension Started on low-dose metoprolol--continue with holding parameters Appreciate cardiology input Started on IV amiodarone Consider anticoagulation if appropriate Aspiration pneumonia Aspirated overnight on 11/23/2024 Aspiration precautions Continue Zosyn as above Supplemental oxygen as needed Speech therapy eval Tolerating current diet Urinary retention Continue Walton catheter Voiding trial prior to discharge Acute kidney injury Likely multifactorial ATN/obstructive uropathy/hypotension --Renal USD: Unremarkable sonographic appearance of the kidneys. Decompressed urinary bladder with Walton catheter in place. Cr: 2.4> 3.8> 5.1> 6.95> 8 point Avoid nephrotoxic agents as able Monitor renal function Appreciate nephrology input: Recommends permanent cath placement for hemodialysis Poor urinary output Vascular surgery consulted Plan for tunneled catheter placement tomorrow N.p.o. after midnight Hypokalemia Replete and monitor Hypocalcemia Vitamin D deficiency PTH elevated Vitamin D level low Continue vitamin D supplements Monitor calcium levels Needs follow-up with endocrinology as outpatient Calcium levels improved Hold calcium supplements for now Monitor calcium levels Hx CAD/HLD: Diastolic CHF: Hypertension Continue statin Hold Coreg due to low blood pressure Diuretics held currently Hx SAROJ Continue 3 L oxygen at bedtime Microcytic anemia likely multifactorial: Recent GI bleed, renal failure, alcohol use No obvious bleeding issues Monitor CBC Anemia workup: Low iron, normal folate and B12 levels Transfuse as needed if hemoglobin less than 7 Hemoglobin 8.4 today Recent GI bleedJanuary 2024 Esophageal ulcer/gastritis Continue on Protonix DVT Px: Heparin SQ Code Status Full code Disposition Needs rehab placement when medically stable Admission and Anticipated Discharge Date Admission Date: November 18, 2024 Subjective Patient is seen and examined at bedside States having shortness of breath, minimal cough and feels tired this morning Monitor showed wide-complex tachycardia Patient denies any chest pain, palpitations Discussed with cardiology and patient's family over the phone Also discussed with nephrology today Renal function continues to worsen Increased leg edema Review of Systems Review of Systems: All systems reviewed & are unremarkable except as noted in Subjective Physical Exam Physical Exam: Physical Exam: Vitals signs as noted above General Appearance: Obese, no apparent distress Head: normocephalic, Atraumatic Eyes: normal inspection, EOMI Neck: supple, Trachea midline Respiratory/Chest: Decreased breath sounds, minimal basal crackles Cardiovascular: Irregularly irregular, No murmur, tachycardia Abdomen/GI:Soft, Non tender, protuberant, bowel sounds present Extremities/Musculoskeletal:normal inspection, 2+ LE edema Neurologic/Psych: Alert, awake, oriented, grossly no focal deficits Skin: normal color, warm Results & Data Results & Data Vital Signs (Past 12 Hours) Vital Signs Temp Pulse Pulse Resp BP BP Pulse Ox 11/29/24 10:57 36.5 C 151 H 22 90/50 L 95 11/29/24 10:14 11/29/24 07:53 144 H 106/69 11/29/24 07:39 36.3 C L 150 H 22 107/74 95 11/29/24 07:38 150 H 107/74 11/29/24 07:37 151 H 107/74 11/29/24 07:20 90 11/29/24 07:03 158 H 111/76 O2 Del Method O2 Flow Rate 11/29/24 10:57 Nasal Cannula 4 11/29/24 10:14 Nasal Cannula 4 11/29/24 07:53 11/29/24 07:39 Nasal Cannula 4 11/29/24 07:38 11/29/24 07:37 11/29/24 07:20 11/29/24 07:03 Laboratory Results Short CBC 11/29/24 Range/Units 05:57 WBC 20.67 H (4.8-10.8) K/ul Hgb 8.4 L (14.0-18.0) g/dl Hct 27.2 L (42.0-52.0) % Plt Count 433 H (130-400) K/uL BMP 11/29/24 05:57 Sodium 134 L Potassium 4.3 Chloride 102 Carbon Dioxide 20 L BUN 71 H Creatinine 8.23 H* D Glucose 95 Calcium 8.9 (4) Chronic obstructive pulmonary disease COPD type: COPD with acute exacerbation Qualified Code(s): J44.1 - Chronic obstructive pulmonary disease with (acute) exacerbation
[2024-11-29] MEDS: AMIODARONE / D5W 150 MG/100 ML BAG IV STA (15:52)
[2024-11-29] MEDS: AMIODARONE / D5W 360 MG/200 ML BAG IV ONE (16:02)
[2024-11-29] MEDS: AMIODARONE / D5W 360 MG/200 ML BAG IV SCH (22:15)
--- NOTE | 2024-11-30 06:17 | Electrocardiogram Report ---
Test Reason : Blood Pressure : */* mmHG Vent. Rate : 158 BPM Atrial Rate : * BPM P-R Int : * ms QRS Dur : 130 ms QT Int : 320 ms P-R-T Axes : * -35 35 degrees QTcB Int : 518 ms Possible Supraventricular tachycardia Left axis deviation Right bundle branch block Abnormal ECG When compared with ECG of 23-Nov-2024 23:40, Vent. rate has increased by 43 bpm Confirmed by Qasim Olivier ([id number]) on 11/30/2024 6:16:48 AM Referred By: REFERRED SELF Confirmed By: Qasim Olivier
[2024-11-30 06:34] LABS: Hematocrit (blood only) 25.9 % (42.0-52.0); Mean Corpuscular Hemoglobin 31.5 pg (25.0-34.0); Mean Corpuscular Hgb Conc 30.9 g/dL (32.0-36.0); Mean Platelet Volume 10.7 fL (9.4-12.4); Nucleated RBC # (auto) 0.02 K/uL (0.00-0.12); Nucleated RBC % (auto) 0.1 %; Platelet Count 457 K/uL (130-400); RDW Standard Deviation 73.2 fL (36.4-46.3); Red Blood Count 2.54 M/uL (4.70-6.10); White Blood Count 22.59 K/ul (4.8-10.8)
[2024-11-30 07:11] LABS: Albumin Level 2.6 gm/dl (3.4-5.0); BUN Creatinine Ratio 8.6 (10-20); Bilirubin Direct 0.2 mg/dl (0-0.2); Bilirubin,Total 0.4 mg/dl (0.2-1.0); Calcium 8.8 mg/dl (8.6-10.3); Creatinine Clr Calc Pharmacy 11.3 ml/min; Magnesium 2.4 mg/dl (1.7-2.4); Potassium 4.4 mmol/L (3.5-5.1); Total Protein 6.1 gm/dl (6.0-8.3)
--- NOTE | 2024-11-30 11:20 | Cardiology Progress Note ---
Date of Service November 30, 2024 Assessment & Plan (1) Atrial flutter with rapid ventricular response: (2) Nonobstructive atherosclerosis of coronary artery: (3) Volume overload: (4) Acute kidney failure: (5) Diastolic dysfunction: (6) Hypertensive heart disease: Plan Markedly complex ill appearing 59-year-old male admitted on 11/18/2024 with acute on chronic hypoxic/hypercarbic respiratory failure secondary to a COPD exacerbation. Course complicated by acute metabolic encephalopathy, alcohol withdrawal transiently requiring mechanical ventilation (11/18 to 11/20), aspiration pneumonia, urinary retention, and acute kidney injury Cardiology consulted on 11/29/2024 due to tachycardia appearing to be secondary to atrial flutter versus atrial tachycardia with associated hypotension. Patient received low dose metoprolol tartrate and then IV amiodarone with return to sinus rhythm with frequent ectopy. Arrhythmias likely secondary to acute stressors noted above. Patient with marked volume overload and anuric. Catheter placement is planned today along with hemodialysis as per Nephrology. Risks of anticoagulation appear greater than the benefit noting recent presentation with significant anemia and need for catheter placement. Continue low-dose metoprolol tartrate. Continue IV amiodarone for now, until catheter placed and volume addressed. 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 Admission and Anticipated Discharge Date Admission Date: November 18, 2024 Supervising Physician Co-Signing Physician Notes Patient seen and personally examined. Care and management recommendations as outlined by advanced provider above. Management discussed and personally endorsed 59-year-old male with complex recent extended hospitalization with transient atrial arrhythmias likely secondary to acute issues with volume overload, renal failure and physical stressors. On IV amiodarone with plans at least transient course of oral amiodarone following initiation of dialysis, tolerance observed Subjective Late entry. Patient evaluated this morning around 8:15 AM Ongoing short of breath, cough, congestion. No chest pain. No tachypalpitations. Walton catheter in place, anuric. EKG: Sinus rhythm at 89 bpm with premature supraventricular complexes and fusion complexes, right bundle branch block, QTc 498 ms. Telemetry: Sinus rhythm in the 70s. November 29, 2024 TTE ([facility]): Tachycardic with ventricular rate of 150 bpm present during the study. No regional wall motion abnormalities. Hyperdynamic LV systolic function, EF greater than 70%. Normal RV size and function. No pericardial effusion. No significant valvular disease. Review of Systems Review of Systems: Unable to be obtained due to altered mental status Physical Exam Physical Exam: General: Alert to person and place. HENT: Normocephalic. Atraumatic. Eyes: PER. Conjunctiva pink, sclera clear. Neck: JVD. HJR Heart: Somewhat distant heart sounds, regular, 84 bpm. No murmur. Lungs: Breathing seems less labored today as compared to yesterday. Scattered rhonchi/rales. Abdomen: +BS. Firm. Distended. No overt organomegaly. Extremities: 3+ bilateral lower extremity edema. No cyanosis. Neuro: No focal deficits. Pulses: posterior tibial=0/4. Results & Data Vital Signs (Past 12 Hours) Vital Signs Temp Pulse Pulse Resp BP Pulse Ox O2 Del Method 11/30/24 11:03 80 11/30/24 10:19 Nasal Cannula 11/30/24 07:34 36.5 C 83 20 137/80 96 Room Air 11/30/24 07:17 83 16 97 Nasal Cannula 11/30/24 03:06 36.5 C 83 16 123/79 94 Nasal Cannula O2 Flow Rate 11/30/24 11:03 11/30/24 10:19 3 11/30/24 07:34 11/30/24 07:17 4 11/30/24 03:06 3 Laboratory Results Cardiac Enzymes 11/30/24 Range/Units 05:43 AST 27 (13-39) U/L CBC 11/30/24 Range/Units 05:43 WBC 22.59 H (4.8-10.8) K/ul RBC 2.54 L (4.70-6.10) M/uL Hgb 8.0 L (14.0-18.0) g/dl Hct 25.9 L (42.0-52.0) % Plt Count 457 H (130-400) K/uL Comprehensive Metabolic Panel 11/30/24 Range/Units 05:43 Sodium 135 L (136-145) mmol/L Potassium 4.4 (3.5-5.1) mmol/L Chloride 100 (98-107) mmol/L Carbon Dioxide 20 L (21-32) mmol/L BUN 80 H (6-23) mg/dl Creatinine 9.27 H* D (0.6-1.4) mg/dl Glucose 119 H (70-99(Fasting)) mg/dl Calcium 8.8 (8.6-10.3) mg/dl Direct Bilirubin 0.2 (0-0.2) mg/dl AST 27 (13-39) U/L ALT 26 (7-52) U/L Alkaline Phosphatase 154 H (34-104) U/L Total Protein 6.1 (6.0-8.3) gm/dl Albumin 2.6 L (3.4-5.0) gm/dl Intake and Output 11/29/24 11/30/24 11/30/24 22:59 06:59 14:59 Intake Total 100 / 720 300 / 720 200 / 200 Output Total 51 / 96 Balance 80 / 624 249 / 624 200 / 200 Intake: IV 100 / 600 300 / 600 200 / 200 Amiodarone / D5w 150 mg In 100 100 / 100 ml @ 600 mls/hr IV NOW STA Rx#: [id number] Amiodarone / D5w 360 mg In 200 200 / 200 200 / 200 ml @ 0.5 MG/MIN 16.667 mls/hr IV .Q12H MARANDA Rx#:[id number] Piperacillin/Tazobactam 4.5 gm 100 / 200 In 100 ml @ 25 mls/hr IV Q12 MARANDA Rx#:[id number] Output: Urine Amount (Catheter) Walton/Indwelling # Bowel Movements Other: Weight 122.8 kg 122.8 kg Weight Measurement Method Built in [facility]
--- NOTE | 2024-11-30 13:10 | History & Physical Bridge Note ---
Date of Service November 30, 2024 History & Physical Bridge Note I have examined the patient, reviewed the History & Physical and in the interval since the performance of the History & Physical I have noted the following changes of clinical significance: no changes noted
--- NOTE | 2024-11-30 13:25 | Pre Anesthesia Assessment ---
Date of Service November 30, 2024 Pre Sedation Assessment Vital Signs Temp Pulse Pulse Resp BP BP Pulse Ox 11/30/24 12:34 36.6 C 80 20 115/70 99 11/30/24 12:21 36.7 C 79 18 131/80 96 11/30/24 11:03 80 11/30/24 10:19 11/30/24 07:34 36.5 C 83 20 137/80 96 11/30/24 07:17 83 16 97 11/30/24 03:06 36.5 C 83 16 123/79 94 11/29/24 23:14 36.6 C 80 18 110/73 95 11/29/24 21:47 79 11/29/24 21:00 11/29/24 19:20 36.9 C 80 18 110/69 95 11/29/24 17:54 80 18 94 11/29/24 16:37 147 H 11/29/24 16:09 116/63 11/29/24 16:00 11/29/24 15:53 36.5 C 154 H 22 84/57 L 93 Pulse Ox O2 Del Method O2 Del Method O2 Flow Rate O2 Flow Rate 11/30/24 12:34 Nasal Cannula 3 11/30/24 12:21 Nasal Cannula 3 11/30/24 11:03 11/30/24 10:19 Nasal Cannula 3 11/30/24 07:34 Room Air 11/30/24 07:17 Nasal Cannula 4 11/30/24 03:06 Nasal Cannula 3 11/29/24 23:14 Nasal Cannula 3 11/29/24 21:47 11/29/24 21:00 Nasal Cannula 3 11/29/24 19:20 Nasal Cannula 3 11/29/24 17:54 Nasal Cannula 4 11/29/24 16:37 11/29/24 16:09 11/29/24 16:00 95 Nasal Cannula 3 11/29/24 15:53 Nasal Cannula 3 Cardiovascular RRR, no murmur, no edema Respiratory normal respiratory effort, lungs clear to auscultation Pre-Sedation Airway Assessment Smoking Status: Current every day smoker Hx Sleep Apnea: Yes Short, Thick Neck: No Thyromental Distance: > or= 3.5 Finger Breadths Oral Cavity: + Dental Abnormalities Mallampati Class: III ASA: ASA4 NPO Status Date of Last Intake of Fluids: 11/29/24 Date of Last Intake of Solid Food: 11/29/24 Procedure Planning Contraindications for Sedation: none Current Medications Reviewed: Yes Notes The planned sedation has been discussed with the patient. Informed Consent was obtained. I have identified the patient, determined the appropriateness of sedation and have assessed the patient immediately prior to the procedure. All medicine(s) and interventions are by my order.
[2024-11-30] MEDS: MIDAZOLAM HCL 1 MG/ML 2ML VIAL ONE (13:35)
[2024-11-30] MEDS: fentaNYL citrate PF 100 MCG/2 ML VIAL ONE (13:35)
[2024-11-30] MEDS: LIDOCAINE 1% LOCAL 20 ML VIAL ONE (13:45)
[2024-11-30] MEDS: HEPARIN SOD (PORCINE) 5,000 UNITS/ML VIAL ONE (13:45)
--- NOTE | 2024-11-30 13:52 | Operative Report ---
Post Operative Report Pre & Post Diagnosis Operation Date: 11/30/24 13:00 Pre-Op Diagnosis: Acute Kidney Injury Post-Op Diagnosis: Acute Kidney Injury I identified the patient and participated in the time-out.: Yes Procedure Operation Date: 11/30/24 13:00 Actual Procedures p Perm Catheter Placement,Right Internal Jugular Approach,Ultrasound Localization of Right Internal Jugular Vein,Fluoroscopy for Positioning,Moderate Sedation [id number](Right) - David Kumar MD Surgeon David Kumar MD Stave Grader none Estimated Blood Loss 5 Findings Consistent with Post-Op Diagnosis Specimens none Anesthesia Type RN Sedation Complications none Disposition Accompanied Patient To Recovery: No Disposition: Recovery Room Indications This is a 59-year-old gentleman with acute kidney injury in need of dialysis. He has no access for dialysis. PermCath was recommended I have discussed the risks options and benefits of the procedure with the patient. The patient understands the risks options and benefits and agrees to the procedure. Description of Procedure Patient was taken to the angio suite and placed in the supine position. The right side of the neck and chest wall were prepped and draped in a sterile manner. The patient was identified and a timeout performed. Local anesthesia was then administered to the appropriate areas of the neck and chest wall. Ultrasound was then used to locate the right internal jugular vein. The vein compressed easily, had no filing defects, and was patent. The vein was then punctured under direct ultrasound imaging. A guidewire was then passed centrally under fluoroscopic imaging. A stab wound was then made in the anterior chest wall and a 19 cm permcath was passed from the stab wound on the chest wall to the puncture site on the neck. The puncture site was then dilated till the 14Fr peel away sheath was inserted. The permcath was then inserted through the sheath to a central position in the distal superior vena cava. The peel away sheath was then removed. The catheter was then sutured in place using nylon sutures. The puncture was then closed using a 4-0 Vicryl subcuticular suture. Dermabond was used for a dressing on the puncture site. Both ports aspirated and flushed easily and were then packed with heparin. A sterile dressing was applied to the catheter. The patient left the operation room in satisfactory condition and tolerated the procedure well. All needle and sponge counts were correct at the end of the procedure. I attest to the content of the Intraoperative Record and any orders documented therein. Any exceptions are noted below.
--- NOTE | 2024-11-30 13:52 | Post Anesthesia Assessment ---
Date of Service November 30, 2024 Post Sedation Assessment Vital Signs Temp Pulse Pulse Resp BP BP Pulse Ox 11/30/24 13:50 80 20 103/66 97 11/30/24 13:45 82 20 100/62 100 11/30/24 13:40 82 20 103/74 100 11/30/24 13:35 84 20 104/72 100 11/30/24 13:30 76 20 120/72 97 11/30/24 13:25 78 20 107/72 97 11/30/24 12:34 36.6 C 80 20 115/70 99 11/30/24 12:21 36.7 C 79 18 131/80 96 11/30/24 11:03 80 11/30/24 10:19 11/30/24 07:34 36.5 C 83 20 137/80 96 11/30/24 07:17 83 16 97 11/30/24 03:06 36.5 C 83 16 123/79 94 11/29/24 23:14 36.6 C 80 18 110/73 95 11/29/24 21:47 79 11/29/24 21:00 11/29/24 19:20 36.9 C 80 18 110/69 95 11/29/24 17:54 80 18 94 11/29/24 16:37 147 H 11/29/24 16:09 116/63 11/29/24 16:00 11/29/24 15:53 36.5 C 154 H 22 84/57 L 93 Pulse Ox O2 Del Method O2 Del Method O2 Flow Rate O2 Flow Rate 11/30/24 13:50 Oxymask 3 11/30/24 13:45 Oxymask 4 11/30/24 13:40 Oxymask 4 11/30/24 13:35 Oxymask 4 11/30/24 13:30 Oxymask 4 11/30/24 13:25 Nasal Cannula 3 11/30/24 12:34 Nasal Cannula 3 11/30/24 12:21 Nasal Cannula 3 11/30/24 11:03 11/30/24 10:19 Nasal Cannula 3 11/30/24 07:34 Room Air 11/30/24 07:17 Nasal Cannula 4 11/30/24 03:06 Nasal Cannula 3 11/29/24 23:14 Nasal Cannula 3 11/29/24 21:47 03/11/25 21:00 Nasal Cannula 3 11/29/24 19:20 Nasal Cannula 3 11/29/24 17:54 Nasal Cannula 4 11/29/24 16:37 11/29/24 16:09 11/29/24 16:00 95 Nasal Cannula 3 11/29/24 15:53 Nasal Cannula 3 Recovery Score Activity: Moves 4 extremities Respiration: Deep Breath/Cough Circulation: +/-20% PreAnes Value Consciousness: Arouseable (by name) Oxygen Saturation: O2 needed for >90% Post Anesthesia Score: 8 Discharge Sedation Level of Care: Fast Track Phase II Post Sedation Plan On clinical assessment, the patient appears to have tolerated the sedation without complications. Patient is recovering as anticipated. Patient will continue to be monitored by nursing and may be discharged when sedation discharge criteria are met per below protocol. Upon Completions of procedure up to 15 minutes continue every 5 minute vital signs and the P.A.R. score; then discharge to a Phase I or Fast Track to Phase II per the following guidelines: * Discharge Patient to appropriate Phase II area if PAR is 8 or greater or r eturn to pre- procedure baseline. The post - procedure orders will be as directed. * If PAR score is less than 8 or not return to pre-procedure baseline then patient will follow Phase I monitoring till PAR is reached for Phase II. The Phase I may be done in procedure room or may call to secure a Phase I area. * If naloxone or flumazenil are used for reversal, hold in Phase I for continued monitoring from when last reversal dose was given for a minimum of 60 minutes or longer pending the nurse and/or physician discretion of patient condition before discharge to Phase II. Please call the Sedation Physician to re-evaluate and complete post-note for discharge to Phase II area. Do NOT discharge from procedure sedation or Phase 1 until post- sedation evaluation note is complete by procedure /sedation MD Sedation Discharge Instructions to be given to the patient at discharge to home.
[2024-11-30] MEDS: HEPARIN SOD (PORCINE) 1000 UNIT/ML IV ONE (14:54)
[2024-11-30] MEDS: HEPARIN SOD (PORCINE) 1000 UNIT/ML IV SCH (14:55)
--- NOTE | 2024-11-30 15:44 | Hospitalist Progress Note ---
Date of Service November 30, 2024 Assessment & Plan (1) Acute on chronic anemia: (2) Alcohol use disorder: (3) Obesity (BMI 30.0-34.9): (4) Chronic obstructive pulmonary disease: (5) Hypertension: (6) CAD (coronary artery disease): (7) GERD (gastroesophageal reflux disease): (8) Hepatic steatosis: (9) On home oxygen therapy: Plan Mr. Jimenez is a 59-year-old male with past medical history of COPD, SAROJ, hypertension, alcohol use disorder, coronary artery disease who presented to the hospital with shortness of breath and found to be in acute on chronic hypoxic/hypercarbic resp failure. He was noted to be agitated and intubated on 11/18 given progressive hypercapnic failure. #Acute kidney injury likely multifactorial ATN/obstructive uropathy/hypotension #anion gap metabolic acidosis iso renal failure #Anuria --Renal USD: Unremarkable sonographic appearance of the kidneys. Decompressed urinary bladder with Walton catheter in place. Cr: 2.4> 9.27 this am Avoid nephrotoxic agents as able Monitor renal function Nephrology following -s/p TDC 11/30 Plan for HD session for volume removal #Acute on chronic hypoxic/hypercarbic respiratory failure #Acute COPD exacerbation #Septic shock resolved #Aspiration pneumonitis #Community-acquired pneumonia chronically on 3L NC Patient presented to the hospital with shortness of breath; found to have COPD exacerbation. --CTA chest on admission did not show PE; found to have mild reticular and patchy opacity in dependent lung bases. --Overnight on November 18, patient became agitated; requiring multiple doses of Ativan for suspected alcohol withdrawal; ABG showed acute hypercapnic respiratory failure. Patient was transferred to ICU and mechanically ventilated. Extubated on November 20, 2024 Procalcitonin 0.98 Nasal MRSA negative Respiratory BioFire negative for everything on 11/18/2024 discontinue antibiotics (completed nearly 14 days) --Titrate supplemental oxygen to keep sats 88 to 92% --Continue on budesonide, formoterol nebs. Speech eval without signs of dysphagia #Leukocytosis Persistent leukocytosis likely renal failure contributing BCx with NGTD CTM low threshold for c diff testing ; however currently no abdominal pain, diarrhea #Alcohol use disorder #Alcohol withdrawal #Acute metabolic encephalopathy CT head showed no acute abnormality completed alcohol withdrawal taper Continue thiamine, folic acid Complete gabapentin protocol Avoid sedating medications as able #Wide-complex tachycardia suspect possible atrial flutter with rapid ventricular response #Bifascicular block Monitor and replete electrolytes as needed discontinued Coreg due to hypotension Continue of low dose metoprolol Appreciate cardiology input Continue on IV amiodarone holding on AC 2/2 risk at this time #Tobacco use disorder [id number] smoking history, currently smoking half a pack a day. #Hypokalemia resolved Replete and monitor #Hypocalcemia #Vitamin D deficiency PTH elevated Vitamin D level low Continue vitamin D supplements Monitor calcium levels Needs follow-up with endocrinology as outpatient Calcium levels improved Hold calcium supplements for now Monitor calcium levels #Coronary artery disease #Heart failure with preserved EF #Hypertension Continue statin Hold Coreg due to low blood pressure Diuretics held currently--volume control with HD # SAROJ Continue 3 L oxygen at bedtime #Chronic microcytic anemia likely multifactorial: Recent GI bleed, renal failure, alcohol use No obvious bleeding issues Monitor CBC Anemia workup: Low iron, normal folate and B12 levels Transfuse as needed if hemoglobin less than 7 #Recent GI bleedJanuary 2024 #Esophageal ulcer/gastritis Continue on Protonix DVT Px: Heparin SQ Code Status Full code Disposition Needs rehab placement when medically stable Admission and Anticipated Discharge Date Admission Date: November 18, 2024 Subjective Evaluated at bedside Denies any new symptoms, however, reports some anxiety over new meds and HD starting Denies chest pain or palpitations Reports some dyspnea and congestion, but nothing worsening symptomatically Physical Exam Constitutional: WD/WN, vitals as above anxious gentleman Respiratory: diminished on 3L NC, Cardiovascular: RRR, 3+pitting edema Results & Data Results & Data Vital Signs (Past 12 Hours) Vital Signs Temp Pulse Pulse Pulse Resp BP BP 11/30/24 15:30 75 92/57 L 11/30/24 15:13 77 11/30/24 15:00 75 106/70 11/30/24 14:30 76 95/63 L 11/30/24 14:09 84 117/67 11/30/24 14:03 36.2 C L 84 11/30/24 13:50 80 20 11/30/24 13:45 82 20 11/30/24 13:40 82 20 11/30/24 13:35 84 20 11/30/24 13:30 76 20 11/30/24 13:25 78 20 11/30/24 12:34 36.6 C 80 20 115/70 11/30/24 12:21 36.7 C 79 18 131/80 11/30/24 11:03 80 11/30/24 10:19 11/30/24 07:34 36.5 C 83 20 137/80 11/30/24 07:17 83 16 BP Pulse Ox O2 Del Method O2 Flow Rate 11/30/24 15:30 11/30/24 15:13 11/30/24 15:00 11/30/24 14:30 11/30/24 14:09 11/30/24 14:03 11/30/24 13:50 103/66 97 Oxymask 3 11/30/24 13:45 100/62 100 Oxymask 4 11/30/24 13:40 103/74 100 Oxymask 4 11/30/24 13:35 104/72 100 Oxymask 4 11/30/24 13:30 120/72 97 Oxymask 4 11/30/24 13:25 107/72 97 Nasal Cannula 3 11/30/24 12:34 99 Nasal Cannula 3 11/30/24 12:21 96 Nasal Cannula 3 11/30/24 11:03 11/30/24 10:19 Nasal Cannula 3 11/30/24 07:34 96 Room Air 11/30/24 07:17 97 Nasal Cannula 4 Laboratory Results Short CBC 11/30/24 Range/Units 05:43 WBC 22.59 H (4.8-10.8) K/ul Hgb 8.0 L (14.0-18.0) g/dl Hct 25.9 L (42.0-52.0) % Plt Count 457 H (130-400) K/uL BMP 11/30/24 05:43 Sodium 135 L Potassium 4.4 Chloride 100 Carbon Dioxide 20 L BUN 80 H Creatinine 9.27 H* D Glucose 119 H Calcium 8.8 Liver Function 11/30/24 Range/Units 05:43 Total Bilirubin 0.4 (0.2-1.0) mg/dl Direct Bilirubin 0.2 (0-0.2) mg/dl AST 27 (13-39) U/L ALT 26 (7-52) U/L Alkaline Phosphatase 154 H (34-104) U/L Albumin 2.6 L (3.4-5.0) gm/dl Medications Administered Home Medications Medication Instructions Recorded Confirmed Last Taken aspirin 81 mg tablet,delayed 81 mg PO QAM #30 tabs 03/09/23 11/18/24 01/10/24 release atorvastatin 80 mg tablet 80 mg PO QAM 03/16/23 11/18/24 05/29/24 baclofen 10 mg tablet 10 mg PO TID PRN Muscle Spasm 06/09/23 11/18/24 Unknown ipratropium 0.5 mg-albuterol 3 mg 3 ml inhalation Q6H PRN 06/11/23 11/18/24 01/08/24 (2.5 mg base)/3 mL nebulization wheezing/severe shortness of soln breath #90 mL furosemide 20 mg tablet 20 mg PO QAM 10/14/23 11/18/24 05/29/24 potassium chloride 20 mEq 20 meq PO QAM 10/14/23 11/18/24 05/29/24 tablet,extended release folic acid 1 mg tablet 1 mg PO QAM #30 tabs 12/07/23 11/18/24 05/29/24 fluticasone fur. 200 mcg-umeclid 1 inh inhalation QAM 12/28/23 11/18/24 05/28/24 62.5 mcg-vilant 25 mcg inhalat.powder (Trelegy Ellipta) lorazepam 1 mg tablet 1 mg PO Q6 PRN Anxiety 10/18/24 11/18/24 Unknown sertraline 50 mg tablet 50 mg PO QAM 10/18/24 11/18/24 Unknown tramadol 50 mg tablet 50 mg PO Q6 PRN Pain 10/18/24 11/18/24 Unknown carvedilol 3.125 mg tablet (Coreg) 3.125 mg PO BID #60 tabs 10/21/24 11/18/24 Unknown multivitamin with folic acid 400 1 tab PO QAM 30 days #30 tabs 10/21/24 11/18/24 Unknown mcg tablet (Daily-Karen (with folic acid)) nicotine 7 mg/24 hr daily 1 patch transdermal QAM #28 ea 10/21/24 11/18/24 Unknown transdermal patch pantoprazole 40 mg tablet,delayed 40 mg PO UD #37 tabs 10/21/24 11/18/24 Unknown release thiamine HCl (vitamin B1) 100 mg 100 mg PO QAM 30 days #30 tabs 10/21/24 11/18/24 Unknown tablet Active Medications Generic Name Dose Route Start Last Admin Trade Name Freq PRN Reason Stop Dose Admin Acetaminophen 650 mg 11/21/24 12:53 11/28/24 20:32 Acetaminophen 325 Mg Tab PO 12/21/24 12:52 650 mg Q4H PRN Administration Pain Aspirin 81 mg 11/19/24 11:30 11/30/24 09:09 Aspirin 81 Mg Chew PO 12/19/24 11:29 81 mg QAM MARANDA Administration Atorvastatin Calcium 80 mg 11/22/24 09:00 11/29/24 08:31 Atorvastatin 40 Mg Tab PO 12/22/24 08:59 80 mg QAM MARANDA Administration Budesonide 0.5 mg 11/18/24 20:50 11/30/24 07:17 Budesonide 0.5 Mg/2 Ml Vial (Pulmicort) [facility] 12/18/24 20:49 0.5 mg BIDR MARANDA Administration Calcium Carbonate 500 mg 11/21/24 09:00 11/27/24 20:18 Calcium Carbonate 500 Mg Chewable Tab PO 12/21/24 08:59 500 mg TID MARANDA Administration Carvedilol 3.125 mg 11/26/24 08:00 11/26/24 08:42 Carvedilol 3.125 Mg Tab PO 12/26/24 07:59 3.125 mg BIDM MARANDA Administration Folic Acid 1 mg 11/19/24 09:00 11/30/24 08:09 Folic Acid 1 Mg Tab PO 12/19/24 08:59 1 mg QAM MARANDA Administration Formoterol Fumarate 20 mcg 11/18/24 20:50 11/30/24 07:17 Formoterol 20 Mcg/2 Ml Vial NEB 12/18/24 20:49 20 mcg BIDR MARANDA Administration Heparin Sodium (Porcine) 5,000 units 11/19/24 09:00 11/30/24 08:08 Heparin Sod 5,000 Unit/0.5 Ml Vial SQ 12/19/24 08:59 5,000 units Q12 MARANDA Administration Hydroxyzine HCl 10 mg 11/27/24 19:55 11/28/24 20:21 Hydroxyzine Hcl 10 Mg Tab PO 12/27/24 19:54 10 mg QID PRN Administration Anxiety Piperacillin Sod/Tazobactam Sod 4.5 gm in 100 mls @ 25 mls/hr 11/27/24 21:00 11/30/24 12:18 Zosyn IV 11/30/24 23:59 Infused Q12 MARANDA Infusion Protocol Amiodarone HCl/Dextrose 360 mg in 200 mls @ 16.667 mls/hr 11/29/24 21:30 11/30/24 10:39 Nexterone / D5w IV 12/29/24 21:29 0.5 mg/min .Q12H MARANDA 16.7 mls/hr Administration 0.5 MG/MIN Levalbuterol HCl 1.25 mg 11/18/24 20:46 11/22/24 15:17 Levalbuterol 1.25 Mg/3 Ml Neb NEB 12/18/24 20:45 1.25 mg Q4H PRN Administration Shortness Of Breath Or Wheezing Menthol 1 geronimo 11/20/24 20:00 11/21/24 02:06 Cough Drop (Sugar Free) Geronimo 24 Geronimo/1 Box BUCCAL 12/20/24 19:59 1 geronimo Q3H PRN Administration Sore Throat Metoprolol Tartrate 12.5 mg 11/29/24 08:00 11/30/24 12:07 Metoprolol Tartrate 25 Mg Tab PO 12/29/24 07:59 12.5 mg Q6 MARANDA Administration Miscellaneous 1 each 11/22/24 08:59 11/30/24 08:05 Remove Nicoderm Patch N/A 12/22/24 08:58 1 each [id number] MARANDA Administration Multivitamins 1 tab 11/22/24 09:00 11/30/24 08:08 Multivitamin Tab PO 12/22/24 08:59 1 tab QAM MARANDA Administration Nicotine 1 patch 11/22/24 09:00 11/30/24 08:08 Nicotine 14 Mg/24 Hr Patch TD 12/22/24 08:59 1 patch QAM MARANDA Administration Nicotine Polacrilex 1 piece 11/27/24 15:34 11/27/24 15:46 Nicotine Polacrilex 2 Mg Gum MT 12/27/24 15:33 1 piece Q2H PRN Administration Cravings Pantoprazole Sodium 40 mg 11/22/24 09:00 11/30/24 08:06 Pantoprazole 40 Mg Tab PO 12/22/24 08:59 40 mg DAILY MARANDA Administration Polyethylene Glycol 17 gm 11/26/24 07:34 11/26/24 07:48 Polyethylene (Miralax) 17 Gm Pack PO 12/26/24 07:33 17 gm DAILY PRN Administration Constipation Sertraline HCl 50 mg 11/19/24 09:00 11/26/24 08:42 Sertraline Hcl 50 Mg Tablet PO 12/19/24 08:59 50 mg QAM MARANDA Administration Thiamine HCl 100 mg 11/22/24 09:00 11/30/24 08:09 Thiamine Hcl 100 Mg Tab PO 12/22/24 08:59 100 mg DAILY MARANDA Administration Vitamin D 125 mcg 11/22/24 09:00 11/30/24 08:08 Cholecalciferol 125 Mcg (5,000 Units) Tab PO 12/22/24 08:59 125 mcg QAM MARANDA Administration (4) Chronic obstructive pulmonary disease COPD type: COPD with acute exacerbation Qualified Code(s): J44.1 - Chronic obstructive pulmonary disease with (acute) exacerbation
--- NOTE | 2024-11-30 15:44 | Nephrology Progress Note ---
Date of Service November 30, 2024 Assessment & Plan (1) ALESSANDRO (acute kidney injury): Plan: patient with the acute kidney injury due to ischemic ATN in setting of sepsis and hypotension. Patient is being treated for pneumonia. Creatinine was 1 3 days ago but now up trending 8.2. patient is anuric now. Chest x-ray showed cardiomegaly and mild pulmonary vascular congestion. Electrolytes are stable. given worsening volume overload and being anuric, patient will benefit from dialysis. Risks and benefits were discussed. Patient has consented to dialysis. Vascular Surgery placed a PermCath on 11/30/24 and 1st dialysis session. - Continue to monitor input/output - if patient becomes more hypoxic, okay to try IV Lasix - keep NPO after midnight. (2) Acute respiratory failure with hypoxia: Plan: likely due to pneumonia, COPD exacerbation and volume overload. Patient is getting antibiotics. We are holding off diuretics due to hypotension. Low threshold to give IV Lasix if worsening hypoxia. Admission and Anticipated Discharge Date Admission Date: November 18, 2024 Subjective seen for acute renal failure requiring dialysis. Patient was sleepy this morning. He continues to have hypotension and intermittent tachycardia. He is on amiodarone drip by Cardiology. Legs are swollen. Patient is now on oxygen nasal cannula. Review of Systems 2 Review of Systems: All other systems were reviewed and negative except as noted in HPI Physical Exam 2 Physical Exam: General exam: mild respiratory distress HEENT: Pupils are equal and reactive to light Neck: No JVD, neck is supple trachea is midline Respiratory system: Clear breath sounds bilaterally. Gastrointestinal: Abdomen is soft, non distended, non tender, bowel sounds are present CVS: Regular rate and rhythm. No murmurs, rubs or gallops Musculoskeletal: No joint or muscle tenderness Extremities: Non tender, 1+ edema, peripheral pulses are present Neuro: Oriented, no tremors, no focal neurological deficits Skin: No rashes Results & Data Vital Signs (Past 12 Hours) Vital Signs Temp Pulse Pulse Pulse Resp BP BP 11/30/24 15:30 75 92/57 L 11/30/24 15:13 77 11/30/24 15:00 75 106/70 11/30/24 14:30 76 95/63 L 11/30/24 14:09 84 117/67 11/30/24 14:03 36.2 C L 84 11/30/24 13:50 80 20 11/30/24 13:45 82 20 11/30/24 13:40 82 20 11/30/24 13:35 84 20 11/30/24 13:30 76 20 11/30/24 13:25 78 20 11/30/24 12:34 36.6 C 80 20 115/70 11/30/24 12:21 36.7 C 79 18 131/80 11/30/24 11:03 80 11/30/24 10:19 11/30/24 07:34 36.5 C 83 20 137/80 11/30/24 07:17 83 16 BP Pulse Ox O2 Del Method O2 Flow Rate 11/30/24 15:30 11/30/24 15:13 11/30/24 15:00 11/30/24 14:30 11/30/24 14:09 11/30/24 14:03 11/30/24 13:50 103/66 97 Oxymask 3 11/30/24 13:45 100/62 100 Oxymask 4 11/30/24 13:40 103/74 100 Oxymask 4 11/30/24 13:35 104/72 100 Oxymask 4 11/30/24 13:30 120/72 97 Oxymask 4 11/30/24 13:25 107/72 97 Nasal Cannula 3 11/30/24 12:34 99 Nasal Cannula 3 11/30/24 12:21 96 Nasal Cannula 3 11/30/24 11:03 11/30/24 10:19 Nasal Cannula 3 11/30/24 07:34 96 Room Air 11/30/24 07:17 97 Nasal Cannula 4 Laboratory Results 11/30/24 05:43 11/30/24 05:43 WBC 22.59 H RBC 2.54 L MCV 102.0 H MCH 31.5 MCHC 30.9 L RDW Std Deviation 73.2 H RDW Coeff of Rogelio 20.0 H Plt Count 457 H MPV 10.7 Albumin 2.6 L
--- NOTE | 2024-12-01 06:02 | Electrocardiogram Report ---
Test Reason : Blood Pressure : */* mmHG Vent. Rate : 89 BPM Atrial Rate : 89 BPM P-R Int : 164 ms QRS Dur : 144 ms QT Int : 410 ms P-R-T Axes : 64 -24 23 degrees QTcB Int : 498 ms Poor data quality, interpretation may be adversely affected Sinus rhythm Right bundle branch block Abnormal ECG When compared with ECG of 29-Nov-2024 06:54, Sinus rhythm has replaced Supraventricular tachycardia Vent. rate has decreased by 69 bpm Confirmed by Qasim Olivier ([id number]) on 12/01/2024 6:02:14 AM Referred By: REFERRED SELF Confirmed By: Qasim Olivier
[2024-12-01 06:45] LABS: Hematocrit (blood only) 26.3 % (42.0-52.0); Hemoglobin 8.1 g/dl (14.0-18.0); Mean Corpuscular Hgb Conc 30.8 g/dL (32.0-36.0); Mean Corpuscular Volume 100.8 fL (80.0-100.0); Mean Platelet Volume 10.8 fL (9.4-12.4); Nucleated RBC # (auto) 0.03 K/uL (0.00-0.12); Nucleated RBC % (auto) 0.1 %; Platelet Count 496 K/uL (130-400); RDW Standard Deviation 73.5 fL (36.4-46.3); Red Blood Count 2.61 M/uL (4.70-6.10); White Blood Count 21.75 K/ul (4.8-10.8)
[2024-12-01 07:10] LABS: BUN Creatinine Ratio 7.5 (10-20); Calcium 8.8 mg/dl (8.6-10.3); Creatinine Clr Calc Pharmacy 14.8 ml/min; Magnesium 2.1 mg/dl (1.7-2.4); Phosphorus 5.3 mg/dl (2.5-4.9); Potassium 4.1 mmol/L (3.5-5.1)
[2024-12-01] MEDS: oxyCODONE HCL IR 5 MG TAB (IMMEDIATE RELEASE) PO PRN (08:24)
[2024-12-01] MEDS ORDERED: SODIUM CHLORIDE 0.9% 1,000 ML IV PRN (09:52)
--- NOTE | 2024-12-01 10:25 | Cardiology Progress Note ---
Date of Service December 01, 2024 Assessment & Plan (1) Atrial flutter with rapid ventricular response: (2) Nonobstructive atherosclerosis of coronary artery: (3) Volume overload: (4) Acute kidney failure: (5) Diastolic dysfunction: (6) Hypertensive heart disease: Plan Complex 59-year-old male admitted on 11/18/2024 with acute on chronic hypoxic/hypercarbic respiratory failure secondary to a COPD exacerbation. Course complicated by acute metabolic encephalopathy, alcohol withdrawal transiently requiring mechanical ventilation (11/18 to 11/20), aspiration pneumonia, urinary retention, and acute kidney injury. Patient anuric. Cardiology consulted on 11/29/2024 due to tachycardia appearing to be secondary to atrial flutter versus atrial tachycardia with associated hypotension. Arrhythmia likely secondary to acute stressors. Patient with marked volume overload. Catheter placed with dialysis initiated on 11/30. Recommendations: * Volume management as per Nephrology. * Continue low dose metoprolol tartrate * Transition IV amiodarone to oral. * Check EKG, QTc * Continue Aspirin * Atorvastatin on hold with use of amiodarone Admission and Anticipated Discharge Date Admission Date: November 18, 2024 Supervising Physician Co-Signing Physician Notes Patient seen and personally examined. Care and management as outlined by a dvanced provider above. Little change on examination but did undergo dialysis last night still with moderate volume overload. No further atrial arrhythmias with initial arrhythmias likely induced by acute illness. Plan as above Still requires further dialysis for volume management Transition amiodarone to oral with likely discontinuation on discharge or shortly after Subjective Patient seen and examined. Chart, medications, and telemetry reviewed. Sister at bedside. + Burning and tingling in legs. Confused. Denies chest pain, palpitations, orthopnea, PND, or edema. Review of Systems Review of Systems: Unable to be obtained due to altered mental status Physical Exam Physical Exam: General: Alert to person and place. Appears more comfortable. HENT: Normocephalic. Atraumatic. Eyes: PER. Conjunctiva pink, sclera clear. Neck: JVD. HJR Heart: Regular at 80 bpm. No murmur. Lungs: Scattered rhonchi/rales. No wheeze. Abdomen: +BS. Less firm. Distended. No overt organomegaly. Extremities: 2+ bilateral lower extremity edema. No cyanosis. Neuro: No focal deficits. Pulses: posterior tibial=0/4. Results & Data Vital Signs (Past 12 Hours) Vital Signs Temp Pulse Pulse Resp BP BP Pulse Ox 12/01/24 07:26 61 18 96 12/01/24 07:21 36.7 C 86 19 136/76 94 12/01/24 03:40 36.4 C L 78 22 115/68 96 11/30/24 23:03 37.0 C 93 H 15 109/68 95 O2 Del Method O2 Flow Rate 12/01/24 07:26 Nasal Cannula 3 12/01/24 07:21 Nasal Cannula 2 12/01/24 03:40 Nasal Cannula 3 11/30/24 23:03 Nasal Cannula 3 Laboratory Results CBC 12/01/24 Range/Units 06:05 WBC 21.75 H (4.8-10.8) K/ul RBC 2.61 L (4.70-6.10) M/uL Hgb 8.1 L (14.0-18.0) g/dl Hct 26.3 L (42.0-52.0) % Plt Count 496 H (130-400) K/uL Comprehensive Metabolic Panel 12/01/24 Range/Units 06:05 Sodium 137 (136-145) mmol/L Potassium 4.1 (3.5-5.1) mmol/L Chloride 99 (98-107) mmol/L Carbon Dioxide 28 (21-32) mmol/L BUN 53 H D (6-23) mg/dl Creatinine 7.05 H* D (0.6-1.4) mg/dl Glucose 113 H (70-99(Fasting)) mg/dl Calcium 8.8 (8.6-10.3) mg/dl Intake and Output 11/30/24 12/01/24 12/01/24 22:59 06:59 14:59 Intake Total 192.885 / 732.885 240 / 732.885 191.215 / 191.215 Output Total 101 / 102 1 / 102 Balance 91.885 / 630.885 239 / 630.885 191.215 / 191.215 Intake: IV 192.885 / 492.885 191.215 / 191.215 Amiodarone / D5w 360 mg In 200 192.885 / 392.885 191.215 / 191.215 ml @ 0.5 MG/MIN 16.667 mls/hr IV .Q12H MARANDA Rx#:[id number] Oral 240 / 240 Output: Urine Amount (Catheter) 100 / 100 Walton/Indwelling 100 / 100 # Bowel Movements 1 / 2 / 2 Other: Hemodialysis Ultrafiltration 2,000 Amount Weight 120.9 kg Weight Measurement Method Built in [facility] Diagnostic Findings Telemetry: Sinus rhythm in the 80's and 90's, currently 80 bpm. November 29, 2024 [facility] ([facility]): Tachycardic with ventricular rate of 150 bpm present during the study. No regional wall motion abnormalities. Hyperdynamic LV systolic function, EF greater than 70%. Normal RV size and function. No pericardial effusion. No significant valvular disease.
[2024-12-01] MEDS: HEPARIN SOD (PORCINE) 1000 UNIT/ML IV ONE (10:56)
--- NOTE | 2024-12-01 12:12 | Nephrology Progress Note ---
Date of Service December 01, 2024 Assessment & Plan (1) ALESSANDRO (acute kidney injury): Plan: patient with the acute kidney injury due to ischemic ATN in setting of sepsis and hypotension. Patient is being treated for pneumonia. Creatinine was 1 prior to admission but peaked at 8.2 and patient start dialysis. patient remains anuric. Chest x-ray showed cardiomegaly and mild pulmonary vascular congestion. Electrolytes are stable. given worsening volume overload and being anuric, patient will benefit from dialysis. Risks and benefits were discussed. Patient has consented to dialysis. Vascular Surgery placed a PermCath on 11/30/24 and 1st dialysis session. - Continue to monitor input/output - patient will be dialyzed today for 3 hours target UF 3 L (2) Acute respiratory failure with hypoxia: Plan: likely due to pneumonia, COPD exacerbation and volume overload. Patient is getting antibiotics. will optimize volume status with dialysis Admission and Anticipated Discharge Date Admission Date: November 18, 2024 Subjective seen for acute renal failure requiring dialysis. No shortness of breath. Legs are swollen. He had dialysis yesterday. He has visual hallucinations Review of Systems 2 Review of Systems: All other systems were reviewed and negative except as noted in HPI Physical Exam 2 Physical Exam: General exam: mild respiratory distress HEENT: Pupils are equal and reactive to light Neck: No JVD, neck is supple trachea is midline Respiratory system: Clear breath sounds bilaterally. Gastrointestinal: Abdomen is soft, non distended, non tender, bowel sounds are present CVS: Regular rate and rhythm. No murmurs, rubs or gallops Musculoskeletal: No joint or muscle tenderness Extremities: Non tender, 1+ edema, peripheral pulses are present Neuro: Oriented, no tremors, no focal neurological deficits Skin: No rashes Results & Data Vital Signs (Past 12 Hours) Vital Signs Temp Pulse Pulse Pulse Resp BP BP 12/01/24 12:00 75 111/72 12/01/24 11:30 65 115/71 12/01/24 11:00 75 111/75 12/01/24 10:47 82 111/75 12/01/24 10:42 36.8 C 61 83 12/01/24 09:00 12/01/24 07:26 61 18 12/01/24 07:21 36.7 C 86 19 136/76 12/01/24 07:00 85 12/01/24 03:40 36.4 C L 78 22 115/68 Pulse Ox O2 Del Method O2 Flow Rate 12/01/24 12:00 12/01/24 11:30 12/01/24 11:00 12/01/24 10:47 12/01/24 10:42 12/01/24 09:00 Nasal Cannula 2 12/01/24 07:26 96 Nasal Cannula 3 12/01/24 07:21 94 Nasal Cannula 2 12/01/24 07:00 12/01/24 03:40 96 Nasal Cannula 3 Laboratory Results 12/01/24 06:05 12/01/24 06:05 WBC 21.75 H RBC 2.61 L MCV 100.8 H MCH 31.0 MCHC 30.8 L RDW Std Deviation 73.5 H RDW Coeff of Rogelio 20.0 H Plt Count 496 H MPV 10.8 Phosphorus 5.3 H
[2024-12-01] MEDS: HEPARIN SOD (PORCINE) 1000 UNIT/ML IV SCH (14:45)
--- NOTE | 2024-12-01 15:58 | Hospitalist Progress Note ---
Date of Service December 01, 2024 Assessment & Plan (1) Acute on chronic anemia: (2) Alcohol use disorder: (3) Obesity (BMI 30.0-34.9): (4) Chronic obstructive pulmonary disease: (5) Hypertension: (6) CAD (coronary artery disease): (7) GERD (gastroesophageal reflux disease): (8) Hepatic steatosis: (9) On home oxygen therapy: Plan Mr. Jimenez is a 59-year-old male with past medical history of COPD, SAROJ, hypertension, alcohol use disorder, coronary artery disease who presented to the hospital with shortness of breath and found to be in acute on chronic hypoxic/hypercarbic resp failure. He was noted to be agitated and intubated on 11/18 given progressive hypercapnic failure. Patient now on second HD session--still with notable volume needed for removal. Continuing to monitor off antibiotics at this time. #Acute kidney injury likely multifactorial ATN/obstructive uropathy/hypotension #anion gap metabolic acidosis iso renal failure #Anuria --Renal USD: Unremarkable sonographic appearance of the kidneys. Decompressed urinary bladder with Walton catheter in place. Cr: 2.4> 9.27 this am Avoid nephrotoxic agents as able Monitor renal function Nephrology following -s/p TDC 11/30 Continue HD session for volume removal--notable volume to be UF #Acute on chronic hypoxic/hypercarbic respiratory failure *stable #Acute COPD exacerbation #Septic shock resolved #Aspiration pneumonitis #Community-acquired pneumonia chronically on 3L NC Patient presented to the hospital with shortness of breath; found to have COPD exacerbation. --CTA chest on admission did not show PE; found to have mild reticular and patchy opacity in dependent lung bases. --Overnight on November 18, patient became agitated; requiring multiple doses of Ativan for suspected alcohol withdrawal; ABG showed acute hypercapnic respiratory failure. Patient was transferred to ICU and mechanically ventilated. Extubated on November 20, 2024 Procalcitonin 0.98 Nasal MRSA negative Respiratory BioFire negative for everything on 11/18/2024 discontinue antibiotics (completed nearly 14 days) --Titrate supplemental oxygen to keep sats 88 to 92% --Continue on budesonide, formoterol nebs. Speech eval without signs of dysphagia #Leukocytosis Persistent leukocytosis likely renal failure contributing BCx with NGTD CTM low threshold for c diff testing ; however currently no abdominal pain, diarrhea #Alcohol use disorder #Alcohol withdrawal #Acute metabolic encephalopathy CT head showed no acute abnormality completed alcohol withdrawal taper Continue thiamine, folic acid Complete gabapentin protocol Avoid sedating medications as able #Wide-complex tachycardia suspect possible atrial flutter with rapid ventricular response #Bifascicular block Monitor and replete electrolytes as needed discontinued Coreg due to hypotension Continue of low dose metoprolol Appreciate cardiology input Transition to PO amiodarone 200mg BID, discontinue IV per cards -no plans for continued amio once volume status optimized holding on AC 2/2 risk at this time #Tobacco use disorder [id number] smoking history, currently smoking half a pack a day. #Hypokalemia resolved Replete and monitor #Hypocalcemia #Vitamin D deficiency PTH elevated Vitamin D level low Continue vitamin D supplements Monitor calcium levels Needs follow-up with endocrinology as outpatient Calcium levels improved Hold calcium supplements for now Monitor calcium levels #Coronary artery disease #Heart failure with preserved EF #Hypertension Continue statin Hold Coreg due to low blood pressure Diuretics held currently--volume control with HD # SAROJ Continue 3 L oxygen at bedtime #Chronic microcytic anemia likely multifactorial: Recent GI bleed, renal failure, alcohol use No obvious bleeding issues Monitor CBC Anemia workup: Low iron, normal folate and B12 levels Transfuse as needed if hemoglobin less than 7 #Recent GI bleedJanuary 2024 #Esophageal ulcer/gastritis Continue on Protonix DVT Px: Heparin SQ Code Status Full code Disposition Needs rehab placement when medically stable Admission and Anticipated Discharge Date Admission Date: November 18, 2024 Subjective NAEO tolerated HD and plans for additional session today no new concerns, but reports anxiety and dyspnea--however vs normal and oxygenating well Physical Exam Constitutional: anxious man, alert to self and location Respiratory: tachypneic Cardiovascular: JULIETTE+ RRR 2+edema Gastrointestinal (Abdomen): protuberant, nontender Results & Data Results & Data Vital Signs (Past 12 Hours) Vital Signs Temp Pulse Pulse Pulse Resp BP BP 12/01/24 13:53 36.6 C 91 H 12/01/24 13:30 83 113/77 12/01/24 13:00 83 113/77 12/01/24 12:30 76 137/72 12/01/24 12:00 75 111/72 12/01/24 11:30 65 115/71 12/01/24 11:00 75 111/75 12/01/24 10:47 82 111/75 12/01/24 10:42 36.8 C 61 83 12/01/24 09:00 12/01/24 07:26 61 18 12/01/24 07:21 36.7 C 86 19 136/76 12/01/24 07:00 85 BP Pulse Ox O2 Del Method O2 Flow Rate 12/01/24 13:53 126/77 12/01/24 13:30 12/01/24 13:00 12/01/24 12:30 12/01/24 12:00 12/01/24 11:30 12/01/24 11:00 12/01/24 10:47 12/01/24 10:42 12/01/24 09:00 Nasal Cannula 2 12/01/24 07:26 96 Nasal Cannula 3 12/01/24 07:21 94 Nasal Cannula 2 12/01/24 07:00 Laboratory Results Short CBC 12/01/24 Range/Units 06:05 WBC 21.75 H (4.8-10.8) K/ul Hgb 8.1 L (14.0-18.0) g/dl Hct 26.3 L (42.0-52.0) % Plt Count 496 H (130-400) K/uL BMP 12/01/24 06:05 Sodium 137 Potassium 4.1 Chloride 99 Carbon Dioxide 28 BUN 53 H D Creatinine 7.05 H* D Glucose 113 H Calcium 8.8 Medications Administered Home Medications Medication Instructions Recorded Confirmed Last Taken aspirin 81 mg tablet,delayed 81 mg PO QA #30 tabs 03/09/23 11/18/24 01/10/24 release atorvastatin 80 mg tablet 80 mg PO QAM 03/16/23 11/18/24 05/29/24 baclofen 10 mg tablet 10 mg PO TID PRN Muscle Spasm 06/09/23 11/18/24 Unknown ipratropium 0.5 mg-albuterol 3 mg 3 ml inhalation Q6H PRN 06/11/23 11/18/24 01/08/24 (2.5 mg base)/3 mL nebulization wheezing/severe shortness of soln breath #90 mL furosemide 20 mg tablet 20 mg PO QAM 10/14/23 11/18/24 05/29/24 potassium chloride 20 mEq 20 meq PO QAM 10/14/23 11/18/24 05/29/24 tablet,extended release folic acid 1 mg tablet 1 mg PO QAM #30 tabs 12/07/23 11/18/24 05/29/24 fluticasone fur. 200 mcg-umeclid 1 inh inhalation QAM 12/28/23 11/18/24 05/28/24 62.5 mcg-vilant 25 mcg inhalat.powder (Trelegy Ellipta) lorazepam 1 mg tablet 1 mg PO Q6 PRN Anxiety 10/18/24 11/18/24 Unknown sertraline 50 mg tablet 50 mg PO QAM 10/18/24 11/18/24 Unknown tramadol 50 mg tablet 50 mg PO Q6 PRN Pain 10/18/24 11/18/24 Unknown carvedilol 3.125 mg tablet (Coreg) 3.125 mg PO BID #60 tabs 10/21/24 11/18/24 Unknown multivitamin with folic acid 400 1 tab PO QAM 30 days #30 tabs 10/21/24 11/18/24 Unknown mcg tablet (Daily-Karen (with folic acid)) nicotine 7 mg/24 hr daily 1 patch transdermal QAM #28 ea 10/21/24 11/18/24 Unknown transdermal patch pantoprazole 40 mg tablet,delayed 40 mg PO UD #37 tabs 10/21/24 11/18/24 Unknown release thiamine HCl (vitamin B1) 100 mg 100 mg PO QAM 30 days #30 tabs 10/21/24 11/18/24 Unknown tablet Active Medications Generic Name Dose Route Start Last Admin Trade Name Freq PRN Reason Stop Dose Admin Acetaminophen 650 mg 11/21/24 12:53 12/01/24 06:12 Acetaminophen 325 Mg Tab PO 12/21/24 12:52 650 mg Q4H PRN Administration Pain Aspirin 81 mg 11/19/24 11:30 12/01/24 08:30 Aspirin 81 Mg Chew PO 12/19/24 11:29 81 mg QAM MARANDA Administration Atorvastatin Calcium 80 mg 11/22/24 09:00 11/29/24 08:31 Atorvastatin 40 Mg Tab PO 12/22/24 08:59 80 mg QAM MARANDA Administration Budesonide 0.5 mg 11/18/24 20:50 12/01/24 07:25 Budesonide 0.5 Mg/2 Ml Vial (Pulmicort) NEB 12/18/24 20:49 0.5 mg BIDR MARANDA Administration Calcium Carbonate 500 mg 11/21/24 09:00 11/27/24 20:18 Calcium Carbonate 500 Mg Chewable Tab PO 12/21/24 08:59 500 mg TID MARANDA Administration Carvedilol 3.125 mg 11/26/24 08:00 11/26/24 08:42 Carvedilol 3.125 Mg Tab PO 12/26/24 07:59 3.125 mg BIDM MARANDA Administration Folic Acid 1 mg 11/19/24 09:00 12/01/24 10:08 Folic Acid 1 Mg Tab PO 12/19/24 08:59 1 mg QAM MARANDA Administration Formoterol Fumarate 20 mcg 11/18/24 20:50 12/01/24 07:25 Formoterol 20 Mcg/2 Ml Vial NEB 12/18/24 20:49 20 mcg BIDR MARANDA Administration Heparin Sodium (Porcine) 5,000 units 11/19/24 09:00 12/01/24 08:33 Heparin Sod 5,000 Unit/0.5 Ml Vial SQ 12/19/24 08:59 5,000 units Q12 MARANDA Administration Hydroxyzine HCl 10 mg 11/27/24 19:55 11/28/24 20:21 Hydroxyzine Hcl 10 Mg Tab PO 12/27/24 19:54 10 mg QID PRN Administration Anxiety Amiodarone HCl/Dextrose 360 mg in 200 mls @ 16.667 mls/hr 11/29/24 21:30 12/01/24 09:39 Nexterone / D5w IV 12/01/24 21:29 0.5 mg/min .Q12H MARANDA 16.7 mls/hr Administration 0.5 MG/MIN Levalbuterol HCl 1.25 mg 11/18/24 20:46 11/22/24 15:17 Levalbuterol 1.25 Mg/3 Ml [facility] 12/18/24 20:45 1.25 mg Q4H PRN Administration Shortness Of Breath Or Wheezing Menthol 1 geronimo 11/20/24 20:00 11/21/24 02:06 Cough Drop (Sugar Free) Geronimo 24 Geronimo/1 Box BUCCAL 12/20/24 19:59 1 geronimo Q3H PRN Administration Sore Throat Metoprolol Tartrate 12.5 mg 11/29/24 08:00 12/01/24 08:29 Metoprolol Tartrate 25 Mg Tab PO 12/29/24 07:59 12.5 mg Q6 MARANDA Administration Miscellaneous 1 each 11/22/24 08:59 12/01/24 08:32 Remove Nicoderm Patch N/A 12/22/24 08:58 1 each [id number] MARANDA Administration Multivitamins 1 tab 11/22/24 09:00 12/01/24 08:30 Multivitamin Tab PO 12/22/24 08:59 1 tab QAM MARANDA Administration Nicotine 1 patch 11/22/24 09:00 12/01/24 08:27 Nicotine 14 Mg/24 Hr Patch TD 12/22/24 08:59 1 patch QAM MARANDA Administration Nicotine Polacrilex 1 piece 11/27/24 15:34 11/27/24 15:46 Nicotine Polacrilex 2 Mg Gum MT 12/27/24 15:33 1 piece Q2H PRN Administration Cravings Oxycodone HCl 5 mg 11/24/24 01:20 12/01/24 08:24 Oxycodone Hcl Ir 5 Mg Tab (Immediate Release) PO 12/08/24 01:19 5 mg Q4H PRN Administration Pain Pantoprazole Sodium 40 mg 11/22/24 09:00 12/01/24 08:29 Pantoprazole 40 Mg Tab PO 12/22/24 08:59 40 mg DAILY MARANDA Administration Polyethylene Glycol 17 gm 11/26/24 07:34 11/26/24 07:48 Polyethylene (Miralax) 17 Gm Pack PO 12/26/24 07:33 17 gm DAILY PRN Administration Constipation Sertraline HCl 50 mg 11/19/24 09:00 11/26/24 08:42 Sertraline Hcl 50 Mg Tablet PO 12/19/24 08:59 50 mg QAM MARANDA Administration Thiamine HCl 100 mg 11/22/24 09:00 12/01/24 08:30 Thiamine Hcl 100 Mg Tab PO 12/22/24 08:59 100 mg DAILY MARANDA Administration Vitamin D 125 mcg 11/22/24 09:00 12/01/24 08:29 Cholecalciferol 125 Mcg (5,000 Units) Tab PO 12/22/24 08:59 125 mcg QAM MARANDA Administration (4) Chronic obstructive pulmonary disease COPD type: COPD with acute exacerbation Qualified Code(s): J44.1 - Chronic obstructive pulmonary disease with (acute) exacerbation
[2024-12-01 17:00] LABS: Base Excess VBG 3.1 mEq/L; HCO3 VBG 27 mmol/L; Oxygen Saturation VBG 60.2 %; PCO2 VBG 38 mmHg (38-50); PO2 VBG 35 mmHg; pH VBG 7.46 (7.36-7.41)
[2024-12-01] MEDS: LORazepam 2 MG/1 ML VIAL IV STA (17:02)
[2024-12-01] MEDS: AMIODARONE 200 MG TAB PO SCH (18:02)
[2024-12-02 06:20] LABS: Hematocrit (blood only) 22.8 % (42.0-52.0); Hemoglobin 7.3 g/dl (14.0-18.0); Mean Corpuscular Hemoglobin 31.3 pg (25.0-34.0); Mean Corpuscular Volume 97.9 fL (80.0-100.0); Mean Platelet Volume 10.8 fL (9.4-12.4); Nucleated RBC # (auto) 0.02 K/uL (0.00-0.12); Nucleated RBC % (auto) 0.1 %; Platelet Count 464 K/uL (130-400); RDW Standard Deviation 67.7 fL (36.4-46.3); Red Blood Count 2.33 M/uL (4.70-6.10); White Blood Count 19.91 K/ul (4.8-10.8)
[2024-12-02 06:52] LABS: Albumin Globulin Ratio 0.7 (0.9-2); Albumin Level 2.5 gm/dl (3.4-5.0); Bilirubin,Total 0.4 mg/dl (0.2-1.0); Calcium 8.4 mg/dl (8.6-10.3); Creatinine Clr Calc Pharmacy 17.4 ml/min; Globulin 3.5 gm/dl (2.5-4.0); Magnesium 1.9 mg/dl (1.7-2.4); Potassium 3.4 mmol/L (3.5-5.1)
[2024-12-02] MEDS ORDERED: SODIUM CHLORIDE 0.9% 1,000 ML IV PRN (07:00)
[2024-12-02] MEDS: POTASSIUM CHLORIDE CRTAB 20 MEQ TABCR PO STA (08:55)
[2024-12-02] MEDS ORDERED: CHLORASEPTIC (PHENOL) 1.4% SOLN 180 ML BTL MT PRN (10:16)
--- NOTE | 2024-12-02 10:55 | Cardiology Progress Note ---
Date of Service December 02, 2024 Assessment & Plan (1) Atrial flutter with rapid ventricular response: (2) Nonobstructive atherosclerosis of coronary artery: (3) Volume overload: (4) Acute kidney failure: (5) Diastolic dysfunction: (6) Hypertensive heart disease: Plan Complex 59-year-old male admitted on 11/18/2024 with acute on chronic hypoxic/hypercarbic respiratory failure secondary to a COPD exacerbation. Course complicated by acute metabolic encephalopathy, alcohol withdrawal transiently requiring mechanical ventilation (11/18 to 11/20), aspiration pneumonia, urinary retention, and acute kidney injury. Patient anuric. Cardiology consulted on 11/29/2024 due to transient tachycardia appearing to be atrial flutter versus atrial tachycardia with associated hypotension. Arrhythmia likely secondary to acute stressors. Patient with marked volume overload, improving via h emodialysis. Recommendations: * Volume management as per Nephrology. * Continue metoprolol tartrate, changing to 25 mg every 8 hours * Continue oral amiodarone, short course only anticipated. * Check EKG, QTc * Continue Aspirin * Atorvastatin on hold with use of amiodarone Please contact with any cardiac issues over the weekend. Admission and Anticipated Discharge Date Admission Date: November 18, 2024 Supervising Physician Co-Signing Physician Notes Patient seen and examined. Full assessment and plan as outlined above. Has remained stable from cardiac standpoint no further arrhythmias, heart rate controlled. Plan continue oral amiodarone this admission Transition metoprolol to tartrate to metoprolol succinate 25 mg twice per day. Subjective Patient seen and examined in the midst of a breathing treatment with Xopenex. Chart, medications, telemetry reviewed. Confused. No chest pain or palpitations. Telemetry: Sinus in the 90s EKG on December 01, 2024 revealed normal sinus rhythm at 95 bpm with a right bundle branch block, QTc 490 ms. Review of Systems Review of Systems: Unable to be obtained due to altered mental status Physical Exam Physical Exam: General: Comfortable. HENT: Normocephalic. Atraumatic. Eyes: PER. Conjunctiva pink, sclera clear. Heart: Regular at 86 bpm. No murmur. Lungs: Scattered rhonchi/rales. No wheeze. Abdomen: +BS. Less firm. Distended. No overt organomegaly. Extremities: 1+ bilateral lower extremity edema. No cyanosis. Neuro: No focal deficits. Pulses: posterior tibial=0/4. Results & Data Vital Signs (Past 12 Hours) Vital Signs Temp Pulse Pulse Resp BP Pulse Ox O2 Del Method 12/02/24 10:35 36.7 C 99 H 22 143/82 H 98 Nasal Cannula 12/02/24 10:32 100 H 24 97 Nasal Cannula 12/02/24 07:28 86 19 99 Nasal Cannula 12/02/24 07:22 37.2 C 86 20 135/77 99 Nasal Cannula 12/02/24 05:29 92 Nasal Cannula 12/02/24 02:42 37.2 C 82 20 117/71 92 Nasal Cannula O2 Flow Rate 12/02/24 10:35 3 12/02/24 10:32 5 12/02/24 07:28 3 12/02/24 07:22 3 12/02/24 05:29 2 12/02/24 02:42 Laboratory Results Cardiac Enzymes 12/02/24 Range/Units 05:56 AST 31 (13-39) U/L CBC 12/02/24 Range/Units 05:56 WBC 19.91 H (4.8-10.8) K/ul RBC 2.33 L (4.70-6.10) M/uL Hgb 7.3 L (14.0-18.0) g/dl Hct 22.8 L (42.0-52.0) % Plt Count 464 H (130-400) K/uL Comprehensive Metabolic Panel 12/02/24 Range/Units 05:56 Sodium 135 L (136-145) mmol/L Potassium 3.4 L (3.5-5.1) mmol/L Chloride 98 (98-107) mmol/L Carbon Dioxide 27 (21-32) mmol/L BUN 36 H (6-23) mg/dl Creatinine 6.00 H* D (0.6-1.4) mg/dl Glucose 113 H (70-99(Fasting)) mg/dl Calcium 8.4 L (8.6-10.3) mg/dl AST 31 (13-39) U/L ALT 20 (7-52) U/L Alkaline Phosphatase 166 H (34-104) U/L Total Protein 6.0 (6.0-8.3) gm/dl Albumin 2.5 L (3.4-5.0) gm/dl Intake and Output 12/01/24 12/02/24 12/02/24 22:59 06:59 14:59 Intake Total 740 / 981.215 50 / 981.215 Output Total Balance 740 / 956.215 25 / 956.215 Intake: IV 200 / 391.215 Amiodarone / D5w 360 mg In 200 200 / 391.215 ml @ 0.5 MG/MIN 16.667 mls/hr IV .Q12H [facility] Rx#:[id number] Oral 540 / 590 50 / 590 Output: Urine Amount (Catheter) Walton/Indwelling Other: Weight 121.5 kg Weight Measurement Method Built in [facility]
--- NOTE | 2024-12-02 11:00 | Nephrology Progress Note ---
Date of Service December 02, 2024 Assessment & Plan (1) ALESSANDRO (acute kidney injury): Plan: patient with the acute kidney injury due to ischemic ATN in setting of sepsis and hypotension. Patient is being treated for pneumonia. Creatinine was 1 prior to admission but peaked at 8.2 and patient start dialysis. patient remains anuric. Chest x-ray showed cardiomegaly and mild pulmonary vascular congestion. Electrolytes are stable. given worsening volume overload and being anuric, patient will benefit from dialysis. Risks and benefits were discussed. Patient has consented to dialysis. Vascular Surgery placed a PermCath on 11/30/24 and 1st dialysis session. - Continue to monitor input/output - patient will be dialyzed today for 3 hours target UF 3 L. he will be dialysed tomorrow again (2) Acute respiratory failure with hypoxia: Plan: likely due to pneumonia, COPD exacerbation and volume overload. Patient is getting antibiotics. will optimize volume status with dialysis Admission and Anticipated Discharge Date Admission Date: November 18, 2024 Subjective Seen for ALESSANDRO on HD. No SOB but remains very weak. Legs are swollen. Still tachycardia. Review of Systems 2 Review of Systems: All other systems were reviewed and negative except as noted in HPI Physical Exam 2 Physical Exam: General exam: mild respiratory distress HEENT: Pupils are equal and reactive to light Neck: No JVD, neck is supple trachea is midline Respiratory system: Clear breath sounds bilaterally. Gastrointestinal: Abdomen is soft, non distended, non tender, bowel sounds are present CVS: tachycardia. No murmurs, rubs or gallops Musculoskeletal: No joint or muscle tenderness Extremities: Non tender, 1+ edema, peripheral pulses are present Neuro: Oriented, no tremors, no focal neurological deficits Skin: No rashes Results & Data Vital Signs (Past 12 Hours) Vital Signs Temp Pulse Pulse Resp BP Pulse Ox O2 Del Method 12/02/24 10:35 36.7 C 99 H 22 143/82 H 98 Nasal Cannula 12/02/24 10:32 100 H 24 97 Nasal Cannula 12/02/24 07:28 86 19 99 Nasal Cannula 12/02/24 07:22 37.2 C 86 20 135/77 99 Nasal Cannula 12/02/24 05:29 92 Nasal Cannula 12/02/24 02:42 37.2 C 82 20 117/71 92 Nasal Cannula O2 Flow Rate 12/02/24 10:35 3 12/02/24 10:32 5 12/02/24 07:28 3 12/02/24 07:22 3 12/02/24 05:29 2 12/02/24 02:42 Laboratory Results 12/02/24 05:56 12/02/24 05:56 WBC 19.91 H RBC 2.33 L MCV 97.9 MCH 31.3 MCHC 32.0 RDW Std Deviation 67.7 H RDW Coeff of Rogelio 19.0 H Plt Count 464 H MPV 10.8 Phosphorus 4.0 D Albumin 2.5 L
[2024-12-02] MEDS: HEPARIN SOD (PORCINE) 1000 UNIT/ML IV SCH (14:35)
[2024-12-02] MEDS: HEPARIN SOD (PORCINE) 1000 UNIT/ML IV ONE (14:35)
--- NOTE | 2024-12-02 15:10 | Hospitalist Progress Note ---
Date of Service December 02, 2024 Assessment & Plan (1) Acute on chronic anemia: (2) Alcohol use disorder: (3) Obesity (BMI 30.0-34.9): (4) Chronic obstructive pulmonary disease: (5) Hypertension: (6) CAD (coronary artery disease): (7) GERD (gastroesophageal reflux disease): (8) Hepatic steatosis: (9) On home oxygen therapy: Plan Mr. Jimenez is a 59-year-old male with past medical history of COPD, SAROJ, hypertension, alcohol use disorder, coronary artery disease who presented to the hospital with shortness of breath and found to be in acute on chronic hypoxic/hypercarbic resp failure. He was noted to be agitated and intubated on 11/18 given progressive hypercapnic failure. Patient now on second HD session--still with notable volume needed for removal. Continuing to monitor off antibiotics at this time. Patient with ongoing poorly control anxiety--prns do help, but agreed to behavioral consult at this time given persistence despite clinical improvement #anxiety discontinue hydroxyzine prn given prolonged qtc, zoloft also discontinued for this reason Start buspar TID ativan prn given no other agent without qtc risk behavioral health consult #Acute kidney injury likely multifactorial ATN/obstructive uropathy/hypotension #anion gap metabolic acidosis iso renal failure #Anuria --Renal USD: Unremarkable sonographic appearance of the kidneys. Decompressed urinary bladder with Walton catheter in place. Cr: 2.4> 9.27 this am Avoid nephrotoxic agents as able Monitor renal function Nephrology following -s/p TDC 11/30 Continue HD session for volume removal--notable volume to be UF Next session tomorrow 12/02 #Acute on chronic hypoxic/hypercarbic respiratory failure *stable #Acute COPD exacerbation #Septic shock resolved #Aspiration pneumonitis #Community-acquired pneumonia chronically on 3L NC Patient presented to the hospital with shortness of breath; found to have COPD exacerbation. --CTA chest on admission did not show PE; found to have mild reticular and patchy opacity in dependent lung bases. --Overnight on November 18, patient became agitated; requiring multiple doses of Ativan for suspected alcohol withdrawal; ABG showed acute hypercapnic respiratory failure. Patient was transferred to ICU and mechanically ventilated. Extubated on November 20, 2024 discontinue antibiotics (completed nearly 14 days) --Titrate supplemental oxygen to keep sats 88 to 92% --Continue on budesonide, formoterol nebs. Speech eval without signs of dysphagia #Leukocytosis Persistent leukocytosis likely renal failure contributing BCx with NGTD CTM, cbc in am low threshold for c diff testing ; however currently no abdominal pain, diarrhea #Alcohol use disorder #Alcohol withdrawal #Acute metabolic encephalopathy CT head showed no acute abnormality completed alcohol withdrawal taper Continue thiamine, folic acid Complete gabapentin protocol Avoid sedating medications as able #Wide-complex tachycardia suspect possible atrial flutter with rapid ventricular response #Bifascicular block Monitor and replete electrolytes as needed discontinued Coreg due to hypotension Continue of low dose metoprolol Appreciate cardiology input Transition to PO amiodarone 200mg BID, discontinue IV per cards -no plans for continued amio once volume status optimized holding on AC 2/2 risk at this time #Tobacco use disorder [id number] smoking history, currently smoking half a pack a day. #Hypokalemia resolved Replete and monitor reviewed labs and replaced with 40meq KCL #Hypocalcemia #Vitamin D deficiency PTH elevated Vitamin D level low Continue vitamin D supplements Monitor calcium levels Needs follow-up with endocrinology as outpatient Calcium levels improved Hold calcium supplements for now Monitor calcium levels #Coronary artery disease #Heart failure with preserved EF #Hypertension Continue statin Hold Coreg due to low blood pressure Diuretics held currently--volume control with HD # SAROJ Continue 3 L oxygen at bedtime #Chronic microcytic anemia likely multifactorial: Recent GI bleed, renal failure, alcohol use No obvious bleeding issues Monitor CBC Anemia workup: Low iron, normal folate and B12 levels Transfuse as needed if hemoglobin less than 7 #Recent GI bleedJanuary 2024 #Esophageal ulcer/gastritis Continue on Protonix DVT Px: Heparin SQ Code Status Full code Disposition Needs rehab placement when medically stable Admission and Anticipated Discharge Date Admission Date: November 18, 2024 Subjective Reports of intermittent confusion overnight Reports some hallucinations and is aware of the hallucinations--states they frighten him and mostly occur at bedtime Reports anxiety ongoing--some what controlled with prns at hand--agreeable to behavioral consult Physical Exam Constitutional: WD/WN, vitals as above Respiratory: Diminished, few scattered expiratory wheezes Cardiovascular: tachycardic Musculoskeletal: 2+ Pitting edema BLE Results & Data Results & Data Vital Signs (Past 12 Hours) Vital Signs Temp Pulse Pulse Pulse Resp BP BP 12/02/24 14:30 85 125/71 12/02/24 14:00 91 H 101/67 12/02/24 13:30 90 96/57 L 12/02/24 13:06 93 H 104/61 12/02/24 13:00 93 H 12/02/24 13:00 36.6 C 85 12/02/24 12:03 95 H 110/63 12/02/24 12:00 12/02/24 10:35 36.7 C 99 H 22 143/82 H 12/02/24 10:32 100 H 24 12/02/24 07:28 86 19 12/02/24 07:22 37.2 C 86 20 135/77 12/02/24 07:00 94 H 12/02/24 05:29 Pulse Ox O2 Del Method O2 Flow Rate 12/02/24 14:30 12/02/24 14:00 12/02/24 13:30 12/02/24 13:06 12/02/24 13:00 12/02/24 13:00 12/02/24 12:03 12/02/24 12:00 Nasal Cannula 2 12/02/24 10:35 98 Nasal Cannula 3 12/02/24 10:32 97 Nasal Cannula 5 12/02/24 07:28 99 Nasal Cannula 3 12/02/24 07:22 99 Nasal Cannula 3 12/02/24 07:00 12/02/24 05:29 92 Nasal Cannula 2 Laboratory Results Short CBC 12/02/24 Range/Units 05:56 WBC 19.91 H (4.8-10.8) K/ul Hgb 7.3 L (14.0-18.0) g/dl Hct 22.8 L (42.0-52.0) % Plt Count 464 H (130-400) K/uL BMP 12/02/24 05:56 Sodium 135 L Potassium 3.4 L Chloride 98 Carbon Dioxide 27 BUN 36 H Creatinine 6.00 H* D Glucose 113 H Calcium 8.4 L Liver Function 12/02/24 Range/Units 05:56 Total Bilirubin 0.4 (0.2-1.0) mg/dl AST 31 (13-39) U/L ALT 20 (7-52) U/L Alkaline Phosphatase 166 H (34-104) U/L Albumin 2.5 L (3.4-5.0) gm/dl Medications Administered Home Medications Medication Instructions Recorded Confirmed Last Taken aspirin 81 mg tablet,delayed 81 mg PO QAM #30 tabs 03/09/23 11/18/24 01/10/24 release atorvastatin 80 mg tablet 80 mg PO QAM 03/16/23 11/18/24 05/29/24 baclofen 10 mg tablet 10 mg PO TID PRN Muscle Spasm 06/09/23 11/18/24 Unknown ipratropium 0.5 mg-albuterol 3 mg 3 ml inhalation Q6H PRN 06/11/23 11/18/24 01/08/24 (2.5 mg base)/3 mL nebulization wheezing/severe shortness of soln breath #90 mL furosemide 20 mg tablet 20 mg PO QAM 10/14/23 11/18/24 05/29/24 potassium chloride 20 mEq 20 meq PO QAM 10/14/23 11/18/24 05/29/24 tablet,extended release folic acid 1 mg tablet 1 mg PO QAM #30 tabs 12/07/23 11/18/24 05/29/24 fluticasone fur. 200 mcg-umeclid 1 inh inhalation QAM 12/28/23 11/18/24 05/28/24 62.5 mcg-vilant 25 mcg inhalat.powder (Trelegy Ellipta) lorazepam 1 mg tablet 1 mg PO Q6 PRN Anxiety 10/18/24 11/18/24 Unknown sertraline 50 mg tablet 50 mg PO QAM 10/18/24 11/18/24 Unknown tramadol 50 mg tablet 50 mg PO Q6 PRN Pain 10/18/24 11/18/24 Unknown carvedilol 3.125 mg tablet (Coreg) 3.125 mg PO BID #60 tabs 10/21/24 11/18/24 Unknown multivitamin with folic acid 400 1 tab PO QAM 30 days #30 tabs 10/21/24 11/18/24 Unknown mcg tablet (Daily-Karen (with folic acid)) nicotine 7 mg/24 hr daily 1 patch transdermal QAM #28 ea 10/21/24 11/18/24 Unknown transdermal patch pantoprazole 40 mg tablet,delayed 40 mg PO UD #37 tabs 10/21/24 11/18/24 Unknown release thiamine HCl (vitamin B1) 100 mg 100 mg PO QAM 30 days #30 tabs 10/21/24 11/18/24 Unknown tablet Active Medications Generic Name Dose Route Start Last Admin Trade Name Freq PRN Reason Stop Dose Admin Acetaminophen 650 mg 11/21/24 12:53 12/02/24 10:16 Acetaminophen 325 Mg Tab PO 12/21/24 12:52 650 mg Q4H PRN Administration Pain Amiodarone HCl 200 mg 12/01/24 17:00 12/02/24 08:54 Amiodarone 200 Mg Tab PO 12/31/24 16:59 200 mg BIDM MARANDA Administration Aspirin 81 mg 11/19/24 11:30 12/02/24 08:56 Aspirin 81 Mg Chew PO 12/19/24 11:29 81 mg QAM MARANDA Administration Atorvastatin Calcium 80 mg 11/22/24 09:00 11/29/24 08:31 Atorvastatin 40 Mg Tab PO 12/22/24 08:59 80 mg QAM MARANDA Administration Budesonide 0.5 mg 11/18/24 20:50 12/02/24 07:27 Budesonide 0.5 Mg/2 Ml Vial (Pulmicort) [facility] 12/18/24 20:49 0.5 mg BIDR MARANDA Administration Calcium Carbonate 500 mg 11/21/24 09:00 11/27/24 20:18 Calcium Carbonate 500 Mg Chewable Tab PO 12/21/24 08:59 500 mg TID MARANDA Administration Folic Acid 1 mg 11/19/24 09:00 12/02/24 08:57 Folic Acid 1 Mg Tab PO 12/19/24 08:59 1 mg QAM MARANDA Administration Formoterol Fumarate 20 mcg 11/18/24 20:50 12/02/24 07:27 Formoterol 20 Mcg/2 Ml Vial NEB 12/18/24 20:49 20 mcg BIDR MARANAD Administration Heparin Sodium (Porcine) 5,000 units 11/19/24 09:00 12/02/24 10:26 Heparin Sod 5,000 Unit/0.5 Ml Vial SQ 12/19/24 08:59 5,000 units Q12 MARANDA Administration Levalbuterol HCl 1.25 mg 11/18/24 20:46 12/02/24 10:32 Levalbuterol 1.25 Mg/3 Ml Neb [facility] 12/18/24 20:45 1.25 mg Q4H PRN Administration Shortness Of Breath Or Wheezing Menthol 1 geronimo 11/20/24 20:00 11/21/24 02:06 Cough Drop (Sugar Free) Geronimo 24 Geronimo/1 Box BUCCAL 12/20/24 19:59 1 geronimo Q3H PRN Administration Sore Throat Miscellaneous 1 each 11/22/24 08:59 12/02/24 08:57 Remove Nicoderm Patch N/A 12/22/24 08:58 1 each DAILY@[id number] MARANDA Administration Multivitamins 1 tab 11/22/24 09:00 12/02/24 08:57 Multivitamin Tab PO 12/22/24 08:59 1 tab QAM MARANDA Administration Nicotine 1 patch 11/22/24 09:00 12/02/24 08:56 Nicotine 14 Mg/24 Hr Patch TD 12/22/24 08:59 1 patch QAM MARANDA Administration Nicotine Polacrilex 1 piece 11/27/24 15:34 11/27/24 15:46 Nicotine Polacrilex 2 Mg Gum MT 12/27/24 15:33 1 piece Q2H PRN Administration Cravings Oxycodone HCl 5 mg 11/24/24 01:20 12/01/24 08:24 Oxycodone Hcl Ir 5 Mg Tab (Immediate Release) PO 12/08/24 01:19 5 mg Q4H PRN Administration Pain Pantoprazole Sodium 40 mg 11/22/24 09:00 12/02/24 08:57 Pantoprazole 40 Mg Tab PO 12/22/24 08:59 40 mg DAILY MARANDA Administration Polyethylene Glycol 17 gm 11/26/24 07:34 11/26/24 07:48 Polyethylene (Miralax) 17 Gm Pack PO 12/26/24 07:33 17 gm DAILY PRN Administration Constipation Sertraline HCl 50 mg 11/19/24 09:00 11/26/24 08:42 Sertraline Hcl 50 Mg Tablet PO 12/19/24 08:59 50 mg QAM MARANDA Administration Thiamine HCl 100 mg 11/22/24 09:00 12/02/24 08:57 Thiamine Hcl 100 Mg Tab PO 12/22/24 08:59 100 mg DAILY MARANDA Administration Vitamin D 125 mcg 11/22/24 09:00 12/02/24 08:56 Cholecalciferol 125 Mcg (5,000 Units) Tab PO 12/22/24 08:59 125 mcg QAM MARANDA Administration (4) Chronic obstructive pulmonary disease COPD type: COPD with acute exacerbation Qualified Code(s): J44.1 - Chronic obstructive pulmonary disease with (acute) exacerbation
[2024-12-02] MEDS: EPOETIN ALFA 10,000 UNITS/ML VIAL IV ONE (16:12)
[2024-12-02] MEDS: LORazepam 0.5 MG TAB PO PRN (16:45)
--- NOTE | 2024-12-02 19:22 | Electrocardiogram Report ---
Test Reason : Blood Pressure : */* mmHG Vent. Rate : 95 BPM Atrial Rate : 95 BPM P-R Int : 148 ms QRS Dur : 140 ms QT Int : 390 ms P-R-T Axes : 38 -29 39 degrees QTcB Int : 490 ms Normal sinus rhythm Right bundle branch block Abnormal ECG When compared with ECG of 29-Nov-2024 16:49, No significant change Confirmed by Qasim Olivier ([id number] on 12/02/2024 7:21:58 PM Referred By: REFERRED SELF Confirmed By: Qasim Olivier
--- NOTE | 2024-12-02 19:33 | XRay Report ---
EXAM: Radiograph of the Abdomen 1 View INDICATION: Pain TECHNIQUE: Frontal supine view of the abdomen/pelvis. COMPARISON: No relevant prior studies available. FINDINGS: Limitations: None. Gastrointestinal tract: Air scattered throughout non-dilated intestinal loops. Organs: Visualized organ shadows appear grossly normal. Bones/joints: Intact well-seated posterior L3-L5 fusion hardware. No acute osseous abnormality. Soft tissues: No abnormality noted. No radiopaque foreign body noted. IMPRESSION: No acute change noted. ACT 112: N/A Electronically signed by Melisa Juarez 12-02-2024 7:33 PM
[2024-12-02 19:54] LABS: Hematocrit (blood only) 23.9 % (42.0-52.0); Hemoglobin 7.7 g/dl (14.0-18.0); Mean Corpuscular Hemoglobin 31.4 pg (25.0-34.0); Mean Corpuscular Hgb Conc 32.2 g/dL (32.0-36.0); Mean Corpuscular Volume 97.6 fL (80.0-100.0); Mean Platelet Volume 10.9 fL (9.4-12.4); Platelet Count 494 K/uL (130-400); RDW Coefficient of Variation 19.8 % (11.5-14.5); RDW Standard Deviation 70.3 fL (36.4-46.3); Red Blood Count 2.45 M/uL (4.70-6.10); White Blood Count 23.29 K/ul (4.8-10.8)
[2024-12-02] MEDS: busPIRone 5 MG TAB PO SCH (20:56)
[2024-12-02] MEDS: METOPROLOL SUCC 25MG EXT REL TAB PO SCH (20:56)
[2024-12-02] MEDS: ARIPiprazole 5 MG TAB PO SCH (21:10)
[2024-12-02] MEDS: MELATONIN 3 MG TAB PO PRN (21:41)
--- NOTE | 2024-12-02 21:55 | Ultrasound Report ---
Exam(s): US VENOUS LEFT UPPER EXTREMITY EXAM: US Duplex Left Upper Extremity Veins CLINICAL HISTORY: Reason for exam: ? DVT v thrombophlebitis. TECHNIQUE: Real-time duplex ultrasound scan of the left upper extremity veins integrating B-mode two-dimensional vascular structure, Doppler spectral analysis, color flow Doppler imaging and compression. COMPARISON: No relevant prior studies available. FINDINGS: Deep veins: Unremarkable. No DVT in the internal jugular, subclavian, axillary, or brachial veins. The veins demonstrate normal color flow, are normally compressible, with normal phasic flow and/or augmentation response. Superficial veins: The cephalic vein in the left forearm is thrombosed, consistent with superficial thrombophlebitis. Soft tissues: No acute findings. IMPRESSION: The cephalic vein in the left forearm is thrombosed, consistent with superficial thrombophlebitis. No evidence of DVT. Electronically signed by: Rahul Neri MD 12/02/24 21:54 PM
[2024-12-03] MEDS ORDERED: SODIUM CHLORIDE 0.9% 1,000 ML IV PRN (07:00)
[2024-12-03 07:31] LABS: Hematocrit (blood only) 22.9 % (42.0-52.0); Hemoglobin 7.3 g/dl (14.0-18.0); Mean Corpuscular Hemoglobin 31.2 pg (25.0-34.0); Mean Corpuscular Hgb Conc 31.9 g/dL (32.0-36.0); Mean Corpuscular Volume 97.9 fL (80.0-100.0); Mean Platelet Volume 10.8 fL (9.4-12.4); Platelet Count 482 K/uL (130-400); RDW Coefficient of Variation 19.3 % (11.5-14.5); Red Blood Count 2.34 M/uL (4.70-6.10); White Blood Count 21.57 K/ul (4.8-10.8)
[2024-12-03 07:55] LABS: BUN Creatinine Ratio 5.6 (10-20); Calcium 8.6 mg/dl (8.6-10.3); Creatinine Clr Calc Pharmacy 19.7 ml/min; Magnesium 1.8 mg/dl (1.7-2.4); Phosphorus 3.5 mg/dl (2.5-4.9); Potassium 3.9 mmol/L (3.5-5.1)
[2024-12-03] MEDS: HEPARIN SOD (PORCINE) 1000 UNIT/ML IV SCH (09:26)
[2024-12-03] MEDS: HEPARIN SOD (PORCINE) 1000 UNIT/ML IV ONE (09:26)
[2024-12-03] MEDS: FUROSEMIDE 40 MG/4 ML VIAL IV SCH (10:47)
--- NOTE | 2024-12-03 12:12 | Nephrology Progress Note ---
Date of Service December 03, 2024 Assessment & Plan (1) ALESSANDRO (acute kidney injury): Plan: Patient with the acute kidney injury due to ischemic ATN in setting of sepsis and hypotension. Patient is being treated for pneumonia. Creatinine was 1 prior to admission but peaked at 8.2 and patient start dialysis. patient remains anuric. Chest x-ray showed cardiomegaly and mild pulmonary vascular congestion. Electrolytes are stable. given worsening volume overload and being anuric, patient will benefit from dialysis. Risks and benefits were discussed. Patient has consented to dialysis. Vascular Surgery placed a PermCath on 11/30/24 and 1st dialysis session. - patient was dialyzed daily fro 3 daysand was supposed to have dialysis today , However he accidently pulled his dialysis catheter yesterday night,Electrolytes are safe, and his oxygen requirement have not increase.H eis not on diuretics.Urine output has been in the Oligoauric range - Start on Furosemide 100 mg IV daily, keep on 750 mls of Fluid restriction daily. - He should also be on strict dialysis diet. - Continue to monitor input/output - He will likley need new dialysis catheter on Thursday , if he does not open up or his UOP continues to be poor.However if his Oxygen requirement increase og if he becomes hyperkalemic, he will need atemporary catheter for urgent dialysis. - Plan agreed w/ Dr Perez. (2) Acute respiratory failure with hypoxia: Plan: likely due to pneumonia, COPD exacerbation and volume overload. Patient is getting antibiotics. will optimize volume status with dialysis Admission and Anticipated Discharge Date Admission Date: November 18, 2024 Subjective Comfortable on 1 l oxygen. He accidently pulled the dialysis catheter out.No bleeding or bruising at the exit site. Review of Systems 2 Review of Systems: All other systems were reviewed and negative except as noted in HPI Physical Exam 2 Physical Exam: 2-3+ bilateral pedal edema. Results & Data Vital Signs (Past 12 Hours) Vital Signs Temp Pulse Pulse Resp BP Pulse Ox O2 Del Method 12/03/24 10:50 36.7 C 89 20 133/76 91 Room Air 12/03/24 07:15 98 H 19 98 Nasal Cannula 12/03/24 07:12 36.6 C 96 H 20 158/83 H 93 Nasal Cannula 12/03/24 03:11 36.7 C 78 17 120/74 96 Room Air O2 Flow Rate 12/03/24 10:50 1 03/15/25 07:15 1.5 12/03/24 07:12 1.5 12/03/24 03:11 Laboratory Results 12/03/24 06:26 12/03/24 06:26
--- NOTE | 2024-12-03 14:24 | Hospitalist Progress Note ---
Date of Service December 03, 2024 Assessment & Plan (1) Acute on chronic anemia: (2) Alcohol use disorder: (3) Obesity (BMI 30.0-34.9): (4) Chronic obstructive pulmonary disease: (5) Hypertension: (6) CAD (coronary artery disease): (7) GERD (gastroesophageal reflux disease): (8) Hepatic steatosis: (9) On home oxygen therapy: Plan Mr. Jimenez is a 59-year-old male with past medical history of COPD, SAROJ, hypertension, alcohol use disorder, coronary artery disease who presented to the hospital with shortness of breath and found to be in acute on chronic hypoxic/hypercarbic resp failure. He was noted to be agitated and intubated on 11/18 given progressive hypercapnic failure. Patient now on second HD session--still with notable volume needed for removal. Continuing to monitor off antibiotics at this time. Patient with ongoing poorly control anxiety--behavioral health consulted however, patient did not want to participate per documentation. Ripped out TDC on 12/02 overnight--discussed with nephrology, will trial x furosemide IV 100mg over weekend and assess for renal recovery. #Delirium #anxiety discontinue hydroxyzine prn given prolonged qtc, zoloft also discontinued for this reason continue buspar TID behavioral health consult--did not participate continue Abilify 2.5mg to help with behavior/anxiety #Acute kidney injury likely multifactorial ATN/obstructive uropathy/hypotension #anion gap metabolic acidosis iso renal failure #Anuria --Renal USD: Unremarkable sonographic appearance of the kidneys. Decompressed urinary bladder with Walton catheter in place. Cr: 2.4> 9.27 this am Avoid nephrotoxic agents as able Monitor renal function Nephrology following -s/p TDC 11/30, ripped out TDC overnight 12/02 s/p 3 sessions prior to ripping out the TDC Will start lasix 100mg IV daily Goal for 750-1000ml FR #LUE Cephalic vein thrombophlebitis The cephalic vein in the left forearm is thrombosed, consistent with superficial thrombophlebitis. Evaluated prior PIV site near left wrist on radial aspect--chordlike pattern noted, however no erythema no DVT on doppler High risk for AC Continue supportive care with hot compress and hold on AC at this time #Acute on chronic hypoxic/hypercarbic respiratory failure *stable #Acute COPD exacerbation #Septic shock resolved #Aspiration pneumonitis #Community-acquired pneumonia chronically on 3L NC Patient presented to the hospital with shortness of breath; found to have COPD exacerbation. --CTA chest on admission did not show PE; found to have mild reticular and patchy opacity in dependent lung bases. --Overnight on November 18, patient became agitated; requiring multiple doses of Ativan for suspected alcohol withdrawal; ABG showed acute hypercapnic respiratory failure. Patient was transferred to ICU and mechanically ventilated. Extubated on November 20, 2024 discontinue antibiotics (completed nearly 14 days) --Titrate supplemental oxygen to keep sats 88 to 92% --Continue on budesonide, formoterol nebs. Speech eval without signs of dysphagia #Leukocytosis #Thrombocytosis Persistent leukocytosis likely renal failure contributing BCx with NGTD, repeat cultures on 12/02 ordered low threshold for c diff testing ; however currently no abdominal pain, diarrhea suspect reactive at this time no clear source for infection #Alcohol use disorder #Alcohol withdrawal #Acute metabolic encephalopathy CT head showed no acute abnormality completed alcohol withdrawal taper Continue thiamine, folic acid Complete gabapentin protocol Avoid sedating medications as able #Wide-complex tachycardia suspect possible atrial flutter with rapid ventricular response #Bifascicular block Monitor and replete electrolytes as needed discontinued Coreg due to hypotension Continue of low dose metoprolol Appreciate cardiology input Transition to PO amiodarone 200mg BID, discontinue IV per cards -no plans for continued amio once volume status optimized holding on AC 2/2 risk at this time #Tobacco use disorder [id number] smoking history, currently smoking half a pack a day. #Hypokalemia resolved Replete and monitor reviewed labs and replaced with 40meq KCL #Hypocalcemia #Vitamin D deficiency PTH elevated Vitamin D level low Continue vitamin D supplements Monitor calcium levels Needs follow-up with endocrinology as outpatient Calcium levels improved Hold calcium supplements for now Monitor calcium levels #Coronary artery disease #Heart failure with preserved EF #Hypertension Continue statin Hold Coreg due to low blood pressure Diuretics held currently--volume control with HD # SAROJ Continue 3 L oxygen at bedtime #Chronic microcytic anemia likely multifactorial: Recent GI bleed, renal failure, alcohol use No obvious bleeding issues Monitor CBC Anemia workup: Low iron, normal folate and B12 levels Transfuse as needed if hemoglobin less than 7 #Recent GI bleedJanuary 2024 #Esophageal ulcer/gastritis Continue on Protonix DVT Px: Heparin SQ Code Status Full code Disposition Needs rehab placement when medically stable Admission and Anticipated Discharge Date Admission Date: November 18, 2024 Subjective Pulled catheter out in evening--reports he felt confused and just pulled it out. Denies any pain at the site Does report feeling much calmer today--denying any SOB, resp distress or any other concerns Reports better control of anxiety this am Physical Exam Constitutional: less anxious on exam Respiratory: diminished in bases Cardiovascular: RRR, 2+ BLE softening Gastrointestinal (Abdomen): distended nontender Results & Data Results & Data Vital Signs (Past 12 Hours) Vital Signs Temp Pulse Pulse Pulse Resp BP Pulse Ox 12/03/24 13:35 88 12/03/24 12:38 104 H 12/03/24 10:50 36.7 C 89 20 133/76 91 12/03/24 07:45 12/03/24 07:15 98 H 19 98 12/03/24 07:12 36.6 C 96 H 20 158/83 H 93 12/03/24 03:11 36.7 C 78 17 120/74 96 O2 Del Method O2 Flow Rate 12/03/24 13:35 12/03/24 12:38 12/03/24 10:50 Room Air 1 12/03/24 07:45 Nasal Cannula 1 12/03/24 07:15 Nasal Cannula 1.5 12/03/24 07:12 Nasal Cannula 1.5 12/03/24 03:11 Room Air Laboratory Results Short CBC 12/02/24 12/03/24 Range/Units 19:29 06:26 WBC 23.29 H 21.57 H (4.8-10.8) K/ul Hgb 7.7 L 7.3 L (14.0-18.0) g/dl Hct 23.9 L 22.9 L (42.0-52.0) % Plt Count 494 H 482 H (130-400) K/uL BMP 12/03/24 06:26 Sodium 135 L Potassium 3.9 Chloride 99 Carbon Dioxide 28 BUN 30 H Creatinine 5.31 H* D Glucose 110 H Calcium 8.6 Medications Administered Home Medications Medication Instructions Recorded Confirmed Last Taken aspirin 81 mg tablet,delayed 81 mg PO QAM #30 tabs 03/09/23 11/18/24 01/10/24 release atorvastatin 80 mg tablet 80 mg PO QAM 03/16/23 11/18/24 05/29/24 baclofen 10 mg tablet 10 mg PO TID PRN Muscle Spasm 06/09/23 11/18/24 Unknown ipratropium 0.5 mg-albuterol 3 mg 3 ml inhalation Q6H PRN 06/11/23 11/18/24 01/08/24 (2.5 mg base)/3 mL nebulization wheezing/severe shortness of soln breath #90 mL furosemide 20 mg tablet 20 mg PO QAM 10/14/23 11/18/24 05/29/24 potassium chloride 20 mEq 20 meq PO QAM 10/14/23 11/18/24 05/29/24 tablet,extended release folic acid 1 mg tablet 1 mg PO QAM #30 tabs 12/07/23 11/18/24 05/29/24 fluticasone fur. 200 mcg-umeclid 1 inh inhalation QAM 12/28/23 11/18/24 05/28/24 62.5 mcg-vilant 25 mcg inhalat.powder (Trelegy Ellipta) lorazepam 1 mg tablet 1 mg PO Q6 PRN Anxiety 10/18/24 11/18/24 Unknown sertraline 50 mg tablet 50 mg PO QAM 10/18/24 11/18/24 Unknown tramadol 50 mg tablet 50 mg PO Q6 PRN Pain 10/18/24 11/18/24 Unknown carvedilol 3.125 mg tablet (Coreg) 3.125 mg PO BID #60 tabs 10/21/24 11/18/24 Unknown multivitamin with folic acid 400 1 tab PO QAM 30 days #30 tabs 10/21/24 11/18/24 Unknown mcg tablet (Daily-Karen (with folic acid)) nicotine 7 mg/24 hr daily 1 patch transdermal QAM #28 ea 10/21/24 11/18/24 Unknown transdermal patch pantoprazole 40 mg tablet,delayed 40 mg PO UD #37 tabs 10/21/24 11/18/24 Unknown release thiamine HCl (vitamin B1) 100 mg 100 mg PO QAM 30 days #30 tabs 10/21/24 11/18/24 Unknown tablet Active Medications Generic Name Dose Route Start Last Admin Trade Name Freq PRN Reason Stop Dose Admin Acetaminophen 650 mg 11/21/24 12:53 12/02/24 18:49 Acetaminophen 325 Mg Tab PO 12/21/24 12:52 650 mg Q4H PRN Administration Pain Amiodarone HCl 200 mg 12/01/24 17:00 12/03/24 09:07 Amiodarone 200 Mg Tab PO 12/31/24 16:59 200 mg BIDM MARANDA Administration Aripiprazole 2.5 mg 12/02/24 19:00 12/02/24 21:10 Aripiprazole 5 Mg Tab PO 01/01/25 18:59 2.5 mg QPM MARANDA Administration Aspirin 81 mg 11/19/24 11:30 12/03/24 09:08 Aspirin 81 Mg Chew PO 12/19/24 11:29 81 mg QAM MARANDA Administration Atorvastatin Calcium 80 mg 11/22/24 09:00 11/29/24 08:31 Atorvastatin 40 Mg Tab PO 12/22/24 08:59 80 mg QAM MARANDA Administration Budesonide 0.5 mg 11/18/24 20:50 12/03/24 07:14 Budesonide 0.5 Mg/2 Ml Vial (Pulmicort) NEB 12/18/24 20:49 0.5 mg BIDR MARANDA Administration Buspirone HCl 5 mg 12/02/24 21:00 12/03/24 13:23 Buspirone 5 Mg Tab PO 01/01/25 20:59 5 mg TID MARANDA Administration Calcium Carbonate 500 mg 11/21/24 09:00 11/27/24 20:18 Calcium Carbonate 500 Mg Chewable Tab PO 12/21/24 08:59 500 mg TID MARANDA Administration Folic Acid 1 mg 11/19/24 09:00 12/03/24 09:11 Folic Acid 1 Mg Tab PO 12/19/24 08:59 1 mg QAM MARANDA Administration Formoterol Fumarate 20 mcg 11/18/24 20:50 12/03/24 07:15 Formoterol 20 Mcg/2 Ml Vial NEB 12/18/24 20:49 20 mcg BIDR MARANDA Administration Furosemide 100 mg 12/03/24 10:00 12/03/24 10:47 Furosemide 40 Mg/4 Ml Vial IV 01/02/25 09:59 100 mg DAILY MARANDA Administration Heparin Sodium (Porcine) 5,000 units 11/19/24 09:00 12/03/24 09:17 Heparin Sod 5,000 Unit/0.5 Ml Vial SQ 12/19/24 08:59 5,000 units Q12 MARANDA Administration Levalbuterol HCl 1.25 mg 11/18/24 20:46 12/02/24 10:32 Levalbuterol 1.25 Mg/3 Ml Neb NEB 12/18/24 20:45 1.25 mg Q4H PRN Administration Shortness Of Breath Or Wheezing Lorazepam 0.5 mg 12/02/24 15:07 12/03/24 10:47 Lorazepam 0.5 Mg Tab PO 01/01/25 15:06 0.5 mg Q8H PRN Administration Anxiety Melatonin 6 mg 12/02/24 21:33 12/02/24 21:41 Melatonin 3 Mg Tab PO 01/01/25 21:32 6 mg HS PRN Administration Sleep Menthol 1 geronimo 11/20/24 20:00 11/21/24 02:06 Cough Drop (Sugar Free) Geronimo 24 Geronimo/1 Box BUCCAL 12/20/24 19:59 1 geronimo Q3H PRN Administration Sore Throat Metoprolol Succinate 25 mg 12/02/24 21:00 12/03/24 09:09 Metoprolol Succ 25mg Ext Rel Tab PO 01/01/25 20:59 25 mg BID MARANDA Administration Miscellaneous 1 each 11/22/24 08:59 12/03/24 09:07 Remove Nicoderm Patch N/A 12/22/24 08:58 1 each DAILY@[id number] MARANDA Administration Multivitamins 1 tab 11/22/24 09:00 12/03/24 09:08 Multivitamin Tab PO 12/22/24 08:59 1 tab QAM MARANDA Administration Nicotine 1 patch 11/22/24 09:00 12/03/24 09:09 Nicotine 14 Mg/24 Hr Patch TD 12/22/24 08:59 1 patch QAM MARANDA Administration Nicotine Polacrilex 1 piece 11/27/24 15:34 11/27/24 15:46 Nicotine Polacrilex 2 Mg Gum MT 12/27/24 15:33 1 piece Q2H PRN Administration Cravings Oxycodone HCl 5 mg 11/24/24 01:20 12/03/24 10:47 Oxycodone Hcl Ir 5 Mg Tab (Immediate Release) PO 12/08/24 01:19 5 mg Q4H PRN Administration Pain Pantoprazole Sodium 40 mg 11/22/24 09:00 12/03/24 09:10 Pantoprazole 40 Mg Tab PO 12/22/24 08:59 40 mg DAILY MARANDA Administration Polyethylene Glycol 17 gm 11/26/24 07:34 11/26/24 07:48 Polyethylene (Miralax) 17 Gm Pack PO 12/26/24 07:33 17 gm DAILY PRN Administration Constipation Sertraline HCl 50 mg 11/19/24 09:00 11/26/24 08:42 Sertraline Hcl 50 Mg Tablet PO 12/19/24 08:59 50 mg QAM MARANDA Administration Thiamine HCl 100 mg 11/22/24 09:00 12/03/24 09:10 Thiamine Hcl 100 Mg Tab PO 12/22/24 08:59 100 mg DAILY MARANDA Administration Vitamin D 125 mcg 11/22/24 09:00 12/03/24 09:08 Cholecalciferol 125 Mcg (5,000 Units) Tab PO 12/22/24 08:59 125 mcg QAM MARANDA Administration (4) Chronic obstructive pulmonary disease COPD type: COPD with acute exacerbation Qualified Code(s): J44.1 - Chronic obstructive pulmonary disease with (acute) exacerbation
[2024-12-04 07:21] LABS: Basophils # (auto) 0.07 K/uL (0.00-0.20); Basophils % (auto) 0.3 %; Eosinophils # (auto) 0.11 K/uL (0.00-0.50); Eosinophils % (auto) 0.5 %; Hematocrit (blood only) 23.5 % (42.0-52.0); Hemoglobin 7.3 g/dl (14.0-18.0); Immature Granulocytes % (auto) 2.8 %; Lymphocytes # (auto) 0.88 K/uL (1.20-3.40); Lymphocytes % (auto) 4.1 %; Mean Corpuscular Hemoglobin 31.6 pg (25.0-34.0); Mean Corpuscular Hgb Conc 31.1 g/dL (32.0-36.0); Mean Corpuscular Volume 101.7 fL (80.0-100.0); Mean Platelet Volume 10.7 fL (9.4-12.4); Monocytes # (auto) 1.54 K/uL (0.11-0.59); Monocytes % (auto) 7.2 %; Neutrophils # (auto) 18.11 K/uL (1.40-6.50); Neutrophils % (auto) 85.1 %; Platelet Count 460 K/uL (130-400); RDW Coefficient of Variation 19.4 % (11.5-14.5); RDW Standard Deviation 71.2 fL (36.4-46.3); Red Blood Count 2.31 M/uL (4.70-6.10); White Blood Count 21.31 K/ul (4.8-10.8)
[2024-12-04 07:48] LABS: BUN Creatinine Ratio 5.9 (10-20); Calcium 8.6 mg/dl (8.6-10.3); Creatinine Clr Calc Pharmacy 15.8 ml/min; Magnesium 1.8 mg/dl (1.7-2.4); Phosphorus 5.2 mg/dl (2.5-4.9); Potassium 3.9 mmol/L (3.5-5.1)
[2024-12-04 07:49] LABS: Hypersegmented Neutrophils 1+; Polychromasia 1+; Stomatocytes 1+; Tear Drop Cells 1+
[2024-12-04] MEDS ORDERED: VANCOMYCIN CONSULT ACTIVE PRN ×2 (12:13→13:23)
--- NOTE | 2024-12-04 12:38 | XRay Report ---
HISTORY: Respiratory distress. TECHNIQUE: Portable AP radiograph of the chest. COMPARISON: Chest radiograph dated 11/27/2024. FINDINGS: The right lateral lower lung and costophrenic angle are excluded. Small left pleural effusion. Left lower lung opacity. Mild medial right lower lung opacity. No pneumothorax. Mild cardiomegaly. manager [employer] leads overlie the chest. No acute osseous abnormality. IMPRESSION: * Limited evaluation with the right costophrenic angle and lateral right lower lung not included. * No significant interval change. * Small left pleural effusion with similar left lower lung opacity, which could represent atelectasis or pneumonia. Similar medial right lower lung opacity. * Mild cardiomegaly. Electronically signed by Mikel Duong 12-04-2024 12:38 PM
[2024-12-04 12:59] LABS: Albumin Globulin Ratio 0.6 (0.9-2); Albumin Level 2.5 gm/dl (3.4-5.0); BUN Creatinine Ratio 5.8 (10-20); Bilirubin,Total 0.3 mg/dl (0.2-1.0); Calcium 9.1 mg/dl (8.6-10.3); Creatinine Clr Calc Pharmacy 14.4 ml/min; Globulin 3.9 gm/dl (2.5-4.0); Potassium 4.3 mmol/L (3.5-5.1); Total Protein 6.4 gm/dl (6.0-8.3)
--- NOTE | 2024-12-04 13:00 | Hospitalist Progress Note ---
Date of Service December 04, 2024 Assessment & Plan (1) Acute on chronic anemia: (2) Alcohol use disorder: (3) Obesity (BMI 30.0-34.9): (4) Chronic obstructive pulmonary disease: (5) Hypertension: (6) CAD (coronary artery disease): (7) GERD (gastroesophageal reflux disease): (8) Hepatic steatosis: (9) On home oxygen therapy: Plan Mr. Jimenez is a 59-year-old male with past medical history of COPD, SAROJ, hypertension, alcohol use disorder, coronary artery disease who presented to the hospital with shortness of breath and found to be in acute on chronic hypoxic/hypercarbic resp failure. He was noted to be agitated and intubated on 11/18 given progressive hypercapnic failure. Patient now on second HD session--still with notable volume needed for removal. Continuing to monitor off antibiotics at this time. Patient with ongoing poorly control anxiety--behavioral health consulted however, patient did not want to participate per documentation. Ripped out TDC on 12/02 overnight--discussed with nephrology, will trial x furosemide IV 100mg over weekend and assess for renal recovery. #Delirium #anxiety discontinue hydroxyzine prn given prolonged qtc, zoloft also discontinued for this reason continue buspar TID behavioral health consult--did not participate continue Abilify 2.5mg to help with behavior/anxiety #Acute kidney injury likely multifactorial ATN/obstructive uropathy/hypotension #anion gap metabolic acidosis iso renal failure #Anuria --Renal USD: Unremarkable sonographic appearance of the kidneys. Decompressed urinary bladder with Walton catheter in place. Cr: 2.4> 9.27 this am Avoid nephrotoxic agents as able Monitor renal function Nephrology following -s/p TDC 11/30, ripped out TDC overnight 12/02 s/p 3 sessions prior to ripping out the TDC Will start lasix 100mg IV daily Goal for 750-1000ml FR #LUE Cephalic vein thrombophlebitis The cephalic vein in the left forearm is thrombosed, consistent with superficial thrombophlebitis. Evaluated prior PIV site near left wrist on radial aspect--chordlike pattern noted, however no erythema no DVT on doppler High risk for AC Continue supportive care with hot compress and hold on AC at this time #Acute on chronic hypoxic/hypercarbic respiratory failure *stable #Acute COPD exacerbation #Septic shock resolved #Aspiration pneumonitis #Community-acquired pneumonia chronically on 3L NC Patient presented to the hospital with shortness of breath; found to have COPD exacerbation. --CTA chest on admission did not show PE; found to have mild reticular and patchy opacity in dependent lung bases. --Overnight on November 18, patient became agitated; requiring multiple doses of Ativan for suspected alcohol withdrawal; ABG showed acute hypercapnic respiratory failure. Patient was transferred to ICU and mechanically ventilated. Extubated on November 20, 2024 discontinue antibiotics (completed nearly 14 days) --Titrate supplemental oxygen to keep sats 88 to 92% --Continue on budesonide, formoterol nebs. Speech eval without signs of dysphagia #Leukocytosis #Thrombocytosis Persistent leukocytosis likely renal failure contributing BCx with NGTD, repeat cultures on 12/02 ordered low threshold for c diff testing ; however currently no abdominal pain, diarrhea suspect reactive at this time no clear source for infection #Alcohol use disorder #Alcohol withdrawal #Acute metabolic encephalopathy CT head showed no acute abnormality completed alcohol withdrawal taper Continue thiamine, folic acid Complete gabapentin protocol Avoid sedating medications as able #Wide-complex tachycardia suspect possible atrial flutter with rapid ventricular response #Bifascicular block Monitor and replete electrolytes as needed discontinued Coreg due to hypotension Continue of low dose metoprolol Appreciate cardiology input Transition to PO amiodarone 200mg BID, discontinue IV per cards -no plans for continued amio once volume status optimized holding on AC 2/2 risk at this time #Tobacco use disorder [id number] smoking history, currently smoking half a pack a day. #Hypokalemia resolved Replete and monitor reviewed labs and replaced with 40meq KCL #Hypocalcemia #Vitamin D deficiency PTH elevated Vitamin D level low Continue vitamin D supplements Monitor calcium levels Needs follow-up with endocrinology as outpatient Calcium levels improved Hold calcium supplements for now Monitor calcium levels #Coronary artery disease #Heart failure with preserved EF #Hypertension Continue statin Hold Coreg due to low blood pressure Diuretics held currently--volume control with HD # SAROJ Continue 3 L oxygen at bedtime #Chronic microcytic anemia likely multifactorial: Recent GI bleed, renal failure, alcohol use No obvious bleeding issues Monitor CBC Anemia workup: Low iron, normal folate and B12 levels Transfuse as needed if hemoglobin less than 7 #Recent GI bleedJanuary 2024 #Esophageal ulcer/gastritis Continue on Protonix DVT Px: Heparin SQ Code Status Full code Disposition Needs rehab placement when medically stable Admission and Anticipated Discharge Date Admission Date: November 18, 2024 Subjective Initially evaluated with Results & Data Results & Data Vital Signs (Past 12 Hours) Vital Signs Temp Pulse Pulse Pulse Resp BP Pulse Ox 12/04/24 11:38 37.4 C 135 H 22 126/73 95 12/04/24 08:00 12/04/24 07:35 98 H 20 90 12/04/24 07:30 36.6 C 100 H 20 141/81 H 90 12/04/24 05:32 91 H 12/04/24 02:47 36.6 C 80 16 111/78 92 O2 Del Method O2 Flow Rate 12/04/24 11:38 Nasal Cannula 12/04/24 08:00 Room Air 0 12/04/24 07:35 Room Air 12/04/24 07:30 Room Air 12/04/24 05:32 12/04/24 02:47 CPAP (4) Chronic obstructive pulmonary disease COPD type: COPD with acute exacerbation Qualified Code(s): J44.1 - Chronic obstructive pulmonary disease with (acute) exacerbation
[2024-12-04 13:04] LABS: Troponin I High Sensitivity 16.8 pg/ml (0-20)
[2024-12-04] MEDS: OPTIRAY 320 125ml IV ONE (13:06)
[2024-12-04 13:10] LABS: Basophils # (auto) 0.09 K/uL (0.00-0.20); Basophils % (auto) 0.3 %; Eosinophils # (auto) 0.12 K/uL (0.00-0.50); Eosinophils % (auto) 0.4 %; Hematocrit (blood only) 25.1 % (42.0-52.0); Hemoglobin 7.5 g/dl (14.0-18.0); Hypersegmented Neutrophils 1+; Immature Granulocytes # (auto) 0.99 K/uL (0.01-0.20); Immature Granulocytes % (auto) 3.2 %; Lymphocytes # (auto) 1.75 K/uL (1.20-3.40); Lymphocytes % (auto) 5.7 %; Mean Corpuscular Hemoglobin 30.5 pg (25.0-34.0); Mean Corpuscular Hgb Conc 29.9 g/dL (32.0-36.0); Mean Platelet Volume 10.5 fL (9.4-12.4); Monocytes # (auto) 1.65 K/uL (0.11-0.59); Monocytes % (auto) 5.3 %; Neutrophils # (auto) 26.37 K/uL (1.40-6.50); Neutrophils % (auto) 85.1 %; Nucleated RBC # (auto) 0.03 K/uL (0.00-0.12); Nucleated RBC % (auto) 0.1 %; Platelet Count 698 K/uL (130-400); Polychromasia 1+; RDW Coefficient of Variation 19.5 % (11.5-14.5); RDW Standard Deviation 72.7 fL (36.4-46.3); Red Blood Count 2.46 M/uL (4.70-6.10); Stomatocytes 1+; Tear Drop Cells 1+; Toxic Granulation 1+; Toxic Vacuolation 1+
--- NOTE | 2024-12-04 13:17 | Nephrology Progress Note ---
Date of Service December 04, 2024 Assessment & Plan (1) Acute kidney injury (nontraumatic): Plan: ALESSANDRO (acute kidney injury): Plan: Patient with the acute kidney injury due to ischemic ATN in setting of sepsis and hypotension. Patient is being treated for pneumonia. Creatinine was 1 prior to admission but peaked at 8.2 and patient start dialysis. patient remains anuric. Chest x-ray showed cardiomegaly and mild pulmonary vascular congestion. Electrolytes are stable. given worsening volume overload and being anuric, patient will benefit from dialysis. Risks and benefits were discussed. Patient has consented to dialysis. Vascular Surgery placed a PermCath on 11/30/24 and 1st dialysis session. - patient was dialyzed daily for 3 daysand was supposed to have dialysis today , However he accidently pulled his dialysis catheter yesterday night,Electrolytes are safe, and his oxygen requirement have not increase.H eis not on diuretics.Urine output has been in the Oligoauric range - Start on Furosemide 100 mg IV daily yesterday, UOP has pertially improved, However clearenace is poor. Also w/ him getting contrast today , its very unlikley that this will improve ant time soon.He will need a new catheter foro dialysis.Does not need it today but this may change. - keep on 750 mls of Fluid restriction daily. - He should also be on strict dialysis diet. - Continue to monitor input/output . - Plan agreed w/ Dr Perez. (2) Shortness of breath: Plan: likely due to pneumonia, COPD exacerbation and volume overload. Patient is getting antibiotics. will optimize volume status with dialysis -Looking at the events today , he may have PE. Admission and Anticipated Discharge Date Admission Date: November 18, 2024 Subjective Initially evaluated with staff nurse in am, when he appeared to be anxious and c/o SOb, Ocassioanl vacant look, According to the nursing staff he has been on room air in the night wo any complians.He was saturating @ 86 % on air which improved to 91 % on 2 l of oxygen -Primary team concerned of PE, he also has distended abdomen.He is now been moved to ICU and is due for CT chest w/ Abdo/ pelvis w/ contrast. Review of Systems 2 Review of Systems: All other systems were reviewed and negative except as noted in HPI Physical Exam 2 Physical Exam: 2-3+ bilateral pedal edema. Results & Data Vital Signs (Past 12 Hours) Vital Signs Temp Pulse Pulse Pulse Resp BP Pulse Ox 12/04/24 11:38 37.4 C 135 H 22 126/73 95 12/04/24 08:00 12/04/24 07:35 98 H 20 90 12/04/24 07:30 36.6 C 100 H 20 141/81 H 90 12/04/24 05:32 91 H 12/04/24 02:47 36.6 C 80 16 111/78 92 O2 Del Method O2 Flow Rate 12/04/24 11:38 Nasal Cannula 12/04/24 08:00 Room Air 0 12/04/24 07:35 Room Air 12/04/24 07:30 Room Air 12/04/24 05:32 12/04/24 02:47 CPAP Laboratory Results 12/04/24 12:25 12/04/24 12:25
[2024-12-04 13:22] LABS: White Blood Count 30.97 K/ul (4.8-10.8)
[2024-12-04] MEDS ORDERED: VANCOMYCIN HCL 2,500 MG in SODIUM CHLORIDE 0.9% 500 ML IV ONE (13:23)
[2024-12-04] MEDS ORDERED: SODIUM CHLORIDE 0.9% 50 ML IV PRN (13:25)
[2024-12-04] MEDS ORDERED: SODIUM CHLORIDE 0.9% 100 ML IV PRN (13:25)
[2024-12-04] MEDS ORDERED: STAT IV Infusion **Titration per Protocol STA ×3 (13:32→17:20)
[2024-12-04] MEDS ORDERED: fentaNYL BOLUS from BAG IV PRN ×2 (13:32→17:06)
--- NOTE | 2024-12-04 13:36 | CT Scan Report ---
HISTORY: Abdominal distention. Chest and abdominal pain. TECHNIQUE: CTA imaging of the chest was performed following uneventful administration of 119 mL of Optiray 320 IV contrast. Images are presented in axial, sagittal, and coronal reformats. Coronal and sagittal 3D MIP reconstructions are provided. COMPARISON: Chest CT dated 11/18/2024. FINDINGS: Lungs: Moderate layering bilateral pleural effusions with adjacent compressive atelectasis. Mild atelectasis along the posterior aspect of both upper lobes. There is mild emphysema. No suspicious pulmonary nodules or masses. No focal consolidation concerning for pneumonia. The central tracheobronchial tree is patent. Heart/Mediastinum: Normal heart size. Trace pericardial effusion. Coronary artery calcifications are present. Aortic valvular calcification.Thoracic esophagus is unremarkable. The included thyroid gland is unremarkable. Vasculature: No evidence of thoracic aortic aneurysm or acute aortic process. There is mild atherosclerotic vascular disease of the aorta and arch vessels. The main pulmonary artery is normal in caliber. No large or central PE. Evaluation of the segmental and subsegmental vessels is compromised by respiratory motion artifact. Soft Tissues: Bilateral gynecomastia. Body wall edema. Upper Abdomen: See separately reported CT of the abdomen and pelvis acquired at the same time for findings in the upper abdomen. Bones: Degenerative changes of the spine. No acute osseous abnormality. IMPRESSION: * No evidence of acute aortic process or acute pulmonary embolism. * Coronary artery calcifications are present. Small pericardial effusion. * Moderate size layering bilateral pleural effusions with adjacent compressive atelectasis. * See separately reported CTA of the abdomen and pelvis acquired at the same time for findings in the abdomen. Electronically signed by Mikel Duong 12-04-2024 13:35 PM
--- NOTE | 2024-12-04 13:40 | Procedure Note ---
Procedure Note Date of Service December 04, 2024 FEMORAL CENTRAL LINE PROCEDURE NOTE: Procedure: Right femoral Central Line Placement Indication: Central Drug Administration, Poor Venous Access, Multiple Lab Draws Necessary, etc. Anesthesia: None/8 mL lidocaine 1% Consent was signed and placed on the chart prior to procedure. Indication, risks, and benefits were explained at length. A time-out was completed verifying correct patient, procedure, site, positioning, and implants(s) or special equipment if applicable. Patients right groin was cleansed and draped in the typical sterile fashion using Chloraprep. The Femoral Vein and Femoral Artery were identified using ultrasound. The superficial tissue was anesthetized using 8 mL of 1% lidocaine without epinephrine under direct visualization with the ultrasound. After adequate anesthetization was achieved, the Femoral Vein was cannulated under direct ultrasound guidance using an introducer needle on a syringe. Good venous blood return was maintained prior to removal of syringe from introducer needle. Using Seldinger Technique, a guide wire was advanced through the introducer needle without resistance. The introducer needle was removed and ultrasound images were obtained of the guide wire within the Femoral Vein and saved to the patients medical record. A small incision was made in penetrating fashion at the guide wire insertion site utilizing an 11 blade scalpel. The dilator was advanced to the vessel without resistance. The dilator was exchanged for the triple lumen catheter which was advanced into the vessel without resistance. The guide wire was removed intact from the catheter without issue. Claves were placed on each catheter tip with confirmation of good blood flow from each lumen. Each port was easily flushed with sterile saline. The catheter was placed at the hub and sutured in place. BioPatch was applied to the catheter and a sterile Tegaderm dressing was applied over the catheter with careful attention to sterility. Patient tolerated procedure well. No immediate complications were met. Procedural Ultrasound Guidance utilized for placement of right femoral central line. [facility] [place] (Charges) Tubes, Drains, and Vasc Access Procedure 1: Tubes, Drains, and Vasc Access: [id number] Ultrasound Guidance For Vascular Procedure 2: Tubes, Drains, and Vasc Access: [id number] Place catheter in vein superior or inferior vena cava Coding CPT Codes Tubes, Drains, and Vasc Access - Tubes, Drains, and Vasc Access: [id number] Ultrasound Guidance For Vascular ([id number]) Tubes, Drains, and Vasc Access - Tubes, Drains, and Vasc Access: [id number] Place catheter in vein superior or inferior vena cava ([id number]) Additional Codes Date of Service ([facility].SURGERY)
[2024-12-04] MEDS: fentaNYL citrate PF 100 MCG/2 ML VIAL ONE (13:41)
[2024-12-04] MEDS: SODIUM BICARB 8.4% INJ 50 MEQ/50 ML SYR IV ONE (13:41)
[2024-12-04] MEDS: dexMEDEtomidine 200 MCG/50 ML BAG IV SCH (13:42)
[2024-12-04] MEDS: VANCOMYCIN HCL 2,250 MG in SODIUM CHLORIDE 0.9% 500 ML IV ONE (13:43)
[2024-12-04] MEDS: PIPERACILLIN/TAZOBACTAM 4.5 GM/100 ML BAG IV ONE ×2 (13:45→14:53)
--- NOTE | 2024-12-04 13:50 | CT Scan Report ---
HISTORY: Massively distended abdomen. Anemia. History ofalcohol withdrawal. TECHNIQUE: Helical CT imaging of the abdomen was performed following uneventful administration of 119 mL of Optiray 320 IV contrast. Images are presented in axial, sagittal, and coronal reformats. Coronal and sagittal MIP reconstructions are provided. COMPARISON: CTA of the chest from the same day. CT the abdomen pelvis without contrast dated 10/18/2024. FINDINGS: Lung Bases/Inferior Mediastinum: Moderate bilateral pleural effusions. Adjacent compressive atelectasis. Liver: Liver is unremarkable. Low-density perihepatic fluid. Gallbladder: Mild gallbladder distention without visible gallstones or significant wall thickening. No biliary ductal dilation. Spleen: Spleen is unremarkable. There isperisplenic low-density fluid. Adrenals: The right adrenal gland and left adrenal gland are unremarkable. Pancreas: Marked abnormality of the pancreas. Evidence of acute necrotizing pancreatitis with decreased enhancement involving the body and tail of the pancreas and significant surrounding complex inflammatory fluid. There are areas of high density within the complex fluid in the region of the pancreatic tail concerning for associated hemorrhage and hematoma. 1 potential focus of extravasation is seenanterior to the pancreatic tail on series 7 image 237 Measuring 0.5 cm in diameter. Extensive complex fluid extending along the left pararenal fascia and the left paracolic gutter inferiorly into the pelvis. There is fluid collection associated with the pancreatic head and extending inferiorly along the right retroperitoneum and right paracolic gutter. This communicates with large volume hemoperitoneum within the intraperitoneal anterior pelvis. No areas of extravasation are identified in the pelvis. Kidneys: Unremarkable Stomach/Bowel: Distal esophagus and stomach are unremarkable. The colon is normal in caliber. Lymph nodes: Unremarkable Vasculature: No thoracic aortic aneurysm. Moderate atherosclerotic vascular disease. There is a focus of contrast within the collection in the region of the pancreatic tail on series 7 image 237 measuring 5 mm, which could represent a focus of extravasation. There are additional areas of enhancement in the region of the distal body and tail of the pancreas also raising the possibility of extravasation, but favoring vascular contrast. Pelvis: Large volume of hemoperitoneum in the pelvis as previously described. Bladder is decompressed. A Walton catheter is in place. Soft Tissues: Body wall edema. Small fat-containing inguinal hernias. Small fat-containing umbilical hernia. Bones: Unremarkable IMPRESSION: * Findings consistent with acute hemorrhagic necrotizing pancreatitis with extensive complex fluid surrounding the pancreas with areas of necrosis and hematoma involving the distal body and tail of the pancreas. Possible focus of extravasation in the region of the body and tail of the pancreas with inflammatory fluid and hematoma extending along the left anterior pararenal fascia, left paracolic gutter, and retroperitoneum into the pelvis with large pelvic hemoperitoneum. Interventional radiology consultation is recommended. * Numerous chronic and/or incidental findings as detailed above. Findings were discussed with the ordering provider Dr. Read at 1:30 PM and 1:45 PM on 12/04/2024. Electronically signed by Mikel Duong 12-04-2024 13:50 PM
[2024-12-04 14:21] LABS: Hematocrit (blood only) 20.2 % (42.0-52.0); Hemoglobin 6.1 g/dl (14.0-18.0); Mean Corpuscular Hemoglobin 30.8 pg (25.0-34.0); Mean Corpuscular Hgb Conc 30.2 g/dL (32.0-36.0); Mean Platelet Volume 10.6 fL (9.4-12.4); Nucleated RBC # (auto) 0.02 K/uL (0.00-0.12); Nucleated RBC % (auto) 0.1 %; Platelet Count 708 K/uL (130-400); RDW Coefficient of Variation 19.6 % (11.5-14.5); Red Blood Count 1.98 M/uL (4.70-6.10); White Blood Count 39.35 K/ul (4.8-10.8)
[2024-12-04 14:34] LABS: Basophils # (auto) 0.11 K/uL (0.00-0.20); Basophils % (auto) 0.3 %; Eosinophils # (auto) 0.05 K/uL (0.00-0.50); Eosinophils % (auto) 0.1 %; Immature Granulocytes # (auto) 1.45 K/uL (0.01-0.20); Immature Granulocytes % (auto) 3.7 %; Lymphocytes % (auto) 2.5 %; Monocytes % (auto) 3.6 %; Neutrophils # (auto) 35.34 K/uL (1.40-6.50); Neutrophils % (auto) 89.8 %; Tear Drop Cells 1+
--- NOTE | 2024-12-04 14:34 | Procedure Note ---
Procedure Note Date of Service December 04, 2024 ARTERIAL LINE PROCEDURE NOTE: Procedure: Arterial Line Placement Indication: Monitoring on Pressors Anesthesia: None/5 mL lidocaine 1% Emergency consent was implied given the patient's severe hypotension and encephalopathy. Timeout performed immediately prior to the procedure. A time-out was completed verifying correct patient, procedure, site, positioning, and implant(s) or special equipment if applicable. Patients right wrist was prepped and draped in the usual sterile fashion. Ultrasound guidance was used to aid needle placement. A 20g Arrow arterial line was introduced into the radial artery. Catheter was threaded, and the needle was removed with ap propriate blood return. Good waveform was observed. The patient tolerated the procedure well. Blood Loss: Minimal Complications: None [facility] Procedure Codes (Charges) Tubes, Drains, and Vasc Access Procedure 1: Tubes, Drains, and Vasc Access: [id number] Ultrasonic Guide For Needle Placement Procedure 2: Tubes, Drains, and Vasc Access: [id number] Arterial Cath/Cannulation Sampling/Monitoring/Transfusion Coding CPT Codes Tubes, Drains, and Vasc Access - Tubes, Drains, and Vasc Access: [id number] Ultrasonic Guide For Needle Placement ([id number]) Tubes, Drains, and Vasc Access - Tubes, Drains, and Vasc Access: [id number] Arterial Cath/Cannulation Sampling/Monitoring/Transfusion ([id number]) Additional Codes Date of Service ([facility].SURGERY)
--- NOTE | 2024-12-04 14:37 | Critical Care Consultation ---
Date of Consultation December 04, 2024 Assessment & Plan (1) Acute necrotizing pancreatitis: (2) Hemorrhagic shock: (3) Acute encephalopathy: (4) Pleural effusion due to pancreatitis: (5) Alcohol use disorder: (6) Anemia: Plan 59-year-old male with a history of alcohol use disorder, hypertension, obesity, SAROJ, lumbar stenosis and diastolic heart failure who presented to the ICU today due to hemorrhagic shock and septic shock related to acute necrotizing pancreatitis Neurologic: Patient with intermittent delirium and acute encephalopathy. Avoid sedating medications. As needed pain control with IV Dilaudid given severe peritoneal symptoms. Pulmonary: Low threshold for intubation for airway protection. Currently saturating well on supplemental oxygen. Patient with bilateral effusions likely from volume overload related to acute renal failure, diastolic heart failure and possibly pancreatitis. Cardiovascular: Stat echocardiogram performed today revealed a small left ventricular cavity with an EF of greater than 70%. Right ventricle is mildly dilated. Trivial apical pericardial effusion noted. Holding all antiplatelets. Wide-complex tachycardia noted earlier this admission with atrial flutter and rapid ventricular response. Currently using phenylephrine to help with hypotension. Patient also on Levophed which we are actively titrating and trying to minimize given underlying atrial tachycardia. Patient received p.o. amiodarone earlier this admission. Gastrointestinal: Maintain n.p.o. status. Patient with massive acute necrotizing hemorrhagic pancreatitis. Currently receiving massive transfusion protocol. Patient with positive active extravasation from the tail of the pancreas. Patient will be transferred to a tertiary center for IR evaluation and possible embolization. Renal: Patient with ALESSANDRO secondary to sepsis and ATN. Patient advertently pulled out his hemodialysis catheter earlier this admission. Will monitor urine output closely via Walton. Creatinine rising. Will likely need reinsertion of the hemodialysis catheter and possible CRRT at a tertiary center. Infectious disease: Patient with acute necrotizing pancreatitis. Started vancomycin and Zosyn. Blood and urine cultures obtained. Hematologic: Massive transfusion protocol initiated. DIC labs pending. Status post 3 units of packed RBCs, 1 unit of platelets. Will give 50 mg of IV protamine sulfate as he received heparin subcu earlier today. Cephalic vein thrombosis noted 12/02/2024 with ultrasound Endocrine: Maintain euglycemia. Lines and tubes: Right femoral central line in place and right radial arterial line placed. Day 1. VTE prophylaxis: SCDs. CODE STATUS: Full code Family at bedside: Patient's sister updated over the phone Disposition: Awaiting transfer to tertiary center. Currently in ICU I have personally spent 69 minutes of critical care time in the direct management of this patient. This is a life/limb threatening event. This includes time spent evaluating patient, direct bedside care, chart review, placing orders, interpretation of diagnostic studies, discussion with consultants, patient, and family members, as well as other required patient management activities. This time is exclusive of all separately billable procedures, and teaching time and separate from and in addition to any other critical care service time. Thank you for allowing us to participate in the care of this patient. History of Present Illness Reason for Consultation: Shock Attending Physician: Gypsy Dumas MD History of Present Illness 59-year-old male with a history of alcoholism, SAROJ, COPD and hypertension who is presenting to the ICU today due to severe hemorrhagic shock and encephalopathy. When I went to evaluate him on the floor, his blood pressure was difficult to obtain with manual blood pressure cuff, he was diaphoretic, anxious and tachycardic. He was urgently moved to the ICU and right femoral central line was placed by me. He was then urgently sent for stat CTA of the chest and abdomen as his abdomen was firm and painful on palpation to him. CT abdomen pelvis revealed findings consistent with acute hemorrhagic necrotizing pancreatitis with extensive complex fluid surrounding the pancreas with areas of necrosis and hematoma involving the distal body and tail of the pancreas. There was a possible focus of extravasation in the region of the body of the tail of the pancreas with inflammatory fluid and hematoma extending to the left anterior pararenal fascia, left paracolic gutter, and retroperitoneum with large pelvic hemoperitoneum. Massive transfusion protocol was activated and the patient is currently receiving blood products. Patient also being actively titrated on phenylephrine and Levophed to maintain maps above 65 mmHg. Earlier this hospital patient suffered from ALESSANDRO thought to be ischemic ATN related to sepsis and hypotension. Fortunately, he inadvertently pulled out his right tunneled dialysis catheter earlier this admission and is currently without access for hemodialysis. Allergies Allergy/AdvReac Type Severity Reaction Status Date / Time TONIA Inhibitors AdvReac Severe ALESSANDRO Verified 11/30/24 12:31 ARB-Angiotensin Receptor AdvReac Severe ALESSANDRO Verified 11/30/24 12:31 Antagonist prednisone AdvReac Mild "jitterines Verified 11/30/24 12:31 s" Home Medications Medication Instructions Recorded Confirmed Type aspirin 81 mg tablet,delayed 81 mg PO QAM #30 tabs 03/09/23 11/18/24 Rx release atorvastatin 80 mg tablet 80 mg PO QAM 03/16/23 11/18/24 History baclofen 10 mg tablet 10 mg PO TID PRN Muscle Spasm 06/09/23 11/18/24 History ipratropium 0.5 mg-albuterol 3 mg 3 ml inhalation Q6H PRN 06/11/23 11/18/24 Rx (2.5 mg base)/3 mL nebulization wheezing/severe shortness of soln breath #90 mL furosemide 20 mg tablet 20 mg PO QAM 10/14/23 11/18/24 History potassium chloride 20 mEq 20 meq PO QAM 10/14/23 11/18/24 History tablet,extended release folic acid 1 mg tablet 1 mg PO QAM #30 tabs 12/07/23 11/18/24 Rx fluticasone fur. 200 mcg-umeclid 1 inh inhalation QAM 12/28/23 11/18/24 History 62.5 mcg-vilant 25 mcg inhalat.powder (Trelegy Ellipta) lorazepam 1 mg tablet 1 mg PO Q6 PRN Anxiety 10/18/24 11/18/24 History sertraline 50 mg tablet 50 mg PO QAM 10/18/24 11/18/24 History tramadol 50 mg tablet 50 mg PO Q6 PRN Pain 10/18/24 11/18/24 History carvedilol 3.125 mg tablet (Coreg) 3.125 mg PO BID #60 tabs 10/21/24 11/18/24 Rx multivitamin with folic acid 400 1 tab PO QAM 30 days #30 tabs 10/21/24 11/18/24 Rx mcg tablet (Daily-Karen (with folic acid)) nicotine 7 mg/24 hr daily 1 patch transdermal QAM #28 ea 10/21/24 11/18/24 Rx transdermal patch pantoprazole 40 mg tablet,delayed 40 mg PO UD #37 tabs 10/21/24 11/18/24 Rx release thiamine HCl (vitamin B1) 100 mg 100 mg PO QAM 30 days #30 tabs 10/21/24 11/18/24 Rx tablet Patient History Medical History On home oxygen therapy 2 LPM at HS Acute respiratory failure with hypoxia hospitalized at [facility] November 2023 for this, still having some shortness of breath with activity, at rest is okay Hepatic steatosis CAD (coronary artery disease) GERD (gastroesophageal reflux disease) controlled, stable per pt Kidney disease following with [facility] Nephrology. Sleep apnea no device Plaque psoriasis Hx of seasonal allergies Spinal stenosis History of shingles 05/2022, PRN gabapentin for chronic right eye irritation/pain from shingles Surgical History History of cardiac catheterization 02/2023 [facility]. no stents. History of back surgery lumbar > "bone spur shaving" Hx of arthroscopic knee surgery Left Hx of foot surgery Left Hx of inguinal hernia repair History of esophagogastroduodenoscopy (EGD) Family History Father Diabetes Social History Smoking Status: Current every day smoker Tobacco Type: Cigarettes Cigarettes Per Day: .5 pack a day; Second Hand Exposure: No; Do You Dip or Chew Tobacco: No; Hx Alcohol Use: Yes Alcohol type: hard liquor Alcohol Intake Frequency: 4 or More x per/Week Alcohol Intake Frequency Comment: 2-12 beers 5x/week Hx Substance Use: No Preferred Language: Latvian Communication Ability: Impaired Cake Mixer Required: No Beliefs That Will Affect Care: None Current Living Situation: Alone and Family Current Living Situation Comment: lives with mom Other Information That Helps Us Care for You: Yes Feels Safe at Home: Yes Safety Concerns: Feels Safe At This Time Assistive Devices: Cane and Nebulizer Review of Systems Review of Systems: All systems reviewed & are unremarkable except as noted in HPI & below Physical Exam Physical Exam: Constitutional: Pale, diaphoretic, clammy, obese and anxious. Eyes: Pupils are equal round and reactive to light. Conjunctivae are normal. Anicteric sclera. Ears nose, mouth and throat: Mallampati class 2. Normal posterior oropharynx. Uvula is midline. Neck: Trachea is midline. Visual inspection is normal. Respiratory: Mild bilateral lobe rhonchi with diminishment at the bases. Cardiovascular: Regular rate and rhythm. No murmurs. No edema. Gastrointestinal: Patient with firm and tense abdomen that is very tender to palpation. Musculoskeletal: No cyanosis. Patient is able to move all extremities. Strength is 5 out of 5 in the upper and lower extremities. Skin: No rashes, warm dry and intact. Neurologic: No obvious focal neurological deficits seen. Psychiatric: Alert and oriented x3 with a euthymic affect. Results & Data Results & Data Vital Signs (Past 12 Hours) Vital Signs Temp Pulse Pulse Pulse Resp BP Pulse Ox 12/04/24 11:38 37.4 C 135 H 22 126/73 95 12/04/24 08:00 12/04/24 07:35 98 H 20 90 12/04/24 07:30 36.6 C 100 H 20 141/81 H 90 12/04/24 05:32 91 H 12/04/24 02:47 36.6 C 80 16 111/78 92 O2 Del Method O2 Flow Rate 12/04/24 11:38 Nasal Cannula 12/04/24 08:00 Room Air 0 12/04/24 07:35 Room Air 12/04/24 07:30 Room Air 12/04/24 05:32 12/04/24 02:47 CPAP Coding Level of Care Code 75825 CRITICAL CARE 1ST 30-74M Diagnoses Acute necrotizing pancreatitis K85.91 Hemorrhagic shock R57.8 Acute encephalopathy G93.40 Pleural effusion due to pancreatitis K85.90; J91.8 Alcohol use disorder F10.90 Anemia D64.9
[2024-12-04 14:41] LABS: Fibrinogen 748 mg/dl (184-400); INR 1.1 (0.9-1.1); Partial Thromboplastin Ratio 1.1; Partial Thromboplastin Time 29 Seconds (21-31); Prothrombin Time 12.2 Seconds (9.0-12.0)
[2024-12-04] MEDS: METOPROLOL TARTRATE 1 MG/ML VIAL IV ONE (14:52)
[2024-12-04] MEDS: LORazepam 2 MG/1 ML VIAL ONE (14:53)
[2024-12-04] MEDS: LIDOCAINE 2% 20 MG/ML 5 ML SYR IV ONE (14:53)
[2024-12-04] MEDS: LIDOCAINE 2% LOCAL 50 ML VIAL ONE (14:53)
[2024-12-04] MEDS: LIDOCAINE 1% LOCAL 20 ML VIAL ONE (14:53)
[2024-12-04] MEDS: HYDROmorphone INJ 0.5 MG/0.5 ML SYR IV STA (14:55)
[2024-12-04] MEDS: CALCIUM GLUCONATE 1,000 MG/60 ML BAG IV SCH (14:55)
[2024-12-04] MEDS: HYDROmorphone INJ 0.5 MG/0.5 ML SYR ONE (14:55)
[2024-12-04] MEDS: PROTAMINE SULFATE 50 MG in DEXTROSE 5% 50 ML IV ONE (14:56)
--- NOTE | 2024-12-04 15:03 | Pharmacy Report ---
Pharmacy PK ABX Note - Date of Service December 04, 2024 - Assessment and Plan Assessment 59 year old M receiving vancomycin and Zosyn empirically in setting of hemorrhagic and septic shock 2/2 acute necrotizing pancreatitis. Blood cultures pending. On iHD- last 12/02 (no orders placed currently)- nephro following. Day #1 of antimicrobial therapy. Plan Vancomycin * Loading dose: 2250 mg IV x 1 * Given iHD in setting of critical illness, will obtain a random level tomorrow AM to guide further dosing. Pharmacy will continue to follow and will adjust dose/frequency as necessary. Thank you.
--- NOTE | 2024-12-04 15:12 | Discharge Summary ---
Discharge Summary Date of Service December 04, 2024 Principal Dx & Hospital Course #1 = Principal Diagnosis (1) Acute on chronic anemia: (2) Alcohol use disorder: (3) Obesity (BMI 30.0-34.9): (4) Chronic obstructive pulmonary disease: (5) Hypertension: (6) CAD (coronary artery disease): (7) GERD (gastroesophageal reflux disease): (8) Hepatic steatosis: (9) On home oxygen therapy: Plan Mr. Jimenez is a 59-year-old male with past medical history of COPD, SAROJ, hypertension, alcohol use disorder, coronary artery disease who presented to the hospital with shortness of breath and found to be in acute on chronic hypoxic/hypercarbic resp failure. He was noted to be agitated and intubated on 11/18 given progressive hypercapnic failure. Patient's course complicated by ATN requiring HD x 3 sessions after TDC placed on the 11/30. Despite removal, there was optimism for renal recovery potentially given increase in UOP with IV lasix. Patient's course also marked byh ongoing poorly control anxiety--behavioral health consulted however, patient did not want to participate per documentation. On 12/04, patient was initially evaluated at bedside in am with some confusion--however, not dissimilar to prior exams except mood more flat. Suspected related to new medications for anxiety. Shortly thereafter, called to bedside by nurse for concern for panic attack and HR in the 140s. Blood pressure was not able to be obtained by automatic or by manual. Labs from am without clear etiology for sudden hemodynamic instability. Decision was made to obtain contrasted studies as benefit greater than risk for return to dialysis. Imaging revealed acute hemorrhagic pancreatitis with developing hematoma extending in to left anterior pararenal fascia, paracolic gutter, retroperitoneum, and large pelvic hemoperitoneum, Patient transferred to ICU given hemorrhagic shock and MTP activated. Patient then transfered to [facility] for IR embolization given acute hemorrhage. #Hemorrhagic shock 2/2 acute hemorrhagic pancreatitis #Retroperitoneal bleed MTP initiated in ICU 3 PRBC, 1 FFP, 1 Cryo, 1 platelet thus far s/p protamine sulfate right femoral line, right art line 2x L PIV Currently on levo and lex precedex for agitation Transfer pending at this time #Acute kidney injury likely multifactorial ATN/obstructive uropathy/hypotension #anion gap metabolic acidosis iso renal failure #Anuria --Renal USD: Unremarkable sonographic appearance of the kidneys. Decompressed urinary bladder with Walton catheter in place. Cr: 2.4> 9.27 this am Avoid nephrotoxic agents as able Monitor renal function Nephrology following -s/p TDC 11/30, ripped out TDC overnight 12/02 s/p 3 sessions prior to ripping out the TDC started on lasix 100mg IV 12/03, however, will likely require HD given hypotension and contrast load No signs for emergent dialysis at this time until stabilized #Leukocytosis #Thrombocytosis Persistent leukocytosis likely renal failure contributing BCx with NGTD, repeat cultures on 12/02 ordered low threshold for c diff testing ; however currently no abdominal pain, diarrhea suspect reactive at this time no clear source for infection Resumed empiric coverage as of 12/04 with Vanc/Zosyn given decompensation #Acute on chronic hypoxic/hypercarbic respiratory failure *stable #Acute COPD exacerbation #Septic shock resolved #Aspiration pneumonitis #Community-acquired pneumonia chronically on 3L NC Patient presented to the hospital with shortness of breath; found to have COPD exacerbation. --CTA chest on admission did not show PE; found to have mild reticular and patchy opacity in dependent lung bases. --Overnight on November 18, patient became agitated; requiring multiple doses of Ativan for suspected alcohol withdrawal; ABG showed acute hypercapnic respiratory failure. Patient was transferred to ICU and mechanically ventilated. Extubated on November 20, 2024 discontinue antibiotics (completed nearly 14 days) --Titrate supplemental oxygen to keep sats 88 to 92% --Continue on budesonide, formoterol nebs. Speech eval without signs of dysphagia Other active medical conditions during hospitalization: #LUE Cephalic vein thrombophlebitis The cephalic vein in the left forearm is thrombosed, consistent with superficial thrombophlebitis. Evaluated prior PIV site near left wrist on radial aspect--chordlike pattern noted, however no erythema no DVT on doppler High risk for AC Continue supportive care with hot compress and hold on AC at this time #Alcohol use disorder #Alcohol withdrawal #Acute metabolic encephalopathy CT head showed no acute abnormality completed alcohol withdrawal taper Continue thiamine, folic acid Complete gabapentin protocol Avoid sedating medications as able #Wide-complex tachycardia suspect possible atrial flutter with rapid ventricular response #Bifascicular block Monitor and replete electrolytes as needed discontinued Coreg due to hypotension Continue of low dose metoprolol Appreciate cardiology input Transition to PO amiodarone 200mg BID, discontinue IV per cards -no plans for continued amio once volume status optimized holding on AC 2/2 risk at this time #Tobacco use disorder [id number] smoking history, currently smoking half a pack a day. #Hypokalemia resolved Replete and monitor reviewed labs and replaced with 40meq KCL #Delirium #anxiety discontinue hydroxyzine prn given prolonged qtc, zoloft also discontinued for this reason continue buspar TID behavioral health consult--did not participate continue Abilify 2.5mg to help with behavior/anxiety #Hypocalcemia #Vitamin D deficiency PTH elevated Vitamin D level low Continue vitamin D supplements Monitor calcium levels Needs follow-up with endocrinology as outpatient Calcium levels improved Hold calcium supplements for now Monitor calcium levels #Coronary artery disease #Heart failure with preserved EF #Hypertension Continue statin Hold Coreg due to low blood pressure Diuretics held currently--volume control with HD # SAROJ Continue 3 L oxygen at bedtime #Chronic microcytic anemia likely multifactorial: Recent GI bleed, renal failure, alcohol use No obvious bleeding issues Monitor CBC Anemia workup: Low iron, normal folate and B12 levels #Recent GI bleedJan2024 #Esophageal ulcer/gastritis Continue on Protonix Notes For Next Care Provider Transfer to [facility] for embolization iso hemorrhagic shock 2/2 pancreatic bleed Medication Changes From Visit Amiodarone initiated for A fib 200mg BID with plans for possible discontinution if volume optimized Coreg discontinuation Metoprolol 25mg BID Ariprazole 2.5mg for hallucinations/agitations/mood Buspar TID for anxiety Transferred to [facility]. Admission HPI Per Admitting Provider The patient is a 59-year-old male with a past medical history of nonocclusive CAD, PVD, HTN, HLD, COPD, SAROJ on CPAP, hepatic steatosis, anemia with recent GI bleed September 2024 who presents to the ED on 11/18/2024 with complaints of progressive shortness of breath. Patient reports wearing 2-3 L of oxygen at home as needed with sleep. Does report some noncompliance with that on a daily basis. Reports his shortness of breath significantly worsened today. Does report a chronic cough that has not changed recently. Still reports smoking almost a pack of cigarettes a day. Patient also endorses taking 3 shots of whiskey before bed daily. He denies any nausea/vomiting/diarrhea. He denies any fever/chills or other respiratory symptoms. Does report some intermittent wheezing. Patient was admitted to the hospital and discharged on 10/21/2024 for syncope and GI bleed, patient underwent a colonoscopy and EGD at that time that showed a small hiatal hernia, esophageal ulcer with no recent bleeding, grade C esophagitis and inflammationacute gastritis. Colonoscopy showed 5 polyps that were removed and nonbleeding hemorrhoids. The patient's aspirin was placed on hold and he was discharged on Protonix twice a day. On arrival to the ED, labs are remarkable for hemoglobin 11.1, pH 7.46, CO2 33, anion gap 13, AST 117, ALT 59, alk phos 228 BioFire negative Chest x-ray negative Chest CTA negative for PE, atelectasis versus early pneumonia in dependent lung bases noted EKG showed normal sinus rhythm right bundle branch block The patient was given IV Decadron/ceftriaxone and placed on 2 L of oxygen in the ED and will be admitted for further management of pneumonia/COPD exacerbation Admission Exam Per Admitting Provider Constitutional: WD/WN, vitals as above Eyes: PERRL, conjunctivae normal, anicteric sclerae ENMT: external ear and nose normal, oropharynx normal Neck: trachea midline, no thyromegaly Respiratory: normal respiratory effort, lungs clear to auscultation (Lungs are diminished, intermittent wheezing) Cardiovascular: RRR, no murmur, no edema Gastrointestinal (Abdomen): normal bowel sounds, soft, nontender, no hepatosplenomegaly Musculoskeletal: no cyanosis or clubbing, extremities motor strength 5/5 Neurologic: PERRL, EOMI, accommodation nl, no face palsy, no dysarthria Psychiatric: A+Ox3, euthymic affect Lymphatic: no cervical or axillary lymphadenopathy Discharge Exam Constitutional altered, generalized pallor, awake not oriented Respiratory tachypneic, otherwise some upper airway sounds, no wheezing or crackles Cardiovascular tachcyardic Gastrointestinal (Abdomen) notably distended and protuberant/firm Musculoskeletal 2+ pitting edema Skin ecchymosis Updated Medication List Medication Instructions Recorded Confirmed Type atorvastatin 80 mg tablet 80 mg PO QAM 03/16/23 11/18/24 History baclofen 10 mg tablet 10 mg PO TID PRN Muscle Spasm 06/09/23 11/18/24 History ipratropium 0.5 mg-albuterol 3 mg 3 ml inhalation Q6H PRN 06/11/23 11/18/24 Rx (2.5 mg base)/3 mL nebulization wheezing/severe shortness of soln breath #90 mL folic acid 1 mg tablet 1 mg PO QAM #30 tabs 12/07/23 11/18/24 Rx fluticasone fur. 200 mcg-umeclid 1 inh inhalation QAM 12/28/23 11/18/24 History 62.5 mcg-vilant 25 mcg inhalat.powder (Trelegy Ellipta) multivitamin with folic acid 400 1 tab PO QAM 30 days #30 tabs 10/21/24 11/18/24 Rx mcg tablet (Daily-Karen (with folic acid)) nicotine 7 mg/24 hr daily 1 patch transdermal QAM #28 ea 10/21/24 11/18/24 Rx transdermal patch pantoprazole 40 mg tablet,delayed 40 mg PO UD #37 tabs 10/21/24 11/18/24 Rx release thiamine HCl (vitamin B1) 100 mg 100 mg PO QAM 30 days #30 tabs 10/21/24 11/18/24 Rx tablet amiodarone 200 mg tablet 200 mg PO BIDM #0 tabs 12/04/24 Rx aripiprazole 5 mg tablet (Abilify) 2.5 mg (1/2 x 5 mg) PO QPM #0 tabs 12/04/24 Rx buspirone 5 mg tablet 5 mg PO TID #0 tabs 12/04/24 Rx metoprolol succinate 25 mg 25 mg PO BID #0 tabs 12/04/24 Rx tablet,extended release 24 hr Hospital Stay Data Consultations 11/18/24 15:38 ED Decision to Admit Stat 11/19/24 01:29 Consult [employer] Routine 11/26/24 07:54 Consult Nephrology Routine 11/28/24 14:00 Consult Vascular Surgery Routine 11/29/24 07:47 Consult Cardiology Routine 12/02/24 15:02 Consult Behavioral Health Liaison Routine 12/04/24 12:17 Consult [employer]el Engine Pipe [employer]itter Stat 12/04/24 14:46 Burn CD for patient Stat Procedures Performed Operation Date: 11/30/24 13:00 Actual Procedures p Perm Catheter Placement,Right Internal Jugular Approach,Ultrasound Localization of Right Internal Jugular Vein,Fluoroscopy for Positioning,Moderate Sedation [id number](Right) - David Kumar MD Diagnostic Imagining Performed 11/18/24 14:19 CT angio chest PE protocol Stat 11/24/24 12:16 CT head/brain wo con Urgent 11/25/24 09:04 US Renal Bladder [US renal/blad retro comp] Routine 11/26/24 12:08 US venous doppler LE BI Routine 11/30/24 07:40 EV cvc insrt tunnel wo prt/hoister Routine US EV guide vascular access Routine 12/02/24 18:43 US venous doppler UE LT Routine 12/04/24 12:34 CT for pulmonary embolism PE [CT angio chest PE protocol] Stat 12/04/24 12:52 CTA abdomen pelvis w con [CT angio abdomen pelvis w con] Stat Pending Results Patient Have Any Pending Studies at Discharge: No Discharge Instructions Given to Patient (Per Discharging Provider) Transfer to [facility] due to Acute hemorrhagic pancreatitis Total Time Total Time Spent Total Time Spent (In Minutes): 75
[2024-12-04] MEDS ORDERED: PIPERACILLIN/TAZOBACTAM 4.5 GM/100 ML BAG IV SCH ×2 (15:15→19:00)
[2024-12-04 15:22] LABS: Hemoglobin 7.8 g/dl (14.0-18.0); Mean Corpuscular Hgb Conc 31.2 g/dL (32.0-36.0); Mean Corpuscular Volume 96.2 fL (80.0-100.0); Mean Platelet Volume 10.4 fL (9.4-12.4); Nucleated RBC # (auto) 0.04 K/uL (0.00-0.12); Nucleated RBC % (auto) 0.1 %; Platelet Count 520 K/uL (130-400); RDW Coefficient of Variation 19.5 % (11.5-14.5); RDW Standard Deviation 67.9 fL (36.4-46.3); White Blood Count 39.34 K/ul (4.8-10.8)
[2024-12-04] MEDS: LORazepam 2 MG/1 ML VIAL IV STA (15:33)
[2024-12-04] MEDS: METOPROLOL TARTRATE 1 MG/ML VIAL IV STA (15:33)
[2024-12-04] MEDS: PHENYLEPHRINE HCL 25 MG/250 ML NSS IV ONE (15:41)
[2024-12-04 15:50] LABS: Appearance Urine Cloudy (Clear); Bacteria Urine Automated None Seen (None Seen); Bilirubin Urine Negative (Negative); Blood Urine 2+ (Negative); Color Urine Yellow; Epithelial Cell Urine Auto 0-2 /hpf (0-2); Glucose Urine UA Negative (Negative); Ketones Urine Negative (Negative); Leukocyte Esterase Urine 1+ (Negative); Nitrite Urine Negative (Negative); Protein Urine 1+ (Negative); Specific Gravity Urine 1.008 (1.000-1.030); Urobilinogen Urine Negative (Negative); WBC Urine Automated 21-50 /hpf (0-5)
[2024-12-04 16:00] LABS: Fibrinogen 587 mg/dl (184-400); INR 1.2 (0.9-1.1); Prothrombin Time 13.1 Seconds (9.0-12.0)
[2024-12-04 16:13] VITALS: TEMP 99
[2024-12-04] MEDS ORDERED: PROPOFOL BOLUS FROM BAG IV PRN (17:06)
--- NOTE | 2024-12-04 17:09 | Procedure Note ---
Procedure Note Date of Service December 04, 2024 INTUBATION PROCEDURE NOTE: Dr. Robb eRad A time-out was completed verifying correct patient, procedure, site, positioning. Patient was evaluated and required intubation for worsening encephalopathy and increased work of breathing. Sedative agent used: 150 mg of ketamine and 50 mcg of fentanyl Paralysis agent used: 75 mg of rocuronium Written consent was obtained from the patient's sister who is the DPOA. Risks and benefits of the procedure discussed with the patient and patient's sister. Timeout performed immediately prior to the procedure. Number of attempts: 1 Grade view: 1 The patient was prepared in the appropriate fashion. Sedation was achieved utilizing ketamine and fentanyl and rocuronium. The patient was easily ventilated using [id number] to achieve adequate oxygenation. A 8.0 Mongolian endotracheal tube was placed under glide scope guidance to 25 cm at the lip. The stylette was removed and balloon was inflated with 10mL of air. Appropriate Colorimetric change was appreciated. Bilateral breath sounds were heard without air sounds in the abdomen. Post Intubation Chest X-ray ordered. Patient tolerated the procedure well and there were no immediate complications. [facility] [place]odes (Charges) Resuscitation Resuscitation: 64187 Endotracheal Intubation, emergency Coding CPT Codes Resuscitation - Resuscitation: 55198 Endotracheal Intubation, emergency ([id number]) Additional Codes Date of Service (PG.SURGERY)
[2024-12-04] MEDS ORDERED: fentaNYL citrate 2,500 MCG/250 ML BAG IV SCH (17:15)
[2024-12-04] MEDS: propofoL 1,000 MG/100 ML VIAL IV SCH (17:33)
[2024-12-04] MEDS: NOREPINEPHRINE/D5W 4 MG/250 ML PLCT IV SCH (17:36)
[2024-12-04] MEDS: PHENYLEPHRINE/NSS 25 MG/250 ML BAG IV SCH (17:36)
--- NOTE | 2024-12-04 17:44 | XRay Report ---
EXAMINATION: X-ray KUB/abdomen 1 view CLINICAL HISTORY: Status post intubation, NG tube placement PRIORS: CT abdomen yesterday TECHNIQUE: Single frontal view abdomen FINDINGS: . Nasogastric tube is now present terminating in the stomach in the left upper quadrant with appropriate placement. Overall paucity of bowel gas noted. No dilated loops of bowel. IMPRESSION: Nasogastric tube present terminating in the stomach. Electronically signed by Ankita Flores 12-04-2024 5:43 PM
--- NOTE | 2024-12-04 17:45 | XRay Report ---
EXAM: X-ray chest one-view portable CLINICAL HISTORY: Status post intubation PRIORS: None TECHNIQUE: Frontal view chest FINDINGS: Lung volumes diminished. Nasogastric tube present terminating 1.5 cm superior to the la No pneumothorax. No confluent opacification. Osseous structures demonstrate no acute abnormality. No radiopaque foreign body. IMPRESSION: Low-lying endotracheal tube now present 1.5 cm superior to the la. Tube could be withdrawn approximately 3.5 to 4 cm. Electronically signed by Ankita Flores 12-04-2024 5:43 PM
[2024-12-04 17:46] VITALS: BP 107/64; O2SAT 97
[2024-12-04] MEDS: ICU Protocol for HYPERglycemia SCH (18:01)
[2024-12-04] MEDS: RAPID SEQUENCE INDUCTION BAG ONE (18:02)
[2024-12-04 18:15] VITALS: PULSE 89; RESP 18
[2024-12-04] MEDS ORDERED: ROCURONIUM BROMIDE 10 MG/ML 5 ML VIAL IV ONE (18:46)
[2024-12-04] MEDS ORDERED: fentaNYL citrate PF 100 MCG/2 ML VIAL IV ONE (18:46)
[2024-12-04] MEDS ORDERED: KETAMINE HCL INJ 50 MG/ML 10 ML VIAL IV ONE (18:46)
[2024-12-04 20:38] LABS: iSTAT Art Bld Gas pCO2 Correct 49 mmHg (35-46); iSTAT Art Bld Gas pH Corrected 7.271 (7.35-7.45); iSTAT Arterial Blood Gas HCO3 22 meg/L (19-24); iSTAT Arterial Blood Gas pCO2 49 mmHg (35-46); iSTAT Arterial Blood Gas pH 7.27 (7.35-7.45); iSTAT Arterial Blood Gas pO2 90 mmHg (80-95); iSTAT Arterial Blood Gas pO2 C 90; iSTAT Carbon Dioxide 24 mmol/L (24-31); iSTAT FiO2 100 %; iSTAT Hematocrit 30 % (42-52); iSTAT Hemoglobin 10.2 g/dl (14.0-18.0); iSTAT Potassium 5.1 mmol/L (3.3-5.0); iSTAT Sample Type Arterial; iSTAT Site Art Line; iSTAT Sodium 135 mmol/L (135-144); iSTAT SpO2 97
--- NOTE | 2024-12-05 14:01 | Electrocardiogram Report ---
Test Reason : Blood Pressure : */* mmHG Vent. Rate : 142 BPM Atrial Rate : 142 BPM P-R Int : 100 ms QRS Dur : 118 ms QT Int : 278 ms P-R-T Axes : * -44 31 degrees QTcB Int : 427 ms Poor data quality, interpretation may be adversely affected Sinus tachycardia Left axis deviation Incomplete right bundle branch block Nonspecific ST and T wave abnormality Abnormal ECG When compared with ECG of 01-Dec-2024 17:08, [place] interval has decreased Vent. rate has increased by 47 bpm Incomplete right bundle branch block has replaced Right bundle branch block Confirmed by Sharif Becker ([id number]) on 12/05/2024 2:01:01 PM Referred By: REFERRED SELF Confirmed By: Sharif Becker
== END 2024-12-04 18:47 | disposition short-term general hospital (02) | DRG 871 ==
LOC: ED 13:39 → SUATTDRO 16:01 → 4W 16:01 → 1E 11-19 01:13 → 2N 11-23 16:47 → 2S 11-24 05:28 → 1E 12-04 12:45

== ENCOUNTER 2025-03-27 05:15 | Inpatient (IN) ==
[2025-03-27 06:08] LABS: Hematocrit (blood only) 26.6 % (42.0-52.0); Hemoglobin 8.3 g/dl (14.0-18.0); Immature Granulocytes # (auto) 0.20 K/uL (0.01-0.20); Immature Granulocytes % (auto) 1.3 %; Mean Corpuscular Hemoglobin 31.0 pg (25.0-34.0); Mean Corpuscular Volume 99.3 fL (80.0-100.0); Platelet Count 737 K/uL (130-400); RDW Standard Deviation 60.0 fL (36.4-46.3); Red Blood Count 2.68 M/uL (4.70-6.10); White Blood Count 15.79 K/ul (4.8-10.8)
[2025-03-27 06:26] LABS: Alanine Aminotransferase 45.0 U/L (7-52); Albumin Globulin Ratio 0.6 (0.9-2); Alkaline Phosphatase 347.0 U/L (34-104); Anion Gap 10.0 (3-11); Bilirubin,Total 0.4 mg/dl (0.2-1.0); Blood Urea Nitrogen 25.0 mg/dl (6-23); Calcium 9.7 mg/dl (8.6-10.3); Carbon Dioxide 23.0 mmol/L (21-32); Chloride 101.0 mmol/L (98-107); Creatinine Clr Calc Pharmacy 99.6 ml/min; Globulin 4.8 gm/dl (2.5-4.0); Glucose 92.0 mg/dl (70-99(Fasting)); Lipase 9.0 U/L (11-82); Magnesium 1.5 mg/dl (1.7-2.4); Potassium 4.1 mmol/L (3.5-5.1); Sodium 134.0 mmol/L (136-145); Total Protein 7.8 gm/dl (6.0-8.3)
[2025-03-27] MEDS: OPTIRAY 320 100ml IV ONE (06:51)
--- NOTE | 2025-03-27 07:09 | Emergency Department Note ---
Impression & Plan Wound of abdomen, Wound, open, abdominal wall, anterior with complication, Ambulatory dysfunction, Leukocytosis ED Provider Note NAME: PAVITHRA CHENG AGE: 59 SEX: M : 1965 ARRIVES VIA: Walk-In INFORMANT: Patient, ED PROVIDER(S): Lola Forde MD CHIEF COMPLAINT: Abdominal pain/drainage HPI: This is a 59-year-old male present for abdominal pain/drainage. Patient notes that [facility] was at [facility] and discharged yesterday. He had a prolonged stay in which he came to this hospital, was transferred outside hospital where he had an open wound after surgery. He had a wound VAC placed that was removed. He notes increasing yellow drain over the past 1 to 2 days. He says it is painful to the touch chronically. Reports no fevers or chills with this. No nausea or vomiting. No diarrhea. No chest pain or shortness of breath. ROS: See above HPI for pertinent positives & negatives. A total of 10 systems reviewed and were otherwise negative. PAST MEDICAL HISTORY: See Below PAST SURGICAL HISTORY: See Below FAMILY HISTORY: See Below SOCIAL HISTORY: See Below HOME MEDICATIONS: See Below ALLERGIES: See Below VITALS: See Below PHYSICAL EXAMINATION: General: resting comfortably in no acute distress Head: Normocephalic and atraumatic Eyes: Normal inspection, extraocular muscles intact Ear, nose, throat: Normal external exam Neck: Normal range of motion Respiratory: lungs clear to auscultation bilaterally Cardiovascular: Regular rate/rhythm, no murmur GI: distended, central wound with pink scar tissue, area of open lesion to the superior, slight serous drainage Extremities: nontender, moves all extremities Neuro: The patient awake and alert, appropriately conversive, no focal deficits, symmetric faces Skin: Warm, dry, and intact MEDICAL DECISION MAKING: This is a 59-year-old male present for abdominal pain/drainage. I have assessed this abdominal wound, there is a central wound with pink scar tissue, appears well without signs of infection. The area of opening above does reveal serous drainage. Will do a culture of this. Otherwise he does have signs of overt infection here either. Will do CT abdomen/pelvis to assess for deeper infection. Will do basic blood work. - Blood work reveals leukocytosis to 15.79, hemoglobin 8.3. Electrolytes within normal limits. - CT imaging reveals regression of fluid collections in the abdomen with unchanged collection of the perisplenic and left paracolic spaces - There is a new fat surrounding multiple air foci in the anterior abdomen wall of the umbilical region - Discussed care with patient and family. They request help with patient's clinical status and taking care of at home. They request SNF placement as he is unable to walk due to pain as well. - However patient does not appear to be septic; awaiting culture otherwise - Will discuss admission for SNF placement with [facility] service, Dr. Cervantes Differential diagnosis: Sepsis, abdominal wound infection, dehiscence, fistula, abscess Independent History obtained from: Sister, [id number] Diagnostics interpreted by me: ECG: None Cardiac Monitoring: An order was placed for continuous cardiac monitoring. The monitor shows a rate of 111 with sinus rhythm. Past Med/Surg History Problem List (Updated 03/28/25 @ 15:32 by Lola Forde MD) Wound, open, abdominal wall, anterior with complication (Acute) Wound of abdomen (Acute) Wound infection after surgery Pressure injury of sacral region, stage 1 Ambulatory dysfunction (Acute) Thrombocythemia Pericardial effusion Sepsis Hypomagnesemia (Acute) Leukocytosis (Acute) CHF (congestive heart failure) (Acute) Chronic obstructive pulmonary disease (Chronic) hospitalized at [facility] November 2023 for this, still having some shortness of breath with activity, at rest is okay Medical History (Updated 03/28/25 @ 15:32 by Lola Forde MD) Splenic abscess SVT (supraventricular tachycardia) C. difficile colitis Hypertension controlled, stable per pt Tobacco use disorder Anemia Obesity (BMI 30.0-34.9) Alcohol use disorder Encounter for pre-operative examination Lab test negative for COVID-19 virus RSV (respiratory syncytial virus infection) Sleep disorder breathing Neurogenic claudication due to lumbar spinal stenosis Anemia Near syncope Hypotension Acute on chronic anemia Shortness of breath Pneumonia Transaminitis Respiratory failure requiring intubation Acute kidney failure Renal failure Atrial flutter with rapid ventricular response Nonobstructive atherosclerosis of coronary artery Volume overload Diastolic dysfunction Hypertensive heart disease Acute kidney injury (nontraumatic) Acute necrotizing pancreatitis Hemorrhagic shock Acute encephalopathy Pleural effusion due to pancreatitis Acute on chronic diastolic CHF (congestive heart failure) Sepsis due to pneumonia Hypoxia Hypoxia Anemia Pulmonary emboli Pedal edema Hemoptysis Left-sided epistaxis Right hip pain Osteonecrosis of both hips Necrotizing pancreatitis Heme positive stool On home oxygen therapy 2 LPM at HS Hepatic steatosis CAD (coronary artery disease) GERD (gastroesophageal reflux disease) controlled, stable per pt Kidney disease following with [facility] Nephrology. Plaque psoriasis Hx of seasonal allergies Spinal stenosis History of shingles 05/2022, PRN gabapentin for chronic right eye irritation/pain from shingles Surgical History (Updated 03/27/25 @ 14:43 by DRAGAN Brush) History of exploratory laparotomy History of cardiac catheterization 02/2023 [facility]. no stents. History of back surgery lumbar > "bone spur shaving" Hx of arthroscopic knee surgery Left Hx of foot surgery Left Hx of inguinal hernia repair History of esophagogastroduodenoscopy (EGD) Family History Father Diabetes Social History (Updated 03/27/25 @ 14:44 by DRAGAN Brush) Smoking Status: Former smoker Tobacco Type: Cigarettes Cigarettes Per Day: .5 pack a day; Second Hand Exposure: No; Do You Dip or Chew Tobacco: No; Hx Alcohol Use: No Hx Substance Use: No Preferred Language: Bengali Communication Ability: Effective Porcelain Enamel Repairer Required: No Beliefs That Will Affect Care: None Current Living Situation: Family Current Living Situation Comment: Living with [facility] s/p discharge [facility] 03/26/2025 Other Information That Helps Us Care for You: No Feels Safe at Home: Yes Safety Concerns: Feels Safe At This Time Assistive Devices: Walker and Wheelchair Allergies Allergies Allergy/AdvReac Type Severity Reaction Status Date / Time TONIA Inhibitors AdvReac Severe ALESSANDRO Verified 03/14/25 08:19 ARB-Angiotensin Receptor AdvReac Severe ALESSANDRO Verified 03/14/25 08:19 Antagonist prednisone AdvReac Mild "jitterines Verified 03/14/25 08:19 s" Home Meds Home Medications Medication Instructions Recorded Confirmed apixaban 5 mg tablet (Eliquis) 5 mg PO BID 02/02/25 03/27/25 fluticasone fur. 200 mcg-umeclid 1 inh inhalation DAILY 02/02/25 03/27/25 62.5 mcg-vilant 25 mcg inhalat.powder (Trelegy Ellipta) albuterol sulfate 90 mcg/actuation 2 puff inhalation Q4 PRN sob or 03/27/25 03/27/25 aerosol inhaler wheezing atorvastatin 80 mg tablet 80 mg PO DAILY 03/27/25 03/27/25 folic acid 1 mg tablet 1 mg PO DAILY 03/27/25 03/27/25 metoprolol succinate 25 mg 75 mg PO BID 03/27/25 03/27/25 tablet,extended release 24 hr oxycodone 10 mg tablet 10 mg PO TID PRN Pain 03/27/25 03/27/25 pantoprazole 40 mg tablet,delayed 40 mg PO DAILY 03/27/25 03/27/25 release pregabalin 50 mg capsule 50 mg PO TID 03/27/25 03/27/25 sertraline 50 mg tablet 50 mg PO DAILY 03/27/25 03/27/25 simethicone 80 mg chewable tablet 80 mg PO BID PRN Constipation 03/27/25 03/27/25 thiamine HCl (vitamin B1) 100 mg 100 mg PO DAILY 03/27/25 03/27/25 tablet vancomycin 250 mg capsule 250 mg PO DAILY 03/27/25 03/27/25 Results & Data (ED) Vital Signs Vital Signs - 24 hr 03/27/25 07:24 03/27/25 07:27 03/27/25 07:30 Pulse Rate 91 H 89 Pulse Rate from SpO2 Sensor 90 91 H Respiratory Rate 10 L 16 Blood Pressure 130/77 Blood Pressure Mean 96 Pulse Oximetry 92 95 03/27/25 07:36 03/27/25 07:45 03/27/25 07:51 Pulse Rate 93 H 90 96 H Pulse Rate from SpO2 Sensor 93 H 90 96 H Respiratory Rate 11 L 12 12 Blood Pressure Blood Pressure Mean Pulse Oximetry 93 93 94 03/27/25 08:09 03/27/25 08:30 03/27/25 08:33 Pulse Rate 93 H 113 H Pulse Rate from SpO2 Sensor 93 H Respiratory Rate 14 39 H Blood Pressure 126/76 Blood Pressure Mean 88 Pulse Oximetry 92 03/27/25 08:42 03/27/25 08:57 03/27/25 09:00 Pulse Rate 92 H 90 Pulse Rate from SpO2 Sensor Respiratory Rate 14 12 Blood Pressure 118/74 Blood Pressure Mean 93 Pulse Oximetry 03/27/25 09:00 03/27/25 09:21 03/27/25 09:35 Pulse Rate 91 H 90 89 Pulse Rate from SpO2 Sensor Respiratory Rate 13 14 Blood Pressure Blood Pressure Mean Pulse Oximetry 03/27/25 09:39 03/27/25 09:57 03/27/25 10:00 Pulse Rate 97 H 96 H Pulse Rate from SpO2 Sensor Respiratory Rate 15 20 Blood Pressure 130/77 Blood Pressure Mean 93 Pulse Oximetry 03/27/25 10:09 03/27/25 10:12 03/27/25 10:21 Pulse Rate 92 H 89 97 H Pulse Rate from SpO2 Sensor Respiratory Rate 50 H 14 15 Blood Pressure Blood Pressure Mean Pulse Oximetry 03/27/25 10:27 03/27/25 10:30 03/27/25 10:51 Pulse Rate 101 H 99 H Pulse Rate from SpO2 Sensor Respiratory Rate 21 16 Blood Pressure 137/83 Blood Pressure Mean 97 Pulse Oximetry 96 03/27/25 10:54 03/27/25 11:00 03/27/25 11:03 Pulse Rate 101 H 107 H Pulse Rate from SpO2 Sensor Respiratory Rate 18 18 Blood Pressure 102/68 Blood Pressure Mean 72 Pulse Oximetry 98 03/27/25 11:12 03/27/25 11:21 03/27/25 11:30 Pulse Rate 103 H 102 H Pulse Rate from SpO2 Sensor Respiratory Rate 14 15 Blood Pressure 107/67 Blood Pressure Mean 71 Pulse Oximetry 03/27/25 11:36 03/27/25 11:48 03/27/25 11:51 Pulse Rate 102 H 99 H 107 H Pulse Rate from SpO2 Sensor Respiratory Rate 15 14 19 Blood Pressure Blood Pressure Mean Pulse Oximetry 03/27/25 11:57 03/27/25 12:00 03/27/25 12:21 Pulse Rate 100 H 99 H Pulse Rate from SpO2 Sensor Respiratory Rate 18 21 Blood Pressure 118/71 Blood Pressure Mean 96 Pulse Oximetry 03/27/25 12:24 03/27/25 12:30 03/27/25 12:33 Pulse Rate 99 H 96 H Pulse Rate from SpO2 Sensor Respiratory Rate 19 12 Blood Pressure 118/73 Blood Pressure Mean 85 Pulse Oximetry 03/27/25 12:42 03/27/25 12:57 03/27/25 13:00 Pulse Rate 95 H 97 H Pulse Rate from SpO2 Sensor Respiratory Rate 16 17 Blood Pressure 115/75 Blood Pressure Mean 86 Pulse Oximetry 03/27/25 13:00 03/27/25 13:18 03/27/25 13:30 Pulse Rate 97 H 97 H Pulse Rate from SpO2 Sensor Respiratory Rate 16 18 Blood Pressure 126/79 Blood Pressure Mean 94 Pulse Oximetry 03/27/25 13:30 Pulse Rate 94 H Pulse Rate from SpO2 Sensor Respiratory Rate 20 Blood Pressure Blood Pressure Mean Pulse Oximetry Laboratory Data 03/28/25 05:57 03/28/25 05:57 Lab Results 03/27/25 03/27/25 Range/Units 05:38 08:35 WBC 15.79 H (4.8-10.8) K/ul RBC 2.68 L (4.70-6.10) M/uL Hgb 8.3 L (14.0-18.0) g/dl Hct 26.6 L (42.0-52.0) % MCV 99.3 (80.0-100.0) fL MCH 31.0 (25.0-34.0) pg MCHC 31.2 L (32.0-36.0) g/dL RDW Std Deviation 60.0 H (36.4-46.3) fL RDW Coeff of Rogelio 16.6 H (11.5-14.5) % Plt Count 737 H (130-400) K/uL MPV 10.0 (9.4-12.4) fL Immature Gran % (Auto) 1.3 % Neut % (Auto) 77.8 % Lymph % (Auto) 7.2 % Storey % (Auto) 12.0 % Eos % (Auto) 1.3 % Baso % (Auto) 0.4 % Neut # (Auto) 12.30 H (1.40-6.50) K/uL Lymph # (Auto) 1.14 L (1.20-3.40) K/uL Storey # (Auto) 1.89 H (0.11-0.59) K/uL Eos # (Auto) 0.20 (0.00-0.50) K/uL Baso # (Auto) 0.06 (0.00-0.20) K/uL Immature Gran # (Auto) 0.20 (0.01-0.20) K/uL Sodium 134 L (136-145) mmol/L Potassium 4.1 (3.5-5.1) mmol/L Chloride 101 (98-107) mmol/L Carbon Dioxide 23 (21-32) mmol/L Anion Gap 10 (3-11) BUN 25 H (6-23) mg/dl Creatinine 0.88 (0.6-1.4) mg/dl Est Cr Clr Drug Dosing 99.6 ml/min eGFR 97.83 BUN/Creatinine Ratio 28.4 H (10-20) Glucose 92 (70-99(Fasting)) mg/dl Lactate 1.2 (0.4-2.0) mmol/L Calcium 9.7 (8.6-10.3) mg/dl Magnesium 1.5 L (1.7-2.4) mg/dl Total Bilirubin 0.4 (0.2-1.0) mg/dl AST 45 H (13-39) U/L ALT 45 (7-52) U/L Alkaline Phosphatase 347 H (34-104) U/L Total Creatine Kinase 216 (30-223) U/L Total Protein 7.8 (6.0-8.3) gm/dl Albumin 3.0 L (3.4-5.0) gm/dl Globulin 4.8 H (2.5-4.0) gm/dl Albumin/Globulin Ratio 0.6 L (0.9-2) Lipase 9 L (11-82) U/L Urine Color Yellow Urine Appearance Clear (Clear) Urine pH 5.5 (4.5-7.5) Ur Specific [place] 1.026 (1.000-1.030) Urine Protein 2+ H (Negative) Urine Glucose (UA) Negative (Negative) Urine Ketones Negative (Negative) Urine Blood 3+ H (Negative) Urine Nitrite Negative (Negative) Urine Bilirubin Negative (Negative) Urine Urobilinogen Negative (Negative) Ur Leukocyte Esterase Negative (Negative) Urine WBC (Auto) 0-5 (0-5) /hpf Urine RBC (Auto) 11-20 H (0-2) /hpf U Hyaline Cast (Auto) 3-5 H (0-2) /lpf U Epithel Cells (Auto) 0-2 (0-2) /hpf Urine Bacteria (Auto) None Seen (None Seen) Urine Comment Administered Medications Acetaminophen (Acetaminophen 500 Mg Tab) 1,000 mg PO Q4H PRN PRN Reason: Mild-Mod Pain (Scale 1-6) Stop: 04/26/25 16:18 Last Admin: 03/28/25 08:10 Dose: 1,000 mg Documented By: DIANE Apixaban (Apixaban 5 Mg Tablet) 5 mg PO Q12H MARANDA Stop: 04/26/25 16:29 Last Admin: 03/28/25 08:11 Dose: 5 mg Documented By: Admin: 03/27/25 17:27 Dose: 5 mg Documented By: SABRINA Connolly Syrup (Connolly Syrup 5 Ml Udp) 5 ml PO DAILY MARANDA Stop: 04/03/25 08:59 Last Admin: 03/28/25 08:10 Dose: 5 ml Documented By: DIANE Fluticasone Furoate (Fluticasone Furoate 200mcg 14 Puffs/Inhaler) 1 puffs INH DAILY MARANDA Stop: 04/27/25 08:59 Last Admin: 03/28/25 08:11 Dose: 1 puffs Documented By: DIANE Folic Acid (Folic Acid 1 Mg Tab) 1 mg PO DAILY MARANDA Stop: 04/27/25 08:59 Last Admin: 03/28/25 08:12 Dose: 1 mg Documented By: DIANE Hydromorphone HCl (Hydromorphone Inj 0.5 Mg/0.5 Ml Syr) 0.5 mg IV Q3HWA PRN PRN Reason: Breakthrough Pain Stop: 04/10/25 17:19 Last Admin: 03/28/25 15:02 Dose: 0.5 mg Documented By: Admin: 03/28/25 10:47 Dose: 0.5 mg Documented By: DIANE Cefepime HCl (Maxipime 2000mg) 2,000 mg in 20 mls @ 5 mls/min IV Q8H MARANDA; Protocol Stop: 04/06/25 22:59 Last Admin: 03/28/25 14:44 Dose: 5 mls/min Documented By: Admin: 03/28/25 06:36 Dose: 5 mls/min Documented By: Admin: 03/27/25 22:18 Dose: 5 mls/min Documented By: ALESHA Daptomycin 850 mg/ Syringe 17 mls @ 8.5 mls/min IV Q24H MARANDA; Protocol Stop: 04/04/25 14:59 Last Admin: 03/28/25 14:41 Dose: 8.5 mls/min Documented By: DIANE Lactobacillus Acidophilus (Advanced Probiotic 625 Mg Capsule) 1,250 mg PO DAILY MARANDA Stop: 04/27/25 08:59 Last Admin: 03/28/25 08:12 Dose: 1,250 mg Documented By: DIANE Lidocaine (Lidocaine 5% 1 Patch) 1 patch TD QAM MARANDA Stop: 04/27/25 11:59 Last Admin: 03/28/25 13:12 Dose: 1 patch Documented By: DIANE Metoprolol Succinate (Metoprolol Succ 25mg Ext Rel Tab) 75 mg PO BID MARANDA Stop: 04/26/25 20:59 Last Admin: 03/28/25 08:02 Dose: Not Given Documented By: DIANE Ondansetron HCl (Ondansetron Inj 2 Mg/Ml 2 Ml Vial) 4 mg IV Q6H PRN PRN Reason: Nausea Stop: 04/26/25 16:18 Last Admin: 03/28/25 06:09 Dose: 4 mg Documented By: ALESHA Pantoprazole Sodium (Pantoprazole 40 Mg Tab) 40 mg PO DAILY MARANDA Stop: 04/27/25 08:59 Last Admin: 03/28/25 08:12 Dose: 40 mg Documented By: DIANE Pregabalin (Pregabalin 75 Mg Cap) 75 mg PO TID MARANDA Stop: 04/27/25 13:59 Last Admin: 03/28/25 13:12 Dose: 75 mg Documented By: DIANE Thiamine HCl (Thiamine Hcl 100 Mg Tab) 100 mg PO DAILY [facility] Stop: 04/27/25 08:59 Last Admin: 03/28/25 08:13 Dose: 100 mg Documented By: DIANE Umeclidinium/Vilanterol (Umeclidinium/Vilanterol 62.5/25mcg 7 Puffs/Inhaler) 1 puffs INH DAILY MARANDA Stop: 04/27/25 08:59 Last Admin: 03/28/25 08:11 Dose: 1 puffs Documented By: DIANE Vancomycin HCl (Vancomycin Hcl 250 Mg/5 Ml Soln) 250 mg PO DAILY [facility] Stop: 04/03/25 08:59 Last Admin: 03/28/25 08:16 Dose: 250 mg Documented By: DIANE Discontinued Medications Acetaminophen (Acetaminophen 325 Mg Tab) 650 mg PO Q4H PRN PRN Reason: Pain or Fever Stop: 04/26/25 16:18 Last Admin: 03/27/25 20:10 Dose: 650 mg Documented By: ALESHA Hydromorphone HCl (Hydromorphone Inj 0.5 Mg/0.5 Ml Syr) 0.25 mg IV Q6H PRN PRN Reason: Moderate Pain (Scale 4, 5, 6) Stop: 04/10/25 13:17 Last Admin: 03/28/25 03:59 Dose: 0.25 mg Documented By: Admin: 03/27/25 17:25 Dose: 0.25 mg Documented By: SABRINA Hydromorphone HCl (Hydromorphone Inj 0.5 Mg/0.5 Ml Syr) 0.5 mg IV Q6H PRN PRN Reason: Severe Pain (Scale 7, 8, 9,10) Stop: 04/10/25 13:17 Last Admin: 03/27/25 13:39 Dose: 0.5 mg Documented By: KAREN Magnesium Sulfate/Dextrose (Magnesium Sulfate / D5w) 1 gm in 100 mls @ 200 mls/hr IV Q30M MARANDA Stop: 03/27/25 14:23 Last Infusion: 03/27/25 15:09 Dose: Infused Documented By: Admin: 03/27/25 14:00 Dose: 200 mls/hr Documented By: Infusion: 03/27/25 14:00 Dose: Infused Documented By: Admin: 03/27/25 13:59 Dose: 200 mls/hr Documented By: TRU Daptomycin 925 mg/ Syringe 18.5 mls @ 9.25 mls/min IV NOW STA; Protocol Stop: 03/27/25 14:27 Last Admin: 03/27/25 15:09 Dose: 9.25 mls/min Documented By: SNEHAL Cefepime HCl (Maxipime 2000mg) 2,000 mg in 20 mls @ 5 mls/min IV NOW STA; Protocol Stop: 03/27/25 14:30 Last Admin: 03/27/25 14:38 Dose: 5 mls/min Documented By: TRU Ioversol (Optiray 320 100ml) 94 ml IV ONCE ONE Stop: 03/27/25 06:52 Last Admin: 03/27/25 06:51 Dose: 94 ml Documented By: FERCHO Metoprolol Succinate (Metoprolol Succ 25mg Ext Rel Tab) 37.5 mg PO NOW STA Stop: 03/27/25 20:16 Last Admin: 03/27/25 20:18 Dose: 37.5 mg Documented By: ALESHA Oxycodone HCl (Oxycodone Hcl Ir 5 Mg Tab (Immediate Release)) 5 mg PO Q3HWA PRN PRN Reason: Severe Pain (Scale 7, 8, 9,10) Stop: 04/11/25 07:34 Last Admin: 03/28/25 08:09 Dose: 5 mg Documented By: DIANE Pregabalin (Pregabalin 50 Mg Cap) 50 mg PO TID MARANDA Stop: 04/26/25 16:18 Last Admin: 03/28/25 08:09 Dose: 50 mg Documented By: Admin: 03/27/25 20:10 Dose: 50 mg Documented By: Admin: 03/27/25 17:30 Dose: 50 mg Documented By: AM Sertraline HCl (Sertraline Hcl 50 Mg Tablet) 50 mg PO DAILY [facility] Stop: 04/27/25 08:59 Last Admin: 03/28/25 08:13 Dose: 50 mg Documented By: DIANE Imaging Data Radiologist's Impression: Abdomen/Pelvis CT 03/27/25 05:30 EXAM: CT abd pelvis IV con only CLINICAL HISTORY: wound drainage s/p wound vac removal TECHNIQUE: Contrast-enhanced CT of the abdomen and pelvis was performed, with the following protocol: axial images and reconstructed coronal and sagittal images. Intravenous contrast was administered. One of the following dose reduction techniques was utilized for this exam: Automated exposure control, adjustment of the mA and/or kV according to patient size, and use of iterative reconstruction. COMPARISON: prior CT 02/23/2025. FINDINGS: OBX.5.1OBX.5.1.1Properly positioned interpedicular screws at L3, L4 /OBX.5.1.1OBX.5.1.2 L5 levels./OBX.5.1.2/OBX.5.1 A properly positioned infrarenal IVC filter A properly positioned left lumbar region drainage tube OBX.5.1OBX.5.1.1 Regression of size of encapsulated fluid collection in mid abdomen /OBX.5.1.1OBX.5.1.2 left lumbar region measuring about 79x42 mm with multiple air foci within./OBX.5.1.2/OBX.5.1 Unchanged multiple encapsulated fluid collections involving perisplenic, left paracolic spaces, and anterior to abdominal aorta. Interval resolution of collection in transverse mesocolon. Unchanged multiple enlarged surrounding lymph nodes, ranging in size from 5-15 mm Unchanged haziness of the surrounding fat planes. New finding of fat stranding with multiple air foci in the anterior abdominal wall in the umbilical region. Still seen normal remaining pancreatic tissue in the region of the head. No longer seen the previously described moderate pericardial effusion. Minimal bilateral pleural effusion. Abdomen: Liver: Normal in size, shape, and density. No focal lesions, cysts, or masses were identified. Hepatic vasculature and biliary ducts are unremarkable. Gallbladder and Biliary System: The gallbladder is normal in size and shape. No wall thickening, pericholecystic fluid, or gallstones were identified. The common bile duct is normal in caliber without dilation. Spleen: Normal in size, shape, and density. No splenic lesions or masses were identified. Appendix: Not visualized. Kidneys and Adrenal Glands: New finding of mild prominence of right pelvicalyceal system and ureter caused by inflammatory changes in retroperitoneum at L4-L5 level. Both kidneys are normal in size, shape, and position. Cortical thickness is within normal limits. No renal calculi. Adrenal glands are unremarkable with no evidence of masses or hyperplasia. Pelvis: Urinary Bladder: Normal in contour and wall thickness. No intraluminal lesions were identified. Prostate: Normal in size and contour. No focal lesions or masses were identified. Seminal Vesicles: Normal in size and appearance. No abnormalities were noted. Rectum and Sigmoid Colon: Normal wall thickness and no evidence of mass. Bowel: The visualized bowel loops are normal in caliber and appearance. No evidence of bowel obstruction or wall thickening. Bones and Soft Tissues: Diffuse osteopenia. Spondylotic changes in thoracolumbar spine. Mild anterior wedging in T12-L2 vertebral bodies, stable. Atherosclerotic changes in the abdominal aorta and its branches. Pelvic bones and soft tissues are unremarkable. No fractures or abnormal masses were identified. IMPRESSION: OBX.5.1OBX.5.1.11. Regression of size of encapsulated fluid collection in mid abdomen /OBX.5.1.1OBX.5.1.2 left lumbar region measuring about 79x42 mm with multiple air foci within./OBX.5.1.2/OBX.5.1 2. Unchanged multiple encapsulated fluid collections involving the perisplenic, left paracolic spaces, and anterior to the abdominal aorta. 3. Interval resolution of collection in transverse mesocolon. 4. Unchanged multiple enlarged surrounding lymph nodes, ranging in size from 5-15 mm 5. New finding of fat stranding with multiple air foci in the anterior abdominal wall in the umbilical region. 6. Interval resolution of moderate pericardial effusion. 7. Minimal bilateral pleural effusion (regression). 8. New finding of mild prominence of right pelvicalyceal system and ureter caused by inflammatory changes in retroperitoneum at L4-L5 level. 9. A properly positioned infrarenal IVC filter. 10. A properly positioned left lumbar region drainage tube. Electronically signed by Deo Brenner 03-27-2025 09:16 AM Discharge Plan Visit Data Chief Complaint: Infection, Wound Stated Complaint: WOUND INFECTION ED Provider: Lola Forde Discharge Problem: Wound of abdomen, Wound, open, abdominal wall, anterior with complication, Ambulatory dysfunction, Leukocytosis Patient Disposition: Admitted As Inpatient Condition: Fair Discharge Instructions Interventions: ED Discharge Assessment Last Done: 03/27/25 15:54
--- NOTE | 2025-03-27 09:16 | CT Scan Report ---
EXAM: CT abd pelvis IV con only CLINICAL HISTORY: wound drainage s/p wound vac removal TECHNIQUE: Contrast-enhanced CT of the abdomen and pelvis was performed, with the following protocol: axial images and reconstructed coronal and sagittal images. Intravenous contrast was administered. One of the following dose reduction techniques was utilized for this exam: Automated exposure control, adjustment of the mA and/or kV according to patient size, and use of iterative reconstruction. COMPARISON: prior CT 02/23/2025. FINDINGS: OBX.5.1OBX.5.1.1Properly positioned interpedicular screws at L3, L4 /OBX.5.1.1OBX.5.1.2 L5 levels./OBX.5.1.2/OBX.5.1 A properly positioned infrarenal IVC filter A properly positioned left lumbar region drainage tube OBX.5.1OBX.5.1.1 Regression of size of encapsulated fluid collection in mid abdomen /OBX.5.1.1OBX.5.1.2 left lumbar region measuring about 79x42 mm with multiple air foci within./OBX.5.1.2/OBX.5.1 Unchanged multiple encapsulated fluid collections involving perisplenic, left paracolic spaces, and anterior to abdominal aorta. Interval resolution of collection in transverse mesocolon. Unchanged multiple enlarged surrounding lymph nodes, ranging in size from 5-15 mm Unchanged haziness of the surrounding fat planes. New finding of fat stranding with multiple air foci in the anterior abdominal wall in the umbilical region. Still seen normal remaining pancreatic tissue in the region of the head. No longer seen the previously described moderate pericardial effusion. Minimal bilateral pleural effusion. Abdomen: Liver: Normal in size, shape, and density. No focal lesions, cysts, or masses were identified. Hepatic vasculature and biliary ducts are unremarkable. Gallbladder and Biliary System: The gallbladder is normal in size and shape. No wall thickening, pericholecystic fluid, or gallstones were identified. The common bile duct is normal in caliber without dilation. Spleen: Normal in size, shape, and density. No splenic lesions or masses were identified. Appendix: Not visualized. Kidneys and Adrenal Glands: New finding of mild prominence of right pelvicalyceal system and ureter caused by inflammatory changes in retroperitoneum at L4-L5 level. Both kidneys are normal in size, shape, and position. Cortical thickness is within normal limits. No renal calculi. Adrenal glands are unremarkable with no evidence of masses or hyperplasia. Pelvis: Urinary Bladder: Normal in contour and wall thickness. No intraluminal lesions were identified. Prostate: Normal in size and contour. No focal lesions or masses were identified. Seminal Vesicles: Normal in size and appearance. No abnormalities were noted. Rectum and Sigmoid Colon: Normal wall thickness and no evidence of mass. Bowel: The visualized bowel loops are normal in caliber and appearance. No evidence of bowel obstruction or wall thickening. Bones and Soft Tissues: Diffuse osteopenia. Spondylotic changes in thoracolumbar spine. Mild anterior wedging in T12-L2 vertebral bodies, stable. Atherosclerotic changes in the abdominal aorta and its branches. Pelvic bones and soft tissues are unremarkable. No fractures or abnormal masses were identified. IMPRESSION: OBX.5.1OBX.5.1.11. Regression of size of encapsulated fluid collection in mid abdomen /OBX.5.1.1OBX.5.1.2 left lumbar region measuring about 79x42 mm with multiple air foci within./OBX.5.1.2/OBX.5.1 2. Unchanged multiple encapsulated fluid collections involving the perisplenic, left paracolic spaces, and anterior to the abdominal aorta. 3. Interval resolution of collection in transverse mesocolon. 4. Unchanged multiple enlarged surrounding lymph nodes, ranging in size from 5-15 mm 5. New finding of fat stranding with multiple air foci in the anterior abdominal wall in the umbilical region. 6. Interval resolution of moderate pericardial effusion. 7. Minimal bilateral pleural effusion (regression). 8. New finding of mild prominence of right pelvicalyceal system and ureter caused by inflammatory changes in retroperitoneum at L4-L5 level. 9. A properly positioned infrarenal IVC filter. 10. A properly positioned left lumbar region drainage tube. Electronically signed by Deo Brenner 03-27-2025 09:16 AM
[2025-03-27 10:02] LABS: Appearance Urine Clear (Clear); Bacteria Urine Automated None Seen (None Seen); Epithelial Cell Urine Auto 0-2 /hpf (0-2); Glucose Urine UA Negative (Negative); WBC Urine Automated 0-5 /hpf (0-5)
--- NOTE | 2025-03-27 10:47 | History & Physical Report ---
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 Recent hospitalization synopsis: -Hospitalized at [facility] from 11/18-12/04/2024 for acute on chronic hypoxic/hypercarbic respiratory failure secondary to a COPD exacerbation complicated by acute metabolic encephalopathy, alcohol withdrawal transiently requiring mechanical ventilation, aspiration pneumonia, urinary retention, and acute renal failure requiring HD -[place] [facility] [place] due to acute alcoholic hemorrhagic pancreatitis which required IR embolization -Hospitalized at [facility] [place] 12/04-01/31/2025 with prolonged ICU admission, OR exploration on 12/13, abdominal closure on 12/19 with mesh and drain placement, IR drain into pseudocyst and upsized on 01/20 -Discharged to [facility] on 01/31/2025 -Transferred to [facility] ED on 02/02/2025 for hypotension and worsening hypoxic respiratory failure -Hospitalized at [facility] from 02/02-02/23/2025 for severe sepsis secondary to pneumonia vs necrotizing pancreatitis with fluid overload and C diff infection -Transferred [place] [facility] [place] 02/23/2025 due to increasing leukocytosis without clear source and need for higher level of care -Hospitalized at [facility] [place] 02/23-03/06/2025 and found to have splenic infarct and retroperitoneal fluid collection with placement of peripancreatic drain and aspiration of splenic abscess on 02/27, persistent pancreatic colon fistula noted, IR drain noted to have hole and kinked requiring drain exchange by IR on 03/06 -Discharged to [facility] on 03/06/2025 -Discharged to home on 03/26/2025 Sepsis Likely secondary to ongoing intraabdominal infection as described above Leukocytosis, tachycardia, tachypnea present on admission Lactate and UA WNL Blood cultures pending Wound culture pending CT abdomen with regression of size of encapsulated fluid collection in mid abdomen; uncharged multiple encapsulated fluid collections; new finding of fat stranding with multiple air foci in anterior abdominal wall in umbilical region; interval resolution of moderate pericardial effusion; regression of bilateral pleural effusion; new finding of mild prominence of right pelvicalyceal system and ureter caused by inflammatory changes in retroperitoneum at L4-L5 level Recent abx at [facility] [place] [facility]: cefepime 2g q8hr through 03/26, dapto 900mg daily through 03/26, PO vanc 125mg QID through 03/06 followed by daily through 04/02 Plan: Follow blood and wound cultures Restart IV cefepime and daptomycin; add probiotic Hold statin while on daptomycin CK level pending Wound consult for abdomen wound Pain control with PRN tylenol and dilaudid Surgery consult: appreciate recs ID consult: appreciate recs Low threshold for transfer to [facility] if acutely worsens or requires surgical/IR intervention Ambulatory dysfunction Patient with profound weakness in setting of hospitalizations and illness PT/OT consults Consider assistant terminal manager placement needs CM consult C diff colitis Originally dx on 02/20 Completed PO vancomycin QID dosing on 03/06/2025 Continue PO vancomycin daily until 04/02/2025 Pericardial effusion Originally dx on 02/[address] abdomen with interval resolution of moderate pericardial effusion Echo 02/23/2025 with mild concentric LVH, LVEF 60-65%, no regional wall motion abnormality, small to moderate pericardial effusion without tamponade Patient asymptomatic Admit to PCU for tele monitoring History of PE Originally dx on 01/03 and additional PE identified on 01/23 Continue Eliquis History of SVT During 02/23-03/06 admission [place] [facility] [place] had two episodes of SVT requiring adenosine Evaluated by EP and Cardiology who increased metoprolol dose and recommended close outpt follow up Continue metoprolol Admit to PCU for tele monitoring Chronic anemia Thrombocytosis Hgb near baseline Platelets 737 - decreased from previous admissions Previous evaluation by hematology on 02/14 and thought to be reactive in setting of sepsis Hypomagnesemia Mag 1.5 on admission Repleted in ED Monitor and replete as necessary Stage 1 sacral pressure ulcer WOCN consult Turn and reposition q2hr Chronic diastolic CHF Chronic, stable per patient Demonstrates LE edema but denies acute SOB Mild hyponatremia at 134 Monitor I&Os, daily weights COPD Chronic, stable per patient Continue Trelegy inhaler History of GI bleed Continue pantoprazole History of alcohol abuse Continue folic acid and thiamine DVT Prophylaxis: on Eliquis Code Status: FULL CODE - As per discussion at bedside with the patient. PCP: Omer Wayne Disposition: admit to PCU Patient seen in collaboration with Dr Cervantes. Please see addendum. I spent a total of 75 minutes coordinating, documenting and providing care for this patient excluding time spent in the performance of separately billed services or time spent by another provider/QHP. 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 Patient reports that he noticed increased drainage from his abdominal wound starting on Thursday while at [facility]. He reports that it was able to be managed with daily dressing changes. He was discharged from [facility] to home and was told he would be getting set up with home health but never did. Then this morning around 0430 he reports significant drainage that saturated his dressing and clothing. The drainage is purulent and malodorous but patient notes that is how it has been. He reports 5/10 discomfort at the wound for which he was taking oxycodone with little improvement. He also reports intermittent jolting pain at his left flank near his drain that started a few days ago. He notes that the jolts occur when he is at rest and with any movement. He denies any pulling on the drain that he is aware of. He also reports soreness on his sacrum from laying in bed. He denies fevers, chills, chest pain, palpitations, SOB outside of his baseline with COPD, dysuria, diarrhea. He still notes significant weakness where he is able to ambulate with a walker but needs one assist following close behind. He has not had any falls but notes he is worried about falling at home because he doesn't have proper support. He lives with his mother, who is unable to provide care, and his sister and brother in law who both work during the day. Recent hospitalization synopsis: -Hospitalized at [facility] from 11/18-12/04/2024 for acute on chronic hypoxic/hypercarbic respiratory failure secondary to a COPD exacerbation complicated by acute metabolic encephalopathy, alcohol withdrawal transiently requiring mechanical ventilation, aspiration pneumonia, urinary retention, and acute renal failure requiring HD -Transfer[place] [facility] [place] due to acute alcoholic hemorrhagic pancreatitis which required IR embolization -Hospitalized at [facility] [place] 12/04-01/31/2025 with prolonged ICU admission, OR exploration on 12/13, abdominal closure on 12/19 with mesh and drain placement, IR drain into pseudocyst and upsized on 01/20 -Discharged to [facility] on 01/31/2025 -Transferred to [facility] ED on 02/02/2025 for hypotension and worsening hypoxic respiratory failure -Hospitalized at [facility] from 02/02-02/23/2025 for severe sepsis secondary to pneumonia vs necrotizing pancreatitis with fluid overload and C diff infection -Transferred to [facility] [place] 02/23/2025 due to increasing leukocytosis without clear source and need for higher level of care -Hospitalized at [facility] [place] 02/23-03/06/2025 and found to have splenic infarct and retroperitoneal fluid collection with placement of peripancreatic drain and aspiration of splenic abscess on 02/27, persistent pancreatic colon fistula noted, IR drain noted to have hole and kinked requiring drain exchange by IR on 03/06 -Discharged to [facility] on 03/06/2025 -Discharged to home on 03/26/2025 Allergies Allergy/AdvReac Type Severity Reaction Status Date / Time TONIA Inhibitors AdvReac Severe ALESSANDRO Verified 03/14/25 08:19 ARB-Angiotensin Receptor AdvReac Severe ALESSANDRO Verified 03/14/25 08:19 Antagonist prednisone AdvReac Mild "jitterines Verified 03/14/25 08:19 s" Home Medications Medication Instructions Recorded Confirmed Type apixaban 5 mg tablet (Eliquis) 5 mg PO BID 02/02/25 03/27/25 History fluticasone fur. 200 mcg-umeclid 1 inh inhalation DAILY 02/02/25 03/27/25 History 62.5 mcg-vilant 25 mcg inhalat.powder (Trelegy Ellipta) albuterol sulfate 90 mcg/actuation 2 puff inhalation Q4 PRN sob or 03/27/25 03/27/25 History aerosol inhaler wheezing atorvastatin 80 mg tablet 80 mg PO DAILY 03/27/25 03/27/25 History folic acid 1 mg tablet 1 mg PO DAILY 03/27/25 03/27/25 History metoprolol succinate 25 mg 75 mg PO BID 03/27/25 03/27/25 History tablet,extended release 24 hr oxycodone 10 mg tablet 10 mg PO TID PRN Pain 03/27/25 03/27/25 History pantoprazole 40 mg tablet,delayed 40 mg PO DAILY 03/27/25 03/27/25 History release pregabalin 50 mg capsule 50 mg PO TID 03/27/25 03/27/25 History sertraline 50 mg tablet 50 mg PO DAILY 03/27/25 03/27/25 History simethicone 80 mg chewable tablet 80 mg PO BID PRN Constipation 03/27/25 03/27/25 History thiamine HCl (vitamin B1) 100 mg 100 mg PO DAILY 03/27/25 03/27/25 History tablet vancomycin 250 mg capsule 250 mg PO DAILY 03/27/25 03/27/25 History Past Med/Surg History Problem List (Updated 03/27/25 @ 14:41 by DRAGAN Brush) Pressure injury of sacral region, stage 1 Ambulatory dysfunction Thrombocythemia Pericardial effusion Sepsis Hypomagnesemia (Acute) Leukocytosis (Acute) CHF (congestive heart failure) (Acute) Chronic obstructive pulmonary disease (Chronic) hospitalized at [facility] November 2023 for this, still having some shortness of breath with activity, at rest is okay Medical History (Updated 03/27/25 @ 14:41 by DRAGAN Brush) Splenic abscess SVT (supraventricular tachycardia) C. difficile colitis Hypertension controlled, stable per pt Tobacco use disorder Anemia Obesity (BMI 30.0-34.9) Alcohol use disorder Encounter for pre-operative examination Lab test negative for COVID-19 virus RSV (respiratory syncytial virus infection) Sleep disorder breathing Neurogenic claudication due to lumbar spinal stenosis Anemia Near syncope Hypotension Acute on chronic anemia Shortness of breath Pneumonia Transaminitis Respiratory failure requiring intubation Acute kidney failure Renal failure Atrial flutter with rapid ventricular response Nonobstructive atherosclerosis of coronary artery Volume overload Diastolic dysfunction Hypertensive heart disease Acute kidney injury (nontraumatic) Acute necrotizing pancreatitis Hemorrhagic shock Acute encephalopathy Pleural effusion due to pancreatitis Acute on chronic diastolic CHF (congestive heart failure) Sepsis due to pneumonia Hypoxia Hypoxia Anemia Pulmonary emboli Pedal edema Hemoptysis Left-sided epistaxis Right hip pain Osteonecrosis of both hips Necrotizing pancreatitis Heme positive stool On home oxygen therapy 2 LPM at HS Hepatic steatosis CAD (coronary artery disease) GERD (gastroesophageal reflux disease) controlled, stable per pt Kidney disease following with [facility] Nephrology. Plaque psoriasis Hx of seasonal allergies Spinal stenosis History of shingles 05/2022, PRN gabapentin for chronic right eye irritation/pain from shingles Surgical History (Updated 03/27/25 @ 14:43 by DRAGAN Brush) History of exploratory laparotomy History of cardiac catheterization 02/2023 [facility]. no stents. History of back surgery lumbar > "bone spur shaving" Hx of arthroscopic knee surgery Left Hx of foot surgery Left Hx of inguinal hernia repair History of esophagogastroduodenoscopy (EGD) Family History Father Diabetes Social History (Updated 03/27/25 @ 14:44 by DRAGAN Brush) Smoking Status: Former smoker Tobacco Type: Cigarettes Cigarettes Per Day: .5 pack a day; Second Hand Exposure: No; Do You Dip or Chew Tobacco: No; Hx Alcohol Use: No Hx Substance Use: No Preferred Language: Urdu Communication Ability: Effective Management Professionals Required: No Beliefs That Will Affect Care: None Current Living Situation: Family Current Living Situation Comment: Living with sister and brotherhood s/p discharge from [facility] 03/26/2025 Other Information That Helps Us Care for You: No Feels Safe at Home: Yes Safety Concerns: Feels Safe At This Time Assistive Devices: Walker and Wheelchair Review of Systems Review of Systems: All systems reviewed & are unremarkable except as noted in HPI & below Physical Exam Physical Exam: General/Psych: WD/WN, laying in bed, appears uncomfortable, conversing easily Head: normocephalic, atraumatic Eyes: normal inspection, PERRL, conjunctivae pink, anicteric sclerae ENT: external ear and nose normal, oropharynx normal Neck: normal visual inspection, trachea midline Respiratory: normal respiratory effort, lungs clear to auscultation, no wheeze/rales/rhonchi, no accessory muscle use Cardiovascular: regular rate and rhythm, no murmur/rub/gallop Extremities: no cyanosis or clubbing, normal peripheral pulses, 1+ right LE edema, 2+ left LE edema Abdomen/GI: normal bowel sounds, distended, tenderness around abdominal wound at mid abdomen Neurologic/MSK: A+Ox3, motor strength 4/5, moves all extremities Skin: no rashes, normal color, warm and dry, sacral blanchable erythema without open wound, peritoneal drain sutured in left flank with surrounding gauze c/d/i, mid abdomen wound with purulent odorous drainage and moist pink base of wound and small amount of drainage on dressing Results & Data Results & Data Vital Signs (Past 12 Hours) Vital Signs Temp Pulse Resp BP Pulse Ox O2 Del Method 03/27/25 10:30 137/83 03/27/25 10:27 101 H 21 03/27/25 10:21 97 H 15 03/27/25 10:12 89 14 03/27/25 10:09 92 H 50 H 03/27/25 10:00 130/77 03/27/25 09:57 96 H 20 03/27/25 09:39 97 H 15 03/27/25 09:35 89 03/27/25 09:21 90 14 03/27/25 09:00 91 H 13 03/27/25 09:00 118/74 03/27/25 08:57 90 12 03/27/25 08:42 92 H 14 03/27/25 08:33 113 H 39 H 03/27/25 08:30 126/76 03/27/25 08:09 93 H 14 92 03/27/25 07:51 96 H 12 94 03/27/25 07:45 90 12 93 03/27/25 07:36 93 H 11 L 93 03/27/25 07:30 130/77 03/27/25 07:27 89 16 95 03/27/25 07:24 91 H 10 L 92 03/27/25 07:00 101 H 16 03/27/25 07:00 133/83 03/27/25 06:30 113/75 03/27/25 06:30 113/75 03/27/25 06:27 92 H 13 93 03/27/25 06:12 99 H 20 95 03/27/25 06:00 102 H 18 95 03/27/25 06:00 125/74 03/27/25 05:54 100 H 13 93 03/27/25 05:46 105/70 03/27/25 05:43 110/69 03/27/25 05:35 109 H 03/27/25 05:22 36.7 C 108 H 16 114/74 93 Room Air Laboratory Results Short CBC 03/27/25 Range/Units 05:38 WBC 15.79 H (4.8-10.8) K/ul Hgb 8.3 L (14.0-18.0) g/dl Hct 26.6 L (42.0-52.0) % Plt Count 737 H (130-400) K/uL BMP 03/27/25 05:38 Sodium 134 L Potassium 4.1 Chloride 101 Carbon Dioxide 23 BUN 25 H Creatinine 0.88 Glucose 92 Calcium 9.7 Cardiac Enzymes 03/27/25 Range/Units 05:38 Total Creatine Kinase 216 (30-223) U/L Liver Function 03/27/25 Range/Units 05:38 Total Bilirubin 0.4 (0.2-1.0) mg/dl AST 45 H (13-39) U/L ALT 45 (7-52) U/L Alkaline Phosphatase 347 H (34-104) U/L Albumin 3.0 L (3.4-5.0) gm/dl Urine 03/27/25 Range/Units 08:35 Urine Color Yellow Urine Appearance Clear (Clear) Urine pH 5.5 (4.5-7.5) Ur Specific [place] 1.026 (1.000-1.030) Urine Protein 2+ H (Negative) Urine Glucose (UA) Negative (Negative) I have independently reviewed and interpreted patient's admitting labs including CBC, CMP, mag, UA. Diagnostic Findings Abdomen/Pelvis CT 03/27/25 05:30 EXAM: CT abd pelvis IV con only CLINICAL HISTORY: wound drainage s/p wound vac removal TECHNIQUE: Contrast-enhanced CT of the abdomen and pelvis was performed, with the following protocol: axial images and reconstructed coronal and sagittal images. Intravenous contrast was administered. One of the following dose reduction techniques was utilized for this exam: Automated exposure control, adjustment of the mA and/or kV according to patient size, and use of iterative reconstruction. COMPARISON: prior CT 02/23/2025. FINDINGS: [id number].[id number] positioned interpedicular screws at L3, L4 /OBX.5.1.1OBX.5.1.2 L5 levels./OBX.5.1.2/OBX.5.1 A properly positioned infrarenal IVC filter A properly positioned left lumbar region drainage tube [id number].[id number].5.1.1 Regression of size of encapsulated fluid collection in mid abdomen /OBX.5.1.1OBX.5.1.2 left lumbar region measuring about 79x42 mm with multiple air foci within./OBX.5.1.2/OBX.5.1 Unchanged multiple encapsulated fluid collections involving perisplenic, left paracolic spaces, and anterior to abdominal aorta. Interval resolution of collection in transverse mesocolon. Unchanged multiple enlarged surrounding lymph nodes, ranging in size from 5-15 mm Unchanged haziness of the surrounding fat planes. New finding of fat stranding with multiple air foci in the anterior abdominal wall in the umbilical region. Still seen normal remaining pancreatic tissue in the region of the head. No longer seen the previously described moderate pericardial effusion. Minimal bilateral pleural effusion. Abdomen: Liver: Normal in size, shape, and density. No focal lesions, cysts, or masses were identified. Hepatic vasculature and biliary ducts are unremarkable. Gallbladder and Biliary System: The gallbladder is normal in size and shape. No wall thickening, pericholecystic fluid, or gallstones were identified. The common bile duct is normal in caliber without dilation. Spleen: Normal in size, shape, and density. No splenic lesions or masses were identified. Appendix: Not visualized. Kidneys and Adrenal Glands: New finding of mild prominence of right pelvicalyceal system and ureter caused by inflammatory changes in retroperitoneum at L4-L5 level. Both kidneys are normal in size, shape, and position. Cortical thickness is within normal limits. No renal calculi. Adrenal glands are unremarkable with no evidence of masses or hyperplasia. Pelvis: Urinary Bladder: Normal in contour and wall thickness. No intraluminal lesions were identified. Prostate: Normal in size and contour. No focal lesions or masses were identified. Seminal Vesicles: Normal in size and appearance. No abnormalities were noted. Rectum and Sigmoid Colon: Normal wall thickness and no evidence of mass. Bowel: The visualized bowel loops are normal in caliber and appearance. No evidence of bowel obstruction or wall thickening. Bones and Soft Tissues: Diffuse osteopenia. Spondylotic changes in thoracolumbar spine. Mild anterior wedging in T12-L2 vertebral bodies, stable. Atherosclerotic changes in the abdominal aorta and its branches. Pelvic bones and soft tissues are unremarkable. No fractures or abnormal masses were identified. IMPRESSION: OBX.5.1OBX.5.1.11. Regression of size of encapsulated fluid collection in mid abdomen /OBX.5.1.1OBX.5.1.2 left lumbar region measuring about 79x42 mm with multiple air foci within./OBX.5.1.2/OBX.5.1 2. Unchanged multiple encapsulated fluid collections involving the perisplenic, left paracolic spaces, and anterior to the abdominal aorta. 3. Interval resolution of collection in transverse mesocolon. 4. Unchanged multiple enlarged surrounding lymph nodes, ranging in size from 5-15 mm 5. New finding of fat stranding with multiple air foci in the anterior abdominal wall in the umbilical region. 6. Interval resolution of moderate pericardial effusion. 7. Minimal bilateral pleural effusion (regression). 8. New finding of mild prominence of right pelvicalyceal system and ureter caused by inflammatory changes in retroperitoneum at L4-L5 level. 9. A properly positioned infrarenal IVC filter. 10. A properly positioned left lumbar region drainage tube. Electronically signed by Deo Brenner 03-27-2025 09:16 AM Code Status & VTE Plan Code Status Full Code Supervising Physician Co-Signing Physician Notes Attending addendum: The patient was seen and examined in emergency room in presence of the family members Is a 59-year-old male significant past medical history very significant for acute alcoholic hemorrhagic pancreatitis which required exploratory laparotomy and subsequently IR drain placement to evacuate peripancreatic fluid collection and splenic hemorrhage collection, nonocclusive CAD, COPD, SAROJ on CPAP and other medical conditions as mentioned in H&P was brought to ER from home with increasing pain in the left side of the abdomen and also increasing drainage from the abdominal wound. Denies any fever and/or chills denies any significant issues with bladder and/or bowel problem Denies any chest pain or palpitation and no increasing shortness of breath On examination Lying in bed and looks very ill and anxious Hemodynamically stable, afebrile Chestdecreased breath sound bilaterally no wheezing and no crackles HeartS1, S2 regular Abdomendistended, drainage from the ventral abdominal wound of serosanguineous fluid, mildly tender on palpation and most tenderness noted over the lower lateral abdominal wall, IR drain disease draining serous fluid, bowel sounds present Extremitiesbilateral 1+ edema CNSalert, awake and oriented x 3. No focal neurodeficit but remains generally weak Of his admission labs and imaging studies reviewed CT of the abdomen pelvis showed OBX.5.1OBX.5.1.11. Regression of size of encapsulated fluid collection in mid abdomen /OBX.5.1.1OBX.5.1.2 left lumbar region measuring about 79x42 mm with multiple air foci within./OBX.5.1.2/OBX.5.1 2. Unchanged multiple encapsulated fluid collections involving the perisplenic, left paracolic spaces, and anterior to the abdominal aorta. 3. Interval resolution of collection in transverse mesocolon. 4. Unchanged multiple enlarged surrounding lymph nodes, ranging in size from 5-15 mm 5. New finding of fat stranding with multiple air foci in the anterior abdominal wall in the umbilical region. 6. Interval resolution of moderate pericardial effusion. 7. Minimal bilateral pleural effusion (regression). 8. New finding of mild prominence of right pelvicalyceal system and ureter caused by inflammatory changes in retroperitoneum at L4-L5 level. 9. A properly positioned infrarenal IVC filter. 10. A properly positioned left lumbar region drainage tube. Assessment and plan Sepsis secondary to intra-abdominal fluid collection/abscess with IR drain is placed History of severe hemorrhagic pancreatitis status post exploration and also a splenic infarction and peripancreatic fluid collection status post IR drain was placed -His prior antibiotics will be restarted and will get surgery and ID evaluation while in the hospital - He may need further surgical and/or IR intervention to improve his current medical condition He [facility] drainage from the abdominal wound and feeling pain in the left flank area He also complains to a profoundly weak that he has not been able to get out of bed and go to the bathroom His other significant medical conditions as mentioned in H&P remain stable His case was discussed in detail with the family members and the patientmention about complication of hemorrhagic pancreatitis and subsequent intervention as required by surgery and IR. And also he may need to be transferred to [place] if the condition does not get any better even though there is decrease in col lection as mentioned in x-ray/CAT scan Agree with assessment and plan as outlined above by Brianna ARCHIBALD and take the full responsibility of care in the hospital DR Roxy Cervantes (2) Leukocytosis Leukocytosis type: unspecified Qualified Code(s): D72.829 - Elevated white blood cell count, unspecified (8) CHF (congestive heart failure) Heart failure chronicity: acute Heart failure type: unspecified Qualified Code(s): I50.9 - Heart failure, unspecified (9) Chronic obstructive pulmonary disease COPD type: COPD with acute exacerbation Qualified Code(s): J44.1 - Chronic obstructive pulmonary disease with (acute) exacerbation
[2025-03-27] MEDS: HYDROmorphone INJ 0.5 MG/0.5 ML SYR IV PRN ×2 (13:39→17:25)
[2025-03-27] MEDS: MAGNESIUM SULFATE / D5W 1 GM/100 ML BAG IV SCH (13:59)
[2025-03-27 14:26] LABS: Creatine Kinase 216.0 U/L (30-223)
[2025-03-27] MEDS: CEFEPIME 2000MG 2,000 MG/20 ML SYR IV STA (14:38)
[2025-03-27] MEDS: DAPTOmycin 925 MG in SYRINGE 0 ML IV STA (15:09)
[2025-03-27] MEDS ORDERED: ALBUTEROL HFA 8 GM INHALER INH PRN (16:19)
[2025-03-27] MEDS ORDERED: POLYETHYLENE (MIRALAX) 17 GM PACK PO PRN (16:19)
[2025-03-27] MEDS ORDERED: HYDROmorphone INJ 0.5 MG/0.5 ML SYR IV PRN (17:20)
[2025-03-27] MEDS: APIXABAN 5 MG TABLET PO SCH (17:27)
[2025-03-27] MEDS: PREGABALIN 50 MG CAP PO SCH (17:30)
[2025-03-27] MEDS: ACETAMINOPHEN 325 MG TAB PO PRN (20:10)
[2025-03-27] MEDS: METOPROLOL SUCC 25MG EXT REL TAB PO STA (20:18)
[2025-03-27] MEDS ORDERED: Nursing to Pharmacy Communication SCH (22:00)
[2025-03-27] MEDS: CEFEPIME 2000MG 2,000 MG/20 ML SYR IV SCH (22:18)
[2025-03-28] MEDS: ONDANSETRON INJ 2 MG/ML 2 ML VIAL IV PRN (06:09)
[2025-03-28 06:23] LABS: Hematocrit (blood only) 24.8 % (42.0-52.0); Hemoglobin 7.7 g/dl (14.0-18.0); Immature Granulocytes # (auto) 0.14 K/uL (0.01-0.20); Immature Granulocytes % (auto) 1.2 %; Mean Corpuscular Hemoglobin 30.3 pg (25.0-34.0); Mean Corpuscular Volume 97.6 fL (80.0-100.0); Platelet Count 677 K/uL (130-400); RDW Standard Deviation 59.2 fL (36.4-46.3); Red Blood Count 2.54 M/uL (4.70-6.10); White Blood Count 11.67 K/ul (4.8-10.8)
[2025-03-28 06:43] LABS: Polychromasia 1+
[2025-03-28 06:45] LABS: Alanine Aminotransferase 30.0 U/L (7-52); Albumin Globulin Ratio 0.6 (0.9-2); Alkaline Phosphatase 309.0 U/L (34-104); Anion Gap 7.0 (3-11); Bilirubin,Total 0.4 mg/dl (0.2-1.0); Blood Urea Nitrogen 18.0 mg/dl (6-23); Calcium 9.5 mg/dl (8.6-10.3); Carbon Dioxide 23.0 mmol/L (21-32); Chloride 105.0 mmol/L (98-107); Creatinine Clr Calc Pharmacy 128.9 ml/min; Globulin 4.3 gm/dl (2.5-4.0); Glucose 95.0 mg/dl (70-99(Fasting)); Magnesium 1.7 mg/dl (1.7-2.4); Potassium 4.1 mmol/L (3.5-5.1); Sodium 135.0 mmol/L (136-145); Total Protein 6.9 gm/dl (6.0-8.3)
[2025-03-28] MEDS: METOPROLOL SUCC 25MG EXT REL TAB PO SCH (08:02)
[2025-03-28] MEDS: ACETAMINOPHEN 500 MG TAB PO PRN (08:10)
[2025-03-28] MEDS: CHERRY SYRUP 5 ML UDP PO SCH (08:10)
[2025-03-28] MEDS: FLUTICASONE FUROATE 200MCG 14 PUFFS/INHALER INH SCH (08:11)
[2025-03-28] MEDS: UMECLIDINIUM/VILANTEROL 62.5/25MCG 7 PUFFS/INHALER INH SCH (08:11)
[2025-03-28] MEDS: ADVANCED PROBIOTIC 625 MG CAPSULE PO SCH (08:12)
[2025-03-28] MEDS: FOLIC ACID 1 MG TAB PO SCH (08:12)
[2025-03-28] MEDS: THIAMINE HCL 100 MG TAB PO SCH (08:13)
[2025-03-28] MEDS: SERTRALINE HCL 50 MG TABLET PO SCH (08:13)
[2025-03-28] MEDS: VANCOMYCIN HCL 250 MG/5 ML SOLN PO SCH (08:16)
[2025-03-28] MEDS ORDERED: NON-FORMULARY MEDICATION (Fluticasone-Umeclidin-Vilanter [Trelegy Ellipta] 200-62.5-25 mcg INH SCH (09:00)
[2025-03-28] MEDS ORDERED: VANCOMYCIN 250 MG PO SCH (09:00)
--- NOTE | 2025-03-28 09:31 | Surgery Consultation ---
Date of Consultation March 28, 2025 Assessment & Plan (1) Wound infection after surgery: Recommend -IV abx -packing of open wound -maintain drain -if doesn't respond to local care then requires transfer back to [place] History of Present Illness Attending Physician: Jeremías Tomlin MD History of Present Illness This is a 59YO male admitted with abdominal wall pain and purulent drainage. He was admitted from [facility] after a prolonged stay at [facility] after an exploration for necrotic pancreatitis with drainage and an open wound after surgery. He had a wound VAC placed that was recently removed. He has developed purulent drainage from open portion of midline wound. He notes increasing yellow drainage from drain also. He reports no fevers or chills. Allergies Allergy/AdvReac Type Severity Reaction Status Date / Time TONIA Inhibitors AdvReac Severe ALESSANDRO Verified 03/14/25 08:19 ARB-Angiotensin Receptor AdvReac Severe ALESSANDRO Verified 03/14/25 08:19 Antagonist prednisone AdvReac Mild "jitterines Verified 03/14/25 08:19 s" Home Medications Medication Instructions Recorded Confirmed Type apixaban 5 mg tablet (Eliquis) 5 mg PO BID 02/02/25 03/27/25 History fluticasone fur. 200 mcg-umeclid 1 inh inhalation DAILY 02/02/25 03/27/25 History 62.5 mcg-vilant 25 mcg inhalat.powder (Trelegy Ellipta) albuterol sulfate 90 mcg/actuation 2 puff inhalation Q4 PRN sob or 03/27/25 03/27/25 History aerosol inhaler wheezing atorvastatin 80 mg tablet 80 mg PO DAILY 03/27/25 03/27/25 History folic acid 1 mg tablet 1 mg PO DAILY 03/27/25 03/27/25 History metoprolol succinate 25 mg 75 mg PO BID 03/27/25 03/27/25 History tablet,extended release 24 hr oxycodone 10 mg tablet 10 mg PO TID PRN Pain 03/27/25 03/27/25 History pantoprazole 40 mg tablet,delayed 40 mg PO DAILY 03/27/25 03/27/25 History release pregabalin 50 mg capsule 50 mg PO TID 03/27/25 03/27/25 History sertraline 50 mg tablet 50 mg PO DAILY 03/27/25 03/27/25 History simethicone 80 mg chewable tablet 80 mg PO BID PRN Constipation 03/27/25 03/27/25 History thiamine HCl (vitamin B1) 100 mg 100 mg PO DAILY 03/27/25 03/27/25 History tablet vancomycin 250 mg capsule 250 mg PO DAILY 03/27/25 03/27/25 History Patient History Medical History (Updated 03/28/25 @ 09:31 by Edgar Michel MD) Splenic abscess SVT (supraventricular tachycardia) C. difficile colitis Hypertension controlled, stable per pt Tobacco use disorder Anemia Obesity (BMI 30.0-34.9) Alcohol use disorder Encounter for pre-operative examination Lab test negative for COVID-19 virus RSV (respiratory syncytial virus infection) Sleep disorder breathing Neurogenic claudication due to lumbar spinal stenosis Anemia Near syncope Hypotension Acute on chronic anemia Shortness of breath Pneumonia Transaminitis Respiratory failure requiring intubation Acute kidney failure Renal failure Atrial flutter with rapid ventricular response Nonobstructive atherosclerosis of coronary artery Volume overload Diastolic dysfunction Hypertensive heart disease Acute kidney injury (nontraumatic) Acute necrotizing pancreatitis Hemorrhagic shock Acute encephalopathy Pleural effusion due to pancreatitis Acute on chronic diastolic CHF (congestive heart failure) Sepsis due to pneumonia Hypoxia Hypoxia Anemia Pulmonary emboli Pedal edema Hemoptysis Left-sided epistaxis Right hip pain Osteonecrosis of both hips Necrotizing pancreatitis Heme positive stool On home oxygen therapy 2 LPM at HS Hepatic steatosis CAD (coronary artery disease) GERD (gastroesophageal reflux disease) controlled, stable per pt Kidney disease following with [facility] Nephrology. Plaque psoriasis Hx of seasonal allergies Spinal stenosis History of shingles 05/2022, PRN gabapentin for chronic right eye irritation/pain from shingles Surgical History (Updated 03/27/25 @ 14:43 by DRAGAN Brush) History of exploratory laparotomy History of cardiac catheterization 02/2023 [facility]. no stents. History of back surgery lumbar > "bone spur shaving" Hx of arthroscopic knee surgery Left Hx of foot surgery Left Hx of inguinal hernia repair History of esophagogastroduodenoscopy (EGD) Family History Father Diabetes Social History (Updated 03/27/25 @ 14:44 by DRAGAN Brush) Smoking Status: Former smoker Tobacco Type: Cigarettes Cigarettes Per Day: .5 pack a day; Second Hand Exposure: No; Do You Dip or Chew Tobacco: No; Hx Alcohol Use: No Hx Substance Use: No Preferred Language: Citizen Of [place] Communication Ability: Effective Milieu Manager Required: No Beliefs That Will Affect Care: None Current Living Situation: Family Current Living Situation Comment: Living with sister and brotherhood s/p discharge from [facility] 03/26/2025 Other Information That Helps Us Care for You: No Feels Safe at Home: Yes Safety Concerns: Feels Safe At This Time Assistive Devices: Walker and Wheelchair Review of Systems Constitutional: no fever, no chills and no anorexia Eyes: no problem reported Ear, Nose, Mouth, Throat: no problem reported Respiratory: no cough and no dyspnea Cardiovascular: no chest pain Gastrointestinal: + abdominal pain (abdominal wall pain); no nausea and no vomiting Genitourinary: no dysuria Musculoskeletal: no back pain Integumentary: no problem reported Neurologic: + generalized weakness; no localized wea kness Psychiatric: no behavioral changes Hematologic / Lymphatic: no easy bleeding and no easy bruising Physical Exam Constitutional: WD/WN, vitals as above Eyes: no scleral abnormality Neck: trachea midline Respiratory: normal respiratory effort, lungs clear to auscultation Cardiovascular: RRR, no murmur, no edema Gastrointestinal (Abdomen): Inspection/Auscultation: abdomen normal to inspection and + abdominal surgical incision (open portion with purulent drainage; no undrained fluctuance); abdomen not distended Percussion/Palpation: + abdomen tender and abdomen soft; no guarding and abdomen not rigid no abscess Musculoskeletal: Head/Neck/Chest: normocephalic and head atraumatic Skin: no rashes, warm and dry Results & Data Vital Signs (Past 12 Hours) Vital Signs Temp Pulse Pulse Resp BP Pulse Ox O2 Del Method 03/28/25 08:32 36.7 C 100 H 20 122/75 95 Room Air 03/28/25 03:35 37.1 C 85 18 113/74 96 Room Air 03/27/25 23:49 37 C 92 H 16 108/70 97 Room Air 03/27/25 21:48 95 H Diagnostic Findings EXAM: CT abd pelvis IV con only ADDENDUM: The findings were verbally discussed by the radiologist with upon request at [id number] at 01:51 PM AERODYNAMICIST on 03/27/2025 Electronically signed by Deo Brenner 03-27-2025 2:55 PM ADDENDUM END EXAM: CT abd pelvis IV con only CLINICAL HISTORY: wound drainage s/p wound vac removal TECHNIQUE: Contrast-enhanced CT of the abdomen and pelvis was performed, with the following protocol: axial images and reconstructed coronal and sagittal images. Intravenous contrast was administered. One of the following dose reduction techniques was utilized for this exam: Automated exposure control, adjustment of the mA and/or kV according to patient size, and use of iterative reconstruction. COMPARISON: prior CT 02/23/2025. FINDINGS: OBX.5.1OBX.5.1.1Properly positioned interpedicular screws at L3, L4 /OBX.5.1.1OBX.5.1.2 L5 levels./OBX.5.1.2/OBX.5.1 A properly positioned infrarenal IVC filter A properly positioned left lumbar region drainage tube OBX.5.1OBX.5.1.1 Regression of size of encapsulated fluid collection in mid abdomen /OBX.5.1.1OBX.5.1.2 left lumbar region measuring about 79x42 mm with multiple air foci within./OBX.5.1.2/OBX.5.1 Unchanged multiple encapsulated fluid collections involving perisplenic, left paracolic spaces, and anterior to abdominal aorta. Interval resolution of collection in transverse mesocolon. Unchanged multiple enlarged surrounding lymph nodes, ranging in size from 5-15 mm Unchanged haziness of the surrounding fat planes. New finding of fat stranding with multiple air foci in the anterior abdominal wall in the umbilical region. Still seen normal remaining pancreatic tissue in the region of the head. No longer seen the previously described moderate pericardial effusion. Minimal bilateral pleural effusion. Abdomen: Liver: Normal in size, shape, and density. No focal lesions, cysts, or masses were identified. Hepatic vasculature and biliary ducts are unremarkable. Gallbladder and Biliary System: The gallbladder is normal in size and shape. No wall thickening, pericholecystic fluid, or gallstones were identified. The common bile duct is normal in caliber without dilation. Spleen: Normal in size, shape, and density. No splenic lesions or masses were identified. Appendix: Not visualized. Kidneys and Adrenal Glands: New finding of mild prominence of right pelvicalyceal system and ureter caused by inflammatory changes in retroperitoneum at L4-L5 level. Both kidneys are normal in size, shape, and position. Cortical thickness is within normal limits. No renal calculi. Adrenal glands are unremarkable with no evidence of masses or hyperplasia. Pelvis: Urinary Bladder: Normal in contour and wall thickness. No intraluminal lesions were identified. Prostate: Normal in size and contour. No focal lesions or masses were identified. Seminal Vesicles: Normal in size and appearance. No abnormalities were noted. Rectum and Sigmoid Colon: Normal wall thickness and no evidence of mass. Bowel: The visualized bowel loops are normal in caliber and appearance. No evidence of bowel obstruction or wall thickening. Bones and Soft Tissues: Diffuse osteopenia. Spondylotic changes in thoracolumbar spine. Mild anterior wedging in T12-L2 vertebral bodies, stable. Atherosclerotic changes in the abdominal aorta and its branches. Pelvic bones and soft tissues are unremarkable. No fractures or abnormal masses were identified. IMPRESSION: OBX.5.1OBX.5.1.11. Regression of size of encapsulated fluid collection in mid abdomen /OBX.5.1.1OBX.5.1.2 left lumbar region measuring about 79x42 mm with multiple air foci within./OBX.5.1.2/OBX.5.1 2. Unchanged multiple encapsulated fluid collections involving the perisplenic, left paracolic spaces, and anterior to the abdominal aorta. 3. Interval resolution of collection in transverse mesocolon. 4. Unchanged multiple enlarged surrounding lymph nodes, ranging in size from 5-15 mm 5. New finding of fat stranding with multiple air foci in the anterior abdominal wall in the umbilical region. 6. Interval resolution of moderate pericardial effusion. 7. Minimal bilateral pleural effusion (regression). 8. New finding of mild prominence of right pelvicalyceal system and ureter caused by inflammatory changes in retroperitoneum at L4-L5 level. 9. A properly positioned infrarenal IVC filter. 10. A properly positioned left lumbar region drainage tube.
[2025-03-28] MEDS: HYDROmorphone INJ 0.5 MG/0.5 ML SYR IV PRN (10:47)
--- NOTE | 2025-03-28 13:07 | Hospitalist Progress Note ---
Date of Service March 28, 2025 Assessment & Plan (1) Sepsis: (2) Leukocytosis: (3) Ambulatory dysfunction: (4) Pericardial effusion: (5) Thrombocythemia: (6) Hypomagnesemia: (7) Pressure injury of sacral region, stage 1: (8) CHF (congestive heart failure): (9) Chronic obstructive pulmonary disease: Plan 59 year old male with PMH significant for nonocclusive CAD, PVD, HTN, HLD, COPD, SAROJ on CPAP, hepatic steatosis, anemia with GI bleed in Sep, and extensive abdominal problems requiring multiple hospitalizations as detailed below that presented to the ED on 03/27/2025 with increased drainage from his abdominal wound and is admitted for this and need for senior care placement. Recent hospitalization synopsis: -Hospitalized at [facility] from 11/18-12/04/2024 for acute on chronic hypoxic/hypercarbic respiratory failure secondary to a COPD exacerbation complicated by acute metabolic encephalopathy, alcohol withdrawal transiently requiring mechanical ventilation, aspiration pneumonia, urinary retention, and acute renal failure requiring HD -Transferred to [facility] on 12/04/2024 due to acute alcoholic hemorrhagic pancreatitis which required IR embolization -Hospitalized at [facility] from 12/04-01/31/2025 with prolonged ICU admission, OR exploration on 12/13, abdominal closure on 12/19 with mesh and drain placement, IR drain into pseudocyst and upsized on 01/20 -Discharged to [facility] on 01/31/2025 -Transferred to [facility] ED on 02/02/2025 for hypotension and worsening hypoxic respiratory failure -Hospitalized at [facility] from 02/02-02/23/2025 for severe sepsis secondary to pneumonia vs necrotizing pancreatitis with fluid overload and C diff infection -Transferred to [facility] on 02/23/2025 due to increasing leukocytosis without clear source and need for higher level of care -Hospitalized at [facility] from 02/23-03/06/2025 and found to have splenic infarct and retroperitoneal fluid collection with placement of peripancreatic drain and aspiration of splenic abscess on 02/27, persistent pancreatic colon fistula noted, IR drain noted to have hole and kinked requiring drain exchange by IR on 03/06 -Discharged to [facility] on 03/06/2025 -Discharged to home on 03/26/2025 Sepsis Superficial Surgical Wound Infection C diff colitis Severe Necrotizing Pancreatitis -Likely secondary to ongoing intraabdominal infection as described above -Leukocytosis, tachycardia, tachypnea present on admission -CT abdomen with regression of size of encapsulated fluid collection in mid abdomen; uncharged multiple encapsulated fluid collections; new finding of fat stranding with multiple air foci in anterior abdominal wall in umbilical region; interval resolution of moderate pericardial effusion; regression of bilateral pleural effusion; new finding of mild prominence of right pelvicalyceal system and ureter caused by inflammatory changes in retroperitoneum at L4-L5 level -Recent abx at [facility] and [facility]: cefepime 2g q8hr through 03/26, dapto 900mg daily through 03/26, PO vanc 125mg QID through 03/06 followed by daily through 04/02 -patient has string of recent admissions, unfortunately senior care prognosis is guarded given such significant disease Plan: -Follow blood and wound cultures -continue IV cefepime and daptomycin; continue probiotic -Continue PO vancomycin daily until 04/02/2025 -Hold statin while on daptomycin -Wound consult, appreciate recs -surgery consult, appreciate recs -treatment with packing, wound care, and antibiotics per surgery -Low threshold for transfer to [facility] if acutely worsens or requires surgical/IR intervention Ambulatory Dysfunction Chronic Pain Syndrome -Patient with profound weakness in setting of hospitalizations and illness -ambulatory dysfunction made worse by neuropathic pain, nociceptive pain in back -patient gets myoclonus with oxycodone which is a concerning symptom for the patient Plan: -PT/OT consults -stop oxycodone, start suboxone 2 q8hr prn for severe pain, continue dilaudid for breakthrough pain -suboxone less likely to cause myoclonus and should assist with neuropathic component of pain -if benefits could consider butrans patch -increase pregablin to 75mg tid for neuropathic component of pain -increase to target 300 mg per day if tolerated -stop sertraline, rotate to duloxetine 30mg for neuropathic and nociceptive pain -increase dose to 60 mg if patient tolerates -if pain continues may benefit from decadron IV to reduce inflammation around wound sites -has responded well to cyclobenzaprine in the past for his back pain Pericardial effusion -resolving per CT imaging History of PE -Originally dx on 01/03 and additional PE identified on 01/23 -Continue Eliquis History of SVT -During 02/23-03/06 admission at [facility] patient had two episodes of SVT requiring adenosine -Evaluated by EP and Cardiology who increased metoprolol dose and recommended close outpt follow up -Continue metoprolol Chronic Normocytic anemia Thrombocytosis -Hgb near baseline -Platelets 737 - decreased from previous admissions -Previous evaluation by hematology on 02/14 and thought to be reactive in setting of sepsis Hypomagnesemia -replenished Stage 1 sacral pressure ulcer -WOCN consult -Turn and reposition q2hr Chronic diastolic CHF -Chronic, stable per patient -Demonstrates LE edema but denies acute SOB COPD -Chronic, stable per patient -Continue Trelegy inhaler History of GI bleed -Continue pantoprazole History of alcohol abuse -Continue folic acid and thiamine I spent a total of 55 minutes in direct patient care, including [id number] time with the patient and/or family, reviewing medical records, ordering and r eviewing diagnostic tests, and coordinating care with other healthcare providers. This time includes: history taking, physical examination, medical decision making, counseling, ECG interpretation, imaging interpretation, lab interpretation, orders, and education, excluding time spent in the performance of separately billed services. Admission and Anticipated Discharge Date Admission Date: March 27, 2025 Subjective Patient seen and examined at bedside. Patient familiar to this provider from prior admissions, appears better overall than prior. Patient states he has significant pain in his bilateral LE, pain on the left side of his back where the drain is, and overall feels weak/fatigued. Concerned he wont be able to go home given how weak he is overall. Review of Systems Review of Systems: CONSTITUTIONAL: fatigue, weakneess EYES: Patient denies any visual symptoms. EARS, NOSE, AND THROAT: No difficulties with hearing. No symptoms of rhinitis or sore throat. CARDIOVASCULAR: Patient denies chest pains, palpitations, orthopnea and paroxysmal nocturnal dyspnea. RESPIRATORY: slightly SOB GI: No nausea, vomiting, diarrhea, constipation, abdominal pain, hematochezia or melena. : No urinary hesitancy or dribbling. No nocturia or urinary frequency. No abnormal urethral discharge. MUSCULOSKELETAL: leg pain, back pain NEUROLOGIC: No chronic headaches, no seizures. Patient denies numbness, tingling or weakness. PSYCHIATRIC: Patient denies problems with mood disturbance. No problems with anxiety. ENDOCRINE: No excessive urination or excessive thirst. DERMATOLOGIC: Patient denies any rashes or skin changes. Physical Exam Physical Exam: Gen: A&O 3 NAD HEENT: NCAT, EOMI, not icteric. External ears normal. No rhinorrhea. Moist mucous membranes. Neck: Supple, full range of motion, no observable masses, No meningeal sign. Lungs: No Respiratory distress. CV: RRR, no edema. Abdomen: personally looked at abdominal wound, purulent drainage noted on top MSK: No joint swelling, no redness. Noted drain in back, Tenderness to palpation on legs Skin: No rashes, petechiae, lesions. Normal color per patient. Neuro: Normal Gait, Grossly intact. Psych: Appropriate for situation. Results & Data Results & Data Vital Signs (Past 12 Hours) Vital Signs Temp Pulse Pulse Resp BP Pulse Ox O2 Del Method 03/28/25 11:31 36.3 C L 95 H 16 113/73 94 Room Air 03/28/25 11:22 Room Air 03/28/25 11:18 95 H 03/28/25 08:32 36.7 C 100 H 20 122/75 95 Room Air 03/28/25 03:35 37.1 C 85 18 113/74 96 Room Air Laboratory Results -personally reviewed, downtrending leukocytosis, Hgb stable, elevated alk phos consistent with known cirrhosis, low albumin consistent with malnutrition (2) Leukocytosis Leukocytosis type: unspecified Qualified Code(s): D72.829 - Elevated white blood cell count, unspecified (8) CHF (congestive heart failure) Heart failure chronicity: acute Heart failure type: unspecified Qualified Code(s): I50.9 - Heart failure, unspecified (9) Chronic obstructive pulmonary disease COPD type: COPD with acute exacerbation Qualified Code(s): J44.1 - Chronic obstructive pulmonary disease with (acute) exacerbation
[2025-03-28] MEDS: PREGABALIN 75 MG CAP PO SCH (13:12)
[2025-03-28] MEDS: LIDOCAINE 5% 1 PATCH TD SCH (13:12)
[2025-03-28] MEDS: DAPTOmycin 850 MG in SYRINGE 0 ML IV SCH (14:41)
[2025-03-28] MEDS: REMOVE LIDODERM PATCH SCH (20:15)
[2025-03-29 06:23] LABS: Hematocrit (blood only) 23.4 % (42.0-52.0); Hemoglobin 7.2 g/dl (14.0-18.0); Immature Granulocytes # (auto) 0.14 K/uL (0.01-0.20); Immature Granulocytes % (auto) 1.2 %; Mean Corpuscular Hemoglobin 30.3 pg (25.0-34.0); Mean Corpuscular Volume 98.3 fL (80.0-100.0); Platelet Count 665 K/uL (130-400); RDW Standard Deviation 58.8 fL (36.4-46.3); Red Blood Count 2.38 M/uL (4.70-6.10); White Blood Count 11.76 K/ul (4.8-10.8)
[2025-03-29 06:44] LABS: Alanine Aminotransferase 32.0 U/L (7-52); Albumin Globulin Ratio 0.6 (0.9-2); Alkaline Phosphatase 305.0 U/L (34-104); Anion Gap 9.0 (3-11); Bilirubin,Total 0.4 mg/dl (0.2-1.0); Blood Urea Nitrogen 23.0 mg/dl (6-23); Calcium 9.3 mg/dl (8.6-10.3); Carbon Dioxide 22.0 mmol/L (21-32); Chloride 104.0 mmol/L (98-107); Creatinine Clr Calc Pharmacy 128.9 ml/min; Globulin 4.5 gm/dl (2.5-4.0); Glucose 91.0 mg/dl (70-99(Fasting)); Magnesium 1.6 mg/dl (1.7-2.4); Potassium 4.3 mmol/L (3.5-5.1); Sodium 135.0 mmol/L (136-145); Total Protein 7.1 gm/dl (6.0-8.3)
[2025-03-29 07:03] LABS: Rouleaux 1+
[2025-03-29] MEDS: BUPRENORPHINE/NALOXONE 2/0.5MG TAB SL PRN ×2 (09:06→13:12)
--- NOTE | 2025-03-29 10:22 | Surgery Progress Note ---
Date of Service March 29, 2025 Assessment & Plan (1) Wound, open, abdominal wall, anterior with complication: Plan: abx wound care no surgical intervention necessary Admission and Anticipated Discharge Date Admission Date: March 27, 2025 Subjective pain about same still purulent drainage no abscess Review of Systems Constitutional: no fever and no chills Respiratory: no dyspnea Cardiovascular: no chest pain Gastrointestinal: no abdominal pain, no nausea and no vomiting Genitourinary: no dysuria Musculoskeletal: no problem reported Integumentary: + problem reported (cellulitis and open midline wound; no fluctuance) Neurologic: no localized weakness and no generalized weakness Psychiatric: no behavioral changes Hematologic / Lymphatic: no easy bleeding and no easy bruising Physical Exam Constitutional: WD/WN, vitals as above Respiratory: normal respiratory effort Cardiovascular: Rate/Rhythm: regular rate and regular rhythm Gastrointestinal (Abdomen): Inspection/Auscultation: abdomen normal to inspection, normal bowel sounds and + abdominal surgical incision (open with reactive erythema; no abscess); abdomen not distended Skin: no rashes, warm and dry Results & Data Vital Signs (Past 12 Hours) Vital Signs Temp Pulse Resp BP Pulse Ox O2 Del Method 03/29/25 08:16 36.6 C 94 H 18 115/73 95 Room Air 03/29/25 03:28 36.7 C 90 17 109/70 94 Room Air 03/29/25 00:51 36.9 C 94 H 18 128/81 93 Room Air
--- NOTE | 2025-03-29 11:53 | Hospitalist Progress Note ---
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 Patient's acute issue for the hospitalization is draining abdominal wall wound. Reviewed surgical recommendations. No need for surgical intervention, recommending wound care management Blood and urine cultures unremarkable. No gram-positive growth. Discontinue daptomycin continue cefepime. Anticipate transitioning to oral antibiotics within the next 24 hours Wound care team to evaluate anticipate need for packing of the wound and healing through secondary intent Continue therapies Case management evaluating for possible placement to half-way Continue other oral medications as prescribed Continue oral vancomycin for C. difficile prophylaxis Check ultrasound left lower extremity due to some increased swelling. Patient already on Eliquis for history of [facility] Admission and Anticipated Discharge Date Admission Date: March 27, 2025 Subjective Patient describes diffuse pain. Mostly neuropathic pain in his feet and legs. Then some overall generalized musculoskeletal pain. Abdominal wall wound is draining but less inflamed. Physical Exam Physical Exam: Constitutional: Alert, nontoxic in appearance HEENT: Mucous membranes moist. Lungs: Decreased breath sounds CV: S1-S2, regular Abdomen: Soft, nontender, nondistended, abdominal wall/incisional wound less red and inflamed. Does have some purulent drainage dry gauze dressing in place and removed to evaluate. Extremities: Some slight increased edema in left lower extremity over the right Neuro: No focal deficits, generally weak Psych: Cooperative, normal mood Results & Data Results & Data Vital Signs (Past 12 Hours) Vital Signs Temp Pulse Pulse Resp BP Pulse Ox O2 Del Method 03/29/25 11:31 36.4 C L 105 H 24 103/61 95 Room Air 03/29/25 10:57 89 03/29/25 08:16 36.6 C 94 H 18 115/73 95 Room Air 03/29/25 03:28 36.7 C 90 17 109/70 94 Room Air 03/29/25 00:51 36.9 C 94 H 18 128/81 93 Room Air (8) Chronic obstructive pulmonary disease COPD type: COPD with acute exacerbation Qualified Code(s): J44.1 - Chronic obstructive pulmonary disease with (acute) exacerbation
[2025-03-29] MEDS: PREGABALIN 100 MG CAP PO SCH (13:12)
[2025-03-29] MEDS: ACETAMINOPHEN 500 MG TAB PO SCH (13:12)
--- NOTE | 2025-03-29 15:21 | Ultrasound Report ---
LEFT LOWER EXTREMITY VENOUS DOPPLER CLINICAL HISTORY: Left lower extremity swelling. COMPARISON STUDY: Bilateral lower extremity venous Doppler ultrasound February 02, 2025. TECHNIQUE: Sonography of the deep venous system of the left lower extremity was performed. Compressi on and augmentation were evaluated. FINDINGS: The left common femoral, superficial femoral and popliteal veins were compressible. Augmen tation was normal. Flow was shown within the deep calf vessels. IMPRESSION: No evidence of deep venous thrombus within the left lower extremity. ACT 112: Negative or not required by law. Electronically signed by: Quan Tripp M.D. 03/29/2025 3:19 PM
[2025-03-30 08:24] LABS: Hematocrit (blood only) 22.4 % (42.0-52.0); Hemoglobin 6.8 g/dl (14.0-18.0); Mean Corpuscular Hemoglobin 30.6 pg (25.0-34.0); Mean Corpuscular Volume 100.9 fL (80.0-100.0); Platelet Count 644 K/uL (130-400); RDW Standard Deviation 61.1 fL (36.4-46.3); Red Blood Count 2.22 M/uL (4.70-6.10); White Blood Count 11.01 K/ul (4.8-10.8)
[2025-03-30 08:37] LABS: Alanine Aminotransferase 30.0 U/L (7-52); Albumin Globulin Ratio 0.6 (0.9-2); Alkaline Phosphatase 294.0 U/L (34-104); Anion Gap 7.0 (3-11); Bilirubin,Total 0.3 mg/dl (0.2-1.0); Blood Urea Nitrogen 42.0 mg/dl (6-23); Calcium 9.3 mg/dl (8.6-10.3); Carbon Dioxide 24.0 mmol/L (21-32); Chloride 104.0 mmol/L (98-107); Creatinine Clr Calc Pharmacy 101.9 ml/min; Globulin 4.5 gm/dl (2.5-4.0); Glucose 87.0 mg/dl (70-99(Fasting)); Magnesium 1.6 mg/dl (1.7-2.4); Potassium 4.9 mmol/L (3.5-5.1); Sodium 135.0 mmol/L (136-145); Total Protein 7.2 gm/dl (6.0-8.3)
[2025-03-30] MEDS: ATORVASTATIN 40 MG TAB PO SCH (08:37)
[2025-03-30 08:44] LABS: Immature Granulocytes # (auto) 0.16 K/uL (0.01-0.20); Immature Granulocytes % (auto) 1.5 %; Polychromasia 1+
[2025-03-30] MEDS ORDERED: SODIUM CHLORIDE 0.9% 100 ML IV PRN (09:54)
[2025-03-30] MEDS: BUPRENORPHINE/NALOXONE 2/0.5MG TAB SL PRN (10:00)
--- NOTE | 2025-03-30 10:13 | Surgery Progress Note ---
Date of Service March 30, 2025 Assessment & Plan (1) Wound, open, abdominal wall, anterior with complication: Plan: abx wound care- wet to dry dressing to open wound- nursing note ordered no surgical intervention necessary IR drain tube, not secured to skin. Will need follow-up with [facility] surgery/IR team given complex surgical history. Discussed with Dr. Rothman. Admission and Anticipated Discharge Date Admission Date: March 27, 2025 Subjective feeling okay this morning, not having much abdominal or back pain right now no n,v tolerating diet moving bowels per nursing staff, the left flank drain site is not secure to skin via any sutures. Overnight tubing might have been kinked so they taped to skin to keep it from getting clogged. Minimal output. Patient states he has never heard from [facility] surgery/IR about drain management or follow-up. Physical Exam Constitutional: WD/WN, vitals as above cooperative and comfortable; no acute distress and not ill appearing Respiratory: normal respiratory effort; no respiratory distress, no labored breathing and no retractions Gastrointestinal (Abdomen): Inspection/Auscultation: abdomen normal to inspection and + abdominal surgical incision; abdomen not distended Percussion/Palpation: abdomen soft; abdomen nontender, no guarding and abdomen not rigid Ex lap incision with midline open wound measuring about 4.5 cm in diameter and about 1.0 cm in depth with healthy granulation tissue at base with fibrinous/purulent drainage on dressing. There is moderate induration to left of midline but no erythema. Some fibrinous tissue inferior to open wound likely due to drainage from open wound. Fascia is intact. The left flank drainage tube with brown purulent drainage in tubing and minimal in bag. Reactive erythema surrounding drain insertion site but drain is not secure to skin with any sutures. Just secured with tape. Skin: no rashes, warm and dry Psychiatric: Orientation: alert and oriented x 3 Results & Data Vital Signs (Past 12 Hours) Vital Signs Temp Pulse Resp BP Pulse Ox O2 Del Method 03/30/25 07:57 36.5 C 95 H 16 107/72 94 Room Air Laboratory Results 03/30/25 03/30/25 Range/Units 10:10 07:04 WBC 11.01 H (4.8-10.8) K/ul RBC 2.22 L (4.70-6.10) M/uL Hgb 6.8 L* (14.0-18.0) g/dl Hct 22.4 L (42.0-52.0) % MCV 100.9 H (80.0-100.0) fL MCH 30.6 (25.0-34.0) pg MCHC 30.4 L (32.0-36.0) g/dL RDW Std Deviation 61.1 H (36.4-46.3) fL RDW Coeff of Rogelio 16.6 H (11.5-14.5) % Plt Count 644 H (130-400) K/uL MPV 10.3 (9.4-12.4) fL Immature Gran % (Auto) 1.5 % Neut % (Auto) 70.2 % Lymph % (Auto) 10.4 % [place] % (Auto) 14.5 % Eos % (Auto) 2.7 % Baso % (Auto) 0.7 % Neut # (Auto) 7.73 H (1.40-6.50) K/uL Lymph # (Auto) 1.14 L (1.20-3.40) K/uL [place] # (Auto) 1.60 H (0.11-0.59) K/uL Eos # (Auto) 0.30 (0.00-0.50) K/uL Baso # (Auto) 0.08 (0.00-0.20) K/uL Immature Gran # (Auto) 0.16 (0.01-0.20) K/uL Polychromasia 1+ Sodium 135 L (136-145) mmol/L Potassium 4.9 (3.5-5.1) mmol/L Chloride 104 (98-107) mmol/L Carbon Dioxide 24 (21-32) mmol/L Anion Gap 7 (3-11) BUN 42 H (6-23) mg/dl Creatinine 0.86 (0.6-1.4) mg/dl Est Cr Clr Drug Dosing 101.9 ml/min eGFR 98.51 BUN/Creatinine Ratio 48.8 H (10-20) Glucose 87 (70-99(Fasting)) mg/dl Calcium 9.3 (8.6-10.3) mg/dl Magnesium 1.6 L (1.7-2.4) mg/dl Total Bilirubin 0.3 (0.2-1.0) mg/dl AST 22 (13-39) U/L ALT 30 (7-52) U/L Alkaline Phosphatase 294 H (34-104) U/L Total Protein 7.2 (6.0-8.3) gm/dl Albumin 2.7 L (3.4-5.0) gm/dl Globulin 4.5 H (2.5-4.0) gm/dl Albumin/Globulin Ratio 0.6 L (0.9-2) Blood Type O Positive Antibody Screen NEGATIVE Crossmatch See Detail
[2025-03-30] MEDS: FUROSEMIDE 40 MG/4 ML VIAL IV ONE (10:17)
[2025-03-30] MEDS: MAGNESIUM SULFATE / D5W 1 GM/100 ML BAG IV SCH (10:17)
--- NOTE | 2025-03-30 11:58 | Hospitalist Progress Note ---
Date of Service March 30, 2025 Assessment & Plan (1) Sepsis: (2) Wound, open, abdominal wall, anterior with complication: (3) Electrolyte abnormality: (4) Iron deficiency anemia: (5) Reactive thrombocytosis: (6) Pressure injury of sacral region, stage 1: (7) Intra-abdominal abscess post-procedure: Plan: Drain placed by IR at [place] in flank (8) Chronic pain syndrome: (9) Peripheral neuropathy: (10) Chronic obstructive pulmonary disease: (11) History of Clostridioides difficile colitis: (12) Paroxysmal SVT (supraventricular tachycardia): Plan Patient with recent complicated medical course with multiple hospitalizations here at [facility] and [facility]. Presented with signs and symptoms consistent with sepsis. Sepsis most likely from incisional abscess in the anterior abdomen. Currently draining and being packed. Responding to antibiotic treatment. Patient has ongoing intra-abdominal abscesses from necrotizing pancreatitis, drain in place. Was placed by IR at [place]. Will need to coordinate ongoing follow-up and management of this drain with IR at [place]. Continue local wound care to abdominal wall incisional abscess. Can transition to oral antibiotics Continue current medications for pain control, patient reports that his neuropathy is significantly improved with the increase Lyrica Patient with chronic iron deficiency anemia. Has required blood transfusions recently. Suspect in addition to his iron deficiency, patient's bone marrow suppressed due to the ongoing chronic infection. Thrombocytosis is reactive due to the infections, is improving and will continue to monitor Transfuse 1 unit packed red blood cells today. Replace magnesium Continue to monitor electrolytes and CBC Awaiting insurance authorization for ongoing care [facility]charge to [facility] tomorrow or when authorization approved. Admission and Anticipated Discharge Date Admission Date: March 27, 2025 Subjective No acute events overnight. Patient tolerating wound changes. Patient reports that he has needed some blood transfusions recently with his multiple admissions. Physical Exam Physical Exam: Constitutional: Alert, nontoxic, slightly pale HEENT: Mucous membranes moist. Lungs: Clear to auscultation, decreased, no wheezes rales or rhonchi CV: S1-S2, regular Abdomen: Soft, nontender, nondistended, wound dressing clean and dry Extremities: No significant edema Neuro: No focal deficits, General Weakness Psych: Cooperative, normal mood Results & Data Results & Data Vital Signs (Past 12 Hours) Vital Signs Temp Pulse Pulse Resp BP BP Pulse Ox 03/30/25 11:45 36.5 C 92 H 16 98/64 L 96 03/30/25 11:21 36.6 C 91 H 16 92/53 L 95 03/30/25 07:57 36.5 C 95 H 16 107/72 94 03/30/25 07:50 O2 Del Method 03/30/25 11:45 03/30/25 11:21 03/30/25 07:57 Room Air 03/30/25 07:50 Room Air Diagnostic Findings Reviewed imaging, laboratory and diagnostic studies. Pertinent findings as below. WBCs 11.0 Hemoglobin 6.8, trending down Platelets of 644, improving Sodium 135 Creatinine 0.86 Magnesium 1.6 (10) Chronic obstructive pulmonary disease COPD type: COPD with acute exacerbation Qualified Code(s): J44.1 - Chronic obstructive pulmonary disease with (acute) exacerbation
[2025-03-30 15:49] LABS: Hematocrit (blood only) 24.6 % (42.0-52.0); Hemoglobin 7.6 g/dl (14.0-18.0)
[2025-03-30] MEDS: AMOXICILLIN/CLAVULANATE 875 MG TAB PO SCH (16:52)
[2025-03-31] MEDS: SODIUM FERRIC GLUCONATE 125 MG in SODIUM CHLORIDE 0.9% 100 ML IV ONE (06:41)
[2025-03-31 08:48] LABS: Hematocrit (blood only) 28.5 % (42.0-52.0); Hemoglobin 8.6 g/dl (14.0-18.0); Immature Granulocytes # (auto) 0.10 K/uL (0.01-0.20); Immature Granulocytes % (auto) 0.8 %; Mean Corpuscular Hemoglobin 30.6 pg (25.0-34.0); Mean Corpuscular Volume 101.4 fL (80.0-100.0); Platelet Count 698 K/uL (130-400); RDW Standard Deviation 66.0 fL (36.4-46.3); Red Blood Count 2.81 M/uL (4.70-6.10); White Blood Count 13.12 K/ul (4.8-10.8)
[2025-03-31 09:04] LABS: Anion Gap 7.0 (3-11); Blood Urea Nitrogen 50.0 mg/dl (6-23); Calcium 9.8 mg/dl (8.6-10.3); Carbon Dioxide 25.0 mmol/L (21-32); Chloride 104.0 mmol/L (98-107); Creatinine Clr Calc Pharmacy 111.0 ml/min; Glucose 96.0 mg/dl (70-99(Fasting)); Magnesium 1.9 mg/dl (1.7-2.4); Potassium 5.1 mmol/L (3.5-5.1); Sodium 136.0 mmol/L (136-145)
--- NOTE | 2025-03-31 11:00 | Surgery Progress Note ---
Date of Service March 31, 2025 Assessment & Plan (1) Wound, open, abdominal wall, anterior with complication: Plan: abx no surgical intervention necessary IR drain tube, not secured to skin. Will need follow-up with [facility]/IR team given complex surgical history. Wound vac to midline wound to help with healing and wound care to skin inferior to wound due to constant drainage [facility] surgery covering weekend Admission and Anticipated Discharge Date Admission Date: March 27, 2025 Subjective no abdominal pain or back pain this am at drain site no fevers or chills feeling okay Physical Exam Constitutional: WD/WN, vitals as above cooperative; no acute distress and not ill appearing Gastrointestinal (Abdomen): Inspection/Auscultation: abdomen normal to inspection, + abdominal surgical incision and + abdominal surgical drain present (left retroperitoneal IR drain with brown purulent drainage); abdomen not distended midline laparotomy incision with midline wound with granulation tissue and purulent drainage to left of midline. There is fibrinous tissue inferior to open wound with some skin breakdown due to constant drainage. Skin: no rashes, warm and dry Psychiatric: Orientation: alert and oriented x 3 Results & Data Vital Signs (Past 12 Hours) Vital Signs Temp Pulse Resp BP Pulse Ox O2 Del Method 03/31/25 10:38 36.9 C 90 16 94 03/31/25 07:12 36.9 C 90 16 95/59 L 94 Room Air Laboratory Results 03/31/25 03/30/25 03/30/25 Range/Units 08:25 15:31 10:10 WBC 13.12 H (4.8-10.8) K/ul RBC 2.81 L (4.70-6.10) M/uL Hgb 8.6 L 7.6 L (14.0-18.0) g/dl Hct 28.5 L 24.6 L (42.0-52.0) % MCV 101.4 H (80.0-100.0) fL MCH 30.6 (25.0-34.0) pg MCHC 30.2 L (32.0-36.0) g/dL RDW Std Deviation 66.0 H (36.4-46.3) fL RDW Coeff of Rogelio 17.6 H (11.5-14.5) % Plt Count 698 H (130-400) K/uL MPV 10.2 (9.4-12.4) fL Immature Gran % (Auto) 0.8 % Neut % (Auto) 76.6 % Lymph % (Auto) 9.8 % [place] % (Auto) 9.7 % Eos % (Auto) 2.6 % Baso % (Auto) 0.5 % Neut # (Auto) 10.06 H (1.40-6.50) K/uL Lymph # (Auto) 1.28 (1.20-3.40) K/uL [place] # (Auto) 1.27 H (0.11-0.59) K/uL Eos # (Auto) 0.34 (0.00-0.50) K/uL Baso # (Auto) 0.07 (0.00-0.20) K/uL Immature Gran # (Auto) 0.10 (0.01-0.20) K/uL Sodium 136 (136-145) mmol/L Potassium 5.1 (3.5-5.1) mmol/L Chloride 104 (98-107) mmol/L Carbon Dioxide 25 (21-32) mmol/L Anion Gap 7 (3-11) BUN 50 H (6-23) mg/dl Creatinine 0.79 (0.6-1.4) mg/dl Est Cr Clr Drug Dosing 111.0 ml/min eGFR 101.07 BUN/Creatinine Ratio 63.3 H (10-20) Glucose 96 (70-99(Fasting)) mg/dl Calcium 9.8 (8.6-10.3) mg/dl Magnesium 1.9 (1.7-2.4) mg/dl Blood Type O Positive Antibody Screen NEGATIVE Crossmatch See Detail
--- NOTE | 2025-03-31 15:01 | Hospitalist Progress Note ---
Date of Service March 31, 2025 Assessment & Plan (1) Sepsis: (2) Wound, open, abdominal wall, anterior with complication: (3) Electrolyte abnormality: (4) Iron deficiency anemia: (5) Reactive thrombocytosis: (6) Pressure injury of sacral region, stage 1: (7) Intra-abdominal abscess post-procedure: Plan: Drain placed by IR at [place] in flank (8) Chronic pain syndrome: (9) Peripheral neuropathy: (10) Chronic obstructive pulmonary disease: (11) History of Clostridioides difficile colitis: (12) Paroxysmal SVT (supraventricular tachycardia): Plan 59 year old male with PMH significant for nonocclusive CAD, PVD, HTN, HLD, COPD, SAROJ on CPAP, hepatic steatosis, anemia with GI bleed in Sep, and extensive abdominal problems requiring multiple hospitalizations as detailed below that presented to the ED on 03/27/2025 with increased drainage from his abdominal wound and is admitted for this and need for group home placement. Refer to progress note of 03/28/25 for synopsis of recent hospitalizations at [facility] and [facility] from 10/2024 till 02/2025 and had procedures at [facility] Sepsis Superficial Surgical Wound Infection C diff colitis Severe Necrotizing Pancreatitis Likely secondary to ongoing intraabdominal infection Leukocytosis, tachycardia, tachypnea present on admission CT abdomen with regression of size of encapsulated fluid collection in mid abdomen; uncharged multiple encapsulated fluid collections; new finding of fat stranding with multiple air foci in anterior abdominal wall in umbilical region; interval resolution of moderate pericardial effusion; regression of bilateral pleural effusion; new finding of mild prominence of right pelvicalyceal system and ureter caused by inflammatory changes in retroperitoneum at L4-L5 level Recent abx at [facility] and [facility]: cefepime 2g q8hr through 03/26, dapto 900mg daily through 03/26, PO vanc 125mg QID through 03/06 followed by daily through 04/02 Currently on Augmentin Continue probiotic Continue PO vancomycin daily until 04/02/2025 Gen surg on board. Continue to monitor drainage and wound care Ambulatory Dysfunction Chronic Pain Syndrome Patient with profound weakness in setting of hospitalizations and illness Ambulatory dysfunction made worse by neuropathic pain, nociceptive pain in back Discussed with sister today. She reported patieint was having some twitching/myoclonus yesterday and will not like for patient to continue oxycodone on discharge She prefers the suboxone Continue suboxone on discharge to rehab Stop duloxetine for now due to report of myoclonus and possible drug interaction with opioids Continue increased dose of pregabalin History of PE Originally dx on 01/03 and additional PE identified on 01/23 Continue Eliquis History of SVT During 02/23-03/06 admission at [facility] patient had two episodes of SVT requiring adenosine Evaluated by EP and Cardiology who increased metoprolol dose and recommended close outpt follow up Continue metoprolol Chronic Normocytic anemia Thrombocytosis Got 1 pRBC Stage 1 sacral pressure ulcer WOCN consult Turn and reposition q2hr Chronic diastolic CHF Monitor volume status COPD Chronic, stable per patient Continue Trelegy inhaler History of GI bleed Continue pantoprazole CM notified me that [facility] will not take him due to suboxone except if changed to oxycodone I called sister and updated her. She reported patient was still having myoclonus yesterday and prefer to stay on suboxone which is reasonable with lower risk of addiction Planned discharge to [facility] canceled CM working with family on getting a different facility Once another facility is obtained, Patient will need all meds represcribe to new facility Code status- Full DVT ppx- Eliquis I spent a total of 65 minutes coordinating, documenting and providing care for this patient excluding time spent in performance of separately billed services Admission and Anticipated Discharge Date Admission Date: March 27, 2025 Subjective Patient seen and examined Denied any complaints today Physical Exam Constitutional: + well hydrated; no acute distress Eyes: PERRL, conjunctivae normal, anicteric sclerae ENMT: external ear and nose normal, oropharynx normal Respiratory: normal respiratory effort, lungs clear to auscultation Cardiovascular: Rate/Rhythm: regular rate and regular rhythm Gastrointestinal (Abdomen): Clean dressing over anterior abd all incision. Left lower flank drain in situ Musculoskeletal: +pedal edema Neurologic: PERRL, EOMI, accommodation nl, no face palsy, no dysarthria Psychiatric: Alert and oriented to person, place and time Results & Data Results & Data Vital Signs (Past 12 Hours) Vital Signs Temp Pulse Resp BP Pulse Ox O2 Del Method 03/31/25 14:13 36.5 C 100 H 18 94/59 L 97 Room Air 03/31/25 10:38 36.9 C 90 16 94 03/31/25 07:12 36.9 C 90 16 95/59 L 94 Room Air Laboratory Results Abnormal lab results 03/31/25 Range/Units 08:25 WBC 13.12 H (4.8-10.8) K/ul RBC 2.81 L (4.70-6.10) M/uL Hgb 8.6 L (14.0-18.0) g/dl Hct 28.5 L (42.0-52.0) % MCV 101.4 H (80.0-100.0) fL MCHC 30.2 L (32.0-36.0) g/dL RDW Std Deviation 66.0 H (36.4-46.3) fL RDW Coeff of Rogelio 17.6 H (11.5-14.5) % Plt Count 698 H (130-400) K/uL Neut # (Auto) 10.06 H (1.40-6.50) K/uL [place] # (Auto) 1.27 H (0.11-0.59) K/uL BUN 50 H (6-23) mg/dl BUN/Creatinine Ratio 63.3 H (10-20) (10) Chronic obstructive pulmonary disease COPD type: COPD with acute exacerbation Qualified Code(s): J44.1 - Chronic obstructive pulmonary disease with (acute) exacerbation
[2025-04-01 05:53] LABS: Hematocrit (blood only) 26.9 % (42.0-52.0); Hemoglobin 8.3 g/dl (14.0-18.0); Mean Corpuscular Hemoglobin 30.5 pg (25.0-34.0); Mean Corpuscular Volume 98.9 fL (80.0-100.0); Platelet Count 655 K/uL (130-400); RDW Standard Deviation 61.3 fL (36.4-46.3); Red Blood Count 2.72 M/uL (4.70-6.10); White Blood Count 12.60 K/ul (4.8-10.8)
[2025-04-01 07:51] LABS: Anion Gap 9.0 (3-11); Calcium 9.7 mg/dl (8.6-10.3); Carbon Dioxide 23.0 mmol/L (21-32); Chloride 105.0 mmol/L (98-107); Potassium 4.8 mmol/L (3.5-5.1); Sodium 137.0 mmol/L (136-145)
[2025-04-01 07:56] LABS: Blood Urea Nitrogen 52.0 mg/dl (6-23); Creatinine Clr Calc Pharmacy 115.4 ml/min; Glucose 80.0 mg/dl (70-99(Fasting))
--- NOTE | 2025-04-01 09:27 | Surgery Progress Note ---
Date of Service April 01, 2025 Assessment & Plan (1) Intra-abdominal abscess post-procedure: Plan: no acute surgical issues. will need to f/u with jorge call us if any problems/questions (2) Wound, open, abdominal wall, anterior with complication: Admission and Anticipated Discharge Date Admission Date: March 27, 2025 Subjective pt seen. apparently some confusion overnight. d/c planning in progess. Physical Exam Physical Exam: currently alert. nad abd: soft. nt. wound vac in place. Results & Data Vital Signs (Past 12 Hours) Vital Signs Temp Pulse Resp BP Pulse Ox O2 Del Method 04/01/25 09:04 36.9 C 101 H 16 95/57 L 93 Room Air PG Care Time/CCT Total # of Minutes Spent Total Time Spent with Patient: Total time spent is greater than 50% in coordination of care (as documented) at patient's floor/unit and/or counseling patient: Coding Level of Care Code 53725 SUB INP/OBS CARE 10/15MIN Diagnoses Intra-abdominal abscess post-procedure T81.43XA; K65.1 Wound, open, abdominal wall, anterior with complication S31.109A
--- NOTE | 2025-04-01 13:51 | Hospitalist Progress Note ---
Date of Service April 01, 2025 Assessment & Plan (1) Sepsis: (2) Wound, open, abdominal wall, anterior with complication: (3) Electrolyte abnormality: (4) Iron deficiency anemia: (5) Reactive thrombocytosis: (6) Pressure injury of sacral region, stage 1: (7) Intra-abdominal abscess post-procedure: Plan: Drain placed by IR at [place] in flank (8) Chronic pain syndrome: (9) Peripheral neuropathy: (10) Chronic obstructive pulmonary disease: (11) History of Clostridioides difficile colitis: (12) Paroxysmal SVT (supraventricular tachycardia): Plan 59 year old male with PMH significant for nonocclusive CAD, PVD, HTN, HLD, COPD, 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 Refer to progress note of 03/28/25 for synopsis of recent hospitalizations at [facility] and [facility] from 10/2024 till 02/2025 and had procedures at [facility] Sepsis POA Superficial Surgical Wound Infection C diff colitis Severe Necrotizing Pancreatitis Likely secondary to ongoing intraabdominal infection Leukocytosis, tachycardia, tachypnea present on admission CT abdomen with regression of size of encapsulated fluid collection in mid abdo men; unchanged multiple encapsulated fluid collections; new finding of fat stranding with multiple air foci in anterior abdominal wall in umbilical region; interval resolution of moderate pericardial effusion; regression of bilateral pleural effusion; new finding of mild prominence of right pelvicalyceal system and ureter caused by inflammatory changes in retroperitoneum at L4-L5 level Recent abx at [facility] and [facility]: cefepime 2g q8hr through 03/26, dapto 900mg daily through 03/26, PO vanc 125mg QID through 03/06 followed by daily through 04/02 Currently on Augmentin, continue. Continue probiotic Continue PO vancomycin daily until 04/02/2025 Gen surg jose carlos, recommends wound vac for SSI infection, f/u w/ [facility] team for left drain mx, f/u w/ [facility] Sx team on DC. Continue to monitor drainage and wound care WOCN on board, likely will need wound vac on dc and wound care f/u on dc. Ambulatory Dysfunction Chronic Pain Syndrome Patient with profound weakness in setting of recurrent hospitalizations and illness Ambulatory dysfunction made worse by neuropathic pain, nociceptive pain in back Prior attending discussed with sister 03/31, there was note of twit shira/myoclonus 03/30 and will not like for patient to continue oxycodone on discharge. She prefers the suboxone Continue suboxone on discharge to rehab Duloxetine stopped 03/31, pt reports some improvement in twitching as of 04/01 am exam. Continue increased dose of pregabalin History of PE: Originally dx on 01/03 and additional PE identified on 01/23. Continue Eliquis History of SVT During 02/23-03/06 admission at [facility] patient had two episodes of SVT requiring adenosine Evaluated by EP and Cardiology who increased metoprolol dose and recommended cl ose outpt follow up Continue metoprolol Chronic Normocytic anemia Thrombocytosis Got 1 pRBC Stage 1 sacral pressure ulcer WOCN consult Turn and reposition q2hr Chronic diastolic CHF Monitor volume status COPD Chronic, stable per patient Continue Trelegy inhaler History of GI bleed Continue pantoprazole CM working with family on getting a facility for dc. Once another facility is obtained, Patient will need all Meds represcribed to new facility Code status- Full DVT ppx- Eliquis Admission and Anticipated Discharge Date Admission Date: March 27, 2025 Subjective Patient was seen and examined at bedside. Patient was lying in bed, on room air, NAD, resting comfortably. Patient reports eating okay and moving bowels okay, denies nausea/ vomiting/abdominal pain. Physical Exam Physical Exam: Constitutional: Alert, nontoxic, slightly pale HEENT: Mucous membranes moist. Lungs: Clear to auscultation, decreased, no wheezes rales or rhonchi CV: S1-S2, regular Abdomen: Soft, nontender, nondistended, Clean dressing over anterior abd all in cision. Left lower flank drain in situ Extremities: trace ble edema Neuro: No focal deficits, General Weakness Psych: Cooperative, normal mood Results & Data Results & Data Vital Signs (Past 12 Hours) Vital Signs Temp Pulse Resp BP Pulse Ox O2 Del Method 04/01/25 12:39 36.5 C 102 H 16 128/73 95 Room Air 04/01/25 09:04 36.9 C 101 H 16 95/57 L 93 Room Air (10) Chronic obstructive pulmonary disease COPD type: COPD with acute exacerbation Qualified Code(s): J44.1 - Chronic obstructive pulmonary disease with (acute) exacerbation
[2025-04-02 06:08] LABS: Hematocrit (blood only) 26.5 % (42.0-52.0); Hemoglobin 7.9 g/dl (14.0-18.0); Mean Corpuscular Hemoglobin 29.8 pg (25.0-34.0); Mean Corpuscular Volume 100.0 fL (80.0-100.0); Platelet Count 701 K/uL (130-400); RDW Standard Deviation 62.3 fL (36.4-46.3); Red Blood Count 2.65 M/uL (4.70-6.10); White Blood Count 12.42 K/ul (4.8-10.8)
[2025-04-02 06:32] LABS: Anion Gap 8.0 (3-11); Calcium 9.7 mg/dl (8.6-10.3); Carbon Dioxide 24.0 mmol/L (21-32); Chloride 105.0 mmol/L (98-107); Potassium 4.8 mmol/L (3.5-5.1); Sodium 137.0 mmol/L (136-145)
[2025-04-02 06:38] LABS: Blood Urea Nitrogen 48.0 mg/dl (6-23); Creatinine Clr Calc Pharmacy 125.2 ml/min; Glucose 81.0 mg/dl (70-99(Fasting))
--- NOTE | 2025-04-02 11:28 | Hospitalist Progress Note ---
Date of Service April 02, 2025 Assessment & Plan (1) Sepsis: (2) Wound, open, abdominal wall, anterior with complication: (3) Electrolyte abnormality: (4) Iron deficiency anemia: (5) Reactive thrombocytosis: (6) Pressure injury of sacral region, stage 1: (7) Intra-abdominal abscess post-procedure: Plan: Drain placed by IR at [place] in flank (8) Chronic pain syndrome: (9) Peripheral neuropathy: (10) Chronic obstructive pulmonary disease: (11) History of Clostridioides difficile colitis: (12) Paroxysmal SVT (supraventricular tachycardia): Plan 59 year old male with PMH significant for nonocclusive CAD, PVD, HTN, HLD, COPD, 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 Refer to progress note of 03/28/25 for synopsis of recent hospitalizations at [facility] and [facility] from 10/2024 till 02/2025 and had procedures at [facility] Sepsis POA Superficial Surgical Wound Infection C diff colitis Severe Necrotizing Pancreatitis Likely secondary to ongoing intraabdominal infection Leukocytosis, tachycardia, tachypnea present on admission CT abdomen with regression of size of encapsulated fluid collection in mid abdo men; unchanged multiple encapsulated fluid collections; new finding of fat stranding with multiple air foci in anterior abdominal wall in umbilical region; interval resolution of moderate pericardial effusion; regression of bilateral pleural effusion; new finding of mild prominence of right pelvicalyceal system and ureter caused by inflammatory changes in retroperitoneum at L4-L5 level Recent abx at [facility] and [facility]: cefepime 2g q8hr through 03/26, dapto 900mg daily through 03/26, PO vanc 125mg QID through 03/06 followed by daily through 04/02 Currently on Augmentin, continue. Continue probiotic Continue PO vancomycin daily until 04/02/2025 Gen surg jose carlos, recommends wound vac for SSI infection, f/u w/ [facility] team for left drain mx, f/u w/ [facility] Sx team on DC. Continue to monitor drainage and wound care WOCN on board, likely will need wound vac on dc and wound care f/u on dc. Ambulatory Dysfunction Chronic Pain Syndrome Patient with profound weakness in setting of recurrent hospitalizations and illness Ambulatory dysfunction made worse by neuropathic pain, nociceptive pain in back Prior attending discussed with sister 03/31, there was note of twit shira/myoclonus 03/30 and will not like for patient to continue oxycodone on discharge. She prefers the suboxone Continue suboxone on discharge to rehab Duloxetine stopped 03/31, pt reports some improvement in twitching as of 04/01 am exam. Continue increased dose of pregabalin History of PE: Originally dx on 01/03 and additional PE identified on 01/23. Continue Eliquis History of SVT During 02/23-03/06 admission at [facility] patient had two episodes of SVT requiring adenosine Evaluated by EP and Cardiology who increased metoprolol dose and recommended cl ose outpt follow up Continue metoprolol Chronic Normocytic anemia Thrombocytosis Got 1 pRBC Stage 1 sacral pressure ulcer WOCN consult Turn and reposition q2hr Chronic diastolic CHF Monitor volume status COPD Chronic, stable per patient Continue Trelegy inhaler History of GI bleed Continue pantoprazole CM working with family on getting a facility for dc. Once another facility is obtained, Patient will need all Meds represcribed to new facility Code status- Full DVT ppx- Eliquis Admission and Anticipated Discharge Date Admission Date: March 27, 2025 Subjective Patient was seen and examined at bedside. Patient was lying in bed, on room air, NAD, resting comfortably. Patient reports eating okay and moving bowels today am, denies mango sea/vomiting/abdominal pain. Physical Exam Physical Exam: Constitutional: Alert, nontoxic, slightly pale HEENT: Mucous membranes moist. Lungs: Clear to auscultation, decreased, no wheezes rales or rhonchi CV: S1-S2, regular Abdomen: Soft, nontender, nondistended, Clean dressing over anterior abd all incision. Left lower flank drain in situ Extremities: trace ble edema (Lt > Rt) Neuro: No focal deficits, General Weakness Psych: Cooperative, normal mood Results & Data Results & Data Vital Signs (Past 12 Hours) Vital Signs Temp Pulse Resp BP Pulse Ox O2 Del Method 04/02/25 07:58 37.4 C 108 H 18 117/70 93 Room Air (10) Chronic obstructive pulmonary disease COPD type: COPD with acute exacerbation Qualified Code(s): J44.1 - Chronic obstructive pulmonary disease with (acute) exacerbation
[2025-04-03 11:11] LABS: Hematocrit (blood only) 22.3 % (42.0-52.0); Hemoglobin 7.0 g/dl (14.0-18.0); Mean Corpuscular Hemoglobin 30.6 pg (25.0-34.0); Mean Corpuscular Volume 97.4 fL (80.0-100.0); Platelet Count 629 K/uL (130-400); RDW Standard Deviation 60.5 fL (36.4-46.3); Red Blood Count 2.29 M/uL (4.70-6.10); White Blood Count 12.72 K/ul (4.8-10.8)
--- NOTE | 2025-04-03 11:11 | Surgery Progress Note ---
<Statement entered by Tai Rios DO - 04/03/25 16:57> I have seen and examined this patient with the surgical PA this a.m. I agree with this plan. Date of Service April 03, 2025 Assessment & Plan (1) Wound infection after surgery: Plan: asked to re-engage on patient for ongoing purulent and malodorous drainage from abdominal wound seen in conjunction with wound care this AM. plan to pack portion of wound that is tunneling w/ iodoform gauze wick, cover with aquacel and optifoam no surgical intervention deemed indicated at this time believe can consider local wound care and also engage infectious disease for assistance with antibiotic guidance Admission and Anticipated Discharge Date Admission Date: March 27, 2025 Subjective patient doing okay. some pain noted around wound Physical Exam Physical Exam: awake, no distress Gastrointestinal (Abdomen): + abdominal wound, hypergranulation tiss ue noted with a few open areas. in the hypergranulation tissue there is an area off to the L that tunnels ~1.5cm. both superior to this and to the left are two open wounds, currently not draining anything on our visit, but there is purulent malodorous discharge on the dressing that was removed. Results & Data Vital Signs (Past 12 Hours) Vital Signs Temp Pulse Resp BP Pulse Ox O2 Del Method 04/03/25 08:15 98.8 F 109 H 12 111/71 94 Room Air PG Care Time/CCT Total # of Minutes Spent Total Time Spent with Patient: Total time spent is greater than 50% in coordination of care (as documented) at patient's floor/unit and/or counseling patient: Coding Level of Care Code 10275 SUB INP/OBS CARE 10/15MIN Diagnoses Wound infection after surgery T81.49XA
--- NOTE | 2025-04-03 15:24 | Hospitalist Progress Note ---
Date of Service April 03, 2025 Assessment & Plan (1) Sepsis: (2) Wound, open, abdominal wall, anterior with complication: (3) Electrolyte abnormality: (4) Iron deficiency anemia: (5) Reactive thrombocytosis: (6) Pressure injury of sacral region, stage 1: (7) Intra-abdominal abscess post-procedure: Plan: Drain placed by IR at [place] in flank (8) Chronic pain syndrome: (9) Peripheral neuropathy: (10) Chronic obstructive pulmonary disease: (11) History of Clostridioides difficile colitis: (12) Paroxysmal SVT (supraventricular tachycardia): Plan 59 year old male with PMH significant for nonocclusive CAD, PVD, HTN, HLD, COPD, 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 Refer to progress note of 03/28/25 for synopsis of recent hospitalizations at [facility] [place] 10/2024 till 02/2025 and had procedures at [facility] Sepsis POA Superficial Surgical Wound Infection C diff colitis Severe Necrotizing Pancreatitis Likely secondary to ongoing intraabdominal infection Leukocytosis, tachycardia, tachypnea present on admission CT abdomen with regression of size of encapsulated fluid collection in mid abdo men; unchanged multiple encapsulated fluid collections; new finding of fat stranding with multiple air foci in anterior abdominal wall in umbilical region; interval resolution of moderate pericardial effusion; regression of bilateral pleural effusion; new finding of mild prominence of right pelvicalyceal system and ureter caused by inflammatory changes in retroperitoneum at L4-L5 level Recent abx at [facility]: cefepime 2g q8hr through 03/26, dapto 900mg daily through 03/26, PO vanc 125mg QID through 03/06 followed by daily through 04/02 Currently on Augmentin, continue. SSI w/ pus, not improving, consult ID. Continue probiotic Continued PO vancomycin daily until 04/02/2025 Gen surg evaled, recommends wound vac for SSI infection, f/u w/ [facility] team for left drain mx, f/u w/ [facility] Sx team on DC. continue local wound care and atb mx for now. Continue to monitor drainage and wound care WOCN on board, likely will need wound vac on dc and wound care f/u on dc. Ambulatory Dysfunction Chronic Pain Syndrome Patient with profound weakness in setting of recurrent hospitalizations and illness Ambulatory dysfunction made worse by neuropathic pain, nociceptive pain in back Prior attending discussed with sister 03/31, there was note of twitching/myoclonus 03/30 and will not like for patient to continue oxycodone on discharge. She prefers the suboxone Continue suboxone on discharge to rehab Duloxetine stopped 03/31, pt reports improvement in twitching. Continue increased dose of pregabalin History of PE: Originally dx on 01/03 and additional PE identified on 01/23. Continue Eliquis History of SVT During 02/23-03/[address] [facility] patient had two episodes of SVT requiring adenosine Evaluated by EP and Cardiology who increased metoprolol dose and recommended close outpt follow up Continue metoprolol Chronic Normocytic anemia Thrombocytosis Got 1 pRBC Stage 1 sacral pressure ulcer WOCN consult Turn and reposition q2hr Chronic diastolic CHF Monitor volume status COPD Chronic, stable per patient Continue Trelegy inhaler History of GI bleed Continue pantoprazole CM working with family on getting a facility for dc. Once another facility is obtained, Patient will need all Meds represcribed to new facility Code status- Full DVT ppx- Eliquis Admission and Anticipated Discharge Date Admission Date: March 27, 2025 Subjective Patient was seen and examined at bedside. Patient was lying in bed, on room air, NAD, resting comfortably. Patient reports eating okay and moving bowels ok, denies nausea/vomiting/abdominal pain. Malodorous drainage noted from abd wound, d/w gen sx, ok w/ local wound care and antibiotic mx, will consult ID. Physical Exam Physical Exam: Constitutional: Alert, nontoxic, slightly pale HEENT: Mucous membranes moist. Lungs: Clear to auscultation, decreased, no wheezes rales or rhonchi CV: S1-S2, regular Abdomen: Soft, nontender, nondistended, dressing over anterior abd all incision soaked w/ pus. Left lower flank drain in situ Extremities: trace ble edema (Lt > Rt) Neuro: No focal deficits, General Weakness Psych: Cooperative, normal mood Results & Data Results & Data Vital Signs (Past 12 Hours) Vital Signs Temp Pulse Pulse Resp BP Pulse Ox O2 Del Method 04/03/25 13:53 36.9 C 100 H 95 H 12 106/69 95 Room Air 04/03/25 13:26 36.9 C 100 H 87 12 99/64 L 95 Room Air 04/03/25 08:15 37.1 C 109 H 12 111/71 94 Room Air (10) Chronic obstructive pulmonary disease COPD type: COPD with acute exacerbation Qualified Code(s): J44.1 - Chronic obstructive pulmonary disease with (acute) exacerbation
[2025-04-04 06:09] LABS: Hematocrit (blood only) 22.6 % (42.0-52.0); Hemoglobin 6.9 g/dl (14.0-18.0); Mean Corpuscular Hemoglobin 29.9 pg (25.0-34.0); Mean Corpuscular Volume 97.8 fL (80.0-100.0); Platelet Count 615 K/uL (130-400); RDW Standard Deviation 60.5 fL (36.4-46.3); Red Blood Count 2.31 M/uL (4.70-6.10); White Blood Count 9.10 K/ul (4.8-10.8)
[2025-04-04 06:20] LABS: Anion Gap 7.0 (3-11); Blood Urea Nitrogen 45.0 mg/dl (6-23); Calcium 8.9 mg/dl (8.6-10.3); Carbon Dioxide 25.0 mmol/L (21-32); Chloride 107.0 mmol/L (98-107); Creatinine Clr Calc Pharmacy 112.4 ml/min; Glucose 88.0 mg/dl (70-99(Fasting)); Potassium 4.6 mmol/L (3.5-5.1); Sodium 139.0 mmol/L (136-145)
[2025-04-04] MEDS ORDERED: SODIUM CHLORIDE 0.9% 100 ML IV PRN (07:19)
[2025-04-04] MEDS: ACETAMINOPHEN 325 MG TAB PO ONE (08:23)
[2025-04-04 11:02] LABS: Hematocrit (blood only) 22.7 % (42.0-52.0); Hemoglobin 6.8 g/dl (14.0-18.0)
--- NOTE | 2025-04-04 15:23 | Hospitalist Progress Note ---
Date of Service April 04, 2025 Assessment & Plan (1) Sepsis: (2) Wound, open, abdominal wall, anterior with complication: (3) Electrolyte abnormality: (4) Iron deficiency anemia: (5) Reactive thrombocytosis: (6) Pressure injury of sacral region, stage 1: (7) Intra-abdominal abscess post-procedure: Plan: Drain placed by IR at [facility] in flank (8) Chronic pain syndrome: (9) Peripheral neuropathy: (10) Chronic obstructive pulmonary disease: (11) History of Clostridioides difficile colitis: (12) Paroxysmal SVT (supraventricular tachycardia): Plan 59 year old male with PMH significant for nonocclusive CAD, PVD, HTN, HLD, COPD, 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 Refer to progress note of 03/28/25 for synopsis of recent hospitalizations at [facility] and [facility] from 10/2024 till 02/2025 and had procedures at [facility] Sepsis POA Superficial Surgical Wound Infection C diff colitis Severe Necrotizing Pancreatitis Likely secondary to ongoing intraabdominal infection Leukocytosis, tachycardia, tachypnea present on admission CT abdomen with regression of size of encapsulated fluid collection in mid abdo men; unchanged multiple encapsulated fluid collections; new finding of fat stranding with multiple air foci in anterior abdominal wall in umbilical region; interval resolution of moderate pericardial effusion; regression of bilateral pleural effusion; new finding of mild prominence of right pelvicalyceal system and ureter caused by inflammatory changes in retroperitoneum at L4-L5 level Recent abx at [facility] and [facility]: cefepime 2g q8hr through 03/26, dapto 900mg daily through 03/26, PO vanc 125mg QID through 03/06 followed by daily through 04/02 Currently on Augmentin, continue. SSI w/ clean dressing today ID eval pending to help w/ antibiotic mx. Continue probiotic s/p PO vancomycin daily until 04/02/2025 Gen surg evaled, recommends wound vac for SSI infection, f/u w/ [facility] team for left drain mx, f/u w/ [facility] Sx team on DC. continue local wound care and atb mx for now as of 04/03 re-eval Continue to monitor drainage and wound care WOCN on board, likely will need wound vac on dc and wound care f/u on dc. Ambulatory Dysfunction Chronic Pain Syndrome Patient with profound weakness in setting of recurrent hospitalizations and illness Ambulatory dysfunction made worse by neuropathic pain, nociceptive pain in back Prior attending discussed with sister 03/31, there was note of twitching/myoclonus 03/30 and will not like for patient to continue oxycodone on discharge. She prefers the suboxone Continue suboxone on discharge to rehab Duloxetine stopped 03/31, pt reports improvement in twitching. Continue increased dose of pregabalin History of PE: Originally dx on 01/03 and additional PE identified on 01/23. Continue Eliquis History of SVT During 02/23-03/06 admission at [facility] patient had two episodes of SVT requiring adenosine Evaluated by EP and Cardiology who increased metoprolol dose and recommended close outpt follow up Continue metoprolol Chronic Normocytic anemia Thrombocytosis Got 1 pRBC, Hb again below 7 on 04/04, transfuse 1 more unit prbc, get fobt. monitor HnH closely. Stage 1 sacral pressure ulcer WOCN consult Turn and reposition q2hr Chronic diastolic CHF Monitor volume status COPD Chronic, stable per patient Continue Trelegy inhaler History of GI bleed Continue pantoprazole CM working with family on getting a facility for dc. Once another facility is obtained, Patient will need all Meds represcribed to new facility Pt's sister Annita given phone call, she states she is aware of poor prognosis and he has been getting sicker since october. she would like palliative care involved. Updated her, answered all her questions and she voiced understanding. Code status- Full DVT ppx- Eliquis Admission and Anticipated Discharge Date Admission Date: March 27, 2025 Subjective Patient was seen and examined at bedside. Patient was lying in bed, on room air, NAD, resting comfortably. Patient reports eating okay and moving bowels ok, denies nausea/vomiting/abdominal pain. Has pain at SSI when coughing per pt. abd wound w/ dressing. Physical Exam Physical Exam: Constitutional: Alert, nontoxic, slightly pale HEENT: Mucous membranes moist. Lungs: Clear to auscultation, decreased, no wheezes rales or rhonchi CV: S1-S2, regular Abdomen: Soft, nontender, nondistended, dressing over anterior abd all incision c/d/i. Left lower flank drain in situ Extremities: trace ble edema (Lt > Rt) Neuro: No focal deficits, General Weakness Psych: Cooperative, normal mood Results & Data Results & Data Vital Signs (Past 12 Hours) Vital Signs Temp Pulse Pulse Resp BP BP Pulse Ox 04/04/25 14:38 105 H 18 104/64 95 04/04/25 13:53 36.8 C 108 H 18 108/69 95 04/04/25 12:53 107 H 18 94/56 L 94 04/04/25 12:23 36.9 C 109 H 20 106/68 94 04/04/25 12:08 107 H 20 101/62 93 04/04/25 11:49 36.9 C 102 H 20 92/54 L 93 04/04/25 07:17 37.8 C H 105 H 16 108/66 92 O2 Del Method 04/04/25 14:38 04/04/25 13:53 04/04/25 12:53 04/04/25 12:23 04/04/25 12:08 04/04/25 11:49 04/04/25 07:17 Room Air (10) Chronic obstructive pulmonary disease COPD type: COPD with acute exacerbation Qualified Code(s): J44.1 - Chronic obstructive pulmonary disease with (acute) exacerbation
[2025-04-04 16:13] LABS: Hematocrit (blood only) 23.8 % (42.0-52.0); Hemoglobin 7.3 g/dl (14.0-18.0)
[2025-04-04 21:42] LABS: Hematocrit (blood only) 26.5 % (42.0-52.0); Hemoglobin 8.3 g/dl (14.0-18.0)
[2025-04-04] MEDS: MELATONIN 3 MG TAB PO SCH (22:55)
[2025-04-05 06:38] LABS: Hematocrit (blood only) 23.7 % (42.0-52.0); Hemoglobin 7.6 g/dl (14.0-18.0); Mean Corpuscular Hemoglobin 30.8 pg (25.0-34.0); Mean Corpuscular Volume 96.0 fL (80.0-100.0); Platelet Count 570 K/uL (130-400); RDW Standard Deviation 62.2 fL (36.4-46.3); Red Blood Count 2.47 M/uL (4.70-6.10); White Blood Count 11.26 K/ul (4.8-10.8)
[2025-04-05 07:02] LABS: Anion Gap 9.0 (3-11); Blood Urea Nitrogen 37.0 mg/dl (6-23); Calcium 9.0 mg/dl (8.6-10.3); Carbon Dioxide 25.0 mmol/L (21-32); Chloride 106.0 mmol/L (98-107); Creatinine Clr Calc Pharmacy 112.4 ml/min; Glucose 89.0 mg/dl (70-99(Fasting)); Magnesium 1.4 mg/dl (1.7-2.4); Potassium 4.3 mmol/L (3.5-5.1); Sodium 140.0 mmol/L (136-145)
[2025-04-05] MEDS: MAGNESIUM SULFATE / D5W 1 GM/100 ML BAG IV SCH (09:23)
--- NOTE | 2025-04-05 11:03 | Surgery Progress Note ---
<Statement entered by Tai Rios, - 04/05/25 15:09> I have seen and examined this patient with the surgical CHANGE MANAGEMENT ADMINISTRATOR and I agree with this plan Date of Service April 05, 2025 Assessment & Plan (1) Wound, open, abdominal wall, anterior with complication: Plan: pt seen at bedside with wound care nurse and Dr Rios will recommend BID dressing changes see wound care note for recommendations no surgical interventions or debridement planned will follow from peripheral call with questions/concerns Admission and Anticipated Discharge Date Admission Date: March 27, 2025 Subjective pt with abdominal wound, resting in bed Review of Systems Integumentary: + wounds Physical Exam Constitutional: cooperative; no acute distress Respiratory: normal respiratory effort; no respiratory distress Gastrointestinal (Abdomen): Inspection/Auscultation: + abdominal surgical scar Skin: + wound (abdominal wound ) Results & Data Vital Signs (Past 12 Hours) Vital Signs Temp Pulse Resp BP Pulse Ox O2 Del Method 04/05/25 10:30 Room Air 04/05/25 07:29 99.0 F 107 H 17 133/79 91 Room Air 04/05/25 00:07 113 H PG Care Time/CCT Total # of Minutes Spent Total Time Spent with Patient: Total time spent is greater than 50% in coordination of care (as documented) at patient's floor/unit and/or counseling patient: Coding Level of Care Code 35262 SUB INP/OBS CARE 10/15MIN Diagnoses Wound, open, abdominal wall, anterior with complication S31.109A
--- NOTE | 2025-04-05 14:14 | Hospitalist Progress Note ---
Date of Service April 05, 2025 Assessment & Plan (1) Sepsis: (2) Wound, open, abdominal wall, anterior with complication: (3) Electrolyte abnormality: (4) Iron deficiency anemia: (5) Reactive thrombocytosis: (6) Pressure injury of sacral region, stage 1: (7) Intra-abdominal abscess post-procedure: Plan: Drain placed by IR at [facility] in flank (8) Chronic pain syndrome: (9) Peripheral neuropathy: (10) Chronic obstructive pulmonary disease: (11) History of Clostridioides difficile colitis: (12) Paroxysmal SVT (supraventricular tachycardia): Plan 59 year old male with PMH significant for nonocclusive CAD, PVD, HTN, HLD, COPD, 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 Refer to progress note of 03/28/25 for synopsis of recent hospitalizations at [facility] and [facility] [place] from 10/2024 till 02/2025 and had procedures at [facility] [place] Sepsis POA Superficial Surgical Wound Infection C diff colitis Severe Necrotizing Pancreatitis Likely secondary to ongoing intraabdominal infection Leukocytosis, tachycardia, tachypnea present on admission CT abdomen with regression of size of encapsulated fluid collection in mid abdo men; unchanged multiple encapsulated fluid collections; new finding of fat stranding with multiple air foci in anterior abdominal wall in umbilical region; interval resolution of moderate pericardial effusion; regression of bilateral pleural effusion; new finding of mild prominence of right pelvicalyceal system and ureter caused by inflammatory changes in retroperitoneum at L4-L5 level Recent abx at [facility] [place] and [facility]: cefepime 2g q8hr through 03/26, dapto 900mg daily through 03/26, PO vanc 125mg QID through 03/06 followed by daily through 04/02 Currently on Augmentin, continue. SSI w/ clean dressing today ID eval pending to help w/ antibiotic mx. Continue probiotic s/p PO vancomycin daily until 04/02/2025 Gen surg evaled, recommends BID dressing changes, f/u w/ [facility] team for left drain mx, f/u w/ [facility] Sx team on DC. continue local wound care and atb mx for now as of 04/05 re-eval Continue to monitor drainage and wound care WOCN on board, likely will need wound vac on dc and wound care f/u on dc. Ambulatory Dysfunction Chronic Pain Syndrome Patient with profound weakness in setting of recurrent hospitalizations and illness Ambulatory dysfunction made worse by neuropathic pain, nociceptive pain in back Prior attending discussed with sister 03/31, there was note of twitching/myoclonus 03/30 and will not like for patient to continue oxycodone on discharge. She prefers the suboxone Continue suboxone on discharge to rehab Duloxetine stopped 03/31, pt reports improvement in twitching. Continue increased dose of pregabalin History of PE: Originally dx on 01/03 and additional PE identified on 01/23. Continue Eliquis History of SVT During 02/23-03/06 admission at [facility] [place] patient had two episodes of SVT requiring adenosine Evaluated by EP and Cardiology who increased metoprolol dose and recommended close outpt follow up Continue metoprolol Chronic Normocytic anemia Thrombocytosis Got 1 pRBC, Hb again below 7 on 04/04, transfuse 1 more unit prbc, get fobt. monitor HnH closely. Stage 1 sacral pressure ulcer WOCN consult Turn and reposition q2hr Chronic diastolic CHF Monitor volume status COPD Chronic, stable per patient Continue Trelegy inhaler History of GI bleed Continue pantoprazole CM working with family on getting a facility for dc. Once another facility is obtained, Patient will need all Meds represcribed to new facility Pt's sister Annita given phone call 04/04, she states she is aware of poor prognosis and he has been getting sicker since october. she would like palliative care involved. Pt agreeable to palliative care involvement as well. Updated her, answered all her questions and she voiced understanding. Dr Tomlin has been requested for palliative eval. Code status- Full DVT ppx- Eliquis Admission and Anticipated Discharge Date Admission Date: March 27, 2025 Subjective Patient was seen and examined at bedside. Patient was lying in bed, on room air, NAD, resting comfortably. Patient reports eating okay and moving bowels ok, denies nausea/vomiting/abdominal pain. Has pain at SSI when coughing per pt. Reports sleeping well last night. abd wound w/ dressing. Physical Exam Physical Exam: Constitutional: Alert, nontoxic, slightly pale HEENT: Mucous membranes moist. Lungs: Clear to auscultation, decreased, no wheezes rales or rhonchi CV: S1-S2, regular Abdomen: Soft, nontender, nondistended, dressing over anterior abd all incision w/ minimal soakage. Left lower flank drain in situ Extremities: trace ble edema (Lt > Rt) Neuro: No focal deficits, General Weakness Psych: Cooperative, normal mood Results & Data Results & Data Vital Signs (Past 12 Hours) Vital Signs Temp Pulse Pulse Resp BP Pulse Ox O2 Del Method 04/05/25 14:05 36.7 C 103 H 16 105/70 91 Room Air 04/05/25 12:13 36.7 C 105 H 15 138/84 96 Room Air 04/05/25 10:30 Room Air 04/05/25 07:29 37.2 C 107 H 17 133/79 91 Room Air (10) Chronic obstructive pulmonary disease COPD type: COPD with acute exacerbation Qualified Code(s): J44.1 - Chronic obstructive pulmonary disease with (acute) exacerbation
--- NOTE | 2025-04-05 16:22 | Communication Note ---
Palliative Care Note Patient seen and examined at bedside. Patient well known to this provider. Patient doing ok today. States that he is having some left leg pain and lower abdominal pain. Pain feels sharp, relieved by suboxone. Feels suboxone works well but gets myoclonic jerks with them. Advanced Care Plannin minutes spent discussing goals and values with gail ojeda. Discussed ongoing severe illness including very complex complications from pancreatitis, drain placements, and ongoing wound infections. Discussed that given all of this, there is concern that his prognosis in medium and intermission coordinator is likely poor. DIscussed that he may spend the rest of his life in and out of the hospital, and he states he agrees that he is concerned about this. Discussed code status at length, risks and benefits discussed. He states that his thoughts on code status are the same as prior conversation (see my prior note from a few admissions ago). He states he wants to do whatever he can to continue treating his illnesses, but does not want to suffer at end of life, and would not want to be intubated or have chest compressions as he is unlikely to survive these interventions. Based on his goals and values, I agree that DNRDNI is approprirate while considering all other interventions as needed. Patient is DNRDNI at this time. Gen: A&O 3 NAD, significant sarcopenia noted -20 kg weight loss in 6 months HEENT: NCAT, EOMI, not icteric. External ears normal. No rhinorrhea. Moist mucous membranes. Neck: Supple, full range of motion, no observable masses, No meningeal sign. Lungs: No Respiratory distress. CV: tachcyardic, regular rhythm Abdomen: Soft, mild diffuse tenderness to palpation worst in lower abdomen, ongoing wound site infection in periumbilical region MSK: left leg edema Skin: No rashes, petechiae, lesions. Normal color per patient. Neuro: Normal Gait, Grossly intact. Psych: Appropriate for situation. Assessment/Plan: #Advanced Care Planning #Sepsis #Intraabdominal Abscess #Wound Infection #Complex Necrotizing Pancreatitis Sequelae -patients prognosis is likely limited given current trajectory, likely on scale of months to 1-2 years, likely more on months side given trajectory, unless clinical scenario drastically changes and patient has aggressive rehabilitation -ECOG 3, very poor nutritional status -discussed code status with patient, DNRDNI Plan: -code status changed in chart to DNRDNI to reflect patient wishes -if transfer is advised back to site of surgery, would be in line with patient wishes and would agree with transfer -recommend palliative care follow up outpatient #Chronic Pain Syndrome #Nociceptive Pain -patient has chronic pain from significant intraabdominal surgeries -pain is primarily nociceptive in nature -also has left leg swelling acutely causing worsening nociceptive/neuropathic pain Plan: -would continue suboxone, change to q6hr prn, as it is effective for his pain -continue pregablin 100 tid -pain options are limited by myoclonus bleeding risk -if pain worsens, could consider starting 5 day course of decadron 4mg daily -other consideration would be trial of clonidine at nightime I will continue to follow.
[2025-04-06 07:20] LABS: Hematocrit (blood only) 28.8 % (42.0-52.0); Hemoglobin 9.0 g/dl (14.0-18.0); Mean Corpuscular Hemoglobin 30.3 pg (25.0-34.0); Mean Corpuscular Volume 97.0 fL (80.0-100.0); Platelet Count 568 K/uL (130-400); RDW Standard Deviation 62.6 fL (36.4-46.3); Red Blood Count 2.97 M/uL (4.70-6.10); White Blood Count 13.31 K/ul (4.8-10.8)
[2025-04-06] MEDS: BUPRENORPHINE/NALOXONE 2/0.5MG TAB SL PRN (09:29)
--- NOTE | 2025-04-06 15:48 | Hospitalist Progress Note ---
Date of Service April 06, 2025 Assessment & Plan (1) Sepsis: (2) Wound, open, abdominal wall, anterior with complication: (3) Electrolyte abnormality: (4) Iron deficiency anemia: (5) Reactive thrombocytosis: (6) Pressure injury of sacral region, stage 1: (7) Intra-abdominal abscess post-procedure: Plan: Drain placed by IR at [facility] in flank (8) Chronic pain syndrome: (9) Peripheral neuropathy: (10) Chronic obstructive pulmonary disease: (11) History of Clostridioides difficile colitis: (12) Paroxysmal SVT (supraventricular tachycardia): Plan 59 year old male with PMH significant for nonocclusive CAD, PVD, HTN, HLD, COPD, 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 Refer to progress note of 03/28/25 for synopsis of recent hospitalizations at [facility] and [facility] from 10/2024 till 02/2025 and had procedures at [facility] [place] Sepsis POA Superficial Surgical Wound Infection C diff colitis Severe Necrotizing Pancreatitis Likely secondary to ongoing intraabdominal infection Leukocytosis, tachycardia, tachypnea present on admission CT abdomen with regression of size of encapsulated fluid collection in mid abdo men; unchanged multiple encapsulated fluid collections; new finding of fat stranding with multiple air foci in anterior abdominal wall in umbilical region; interval resolution of moderate pericardial effusion; regression of bilateral pleural effusion; new finding of mild prominence of right pelvicalyceal system and ureter caused by inflammatory changes in retroperitoneum at L4-L5 level Recent abx at [facility] and [facility]: cefepime 2g q8hr through 03/26, dapto 900mg daily through 03/26, PO vanc 125mg QID through 03/06 followed by daily through 04/02 Currently on Augmentin, continue. SSI w/ clean dressing today ID eval pending to help w/ antibiotic mx. Continue probiotic s/p PO vancomycin daily until 04/02/2025 Gen surg evaled, recommends BID dressing changes, f/u w/ [facility] team for left drain mx, f/u w/ [facility]x team on DC. continue local wound care and atb mx for now as of 04/05 re-eval Continue to monitor drainage and wound care WOCN on board, likely will need wound vac on dc and wound care f/u on dc. Ambulatory Dysfunction Chronic Pain Syndrome Patient with profound weakness in setting of recurrent hospitalizations and illness Ambulatory dysfunction made worse by neuropathic pain, nociceptive pain in back Prior attending discussed with sister 03/31, there was note of twitching/myoclonus 03/30 and will not like for patient to continue oxycodone on discharge. She prefers the suboxone Continue suboxone on discharge to rehab Duloxetine stopped 03/31, pt reports improvement in twitching. Continue increased dose of pregabalin History of PE: Originally dx on 01/03 and additional PE identified on 01/23. Continue Eliquis History of SVT During 02/23-03/06 admission at [facility] patient had two episodes of SVT requiring adenosine Evaluated by EP and Cardiology who increased metoprolol dose and recommended close outpt follow up Continue metoprolol Chronic Normocytic anemia Thrombocytosis Got 1 pRBC, Hb again below 7 on 04/04, transfuse 1 more unit prbc, get fobt. monitor HnH closely. Stage 1 sacral pressure ulcer WOCN consult Turn and reposition q2hr Chronic diastolic CHF Monitor volume status COPD Chronic, stable per patient Continue Trelegy inhaler History of GI bleed Continue pantoprazole GOC discussion: appreciate palliative eval 04/05, pain meds changes made. Pt is DNR/DNI. CM working with family on getting a facility for dc. Once another facility is obtained, Patient will need all Meds represcribed to new facility Pt's sister Annita given phone call 04/04, she states she is aware of poor prognosis and he has been getting sicker since october. she would like palliative care involved. Pt agreeable to palliative care involvement as well. Updated her, answered all her questions and she voiced understanding. Dr Tomlin has been requested for palliative eval. Code status- dnr/dni DVT ppx- Eliquis Admission and Anticipated Discharge Date Admission Date: March 27, 2025 Subjective Patient was seen and examined at bedside. Patient was lying in bed, on room air, NAD, resting comfortably. Patient reports eating okay and moving bowels ok, denies nausea/vomiting/abdominal pain. Has pain at SSI when coughing per pt. Reports sleeping well last night. abd wound w/ dressing. Per d/w RN 04/05, ID has been notified of the consult. Physical Exam Physical Exam: Constitutional: Alert, nontoxic, slightly pale HEENT: Mucous membranes moist. Lungs: Clear to auscultation, decreased, no wheezes rales or rhonchi CV: S1-S2, regular Abdomen: Soft, nontender, nondistended, dressing over anterior abd all incision w/ no soakage. Left lower flank drain in situ Extremities: trace ble edema (Lt > Rt) Neuro: No focal deficits, General Weakness Psych: Cooperative, normal mood Results & Data Results & Data Vital Signs (Past 12 Hours) Vital Signs Temp Pulse Resp BP Pulse Ox O2 Del Method 04/06/25 14:54 36.8 C 102 H 16 112/63 96 Room Air 04/06/25 08:31 Room Air 04/06/25 07:56 37.4 C 109 H 16 123/76 92 Room Air (10) Chronic obstructive pulmonary disease COPD type: COPD with acute exacerbation Qualified Code(s): J44.1 - Chronic obstructive pulmonary disease with (acute) exacerbation
[2025-04-07 06:41] LABS: Hematocrit (blood only) 25.1 % (42.0-52.0); Hemoglobin 7.9 g/dl (14.0-18.0); Mean Corpuscular Hemoglobin 30.5 pg (25.0-34.0); Mean Corpuscular Volume 96.9 fL (80.0-100.0); Platelet Count 551 K/uL (130-400); RDW Standard Deviation 60.2 fL (36.4-46.3); Red Blood Count 2.59 M/uL (4.70-6.10); White Blood Count 11.69 K/ul (4.8-10.8)
--- NOTE | 2025-04-07 15:04 | Infectious Disease Consult ---
Date of Service April 07, 2025 Telehealth Information I performed this visit using a real-time telehealth connection between my location and the patients location ([facility]). After connecting through interactive tele-video, patient was identified by name and date of and/or wristband check.Patient (or authorized healthcare front desk representative) was informed that this was a telemedicine visit and it was being conducted confidentially over secure lines. My office door was closed and no one else was present in the room with me.Patient (or authorized healthcare front desk representative) provided consent to proceed with the visit, expressed an understanding of privacy and security of the telemedicine visit, and gave permission to have a hospital front desk representative in the room in order to assist with the visit and to conduct portions of the visit, as needed. I informed the patient (or authorized healthcare front desk representative) that I reviewed their record and presented the opportunity for them to ask any questions regarding the visit today. The patient agreed to participate. Assessment & Plan (1) Intra-abdominal abscess post-procedure: Plan: The imaging shows things to be relatively stable from outside CT at the end of February, but persistent infection, nonetheless. It is not clear, however, that he would benefit from further prolonged IV therapy. Parts of his intraabdominal and lumbar infection are clearly much improved overall. (2) History of Clostridioides difficile colitis: Plan: No active C diff disease at this point. (3) Wound, open, abdominal wall, anterior with complication: Plan: Open wound a concern, but does nto appear to be grossly infected based on review of photos. Plan 1. D/C amoxicillin-clavulanate 2. Linezolid 600mg po bid, cipro 500mg po bid and metronidazole 500mg po tid x [address] in 4 weeks 4. Continue aggressive wound care to abdominal wall Any clinical worsening should necessitate possible transfer to [facility]. History of Present Illness History of Present Illness Mr. Jimenez is seen today due to concerns about persistent intraabdominal infection. 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 He had a prolonged hospitalization at [facility] in [place] from November through January. He was then readmitted with intraabdominal abscesses. IR drainage showed K oxytoca and VRE. He was discharged on IV cefepime and daptomycin to extend through early March. A follow-up CT in late February showed marked improvement (though not resolution), and his PICC line was pulled. He was subsequently admitted to [facility] on 03/27/25 for worsening drainage from his abdominal wound. Since then he has been followed and had ongoing local wound care without any real intervention. No fevers. He is currently on Augmentin. Overall he feels about the same. He is tired and continues to have limited mobility. Pain control is still a concern. He is eating and having semi- regular BM. Mother is at the bedside and helps provide some input into his history. Allergies Allergy/AdvReac Type Severity Reaction Status Date / Time TONIA Inhibitors AdvReac Severe ALESSANDRO Verified 03/14/25 08:19 ARB-Angiotensin Receptor AdvReac Severe ALESSANDRO Verified 03/14/25 08:19 Antagonist prednisone AdvReac Mild "jitterines Verified 03/14/25 08:19 s" Home Medications Medication Instructions Recorded Confirmed Type L.acidop,casei,lactis,rham-B.lact,alicia 1 cap PO DAILY #30 caps 03/30/25 Rx 625 mg (10 billion cell) capsule (Advanced Probiotic) acetaminophen 500 mg tablet 1,000 mg (2 x 500 mg) PO TID #300 03/30/25 Rx (Tylenol Extra Strength) tabs albuterol sulfate 90 mcg/actuation 2 puff inhalation Q4 PRN sob or 03/30/25 Rx aerosol inhaler wheezing #8.5 grams amoxicillin 875 mg-potassium 1 tab PO BIDM #14 tabs 03/30/25 Rx clavulanate 125 mg tablet apixaban 5 mg tablet (Eliquis) 5 mg PO BID #60 tabs 03/30/25 Rx atorvastatin 80 mg tablet 80 mg PO DAILY #30 tabs 03/30/25 Rx fluticasone fur. 200 mcg-umeclid 1 inh inhalation DAILY #60 ea 03/30/25 Rx 62.5 mcg-vilant 25 mcg inhalat.powder (Trelegy Ellipta) folic acid 1 mg tablet 1 mg PO DAILY #30 tabs 03/30/25 Rx lidocaine 5 % topical patch 1 patch transdermal QAM #10 ea 03/30/25 Rx metoprolol succinate 25 mg 75 mg (3 x 25 mg) PO BID #60 tabs 03/30/25 Rx tablet,extended release 24 hr pantoprazole 40 mg tablet,delayed 40 mg PO DAILY #30 tabs 03/30/25 Rx release pregabalin 100 mg capsule (Lyrica) 100 mg PO TID #90 caps 03/30/25 Rx simethicone 80 mg chewable tablet 80 mg PO BID PRN Constipation #30 03/30/25 Rx tabs thiamine HCl (vitamin B1) 100 mg 100 mg PO DAILY #30 tabs 03/30/25 Rx tablet vancomycin 250 mg capsule 250 mg PO DAILY #14 caps 03/30/25 Rx buprenorphine 2 mg-naloxone 0.5 mg 1 tab sublingual Q4H PRN pain 03/31/25 Rx sublingual tablet (scale score 7-10) #10 tabs Patient History Medical History Splenic abscess SVT (supraventricular tachycardia) C. difficile colitis Hypertension controlled, stable per pt Tobacco use disorder Anemia Obesity (BMI 30.0-34.9) Alcohol use disorder Encounter for pre-operative examination Lab test negative for COVID-19 virus RSV (respiratory syncytial virus infection) Sleep disorder breathing Neurogenic claudication due to lumbar spinal stenosis Anemia Near syncope Hypotension Acute on chronic anemia Shortness of breath Pneumonia Transaminitis Respiratory failure requiring intubation Acute kidney failure Renal failure Atrial flutter with rapid ventricular response Nonobstructive atherosclerosis of coronary artery Volume overload Diastolic dysfunction Hypertensive heart disease Acute kidney injury (nontraumatic) Acute necrotizing pancreatitis Hemorrhagic shock Acute encephalopathy Pleural effusion due to pancreatitis Acute on chronic diastolic CHF (congestive heart failure) Sepsis due to pneumonia Hypoxia Hypoxia Anemia Pulmonary emboli Pedal edema Hemoptysis Left-sided epistaxis Right hip pain Osteonecrosis of both hips Necrotizing pancreatitis Heme positive stool On home oxygen therapy 2 LPM at HS Hepatic steatosis CAD (coronary artery disease) GERD (gastroesophageal reflux disease) controlled, stable per pt Kidney disease following with [facility] Nephrology. Plaque psoriasis Hx of seasonal allergies Spinal stenosis History of shingles 05/2022, PRN gabapentin for chronic right eye irritation/pain from shingles Surgical History History of exploratory laparotomy History of cardiac catheterization 02/2023 [facility]. no stents. History of back surgery lumbar > "bone spur shaving" Hx of arthroscopic knee surgery Left Hx of foot surgery Left Hx of inguinal hernia repair History of esophagogastroduodenoscopy (EGD) Family History Father Diabetes Social History Smoking Status: Former smoker Tobacco Type: Cigarettes Cigarettes Per Day: .5 pack a day; Second Hand Exposure: No; Do You Dip or Chew Tobacco: No; Hx Alcohol Use: No Hx Substance Use: No Preferred Language: Setswana Communication Ability: Effective Union Contract Representative Required: No Beliefs That Will Affect Care: None Current Living Situation: Family Current Living Situation Comment: Living with sister and brotherhood s/p discharge from [facility] 03/26/2025 Other Information That Helps Us Care for You: No Feels Safe at Home: Yes Safety Concerns: Feels Safe At This Time Assistive Devices: Walker and Wheelchair Review of Systems Gen- Feels weak HEENT- No ALTAMIRANO Resp- No SOB or cough CV- No chest pain GI- No N/V or diarrhea. Has some abdominal discomfort and ongoing wound drainage. - No dysuria MSK- No joint pain Skin- No rash Neuro- No focal deficits Physical Exam Gen- NAD, cooperative with exam HEENT- NC AT Resp- Normal effort on RA Abdominal wall-- open wounds evaluated. No cellulitis or tissue necrosis. MSK- No joint effusions Ext- no edema Skin- No rash Neuro -Alert and oriented Results & Data Vital Signs (Past 12 Hours) Vital Signs Temp Pulse Pulse Resp BP Pulse Ox O2 Del Method 04/07/25 14:37 36.8 C 70 18 93/59 L 94 Room Air 04/07/25 11:49 108 H 102/63 94 Room Air 04/07/25 11:31 36.5 C 110 H 17 93/56 L 91 Room Air 04/07/25 07:30 Room Air 04/07/25 07:21 37.5 C 72 15 112/69 92 Room Air Laboratory Results WBC 11.69 Hgb 7.9 Platelets 551 Creatinine 0.78 BUN 37 Lactate 1.2 Lipase 9 No positive micro studies from [facility] Micro studies from [facility] reviewed as per HPI Diagnostic Findings CT abdomen/pelvis from 03/27/25 reviewed by me: IMPRESSION: [id number]. Regression of size of encapsulated fluid collection in mid abdomen /[id number].5.1.2 left lumbar region measuring about 79x42 mm with multiple air foci within./OBX.5.1.2/OBX.5.1 2. Unchanged multiple encapsulated fluid collections involving the perisplenic, left paracolic spaces, and anterior to the abdominal aorta. 3. Interval resolution of collection in transverse mesocolon. 4. Unchanged multiple enlarged surrounding lymph nodes, ranging in size from 5-15 mm 5. New finding of fat stranding with multiple air foci in the anterior abdominal wall in the umbilical region. 6. Interval resolution of moderate pericardial effusion. 7. Minimal bilateral pleural effusion (regression). 8. New finding of mild prominence of right pelvicalyceal system and ureter caused by inflammatory changes in retroperitoneum at L4-L5 level. 9. A properly positioned infrarenal IVC filter. 10. A properly positioned left lumbar region drainage tube.
--- NOTE | 2025-04-07 16:08 | Hospitalist Progress Note ---
Date of Service April 07, 2025 Assessment & Plan (1) Sepsis: (2) Wound, open, abdominal wall, anterior with complication: (3) Electrolyte abnormality: (4) Iron deficiency anemia: (5) Reactive thrombocytosis: (6) Pressure injury of sacral region, stage 1: (7) Intra-abdominal abscess post-procedure: Plan: Drain placed by IR at [facility] in flank (8) Chronic pain syndrome: (9) Peripheral neuropathy: (10) Chronic obstructive pulmonary disease: (11) History of Clostridioides difficile colitis: (12) Paroxysmal SVT (supraventricular tachycardia): Plan 59 year old male with PMH significant for nonocclusive CAD, PVD, HTN, HLD, COPD, 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 Refer to progress note of 03/28/25 for synopsis of recent hospitalizations at [facility] and [facility] from 10/2024 till 02/2025 and had procedures at [facility] Sepsis POA Superficial Surgical Wound Infection C diff colitis Severe Necrotizing Pancreatitis Likely secondary to ongoing intraabdominal infection Leukocytosis, tachycardia, tachypnea present on admission CT abdomen with regression of size of encapsulated fluid collection in mid abdo men; unchanged multiple encapsulated fluid collections; new finding of fat stranding with multiple air foci in anterior abdominal wall in umbilical region; interval resolution of moderate pericardial effusion; regression of bilateral pleural effusion; new finding of mild prominence of right pelvicalyceal system and ureter caused by inflammatory changes in retroperitoneum at L4-L5 level Recent abx at [facility]: cefepime 2g q8hr through 03/26, dapto 900mg daily through 03/26, PO vanc 125mg QID through 03/06 followed by daily through 04/02 Currently on Augmentin, continue. SSI w/ dressing x minimal soakage ID eval pending to help w/ antibiotic mx. Continue probiotic s/p PO vancomycin daily until 04/02/2025 Gen surg evaled, recommends BID dressing changes, f/u w/ [facility] team for left drain mx, f/u w/ [facility] Sx team on DC. continue local wound care and atb mx for now as of 04/05 re-eval Continue to monitor drainage and wound care WOCN on board, likely will need wound vac on dc and wound care f/u on dc. Ambulatory Dysfunction Chronic Pain Syndrome Patient with profound weakness in setting of recurrent hospitalizations and illness Ambulatory dysfunction made worse by neuropathic pain, nociceptive pain in back Prior attending discussed with sister 03/31, there was note of twitching/myoclonus 03/30 and will not like for patient to continue oxycodone on discharge. She prefers the suboxone Continue suboxone on discharge to rehab Duloxetine stopped 03/31, pt reports improvement in twitching. Continue increased dose of pregabalin History of PE: Originally dx on 01/03 and additional PE identified on 01/23. Continue Eliquis History of SVT During 02/23-03/06 admission at [facility] patient had two episodes of SVT requiring adenosine Evaluated by EP and Cardiology who increased metoprolol dose and recommended close outpt follow up Continue metoprolol Chronic Normocytic anemia Thrombocytosis Got 1 pRBC, Hb again below 7 on 04/04, transfuse 1 more unit prbc, get fobt. monitor HnH closely. Stage 1 sacral pressure ulcer WOCN consult Turn and reposition q2hr Chronic diastolic CHF Monitor volume status COPD Chronic, stable per patient Continue Trelegy inhaler History of GI bleed Continue pantoprazole GOC discussion: appreciate palliative eval 04/05, pain meds changes made. Pt is DNR/DNI. CM working with family on getting a facility for dc. Once another facility is obtained, Patient will need all Meds represcribed to new facility Pt's sister Annita given phone call 04/04, she states she is aware of poor prognosis and he has been getting sicker since october. she would like palliative care involved. Pt agreeable to palliative care involvement as well. Updated her, answered all her questions and she voiced understanding. Dr Tomlin has been requested for palliative eval. Dispo once ID recs are in and once palliative eval is completed (? hospice discussion at discharge). Code status- dnr/dni DVT ppx- Eliquis Admission and Anticipated Discharge Date Admission Date: March 27, 2025 Subjective Patient was seen and examined at bedside. Patient was lying in bed, on room air, NAD, resting comfortably. Patient reports eating okay and moving bowels 2 d ago, would like bowel regimen, denies nausea/vomiting. Pt reports overall pain better today. abd wound w/ dressing. Physical Exam Physical Exam: Constitutional: Alert, nontoxic, slightly pale HEENT: Mucous membranes moist. Lungs: Clear to auscultation, decreased, no wheezes rales or rhonchi CV: S1-S2, regular Abdomen: Soft, nontender, nondistended, dressing over anterior abd all incision w/ minimal soakage. Left lower flank drain in situ Extremities: trace ble edema (Lt > Rt) Neuro: No focal deficits, General Weakness Psych: Cooperative, normal mood Results & Data Results & Data Vital Signs (Past 12 Hours) Vital Signs Temp Pulse Pulse Resp BP Pulse Ox O2 Del Method 04/07/25 15:46 95/60 L 04/07/25 14:37 36.8 C 70 18 93/59 L 94 Room Air 04/07/25 11:49 108 H 102/63 94 Room Air 04/07/25 11:31 36.5 C 110 H 17 93/56 L 91 Room Air 04/07/25 07:30 Room Air 04/07/25 07:21 37.5 C 72 15 112/69 92 Room Air (10) Chronic obstructive pulmonary disease COPD type: COPD with acute exacerbation Qualified Code(s): J44.1 - Chronic obstructive pulmonary disease with (acute) exacerbation
--- NOTE | 2025-04-07 17:12 | Communication Note ---
Discussed case at length with sister and patient. We will plan for a family meeting at 4pm tomorrow to discuss his current condition, clinical trajectory, and next steps. They were appreciative of the updates and care. Date of Service: April 07, 2025
[2025-04-07] MEDS: DOCUSATE SODIUM 100 MG CAP PO SCH (20:17)
[2025-04-07] MEDS: LINEZOLID 600 MG TAB PO SCH (20:23)
[2025-04-07] MEDS: metroNIDAZOLE 500 MG TAB PO SCH (20:23)
[2025-04-07] MEDS: CIPROFLOXACIN 500 MG TAB PO SCH (20:23)
[2025-04-08 06:22] LABS: Hematocrit (blood only) 25.0 % (42.0-52.0); Hemoglobin 7.8 g/dl (14.0-18.0); Mean Corpuscular Hemoglobin 30.4 pg (25.0-34.0); Mean Corpuscular Volume 97.3 fL (80.0-100.0); Platelet Count 581 K/uL (130-400); RDW Standard Deviation 61.2 fL (36.4-46.3); Red Blood Count 2.57 M/uL (4.70-6.10); White Blood Count 12.50 K/ul (4.8-10.8)
[2025-04-08 06:42] LABS: Anion Gap 8.0 (3-11); Blood Urea Nitrogen 27.0 mg/dl (6-23); Calcium 8.9 mg/dl (8.6-10.3); Carbon Dioxide 26.0 mmol/L (21-32); Chloride 104.0 mmol/L (98-107); Creatinine Clr Calc Pharmacy 118.5 ml/min; Glucose 91.0 mg/dl (70-99(Fasting)); Magnesium 1.5 mg/dl (1.7-2.4); Potassium 3.9 mmol/L (3.5-5.1); Sodium 138.0 mmol/L (136-145)
[2025-04-08] MEDS: POLYETHYLENE (MIRALAX) 17 GM PACK PO SCH (09:08)
[2025-04-08] MEDS: CHERRY SYRUP 5 ML UDP PO SCH (10:00)
[2025-04-08] MEDS: VANCOMYCIN HCL 125 MG/2.5ML SOLN PO SCH (10:01)
--- NOTE | 2025-04-08 13:52 | Hospitalist Progress Note ---
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 Refer to progress note of 03/28/25 for synopsis of recent hospitalizations at [facility] and [facility] from 10/2024 till 02/2025 and had procedures at [facility] Sepsis POA Superficial Surgical Wound Infection C diff colitis Severe Necrotizing Pancreatitis Likely secondary to ongoing intraabdominal infection Leukocytosis, tachycardia, tachypnea present on admission CT abdomen with regression of size of encapsulated fluid collection in mid abdomen; unchanged multiple encapsulated fluid collections; new finding of fat stranding with multiple air foci in anterior abdominal wall in umbilical region; interval resolution of moderate pericardial effusion; regression of bilateral pleural effusion; new finding of mild prominence of right pelvicalyceal system and ureter caused by inflammatory changes in retroperitoneum at L4-L5 level Recent abx at [facility] and [facility]: cefepime 2g q8hr through 03/26, dapto 900mg daily through 03/26, PO vanc 125mg QID through 03/06 followed by daily through 04/02 Infectious disease evaluated the patient on 04/07; recommended to be placed on ciprofloxacin, Flagyl and linezolid for total of 14 days; repeat CT scan in about 4 weeks. Possible transfer to [facility] if there is any clinical worsening. Gen surg evaled, recommends BID dressing changes, f/u w/ [facility] team for left drain mx, f/u w/ [facility] Sx team on DC. continue local wound care and atb mx for now as of 04/05 re-eval Continue to monitor drainage and wound care WOCN on board, Ambulatory Dysfunction Chronic Pain Syndrome Patient with profound weakness in setting of recurrent hospitalizations and illness Ambulatory dysfunction made worse by neuropathic pain, nociceptive pain in back Prior attending discussed with sister 03/31, there was note of twitching/myoclonus 03/30 and will not like for patient to continue oxycodone on discharge. She prefers the suboxone Continue suboxone on discharge to rehab Duloxetine stopped 03/31, pt reports improvement in twitching. Continue increased dose of pregabalin History of PE: Originally dx on 01/03 and additional PE identified on 01/23. Continue Eliquis History of SVT During 02/23-03/06 admission at [facility] patient had two episodes of SVT requiring adenosine Evaluated by EP and Cardiology who increased metoprolol dose and recommended close outpt follow up Continue metoprolol Chronic Normocytic anemia Thrombocytosis Got 1 pRBC, Hb again below 7 on 04/04, transfuse 1 more unit prbc, get fobt. monitor HnH closely. Stage 1 sacral pressure ulcer WOCN consult Turn and reposition q2hr Chronic diastolic CHF Monitor volume status COPD Chronic, stable per patient Continue Trelegy inhaler History of GI bleed Continue pantoprazole GOC discussion: appreciate palliative eval 04/05, pain meds changes made. Pt is DNR/DNI. Code status- dnr/dni DVT ppx- Eliquis Time spent evaluating patient, direct bedside care, chart review, placing orders, interpretation of diagnostic studies, discussion with consultants, patient, and family members, as well as other required patient management activities is 50 minutes Please note the above document was generated using voice recognition software. It may contain grammatical, syntax or spelling errors. Any formal questions or concerns about the content, text or information contained within the body of this dictation should be directly addressed to the provider for clarification Admission and Anticipated Discharge Date Admission Date: March 27, 2025 Subjective Patient seen and examined at bedside. Is sitting up on the bed; not in distress. Reports that he is feeling much better compared to previous days. Able to tolerate diet well as well Review of Systems Review of Systems: All systems reviewed & are unremarkable except as noted in Subjective Physical Exam Physical Exam: Constitutional: Alert, nontoxic, slightly pale HEENT: Mucous membranes moist. Lungs: Clear to auscultation, decreased, no wheezes rales or rhonchi CV: S1-S2, regular Abdomen: Soft, nontender, nondistended, dressing over anterior abd all incision- C/D/I. Left lower flank drain in situ Extremities: trace ble edema (Lt > Rt) Neuro: No focal deficits, General Weakness Psych: Cooperative, normal mood Results & Data Results & Data Vital Signs (Past 12 Hours) Vital Signs Temp Pulse Resp BP Pulse Ox O2 Del Method 04/08/25 11:50 96 H 04/08/25 08:01 37 C 107 H 16 99/59 L 93 Room Air (10) Chronic obstructive pulmonary disease COPD type: COPD with acute exacerbation Qualified Code(s): J44.1 - Chronic obstructive pulmonary disease with (acute) exacerbation
[2025-04-08] MEDS: SODIUM CHLORIDE 0.9% 500 ML IV ONE (15:55)
--- NOTE | 2025-04-08 16:56 | Advance Care Plan Prog Note ---
Advanced Care Planning Note Date of Discussion April 08, 2025 ACP Discussion Diagnoses requiring ACP discussion: [necrotizing pancreatitis, sepsis, wound infections, c. diff colitis] A [id number] discussion with the [patient, sisters, brother] regarding the patient's advanced care planning took place during this hospitalization on the above date. The discussion included the explanation and discussion of advance directives and associated forms/documents, as well as the patient's current code status. We also discussed at length the patient's medical conditions (both acute and chronic), general prognosis, treatment options, and goals of care. The following summarizes the discussion: Started discussion by bringing everyone up to speed on clinical situation. Patient is a chronically ill, stable patient with necrotizing pancreatitis c/b wound infections, sepsis, C. diff colitis, severe sarcopenia, hx of PE, chronic pain syndrome, sacral ulcers with 5 months worth of hospitalizations and readmissions. Discussed his prognosis potentially being a series of repeat hospitalizations if he does not get better, possibly with a prognosis of months to years vs. if everything goes correctly with aggressive rehabilitation undetermined prognosis. His goal is to go home and live indepdently, and spend time in the wild. We discussed that this is not a likely outcome in the short and medium term given his chronically ill condition and severe debilitation. We discussed that the only way he could go home now would be on hospice. Discussed hospice at length, risks and benefits discussed. Since going home is not an option as he does not have 24/7 caregivers, we discussed going to SNF to get stronger and if he does not want to come back to the hospital if he gets sicker again they can engage hospice services there. Him and family feel this is a good plan. Assessment and plan listed below. Assessment/Plan: #Advanced Care Planning #Chronic Pain Syndrome -patient would like to be DNRDNI at this time -plan is as follows for dispo, discussed with primary team: transfer to [facility] when medically ready (discussed with case management and primary team, potentially Thursday), engage hospice services if he declines and does not want to come back to hospital -for pain: stop suboxone ([facility] will not accept), start dilaudid 2mg q4hr prn -calculation: on average tablets of suboxone per day, 120 MME total/2 for new med dose reduction=60MME/6 for q4hrs prn=10MME/4 for dilaudid conversion=2mg PO dilaudid Status Resuscitation Status DNR/DNI No Resuscitation Total Time I spent a total of [45] minutes was spent on this discussion, including counseling, answering questions, and completing, if any, pertinent advanced care planning forms/documents.
[2025-04-09 05:45] LABS: Hematocrit (blood only) 24.3 % (42.0-52.0); Hemoglobin 7.6 g/dl (14.0-18.0); Immature Granulocytes # (auto) 0.11 K/uL (0.01-0.20); Immature Granulocytes % (auto) 0.8 %; Mean Corpuscular Hemoglobin 30.5 pg (25.0-34.0); Mean Corpuscular Volume 97.6 fL (80.0-100.0); Platelet Count 621 K/uL (130-400); RDW Standard Deviation 60.6 fL (36.4-46.3); Red Blood Count 2.49 M/uL (4.70-6.10); White Blood Count 13.29 K/ul (4.8-10.8)
[2025-04-09 06:02] LABS: Anion Gap 7.0 (3-11); Blood Urea Nitrogen 23.0 mg/dl (6-23); Calcium 8.8 mg/dl (8.6-10.3); Carbon Dioxide 26.0 mmol/L (21-32); Chloride 105.0 mmol/L (98-107); Creatinine Clr Calc Pharmacy 116.9 ml/min; Glucose 92.0 mg/dl (70-99(Fasting)); Potassium 3.7 mmol/L (3.5-5.1); Sodium 138.0 mmol/L (136-145)
[2025-04-09 06:34] LABS: Polychromasia 1+
--- NOTE | 2025-04-09 07:47 | Gastrointestinal Consultation ---
Date of Consultation April 09, 2025 Assessment & Plan (1) Iron deficiency anemia: Pleasant, unfortunate man who has been through a lot medically and surgically over the past 6-7 months. I am asked to see him for anemia and hemoccult positive stools. I am not surprised his stools show occult blood with the stress of the last seven months. He certainly could have stress gastritis and he is on pantoprazole so that should cover any issues with that. He has recently had an EGD and a colonoscopy so I don't think we should repeat these unless he develops clinically active bleeding. He is currently having brown stools according to chart. He also has a lot of reasons for anemia most likely chronic disease again with his clinical course over the past several months. He could also have intraabdominal bleeding although he doesn't appear to have that by exam. For now I would just observe him and intervene only for clinically evident GI bleeding. History of Present Illness Reason for Consultation: anemia, heme (+) Attending Physician: Antelmo Toussaint MD History of Present Illness 59 year old man with complex and extensive GI history over the calendar year of 2024 revolving around necrotizing pancreatitis and infections. He has been noted to be anemic and hemoccult positive while in the hospital. The patient, although alert, can provide no helpful history. He says he hasn't seen his bowel movements in several months so he doesn't know if he is passing any blood. Documentation of his stools show they were "brown and formed" yesterday. Patient doesn't have a lot of complaints about his stomach at my visit. He had an EGD and a colonoscopy in September of 2024 that showed an esophageal ulcer and several polyps. Allergies Allergy/AdvReac Type Severity Reaction Status Date / Time TONIA Inhibitors AdvReac Severe ALESSANDRO Verified 03/14/25 08:19 ARB-Angiotensin Receptor AdvReac Severe ALESSANDRO Verified 03/14/25 08:19 Antagonist prednisone AdvReac Mild "jitterines Verified 03/14/25 08:19 s" Home Medications Medication Instructions Recorded Confirmed Type L.acidop,casei,lactis,rham-B.lact,alicia 1 cap PO DAILY #30 caps 03/30/25 Rx 625 mg (10 billion cell) capsule (Advanced Probiotic) acetaminophen 500 mg tablet 1,000 mg (2 x 500 mg) PO TID #300 03/30/25 Rx (Tylenol Extra Strength) tabs albuterol sulfate 90 mcg/actuation 2 puff inhalation Q4 PRN sob or 03/30/25 Rx aerosol inhaler wheezing #8.5 grams amoxicillin 875 mg-potassium 1 tab PO BIDM #14 tabs 03/30/25 Rx clavulanate 125 mg tablet apixaban 5 mg tablet (Eliquis) 5 mg PO BID #60 tabs 03/30/25 Rx atorvastatin 80 mg tablet 80 mg PO DAILY #30 tabs 03/30/25 Rx fluticasone fur. 200 mcg-umeclid 1 inh inhalation DAILY #60 ea 03/30/25 Rx 62.5 mcg-vilant 25 mcg inhalat.powder (Trelegy Ellipta) folic acid 1 mg tablet 1 mg PO DAILY #30 tabs 03/30/25 Rx lidocaine 5 % topical patch 1 patch transdermal QAM #10 ea 03/30/25 Rx metoprolol succinate 25 mg 75 mg (3 x 25 mg) PO BID #60 tabs 03/30/25 Rx tablet,extended release 24 hr pantoprazole 40 mg tablet,delayed 40 mg PO DAILY #30 tabs 03/30/25 Rx release pregabalin 100 mg capsule (Lyrica) 100 mg PO TID #90 caps 03/30/25 Rx simethicone 80 mg chewable tablet 80 mg PO BID PRN Constipation #30 03/30/25 Rx tabs thiamine HCl (vitamin B1) 100 mg 100 mg PO DAILY #30 tabs 03/30/25 Rx tablet vancomycin 250 mg capsule 250 mg PO DAILY #14 caps 03/30/25 Rx buprenorphine 2 mg-naloxone 0.5 mg 1 tab sublingual Q4H PRN pain 03/31/25 Rx sublingual tablet (scale score 7-10) #10 tabs Patient History Medical History Splenic abscess SVT (supraventricular tachycardia) C. difficile colitis Hypertension controlled, stable per pt Tobacco use disorder Anemia Obesity (BMI 30.0-34.9) Alcohol use disorder Encounter for pre-operative examination Lab test negative for COVID-19 virus RSV (respiratory syncytial virus infection) Sleep disorder breathing Neurogenic claudication due to lumbar spinal stenosis Anemia Near syncope Hypotension Acute on chronic anemia Shortness of breath Pneumonia Transaminitis Respiratory failure requiring intubation Acute kidney failure Renal failure Atrial flutter with rapid ventricular response Nonobstructive atherosclerosis of coronary artery Volume overload Diastolic dysfunction Hypertensive heart disease Acute kidney injury (nontraumatic) Acute necrotizing pancreatitis Hemorrhagic shock Acute encephalopathy Pleural effusion due to pancreatitis Acute on chronic diastolic CHF (congestive heart failure) Sepsis due to pneumonia Hypoxia Hypoxia Anemia Pulmonary emboli Pedal edema Hemoptysis Left-sided epistaxis Right hip pain Osteonecrosis of both hips Necrotizing pancreatitis Heme positive stool On home oxygen therapy 2 LPM at HS Hepatic steatosis CAD (coronary artery disease) GERD (gastroesophageal reflux disease) controlled, stable per pt Kidney disease following with [facility] Nephrology. Plaque psoriasis Hx of seasonal allergies Spinal stenosis History of shingles 05/2022, PRN gabapentin for chronic right eye irritation/pain from shingles Surgical History History of exploratory laparotomy History of cardiac catheterization 02/2023 [facility]. no stents. History of back surgery lumbar > "bone spur shaving" Hx of arthroscopic knee surgery Left Hx of foot surgery Left Hx of inguinal hernia repair History of esophagogastroduodenoscopy (EGD) Family History Father Diabetes Social History Smoking Status: Former smoker Tobacco Type: Cigarettes Cigarettes Per Day: .5 pack a day; Second Hand Exposure: No; Do You Dip or Chew Tobacco: No; Hx Alcohol Use: No Hx Substance Use: No Preferred Language: Turkish Communication Ability: Effective Thermoplastic Technician Required: No Beliefs That Will Affect Care: None Current Living Situation: Family Current Living Situation Comment: Living with sister and brotherhood s/p discharge from [facility] 03/26/2025 Other Information That Helps Us Care for You: No Feels Safe at Home: Yes Safety Concerns: Feels Safe At This Time Assistive Devices: Walker and Wheelchair Physical Exam Physical Exam: Pleasant man in no distress Constitutional: WD/WN, vitals as above Neck: trachea midline, no thyromegaly Respiratory: normal respiratory effort, lungs clear to auscultation Cardiovascular: RRR, no murmur, no edema Gastrointestinal (Abdomen): Percussion/Palpation: + abdomen tender and abdomen soft Results & Data Vital Signs (Past 12 Hours) Vital Signs Temp Pulse Resp BP Pulse Ox O2 Del Method 04/09/25 07:05 37.2 C 103 H 16 106/64 92 Room Air 04/09/25 05:47 99 H 16 104/65 94 Room Air 04/08/25 20:51 98 H 100/62 04/08/25 20:10 Room Air 04/08/25 20:05 36.8 C 102 H 16 104/64 92 Room Air Laboratory Results 04/09/25 04/08/25 Range/Units 05:16 14:25 WBC 13.29 H (4.8-10.8) K/ul RBC 2.49 L (4.70-6.10) M/uL Hgb 7.6 L (14.0-18.0) g/dl Hct 24.3 L (42.0-52.0) % MCV 97.6 (80.0-100.0) fL MCH 30.5 (25.0-34.0) pg MCHC 31.3 L (32.0-36.0) g/dL RDW Std Deviation 60.6 H (36.4-46.3) fL RDW Coeff of Rogelio 17.0 H (11.5-14.5) % Plt Count 621 H (130-400) K/uL MPV 10.8 (9.4-12.4) fL Immature Gran % (Auto) 0.8 % Neut % (Auto) 67.4 % Lymph % (Auto) 10.5 % Pine % (Auto) 18.6 % Eos % (Auto) 2.3 % Baso % (Auto) 0.4 % Neut # (Auto) 8.97 H (1.40-6.50) K/uL Lymph # (Auto) 1.39 (1.20-3.40) K/uL Pine # (Auto) 2.47 H (0.11-0.59) K/uL Eos # (Auto) 0.30 (0.00-0.50) K/uL Baso # (Auto) 0.05 (0.00-0.20) K/uL Immature Gran # (Auto) 0.11 (0.01-0.20) K/uL Polychromasia 1+ Sodium 138 (136-145) mmol/L Potassium 3.7 (3.5-5.1) mmol/L Chloride 105 (98-107) mmol/L Carbon Dioxide 26 (21-32) mmol/L Anion Gap 7 (3-11) BUN 23 (6-23) mg/dl Creatinine 0.75 (0.6-1.4) mg/dl Est Cr Clr Drug Dosing 116.9 ml/min eGFR 102.67 BUN/Creatinine Ratio 30.7 H (10-20) Glucose 92 (70-99(Fasting)) mg/dl Calcium 8.8 (8.6-10.3) mg/dl Stool Occult Bld Scrn Positive A (Negative) Diagnostic Findings Abdomen/Pelvis CT 03/27/25 05:30 EXAM: CT abd pelvis IV con only CLINICAL HISTORY: wound drainage s/p wound vac removal TECHNIQUE: Contrast-enhanced CT of the abdomen and pelvis was performed, with the following protocol: axial images and reconstructed coronal and sagittal images. Intravenous contrast was administered. One of the following dose reduction techniques was utilized for this exam: Automated exposure control, adjustment of the mA and/or kV according to patient size, and use of iterative reconstruction. COMPARISON: prior CT 02/23/2025. FINDINGS: OBX.5.1OBX.5.1.1Properly positioned interpedicular screws at L3, L4 /OBX.5.1.1OBX.5.1.2 L5 levels./OBX.5.1.2/OBX.5.1 A properly positioned infrarenal IVC filter A properly positioned left lumbar region drainage tube OBX.5.1OBX.5.1.1 Regression of size of encapsulated fluid collection in mid abdomen /OBX.5.1.1OBX.5.1.2 left lumbar region measuring about 79x42 mm with multiple air foci within./OBX.5.1.2/OBX.5.1 Unchanged multiple encapsulated fluid collections involving perisplenic, left paracolic spaces, and anterior to abdominal aorta. Interval resolution of collection in transverse mesocolon. Unchanged multiple enlarged surrounding lymph nodes, ranging in size from 5-15 mm Unchanged haziness of the surrounding fat planes. New finding of fat stranding with multiple air foci in the anterior abdominal wall in the umbilical region. Still seen normal remaining pancreatic tissue in the region of the head. No longer seen the previously described moderate pericardial effusion. Minimal bilateral pleural effusion. Abdomen: Liver: Normal in size, shape, and density. No focal lesions, cysts, or masses were identified. Hepatic vasculature and biliary ducts are unremarkable. Gallbladder and Biliary System: The gallbladder is normal in size and shape. No wall thickening, pericholecystic fluid, or gallstones were identified. The common bile duct is normal in caliber without dilation. Spleen: Normal in size, shape, and density. No splenic lesions or masses were identified. Appendix: Not visualized. Kidneys and Adrenal Glands: New finding of mild prominence of right pelvicalyceal system and ureter caused by inflammatory changes in retroperitoneum at L4-L5 level. Both kidneys are normal in size, shape, and position. Cortical thickness is within normal limits. No renal calculi. Adrenal glands are unremarkable with no evidence of masses or hyperplasia. Pelvis: Urinary Bladder: Normal in contour and wall thickness. No intraluminal lesions were identified. Prostate: Normal in size and contour. No focal lesions or masses were identified. Seminal Vesicles: Normal in size and appearance. No abnormalities were noted. Rectum and Sigmoid Colon: Normal wall thickness and no evidence of mass. Bowel: The visualized bowel loops are normal in caliber and appearance. No evidence of bowel obstruction or wall thickening. Bones and Soft Tissues: Diffuse osteopenia. Spondylotic changes in thoracolumbar spine. Mild anterior wedging in T12-L2 vertebral bodies, stable. Atherosclerotic changes in the abdominal aorta and its branches. Pelvic bones and soft tissues are unremarkable. No fractures or abnormal masses were identified. IMPRESSION: OBX.5.1OBX.5.1.11. Regression of size of encapsulated fluid collection in mid abdomen /OBX.5.1.1OBX.5.1.2 left lumbar region measuring about 79x42 mm with multiple air foci within./OBX.5.1.2/OBX.5.1 2. Unchanged multiple encapsulated fluid collections involving the perisplenic, left paracolic spaces, and anterior to the abdominal aorta. 3. Interval resolution of collection in transverse mesocolon. 4. Unchanged multiple enlarged surrounding lymph nodes, ranging in size from 5-15 mm 5. New finding of fat stranding with multiple air foci in the anterior abdominal wall in the umbilical region. 6. Interval resolution of moderate pericardial effusion. 7. Minimal bilateral pleural effusion (regression). 8. New finding of mild prominence of right pelvicalyceal system and ureter caused by inflammatory changes in retroperitoneum at L4-L5 level. 9. A properly positioned infrarenal IVC filter. 10. A properly positioned left lumbar region drainage tube. Electronically signed by Deo Brenner 03-27-2025 09:16 AM Venous Doppler Study 03/29/25 11:07 LEFT LOWER EXTREMITY VENOUS DOPPLER CLINICAL HISTORY: Left lower extremity swelling. COMPARISON STUDY: Bilateral lower extremity venous Doppler ultrasound February 02, 2025. TECHNIQUE: Sonography of the deep venous system of the left lower extremity was performed. Compression and augmentation were evaluated. FINDINGS: The left common femoral, superficial femoral and popliteal veins were compressible. Augmentation was normal. Flow was shown within the deep calf vessels. IMPRESSION: No evidence of deep venous thrombus within the left lower extremity. ACT 112: Negative or not required by law. Electronically signed by: Quan Tripp M.D. 03/29/2025 3:19 PM
--- NOTE | 2025-04-09 12:56 | Hospitalist Progress Note ---
Date of Service April 09, 2025 Assessment & Plan (1) Sepsis: (2) Wound, open, abdominal wall, anterior with complication: (3) Electrolyte abnormality: (4) Iron deficiency anemia: (5) Reactive thrombocytosis: (6) Pressure injury of sacral region, stage 1: (7) Intra-abdominal abscess post-procedure: (8) Chronic pain syndrome: (9) Peripheral neuropathy: (10) Chronic obstructive pulmonary disease: (11) History of Clostridioides difficile colitis: (12) Paroxysmal SVT (supraventricular tachycardia): Plan 59 year old male with PMH significant for nonocclusive CAD, PVD, HTN, HLD, COPD, SAROJ on CPAP, hepatic steatosis, anemia with GI bleed in Sep, and extensive abdominal problems requiring multiple hospitalizations as detailed below that presented to the ED on 03/27/2025 with increased drainage from his abdominal wound and is admitted for this and need for skilled nursing placement. Refer to progress note of 03/28/25 for synopsis of recent hospitalizations at [facility] [place] from 10/2024 till 02/2025 and had procedures at [facility] [place] Sepsis POA Superficial Surgical Wound Infection C diff colitis Severe Necrotizing Pancreatitis Likely secondary to ongoing intraabdominal infection Leukocytosis, tachycardia, tachypnea present on admission CT abdomen with regression of size of encapsulated fluid collection in mid abdomen; unchanged multiple encapsulated fluid collections; new finding of fat stranding with multiple air foci in anterior abdominal wall in umbilical region; interval resolution of moderate pericardial effusion; regression of bilateral pleural effusion; new finding of mild prominence of right pelvicalyceal system and ureter caused by inflammatory changes in retroperitoneum at L4-L5 level Recent abx at [facility] [place] and [facility]: cefepime 2g q8hr through 03/26, dapto 900mg daily through 03/26, PO vanc 125mg QID through 03/06 followed by daily through 04/02 Infectious disease evaluated the patient on 04/07; recommended to be placed on ciprofloxacin, Flagyl and linezolid for total of 14 days; repeat CT scan in about 4 weeks. Possible transfer to [facility] [place] if there is any clinical worsening. Gen surgery evaluated, recommends BID dressing changes, f/u w/ [facility] IR team for left drain mx, f/u w/ [facility] Sx team on DC. continue local wound care Continue to monitor drainage and wound care WOCN on board, Ambulatory Dysfunction Chronic Pain Syndrome Patient with profound weakness in setting of recurrent hospitalizations and illness Ambulatory dysfunction made worse by neuropathic pain, nociceptive pain in back had trial of oxycodone, Suboxone; transitioned to dialuaid for pain control as per palliative care History of PE: Originally dx on 01/03 and additional PE identified on 01/23. Continue Eliquis History of SVT During 02/23-03/06 admission at [facility] [place] patient had two episodes of SVT requiring adenosine Evaluated by EP and Cardiology who increased metoprolol dose and recommended close outpt follow up Continue metoprolol Chronic Normocytic anemia Thrombocytosis Got 1 pRBC, Hb again below 7 on 04/04, transfuse 1 more unit prbc, FOBT positive. Evaluated by GI on 04/09/2025; no plans for endoscopy. Stage 1 sacral pressure ulcer WOCN consult Turn and reposition q2hr Chronic diastolic CHF Monitor volume status COPD Chronic, stable per patient Continue Trelegy inhaler History of GI bleed Continue pantoprazole Code status- dnr/dni DVT ppx- Eliquis Time spent evaluating patient, direct bedside care, chart review, placing orders, interpretation of diagnostic studies, discussion with consultants, patient, and family members, as well as other required patient management activities is 50 minutes Please note the above document was generated using voice recognition software. It may contain grammatical, syntax or spelling errors. Any formal questions or concerns about the content, text or information contained within the body of this dictation should be directly addressed to the provider for clarification Admission and Anticipated Discharge Date Admission Date: March 27, 2025 Subjective Patient seen and examined at bedside. He is sitting up on the chair at the side of food comfortably; not in distress. No significant events overnight Review of Systems Review of Systems: All systems reviewed & are unremarkable except as noted in Subjective Physical Exam Physical Exam: Constitutional: Alert, nontoxic, slightly pale HEENT: Mucous membranes moist. Lungs: Clear to auscultation, decreased, no wheezes rales or rhonchi CV: S1-S2, regular Abdomen: Soft, nontender, nondistended, dressing over anterior abd all incision with tiny soakage. Left lower flank drain in situ with pus Extremities: trace ble edema (Lt > Rt) Neuro: No focal deficits, General Weakness Psych: Cooperative, normal mood Results & Data Results & Data Vital Signs (Past 12 Hours) Vital Signs Temp Pulse Resp BP Pulse Ox O2 Del Method 04/09/25 07:05 37.2 C 103 H 16 106/64 92 Room Air 04/09/25 05:47 99 H 16 104/65 94 Room Air (10) Chronic obstructive pulmonary disease COPD type: COPD with acute exacerbation Qualified Code(s): J44.1 - Chronic obstructive pulmonary disease with (acute) exacerbation
--- NOTE | 2025-04-09 14:26 | Communication Note ---
Palliative Care Note Patient seen and examined at bedside. Patient comfortable this morning, minimal to no myoclonus off of suboxone. Dilaudid ineffective for pain. Will increase dilaudid dosing from 2mg to 4mg (due to no noticeable effect per patient) and structural welder response in AM (order placed). Recs relayed to primary team. Date of Service: April 09, 2025
--- NOTE | 2025-04-10 10:15 | Gastroenterology Progress Note ---
Date of Service April 10, 2025 Assessment & Plan (1) Iron deficiency anemia: Plan: 59 year old male with history of tobacco use, alcohol use disorder, obesity, COPD, HTN, CHF, recent admissions related to atrial flutter, ATN w/ renal failure requiring dialysis, necrotizing pancreatitis transferred to [facility] [place] 01/31 for hemorrhagic pancreatitis requiring prolonged ICU admission, OR for exploration on 12/13 for concern of abdominal compartment syndrome, abdominal closure on 12/19 with bridging mesh and drain placement, discharged to SNF on 01/31 and readmitted to [facility] 02/02 for fluid overload, sepsis, c.diff, transferred to [facility] [place] 02/23 w/ splenic infarct and retroperitoneal fluid collection s/p peripancreatic drain w/ splenic abscess aspiration w/ evidence of pancreatic colon fistula admitted 03/27 w/ increased output from abdominal drain. 1. MARAH and heme-positive stools - No apparent GI bleeding, presently passing brown stool - No signs of active/acute GI bleeding - No current indication for endoscopic evaluation - Continue supportive measures - Trend H&H - Transfuse PRN per primary team - Continue oral Pantoprazole - Anemia is likely multifactorial given his complex health history and prolonged admission Recall GI as needed. I spent a total of 40 minutes on the date of service in review of patient's record, and previously obtained information in person and appropriate medical visit, discussion and education of plan, with patient and/or caregiver, placing orders for tests/referral/procedures as medically necessary and documentation of pertinent clinical information in patient's medical records for their visit today. Thank you for allowing us to participate in the care of this patient. Please call with any acute changes, questions or concerns. Please see addendum below with additional recommendation from my supervising physician. Admission and Anticipated Discharge Date Admission Date: March 27, 2025 Supervising Physician Co-Signing Physician Notes Heme positive stool though stools are brown by nursing report. Fairly recent upper and lower endoscopy. No plan for any endoscopic intervention. Transfuse as needed. Reconsult if evidence of zoya melena or hematochezia. Anemia likely multifactorial including anemia of chronic disease. Subjective 59 year old male with history of tobacco use, alcohol use disorder, obesity, COPD, HTN, CHF, recent admissions related to atrial flutter, ATN w/ renal failure requiring dialysis, necrotizing pancreatitis transferred to [facility] [place] 12/04- 01/31 for hemorrhagic pancreatitis requiring prolonged ICU admission, OR for exploration on 12/13 for concern of abdominal compartment syndrome, abdominal cl osure on 12/19 with bridging mesh and drain placement, discharged to SNF on 01/31 and readmitted to [facility] 02/02 for fluid overload, sepsis, c.diff, transferred to [facility] [place] 02/23 w/ splenic infarct and retroperitoneal fluid collection s/p peripancreatic drain w/ splenic abscess aspiration w/ evidence of pancreatic colon fistula admitted 03/27 w/ increased output from abdominal drain. GI was asked to evaluate for MARAH and heme positive stools. This AM he reports that he is moving his bowels daily. Brown stools. No report of black or bloody stools. EGD 2024: Small hiatal hernia. - Esophageal ulcer with no stigmata of recent bleeding. - LA Grade C reflux esophagitis with no bleeding. - Acute gastritis, characterized by erythema and congestion (edema). Biopsied. - Normal examined duodenum. Colonoscopy 2024: The examined portion of the ileum was normal. - The examination was otherwise normal on direct and retroflexion views. - Four medium (7-9 mm) polyps in the transverse colon, removed with a cold snare. Resected and retrieved. - One medium (7-9 mm) polyp in the transverse colon, removed with a hot snare. Resected and retrieved. - Non-bleeding hemorrhoids. - Diverticulosis in the sigmoid colon. Review of Systems Review of Systems: All other findings negative except as noted in HPI. Physical Exam Constitutional: WD/WN, vitals as above Skin: no rashes, warm and dry Results & Data Results & Data Vital Signs (Past 12 Hours) Vital Signs Temp Pulse Pulse Resp BP Pulse Ox O2 Del Method 04/10/25 07:43 99.0 F 96 H 96 H 16 104/67 94 Room Air PG Care Time/CCT Total # of Minutes Spent Total Time Spent with Patient: Total time spent is greater than 50% in coordination of care (as documented) at patient's floor/unit and/or counseling patient: Coding Level of Care Code 72041 SUB INP/OBS CARE 2/35MIN Diagnoses Iron deficiency anemia D50.9
--- NOTE | 2025-04-10 12:43 | Hospitalist Progress Note ---
Date of Service April 10, 2025 Assessment & Plan (1) Sepsis: (2) Wound, open, abdominal wall, anterior with complication: (3) Electrolyte abnormality: (4) Iron deficiency anemia: (5) Reactive thrombocytosis: (6) Pressure injury of sacral region, stage 1: (7) Intra-abdominal abscess post-procedure: (8) Chronic pain syndrome: (9) Peripheral neuropathy: (10) Chronic obstructive pulmonary disease: (11) History of Clostridioides difficile colitis: (12) Paroxysmal SVT (supraventricular tachycardia): Plan 59 year old male with PMH significant for nonocclusive CAD, PVD, HTN, HLD, COPD, SAROJ on CPAP, hepatic steatosis, anemia with GI bleed in Sep, and extensive abdominal problems requiring multiple hospitalizations as detailed below that presented to the ED on 03/27/2025 with increased drainage from his abdominal wound and is admitted for this and need for longterm placement. Refer to progress note of 03/28/25 for synopsis of recent hospitalizations [place] [facility] [place] [facility] [place] and had procedures [place] [facility] [place] Sepsis POA Superficial Surgical Wound Infection C diff colitis Severe Necrotizing Pancreatitis Likely secondary to ongoing intraabdominal infection Leukocytosis, tachycardia, tachypnea present on admission CT abdomen with regression of size of encapsulated fluid collection in mid abdomen; unchanged multiple encapsulated fluid collections; new finding of fat stranding with multiple air foci in anterior abdominal wall in umbilical region; interval resolution of moderate pericardial effusion; regression of bilateral pleural effusion; new finding of mild prominence of right pelvicalyceal system and ureter caused by inflammatory changes in retroperitoneum at L4-L5 level Recent [place] [facility] [place] [facility]: cefepime 2g q8hr through 03/26, dapto 900mg daily through 03/26, PO vanc 125mg QID through 03/06 followed by daily through 04/02 Infectious disease evaluated the patient on 04/07; recommended to be placed on ciprofloxacin, Flagyl and linezolid for total of 14 days; repeat CT scan in about 4 weeks. Possible transfer to [facility] if there is any clinical worsening. Gen surgery evaluated, recommends BID dressing changes, f/u w/ [facility] IR team for left drain mx, f/u w/ [facility] Sx team on DC. continue local wound care Continue to monitor drainage and wound care WOCN on board, Ambulatory Dysfunction Chronic Pain Syndrome Patient with profound weakness in setting of recurrent hospitalizations and illness Ambulatory dysfunction made worse by neuropathic pain, nociceptive pain in back had trial of oxycodone, Suboxone; transitioned to dialuaid for pain control as per palliative care History of PE: Originally dx on 01/03 and additional PE identified on 01/23. Continue Eliquis History of SVT During 02/23-03/06 [place] [facility] had two episodes of SVT requiring adenosine Evaluated by EP and Cardiology who increased metoprolol dose and recommended close outpt follow up Continue metoprolol Chronic Normocytic anemia Thrombocytosis Got 1 pRBC, Hb again below 7 on 04/04, transfuse 1 more unit prbc, FOBT positive. Evaluated by GI on 04/09/2025; no plans for endoscopy. Stage 1 sacral pressure ulcer WOCN consult Turn and reposition q2hr Chronic diastolic CHF Monitor volume status COPD Chronic, stable per patient Continue Trelegy inhaler History of GI bleed Continue pantoprazole Code status- dnr/dni DVT ppx- Eliquis Time spent evaluating patient, direct bedside care, chart review, placing orders, interpretation of diagnostic studies, discussion with consultants, patient, and family members, as well as other required patient management activities is 50 minutes Please note the above document was generated using voice recognition software. It may contain grammatical, syntax or spelling errors. Any formal questions or concerns about the content, text or information contained within the body of this dictation should be directly addressed to the provider for clarification Admission and Anticipated Discharge Date Admission Date: March 27, 2025 Subjective Patient seen and examined at bedside. He is sitting up on the chair comfortably; denies any pain or discomfort. No significant events overnight Review of Systems Review of Systems: All systems reviewed & are unremarkable except as noted in Subjective Physical Exam Physical Exam: Constitutional: Alert, nontoxic, slightly pale HEENT: Mucous membranes moist. Lungs: Clear to auscultation, decreased, no wheezes rales or rhonchi CV: S1-S2, regular Abdomen: Soft, nontender, nondistended, dressing over anterior abd all incision with tiny soakage. Left lower flank drain in situ with pus Extremities: trace ble edema (Lt > Rt) Neuro: No focal deficits, General Weakness Psych: Cooperative, normal mood Results & Data Results & Data Vital Signs (Past 12 Hours) Vital Signs Temp Pulse Pulse Resp BP Pulse Ox O2 Del Method 04/10/25 07:43 37.2 C 96 H 96 H 16 104/67 94 Room Air (10) Chronic obstructive pulmonary disease COPD type: COPD with acute exacerbation Qualified Code(s): J44.1 - Chronic obstructive pulmonary disease with (acute) exacerbation
--- NOTE | 2025-04-10 14:13 | Communication Note ---
Patient seen and examined at bedside. Patient doing well today, states dilaudid works well for his pain. Denies significant myoclonus. Would discharge patient with 4mg q4hr prn of dilaudid PO, 14 day supply if able. Will need follow up with palliative care vs. pain management outpatient for further prescriptions. Date of Service: April 10, 2025
[2025-04-11 07:01] VITALS: RESP 18
[2025-04-11] MEDS: OPTIRAY 320 100ml IV ONE (08:22)
[2025-04-11 08:25] LABS: Hypersegmented Neutrophils 1+
--- NOTE | 2025-04-11 09:07 | CT Scan Report ---
CT SCAN OF THE ABDOMEN AND PELVIS WITH IV CONTRAST CLINICAL HISTORY: Increased purulent drainage from anterior abdominal wall. COMPARISON STUDY: CT of the abdomen and pelvis March 27, 2025. TECHNIQUE: Following the IV administration of 94 cc of Optiray 320, CT scan of the abdomen and pelvi s is performed from the lung bases to the proximal femora. Images are reviewed in the axial, sagittal , and coronal planes. IV contrast was administered without complication. A dose lowering technique wa s utilized adhering to the principles of ALARA. CT DOSE: 1333.94 mGy.cm FINDINGS: A small left pleural effusion with pleural thickening is unchanged. A trace right pleural e ffusion is also unchanged. Subpleural opacities favor atelectasis. No pneumatosis or portal venous ga s is present. There are no hepatic lesions. Severe narrowing of the portosplenic confluence and main portal vein has mildly increased since CT of March 27, 2025. The appearance of the pancreas is unchange d with evidence for pancreatic necrosis. A left anterior pararenal space drain remains in place. The fluid collection has decreased in size since CT of March 27, 2025, now measuring 4.6 x 1.9 cm, previous ly 4.9 x 2.1 cm. A perisplenic left upper quadrant fluid collection measuring 4.4 x 3 cm has decrease d in size, previously measuring 5.9 x 3.8 cm. This contains several locules of extraluminal gas. An i ll-defined left anterior abdominal gas and fluid containing collection has also decreased in size. Th e largest component measures 3.5 x 2.9 cm, previously 4.7 x 3.4 cm. This extends toward the anterior abdominal wall. Associated locules of extraluminal gas have decreased in amount. Abdominal wall wound is noted. Associated gas and fluid within the anterior abdominal wall has decreased since prior CT. A small amount of ascites has developed since prior CT. Loculated fluid within the right anterior abd omen has developed with mild peripheral enhancement. The largest pocket measures 5.6 x 3.8 cm. This p ocket is adjacent to multiple small bowel loops and along anterior aspect of the ascending colon. No drainable fluid collections are present. Bladder wall thickening is accentuated by underdistention. N o evidence for a bowel obstruction. Colonic diverticulosis without evidence for acute diverticulitis. IVC filter is in place. IMPRESSION: 1. No significant change in appearance of the pancreas with evidence for previous pancreatic necrosis . Decrease in size of the peripancreatic/left anterior pararenal space gas and fluid containing colle ction which contains a drain. Several additional gas and fluid containing left upper quadrant and abd ominal wall fluid collections have decreased in size since CT of March 27, 2025. Redemonstration of an anterior abdominal wall wound with decrease in size of associated gas and fluid containing collection s. The findings suggest an underlying fistula, as before. 2. Interval development of a small amount of ascites and a small rim-enhancing right anterior abdomin al fluid collection adjacent to several bowel loops which demonstrate peripheral enhancement. Sterili ty cannot be assessed by CT. No new drainable fluid collections. 3. No evidence for a bowel obstruction. 4. Increase in severe narrowing of the portosplenic confluence and main portal vein. 5. No change in a small left pleural effusion, likely chronic. ACT 112: Negative or not required by law. Electronically signed by: Quan Tripp M.D. 04/11/2025 9:04 AM
--- NOTE | 2025-04-11 09:36 | Gastroenterology Progress Note ---
Date of Service April 11, 2025 Assessment & Plan (1) Iron deficiency anemia: Plan: 59 year old male with history of tobacco use, alcohol use disorder, obesity, COPD, HTN, CHF, recent admissions related to atrial flutter, ATN w/ renal failure requiring dialysis, necrotizing pancreatitis [place] [facility] [place] for hemorrhagic pancreatitis requiring prolonged ICU admission, OR for exploration on 12/13 for concern of abdominal compartment syndrome, abdominal closure on 12/19 with bridging mesh and drain placement, discharged to SNF on 01/31 and readmitted to [facility] 02/02 for fluid overload, sepsis, c.diff, [place] [facility] [place] w/ splenic infarct and retroperitoneal fluid collection s/p peripancreatic drain w/ splenic abscess aspiration w/ evidence of pancreatic colon fistula admitted 03/27 w/ increased output from abdominal drain. 1. MARAH and heme-positive stools - No apparent GI bleeding, presently passing brown stool - No signs of active/acute GI bleeding - No current indication for endoscopic evaluation - Continue supportive measures - Trend H&H - Transfuse PRN per primary team - Continue oral Pantoprazole - Anemia is likely multifactorial given his complex health history and prolonged admission Recall GI as needed. I spent a total of 40 minutes on the date of service in review of patient's record, and previously obtained information in person and appropriate medical visit, discussion and education of plan, with patient and/or caregiver, placing orders for tests/referral/procedures as medically necessary and documentation of pertinent clinical information in patient's medical records for their visit today. Thank you for allowing us to participate in the care of this patient. Please call with any acute changes, questions or concerns. Please see addendum below with additional recommendation from my supervising physician. Admission and Anticipated Discharge Date Admission Date: March 27, 2025 Subjective Pt was seen and evaluated, chart reviewed. Reports he had a large brown BM this AM. No report of black/bloody stools. Tolerating PO intake. Awaiting pain medication this AM. Review of Systems Review of Systems: All other findings negative except as noted in HPI. Physical Exam Constitutional: WD/WN, vitals as above Gastrointestinal (Abdomen): Percussion/Palpation: abdomen soft Skin: no rashes, warm and dry Results & Data Results & Data Vital Signs (Past 12 Hours) Vital Signs Temp Pulse Resp BP Pulse Ox 04/11/25 06:58 97.9 F 88 18 118/74 95 Laboratory Results 04/09/25 Range/Units 05:16 Hypersegmented Neuts 1+ PG Care Time/CCT Total # of Minutes Spent Total Time Spent with Patient: Total time spent is greater than 50% in coordination of care (as documented) at patient's floor/unit and/or counseling patient: Coding Level of Care Code 70476 SUB INP/OBS CARE 2/35MIN Diagnoses Iron deficiency anemia D50.9
[2025-04-11 14:52] VITALS: BP 133/71; PULSE 106; TEMP 97.5; O2SAT 96
--- NOTE | 2025-04-11 15:12 | Discharge Summary ---
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 Patient reports that he noticed increased drainage from his abdominal wound starting on Thursday while at [facility]. He reports that it was able to be managed with daily dressing changes. He was discharged from [facility] to home and was told he would be getting set up with home health but never did. Then this morning around 0 he reports significant drainage that saturated his dressing and clothing. The drainage is purulent and malodorous but patient notes that is how it has been. He reports 5/10 discomfort at the wound for which he was taking oxycodone with little improvement. He also reports intermittent jolting pain at his left flank near his drain that started a few days ago. He notes that the jolts occur when he is at rest and with any movement. He denies any pulling on the drain that he is aware of. He also reports soreness on his sacrum from laying in bed. He denies fevers, chills, chest pain, palpitations, SOB outside of his baseline with COPD, dysuria, diarrhea. He still notes significant weakness where he is able to ambulate with a walker but needs one assist following close behind. He has not had any falls but notes he is worried about falling at home because he doesn't have proper support. He lives with his mother, who is unable to provide care, and his sister and brother in law who both work during the day. Recent hospitalization synopsis: -Hospitalized at [facility] from 11/18-12/04/2024 for acute on chronic hypoxic/hypercarbic respiratory failure secondary to a COPD exacerbation complicated by acute metabolic encephalopathy, alcohol withdrawal transiently requiring mechanical ventilation, aspiration pneumonia, urinary retention, and acute renal failure requiring HD -Transferred to [facility] on 12/04/2024 due to acute alcoholic hemorrhagic pancreatitis which required IR embolization -Hospitalized at [facility] from 12/04-01/31/2025 with prolonged ICU admission, OR exploration on 12/13, abdominal closure on 12/19 with mesh and drain placement, IR drain into pseudocyst and upsized on 01/20 -Discharged to [facility] on 01/31/2025 -Transferred to [facility] ED on 02/02/2025 for hypotension and worsening hypoxic respiratory failure -Hospitalized at [facility] from 02/02-02/23/2025 for severe sepsis secondary to pneumonia vs necrotizing pancreatitis with fluid overload and C diff infection -Transferred to [facility] on 02/23/2025 due to increasing leukocytosis without clear source and need for higher level of care -Hospitalized at [facility] from 02/23-03/06/2025 and found to have splenic infarct and retroperitoneal fluid collection with placement of peripancreatic drain and aspiration of splenic abscess on 02/27, persistent pancreatic colon fistula noted, IR drain noted to have hole and kinked requiring drain exchange by IR on 03/06 -Discharged to [facility] on 03/06/2025 -Discharged to home on 03/26/2025 Admission Exam Per Admitting Provider General/Psych: WD/WN, laying in bed, appears uncomfortable, conversing easily Head: normocephalic, atraumatic Eyes: normal inspection, PERRL, conjunctivae pink, anicteric sclerae ENT: external ear and nose normal, oropharynx normal Neck: normal visual inspection, trachea midline Respiratory: normal respiratory effort, lungs clear to auscultation, no whee ze/rales/rhonchi, no accessory muscle use Cardiovascular: regular rate and rhythm, no murmur/rub/gallop Extremities: no cyanosis or clubbing, normal peripheral pulses, 1+ right LE edema, 2+ left LE edema Abdomen/GI: normal bowel sounds, distended, tenderness around abdominal wound at mid abdomen Neurologic/MSK: A+Ox3, motor strength 4/5, moves all extremities Skin: no rashes, normal color, warm and dry, sacral blanchable erythema without open wound, peritoneal drain sutured in left flank with surrounding gauze c/d/i, mid abdomen wound with purulent odorous drainage and moist pink base of wound and small amount of drainage on dressing Principal Diagnosis Sepsis POA Superficial Surgical Wound Infection C diff colitis Severe Necrotizing Pancreatitis Discharge Exam Constitutional: Alert, nontoxic, slightly pale HEENT: Mucous membranes moist. Lungs: Clear to auscultation, decreased, no wheezes rales or rhonchi CV: S1-S2, regular Abdomen: Soft, nontender, nondistended, dressing over anterior abd all incision with soakage. Left lower flank drain in situ with pus Extremities: trace ble edema (Lt > Rt) Neuro: No focal deficits, General Weakness Psych: Cooperative, normal mood Discharge Data Allergies Allergy/AdvReac Type Severity Reaction Status Date / Time TONIA Inhibitors AdvReac Severe ALESSANDRO Verified 03/14/25 08:19 ARB-Angiotensin Receptor AdvReac Severe ALESSANDRO Verified 03/14/25 08:19 Antagonist prednisone AdvReac Mild "fred Verified 03/14/25 08:19 s" Consultations 03/27/25 10:29 ED Decision to Admit Stat 03/27/25 16:19 Consult General Surgery Routine 04/03/25 11:00 Consult Infectious Diseases Routine 04/08/25 16:03 Consult Gastroenterology Routine Ordered Studies 03/27/25 05:30 CT abd pelvis IV con only Stat 03/29/25 11:07 US venous duplex leg [US venous doppler LE LT] Routine 04/11/25 07:38 CT Abd and Pelvis [CT abd pelvis IV con only] Urgent Hospital Course (1) Sepsis: (2) Wound, open, abdominal wall, anterior with complication: (3) Electrolyte abnormality: (4) Iron deficiency anemia: (5) Reactive thrombocytosis: (6) Pressure injury of sacral region, stage 1: (7) Intra-abdominal abscess post-procedure: (8) Chronic pain syndrome: (9) Peripheral neuropathy: (10) Chronic obstructive pulmonary disease: (11) History of Clostridioides difficile colitis: (12) Paroxysmal SVT (supraventricular tachycardia): Plan 59 year old male with PMH significant for nonocclusive CAD, PVD, HTN, HLD, COPD, 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 Refer to progress note of 03/28/25 for synopsis of recent hospitalizations at [facility] and [facility] from 10/2024 till 02/2025 and had procedures at [facility] Sepsis POA Superficial Surgical Wound Infection C diff colitis Severe Necrotizing Pancreatitis Likely secondary to ongoing intraabdominal infection Leukocytosis, tachycardia, tachypnea present on admission CT abdome on admission=n with regression of size of encapsulated fluid collection in mid abdomen; unchanged multiple encapsulated fluid collections; new finding of fat stranding with multiple air foci in anterior abdominal wall in umbilical region; interval resolution of moderate pericardial effusion; regression of bilateral pleural effusion; new finding of mild prominence of right pelvicalyceal system and ureter caused by inflammatory changes in retroperitoneum at L4-L5 level Recent abx at [facility] and [facility]: cefepime 2g q8hr through 03/26, dapto 900mg daily through 03/26, PO vanc 125mg QID through 03/06 followed by daily through 04/02 During the hospitalization, general surgery and infectious disease was consulted for comanagement. Patient was managed with IV antibiotic with improvement in abdominal pain. He was afebrile for last several days of the hospitalization. He was tolerating diet. P alliative care was also consulted; CODE STATUS was changed to DNR/DNI. Repeat CT abdomen/pelvis showed interval improvement in the abscess size. Patient was discharged to rehab with instructions to follow-up with general surgery as outpatient. Please note the above document was generated using voice recognition software. It may contain grammatical, syntax or spelling errors. Any formal questions or concerns about the content, text or information contained within the body of this dictation should be directly addressed to the provider for clarification Total Time Total Time Spent Total Time Spent (In Minutes): 65 Total Time Includes: Examination of the Patient, Discharge Planning, Medication Reconciliation, Communication With Other Providers and Other Discharge Plan Discharge Items Patient Disposition: Transfer Nursing Home Fac Reason For Visit: WOUND DRAINAGE/INFECTION Discharge Diagnosis: (1) Sepsis: (2) Wound, open, abdominal wall, anterior with complication: (3) Electrolyte abnormality: (4) Iron deficiency anemia: (5) Reactive thrombocytosis: (6) Pressure injury of sacral region, stage 1: (7) Intra-abdominal abscess post-procedure: Plan: Drain placed by IR at [place] in flank (8) Chronic pain syndrome: (9) Peripheral neuropathy: (10) Chronic obstructive pulmonary disease: (11) History of Clostridioides difficile colitis: (12) Paroxysmal SVT (supraventricular tachycardia): Condition on Discharge: Fair Activity: As commented below Activity Comment: Increase as tolerated Non-emergency contact: Primary Care Provider Call non-emergency contact if: your symptoms worsen and your temperature is above 101 Follow-up/Referrals: Omer Wayne MD [Primary Care Provider] - Diet: Regular Addtl Attending Provider Instructions: You were admitted to the hospital due to abscess in your abdomen. You were evaluated by general surgery and infectious disease during the hospitalization. You are prescribed following medications; Take ciprofloxacin 500 mg twice daily for 10 days Take linezolid 600 mg twice daily for 10 days Take metronidazole 500 mg 3 times daily for 10 days Please follow-up with general surgery at [facility] as scheduled. You will need CT of the abdomen and pelvis in 3 weeks time to check on the abscesses in your abdomen. Please co-ordinate with rehab Wound care: To abdominal wound- clean with saline. Gently fill tunnel at 2 o' clock wth 1/4" Iodoform. Cover wound with Aquacel Ag and secure with Optifoam. Change twice a day. Recommend follow[facility]up at [facility]. Call [phone] for appointment Pending Studies at Discharge: No Stand-Alone Forms: My [facility] Skilled Items Patient informed of condition?: Yes DNR: No Discharge Level of Care: Skilled Communicable Disease: No Discharge Prognosis: Improving Lines: None Urinary Catheter: Yes Medications and DC Order Prescriptions: New acetaminophen [Tylenol Extra Strength] 500 mg Tablet 1,000 mg PO TID Qty: 300 0RF pregabalin [Lyrica] 100 mg Capsule 100 mg PO TID Qty: 90 0RF Advanced Probiotic 625 mg (10 billion cell) Capsule 1 cap PO DAILY Qty: 30 0RF lidocaine 5 % Adhesive Patch,Medicated 1 patch transdermal QAM Qty: 10 0RF metronidazole 500 mg Tablet 500 mg PO TID 10 Days Qty: 30 0RF ciprofloxacin HCl 500 mg Tablet 500 mg PO BID 10 Days Qty: 20 0RF linezolid 600 mg Tablet 600 mg PO BID 10 Days Qty: 20 0RF vancomycin 125 mg capsule 125 mg PO DAILY Qty: 14 0RF hydromorphone [Dilaudid] 2 mg Tablet 4 mg PO Q4 PRN (Reason: pain) Qty: 10 0RF docusate sodium 100 mg Capsule 100 mg PO BID Qty: 60 0RF polyethylene glycol 3350 [Miralax] 17 gram Powder In Packet 17 g PO DAILY Qty: 30 0RF Continued atorvastatin 80 mg tablet 80 mg PO DAILY Qty: 30 0RF thiamine HCl (vitamin B1) 100 mg Tablet 100 mg PO DAILY Qty: 30 0RF pantoprazole 40 mg tablet,delayed release (DR/EC) 40 mg PO DAILY Qty: 30 0RF folic acid 1 mg tablet 1 mg PO DAILY Qty: 30 0RF metoprolol succinate 25 mg tablet extended release 24 hr 75 mg PO BID Qty: 60 0RF albuterol sulfate 90 mcg/actuation HFA aerosol inhaler 2 puff INHALATION Q4 PRN (Reason: sob or wheezing ) Qty: 8.5 0RF simethicone 80 mg Tablet,Chewable 80 mg PO BID PRN (Reason: Constipation) Qty: 30 0RF Eliquis 5 mg tablet 5 mg PO BID Qty: 60 0RF Trelegy Ellipta 200-62.5-25 mcg blister with device 1 inh INHALATION DAILY Qty: 60 0RF Discontinued vancomycin 250 mg capsule 250 mg PO DAILY pregabalin 50 mg capsule 50 mg PO TID oxycodone 10 mg tablet 10 mg PO TID PRN (Reason: Pain) sertraline 50 mg tablet 50 mg PO DAILY Discharge Orders: Discharge Order (Routine); Ordered 04/11/25 Ordered By: Antelmo Toussaint Admission Data Admit Date/Time: 03/27/25 13:36 Attending Provider: Antelmo Toussaint Admit Provider: Shahana Cervantes Primary Care Provider: Omer Wayne Other Providers: Shahana Cervantes; Edgar Michel; Aleksandr Rothman; [facility]; Antonio Cedeño; Miles Ivey; Addison Neri I.; Jamaal Martinez II; Dominique Watkins; Yaniv Rothman; Danny Avery; Mauricio Nagy; Jeremías Tomlin; Marcell Lim Jr; [facility] Other Interventions: Discharge Summary Assessment (RN) Last Done: 04/11/25 13:18
--- NOTE | 2025-04-12 08:37 | Coding Query ---
CODING QUERY To promote full compliance with coding requirements relating to patient care, provider participation is requested in all cases of transport nurse uncertainty. Please assist us with the question(s) below: Coding Question(s): Sepsis POA is documented in the record including the Discharge Summary, and starting on the H&P there is documentation of, "Sepsis Likely secondary to ongoing intraabdominal infection as described above", and, " Sepsis secondary to intra-abdominal fluid collection/abscess with IR drain is placed", and documentation, as of the Discharge Summary of, "Principal Diagnosis Sepsis POA Superficial Surgical Wound Infection C diff colitis Severe Necrotizing Pancreatitis", and, "(1) Sepsis: (2) Wound, open, abdominal wall, anterior with complication", and, "(7) Intra-abdominal abscess post-procedure:". Please specify below, in your clinical opinion, regarding the most likely source/cause of Sepsis: ( ) Sepsis is most likely due to intra-abdominal infection/abscess. Please specify further below, in your clinical opinion: ( ) intra-abdominal infection/abscess is most likely a Postprocedural Complication ( ) intra-abdominal infection/abscess is Not a Postprocedural Complication ( X ) intra-abdominal infection/abscess is Other: Please Specify____unable to determine ( ) Sepsis is most likely due to Other: Please Specify Physician's Response(s): Thank you Aleyda Monzon Principal Diagnosis: "that condition established after study, to be chiefly responsible for occasioning the admission of the patient to the hospital for care." Co-Existing Principal Diagnosis: "when two or more diagnoses equally meet the criteria for principal diagnosis as determined by the circumstances of admission, diagnostic work up, and/or therapy provided, and the Alphabetic Index, Tabular List, or another coding guideline does not provide sequencing direction, any one of the diagnoses may be sequenced first." "When the physician has documented what appears to be a current diagnosis in the body of the record, but has not included the diagnosis in the final diagnostic statement, the physician should be asked whether the diagnosis should be added." (Source Coding [facility] 2 QTR90. p3-4) MTDD
== END 2025-04-11 15:25 | DRG 871 ==
LOC: ED 05:15 → SUATTDRO 13:36 → 2E 13:36 → 3E 03-29 19:59